=== PATIENT | female | born 1965 | race Caucasian/White ===

== ENCOUNTER → 2018-05-25 07:57 | Outpatient (CLI) | payer OTHER, SELFPAY | PROVIDERS: Visit Provider Obstetrics & Gynecology | DX: Z12.31 Encounter for screening mammogram for malignant neoplasm of breast (principal) | CPT/HCPCS: 77063; 77067 ==

== ENCOUNTER → 2018-06-15 15:47 | Outpatient (CLI) | payer OTHER, SELFPAY ==
[2018-06-15 17:02] LABS: AST(SGOT) 20 U/L (15-37); Alanine Aminotransfer ALT/SGPT 27 U/L (13-56); Albumin, Serum 3.9 g/dL (3.2-5.0); Alkaline Phosphatase 84 U/L (45-117); Amylase 89 U/L (25-115); Lipase 387 U/L (73-393); Protein, Total 6.9 g/dL (6.4-8.2)
== END ==
PROVIDERS: Visit Provider Urology
DX: R10.9 Unspecified abdominal pain (principal)
CPT/HCPCS: 36415; 80076; 82150; 83690

== ENCOUNTER 2019-02-14 21:26 | Inpatient (IN) | payer OTHER, SELFPAY ==
[2019-02-14 21:27] VITALS: BP 115/82; PULSE 80; RESP 18; TEMP 36.3; O2SAT 95; BMI 33.5
--- NOTE | 2019-02-14 22:18 | ED.DCSUM_ITS ---
- ER Visit Summary Date of Service: 02/14/19 Chief Complaint: Epigastric abdominal pain History of Present Illness: The patient is a 53 F history of prior pancreatitis after surgery. She is also had prior renal CA with a partial resection but did not need chemo or radiation. Patient states she is in epigastric abdominal pain for the last 3 days progressively getting worse today. Associated nausea and vomiting. No diarrhea. No melena. No fever. No trauma. No dysuria. States the pain is primarily epigastric and upper abdomen was scattered diffuse now. Similar to her prior pancreatitis. Physical Examination: Middle-aged female no acute distress vital signs are stable afebrile. Initial blood pressure 115/82. Patient does not look septic or toxic. No distress. HEENT exam unremarkable. Neck nontender no lymphadenopathy. Lungs clear to auscultation bilaterally. Heart regular rhythm no murmur. Abdomen soft. Nondistended. Normal bowel sounds. She is tender primarily in the epigastric region. There is no organomegaly or masses. The right lower quadrant is unremarkable. There is no Weir sign or McBurney's point tenderness. No hernias. No masses. No pulsatile masses. There is no signs of obstruction. Patient is moving all 4 extremities. Neurovascular intact. Back is nontender. Neurologically she is awake alert with no focal motor deficits. Test Results: CBC normal white count 8. Hemoglobin 12. Electrolytes normal nor mal creatinine and gap. Liver enzymes normal. Lipase elevated 21,544. Consistent with acute pancreatitis. Emergency Department Course and Treatment: Patient with primary epigastric and upper abdominal pain with a history of prior pancreatitis. Treated with IV fluids due to recent nausea and vomiting. Zofran for nausea and morphine for her pain. Repeat exam patient is doing well at 23:20 PM. She will also be given Toradol for pain. She is reluctant to be given narcotics even though should be given a low dose of morphine. Treatment Plan: I will speak to the hospitalist about admission. Disposition: Admission Impression: Acute abdominal pain secondary to acute pancreatitis History of prior pancreatitis This note was generated with [employer] dictation software. It may contain incorrect words, spelling, and punctuation that were not noted in review of the chart prior to signing ED Disposition - Plan for ED Patient: Referrals: Care Physician,No Primary [Primary Care Provider] -
[2019-02-14 22:44] LABS: Absolute Lymphocyte Count 1.14 X10^3/ul (0.83-4.51); Absolute Neutrophil Count 6.9 X10^3/uL (2.0-7.7); Basophil# 0.02 X10^3/uL; Basophil% 0.2 % (0-1); Eosinophil# 0.07 X10^3/uL; Eosinophils% 0.8 % (0-5); Hematocrit 34.6 % (37-47); Lymphocyte # 1.14 X10^3/ul (4.0); Lymphocyte % 12.8 % (19-41); Mean Corp Hgb Conc 34.7 g/gl (32-36); Mean Corpuscular Hgb 30.4 pg (27.0-32.0); Mean Corpuscular Volume 87.6 fL (81-99); Mean Platelet Vol. 9.7 fl (6.2-12.0); Monocyte# 0.75 X10^3/uL; Monocyte% 8.4 % (0-10); Neutrophil # 6.93 X10^3/uL (2.7-7.7); Neutrophil % 77.7 % (47-70); POSITIVE COUNT NO; POSITIVE DIFFERENTIAL NO; POSITIVE MORPHOLOGY NO; Platelet Count 176 K/mm3 (150-450); RBC Distribution Width CV 11.9 % (11.6-14.6); Red Blood Count 3.95 M/mm3 (4.2-5.4); White Blood Count 8.9 K/mm3 (4.4-11.0)
[2019-02-14] MEDS: Morphine 4 MG/ML Syringe IV (22:45)
[2019-02-14] MEDS: 0.9% Normal Saline 1,000 ML 1000 ML IV (22:45)
[2019-02-14] MEDS: Ondansetron 4 MG/2 ML Vial IV (22:45)
[2019-02-14 22:59] LABS: AST(SGOT) 21 U/L (15-37); Alanine Aminotransfer ALT/SGPT 24 U/L (13-56); Albumin, Serum 3.9 g/dL (3.2-5.0); Alkaline Phosphatase 79 U/L (45-117); Anion Gap 6 (5-15); BUN 15 mg/dL (7-18); BUN/Creat Ratio 15.8 RATIO (10-20); Bilirubin, Direct 0.11 mg/dL (0.00-0.30); Calcium,Total 8.8 mg/dL (8.5-10.1); Chloride 106 mmol/L (98-107); Creatinine, Serum 0.95 mg/dL (0.55-1.02); EST Glomerular Filtration Rate 65 mL/min (>60); Est Glom Filt Rate - Afr Amer 79 mL/min (>60); Estimated Creatinine Clearance 60.92 ml/min; Glucose 107 mg/dL (74-106); Lipase 21544 U/L (73-393); Potassium 3.7 mmol/L (3.5-5.1); Protein, Total 6.9 g/dL (6.4-8.2); Sodium Level 137 mmol/L (136-145)
--- NOTE | 2019-02-14 23:27 | PCM.HP.STD ---
Problem List (1) Pancreatitis Status: Acute Qualifiers: Chronicity: acute Pancreatitis type: unspecified pancreatitis type Acute pancreatitis complication: unspecified Qualified Code(s): K85.90 - Acute pancreatitis without necrosis or infection, unspecified (2) Obesity Status: Chronic Qualifiers: Obesity type: due to excess calories Obesity classification: adult class 1 (BMI 30 - 34.9) (3) Former tobacco use Status: Chronic (4) Renal cell cancer Status: Resolved Qualifiers: Laterality: right Qualified Code(s): C64.1 - Malignant neoplasm of right kidney, except renal pelvis (5) Iron deficiency anemia Status: Chronic Qualifiers: Iron deficiency anemia type: unspecified iron deficiency Qualified Code(s): D50.9 - Iron deficiency anemia, unspecified History of Present Illness Date of Admission: 02/14/19 Chief Complaint: Abdominal pain, nausea, emesis. The patient is a 53 y/o F w/ PMHx: Obesity, Former Tobacco use, Fe Deficiency Anemia, Hx of incidentally found R sided Renal Cell CA s/p partial resection following CT abd for acute pancreatitis 6 years prior following a uterine ablation who presents to the [facility] ED on 02/14/19 with history of recurrent similar onset epigastric severe, sharp, 10/10 abdominal pain, bloating sensation, nausea x 3 days, worsened on day of ED presentation with onset emesis with no fever, chills, diarrhea associated. Prior CT performed to assess pancreas 6 years prior with only noted renal CA findings, no pancreatic findings of note. She notes her cholesterol has been appropriate. She does not recall if she had a GB assessment prior. Denies heavy EtOH intake as possible etiology. Work-up in the ED included T 97.3, heart rate 80, BP 115/82, respiratory rate 18, 95% room air, CBC with WBC 8.9, hemoglobin 12, platelet 176 without market shift, CMP with glucose 107 otherwise not marked appearing, lipase [id number]. In the ED patient ministered normal saline, Zofran, morphine, Toradol. Upon evaluation patient notes she has clinically felt improved following pain regimen but still notably tender with palpation on examination. Past Medical History Past Medical History (Chronic Problems): Chronic Problems (Last Reviewed 07/11/18 @ 07:32 by Wen Kenny) Obesity (Chronic) Former tobacco use (Chronic) Iron deficiency anemia (Chronic) History of nausea and vomiting (Chronic) History of abdominal pain (Chronic) Allergies Penicillins Allergy (Verified 02/14/19 21:30) Unknown Home Medications: Ambulatory Orders Medication Instructions Recorded Iron 1 tab PO DAILY 02/14/19 Multivitamin with Minerals 1 tab PO DAILY 02/14/19 [Multiple Vitamin] Vitamin D3 1 tab PO DAILY 02/14/19 Surgical History: tonsillectomy, - - Right partial nephrectomy for renal cell cancer, uterine ablation, bilateral tubal ligation, tonsillectomy. 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 Smoking Status: Former smoker - Patient notes a cigarette tobacco use his history from teenager to age 24. Tobacco Use: Non-smoker Alcohol: Rare Drugs: None - *Family History Maternal History Items: - - Patient notes a maternal family history of heart disease, specifically valvular heart disease, COPD with tobacco use history. Paternal History Items: - - Patient notes a history of heart disease, coronary disease status post PCI x1, lung cancer with tobacco use history. Review of Systems Constitutional: Reports: Anorexia, Malaise, Weakness, Fatigue. Denies: Chills, Fever, Weight Change HEENT: Denies: Head Aches, Sinus Congestion, Sinus Drainage Cardiovascular: Denies: Chest Pain, Palpitations Respiratory: Denies: Cough, Shortness of breath at rest, Sputum production Gastrointestinal: Reports: Abdominal Pain, Nausea, Vomiting Genitourinary: Denies: Dysuria Musculoskeletal: Denies: Joint Pain, Joint Tenderness Skin: Denies: Rash, Wounds Neurological: Denies: Numbness, Tingling, Focal weakness Psychiatric: Denies: Anxiety, Depression, Homicidal Ideations, Suicidal Ideations Hematologic/ Lymphatic: Reports: Anemia. Denies: Easy Bruising, Easy Bleeding VTE Information - Inpt Only VTE Present on Admission: No VTE Mechan Device Prophylaxis: SCD's VTE Pharm Prophylaxis ordered?: Yes Patient Problems: Active and Suspected Problems (Last Reviewed 07/11/18 @ 07:32 by Wen Kenny) Pancreatitis (Acute) Subjective: Seated upright in the ED bed, fatigued appearance, notes feeling improved since ED regimen but still ongoing discomfort with palpation. Objective: Physical Examination: General: awake, alert, oriented x 3 and cooperative, seated upright in the ED bed in no apparent distress, grimace and discomfort with palpation however. Skin: normal color, turgor, no icterus, cyanosis. HEENT: AT/NC, EOMI, PERRLA, dry MM, no carotid bruits or JVD noted. Lungs: CTA bilaterally, moderate effort, mild decrease BL bases, no rales, ronchi or wheezing. Heart: Regular rate and rhythm; no gallop, rub audible. Abdomen: soft, obese, RUQ and epigastric pain to palpation, no rebound w/ RUQ, mild distention, mildly hyperactive BS, no HSM; however, difficult examination given discomfort. Extremities: no cyanosis, clubbing, or edema. Neurological: patient awake, alert, oriented x 3; cognitive function intact; pupils equally reactive to light and accomodation; cranial nerves II-XII grossly normal, moving all 4 extremities, no focal deficits, strength severely global decrease secondary to acute presentation. Psychiatric: affect appears fatigued, no acute evidence of depressive or anxiety feelings. - Physical Exam Vital Signs Temp Pulse Resp BP Pulse Ox 97.3 F L 80 18 115/82 H 95 02/14/19 21:27 02/14/19 21:27 02/14/19 21:27 02/14/19 21:27 02/14/19 21:27 Oxygen Delivery Method Room Air Weight: 201 lb 15.095 oz Body Mass Index (BMI) 33.5 Laboratory Tests Past 24 Hrs 02/14/19 02/14/19 22:05 22:05 WBC 8.9 RBC 3.95 L Hgb 12.0 Hct 34.6 L MCV 87.6 MCH 30.4 MCHC 34.7 RDW 11.9 RDW Differential 38.0 Plt Count 176 MPV 9.7 Immature Gran % (Auto) 0.100 Neut % (Auto) 77.7 H Lymph % (Auto) 12.8 L [place] % (Auto) 8.4 Eos % (Auto) 0.8 Baso % (Auto) 0.2 Absolute Neuts (auto) 6.9 Absolute Lymphs (auto) 1.14 Total Counted Not Reportable Sodium 137 Potassium 3.7 Chloride 106 Carbon Dioxide 25.0 Anion Gap 6 BUN 15 Creatinine 0.95 Estim Creat Clear Calc 60.92 Est GFR (MDRD) Af Amer 79 Est GFR (MDRD) Non-Af 65 BUN/Creatinine Ratio 15.8 Glucose 107 H Calcium 8.8 Total Bilirubin 0.40 Direct Bilirubin 0.11 AST 21 ALT 24 Alkaline Phosphatase 79 Total Protein 6.9 Albumin 3.9 Globulin 3.0 Lipase 09350 H Assessment/Plan All Active Problems (Last Reviewed 07/11/18 @ 07:32 by Wen Kenny) Pancreatitis (Acute) Renal cell cancer (Resolved) URI, acute (Acute) The patient is a 53 y/o F w/ PMHx: Obesity, Former Tobacco use, Fe Deficiency Anemia, Hx of incidentally found R sided Renal Cell CA s/p partial resection following CT abd for acute pancreatitis 6 years prior following a uterine ablation who presents to the [facility] ED on 02/14/19 with history of recurrent similar onset epigastric severe, sharp, 10/10 abdominal pain, bloating sensation, nausea x 3 days, worsened on day of ED presentation with onset emesis with no fever, chills, diarrhea associated. (1) Acute pancreatitis w/ abdominal pain, N/V: Work-up in the ED included T 97.3, heart rate 80, BP 115/82, respiratory rate 18, 95% room air, CBC with WBC 8.9, hemoglobin 12, platelet 176 without market shift, CMP with glucose 107 otherwise not marked appearing, lipase [id number]. Will admit to [facility], maintain on IVFs, NPO, PPI, IV/po pain control, trend lipase, CMP. Will obtain RUQ US, FLP, denies notable EtOH consumption risk as etiology for pancreatitis. If work-up unremarkable may need to consider outpatient endoscopy. (2) Iron deficiency anemia: Admission hemoglobin 12, stable, continue supplementation but will hold while inpatient given acute presentation. (3) History of R sided renal cell cancer: Incidentally found on CT scan 6 years prior with initial episode of pancreatitis, s/p R partial nephrectomy, no further treatment needed, remission. (4) Obesity: Weight loss and lifestyle changes encouraged. (5) Former tobacco use: Encouraged continued tobacco cessation. (6) DVT prophylaxis: SCDs, Lovenox. Code Visit Inpatient E&M: 36915 Init Hosp L3
[2019-02-14] MEDS: Ketorolac 30 MG/ML Syringe IV (23:35)
--- NOTE | 2019-02-14 23:41 | HP.PCM_ITS ---
Problem List (1) Pancreatitis Status: Acute Qualifiers: Chronicity: acute Pancreatitis type: unspecified pancreatitis type Acute pancreatitis complication: unspecified Qualified Code(s): K85.90 - Acute pancreatitis without necrosis or infection, unspecified (2) Obesity Status: Chronic Qualifiers: Obesity type: due to excess calories Obesity classification: adult class 1 (BMI 30 - 34.9) (3) Former tobacco use Status: Chronic (4) Renal cell cancer Status: Resolved Qualifiers: Laterality: right Qualified Code(s): C64.1 - Malignant neoplasm of right kidney, except renal pelvis (5) Iron deficiency anemia Status: Chronic Qualifiers: Iron deficiency anemia type: unspecified iron deficiency Qualified Code(s): D50.9 - Iron deficiency anemia, unspecified History of Present Illness Date of Admission: 02/14/19 Chief Complaint: Abdominal pain, nausea, emesis. The patient is a 53 y/o F w/ PMHx: Obesity, Former Tobacco use, Fe Deficiency Anemia, Hx of incidentally found R sided Renal Cell CA s/p partial resection following CT abd for acute pancreatitis 6 years prior following a uterine ablation who presents to the [facility] ED on 02/14/19 with history of recurrent similar onset epigastric severe, sharp, 10/10 abdominal pain, bloating sensation, nausea x 3 days, worsened on day of ED presentation with onset emesis with no fever, chills, diarrhea associated. Prior CT performed to assess pancreas 6 years prior with only noted renal CA findings, no pancreatic findings of note. She notes her cholesterol has been appropriate. She does not recall if she had a GB assessment prior. Denies heavy EtOH intake as possible etiology. Work-up in the ED included T 97.3, heart rate 80, BP 115/82, respiratory rate 18, 95% room air, CBC with WBC 8.9, hemoglobin 12, platelet 176 without market shift, CMP with glucose 107 otherwise not marked appearing, lipase [id number]. In the ED patient ministered normal saline, Zofran, morphine, Toradol. Upon evaluation patient notes she has clinically felt improved following pain regimen but still notably tender with palpation on examination. Past Medical History Past Medical History (Chronic Problems): Chronic Problems (Last Reviewed 07/11/18 @ 07:32 by Wen Kenny) Obesity (Chronic) Former tobacco use (Chronic) Iron deficiency anemia (Chronic) History of nausea and vomiting (Chronic) History of abdominal pain (Chronic) Allergies Penicillins Allergy (Verified 02/14/19 21:30) Unknown Home Medications: Ambulatory Orders Medication Instructions Recorded Iron 1 tab PO DAILY 02/14/19 Multivitamin with Minerals 1 tab PO DAILY 02/14/19 [Multiple Vitamin] Vitamin D3 1 tab PO DAILY 02/14/19 Surgical History: tonsillectomy, - - Right partial nephrectomy for renal cell cancer, uterine ablation, bilateral tubal ligation, tonsillectomy. 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 Smoking Status: Former smoker - Patient notes a cigarette tobacco use his history from teenager to age 24. Tobacco Use: Non-smoker Alcohol: Rare Drugs: None - *Family History Maternal History Items: - - Patient notes a maternal family history of heart disease, specifically valvular heart disease, COPD with tobacco use history. Paternal History Items: - - Patient notes a history of heart disease, coronary disease status post PCI x1, lung cancer with tobacco use history. Review of Systems Constitutional: Reports: Anorexia, Malaise, Weakness, Fatigue. Denies: Chills, Fever, Weight Change HEENT: Denies: Head Aches, Sinus Congestion, Sinus Drainage Cardiovascular: Denies: Chest Pain, Palpitations Respiratory: Denies: Cough, Shortness of breath at rest, Sputum production Gastrointestinal: Reports: Abdominal Pain, Nausea, Vomiting Genitourinary: Denies: Dysuria Musculoskeletal: Denies: Joint Pain, Joint Tenderness Skin: Denies: Rash, Wounds Neurological: Denies: Numbness, Tingling, Focal weakness Psychiatric: Denies: Anxiety, Depression, Homicidal Ideations, Suicidal Ideations Hematologic/ Lymphatic: Reports: Anemia. Denies: Easy Bruising, Easy Bleeding VTE Information - Inpt Only VTE Present on Admission: No VTE Mechan Device Prophylaxis: SCD's VTE Pharm Prophylaxis ordered?: Yes Patient Problems: Active and Suspected Problems (Last Reviewed 07/11/18 @ 07:32 by Wen Kenny) Pancreatitis (Acute) Subjective: Seated upright in the ED bed, fatigued appearance, notes feeling improved since ED regimen but still ongoing discomfort with palpation. Objective: Physical Examination: General: awake, alert, oriented x 3 and cooperative, seated upright in the ED bed in no apparent distress, grimace and discomfort with palpation however. Skin: normal color, turgor, no icterus, cyanosis. HEENT: AT/NC, EOMI, PERRLA, dry MM, no carotid bruits or JVD noted. Lungs: CTA bilaterally, moderate effort, mild decrease BL bases, no rales, ronchi or wheezing. Heart: Regular rate and rhythm; no gallop, rub audible. Abdomen: soft, obese, RUQ and epigastric pain to palpation, no rebound w/ RUQ, mild distention, mildly hyperactive BS, no HSM; however, difficult examination given discomfort. Extremities: no cyanosis, clubbing, or edema. Neurological: patient awake, alert, oriented x 3; cognitive function intact; pupils equally reactive to light and accomodation; cranial nerves II-XII grossly normal, moving all 4 extremities, no focal deficits, strength severely global decrease secondary to acute presentation. Psychiatric: affect appears fatigued, no acute evidence of depressive or anxiety feelings. - Physical Exam Vital Signs Temp Pulse Resp BP Pulse Ox 97.3 F L 80 18 115/82 H 95 02/14/19 21:27 02/14/19 21:27 02/14/19 21:27 02/14/19 21:27 02/14/19 21:27 Oxygen Delivery Method Room Air Weight: 201 lb 15.095 oz Body Mass Index (BMI) 33.5 Laboratory Tests Past 24 Hrs 02/14/19 02/14/19 22:05 22:05 WBC 8.9 RBC 3.95 L Hgb 12.0 Hct 34.6 L MCV 87.6 MCH 30.4 MCHC 34.7 RDW 11.9 RDW Differential 38.0 Plt Count 176 MPV 9.7 Immature Gran % (Auto) 0.100 Neut % (Auto) 77.7 H Lymph % (Auto) 12.8 L [place] % (Auto) 8.4 Eos % (Auto) 0.8 Baso % (Auto) 0.2 Absolute Neuts (auto) 6.9 Absolute Lymphs (auto) 1.14 Total Counted Not Reportable Sodium 137 Potassium 3.7 Chloride 106 Carbon Dioxide 25.0 Anion Gap 6 BUN 15 Creatinine 0.95 Estim Creat Clear Calc 60.92 Est GFR (MDRD) Af Amer 79 Est GFR (MDRD) Non-Af 65 BUN/Creatinine Ratio 15.8 Glucose 107 H Calcium 8.8 Total Bilirubin 0.40 Direct Bilirubin 0.11 AST 21 ALT 24 Alkaline Phosphatase 79 Total Protein 6.9 Albumin 3.9 Globulin 3.0 Lipase 35067 H Assessment/Plan All Active Problems (Last Reviewed 07/11/18 @ 07:32 by Wen Kenny) Pancreatitis (Acute) Renal cell cancer (Resolved) URI, acute (Acute) The patient is a 53 y/o F w/ PMHx: Obesity, Former Tobacco use, Fe Deficiency Anemia, Hx of incidentally found R sided Renal Cell CA s/p partial resection following CT abd for acute pancreatitis 6 years prior following a uterine ablation who presents to the [facility] ED on 02/14/19 with history of recurrent similar onset epigastric severe, sharp, 10/10 abdominal pain, bloating sensation, nausea x 3 days, worsened on day of ED presentation with onset emesis with no fever, chills, diarrhea associated. (1) Acute pancreatitis w/ abdominal pain, N/V: Work-up in the ED included T 97.3, heart rate 80, BP 115/82, respiratory rate 18, 95% room air, CBC with WBC 8.9, hemoglobin 12, platelet 176 without market shift, CMP with glucose 107 otherwise not marked appearing, lipase [id number]. Will admit to MS, maintain on IV Fs, NPO, PPI, IV/po pain control, trend lipase, CMP. Will obtain RUQ US, FLP, denies notable EtOH consumption risk as etiology for pancreatitis. If work-up unremarkable may need to consider outpatient endoscopy. (2) Iron deficiency anemia: Admission hemoglobin 12, stable, continue supplementation but will hold while inpatient given acute presentation. (3) History of R sided renal cell cancer: Incidentally found on CT scan 6 years prior with initial episode of pancreatitis, s/p R partial nephrectomy, no further treatment needed, remission. (4) Obesity: Weight loss and lifestyle changes encouraged. (5) Former tobacco use: Encouraged continued tobacco cessation. (6) DVT prophylaxis: SCDs, Lovenox. Code Visit Inpatient E&M: 79886 Init Hosp L3
[2019-02-14 23:59] VITALS: BP 116/65; PULSE 62; RESP 18; TEMP 36.7; O2SAT 97
[2019-02-15] VITALS (9 sets, daily range): BP systolic 83–114; BP diastolic 46–71; PULSE 61–76; RESP 16–18; TEMP 36.6–37.1; O2SAT 94–98; BMI 33.5; BMI 33.6
--- NOTE | 2019-02-15 00:32 | US_ITS ---
STUDY: ABDOMINAL ULTRASOUND - RIGHT UPPER QUADRANT REASON FOR VISIT: Female, 53 years old. History of pancreatitis. Partial right nephrectomy for renal cell carcinoma. TECHNIQUE: Ultrasound evaluation of the right upper quadrant was performed with real-time and static berry-scale imaging. TECHNICAL QUALITY: Adequate. COMPARISON: Comparison is made with prior ultrasound of the right upper quadrant dated June 22, 2012. FINDINGS: Liver: The liver measures 15.7 cm. There is normal echogenicity of the liver. The bile ducts are within normal limits. There is hepatic color flow. The direction of portal flow is hepatopetal. There is no demonstrated mass lesion. Gallbladder: Normal distended gallbladder. The gallbladder wall measures 3.0 mm. There is a negative sonographic Weir's sign. There is no pericholecystic fluid. There are no gallstones. Common Bile Duct (C.B.D.): The common bile duct measures 4.0 mm. Pancreas: Normal size of the head, body and tail of the pancreas. There is normal echogenicity of the pancreas. There is no demonstrated pancreatic mass or cyst. Right Kidney: Normal size of the right kidney. The right kidney measures 10.3 cm x 4.4 cm x 3.6 cm. Normal renal cortex. The right cortex measures 1.3 cm. There is no demonstrated renal mass or cyst. There is no right hydronephrosis. US/Gallbladder IMPRESSION: Normal right upper quadrant ultrasound examination. Electronically Signed: Grady Carcamo, at 8:38 EDT , Service support ,
--- NOTE | 2019-02-15 00:38 | NURSING ---
Radiology called wanting to know if the stat ultrasound needed to be done tonight or if it could wait until the am. I spoke with Dr. Eng and she stated it could wait until the am. Radiology notified.
[2019-02-15] MEDS: proMETHazine 25 MG/ML Syringe 6.25 MG IV (01:07)
[2019-02-15] MEDS: 0.9% Normal Saline 1,000 ML 999 ML IV (01:16)
[2019-02-15] MEDS: HYDROcodone Bitartrate/Apap 5/325 Tablet PO ×3 (01:18→07:30)
[2019-02-15] MEDS: 0.9% Normal Saline 1,000 ML 150 ML IV ×4 (02:18→23:58)
[2019-02-15 05:46] LABS: Absolute Lymphocyte Count 1.38 X10^3/ul (0.83-4.51); Absolute Neutrophil Count 3.6 X10^3/uL (2.0-7.7); Basophil# 0.01 X10^3/uL; Basophil% 0.2 % (0-1); Eosinophil# 0.08 X10^3/uL; Eosinophils% 1.4 % (0-5); Hematocrit 30.5 % (37-47); Lymphocyte # 1.38 X10^3/ul (4.0); Lymphocyte % 24.6 % (19-41); Mean Corp Hgb Conc 32.8 g/gl (32-36); Mean Corpuscular Hgb 29.6 pg (27.0-32.0); Mean Corpuscular Volume 90.2 fL (81-99); Monocyte# 0.54 X10^3/uL; Monocyte% 9.6 % (0-10); Neutrophil # 3.57 X10^3/uL (2.7-7.7); Neutrophil % 63.8 % (47-70); Platelet Count 155 K/mm3 (150-450); RBC Distribution Width CV 11.8 % (11.6-14.6); RBC Distribution Width SD 37.7 fl (35.1-43.9); Red Blood Count 3.38 M/mm3 (4.2-5.4); White Blood Count 5.6 K/mm3 (4.4-11.0)
[2019-02-15] MEDS: Ketorolac 30 MG/ML Syringe IV ×3 (05:53→22:44)
[2019-02-15] MEDS: 0.9% NaCl Peripheral Flush Adult/Peds IV ×2 (05:53→14:17)
[2019-02-15 05:58] LABS: POSITIVE COUNT NO; POSITIVE DIFFERENTIAL NO; POSITIVE MORPHOLOGY NO
[2019-02-15 06:11] LABS: ALB/GLOB Ratio 1.3 RATIO (0.9-2.4); AST(SGOT) 19 U/L (15-37); Alanine Aminotransfer ALT/SGPT 20 U/L (13-56); Alkaline Phosphatase 54 U/L (45-117); Anion Gap 5 (5-15); BUN 11 mg/dL (7-18); BUN/Creat Ratio 14.1 RATIO (10-20); Calcium,Total 7.7 mg/dL (8.5-10.1); Chloride 114 mmol/L (98-107); Cholesterol 204 mg/dL (200); Creatinine, Serum 0.78 mg/dL (0.55-1.02); EST Glomerular Filtration Rate 81 mL/min (>60); Est Glom Filt Rate - Afr Amer 98 mL/min (>60); Estimated Creatinine Clearance 74.19 ml/min; Globulin 2.3 g/dL (2.2-4.2); Glucose 99 mg/dL (74-106); High Density Lipoprotein 55 mg/dL; Lipase 6378 U/L (73-393); Potassium 3.8 mmol/L (3.5-5.1); Protein, Total 5.3 g/dL (6.4-8.2); Sodium Level 142 mmol/L (136-145); Triglycerides 94 mg/dL; Very Low Density Lipoprotein 19 mg/dL (5-40)
--- NOTE | 2019-02-15 07:52 | PN_ITS ---
Patient Problems: Active and Suspected Problems (Last Reviewed 07/11/18 @ 07:32 by Wen Kenny) Pancreatitis (Acute) Subjective: Patient is a 53-year-old lady with past medical history sent in for right-sided renal cell carcinoma status post resection who presented with abdominal discomfort with associated intractable nausea vomiting and assessment of acute pancreatitis made admitted to a regular nursing floor for management. 02/15/2019: Patient seen this a.m. complains of abdominal discomfort as well as pain radiating to the back Objective: GENERAL: cooperative HEENT: Atraumatic; moist oral mucosa EYES; Anicteric, Normal Conjunctiva NECK; supple, normal thyroid, no distended JVD. RESPIRATORY: Diminished to auscultation bilaterally, CARDIOVASCULAR: Regular S1 S2, no audible murmurs GI: soft, normoactive bowel sounds, : No Renal angle tenderness; EXTREMITIES: No edema, no clubbing, no cyanosis. MUSCULOSKELETAL: No Joint Tenderness; NEURO: Awake; no lateralizing signs. SKIN: No Rash PSYCH; Normal affect Vitals/I&O's: Vital Signs Temp Pulse Resp BP Pulse Ox 97.8 F 63 16 90/57 L 96 02/15/19 07:28 02/15/19 07:28 02/15/19 07:28 02/15/19 07:30 02/15/19 07:28 Oxygen Delivery Method Room Air Weight: 91.6 kg Body Mass Index (BMI) 33.5 Intake and Output for Last 24 Hours 02/13/19 02/14/19 02/15/19 23:59 23:59 23:59 Intake Total 1616 / 1616 Balance 1616 / 1616 Laboratory Results 02/14/19 22:05: WBC 8.9, RBC 3.95 L, Hgb 12.0, Hct 34.6 L, MCV 87.6, MCH 30.4, MCHC 34.7, RDW 11.9, RDW Differential 38.0, Plt Count 176, MPV 9.7, Immature Gran % (Auto) 0.100, Neut % (Auto) 77.7 H, Lymph % (Auto) 12.8 L, [place] % (Auto) 8.4, Eos % (Auto) 0.8, Baso % (Auto) 0.2, Absolute Neuts (auto) 6.9, Absolute Lymphs (auto) 1.14, Total Counted Not Reportable 02/14/19 22:05: Sodium 137, Potassium 3.7, Chloride 106, Carbon Dioxide 25.0, Anion Gap 6, BUN 15, Creatinine 0.95, Estim Creat Clear Calc 60.92, Est GFR (MDRD) Af Amer 79, Est GFR (MDRD) Non-Af 65, BUN/Creatinine Ratio 15.8, Glucose 107 H, Calcium 8.8, Total Bilirubin 0.40, Direct Bilirubin 0.11, AST 21, ALT 24, Alkaline Phosphatase 79, Total Protein 6.9, Albumin 3.9, Globulin 3.0, Lipase 39987 H 02/15/19 05:08: WBC 5.6, RBC 3.38 L, Hgb 10.0 L, Hct 30.5 L, MCV 90.2, MCH 29.6, MCHC 32.8, RDW 11.8, RDW Differential 37.7, Plt Count 155, MPV 10.0, Immature Gran % (Auto) 0.400, Neut % (Auto) 63.8, Lymph % (Auto) 24.6, Limestone % (Auto) 9.6, Eos % (Auto) 1.4, Baso % (Auto) 0.2, Absolute Neuts (auto) 3.6, Absolute Lymphs (auto) 1.38, Total Counted Not Reportable 02/15/19 05:08: Sodium 142, Potassium 3.8, Chloride 114 H, Carbon Dioxide 23.0, Anion Gap 5, BUN 11, Creatinine 0.78, Estim Creat Clear Calc 74.19, Est GFR (MDRD) Af Amer 98, Est GFR (MDRD) Non-Af 81, BUN/Creatinine Ratio 14.1, Glucose 99, Calcium 7.7 L, Total Bilirubin 0.30, AST 19, ALT 20, Alkaline Phosphatase 54, Total Protein 5.3 L, Albumin 3.0 L, Globulin 2.3, Albumin/Globulin Ratio 1.3, Triglycerides 94, Cholesterol 204 H, LDL Cholesterol 130, VLDL Cholesterol 19, HDL Cholesterol 55, Lipase 6378 H Current Medications Acetaminophen (Tylenol) 650 mg PO Q6H PRN PRN PRN Reason: Non-cardiac pain (mod-severe) Hydrocodone Bitart/Acetaminophen ([place] 5mg-325mg) 1 - 2 tablet PO Q4H PRN PRN PRN Reason: MOD-SEVERE PAIN (4-07/19) Last Admin: 02/15/19 07:30 Dose: 1 tablet Al Hydroxide/Mg Hydroxide (Mylanta Ii) 15 - 30 ml PO Q4H PRN PRN PRN Reason: INDIGESTION Albuterol Sulfate (Ventolin Aerosols) 2.5 mg INHALATION Q2H PRN PRN PRN Reason: dyspnea, wheezing Dextrose (D50w Syringe) 0 gm IV X1 PRN; Protocol PRN Reason: Hypoglycemia Enoxaparin Sodium (Lovenox) 40 mg SC DAILY@1000 DANELLE Glucagon () 1 mg IM .X1 PRN PRN Reason: Hypoglycemia Hydralazine HCl (Apresoline Iv) 10 mg IV Q4H PRN PRN PRN Reason: SBP > 160 Sodium Chloride () 1,000 mls @ 150 mls/hr IV .Q6H40M DANELLE Last Admin: 02/15/19 02:18 Dose: 150 mls/hr Pantoprazole Sodium 40 mg/ (Sodium Chloride) 110 mls @ 330 mls/hr IV Q12 [facility] Last Admin: 02/15/19 02:18 Dose: 330 mls/hr Ketorolac Tromethamine (Toradol) 30 mg IV Q8 [facility] Stop: 02/16/19 14:01 Last Admin: 02/15/19 05:53 Dose: 30 mg Melatonin (Melatonin) 3 mg PO QHS PRN PRN PRN Reason: INSOMNIA Morphine Sulfate () 1 - 2 mg IV Q4H PRN PRN PRN Reason: PAIN Ondansetron HCl (Zofran) 4 mg IV Q8H PRN PRN PRN Reason: NAUSEA/VOMITING Promethazine HCl (Phenergan) 6.25 mg IV Q4H PRN PRN PRN Reason: NAUSEA/VOMITING Last Admin: 02/15/19 01:07 Dose: 6.25 mg Sodium Chloride () 5 - 15 ml IV UD PRN PRN Reason: SALINE FLUSH Last Admin: 02/15/19 05:53 Dose: 10 ml Temazepam (Restoril) 15 mg PO QHS PRN PRN PRN Reason: INSOMNIA Medical Necessity - Tobacco Use Smoking Status: Former smoker - Patient notes a cigarette tobacco use his h istory from teenager to age 24. Tobacco Use: Non-smoker Assessment/Plan All Active Problems (Last Reviewed 07/11/18 @ 07:32 by Wen Kenny) Pancreatitis (Acute) Renal cell cancer (Resolved) URI, acute (Acute) Patient is a 53-year-old lady with past medical history sent in for right-sided renal cell carcinoma status post resection who presented with abdominal discomfort with associated intractable nausea vomiting and assessment of acute pancreatitis made admitted to a regular nursing floor for management. 1. Acute pancreatitis patient has been admitted to regular nursing floor. Patient currently being managed with bowel rest, IV fluids antinausea medication pain meds. As part of her management ordered ultrasound of the right upper quadrant 2. Right renal carcinoma status post resection in 2012 patient has since remained in remission 3. Iron deficiency anemia 4. Obesity with BMI of 33.6; weight loss advised 5. Previous history of tobacco use 6. DVT prophylaxis: Patient is on enoxaparin Active Medications Acetaminophen (Tylenol) 650 mg PO Q6H PRN PRN PRN Reason: Non-cardiac pain (mod-severe) Hydrocodone Bitart/Acetaminophen ([place] 5mg-325mg) 1 - 2 tablet PO Q4H PRN PRN PRN Reason: MOD-SEVERE PAIN (4-10/10) Last Admin: 02/15/19 07:30 Dose: 1 tablet Al Hydroxide/Mg Hydroxide (Mylanta Ii) 15 - 30 ml PO Q4H PRN PRN PRN Reason: INDIGESTION Albuterol Sulfate (Ventolin Aerosols) 2.5 mg INHALATION Q2H PRN PRN PRN Reason: dyspnea, wheezing Dextrose (D50w Syringe) 0 gm IV X1 PRN; Protocol PRN Reason: Hypoglycemia Enoxaparin Sodium (Lovenox) 40 mg SC DAILY@1000 DANELLE Glucagon () 1 mg IM .X1 PRN PRN Reason: Hypoglycemia Hydralazine HCl (Apresoline Iv) 10 mg IV Q4H PRN PRN PRN Reason: SBP > 160 Sodium Chloride () 1,000 mls @ 150 mls/hr IV .Q6H40M DANELLE Last Admin: 02/15/19 02:18 Dose: 150 mls/hr Pantoprazole Sodium 40 mg/ (Sodium Chloride) 110 mls @ 330 mls/hr IV Q12 DANELLE Last Admin: 02/15/19 02:18 Dose: 330 mls/hr Ketorolac Tromethamine (Toradol) 30 mg IV Q8 DANELLE Stop: 02/16/19 14:01 Last Admin: 02/15/19 05:53 Dose: 30 mg Melatonin (Melatonin) 3 mg PO QHS PRN PRN PRN Reason: INSOMNIA Morphine Sulfate () 1 - 2 mg IV Q4H PRN PRN PRN Reason: PAIN Ondansetron HCl (Zofran) 4 mg IV Q8H PRN PRN PRN Reason: NAUSEA/VOMITING Promethazine HCl (Phenergan) 6.25 mg IV Q4H PRN PRN PRN Reason: NAUSEA/VOMITING Last Admin: 02/15/19 01:07 Dose: 6.25 mg Sodium Chloride () 5 - 15 ml IV UD PRN PRN Reason: SALINE FLUSH Last Admin: 02/15/19 05:53 Dose: 10 ml Temazepam (Restoril) 15 mg PO QHS PRN PRN PRN Reason: INSOMNIA Code Visit Inpatient E&M: 14626 Subs Hosp L3
[2019-02-15] MEDS: Enoxaparin 40 MG/0.4 ML Syringe SC (09:42)
--- NOTE | 2019-02-15 12:00 | CASEMGMT ---
RN CM Assessment Presentation: Intro role of CM and purpose of RN CM assessment. Demographics, PCP and Pharmacy verified. PCP: NO PCP. List of [facility] PCP's given for [facility]. Pt states she was pt of Dr. Carmichael, [facility], however this physician changed to [facility]. RN CM discussed physicians @ [facility] not part of [facility] if pt wished to continue with this practice. Pt will review list and initiate finding new PCP. Specialists: none [facility]erred [facility] Insurance: MMO Prescription Benefit: yes LNOK: SisterNatalia Living Arrangements: Lives independently, no care needs identified. Pt works and cares for own home, cooking, cleaning. Transportation: drives DME: none HHC: none Patient DC goals: Home DC PLAN: Anticipate Home on discharge Raya ROMAN RN ACM
[2019-02-16 03:30] VITALS: BP 104/51; PULSE 65; RESP 16; TEMP 36.6; O2SAT 95
[2019-02-16 06:16] LABS: Absolute Lymphocyte Count 1.09 X10^3/ul (0.83-4.51); Absolute Neutrophil Count 3.2 X10^3/uL (2.0-7.7); Basophil# 0.02 X10^3/uL; Basophil% 0.4 % (0-1); Eosinophils% 2.1 % (0-5); Hemoglobin 9.8 g/dl (12.0-15.0); Lymphocyte # 1.09 X10^3/ul (4.0); Lymphocyte % 22.4 % (19-41); Mean Corp Hgb Conc 32.7 g/gl (32-36); Mean Corpuscular Hgb 29.7 pg (27.0-32.0); Mean Corpuscular Volume 90.9 fL (81-99); Mean Platelet Vol. 9.1 fl (6.2-12.0); Monocyte# 0.45 X10^3/uL; Monocyte% 9.2 % (0-10); Neutrophil % 65.7 % (47-70); Platelet Count 127 K/mm3 (150-450); RBC Distribution Width SD 37.9 fl (35.1-43.9); White Blood Count 4.9 K/mm3 (4.4-11.0)
[2019-02-16 06:22] LABS: POSITIVE COUNT NO; POSITIVE DIFFERENTIAL NO; POSITIVE MORPHOLOGY NO
[2019-02-16 06:36] LABS: ALB/GLOB Ratio 1.1 RATIO (0.9-2.4); AST(SGOT) 16 U/L (15-37); Alanine Aminotransfer ALT/SGPT 21 U/L (13-56); Albumin, Serum 2.8 g/dL (3.2-5.0); Alkaline Phosphatase 51 U/L (45-117); Anion Gap 6 (5-15); BUN 8 mg/dL (7-18); BUN/Creat Ratio 11.3 RATIO (10-20); Calcium,Total 7.8 mg/dL (8.5-10.1); Chloride 118 mmol/L (98-107); EST Glomerular Filtration Rate 92 mL/min (>60); Est Glom Filt Rate - Afr Amer 111 mL/min (>60); Estimated Creatinine Clearance 82.67 ml/min; Globulin 2.5 g/dL (2.2-4.2); Glucose 80 mg/dL (74-106); Lipase 1525 U/L (73-393); Potassium 3.9 mmol/L (3.5-5.1); Protein, Total 5.3 g/dL (6.4-8.2); Sodium Level 146 mmol/L (136-145)
[2019-02-16] MEDS: 0.9% Normal Saline 1,000 ML 150 ML IV (06:38)
--- NOTE | 2019-02-16 08:20 | DCINST_ITS ---
- Discharge Diagnoses Current Active Problems: Current Active and Chronic Problems (Last Reviewed 07/11/18 @ 07:32 by Wen Kenny) Pancreatitis (Acute) Obesity (Chronic) Former tobacco use (Chronic) Iron deficiency anemia (Chronic) You will use the following diet at home:: No restrictions Allergies/Adverse Reactions: Allergies Penicillins Allergy (Verified 02/14/19 21:30) Unknown Medications to take at Discharge Iron 1 tab PO DAILY 02/14/19 Multivitamin with Minerals [Multiple Vitamin] 1 tab PO DAILY 02/14/19 Vitamin D3 1 tab PO DAILY 02/14/19 Primary Care Physician: Care Physician,No Primary [Primary Care Provider] - Please follow up with your Primary Care Physician in: Primary care physician to have IgG4 check Test Results: Test results from this visit will be discussed in further detail at your follow- up appointment, if applicable. Proposed Discharge Date: 02/16/19
--- NOTE | 2019-02-16 08:22 | DS.PCM_ITS ---
Discharge Date and Diagnosis - Problem List Patient Problems: Active and Suspected Problems (Last Reviewed 07/11/18 @ 07:32 by Wen Kenny) Pancreatitis (Acute) Date of Admission: 02/14/19 Date of Discharge: 02/16/19 - Primary Discharge Diagnosis Active and Suspected Problems (Last Reviewed 07/11/18 @ 07:32 by Wen Kenny) Pancreatitis (Acute) - Secondary Discharge Diagnosis Chronic Problems (Last Reviewed 07/11/18 @ 07:32 by Wen Kenny) Obesity (Chronic) Former tobacco use (Chronic) Iron deficiency anemia (Chronic) History of nausea and vomiting (Chronic) History of abdominal pain (Chronic) Hospital Course and Treatment Imaging Results: Clinical Impression(s) from Imaging Studies Gallbladder Ultrasound 02/15/19 00:32 IMPRESSION: Normal right upper quadrant ultrasound examination. Electronically Signed: Grady Carcamo, at 8:38 EDT , Service support , Summary of Care Provided: Patient is a 53-year-old lady with past medical history sent in for right-sided renal cell carcinoma status post resection who presented with abdominal discomfort with associated intractable nausea vomiting and assessment of acute pancreatitis made admitted to a regular nursing floor for management. 1. Acute pancreatitis patient has been admitted to regular nursing floor. Patient currently being managed with bowel rest, IV fluids antinausea medication pain meds. As part of her management ordered ultrasound of the right upper quadrant patient ultrasound failed to demonstrate the presence of any stones. Patient did improve with conservative management instructed to follow-up with PCP to have IgG4 checked to rule out inflammatory cause of her pancreatitis 2. Right renal carcinoma status post resection in 2012 patient has since remained in remission 3. Iron deficiency anemia 4. Obesity with BMI of 33.6; weight loss advised 5. Previous history of tobacco use 6. DVT prophylaxis: Patient is on enoxaparin Patient Problems: Active and Suspected Problems (Last Reviewed 07/11/18 @ 07:32 by Wen Kenny) Pancreatitis (Acute) Objective: GENERAL: cooperative HEENT: Atraumatic; moist oral mucosa EYES; Anicteric, Normal Conjunctiva NECK; supple, normal thyroid, no distended JVD. RESPIRATORY: Diminished to auscultation bilaterally, CARDIOVASCULAR: Regular S1 S2, no audible murmurs GI: soft, normoactive bowel sounds, : No Renal angle tenderness; EXTREMITIES: No edema, no clubbing, no cyanosis. MUSCULOSKELETAL: No Joint Tenderness; NEURO: Awake; no lateralizing signs. SKIN: No Rash PSYCH; Normal affect - Physical Exam Vital Signs Temp Pulse Resp BP Pulse Ox 97.9 F 65 16 104/51 L 95 02/16/19 03:30 02/16/19 03:30 02/16/19 03:30 02/16/19 03:30 02/16/19 03:30 Oxygen Delivery Method Room Air Weight: 91.6 kg Body Mass Index (BMI) 33.5 Intake and Output for Last 24 Hours 02/14/19 02/15/19 02/16/19 23:59 23:59 23:59 Intake Total 4670 / 4670 1155 / 1155 Output Total 1250 / 1250 350 / 350 Balance 3420 / 3420 805 / 805 Laboratory Tests Past 24 Hrs 02/16/19 02/16/19 06:05 06:05 WBC 4.9 RBC 3.30 L Hgb 9.8 L Hct 30.0 L MCV 90.9 MCH 29.7 MCHC 32.7 RDW 12.0 RDW Differential 37.9 Plt Count 127 L MPV 9.1 Immature Gran % (Auto) 0.200 Neut % (Auto) 65.7 Lymph % (Auto) 22.4 Schleicher % (Auto) 9.2 Eos % (Auto) 2.1 Baso % (Auto) 0.4 Absolute Neuts (auto) 3.2 Absolute Lymphs (auto) 1.09 Total Counted Not Reportable Sodium 146 H Potassium 3.9 Chloride 118 H Carbon Dioxide 22.0 Anion Gap 6 BUN 8 Creatinine 0.70 Estim Creat Clear Calc 82.67 Est GFR (MDRD) Af Amer 111 Est GFR (MDRD) Non-Af 92 BUN/Creatinine Ratio 11.3 Glucose 80 Calcium 7.8 L Magnesium 2.0 Total Bilirubin 0.30 AST 16 ALT 21 Alkaline Phosphatase 51 Total Protein 5.3 L Albumin 2.8 L Globulin 2.5 Albumin/Globulin Ratio 1.1 Lipase 1525 H Discharge Diet: No Restrictions Discharge Activity: Return to Normal Activity Home Medications: Medications to take at Discharge Iron 1 tab PO DAILY 02/14/19 Multivitamin with Minerals [Multiple Vitamin] 1 tab PO DAILY 02/14/19 Vitamin D3 1 tab PO DAILY 02/14/19 Primary Care Physician: Care Physician,No Primary [Primary Care Provider] - Please follow up with your Primary Care Physician in: Primary care physician to have IgG4 check Disposition: Home Minutes spent on discharge:: 36 Patient Condition:: Stable Medical Necessity - Tobacco Use Smoking Status: Former smoker Tobacco Use: Non-smoker Meaningful Use Info Meaningful Use Diagnoses (Choose all that apply): None applicable Code Visit Inpatient E&M: 63176 Disch Hosp
[2019-02-16 09:14] VITALS: BP 119/71; PULSE 63; RESP 18; TEMP 36.9; O2SAT 98
--- NOTE | 2019-02-19 15:06 | CASEMGMT ---
STACI CM DC PHONE CALL DC DATE: 02/16/19 DC Disposition: Home LACE/STRATA: 07/12 Attempted call to pt's phone. No answer. Raya HARPERN RN ACM
== END 2019-02-16 11:34 | disposition home or self-care (01) | DRG 440 ==
LOC: ED 22:58 → MS3 23:43
PROVIDERS: Admitting Provider Family Medicine; Emergency Provider Emergency Medicine; Visit Provider Internal Medicine
DX: K85.90 Acute pancreatitis without necrosis or infection, unspecified (principal); D50.9 Iron deficiency anemia, unspecified; E66.9 Obesity, unspecified; Z68.33 Body mass index [BMI] 33.0-33.9, adult; Z87.891 Personal history of nicotine dependence; Z90.5 Acquired absence of kidney; Z85.528 Personal history of other malignant neoplasm of kidney
CPT/HCPCS: 36415; 76705; 80048; 80053; 80061; 80076; 83690; 83735; 85025; 99284; J7030; A4216; J2405

== ENCOUNTER → 2019-03-06 | Outpatient (CLI) | payer OTHER, SELFPAY ==
[2019-02-15 00:34] VITALS: BMI 33.5
--- NOTE | 2019-03-06 10:54 | NM_ITS ---
CLINICAL: 53-year-old female with reported history of right upper quadrant abdominal pain and nausea. RADIONUCLIDE HEPATOBILIARY SCINTIGRAPHY COMPARISON: Abdominal ultrasound report 02/15/2019 FINDINGS: Following the intravenous administration of 5.1 mCi of 99m Tc Mebrofenin, hepatobiliary images reveal: 1. Relatively prompt and homogeneous radiopharmaceutical concentration is noted by a normal sized liver. No parenchymal defects are identified. 2. Gallbladder activity is identified at 20 minutes post radiopharmaceutical administration. 3. Small intestinal tract is observed at 15 minutes following tracer injection. 4. Washout of the radiopharmaceutical by the hepatic parenchyma appears qualitatively normal. Cholecystokinin (0.02 ug/kg) was administered intravenously over a 30-minute period. The post CCK gallbladder ejection fraction calculated at 20 minutes following Cholecystokinin administration was noted to be 88.0 % (normal greater than 35%). During 30 minutes of post CCK imaging, there is no scintigraphic evidence of reflux of the radiotracer into the common hepatic duct or refilling of the gallbladder. MT/Hepatobilliary Img w/Pharm Int IMPRESSION: 1. NORMAL 99m Tc Mebrofenin hepatobiliary imaging examination with Cholecystokinin. A. A gallbladder ejection fraction calculated to be greater than 35% following the administration of Cholecystokinin makes the probability of functional hepatobiliary disease (gallbladder and/or sphincter of Oddi dyskinesia) and/or organic hepatobiliary disease (chronic acalculous cholecystitis and/or cystic duct syndrome) to be low. (Kathy Menon et al, Journal of Nuclear Medicine 32:1695, 1990). Electronically Signed: Juan C Langford DO at 22:08 EDT Tel , Service support ,
== END | disposition home or self-care (01) ==
LOC: NM 10:52
DX: R10.9 Unspecified abdominal pain (principal)
CPT/HCPCS: 78227; A9537; J2805

== ENCOUNTER 2019-05-04 09:41 | Day surgery (SDC) | payer OTHER, SELFPAY ==
--- NOTE | 2019-04-09 03:46 | HP_ITS ---
Intake Vital Signs 04/09/19 Body Mass Index (BMI) 33.5 04/09/19 Height 5 ft 5 in 04/09/19 Weight: 195 lb 04/09/19 Body Mass Index (BMI) 32.4 04/09/19 Blood Pressure 116/73 04/09/19 Blood Pressure Location Rt brachial 04/09/19 Blood Pressure Position Sitting 04/09/19 Respiratory Rate 18 Intake Visit Reasons: C-Scope Consult, loose bowels, hx of pancreatitis Chief Complaint: Nausea, Vomitting, Severe ABD pain Nursing Techn Required: No Is patient in pain?: No Allergies Penicillins Allergy (Verified 04/09/19 14:51) Unknown Medications Iron 1 tab PO DAILY 02/14/19 [History Confirmed 04/09/19] Multivitamin with Minerals [Multiple Vitamin] 1 tab PO DAILY 02/14/19 [History Confirmed 04/09/19] Vitamin D3 1 tab PO DAILY 02/14/19 [History Confirmed 04/09/19] PFSH Medical History Pancreatitis (Acute) Obesity (Chronic) Former tobacco use (Chronic) Renal cell cancer (Resolved) Iron deficiency anemia (Chronic) URI, acute (Acute) History of nausea and vomiting (Chronic) History of abdominal pain (Chronic) Surgical History Status post endometrial ablation (Acute) s/p kidney cancer (Acute) Family History (Updated 04/09/19 @ 14:50 by Jessica Reina) Brother Asthma Malignant hyperthermia due to anesthesia Hypertension Grandfather Colon cancer Mother Heart disease Thyroid disorder Sister Breast cancer Hypertension Thyroid disorder Father Bleeding disorder Social History (Updated 04/09/19 @ 15:46 by Anders Gabriel MD) Smoking Status: Former smoker alcohol intake: current alcohol intake frequency: holidays/special occasions only HPI HPI HPI: ALVINO ESPITIA, is a 53 F who presents to the office today for HPI HPI Surgical H&P: Yes HPI: ALVINO ESPITIA, is a 53 F who presents to the office today for ongoing feeling of nausea and need for screening colonoscopy. The patient reflects that she was hospitalized at the [facility] because of severe abdominal pain and nausea. That hospitalization was February 2019 through February 16, 2019. A diagnosis of acute pancreatitis was made based upon a elevated lipase level. No CT scan was obtained. Right upper quadrant ultrasound was normal. Hepatobiliary scan was normal. The patient states that she then went to [facility] who performed an upper endoscopy identifying by verbal report what sounds like a duodenal ulcer. Nexium therapy was recommended however the patient did not take that treatment. She sees a holistic person who recommended drops. A mucosal swab was obtained and from this was suggested be a pancreatic cyst and a common bile duct stone. The patient has a history of right renal cancer treated by with a partial right nephrectomy. By patient report she is disease-free. She does not currently have a primary care physician She still has problems with nausea that has not improved despite the holistic drops. She has a chronic iron deficiency anemia. She is on iron therapy twice daily. As of February 16, 2019 hemoglobin is 9.8 with hematocrit of 30 and a platelet count of 127,000. ROS General General: Yes fatigue; no weight change, appetite, colon cancer, breast cancer or weakness HEENT HEENT: No difficulty swallowing, eye injury, eye surgery, swollen glands or hoarseness Endo Endocrine: No thyroid disease, diabetes mellitus, thyroid cancer, Hair loss, heat intolerance or cold intolerance Skin Skin: No rash or changing moles Breast Breast: No left breast lump, right breast lump, nipple discharge, breast pain, abnormal mammogram, abnormal US or breast enlargement Musc Musculoskeletal: Yes back problems and arthritis; no rheumatoid arthritis, gout or joint pain Cardio Cardiovascular: No murmur, pacemaker, heart disease, atrial fibrillation, high blood pressure, heart attack, heart stent, palpitations, shortness of breat with exertion or chest pain Psych Psychiatric: Yes anxiety; no depression or hearing voices Resp Respiratory: No shortness of breath, No sleep apnea, No cough, No COPD, No asthma, No emphysema, No wheezing Gastro Gastrointestinal: No abdominal pain, Yes nausea or vomiting, Yes diarrhea, No constipation, No blood in stool, Yes acid reflux, Yes hemorrhoids, No ulcers, No gallbladder problem, No black,tarry stools Anuel Hematologic: No blood thinners, No blood disorders, No bleeding, Yes anemia, No blood clots Neuro Neurologic: No system reviewed and no additional complaints, except as docu, No as per HPI, No abnormal walking, No abnormal hearing, No abnormal movements, No abnormal speech, No behavioral changes, No burning sensations, No confusion, No seizure-like activity, No unsteadiness, No dizziness, No localized weakness, No frequent falls, No headache(s), No lack of coordination, No loss of vision, No memory loss, Yes numbness, No other visual disturbances, No radiating pain, No restless legs, No sensory deficit, No fainting, Yes tingling, No tremor(s), No weakness, No other Exam Const General: cooperative, healthy appearing, comfortable, no acute distress Nutritional Appearance: obese Orientation: alert, awake HENUT Head: normal to inspection Chest Chest palpation & inspection: normal inspection of the chest Breast Palpation: No nipple discharge Resp Effort & Inspection: normal respiratory effort Auscultation: clear to auscultation bilaterally Cardio Rate: regular rate Rhythm: regular rhythm Heart Sounds: no murmurs GI Palpation: soft, no hepatosplenomegaly Auscultation: normal bowel sounds Neuro Cognition: normal cognition Extrem General: no calf tenderness bilaterally Psych Affect: normal affect Assessment & Plan Problems 1. Screening for intestinal cancer Z12.10 Plan I recommended the patient a screening colonoscopy with possible biopsy or polypectomy as indicated. She is aware of the technique, benefit, risks, alternatives. She has had an opting to ask and have questions answered. We will schedule and proceed at her direction. I anticipate using monitored anesthesia care. I would like to obtain records from her previous upper endoscopy performed in [place]. The patient has not been on standard medical therapy for any upper GI findings. If she actually had findings of the duodenal ulceration then consideration for request for utilization of the Nexium as previously prescribed a repeat upper endoscopy might be pertinent. She has had an opting to ask and have questions answered. She is comfortable with proceeding as noted. Sister: Natalia Vishal Gabriel M.D., F.A.C.S. Coding Level of Care Code Off vis,new,level 4 Diagnoses Screening for intestinal cancer Z12.10 04/09/19 1546 <Electronically signed by Anders workman MD> Date _ Anders Gabriel MD I have re-examined the patient. There are no clinical changes since date of exam.
[2019-04-09 14:52] VITALS: BMI 33.5
[2019-05-04 10:45] VITALS: BP 108/73; PULSE 67; RESP 18; TEMP 36.6; O2SAT 99; BMI 32.1
--- NOTE | 2019-05-04 11:00 | EGD_PTH ---
PATIENT: ALVINO ESPITIA LOC: EN U#:[id number] AGE/SX: 53/F ROOM: RE05/04/[address]: Dr. Anders Gabriel MD : 1965 BED: DIS: 05/04/2019 SPEC #: [id number] RECD: 05/04/19 12:16 STATUS: LISA QUIANA #: [id number] CAMILO: 05/04/19 11:[address]: Anders Gabriel DEPT: SURGICAL PATHOLOGY RECD BY: Sandra Roper ENTERED: 05/04/19 13:52 SP TYPE: EGD BIOPSY OT DR: No Primary Care Phys Tissues: A - Duodenum, NOS B - Gastric mucous membrane C - Esophagus, NOS Procedures: Surgery Specimen Level IV HEADER OPERATION: Colonoscopy, EGD ([facility] [place]) PRE-OP DIAGNOSIS: Known history of duodenal ulcer, screening intestinal cancer TISSUE SUBMITTED: A. Duodenal biopsy, B. Antrum biopsy for H. pylori and path, C. Distal esophagus biopsy MICROSCOPIC DIAGNOSIS A. Duodenum, biopsy: No pathologic diagnosis. B. Gastric antrum, biopsy: Mild chronic gastritis. See comment. C. Distal esophagus, biopsy: Focal changes of reflux. Gastroesophageal junction mucosa with mild chronic inflammation. No evidence of Allen's mucosa. See comment. SJ:rg 05/07/19 COMMENT B. The results of immunohistochemistry for Helicobacter pylori will be reported separately ([id number]). C. Alcian blue/PAS stain with matched control supports the above diagnosis. MICROSCOPIC DESCRIPTION Slides are reviewed. GROSS DESCRIPTION A - Received in fixative is one container labeled with the patient's name and designated duodenal biopsy. The specimen consists of one irregular fragment of light strong soft tissue that measures 0.5 x 0.3 x 0.1 cm. The specimen is totally submitted in one cassette. B - Received in fixative is one container labeled with the patient's name and designated antrum biopsy. The specimen consists of one irregular fragment of light strong soft tissue that measures 0.4 x 0.2 x 0.1 cm. The specimen is totally submitted in one cassette. C - Received in fixative is one container labeled with the patient's name and designated distal esophagus biopsy. The specimen consists of multiple irregular fragments of light strong soft tissue that in aggregate measure 0.6 x 0.2 x 0.1 cm. The specimen is totally submitted in one cassette. / SJ:shahzad 05/04/19 TC:3 CPT: 19221 x3, 09870
--- NOTE | 2019-05-04 11:00 | IMM_PTH ---
PATIENT: ALVINO ESPITIA LOC: EN U#:[id number] AGE/SX: 53/F ROOM: RE05/04/[address]: Dr. Anders Gabriel MD : 1965 BED: DIS: 05/04/2019 SPEC #: [id number] RECD: 05/04/19 14:39 STATUS: LISA REQ #: [id number] CAMILO: 05/04/19 11:[address]: Anders Gabriel DEPT: IMMUNOHISTOCHEMISTRY RECD BY: Alanna Murguia ENTERED: 05/04/19 14:40 SP TYPE: IMMUNO OTHR DR: No Primary Care Phys Tissues: B - Stomach, NOS Procedures: H Pylori (initial) PHYSICIAN & INSTITUTION [place] [address] SPECIMEN INFORMATION: Tissue Source: B - Antrum biopsy Clinical Info: History of duodenal ulcer, screening intestinal CA Specimen Number: [id number] CPT code: 28283 METHODOLOGY: Deparaffinized sections of prefer/formalin-fixed tissue or PAP/DQ stained slides are incubated with monoclonal/polyclonal antibodies/oligonucleotide probes. Localization is made via biotin free immunoperoxidase method. Appropriate controls are performed and reacted as expected. Results on target cell population are indicated in the following table: RESULTS: ANTIBODY / CLONE RESULT Block B H Pylori (polyclonal) negative These tests were developed and their performance characteristics determined by [facility]. They may not have been cleared or approved by the U.S. Food and Drug Administration. The FDA has determined that such clearance or approval is not necessary. INTERPRETATION: B. Antrum biopsy: Negative for Helicobacter pylori organisms. AM:shahzad 05/07/19
[2019-05-04 12:06] VITALS: BP 103/70; BP 108/73; PULSE 70; RESP 14; TEMP 36.4; O2SAT 99
--- NOTE | 2019-05-04 12:07 | OP.ENDO_ITS ---
05/04/2019 No Primary Care Physician Re : Upper GI endoscopy procedure for Deepa Nina Dear Care Physician This procedure was performed on Saturday, May 04, 2019. My impressions and recommendations are as follows: Impressions : - LA Grade A reflux esophagitis. Biopsied. - 1 cm hiatal hernia. - Erythematous mucosa in the antrum. Biopsied. - Normal examined duodenum. Biopsied. No current duodenal ulcer identified but reflux esophagitis suspected Recommendations : - Discharge patient to home. - Resume previous diet. - Continue present medications. - Telephone my office for pathology results in 1 week. My findings are described in the full procedure note, which is enclosed. If I can be of further assistance, please feel free to contact me at Doctor phone number(s): Work: . Sincerely, Anders Gabriel MD 05/04/2019 12:07:33 PM This report has been signed electronically.
[2019-05-04 12:10] VITALS: BP 108/73; BP 99/64; PULSE 67; RESP 14; O2SAT 100
--- NOTE | 2019-05-04 12:10 | OP.ENDO_ITS ---
05/04/2019 No Primary Care Physician Re : Colonoscopy procedure for Deepa Nina Dear Care Physician This procedure was performed on Saturday, May 04, 2019. My impressions and recommendations are as follows: Impressions : - Hemorrhoids found on perianal exam. - Diverticulosis in the sigmoid colon and in the descending colon. - The examination was otherwise normal. - No specimens collected. Recommendations : - Discharge patient to home. - Resume previous diet. - Continue present medications. - Repeat colonoscopy in 10 years for screening purposes. My findings are described in the full procedure note, which is enclosed. If I can be of further assistance, please feel free to contact me at Doctor phone number(s): Work: . Sincerely, Anders Gabriel MD 05/04/2019 12:09:25 PM This report has been signed electronically.
[2019-05-04 12:15] VITALS: BP 103/66; BP 108/73; PULSE 62; RESP 16; O2SAT 100
[2019-05-04 12:21] VITALS: BP 108/73; BP 117/72; PULSE 62; RESP 16; TEMP 37.1; O2SAT 100
[2019-05-04 12:54] VITALS: BP 108/73
== END 2019-05-04 13:01 | disposition home or self-care (01) ==
LOC: EN 09:42 → AC 09:43
PROVIDERS: Referring Provider Surgery; Visit Provider Surgery
PROC: 0DJD8ZZ Inspection of Lower Intestinal Tract, Via Natural or Artificial Opening Endoscopic (ICD-10-PCS; CPT 45378; principal; 2019-05-04 10:55)
DX: Z12.11 Encounter for screening for malignant neoplasm of colon (principal); K64.9 Unspecified hemorrhoids; K57.30 Diverticulosis of large intestine without perforation or abscess without bleeding; K29.50 Unspecified chronic gastritis without bleeding; K44.9 Diaphragmatic hernia without obstruction or gangrene; K21.0 Gastro-esophageal reflux disease with esophagitis; E66.9 Obesity, unspecified; Z68.32 Body mass index [BMI] 32.0-32.9, adult; D50.9 Iron deficiency anemia, unspecified; M19.90 Unspecified osteoarthritis, unspecified site; Z78.0 Asymptomatic menopausal state; Z87.19 Personal history of other diseases of the digestive system; Z85.528 Personal history of other malignant neoplasm of kidney; Z90.5 Acquired absence of kidney; Z87.891 Personal history of nicotine dependence
CPT/HCPCS: 45378; 43239; 88305; 88342; J7120

== ENCOUNTER → 2019-06-07 | Outpatient (CLI) | payer OTHER, SELFPAY ==
--- NOTE | 2019-06-07 16:06 | BI_ITS ---
MAMMOGRAPHY - BILATERAL SCREENING REASON FOR EXAM: Female, 53 years old. Routine annual screening examination. PERTINENT HISTORY: Sister with breast cancer. TECHNIQUE: Digital bilateral breast jaya (3D mammographic acquisition) in the CC and MLO projections. 2-D mediolateral oblique (MLO) and craniocaudad (CC) views of both breasts were obtained. CAD: Full Field Digital Mammography with Computer Added Detection was performed. COMPARISON: Comparison is made with prior study dated May 25, 2018 and May 18, 2017. FINDINGS: Breast Composition: The breasts are heterogeneously dense, which may obscure small masses. There are no dominant masses or suspicious calcifications. Stable small bilateral benign appearing axillary lymph nodes. No other significant abnormalities are identified. There has been no significant change since the prior study. BI/SCREEN MAMM (CAD) W/JAYA BILAT IMPRESSION: Stable bilateral screening mammogram. Yearly follow-up mammogram recommended. (A) ASSESSMENT CATEGORY: BIRADS Category 2: Benign. A letter regarding these results will be sent to the patient by the facility within 30 days. Approximately 10% of breast cancers are not detected by mammography. A normal mammogram should not delay biopsy of a clinically suspicious abnormality. [id number] Electronically Signed: Grady Carcamo, at 8:24 EDT , Service support ,
== END | disposition home or self-care (01) ==
PROVIDERS: Referring Provider Obstetrics & Gynecology; Visit Provider Obstetrics & Gynecology
DX: Z12.31 Encounter for screening mammogram for malignant neoplasm of breast (principal)
CPT/HCPCS: 77063; 77067

== ENCOUNTER → 2019-10-17 16:45 | Outpatient (CLI) | payer OTHER, SELFPAY ==
[2019-08-28 17:34] VITALS: BMI 32.1
== END ==
PROVIDERS: Referring Provider Otolaryngology Otolaryngology/Facial Plastic Surgery; Visit Provider Otolaryngology Otolaryngology/Facial Plastic Surgery
DX: J02.9 Acute pharyngitis, unspecified (principal); J32.9 Chronic sinusitis, unspecified
CPT/HCPCS: 87070; 87077

== ENCOUNTER → 2019-11-21 | Outpatient (CLI) | payer OTHER, SELFPAY ==
[2019-08-28 17:34] VITALS: BMI 32.1
== END | disposition home or self-care (01) ==
LOC: LABSPEC 16:37
PROVIDERS: Referring Provider Otolaryngology; Visit Provider Otolaryngology
DX: J02.9 Acute pharyngitis, unspecified (principal)
CPT/HCPCS: 87804

== ENCOUNTER 2020-05-28 18:41 | Emergency (ER) | payer OTHER, SELFPAY ==
[2019-12-16 10:18] VITALS: BMI 32.1
[2020-05-28 18:41] VITALS: BP 122/72; PULSE 75; RESP 16
[2020-05-28 18:42] VITALS: BP 122/72; PULSE 75; RESP 16; TEMP 36.2; O2SAT 97; BMI 30.7
--- NOTE | 2020-05-28 19:21 | ED.DCSUM_ITS ---
History of Present Illness Chief Complaint: Back Informant: Patient Onset: Today Narrative: 54-year-old female presenting with back pain. She states that she has had back pain issues in the past but over the course of this last summer she has had worsening problems with her back pain. Lumbar spine area. She states initially it started on the right side of her back and migrated to the left side. She does some radiation of pain down the leg initially. Patient states that she has seen 2 chiropractors which seem to have made the problem worse. She is seeing a massage therapist who does help with the muscular pain. Today she states she was stretching and all of a sudden she went into spasm. She was unable to get off of the floor. She called EMS and was transported. She has no signs or symptoms consistent with cauda equina syndrome or infectious etiology. - Past Medical History (1) Pain of sternum Status: Chronic (2) Pancreatitis Status: Chronic (3) Iron deficiency anemia Status: Chronic Past Medical History - Allergies and Home Meds Allergies/Adverse Reactions: Allergies Penicillins Allergy (Verified 05/28/20 18:41) Unknown adhesive tape Adverse Reaction (Verified 05/28/20 18:41) Rash Primary Care Physician: [facility] [Outside] Gus Kenney MD [NON-STAFF] - Care Physician,No Primary [Primary Care Provider] - Prior records reviewed: Yes Past Medical History: - - Reviewed under problem list Surgical History: tonsillectomy, - - Right partial nephrectomy for renal cell cancer, uterine ablation, bilateral tubal ligation, tonsillectomy. Lives: With Family Smoking Status: Former smoker Alcohol: None Drugs: None - Family History Maternal Family History: Family History (Last Reviewed 12/16/19 @ 10:18 by Wen Kenny) Brother Asthma Malignant hyperthermia due to anesthesia Hypertension Grandfather Colon cancer Mother Heart disease Thyroid disorder Sister Breast cancer Hypertension Thyroid disorder Father Bleeding disorder Family History: Reports: - - Patient notes a maternal family history of heart disease, specifically valvular heart disease, COPD with tobacco use history. Paternal Family History: Family History (Last Reviewed 12/16/19 @ 10:18 by Wen Kenny) Brother Asthma Malignant hyperthermia due to anesthesia Hypertension Grandfather Colon cancer Mother Heart disease Thyroid disorder Sister Breast cancer Hypertension Thyroid disorder Father Bleeding disorder Family History: Reports: - - Patient notes a history of heart disease, coronary disease status post PCI x1, lung cancer with tobacco use history. Review of Systems General: Denies: Chills, Fever, Sweats Eyes: Denies: Visual changes - bilaterally, Diplopia ENT: Denies: Rhinorrhea, Sore throat Cardiovascular: Denies: Chest pain, Palpitations Respiratory: Denies: Dyspnea, Cough, Dyspnea on exertion Gastrointestinal: Denies: Abdominal pain, Nausea, Vomiting, Diarrhea, Melena, Hematochezia Genitourinary: Denies: Dysuria, Hematuria, Frequency Musculoskeletal: Reports: Back pain Skin: Denies: Rash, Wounds Neurological: Denies: Headache, Weakness, Numbness Physical Exam Vital Signs/Narrative: Vital Signs Temp Pulse Resp BP Pulse Ox 05/28/20 18:42 97.2 F L 75 16 122/72 H 97 05/28/20 18:41 75 16 122/72 H General: Well nourished, Acute Distress Head: Normocephalic, Atraumatic Eyes: Perrl, EOMI Cardiovascular: Regular rate, Regular rhythm Respiratory: No distress Back: - - Spinal tenderness, deformity, step-off. It does not appear to be reproducible except for with movement and especially rolling and twisting the bed. Skin: Normal color, No rash Neurological: Alert, Oriented x3 Psychological: Normal affect Diagnostic/Tx/Re-eval Clinical Impression(s) from Imaging Studies Lumbar Spine X-Ray 05/28/20 20:22 IMPRESSION: L5 compression fracture. Electronically Signed: Cooper Vega MD at 21:05 EDT , Service support , - Medical Decision Making Presents with worsening back pain when she was trying to stretch today. She states overall her back pain is been worse since he saw chiropractor. It was not this bad until today. Patient was given oxycodone, Toradol in the ED and she had some improvement of her pain. She was able to get up and use the bedside commode. Lumbar spine x-ray shows a lumbar compression fracture at L5. This is likely the source of her pain. Is unclear whether this occurred today or when she saw her chiropractor. She was given follow-up with [facility] for this. She is given Percocet for home. She is given return precautions. Patient is stable for discharge at this time. Impression: 1. Acute lumbar compression fracture L5 ED Disposition - Plan for ED Patient: Disposition: Home or Assisted Living Instructions: Back Fracture (Compression Fracture) Prescriptions: Oxycodone HCl/Acetaminophen [Percocet 5/325] 1 tab PO Q6H PRN PRN 3 Days #12 tab PRN Reason: Pain Prescription Printed Referrals: Care Physician,No Primary [Primary Care Provider] - Gus Kenney MD [NON-STAFF] - [facility] [Outside]
[2020-05-28] MEDS: predniSONE 20 MG Tablet 60 MG PO (20:00)
[2020-05-28] MEDS: oxyCODONE 5 MG Tablet PO (20:00)
[2020-05-28] MEDS: Ketorolac 15 MG/ML Vial IM (20:00)
--- NOTE | 2020-05-28 20:22 | RAD_ITS ---
STUDY: X-RAY - LUMBAR SPINE REASON FOR EXAM: Female, 54 years old. BACK PAIN THAT BECAME WORSE AFTER STRETCHING. ONGOING BACK PAIN ISSUES AND PAIN IN HIPS TECHNIQUE: 3 view(s) of the lumbar spine were obtained. COMPARISON: October 23, 2016 FINDINGS: Normal lumbar lordosis. There is no substantial scoliosis. There is a normal alignment of the vertebrae. There is generalized demineralization of the vertebral bodies. There is an L5 compression fracture with 20% loss of height of the superior endplate. The soft tissue structures are unremarkable. RAD/Lumbar Spine 2 or 3 Views IMPRESSION: L5 compression fracture. Electronically Signed: Cooper Vega MD at 21:05 EDT , Service support ,
== END 2020-05-28 22:22 | disposition home or self-care (01) ==
PROVIDERS: Emergency Provider Student in an Organized Health Care Education/Training Program
DX: S32.059A Unspecified fracture of fifth lumbar vertebra, initial encounter for closed fracture (principal); X50.1XXA Overexertion from prolonged static or awkward postures, initial encounter; Y93.9 Activity, unspecified; Y92.9 Unspecified place or not applicable; Z87.19 Personal history of other diseases of the digestive system; Z86.2 Personal history of diseases of the blood and blood-forming organs and certain disorders involving the immune mechanism; Z87.891 Personal history of nicotine dependence
CPT/HCPCS: 72100; 96372; 99285

== ENCOUNTER → 2020-06-03 16:18 | Outpatient (CLI) | payer OTHER, SELFPAY ==
[2020-05-28 18:42] VITALS: BMI 30.7
--- NOTE | 2020-06-03 18:15 | MRI_ITS ---
STUDY: MRI LUMBAR SPINE WITHOUT CONTRAST REASON FOR EXAM: Female, 54 years old. Acute fracture L5, hx kidney ca-2011 TECHNIQUE: Standardized fat and water weighted pulse sequences were obtained in the sagittal and axial planes. COMPARISON: Lumbar spine 05/28/2020 FINDINGS: T12-L1: Normal endplates. Normal disc height, hydration and morphology. Normal bilateral facet joints. Normal central canal and bilateral lateral recesses. Normal bilateral intervertebral neural foramina. Normal lumbar lordosis. There is no substantial scoliosis. Normal conus medullaris that terminates at T12-L1 L1-2: Normal endplates. Normal disc height, hydration and morphology. Normal bilateral facet joints. Normal central canal and bilateral lateral recesses. Normal bilateral intervertebral neural foramina. L2-3: Normal endplates. Normal disc height, hydration and morphology. Normal bilateral facet joints. Normal central canal and bilateral lateral recesses. Normal bilateral intervertebral neural foramina. L3-4: Normal endplates. Normal disc height, hydration and morphology. Normal bilateral facet joints. Normal central canal and bilateral lateral recesses. Normal bilateral intervertebral neural foramina. L4-5: Mild wedging of the superior endplate of L5 with approximately 10% loss of vertebral body height in association with abnormal signal intensity with linear low signal consistent with acute compression fracture.. Normal disc height, desiccation and mild annular bulge. Mild facet arthropathy and thickening of ligamenta flava.. Normal central canal and bilateral lateral recesses. Moderate bilateral neuroforaminal stenosis. L5-S1: Normal endplates. Normal disc height, hydration and morphology. Mild bilateral facet arthropathy. Normal central canal and bilateral lateral recesses. Normal bilateral intervertebral neural foramina. Heterogeneous signal intensity seen within the sacral wings bilaterally greater on the left possibly representing intramedullary bone marrow edema although neoplasm cannot be excluded. Dedicated study of the sacrum with and without contrast would be useful for further evaluation if indicated Normal visualized paraspinous soft tissue structures. MRI/Spine Lumbar (Routine) IMPRESSION: Acute mild compression fracture of superior endplate of L5. Spinal stenosis at L4-5 secondary to bulging annulus and facet arthropathy. Abnormal signal intensity within the sacral wings bilaterally greater on the left of indeterminate etiology possibly posttraumatic although cannot exclude neoplastic changes. Dedicated MRI of the sacrum with and without contrast would be useful for further assessment if indicated. Electronically Signed: Lux Jacobson MD at 17:47 EDT , Service support ,
== END ==
PROVIDERS: Visit Provider Anesthesiology Pain Medicine
DX: M51.37 Other intervertebral disc degeneration, lumbosacral region (principal)
CPT/HCPCS: 72148

== ENCOUNTER → 2020-06-05 | Outpatient (CLI) | payer OTHER, SELFPAY ==
[2020-05-28 18:42] VITALS: BMI 30.7
--- NOTE | 2020-06-05 | IMM_PTH ---
PATIENT: ALVINO ESPITIA LOC: [facility] U#:[id number] AGE/SX: 54/F ROOM: RE06/05/[address]: Dr. Lux Thapa MD : 1965 BED: DIS: 06/05/2020 SPEC #: [id number] RECD: 06/09/20 11:21 STATUS: LISA REQ #: [id number] CAMILO: 06/05/20 00:[address]: Lux Thapa DEPT: IMMUNOHISTOCHEMISTRY RECD BY: Alanna Murguia ENTERED: 06/09/20 11:23 SP TYPE: IMMUNO OTHR DR: No Primary Care Phys Tissues: Vertebra, NOS Procedures: CK8 (initial) CD138 (add) KAPPA (add) LAMBDA (add) Pankeratin (add) PHYSICIAN & INSTITUTION [place] [address] SPECIMEN INFORMATION: Tissue Source: Bone L5 Clinical Info: Compression fracture of lumbar spine Specimen Number: [id number] CPT code: 96906, 58979 x4 METHODOLOGY: Deparaffinized sections of prefer/formalin-fixed tissue or PAP/DQ stained slides are incubated with monoclonal/polyclonal antibodies/oligonucleotide probes. Localization is made via biotin free immunoperoxidase method. Appropriate controls are performed and reacted as expected. Results on target cell population are indicated in the following table: RESULTS: ANTIBODY / CLONE RESULT CK8 (20gdcyI28) negative AE1-3 (AE1/AE3/PCK26) negative CD138 (B-A38) positive [place] (polyclonal) positive Lambda (polyclonal) negative These tests were developed and their performance characteristics determined by [facility]. They may not have been cleared or approved by the U.S. Food and Drug Administration. The FDA has determined that such clearance or approval is not necessary. The above immunohistochemical/dualISH markers are ordered and reviewed by the Pathologist. INTERPRETATION: Bone L5, kyphoplasty: Increased number of plasma cells are noted with kappa monoclonality suspicious for plasma cell dyscrasia. Negative for carcinoma. AZEB:shahzad 06/09/20 Case has been reviewed in consultation with Dr. Mustafa who concurs with the above diagnosis. IDC:[email or web address]
--- NOTE | 2020-06-05 09:00 | BON_PTH ---
PATIENT: AL[facility]INO ESPITIA [facility] U[facility][id number] AGE/SX: 54/F ROOM: RE06/05/[address]: Dr. Lux Thapa MD : 1965 BED: DIS: 06/05/2020 SPEC #: [id number] RECD: 06/05/20 15:06 STATUS: LISA REVi #: [id number] CAMILO: 06/05/20 09:[address]: Lux Thapa DEPT: SURGICAL PATHOLOGY RECD BY: Dave Brock ENTERED: 06/06/20 09:01 SP TYPE: Bone OTHR DR: No Primary Care Phys [facility] Tissues: Vertebra, NOS Procedures: Decalcification bone/plaque Surgery Specimen Level IV HEADER OPERATION: Kyphoplasty of L5 PRE-OP DIAGNOSIS: Compression fracture of lumbar spine TISSUE SUBMITTED: Bone L5 MICROSCOPIC DIAGNOSIS Bone L5, kyphoplasty: A piece of bone and blood clots with increased number of plasma cells with kappa monoclonality, suspicious for plasma cell dyscrasia. Negative for carcinoma. See comment. SJ:shahzad 06/09/20 COMMENT Immunohistochemistry ([id number]) supports the above diagnosis. This case is discussed with Dr. Thapa on 06/09/20. Case has been reviewed in consultation with Dr. Wall who concurs with the above diagnosis. IDC:[email or web address] MICROSCOPIC DESCRIPTION Slides are reviewed. GROSS DESCRIPTION Received in fixative is one container labeled with the patient's name and designated bone L5. The specimen consists of an elongated, gritty bony tissue measuring 0.8 x 0.2 x 0.2 cm. Adherent to this is clotted blood measuring 1.5 x 0.5 x 0.2 cm. The specimen is submitted in one cassette after decalcification. / AM:shahzad 06/06/20 TC:5 CPT: 06148, 63789 ADDENDUM ADDENDUM ADDENDUM ADDENDUM ADDENDUM ADDENDUM ADDENDUM ADDENDUM ADDENDUM ADDENDUM ADDENDUM 12/09/2020 09:16 ADDENDUM 12/09/2020 09:16 ADDENDUM 12/09/2020 09:16 ADDENDUM 12/09/2020 09:16 ADDENDUM 12/09/2020 09:16 This addendum is added to incorporate an outside pathology consultation report. The case was examined at [facility] (#[id number]) and the following diagnosis was rendered. 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 Hypocellular bone marrow (20%) with trilineage hematopoiesis. Please see complete above mentioned consultation report in EMR
== END | disposition home or self-care (01) ==
LOC: LABSPEC 15:35
PROVIDERS: Referring Provider Anesthesiology Pain Medicine; Visit Provider Anesthesiology Pain Medicine
DX: M48.56XA Collapsed vertebra, not elsewhere classified, lumbar region, initial encounter for fracture (principal)
CPT/HCPCS: 88305; 88311; 88341; 88342

== ENCOUNTER 2020-06-09 10:06 | Emergency (ER) | payer OTHER, SELFPAY ==
[2020-06-09 10:07] VITALS: BP 130/90; PULSE 83; RESP 16; TEMP 36.1; O2SAT 98; BMI 33.3
--- NOTE | 2020-06-09 10:21 | ED.VIS.BACK ---
History of Present Illness Chief Complaint: Back Informant: Patient, Family Onset: Days Context: Sudden Onset Chronic pain exacerbated by: Movement Injury: - - Status post kyphoplasty L5 Timing: Continuous Quality: Dull, Aching Location: Thoracic, Lumbar, Buttock, Right Leg Current Severity: Mild Maximum Severity: Severe Worsened by: improves with: Movement, Ambulation, Bending, Lifting Relieved by: Nothing Associated Symptoms: - - Denies bowel bladder dysfunction. She denies saddle paresthesia or anesthesia. She reports pain anteriorly over the L3-L4 dermatome. Pain terminates above the right patella. - Past Medical History (1) Iron deficiency anemia Status: Chronic (2) Obesity Status: Chronic (3) Pancreatitis Status: Chronic (4) Renal cell cancer Status: Resolved Past Medical History - Allergies and Home Meds Allergies/Adverse Reactions: Allergies Penicillins Allergy (Verified 06/09/20 10:06) Unknown adhesive tape Adverse Reaction (Verified 06/09/20 10:06) Rash Primary Care Physician: John Quinones DO [NON-STAFF] - Keep [facility] appointment Care Physician,No Primary [Primary Care Provider] - Prior records reviewed: Yes Surgical History: tonsillectomy, - - Right partial nephrectomy for renal cell cancer, uterine ablation, bilateral tubal ligation, tonsillectomy. Lives: With Family Smoking Status: Former smoker Alcohol: None Drugs: None - Family History Maternal Family History: Family History (Last Reviewed 12/16/19 @ 10:18 by Wen Kenny) Brother Asthma Malignant hyperthermia due to anesthesia Hypertension Grandfather Colon cancer Mother Heart disease Thyroid disorder Sister Breast cancer Hypertension Thyroid disorder Father Bleeding disorder Family History: Reports: - - Patient notes a maternal family history of heart disease, specifically valvular heart disease, COPD with tobacco use history. Paternal Family History: Family History (Last Reviewed 12/16/19 @ 10:18 by Wen Kenny) Brother Asthma Malignant hyperthermia due to anesthesia Hypertension Grandfather Colon cancer Mother Heart disease Thyroid disorder Sister Breast cancer Hypertension Thyroid disorder Father Bleeding disorder Family History: Reports: - - Patient notes a history of heart disease, coronary disease status post PCI x1, lung cancer with tobacco use history. Review of Systems General: Denies: Chills, Fever, Malaise, Subjective ENT: Denies: Rhinorrhea, Sore throat Cardiovascular: Denies: Chest pain, Palpitations Respiratory: Denies: Dyspnea, Cough, Sputum, Dyspnea on exertion Gastrointestinal: Denies: Nausea, Vomiting, Diarrhea Genitourinary: Denies: Dysuria, Hematuria, Frequency Musculoskeletal: Reports: Back pain. Denies: Myalgias, Arthralgias, Neck pain, Swelling, Extremity Pain Skin: Denies: Rash, Wounds Neurological: Denies: Headache, Weakness, Parasthesia, Numbness Hematologic: Denies: Easy bruising, Easy bleeding Physical Exam Vital Signs/Narrative: Vital Signs Temp Pulse Resp BP Pulse Ox 06/09/20 10:07 97.0 F L 83 16 130/90 H 98 Inital Vital Signs reviewed: Yes General: Well nourished, Well developed, Obese Head: Normocephalic, Atraumatic Eyes: Perrl, EOMI. Negative for: Pale conjunctiva, Scleral icterus Neck: Supple, Nontender. Negative for: No lymphadenopathy, No JVD Cardiovascular: Regular rate, Regular rhythm, No murmurs, Normal S1, Normal S2 Respiratory: No distress, CTA bilaterally Abdomen: Soft, Nontender, Nondistended, Normal bowel sounds Back: Normal Inspection, Surgical Scar - Is a puncture site left lateral approach for kyphoplasty without evidence of infection i.e. erythema, warmth, induration or fluctuance., Negative SLR - Right, Negative SLR - Left. Negative for: Nontender Extremeties: Nontender, No edema, Symmetric Skin: Normal color, No rash Neuro: Alert, Oriented, Normal Strength, Normal Sensation, Normal DTR - DTR 3+ symmetric at the patella and ankle. Reflexes: - - EHL is intact bilaterally. 5/5 strength with plantar and dorsiflexion of the foot. Unable to assess gait or quadricep weakness. Normal perianal sensation.. Negative for: Right Clonus, Right Babinski, Left Clonus, Left Babinski Psychological: Depressed Diagnostic/Tx/Re-eval Impressions Lumbar Spine MRI 06/09/20 10:35 IMPRESSION: Interval vertebroplasty of the mild compression fracture of L5 but no retropulsion into the spinal canal. Otherwise no change. Electronically Signed: Juan C Mckay MD at 12:51 EDT Tel , Service support , 06/09/20 10:35 MRI Lumbar [Spine Lumbar (Routine)] [MRI] Stat Laboratory Results 06/09/20 06/09/20 10:28 10:28 WBC 6.9 RBC 3.85 L Hgb 11.7 L Hct 36.4 L MCV 94.5 MCH 30.4 MCHC 32.1 RDW Std Deviation 41.7 RDW Coeff of Marcia 12.1 Plt Count 201 MPV 9.3 Immature Gran % (Auto) 0.900 Neut % (Auto) 66.8 Lymph % (Auto) 20.0 [place] % (Auto) 8.7 Eos % (Auto) 3.0 Baso % (Auto) 0.6 Absolute Neuts (auto) 4.6 Absolute Lymphs (auto) 1.38 Nucleated RBC % 0 Sodium 141 Potassium 4.8 Chloride 107 Carbon Dioxide 30.0 Anion Gap 4 L BUN 16 Creatinine 1.00 Estim Creat Clear Calc 57.20 Est GFR (MDRD) Af Amer 74 Est GFR (MDRD) Non-Af 61 BUN/Creatinine Ratio 16.0 Glucose 90 Calcium 9.9 Patient's work-up was unremarkable. Her pain management physician Dr. Quinones was paged to inform him of results. Plan is to discharge to home - Medical Decision Making Spoke with Dr. Quinones's nurse practitioner [facility]. There is no documentation that patient was sent in. She may have spoken to Dr. Quinones who recommended sending her in and not be documented. Discussed MRI and if needed with and without contrast or just without. Without would be sufficient. Will obtain MRI to assess for cement leak, hematoma that may be causing her L4 radicular pain. Patient was medicated with IV morphine. Baseline blood work was obtained to assess white count, sed rate etc. ED Disposition - Plan for ED Patient: Disposition: Home or Assisted Living Diagnosis: Low back pain, Mid-back pain, acute Instructions: ED Back Pain Acute or Chronic Referrals: Care Physician,No Primary [Primary Care Provider] - John Quinones, [NON-STAFF] - Keep [facility] appointment
[2020-06-09] MEDS: Ondansetron 4 MG/2 ML Vial IV (10:28)
[2020-06-09] MEDS: morphine 8 MG/ML Syringe IV (10:28)
[2020-06-09 10:33] LABS: Absolute Lymphocyte Count 1.38 X10^3/uL (0.83-4.51); Absolute Neutrophil Count 4.6 X10^3/uL (2.0-7.7); Basophil# 0.04 X10^3/uL; Basophil% 0.6 % (0-1); Eosinophil# 0.21 X10^3/uL; Hematocrit 36.4 % (37-47); Hemoglobin 11.7 g/dL (12.0-15.0); Lymphocyte # 1.38 X10^3/ul (4.0); Mean Corp Hgb Conc 32.1 g/dL (32-36); Mean Corpuscular Hgb 30.4 pg (27.0-32.0); Mean Corpuscular Volume 94.5 fL (81-99); Mean Platelet Vol. 9.3 fl (6.2-12.0); Monocyte% 8.7 % (0-10); NRBC Flagged by Analyzer 0 % (0-5); Neutrophil # 4.62 X10^3/uL (2.7-7.7); Neutrophil % 66.8 % (47-70); Platelet Count 201 K/mm3 (150-450); RBC Distribution Width CV 12.1 % (11.6-14.6); RBC Distribution Width SD 41.7 fl (35.1-43.9); Red Blood Count 3.85 M/mm3 (4.2-5.4); White Blood Count 6.9 K/mm3 (4.4-11.0)
--- NOTE | 2020-06-09 10:35 | MRI_ITS ---
STUDY: MRI LUMBAR SPINE WITHOUT CONTRAST REASON FOR EXAM: Female, 54 years old. s/p kyphoplasty, increased pain, mid back pain TECHNIQUE: Standardized fat and water weighted pulse sequences were obtained in the sagittal and axial planes. COMPARISON: 06/03/2020 FINDINGS: T12-L1: Normal endplates. Normal disc height, hydration and morphology. Normal bilateral facet joints. Normal central canal and bilateral lateral recesses. Normal bilateral intervertebral neural foramina. Normal lumbar lordosis. There is no substantial scoliosis. Normal conus medullaris that terminates at the L1/L2. Interval treatment of the mild compression fracture of L5 with vertebroplasty. No retropulsion into the spinal canal. L1-2: Normal endplates. Normal disc height, hydration and morphology. Normal bilateral facet joints. Normal central canal and bilateral lateral recesses. Normal bilateral intervertebral neural foramina. L2-3: Normal endplates. Normal disc height, hydration and morphology. Normal bilateral facet joints. Normal central canal and bilateral lateral recesses. Normal bilateral intervertebral neural foramina. L3-4: Small left foraminal protrusion produces mild left neural foraminal stenosis which is unchanged. No central spinal stenosis. L4-5: Normal endplates. Normal disc height, hydration and morphology. Normal bilateral facet joints. Normal central canal and bilateral lateral recesses. Normal bilateral intervertebral neural foramina. L5-S1: Normal endplates. Normal disc height, hydration and morphology. Normal bilateral facet joints. Normal central canal and bilateral lateral recesses. Normal bilateral intervertebral neural foramina. Normal visualized sacral ala. Normal visualized paraspinous soft tissue structures. MRI/Spine Lumbar (Routine) IMPRESSION: Interval vertebroplasty of the mild compression fracture of L5 but no retropulsion into the spinal canal. Otherwise no change. Electronically Signed: Juan C Mckay MD at 12:51 EDT Tel , Service support ,
[2020-06-09 10:46] LABS: Anion Gap 4 (5-15); BUN 16 mg/dL (7-18); Calcium,Total 9.9 mg/dL (8.5-10.1); Chloride 107 mmol/L (98-107); EST Glomerular Filtration Rate 61 mL/min (>60); Est Glom Filt Rate - Afr Amer 74 mL/min (>60); Glucose 90 mg/dL (74-106); Potassium 4.8 mmol/L (3.5-5.1); Sodium Level 141 mmol/L (136-145)
--- NOTE | 2020-06-09 12:18 | NURSING ---
PT TOLD THIS RN THAT SHE WOULD LIKE TO HAVE AN MRI OF HER WHOLE BACK, RATHER THAN A LUMBAR MRI. DR RODRÍGUEZ MADE AWARE. DR DISCUSSED TO PT AND FAMILY MEMBER THAT HE HAD SPOKE WITH DR DANIELS, AND SHE JUST MEETS CRITERIA FOR LUMBAR SPINE AT THIS TIME. PT ALSO STATED THAT SHE WOULD RATHER JUST WAIT UNTIL TOMORROW AT HER POST OP APPT WITH DR DANIELS TO HAVE THE MRI TAKEN. DR RODRÍGUEZ MADE AWARE AND DISCUSSED WITH PT THAT DR DANIELS WOULD LIKE LUMBAR MRI TAKEN, AND IF SHE DOES NOT WANT IT TAKEN TODAY THAN SHE WOULD HAVE TO SIGN OUT AMA. PT AND FAMILY AGREED TO LUMBAR MRI AT THIS TIME. WILL CONTINUE TO MONITOR.
--- NOTE | 2020-06-09 12:51 | CM.ED ---
Social Work Consult: No PCP Informant: Self-Referral Met with patient in room. Introduced self and social sciences chair role. Patient agreeable to speaking with this social sciences chair. This social sciences chair broached topic of PCP. Patient confirms to not have an active PCP. Patient states that patient last PCP recently retired and I just haven't got one set up. Patient state to think that patient might have an appointment set up with someone in the [place] area. Patient states to have need supports/resources to set up PCP in the community and is declining list of PCP's. Patient declining for this social sciences chair to set patient up with an appointment. Patient states to have no concerns in the community with main concern being patient back, reason why patient came to the emergency room today. Espinoza LEY, JULIA
[2020-06-09] MEDS: morphine 8 MG/ML Syringe 6 MG IV (12:54)
[2020-06-09 13:00] VITALS: BP 107/86; PULSE 75; RESP 18; O2SAT 98
== END 2020-06-09 14:05 | disposition home or self-care (01) ==
PROVIDERS: Emergency Provider Emergency Medicine
DX: M54.5 Low back pain (principal); M54.9 Dorsalgia, unspecified; Z98.890 Other specified postprocedural states; E66.9 Obesity, unspecified; Z86.2 Personal history of diseases of the blood and blood-forming organs and certain disorders involving the immune mechanism; Z87.19 Personal history of other diseases of the digestive system; Z85.528 Personal history of other malignant neoplasm of kidney; Z87.891 Personal history of nicotine dependence
CPT/HCPCS: 72148; 80048; 85025; 96374; 96375; 96376; 99282; A4216; J2405

== ENCOUNTER → 2020-06-18 14:20 | Outpatient (CLI) | payer OTHER, SELFPAY ==
[2020-06-18 08:59] VITALS: BMI 33.0
[2020-06-18 15:54] LABS: ALB/GLOB Ratio 1.1 RATIO (0.9-2.4); AST(SGOT) 20 U/L (15-37); Alanine Aminotransfer ALT/SGPT 23 U/L (13-56); Alkaline Phosphatase 91 U/L (45-117); Anion Gap 5 (5-15); BUN 16 mg/dL (7-18); Calcium,Total 10.1 mg/dL (8.5-10.1); Chloride 104 mmol/L (98-107); EST Glomerular Filtration Rate 61 mL/min (>60); Est Glom Filt Rate - Afr Amer 74 mL/min (>60); Globulin 3.5 g/dL (2.2-4.2); Glucose 82 mg/dL (74-106); Potassium 3.9 mmol/L (3.5-5.1); Protein, Total 7.5 g/dL (6.4-8.2); Sodium Level 139 mmol/L (136-145)
== END ==
PROVIDERS: PCP Internal Medicine; Referring Provider Internal Medicine; Visit Provider Internal Medicine
DX: R60.0 Localized edema (principal)
CPT/HCPCS: 36415; 80053

== ENCOUNTER 2020-06-28 21:50 | Inpatient (IN) | payer OTHER, SELFPAY ==
[2020-06-18 14:40] VITALS: BMI 33.0
[2020-06-28 21:50] VITALS: BP 124/59; PULSE 102; PULSE 65; RESP 20; TEMP 37.2; O2SAT 91; O2SAT 96; BMI 35.8
--- NOTE | 2020-06-28 22:03 | ED.VIS.GEN ---
History of Present Illness Chief Complaint: Back Informant: Patient, Friend Narrative: Patient presents the emergency department with back pain. Patient currently undergoing evaluation for possible multiple myeloma with Dr. Nichosl. Recently diagnosed with 3 compression fractures. L5 has had vertebroplasty. She has been trying oxycodone, fentanyl, and morphine all without relief home. She presents the emergency department for pain control. Patient states that she is unable to lie down due to pain. The patient denies any loss of muscle strength or changes in sensation of the lower extremities and hips. Denies any bowel or bladder dysfunction. Friend states that the patient is unable to transfer to a bedside commode. No fevers. She is seen spine surgery and is scheduled for a thoracic MRI this Tuesday. She has had a lumbar MRI recently. Plan was not to do anymore vertebroplasty until she sees oncology. - Past Medical History (1) Iron deficiency anemia Status: Chronic (2) Pancreatitis Status: Chronic (3) Renal cell cancer Status: Resolved Past Medical History - Allergies and Home Meds Allergies/Adverse Reactions: Allergies latex Allergy (Mild, Verified 06/28/20 21:50) rash Penicillins Allergy (Verified 06/28/20 21:50) Unknown adhesive tape Adverse Reaction (Verified 06/28/20 21:50) Rash Surgical History: tonsillectomy, - Smoking Status: Former smoker - Family History Maternal Family History: Family History (Last Updated 06/18/20 @ 13:39 by Wen Kenny) Brother Asthma Malignant hyperthermia due to anesthesia Hypertension Grandfather Colon cancer Mother Heart disease Thyroid disorder COPD (chronic obstructive pulmonary disease) Arthritis Anemia Sister Breast cancer Hypertension Thyroid disorder Arthritis Father Bleeding disorder Cancer Myelodysplastic syndrome Chronic lymphocytic leukemia Alcohol abuse Aunt Myocardial infarction Family History: Reports: - - Patient notes a maternal family history of heart disease, specifically valvular heart disease, COPD with tobacco use history. Paternal Family History: Family History (Last Updated 06/18/20 @ 13:39 by Wen Kenny) Brother Asthma Malignant hyperthermia due to anesthesia Hypertension Grandfather Colon cancer Mother Heart disease Thyroid disorder COPD (chronic obstructive pulmonary disease) Arthritis Anemia Sister Breast cancer Hypertension Thyroid disorder Arthritis Father Bleeding disorder Cancer Myelodysplastic syndrome Chronic lymphocytic leukemia Alcohol abuse Aunt Myocardial infarction Family History: Reports: - - Patient notes a history of heart disease, coronary disease status post PCI x1, lung cancer with tobacco use history. Review of Systems General: Denies: Chills, Fever, Sweats Eyes: Denies: Visual changes - bilaterally, Diplopia ENT: Denies: Rhinorrhea, Sore throat Cardiovascular: Denies: Chest pain, Palpitations Respiratory: Denies: Dyspnea, Cough, Dyspnea on exertion Gastrointestinal: Denies: Abdominal pain, Nausea, Vomiting, Diarrhea, Melena, Hematochezia Genitourinary: Denies: Dysuria, Hematuria, Frequency Musculoskeletal: Reports: Back pain. Denies: Extremity Pain Skin: Denies: Rash, Wounds Neurological: Denies: Headache, Weakness, Parasthesia, Numbness Physical Exam Vital Signs/Narrative: Vital Signs Temp Pulse Resp BP Pulse Ox 06/28/20 21:50 99.0 F 65 20 H 124/59 H 96 Inital Vital Signs reviewed: Yes General: Well nourished, Well developed, No Acute Distress Head: Normocephalic, Atraumatic Eyes: Perrl, EOMI ENT: Moist mucous membranes, No rhinorrhea Neck: Supple, Nontender Cardiovascular: Regular rate, Regular rhythm, No murmurs Respiratory: No distress, CTA bilaterally, Chest nontender Abdomen: Soft, Nontender, Nondistended, Normal bowel sounds Back: - - Patient has a lumbar support brace on. Extremities: Nontender, No edema Skin: Normal color, No rash Neurological: Alert, Oriented x3, Cranial nerves II-XII grossly intact, Normal Strength, Normal Sensation Psychological: Tearful Diagnostic/Tx/Re-eval Laboratory Last Values WBC 7.2 K/mm3 (4.4-11.0) 06/28/20 22:00 RBC 3.43 M/mm3 (4.2-5.4) L 06/28/20 22:00 Hgb 10.5 g/dL (12.0-15.0) L 06/28/20 22:00 Hct 31.4 % (37-47) L 06/28/20 22:00 MCV 91.5 fL (81-99) 06/28/20 22:00 MCH 30.6 pg (27.0-32.0) 06/28/20 22:00 MCHC 33.4 g/dL (32-36) 06/28/20 22:00 RDW Std Deviation 40.6 fl (35.1-43.9) 06/28/20 22:00 RDW Coeff of Marcia 12.1 % (11.6-14.6) 06/28/20 22:00 Plt Count 245 K/mm3 (150-450) 06/28/20 22:00 MPV 10.5 fl (6.2-12.0) 06/28/20 22:00 Immature Gran % (Auto) 0.800 % (0.0-0.9) 06/28/20 22:00 Neut % (Auto) 65.4 % (47-70) 06/28/20 22:00 Lymph % (Auto) 20.5 % (19-41) 06/28/20 22:00 [place] % (Auto) 10.7 % (0-10) H 06/28/20 22:00 Eos % (Auto) 1.9 % (0-5) 06/28/20 22:00 Baso % (Auto) 0.7 % (0-1) 06/28/20 22:00 Absolute Neuts (auto) 4.7 X10^3/uL (2.0-7.7) 06/28/20 22:00 Absolute Lymphs (auto) 1.48 X10^3/uL (0.83-4.51) 06/28/20 22:00 Nucleated RBC % 0 % (0-5) 06/28/20 22:00 Sodium 137 mmol/L (136-145) 06/28/20 23:15 Potassium 5.4 mmol/L (3.5-5.1) H 06/28/20 23:15 Chloride 102 mmol/L (98-107) 06/28/20 23:15 Carbon Dioxide 28.0 mmol/L (21.0-32.0) 06/28/20 23:15 Anion Gap 7 (5-15) 06/28/20 23:15 BUN 22 mg/dL (7-18) H 06/28/20 23:15 Creatinine 1.22 mg/dL (0.55-1.02) H 06/28/20 23:15 Estim Creat Clear Calc 46.33 ml/min 06/28/20 23:15 Est GFR (MDRD) Af Amer 59 mL/min (>60) L 06/28/20 23:15 Est GFR (MDRD) Non-Af 49 mL/min (>60) L 06/28/20 23:15 BUN/Creatinine Ratio 18.0 RATIO (10-20) 06/28/20 23:15 Glucose 106 mg/dL (74-106) 06/28/20 23:15 Calcium 10.7 mg/dL (8.5-10.1) H 06/28/20 23:15 Clinical Impression(s) from Imaging Studies Thoracic Spine X-Ray 06/28/20 22:36 IMPRESSION: 1. T11 vertebra moderate compression fracture without significant change compared to recent MR exam. No bony retropulsion. 2. No additional sites of acute fracture seen. at 0036 Reported and signed by: Johan Flores MD Electronically Signed: Johan Flores at 0:34 EDT Tel , Service support , Lumbar Spine X-Ray 06/28/20 23:00 IMPRESSION: 1. Stable findings with comparison to recent MRI. Known history of multiple myeloma. 2. Recent T11 vertebral compression fracture and L4 superior endplate acute Schmorl's node. L5 kyphoplasty. 3. No bony retropulsion identified. at 2352 Reported and signed by: Johan Flores MD Electronically Signed: Johan Flores at 23:51 EDT Tel , Service support , - Medical Decision Making Basic labs were obtained. Because the patient appears to be having pathologic fractures in her significant worsening of pain I wanted to ensure there is no new fractures or change in the existing fractures.?Patient states that she cannot lay down therefore a CT is not an option. Plain films were obtained. Patient received Dilaudid and Valium. Because of how much pain medication the patient has been taking at home and continued pain plan will be for admission to develop a pain regimen that can help her. ED Disposition - Plan for ED Patient: Disposition: Acute Care Hospital [facility] Diagnosis: Acute back pain, Thoracic vertebral fracture
[2020-06-28] MEDS: HYDROmorphone 1 MG/ML Syringe IV ×2 (22:08→22:39)
[2020-06-28] MEDS: 0.9% Normal Saline 1,000 ML 150 ML IV (22:08)
[2020-06-28] MEDS: diazePAM 5 MG Tablet PO (22:08)
[2020-06-28] MEDS: Ondansetron 4 MG/2 ML Vial IV (22:08)
[2020-06-28 22:14] LABS: Absolute Lymphocyte Count 1.48 X10^3/uL (0.83-4.51); Absolute Neutrophil Count 4.7 X10^3/uL (2.0-7.7); Basophil# 0.05 X10^3/uL; Basophil% 0.7 % (0-1); Eosinophil# 0.14 X10^3/uL; Eosinophils% 1.9 % (0-5); Hematocrit 31.4 % (37-47); Hemoglobin 10.5 g/dL (12.0-15.0); Lymphocyte # 1.48 X10^3/ul (4.0); Lymphocyte % 20.5 % (19-41); Mean Corp Hgb Conc 33.4 g/dL (32-36); Mean Corpuscular Hgb 30.6 pg (27.0-32.0); Mean Corpuscular Volume 91.5 fL (81-99); Mean Platelet Vol. 10.5 fl (6.2-12.0); Monocyte# 0.77 X10^3/uL; Monocyte% 10.7 % (0-10); NRBC Flagged by Analyzer 0 % (0-5); Neutrophil # 4.73 X10^3/uL (2.7-7.7); Neutrophil % 65.4 % (47-70); Platelet Count 245 K/mm3 (150-450); RBC Distribution Width CV 12.1 % (11.6-14.6); RBC Distribution Width SD 40.6 fl (35.1-43.9); Red Blood Count 3.43 M/mm3 (4.2-5.4); White Blood Count 7.2 K/mm3 (4.4-11.0)
--- NOTE | 2020-06-28 22:36 | RAD_ITS ---
HISTORY: UNCONTROLLABLE PAIN, RECENT MULTIPLE COMPRESSION FX'S. PT HAS MULTIPLE MYELOMA RECENT DIAGNOSIS FOLLOWING KYPHOPLASTY EXAMINATION/TECHNIQUE: XR Spine Thoracic 3 Views: COMPARISON: MR lumbar spine 06/09/2020 and thoracic spine x-ray 06/18/2013 FINDINGS: Generalized bony demineralization which limits bony detail. Lower thoracic minor levoscoliosis. As correlated with recent MR exam, recent moderate anterior wedge compression fracture of the T11 vertebra. T10-11 and T11-T12 disc space narrowing. Separate from the T11 vertebra, no recent fracture seen. Stable mild anterior wedging of the T8 vertebra. No bony retropulsion. Pedicles appear intact. RAD/Thoracic Spine 3 Views IMPRESSION: 1. T11 vertebra moderate compression fracture without significant change compared to recent MR exam. No bony retropulsion. 2. No additional sites of acute fracture seen. at 0036 Reported and signed by: Johan Flores MD Electronically Signed: Johan Flores, at 0:34 EDT Tel , Service support ,
[2020-06-28 22:50] VITALS: BP 127/62; PULSE 101; RESP 18
--- NOTE | 2020-06-28 23:00 | RAD_ITS ---
UNCONTROLLABLE PAIN, RECENT MULTIPLE COMPRESSION FX'S. PT HAS MULTIPLE MYELOMA RECENT DIAGNOSIS FOLLOWING KYPHOPLASTY EXAMINATION/TECHNIQUE: XR Spine Lumbar 3 Views: COMPARISON: MR lumbar spine exams 2019 and 06/03/2020 and lumbar spine x-ray 05/28/2020 FINDINGS: Generalized bony demineralization which limits bony detail. With comparison to recent MRI exam, no definite change. Minimal lumbar levoscoliosis. Prior L5 kyphoplasty. As correlated with recent MR exams, recent anterior wedge compression deformity of the T11 vertebra and recent Schmorl's node of the L4 superior endplate. No bony retropulsion identified. No spondylolisthesis. Poor visualization of the SI joints. RAD/Lumbar Spine 2 or 3 Views IMPRESSION: 1. Stable findings with comparison to recent MRI. Known history of multiple myeloma. 2. Recent T11 vertebral compression fracture and L4 superior endplate acute Schmorl's node. L5 kyphoplasty. 3. No bony retropulsion identified. at 2352 Reported and signed by: Johan Flores MD Electronically Signed: Johan Flores, at 23:51 EDT Tel , Service support ,
--- NOTE | 2020-06-28 23:39 | PCM.HP.STD ---
Problem List (1) Acute back pain Status: Acute (2) Thoracic vertebral fracture Status: Acute (3) Hemorrhoids Status: Chronic (4) Pain of sternum Status: Chronic (5) Pancreatitis Status: Chronic Qualifiers: Chronicity: acute Pancreatitis type: unspecified pancreatitis type Acute pancreatitis complication: unspecified Qualified Code(s): K85.90 - Acute pancreatitis without necrosis or infection, unspecified (6) Obesity Status: Chronic Qualifiers: Obesity type: due to excess calories Obesity classification: adult class 1 (BMI 30 - 34.9) (7) Former tobacco use Status: Chronic (8) Iron deficiency anemia Status: Chronic Qualifiers: Iron deficiency anemia type: unspecified iron deficiency Qualified Code(s): D50.9 - Iron deficiency anemia, unspecified (9) History of nausea and vomiting Status: Chronic (10) History of abdominal pain Status: Chronic History of Present Illness Date of Admission: 06/28/20 Chief Complaint: Back pain The patient is a 55 year old F who presents to the emergency department with excruciating lower back pain that goes to her bilateral hip bone. She describes her pain as sharp and achy. Her pain worsens with movement and improve somewhat with staying still. Because of her pain she is unable to do any activity. Her family brought a lift chair for her. However because of the pain she was unable to use the lift chair. Patient is being worked up outpatient for malignancy because of back pain. She sees pain management and spine surgery. A day before presentation her fentanyl patch was increased; and extra strength Tylenol was added to her regimen.. Further, she is on home fentanyl patch; sublingual morphine and muscle relaxant. Despite this regimen she continued to have excruciating pain. She had L5 compression fracture for which she had a kyphoplasty. She now has T11 compression fracture. Past Medical History Past Medical History (Chronic Problems): Chronic Problems (Last Reviewed 06/29/20 @ 03:[address] Allan Yost MD) Hemorrhoids (Chronic) Pain of sternum (Chronic) Pancreatitis (Chronic) Obesity (Chronic) Former tobacco use (Chronic) Iron deficiency anemia (Chronic) History of nausea and vomiting (Chronic) History of abdominal pain (Chronic) Medical History: Medical History (Last Reviewed 06/29/20 @ 03:[address] Allan Yost MD) Screening for intestinal cancer (Inactive) Z12.10 Pancreatitis (Chronic) K85.90 Obesity (Chronic) E66.9 Former tobacco use (Chronic) Z87.891 Renal cell cancer (Inactive) C64.9 Iron deficiency anemia (Chronic) D50.9 URI, acute (Inactive) J06.9 History of nausea and vomiting (Chronic) Z87.898 History of abdominal pain (Chronic) Z87.898 Arthritis M19.90 Back problem M53.9 Carpal tunnel syndrome G56.00 Endometriosis N80.9 Headache, migraine G43.909 History of pneumococcal infection Z86.19 Seasonal allergies J30.2 history of bone fracture Allergies latex Allergy (Mild, Verified 06/28/20 21:50) rash Penicillins Allergy (Verified 06/28/20 21:50) Unknown adhesive tape Adverse Reaction (Verified 06/28/20 21:50) Rash Home Medications: Ambulatory Orders Medication Instructions Recorded cycloBENZAPRine HCl [Flexeril] 10 mg PO TID PRN PRN 06/09/20 compress.stocking,knee,reg,lrg See Rx Instructions .ROUTE 06/18/20 .MEDSUPPLY #2 ea docusate sodium 50 mg capsule 50 mg PO DAILY 06/18/20 hydrocortisone 2.5 % topical cream 1 applic RC BID-QID PRN #28.35 g 06/18/20 with perineal applicator polyethylene glycol 3350 17 17 g PO DAILY 06/18/20 gram/dose oral powder [Hydrocortisone 2.5%/lidocaine 5% See Rx Instructions .ROUTE 06/28/20 ointment (compound)] .MEDSUPPLY Acetaminophen [Tylenol Extra 500 mg PO TID 06/28/20 Strength] Fentanyl 12 mcg TD Q72H 06/28/20 Fentanyl 12 mcg TD Q72H 06/28/20 Haloperidol 0.5 mg PO TID 06/28/20 Pregabalin 75 mg PO TID 06/28/20 morphine solution (IR) [Roxanol 6 mg SL Q4H PRN PRN 06/28/20 (IR oral solution)] Surgical History: Surgical History (Last Reviewed 06/29/20 @ 01:[address] 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 Allan Yost MD) Brother Asthma Malignant hyperthermia due to anesthesia Hypertension Grandfather Colon cancer Mother Heart disease Thyroid disorder COPD (chronic obstructive pulmonary disease) Arthritis Anemia Sister Breast cancer Hypertension Thyroid disorder Arthritis Father Bleeding disorder Cancer Myelodysplastic syndrome Chronic lymphocytic leukemia Alcohol abuse Aunt Myocardial infarction History Items: - - Patient notes a maternal family history of heart disease, specifically valvular heart disease, COPD with tobacco use history. Paternal Family History: Family History (Last Reviewed 06/29/20 @ 03:[address] Allan Yost MD) Brother Asthma Malignant hyperthermia due to anesthesia Hypertension Grandfather Colon cancer Mother Heart disease Thyroid disorder COPD (chronic obstructive pulmonary disease) Arthritis Anemia Sister Breast cancer Hypertension Thyroid disorder Arthritis Father Bleeding disorder Cancer Myelodysplastic syndrome Chronic lymphocytic leukemia Alcohol abuse Aunt Myocardial infarction History Items: - - Patient notes a history of heart disease, coronary disease status post PCI x1, lung cancer with tobacco use history. Review of Systems Constitutional: Denies: Chills, Fever, Weight Change HEENT: Denies: Head Aches, Sinus Congestion, Sinus Drainage Cardiovascular: Denies: Chest Pain, Palpitations Respiratory: Denies: Cough, Shortness of breath at rest, Sputum production Gastrointestinal: Denies: Abdominal Pain, Constipation, Vomiting Genitourinary: Denies: Dysuria Musculoskeletal: Reports: Back Pain. Denies: Joint Pain, Joint Tenderness Skin: Denies: Rash, Wounds Neurological: Denies: Numbness, Tingling, Focal weakness Psychiatric: Denies: Anxiety, Depression, Homicidal Ideations, Suicidal Ideations Hematologic/ Lymphatic: Denies: Easy Bruising, Easy Bleeding VTE Information - Inpt Only VTE Present on Admission: No VTE Mechan Device Prophylaxis: None VTE Pharm Prophylaxis ordered?: Yes Patient Problems: Active and Suspected Problems (Last Reviewed 06/29/20 @ 03:[address] Allan Yost MD) Acute back pain (Acute) Thoracic vertebral fracture (Acute) - Physical Exam Vitals/I&O's: Vital Signs Temp Pulse Resp BP Pulse Ox 99.0 F 65 20 H 124/59 H 96 06/28/20 21:50 06/28/20 21:50 06/28/20 21:50 06/28/20 21:50 06/28/20 21:50 Oxygen Delivery Method Room Air Weight: 97.7 kg Body Mass Index (BMI) 35.8 General: Alert, Oriented x3, Cooperative, - - In acute distress secondary to pain HEENT: Atraumatic, PERRLA, EOMI, Normocephalic Neck: Supple, No JVD, Negative Carotid Bruits Lungs: Clear to auscultation, Normal air movement, No rhonchi, No wheeze, No rales Cardiovascular: Regular rate, Regular Rhythm, Normal S1, Normal S2, No murmurs Abdomen: Bowel Sounds Present, Soft, Non Tender Extremities: No edema, Capillary Refill Less than 3 Seconds Skin: No rashes, No breakdown Musculoskeletal: No Tenderness to Palpation of Joints or Extremities Neurological: Cranial nerves II-XII grossly intact Psych/Mental Status: Normal Affect, Appropriate Laboratory Results 06/28/20 22:00: WBC 7.2, RBC 3.43 L, Hgb 10.5 L, Hct 31.4 L, MCV 91.5, MCH 30.6, MCHC 33.4, RDW Std Deviation 40.6, RDW Coeff of Marcia 12.1, Plt Count 245, MPV 10.5, Immature Gran % (Auto) 0.800, Neut % (Auto) 65.4, Lymph % (Auto) 20.5, [place] % (Auto) 10.7 H, Eos % (Auto) 1.9, Baso % (Auto) 0.7, Absolute Neuts (auto) 4.7, Absolute Lymphs (auto) 1.48, Nucleated RBC % 0 06/28/20 22:00: Sodium Cancelled, Potassium Cancelled, Chloride Cancelled, Carbon Dioxide Cancelled, Anion Gap Cancelled, BUN Cancelled, Creatinine Cancelled, Estim Creat Clear Calc Cancelled, Est GFR (MDRD) Af Amer Cancelled, Est GFR (MDRD) Non-Af Cancelled, BUN/Creatinine Ratio Cancelled, Glucose Cancelled, Calcium Cancelled 06/28/20 23:15: Sodium Pending, Potassium Pending, Chloride Pending, Carbon Dioxide Pending, Anion Gap Pending, BUN Pending, Creatinine Pending, Est GFR (MDRD) Af Amer Pending, Est GFR (MDRD) Non-Af Pending, BUN/Creatinine Ratio Pending, Glucose Pending, Calcium Pending Current Medications Hydromorphone HCl (Dilaudid Inj) 1 mg IV X1 PRN PRN Reason: Pain Last Admin: 06/28/20 22:39 Dose: 1 mg Documented by: Sodium Chloride () 1,000 mls @ 150 mls/hr IV .[id number] DANELLE Last Admin: 06/28/20 22:08 Dose: 150 mls/hr Documented by: Assessment/Plan All Active Problems (Last Reviewed 06/29/20 @ 03:[address] Allan Yost MD) Acute back pain (Acute) Thoracic vertebral fracture (Acute) The patient is a 55 year old F who presents to the emergency department with excruciating intractable back pain that goes into her bilateral hips. Intractable back pain secondary to likely malignancy; T1 compression fractures/acute Schmorl's node Lumbar x-rays showed recent T1 vertebral compression fracture; L4 superior endplate acute Schmorl's nodes and L5 kyphoplasty. CT scan of the back was recommended at the emergency department. However patient stated that she could not lay flat for the CT to be done. Received Dilaudid at the emergency department. Continue home fentanyl patch. 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 Dilaudid HATCHERY MANAGER basal and demand ordered. Bowel protocol and antiemetics IV ordered. Tylenol continued. Haldol continued. Flexeril PRN continued. Pregabalin continued Oncology consulted. DVT prophylaxis Subcutaneous Lovenox. Inpatient E&M: 59089 Init Hosp L3
[2020-06-28 23:44] LABS: Anion Gap 7 (5-15); BUN 22 mg/dL (7-18); Calcium,Total 10.7 mg/dL (8.5-10.1); Chloride 102 mmol/L (98-107); Creatinine, Serum 1.22 mg/dL (0.55-1.02); EST Glomerular Filtration Rate 49 mL/min (>60); Est Glom Filt Rate - Afr Amer 59 mL/min (>60); Estimated Creatinine Clearance 46.33 ml/min; Glucose 106 mg/dL (74-106); Potassium 5.4 mmol/L (3.5-5.1); Sodium Level 137 mmol/L (136-145)
[2020-06-28 23:50] VITALS: BP 111/60; PULSE 97
[2020-06-29] VITALS (11 sets, daily range): BP systolic 98–133; BP diastolic 53–76; PULSE 78–105; RESP 14–18; TEMP 36.3–37.2; O2SAT 92–100; BMI 35.6; BMI 35.7
[2020-06-29] MEDS: HYDROmorphone 0.5 MG/0.5 ML SYRINGE IV ×5 (01:05→20:51)
[2020-06-29] MEDS: cycloBENZAPRine HCl 10 MG Tablet PO ×3 (02:16→22:08)
[2020-06-29] MEDS: Acetaminophen 325 MG Tablet 650 MG PO ×2 (02:24→11:44)
[2020-06-29] MEDS: 0.9% Saline Lock 10 ML Syringe IV ×2 (02:35→06:49)
[2020-06-29] MEDS: HYDROmorphone PCA 0.2 MG/ML 100 ML BAG 20 MG IV (03:33)
--- NOTE | 2020-06-29 03:43 | NURSING ---
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
[2020-06-29] MEDS: Acetaminophen 500 MG Tablet PO (06:47)
[2020-06-29] MEDS: Pregabalin 75 MG Capsule PO ×3 (06:47→22:10)
--- NOTE | 2020-06-29 08:25 | MRI_ITS ---
STUDY: MRI THORACIC SPINE WITHOUT CONTRAST REASON FOR EXAM: Female, 55 years old. back pain -- severe mid back pain, hx renal ca 2013, more recent multiple myeloma dx, TECHNIQUE: Standardized fat and water weighted pulse sequences were obtained in the sagittal and axial planes. COMPARISON: 06/09/2020 FINDINGS: Normal kyphosis of the thoracic spine. There is no substantial scoliosis. There is no change in the moderate loss of height of the T11 vertebral body with decrease in marrow edema consistent with a resolving subacute compression fracture. There is no retropulsion into the spinal canal. There is a mild bilobed disc protrusion at T10/T11 which is unchanged. No cord compression. There are multiple small marrow replacing lesions throughout the thoracic spine particularly of T5 worrisome for metastatic disease or multiple myeloma. T1-2, T2-3, T3-4, T4-5, T5-6, T6-7, T7-8, T8-9, T9-10, T10-11, T11-12: Normal endplates. Normal disc hydration, heights and morphology of the corresponding intervertebral discs. Normal central canal and intervertebral neural foramina at the corresponding levels. Normal visualized thoracic cord. Normal conus medullaris that terminates at the L1.. The soft tissue structures are unremarkable. MRI/Spine Thoracic (Routine) IMPRESSION: Suspect metastatic disease or multiple myeloma but no new compression fracture. No change in the T11 compression fracture. Electronically Signed: Juan C Mckay MD at 12:31 EDT Tel , Service support ,
--- NOTE | 2020-06-29 08:42 | NURSING ---
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
--- NOTE | 2020-06-29 09:34 | PCM.CONS.B ---
Problem List (1) Thoracic vertebral fracture Status: Chronic Qualifiers: Thoracic vertebra fracture level: T11 Fracture morphology: wedge compression Fracture healing: with delayed healing (2) Acute back pain Status: Acute Qualifiers: Back pain location: thoracic back pain Back pain laterality: midline Qualified Code(s): M54.6 - Pain in thoracic spine (3) Acute renal injury Status: Acute (4) Multiple myeloma without remission Status: Suspected - Consult Date of Consult: 06/29/20 Consult patient requested by Dr. Yost for patient for myeloma present with acute severe back pain. My recommendation will be communicated to Dr. Barrera and also on electronic medical record. - Reason for Consult History of Present Illness Date of Admission: 06/28/20 Chief Complaint: Back pain The patient is a 55 year old F who presents to the emergency department with excruciating back pain that goes to her bilateral hip bone. She describes her pain as sharp and achy. Her pain worsens with movement and improve somewhat with keeping still. Because of her pain she is unable to do any activity months. Patient has been seeing Dr. Miles palliative care for pain management. She saw Dr. Quinones for pain management and spine surgery last month. A day before presentation her fentanyl patch was increased; and extra strength Tylenol was added to her regimen.. Further, she is on home fentanyl patch; sublingual morphine and muscle relaxant. Despite this regimen she continued to have excruciating pain. She had L5 compression fracture for which she had a kyphoplasty last month. She is being worked up for multiple myeloma. 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 Skeletal survey also confirmed multiple lytic lesions consistent with multiple myeloma Past Medical History Past Medical History (Chronic Problems): Chronic Problems (Last Reviewed 06/29/20 @ 03:[address] Allan Yost MD) Hemorrhoids (Chronic) Pain of sternum (Chronic) Pancreatitis (Chronic) Obesity (Chronic) Former tobacco use (Chronic) Iron deficiency anemia (Chronic) History of nausea and vomiting (Chronic) History of abdominal pain (Chronic) Medical History: Medical History (Last Reviewed 06/29/20 @ 03:[address] Allan Yost MD) Screening for intestinal cancer (Inactive) Z12.10 Pancreatitis (Chronic) K85.90 Obesity (Chronic) E66.9 Former tobacco use (Chronic) Z87.891 Renal cell cancer (Inactive) C64.9 Iron deficiency anemia (Chronic) D50.9 URI, acute (Inactive) J06.9 History of nausea and vomiting (Chronic) Z87.898 History of abdominal pain (Chronic) Z87.898 Arthritis M19.90 Back problem M53.9 Carpal tunnel syndrome G56.00 Endometriosis N80.9 Headache, migraine G43.909 History of pneumococcal infection Z86.19 Seasonal allergies J30.2 history of bone fracture Allergies latex Allergy (Mild, Verified 06/28/20 21:50) rash Penicillins Allergy (Verified 06/28/20 21:50) Unknown adhesive tape Adverse Reaction (Verified 06/28/20 21:50) Rash Home Medications: Ambulatory Orders Medication Instructions Recorded cycloBENZAPRine HCl [Flexeril] 10 mg PO TID PRN PRN 06/09/20 compress.stocking,knee,reg,lrg See Rx Instructions .ROUTE 06/18/20 .MEDSUPPLY #2 ea docusate sodium 50 mg capsule 50 mg PO DAILY 06/18/20 hydrocortisone 2.5 % topical cream 1 applic RC BID-QID PRN #28.35 g 06/18/20 with perineal applicator polyethylene glycol 3350 17 17 g PO DAILY 06/18/20 gram/dose oral powder [Hydrocortisone 2.5%/lidocaine 5% See Rx Instructions .ROUTE 06/28/20 ointment (compound)] .MEDSUPPLY Acetaminophen [Tylenol Extra 500 mg PO TID 06/28/20 Strength] Fentanyl 12 mcg TD Q72H 06/28/20 Fentanyl 12 mcg TD Q72H 06/28/20 Haloperidol 0.5 mg PO TID 06/28/20 Pregabalin 75 mg PO TID 06/28/20 morphine solution (IR) [Roxanol 6 mg SL Q4H PRN PRN 06/28/20 (IR oral solution)] Surgical History: Surgical History (Last Reviewed 06/29/20 @ 01:[address] 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 Allan Yost MD) Brother Asthma Malignant hyperthermia due to anesthesia Hypertension Grandfather Colon cancer Mother Heart disease Thyroid disorder COPD (chronic obstructive pulmonary disease) Arthritis Anemia Sister Breast cancer Hypertension Thyroid disorder Arthritis Father Bleeding disorder Cancer Myelodysplastic syndrome Chronic lymphocytic leukemia Alcohol abuse Aunt Myocardial infarction History Items: - - Patient notes a maternal family history of heart disease, specifically valvular heart disease, COPD with tobacco use history. Paternal Family History: Family History (Last Reviewed 06/29/20 @ 03:[address] Allan Yost MD) Brother Asthma Malignant hyperthermia due to anesthesia Hypertension Grandfather Colon cancer Mother Heart disease Thyroid disorder COPD (chronic obstructive pulmonary disease) Arthritis Anemia Sister Breast cancer Hypertension Thyroid disorder Arthritis Father Bleeding disorder Cancer Myelodysplastic syndrome Chronic lymphocytic leukemia Alcohol abuse Aunt Myocardial infarction History Items: - - Patient notes a history of heart disease, coronary disease status post PCI x1, lung cancer with tobacco use history. Review of Systems Constitutional: Denies: Chills, Fever, Weight Change HEENT: Denies: Head Aches, Sinus Congestion, Sinus Drainage Cardiovascular: Denies: Chest Pain, Palpitations Respiratory: Denies: Cough, Shortness of breath at rest, Sputum production Gastrointestinal: Denies: Abdominal Pain, Constipation, Vomiting Genitourinary: Denies: Dysuria Musculoskeletal: Reports: Back Pain. Denies: Joint Pain, Joint Tenderness Skin: Denies: Rash, Wounds Neurological: Denies: Numbness, Tingling, Focal weakness Psychiatric: Denies: Anxiety, Depression, Homicidal Ideations, Suicidal Ideations Hematologic/ Lymphatic: Denies: Easy Bruising, Easy Bleeding Acute back pain (Acute) Thoracic vertebral fracture (Acute) - Physical Exam Vitals/I&O's: Vital Signs Temp Pulse Resp BP Pulse Ox 99.0 F 65 20 H 124/59 H 96 06/28/20 21:50 06/28/20 21:50 06/28/20 21:50 06/28/20 21:50 06/28/20 21:50 Oxygen Delivery Method Room Air Weight: 97.7 kg Body Mass Index (BMI) 35.8 General: Alert, Oriented x3, Cooperative, - - In acute distress secondary to pain HEENT: Atraumatic, PERRLA, EOMI, Normocephalic Neck: Supple, No JVD, Negative Carotid Bruits Lungs: Clear to auscultation, Normal air movement, No rhonchi, No wheeze, No rales Cardiovascular: Regular rate, Regular Rhythm, Normal S1, Normal S2, No murmurs Abdomen: Bowel Sounds Present, Soft, Non Tender Extremities: No edema, Capillary Refill Less than 3 Seconds Skin: No rashes, No breakdown Musculoskeletal: No Tenderness to Palpation of Joints or Extremities Neurological: Cranial nerves II-XII grossly intact Psych/Mental Status: Normal Affect, Appropriate Laboratory Results 06/28/20 22:00: WBC 7.2, RBC 3.43 L, Hgb 10.5 L, Hct 31.4 L, MCV 91.5, MCH 30.6, MCHC 33.4, RDW Std Deviation 40.6, RDW Coeff of Marcia 12.1, Plt Count 245, MPV 10.5, Immature Gran % (Auto) 0.800, Neut % (Auto) 65.4, Lymph % (Auto) 20.5, [place] % (Auto) 10.7 H, Eos % (Auto) 1.9, Baso % (Auto) 0.7, Absolute Neuts (auto) 4.7, Absolute Lymphs (auto) 1.48, Nucleated RBC % 0 06/28/20 22:00: Sodium Cancelled, Potassium Cancelled, Chloride Cancelled, Carbon Dioxide Cancelled, Anion Gap Cancelled, BUN Cancelled, Creatinine Cancelled, Estim Creat Clear Calc Cancelled, Est GFR (MDRD) Af Amer Cancelled, Est GFR (MDRD) Non-Af Cancelled, BUN/Creatinine Ratio Cancelled, Glucose Cancelled, Calcium Cancelled 06/28/20 23:15: Sodium Pending, Potassium Pending, Chloride Pending, Carbon Dioxide Pending, Anion Gap Pending, BUN Pending, Creatinine Pending, Est GFR (MDRD) Af Amer Pending, Est GFR (MDRD) Non-Af Pending, BUN/Creatinine Ratio Pending, Glucose Pending, Calcium Pending Current Medications Hydromorphone HCl (Dilaudid Inj) 1 mg IV X1 PRN PRN Reason: Pain Last Admin: 06/28/20 22:39 Dose: 1 mg Documented by: Sodium Chloride () 1,000 mls @ 150 mls/hr IV .[id number] DANELLE Last Admin: 06/28/20 22:08 Dose: 150 mls/hr Documented by: XRay: Thoracic and Lumbar Spine IMPRESSION: 1. Stable findings with comparison to recent MRI. Known history of multiple myeloma. 2. Recent T11 vertebral compression fracture and L4 superior endplate acute Schmorl's node. L5 kyphoplasty. 3. No bony retropulsion identified. Assessment/Plan All Active Problems (Last Reviewed 06/29/20 @ 03:[address] Allan Yost MD) Acute back pain (Acute) Thoracic vertebral fracture (Acute) In summary, this is a 55-year-old lady with severe back pain for couple months and multiple compression fractures secondary to multiple myeloma ( [place] [employer] ). Outpatient management of pain was inadequate and subsequently she was admitted this weekend for pain and symptoms management. -Intractable pain secondary to multiple myeloma -Acute renal injury -Anemia -Hypercalcemia Recommendations: - MRI thoracic spine without contrast today - Continue IV fluid and monitor renal functions & calcium level - Start Decadron 20 mg BID x 4 days - Pepcid 20 mg BID - Follow up with Dr. Duyen Miles for pain and symptoms as outpatient - Stool softeners and laxative as needed - Check COVID test if she is still here tomorrow for procedure. - She is scheduled for Bone marrow biopsy next Weds in my office. cc: Dr. Suman Barrera, Dr. Duyen Miles, Dr. Petey Nichols, Dr. Pia Gambino
[2020-06-29] MEDS: Polyethylene Glycol 3350 17 GM PACKET PO (09:42)
[2020-06-29] MEDS: Famotidine 20 MG Tablet PO ×2 (10:04→22:10)
[2020-06-29] MEDS: dexAMETHasone 4 MG Tablet 20 MG PO ×2 (10:04→16:29)
--- NOTE | 2020-06-29 11:02 | PN_ITS ---
Patient Problems: Active and Suspected Problems (Last Reviewed 06/29/20 @ 03:[address] Allan Yost MD) Acute back pain (Acute) Acute renal injury (Acute) Multiple myeloma without remission (Suspected) Reason for Visit: back pain Subjective: For about 1 month, has had back pain. Back pain is at the bra line and radiates through her lower back. No radicular symptoms. No bowel or bladder incontinence. Vitals/I&O's: Vital Signs Temp Pulse Resp BP Pulse Ox 36.6 C 88 16 110/67 98 06/29/20 08:30 06/29/20 08:30 06/29/20 08:30 06/29/20 08:30 06/29/20 08:30 Oxygen Flow Rate (L/min) 2 Oxygen Delivery Method Nasal Cannula Weight: 91.3 kg Body Mass Index (BMI) 35.6 Intake and Output for Last 24 Hours 06/27/20 06/28/20 06/29/20 23:59 23:59 23:59 Intake Total 1180 / 1180 Balance 1180 / 1180 General: Alert, No apparent distress HEENT: Atraumatic, Normocephalic Oral: Moist Mucosa, No Gingival or Mucosal Lesions/ Ulcerations Neck: No Nodes, Thyroid Normal Size and Texture Lungs: Clear to auscultation, Normal air movement, No rhonchi, No wheeze Cardiovascular: Regular rate, Regular Rhythm, Normal S1, Normal S2, No murmurs Abdomen: Bowel Sounds Present, Soft, Non Tender, Non-Distended, No Hepato- splenomegaly Extremities: No edema, No Calf Tenderness Skin: No rashes, No breakdown Laboratory Results 06/28/20 22:00: WBC 7.2, RBC 3.43 L, Hgb 10.5 L, Hct 31.4 L, MCV 91.5, MCH 30.6, MCHC 33.4, RDW Std Deviation 40.6, RDW Coeff of Marcia 12.1, Plt Count 245, MPV 10.5, Immature Gran % (Auto) 0.800, Neut % (Auto) 65.4, Lymph % (Auto) 20.5, [place] % (Auto) 10.7 H, Eos % (Auto) 1.9, Baso % (Auto) 0.7, Absolute Neuts (auto) 4.7, Absolute Lymphs (auto) 1.48, Nucleated RBC % 0 06/28/20 22:00: Sodium Cancelled, Potassium Cancelled, Chloride Cancelled, Carbon Dioxide Cancelled, Anion Gap Cancelled, BUN Cancelled, Creatinine Cancelled, Estim Creat Clear Calc Cancelled, Est GFR (MDRD) Af Amer Cancelled, Est GFR (MDRD) Non-Af Cancelled, BUN/Creatinine Ratio Cancelled, Glucose Cancelled, Calcium Cancelled 06/28/20 23:15: Sodium 137, Potassium 5.4 H, Chloride 102, Carbon Dioxide 28.0, Anion Gap 7, BUN 22 H, Creatinine 1.22 H, Estim Creat Clear Calc 46.33, Est GFR (MDRD) Af Amer 59 L, Est GFR (MDRD) Non-Af 49 L, BUN/Creatinine Ratio 18.0, Glucose 106, Calcium 10.7 H Current Medications Acetaminophen (Tylenol) 650 mg PO Q6H PRN PRN PRN Reason: Pain Score 1-10/Temp > 100.7 F Last Admin: 06/29/20 02:24 Dose: 650 mg Documented by: Acetaminophen (Tylenol) 500 mg PO TID [facility] Last Admin: 06/29/20 06:47 Dose: 500 mg Documented by: Bisacodyl (Dulcolax) 10 mg RECTAL .X1 PRN PRN PRN Reason: See label comments Bisacodyl (Dulcolax) 10 mg PO .X1 PRN PRN PRN Reason: See label comments Cyclobenzaprine HCl (Flexeril) 10 mg PO TID PRN PRN PRN Reason: muscle spasm Last Admin: 06/29/20 02:16 Dose: 10 mg Documented by: [facility] Stop: 07/03/20 17:01 Last Admin: 06/29/20 10:04 Dose: 20 mg Documented by: Diphenhydramine HCl (Benadryl) 12.5 - 25 mg IV Q6H PRN PRN PRN Reason: ITCHING Diphenhydramine HCl (Benadryl) 12.5 - 25 mg PO Q6H PRN PRN PRN Reason: Pruritis Famotidine (Pepcid) 20 mg PO BID [facility] Last Admin: 06/29/20 10:04 Dose: 20 mg Documented by: Fentanyl (Duragesic Patch) 24 mcg TRANSDERM. Q72H [facility] Last Admin: 06/29/20 04:16 Dose: 24 mcg Documented by: Haloperidol (Haldol) 0.5 mg PO TID PRN PRN PRN Reason: NAUSEA Hydrocortisone (Hytone) 1 applic TOPICAL Q6H PRN PRN PRN Reason: hemorrhoids Hydromorphone HCl (Dilaudid Inj) 0.5 mg IV Q3H PRN PRN PRN Reason: breakthrough pain Last Admin: 06/29/20 09:39 Dose: 0.5 mg Documented by: Sodium Chloride () 250 mls @ 15 mls/hr IV .[id number] PRN PRN Reason: Saline Flush Naloxone HCl 4 mg/ Dextrose 504 mls @ 0 mls/hr IV .Q0M PRN; Protocol PRN Reason: To maintain Resp. rate >10 Naloxone HCl (Narcan) 0.02 mg IV Q1M PRN PRN Reason: RR <10 and pt unresponsive Ondansetron HCl (Zofran) 4 mg IV Q8H PRN PRN PRN Reason: NAUSEA/VOMITING Oxycodone HCl (Oxyir) 5 mg PO Q4H PRN PRN PRN Reason: Pain Score 4-5/10 Oxycodone HCl (Oxyir) 10 mg PO Q4H PRN PRN PRN Reason: Pain Score 6-10/10 Polyethylene Glycol (Miralax) 17 gm PO DAILY [facility] Last Admin: 06/29/20 09:42 Dose: 17 gm Documented by: Pregabalin (Lyrica) 75 mg PO TID [facility] Last Admin: 06/29/20 06:47 Dose: 75 mg Documented by: Senna/Docusate Sodium (Senokot-S, Veronique-Colace) 2 tablet PO QHS [facility] Sodium Chloride () 10 - 40 ml IV UD PRN PRN Reason: SALINE FLUSH Last Admin: 06/29/20 06:49 Dose: 10 ml Documented by: Sodium Chloride () 10 - 40 ml IV UD PRN PRN Reason: SALINE FLUSH STROKE Vital Signs/Narrative: Vital Signs Temp Pulse Resp BP Pulse Ox 06/29/20 08:30 36.6 C 88 16 110/67 98 06/29/20 07:33 36.6 C 78 16 109/66 99 Medical Necessity - Tobacco Use Smoking Status: Former smoker Tobacco Use: Cigarettes Assessment/Plan All Active Problems (Last Reviewed 06/29/20 @ 03:[address] Allan Yost MD) Acute back pain (Acute) Acute renal injury (Acute) 1. acute back pain * acute worsening, but began 1 month ago * put on dilaudid cable splicer assistant pump. DW patient that she is at risk for overdose particularly with fentanyl patch. * DC dilaudid cable splicer assistant, start PRN oxycodone and breakthrough dilaudid in addition to continuing fentanyl patch * check MRI T spine * DW Dr. Nichols. He is concerned about this being MM. * he has started dexamethasone. 2. multiple myeloma * pt to have BMBx on 07/[address] Nichols. If still hospitalized on 07/01, he requests a COVID-19 test 3. Elevated creatinine * IVF * monitor 4. VTE prophylaxis: SCDs Inpatient E&M: 47231 Subs Hosp L2
[2020-06-29] MEDS: oxyCODONE 5 MG Tablet 10 MG PO ×3 (11:43→22:19)
[2020-06-29] MEDS: Haloperidol 1 MG Tablet 0.5 MG PO (11:43)
[2020-06-29] MEDS: Ondansetron 4 MG/2 ML Vial IV (11:47)
[2020-06-29] MEDS: 0.9% Normal Saline 1,000 ML 125 ML IV (11:50)
[2020-06-29] MEDS: Lidocaine 5% Patch 1 PATCH TOPICAL (15:15)
[2020-06-29] MEDS: Senna/Docusate Sodium 1 Tablet 2 TABLET PO (22:09)
[2020-06-29] MEDS: Acetaminophen 500 MG Tablet 1000 MG PO (22:19)
[2020-06-30 02:32] VITALS: BP 109/54; PULSE 78; RESP 18; TEMP 36.4; O2SAT 94
[2020-06-30] MEDS: HYDROmorphone 0.5 MG/0.5 ML SYRINGE IV ×5 (02:42→18:17)
[2020-06-30] MEDS: 0.9% Saline Lock 10 ML Syringe IV ×2 (02:43→14:25)
[2020-06-30] MEDS: Pregabalin 75 MG Capsule PO ×3 (05:46→22:20)
[2020-06-30] MEDS: Acetaminophen 500 MG Tablet 1000 MG PO ×3 (05:46→22:21)
[2020-06-30] MEDS: oxyCODONE 5 MG Tablet 10 MG PO ×2 (05:46→20:04)
[2020-06-30 05:50] LABS: Absolute Lymphocyte Count 0.42 X10^3/uL (0.83-4.51); Absolute Neutrophil Count 6.7 X10^3/uL (2.0-7.7); Basophil# 0.01 X10^3/uL; Basophil% 0.1 % (0-1); Hematocrit 27.5 % (37-47); Hemoglobin 9.3 g/dL (12.0-15.0); Lymphocyte # 0.42 X10^3/ul (4.0); Lymphocyte % 5.7 % (19-41); Mean Corp Hgb Conc 33.8 g/dL (32-36); Mean Corpuscular Hgb 30.8 pg (27.0-32.0); Mean Corpuscular Volume 91.1 fL (81-99); Mean Platelet Vol. 9.6 fl (6.2-12.0); Monocyte# 0.21 X10^3/uL; Monocyte% 2.9 % (0-10); NRBC Flagged by Analyzer 0 % (0-5); Neutrophil # 6.69 X10^3/uL (2.7-7.7); Neutrophil % 90.9 % (47-70); POSITIVE DIFFERENTIAL YES; Platelet Count 206 K/mm3 (150-450); RBC Distribution Width CV 11.6 % (11.6-14.6); RBC Distribution Width SD 38.8 fl (35.1-43.9); Red Blood Count 3.02 M/mm3 (4.2-5.4); White Blood Count 7.4 K/mm3 (4.4-11.0)
[2020-06-30 06:05] LABS: Anion Gap 4 (5-15); BUN 18 mg/dL (7-18); BUN/Creat Ratio 23.6 RATIO (10-20); Calcium,Total 9.9 mg/dL (8.5-10.1); Chloride 104 mmol/L (98-107); Creatinine, Serum 0.76 mg/dL (0.55-1.02); EST Glomerular Filtration Rate 83 mL/min (>60); Est Glom Filt Rate - Afr Amer 101 mL/min (>60); Estimated Creatinine Clearance 68.37 ml/min; Glucose 136 mg/dL (74-106); Potassium 4.6 mmol/L (3.5-5.1); Sodium Level 138 mmol/L (136-145)
[2020-06-30 06:09] LABS: Differential Indicated SCAN CRITERIA MET
[2020-06-30 06:44] LABS: Differential Comment SCANNED
[2020-06-30] MEDS: cycloBENZAPRine HCl 10 MG Tablet PO ×2 (07:04→14:24)
[2020-06-30 07:20] VITALS: O2SAT 93
--- NOTE | 2020-06-30 08:24 | PN_ITS ---
Progress Note Oncology progress note: Patient still has significant pain in her hip and lower back. Stable compression fracture at T11. Calcium and renal function improved with hydration. Unable to walk without pain or perform ADLs at this time because of severe pain. Decreased functional capacity. She denied nausea vomiting. No bowel movement since yesterday. Laboratory Results - last 24 hr 06/30/20 06/30/20 05:44 05:44 WBC 7.4 RBC 3.02 L Hgb 9.3 L Hct 27.5 L MCV 91.1 MCH 30.8 MCHC 33.8 RDW Std Deviation 38.8 RDW Coeff of Marcia 11.6 Plt Count 206 MPV 9.6 Immature Gran % (Auto) 0.400 Neut % (Auto) 90.9 H Lymph % (Auto) 5.7 L [place] % (Auto) 2.9 Eos % (Auto) 0.0 Baso % (Auto) 0.1 Absolute Neuts (auto) 6.7 Absolute Lymphs (auto) 0.42 L Nucleated RBC % 0 Differential Comment SCANNED Sodium 138 Potassium 4.6 Chloride 104 Carbon Dioxide 30.0 Anion Gap 4 L BUN 18 Creatinine 0.76 Estim Creat Clear Calc 68.37 Est GFR (MDRD) Af Amer 101 Est GFR (MDRD) Non-Af 83 BUN/Creatinine Ratio 23.6 H Glucose 136 H Calcium 9.9 MRI thoracic spine: COMPARISON: 06/09/2020 FINDINGS: Normal kyphosis of the thoracic spine. There is no substantial scoliosis. There is no change in the moderate loss of height of the T11 vertebral body with decrease in marrow edema consistent with a resolving subacute compression fracture. There is no retropulsion into the spinal canal. There is a mild bilobed disc protrusion at T10/T11 which is unchanged. No cord compression. There are multiple small marrow replacing lesions throughout the thoracic spine particularly of T5 worrisome for metastatic disease or multiple myeloma. T1-2, T2-3, T3-4, T4-5, T5-6, T6-7, T7-8, T8-9, T9-10, T10-11, T11-12: Normal endplates. Normal disc hydration, heights and morphology of the corresponding intervertebral discs. Normal central canal and intervertebral neural foramina at the corresponding levels. Normal visualized thoracic cord. Normal conus medullaris that terminates at the L1.. The soft tissue structures are unremarkable. IMPRESSION: Suspect metastatic disease or multiple myeloma but no new compression fracture. No change in the T11 compression fracture. Assessment/Plan: 1)Intractable pain secondary to multiple myeloma 2)Acute renal injury 3)Anemia 4)Hypercalcemia Recommendations: -Continue with pain management and physical therapy evaluation -Image guided bone marrow biopsy today. Check flow cytometry for myeloma and FISH myeloma panel on bone marrow aspirate -Will update Dr. Quinones and Dr. Miles of her progress. -Continue Decadron 40mg/day cc: Dr. Suman Barrera, Dr. Antoine Nichols, Dr. Duyen Miles STROKE Vital Signs/Narrative: Vital Signs Pulse Ox 06/30/20 07:20 93
[2020-06-30 09:00] VITALS: BP 110/65; PULSE 90; RESP 18; TEMP 36.6; O2SAT 94
--- NOTE | 2020-06-30 09:29 | PCM.PN.HOSP ---
Patient Problems: Active and Suspected Problems (Last Reviewed 06/29/20 @ 03:[address] Allan Yost MD) Acute back pain (Acute) Acute renal injury (Acute) Multiple myeloma without remission (Suspected) Reason for Visit: back pain Subjective: back pain better overall, currently at 5/10. Vitals/I&O's: Vital Signs Temp Pulse Resp BP Pulse Ox 36.4 C L 78 18 109/54 L 93 06/30/20 02:32 06/30/20 02:32 06/30/20 02:32 06/30/20 02:32 06/30/20 07:20 Oxygen Flow Rate (L/min) 2 Oxygen Delivery Method Room Air Weight: 91.3 kg Body Mass Index (BMI) 35.6 Intake and Output for Last 24 Hours 06/28/20 06/29/20 06/30/20 23:59 23:59 23:59 Intake Total 3680 / 4180 700 / 700 Output Total 1000 / 1500 900 / 900 Balance 2680 / 2680 -200 / -200 General: Alert, No apparent distress HEENT: Atraumatic, Normocephalic Oral: Moist Mucosa, No Gingival or Mucosal Lesions/ Ulcerations Neck: No Nodes, Thyroid Normal Size and Texture Lungs: Clear to auscultation, Normal air movement, No rhonchi, No wheeze, No rales Cardiovascular: Regular rate, Regular Rhythm, Normal S1, Normal S2, No murmurs Abdomen: Bowel Sounds Present, Soft, Non Tender, Non-Distended, No Hepato-splenomegaly Extremities: No edema, No Calf Tenderness Psych/Mental Status: Normal Affect, Appropriate Laboratory Results 06/30/20 05:44: WBC 7.4, RBC 3.02 L, Hgb 9.3 L, Hct 27.5 L, MCV 91.1, MCH 30.8, MCHC 33.8, RDW Std Deviation 38.8, RDW Coeff of Marcia 11.6, Plt Count 206, MPV 9.6, Immature Gran % (Auto) 0.400, Neut % (Auto) 90.9 H, Lymph % (Auto) 5.7 L, [place] % (Auto) 2.9, Eos % (Auto) 0.0, Baso % (Auto) 0.1, Absolute Neuts (auto) 6.7, Absolute Lymphs (auto) 0.42 L, Nucleated RBC % 0, Differential Comment SCANNED 06/30/20 05:44: Sodium 138, Potassium 4.6, Chloride 104, Carbon Dioxide 30.0, Anion Gap 4 L, BUN 18, Creatinine 0.76, Estim Creat Clear Calc 68.37, Est GFR (MDRD) Af Amer 101, Est GFR (MDRD) Non-Af 83, BUN/Creatinine Ratio 23.6 H, Glucose 136 H, Calcium 9.9 Current Medications Acetaminophen (Tylenol) 650 mg PO Q6H PRN PRN PRN Reason: Pain Score 1-10/Temp > 100.7 F Last Admin: 06/29/20 11:44 Dose: 650 mg Documented by: Acetaminophen (Tylenol) 1,000 mg PO TID [facility] Last Admin: 06/30/20 05:46 Dose: 1,000 mg Documented by: Bisacodyl (Dulcolax) 10 mg RECTAL .X1 PRN PRN PRN Reason: See label comments Bisacodyl (Dulcolax) 10 mg PO .X1 PRN PRN PRN Reason: See label comments Cyclobenzaprine HCl (Flexeril) 10 mg PO TID PRN PRN PRN Reason: muscle spasm Last Admin: 06/30/20 07:04 Dose: 10 mg Documented by: [facility]) [facility] Stop: 07/03/20 17:01 Last Admin: 06/29/20 16:29 Dose: 20 mg Documented by: Diphenhydramine HCl (Benadryl) 12.5 - 25 mg IV Q6H PRN PRN PRN Reason: ITCHING Diphenhydramine HCl (Benadryl) 12.5 - 25 mg PO Q6H PRN PRN PRN Reason: Pruritis Famotidine (Pepcid) 20 mg PO BID [facility] Last Admin: 06/29/20 22:10 Dose: 20 mg Documented by: Fentanyl (Duragesic Patch) 24 mcg TRANSDERM. Q72H [facility] Last Admin: 06/29/20 04:16 Dose: 24 mcg Documented by: Haloperidol (Haldol) 0.5 mg PO TID PRN PRN PRN Reason: NAUSEA Last Admin: 06/29/20 11:43 Dose: 0.5 mg Documented by: Hydrocortisone (Hytone) 1 applic TOPICAL Q6H PRN PRN PRN Reason: hemorrhoids Hydromorphone HCl (Dilaudid Inj) 0.5 mg IV Q3H PRN PRN PRN Reason: breakthrough pain Last Admin: 06/30/20 07:04 Dose: 0.5 mg Documented by: Sodium Chloride () 250 mls @ 15 mls/hr IV .[id number] PRN PRN Reason: Saline Flush Last Admin: 06/30/20 02:53 Dose: 15 mls/hr Documented by: Naloxone HCl 4 mg/ Dextrose 504 mls @ 0 mls/hr IV .Q0M PRN; Protocol PRN Reason: To maintain Resp. rate >10 Lidocaine (Lidoderm Patch) 1 patch TOPICAL DAILY [facility]; Protocol Last Admin: 06/29/20 15:15 Dose: 1 patch Documented by: Naloxone HCl (Narcan) 0.02 mg IV Q1M PRN PRN Reason: RR <10 and pt unresponsive Ondansetron HCl (Zofran) 4 mg IV Q8H PRN PRN PRN Reason: NAUSEA/VOMITING Last Admin: 06/29/20 11:47 Dose: 4 mg Documented by: Oxycodone HCl (Oxyir) 5 mg PO Q4H PRN PRN PRN Reason: Pain Score 4-5/10 Oxycodone HCl (Oxyir) 10 mg PO Q4H PRN PRN PRN Reason: Pain Score 6-10/10 Last Admin: 06/30/20 05:46 Dose: 10 mg Documented by: Polyethylene Glycol (Miralax) 17 gm PO DAILY [facility] Last Admin: 06/29/20 09:42 Dose: 17 gm Documented by: Pregabalin (Lyrica) 75 mg PO TID [facility] Last Admin: 06/30/20 05:46 Dose: 75 mg Documented by: Senna/Docusate Sodium (Senokot-S, Veronique-Colace) 2 tablet PO QHS [facility] Last Admin: 06/29/20 22:09 Dose: 2 tablet Documented by: Sodium Chloride () 10 - 40 ml IV UD PRN PRN Reason: SALINE FLUSH Last Admin: 06/30/20 02:43 Dose: 10 ml Documented by: Sodium Chloride () 10 - 40 ml IV UD PRN PRN Reason: SALINE FLUSH STROKE Vital Signs/Narrative: Vital Signs Pulse Ox 06/30/20 07:20 93 Medical Necessity - Tobacco Use Smoking Status: Former smoker Tobacco Use: Cigarettes Assessment/Plan All Active Problems (Last Reviewed 06/29/20 @ 03:[address] Allan Yost MD) Acute back pain (Acute) Acute renal injury (Acute) 1. acute back pain 2/2 MM and pathologic fractures acute worsening, but began 1 month ago Currently improved. 06/29: DC'd dilaudid moth proofer (high-risk for intentional OD) and started PRN oxycodone and breakthrough dilaudid in addition to continuing fentanyl patch MRI T spine showed pathologic fracture at T11, which had been seen on prior imaging at [facility] (not in our system) and also lesion in T5. No evidence of cord compression Did offer pain mgmt to see for evaluation of possible kyphoplasty of T11 lesion, however, Dr. Quinones (her regular pain mgmt physician is out of town). She would prefer to hold off for now. 2. multiple myeloma noted in axial spine and also in femurs Started on dexamethasone 20 BID on 06/[address] Magdalena Nichols recommneding BMBx be performed while in hospital rather than outpt as pt may not make that appointment on 07/02 given the current hospitalization Order placed. He requested flow cytometry and FISH myeloma panel (I had to put these under miscellaneous labs) 3. Elevated creatinine resolved with IVF 4. Debility profound debility due to pain she is open to going to a SNF upon discharge 5. VTE prophylaxis: SCDs DW patient's sister at bedside Greater than 35 minutes of which greater than 50% time was discussing with the patient and her sister about the back pain, work-up, kyphoplasty, multiple myeloma, bone marrow biopsy. Additionally discussing long-term facility and other rehab options. Also discussed with Dr. Nichols today. Inpatient E&M: 16819 Subs Hosp L3
[2020-06-30] MEDS: Lidocaine 5% Patch 1 PATCH TOPICAL (10:05)
[2020-06-30] MEDS: Famotidine 20 MG Tablet PO ×2 (10:06→22:21)
[2020-06-30] MEDS: dexAMETHasone 4 MG Tablet 20 MG PO ×2 (10:06→18:05)
[2020-06-30] MEDS: Polyethylene Glycol 3350 17 GM PACKET PO (10:06)
--- NOTE | 2020-06-30 10:18 | CASEMGMT ---
Social Work Note Per qa reviewer questions, pt has completed HCPOA and LW but haven't provided copy to [facility] and pt is able to bring in copies. Kerry Jason MARKETING EXECUTIVE, AUTOMATIC CHIEF
--- NOTE | 2020-06-30 11:15 | CASEMGMT ---
STACI BLANCA Face to Face with patient for initial transition planning/care coordination assessment. RN EVANGELIST introduced self and role at [facility]. Patient lying in bed, alert and oriented, sister at bedside. Patient willing to participate in assessment and is able to answer all questions appropriately. Care providers, pharmacy, and demographics verified. Patient not sure of disposition at discharge. STACI BLANCA reviewed outpatient therapy, HHC, and SNF options with patient and sister. Patient states she has no further needs or concerns at this time. CM to follow for discharge planning needs that may arise. PCP: [facility] Specialists: Jose Eduardo, workgroup leader; Elier, pain; Magdalena, oncologist Preferred Pharmacy: [facility] Insurance: MMO Prescription Benefit: yes Living Will/HPOA: yes, sister Natalia Rodgers LNOK: sisters Living Arrangements: Patient lives with 9yo son in a 2 story home. Patient has not been able to ambulate the stairs and has been utilizing BSC. Patient is requiring assist of 1 for ADLs. Transportation: sisters DME/HHC: Patient has tub bench, BSC, raised toilet, cane, hospital bed, and lift chair at home. Family has been helping 24 hrs daily. Patient denies previous HHC or SNF. Patient is active with Palliative Care Disposition Plan: TBD by course of treatment. Kerry ROMAN, RN, CM
--- NOTE | 2020-06-30 13:21 | CASEMGMT ---
Social Work Note SW updated that pt is active with Palliative Care. DUKE placed a call to [facility] and spoke with Ngozi. Ngozi confirms pt is active with Palliative Care. Kerry Jason EMISSIONS INSPECTOR, CHECK OUT CASHIER
[2020-06-30 14:08] LABS: Mucous, Urine 0 SEEN /hpf (<or=2+)
[2020-06-30 14:20] LABS: Color, Urine Yellow (Yellow); Glucose, Dipstick Normal (Normal); Ketone-Dipstick Negative (Negative); Leukocyte Esterase-Dipstick 100 /ul (Negative); Nitrite-Dipstick Negative (Negative); Occult Blood-Urine 10 /ul (Negative); Protein-Dipstick 15 mg/dl (Negative); Specific Gravity, Urine 1.015 (1.002-1.030); Urine Bilirubin Dipstick Negative (Negative); Urine Clarity Sl. Cloudy (Clear); Urine Urobilinogen Normal (Normal)
[2020-06-30 14:28] LABS: Bacteria 1+ /hpf (None Seen); Red Blood Cells-Urine 0-5 SEEN /hpf (0-5); Squamous Epithelial Cells - UA 0-5 SEEN /hpf (5-10); White Blood Cells 10-25 SEEN /hpf (0-5)
[2020-06-30 15:00] VITALS: BP 108/65; PULSE 88; RESP 18; TEMP 36.7; O2SAT 94
[2020-06-30] MEDS: Ondansetron 4 MG/2 ML Vial IV (20:04)
[2020-06-30 20:07] VITALS: BP 104/61; PULSE 80; RESP 18; TEMP 36.8; O2SAT 92
[2020-06-30] MEDS: Senna/Docusate Sodium 1 Tablet 2 TABLET PO (22:20)
[2020-07-01] VITALS (15 sets, daily range): BP systolic 112–152; BP diastolic 49–113; PULSE 62–127; RESP 13–21; TEMP 36.4–36.7; O2SAT 93–100; BMI 33.3
--- NOTE | 2020-07-01 | IMM_PTH ---
PATIENT: ALVINO ESPITIA LOC: MS3 U#:[id number] AGE/SX: 55/F ROOM: MS313 RE06/28/[address]: Dr. Nate Bocanegra DO : 1965 BED: 1 DIS: 07/03/2020 SPEC #: [id number] RECD: 07/03/20 11:33 STATUS: SOUT REQ #: [id number] CAMILO: 07/01/20 00:[address]: Antoine Nichols DEPT: IMMUNOHISTOCHEMISTRY RECD BY: Alanna Murguia ENTERED: 07/03/20 11:34 SP TYPE: IMMUNO OTHR DR: MD Dr. Allan Frye MD Dr. Mark Tereletsky, DO Dr. Steve Walston, DO Tissues: B - Bone marrow of iliac crest Procedures: CD138 (initial) KAPPA (add) LAMBDA (add) PHYSICIAN & INSTITUTION [place] [id number] SPECIMEN INFORMATION: Tissue Source: B - Bone marrow clot Clinical Info: Intractable back pain Specimen Number: [id number] CPT code: 78582, 23012 x2 METHODOLOGY: Deparaffinized sections of prefer/formalin-fixed tissue or PAP/DQ stained slides are incubated with monoclonal/polyclonal antibodies/oligonucleotide probes. Localization is made via biotin free immunoperoxidase method. Appropriate controls are performed and reacted as expected. Results on target cell population are indicated in the following table: RESULTS: ANTIBODY / CLONE RESULT Block B CD138 (B-A38) positive [place] (polyclonal) positive Lambda (polyclonal) negative These tests were developed and their performance characteristics determined by [facility]. They may not have been cleared or approved by the U.S. Food and Drug Administration. The FDA has determined that such clearance or approval is not necessary. The above immunohistochemical/dualISH markers are ordered and reviewed by the pathologist. INTERPRETATION: B. Bone marrow clot: Mild increase of plasma cell noted with kappa monoclonality, consistent with plasma cell dyscrasia. SJ:shahzad 07/04/20 Case has been reviewed in consultation with Dr. Wall who concurs with the above diagnosis. IDC:[email or web address]
--- NOTE | 2020-07-01 | BMB_PTH ---
PATIENT: ALVINO ESPITIA LOC: MS3 U#:[id number] AGE/SX: 55/F ROOM: DC313 RE06/28/[address]: Dr. Ntae Bocanegra, : 1965 BED: 1 DIS: 07/03/2020 SPEC #: [id number] RECD: 07/01/20 13:00 STATUS: LISA REQ #: [id number] CAMILO: 07/01/20 00:[address]: Antoine Nichols DEPT: BONE MARROW RECD BY: Jonathan Dias ENTERED: 07/02/20 08:44 SP TYPE: BMB OTHR DR: MD Dr. Allan Frye MD Dr. Lapman Lun, MD Dr. Mark Tereletsky, Tissues: A - Bone marrow, NOS B - Bone marrow, NOS C - Bone marrow, NOS Procedures: Bone Marrow Aspiration Special Stain Group II Amyloid Stain (control) Bone Marrow Core Biopsy Iron Stain Bone Marrow Comments: @ Ordering doctor for DEC edited from to @ by GUDELIA at 07/02/2040 @ Ordering doctor for BMA edited from to DR.LLUN Cordon by GUDELIA at 07/02/2040 @ Ordering doctor for BMCB edited from to DR.LLUN Cordon by GUDELIA at 07/02/2040 @ Ordering doctor for FEBM edited from to DR.LLUN Cordon by GUDELIA at 07/02/20 0940 @ Submitting doctor edited from to DR.LLUN Bravo GALEAS at 07/02/20 0940 HEADER OPERATION: Bone marrow biopsy and aspiration PRE-OP DIAGNOSIS: Intractable back pain TISSUE SUBMITTED: A - Core, B - Clot, C - Smears, and send outs (flow, MM FISH) BONE MARROW DIAGNOSIS Right hip bone marrow core, clot and aspirate smears: 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 Iron - 3-4+, atypical or ring sideroblasts are not seen. Flow cytometry study from [facility] does not show acute leukemia or increased blasts. There is no evidence of an abnormal myeloid population. Abnormalities associated with myelodysplasia and myeloproliferative neoplasms are absent. No evidence of B-cell lymphoma or atypical T-cell population. No evidence of plasma cell neoplasm. No evidence of monocytosis. The complete flow cytometry study is viewable in the patient's EMR. FISH studies are pending at this time. See comment. AZEB:shahzad 07/04/20 COMMENT The bone marrow core specimen consists of only blood clots. No bone marrow core or hematopoietic elements are noted. Please make reference to previous specimen ([id number]) bone L5, kyphoplasty with diagnosis of a piece of bone and blood clots with increased number of plasma cells with kappa monoclonality suspicious for Plasma cell dyscrasia. Correlation with clinical, laboratory, radiologic findings and appropriate follow up are necessary. Case has been reviewed in consultation with Dr. Wall who concurs with the above diagnosis. IDC:AM BONE MARROW STUDY Slides are reviewed. CBC DATE: 07/01/20 WBC 13.6; RBC 3.09; HGB 9.5; HCT 28.8; MCV 93.2; RDW 11.8; PLTS 242,000 SEGS 92.6%; LYMPHS 3.2%; MONOS 3.5%; EOS 0.0%; BASOS 0.1% PERIPHERAL SMEAR: Submitted. RBC: Normocytic anemia. WBC: Neutrophilic leukocytosis. The WBC count is compatible to as reported above. PLTS: Adequate. BONE MARROW ASPIRATE DIFFERENTIAL: 200 cell count. Blasts % (normal 0-2): 1 Promyelocytes % (normal 1-5): 2 Myelocytes and metamyelocytes % (normal 17-41): 17 Bands and Segs % (normal 15-32): 32 Eos % (normal 1-6): 2 Basos % (normal 0-1): 0 Monocytes % (normal 0-4): 0 Erythroid Precursors % (normal 17-35): 23 Lymphocytes % (normal 7-13): 8 Plasma Cells % (normal 0-2): 15 ASPIRATE FINDINGS: Site: Right hip Spicular, Cellular M/E ratio: 2.3 (Normal 1.5-4.0) Megakaryocytes: Present and normal morphology. Erythropoiesis: Normoblastic. Granulopoiesis: Progressive and unremarkable. Comment: Increased number of plasma cells are noted. A few immature plasma cells are also noted. They comprise about 5% of total plasma cell population. CORE BIOPSY FINDINGS: Site: Right hip Comment: The specimen only shows blood clot. Bone marrow core or hematopoietic elements are not seen. ASPIRATE CLOT FINDINGS: Site: Right hip Marrow particles: Numerous Cellularity: 50-80% M/E ratio: Within normal limits. Megakaryocytes: Present and adequate in number. Granulomas: Absent. Lymphoid aggregates: Absent. Atypical infiltrates: Present. Comment: Increased number of plasma cells are noted. Immunohistochemistry ([id number]) is consistent with involvement by plasma cell dyscrasia with kappa monoclonality. SPECIAL STAINS WITH MATCHED CONTROLS: Iron: 3-4+, atypical or ring sideroblasts are not seen. Reticulin: No significant increase of reticulin fibers is noted. PAS: Highlights myeloid cells and megakaryocytes. BONE MARROW GROSS A - Received is a container labeled with the patient's name and designated right iliac bone marrow. The specimen consists of multiple fragments of blood cells measuring in aggregate 1 x 1 x 0.1 cm. No obvious bone is identified. The specimen is totally submitted in one cassette after decalcification. B - Received labeled with the patient's name and designated bone marrow is a specimen that consists of approximately 10 cc of bloody fluid that on filtration yields multiple minute fragments of blood clots measuring in aggregate 3 x 2.5 x 0.3 cm. The specimen is totally submitted in one cassette. C - Also received are 14 unstained and 1 peripheral stained slides. The unstained slides are submitted for appropriate staining. Also received are two green top tubes which are sent to our reference lab for flow and MM FISH. / SJ:shahzad 07/02/20 TC:0 CPT: 20388, 17614, 03449 x2, 11648 x3 ADDENDUM ADDENDUM ADDENDUM ADDENDUM ADDENDUM ADDENDUM ADDENDUM ADDENDUM ADDENDUM ADDENDUM ADDENDUM ADDENDUM ADDENDUM 07/09/2020 09:32 ADDENDUM 12/02/2020 11:58 ADDENDUM 12/09/2020 09:20 ADDENDUM 07/09/2020 09:32 ADDENDUM 07/09/2020 09:32 ADDENDUM 07/09/2020 09:32 ADDENDUM 07/09/2020 09:32 FISH MYELOMA PROGNOSIS REPORT FROM [facility] INTERPRETATION: 1. No evidence of IGH-MAF [translocation t(14;16)] gene rearrangement 2. No evidence of RB1 monosomy (13q14 deletion). 3. No evidence of CCND1-IGH [translocation t(11;14)] gene rearrangement, and no evidence for trisomy 11 or gain of 11q. 4. No evidence of p53 (17p13) deletion or amplification. 5. No evidence of FGFR3-IGH [translocation t(4;14)] gene rearrangement. 6. Negative for 1q21/CKS1B gain Please see complete report in e-chart or EMR for further details B. Bone marrow clot, biopsy: [place] red stain for amyloid is negative, matched control is appropriate. SJ:shahzad 12/02/2020 Case has been reviewed in consultation with Dr. Wall who concurs with the above diagnosis. IDC:AM This addendum is added to incorporate an outside pathology consultation report. The case was examined at [facility] (#[id number]) and the following diagnosis was rendered. Bone marrow, biopsy core, aspirate clot, aspirate and peripheral blood smears: Plasma cell neoplasm (kappa) representing at least 30% of bone marrow cellularity. Cellular (50%) bone marrow with trilineage hematopoiesis. Please see complete above mentioned consultation report in EMR
[2020-07-01] MEDS: oxyCODONE 5 MG Tablet 10 MG PO ×5 (01:23→18:45)
[2020-07-01] MEDS: Acetaminophen 500 MG Tablet 1000 MG PO ×3 (05:37→21:13)
[2020-07-01] MEDS: Pregabalin 75 MG Capsule PO ×3 (05:38→21:15)
--- NOTE | 2020-07-01 06:39 | NURSING ---
At this time patient refused to get up to the BSC to void. When asked patient stated she did have to urge to void yet she wanted to wait. Will inform next shift.
[2020-07-01] MEDS: dexAMETHasone 4 MG Tablet 20 MG PO ×2 (09:13→17:10)
[2020-07-01] MEDS: Lidocaine 5% Patch 1 PATCH TOPICAL (09:13)
[2020-07-01] MEDS: Famotidine 20 MG Tablet PO ×2 (09:14→21:13)
[2020-07-01] MEDS: Polyethylene Glycol 3350 17 GM PACKET PO (09:14)
[2020-07-01] MEDS: Ceftriaxone 1 GM/50 ML BAG IV (09:14)
[2020-07-01] MEDS: cycloBENZAPRine HCl 10 MG Tablet PO ×2 (09:32→17:08)
--- NOTE | 2020-07-01 09:34 | CT_ITS ---
PROCEDURE: Bone marrow biopsy. DATE OF EXAMINATION: 07/01/2020. INDICATION: Female, 55 years old. Multiple myeloma. PHYSICIAN: Dr. ROOSEVELT Aguila RADIATION DOSAGE (If Supplied By Facility): CTDIvol = ( 15.2 ) mGy, DLP = ( 365.31 ) mGycm. Individualized dose optimization techniques were utilized. CONSENT: The risks, benefits and alternatives to the procedure were explained to the patient, and the patient agreed to the procedure and signed the consent. SEDATION: Conscious sedation was performed. The patient received 2 mg of VERSED and 50 mcg of FENTANYL intravenously. Conscious sedation was started at 1:12 PM and terminated at 1:22 PM. The patient was monitored independently by the department STERILE BARRIER TECHNIQUE: The following sterile barrier precautions were used during the procedure: hand hygiene; use of 2% chlorhexidine aseptic; use of a cap, mask, sterile gown, sterile gloves, sterile full body drape, and a large sterile sheet. PROCEDURE/TECHNIQUE: (All elements of maximal sterile barrier technique followed, including US elements as applicable) The risks, benefits, and alternatives to the procedure were explained to patient, and the patient agreed to the procedure and signed a consent form for the procedure. A timeout was performed to confirm the patient''s identity, the type of procedure, to be performed and the site of entry. The patient in the prone position. The overlying skin was prepped and draped in the usual sterile fashion. Following local anesthetic application, an 11-gauge bone marrow biopsy needle was placed into the posterior aspect of the right iliac bone. Bone marrow aspiration and bone marrow core were obtained. The patient tolerated the procedure well. CT/Biopsy/Inj or Needle Placement IMPRESSION: Successful bone marrow biopsy and aspiration. The patient tolerated the procedure well. Electronically Signed: Grady Carcamo, at 14:04 EDT , Service support ,
[2020-07-01] MEDS: 0.9% Saline Lock 10 ML Syringe IV ×3 (09:42→21:14)
[2020-07-01 09:59] LABS: Absolute Lymphocyte Count 0.44 X10^3/uL (0.83-4.51); Absolute Neutrophil Count 12.6 X10^3/uL (2.0-7.7); Basophil# 0.01 X10^3/uL; Basophil% 0.1 % (0-1); Hematocrit 28.8 % (37-47); Hemoglobin 9.5 g/dL (12.0-15.0); Lymphocyte # 0.44 X10^3/ul (4.0); Lymphocyte % 3.2 % (19-41); Mean Corpuscular Hgb 30.7 pg (27.0-32.0); Mean Corpuscular Volume 93.2 fL (81-99); Monocyte# 0.47 X10^3/uL; Monocyte% 3.5 % (0-10); NRBC Flagged by Analyzer 0 % (0-5); Neutrophil # 12.59 X10^3/uL (2.7-7.7); Neutrophil % 92.6 % (47-70); POSITIVE DIFFERENTIAL YES; Platelet Count 242 K/mm3 (150-450); RBC Distribution Width CV 11.8 % (11.6-14.6); RBC Distribution Width SD 39.8 fl (35.1-43.9); Red Blood Count 3.09 M/mm3 (4.2-5.4); White Blood Count 13.6 K/mm3 (4.4-11.0)
[2020-07-01 10:08] LABS: Differential Indicated SCAN CRITERIA MET
[2020-07-01 10:25] LABS: Differential Comment SCANNED
--- NOTE | 2020-07-01 10:51 | PN_ITS ---
Patient Problems: Active and Suspected Problems (Last Reviewed 06/29/20 @ 03:[address] Allan Yost MD) Acute back pain (Acute) Acute renal injury (Acute) Multiple myeloma without remission (Suspected) Reason for Visit: Acute low back pain Subjective: Patient is a 55-year-old lady with history of multiple myeloma admitted with back pain imaging studies obtained demonstrated Recent T11 vertebral compression fracture and L4 superior endplate acute Schmorl's node but admitted to regular nursing floor for symptom management with plans for patient to undergo bone biopsy Objective: GENERAL: cooperative HEENT: Atraumatic; EYES; Anicteric, Normal Conjunctiva NECK; supple, normal thyroid, RESPIRATORY: Diminished to auscultation CARDIOVASCULAR: Regular S1 S2, GI: soft, normoactive bowel sounds, : No Renal angle tenderness; EXTREMITIES: No edema, no clubbing, MUSCULOSKELETAL: no muscle waisting NEURO: Awake; no lateralizing signs. SKIN: No Rash PSYCH; Flat affect Vitals/I&O's: Vital Signs Temp Pulse Resp BP Pulse Ox 97.7 F L 84 18 124/65 H 96 07/01/20 09:00 07/01/20 09:00 07/01/20 09:00 07/01/20 09:00 07/01/20 09:00 Oxygen Flow Rate (L/min) 2 Oxygen Delivery Method Room Air Weight: 91.3 kg Body Mass Index (BMI) 35.6 Intake and Output for Last 24 Hours 06/29/20 06/30/20 07/01/20 23:59 23:59 23:59 Intake Total 3680 / 4180 929.75 / 929.75 534.5 / 534.5 Output Total 1000 / 1500 2200 / 2200 Balance 2680 / 2680 -1270.25 / -1270.25 534.5 / 534.5 Laboratory Results 06/30/20 14:00: Urine Color Yellow, Urine Clarity Sl. Cloudy, Urine pH 6.0, Ur Specific [place]ven[place] 1.015, Urine Protein 15 H, Urine Glucose (UA) Normal, Urine Ketones Negative, Urine Occult Blood 10 H, Urine Nitrite Negative, Urine Bilirubin Negative, Urine Urobilinogen Normal, Ur Leukocyte Esterase 100 H, Urine RBC 0-5 SEEN, Urine WBC 10-25 SEEN, Ur Squamous Epith Cells 0-5 SEEN, Urine Bacteria 1+, Urine Mucus 0 SEEN 07/01/20 09:40: WBC 13.6 H, RBC 3.09 L, Hgb 9.5 L, Hct 28.8 L, MCV 93.2, MCH 30.7, MCHC 33.0, RDW Std Deviation 39.8, RDW Coeff of Marcia 11.8, Plt Count 242, MPV 10.0, Immature Gran % (Auto) 0.600, Neut % (Auto) 92.6 H, Lymph % (Auto) 3.2 L, [place] % (Auto) 3.5, Eos % (Auto) 0.0, Baso % (Auto) 0.1, Absolute Neuts (auto) 12.6 H, Absolute Lymphs (auto) 0.44 L, Nucleated RBC % 0, Differential Comment SCANNED Current Medications Acetaminophen (Tylenol) 650 mg PO Q6H PRN PRN PRN Reason: Pain Score 1-10/Temp > 100.7 F Last Admin: 06/29/20 11:44 Dose: 650 mg Documented by: Acetaminophen (Tylenol) 1,000 mg PO TID [facility] Last Admin: 07/01/20 05:37 Dose: 1,000 mg Documented by: Bisacodyl (Dulcolax) 10 mg RECTAL .X1 PRN PRN PRN Reason: See label comments Bisacodyl (Dulcolax) 10 mg PO .X1 PRN PRN PRN Reason: See label comments Cyclobenzaprine HCl (Flexeril) 10 mg PO TID PRN PRN PRN Reason: muscle spasm Last Admin: 07/01/20 09:32 Dose: 10 mg Documented by: [facility] Stop: 07/03/20 17:01 Last Admin: 07/01/20 09:13 Dose: 20 mg Documented by: Diphenhydramine HCl (Benadryl) 12.5 - 25 mg IV Q6H PRN PRN PRN Reason: ITCHING Diphenhydramine HCl (Benadryl) 12.5 - 25 mg PO Q6H PRN PRN PRN Reason: Pruritis Famotidine (Pepcid) 20 mg PO BID [facility] Last Admin: 07/01/20 09:14 Dose: 20 mg Documented by: Fentanyl (Duragesic Patch) 24 mcg TRANSDERM. Q72H [facility] Last Admin: 06/29/20 04:16 Dose: 24 mcg Documented by: Haloperidol (Haldol) 0.5 mg PO TID PRN PRN PRN Reason: NAUSEA Last Admin: 06/29/20 11:43 Dose: 0.5 mg Documented by: Hydrocortisone (Hytone) 1 applic TOPICAL Q6H PRN PRN PRN Reason: hemorrhoids Hydromorphone HCl (Dilaudid Inj) 0.5 mg IV Q3H PRN PRN PRN Reason: breakthrough pain Last Admin: 06/30/20 18:17 Dose: 0.5 mg Documented by: Sodium Chloride () 250 mls @ 15 mls/hr IV .[id number] PRN PRN Reason: Saline Flush Last Admin: 07/01/20 09:41 Dose: 15 mls/hr Documented by: Naloxone HCl 4 mg/ Dextrose 504 mls @ 0 mls/hr IV .Q0M PRN; Protocol PRN Reason: To maintain Resp. rate >10 Ceftriaxone Sodium (Rocephin) 1 gm in 50 mls @ 100 mls/hr IV Q24 [facility] Last Admin: 07/01/20 09:14 Dose: 100 mls/hr Documented by: Lidocaine (Lidoderm Patch) 1 patch TOPICAL DAILY [facility]; Protocol Last Admin: 07/01/20 09:13 Dose: 1 patch Documented by: Naloxone HCl (Narcan) 0.02 mg IV Q1M PRN PRN Reason: RR <10 and pt unresponsive Ondansetron HCl (Zofran) 4 mg IV Q8H PRN PRN PRN Reason: NAUSEA/VOMITING Last Admin: 06/30/20 20:04 Dose: 4 mg Documented by: Oxycodone HCl (Oxyir) 5 mg PO Q4H PRN PRN PRN Reason: Pain Score 4-5/10 Oxycodone HCl (Oxyir) 10 mg PO Q4H PRN PRN PRN Reason: Pain Score 6-10/10 Last Admin: 07/01/20 09:42 Dose: 10 mg Documented by: Polyethylene Glycol (Miralax) 17 gm PO DAILY [facility] Last Admin: 07/01/20 09:14 Dose: 17 gm Documented by: Pregabalin (Lyrica) 75 mg PO TID [facility] Last Admin: 07/01/20 05:38 Dose: 75 mg Documented by: Senna/Docusate Sodium (Senokot-S, Veronique-Colace) 2 tablet PO QHS DANELLE Last Admin: 06/30/20 22:20 Dose: 2 tablet Documented by: Sodium Chloride () 10 - 40 ml IV UD PRN PRN Reason: SALINE FLUSH Last Admin: 07/01/20 09:42 Dose: 10 ml Documented by: Sodium Chloride () 10 - 40 ml IV UD PRN PRN Reason: SALINE FLUSH STROKE Vital Signs/Narrative: Vital Signs Temp Pulse Resp BP Pulse Ox 07/01/20 09:00 97.7 F L 84 18 124/65 H 96 07/01/20 07:04 94 Medical Necessity - Tobacco Use Smoking Status: Former smoker Tobacco Use: Cigarettes Assessment/Plan All Active Problems (Last Reviewed 06/29/20 @ 03:[address] Allan Yost MD) Acute back pain (Acute) Acute renal injury (Acute) Patient is a 55-year-old lady with history of multiple myeloma admitted with back pain imaging studies obtained demonstrated Recent T11 vertebral compression fracture and L4 superior endplate acute Schmorl's node but admitted to regular nursing floor for symptom management with plans for patient to undergo bone bi opsy 1. Acute back pain -imaging studies obtained demonstrated Recent T11 vertebral compression fracture and L4 superior endplate acute Schmorl's node admitted to regular nursing floor for symptom management with plans for patient to undergo bone biopsy 2. Multiple myeloma ?Patient is followed by Dr. Adame plan is for patient to undergo bone biopsy 3. Acute renal insufficiency ?Kidney function improved with rehydration 4. DVT prophylaxis ?Lovenox Clinical Impression(s) from Imaging Studies Thoracic Spine X-Ray 06/28/20 22:36 IMPRESSION: 1. T11 vertebra moderate compression fracture without significant change compared to recent MR exam. No bony retropulsion. 2. No additional sites of acute fracture seen. at 0036 Reported and signed by: Johan Flores MD Electronically Signed: Johan Flores, at 0:34 EDT Tel , Service support , Lumbar Spine X-Ray 06/28/20 23:00 IMPRESSION: 1. Stable findings with comparison to recent MRI. Known history of multiple myeloma. 2. Recent T11 vertebral compression fracture and L4 superior endplate acute Schmorl's node. L5 kyphoplasty. 3. No bony retropulsion identified. at 2352 Reported and signed by: Johan Flores MD Electronically Signed: Johan Flores, at 23:51 EDT Tel , Service support , Thoracic Spine MRI 06/29/20 08:25 IMPRESSION: Suspect metastatic disease or multiple myeloma but no new compression fracture. No change in the T11 compression fracture. Electronically Signed: Juan C Mckay MD at 12:31 EDT Tel , Service support , Active Medications Acetaminophen (Tylenol) 650 mg PO Q6H PRN PRN PRN Reason: Pain Score 1-10/Temp > 100.7 F Last Admin: 06/29/20 11:44 Dose: 650 mg Documented by: Acetaminophen (Tylenol) 1,000 mg PO TID [facility] Last Admin: 07/01/20 05:37 Dose: 1,000 mg Documented by: Bisacodyl (Dulcolax) 10 mg RECTAL .X1 PRN PRN PRN Reason: See label comments Bisacodyl (Dulcolax) 10 mg PO .X1 PRN PRN PRN Reason: See label comments Cyclobenzaprine HCl (Flexeril) 10 mg PO TID PRN PRN PRN Reason: muscle spasm Last Admin: 07/01/20 09:32 Dose: 10 mg Documented by: Dexamethasone (Decadron) 20 mg PO BIDCM [facility] Stop: 07/03/20 17:01 Last Admin: 07/01/20 09:13 Dose: 20 mg Documented by: Diphenhydramine HCl (Benadryl) 12.5 - 25 mg IV Q6H PRN PRN PRN Reason: ITCHING Diphenhydramine HCl (Benadryl) 12.5 - 25 mg PO Q6H PRN PRN PRN Reason: Pruritis Famotidine (Pepcid) 20 mg PO BID [facility] Last Admin: 07/01/20 09:14 Dose: 20 mg Documented by: Fentanyl (Duragesic Patch) 24 mcg TRANSDERM. Q72H [facility] Last Admin: 06/29/20 04:16 Dose: 24 mcg Documented by: Haloperidol (Haldol) 0.5 mg PO TID PRN PRN PRN Reason: NAUSEA Last Admin: 06/29/20 11:43 Dose: 0.5 mg Documented by: Hydrocortisone (Hytone) 1 applic TOPICAL Q6H PRN PRN PRN Reason: hemorrhoids Hydromorphone HCl (Dilaudid Inj) 0.5 mg IV Q3H PRN PRN PRN Reason: breakthrough pain Last Admin: 06/30/20 18:17 Dose: 0.5 mg Documented by: Sodium Chloride () 250 mls @ 15 mls/hr IV .[id number] PRN PRN Reason: Saline Flush Last Admin: 07/01/20 09:41 Dose: 15 mls/hr Documented by: Naloxone HCl 4 mg/ Dextrose 504 mls @ 0 mls/hr IV .Q0M PRN; Protocol PRN Reason: To maintain Resp. rate >10 Ceftriaxone Sodium (Rocephin) 1 gm in 50 mls @ 100 mls/hr IV Q24 [facility] Last Admin: 07/01/20 09:14 Dose: 100 mls/hr Documented by: Lidocaine (Lidoderm Patch) 1 patch TOPICAL DAILY [facility]; Protocol Last Admin: 07/01/20 09:13 Dose: 1 patch Documented by: Naloxone HCl (Narcan) 0.02 mg IV Q1M PRN PRN Reason: RR <10 and pt unresponsive Ondansetron HCl (Zofran) 4 mg IV Q8H PRN PRN PRN Reason: NAUSEA/VOMITING Last Admin: 06/30/20 20:04 Dose: 4 mg Documented by: Oxycodone HCl (Oxyir) 5 mg PO Q4H PRN PRN PRN Reason: Pain Score 4-5/10 Oxycodone HCl (Oxyir) 10 mg PO Q4H PRN PRN PRN Reason: Pain Score 6-10/10 Last Admin: 09/22/20 09:42 Dose: 10 mg Documented by: Polyethylene Glycol (Miralax) 17 gm PO DAILY [facility] Last Admin: 07/01/20 09:14 Dose: 17 gm Documented by: Pregabalin (Lyrica) 75 mg PO TID [facility] Last Admin: 07/01/20 05:38 Dose: 75 mg Documented by: Senna/Docusate Sodium (Senokot-S, Veronique-Colace) 2 tablet PO QHS [facility] Last Admin: 06/30/20 22:20 Dose: 2 tablet Documented by: Sodium Chloride () 10 - 40 ml IV UD PRN PRN Reason: SALINE FLUSH Last Admin: 07/01/20 09:42 Dose: 10 ml Documented by: Sodium Chloride () 10 - 40 ml IV UD PRN PRN Reason: SALINE FLUSH Inpatient E&M: 96665 Subs Hosp L2
[2020-07-01] MEDS: HYDROmorphone 0.5 MG/0.5 ML SYRINGE IV (11:58)
[2020-07-01] MEDS: Midazolam 2 MG/2 ML Syringe IV ×2 (13:12→13:19)
[2020-07-01] MEDS: fentaNYL 100 MCG/2 ML Ampul IV ×2 (13:14→13:20)
--- NOTE | 2020-07-01 15:00 | CASEMGMT ---
Addendum entered by Kerry Jason 07/01/20 15:13: [facility] received call from Britney in TCU stating TCU is able to accept pt, will submit for pre-cert. SW updated pt and Natalia. Plan: TCU pending pre-cert. Original Note: Social Work Note RN updated this worker that pt and pt's sister Natalia is requesting to speak to SW to discuss discharge plans. SW in to speak with pt and Natalia. Pt and Natalia state first choice for SNF is [facility] and second choice is [facility]. SW explained referral process and that pt will need pre-cert. Pt and Natalia state understanding. SW placed a call to Britney in TCU and left message regrading referral. Plan: SNF pending acceptance and pre-cert Kerry Jason PIE CUTTER, CERTIFIED TRAVEL COUNSELOR
[2020-07-01] MEDS: Senna/Docusate Sodium 1 Tablet 2 TABLET PO (17:10)
[2020-07-02 02:59] VITALS: BP 110/69; PULSE 68; RESP 16; TEMP 36.4; O2SAT 95
[2020-07-02] MEDS: Acetaminophen 500 MG Tablet 1000 MG PO ×3 (06:09→21:51)
[2020-07-02] MEDS: Pregabalin 75 MG Capsule PO ×3 (06:09→21:51)
[2020-07-02 06:17] LABS: Hematocrit 28.4 % (37-47); Hemoglobin 9.3 g/dL (12.0-15.0); Mean Corp Hgb Conc 32.7 g/dL (32-36); Mean Corpuscular Volume 91.6 fL (81-99); Platelet Count 224 K/mm3 (150-450); RBC Distribution Width SD 40.1 fl (35.1-43.9); White Blood Count 11.6 K/mm3 (4.4-11.0)
[2020-07-02 06:35] LABS: Anion Gap 5 (5-15); BUN 25 mg/dL (7-18); BUN/Creat Ratio 30.9 RATIO (10-20); Calcium,Total 9.5 mg/dL (8.5-10.1); Chloride 106 mmol/L (98-107); Creatinine, Serum 0.81 mg/dL (0.55-1.02); EST Glomerular Filtration Rate 78 mL/min (>60); Est Glom Filt Rate - Afr Amer 94 mL/min (>60); Estimated Creatinine Clearance 69.78 ml/min; Glucose 128 mg/dL (74-106); Magnesium 2.5 mg/dL (1.6-2.6); Potassium 4.2 mmol/L (3.5-5.1); Sodium Level 139 mmol/L (136-145)
--- NOTE | 2020-07-02 08:00 | PN_ITS ---
Progress Note Oncology progress note: Patient had a bone marrow biopsy yesterday. She still has significant pain despite increasing her Duragesic. She has no nausea or vomiting. She still has problem with constipation on stool softener and MiraLAX. Patient denies shortness of breath or increased lethargy. Vital Signs Temp 97.6 F L 07/02/20 02:59 Pulse 68 07/02/20 02:59 Resp 16 07/02/20 02:59 BP 110/69 07/02/20 02:59 Pulse Ox 95 07/02/20 02:59 Intake & Output 06/30/20 07/01/20 07/02/20 23:59 23:59 23:59 Intake Total 929.75 / 929.75 676.75 / 926.75 500 / 500 Output Total 2200 / 2200 600 / 600 Balance -1270.25 / -1270.25 76.75 / 326.75 500 / 500 Weight: 200 lb Intake: Oral 700 / 700 360 / 610 500 / 500 Intake, IV Amount 229.75 / 229.75 316.75 / 316.75 0.9% Normal Saline 250 ML @ 15 229.75 / 229.75 238.75 / 238.75 mls/hr IV .[id number] PRN Rx#: [id number] 0.9% Normal Saline 500 ML @ KVO 28 / 28 IV .Q0M DANELLE Rx#:[id number] Rocephin 1 gm In 50 ml @ 100 50 / 50 mls/hr IV Q24 DANELLE Rx#:[id number] Output: Urine 2200 / 2200 600 / 600 Other: Number of Voids 1 Laboratory Results 07/01/20 09:40: WBC 13.6 H, RBC 3.09 L, Hgb 9.5 L, Hct 28.8 L, MCV 93.2, MCH 30.7, MCHC 33.0, RDW Std Deviation 39.8, RDW Coeff of Marcia 11.8, Plt Count 242, MPV 10.0, Immature Gran % (Auto) 0.600, Neut % (Auto) 92.6 H, Lymph % (Auto) 3.2 L, [place] % (Auto) 3.5, Eos % (Auto) 0.0, Baso % (Auto) 0.1, Absolute Neuts (auto) 12.6 H, Absolute Lymphs (auto) 0.44 L, Nucleated RBC % 0, Differential Comment SCANNED 07/01/20 17:20: COVID-19 (FRANKIE) Not Detected 07/02/20 05:40: WBC 11.6 H, RBC 3.10 L, Hgb 9.3 L, Hct 28.4 L, MCV 91.6, MCH 30.0, MCHC 32.7, RDW Std Deviation 40.1, RDW Coeff of Marcia 12.0, Plt Count 224, MPV 10.0 07/02/20 05:40: Sodium 139, Potassium 4.2, Chloride 106, Carbon Dioxide 28.0, Anion Gap 5, BUN 25 H, Creatinine 0.81, Estim Creat Clear Calc 69.78, Est GFR (MDRD) Af Amer 94, Est GFR (MDRD) Non-Af 78, BUN/Creatinine Ratio 30.9 H, Glucose 128 H, Calcium 9.5, Magnesium 2.5 Assessment/Plan: 1)Intractable pain (lower lumbar spine with radiculopathy) secondary to multiple myeloma & compression fracture at T11 2)Acute renal injury-resolved 3)Anemia 4)Hypercalcemia -resolved 5)possible UTI Recommendations: -Continue with pain management and physical therapy evaluation; she is moving TCU today. -Regimen: Tylenol 3 times daily, fentanyl patch, Dilaudid as needed, Lyrica, stool softener and laxative for constipation. (Titration discussed with Dr. Bocanegra) -Bone marrow biopsy result pending -Continue Decadron 40mg/day, finished after today -Lovenox for DVT prophylaxis -She will need radiation therapy to the lower lumbar spine as an outpatient -She will follow with Dr. Quinones for possible kyphoplasty of T11 next week. -Follow-up with me on Tuesday to discuss treatment options for multiple myeloma. -Continue Rocephin pending urine culture. cc: Dr. Nate Bocanegra, Dr. Antoine Nichols, Dr. Duyen Miles
[2020-07-02 08:20] VITALS: BP 124/83; PULSE 80; RESP 16; TEMP 36.8; O2SAT 93
[2020-07-02 08:24] VITALS: O2SAT 93
[2020-07-02] MEDS: dexAMETHasone 4 MG Tablet 20 MG PO ×2 (08:25→17:33)
[2020-07-02] MEDS: Lidocaine 5% Patch 1 PATCH TOPICAL (10:17)
[2020-07-02] MEDS: Polyethylene Glycol 3350 17 GM PACKET PO (10:18)
[2020-07-02] MEDS: Famotidine 20 MG Tablet PO ×2 (10:18→21:52)
[2020-07-02] MEDS: Enoxaparin 40 MG/0.4 ML Syringe SC (10:18)
[2020-07-02] MEDS: Ceftriaxone 1 GM/50 ML BAG IV (10:27)
[2020-07-02] MEDS: 0.9% Saline Lock 10 ML Syringe IV ×3 (12:10→22:14)
[2020-07-02] MEDS: HYDROmorphone 0.5 MG/0.5 ML SYRINGE IV ×3 (12:12→22:13)
[2020-07-02 13:18] VITALS: BP 119/78; PULSE 97; RESP 16; TEMP 36.7; O2SAT 96
[2020-07-02] MEDS: cycloBENZAPRine HCl 10 MG Tablet PO ×2 (13:28→19:49)
[2020-07-02] MEDS: oxyCODONE 5 MG Tablet 10 MG PO ×2 (14:54→19:50)
--- NOTE | 2020-07-02 14:56 | CASEMGMT ---
Social Work Note [facility] received call from Britney in TCU stating pre-cert has been obtained and pt can discharge today. Physician updated. SW in to speak with pt. [facility] updated pt that pre-cert has been obtained and pt can discharge to TCU today. Pt states understanding. [facility] placed a call to [facility] and left message that pt will be discharged to TCU today. Plan: TCU today Kerry Jason SOW FARM BARN TECHNICIAN, PRIMARY SPECIAL EDUCATOR
--- NOTE | 2020-07-02 16:14 | PCM.TXEXTCAR ---
- Diet 07/01/20 14:55 Diet: Regular - General Is pt able to select menu?: Yes Diet Comments: Advance as tolerated - Wound(s) right iliac crest Wound Type: Puncture - Therapies Weight Bearing: Weight bearing as tolerated Physical Therapy: Eval and Treat Occupational Therapy: Eval and Treat - Problem/Diagnosis (1) Lumbar compression fracture Status: Chronic Comment: recent history of kyphoplasty, due to multiple myeloma Current Visit: Yes (2) Thoracic vertebral fracture Status: Acute Comment: secondary to multiple myeloma Current Visit: Yes (3) Multiple myeloma without remission Status: Suspected Current Visit: Yes (4) Uncontrolled pain Status: Acute Comment: seconday to thoracic compression fracture Current Visit: Yes - Allergies/Procedures Done in Hospital Allergies/Adverse Reactions: Allergies latex Allergy (Mild, Verified 06/28/20 21:50) rash Penicillins Allergy (Verified 06/28/20 21:50) Unknown adhesive tape Adverse Reaction (Verified 06/28/20 21:50) Rash Procedures: - - CT guided bone biopsy - Type of Care/Length of Stay Estimated LOS: Convalescent Care Less Than 30 days Type of Care Needed: Skilled Rehab Potential: Good Prognosis: Good - Additional Orders/Day of Discharge Additional Orders: Obtain pallative care consult re uncontrolled pain from multiple myeloma H&P will serve as current which was dated: 06/28/20 Day of Discharge: 07/03/20 - Follow Up Care Primary Care Physician: Pia Gambino MD [Primary Care Provider] - Please Follow Up With: Antoine Nichols MD When: as directed Please Follow Up With: Rolando Larson DO When: as directed Please Follow Up With: Pallative care
[2020-07-02] MEDS: fentaNYL 25 MCG Patch TRANSDERM. (17:30)
[2020-07-02 17:42] VITALS: BP 133/76; PULSE 87; RESP 18; TEMP 36.6; O2SAT 95
--- NOTE | 2020-07-02 17:57 | PCM.PROGNOTE ---
Patient Problems: Active and Suspected Problems (Last Reviewed 06/29/20 @ 03:[address] Allan Yost MD) Acute back pain (Acute) Thoracic vertebral fracture (Acute) secondary to multiple myeloma Acute renal injury (Acute) Multiple myeloma without remission (Suspected) Uncontrolled pain (Acute) seconday to thoracic compression fracture Subjective: Patient was seen and examined today, she continues to have lower back pain radiating into her hip areas. Patient states she also has pain in her mid back area but it is not as severe as her lower back. I talked extensively with oncology today and radiation oncology concerning the patient's care, radiation oncology would like additional MRI performed of her sacrum, I feel that it is best to do it before she is transferred to TCU for rehab services. The plan is to get the patient into radiation therapy for her multiple myeloma lesions. I have increased the patient's Duragesic patch today, she states she feels that the Flexeril is helping her back and I have left this on her regimen. I do not believe the lidocaine patch is benefiting the patient I have stopped this. - Physical Exam Vitals/I&O's: Vital Signs Temp Pulse Resp BP Pulse Ox 97.9 F 87 18 133/76 H 95 07/02/20 17:42 07/02/20 17:42 07/02/20 17:42 07/02/20 17:42 07/02/20 17:42 Oxygen Flow Rate (L/min) [4] 2 Oxygen Flow Rate (L/min) [2] 2 Oxygen Flow Rate (L/min) 2 Oxygen Delivery Method [4] Nasal Cannula Oxygen Delivery Method [3] Room Air Oxygen Delivery Method [2] Nasal Cannula Oxygen Delivery Method [1 ( Room Air Initial Baseline)] Oxygen Delivery Method Room Air Weight: 90.718 kg Body Mass Index (BMI) 33.3 Intake and Output for Last 24 Hours 06/30/20 07/01/20 07/02/20 23:59 23:59 23:59 Intake Total 929.75 / 929.75 676.75 / 926.75 900 / 900 Output Total 2200 / 2200 600 / 600 200 / 200 Balance -1270.25 / -1270.25 76.75 / 326.75 700 / 700 General: Alert, Oriented x3, Cooperative, Well developed, - - Tearful at times HEENT: Atraumatic, PERRLA, EOMI, Normocephalic Oral: Moist Mucosa Neck: Supple, No JVD, Trachea Midline, Thyroid Normal Size and Texture Lungs: Clear to auscultation, Normal air movement, No rhonchi, No wheeze, No rales Cardiovascular: Regular rate, Regular Rhythm, Normal S1, Normal S2, No murmurs, PMI Normal, No rub noted, No Gallop Abdomen: Bowel Sounds Present, Soft, Non Tender, Non-Distended Extremities: No clubbing, No cyanosis, No edema, Capillary Refill Less than 3 Seconds Skin: No rashes, No breakdown Neurological: Cranial nerves II-XII grossly intact, Neuro grossly intact, Sensory exam intact to light touch and pain, Coordination normal Psych/Mental Status: Normal Affect, Appropriate, Alert and oriented to time, place, person, mood and affect Microbiology Past 72 Hours 06/30/20 14:00 Urine, Clean Catch Urine Culture - Preliminary Gram negative ezra Laboratory Results 07/01/20 17:20: COVID-19 ([facility]) Not Detected 07/02/20 05:40: WBC 11.6 H, RBC 3.10 L, Hgb 9.3 L, Hct 28.4 L, MCV 91.6, MCH 30.0, MCHC 32.7, RDW Std Deviation 40.1, RDW Coeff of Marcia 12.0, Plt Count 224, MPV 10.0 07/02/20 05:40: Sodium 139, Potassium 4.2, Chloride 106, Carbon Dioxide 28.0, Anion Gap 5, BUN 25 H, Creatinine 0.81, Estim Creat Clear Calc 69.78, Est GFR (MDRD) Af Amer 94, Est GFR (MDRD) Non-Af 78, BUN/Creatinine Ratio 30.9 H, Glucose 128 H, Calcium 9.5, Magnesium 2.5 07/02/20 11:47: Miscellaneous Test Pending Current Medications Acetaminophen (Tylenol) 650 mg PO Q6H PRN PRN PRN Reason: Pain Score 1-10/Temp > 100.7 F Last Admin: 06/29/20 11:44 Dose: 650 mg Documented by: Acetaminophen (Tylenol) 1,000 mg PO TID [facility] Last Admin: 07/02/20 13:28 Dose: 1,000 mg Documented by: Bisacodyl (Dulcolax) 10 mg RECTAL .X1 PRN PRN PRN Reason: See label comments Bisacodyl (Dulcolax) 10 mg PO .X1 PRN PRN PRN Reason: See label comments Cyclobenzaprine HCl (Flexeril) 10 mg PO TID PRN PRN PRN Reason: muscle spasm Last Admin: 07/02/20 13:28 Dose: 10 mg Documented by: Diphenhydramine HCl (Benadryl) 12.5 - 25 mg IV Q6H PRN PRN PRN Reason: ITCHING Diphenhydramine HCl (Benadryl) 12.5 - 25 mg PO Q6H PRN PRN PRN Reason: Pruritis Enoxaparin Sodium (Lovenox) 40 mg SC DAILY [facility] Last Admin: 07/02/20 10:18 Dose: 40 mg Documented by: Famotidine (Pepcid) 20 mg PO BID [facility] Last Admin: 07/02/20 10:18 Dose: 20 mg Documented by: Fentanyl (Duragesic Patch) 24 mcg TRANSDERM. Q72H [facility] Last Admin: 07/02/20 11:10 Dose: 12 mcg Documented by: Fentanyl (Duragesic Patch) 25 mcg TRANSDERM. Q3D [facility] Last Admin: 07/02/20 17:30 Dose: 25 mcg Documented by: Hydrocortisone (Hytone) 1 applic TOPICAL Q6H PRN PRN PRN Reason: hemorrhoids Hydromorphone HCl (Dilaudid Inj) 0.5 mg IV Q3H PRN PRN PRN Reason: breakthrough pain Last Admin: 07/02/20 12:12 Dose: 0.5 mg Documented by: Sodium Chloride () 250 mls @ 15 mls/hr IV .[id number] PRN PRN Reason: Saline Flush Last Infusion: 07/01/20 13:58 Dose: 0 mls/hr Documented by: Naloxone HCl 4 mg/ Dextrose 504 mls @ 0 mls/hr IV .Q0M PRN; Protocol PRN Reason: To maintain Resp. rate >10 Lidocaine (Lidoderm Patch) 1 patch TOPICAL DAILY [facility]; Protocol Last Admin: 07/02/20 10:17 Dose: 1 patch Documented by: Naloxone HCl (Narcan) 0.02 mg IV Q1M PRN PRN Reason: RR <10 and pt unresponsive Ondansetron HCl (Zofran) 4 mg IV Q8H PRN PRN PRN Reason: NAUSEA/VOMITING Last Admin: 06/30/20 20:04 Dose: 4 mg Documented by: Oxycodone HCl (Oxyir) 5 mg PO Q4H PRN PRN PRN Reason: Pain Score 4-5/10 Oxycodone HCl (Oxyir) 10 mg PO Q4H PRN PRN PRN Reason: Pain Score 6-10/10 Last Admin: 07/02/20 14:54 Dose: 10 mg Documented by: Polyethylene Glycol (Miralax) 17 gm PO DAILY [facility] Last Admin: 07/02/20 10:18 Dose: 17 gm Documented by: Pregabalin (Lyrica) 75 mg PO TID [facility] Last Admin: 07/02/20 13:32 Dose: 75 mg Documented by: Senna/Docusate Sodium (Senokot-S, Veronique-Colace) 2 tablet PO QHS [facility] Last Admin: 07/01/20 21:19 Dose: Not Given Documented by: Sodium Chloride () 10 - 40 ml IV UD PRN PRN Reason: SALINE FLUSH Last Admin: 07/02/20 12:10 Dose: 10 ml Documented by: Sodium Chloride () 10 - 40 ml IV UD PRN PRN Reason: SALINE FLUSH Medical Necessity - Tobacco Use Smoking Status: Former smoker Tobacco Use: Cigarettes Assessment/Plan All Active Problems (Last Reviewed 06/29/20 @ 03:[address] Allan Yost MD) Acute back pain (Acute) Thoracic vertebral fracture (Acute) Acute renal injury (Acute) Uncontrolled pain (Acute) #1 acute compression fracture of T11 secondary to multiple myeloma-again oncology is following her care, she will need to be set up for radiation treatment for these vertebral lesions. #2 L5 compression fracture secondary to multiple myeloma-treated with kyphoplasty recently, pain meds will continue to be adjusted, patient is on Lyrica for any radicular pain. #3 multiple myeloma-patient will have an MRI of the sacrum with and without contrast to further delineate her disease spread, radiation oncology requested this test, I explained this to the patient. Patient will see radiation oncology tomorrow morning #4 generalized debility secondary to multiple myeloma and compression fractures of the back #5 uncontrolled pain secondary to compression fractures and multiple myeloma Inpatient E&M: 80295 Subs Hosp L2
[2020-07-02 21:38] VITALS: BP 147/78; PULSE 77; RESP 18; TEMP 36.7; O2SAT 96
[2020-07-02] MEDS: Senna/Docusate Sodium 1 Tablet 2 TABLET PO (21:52)
[2020-07-03] VITALS (7 sets, daily range): BP systolic 110–134; BP diastolic 66–87; PULSE 59–97; RESP 12–18; TEMP 36.4–36.8; O2SAT 94–98
[2020-07-03] MEDS: oxyCODONE 5 MG Tablet 10 MG PO ×3 (00:17→09:01)
[2020-07-03] MEDS: HYDROmorphone 0.5 MG/0.5 ML SYRINGE IV ×2 (01:44→07:29)
[2020-07-03] MEDS: 0.9% Saline Lock 10 ML Syringe IV ×3 (01:45→11:45)
[2020-07-03] MEDS: Pregabalin 75 MG Capsule PO (05:08)
[2020-07-03] MEDS: Acetaminophen 500 MG Tablet 1000 MG PO (05:10)
--- NOTE | 2020-07-03 05:33 | NURSING ---
Tried to get pt to the bathroom to urinate because she has not urinated after midnight and pt stated she did not have to go yet.
[2020-07-03 05:50] LABS: Hematocrit 30.9 % (37-47); Hemoglobin 10.1 g/dL (12.0-15.0); Mean Corp Hgb Conc 32.7 g/dL (32-36); Mean Corpuscular Hgb 30.5 pg (27.0-32.0); Mean Corpuscular Volume 93.4 fL (81-99); Mean Platelet Vol. 9.3 fl (6.2-12.0); Platelet Count 232 K/mm3 (150-450); RBC Distribution Width SD 40.6 fl (35.1-43.9); Red Blood Count 3.31 M/mm3 (4.2-5.4); White Blood Count 13.1 K/mm3 (4.4-11.0)
[2020-07-03 06:33] LABS: Anion Gap 4 (5-15); BUN 25 mg/dL (7-18); BUN/Creat Ratio 27.7 RATIO (10-20); Calcium,Total 9.6 mg/dL (8.5-10.1); Chloride 103 mmol/L (98-107); EST Glomerular Filtration Rate 69 mL/min (>60); Est Glom Filt Rate - Afr Amer 83 mL/min (>60); Estimated Creatinine Clearance 62.81 ml/min; Glucose 141 mg/dL (74-106); Potassium 4.4 mmol/L (3.5-5.1); Sodium Level 138 mmol/L (136-145)
--- NOTE | 2020-07-03 08:27 | CON.PCM_ITS ---
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 History of Present Illness: 06/03/2020: MRI of the lumbar spine was completed this demonstrated an acute mild compression fracture of the superior endplate of L5 with spinal stenosis at L4/5 secondary to bulging annulus and facet arthropathy. There is mild wedging of the superior endplate of L5 with approximately 10% loss of vertebral body height associated with abnormal signal intensity with linear low signal consistent with acute compression fracture. There is bilateral moderate neuroforaminal stenosis but central canal is unremarkable there is abnormal signal intensity within the sacral wings bilaterally greater on the left of in determinate etiology which could include neoplastic changes. 06/09/2020: Patient completed kyphoplasty to L5. On pathology a piece of bone and blood clots with increased number of plasma cells with kappa monoclonality is suspicious for plasma cell dyscrasia, negative for carcinoma. 06/09/2020: MRI of the lumbar spine was completed demonstrating interval vertebroplasty of the mild compression fracture of L5 and no retropulsion into the spinal canal. There is noted to be an acute moderate wedge compression fracture of T11 without obvious retropulsion into the spinal canal. 06/13/2020: Patient was evaluated by orthopedic/spine surgery 06/23/2020: Patient was evaluated by [facility] medical oncology (Dr. Nichols) and plan for labs and skeletal survey work-up for multiple myeloma. 06/23/2020: Serum kappa 1190.7, serum IgG 521 (L), serum IgA 147 (N), serum IgM 13 (L), serum lambda low at 3.7, UPEP demonstrated M protein with increased protein concentration in the urine. CBC and CMP unremarkable 06/25/2020: Skeletal survey was performed. Lytic bony lesion versus arachnoid regulation in the frontal calvarium is identified. No lytic bony lesion seen in the cervical spine. T11 and L1 vertebral body compression deformities as well as L5 vertebral body vertebroplasty. No clear lytic lesions are noted in the lumbar or thoracic spine. Lytic bony lesions are visualized in the bilateral humeri. No definite lytic bony lesions are seen in the ribs. Lytic bony lesions are seen in the bilateral femurs and possibly left tibial plateau. 06/28/2020 patient was seen in the emergency room for increasing uncontrollable back pain. She had been trying oxycodone, fentanyl, morphine at home without relief and was unable to lie down due to the pain. She had no neurologic complaints at this time. 06/29/2020: MRI thoracic spine was completed due to having severe back pain. This demonstrated no change in the moderate loss of height at T11 vertebral body with decrease in marrow signal consistent with resolving subacute compression fracture. There is no retropulsion into the spinal canal. There is bilobed disc protrusion at the T10/T11 which is unchanged. No evidence of cord compression. There are multiple small marrow replacing lesions throughout the thoracic spine particularly at T5 which is worrisome for metastatic disease or multiple myeloma. 07/01/2020: Bone marrow biopsy was completed. Pathology is pending Radiation Treatment History: No history of radiation therapy. No pacemaker. No diagnosis of collagen vascular disease. Interval History: Patient was seen in the hospital for inpatient consult. She notes having pain initially noted in the mid/low back dating back to just after 2018. At this time pain was relatively mild but progressed over many months to be much more severe. She notes in the spring 2019 that she had increasing right hip pain with some radiculopathy down her right leg and that this pain was roughly 10 out of 10 at times and she had some difficulty with lifting or bending. This then progressed to involve the left hip making it more difficult for her to walk. She notes the pain in the left hip also being roughly 10/10. She also notes during the summer that this pain existed in her low back and was also very severe. Just in the last few days she noted some tingling/numbness in the bilateral toes but otherwise denies ever having tingling/numbness. She has not had any focal weakness or incontinence of bowel/bladder. Of note she does have tingling and numbness from carpal tunnel in the bilateral hands. She reports that her current pain level is at times 10/10 and primarily involves the very low back and includes the right greater than left hip/pelvic area. Denies having groin radiculopathy. She presented to the emergency room about 5 days ag o due to having uncontrolled pain at home with outpatient pain medications. While in the hospital her pain has fluctuated and yesterday was a very bad day but this morning she feels like her pain control is much better. For approximately the last month she has had difficulty walking due to pain and has used a cane or a times a wheelchair. She had kyphoplasty of L5 completed 3-4 weeks ago and reports actual pain increase since then rather than improvement. She does note more mild to moderate discomfort involving the mid back which is currently 5/10 and has not been nearly as severe as her very low back/pelvic pain. She denies having headache, vision changes, other sites of bone pain, cough, shortness of breath, hemoptysis, nausea/vomiting. She is now taking high-dose Decadron per medical oncology and they are waiting official diagnosis of multiple myeloma after having bone marrow biopsy 2 days ago, all imaging studies and laboratory studies are very suggestive of multiple myeloma. She denies having other problems or concerns at this time. Family History (Last Reviewed 06/29/20 @ 03:[address] Allan Yost MD) Brother Asthma Malignant hyperthermia due to anesthesia Hypertension Grandfather Colon cancer Mother Heart disease Thyroid disorder COPD (chronic obstructive pulmonary disease) Arthritis Anemia Sister Breast cancer Hypertension Thyroid disorder Hypothyroid Arthritis Father Bleeding disorder Cancer Lung Myelodysplastic syndrome Chronic lymphocytic leukemia Alcohol abuse Aunt Myocardial infarction Medical History (Last Reviewed 06/29/20 @ 03:[address] Allan Yost MD) Screening for intestinal cancer (Inactive) Pancreatitis (Chronic) Obesity (Chronic) Former tobacco use (Chronic) Renal cell cancer (Inactive) Iron deficiency anemia (Chronic) URI, acute (Inactive) History of nausea and vomiting (Chronic) History of abdominal pain (Chronic) Arthritis (Acute) Back problem (Acute) Carpal tunnel syndrome (Acute) Endometriosis (Acute) Headache, migraine (Acute) History of pneumococcal infection (Acute) Seasonal allergies (Acute) history of bone fracture (Acute) Surgical History (Last Reviewed 06/29/20 @ 01:[address] Allan Yost MD) History of back surgery (Acute) cement a vertabrae L4 Status post endometrial ablation (Acute) 2011 s/p kidney cancer (Acute) mass removed from kidney 2012 Social History - Tobacco Smoking Status Former smoker Social History - Living Arrangements Patients Living Arrangements 9 year old son Home Medications Medication Instructions Recorded cycloBENZAPRine HCl [Flexeril] 10 mg PO TID PRN PRN 06/09/20 hydrocortisone 2.5 % topical cream 1 applic RC BID-QID PRN #28.35 g 06/18/20 with perineal applicator [Hydrocortisone 2.5%/lidocaine 5% See Rx Instructions .ROUTE 06/28/20 ointment (compound)] .MEDSUPPLY Acetaminophen [Tylenol] 500 mg PO TID 06/28/20 Enoxaparin [Lovenox] 40 mg SUBCUT DAILY #14 syringe 07/02/20 Ondansetron [Zofran] 8 mg PO Q6H PRN PRN #1 tab 07/02/20 Oxycodone [Oxyir] 10 - 15 mg PO Q4H PRN PRN 7 Days 07/02/20 #36 tab Polyethylene Glycol 3350 [Miralax] 17 gm PO BID #1 packet 07/02/20 Pregabalin 75 mg PO TID #20 cap 07/02/20 Senna/Docusate Sodium [Senokot-S] 2 tab PO QHS tab 07/02/20 fentaNYL patch [Duragesic patch] 50 mcg TRANSDERM. Q72H 7 Days #1 07/02/20 patch Allergy/AdvReac Type Severity Reaction Status Date / Time latex Allergy Mild rash Verified 06/28/20 21:50 Penicillins Allergy Unknown Verified 06/28/20 21:50 adhesive tape AdvReac Rash Verified 06/28/20 21:50 Review of Systems: A 12-point review of systems was completed and was negative except for what is noted in the HPI/Interval History and by the nurse. Height/Weight/BMI: Height: 5 ft 5 in Weight: 200 lbs Vital Signs Temperature 97.5 F L 07/03/20 03:34 Temperature Source Oral 07/03/20 03:34 Pulse Rate 59 L 07/03/20 03:34 Pulse Strength Normal (2+) 07/02/20 22:00 Respiratory Rate 18 07/03/20 03:34 Respiratory Effort Non-Labored 07/03/20 03:39 Respiratory Depth Normal 07/03/20 03:39 Respiratory Pattern Normal 07/03/20 03:39 Blood Pressure 125/73 H 07/03/20 03:34 Blood Pressure Mean 90 07/03/20 03:34 Blood Pressure Source Monitor 07/03/20 03:34 Blood Pressure Position Semi-Fowlers 07/03/20 03:34 Blood Pressure Location Right Arm 07/03/20 03:34 Baseline BP 127/65 07/01/20 13:58 Pulse Ox 98 07/03/20 07:14 Oxygen Delivery Method Room Air 07/03/20 07:14 Oxygen Flow Rate (L/min) 2 07/01/20 13:28 Physical Exam: ECO-2 KARNOFSKY SCORE: 60-70% CONSTITUTIONAL: Well-developed, well-nourished, and in no apparent distress. Examined in the hospital bed. NECK: Supple,with no thyromegaly, and non-tender. Trachea midline. No cervical or supraclavicular adenopathy noted. CARDIAC: Regular rate and rhythm. Normal S1, S2. No murmurs, rubs, or gallops. PULMONARY/CHEST: Lungs are clear to auscultation and percussion bilaterally. No wheezes, rhonchi, or crackles noted. No increased work of breathing. ABDOMINAL: Abdomen soft, non-tender, non-distended. No hepatomegaly. Normoactive bowel sounds in all four quadrants. No guarding, rebound. BACK: Straight and aligned. No CVA tenderness. There is very mild tenderness to palpitation involving the mid back and more severe discomfort noted with palpation of the very low lumbar spine/sacrum, no apparent discomfort with palpation noted in the groin or hip. The remaining axial skeleton was non- tender to percussion. EXTREMITIES: Full range of motion in all four extremities, with normal strength equally and symmetrically. No evidence of edema. Some increased discomfort in the back was noted with leg raising but no weakness SKIN: Skin is warm and dry. No rashes or lesions evident. NEUROLOGICAL EXAM: Alert and oriented x 3. Cranial nerves II through XII are grossly intact. No focal neurological deficit. Speech is fluent. There is no upper or lower extremity sensory deficit or motor deficit. Muscle strength is 5/5 in all muscle groups. PSYCHIATRIC: Appropriate mood and affect for the clinical situation. Imaging: As per HPI Laboratory Data: 06/23/2020: Serum kappa 1190.7, serum IgG 521 (L), serum IgA 147 (N), serum IgM 13 (L), serum lambda low at 3.7, UPEP demonstrated M protein with increased protein concentration in the urine. 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 Patient was seen for inpatient consultation. Her performance status is reduced but this is related specifically to disease and pain as her pre-disease KPS was very high. She has very few comorbidities. Clinically she has severe pain and the only neurologic complaint is occasional numbness/tingling in her bilateral toes. I reviewed the MRI thoracic spine completed 06/29/2020 and the MRI lumbar spine completed 06/03/2020 and reviewed these results with the patient. This demonstrated compression fracture at T11 as well as L5 (which has subsequently been repaired via kyphoplasty), probable disease involvement involving the sacral wings, and multifocal disease involvement throughout the thoracic spine. She is also had a skeletal survey demonstrating multiple diffuse lytic abnormalities. Upon my review of the imaging at T11 it appears that the compression fracture is mostly anteriorly and approximately 20% height loss, she has a kyphoplasty tentatively planned for this vertebral level next week. Given the imaging findings as well as the biopsy it is very likely she has a diagnosis of multiple myeloma in the bone marrow biopsy results should be back within a few days to confirm this. I reviewed this with the patient and also reviewed that systemic therapy is generally the mainstay for treatment for multiple myeloma. I did review reasons to consider use of focal radiation for multiple myeloma. I explained that typically radiation therapy is employed for palliative measures generally for improvement of bone pain but also could be used for prevention of fracture or neurologic compromise. After thorough review of the imaging and discussion with the patient I believe it is very likely the bulk of her current severe discomfort is emanating from the L5 location as well as potential disease within the sacrum and pelvis. MRI of the pelvis is going to be completed this morning to further evaluate this. I reviewed my recommendation to pursue palliative radiation therapy to these areas as the most expedient way to provide pain control. I explained that with the current fracture of T11 and upcoming kyphoplasty I would avoid radiation to this area given the pain level is moderate and that radiation likely would not relieve her pain given the presence of a mechanical fracture. I reviewed the logistics of radiation therapy including CT simulation, treatment planning, and daily fractionated treatment delivery likely for 5 fractions. The goals of therapy were reviewed in detail and include palliation of pain and prevention of worsening pain/fracture or neurologic compromise. The risks, benefits, and alternatives to palliative radiation therapy were reviewed in detail and all questions were addressed. I reviewed the potential acute and chronic toxicities from radiation therapy to the lumbar spine and pelvis and this would include but is not limited to fatigue, pain flare, skin erythema, reduced blood count, diarrhea/loose stool, bladder irritation, rectal irritation, chronic bone weakening and fracture risk, and secondary carcinoma. The relative likelihood of the side effects as well as management was reviewed. Following our discussion the patient desired to pursue palliative radiation therapy and we will plan to have CT simulation completed either later today or tomorrow morning to expedite treatment planning and to start treatment by early next week. Informed consent will be completed prior to CT simulation. Thank you for allowing me to participate in the management and care of your patient. If I may answer any questions in the interim, please do not hesitate to contact me at any time. Rolando Larson DO, MS Skin Therapist, Department of Radiation Oncology [facility] Inpatient E&M: [id number] Init Hosp L3
[2020-07-03] MEDS: Acetaminophen 325 MG Tablet 650 MG PO (09:01)
[2020-07-03] MEDS: cycloBENZAPRine HCl 10 MG Tablet PO (09:01)
[2020-07-03] MEDS: Enoxaparin 40 MG/0.4 ML Syringe SC (09:38)
[2020-07-03] MEDS: Famotidine 20 MG Tablet PO (09:38)
[2020-07-03] MEDS: Polyethylene Glycol 3350 17 GM PACKET PO (09:38)
--- NOTE | 2020-07-03 09:53 | NURSING ---
3 total duragesic patches removed (09/20/25mcg removed) and witnessed waste by Kathy SMALLextension service specialist in charge nurse.
[2020-07-03] MEDS: HYDROmorphone 1 MG/ML Syringe IV ×3 (09:56→14:11)
--- NOTE | 2020-07-03 12:00 | MRI_ITS ---
STUDY: MRI SACRUM / COCCYX WITH AND WITHOUT CONTRAST REASON FOR EXAM: Renal cell carcinoma, new diagnosis of multiple myeloma, severe back pain. TECHNIQUE: Standardized fat and water weighted pulse sequences were obtained in all 3 orthogonal planes before and after intravenous administration of 18 mL of Dotarem. COMPARISON: None. FINDINGS: There are multiple foci of increased signal in the sacral ala bilaterally and bilateral iliac wings (inversion recovery coronal series 3 images 9-22) with contrast enhancement (postcontrast T1 coronal series 13 images 10-21) consistent with foci multiple myeloma or metastatic disease. There is an insufficiency fracture of the left sacral ala (inversion recovery coronal series 3 images 7-10; T1 coronal series 10 images 7-10). Normal bilateral sacroiliac joints. There is no demonstrated fracture of the S1, S2, S3, S4, and S5 vertebra. Normal sacrococcygeal junction and sacrococcygeal angulation. Normal coccygeal segments, without a fracture, cancellous marrow edema, osseous destructive process, or anterior angulation. Normal presacral space. Normal visualized bilateral greater sciatic notches and bilateral sciatic nerves. There is a lesion in the right parasymphyseal bone (T1 coronal series 9 image 23) with contrast enhancement (postcontrast T1 axial series 14 images 28, 29) measuring 1.7 cm in transverse dimension. There are small lesions in the left femoral head, neck and subtrochanteric femur (T1 coronal series 18 image 18) and right subtrochanteric femur (T1 coronal series 9 images 18, 19). MRI/Pelvis W/WO Contrast IMPRESSION: Left sacral ala insufficiency fracture. Multiple foci of abnormal bone marrow signal of the sacrum, bilateral iliac wings, right parasymphyseal bone and proximal femurs, either secondary to multiple myeloma or metastatic disease. Electronically Signed: Babak Salcedo MD at 14:40 EDT Tel , Service support ,
--- NOTE | 2020-07-03 12:18 | NURSING ---
while at bedside, pt states that when she closes her eyes, she sees colored carpet, that has cob webbs on on it. pt states she aware it is not real and it doesn't scare her or make her afraid. States she will inform nursing if this becomes difficult to destinguish from reality and /or if it becomes scary or she feels afraid. pt states i halluciated with vicodin, i saw a man standing at the foot of my bed at home, holding my favorite blanket and it terrified me, so i will let you know if it changes. i am okay right now. Dr. Lynn aware. Nurse to nurse report called to Shyla SMALL in TCU.
--- NOTE | 2020-07-03 12:44 | PHA.DC.MR ---
Pharmacy Service has performed discharge medication reconciliation for this patient. The patient's discharge medication list was reviewed for discrepancies and discrepancies were resolved. Home Medications cycloBENZAPRine HCl [Flexeril] 10 mg PO TID PRN PRN 06/09/20 hydrocortisone 2.5 % topical cream with perineal applicator 1 applic RC BID-QID PRN #28.35 g 06/18/20 [Hydrocortisone 2.5%/lidocaine 5% ointment (compound)] See Rx Instructions .ROUTE .MEDSUPPLY 06/28/20 Acetaminophen [Tylenol] 500 mg PO TID 06/28/20 Enoxaparin [Lovenox] 40 mg SUBCUT DAILY #14 syringe 07/02/20 Ondansetron [Zofran] 8 mg PO Q6H PRN PRN #1 tab 07/02/20 Polyethylene Glycol 3350 [Miralax] 17 gm PO BID #1 packet 07/02/20 Pregabalin 75 mg PO TID #20 cap 07/02/20 Senna/Docusate Sodium [Senokot-S] 2 tab PO QHS tab 07/02/20 Oxycodone [Oxyir] 15 - 20 mg PO Q4H PRN PRN 7 Days #30 tab 07/03/20 fentaNYL patch [Duragesic patch] 75 mcg TRANSDERM. Q3D #1 patch 07/03/20
--- NOTE | 2020-07-03 13:33 | CASEMGMT ---
Social Work Note Pt is discharging to TCU today. SW placed a call to Britney in TCU and updated her. Plan: TCU today Kerry Jason DATA INTEGRITY ANALYST, REO ASSET MANAGER
[2020-07-03] MEDS: HYDROmorphone 1 MG/ML Syringe 1.5 MG IV (14:53)
[2020-07-04 07:00] LABS: Bone Marrow Aspiraton SEE PATHOLOGY REPORT
--- NOTE | 2020-07-05 08:16 | PCM.DC.SUM ---
Discharge Date and Diagnosis - Problem List Patient Problems: Active and Suspected Problems (Last Reviewed 06/29/20 @ 03:[address] Allan Yost MD) Debility (Acute) Intractable back pain (Acute) Date of Admission: 06/28/20 Date of Discharge: 07/03/20 - Primary Discharge Diagnosis Acute Problems: Active Problems (Last Reviewed 06/29/20 @ 03:[address] Allan Yost MD) #1 Sub-acute compression fracture of T11 secondary to multiple myeloma #2 L5 compression [id number] to multiple myeloma-treated with kyphoplasty recently #3 multiple myeloma #4 generalized debility secondary to multiple myeloma and compression fractures of the back #5 uncontrolled pain secondary to compression fractures and multiple myeloma #6 iron deficiency anemia #7 sacral insufficiency fracture secondary to multiple myeloma - Secondary Discharge Diagnosis Chronic Problems: Chronic Problems (Last Reviewed 06/29/20 @ 03:[address] Allan Yost MD) Lumbar compression fracture (Chronic) recent history of kyphoplasty, due to multiple myeloma Compression fracture of T11 vertebra (Chronic) Multiple myeloma (Chronic) Muscle spasm (Chronic) Hemorrhoids (Chronic) Pain of sternum (Chronic) Pancreatitis (Chronic) Obesity (Chronic) Former tobacco use (Chronic) Renal cell cancer (Chronic) Iron deficiency anemia (Chronic) History of nausea and vomiting (Chronic) History of abdominal pain (Chronic) Hospital Course and Treatment Operations: None Procedures: - - Bone marrow biopsy Summary of Care Provided: The patient is a 55 year old F was seen in the emergency room at [facility] with chief complaint of severe back pain, she had been undergoing evaluation for multiple myeloma with a local oncologist, she had recently undergone an L5 kyphoplasty secondary to compression fracture several weeks prior to being seen in the ER. Work-up in the emergency room included basic labs which showed a slightly elevated white blood cell count and slightly low hemoglobin, imaging studies were obtained, x-ray of the thoracic spine showed a T11 vertebral fracture-this had been present on a recent MRI dated 06/12/2020., no acute fractures were noted. Lumbar spine x-rays showed an L5 kyphoplasty and a T11 vertebral compression fracture. Patient's chemistry profile was unremarkable except for a slightly elevated potassium and elevated creatinine. Patient was given IV pain medication and admitted to [place] [id number], she was seen in consultation by oncology who recommended a bone marrow biopsy for further delineation of her multiple myeloma. Patient continued to have poorly controlled pain on the floor, multiple adjustments of her pain medications were carried out. Patient was also on Decadron. Patient was seen in consultation by radiation oncology, MRI of the sacrum was performed which showed a sacral insufficiency fracture. On 07/03/2020, patient was seen and examined: On examination she appeared moderate distress due to low back pain, she appeared her stated age. Vital signs as documented. Skin warm and dry and without overt rashes. Neck without JVD, thyroid appears normal, trachea is midline, neck is supple. Lungs clear, normal air movement was noted. Heart exam notable for regular rhythm, normal sounds and absence of murmurs, rubs or gallops. Abdomen unremarkable and without evidence of organomegaly, masses, or abdominal aortic enlargement, bowel sounds are present in all 4 quadrants, no abdominal tenderness was noted. Extremities nonedematous, no cyanosis was noted, no clubbing was noted. Neuro: Cranial nerves II through XII are grossly intact, no focal motor deficits were noted, sensation to light touch and pinprick is intact, motor exam 5/5 throughout. Psych: Patient is alert and oriented x3, she does not appear anxious or depressed, she does not appear agitated. On 07/03/2020, patient was transferred to TCU in stable condition for inpatient rehab services. Patient Problems: Active and Suspected Problems (Last Reviewed 06/29/20 @ 03:[address] Allan Yost MD) Debility (Acute) Intractable back pain (Acute) - Physical Exam Vitals/I&O's: Vital Signs Temp Pulse Resp BP Pulse Ox 98.3 F 79 12 110/66 94 07/03/20 08:55 07/03/20 13:29 07/03/20 13:29 07/03/20 13:29 07/03/20 13:29 Oxygen Flow Rate (L/min) [4] 2 Oxygen Flow Rate (L/min) [2] 2 Oxygen Flow Rate (L/min) 2 Oxygen Delivery Method [4] Nasal Cannula Oxygen Delivery Method [3] Room Air Oxygen Delivery Method [2] Nasal Cannula Oxygen Delivery Method [1 ( Room Air Initial Baseline)] Oxygen Delivery Method Room Air Weight: 90.718 kg Body Mass Index (BMI) 33.3 Intake and Output for Last 24 Hours 07/03/20 07/04/20 07/05/20 23:59 23:59 23:59 Intake Total 740 / 740 Output Total 0 / 0 Balance 740 / 740 Microbiology Past 72 Hours 06/30/20 14:00 Urine, Clean Catch Urine Culture - Final Proteus mirabilis Home Medications: Medications to take at Discharge cycloBENZAPRine HCl [Flexeril] 10 mg PO TID PRN PRN 06/09/20 hydrocortisone 2.5 % topical cream with perineal applicator 1 applic RC BID-QID PRN #28.35 g 06/18/20 [Hydrocortisone 2.5%/lidocaine 5% ointment (compound)] See Rx Instructions .ROUTE .MEDSUPPLY 06/28/20 Acetaminophen [Tylenol] 500 mg PO TID 06/28/20 Ondansetron [Zofran] 8 mg PO Q6H PRN PRN #1 tab 07/02/20 Pregabalin 75 mg PO TID #20 cap 07/02/20 Enoxaparin [Lovenox] 40 mg SUBCUT DAILY 07/03/20 Oxycodone [Oxyir] 15 - 20 mg PO Q4H PRN PRN 7 Days #30 tab 07/03/20 Polyethylene Glycol 3350 [Miralax] 17 gm PO BID 07/03/20 Senna/Docusate Sodium [Senokot-S] 2 tab PO QHS 07/03/20 fentaNYL patch [Duragesic patch] 75 mcg TRANSDERM. Q3D 07/03/20 Following Prescriptions Were Given to Patient: Oxycodone [Oxyir] 15 - 20 mg PO Q4H PRN PRN 7 Days #30 tab PRN Reason: Pain Score 4-10/10 Prescription Printed Pregabalin 75 mg PO TID #20 cap Prescription Printed Ondansetron [Zofran] 8 mg PO Q6H PRN PRN #1 tab PRN Reason: Nausea Other Amb Orders: RAD ONC: [facility] [RAD.ONC[facility]] Facility: [facility], Location: [facility] Primary Care Physician: Pia Gambino MD [Primary Care Provider] - Please Follow Up With: Antoine Nichols MD When: as directed Please Follow Up With: Rolando Larson DO When: as directed Please Follow Up With: Pallative care Patient Instructions: Bone Marrow Aspiration and Biopsy, Bone Marrow Aspiration and Biopsy, Bone Marrow Biopsy Disposition: Retirement facility Minutes spent on discharge:: 34 Patient Condition:: Stable Medical Necessity - Tobacco Use Smoking Status: Former smoker Tobacco Use: Cigarettes Meaningful Use Info Meaningful Use Diagnoses (Choose all that apply): None applicable Inpatient E&M: 69739 Disch Hosp
[2020-07-16 13:49] VITALS: BP 141/81; PULSE 101; RESP 18; TEMP 37.1; O2SAT 94; BMI 33.3
== END 2020-07-03 14:54 | disposition skilled nursing facility (03) | DRG 841 ==
LOC: ED 22:22 → MS3 06-29 00:30
PROVIDERS: Internal Medicine; Admitting Provider Hospitalist; Emergency Provider Emergency Medicine; PCP Internal Medicine; Referring Provider Hospitalist; Visit Provider Internal Medicine
DX: C90.00 Multiple myeloma not having achieved remission (principal); M84.58XA Pathological fracture in neoplastic disease, other specified site, initial encounter for fracture; N17.9 Acute kidney failure, unspecified; M51.44 Schmorl's nodes, thoracic region; M54.16 Radiculopathy, lumbar region; D75.89 Other specified diseases of blood and blood-forming organs; D50.9 Iron deficiency anemia, unspecified; G89.3 Neoplasm related pain (acute) (chronic); E66.09 Other obesity due to excess calories; M19.90 Unspecified osteoarthritis, unspecified site; N80.9 Endometriosis, unspecified; E83.52 Hypercalcemia; G43.909 Migraine, unspecified, not intractable, without status migrainosus; Z98.890 Other specified postprocedural states; Z87.19 Personal history of other diseases of the digestive system; Z87.891 Personal history of nicotine dependence; Z85.528 Personal history of other malignant neoplasm of kidney; Z68.35 Body mass index [BMI] 35.0-35.9, adult; Z86.19 Personal history of other infectious and parasitic diseases; Z79.899 Other long term (current) drug therapy; Z90.5 Acquired absence of kidney
CPT/HCPCS: 36415; 72072; 72100; 72146; 72197; 77012; 77014; 80048; 81001; 83735; 85025; 85027; 87077; 87086; 87088; 87186; 87635; 88305; 88311; 88313; 88341; 88342; 97162; 97166; 97530; 97535; 99251; 99285; 99406; A9575; J7030; J7040; J7050; A4216; G0463; J1170; J2405; U0003

== ENCOUNTER 2020-07-03 16:12 | Inpatient (IN) | payer OTHER, SELFPAY ==
[2020-07-01 12:30] VITALS: BMI 33.3
[2020-07-03 16:25] VITALS: BP 129/78; PULSE 69; RESP 17; TEMP 36.7; O2SAT 93; BMI 33.2; BMI 332779.2
[2020-07-03] MEDS: HYDROmorphone 1 MG/ML Syringe IV (17:54)
[2020-07-03] MEDS: Ondansetron 8 MG Tablet PO (20:20)
[2020-07-03 20:22] VITALS: BP 134/80; PULSE 70; RESP 20; O2SAT 98
--- NOTE | 2020-07-03 20:41 | PCA ---
patient refused to get washed up for bed tonight.
[2020-07-03] MEDS: Acetaminophen 500 MG Tablet 1000 MG PO (21:33)
[2020-07-03] MEDS: Pregabalin 75 MG Capsule PO (21:33)
--- NOTE | 2020-07-03 21:36 | HP.PCM_ITS ---
Problem List (1) Debility Status: Acute (2) Intractable back pain Status: Acute (3) Compression fracture of T11 vertebra Status: Chronic (4) Multiple myeloma Status: Chronic (5) Muscle spasm Status: Chronic (6) Pancreatitis Status: Chronic Qualifiers: (7) Renal cell cancer Status: Chronic Qualifiers: (8) Iron deficiency anemia Status: Chronic Qualifiers: History of Present Illness Date of Admission: 07/03/20 Chief Complaint: Here for rehabilitation, strengthening, prior to discharge home alone. 06/28/20 The patient is a 55 year old Female with below past medical history presented to [facility] Emergency Department with back pain. 06/28/20 X-ray Thoracic spine showed T11 compression fracture. 06/28/20 X-ray Lumbar spine showed L5 kyphoplasty. Dr. Nichols evaluating patient for multiple myeloma, recent 3 compression fractures. Pain not relieved by oxycodone, fentanyl, morphine. Unable to lie down due to pain. Unable to transfer off of commode. Dilaudid, Valium given. 06/28/20 Admit to Hospital. Pain control with multiple modalities. 06/29/20 MRI Thoracic spine suspect metastatic disease or multiple myeloma. 07/01/20 CT guided bone marrow biopsy, aspiration successfully performed. 07/03/20 Radiation Oncology recommended starting radiation treatment 07/07/20. 07/03/20 MRI pelvis showed left sacral ala fracture, multiple myeloma. 07/03/20 Admit to TCU with debility, here for rehabilitation, strengthening, prior to discharge home alone. Past Medical History Past Medical History (Chronic Problems): Chronic Problems (Last Reviewed 06/29/20 @ 03:[address] Allan Yost MD) Lumbar compression fracture (Chronic) recent history of kyphoplasty, due to multiple myeloma Compression fracture of T11 vertebra (Chronic) Multiple myeloma (Chronic) Muscle spasm (Chronic) Hemorrhoids (Chronic) Pain of sternum (Chronic) Pancreatitis (Chronic) Obesity (Chronic) Former tobacco use (Chronic) Renal cell cancer (Chronic) Iron deficiency anemia (Chronic) History of nausea and vomiting (Chronic) History of abdominal pain (Chronic) Medical History: Medical History (Last Reviewed 06/29/20 @ 03:[address] Allan Yost MD) Screening for intestinal cancer (Inactive) Z12.10 Pancreatitis (Chronic) K85.90 Obesity (Chronic) E66.9 Former tobacco use (Chronic) Z87.891 Renal cell cancer (Chronic) C64.9 Iron deficiency anemia (Chronic) D50.9 URI, acute (Inactive) J06.9 History of nausea and vomiting (Chronic) Z87.898 History of abdominal pain (Chronic) Z87.898 Arthritis M19.90 Back problem M53.9 Carpal tunnel syndrome G56.00 Endometriosis N80.9 Headache, migraine G43.909 History of pneumococcal infection Z86.19 Seasonal allergies J30.2 history of bone fracture Allergies latex Allergy (Mild, Verified 06/28/20 21:50) rash Penicillins Allergy (Verified 06/28/20 21:50) Unknown adhesive tape Adverse Reaction (Verified 06/28/20 21:50) Rash Home Medications: Ambulatory Orders Medication Instructions Recorded cycloBENZAPRine HCl [Flexeril] 10 mg PO TID PRN PRN 06/09/20 hydrocortisone 2.5 % topical cream 1 applic RC BID-QID PRN #28.35 g 06/18/20 with perineal applicator [Hydrocortisone 2.5%/lidocaine 5% See Rx Instructions .ROUTE 06/28/20 ointment (compound)] .MEDSUPPLY Acetaminophen [Tylenol] 500 mg PO TID 06/28/20 Ondansetron [Zofran] 8 mg PO Q6H PRN PRN #1 tab 07/02/20 Pregabalin 75 mg PO TID #20 cap 07/02/20 Enoxaparin [Lovenox] 40 mg SUBCUT DAILY 07/03/20 Oxycodone [Oxyir] 15 - 20 mg PO Q4H PRN PRN 7 Days 07/03/20 #30 tab Polyethylene Glycol 3350 [Miralax] 17 gm PO BID 07/03/20 Senna/Docusate Sodium [Senokot-S] 2 tab PO QHS 07/03/20 fentaNYL patch [Duragesic patch] 75 mcg TRANSDERM. Q3D 07/03/20 Surgical History: Surgical History (Last Reviewed 06/29/20 @ 01:[address] Allan Yost MD) History of back surgery Z98.890 cement a vertabrae L4 Status post endometrial ablation Z98.892011 s/p kidney cancer mass removed from kidney 2011 Surgical History: tonsillectomy, - - L4 kyphoplasty, endometrial ablation, partial nephrectomy. 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 Allan Yost MD) Brother Asthma Malignant hyperthermia due to anesthesia Hypertension Grandfather Colon cancer Mother Heart disease Thyroid disorder COPD (chronic obstructive pulmonary disease) Arthritis Anemia Sister Breast cancer Hypertension Thyroid disorder Arthritis Father Bleeding disorder Cancer Myelodysplastic syndrome Chronic lymphocytic leukemia Alcohol abuse Aunt Myocardial infarction History Items: - - Patient notes a maternal family history of heart disease, specifically valvular heart disease, COPD with tobacco use history. Paternal Family History: Family History (Last Reviewed 06/29/20 @ 03:[address] Allan Yost MD) Brother Asthma Malignant hyperthermia due to anesthesia Hypertension Grandfather Colon cancer Mother Heart disease Thyroid disorder COPD (chronic obstructive pulmonary disease) Arthritis Anemia Sister Breast cancer Hypertension Thyroid disorder Arthritis Father Bleeding disorder Cancer Myelodysplastic syndrome Chronic lymphocytic leukemia Alcohol abuse Aunt Myocardial infarction History Items: - - Patient notes a history of heart disease, coronary disease status post PCI x1, lung cancer with tobacco use history. Review of Systems Constitutional: Denies: Chills, Fever, Weight Change HEENT: Denies: Head Aches, Sinus Congestion, Sinus Drainage Cardiovascular: Denies: Chest Pain, Palpitations Respiratory: Denies: Cough, Shortness of breath at rest, Sputum production Gastrointestinal: Denies: Abdominal Pain, Nausea, Vomiting Genitourinary: Denies: Dysuria Musculoskeletal: Reports: Back Pain, Muscle pain. Denies: Joint Pain, Joint Tenderness Skin: Denies: Rash, Wounds Neurological: Denies: Numbness, Tingling, Focal weakness Psychiatric: Denies: Anxiety, Depression, Homicidal Ideations, Suicidal Ideations Hematologic/ Lymphatic: Denies: Easy Bruising, Easy Bleeding VTE Information - Inpt Only VTE Present on Admission: No VTE Mechan Device Prophylaxis: Knee High MANNY Hose VTE Pharm Prophylaxis ordered?: Yes Patient Problems: Active and Suspected Problems (Last Reviewed 06/29/20 @ 03:[address] Allan Yost MD) Debility (Acute) Intractable back pain (Acute) - Physical Exam Vitals/I&O's: Vital Signs Temp Pulse Resp BP Pulse Ox 98.1 F 70 20 H 134/80 H 98 07/03/20 16:25 07/03/20 20:22 07/03/20 20:22 07/03/20 20:22 07/03/20 20:22 Oxygen Delivery Method Room Air Weight: 90.718 kg Body Mass Index (BMI) 022449.2 General: Alert, Oriented x3, Cooperative HEENT: Atraumatic, PERRLA, EOMI, Normocephalic Neck: Supple, No JVD, Negative Carotid Bruits Lungs: Clear to auscultation, Normal air movement Cardiovascular: Regular rate, No murmurs Abdomen: Bowel Sounds Present, Soft, Non Tender Extremities: No edema, Capillary Refill Less than 3 Seconds Skin: No rashes, No breakdown Musculoskeletal: No Tenderness to Palpation of Joints or Extremities Neurological: Cranial nerves II-XII grossly intact Psych/Mental Status: Normal Affect, Appropriate Laboratory Results 07/03/20 18:41: COVID-19 (FRANKIE) Pending Current Medications Acetaminophen (Tylenol) 1,000 mg PO TID [facility] Last Admin: 07/03/20 21:33 Dose: 1,000 mg Documented by: Cyclobenzaprine HCl (Flexeril) 10 mg PO TID PRN PRN PRN Reason: Pain Score 1-10/10 Enoxaparin Sodium (Lovenox) 40 mg SC DAILY [facility] Fentanyl (Duragesic Patch) 75 mcg TRANSDERM. Q3D [facility] Stop: 07/06/20 10:01 Hydrocortisone (Hytone) 1 applic TOPICAL 4X/DAY PRN PRN Reason: hemorrhoids Hydromorphone HCl (Dilaudid Inj) 1 mg IV Q3H PRN PRN PRN Reason: Pain Score 6-10/10 Last Admin: 07/03/20 17:54 Dose: 1 mg Documented by: Nutritional Formula (Lactose Free) (Ensure Enlive) 120 ml PO 4X/DAY [facility] Last Admin: 07/03/20 21:34 Dose: Not Given Documented by: Ondansetron HCl (Zofran) 8 mg PO Q6H PRN PRN PRN Reason: NAUSEA Last Admin: 07/03/20 20:20 Dose: 8 mg Documented by: Oxycodone HCl (Oxyir) 20 mg PO Q4H PRN PRN PRN Reason: Pain Score 1-5/10 Stop: 07/10/20 16:57 Polyethylene Glycol (Miralax) 17 gm PO BID [facility] Last Admin: 07/03/20 18:07 Dose: Not Given Documented by: Pregabalin (Lyrica) 75 mg PO TID [facility] Stop: 07/10/20 06:01 Last Admin: 07/03/20 21:33 Dose: 75 mg Documented by: Senna/Docusate Sodium (Senokot-S, Veronique-Colace) 2 tablet PO QHS [facility] Last Admin: 07/03/20 21:34 Dose: Not Given Documented by: Tuberculin PPD (Tubersol, Aplisol, Ppd) 5 tu ID X1 ONE Stop: 07/04/20 10:01 Tuberculin PPD (Tubersol, Aplisol, Ppd) 5 tu ID X1 ONE Stop: 07/11/20 10:01 Assessment/Plan All Active Problems (Last Reviewed 06/29/20 @ 03:[address] Allan Yost MD) Acute back pain (Acute) Thoracic vertebral fracture (Acute) Acute renal injury (Acute) Uncontrolled pain (Acute) Debility (Acute) Intractable back pain (Acute) 55 year old female with below past medical history hospitalized for intractable pain secondary to pathologic compression fractures from multiple myeloma, admitted to TCU with debility, here for rehabilitation, strengthening, prior to discharge home alone. Resident starting radiation therapy 07/07/20. * Debility - PT/OT. * Pain - Tylenol 1000MG TID, Fentanyl patch 100MCG 1 patch Q3D, Dilaudid 1MG IV Q3H PRN pain (6-10), Oxycodone 20MG Q4H PRN pain (1-5). * Bowel - Miralax 17GM BID, Senna/colace 2 tablets BID, Dulcolax 10MG OH daily PRN. * Adult immunization - Administer Prevnar 13, Pneumovax 23, Fluzone as appropriate. * DVT prophylaxis - Lovenox 40MG SC daily. * Muscle spasm - Baclofen 10MG TID. * Nutrition - Ensure 120ML 4x/day. * Rash - Hytone topical 4x/day PRN. * Nausea - Zofran 8MG Q6H PRN. * Neuropathic pain - Lyrica 75MG TID. * Multiple myeloma - Medrol dose pack, Radiation starting 07/07/20.
[2020-07-04] MEDS: Acetaminophen 500 MG Tablet 1000 MG PO ×3 (05:32→21:49)
[2020-07-04] MEDS: oxyCODONE 5 MG Tablet 20 MG PO ×4 (05:32→21:50)
[2020-07-04] MEDS: Ondansetron 8 MG Tablet PO ×2 (05:32→15:01)
[2020-07-04] MEDS: Pregabalin 75 MG Capsule PO ×3 (05:32→21:49)
[2020-07-04] MEDS: Baclofen 10 MG Tablet PO ×3 (05:34→21:49)
[2020-07-04] MEDS: Enoxaparin 40 MG/0.4 ML Syringe SC (05:35)
[2020-07-04 05:39] VITALS: BP 124/76; PULSE 79; RESP 19; TEMP 36.9; O2SAT 98
[2020-07-04 05:46] LABS: Absolute Lymphocyte Count 1.93 X10^3/uL (0.83-4.51); Absolute Neutrophil Count 5.3 X10^3/uL (2.0-7.7); Basophil# 0.01 X10^3/uL; Basophil% 0.1 % (0-1); Eosinophil# 0.06 X10^3/uL; Eosinophils% 0.7 % (0-5); Hematocrit 29.7 % (37-47); Hemoglobin 9.6 g/dL (12.0-15.0); Lymphocyte # 1.93 X10^3/ul (4.0); Lymphocyte % 22.5 % (19-41); Mean Corp Hgb Conc 32.3 g/dL (32-36); Mean Corpuscular Volume 92.8 fL (81-99); Mean Platelet Vol. 9.2 fl (6.2-12.0); Monocyte% 11.7 % (0-10); NRBC Flagged by Analyzer 0.4 % (0-5); Platelet Count 209 K/mm3 (150-450); RBC Distribution Width CV 12.2 % (11.6-14.6); RBC Distribution Width SD 40.9 fl (35.1-43.9); White Blood Count 8.6 K/mm3 (4.4-11.0)
--- NOTE | 2020-07-04 05:58 | NURSING ---
Duragesic patch intact to Rt chest.
[2020-07-04 06:07] LABS: Anion Gap 3 (5-15); BUN 27 mg/dL (7-18); BUN/Creat Ratio 29.4 RATIO (10-20); Calcium,Total 8.9 mg/dL (8.5-10.1); Chloride 103 mmol/L (98-107); Creatinine, Serum 0.92 mg/dL (0.55-1.02); EST Glomerular Filtration Rate 67 mL/min (>60); Est Glom Filt Rate - Afr Amer 82 mL/min (>60); Estimated Creatinine Clearance 97.78 ml/min; Glucose 75 mg/dL (74-106); Potassium 4.1 mmol/L (3.5-5.1); Sodium Level 138 mmol/L (136-145)
[2020-07-04] MEDS: MethylPREDNISolone DosePak 4 MG BOX PO ×4 (07:47→21:48)
[2020-07-04] MEDS: 0.9% Saline Lock 10 ML Syringe IV ×2 (07:52→10:18)
[2020-07-04] MEDS: HYDROmorphone 1 MG/ML Syringe IV (07:52)
[2020-07-04] MEDS: Polyethylene Glycol 3350 17 GM PACKET PO ×2 (07:56→18:09)
[2020-07-04] MEDS: Ondansetron 4 MG/2 ML Vial 8 MG IV (10:16)
--- NOTE | 2020-07-04 12:06 | PHA.CONS_ITS ---
<GarciaZeina - Last Filed: 07/04/20 12:06> Progress Note - Pharmacy Subjective: TCU Admission Objective: Allergies latex Allergy (Mild, Verified 06/28/20 21:50) rash Penicillins Allergy (Verified 06/28/20 21:50) Unknown adhesive tape Adverse Reaction (Verified 06/28/20 21:50) Rash Current Medications Generic Name Dose Route Start Last Admin Trade Name Freq PRN Reason Stop Dose Admin Acetaminophen 1,000 mg 07/03/20 22:00 07/04/20 05:32 Tylenol PO 1,000 mg TID DANELLE Administration Baclofen 10 mg 07/03/20 22:00 07/04/20 05:34 Lioresal PO 10 mg TID [facility] Administration Bisacodyl 10 mg 07/03/20 21:53 Dulcolax RECTAL DAILY PRN PRN Constipation Enoxaparin Sodium 40 mg 07/04/20 06:00 07/04/20 05:35 Lovenox SC 40 mg DAILY [facility] Administration Fentanyl 100 mcg 07/06/20 10:00 Duragesic Patch TRANSDERM. Q3D [facility] Hydrocortisone 1 applic 07/03/20 16:56 Hytone TOPICAL 4X/DAY PRN hemorrhoids Hydromorphone HCl 1 mg 07/03/20 17:31 07/04/20 07:52 Dilaudid Inj IV 1 mg Q3H PRN PRN Administration Pain Score 6-10/10 Methylprednisolone 4 mg 07/03/20 22:00 07/04/20 07:47 Medrol Dosepak PO 07/08/20 08:59 4 mg 0800,1200,1700 [facility] Administration Taper Nutritional Formula (Lactose Free) 120 ml 07/03/20 22:00 07/04/20 11:44 Ensure Enlive PO Not Given 4X/DAY [facility] Ondansetron HCl 8 mg 07/03/20 16:56 07/04/20 05:32 Zofran PO 8 mg Q6H PRN PRN Administration NAUSEA Oxycodone HCl 20 mg 07/03/20 17:32 07/04/20 11:37 Oxyir PO 20 mg Q4H PRN PRN Administration Pain Score 1-5/10 Polyethylene Glycol 17 gm 07/04/20 08:00 07/04/20 07:56 Miralax PO 17 gm 0800,2000 [facility] Administration Pregabalin 75 mg 07/03/20 22:00 07/04/20 05:32 Lyrica PO 75 mg TID DANELLE Administration Senna/Docusate Sodium 2 tablet 07/04/20 08:00 07/04/20 11:40 Senokot-S, Veronique-Colace PO Not Given DANELLE Sodium Chloride 10 - 40 ml 07/03/20 21:50 07/04/20 10:18 IV 10 ml UD PRN Administration SALINE FLUSH Tuberculin PPD 5 tu 07/11/20 10:00 Tubersol, Aplisol, Ppd ID 07/11/20 10:01 X1 ONE Problem List (Last Reviewed 06/29/20 @ 03:[address] Allan Yost MD) Debility (Acute) Intractable back pain (Acute) Compression fracture of T11 vertebra (Chronic) Multiple myeloma (Chronic) Muscle spasm (Chronic) Vital Signs Temp Pulse Resp BP Pulse Ox 98.4 F 79 19 H 124/76 H 98 07/04/20 05:39 07/04/20 05:39 07/04/20 05:39 07/04/20 05:39 07/04/20 05:39 Oxygen Delivery Method Room Air Weight: 90.718 kg Body Mass Index (BMI) 810400.2 Sodium 138 mmol/L (136-145) 07/04/20 05:25 Potassium 4.1 mmol/L (3.5-5.1) 07/04/20 05:25 Chloride 103 mmol/L (98-107) 07/04/20 05:25 Carbon Dioxide 32.0 mmol/L (21.0-32.0) 07/04/20 05:25 Anion Gap 3 (5-15) L 07/04/20 05:25 BUN 27 mg/dL (7-18) H 07/04/20 05:25 Creatinine 0.92 mg/dL (0.55-1.02) 07/04/20 05:25 Est GFR (MDRD) Af Amer 82 mL/min (>60) 07/04/20 05:25 Est GFR (MDRD) Non-Af 67 mL/min (>60) 07/04/20 05:25 BUN/Creatinine Ratio 29.4 RATIO (10-20) H 07/04/20 05:25 Glucose 75 mg/dL (74-106) 07/04/20 05:25 Assessment/Plan: 1. Pain: acetaminophen 1000mg PO TID, fentanyl patch 100mcg TD Q3D, oxycodone 20mg PO Q4H PRN pain 1-510, and hydromorphone 1mg Q3H PRN pain 6-1010. Please continue to monitor for increased pain, constipation, respiratory depression, and PRN usage. 2. Multiple myeloma: methylprednisolone dose pack thru 07/08. Please continue to monitor for increased blood sugars, upset stomach, and insomnia. 3. DVT prophylaxis: enoxaparin 40mg SC daily. Please continue to monitor for S/S of bleeding/DVT, renal function, hemoglobin (last 9.6 g/dL), and platelets (last 209). 4. Muscle spasm: baclofen 10mg PO TID. Please continue to monitor for muscle spasms. 5. Nausea: ondansetron 8mg PO Q6H PRN nausea. Please continue to monitor for nausea and PRN usage. 6. Neuropathic pain: pregabalin 75mg PO BID. Please continue to monitor renal function, relief of nerve pain, and confusion. Psychotropic Medications: None Unnecessary Medications: None Bowel Regimen: Miralax 17gm PO BID, senna/docusate 2T PO BID, and bisacodyl 10mg MT daily PRN constipation. Please continue to monitor for S/S of constipation and PRN usage. Date of Note:: 07/04/20 - Provider Comments Provider responsibility: Provider responsible to enter orders to implement recommendations <Aguila Cardona Chi - Last Filed: 07/04/20 13:56> Progress Note - Pharmacy Subjective: [] Objective: Allergies latex Allergy (Mild, Verified 06/28/20 21:50) rash Penicillins Allergy (Verified 06/28/20 21:50) Unknown adhesive tape Adverse Reaction (Verified 06/28/20 21:50) Rash Current Medications Generic Name Dose Route Start Last Admin Trade Name Freq PRN Reason Stop Dose Admin Acetaminophen 1,000 mg 07/03/20 22:00 07/04/20 13:47 Tylenol PO 1,000 mg TID DANELLE Administration Baclofen 10 mg 07/03/20 22:00 07/04/20 13:48 Lioresal PO 10 mg TID DANELLE Administration Bisacodyl 10 mg 07/03/20 21:53 Dulcolax RECTAL DAILY PRN PRN Constipation Enoxaparin Sodium 40 mg 07/04/20 06:00 07/04/20 05:35 Lovenox SC 40 mg DAILY DANELLE Administration Fentanyl 100 mcg 07/06/20 10:00 Duragesic Patch TRANSDERM. Q3D [facility]ANELLE Hydrocortisone 1 applic 07/03/20 16:56 Hytone TOPICAL 4X/DAY PRN hemorrhoids Hydromorphone HCl 1 mg 07/03/20 17:31 07/04/20 07:52 Dilaudid Inj IV 1 mg Q3H PRN PRN Administration Pain Score 6-10/10 Methylprednisolone 4 mg 07/03/20 22:00 07/04/20 13:46 Medrol Dosepak PO 07/08/20 08:59 4 mg 0800,1200,1700 DANELLE Administration Taper Ondansetron HCl 8 mg 07/03/20 16:56 07/04/20 05:32 Zofran PO 8 mg Q6H PRN PRN Administration NAUSEA Oxycodone HCl 20 mg 07/03/20 17:32 07/04/20 11:37 Oxyir PO 20 mg Q4H PRN PRN Administration Pain Score 1-5/10 Polyethylene Glycol 17 gm 07/04/20 08:00 07/04/20 07:56 Miralax PO 17 gm [facility] Administration Pregabalin 75 mg 07/03/20 22:00 07/04/20 13:48 Lyrica PO 75 mg TID [facility] Administration Senna/Docusate Sodium 2 tablet 07/04/20 08:00 07/04/20 11:40 Senokot-S, Veronique-Colace PO Not Given [facility] Sodium Chloride 10 - 40 ml 07/03/20 21:50 07/04/20 10:18 IV 10 ml UD PRN Administration SALINE FLUSH Tuberculin PPD 5 tu 07/11/20 10:00 Tubersol, Aplisol, Ppd ID 07/11/20 10:01 X1 ONE Problem List (Last Reviewed 06/29/20 @ 03:[address] Allan Yost MD) Debility (Acute) Intractable back pain (Acute) Compression fracture of T11 vertebra (Chronic) Multiple myeloma (Chronic) Muscle spasm (Chronic) Vital Signs Temp Pulse Resp BP Pulse Ox 98.4 F 79 19 H 124/76 H 98 09/25/20 05:39 07/04/20 05:39 07/04/20 05:39 07/04/20 05:39 07/04/20 05:39 Oxygen Delivery Method Room Air Weight: 90.718 kg Body Mass Index (BMI) 142550.2 Sodium 138 mmol/L (136-145) 07/04/20 05:25 Potassium 4.1 mmol/L (3.5-5.1) 07/04/20 05:25 Chloride 103 mmol/L (98-107) 07/04/20 05:25 Carbon Dioxide 32.0 mmol/L (21.0-32.0) 07/04/20 05:25 Anion Gap 3 (5-15) L 07/04/20 05:25 BUN 27 mg/dL (7-18) H 07/04/20 05:25 Creatinine 0.92 mg/dL (0.55-1.02) 07/04/20 05:25 Est GFR (MDRD) Af Amer 82 mL/min (>60) 07/04/20 05:25 Est GFR (MDRD) Non-Af 67 mL/min (>60) 07/04/20 05:25 BUN/Creatinine Ratio 29.4 RATIO (10-20) H 07/04/20 05:25 Glucose 75 mg/dL (74-106) 07/04/20 05:25 Assessment/Plan: Psychotropic Medications: Unnecessary Medications: Bowel Regimen: - Provider Comments Provider responsibility: Provider responsible to enter orders to implement recommendations Provider Comments to Recommendations by Pharmacy: Agree
--- NOTE | 2020-07-04 14:36 | CASEMGMT ---
Social Work Discussed patient's code status. Pt confirmed full code. MOLST form completed in chart. Sarah Lynn, RECRUITMENT MANAGER BUILDING SPECIALIST
--- NOTE | 2020-07-04 14:58 | NURSING ---
John RN from hospice here and updated on new orders from Dr Cardona of oxycontin 20mg BID & Reglan ACHS for nausea. pt resting in bed w/eyes closed.
[2020-07-04] MEDS: Tuberculin,Purif.prot.deriv. 50 TU/ML Vial 5 ML ID (15:05)
--- NOTE | 2020-07-04 15:59 | NURSING ---
Carri from palliative called and would pt placed back on lidoderm patch to lower back on during day & off at HS. Dr Cardona updated, order entered. pt assisted to BSC x2 SB assist, voided and then back to bed. pt very painful. oxyir given as ordered 10/10 pain. polar care placed to lumbar area for comfort. grain mixer in to speak with pt. Pt requesting purewick d/t severe pain with movement, pt to call when feels she is ready to use it. pt resting in bed on back, call light in reach.
--- NOTE | 2020-07-04 16:04 | CHAPLAIN ---
Type of Pastoral Visit _x__ Initial Visit ___ Follow-up Visit ___ On-call Visit ___ General Patient Visit ___ Spiritual Assessment ___ Family Conference ___ Bereavement ___ Rapid Response ___ Code Blue ___ Other (describe below) Pastoral Care Referral From _x__ Patient ___ Family ___ Nurse ___ Physician _x__ Infection Control Nurse ___ Building Dismantler ___ Other (describe below) Sacrament/Intervention _x__ Active listening ___ Anointing ___ Synagogue ___ Bereavement ___ Communion _x__ Sweta exploration ___ ___ Life review _x__ Prayer ___ Reconciliation ___ Sacrament of Sick _x__ Supportive presence ___ Wedding ___ Other (describe below) Pastoral Comments patient with new diagnosis of cancer; pt has had great pain, is tired, missing family, and states this is feeling overwhelming; pt however also speaks of great support from family, friends, co-workers, jew, and has evidence of such by many chavarria in room; pt welcomes spiritual care support; pt is tearful at times; pt given time to express herself; pt offered support and ongoing visits as she desires; prayer welcomed;
[2020-07-04 16:12] VITALS: PULSE 99; RESP 18; O2SAT 96
--- NOTE | 2020-07-04 16:56 | PCM.CONS.P ---
Problem List (1) Intractable back pain Status: Acute History of Present Illness Date of Consult: 07/04/20 Reason for Consult: intractable pain and nausea Requesting physician: [Dr. Cardona] Primary care physician: Dr. Pia Gambino MD - History of Present Illness Deepa is a 55-year-old female who is seen today while in the transitional care unit of [facility] for intractable pain and nausea. She was seen by Dr. Miles on 06/27/2020 for an initial consultation and evaluation during which multiple new medications were started. She was transported to [facility]'s emergency department on 06/28/2020 for severe intractable pain and inability to transfer, ambulate, or lie down. She was admitted to the hospital on the same date and on 06/29 should an MRI of the thoracic spine with suspected metastatic disease/multiple myeloma, a CT-guided bone marrow biopsy was completed on 07/01 (results are pending), and MRI of the pelvis done on 07/03 showed a left sacral all of fracture consistent again with multiple myeloma. She was discharged from the MedSurg unit and admitted to transitional care for rehabilitation, strengthening, and beginning radiation treatment starting 07/07. However, at the time of her discharge and transfer, there was a significant amount of medication changes made which has resulted in a severe pain crisis for Deepa. Additionally, Deepa has a past medical history that includes a right kidney cancer, endometriosis, environmental allergies, but has otherwise been quite healthy. It has been requested that [facility] consult for pain management and nausea recommendations. Deepa is seen today in her TCU room. She appears very fatigued in tired, however she is conversive and awake. She appears moderately uncomfortable at rest, quite uncomfortable with grimacing noted when she tries to move. Deepa describes her current pain level as 10/10 and like a crushing feeling in my spine Pain in constant and in her low back and pelvic area. Additionally, she describes her pain as both dull, sharp, stabbing, and throbbing; basically every kind of pain, all at once She is able to tell me that while she was on MedSurg, her pain was very well controlled, 4-5/10, and she was able to ambulate and bathe with minimal assistance. Unfortunately, on the day of discharge many of her medications were discontinued or changed, and she had multiple imaging procedures before being transferred to TCU, where her medications were changed again, causing her to go a significant period of time without many of these medications. Her current pain regimen includes Dilaudid 1 mg IV every 3 hours PRN, fentanyl patch 100 mcg, Lyrica 75 mg by mouth 3 times a day, oxycodone 20 mg 3 times a day scheduled and 20 mg by mouth every 4 PRN. Her current medications to help with nausea include Reglan 10 mg by mouth before meals at bedtime PRN, and Zofran 8 mg by mouth every 6 hours PRN. Deepa is quite tearful throughout today's visit, noting extreme frustration and that her medications were changed so drastically after she was doing so well just two days prior. She is also anxious and fearful of beginning radiation on Tuesday, especially if her pain is still out of control, because laying in that machine is like torture Deepa does remain quite future-oriented and positive regarding the outlook of her prognosis and upcoming treatment, and she notes that she this will just be one of many setbacks throughout her life. Emotional support and validation of feelings was provided. Patient Problems: Chronic Problems (Last Reviewed 06/29/20 @ 03:[address] Allan Yost MD) Lumbar compression fracture (Chronic) recent history of kyphoplasty, due to multiple myeloma Compression fracture of T11 vertebra (Chronic) Multiple myeloma (Chronic) Muscle spasm (Chronic) Hemorrhoids (Chronic) Pain of sternum (Chronic) Pancreatitis (Chronic) Obesity (Chronic) Former tobacco use (Chronic) Renal cell cancer (Chronic) Iron deficiency anemia (Chronic) History of nausea and vomiting (Chronic) History of abdominal pain (Chronic) Surgical History: tonsillectomy, - - L4 kyphoplasty, endometrial ablation, partial nephrectomy. Psychiatric History: No pertinent psych hx Home Medications: Ambulatory Orders Medication Instructions Recorded cycloBENZAPRine HCl [Flexeril] 10 mg PO TID PRN PRN 06/09/20 hydrocortisone 2.5 % topical cream 1 applic RC BID-QID PRN #28.35 g 06/18/20 with perineal applicator [Hydrocortisone 2.5%/lidocaine 5% See Rx Instructions .ROUTE 06/28/20 ointment (compound)] .MEDSUPPLY Acetaminophen [Tylenol] 500 mg PO TID 06/28/20 Ondansetron [Zofran] 8 mg PO Q6H PRN PRN #1 tab 07/02/20 Pregabalin 75 mg PO TID #20 cap 07/02/20 Enoxaparin [Lovenox] 40 mg SUBCUT DAILY 07/03/20 Oxycodone [Oxyir] 15 - 20 mg PO Q4H PRN PRN 7 Days 07/03/20 #30 tab Polyethylene Glycol 3350 [Miralax] 17 gm PO BID 07/03/20 Senna/Docusate Sodium [Senokot-S] 2 tab PO QHS 07/03/20 fentaNYL patch [Duragesic patch] 75 mcg TRANSDERM. Q3D 07/03/20 Allergies latex Allergy (Mild, Verified 06/28/20 21:50) rash Penicillins Allergy (Verified 06/28/20 21:50) Unknown adhesive tape Adverse Reaction (Verified 06/28/20 21:50) Rash Maternal Family History: Family History (Last Reviewed 06/29/20 @ 03:[address] Allan Yost MD) Brother Asthma Malignant hyperthermia due to anesthesia Hypertension Grandfather Colon cancer Mother Heart disease Thyroid disorder COPD (chronic obstructive pulmonary disease) Arthritis Anemia Sister Breast cancer Hypertension Thyroid disorder Arthritis Father Bleeding disorder Cancer Myelodysplastic syndrome Chronic lymphocytic leukemia Alcohol abuse Aunt Myocardial infarction History Items: - - Patient notes a maternal family history of heart disease, specifically valvular heart disease, COPD with tobacco use history. Paternal Family History: Family History (Last Reviewed 06/29/20 @ 03:[address] Allan Yost MD) Brother Asthma Malignant hyperthermia due to anesthesia Hypertension Grandfather Colon cancer Mother Heart disease Thyroid disorder COPD (chronic obstructive pulmonary disease) Arthritis Anemia Sister Breast cancer Hypertension Thyroid disorder Arthritis Father Bleeding disorder Cancer Myelodysplastic syndrome Chronic lymphocytic leukemia Alcohol abuse Aunt Myocardial infarction History Items: - - Patient notes a history of heart disease, coronary disease status post PCI x1, lung cancer with tobacco use history. - Social History Lives: Alone Smoking Status: Former smoker Tobacco Use: Non-smoker Alcohol: None Drugs: None Review of Systems Constitutional: Reports: Anorexia, Malaise, Weakness, Fatigue. Denies: Chills Cardiovascular: Denies: Chest Pain, Orthopnea, Palpitations Respiratory: Reports: Cough. Denies: Pleuritic Pain, Shortness of Breath, Wheezing Gastrointestinal: Reports: Nausea. Denies: Abdominal Pain, Constipation, Diarrhea, Vomiting Genitourinary: Denies: Dysuria, Incontinence Musculoskeletal: Reports: Back Pain, Leg Pain Neurological: Reports: Balance problems, Difficulty swallowing. Denies: Change in Speech, Focal weakness, Headaches, Tremor Psychiatric: Reports: Anxiety, Depression. Denies: Homicidal Ideations, Suicidal Ideations Physical Exam General: Alert, Oriented x3, Cooperative, Well developed, Well nourished, Lethargic - due to medications, but able to appropriate participate in conversation. HEENT: Atraumatic, PERRLA, EOMI, Normocephalic, EAC Clear Oral: Moist Mucosa Lungs: Normal air movement, Wheezes - expiratory LLL wheeze Cardiovascular: Regular rate, Regular Rhythm, Normal S1, Normal S2, No murmurs Abdomen: Bowel Sounds Present, Soft, Non Tender, Non-Distended, Passing Flatus Extremities: No edema, Capillary Refill Less than 3 Seconds Skin: No rashes, No breakdown Musculoskeletal: No Muscle Wasting, Tenderness, - - extensive pain from mid-back down to sacral area and pelvis. Neurological: Cranial nerves II-XII grossly intact Psych/Mental Status: Anxious, Depressed, Alert and oriented to time, place, person, mood and affect Objective: Vital Signs Temp Pulse Resp BP Pulse Ox 98.4 F 99 18 124/76 H 96 07/04/20 05:39 07/04/20 16:12 07/04/20 16:12 07/04/20 05:39 07/04/20 16:12 Oxygen Delivery Method Room Air Weight: 199 lb 15.983 oz Body Mass Index (BMI) 063285.2 Intake and Output for Last 24 Hours 07/02/20 07/03/20 07/04/20 23:59 23:59 23:59 Intake Total 120 / 120 860 / 860 Balance 120 / 120 860 / 860 Laboratory Tests Past 24 Hrs 07/03/20 07/04/20 07/04/20 18:41 05:25 05:25 WBC 8.6 RBC 3.20 L Hgb 9.6 L Hct 29.7 L MCV 92.8 MCH 30.0 MCHC 32.3 RDW Std Deviation 40.9 RDW Coeff of Marcia 12.2 Plt Count 209 MPV 9.2 Immature Gran % (Auto) 3.000 H Neut % (Auto) 62.0 Lymph % (Auto) 22.5 Starke % (Auto) 11.7 H Eos % (Auto) 0.7 Baso % (Auto) 0.1 Absolute Neuts (auto) 5.3 Absolute Lymphs (auto) 1.93 Nucleated RBC % 0.4 Sodium 138 Potassium 4.1 Chloride 103 Carbon Dioxide 32.0 Anion Gap 3 L BUN 27 H Creatinine 0.92 Estim Creat Clear Calc 97.78 Est GFR (MDRD) Af Amer 82 Est GFR (MDRD) Non-Af 67 BUN/Creatinine Ratio 29.4 H Glucose 75 Calcium 8.9 COVID-19 (FRANKIE) Pending Assessment/Plan All Active Problems (Last Reviewed 06/29/20 @ 03:[address] Allan Yost MD) Acute back pain (Acute) Thoracic vertebral fracture (Acute) Acute renal injury (Acute) Uncontrolled pain (Acute) Debility (Acute) Intractable back pain (Acute) ASSESSMENT/PLAN: Given the patient's level of ongoing severe pain, I would continue current interventions as noted in HPI with the following changes. 1. I would recommend starting the patient on Haldol 0.5 mg 3 times a day around the clock for her nausea. I was told by Dr. Cardona that this will not be started, as skilled units are unable to give antipsychotics. 2. I would recommend in additional antiemetic, possibly Reglan to be alternated with Zofran, to help control patient's nausea. 3. I would recommend discontinuing the baclofen and switching back to cyclobenzaprine 10 mg by mouth 3 times a day. 4. I would also recommend the addition of a Lidoderm patch to go on in the morning and off at bedtime, as this was part of the regimen that was working well for her just a couple days ago. 5. I did have some discussion with Mariel the nurse on TCU and also recommend minimizing the amount of IV pain medications that Sofiya is using, but to give liberally especially since her her nausea is not under control at this time. 6. Continue MiraLAX 1 capful scheduled daily and 1 capful daily when necessary. Also continue Colace 1-2 daily for constipation. [facility] will not be available over the weekend, but Palliative Medicine nurse will call Tuesday to assess Sofiya's condition prior to her first radiation treatment at 1320 on 07/07/2020; WELD INSPECTOR will be available to consult by phone or telehealth, and Dr. Duyen Miles will be updated on patient's recent medication and condition changes on 07/09/2020, and will follow-up as deemed appropriate. At the patient's request, I have updated her sister Natalia, who is in understanding and agreement with this plan. Thank you for the opportunity to participate in the care of your patient. Disclaimer: This note was dictated using [employer] software and may contain spelling, grammar, or other motor vehicle emissions inspector errors.
[2020-07-04 17:06] VITALS: BP 123/64; PULSE 81; RESP 16; TEMP 36.8; O2SAT 97
[2020-07-04] MEDS: Senna/Docusate Sodium 1 Tablet 2 TABLET PO (18:08)
[2020-07-04] MEDS: Metoclopramide 10 MG/10 ML UDC PO (18:13)
--- NOTE | 2020-07-04 18:34 | NURSING ---
pt assisted to BSC x2 Standby assist, voided then back to bed. pt unable to use purewick d/t modesty. medicated with scheduled oxycontin, PRN reglan for nausea. pt c/o bloating, LBM x2 days ago. passing gas. sched senokot and miralax given. pt resting in bed, HOB 75 degrees, polar care to lumbar area, pt states helpful. call light in reach.
--- NOTE | 2020-07-04 18:50 | NURSING ---
Duragesic patch intact to right anterior chest.
[2020-07-05] MEDS: Ondansetron 8 MG Tablet PO (02:10)
[2020-07-05] MEDS: oxyCODONE 5 MG Tablet 20 MG PO ×3 (02:10→21:18)
[2020-07-05 06:30] VITALS: BP 130/74; PULSE 98; RESP 18; TEMP 36.4; O2SAT 97
[2020-07-05] MEDS: Lidocaine 5% Patch 1 PATCH TOPICAL (06:35)
[2020-07-05] MEDS: Metoclopramide 10 MG/10 ML UDC PO (06:37)
[2020-07-05] MEDS: Baclofen 10 MG Tablet PO ×3 (06:43→21:21)
[2020-07-05] MEDS: Enoxaparin 40 MG/0.4 ML Syringe SC (06:43)
[2020-07-05] MEDS: Pregabalin 75 MG Capsule PO ×3 (06:43→21:16)
[2020-07-05] MEDS: Acetaminophen 500 MG Tablet 1000 MG PO ×3 (06:44→21:21)
[2020-07-05] MEDS: MethylPREDNISolone DosePak 4 MG BOX PO ×4 (07:53→21:25)
--- NOTE | 2020-07-05 08:59 | EKG12_ITS ---
Test Reason : SOB Blood Pressure : / mmHG Vent. Rate : 083 BPM Atrial Rate : 083 BPM P-R Int : 156 ms QRS Dur : 092 ms QT Int : 376 ms P-R-T Axes : 062 020 023 degrees QTc Int : 441 ms Normal sinus rhythm Normal ECG No previous ECGs available Confirmed by SANJU WALTER, HONEY ([id number]), makeup editor ANTONIETA HOYT ([id number]) on 07/08/2020 12:39:31 PM Referred By: Antoine Nichols Confirmed By:HONEY BILLS MD
[2020-07-05] MEDS: Ondansetron 4 MG/2 ML Vial 8 MG IV ×2 (09:39→18:00)
[2020-07-05] MEDS: Dext 5%-0.45% NS 1,000 ML 75 ML IV ×2 (09:40→21:32)
[2020-07-05] MEDS: Haloperidol 1 MG Tablet PO ×3 (11:07→21:19)
[2020-07-05] MEDS: LORazepam 2 MG/ML Syringe 1 MG IV (11:41)
[2020-07-05 14:03] VITALS: BP 127/75; PULSE 83; RESP 16; TEMP 36.1; O2SAT 94
[2020-07-05] MEDS: Polyethylene Glycol 3350 17 GM PACKET PO (21:21)
--- NOTE | 2020-07-05 22:00 | NURSING ---
Patient Duragesic Patch is Intact on Right chest.
[2020-07-06 06:32] VITALS: BP 154/64; PULSE 85; RESP 16; TEMP 36.7; O2SAT 95
[2020-07-06] MEDS: Enoxaparin 40 MG/0.4 ML Syringe SC (06:34)
[2020-07-06] MEDS: Pregabalin 75 MG Capsule PO ×3 (06:34→21:49)
[2020-07-06] MEDS: Haloperidol 1 MG Tablet PO ×2 (06:35→21:43)
[2020-07-06] MEDS: Acetaminophen 500 MG Tablet 1000 MG PO ×3 (06:35→21:46)
[2020-07-06] MEDS: Baclofen 10 MG Tablet PO ×3 (06:35→21:43)
[2020-07-06] MEDS: Lidocaine 5% Patch 1 PATCH TOPICAL (06:40)
[2020-07-06] MEDS: MethylPREDNISolone DosePak 4 MG BOX PO ×3 (07:47→21:42)
[2020-07-06] MEDS: LORazepam 2 MG/ML Syringe 1 MG IV (08:05)
--- NOTE | 2020-07-06 10:42 | NURSING ---
Pt's Duragesic patch changed today and old patch was wasted with Alba SMALL.
[2020-07-06] MEDS: Dext 5%-0.45% NS 1,000 ML 75 ML IV (10:55)
[2020-07-06 14:54] VITALS: BP 123/66; PULSE 86; RESP 18; TEMP 36.3; O2SAT 95
--- NOTE | 2020-07-06 16:00 | CPS ---
Michael. reviewed H&P, Imaging and labs after RN called saying pt c/o 'feeling like there is tissues in her lungs. RCatherineT. auscultated all lung mccord and did not hear any adventitious sounds, all mccord were clear. SpO2=96% on room air. Joanna talked with RN and suggested a chest x-ray to help assure the patient that nothing is wrong in her lungs, it is possibility that what she is describing could be anxiety.
--- NOTE | 2020-07-06 16:54 | RAD_ITS ---
STUDY: X-RAY CHEST REASON FOR EXAM: Female, 55 years old. Chest discomfort. TECHNIQUE: AP and lateral views of the chest. COMPARISON: 05/09/2017 FINDINGS: Minimal atelectasis in the right lung base. Trace blunting of the bilateral costophrenic angles best seen on lateral view. Normal size heart. Normal mediastinum and new. Normal visualized pulmonary arteries. Normal visualized aortic arch and descending thoracic aorta. There is demineralization of the osseous structures. Normal visualized ribs, clavicles, and shoulders. There is no demonstrated abnormality of the visualized soft tissue structures of the upper abdomen. RAD/Chest PA and Lateral IMPRESSION: 1. No airspace consolidation. Trace pleural effusions. Electronically Signed: Anthony Salguero MD (Brooks) at 17:31 EDT , Service support ,
--- NOTE | 2020-07-06 17:06 | NURSING ---
pt continues to c/o of tissues in her chest , bed side assessment by nurse and respiratory therapist was negative, N.O. Maalox 30 ml Q6 PRN for possible reflux from the pain medications, 2 View CXRAY and cardiac enzymes with Trops. Will update pt and sister, Natalia.
[2020-07-06 18:19] LABS: CPK Total, Creatine Kinase 25 U/L (26-192)
[2020-07-06] MEDS: Mag Hydrox/Al Hydrox/Simeth 30 ML UDC PO (18:35)
[2020-07-06] MEDS: Ondansetron 4 MG/2 ML Vial 8 MG IV (20:05)
--- NOTE | 2020-07-06 21:00 | NURSING ---
Duragesic patch intact to left anterior Chest.
[2020-07-07] MEDS: Dext 5%-0.45% NS 1,000 ML 75 ML IV ×2 (00:27→20:20)
[2020-07-07] MEDS: oxyCODONE 5 MG Tablet 20 MG PO ×3 (00:30→22:42)
[2020-07-07 05:00] VITALS: BP 127/81; PULSE 82; RESP 16; TEMP 36.8; O2SAT 98
[2020-07-07] MEDS: Acetaminophen 500 MG Tablet 1000 MG PO ×3 (06:34→22:42)
[2020-07-07] MEDS: Baclofen 10 MG Tablet PO ×3 (06:34→22:42)
[2020-07-07] MEDS: Pregabalin 75 MG Capsule PO ×3 (06:34→22:42)
[2020-07-07] MEDS: Haloperidol 1 MG Tablet PO ×3 (06:35→22:42)
[2020-07-07] MEDS: Lidocaine 5% Patch 1 PATCH TOPICAL (06:36)
[2020-07-07] MEDS: Enoxaparin 40 MG/0.4 ML Syringe SC (06:37)
--- NOTE | 2020-07-07 07:43 | PCA ---
pt refused offer of a basin with warm water and soap to wash up with, pt said that she would just like to have a facial mirror and a pk of wipes, i looked for the mirror and was unable to locate it brought pt a pk of wipes into her room asked again if she would like to have a basin to thoroughly wash with she stated that she would like to have OT/PT assist her with washing up.
[2020-07-07] MEDS: Ondansetron 4 MG/2 ML Vial 8 MG IV ×2 (09:07→20:01)
[2020-07-07] MEDS: 0.9% Saline Lock 10 ML Syringe IV ×3 (09:07→20:11)
[2020-07-07] MEDS: MethylPREDNISolone DosePak 4 MG BOX PO ×2 (09:35→22:41)
[2020-07-07] MEDS: Senna/Docusate Sodium 1 Tablet 2 TABLET PO ×2 (09:35→22:42)
--- NOTE | 2020-07-07 10:46 | NURSING ---
per therapy pt threw up breakfast. RN aware
--- NOTE | 2020-07-07 12:23 | PCM.PN.PAL ---
Progress Note- Hospice Date: 07/07/20 Subjective: 1055: This BIOMEDICAL ENGINEER place telephone call to Deepa's cell phone to assess her overall condition today and response to medications over the weekend. Her voice sounds very weak and she notes that she is quite fatigued. She tells me that she has just had an emesis after being up to the bathroom. When evaluating her nausea, she does endorse that it may be more related to movement than to PO intake. She has been continuing to require when necessary Zofran, despite scheduled Haldol, which was initiated on July 05. With regard to her pain, Deepa tells me that it is really hard for her to tell if she has had any improvement over the weekend because she just feels so drugged up. She describes her overall pain an 8/10, which is a very slight improvement from when I saw her in consult on July 04. She remains optimistic that starting radiation today will help to alleviate some of her pain, and that she will be able to get off some of these medications. In review of the MR from the weekend, it appears as though she has not had any IV Dilaudid over the weekend, and has only had 5 total oxycodone 20 mg doses administered in the past 48 hours. Deepa continues to note ongoing feelings of frustration, depression, anxiousness, and fear, all of which were validated in emotional support was provided. She does describe a shaky and antsy feeling, that sometimes even wakes her from sleep; I have informed her that this could be related to multiple factors, including medications (methylprednisolone), hypoglycemia from minimal oral intake, and/or anxiety. Palliative Medicine nurse spoke with TCU nurse, who reports that Deepa must not have been asking for her PRN medications much over the weekend, and that is why they have not been administered despite her continuing to have severe pain. Thus, I have encouraged Deepa to request pain medication if she needs it, which is how we will continue to make adjustments and changes to her medication regimen. Deepa does verbalize understanding that she will not be awoken from sleep to be given pain medication, as it is perceived that she is comfortable, or her pain is tolerable, if she is able to sleep. Objective: Vital Signs Temp 98.3 F 07/07/20 05:00 Pulse 82 07/07/20 05:00 Resp 16 07/07/20 05:00 BP 127/81 H 07/07/20 05:00 Pulse Ox 98 07/07/20 05:00 Intake & Output 07/05/20 07/06/20 07/07/20 23:59 23:59 23:59 Intake Total 1130 / 1130 395 / 395 Balance 1130 / 1130 395 / 395 Intake: Oral 240 / 240 460 / 460 Intake, IV Amount 890 / 890 1526.25 / 1526.25 395 / 395 Dext 5%-0.45% NS 1,000 ML @ 75 890 / 890 1526.25 / 1526.25 395 / 395 mls/hr IV .[id number] [facility] Rx#: [id number] Other: Incontinent Amount Moderate Large 07/06/20 17:50 Total Creatine Kinase 25 L Current Medications Acetaminophen (Tylenol) 1,000 mg PO TID [facility] Last Admin: 07/07/20 06:34 Dose: 1,000 mg Documented by: Al Hydroxide/Mg Hydroxide (Mylanta Ii) 30 ml PO Q6H PRN PRN PRN Reason: INDIGESTION Last Admin: 07/06/20 18:35 Dose: 30 ml Documented by: Baclofen (Lioresal) 10 mg PO TID [facility] Last Admin: 07/07/20 06:34 Dose: 10 mg Documented by: Bisacodyl (Dulcolax) 10 mg RECTAL DAILY PRN PRN PRN Reason: Constipation Enoxaparin Sodium (Lovenox) 40 mg SC DAILY [facility] Last Admin: 07/07/20 06:37 Dose: 40 mg Documented by: Fentanyl (Duragesic Patch) 100 mcg TRANSDERM. Q3D [facility] Last Admin: 07/06/20 10:32 Dose: 100 mcg Documented by: Haloperidol (Haldol) 1 mg PO TID [facility] Last Admin: 07/07/20 06:35 Dose: 1 mg Documented by: Hydrocortisone (Hytone) 1 applic TOPICAL 4X/DAY PRN PRN Reason: hemorrhoids Hydromorphone HCl (Dilaudid Inj) 1 mg IV Q3H PRN PRN PRN Reason: Pain Score 6-10/10 Last Admin: 07/04/20 07:52 Dose: 1 mg Documented by: Dextrose/Sodium Chloride () 1,000 mls @ 75 mls/hr IV .[id number] [facility] Last Admin: 07/07/20 00:27 Dose: 75 mls/hr Documented by: Lidocaine (Lidoderm Patch) 1 patch TOPICAL DAILY [facility]; Protocol Last Admin: 07/07/20 06:36 Dose: 1 patch Documented by: Lorazepam (Ativan) 1 mg IV Q6H PRN PRN PRN Reason: ANXIETY Last Admin: 07/06/20 08:05 Dose: 1 mg Documented by: Methylprednisolone (Medrol Dosepak) 4 mg PO 08,2199 [facility]; Taper Stop: 07/08/20 08:59 Last Admin: 07/07/20 09:35 Dose: 4 mg Documented by: Ondansetron HCl (Zofran) 8 mg IV Q6H PRN PRN PRN Reason: NAUSEA Last Admin: 07/07/20 09:07 Dose: 8 mg Documented by: Oxycodone HCl (Oxyir) 20 mg PO Q4H PRN PRN PRN Reason: Pain Score 1-5/10 Last Admin: 07/07/20 00:30 Dose: 20 mg Documented by: Oxycodone HCl (Oxycontin) 20 mg PO BID [facility] Last Admin: 07/07/20 06:34 Dose: 20 mg Documented by: Polyethylene Glycol (Miralax) 17 gm PO [facility] Last Admin: 07/07/20 08:49 Dose: Not Given Documented by: Pregabalin (Lyrica) 75 mg PO TID [facility] Last Admin: 07/07/20 06:34 Dose: 75 mg Documented by: Senna/Docusate Sodium (Senokot-S, Veronique-Colace) 2 tablet PO 799,1999 [facility] Last Admin: 07/07/20 09:35 Dose: 1 tablet Documented by: Sodium Chloride () 10 - 40 ml IV UD PRN PRN Reason: SALINE FLUSH Last Admin: 07/07/20 09:07 Dose: 20 ml Documented by: Tuberculin PPD (Tubersol, Aplisol, Ppd) 5 tu ID [id number] ONE Stop: 07/11/20 10:01 Assessment/Plan All Active Problems (Last Reviewed 06/29/20 @ 03:[address] Allan Yost MD) Acute back pain (Acute) Thoracic vertebral fracture (Acute) Acute renal injury (Acute) Uncontrolled pain (Acute) Debility (Acute) Intractable back pain (Acute) ASSESSMENT AND PLAN: Given the patient's ongoing complaints of nausea and severe pain I would recommend the following changes be made to her medications and treatment plan. 1. Intractable nausea - I would recommend adding meclizine 12.5 mg by mouth every 6 hours PRN for nausea and vomiting, to be used as the first PRN medication and alternated with Zofran to help manage her nausea. Additionally, I would continue Haldol 1 mg by mouth TID routinely. She does have Ativan 1 mg IV every 6 hours PRN ordered for anxiety, which could be given for nausea if needed as well. 2. Intractable pain - I do continue to recommend discontinuing the baclofen and changing to cyclobenzaprine 10 mg by mouth 3 times a day, as this was part of an effective regimen for her prior to TCU admission. I recommend increasing the OxyContin (oxycodone ER) to 30 mg twice a day, continue with oxycodone IR 20 mg by mouth every 4 PRN breakthrough pain, continue Lyrica 75 mg 3 times a day, and continue fentanyl patch 100 mcg transdermal every 72 hours. With the increase of the OxyContin, I would evaluate to decrease the amount of fentanyl she is on in the next 1-2 days. I recommend discontinuing the Lidoderm patch, as it does not seem to be having any positive effect on her pain. I recommend continuing the Dilaudid 1 mg IV every 3 hours PRN for breakthrough pain and as premedication for prior to radiation. 3. Constipation, opioid-induced - continue scheduled Colace, MiraLAX when necessary, and Dulcolax when necessary. [facility] will continue to make daily telephone calls to patient and TCU staff to assist in pain and nausea management. At the patient's request, I will update her sister Natalia. Thank you for the ongoing opportunity to participate in the care of our shared patient. Disclaimer: This note was dictated using [employer] software and may contain spelling, grammar, or other mold cleaner errors.
[2020-07-07] MEDS: HYDROmorphone 1 MG/ML Syringe IV ×2 (12:29→20:08)
--- NOTE | 2020-07-07 12:40 | PCA ---
Nurses fast food assistant restaurant manager Kaylee Ovalles and I were toileting pt, getting ready for radiation treatment. We offered to take her down in the wheelchair, as we thought it would be less painful of a transfer. Pt. was not sure about this request and told us to ask the nurse if we should transport in bed or wheelchair. Nurse Shyla Matias informed the pt. and nurses assistants the wheelchair would be acceptable. Pt declined stating she was in pain, did not want to transfer down at radiology. Kaylee Ovalles and Gail transferred the pt in bed per pts request. Pts sister met us down at radiology and seen the pt being transported by bed.
--- NOTE | 2020-07-07 13:26 | NURSING ---
pt left floor for appointment at 12:40 by bed.
--- NOTE | 2020-07-07 14:29 | NURSING ---
pt returned from appointment at 1420.
[2020-07-07 15:14] VITALS: BP 149/92; PULSE 93; RESP 16; TEMP 36.8; O2SAT 96
--- NOTE | 2020-07-07 19:28 | NURSING ---
TALKED TO PT SISTER WALLACE. WALLACE WANTS TO CALL HER FIRST BEFORE HE TALKS TO THE PT. SISTER FEELS PT MIGHT NOT UNDER STAND WHAT HE IS SAYING OR WILL BE TO UPSET AND WANTS TO SOME HOW BE THERE OR BY PHONE WHEN HE TALKS TO PT. REPORTED TO RN.
[2020-07-07 19:36] VITALS: PULSE 88; RESP 14; O2SAT 98
--- NOTE | 2020-07-07 20:01 | NURSING ---
Patient had large emesis at this time. RN aware and gave IV Zofran.
[2020-07-07] MEDS: Bisacodyl 10 MG Suppository RECTAL (20:19)
--- NOTE | 2020-07-07 20:49 | NURSING ---
Addendum entered by Lawanda Martinez 07/08/20 07:25: Dr. Nichols in to see patient. Doctor advised that patients sister would like him to call prior to going into room. Doctor went into room, Deepa called sister, Natalia. Dr. Nichols gave an update to both. He will be leaving new orders for patient to try to control patients pain. Addendum entered by Lawanda Martinez 07/08/20 06:41: Patient continues to refuse enema. RN Aware. Note left for Dr. Cardona. Addendum entered by Lawanda Martinez 07/08/20 03:49: Duragesic patch intact to left anterior Chest. Addendum entered by Lawandamegan Martinez 07/07/20 22:50: Patient took HS medications at time with milk. Patient refused Miralax d/t still feeling nauseated. Continues to refuse Enema. Polar care placed on lower back area. Patient in position of comfort. Addendum entered by Lawanda Martinez 07/07/20 22:09: Patient refusing PM care at this time. Patient refusing to complete enema. Patient did have large BM after suppository. Abdomen still distended and firm. Will continue to try to administer Enema per order. Original Note: Patient pain is increasing at this time. Patient crying out. 1:1 care given to get patient comfortable. Brooke SMALL aware and updating Dr. Cardona.
--- NOTE | 2020-07-07 20:50 | NURSING ---
Patient c/o pain in back rating it 10/10. Patient given 1mg Dilaudid IV at 2007. Patient states that it had helped for a short time and that her pain is right back up there at 10/10. Patient also c/o of feeling full and bloated. Patient's last BM 07/03. Patient has been refusing her stool softeners. Patient had emesis this evening. States that she cannot keep anything down. Bowel sounds present, abdomen distended. Dr. Cardona notified of this orders given for 200g Lactulose enema x 1 for constipation and 2mg Dilaudid IV x 1 for patient's increased pain.
[2020-07-07] MEDS: HYDROmorphone 1 MG/ML Syringe 2 MG IV (21:23)
--- NOTE | 2020-07-07 21:23 | NURSING ---
In to give patient ordered 2mg IV Dilaudid. Patient continues to rate her pain a 10/10. First 1 mg of Dilaudid given. Patient states that she does not want 2 mg of Dilaudid, she only wants 1 mg of Dilaudid because it is a lot. 1 mg of Dilaudid given at this time instead of 2 mg ordered Dilaudid per patient request.
[2020-07-08 05:04] VITALS: BP 142/70; PULSE 105; RESP 16; TEMP 36.6; O2SAT 98
[2020-07-08] MEDS: Lidocaine 5% Patch 1 PATCH TOPICAL (05:11)
[2020-07-08] MEDS: Acetaminophen 500 MG Tablet 1000 MG PO ×2 (05:11→21:17)
[2020-07-08] MEDS: Haloperidol 1 MG Tablet PO ×2 (05:12→21:09)
[2020-07-08] MEDS: Pregabalin 75 MG Capsule PO ×2 (05:12→21:21)
[2020-07-08] MEDS: Baclofen 10 MG Tablet PO ×2 (05:12→21:15)
[2020-07-08] MEDS: Enoxaparin 40 MG/0.4 ML Syringe SC (05:14)
--- NOTE | 2020-07-08 07:25 | PCM.PN.BLA ---
Progress Note Oncology consultation note: 55-year-old lady with delusionally diagnosed multiple myeloma, IgA kappa light chain, resenting with multiple compression fracture at T11, L5 and sacral insufficiency fractures. She was admitted last week for evaluation and pain management. Her symptom was somewhat controlled with high-dose dexamethasone, IV Dilaudid and fentanyl along with Lyrica and Tylenol. She started radiation therapy yesterday. Still has severe lower back and pelvic pain, with radicular component. Since she started oxycodone this weekend, she has increased nausea as well as constipation. Zofran could be contributing to constipation and Haldol was added for nausea. Had a bowel movement yesterday and this morning. Pain is currently 8/10. She started Dilaudid IV yesterday for pain. Assessment/Plan: 1) Intractable pain secondary to multiple myeloma and multiple compression fractures on palliative radiation therapy -Start dexamethasone 20mg twice daily x 4 days -Pepcid 20mg twice daily -Stop oxycodone; use Dilaudid IV 1 -2 mg every 3 hours as needed -Acetaminophen 1000mg every 8 hours -Continue Lyrica 75mg 3 times daily -Continue fentanyl 100mcg/hr -Add Cymbalta 60mg once daily 2) nausea and constipation secondary to oxycodone & morphine? -Stop oxycodone & substitute with Dilaudid -Continue Haldol 3 times daily -Consider stopping Zofran as of constipation and Phenergan as needed -Continue stool softener and laxative as needed for constipation. I will discussed with patient and her family regarding management of multiple myeloma after she is discharged home. STROKE Vital Signs/Narrative: Vital Signs Temp Pulse Resp BP Pulse Ox 07/08/20 05:04 97.9 F 105 H 16 142/70 H 98
--- NOTE | 2020-07-08 07:40 | PCA ---
I went in this morning when she had to go to the bathroom. I asked her if she wanted to get washed up while she was on the bedside & she said she was not getting washed up.
[2020-07-08] MEDS: Senna/Docusate Sodium 1 Tablet 2 TABLET PO ×2 (09:14→21:06)
[2020-07-08 09:30] VITALS: PULSE 82; RESP 18; O2SAT 96
--- NOTE | 2020-07-08 09:35 | NURSING ---
pt refused mirlax. pt did wash face and brushed teeth.
[2020-07-08] MEDS: Meclizine 12.5 MG Tablet PO ×2 (09:50→21:13)
[2020-07-08] MEDS: dexAMETHasone 4 MG Tablet 20 MG PO ×2 (10:02→18:26)
[2020-07-08] MEDS: HYDROmorphone 1 MG/ML Syringe 2 MG IV ×3 (10:45→22:21)
--- NOTE | 2020-07-08 11:04 | NURSING ---
pt refused KUB due to pain. pain medicine was given before taking pt down by bed. reported to rn.
--- NOTE | 2020-07-08 11:12 | NURSING ---
DR. MCGILL WAS IN TO SEE PT THIS MORNING AND ALSO TALKED TO SISTER ON PHONE WHILE IN PT ROOM. NEW ORDERS WAS PUT IN. RN AWARE.
--- NOTE | 2020-07-08 11:45 | RAD_ITS ---
STUDY: X-RAY - ABDOMEN/PELVIS REASON FOR EXAM: Female, 55 years old. Nausea, constipation, patient has multiple myeloma, Hx kyphoplasty TECHNIQUE: Single AP view of the abdomen / pelvis. COMPARISON: None. FINDINGS: There is an abundance of fecal material throughout the colon. The visualized liver, spleen and kidneys are grossly normal in size and morphology. Normal soft tissue structures. Osteopenia. Prior vertebroplasty of the L5 vertebrae. RAD/Abdomen Single View IMPRESSION: Large amount of fecal material seen in the colon. Electronically Signed: Grady Carcamo, at 12:31 EDT , Service support ,
--- NOTE | 2020-07-08 13:21 | NURSING ---
PT BACK TO FLOOR AFTER RADIATION TREATMENT AND KUB AT 12:15.
--- NOTE | 2020-07-08 13:24 | NURSING ---
PT ASKED FOR THIS NURSE TO ROOM. PT STATED SHE WAS FEELING REALLY TIRED AND MIND FOGGY. PT FACE FLUSHED. VITALS DONE. RN AWARE.
[2020-07-08 13:32] VITALS: BP 159/79; PULSE 73; RESP 16; TEMP 36.3; O2SAT 93
[2020-07-08] MEDS: Lactulose 20 GM/30 ML UDC PO (14:26)
[2020-07-08] MEDS: Dext 5%-0.45% NS 1,000 ML 75 ML IV (14:26)
--- NOTE | 2020-07-08 15:03 | NURSING ---
PT THROWING UP YELLOWISH LIQUID. RN AWARE.
[2020-07-08] MEDS: proMETHazine 25 MG/ML Syringe IV ×2 (15:47→22:21)
[2020-07-08] MEDS: Famotidine 20 MG Tablet PO (18:25)
--- NOTE | 2020-07-08 18:28 | NURSING ---
helped pt to bed side commode and back to bed. pt tolerated fairly.
[2020-07-08] MEDS: Polyethylene Glycol 3350 17 GM PACKET PO (21:07)
[2020-07-08] MEDS: 0.9% Saline Lock 10 ML Syringe IV (22:29)
[2020-07-09] MEDS: fentaNYL 25 MCG Patch TRANSDERM. (00:43)
--- NOTE | 2020-07-09 00:48 | NURSING ---
REMOVED DURAGESIC FROM LT CHEST AND WASTED WITH RN. APPLIED 100 MCG AND 25 MCG DURAGESICS TO RT CHEST. PT RESTING IN BED WITH CALL LIGHT IN REACH, NO C/O OF PAIN AT THIS TIME.
[2020-07-09] MEDS: Dext 5%-0.45% NS 1,000 ML 75 ML IV (03:35)
[2020-07-09 05:00] VITALS: BP 120/70; PULSE 74; RESP 18; TEMP 36.6; O2SAT 96
[2020-07-09] MEDS: DULoxetine Hcl 60 MG Capsule PO (06:23)
[2020-07-09] MEDS: Enoxaparin 40 MG/0.4 ML Syringe SC (06:23)
[2020-07-09] MEDS: Baclofen 10 MG Tablet PO ×3 (06:23→21:48)
[2020-07-09] MEDS: Famotidine 20 MG Tablet PO ×2 (06:23→16:42)
[2020-07-09] MEDS: Lactulose 20 GM/30 ML UDC PO ×3 (06:23→21:44)
[2020-07-09] MEDS: Lidocaine 5% Patch 1 PATCH TOPICAL (06:24)
[2020-07-09] MEDS: Haloperidol 1 MG Tablet PO ×3 (06:24→21:45)
[2020-07-09] MEDS: 0.9% Saline Lock 10 ML Syringe IV ×5 (06:25→22:05)
[2020-07-09] MEDS: HYDROmorphone 1 MG/ML Syringe 2 MG IV (06:25)
[2020-07-09] MEDS: Acetaminophen 500 MG Tablet 1000 MG PO ×3 (06:25→21:46)
[2020-07-09] MEDS: proMETHazine 25 MG/ML Syringe IV (06:25)
[2020-07-09] MEDS: Pregabalin 75 MG Capsule PO ×3 (06:28→22:01)
--- NOTE | 2020-07-09 06:55 | NURSING ---
lidocane patch applied to low back.
[2020-07-09] MEDS: dexAMETHasone 4 MG Tablet 20 MG PO ×2 (07:37→16:42)
[2020-07-09] MEDS: Senna/Docusate Sodium 1 Tablet 2 TABLET PO ×2 (07:38→21:44)
[2020-07-09] MEDS: Polyethylene Glycol 3350 17 GM PACKET PO ×2 (07:42→21:44)
--- NOTE | 2020-07-09 08:00 | NURSING ---
security shift manager reported that pt requesting dilaudid be decreased to 1 mg, pt feels too drugged. Dr leslie changed order per pt request.
--- NOTE | 2020-07-09 09:01 | NURSING ---
Pt requested her D5W 1/2NS was stopped at this time d/t having radiation at 1pm stating it makes her have to void during radiation and can not tolerate it. D5W 1/2 NS stopped per request and reported to Charge Nurse
--- NOTE | 2020-07-09 09:21 | CASEMGMT ---
BIMS and PHQ9 interviews completed on this date for MDS assessment. RYAN Elliott
[2020-07-09] MEDS: HYDROmorphone 1 MG/ML Syringe IV ×4 (09:26→22:03)
--- NOTE | 2020-07-09 09:54 | PCA ---
i went into patients room around 9am to see if she wanted to get washed up before her radiation treatment today, pt refused to have a basin with water and wash up but washed her face with a warm wet washcloth, i offered pt her toothbrush an toothpaste which she did preform oral care on self.
--- NOTE | 2020-07-09 10:52 | CASEMGMT ---
Social Work IDT met with patient and sister via conference call for care plan meeting. Discussed patient's progress in therapy. Pt's levels varies due to pain and nausea. Pt's bed mobility is between SBA and modA, once out of bed pt is CGA for tx and ambulating with FWW limited distances. Pt is sup/set up for UE bathing, Mary for UE dressing, CGA for tx, maxA for clothing and pericare. Pt's pain is 10/10 which limits pt's mobility and unable to participate. Therapy is not currently benefiting pt and is putting services on hold until radiation treatments are completed. Pt appreciative. Explained SW to request insurance skill pt for nursing needs due to IVs, pain and radiation treatments. Discussed alternative options if insurance does approve at NRD 07/09. Sister concerned about pt transferring to another SNF because she will need to be transported daily to [facility] for radiation treatments. That is a major barrier for placement and SNFs typically are not able to accommodate daily transportation. Pt is unable to return home due to steps to enter home and being alone. Pt requires continuous nursing care due to medical needs currently. Palliative and Dr. Cardona continue to collaborate for pt's care and pain needs. SW to continue to follow. Sarah Lynn, JIL BARBERW
[2020-07-09 15:14] VITALS: BP 130/82; PULSE 104; RESP 16; TEMP 36.8; O2SAT 94
[2020-07-09 22:05] VITALS: PULSE 86; RESP 16; O2SAT 97
--- NOTE | 2020-07-10 00:13 | NURSING ---
Duragesic patches on right chest
[2020-07-10] MEDS: HYDROmorphone 1 MG/ML Syringe IV ×2 (01:17→04:54)
[2020-07-10] MEDS: 0.9% Saline Lock 10 ML Syringe IV ×5 (01:18→20:29)
[2020-07-10] MEDS: Famotidine 20 MG Tablet PO ×2 (04:55→17:11)
[2020-07-10] MEDS: DULoxetine Hcl 60 MG Capsule PO (04:55)
[2020-07-10] MEDS: Baclofen 10 MG Tablet PO ×3 (04:55→20:29)
[2020-07-10] MEDS: Acetaminophen 500 MG Tablet 1000 MG PO ×3 (04:55→20:29)
[2020-07-10] MEDS: Haloperidol 1 MG Tablet PO ×2 (04:56→17:12)
[2020-07-10] MEDS: Lactulose 20 GM/30 ML UDC PO ×2 (04:58→20:29)
[2020-07-10 05:00] VITALS: BP 136/71; PULSE 97; RESP 16; TEMP 36.7; O2SAT 96
[2020-07-10] MEDS: Pregabalin 75 MG Capsule PO ×2 (05:01→17:13)
[2020-07-10] MEDS: Enoxaparin 40 MG/0.4 ML Syringe SC (05:02)
[2020-07-10] MEDS: Lidocaine 5% Patch 1 PATCH TOPICAL (05:04)
[2020-07-10] MEDS: dexAMETHasone 4 MG Tablet 20 MG PO ×2 (09:04→17:12)
[2020-07-10] MEDS: Senna/Docusate Sodium 1 Tablet 2 TABLET PO ×2 (09:04→20:30)
[2020-07-10 09:20] VITALS: PULSE 105; RESP 18; O2SAT 97
[2020-07-10] MEDS: HYDROmorphone 2 MG TABLET PO ×3 (11:14→20:41)
--- NOTE | 2020-07-10 11:47 | CHAPLAIN ---
Type of Pastoral Visit ___ Initial Visit _x__ Follow-up Visit ___ On-call Visit ___ General Patient Visit ___ Spiritual Assessment ___ Family Conference ___ Bereavement ___ Rapid Response ___ Code Blue ___ Other (describe below) Pastoral Care Referral From _x__ Patient ___ Family ___ Nurse ___ Physician ___ Chartered Financial Analyst ___ Bods Developer ___ Other (describe below) Sacrament/Intervention _x__ Active listening ___ Anointing ___ Alevism ___ Bereavement ___ Communion _x__ Sweta exploration ___ ___ Life review _x__ Prayer ___ Reconciliation ___ Sacrament of Sick _x__ Supportive presence ___ Wedding ___ Other (describe below) Pastoral Comments this visit conducted late afternoon of 07/09/2020 and charted on this day 07/10/2020; pt requested spiritual care support; pt is alert and smiles much during visit which is different from the first visit; pt can move around in bed which is different from first visit; pt states this is a good day; pt admits her concern is that I'll have a bad day tomorrow since that has been the routine over last weeks; pt has many chavarria and gifts and continues to receive items showing support; pt has strong congregation and friend connection with many expressions of prayer support; this knifer up gave pt a couple of written scriptures for her to read for ongoing encouragement; prayer requested and given; future visits welcomed
[2020-07-10] MEDS: LORazepam 2 MG/ML Syringe 1 MG IV (12:29)
[2020-07-10] MEDS: Meclizine 12.5 MG Tablet PO (12:29)
[2020-07-10 14:28] VITALS: BP 128/74; PULSE 95; RESP 14; TEMP 36.1; O2SAT 97
--- NOTE | 2020-07-10 14:31 | PCM.PN.PAL ---
Progress Note- Hospice Date: 07/09/20 Subjective: Deepa is a 55-year-old female who was admitted to [facility] on June 27, 2020, and has subsequently been diagnosed with multiple myeloma. She is seen in [facility]'s transitional care unit today, where her pain is much improved for the first time since being discharged from medical surgical unit; her nausea is also much better today and she is been able to eat 2 small meals. Deepa's attitude is much more positive today and she is noted to be smiling and future oriented and conversation. She has been able to tolerate radiation yesterday and today, but with significant discomfort. She notes her pain to be a 7/10, has significant lumbar tenderness on exam, but is able to help in repositioning herself in the bed for comfort. Her scheduled OxyContin and oxycodone have been discontinued, as they were the suspected cause of her ongoing nausea and vomiting, which has also improved today. Current medications: Baclofen 10 mg by mouth 3 times a day Lidocaine 1 patch topical daily, on in the a.m., off in the p.m. Fentanyl patch 25 mcg +100 mcg transdermal every 3 days Duloxetine 60 mg by mouth daily Hydromorphone 1 mg IV every 3 hours when necessary Lyrica 75 mg by mouth 3 times a day Dexamethasone 20 mg by mouth twice a day Lorazepam 1 mg IV every 6 hours when necessary Haloperidol 1 mg by mouth 3 times a day Famotidine 20 mg by mouth twice a day Meclizine 12.5 mg by mouth 4 times a day when necessary Promethazine 25 mg IV every 6 hours when necessary Objective: Vital Signs Temp 96.9 F L 07/10/20 14:28 Pulse 95 07/10/20 14:28 Resp 14 07/10/20 14:28 BP 128/74 H 07/10/20 14:28 Pulse Ox 97 07/10/20 14:28 Intake & Output 07/08/20 07/09/20 07/10/20 23:59 23:59 23:59 Intake Total 1467.5 / 1467.5 1751.25 / 1751.25 420 / 420 Output Total 500 / 500 Balance 967.5 / 967.5 1751.25 / 1751.25 420 / 420 Weight: 198 lb 1 oz 198 lb 1 oz Intake: Oral 480 / 480 360 / 360 420 / 420 Intake, IV Amount 987.5 / 987.5 1391.25 / 1391.25 Dext 5%-0.45% NS 1,000 ML @ 75 987.5 / 987.5 1391.25 / 1391.25 mls/hr IV .[id number] [facility] Rx#: [id number] Output: Urine 500 / 500 Other: Number of Bowel Movements 1 1 Current Medications Acetaminophen (Tylenol) 1,000 mg PO TID [facility] Last Admin: 07/10/20 14:23 Dose: 1,000 mg Documented by: Al Hydroxide/Mg Hydroxide (Mylanta Ii) 30 ml PO Q6H PRN PRN PRN Reason: INDIGESTION Last Admin: 07/06/20 18:35 Dose: 30 ml Documented by: Baclofen (Lioresal) 10 mg PO TID [facility] Last Admin: 07/10/20 14:22 Dose: 10 mg Documented by: Bisacodyl (Dulcolax) 10 mg RECTAL DAILY PRN PRN PRN Reason: Constipation Last Admin: 07/07/20 20:19 Dose: 10 mg Documented by: [facility]: 07/12/20 08:01 Last Admin: 07/10/20 09:04 Dose: 20 mg Documented by: Duloxetine HCl (Cymbalta) 60 mg PO DAILY [facility] Last Admin: 07/10/20 04:55 Dose: 60 mg Documented by: Enoxaparin Sodium (Lovenox) 40 mg SC DAILY [facility] Last Admin: 07/10/20 05:02 Dose: 40 mg Documented by: Famotidine (Pepcid) 20 mg PO BID [facility] Last Admin: 07/10/20 04:55 Dose: 20 mg Documented by: Fentanyl (Duragesic Patch) 25 mcg TRANSDERM. Q3D [facility] Last Admin: 07/09/20 00:43 Dose: 25 mcg Documented by: Fentanyl (Duragesic Patch) 100 mcg TRANSDERM. Q3D [facility] Last Admin: 07/09/20 00:44 Dose: 100 mcg Documented by: Haloperidol (Haldol) 1 mg PO BID [facility] Hydrocortisone (Hytone) 1 applic TOPICAL 4X/DAY PRN PRN Reason: hemorrhoids Hydromorphone HCl (Dilaudid Tablet) 2 mg PO Q3H PRN PRN PRN Reason: Pain Score 6-10/10 Last Admin: 07/10/20 14:26 Dose: 2 mg Documented by: Lactulose (Chronulac, Cephulac) 20 gm PO TID [facility] Last Admin: 07/10/20 04:58 Dose: 20 gm Documented by: Lidocaine (Lidoderm Patch) 1 patch TOPICAL DAILY [facility]; Protocol Last Admin: 07/10/20 05:04 Dose: 1 patch Documented by: Lorazepam (Ativan) 1 mg IV Q6H PRN PRN PRN Reason: ANXIETY Last Admin: 07/10/20 12:29 Dose: 1 mg Documented by: Meclizine HCl (Antivert) 12.5 mg PO 4X/DAY PRN PRN PRN Reason: nausea Last Admin: 07/10/20 12:29 Dose: 12.5 mg Documented by: Polyethylene Glycol (Miralax) 17 gm PO 799,1999 [facility] Last Admin: 07/10/20 09:03 Dose: Not Given Documented by: Pregabalin (Lyrica) 75 mg PO BID [facility] Promethazine HCl (Phenergan) 25 mg IV Q6H PRN PRN PRN Reason: NAUSEA/VOMITING Last Admin: 07/09/20 06:25 Dose: 25 mg Documented by: Senna/Docusate Sodium (Senokot-S, Veronique-Colace) 2 tablet PO 799,1999 [facility] Last Admin: 07/10/20 09:04 Dose: 2 tablet Documented by: Sodium Chloride () 10 - 40 ml IV UD PRN PRN Reason: SALINE FLUSH Last Admin: 07/10/20 12:29 Dose: 10 ml Documented by: Tuberculin PPD (Tubersol, Aplisol, Ppd) 5 tu ID [id number] Stop: 07/11/20 10:01 - Physical Exam General: Alert, Oriented x3, Cooperative, Well developed, Well nourished, - - moderate acute distress - pain HEENT: Atraumatic, PERRLA, EOMI, Normocephalic Oral: Moist Mucosa, No Gingival or Mucosal Lesions/ Ulcerations Lungs: Clear to auscultation, Normal air movement Cardiovascular: Regular rate, Regular Rhythm, Normal S1, Normal S2 Abdomen: Bowel Sounds Present, Soft, Non Tender, Non-Distended Extremities: No edema Skin: No rashes, No breakdown Musculoskeletal: Tenderness - lumbar tenderness Psych/Mental Status: Normal Affect, Appropriate, Alert and oriented to time, place, person, mood and affect Assessment/Plan All Active Problems (Last Reviewed 06/29/20 @ 03:[address] Allan Yost MD) Acute back pain (Acute) Thoracic vertebral fracture (Acute) Acute renal injury (Acute) Uncontrolled pain (Acute) Debility (Acute) Intractable back pain (Acute)
--- NOTE | 2020-07-10 19:28 | NURSING ---
Duragesic patch verified to pt right chest.
[2020-07-10] MEDS: Polyethylene Glycol 3350 17 GM PACKET PO (20:29)
[2020-07-11 05:00] VITALS: BP 133/80; PULSE 70; RESP 16; TEMP 36.9; O2SAT 95
[2020-07-11 05:44] LABS: Absolute Lymphocyte Count 0.24 X10^3/uL (0.83-4.51); Absolute Neutrophil Count 7.9 X10^3/uL (2.0-7.7); Basophil# 0.01 X10^3/uL; Basophil% 0.1 % (0-1); Hematocrit 30.8 % (37-47); Hemoglobin 9.8 g/dL (12.0-15.0); Lymphocyte # 0.24 X10^3/ul (4.0); Lymphocyte % 2.8 % (19-41); Mean Corp Hgb Conc 31.8 g/dL (32-36); Mean Corpuscular Hgb 30.4 pg (27.0-32.0); Mean Corpuscular Volume 95.7 fL (81-99); Mean Platelet Vol. 9.6 fl (6.2-12.0); Monocyte# 0.46 X10^3/uL; Monocyte% 5.3 % (0-10); NRBC Flagged by Analyzer 0 % (0-5); Neutrophil % 90.9 % (47-70); POSITIVE DIFFERENTIAL YES; Platelet Count 219 K/mm3 (150-450); RBC Distribution Width CV 12.5 % (11.6-14.6); RBC Distribution Width SD 42.8 fl (35.1-43.9); Red Blood Count 3.22 M/mm3 (4.2-5.4); White Blood Count 8.7 K/mm3 (4.4-11.0)
[2020-07-11] MEDS: Meclizine 12.5 MG Tablet PO ×2 (05:48→12:14)
[2020-07-11] MEDS: Pregabalin 75 MG Capsule PO ×2 (05:48→17:04)
[2020-07-11 05:49] LABS: Differential Indicated SCAN CRITERIA MET
[2020-07-11] MEDS: Lidocaine 5% Patch 1 PATCH TOPICAL (05:49)
[2020-07-11] MEDS: Enoxaparin 40 MG/0.4 ML Syringe SC (05:49)
[2020-07-11] MEDS: Baclofen 10 MG Tablet PO ×3 (05:50→21:03)
[2020-07-11] MEDS: Acetaminophen 500 MG Tablet 1000 MG PO ×3 (05:50→21:03)
[2020-07-11] MEDS: Famotidine 20 MG Tablet PO ×2 (05:50→17:09)
[2020-07-11] MEDS: DULoxetine Hcl 60 MG Capsule PO (05:50)
[2020-07-11] MEDS: Haloperidol 1 MG Tablet PO ×3 (05:51→21:01)
[2020-07-11] MEDS: Lactulose 20 GM/30 ML UDC PO (05:51)
[2020-07-11 06:02] LABS: Anion Gap 4 (5-15); BUN 23 mg/dL (7-18); BUN/Creat Ratio 31.1 RATIO (10-20); Chloride 106 mmol/L (98-107); Creatinine, Serum 0.74 mg/dL (0.55-1.02); EST Glomerular Filtration Rate 86 mL/min (>60); Est Glom Filt Rate - Afr Amer 105 mL/min (>60); Estimated Creatinine Clearance 76.39 ml/min; Glucose 107 mg/dL (74-106); Potassium 4.5 mmol/L (3.5-5.1); Sodium Level 140 mmol/L (136-145)
--- NOTE | 2020-07-11 06:07 | NURSING ---
Duragesic patches verified on right chest
[2020-07-11 06:28] LABS: Differential Comment SCANNED
[2020-07-11] MEDS: dexAMETHasone 4 MG Tablet 20 MG PO ×2 (07:54→17:09)
[2020-07-11] MEDS: Senna/Docusate Sodium 1 Tablet 2 TABLET PO ×2 (07:55→21:00)
[2020-07-11] MEDS: Polyethylene Glycol 3350 17 GM PACKET PO (07:55)
[2020-07-11] MEDS: HYDROmorphone 2 MG TABLET PO ×3 (08:57→21:12)
[2020-07-11] MEDS: Tuberculin,Purif.prot.deriv. 50 TU/ML Vial 5 ML ID (10:36)
--- NOTE | 2020-07-11 11:11 | PN.PALL_ITS ---
Progress Note- Hospice Date: 07/11/20 Subjective: Deepa is seen today in her bed in [facility]'s TCU, where she continues to have intractable pain related to her new multiple myeloma diagnosis. She notes that her pain this morning upon waking was 10/10, but is now 2/10 while lying in bed. She describes her pain as crushing in her low back, hips, and pelvis. The pain in much worse with movement. Polar Care does help overnight. The Dilaudid is moderately effective when given. She notes that she had a single episode of bowel incontinence due to lack of sensation 2 days ago, but does notes that her stools are quite loose. She maintains bladder continence. Her nausea seems dependent upon her pain levels, but has generally been well-controlled over the past 2 days. Objective: Vital Signs Temp 98.4 F 07/11/20 05:00 Pulse 70 07/11/20 05:00 Resp 16 07/11/20 05:00 BP 133/80 H 07/11/20 05:00 Pulse Ox 95 07/11/20 05:00 Intake & Output 07/09/20 07/10/20 07/11/20 23:59 23:59 23:59 Intake Total 1751.25 / 1751.25 420 / 420 120 / 120 Balance 1751.25 / 1751.25 420 / 420 120 / 120 Weight: 198 lb 1 oz Intake: Oral 360 / 360 420 / 420 120 / 120 Intake, IV Amount 1391.25 / 1391.25 0 / 0 Dext 5%-0.45% NS 1,000 ML @ 75 1391.25 / 1391.25 0 / 0 mls/hr IV .[id number] [facility] Rx#: [id number] Other: Number of Bowel Movements 1 07/11/20 07/11/20 05:10 05:10 RBC 3.22 L Hgb 9.8 L Hct 30.8 L MCHC 31.8 L Neut % (Auto) 90.9 H Lymph % (Auto) 2.8 L Absolute Neuts (auto) 7.9 H Absolute Lymphs (auto) 0.24 L Anion Gap 4 L BUN 23 H BUN/Creatinine Ratio 31.1 H Glucose 107 H Current Medications Acetaminophen (Tylenol) 1,000 mg PO TID [facility] Last Admin: 07/11/20 05:50 Dose: 1,000 mg Documented by: Al Hydroxide/Mg Hydroxide (Mylanta Ii) 30 ml PO Q6H PRN PRN PRN Reason: INDIGESTION Last Admin: 07/06/20 18:35 Dose: 30 ml Documented by: Baclofen (Lioresal) 10 mg PO TID [facility] Last Admin: 07/11/20 05:50 Dose: 10 mg Documented by: Bisacodyl (Dulcolax) 10 mg RECTAL DAILY PRN PRN PRN Reason: Constipation Last Admin: 07/07/20 20:19 Dose: 10 mg Documented by: [facility] Stop: 07/12/20 08:01 Last Admin: 07/11/20 07:54 Dose: 20 mg Documented by: Duloxetine HCl (Cymbalta) 60 mg PO DAILY [facility] Last Admin: 07/11/20 05:50 Dose: 60 mg Documented by: Enoxaparin Sodium (Lovenox) 40 mg SC DAILY [facility] Last Admin: 07/11/20 05:49 Dose: 40 mg Documented by: Famotidine (Pepcid) 20 mg PO BID [facility] Last Admin: 07/11/20 05:50 Dose: 20 mg Documented by: Fentanyl (Duragesic Patch) 25 mcg TRANSDERM. Q3D [facility] Last Admin: 07/09/20 00:43 Dose: 25 mcg Documented by: Fentanyl (Duragesic Patch) 100 mcg TRANSDERM. Q3D [facility] Last Admin: 07/09/20 00:44 Dose: 100 mcg Documented by: Haloperidol (Haldol) 1 mg PO BID [facility] Last Admin: 07/11/20 05:51 Dose: 1 mg Documented by: Hydrocortisone (Hytone) 1 applic TOPICAL 4X/DAY PRN PRN Reason: hemorrhoids Hydromorphone HCl (Dilaudid Tablet) 2 mg PO Q3H PRN PRN PRN Reason: Pain Score 6-10/10 Last Admin: 07/11/20 08:57 Dose: 2 mg Documented by: Lorazepam (Ativan) 1 mg IV Q6H PRN PRN PRN Reason: ANXIETY Last Admin: 07/10/20 12:29 Dose: 1 mg Documented by: Meclizine HCl (Antivert) 12.5 mg PO 4X/DAY PRN PRN PRN Reason: nausea Last Admin: 07/11/20 05:48 Dose: 12.5 mg Documented by: Polyethylene Glycol (Miralax) 17 gm PO [facility] Last Admin: 07/11/20 07:55 Dose: 17 gm Documented by: Pregabalin (Lyrica) 75 mg PO BID [facility] Last Admin: 07/11/20 05:48 Dose: 75 mg Documented by: Promethazine HCl (Phenergan) 25 mg IV Q6H PRN PRN PRN Reason: NAUSEA/VOMITING Last Admin: 07/09/20 06:25 Dose: 25 mg Documented by: Senna/Docusate Sodium (Senokot-S, Veronique-Colace) 2 tablet PO [facility] Last Admin: 07/11/20 07:55 Dose: 2 tablet Documented by: Sodium Chloride () 10 - 40 ml IV UD PRN PRN Reason: SALINE FLUSH Last Admin: 07/10/20 20:29 Dose: 10 ml Documented by: - Physical Exam General: Alert, Oriented x3, Cooperative, Well developed, Well nourished Lungs: Clear to auscultation, Normal air movement Cardiovascular: Regular rate, Regular Rhythm, Normal S1, Normal S2 Abdomen: Bowel Sounds Present, Soft, Non Tender Extremities: No edema Skin: No rashes, No breakdown Musculoskeletal: Tenderness - low back Neurological: Cranial nerves II-XII grossly intact Psych/Mental Status: Normal Affect, Appropriate - she maintains a positive attitude despite a very painful day yesterday Assessment/Plan All Active Problems (Last Reviewed 06/29/20 @ 03:[address] Allan Yost MD) Acute back pain (Acute) Thoracic vertebral fracture (Acute) Acute renal injury (Acute) Uncontrolled pain (Acute) Debility (Acute) Intractable back pain (Acute) ASSESSMENT AND PLAN: Given the patient's ongoing complaints of pain, nausea, and diarrhea, I will make the following changes in conjunction with Dr. Duyen Miles. 1. Opioid-induced nausea - I will increase the scheduled Haldol to 1mg TID again, as we are increasing her PO dose of Dilaudid. Continue meclizine and promethazine PRN. Continue IV Ativan to help with nausea and anxiety. 2. Intractable pain related to multiple myeloma - discontinue the Lidoderm patch, as it seems ineffective and cumbersome. We will add a scheduled dose of Dilaudid (4mg Q6H) and continue the 2mg Q3H PRN dose. DC and remove the fentanyl 25mcg patch, so she will be on 100mcg now to compensate for the additional daily Dilaudid. Continue to monitor for somnolence. The plan will be to decrease the fentanyl again next week as radiation and steriods have an impact on her pain. Continue the Lyrica 75mg BID, baclofen 10mg TID dexamethasone 20mg BID, duloxetine 60mg QD; we will continue to titrate as appropriate for optimal pain relief without excess sedation. 3. Constipation, opioid-induced - discontinue Lactulose. Continue scheduled Senna S 2 tabs BID and Miralax 17gm BID, continue bisacodyl 10mg suppository PRN. Dr. Duyen Miles will plan to see patient in TCU on Tuesday, July 14, 2020. [facility] will continue to make daily telephone calls to loreto matthew and/or TCU staff to assist in pain and nausea management. At the patient's request, I will update her sister Natalia. Thank you for the ongoing opportunity to participate in the care of our shared patient. Disclaimer: This note was dictated using [employer] software and may contain spelling, grammar, or other health manager errors.
[2020-07-11] MEDS: HYDROmorphone 2 MG TABLET 4 MG PO ×2 (11:50→17:04)
[2020-07-11] MEDS: LORazepam 2 MG/ML Syringe 1 MG IV (12:15)
[2020-07-11] MEDS: 0.9% Saline Lock 10 ML Syringe IV (12:16)
--- NOTE | 2020-07-11 12:39 | NURSING ---
PT OFF UNIT TO RADIATION VIA BED AT THIS TIME. MEDICATED WITH IV ATIVAN & MECLIZINE.
[2020-07-11 15:28] VITALS: BP 123/75; PULSE 76; RESP 16; TEMP 36.6; O2SAT 95
--- NOTE | 2020-07-11 16:35 | NURSING ---
Patient is cleared to shower. Please assist when showering. Haugan pen simon with clear stickers around pelvis are needed for treatment. Do not scrub the stickers. Feel free to call RT for any questions or concerns at #[phone].
--- NOTE | 2020-07-11 22:07 | PCA ---
patient refused pm care.patient did brush teeth
[2020-07-12] MEDS: HYDROmorphone 2 MG TABLET 4 MG PO ×5 (00:16→23:05)
--- NOTE | 2020-07-12 00:45 | NURSING ---
Removed old Duragesic on rt chest, wasted and applied new patch to lt chest.
[2020-07-12] MEDS: HYDROmorphone 2 MG TABLET PO ×2 (03:31→11:01)
[2020-07-12 05:00] VITALS: BP 135/79; PULSE 66; RESP 18; TEMP 36.6; O2SAT 96
[2020-07-12] MEDS: Famotidine 20 MG Tablet PO ×2 (06:31→18:01)
[2020-07-12] MEDS: Pregabalin 75 MG Capsule PO ×2 (06:31→18:00)
[2020-07-12] MEDS: Baclofen 10 MG Tablet PO ×3 (06:31→20:57)
[2020-07-12] MEDS: Haloperidol 1 MG Tablet PO ×3 (06:31→20:59)
[2020-07-12] MEDS: Enoxaparin 40 MG/0.4 ML Syringe SC (06:32)
[2020-07-12] MEDS: DULoxetine Hcl 60 MG Capsule PO (06:32)
[2020-07-12] MEDS: Acetaminophen 500 MG Tablet 1000 MG PO ×3 (06:32→20:57)
[2020-07-12] MEDS: Meclizine 12.5 MG Tablet PO (08:45)
[2020-07-12] MEDS: 0.9% Saline Lock 10 ML Syringe IV (08:48)
[2020-07-12] MEDS: dexAMETHasone 4 MG Tablet 20 MG PO (09:13)
[2020-07-12 10:00] VITALS: RESP 16
[2020-07-12 14:00] VITALS: BP 150/83; PULSE 80; RESP 14; TEMP 36.1; O2SAT 97
[2020-07-12] MEDS: Senna/Docusate Sodium 1 Tablet 2 TABLET PO (18:08)
[2020-07-13] MEDS: HYDROmorphone 2 MG TABLET PO (02:50)
[2020-07-13 02:56] VITALS: BP 141/82; PULSE 73; RESP 18; TEMP 36.2; O2SAT 96
[2020-07-13] MEDS: proMETHazine 25 MG/ML Syringe IV (03:09)
[2020-07-13] MEDS: HYDROmorphone 2 MG TABLET 4 MG PO ×3 (06:02→17:58)
[2020-07-13] MEDS: Baclofen 10 MG Tablet PO ×3 (06:03→21:09)
[2020-07-13] MEDS: Haloperidol 1 MG Tablet PO ×3 (06:03→21:07)
[2020-07-13] MEDS: Acetaminophen 500 MG Tablet 1000 MG PO ×3 (06:03→21:08)
[2020-07-13] MEDS: Pregabalin 75 MG Capsule PO ×2 (06:03→17:58)
[2020-07-13] MEDS: DULoxetine Hcl 60 MG Capsule PO (06:03)
[2020-07-13] MEDS: Famotidine 20 MG Tablet PO ×2 (06:03→18:00)
[2020-07-13] MEDS: Enoxaparin 40 MG/0.4 ML Syringe SC (06:03)
[2020-07-13] MEDS: Polyethylene Glycol 3350 17 GM PACKET PO (07:59)
[2020-07-13] MEDS: Senna/Docusate Sodium 1 Tablet 2 TABLET PO (07:59)
[2020-07-13] MEDS: Meclizine 12.5 MG Tablet PO (09:59)
[2020-07-13] MEDS: 0.9% Saline Lock 10 ML Syringe IV ×2 (09:59→18:06)
[2020-07-13 13:49] VITALS: BP 135/82; PULSE 98; RESP 14; TEMP 36.1; O2SAT 95
[2020-07-14] MEDS: HYDROmorphone 2 MG TABLET 4 MG PO ×5 (00:07→23:16)
[2020-07-14] MEDS: HYDROmorphone 2 MG TABLET PO (02:44)
[2020-07-14 04:12] VITALS: BP 138/69; PULSE 72; RESP 18; TEMP 36.8; O2SAT 97
[2020-07-14] MEDS: Meclizine 12.5 MG Tablet PO (04:13)
[2020-07-14] MEDS: Enoxaparin 40 MG/0.4 ML Syringe SC (05:58)
[2020-07-14] MEDS: Haloperidol 1 MG Tablet PO ×4 (05:58→21:50)
[2020-07-14] MEDS: Pregabalin 75 MG Capsule PO (05:58)
[2020-07-14] MEDS: DULoxetine Hcl 60 MG Capsule PO (05:59)
[2020-07-14] MEDS: Baclofen 10 MG Tablet PO ×3 (05:59→21:50)
[2020-07-14] MEDS: Famotidine 20 MG Tablet PO ×2 (05:59→17:47)
[2020-07-14] MEDS: Acetaminophen 500 MG Tablet 1000 MG PO ×3 (05:59→21:49)
--- NOTE | 2020-07-14 06:53 | NURSING ---
duragesic noted to the rt upper chest
[2020-07-14] MEDS: Senna/Docusate Sodium 1 Tablet PO (08:46)
--- NOTE | 2020-07-14 09:21 | NURSING ---
pt sister wanted this nurse to call and explain why her sister was getting another kub done. this nurse explained it to sister kristyn and sister stated she under stood. rn aware.
--- NOTE | 2020-07-14 09:46 | PN.PALL_ITS ---
Progress Note- Hospice Date: 07/14/20 Subjective: 55 yr old female with newly diagnosed multiple myeloma and significant back pain from bony involvement, compression fracture, and muscle spasms. Pain had improved at the end of last week but increased again yesterday. Pain is across back and wraps around to lateral abdomen bilaterally. Increased pain has made it difficult to transfer in and out of bed and she is needing help with transfers again. Pain 5-7/10 lately and constant. Has not taken much PRN Dilaudid (generally just one a day the past few days), she states in part due to nausea but mostly due to fear of addiction. Currently on fentanyl 100mcg patch q3days, Dilaudid 4mg q6h scheduled, Tylenol 1000mg TID, Baclofen 10mg TID, Cymbalta & Lyrica. Nausea better but still present. It does increase with motion, she has been taking PRN meclizine prior to transfer off floor for XRT and this helps. On scheduled haloperidol for nausea. Last BM 07/13 was very large. Prior to that she had been having diarrhea. She was on lactulose TID but it was stopped. Now on Senna 1 tab BID but it is on hold due to the recent diarrhea. Feels foggy. She isn't sleeping well, in part due to pain, and in part due to anxiety. Starts to get anxious several hours before XRT, as she knows the movement will be painful. Objective: Vital Signs Temp 98.2 F 07/14/20 04:12 Pulse 72 07/14/20 04:12 Resp 18 07/14/20 04:12 BP 138/69 H 07/14/20 04:12 Pulse Ox 97 07/14/20 04:12 Intake & Output 07/12/20 07/13/20 07/14/20 23:59 23:59 23:59 Intake Total 460 / 460 600 / 600 90 / 90 Balance 460 / 460 600 / 600 90 / 90 Intake: Oral 460 / 460 600 / 600 90 / 90 Other: Incontinent Amount Moderate Current Medications Acetaminophen (Tylenol) 1,000 mg PO TID [facility] Last Admin: 07/14/20 05:59 Dose: 1,000 mg Documented by: Al Hydroxide/Mg Hydroxide (Mylanta Ii) 30 ml PO Q6H PRN PRN PRN Reason: INDIGESTION Last Admin: 07/06/20 18:35 Dose: 30 ml Documented by: Baclofen (Lioresal) 10 mg PO TID [facility] Last Admin: 07/14/20 05:59 Dose: 10 mg Documented by: Bisacodyl (Dulcolax) 10 mg RECTAL DAILY PRN PRN PRN Reason: Constipation Last Admin: 07/07/20 20:19 Dose: 10 mg Documented by: Dexamethasone (Decadron) 20 mg PO DAILY@0800 [facility] Dexamethasone (Decadron) 20 mg PO X1 ONE Stop: 07/14/20 09:37 Duloxetine HCl (Cymbalta) 60 mg PO DAILY [facility] Last Admin: 07/14/20 05:59 Dose: 60 mg Documented by: Enoxaparin Sodium (Lovenox) 40 mg SC DAILY [facility] Last Admin: 07/14/20 05:58 Dose: 40 mg Documented by: Famotidine (Pepcid) 20 mg PO BID [facility] Last Admin: 07/14/20 05:59 Dose: 20 mg Documented by: Fentanyl (Duragesic Patch) 100 mcg TRANSDERM. Q3D [facility] Last Admin: 07/12/20 00:40 Dose: 100 mcg Documented by: Haloperidol (Haldol) 1 mg PO Q6H [facility] Hydrocortisone (Hytone) 1 applic TOPICAL 4X/DAY PRN PRN Reason: hemorrhoids Hydromorphone HCl (Dilaudid Tablet) 2 mg PO Q3H PRN PRN PRN Reason: Pain Score 6-10/10 Last Admin: 07/14/20 02:44 Dose: 2 mg Documented by: Hydromorphone HCl (Dilaudid Tablet) 4 mg PO Q6 [facility] Last Admin: 07/14/20 05:59 Dose: 4 mg Documented by: Lorazepam (Ativan) 0.5 mg PO Q8H PRN PRN PRN Reason: ANXIETY Lorazepam (Ativan) 0.5 mg PO DAILY [facility] Meclizine HCl (Antivert) 12.5 mg PO 4X/DAY PRN PRN PRN Reason: nausea Last Admin: 07/14/20 04:13 Dose: 12.5 mg Documented by: Polyethylene Glycol (Miralax) 17 gm PO DAILY [facility] Pregabalin (Lyrica) 75 mg PO BID [facility] Last Admin: 07/14/20 05:58 Dose: 75 mg Documented by: Promethazine HCl (Phenergan) 25 mg IV Q6H PRN PRN PRN Reason: NAUSEA/VOMITING Last Admin: 07/13/20 03:09 Dose: 25 mg Documented by: Senna/Docusate Sodium (Senokot-S, Veronique-Colace) 1 tablet PO 799,1999 [facility] Last Admin: 07/14/20 08:46 Dose: 1 tablet Documented by: Sodium Chloride () 10 - 40 ml IV UD PRN PRN Reason: SALINE FLUSH Last Admin: 07/13/20 18:06 Dose: 10 ml Documented by: - Physical Exam General: Alert, Oriented x3, Well developed HEENT: - - pupils 3mm Neck: Supple Lungs: - - Respirations easy and nonlabored, no tachypnea Extremities: No clubbing, No cyanosis Assessment/Plan All Active Problems (Last Reviewed 06/29/20 @ 03:[address] Allan Yost MD) Acute back pain (Acute) Thoracic vertebral fracture (Acute) Acute renal injury (Acute) Uncontrolled pain (Acute) Debility (Acute) Intractable back pain (Acute) 55 year old with newly diagnosed MM and significant back pain from compression fracture, bony involvement by myeloma, and resultant muscle spasms 1. BACK PAIN - She benefited from the steroid and I think will need to be on it for longer, probably at least until the benefits from the XRT kick in. Restart dexamethasone at 20mg daily. Continue fentanyl 100mcg patch q3days and Dilaudid 4mg q6h. Would not increase the fentanyl but rather adjust the short acting pain med if need increased dosing, as when the XRT effects kick in, she could need an opioid dose reduction and this will be easier to monitor and accomplish with short acting meds than with fentanyl. Continue Tylenol. Taper off Lyrica (patient reported at my initial visit with her prior to admit that she hadn't seen any benefit from it. Continue Baclofen for muscle spasms. Educated re: low risk of addiction when in severe pain. 2. CONSTIPATION DUE TO OPIOIDS - had diarrhea due to lactulose. Restart Senna when no BM for > 1 day. 3. NAUSEA - multifactorial, but partly due to opioid-induced nausea, seems to have a vestibular component as well. Increase scheduled haloperidol to 1mg q6h. Continue PRN meclizine and Phenergan. Has been on scheduled Dilaudid since late last week, hopefully with have improvement in the next few days. 4. ANXIETY - only has lorazepam PRN ordered IV. Discussed options with patient. Schedule lorazepam 0.5mg daily at 10AM to help with anxiety prior to XRT. Also added lorazepam 0.5mg q8h PRN 5. MENTAL FOGGINESS - may be drug related, on a lot of meds that could contribute. Adding dexamethasone may help. Will taper off of Lyrica. Consider rotation of Baclofen to methocarbamol which may be less sedating, but will hold off on that for now due to already making multiple med adjustments. Could trial Ritalin if needed. Will call and update sister Natalia at patient's request.
[2020-07-14] MEDS: 0.9% Saline Lock 10 ML Syringe IV ×3 (09:47→21:54)
[2020-07-14 10:00] VITALS: PULSE 96; RESP 18; O2SAT 95
[2020-07-14] MEDS: LORazepam 0.5 MG Tablet PO (10:35)
[2020-07-14] MEDS: dexAMETHasone 4 MG Tablet 20 MG PO (10:36)
[2020-07-14] MEDS: proMETHazine 25 MG/ML Syringe IV (11:08)
--- NOTE | 2020-07-14 14:10 | RAD_ITS ---
HISTORY: DIARRHEA EXAMINATION/TECHNIQUE: XR Abdomen 1 View: COMPARISON: July 08, 2020 FINDINGS: LINES AND TUBES: None. BOWEL GAS PATTERN: Non-obstructive. No bowel or stomach distention. Retained fecal material is seen predominantly in the descending colon FREE AIR: Not assessed on a single supine view. ORGANOMEGALY: Not seen. CALCIFICATIONS: Vascular calcifications in the pelvis LOWER CHEST: No acute pathology. BONES AND SOFT TISSUES: Vertebroplasty at L5 similar to prior study RAD/Abdomen Single View IMPRESSION: Non-obstructive bowel gas pattern. at 0022 Reported and signed by: Rose Hilario DO Electronically Signed: Rose Hilario DO at 0:20 EDT Tel , Service support ,
--- NOTE | 2020-07-14 14:40 | CASEMGMT ---
Addendum entered by Sarah Lynn 07/14/20 15:17: Spoke with sister to discuss alternative options. sister explained pt cannot return home at this time as she is still a x2 assist. SW agreed. Explained the other options are to remain in TCU private pay or to DC to SNF private pay - insurance will no longer cover SNF stay. Provided rates and most request 30 days up front. Sister inquired about Medicaid. Explained Medicaid - pt must be eligible, it takes time to receive approval, and that not all SNFs accept Medicaid pending numbers. Sister does not know pt's finances but will ask pt. Emailed sister list of SNFs and SAROJ boris, with detailed explanation again on Medicaid eligibility, in network with MMO pt could receive therapy vs no MMO not receive therapy, and private pay vs MCDP#. Sister to contact SW with pt's finances to determine if pt is eligible. Will continue to follow. Original Note: Social Work Insurance reviewer contacted SW to inquire about DC plans and pt's progress. Explained barriers to DC would be transportation to radiation treatments from home or from another SNF. Explained therapy is going to reeval once treatments are completed in hopes to build pt strength and stamina. Reviewer still concerned about pt DC home with steps to enter and needing 24/7 supervision. Left message with sister to discuss about information and alternative DC plan. Will continue to follow. Sarah Lynn, JIL BARBERW
[2020-07-14 16:00] VITALS: BP 129/72; PULSE 99; RESP 14; TEMP 36; O2SAT 98
--- NOTE | 2020-07-14 19:10 | NURSING ---
Duragesic patch verified to left chest.
[2020-07-14 21:51] LABS: Bedside Glucose 135 mg/dL (70-110)
--- NOTE | 2020-07-15 00:09 | NURSING ---
Removed Duragesic patch from Left chest. Wasted with Shannon SMALL. New Duragesic patch placed on right upper back.
[2020-07-15] MEDS: HYDROmorphone 2 MG TABLET PO (04:22)
[2020-07-15] MEDS: Haloperidol 1 MG Tablet PO ×4 (04:22→21:18)
[2020-07-15 04:39] VITALS: BP 134/80; PULSE 16; RESP 16; TEMP 37.1; O2SAT 96
[2020-07-15] MEDS: Acetaminophen 500 MG Tablet 1000 MG PO ×3 (06:27→21:18)
[2020-07-15] MEDS: Famotidine 20 MG Tablet PO ×2 (06:27→18:14)
[2020-07-15] MEDS: HYDROmorphone 2 MG TABLET 4 MG PO ×4 (06:27→23:48)
[2020-07-15] MEDS: Baclofen 10 MG Tablet PO ×3 (06:27→21:18)
[2020-07-15] MEDS: Enoxaparin 40 MG/0.4 ML Syringe SC (06:28)
[2020-07-15] MEDS: Pregabalin 75 MG Capsule PO (06:28)
[2020-07-15] MEDS: DULoxetine Hcl 60 MG Capsule PO (06:28)
[2020-07-15] MEDS: dexAMETHasone 4 MG Tablet 20 MG PO (08:42)
[2020-07-15] MEDS: LORazepam 0.5 MG Tablet PO (10:24)
[2020-07-15] MEDS: Ondansetron 4 MG/2 ML Vial IV (12:25)
[2020-07-15] MEDS: 0.9% Saline Lock 10 ML Syringe IV (12:25)
[2020-07-15 15:03] VITALS: BP 127/76; PULSE 102; RESP 16; TEMP 36.1; O2SAT 94
--- NOTE | 2020-07-15 15:05 | NURSING ---
Duragesic patch verified to right upper back.
--- NOTE | 2020-07-15 15:06 | NURSING ---
per pt ,pt sister was updated by tjsocial group worker.
[2020-07-15] MEDS: Senna/Docusate Sodium 1 Tablet PO (18:14)
[2020-07-15 23:00] VITALS: PULSE 92; RESP 16; O2SAT 96
[2020-07-16] MEDS: HYDROmorphone 2 MG TABLET PO ×2 (00:58→22:46)
[2020-07-16] MEDS: Haloperidol 1 MG Tablet PO ×4 (04:16→20:45)
[2020-07-16 05:18] VITALS: BP 125/72; PULSE 78; RESP 16; TEMP 36.8; O2SAT 97
[2020-07-16] MEDS: DULoxetine Hcl 60 MG Capsule PO (05:23)
[2020-07-16] MEDS: Acetaminophen 500 MG Tablet 1000 MG PO ×3 (05:23→20:44)
[2020-07-16] MEDS: HYDROmorphone 2 MG TABLET 4 MG PO ×4 (05:23→23:58)
[2020-07-16] MEDS: Baclofen 10 MG Tablet PO (05:23)
[2020-07-16] MEDS: Famotidine 20 MG Tablet PO ×2 (05:23→16:59)
[2020-07-16] MEDS: Pregabalin 75 MG Capsule PO (05:24)
[2020-07-16] MEDS: Enoxaparin 40 MG/0.4 ML Syringe SC (05:29)
--- NOTE | 2020-07-16 07:35 | NURSING ---
Duragesic patch noted to right upper back.
--- NOTE | 2020-07-16 07:51 | MDS.RN ---
Information for the mds was obtained from review of the clinical record, interview of resident, staff, and direct observation of resident's care.
--- NOTE | 2020-07-16 08:11 | PN.PALL_ITS ---
Progress Note- Hospice Date: 07/16/20 Subjective: 55 yr old female with multiple myeloma and back pain from compression fracture, bony involvement of MM, and muscle spasms. Pain better since restarting steroid but still significant. Pain 2-3/10 at baseline, increases to 4/10 with movement, but has frequent spasms of pain that are at least 8/10. The spasms are happening more often. She's on Baclofen here, had been on Flexeril at home when they happened much less frequently. Potassium and Magnesium are normal. Feels foggy. Nausea is better and happens just sporadically and is milder since the increase in haloperidol and addition of dexamethasone on Tuesday. Last BM 07/13, had been having diarrhea but that has resolved after lactulose was stopped. This AM she is up in chair eating breakfast. She got up with assist to bedside commode and walked a little in room with walker. This is the most activity she has been able to tolerate this past week. Objective: Vital Signs Temp 98.2 F 07/16/20 05:18 Pulse 78 07/16/20 05:18 Resp 16 07/16/20 05:18 BP 125/72 H 07/16/20 05:18 Pulse Ox 97 07/16/20 05:18 Intake & Output 07/14/20 07/15/20 07/16/20 23:59 23:59 23:59 Intake Total 510 / 510 480 / 480 Balance 510 / 510 480 / 480 Intake: Oral 510 / 510 480 / 480 Other: Incontinent Amount Moderate Number of Bowel Movements 1 Current Medications Acetaminophen (Tylenol) 1,000 mg PO TID [facility] Last Admin: 07/16/20 05:23 Dose: 1,000 mg Documented by: Al Hydroxide/Mg Hydroxide (Mylanta Ii) 30 ml PO Q6H PRN PRN PRN Reason: INDIGESTION Last Admin: 07/06/20 18:35 Dose: 30 ml Documented by: Baclofen (Lioresal) 10 mg PO TID [facility] Last Admin: 07/16/20 05:23 Dose: 10 mg Documented by: Bisacodyl (Dulcolax) 10 mg RECTAL DAILY PRN PRN PRN Reason: Constipation Last Admin: 07/07/20 20:19 Dose: 10 mg Documented by: Dexamethasone (Decadron) 20 mg PO DAILY@0800 [facility] Last Admin: 07/15/20 08:42 Dose: 20 mg Documented by: Duloxetine HCl (Cymbalta) 60 mg PO DAILY [facility] Last Admin: 07/16/20 05:23 Dose: 60 mg Documented by: Enoxaparin Sodium (Lovenox) 40 mg SC DAILY [facility] Last Admin: 07/16/20 05:29 Dose: 40 mg Documented by: Famotidine (Pepcid) 20 mg PO BID [facility] Last Admin: 07/16/20 05:23 Dose: 20 mg Documented by: Fentanyl (Duragesic Patch) 100 mcg TRANSDERM. Q3D [facility] Last Admin: 07/14/20 23:27 Dose: 100 mcg Documented by: Haloperidol (Haldol) 1 mg PO Q6H [facility] Last Admin: 07/16/20 04:16 Dose: 1 mg Documented by: Hydrocortisone (Hytone) 1 applic TOPICAL 4X/DAY PRN PRN Reason: hemorrhoids Hydromorphone HCl (Dilaudid Tablet) 2 mg PO Q3H PRN PRN PRN Reason: Pain Score 6-10/10 Last Admin: 07/16/20 00:58 Dose: 2 mg Documented by: Hydromorphone HCl (Dilaudid Tablet) 4 mg PO Q6 [facility] Last Admin: 07/16/20 05:23 Dose: 4 mg Documented by: Lorazepam (Ativan) 0.5 mg PO Q8H PRN PRN PRN Reason: ANXIETY Last Admin: 07/14/20 10:35 Dose: 0.5 mg Documented by: Lorazepam (Ativan) 0.5 mg PO DAILY@1000 [facility] Meclizine HCl (Antivert) 12.5 mg PO 4X/DAY PRN PRN PRN Reason: nausea Last Admin: 07/14/20 04:13 Dose: 12.5 mg Documented by: Ondansetron HCl (Zofran) 4 mg IV Q6H PRN PRN PRN Reason: NAUSEA/VOMITING Last Admin: 07/15/20 12:25 Dose: 4 mg Documented by: Polyethylene Glycol (Miralax) 17 gm PO DAILY [facility] Last Admin: 07/16/20 05:21 Dose: Not Given Documented by: Pregabalin (Lyrica) 75 mg PO DAILY [facility] Stop: 07/18/20 07:00 Last Admin: 07/16/20 05:24 Dose: 75 mg Documented by: Senna/Docusate Sodium (Senokot-S, Veronique-Colace) 1 tablet PO BID PRN PRN PRN Reason: Constipation Last Admin: 07/15/20 18:14 Dose: 1 tablet Documented by: Senna/Docusate Sodium (Senokot-S, Veronique-Colace) 1 tablet PO BID [facility] Sodium Chloride () 10 - 40 ml IV UD PRN PRN Reason: SALINE FLUSH Last Admin: 07/15/20 12:25 Dose: 10 ml Documented by: - Physical Exam General: Alert, Cooperative, Well developed, Well nourished HEENT: - - Pupils 3-4mm Oral: Moist Mucosa Lungs: - - Respirations regular and nonlabored Assessment/Plan All Active Problems (Last Reviewed 06/29/20 @ 03:[address] Allan Yost MD) Acute back pain (Acute) Thoracic vertebral fracture (Acute) Acute renal injury (Acute) Uncontrolled pain (Acute) Debility (Acute) Intractable back pain (Acute) 55 year old with newly diagnosed MM and significant back pain from compression fracture, bony involvement by myeloma, and resultant muscle spasms 1. BACK PAIN - Improved since restarting the dexamethasone 20mg. Would continue that dose for now, with plans to taper down once pain relief from XRT occurs - would anticipate that in the next two weeks. Still having significant pain, much of it seems muscular - possibly spasms. Potassium and magnesium are normal. Switch Baclofen to Flexeril, as she had tolerated that at home without significant sedation and with much better relief of pain. Offered increase in Dilaudid, but that might increase the fogginess - plan to keep dose the same for now. Continue fentanyl patch but may need to taper it and/or decrease the scheduled Dilaudid when pain improves from the XRT. Continue Tylenol. Continue to taper off Lyrica (patient reported at my initial visit with her prior to admit that she hadn't seen any benefit from it). 2. CONSTIPATION DUE TO OPIOIDS - had diarrhea due to lactulose. No BM since 07/13. Restart Senna-S BID 3. NAUSEA - multifactorial, but partly due to opioid-induced nausea, seems to have a vestibular component as well. Improved significantly with change of haloperidol from q8h to q6h. Continue haloperidol 1mg q6 for now, may be able to taper in a few weeks once fluxes in opioid doses are complete. 4. ANXIETY - continue lorazepam prior to XRT and as needed 5. MENTAL FOGGINESS - may be drug related, on a lot of meds that could contribute. Adding dexamethasone may help. Tapering off of Lyrica. Could trial Ritalin if needed. Will call and update sister Natalia at patient's request.
[2020-07-16] MEDS: dexAMETHasone 4 MG Tablet 20 MG PO (08:14)
--- NOTE | 2020-07-16 09:44 | PCA ---
Pt used the bedside commode with assistance from nurse jeremy velásquez and i, than she walked forward in room about 10 steps, we encouraged pt to try and sit up in the wheelchair til breakfast time which was about 30 mins patient agreed to give it a try and stayed in wheelchair for 1.5 hours. pt rang after breakfast to get back into bed nurse jeremy velásquez and i assisted pt to a standing postion from wheelchair. pt asked if she could walk around her room a little bit we walked pt about 12 feet total and adjusted pt back in bed
[2020-07-16 10:00] VITALS: PULSE 87; RESP 16; O2SAT 97
[2020-07-16] MEDS: LORazepam 0.5 MG Tablet PO (10:14)
--- NOTE | 2020-07-16 12:08 | CASEMGMT ---
Social Work Spoke with pt's sister about insurance approving with NRD 07/25 and continued stay is not guaranteed. Sister did complete SAROJ application - SW submitted to [employer] the previous day. Sister expressed hope that pt is improving and she could return home. She stated the pt wanted to complete therapy the previous day and has been given a steroid so her pain is more controlled, she is more mobile and having more energy. SW hopeful for the change in progress but also explained to sister that discharge planning for a SNF still needs to continue just as an alternative plan. Since insurance provided her with such an extended period of approval, if pt does not continue to progress and cannot go home, insurance will most likely issue DC date and will not allow continued time to restart DC plans. Sister expressed understanding. Sister provided SW with Lisette and Sravani Matthews to refer to as options. Referrals made. Will continue to follow. Sarah Lynn, JIL BARBERW
[2020-07-16] MEDS: Ondansetron 4 MG/2 ML Vial IV (12:35)
[2020-07-16] MEDS: 0.9% Saline Lock 10 ML Syringe IV ×2 (12:36→20:55)
--- NOTE | 2020-07-16 12:58 | NURSING ---
Off unit for radiation therapy.
[2020-07-16 14:47] VITALS: BP 125/75; PULSE 81; RESP 14; TEMP 35.9; O2SAT 97
[2020-07-16] MEDS: cycloBENZAPRine HCl 10 MG Tablet PO ×2 (15:06→20:44)
[2020-07-16] MEDS: Senna/Docusate Sodium 1 Tablet PO (16:59)
--- NOTE | 2020-07-17 00:49 | NURSING ---
Duragesic patch verified on right upper back
[2020-07-17] MEDS: Haloperidol 1 MG Tablet PO ×4 (03:49→22:04)
[2020-07-17 03:52] VITALS: BP 129/77; PULSE 70; RESP 16; TEMP 36.8; O2SAT 97
[2020-07-17] MEDS: Acetaminophen 500 MG Tablet 1000 MG PO ×3 (06:31→22:03)
[2020-07-17] MEDS: HYDROmorphone 2 MG TABLET 4 MG PO ×4 (06:31→23:07)
[2020-07-17] MEDS: Pregabalin 75 MG Capsule PO (06:31)
[2020-07-17] MEDS: Enoxaparin 40 MG/0.4 ML Syringe SC (06:32)
[2020-07-17] MEDS: Senna/Docusate Sodium 1 Tablet PO ×2 (06:32→18:35)
[2020-07-17] MEDS: Famotidine 20 MG Tablet PO ×2 (06:32→18:36)
[2020-07-17] MEDS: DULoxetine Hcl 60 MG Capsule PO (06:32)
[2020-07-17] MEDS: cycloBENZAPRine HCl 10 MG Tablet PO ×3 (06:32→22:05)
[2020-07-17] MEDS: Polyethylene Glycol 3350 17 GM PACKET PO (06:35)
[2020-07-17] MEDS: dexAMETHasone 4 MG Tablet 20 MG PO (07:46)
[2020-07-17] MEDS: LORazepam 0.5 MG Tablet PO ×2 (10:53→12:27)
--- NOTE | 2020-07-17 12:01 | NURSING ---
pt had shower today, tolerated well
[2020-07-17] MEDS: HYDROmorphone 2 MG TABLET PO ×2 (12:23→16:47)
[2020-07-17] MEDS: Ondansetron 4 MG/2 ML Vial IV (12:28)
[2020-07-17] MEDS: 0.9% Saline Lock 10 ML Syringe IV ×2 (12:31→22:02)
[2020-07-17 14:31] VITALS: BP 156/90; PULSE 100; RESP 14; TEMP 36.6; O2SAT 97
[2020-07-17 22:10] VITALS: PULSE 80; RESP 16; O2SAT 95
--- NOTE | 2020-07-17 23:30 | NURSING ---
This nurse removed duragesic patch 100 mcg from right upper back and wasted with STACI Chavez. New patch applied to left upper chest.
[2020-07-18] MEDS: HYDROmorphone 2 MG TABLET PO ×2 (01:39→21:34)
[2020-07-18] MEDS: Haloperidol 1 MG Tablet PO ×4 (03:50→21:37)
[2020-07-18 03:57] VITALS: BP 130/77; PULSE 81; RESP 16; TEMP 36.6; O2SAT 96
[2020-07-18 05:35] LABS: Absolute Lymphocyte Count 0.24 X10^3/uL (0.83-4.51); Absolute Neutrophil Count 4.2 X10^3/uL (2.0-7.7); Basophil# 0.01 X10^3/uL; Basophil% 0.2 % (0-1); Eosinophil# 0.23 X10^3/uL; Eosinophils% 4.2 % (0-5); Hematocrit 31.8 % (37-47); Hemoglobin 10.1 g/dL (12.0-15.0); Lymphocyte # 0.24 X10^3/ul (4.0); Lymphocyte % 4.4 % (19-41); Mean Corp Hgb Conc 31.8 g/dL (32-36); Mean Corpuscular Hgb 30.5 pg (27.0-32.0); Mean Corpuscular Volume 96.1 fL (81-99); Mean Platelet Vol. 9.1 fl (6.2-12.0); Monocyte# 0.65 X10^3/uL; Monocyte% 11.9 % (0-10); NRBC Flagged by Analyzer 0 % (0-5); Neutrophil # 4.19 X10^3/uL (2.7-7.7); Neutrophil % 76.4 % (47-70); POSITIVE DIFFERENTIAL YES; Platelet Count 136 K/mm3 (150-450); RBC Distribution Width CV 13.2 % (11.6-14.6); RBC Distribution Width SD 44.7 fl (35.1-43.9); Red Blood Count 3.31 M/mm3 (4.2-5.4); White Blood Count 5.5 K/mm3 (4.4-11.0)
[2020-07-18 05:53] LABS: Anion Gap 5 (5-15); BUN 25 mg/dL (7-18); BUN/Creat Ratio 36.2 RATIO (10-20); Calcium,Total 8.9 mg/dL (8.5-10.1); Chloride 105 mmol/L (98-107); Creatinine, Serum 0.69 mg/dL (0.55-1.02); EST Glomerular Filtration Rate 93 mL/min (>60); Est Glom Filt Rate - Afr Amer 113 mL/min (>60); Estimated Creatinine Clearance 81.92 ml/min; Glucose 82 mg/dL (74-106); Potassium 4.1 mmol/L (3.5-5.1); Sodium Level 138 mmol/L (136-145)
[2020-07-18 06:12] LABS: Differential Indicated SCAN CRITERIA MET
[2020-07-18] MEDS: HYDROmorphone 2 MG TABLET 4 MG PO ×3 (06:37→17:02)
[2020-07-18] MEDS: Acetaminophen 500 MG Tablet 1000 MG PO ×3 (06:37→21:34)
[2020-07-18] MEDS: DULoxetine Hcl 60 MG Capsule PO (06:37)
[2020-07-18] MEDS: Pregabalin 75 MG Capsule PO (06:37)
[2020-07-18] MEDS: Polyethylene Glycol 3350 17 GM PACKET PO (06:37)
[2020-07-18] MEDS: Senna/Docusate Sodium 1 Tablet PO ×2 (06:38→17:06)
[2020-07-18] MEDS: cycloBENZAPRine HCl 10 MG Tablet PO ×3 (06:38→21:39)
[2020-07-18] MEDS: Famotidine 20 MG Tablet PO ×2 (06:38→17:05)
[2020-07-18 06:39] LABS: Differential Comment SCANNED
[2020-07-18] MEDS: dexAMETHasone 4 MG Tablet 20 MG PO (08:02)
[2020-07-18 10:00] VITALS: PULSE 94; RESP 16; O2SAT 97
[2020-07-18] MEDS: LORazepam 0.5 MG Tablet PO (10:59)
[2020-07-18] MEDS: Ondansetron 4 MG/2 ML Vial IV (11:09)
[2020-07-18 13:48] VITALS: BP 145/89; PULSE 100; RESP 17; TEMP 36.7; O2SAT 95
--- NOTE | 2020-07-18 16:29 | CASEMGMT ---
Social Work [facility] accepted pt. Sravani Matthews will review notes closer to DC and determine availability. NRD 07/25. Will continue to follow. JIL CarlinW
[2020-07-18] MEDS: 0.9% Saline Lock 10 ML Syringe IV (21:43)
[2020-07-19] MEDS: HYDROmorphone 2 MG TABLET 4 MG PO ×4 (00:04→18:15)
[2020-07-19] MEDS: Haloperidol 1 MG Tablet PO ×4 (03:59→21:46)
[2020-07-19 04:04] VITALS: BP 149/82; PULSE 82; RESP 16; TEMP 36.8; O2SAT 96
[2020-07-19] MEDS: Polyethylene Glycol 3350 17 GM PACKET PO (06:24)
[2020-07-19] MEDS: Senna/Docusate Sodium 1 Tablet PO ×2 (06:24→18:13)
[2020-07-19] MEDS: Famotidine 20 MG Tablet PO ×2 (06:24→18:11)
[2020-07-19] MEDS: cycloBENZAPRine HCl 10 MG Tablet PO ×3 (06:24→22:06)
[2020-07-19] MEDS: DULoxetine Hcl 60 MG Capsule PO (06:24)
[2020-07-19] MEDS: Acetaminophen 500 MG Tablet 1000 MG PO ×3 (06:24→22:06)
[2020-07-19] MEDS: dexAMETHasone 4 MG Tablet 20 MG PO (08:56)
[2020-07-19] MEDS: LORazepam 0.5 MG Tablet PO (09:00)
[2020-07-19] MEDS: 0.9% Saline Lock 10 ML Syringe IV (13:05)
[2020-07-19] MEDS: HYDROmorphone 2 MG TABLET PO (13:22)
[2020-07-19 14:23] VITALS: BP 127/67; PULSE 89; RESP 16; TEMP 36.6; O2SAT 94
[2020-07-19] MEDS: Menthol/Lanolin/Calamine/Znox 113 GM Tube 1 APPLIC TOPICAL (16:33)
[2020-07-20] MEDS: HYDROmorphone 2 MG TABLET 4 MG PO ×6 (00:11→22:41)
[2020-07-20] MEDS: HYDROmorphone 2 MG TABLET PO ×2 (01:53→13:07)
[2020-07-20] MEDS: Haloperidol 1 MG Tablet PO ×4 (04:00→19:41)
[2020-07-20 05:00] VITALS: BP 124/76; PULSE 82; RESP 18; TEMP 36.6; O2SAT 95
[2020-07-20] MEDS: cycloBENZAPRine HCl 10 MG Tablet PO ×3 (05:12→21:54)
[2020-07-20] MEDS: Famotidine 20 MG Tablet PO ×2 (05:12→17:33)
[2020-07-20] MEDS: Acetaminophen 500 MG Tablet 1000 MG PO ×3 (05:12→21:54)
[2020-07-20] MEDS: DULoxetine Hcl 60 MG Capsule PO (05:12)
[2020-07-20] MEDS: Senna/Docusate Sodium 1 Tablet PO (05:16)
[2020-07-20] MEDS: Menthol/Lanolin/Calamine/Znox 113 GM Tube 1 APPLIC TOPICAL ×2 (05:17→17:32)
--- NOTE | 2020-07-20 06:44 | NURSING ---
duragesic noted to lt chest
[2020-07-20 06:54] LABS: Absolute Lymphocyte Count 0.18 X10^3/uL (0.83-4.51); Absolute Neutrophil Count 5.8 X10^3/uL (2.0-7.7); Basophil# 0.01 X10^3/uL; Basophil% 0.1 % (0-1); Eosinophil# 0.22 X10^3/uL; Eosinophils% 3.1 % (0-5); Hematocrit 30.7 % (37-47); Hemoglobin 9.7 g/dL (12.0-15.0); Lymphocyte # 0.18 X10^3/ul (4.0); Lymphocyte % 2.6 % (19-41); Mean Corp Hgb Conc 31.6 g/dL (32-36); Mean Corpuscular Hgb 30.8 pg (27.0-32.0); Mean Corpuscular Volume 97.5 fL (81-99); Mean Platelet Vol. 8.7 fl (6.2-12.0); Monocyte# 0.63 X10^3/uL; NRBC Flagged by Analyzer 0.3 % (0-5); Neutrophil % 82.9 % (47-70); POSITIVE DIFFERENTIAL YES; Platelet Count 114 K/mm3 (150-450); RBC Distribution Width CV 13.5 % (11.6-14.6); RBC Distribution Width SD 47.1 fl (35.1-43.9); Red Blood Count 3.15 M/mm3 (4.2-5.4)
[2020-07-20 06:55] LABS: Differential Indicated SCAN CRITERIA MET
[2020-07-20] MEDS: dexAMETHasone 4 MG Tablet 20 MG PO (07:41)
[2020-07-20] MEDS: LORazepam 0.5 MG Tablet PO (10:04)
[2020-07-20 10:10] VITALS: PULSE 101; RESP 18; O2SAT 97
[2020-07-20] MEDS: 0.9% Saline Lock 10 ML Syringe IV (10:32)
--- NOTE | 2020-07-20 12:00 | PCA ---
patient rang out stating that she need to use the BR and states that she may need to have 2 assembler utility buildings to assist because she feels weak this marketing program coordinator and another entered patient room patient was able to transfer from the bed ad walk to BR with walker with min contact assist. Patient was able to stand from the toilet using bar and walked back to bed using walker and able to put self back to bed independently. patient was asked if she would like to wash patient states no then asked for a shower at 7;45 a.m. during breakfast tray pass . Kaylee assisted with shower .
--- NOTE | 2020-07-20 12:01 | NURSING ---
VERIFIED DURAGESIC TO LEFT CHEST.
--- NOTE | 2020-07-20 13:18 | NURSING ---
PT VERY PAINFUL AFTER TAKING SHOWER THIS MORNING. SCHEDULED MEDS AND PRNS GIVEN. ICE APPLIED. PT STATED SHE WANTED DR. STEWART NOTIFIED OF HER BLOOD WORK AND REFUSED HER LOVENOX STATED SHE DID NOT FEEL COMFORTABLE TAKING IT. PT ALSO STATED HER SISTER WANTED HIM CALLED. PT ALSO STATED JUST GOT OFF THE PHONE WITH AND SHE MAY BE CALLING WITH NEW ORDERS FOR MEDS. RN AWARE.
[2020-07-20 14:16] VITALS: BP 134/79; PULSE 91; RESP 16; TEMP 36.3; O2SAT 93
[2020-07-21] MEDS: HYDROmorphone 2 MG TABLET 4 MG PO ×6 (00:22→20:32)
--- NOTE | 2020-07-21 00:57 | NURSING ---
wasted 100mcg Duragesic patch from lt chest, STACI wu. Applied new Duragesic to rt chest.
[2020-07-21] MEDS: Haloperidol 1 MG Tablet PO ×3 (03:36→20:31)
[2020-07-21 05:00] VITALS: BP 142/79; PULSE 96; RESP 18; TEMP 36.4; O2SAT 96
[2020-07-21] MEDS: cycloBENZAPRine HCl 10 MG Tablet PO (06:38)
[2020-07-21] MEDS: Acetaminophen 500 MG Tablet 1000 MG PO ×3 (06:38→20:31)
[2020-07-21] MEDS: Famotidine 20 MG Tablet PO ×2 (06:38→17:49)
[2020-07-21] MEDS: DULoxetine Hcl 60 MG Capsule PO (06:38)
[2020-07-21] MEDS: Menthol/Lanolin/Calamine/Znox 113 GM Tube 1 APPLIC TOPICAL ×2 (06:40→17:50)
--- NOTE | 2020-07-21 06:46 | NURSING ---
Pt called Dr. Rankin this morning d/t pain at 8, and 9-10 if moving, stating Dilaudid is not relieving it. N.O given for 15 mg Toradol X1 IM and 5mg Baclofen X1 PO. RN aware.
[2020-07-21] MEDS: Ketorolac 15 MG/ML Vial IM (06:54)
[2020-07-21] MEDS: 0.9% Saline Lock 10 ML Syringe IV ×2 (06:54→22:36)
[2020-07-21] MEDS: Baclofen 10 MG Tablet 5 MG PO (06:59)
[2020-07-21] MEDS: dexAMETHasone 4 MG Tablet 20 MG PO (08:30)
[2020-07-21 10:00] VITALS: PULSE 112; RESP 18; O2SAT 98
--- NOTE | 2020-07-21 10:22 | PN.PALL_ITS ---
Progress Note- Hospice Date: 07/21/20 Subjective: Overall pain is better and patient has been able to do more therapy. She is still getting the muscle spasms in her back though, and last night's was severe. Given a dose of Toradol and a dose of Baclofen and did have improvement in symptoms. We also had to increase her PRN Dilaudid dose from 2mg to 4mg earlier this weekend. Cold helps sometimes and sometimes makes it worse. Hasn't tried heat. A magnesium level was normal. Pain is 10/10 during the spasms. Last BM 07/20 and was a bit watery. On scheduled Senna and Miralax. This AM's doses were held. Radiation therapy is complete. Dr. Nichols had told her chemo could probably start when she returns home. She feels therapy is going well and hopes to return home soon. Her sister can more in with her for awhile to help. At this point, Deepa feels she would be ok to transfer herself some of the time, but at other times she is weaker and would need help. No nausea the past several days. Objective: Vital Signs Temp 97.5 F L 07/21/20 05:00 Pulse 96 07/21/20 05:00 Resp 18 07/21/20 05:00 BP 142/79 H 07/21/20 05:00 Pulse Ox 96 07/21/20 05:00 Intake & Output 07/19/20 07/20/20 07/21/20 23:59 23:59 23:59 Intake Total 840 / 840 480 / 480 240 / 240 Output Total 4 / 4 Balance 840 / 840 476 / 476 240 / 240 Intake: Oral 840 / 840 480 / 480 240 / 240 Output: Urine 4 / 4 Other: Incontinent Amount Moderate Moderate Number of Bowel Movements 1 Current Medications Acetaminophen (Tylenol) 1,000 mg PO TID [facility] Last Admin: 07/21/20 06:38 Dose: 1,000 mg Documented by: Al Hydroxide/Mg Hydroxide (Mylanta Ii) 30 ml PO Q6H PRN PRN PRN Reason: INDIGESTION Last Admin: 07/06/20 18:35 Dose: 30 ml Documented by: Bisacodyl (Dulcolax) 10 mg RECTAL DAILY PRN PRN PRN Reason: Constipation Last Admin: 07/07/20 20:19 Dose: 10 mg Documented by: Calamine/Phenol (Calmoseptine Ointment) 1 applic TOPICAL 0600,1800 [facility]; Protocol Last Admin: 07/21/20 06:40 Dose: 1 applicatio Documented by: Dexamethasone (Decadron) 20 mg PO DAILY@0800 [facility] Last Admin: 07/21/20 08:30 Dose: 20 mg Documented by: Diazepam (Valium) 2 mg PO TID PRN PRN PRN Reason: SPASMS Duloxetine HCl (Cymbalta) 60 mg PO DAILY [facility] Last Admin: 07/21/20 06:38 Dose: 60 mg Documented by: Enoxaparin Sodium (Lovenox) 40 mg SC DAILY [facility] Last Admin: 07/21/20 08:28 Dose: Not Given Documented by: Famotidine (Pepcid) 20 mg PO BID [facility] Last Admin: 07/21/20 06:38 Dose: 20 mg Documented by: Fentanyl (Duragesic Patch) 100 mcg TRANSDERM. Q3D [facility] Last Admin: 07/21/20 00:55 Dose: 100 mcg Documented by: Haloperidol (Haldol) 1 mg PO Q8H [facility] Hydrocortisone (Hytone) 1 applic TOPICAL 4X/DAY PRN PRN Reason: hemorrhoids Hydromorphone HCl (Dilaudid Tablet) 4 mg PO Q3H PRN PRN PRN Reason: Pain Score 6-10 Last Admin: 07/21/20 03:37 Dose: 4 mg Documented by: Hydromorphone HCl (Dilaudid Tablet) 4 mg PO Q6H [facility] Last Admin: 07/21/20 06:37 Dose: 4 mg Documented by: Ketorolac Tromethamine (Toradol (Bkc)) 15 mg IV Q8H PRN PRN PRN Reason: Pain Score 6-10 Stop: 07/26/20 10:18 Meclizine HCl (Antivert) 12.5 mg PO 4X/DAY PRN PRN PRN Reason: nausea Last Admin: 07/14/20 04:13 Dose: 12.5 mg Documented by: Methocarbamol (Robaxin) 500 mg PO TID [facility] Ondansetron HCl (Zofran) 4 mg IV Q6H PRN PRN PRN Reason: NAUSEA/VOMITING Last Admin: 07/18/20 11:09 Dose: 4 mg Documented by: Polyethylene Glycol (Miralax) 17 gm PO DAILY PRN PRN Reason: Constipation Senna/Docusate Sodium (Senokot-S, Veronique-Colace) 1 tablet PO DAILY [facility] Senna/Docusate Sodium (Senokot-S, Veronique-Colace) 1 tablet PO DAILY PRN PRN PRN Reason: CONSTIPATION Sodium Chloride () 10 - 40 ml IV UD PRN PRN Reason: SALINE FLUSH Last Admin: 07/21/20 06:54 Dose: 20 ml Documented by: - Physical Exam General: Alert, Well developed, Well nourished HEENT: - - pupils 3-4mm bilaterally Psych/Mental Status: Normal Affect, Appropriate Assessment/Plan All Active Problems (Last Reviewed 06/29/20 @ 03:[address] Allan Yost MD) Acute back pain (Acute) Thoracic vertebral fracture (Acute) Acute renal injury (Acute) Uncontrolled pain (Acute) Debility (Acute) Intractable back pain (Acute) 55 year old with newly diagnosed MM and significant back pain from compression fracture, bony involvement by myeloma, and resultant muscle spasms 1. BACK PAIN - Improved since restarting the dexamethasone 20mg. Would continue that dose for now, with plans to taper down once pain relief from XRT occurs - would anticipate that in the next two weeks. Continue fentanyl 100mcg/hr patches q72hrs and Dilaudid 4mg q6h scheduled, will need close observation and will back down as she starts to get some pain relief from the XRT. Still having significant pain, much of it seems muscular - possibly spasms. Potassium and magnesium are normal. Baclofen and Flexeril have not been excessively helpful, will switch to methocarbamol 500mg TID to start but can increase if tolerated and if needed. PRN Dilaudid increased over the weekend. It's possible that some of the increase is from tapering off Lyrica, but plan to make these changes first and will consider restarting Lyrica later this week if not improving. Kpad (heat) PRN. Add PRN Valium for muscle spasms (and anxiety - see #4 below) 2. CONSTIPATION DUE TO OPIOIDS - stools too loose with Senna-S 1 tab BID and Miralax. Switched Miralax to PRN and decrease Senna-S to 1 tab daily and 1 tab daily PRN if no BM in 2 days 3. NAUSEA - multifactorial, but partly due to opioid-induced nausea, seems to have a vestibular component as well. Improved significantly with change of haloperidol from q8h to q6h earlier this stay, but has been on opioids long enough that the nausea is likely to have resolved from that. Taper haloperidol from 1g q6h to 1mg q8h, will continue that dose for 1-2 weeks and then taper further if tolerating 4. ANXIETY - XRT is finished, D/C lorazepam. Start Valium PRN which could help both the anxiety and the muscle spasms. 5. MENTAL FOGGINESS - may be drug related, on a lot of meds that could contribute. Adding dexamethasone may help. Tapered off of Lyrica. Could trial Ritalin if needed. Will call and update sister Natalia again at patient's request.
[2020-07-21] MEDS: diazePAM 2 MG Tablet PO (12:18)
[2020-07-21 13:38] VITALS: BP 134/82; PULSE 94; RESP 16; TEMP 36.1; O2SAT 98
[2020-07-21] MEDS: Methocarbamol 500 MG Tablet PO ×2 (14:05→20:31)
--- NOTE | 2020-07-21 16:11 | NURSING ---
Pt walked around unit without complication.
--- NOTE | 2020-07-21 16:14 | CHAPLAIN ---
Type of Pastoral Visit ___ Initial Visit _x__ Follow-up Visit ___ On-call Visit ___ General Patient Visit ___ Spiritual Assessment ___ Family Conference ___ Bereavement ___ Rapid Response ___ Code Blue ___ Other (describe below) Pastoral Care Referral From _x__ Patient ___ Family ___ Nurse ___ Physician ___ Business Control Specialist ___ Radio Communication Coordinator ___ Other (describe below) Sacrament/Intervention _x__ Active listening ___ Anointing ___ Mosque ___ Bereavement ___ Communion ___ Sweta exploration ___ ___ Life review _x__ Prayer ___ Reconciliation ___ Sacrament of Sick _x__ Supportive presence ___ Wedding ___ Other (describe below) Pastoral Comments
[2020-07-21] MEDS: Ketorolac 15 MG/ML Vial IV (22:36)
[2020-07-22] MEDS: HYDROmorphone 2 MG TABLET 4 MG PO ×4 (00:06→18:08)
--- NOTE | 2020-07-22 04:45 | NURSING ---
Duragesic patch noted to right upper chest.
[2020-07-22] MEDS: Acetaminophen 500 MG Tablet 1000 MG PO ×3 (04:54→20:38)
[2020-07-22] MEDS: Famotidine 20 MG Tablet PO ×2 (04:54→18:05)
[2020-07-22] MEDS: Haloperidol 1 MG Tablet PO ×3 (04:54→20:38)
[2020-07-22] MEDS: Methocarbamol 500 MG Tablet PO ×3 (04:54→20:38)
[2020-07-22] MEDS: DULoxetine Hcl 60 MG Capsule PO (04:55)
[2020-07-22] MEDS: Menthol/Lanolin/Calamine/Znox 113 GM Tube 1 APPLIC TOPICAL ×2 (04:57→18:06)
[2020-07-22 05:00] VITALS: BP 134/81; PULSE 98; RESP 16; TEMP 36.2; O2SAT 98
[2020-07-22] MEDS: dexAMETHasone 4 MG Tablet 20 MG PO (08:26)
[2020-07-22] MEDS: 0.9% Saline Lock 10 ML Syringe IV ×2 (11:54→20:42)
--- NOTE | 2020-07-22 11:56 | NURSING ---
PT REFUSED NOON DILAUDID DO TO DIZZINESS. RD PAIN AT A [facility]. OFFERED OTHER PAIN MED PT REFUSED AT THIS TIME.
[2020-07-22 13:57] VITALS: BP 144/94; PULSE 105; RESP 16; TEMP 36.1; O2SAT 93
--- NOTE | 2020-07-22 15:44 | NURSING ---
NOTHING TO UPDATE AT THIS TIME.
--- NOTE | 2020-07-22 16:09 | NURSING ---
VERIFIED DURAGESIC PATCH TO RIGHT CHEST.
--- NOTE | 2020-07-22 17:32 | CASEMGMT ---
Social Work Met with patient about DC plans. Pt requesting to DC home 07/25. IDT agreeable. Pt would like [facility]. Referral made to [facility] PT/OT/SN/SW. pt requesting w/c. Referral made to [facility]. Left message with [facility] of DC date. Sister to transport home. Plan: DC home with support 07/25 with [facility] PT/OT/SN/SW, [facility] - w/c Sarah Lynn MSW VOLCANOLOGY PROFESSOR
--- NOTE | 2020-07-22 19:34 | PCM.DC ---
- Discharge Diagnoses Current Active Problems: Current Active and Chronic Problems (Last Reviewed 06/29/20 @ 03:[address] Allan Yost MD) Debility (Acute) Intractable back pain (Acute) Compression fracture of T11 vertebra (Chronic) Multiple myeloma (Chronic) Muscle spasm (Chronic) You will use the following diet at home:: No restrictions, Regular Your food should be the consistency of: Regular Your liquids should be the consistency of: Regular/Thin Discharge Activity: Return to Normal Activity, May Shower, Use Walker Weight Bearing Status: Weight bearing as tolerated Call your doctor if you observe: Fever of 101 or Higher, Inability to urinate, Inability to have a bowel movement, Shortness of breath, Chest pain, Uncontrolled pain Allergies/Adverse Reactions: Allergies latex Allergy (Mild, Verified 06/28/20 21:50) rash Penicillins Allergy (Verified 06/28/20 21:50) Unknown adhesive tape Adverse Reaction (Verified 06/28/20 21:50) Rash Medications to take at Discharge [Hydrocortisone 2.5%/lidocaine 5% ointment (compound)] See Rx Instructions .ROUTE .MEDSUPPLY 06/28/20 Acetaminophen [Tylenol] 1,000 mg PO TID tab 07/22/20 Bisacodyl [Dulcolax] 10 mg RECTAL DAILY PRN PRN #30 suppos. 07/22/20 Dexamethasone [Decadron] 20 mg PO DAILY@0800 #150 tab 07/22/20 Diazepam [Valium] 2 mg PO TID PRN PRN #90 tablet 07/22/20 Duloxetine Hcl [Cymbalta] 60 mg PO DAILY #30 cap 07/22/20 Famotidine [Pepcid] 20 mg PO BID #60 tab 07/22/20 HYDROmorphone tablet [Dilaudid] 4 mg PO Q3H PRN PRN 7 Days #112 tablet 07/22/20 HYDROmorphone tablet [Dilaudid] 4 mg PO Q6H 7 Days #56 tablet 07/22/20 Haloperidol [Haldol] 1 mg PO Q8H #90 tab 07/22/20 Mag Hydrox/Al Hydrox/Simeth [Mylanta II] 30 ml PO Q6H PRN PRN udc 07/22/20 Menthol/Lanolin/Calamine/Znox [Calmoseptine Ointment] 1 applic TOPICAL 0600,1800 tube 07/22/20 Methocarbamol [Robaxin] 500 mg PO TID #90 tab 07/22/20 Polyethylene Glycol 3350 [Miralax] 17 gm PO BID #30 packet 07/22/20 Senna/Docusate Sodium [Senokot-S] 1 tab PO DAILY #30 tab 07/22/20 fentaNYL patch [Duragesic Patch] 100 mcg TRANSDERM. Q3D 7 Days #2 patch 07/22/20 The following prescriptions were given: Duloxetine Hcl [Cymbalta] 60 mg PO DAILY #30 cap Transmission Status: Pending to [facility]/pharmacy #[id number] Dexamethasone [Decadron] 20 mg PO DAILY@0800 #150 tab Transmission Status: Pending to [facility]/pharmacy #[id number] HYDROmorphone tablet [Dilaudid] 4 mg PO Q3H PRN PRN 7 Days #112 tablet PRN Reason: Pain Score 6-10 Transmission Status: Received by [facility]/pharmacy #[id number] HYDROmorphone tablet [Dilaudid] 4 mg PO Q6H 7 Days #56 tablet Transmission Status: Received by [facility]/pharmacy #[id number] Bisacodyl [Dulcolax] 10 mg RECTAL DAILY PRN PRN #30 suppos. PRN Reason: Constipation Transmission Status: Pending to [facility]/pharmacy #[id number] fentaNYL patch [Duragesic Patch] 100 mcg TRANSDERM. Q3D 7 Days #2 patch Transmission Status: Received by [facility]/pharmacy #[id number] Haloperidol [Haldol] 1 mg PO Q8H #90 tab Transmission Status: Pending to [facility]/pharmacy #[id number] Polyethylene Glycol 3350 [Miralax] 17 gm PO BID #30 packet Transmission Status: Pending to [facility]/pharmacy #[id number] Famotidine [Pepcid] 20 mg PO BID #60 tab Transmission Status: Pending to [facility]/pharmacy #[id number] Methocarbamol [Robaxin] 500 mg PO TID #90 tab Transmission Status: Pending to [facility]/pharmacy #[id number] Senna/Docusate Sodium [Senokot-S] 1 tab PO DAILY #30 tab Transmission Status: Pending to [facility]/pharmacy #[id number] Diazepam [Valium] 2 mg PO TID PRN PRN #90 tablet PRN Reason: Spasms Transmission Status: Received by [facility]/pharmacy #[id number] Primary Care Physician: Pia Gambino MD [Primary Care Provider] - Please follow up with your Primary Care Physician in: 1 week. Test Results: Test results from this visit will be discussed in further detail at your follow-up appointment, if applicable. Please Follow Up With: Antoine Nichols MD When: 3 days. Please Follow Up With: Rolando Larson DO When: As scheduled. [facility] When: 3 days. Proposed Discharge Date: 07/25/20
--- NOTE | 2020-07-22 19:36 | DS.PCM_ITS ---
Discharge Date and Diagnosis - Problem List Patient Problems: Active and Suspected Problems (Last Reviewed 06/29/20 @ 03:[address] Allan Yost MD) Debility (Acute) Intractable back pain (Acute) Date of Admission: 06/28/20 Date of Discharge: 07/25/20 - Primary Discharge Diagnosis Acute Problems: Active Problems (Last Reviewed 06/29/20 @ 03:[address] Allan Yost MD) Debility (Acute) Intractable back pain (Acute) - Secondary Discharge Diagnosis Chronic Problems: Chronic Problems (Last Reviewed 06/29/20 @ 03:[address] Allan Yost MD) Lumbar compression fracture (Chronic) recent history of kyphoplasty, due to multiple myeloma Compression fracture of T11 vertebra (Chronic) Multiple myeloma (Chronic) Muscle spasm (Chronic) Hemorrhoids (Chronic) Pain of sternum (Chronic) Pancreatitis (Chronic) Obesity (Chronic) Former tobacco use (Chronic) Renal cell cancer (Chronic) Iron deficiency anemia (Chronic) History of nausea and vomiting (Chronic) History of abdominal pain (Chronic) Hospital Course and Treatment Imaging Results: 07/03/20 16:56 Diet: Regular - General Food consistency:: Regular Liquid Consistency:: Regular/Thin Clinical Impression(s) from Imaging Studies Chest X-Ray 07/06/20 16:54 IMPRESSION: 1. No airspace consolidation. Trace pleural effusions. Electronically Signed: Anthony Salguero MD ([place]) at 17:31 EDT , Service support , KUB X-Ray 07/14/20 14:10 IMPRESSION: Non-obstructive bowel gas pattern. at 0022 Reported and signed by: Rose Hilario DO Electronically Signed: Rose Hilario DO at 0:20 EDT Tel , Service support , Operations: None Procedures: None Summary of Care Provided: The patient is a 55 year old Female with below past medical history hospitalized for intractable pain secondary to pathologic compression fractures from multiple myeloma, admitted to [facility] with debility, here for rehabilitation, strengthening, prior to discharge home alone. Resident starting radiation therapy 07/07/20. Palliative care following. Dr. Nichols to start chemotherapy as outpatient, then stem cell transplant. Discharge home with support (sister), [facility] PT/OT/SN/SW, [employer] wheelchair. Patient Problems: Active and Suspected Problems (Last Reviewed 06/29/20 @ 03:[address] Allan Yost MD) Debility (Acute) Intractable back pain (Acute) - Physical Exam Vitals/I&O's: Vital Signs Temp Pulse Resp BP Pulse Ox 97.0 F L 105 H 16 144/94 H 93 07/22/20 13:57 07/22/20 13:57 07/22/20 13:57 07/22/20 13:57 07/22/20 13:57 Oxygen Delivery Method Room Air Weight: 87.317 kg Body Mass Index (BMI) 591286.2 Intake and Output for Last 24 Hours 07/20/20 07/21/20 07/22/20 23:59 23:59 23:59 Intake Total 480 / 480 600 / 600 720 / 720 Output Total 4 / 4 Balance 476 / 476 600 / 600 720 / 720 Current Medications Acetaminophen (Tylenol) 1,000 mg PO TID DANELLE Last Admin: 07/22/20 14:23 Dose: 1,000 mg Documented by: Al Hydroxide/Mg Hydroxide (Mylanta Ii) 30 ml PO Q6H PRN PRN PRN Reason: INDIGESTION Last Admin: 07/06/20 18:35 Dose: 30 ml Documented by: Bisacodyl (Dulcolax) 10 mg RECTAL DAILY PRN PRN PRN Reason: Constipation Last Admin: 07/07/20 20:19 Dose: 10 mg Documented by: Calamine/Phenol (Calmoseptine Ointment) 1 applic TOPICAL 0600,1800 DANELLE; Protocol Last Admin: 07/22/20 18:06 Dose: 1 applicatio Documented by: Dexamethasone (Decadron) 20 mg PO DAILY@0800 [facility]AN[facility]LE Last Admin: 07/22/20 08:26 Dose: 20 mg Documented by: Diazepam (Valium) 2 mg PO TID PRN PRN PRN Reason: SPASMS Last Admin: 07/21/20 12:18 Dose: 2 mg Documented by: Duloxetine HCl (Cymbalta) 60 mg PO DAILY [facility] Last Admin: 07/22/20 04:55 Dose: 60 mg Documented by: Enoxaparin Sodium (Lovenox) 40 mg SC DAILY [facility] Last Admin: 07/22/20 04:56 Dose: Not Given Documented by: Famotidine (Pepcid) 20 mg PO BID [facility] Last Admin: 07/22/20 18:05 Dose: 20 mg Documented by: Fentanyl (Duragesic Patch) 100 mcg TRANSDERM. Q3D [facility] Last Admin: 07/21/20 00:55 Dose: 100 mcg Documented by: Haloperidol (Haldol) 1 mg PO Q8H [facility] Last Admin: 07/22/20 11:48 Dose: 1 mg Documented by: Hydrocortisone (Hytone) 1 applic TOPICAL 4X/DAY PRN PRN Reason: hemorrhoids Hydromorphone HCl (Dilaudid Tablet) 4 mg PO Q3H PRN PRN PRN Reason: Pain Score 6-10 Last Admin: 07/22/20 08:25 Dose: 4 mg Documented by: Hydromorphone HCl (Dilaudid Tablet) 4 mg PO Q6H [facility] Last Admin: 07/22/20 18:08 Dose: 4 mg Documented by: Ketorolac Tromethamine (Toradol (Bkc)) 15 mg IV Q8H PRN PRN PRN Reason: Pain Score 6-10 Stop: 07/26/20 10:19 Last Admin: 07/21/20 22:36 Dose: 15 mg Documented by: Meclizine HCl (Antivert) 12.5 mg PO 4X/DAY PRN PRN PRN Reason: nausea Last Admin: 07/14/20 04:13 Dose: 12.5 mg Documented by: Methocarbamol (Robaxin) 500 mg PO TID [facility] Last Admin: 07/22/20 14:22 Dose: 500 mg Documented by: Ondansetron HCl (Zofran) 4 mg IV Q6H PRN PRN PRN Reason: NAUSEA/VOMITING Last Admin: 07/18/20 11:09 Dose: 4 mg Documented by: Polyethylene Glycol (Miralax) 17 gm PO DAILY PRN PRN PRN Reason: Constipation Senna/Docusate Sodium (Senokot-S, Veronique-Colace) 1 tablet PO DAILY [facility] Last Admin: 07/22/20 04:56 Dose: Not Given Documented by: Senna/Docusate Sodium (Senokot-S, Veronique-Colace) 1 tablet PO DAILY PRN PRN PRN Reason: CONSTIPATION Sodium Chloride () 10 - 40 ml IV UD PRN PRN Reason: SALINE FLUSH Last Admin: 07/22/20 11:54 Dose: 10 ml Documented by: Discharge Diet: No Restrictions Discharge Activity: Return to Normal Activity, May Shower, Use Walker Weight Bearing Status: Weight bearing as tolerated Call your doctor if you observe: Fever of 101 or Higher, Inability to urinate, Inability to have a bowel movement, Shortness of breath, Chest pain, Uncontrolled pain Home Medications: Medications to take at Discharge [Hydrocortisone 2.5%/lidocaine 5% ointment (compound)] See Rx Instructions .ROUTE .MEDSUPPLY 06/28/20 Acetaminophen [Tylenol] 1,000 mg PO TID tab 07/22/20 Bisacodyl [Dulcolax] 10 mg RECTAL DAILY PRN PRN #30 suppos. 07/22/20 Dexamethasone [Decadron] 20 mg PO DAILY@0800 #150 tab 07/22/20 Diazepam [Valium] 2 mg PO TID PRN PRN #90 tablet 07/22/20 Duloxetine Hcl [Cymbalta] 60 mg PO DAILY #30 cap 07/22/20 Famotidine [Pepcid] 20 mg PO BID #60 tab 07/22/20 HYDROmorphone tablet [Dilaudid] 4 mg PO Q3H PRN PRN 7 Days #112 tablet 07/22/20 HYDROmorphone tablet [Dilaudid] 4 mg PO Q6H 7 Days #56 tablet 07/22/20 Haloperidol [Haldol] 1 mg PO Q8H #90 tab 07/22/20 Mag Hydrox/Al Hydrox/Simeth [Mylanta II] 30 ml PO Q6H PRN PRN udc 07/22/20 Menthol/Lanolin/Calamine/Znox [Calmoseptine Ointment] 1 applic TOPICAL 0600,1800 tube 07/22/20 Methocarbamol [Robaxin] 500 mg PO TID #90 tab 07/22/20 Polyethylene Glycol 3350 [Miralax] 17 gm PO BID #30 packet 07/22/20 Senna/Docusate Sodium [Senokot-S] 1 tab PO DAILY #30 tab 07/22/20 fentaNYL patch [Duragesic Patch] 100 mcg TRANSDERM. Q3D 7 Days #2 patch 07/22/20 Following Prescriptions Were Given to Patient: Duloxetine Hcl [Cymbalta] 60 mg PO DAILY #30 cap Transmission Status: Pending to [facility]/pharmacy #[id number] Dexamethasone [Decadron] 20 mg PO DAILY@0800 #150 tab Transmission Status: Pending to [facility]/pharmacy #[id number] HYDROmorphone tablet [Dilaudid] 4 mg PO Q3H PRN PRN 7 Days #112 tablet PRN Reason: Pain Score 6-10 Transmission Status: Received by [facility]acy #[id number] HYDROmorphone tablet [Dilaudid] 4 mg PO Q6H 7 Days #56 tablet Transmission Status: Received by [facility]pharmacy #[id number] Bisacodyl [Dulcolax] 10 mg RECTAL DAILY PRN PRN #30 suppos. PRN Reason: Constipation Transmission Status: Pending to [facility]acy #[id number] fentaNYL patch [Duragesic Patch] 100 mcg TRANSDERM. Q3D 7 Days #2 patch Transmission Status: Received by [facility]acy #[id number] Haloperidol [Haldol] 1 mg PO Q8H #90 tab Transmission Status: Pending to [facility]acy #[id number] Polyethylene Glycol 3350 [Miralax] 17 gm PO BID #30 packet Transmission Status: Pending to [facility]acy #[id number] Famotidine [Pepcid] 20 mg PO BID #60 tab Transmission Status: Pending to [facility]acy #[id number] Methocarbamol [Robaxin] 500 mg PO TID #90 tab Transmission Status: Pending to [facility]acy #[id number] Senna/Docusate Sodium [Senokot-S] 1 tab PO DAILY #30 tab Transmission Status: Pending to [facility]acy #[id number] Diazepam [Valium] 2 mg PO TID PRN PRN #90 tablet PRN Reason: Spasms Transmission Status: Received by [facility]/pharmacy #[id number] Primary Care Physician: Pia Gambino MD [Primary Care Provider] - Please follow up with your Primary Care Physician in: 1 week. Please Follow Up With: Antoine Nichols MD When: 3 days. Please Follow Up With: Marsha,Rolando, DO When: As scheduled. Please Follow Up With: Pallative Care When: 3 days. Disposition: Home with Home Health Minutes spent on discharge:: 35 Patient Condition:: Stable Medical Necessity - Tobacco Use Smoking Status: Former smoker Tobacco Use: Non-smoker Meaningful Use Info Meaningful Use Diagnoses (Choose all that apply): None applicable
[2020-07-22 20:40] VITALS: PULSE 89; RESP 16; O2SAT 95
[2020-07-23] MEDS: HYDROmorphone 2 MG TABLET 4 MG PO ×5 (00:36→17:25)
--- NOTE | 2020-07-23 03:00 | NURSING ---
Duragesic patch noted to right upper chest.
[2020-07-23 05:00] VITALS: BP 165/92; PULSE 91; RESP 16; TEMP 36.7; O2SAT 96
[2020-07-23] MEDS: Acetaminophen 500 MG Tablet 1000 MG PO ×3 (05:12→20:13)
[2020-07-23] MEDS: Haloperidol 1 MG Tablet PO ×3 (05:13→20:13)
[2020-07-23] MEDS: DULoxetine Hcl 60 MG Capsule PO (05:13)
[2020-07-23] MEDS: Famotidine 20 MG Tablet PO ×2 (05:13→17:26)
[2020-07-23] MEDS: diazePAM 2 MG Tablet PO ×2 (05:13→22:24)
[2020-07-23] MEDS: Methocarbamol 500 MG Tablet PO ×3 (05:13→20:13)
[2020-07-23] MEDS: Senna/Docusate Sodium 1 Tablet PO (05:13)
[2020-07-23] MEDS: 0.9% Saline Lock 10 ML Syringe IV ×2 (05:17→20:15)
[2020-07-23] MEDS: Menthol/Lanolin/Calamine/Znox 113 GM Tube 1 APPLIC TOPICAL ×2 (05:17→17:28)
[2020-07-23] MEDS: dexAMETHasone 4 MG Tablet 20 MG PO (07:46)
--- NOTE | 2020-07-23 09:56 | NURSING ---
PT STATING PAIN 03/19. NOTHING DUE AT THIS TIME. OFFERED PRN PAIN MED AND GAVE DRUG OPTIONS. PT DECLINED TORADOL BUT DID WANT DILAUDID BUT ONLY 2MG. DILAUDID 2MG GIVEN. RN AWARE.
--- NOTE | 2020-07-23 12:22 | CASEMGMT ---
Addendum entered by Sarah Lynn 07/23/20 13:13: Spoke with pt whom stated family is not ready for pt to DC home until 07/25. Original Note: Social Work Pt requesting to DC home 07/24. IDT agreeable. Contacted [facility] - SOC 07/26. Contacted [employer] - can deliver to room prior to DC. Sarah Lynn, JIL BARBERW
[2020-07-23 13:50] VITALS: BP 159/93; PULSE 102; RESP 18; TEMP 36.2; O2SAT 93
[2020-07-24] MEDS: HYDROmorphone 2 MG TABLET 4 MG PO ×6 (00:07→17:49)
--- NOTE | 2020-07-24 00:12 | NURSING ---
Duragesic patch removed from right chest and new patch to right shoulder. Old patch wasted with Dio Cox.
[2020-07-24] MEDS: Haloperidol 1 MG Tablet PO ×3 (02:26→22:08)
[2020-07-24 06:54] VITALS: BP 153/96; PULSE 100; RESP 17; TEMP 37; O2SAT 95
[2020-07-24] MEDS: Acetaminophen 500 MG Tablet 1000 MG PO ×3 (06:59→22:09)
[2020-07-24] MEDS: Famotidine 20 MG Tablet PO ×2 (07:00→17:51)
[2020-07-24] MEDS: DULoxetine Hcl 60 MG Capsule PO (07:00)
[2020-07-24] MEDS: Methocarbamol 500 MG Tablet PO ×3 (07:00→22:10)
[2020-07-24] MEDS: Menthol/Lanolin/Calamine/Znox 113 GM Tube 1 APPLIC TOPICAL (07:02)
[2020-07-24] MEDS: dexAMETHasone 4 MG Tablet 20 MG PO (07:58)
--- NOTE | 2020-07-24 10:33 | PCM.PN.PAL ---
Progress Note- Hospice Date: 07/24/20 Subjective: Pain better overall but still significant. Taking the 2mg PRN dose of hydromorphone because the 4mg dose makes her feel a little disconnected. Still having muscle spasms, often a movement sets them off. The Valium helps but makes her tired. These are happening more often since we discontinued the Lyrica because we didn't think it was helping anything and we were worried that it was contributing to her sleepiness. Heat does help the muscle spasms as well. Going home tomorrow, her sister will be staying with her for a while to help. Hoping to start chemo soon for the myeloma. Had a BM yesterday and today, taking Senna daily, although skips doses here and there if it seems too much. Objective: Vital Signs Temp 98.6 F 07/24/20 06:54 Pulse 100 07/24/20 06:54 Resp 17 07/24/20 06:54 BP 153/96 H 07/24/20 06:54 Pulse Ox 95 07/24/20 06:54 Intake & Output 07/22/20 07/23/20 07/24/20 23:59 23:59 23:59 Intake Total 840 / 840 780 / 780 240 / 240 Balance 840 / 840 780 / 780 240 / 240 Weight: 86.183 kg Intake: Oral 840 / 840 780 / 780 240 / 240 Current Medications Acetaminophen (Tylenol) 1,000 mg PO TID [facility] Last Admin: 07/24/20 06:59 Dose: 1,000 mg Documented by: Al Hydroxide/Mg Hydroxide (Mylanta Ii) 30 ml PO Q6H PRN PRN PRN Reason: INDIGESTION Last Admin: 07/06/20 18:35 Dose: 30 ml Documented by: Bisacodyl (Dulcolax) 10 mg RECTAL DAILY PRN PRN PRN Reason: Constipation Last Admin: 07/07/20 20:19 Dose: 10 mg Documented by: Calamine/Phenol (Calmoseptine Ointment) 1 applic TOPICAL 0600,1800 [facility]; Protocol Last Admin: 07/24/20 07:02 Dose: 1 applicatio Documented by: Dexamethasone (Decadron) 20 mg PO DAILY@0800 [facility] Last Admin: 07/24/20 07:58 Dose: 20 mg Documented by: Diazepam (Diazepam 2 Mg Tablet) 1 - 2 mg PO TID PRN PRN PRN Reason: SPASMS Duloxetine HCl (Cymbalta) 60 mg PO DAILY [facility] Last Admin: 07/24/20 07:00 Dose: 60 mg Documented by: Enoxaparin Sodium (Lovenox) 40 mg SC DAILY [facility] Last Admin: 07/24/20 07:01 Dose: Not Given Documented by: Famotidine (Pepcid) 20 mg PO BID [facility] Last Admin: 07/24/20 07:00 Dose: 20 mg Documented by: Fentanyl (Duragesic Patch) 100 mcg TRANSDERM. Q3D [facility] Last Admin: 07/24/20 00:07 Dose: 100 mcg Documented by: Haloperidol (Haldol) 1 mg PO Q8H [facility] Last Admin: 07/24/20 02:26 Dose: 1 mg Documented by: Hydrocortisone (Hytone) 1 applic TOPICAL 4X/DAY PRN PRN Reason: hemorrhoids Hydromorphone HCl (Dilaudid Tablet) 4 mg PO Q6H [facility] Last Admin: 07/24/20 06:58 Dose: 4 mg Documented by: Hydromorphone HCl (Hydromorphone 2 Mg Tablet) 2 - 4 mg PO Q3H PRN PRN PRN Reason: Pain Score 1-10 Ketorolac Tromethamine (Toradol (Bkc)) 15 mg IV Q8H PRN PRN PRN Reason: Pain Score 6-10 Stop: 07/26/20 10:19 Last Admin: 07/21/20 22:36 Dose: 15 mg Documented by: Methocarbamol (Robaxin) 500 mg PO TID [facility] Last Admin: 07/24/20 07:00 Dose: 500 mg Documented by: Polyethylene Glycol (Miralax) 17 gm PO DAILY PRN PRN PRN Reason: Constipation Pregabalin (Pregabalin 75 Mg Capsule) 75 mg PO BID [facility] Senna/Docusate Sodium (Senokot-S, Veronique-Colace) 1 tablet PO DAILY [facility] Last Admin: 07/24/20 07:01 Dose: Not Given Documented by: Senna/Docusate Sodium (Senokot-S, Veronique-Colace) 1 tablet PO DAILY PRN PRN PRN Reason: CONSTIPATION Sodium Chloride () 10 - 40 ml IV UD PRN PRN Reason: SALINE FLUSH Last Admin: 07/23/20 20:15 Dose: 10 ml Documented by: - Physical Exam General: Alert, Oriented x3, Cooperative HEENT: - - Pupils 3-4mm bilaterally Oral: Moist Mucosa Extremities: No edema Assessment/Plan All Active Problems (Last Reviewed 06/29/20 @ 03:[address] Allan Yost MD) Acute back pain (Acute) Thoracic vertebral fracture (Acute) Acute renal injury (Acute) Uncontrolled pain (Acute) Debility (Acute) Intractable back pain (Acute) 55 year old with newly diagnosed MM and significant back pain from compression fracture, bony involvement by myeloma, and resultant muscle spasms 1. BACK PAIN - frequency of spasms has increased since we stopped the Lyrica - will restart it. Continue other measures. Plan to taper down on opioids and dexamethasone as an outpatient 2. CONSTIPATION DUE TO OPIOIDS - continue Miralax to PRN and decrease Senna-S to 1 tab daily and 1 tab daily PRN if no BM in 2 days 3. NAUSEA - multifactorial, but partly due to opioid-induced nausea, seems to have a vestibular component as well. Continue haloperidol from 1mg q8h, will continue that dose for 1-2 weeks and then taper further if tolerating. Hasn't used the meclizine so I discontinued it. D/C IV Zofran, hasn't needed 4. ANXIETY - Valium PRN anxiety and the muscle spasms. 5. MENTAL FOGGINESS - improving, may be drug related, on a lot of meds that could contribute. Could trial Ritalin if needed. Recommendations for palliative meds for discharge: dexamethasone 20mg (=five 4mg tablets) once a day SCHEDULED - take in the morning with breakfast (will taper as outpatient) - steroid (strong anti-inflammatory) Tylenol 1000mg three times a day SCHEDULED Lyrica (pregabalin) 75mg twice a day SCHEDULED - adjuvant pain medicine, seemed to help with the muscle spasms methocarbamol (Robaxin) 500mg three times a day SCHEDULED - muscle relaxer diazepam (Valium) 1-2mg three times a day NEEDED for muscle spasms or anxiety haloperidol 1mg three times a day SCHEDULED (will taper as outpatient) - anti-nausea medication fentanyl patches 100mcg/hr one patch every three days SCHEDULED - opioid pain medication hydromorphone (Dilaudid) 4mg (two 2mg tablets) every 6 hours SCHEDULED and 2-4mg (1-2 tablets) every three hours NEEDED - opioid pain medication duloxetine (Cymbalta) 60mg daily SCHEDULED - antidepressant and adjuvant pain medication, continuing for now senna 1 tablet daily SCHEDULED and 1 tablet daily NEEDED for constipation polyethylene glycol (Miralax) 1 capful daily NEEDED for constipation Palliative Follow Up Visit with Dr. Miles (home visit) - Jul 31 at 10AM (we can reschedule this for a different time that day if needed to accommodate physical therapy or other appointments. I will send prescriptions for the above medications when I get back to the office. If patient does not have naloxone at home, will send Rx for that as well. Will discuss above with patient's sister Natalia who has been helping her coordinate plans.
[2020-07-24] MEDS: 0.9% Saline Lock 10 ML Syringe IV (12:56)
[2020-07-24 13:24] VITALS: BP 140/86; PULSE 113; RESP 17; TEMP 36.2; O2SAT 96
--- NOTE | 2020-07-24 14:24 | PHA.DC.MR ---
Pharmacy Service has performed discharge medication reconciliation for this patient. The patient's discharge medication list was reviewed for discrepancies and discrepancies were resolved. Home Medications [Hydrocortisone 2.5%/lidocaine 5% ointment (compound)] See Rx Instructions .ROUTE .MEDSUPPLY 06/28/20 Acetaminophen [Tylenol] 1,000 mg PO TID tab 07/22/20 Bisacodyl [Dulcolax] 10 mg RECTAL DAILY PRN PRN #30 suppos. 07/22/20 Dexamethasone [Decadron] 20 mg PO DAILY@0800 #150 tab 07/22/20 Diazepam [Valium] 2 mg PO TID PRN PRN #90 tab 07/22/20 Duloxetine Hcl [Cymbalta] 60 mg PO DAILY #30 cap 07/22/20 Famotidine [Pepcid] 20 mg PO BID #60 tab 07/22/20 HYDROmorphone tablet [Dilaudid] 4 mg PO Q3H PRN PRN 7 Days #112 tab 07/22/20 HYDROmorphone tablet [Dilaudid] 4 mg PO Q6H 7 Days #56 tab 07/22/20 Haloperidol [Haldol] 1 mg PO Q8H #90 tab 07/22/20 Mag Hydrox/Al Hydrox/Simeth [Mylanta II] 30 ml PO Q6H PRN PRN udc 07/22/20 Menthol/Lanolin/Calamine/Znox [Calmoseptine Ointment] 1 applic TOPICAL 0600,1800 tube 07/22/20 Methocarbamol [Robaxin] 500 mg PO TID #90 tab 07/22/20 Polyethylene Glycol 3350 [Miralax] 17 gm PO BID #30 packet 07/22/20 Senna/Docusate Sodium [Senokot-S] 1 tab PO DAILY #30 tab 07/22/20 fentaNYL patch [Duragesic Patch] 100 mcg TRANSDERM. Q3D 7 Days #2 patch 07/22/20
[2020-07-24] MEDS: Pregabalin 75 MG Capsule PO (17:50)
[2020-07-24 22:10] VITALS: PULSE 96; RESP 18; O2SAT 96
--- NOTE | 2020-07-24 23:48 | NURSING ---
Saline lock discontinue per patient request being discharge tomorrow. Catheter intact no concerns voiced during this time.
[2020-07-25] MEDS: HYDROmorphone 2 MG TABLET 4 MG PO ×2 (00:18→06:52)
[2020-07-25] MEDS: Haloperidol 1 MG Tablet PO (03:37)
[2020-07-25 05:00] VITALS: BP 125/81; PULSE 86; RESP 16; TEMP 36.6; O2SAT 97
[2020-07-25 05:50] LABS: Absolute Lymphocyte Count 0.29 X10^3/uL (0.83-4.51); Absolute Neutrophil Count 4.1 X10^3/uL (2.0-7.7); Basophil# 0.01 X10^3/uL; Basophil% 0.2 % (0-1); Eosinophil# 0.02 X10^3/uL; Eosinophils% 0.4 % (0-5); Hemoglobin 10.7 g/dL (12.0-15.0); Lymphocyte # 0.29 X10^3/ul (4.0); Lymphocyte % 5.6 % (19-41); Mean Corp Hgb Conc 32.4 g/dL (32-36); Mean Corpuscular Hgb 30.9 pg (27.0-32.0); Mean Corpuscular Volume 95.4 fL (81-99); Mean Platelet Vol. 8.6 fl (6.2-12.0); Monocyte# 0.55 X10^3/uL; Monocyte% 10.6 % (0-10); NRBC Flagged by Analyzer 0 % (0-5); Neutrophil # 4.11 X10^3/uL (2.7-7.7); Neutrophil % 79.3 % (47-70); POSITIVE DIFFERENTIAL YES; Platelet Count 142 K/mm3 (150-450); RBC Distribution Width CV 14.2 % (11.6-14.6); RBC Distribution Width SD 48.4 fl (35.1-43.9); Red Blood Count 3.46 M/mm3 (4.2-5.4); White Blood Count 5.2 K/mm3 (4.4-11.0)
[2020-07-25 05:55] LABS: Differential Indicated SCAN CRITERIA MET
[2020-07-25 06:06] LABS: Anion Gap 5 (5-15); BUN 23 mg/dL (7-18); BUN/Creat Ratio 33.4 RATIO (10-20); Chloride 101 mmol/L (98-107); Creatinine, Serum 0.69 mg/dL (0.55-1.02); EST Glomerular Filtration Rate 94 mL/min (>60); Est Glom Filt Rate - Afr Amer 114 mL/min (>60); Estimated Creatinine Clearance 81.92 ml/min; Glucose 81 mg/dL (74-106); Potassium 3.9 mmol/L (3.5-5.1); Sodium Level 136 mmol/L (136-145)
[2020-07-25 06:39] LABS: Differential Comment SCANNED; Polychromasia RARE
[2020-07-25] MEDS: Pregabalin 75 MG Capsule PO (06:52)
[2020-07-25] MEDS: Senna/Docusate Sodium 1 Tablet PO (06:52)
[2020-07-25] MEDS: Acetaminophen 500 MG Tablet 1000 MG PO (06:52)
[2020-07-25] MEDS: Famotidine 20 MG Tablet PO (06:52)
[2020-07-25] MEDS: DULoxetine Hcl 60 MG Capsule PO (06:52)
[2020-07-25] MEDS: Methocarbamol 500 MG Tablet PO (06:52)
[2020-07-25] MEDS: dexAMETHasone 4 MG Tablet 20 MG PO (08:06)
[2020-07-25 08:48] VITALS: PULSE 113; RESP 16; O2SAT 98
--- NOTE | 2020-07-25 09:07 | NURSING ---
duragesic intact to RT upper posterior shoulder
== END 2020-07-25 09:30 | disposition home health service (06) | DRG 841 ==
PROVIDERS: Admitting Provider Family Medicine Geriatric Medicine; PCP Internal Medicine; Visit Provider Family Medicine Geriatric Medicine
DX: C90.00 Multiple myeloma not having achieved remission (principal); K86.1 Other chronic pancreatitis; M84.58XD Pathological fracture in neoplastic disease, other specified site, subsequent encounter for fracture with routine healing; E66.9 Obesity, unspecified; M19.90 Unspecified osteoarthritis, unspecified site; Z23 Encounter for immunization; D50.9 Iron deficiency anemia, unspecified; T40.2X5A Adverse effect of other opioids, initial encounter; F41.9 Anxiety disorder, unspecified; F32.9 Major depressive disorder, single episode, unspecified; G89.3 Neoplasm related pain (acute) (chronic); K59.03 Drug induced constipation; Z85.528 Personal history of other malignant neoplasm of kidney; Z87.891 Personal history of nicotine dependence; Z68.33 Body mass index [BMI] 33.0-33.9, adult
CPT/HCPCS: 36415; 71046; 74018; 80048; 82550; 82962; 84484; 85025; 87635; 90732; 93005; 97110; 97116; 97162; 97166; 97530; 97535; 97802; 99406; A4216; J2405; J7799; U0003

== ENCOUNTER 2020-08-08 21:56 | Inpatient (IN) | payer OTHER, SELFPAY ==
[2020-07-03 16:25] VITALS: BMI 332779.2
[2020-08-08 21:59] VITALS: BP 158/79; PULSE 99; RESP 20; TEMP 36.4; O2SAT 100; BMI 32.1
--- NOTE | 2020-08-08 22:24 | ED.DCSUM_ITS ---
History of Present Illness Chief Complaint: Abd Pain Informant: Patient Narrative: 55-year-old female with past medical history of recently diagnosed multiple myeloma presents with concern for abdominal pain and distention. States it began today. Describes the pain is diffuse and aching. Denies any vomiting or nausea. Denies any urinary symptoms. Denies any vaginal bleeding or discharge. States that the pain does radiate through to her back. States that she has had pancreatitis twice before in the past which was of an unknown etiology. Patient is currently receiving chemotherapy for multiple myeloma. Most recent treatment was 5 days ago. Denies any fever, chills, cough, chest pain, shortness of breath. Past Medical History - Allergies and Home Meds Allergies/Adverse Reactions: Allergies latex Allergy (Mild, Verified 08/08/20 21:57) rash Penicillins Allergy (Verified 08/08/20 21:57) Unknown adhesive tape Adverse Reaction (Verified 08/08/20 21:57) Rash Prior records reviewed: Yes Past Medical History: - - MM, endometriosis Surgical History: tonsillectomy, - - L4 kyphoplasty, endometrial ablation, partial nephrectomy. Lives: Spouse/ Significant Other Smoking Status: Former smoker Alcohol: None Drugs: None - Family History Maternal Family History: Family History (Last Reviewed 06/29/20 @ 03:[address] Allan Yost MD) Brother Asthma Malignant hyperthermia due to anesthesia Hypertension Grandfather Colon cancer Mother Heart disease Thyroid disorder COPD (chronic obstructive pulmonary disease) Arthritis Anemia Sister Breast cancer Hypertension Thyroid disorder Arthritis Father Bleeding disorder Cancer Myelodysplastic syndrome Chronic lymphocytic leukemia Alcohol abuse Aunt Myocardial infarction Family History: Reports: - - Patient notes a maternal family history of heart disease, specifically valvular heart disease, COPD with tobacco use history. Paternal Family History: Family History (Last Reviewed 06/29/20 @ 03:[address] Allan Yost MD) Brother Asthma Malignant hyperthermia due to anesthesia Hypertension Grandfather Colon cancer Mother Heart disease Thyroid disorder COPD (chronic obstructive pulmonary disease) Arthritis Anemia Sister Breast cancer Hypertension Thyroid disorder Arthritis Father Bleeding disorder Cancer Myelodysplastic syndrome Chronic lymphocytic leukemia Alcohol abuse Aunt Myocardial infarction Family History: Reports: - - Patient notes a history of heart disease, coronary disease status post PCI x1, lung cancer with tobacco use history. Review of Systems General: Denies: Chills, Fever, Sweats Eyes: Denies: Visual changes - bilaterally, Diplopia ENT: Denies: Rhinorrhea, Sore throat Cardiovascular: Denies: Chest pain, Palpitations Respiratory: Denies: Dyspnea, Cough, Dyspnea on exertion Gastrointestinal: Reports: Abdominal pain. Denies: Nausea, Vomiting, Diarrhea, Melena, Hematochezia Genitourinary: Denies: Dysuria, Hematuria, Frequency Musculoskeletal: Denies: Back pain, Extremity Pain Skin: Denies: Rash, Wounds Neurological: Denies: Headache, Weakness, Numbness Physical Exam Vital Signs/Narrative: Vital Signs Temp Pulse Resp BP Pulse Ox 08/08/20 21:59 97.5 F L 99 20 H 158/79 H 100 Inital Vital Signs reviewed: Yes General: Well nourished, Well developed, No Acute Distress Head: Normocephalic, Atraumatic Eyes: Perrl, EOMI ENT: Moist mucous membranes, No rhinorrhea Neck: Supple, Nontender Cardiovascular: Regular rate, Regular rhythm, No murmurs Respiratory: No distress, CTA bilaterally, Chest nontender Abdomen: Soft, Normal bowel sounds, - - Mild TTP diffusely without rebound or r igidity. Distended but not firm. Back: Nontender, Normal Inspection Extremities: Nontender, No edema Skin: Normal color, No rash Neurological: Alert, Oriented x3, Cranial nerves II-XII grossly intact, Normal Strength, Normal Sensation Psychological: Normal affect, Normal Mood Diagnostic/Tx/Re-eval Clinical Impression(s) from Imaging Studies Abdomen/Pelvis CT 08/08/20 23:32 IMPRESSION: 1. Nonspecific fluid-filled small bowel loops and colon which could be due to ileus. Enterocolitis is possible. 2. Diffuse demineralization of the osseous structures in keeping with a history of multiple myeloma new since previous exam. Electronically Signed: Ruben Castillo MD at 0:27 EDT Tel , Service support , Laboratory Data 08/08/20 08/08/20 08/09/20 22:46 22:46 00:21 WBC 9.0 RBC 3.14 L Hgb 10.1 L Hct 30.4 L MCV 96.8 MCH 32.2 H MCHC 33.2 RDW Std Deviation 55.8 H RDW Coeff of Marcia 16.4 H Plt Count 139 L MPV 9.1 Immature Gran % (Auto) 3.300 H Neut % (Auto) 89.6 H Lymph % (Auto) 1.6 L [place] % (Auto) 5.3 Eos % (Auto) 0.0 Baso % (Auto) 0.2 Absolute Neuts (auto) 8.1 H Absolute Lymphs (auto) 0.14 L Nucleated RBC % 0 Differential Comment Sodium 135 L Potassium 3.4 L Chloride 98 Carbon Dioxide 33.0 H Anion Gap 4 L BUN 11 Creatinine 0.61 Estim Creat Clear Calc 92.66 Est GFR (MDRD) Af Amer 131 Est GFR (MDRD) Non-Af 108 BUN/Creatinine Ratio 18.1 Glucose 95 Calcium 7.7 L Total Bilirubin 0.90 AST 15 ALT 39 Alkaline Phosphatase 92 Total Protein 6.2 L Albumin 3.4 Globulin 2.8 Albumin/Globulin Ratio 1.2 Lipase 4980 H Urine Color Yellow Urine Clarity Clear Urine pH 7.0 Ur Specific [place] 1.010 Urine Protein 15 H Urine Glucose (UA) Normal Urine Ketones Negative Urine Occult Blood Negative Urine Nitrite Negative Urine Bilirubin Negative Urine Urobilinogen Normal Ur Leukocyte Esterase 100 H Urine RBC 0 SEEN Urine WBC 0-5 SEEN Ur Squamous Epith Cells 0-5 SEEN Urine Bacteria 0 SEEN Urine Mucus 0 SEEN - Medical Decision Making Appears well nontoxic. Tachycardic upon arrival but normotensive. Lab work shows chronic anemia as well as a chronic thrombocytopenia. CT of the abdomen pelvis shows some fluid-filled loops of bowel without obstruction. Possible ileus. Patient also has a lipase of approximately 5000. 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 Patient was given morphine and then 1 mg of Dilaudid. Patient be started at 200 mL/h of normal saline. Patient juan m l have her fentanyl patch replaced which she has had for palliative reasons secondary to her multiple myeloma. Given her acute pancreatitis and continued abdominal pain she will be admitted for further treatment and evaluation. Patient stable at time of admission. Impression: 1. Acute pancreatitis 2. Ileus 3. History of multiple myeloma ED Disposition - Plan for ED Patient: Disposition: Acute Care Hospital [facility]
[2020-08-08 22:30] VITALS: BP 148/80; PULSE 95; RESP 17; TEMP 36.4; O2SAT 99
[2020-08-08] MEDS: Ondansetron 4 MG/2 ML Vial IV (22:54)
[2020-08-08 23:01] VITALS: BP 124/73; PULSE 91; RESP 14; TEMP 36.8; O2SAT 99
[2020-08-08 23:01] LABS: Absolute Lymphocyte Count 0.14 X10^3/uL (0.83-4.51); Absolute Neutrophil Count 8.1 X10^3/uL (2.0-7.7); Basophil# 0.02 X10^3/uL; Basophil% 0.2 % (0-1); Hematocrit 30.4 % (37-47); Hemoglobin 10.1 g/dL (12.0-15.0); Lymphocyte # 0.14 X10^3/ul (4.0); Lymphocyte % 1.6 % (19-41); Mean Corp Hgb Conc 33.2 g/dL (32-36); Mean Corpuscular Hgb 32.2 pg (27.0-32.0); Mean Corpuscular Volume 96.8 fL (81-99); Mean Platelet Vol. 9.1 fl (6.2-12.0); Monocyte# 0.48 X10^3/uL; Monocyte% 5.3 % (0-10); NRBC Flagged by Analyzer 0 % (0-5); Neutrophil # 8.05 X10^3/uL (2.7-7.7); Neutrophil % 89.6 % (47-70); POSITIVE DIFFERENTIAL YES; Platelet Count 139 K/mm3 (150-450); RBC Distribution Width CV 16.4 % (11.6-14.6); RBC Distribution Width SD 55.8 fl (35.1-43.9); Red Blood Count 3.14 M/mm3 (4.2-5.4)
[2020-08-08] MEDS: HYDROmorphone 1 MG/ML Syringe IV (23:02)
[2020-08-08 23:03] LABS: Differential Indicated SCAN CRITERIA MET
[2020-08-08 23:18] LABS: ALB/GLOB Ratio 1.2 RATIO (0.9-2.4); AST(SGOT) 15 U/L (15-37); Alanine Aminotransfer ALT/SGPT 39 U/L (13-56); Albumin, Serum 3.4 g/dL (3.2-5.0); Alkaline Phosphatase 92 U/L (45-117); Anion Gap 4 (5-15); BUN 11 mg/dL (7-18); BUN/Creat Ratio 18.1 RATIO (10-20); Calcium,Total 7.7 mg/dL (8.5-10.1); Chloride 98 mmol/L (98-107); Creatinine, Serum 0.61 mg/dL (0.55-1.02); EST Glomerular Filtration Rate 108 mL/min (>60); Est Glom Filt Rate - Afr Amer 131 mL/min (>60); Estimated Creatinine Clearance 92.66 ml/min; Globulin 2.8 g/dL (2.2-4.2); Glucose 95 mg/dL (74-106); Lipase 4980 U/L (73-393); Potassium 3.4 mmol/L (3.5-5.1); Protein, Total 6.2 g/dL (6.4-8.2); Sodium Level 135 mmol/L (136-145)
--- NOTE | 2020-08-08 23:32 | CT_ITS ---
STUDY: CT ABDOMEN AND PELVIS WITH CONTRAST REASON FOR EXAM: Female, 55 years old. ABDOMINAL PAIN WITH DISTENTION AND LEG SWELLING. HX OF RENAL CELL CA. BEING TREATED FOR MULTIPLE MYELOMA RADIATION DOSAGE (If Supplied By Facility): CTDIvol = ( 24.66 ) mGy, DLP = ( 1133.35 ) mGycm TECHNIQUE: Transaxial images were obtained from the dome of the diaphragm to the symphysis pubis without oral contrast. IV 75mL Isovue-300 was administered. Sagittal and coronal images were reconstructed. Individualized dose optimization techniques were used for this CT. COMPARISON: 06/08/2013 FINDINGS: The visualized lung bases are unremarkable. The visualized portions of the heart are within normal limits. Few small low-density lesions in the liver unchanged since prior examination consistent with cysts. Probable small hemangioma in the left lobe. Normal gallbladder and extrahepatic biliary system. Normal spleen. Normal pancreas. Normal bilateral adrenal glands. Small low-density lesion/cyst in the right kidney. No evidence of hydronephrosis. Normal left kidney. Normal visualized stomach. Nonspecific fluid-filled small bowel loops and colon. No evidence of small bowel obstruction. No evidence for acute diverticulitis. The appendix is visualized and appears normal. Normal abdominal aorta. Normal inferior vena cava. Normal retroperitoneum. Normal urinary bladder. Metallic densities in the region of the adnexa consistent with tubal ligation. Very small umbilical hernia containing fat. Diffuse mineralization of the osseous structures in keeping with the history of multiple myeloma. Moderate compression fractures of lower thoracic vertebrae and L1. Vertebroplasty at L5. CT/Abdomen/Pelvis W IV Cont ONLY IMPRESSION: 1. Nonspecific fluid-filled small bowel loops and colon which could be due to ileus. Enterocolitis is possible. 2. Diffuse demineralization of the osseous structures in keeping with a history of multiple myeloma new since previous exam. Electronically Signed: Ruben Castillo MD at 0:27 EDT Tel , Service support ,
[2020-08-09] VITALS (8 sets, daily range): BP systolic 113–151; BP diastolic 66–92; PULSE 86–109; RESP 15–18; TEMP 36.4–36.9; O2SAT 96–100; BMI 31.8; BMI 31.9
[2020-08-09 00:27] LABS: Bacteria 0 SEEN /hpf (None Seen); Mucous, Urine 0 SEEN /hpf (<or=2+); Red Blood Cells-Urine 0 SEEN /hpf (0-5)
[2020-08-09 00:31] LABS: Color, Urine Yellow (Yellow); Glucose, Dipstick Normal (Normal); Ketone-Dipstick Negative (Negative); Leukocyte Esterase-Dipstick 100 /ul (Negative); Nitrite-Dipstick Negative (Negative); Occult Blood-Urine Negative /ul (Negative); Protein-Dipstick 15 mg/dl (Negative); Urine Bilirubin Dipstick Negative (Negative); Urine Clarity Clear (Clear); Urine Urobilinogen Normal (Normal)
[2020-08-09 00:37] LABS: Squamous Epithelial Cells - UA 0-5 SEEN /hpf (5-10); White Blood Cells 0-5 SEEN /hpf (0-5)
--- NOTE | 2020-08-09 01:48 | HP.PCM_ITS ---
Problem List (1) Acute pancreatitis Status: Acute (2) Acute back pain Status: Chronic Qualifiers: Back pain location: thoracic back pain Back pain laterality: midline Qualified Code(s): M54.6 - Pain in thoracic spine (3) Thoracic vertebral fracture Status: Chronic Qualifiers: Thoracic vertebra fracture level: T11 Fracture morphology: wedge compression Fracture healing: with delayed healing Comment: secondary to multiple myeloma (4) Multiple myeloma without remission Status: Chronic (5) Lumbar compression fracture Status: Chronic Comment: recent history of kyphoplasty, due to multiple myeloma (6) Uncontrolled pain Status: Acute Comment: seconday to thoracic compression fracture (7) Debility Status: Chronic (8) Intractable back pain Status: Chronic (9) Compression fracture of T11 vertebra Status: Chronic (10) Multiple myeloma Status: Chronic (11) Muscle spasm Status: Chronic (12) Hemorrhoids Status: Chronic (13) Pain of sternum Status: Chronic (14) Pancreatitis Status: Acute Qualifiers: (15) Obesity Status: Chronic Qualifiers: Obesity type: due to excess calories Obesity classification: adult class 1 (BMI 30 - 34.9) (16) Former tobacco use Status: Chronic (17) Renal cell cancer Status: Chronic Qualifiers: (18) Iron deficiency anemia Status: Chronic Qualifiers: (19) History of nausea and vomiting Status: Chronic (20) History of abdominal pain Status: Chronic History of Present Illness Date of Admission: 08/09/20 Chief Complaint: Abdominal pain The patient is a 55 year old F with a significant history of renal cell carcinoma status post surgery; multiple myeloma; thoracic and lumbar vertebral fracture who presents to the emergency department with progressively excruciating abdominal pain. Her pain is present diffusely in her entire abdomen but it is more prominent in her upper abdomen. Her pain radiates to her back. Her pain became excruciating on the same day of presentation but her pain started about 3 weeks ago. Food aggravates the pain. She denies any ameliorating factors to the pain. She denies any nausea or vomiting. Her bowels moved on the same day of presentation At the emergency department her lipase was elevated. She reports history of pancreatitis x2 times. Past Medical History Past Medical History (Chronic Problems): Chronic Problems (Last Reviewed 08/09/20 @ 02:[address] Allan Yost MD) Acute back pain (Chronic) Thoracic vertebral fracture (Chronic) secondary to multiple myeloma Multiple myeloma without remission (Chronic) Lumbar compression fracture (Chronic) recent history of kyphoplasty, due to multiple myeloma Debility (Chronic) Intractable back pain (Chronic) Compression fracture of T11 vertebra (Chronic) Multiple myeloma (Chronic) Muscle spasm (Chronic) Hemorrhoids (Chronic) Pain of sternum (Chronic) Obesity (Chronic) Former tobacco use (Chronic) Renal cell cancer (Chronic) Iron deficiency anemia (Chronic) History of nausea and vomiting (Chronic) History of abdominal pain (Chronic) Medical History: Medical History (Last Reviewed 08/09/20 @ 02:[address] Allan Yost MD) Screening for intestinal cancer (Inactive) Z12.10 Pancreatitis (Acute) K85.90 Obesity (Chronic) E66.9 Former tobacco use (Chronic) Z87.891 Renal cell cancer (Chronic) C64.9 Iron deficiency anemia (Chronic) D50.9 URI, acute (Inactive) J06.9 History of nausea and vomiting (Chronic) Z87.898 History of abdominal pain (Chronic) Z87.898 Arthritis M19.90 Back problem M53.9 Carpal tunnel syndrome G56.00 Endometriosis N80.9 Headache, migraine G43.909 History of pneumococcal infection Z86.19 Seasonal allergies J30.2 history of bone fracture Allergies latex Allergy (Mild, Verified 08/08/20 21:57) rash Penicillins Allergy (Verified 08/08/20 21:57) Unknown adhesive tape Adverse Reaction (Verified 08/08/20 21:57) Rash Home Medications: Ambulatory Orders Medication Instructions Recorded Acetaminophen [Tylenol] 1,000 mg PO TID tab 07/22/20 Diazepam [Valium] 2 mg PO TID PRN PRN #90 tab 07/22/20 Duloxetine Hcl [Cymbalta] 60 mg PO DAILY #30 cap 07/22/20 Famotidine [Pepcid] 20 mg PO BID #60 tab 07/22/20 Haloperidol [Haldol] 1 mg PO Q8H #90 tab 07/22/20 Mag Hydrox/Al Hydrox/Simeth 30 ml PO Q6H PRN PRN udc 07/22/20 [Mylanta II] Menthol/Lanolin/Calamine/Znox 1 applic TOPICAL 0600,1800 tube 07/22/20 [Calmoseptine Ointment] Methocarbamol [Robaxin] 500 mg PO TID #90 tab 07/22/20 Senna/Docusate Sodium [Senokot-S] 1 tab PO DAILY #30 tab 07/22/20 Acyclovir [Zovirax] 400 mg PO BID 08/08/20 Bortezomib SC [Velcade SC] 3.5 mg SQ 08/08/20 Dexamethasone [Decadron] 12 mg PO DAILY 08/08/20 Enoxaparin [Lovenox] 40 mg SC DAILY@0600 08/08/20 Fentanyl 1 ea TD 08/08/20 HYDROmorphone tablet [Dilaudid] 2 mg PO Q4H PRN PRN 08/08/20 HYDROmorphone tablet [Dilaudid] 2 mg PO Q6H 08/08/20 Lenalidomide [Revlimid] 25 mg PO DAILY 08/08/20 Loratadine [Claritin] 10 mg PO DAILY 08/08/20 Polyethylene Glycol 3350 [Miralax] 17 gm PO DAILY PRN PRN 08/08/20 Pregabalin [Lyrica] 75 mg PO BID 08/08/20 Zoledronic Acid 4 mg IV QMONTH 08/08/20 Surgical History: Surgical History (Last Reviewed 08/09/20 @ 02:[address] Allan Yost MD) History of back surgery Z98.89 cement a vertabrae L4 Status post endometrial ablation Z98.890 2011 s/p kidney cancer mass removed from kidney 2012 Surgical History: tonsillectomy, - - L4 kyphoplasty, endometrial ablation, partial nephrectomy. Psychiatric History: No pertinent psych hx [employer] TECH[employer]ICIAN History: No pertinent [employer] TECH[employer]ICIAN history Lives: Spouse/ Significant Other Smoking Status: Former smoker Alcohol: None Drugs: None - *Family History Maternal Family History: Family History (Last Reviewed 08/09/20 @ 02:[address] Allan Yost MD) Brother Asthma Malignant hyperthermia due to anesthesia Hypertension Grandfather Colon cancer Mother Heart disease Thyroid disorder COPD (chronic obstructive pulmonary disease) Arthritis Anemia Sister Breast cancer Hypertension Thyroid disorder Arthritis Father Bleeding disorder Cancer Myelodysplastic syndrome Chronic lymphocytic leukemia Alcohol abuse Aunt Myocardial infarction History Items: - - Patient notes a maternal family history of heart disease, specifically valvular heart disease, COPD with tobacco use history. Paternal Family History: Family History (Last Reviewed 08/09/20 @ 02:[address] Allan Yost MD) Brother Asthma Malignant hyperthermia due to anesthesia Hypertension Grandfather Colon cancer Mother Heart disease Thyroid disorder COPD (chronic obstructive pulmonary disease) Arthritis Anemia Sister Breast cancer Hypertension Thyroid disorder Arthritis Father Bleeding disorder Cancer Myelodysplastic syndrome Chronic lymphocytic leukemia Alcohol abuse Aunt Myocardial infarction History Items: - - Patient notes a history of heart disease, coronary disease status post PCI x1, lung cancer with tobacco use history. Review of Systems Constitutional: Denies: Chills, Fever, Weight Change HEENT: Denies: Head Aches, Sinus Congestion, Sinus Drainage Cardiovascular: Denies: Chest Pain, Palpitations Respiratory: Denies: Cough, Shortness of breath at rest, Sputum production Gastrointestinal: Reports: Abdominal Pain. Denies: Nausea, Vomiting Genitourinary: Denies: Dysuria Musculoskeletal: Reports: Back Pain. Denies: Joint Pain, Joint Tenderness Skin: Denies: Rash, Wounds Neurological: Denies: Numbness, Tingling, Focal weakness Psychiatric: Denies: Anxiety, Depression, Homicidal Ideations, Suicidal Ideations Hematologic/ Lymphatic: Denies: Easy Bruising, Easy Bleeding VTE Information - Inpt Only VTE Present on Admission: No VTE Mechan Device Prophylaxis: None VTE Pharm Prophylaxis ordered?: Yes Patient Problems: Active and Suspected Problems (Last Reviewed 08/09/20 @ 02:[address] Allan Yost MD) Uncontrolled pain (Acute) seconday to thoracic compression fracture Acute pancreatitis (Acute) Pancreatitis (Acute) - Physical Exam Vitals/I&O's: Vital Signs Temp Pulse Resp BP Pulse Ox 98.3 F 96 15 129/83 H 98 08/09/20 01:39 08/09/20 01:39 08/09/20 01:39 08/09/20 01:39 08/09/20 01:39 Oxygen Delivery Method Room Air Weight: 87.543 kg Body Mass Index (BMI) 32.1 General: Alert, Oriented x3, Cooperative HEENT: Atraumatic, PERRLA, EOMI, Normocephalic Neck: Supple, No JVD, Negative Carotid Bruits Lungs: Clear to auscultation, Normal air movement, No rhonchi, No wheeze, No rales Cardiovascular: Normal S1, Normal S2, No murmurs, Tachycardic Abdomen: Bowel Sounds Present, Soft, Tender Extremities: Capillary Refill Less than 3 Seconds, Edema - bilateral legs Skin: No rashes, No breakdown Musculoskeletal: No Tenderness to Palpation of Joints or Extremities Neurological: Cranial nerves II-XII grossly intact Psych/Mental Status: Normal Affect, Appropriate Laboratory Results 08/08/20 22:46: WBC 9.0, RBC 3.14 L, Hgb 10.1 L, Hct 30.4 L, MCV 96.8, MCH 32.2 H, MCHC 33.2, RDW Std Deviation 55.8 H, RDW Coeff of Marcia 16.4 H, Plt Count 139 L , MPV 9.1, Immature Gran % (Auto) 3.300 H, Neut % (Auto) 89.6 H, Lymph % (Auto) 1.6 L, [place] % (Auto) 5.3, Eos % (Auto) 0.0, Baso % (Auto) 0.2, Absolute Neuts (auto) 8.1 H, Absolute Lymphs (auto) 0.14 L, Nucleated RBC % 0, Differential Comment 08/08/20 22:46: Sodium 135 L, Potassium 3.4 L, Chloride 98, Carbon Dioxide 33.0 H, Anion Gap 4 L, BUN 11, Creatinine 0.61, Estim Creat Clear Calc 92.66, Est GFR (MDRD) Af Amer 131, Est GFR (MDRD) Non-Af 108, BUN/Creatinine Ratio 18.1, Glucose 95, Calcium 7.7 L, Total Bilirubin 0.90, AST 15, ALT 39, Alkaline Phosphatase 92, Total Protein 6.2 L, Albumin 3.4, Globulin 2.8, Albumin/Globulin Ratio 1.2, Lipase 4980 H 08/09/20 00:21: Urine Color Yellow, Urine Clarity Clear, Urine pH 7.0, Ur Specific [place] 1.010, Urine Protein 15 H, Urine Glucose (UA) Normal, Urine Ketones Negative, Urine Occult Blood Negative, Urine Nitrite Negative, Urine Bilirubin Negative, Urine Urobilinogen Normal, Ur Leukocyte Esterase 100 H, Urine RBC 0 SEEN, Urine WBC 0-5 SEEN, Ur Squamous Epith Cells 0-5 SEEN, Urine Bacteria 0 SEEN, Urine Mucus 0 SEEN Current Medications Fentanyl (Fentanyl 50 Mcg Patch) 50 mcg TRANSDERM. Q3D DANELLE Last Admin: 08/09/20 00:38 Dose: 50 mcg Documented by: Sodium Chloride () 1,000 mls @ 200 mls/hr IV .Q5H [facility] Assessment/Plan All Active Problems (Last Reviewed 08/09/20 @ 02:[address] Allan Yost MD) Uncontrolled pain (Acute) Acute pancreatitis (Acute) Pancreatitis (Acute) Acute pancreatitis Characteristic of pain: Epigastric pain radiated to back. Lipase level: 4,980 Hematocrit: 10.1 BUN: 11 Normal saline at 200 mL/h started at the emergency department. Change IV fluids to lactated Ringer's. Because patient also have bilateral leg swelling will change if she read to 150 mL's per hour. Pain regimen: Patient is on multiple pain regiment at home. She sees palliative and oncology for her multiple myeloma. Had fentanyl patch 50 mcg/h was changed at emergency department. Fentanyl patch continued. On Dilaudid 2 mg p.o. every 6 hours scheduled; continued. Also on Dilaudid 1 to 2 mg every 3 hours as needed for pain. Stating to Dilaudid 1 mg IV every 3 hours for pain. Scheduled Tylenol continued. Antiemetics: Haldol continued. As needed Zofran ordered. Since food exacerbates her pain; and since there is plan for ultrasound we will keep patient n.p.o. except meds. Triglyceride ordered. BMP read as shows hypocalcemia. Ultrasound gallbladder ordered. Patient is not an alcoholic. On multiple medications however no culprit medication for pancreatitis found yet. If an etiology not found could consider autoimmune hepatitis which presents with elevated IgG4 levels. Ileus CT scan of nonspecific fluid-filled small bowel loops and colon likely secondary to pain meds and pancreatitis. Enterocolitis less likely as patient has no leukocytosis or fever. Npo except meds. Of note she had a bowel movement on same day of presentation Chronic pain/ multiple myeloma/vertebral compression fracture Status post cement kyphoplasty Fentanyl and Dilaudid as above Robaxin and Lyrica continued Cymbalta continued. On Zometa. On Decadron taper; continued. Valium continued Acyclovir continued. Revlimid continued On Velcade subcutaneous injections. Depression Cymbalta continued. GERD Pepcid continued Chronic constipation Senna continued MiraLAX as needed continued Allergies Claritin continued. Hypocalcemia Likely secondary to Zometa use Asymptomatic Tachycardia Sister who was at the bedside was concerned that patient's heart rate was going into the 130s. Will put on MedSurg telemetry. DVT Subcutaneous lovenox continued Inpatient E&M: [id number] Init Hosp L3
--- NOTE | 2020-08-09 02:59 | EKG12_ITS ---
Test Reason : DYSRHYTHMIA Blood Pressure : / mmHG Vent. Rate : 109 BPM Atrial Rate : 109 BPM P-R Int : 142 ms QRS Dur : 088 ms QT Int : 346 ms P-R-T Axes : 057 006 -09 degrees QTc Int : 465 ms Sinus tachycardia Otherwise normal ECG Confirmed by JOHNATHAN WALTER, JADON ([id number]), editorial clerk ANTONIETA HOYT ([id number]) on 08/13/2020 10:50:28 AM Referred By: NELLI Confirmed By:JADON MANN MD
[2020-08-09] MEDS: Lactated Ringers 1,000 ML 150 ML IV ×3 (03:04→18:17)
[2020-08-09] MEDS: HYDROmorphone 1 MG/ML Syringe 2 MG IV (03:05)
[2020-08-09] MEDS: Famotidine 200 MG/20 ML MDV 20 MG in 0.9% Normal Saline (Pres. free 8 ML 300 MG IV ×3 (03:05→22:16)
[2020-08-09 03:19] LABS: Triglycerides 129 mg/dL
--- NOTE | 2020-08-09 05:55 | US_ITS ---
STUDY: ABDOMINAL ULTRASOUND - RIGHT UPPER QUADRANT REASON FOR VISIT: Female, 55 years old PANCREATITIS R/O GALLSTONES TECHNIQUE: Ultrasound evaluation of the right upper quadrant was performed with real-time and static berry-scale imaging. TECHNICAL QUALITY: Adequate. COMPARISON: CT 08/08/2020 FINDINGS: Liver: The liver measures 15.3 cm. There is normal echogenicity of the liver. The bile ducts are within normal limits. There is hepatic color flow. The direction of portal flow is hepatopetal. 1.4 cm hyperechoic mass within the left lobe of liver corresponding to the hemangioma seen on recent CT. Gallbladder: Normal distended gallbladder. The gallbladder wall measures 2 mm. There is a negative sonographic Weir''s sign. There is no pericholecystic fluid. There are no gallstones. Common Bile Duct (C.B.D.): The common bile duct measures 4 mm. Pancreas: Normal size of the head, body and tail of the pancreas. There is normal echogenicity of the pancreas. There is no demonstrated pancreatic mass or cyst. Right Kidney: Normal size of the right kidney. The right kidney measures 10.3 cm. Normal renal cortex. The right cortex measures 1.2 cm. 1 cm cyst lower pole the right kidney. There is no right hydronephrosis. US/Abdomen Limited IMPRESSION: 1. Normal right upper quadrant ultrasound examination. 2. 1.4 cm hemangioma in the left lobe of the liver as seen on CT. 3. 1 cm cyst lower pole the right kidney. Electronically Signed: Juan C Mckay MD at 8:22 EDT Tel , Service support ,
[2020-08-09] MEDS: Acetaminophen 500 MG Tablet 1000 MG PO ×3 (06:03→22:17)
[2020-08-09] MEDS: HYDROmorphone 2 MG TABLET PO ×3 (06:03→18:18)
[2020-08-09] MEDS: Haloperidol 1 MG Tablet PO ×3 (06:03→22:17)
[2020-08-09] MEDS: Methocarbamol 500 MG Tablet PO ×3 (06:03→22:17)
[2020-08-09] MEDS: Acyclovir 200 MG Capsule 400 MG PO ×2 (06:13→18:18)
[2020-08-09] MEDS: Pregabalin 75 MG Capsule PO ×2 (06:13→18:18)
[2020-08-09] MEDS: dexAMETHasone 4 MG Tablet 12 MG PO (08:21)
[2020-08-09] MEDS: DULoxetine Hcl 60 MG Capsule PO (08:21)
[2020-08-09 08:31] LABS: Absolute Lymphocyte Count 0.19 X10^3/uL (0.83-4.51); Basophil# 0.01 X10^3/uL; Basophil% 0.1 % (0-1); Eosinophil# 0.08 X10^3/uL; Eosinophils% 1.1 % (0-5); Hematocrit 26.9 % (37-47); Hemoglobin 8.8 g/dL (12.0-15.0); Lymphocyte # 0.19 X10^3/ul (4.0); Lymphocyte % 2.7 % (19-41); Mean Corp Hgb Conc 32.7 g/dL (32-36); Mean Corpuscular Hgb 31.9 pg (27.0-32.0); Mean Corpuscular Volume 97.5 fL (81-99); Mean Platelet Vol. 9.6 fl (6.2-12.0); Monocyte% 8.4 % (0-10); NRBC Flagged by Analyzer 0 % (0-5); Neutrophil # 6.03 X10^3/uL (2.7-7.7); Neutrophil % 84.9 % (47-70); POSITIVE DIFFERENTIAL YES; Platelet Count 132 K/mm3 (150-450); RBC Distribution Width CV 16.8 % (11.6-14.6); RBC Distribution Width SD 56.9 fl (35.1-43.9); Red Blood Count 2.76 M/mm3 (4.2-5.4); White Blood Count 7.1 K/mm3 (4.4-11.0)
[2020-08-09 08:42] LABS: Differential Indicated SCAN CRITERIA MET
[2020-08-09 09:04] LABS: Anion Gap 5 (5-15); BUN 10 mg/dL (7-18); BUN/Creat Ratio 20.2 RATIO (10-20); Calcium,Total 7.1 mg/dL (8.5-10.1); Chloride 103 mmol/L (98-107); Creatinine, Serum 0.49 mg/dL (0.55-1.02); EST Glomerular Filtration Rate 138 mL/min (>60); Est Glom Filt Rate - Afr Amer 166 mL/min (>60); Estimated Creatinine Clearance 115.36 ml/min; Glucose 63 mg/dL (74-106); Potassium 4.4 mmol/L (3.5-5.1); Sodium Level 136 mmol/L (136-145)
[2020-08-09 09:33] LABS: Differential Comment SCANNED
--- NOTE | 2020-08-09 12:40 | CASEMGMT ---
STACI BLANCA Face to Face with patient for initial transition planning/care coordination assessment. RN CM introduced self and role at [facility]. Patient lying in bed, alert and oriented. Patient willing to participate in assessment and is able to answer all questions appropriately. Care providers, pharmacy, and demographics verified. Patient wishes to discharge home with resumption of HHC through [facility]. Patient states she has no further needs or concerns at this time. CM to follow for discharge planning needs that may arise. PCP: Maki Specialists: Magdalena, oncologist, Massiel, palliative Preferred Pharmacy: [facility] Sherrie Insurance: MMO Prescription Benefit: yes Living Will/HPOA: yes, sister Natalia Rodgers LNOK: sisters Living Arrangements: Patient lives with 9yo son and sister in a 2 story home with bed and bath on first floor. Patient states she is independent for self care. Transportation: sister DME/HHC: Patient states she has shower chair, BSC, raised toilet, cane, rollator, wheelchair, hospital bed, and grab bars at home. Patient states she currently has HHC with [facility] for nursing and PT. Disposition Plan: Patient to discharge home with resumption of HHC, family support, and follow-up plans in place. Kerry ROMAN, RN, CM
--- NOTE | 2020-08-09 14:43 | CASEMGMT ---
Pt is current w/palliative care, as per CM. SW faxed H&P to [facility] for palliative care. REUBEN Ko
--- NOTE | 2020-08-09 14:45 | PCM.PN.BLA ---
Progress Note 55-year-old female past medical history of renal cell carcinoma status post surgery, multiple myeloma complicated by thoracic and lumbar vertebral fracture who comes in with excruciating abdominal pain and is being managed as acute pancreatitis/ileus. Patient was seen and examined. Vitals are stable. Admitting blood work reviewed, hypokalemia resolved, drop in hemoglobin from 10.1-8.8 likely secondary to hemodilution Continue with n.p.o., IV fluids, repeat blood work in a.m.
[2020-08-09 15:18] LABS: AST(SGOT) 31 U/L (15-37); Alanine Aminotransfer ALT/SGPT 31 U/L (13-56); Albumin, Serum 2.9 g/dL (3.2-5.0); Alkaline Phosphatase 77 U/L (45-117); Bilirubin, Direct 0.09 mg/dL (0.00-0.30); Globulin 2.4 g/dL (2.2-4.2); Protein, Total 5.3 g/dL (6.4-8.2)
[2020-08-09] MEDS: Aspirin E.C. 81 MG Tablet PO (15:33)
[2020-08-10] MEDS: Loratadine 10 MG Tablet PO (00:11)
[2020-08-10] MEDS: HYDROmorphone 2 MG TABLET PO ×3 (00:11→12:04)
[2020-08-10] MEDS: Lactated Ringers 1,000 ML 150 ML IV ×2 (00:11→05:54)
[2020-08-10 02:45] VITALS: BP 134/78; PULSE 97; RESP 16; TEMP 37; O2SAT 97
[2020-08-10 05:43] VITALS: BP 136/73; PULSE 95; RESP 16; TEMP 37; O2SAT 100
[2020-08-10] MEDS: Haloperidol 1 MG Tablet PO ×2 (05:55→13:27)
[2020-08-10] MEDS: Pregabalin 75 MG Capsule PO (05:55)
[2020-08-10] MEDS: Senna/Docusate Sodium 1 Tablet PO (05:56)
[2020-08-10] MEDS: Methocarbamol 500 MG Tablet PO ×2 (05:56→13:27)
[2020-08-10] MEDS: Acyclovir 200 MG Capsule 400 MG PO (05:56)
[2020-08-10] MEDS: Acetaminophen 500 MG Tablet 1000 MG PO ×2 (05:56→13:27)
[2020-08-10 06:08] LABS: Absolute Lymphocyte Count 0.16 X10^3/uL (0.83-4.51); Absolute Neutrophil Count 5.4 X10^3/uL (2.0-7.7); Basophil# 0.01 X10^3/uL; Basophil% 0.2 % (0-1); Eosinophil# 0.04 X10^3/uL; Eosinophils% 0.6 % (0-5); Hematocrit 27.9 % (37-47); Hemoglobin 8.8 g/dL (12.0-15.0); Lymphocyte # 0.16 X10^3/ul (4.0); Lymphocyte % 2.5 % (19-41); Mean Corp Hgb Conc 31.5 g/dL (32-36); Mean Corpuscular Hgb 31.2 pg (27.0-32.0); Mean Corpuscular Volume 98.9 fL (81-99); Mean Platelet Vol. 9.8 fl (6.2-12.0); Monocyte# 0.64 X10^3/uL; NRBC Flagged by Analyzer 0.3 % (0-5); Neutrophil % 84.2 % (47-70); POSITIVE DIFFERENTIAL YES; Platelet Count 115 K/mm3 (150-450); RBC Distribution Width CV 17.3 % (11.6-14.6); RBC Distribution Width SD 60.2 fl (35.1-43.9); Red Blood Count 2.82 M/mm3 (4.2-5.4); White Blood Count 6.4 K/mm3 (4.4-11.0)
[2020-08-10 06:14] LABS: Differential Indicated SCAN CRITERIA MET
[2020-08-10 06:42] LABS: ALB/GLOB Ratio 1.2 RATIO (0.9-2.4); AST(SGOT) 22 U/L (15-37); Alanine Aminotransfer ALT/SGPT 31 U/L (13-56); Alkaline Phosphatase 80 U/L (45-117); Anion Gap 7 (5-15); BUN 6 mg/dL (7-18); BUN/Creat Ratio 12.3 RATIO (10-20); Calcium,Total 7.8 mg/dL (8.5-10.1); Chloride 109 mmol/L (98-107); Cholesterol 189 mg/dL (200); Creatinine, Serum 0.49 mg/dL (0.55-1.02); EST Glomerular Filtration Rate 140 mL/min (>60); Est Glom Filt Rate - Afr Amer 170 mL/min (>60); Estimated Creatinine Clearance 115.36 ml/min; Globulin 2.4 g/dL (2.2-4.2); Glucose 60 mg/dL (74-106); High Density Lipoprotein 79 mg/dL; Lipase 230 U/L (73-393); Potassium 3.9 mmol/L (3.5-5.1); Protein, Total 5.4 g/dL (6.4-8.2); Sodium Level 139 mmol/L (136-145); Triglycerides 144 mg/dL; Very Low Density Lipoprotein 29 mg/dL (5-40)
[2020-08-10 06:51] VITALS: O2SAT 95
[2020-08-10 08:33] VITALS: BP 132/80; PULSE 91; RESP 18; TEMP 37; O2SAT 100
[2020-08-10] MEDS: dexAMETHasone 4 MG Tablet 12 MG PO (08:36)
[2020-08-10] MEDS: DULoxetine Hcl 60 MG Capsule PO (08:36)
--- NOTE | 2020-08-10 09:40 | DCINST_ITS ---
- Discharge Diagnoses Current Active Problems: Current Active and Chronic Problems (Last Reviewed 08/09/20 @ 02:[address] Allan Yost MD) Acute back pain (Chronic) Thoracic vertebral fracture (Chronic) secondary to multiple myeloma Multiple myeloma without remission (Chronic) Lumbar compression fracture (Chronic) recent history of kyphoplasty, due to multiple myeloma Uncontrolled pain (Acute) seconday to thoracic compression fracture Debility (Chronic) Intractable back pain (Chronic) Compression fracture of T11 vertebra (Chronic) Multiple myeloma (Chronic) Muscle spasm (Chronic) Acute pancreatitis (Acute) Hemorrhoids (Chronic) Pain of sternum (Chronic) Pancreatitis (Acute) Obesity (Chronic) Former tobacco use (Chronic) Renal cell cancer (Chronic) Iron deficiency anemia (Chronic) History of nausea and vomiting (Chronic) History of abdominal pain (Chronic) Reason(s) for Visit for Discharge Instructions: Abdominal pain You will use the following diet at home:: Regular Your food should be the consistency of: Regular Your liquids should be the consistency of: Regular/Thin Discharge Activity: Return to Normal Activity Additional Instructions: Continue to keep yourself hydrated. Continue to remain active. Follow-up with your primary care doctor within 2 weeks. Allergies/Adverse Reactions: Allergies latex Allergy (Mild, Verified 08/08/20 21:57) rash Penicillins Allergy (Verified 08/08/20 21:57) Unknown adhesive tape Adverse Reaction (Verified 08/08/20 21:57) Rash Medications to take at Discharge Acetaminophen [Tylenol] 1,000 mg PO TID tab 07/22/20 Diazepam [Valium] 2 mg PO TID PRN PRN #90 tab 07/22/20 Duloxetine Hcl [Cymbalta] 60 mg PO DAILY #30 cap 07/22/20 Famotidine [Pepcid] 20 mg PO BID #60 tab 07/22/20 Haloperidol [Haldol] 1 mg PO Q8H #90 tab 07/22/20 Mag Hydrox/Al Hydrox/Simeth [Mylanta II] 30 ml PO Q6H PRN PRN udc 07/22/20 Menthol/Lanolin/Calamine/Znox [Calmoseptine Ointment] 1 applic TOPICAL 0600,1800 tube 07/22/20 Methocarbamol [Robaxin] 500 mg PO TID #90 tab 07/22/20 Senna/Docusate Sodium [Senokot-S] 1 tab PO DAILY #30 tab 07/22/20 Acyclovir [Zovirax] 400 mg PO BID 08/08/20 Bortezomib SC [Velcade SC] 3.5 mg SQ 08/08/20 Dexamethasone [Decadron] 12 mg PO DAILY 08/08/20 Enoxaparin [Lovenox] 40 mg SC DAILY@0600 08/08/20 Fentanyl 1 ea TD 08/08/20 HYDROmorphone tablet [Dilaudid] 2 mg PO Q4H PRN PRN 08/08/20 HYDROmorphone tablet [Dilaudid] 2 mg PO Q6H 08/08/20 Lenalidomide [Revlimid] 25 mg PO DAILY 08/08/20 Loratadine [Claritin] 10 mg PO DAILY 08/08/20 Polyethylene Glycol 3350 [Miralax] 17 gm PO DAILY PRN PRN 08/08/20 Pregabalin [Lyrica] 75 mg PO BID 08/08/20 Zoledronic Acid 4 mg IV QMONTH 08/08/20 Aspirin [Aspirin, Baby] 81 mg PO 1500 08/09/20 Primary Care Physician: Pia Gambino MD [Primary Care Provider] - Please follow up with your Primary Care Physician in: within 1-2 weeks Test Results: Test results from this visit will be discussed in further detail at your follow- up appointment, if applicable. Proposed Discharge Date: 08/10/20
[2020-08-10] MEDS: Famotidine 200 MG/20 ML MDV 20 MG in 0.9% Normal Saline (Pres. free 8 ML 300 MG IV (09:58)
[2020-08-10] MEDS: 0.9% Saline Lock 10 ML Syringe IV (10:01)
--- NOTE | 2020-08-10 16:31 | PCM.DC.SUM ---
Discharge Date and Diagnosis - Problem List Patient Problems: Active and Suspected Problems (Last Reviewed 08/09/20 @ 02:[address] Allan Yost MD) Uncontrolled pain (Acute) seconday to thoracic compression fracture Acute pancreatitis (Acute) Pancreatitis (Acute) Date of Admission: 08/09/20 Date of Discharge: 08/10/20 - Primary Discharge Diagnosis Acute Problems: Active Problems (Last Reviewed 08/09/20 @ 02:[address] Allan Yost MD) Intractable abdominal pain Elevated lipase Ileus, resolved Acute pancreatitis ruled out Acute microcytic microchromic anemia due to anemia of chronic disease/hemodilution Hypokalemia - Secondary Discharge Diagnosis Chronic Problems: Chronic Problems (Last Reviewed 08/09/20 @ 02:[address] Allan Yost MD) Acute back pain (Chronic) Thoracic vertebral fracture (Chronic) secondary to multiple myeloma Multiple myeloma without remission (Chronic) Lumbar compression fracture (Chronic) recent history of kyphoplasty, due to multiple myeloma Debility (Chronic) Intractable back pain (Chronic) Compression fracture of T11 vertebra (Chronic) Multiple myeloma (Chronic) Muscle spasm (Chronic) Hemorrhoids (Chronic) Pain of sternum (Chronic) Obesity (Chronic) Former tobacco use (Chronic) Renal cell cancer (Chronic) Iron deficiency anemia (Chronic) History of nausea and vomiting (Chronic) History of abdominal pain (Chronic) Hospital Course and Treatment Imaging Results: Clinical Impression(s) from Imaging Studies Abdomen/Pelvis CT 08/08/20 23:32 IMPRESSION: 1. Nonspecific fluid-filled small bowel loops and colon which could be due to ileus. Enterocolitis is possible. 2. Diffuse demineralization of the osseous structures in keeping with a history of multiple myeloma new since previous exam. Electronically Signed: Ruben Castillo MD at 0:27 EDT Tel , Service support , Abdomen Ultrasound 08/09/20 05:55 IMPRESSION: 1. Normal right upper quadrant ultrasound examination. 2. 1.4 cm hemangioma in the left lobe of the liver as seen on CT. 3. 1 cm cyst lower pole the right kidney. Electronically Signed: Juan C Mckay MD at 8:22 EDT Tel , Service support , Operations: None Procedures: None Summary of Care Provided: The patient is a 55 year old F with past medical history of multiple myeloma who comes in with complaints of abdominal discomfort, started 3 weeks prior to presentation but was worse on the day of presentation. She denied any nausea and vomiting. Work-up in the emergency department showed lipase more than 4000. She has a history of pancreatitis x2. CT scan of the abdomen and pelvis showed normal pancreas, nonspecific fluid-filled small bowel loops. Renal ultrasound was unremarkable. She was kept n.p.o., managed on IV fluids and pain control. Her lipase on the day of discharge was 230. She had good bowel movement. She was able to tolerate advancement in her diet. Acute pancreatitis was ruled out with normal pancreas on CT. Her potassium was replaced. Patient will follow-up with her primary care doctor within 2 weeks. Patient Problems: Active and Suspected Problems (Last Reviewed 08/09/20 @ 02:[address] Allan Yost MD) Uncontrolled pain (Acute) seconday to thoracic compression fracture Acute pancreatitis (Acute) Pancreatitis (Acute) Subjective: On the day of discharge, patient was seen and examined. Able to tolerate an advancement in her diet. Denies any nausea or vomiting or diarrhea or fever or chills. Objective: Physical exam: - Physical Exam Vitals/I&O's: Vital Signs Temp Pulse Resp BP Pulse Ox 98.6 F 91 18 132/80 H 100 08/10/20 08:33 08/10/20 08:33 08/10/20 08:33 08/10/20 08:33 08/10/20 08:33 Oxygen Delivery Method Room Air Weight: 87 kg Body Mass Index (BMI) 31.8 Intake and Output for Last 24 Hours 08/08/20 08/09/20 08/10/20 23:59 23:59 22:59 Intake Total 2810 / 2810 2435 / 2435 Output Total 600 / 600 1100 / 1100 Balance 2210 / 2210 1335 / 1335 General: Alert, Oriented x3, Cooperative, No apparent distress HEENT: Atraumatic, PERRLA, EOMI, Normocephalic Oral: Moist Mucosa Neck: Supple Lungs: Clear to auscultation, Normal air movement Cardiovascular: Regular rate, Regular Rhythm, Normal S1, Normal S2, No murmurs Abdomen: Bowel Sounds Present, Soft, Non Tender, Non-Distended, No Hepato-splenomegaly Extremities: No edema Skin: No rashes, No breakdown Musculoskeletal: No Tenderness to Palpation of Joints or Extremities Lymphatic: No Cervical, Supraclavicular, or Inguinal Adenopathy Neurological: Cranial nerves II-XII grossly intact, Neuro grossly intact Psych/Mental Status: Normal Affect, Appropriate Laboratory Results 08/10/20 05:25: WBC 6.4, RBC 2.82 L, Hgb 8.8 L, Hct 27.9 L, MCV 98.9, MCH 31.2, MCHC 31.5 L, RDW Std Deviation 60.2 H, RDW Coeff of Marcia 17.3 H, Plt Count 115 L, MPV 9.8, Immature Gran % (Auto) 2.500 H, Neut % (Auto) 84.2 H, Lymph % (Auto) 2.5 L, [place] % (Auto) 10.0, Eos % (Auto) 0.6, Baso % (Auto) 0.2, Absolute Neuts (auto) 5.4, Absolute Lymphs (auto) 0.16 L, Nucleated RBC % 0.3, Differential Comment COMMENT 08/10/20 05:25: Sodium 139, Potassium 3.9, Chloride 109 H, Carbon Dioxide 23.0, Anion Gap 7, BUN 6 L, Creatinine 0.49 L, Estim Creat Clear Calc 115.36, Est GFR (MDRD) Af Amer 170, Est GFR (MDRD) Non-Af 140, BUN/Creatinine Ratio 12.3, Glucose 60 L, Calcium 7.8 L, Total Bilirubin 0.60, AST 22, ALT 31, Alkaline Phosphatase 80, Total Protein 5.4 L, Albumin 3.0 L, Globulin 2.4, Albumin/Globulin Ratio 1.2, Triglycerides 144, Cholesterol 189, LDL Cholesterol 81, VLDL Cholesterol 29, HDL Cholesterol 79, Lipase 230 Discharge Diet: No Restrictions Discharge Activity: Return to Normal Activity Home Medications: Medications to take at Discharge Acetaminophen [Tylenol] 1,000 mg PO TID tab 07/22/20 Diazepam [Valium] 2 mg PO TID PRN PRN #90 tab 07/22/20 Duloxetine Hcl [Cymbalta] 60 mg PO DAILY #30 cap 07/22/20 Famotidine [Pepcid] 20 mg PO BID #60 tab 07/22/20 Haloperidol [Haldol] 1 mg PO Q8H #90 tab 07/22/20 Mag Hydrox/Al Hydrox/Simeth [Mylanta II] 30 ml PO Q6H PRN PRN udc 07/22/20 Menthol/Lanolin/Calamine/Znox [Calmoseptine Ointment] 1 applic TOPICAL 0600,1800 tube 07/22/20 Methocarbamol [Robaxin] 500 mg PO TID #90 tab 07/22/20 Senna/Docusate Sodium [Senokot-S] 1 tab PO DAILY #30 tab 07/22/20 Acyclovir [Zovirax] 400 mg PO BID 08/08/20 Bortezomib SC [Velcade SC] 3.5 mg SQ 08/08/20 Dexamethasone [Decadron] 12 mg PO DAILY 08/08/20 Enoxaparin [Lovenox] 40 mg SC DAILY@0600 08/08/20 Fentanyl 1 ea TD 08/08/20 HYDROmorphone tablet [Dilaudid] 2 mg PO Q4H PRN PRN 08/08/20 HYDROmorphone tablet [Dilaudid] 2 mg PO Q6H 08/08/20 Lenalidomide [Revlimid] 25 mg PO DAILY 08/08/20 Loratadine [Claritin] 10 mg PO DAILY 08/08/20 Polyethylene Glycol 3350 [Miralax] 17 gm PO DAILY PRN PRN 08/08/20 Pregabalin [Lyrica] 75 mg PO BID 08/08/20 Zoledronic Acid 4 mg IV QMONTH 08/08/20 Aspirin [Aspirin, Baby] 81 mg PO 1500 08/09/20 Primary Care Physician: Pia Gambino MD [Primary Care Provider] - Please follow up with your Primary Care Physician in: within 1-2 weeks Disposition: Home Minutes spent on discharge:: 40 Patient Condition:: Stable Medical Necessity - Tobacco Use Smoking Status: Former smoker Tobacco Use: Non-smoker Meaningful Use Info Meaningful Use Diagnoses (Choose all that apply): None applicable Inpatient E&M: 92177 [facility]
--- NOTE | 2020-08-11 09:07 | CASEMGMT ---
Social Work Note Pt discharged home. SW placed a call to [facility] and left message that pt was discharged home. SW faxed discharge paperwork to [facility]. Kerry Jason CUSTOMER FIELD REPRESENTATIVE, MANAGER OUTREACH
--- NOTE | 2020-08-11 16:05 | CASEMGMT ---
STACI BLANCA Discharge Follow-up Phone Call: MELVIN: Linus Strata: 3 Call Date: 08/11/2020 Discharge Date: 08/10/20 Time of Call: 1605 Duration: 2 min Admitting Diagnosis: Acute Pancreatitis STACI BLANCA completed follow-up phone call after recent hospitalization. Patient states she is doing ok. Had no questions or concerns regarding discharge instructions. Patient is aware to schedule follow-up with PCP. Patient is active with [facility] and they have been in contact with her. Patient had no further questions of concerns.
== END 2020-08-10 13:29 | disposition home or self-care (01) | DRG 92 ==
LOC: ED 08-09 00:49 → MS3 08-09 07:33
PROVIDERS: Admitting Provider Hospitalist; Emergency Provider Emergency Medicine; PCP Internal Medicine; Visit Provider Internal Medicine
DX: G89.29 Other chronic pain (principal); M84.58XA Pathological fracture in neoplastic disease, other specified site, initial encounter for fracture; C90.00 Multiple myeloma not having achieved remission; K56.7 Ileus, unspecified; E66.09 Other obesity due to excess calories; Z68.32 Body mass index [BMI] 32.0-32.9, adult; E87.6 Hypokalemia; F32.9 Major depressive disorder, single episode, unspecified; E83.51 Hypocalcemia; D69.6 Thrombocytopenia, unspecified; D50.9 Iron deficiency anemia, unspecified; D63.8 Anemia in other chronic diseases classified elsewhere; Z85.528 Personal history of other malignant neoplasm of kidney; Z87.891 Personal history of nicotine dependence; Z90.5 Acquired absence of kidney; Z87.19 Personal history of other diseases of the digestive system; Z98.890 Other specified postprocedural states; N80.9 Endometriosis, unspecified; G43.909 Migraine, unspecified, not intractable, without status migrainosus; Z86.19 Personal history of other infectious and parasitic diseases; M19.90 Unspecified osteoarthritis, unspecified site; K21.9 Gastro-esophageal reflux disease without esophagitis; K59.09 Other constipation; Z79.82 Long term (current) use of aspirin; Z79.899 Other long term (current) drug therapy
CPT/HCPCS: 36415; 74177; 76705; 80048; 80053; 80061; 80076; 81001; 83690; 84478; 85025; 93005; 99285; J7030; J7120; Q9967; A4216; J2405; J3490

== ENCOUNTER → 2020-11-11 13:37 | Outpatient (CLI) | payer OTHER, SELFPAY ==
[2020-08-09 02:01] VITALS: BMI 31.8
--- NOTE | 2020-11-11 14:00 | PET_ITS ---
EXAMINATION: FDG PET/CT ? Head to Feet INDICATIONS: A 55-year-old female with history of multiple myeloma presenting for restaging examination. COMPARISON EXAMINATION: MRI of the thoracic spine report dated 10/24/20 TECHNIQUE: Following the intravenous administration of 14.1 mCi of F-18 deoxyglucose via the left hand, multiplanar image acquisitions of the head, neck, chest, abdomen and pelvis, lower extremities to the level of the bilateral mid foot, obtained at one hour post radiopharmaceutical administration contemporaneously interpreted with the current CT of the head, neck, chest, abdomen and pelvis, lower extremities to the level of the bilateral mid foot, dated 11/11/20 via coregistration and MRI of the thoracic spine report dated 10/24/20 reveal: SERUM GLUCOSE LEVEL: 80 mg/dl. HEIGHT: 65 inches. WEIGHT: 197 lbs. FINDINGS: 1. There is no quantitative scintigraphic evidence of abnormal increased glucose metabolism on meticulous inspection of whole body acquisitions to include all three axis reconstructions. 2. Normal physiologic distribution of the radiopharmaceutical is apparent in the hepatic and splenic parenchyma, both renal units, bladder and visualized intestinal tract. The visualized portion of the cerebral cortex demonstrate symmetric and preserved glucose metabolism. Prominent skeletal muscle and left ventricular myocardial distribution of radiopharmaceutical is noted commensurate with the [place]. (Mloina and Lowharjinder, Journal of Nuclear Medicine Technology 31:3, 2003). Pertinent CT findings are as follows: CHEST: There is atherosclerotic calcification defined in the thoracic aorta without evidence of dilatation-aneurysm formation. Bilateral axillary and scattered mediastinal soft tissue densities are non-glucose avid. There are no parenchymal densities-nodules defined in the right and left hemithorax with discernible increased FDG uptake. ABDOMEN AND PELVIS: Pelvic arterial calcification is observed. Bilateral inguinal soft tissue densities with fatty hilus are ametabolic. Postsurgical changes are defined in the right-left adnexal regions. There is questionable evidence of gallbladder sludge. A soft tissue nodule defined in the left upper abdomen appears to represent a splenule and is ametabolic. SKELETAL: Degenerative changes are noted in the cervical, thoracic and lumbar spine without evidence of increased radiopharmaceutical concentration. Kyphoplasty is demonstrated at the level of the fourth lumbar vertebra. Several compression deformities are visualized without evidence of facilitated FDG uptake. PET/PET/CT Tumor Base -Thigh Subs IMPRESSION: 1. NEGATIVE EXAMINATION. There is no definitive quantitative scintigraphic evidence of viable neoplasm. Electronic Signature Juan C Langford D.O. Accurate Quantification of SUVs for this report are calculated using the exclusive [employer]? Technology.??Exclusive [place].S. Patent [employer]? Technology (U.S. Patent No. [id number] [id number]). Electronically Signed: Juan C Langford DO at 22:56 EST Tel , Service support ,
== END ==
PROVIDERS: PCP Internal Medicine; Referring Provider Internal Medicine Hematology & Oncology; Visit Provider Internal Medicine Hematology & Oncology
DX: C90.00 Multiple myeloma not having achieved remission (principal)
CPT/HCPCS: 78815; A9552

== ENCOUNTER → 2020-11-19 15:28 | Outpatient (CLI) | payer OTHER, SELFPAY ==
[2020-08-09 02:01] VITALS: BMI 31.8
--- NOTE | 2020-11-19 15:31 | VDLE_ITS ---
Reason For Study: EDEMA RIGHT LEFT GSV is normal. GSV is normal. CFV is compressible, spontaneous, phasic, CFV is compressible, spontaneous, phasic, competent and demonstrates normal competent, and demonstrates normal augmentation. augmentation. FV is compressible, spontaneous, phasic, FV is compressible, spontaneous, phasic, competent and demonstrates normal competent and demonstrates normal augmentation. augmentation. POP V is compressible, spontaneous, phasic, POP V is compressible, spontaneous, phasic, competent and demonstrates normal competent and demonstrates normal augmentation. augmentation. T/P Trunk is compressible. T/P Trunk is compressible. PTV is compressible. PTV is compressible. RT PerV is compressible. LT PerV is compressible. Procedure This is a venous duplex using B-mode, color flow and spectral Doppler. Exam performed in department. The exam was diagnostic. A preliminary report was called and/or faxed to Dr. Nichols @ [phone] @ 3:50 pm. Image #4 is RT FV MID, image #5 is RT FV DISTAL, image #6 is POP V, image #7 is T/P TRUNK. Interpretation Summary Deep veins of the lower extremities are bilaterally patent and compressible segmentally. There is no evidence of deep vein thrombosis on either side. Valvular competence appears intact within the proximal deep venous systems bilaterally. The great saphenous veins appear bilaterally patent and compressible segmentally. Ordering Physician: Antoine Nichols Referring Physician: Pia Gambino Performed By: Corazon Dao, RODRIGUEZ, RVT
== END ==
PROVIDERS: PCP Internal Medicine; Referring Provider Internal Medicine Hematology & Oncology; Visit Provider Internal Medicine Hematology & Oncology
DX: R60.0 Localized edema (principal); C90.00 Multiple myeloma not having achieved remission
CPT/HCPCS: 93970

== ENCOUNTER 2021-02-02 12:13 | Outpatient (RCR) | payer OTHER, SELFPAY ==
[2020-08-09 02:01] VITALS: BMI 31.8
[2021-02-02 12:35] LABS: Absolute Lymphocyte Count 0.22 X10^3/uL (0.83-4.51); Absolute Neutrophil Count 1.8 X10^3/uL (2.0-7.7); Basophil# 0.03 X10^3/uL; Hemoglobin 9.5 g/dL (12.0-15.0); Lymphocyte # 0.22 X10^3/ul (0.83-4.51); Lymphocyte % 7.6 % (19-41); Mean Corp Hgb Conc 30.6 g/dL (32-36); Mean Corpuscular Hgb 29.2 pg (27.0-32.0); Mean Corpuscular Volume 95.4 fL (81-99); Mean Platelet Vol. 9.6 fl (6.2-12.0); Monocyte# 0.74 X10^3/uL; Monocyte% 25.6 % (0-10); NRBC Flagged by Analyzer 0 % (0-5); Neutrophil # 1.79 X10^3/uL (2.7-7.7); POSITIVE DIFFERENTIAL YES; Platelet Count 138 K/mm3 (150-450); RBC Distribution Width CV 15.1 % (11.6-14.6); RBC Distribution Width SD 51.8 fl (35.1-43.9); Red Blood Count 3.25 M/mm3 (4.2-5.4); White Blood Count 2.9 K/mm3 (4.4-11.0)
[2021-02-02 12:45] LABS: Differential Indicated SCAN CRITERIA MET
[2021-02-02 13:27] LABS: Creatinine, Serum 0.56 mg/dL (0.55-1.02); EST Glomerular Filtration Rate 118 mL/min (>60); Est Glom Filt Rate - Afr Amer 143 mL/min (>60)
[2021-02-03 13:19] LABS: Pathologist Review Reviewed
== END 2021-02-06 23:59 ==
LOC: HHLAB 12:13
PROVIDERS: PCP Internal Medicine
DX: K85.00 Idiopathic acute pancreatitis without necrosis or infection (principal); M84.58XD Pathological fracture in neoplastic disease, other specified site, subsequent encounter for fracture with routine healing; C90.00 Multiple myeloma not having achieved remission
CPT/HCPCS: 82565; 85025

== ENCOUNTER 2021-02-09 11:08 | Outpatient (RCR) | payer OTHER, SELFPAY ==
[2020-08-09 02:01] VITALS: BMI 31.8
[2021-02-09 11:19] LABS: Absolute Lymphocyte Count 0.43 X10^3/uL (0.83-4.51); Absolute Neutrophil Count 2.3 X10^3/uL (2.0-7.7); Basophil# 0.05 X10^3/uL; Basophil% 1.5 % (0-1); Eosinophil# 0.01 X10^3/uL; Eosinophils% 0.3 % (0-5); Hematocrit 29.3 % (37-47); Hemoglobin 9.2 g/dL (12.0-15.0); Lymphocyte # 0.43 X10^3/ul (0.83-4.51); Lymphocyte % 12.7 % (19-41); Mean Corp Hgb Conc 31.4 g/dL (32-36); Mean Corpuscular Hgb 29.1 pg (27.0-32.0); Mean Corpuscular Volume 92.7 fL (81-99); Mean Platelet Vol. 10.1 fl (6.2-12.0); Monocyte# 0.54 X10^3/uL; NRBC Flagged by Analyzer 0 % (0-5); Neutrophil # 2.34 X10^3/uL (2.7-7.7); Neutrophil % 69.2 % (47-70); POSITIVE DIFFERENTIAL YES; Platelet Count 122 K/mm3 (150-450); RBC Distribution Width CV 15.8 % (11.6-14.6); RBC Distribution Width SD 52.4 fl (35.1-43.9); Red Blood Count 3.16 M/mm3 (4.2-5.4); White Blood Count 3.4 K/mm3 (4.4-11.0)
[2021-02-09 11:21] LABS: Differential Indicated SCAN CRITERIA MET
[2021-02-09 11:36] LABS: Creatinine, Serum 0.52 mg/dL (0.55-1.02); EST Glomerular Filtration Rate 130 mL/min (>60); Est Glom Filt Rate - Afr Amer 158 mL/min (>60)
[2021-02-10 13:00] LABS: Pathologist Review Reviewed
== END 2021-02-09 18:00 | disposition home or self-care (01) ==
LOC: HHLAB 11:08
PROVIDERS: PCP Internal Medicine
DX: K85.00 Idiopathic acute pancreatitis without necrosis or infection (principal); M84.58XD Pathological fracture in neoplastic disease, other specified site, subsequent encounter for fracture with routine healing; C90.00 Multiple myeloma not having achieved remission
CPT/HCPCS: 82565; 85025

== ENCOUNTER → 2022-07-26 | Outpatient (CLI) | payer MEDICAID, SELFPAY ==
[2022-07-26 12:48] LABS: Cholesterol 224 mg/dL (200); High Density Lipoprotein 61 mg/dL; Triglycerides 131 mg/dL; Very Low Density Lipoprotein 26 mg/dL (5-40)
== END | disposition home or self-care (01) ==
LOC: BIMLAB 09:38
PROVIDERS: PCP Internal Medicine; Visit Provider Internal Medicine
DX: Z00.00 Encounter for general adult medical examination without abnormal findings (principal)
CPT/HCPCS: 36415; 80061

== ENCOUNTER → 2022-08-16 | Outpatient (CLI) | payer MEDICAID, SELFPAY ==
--- NOTE | 2022-08-16 11:04 | BI_ITS ---
MAMMOGRAPHY - BILATERAL SCREENING REASON FOR EXAM: Female, 57 years old. Routine annual screening examination. PERTINENT HISTORY: Sister with breast cancer. History of multiple myeloma. TECHNIQUE: Digital bilateral breast jaya (3D mammographic acquisition) in the CC and MLO projections. 2-D mediolateral oblique (MLO) and craniocaudad (CC) views of both breasts were obtained. CAD: Full Field Digital Mammography with Computer Added Detection was performed. COMPARISON: Comparison is made with prior study 06/07/2019 and 05/25/2018. FINDINGS: Breast Composition: The breasts are heterogeneously dense, which may obscure small masses. There are no dominant masses or suspicious calcifications. Stable small benign-appearing bilateral axillary No other significant abnormalities are identified. There has been no significant change since the prior study. BI/SCRN MAMM (CAD)W/JAYA BILAT IMPRESSION: Stable bilateral screening mammogram. Yearly follow-up mammogram recommended. (A) ASSESSMENT CATEGORY: BIRADS Category 2: Benign. A letter regarding these results will be sent to the patient by the facility within 30 days. Approximately 10% of breast cancers are not detected by mammography. A normal mammogram should not delay biopsy of a clinically suspicious abnormality. [id number] Electronically Signed: Grady Carcamo MD at 12:20 EST ,
== END | disposition home or self-care (01) ==
PROVIDERS: PCP Internal Medicine; Referring Provider Internal Medicine; Visit Provider Internal Medicine
DX: Z12.31 Encounter for screening mammogram for malignant neoplasm of breast (principal); Z80.3 Family history of malignant neoplasm of breast
CPT/HCPCS: 77063; 77067

== ENCOUNTER → 2024-05-21 | Outpatient (CLI) | payer MEDICARE, MEDICAID, SELFPAY ==
--- NOTE | 2024-05-21 16:18 | US_ITS ---
PROCEDURE: RENAL ULTRASOUND - COMPLETE REASON FOR EXAM: Female, 58 years old. Follow-up renal cyst TECHNIQUE: Ultrasound evaluation of the bilateral kidneys was performed with real-time ultrasonography and static grayscale imaging. COMPARISON: 08/09/2020 FINDINGS: RIGHT KIDNEY: Normal location of the right kidney which is normal in size. The right kidney measures 10.4 x 5.5 x 4.5 cm. There is a normal cortex of the right kidney. The renal cortex measures 1.3 cm. There is no right renal mass or cyst. The previously noted left renal cyst is not seen on this exam. There is no right hydronephrosis. DISTAL RIGHT URETER: There is non-visualization of the distal right ureter. There is no demonstrated right ureterovesical junction calculus. There is a visualized right ureteral jet. LEFT KIDNEY: Normal location of the left kidney which is normal in size. The left kidney measures 10.8 x 5.6 x 5.5 cm. There is a normal cortex of the left kidney. The renal cortex measures 1.3 cm. There is no left renal mass or cyst. There are no left renal calculi. There is no left hydronephrosis. DISTAL LEFT URETER: There is non-visualization of the distal left ureter. There is no demonstrated left ureterovesical junction calculus. There is a visualized left ureteral jet. BLADDER: The distended urinary bladder has a volume of 176 ml. Mild diffuse thickening of the bladder wall measuring about 4 mm could be due to underdistention. US/Kidney and Bladder IMPRESSION: 1. No evidence of hydronephrosis. 2. Previously noted right renal cyst is not visualized on this exam. Electronically Signed: Ruben Castillo MD at 12:34 EDT ,
== END | disposition home or self-care (01) ==
PROVIDERS: PCP Nurse Practitioner Family; Referring Provider Urology; Visit Provider Urology
DX: N28.1 Cyst of kidney, acquired (principal)
CPT/HCPCS: 76770

== ENCOUNTER 2024-10-15 14:51 | Outpatient (RCR) | payer MEDICARE, MEDICAID, SELFPAY ==
--- NOTE | 2024-10-15 15:36 | HP.PTEVAL_ITS ---
Patient's Visit Information Visit Information Visit Information: ALVINO ESPITIA is a 59 year old F referred to Physical Therapy by Dr. Duyen Miles MD with a diagnosis of Vestibular Therapy. Date of Evaluation: 10/15/24 Physical Therapist: IDANIA Becker Visit Plan Frequency: 1x/Week Duration: 3 Weeks Plan: Pt will try sitting smooth pursuit vertical and horizontal head turns and then sitting vor Cx and see if her time and head pressure improve. She will call in in 2 weeks to let me know progress as her major dizziness has resolved Subjective Subjective: Pt was very dizzy but now has not been that dizzy. They are adjusting her meds and she has noticed a big difference since then. She was dizzy approx. 3 weeks ago. Sometimes her dizziness would just come on or if things would move too much or if turn her head too fast. But that has no happened in 3 weeks. Since 2019 she has been using a rollator. No falls. Sometimes she does get car sick and can not read in the car. Pain Back pain: Pain Intensity (Out of 10): 5 Objective Objective: Gait: Walks with rollator with good pace and stride length Pt was able to walk with horizontal and vertical head turns without dizziness Sitting smooth pursuit horizontal X 30 seconds with increase head pressure but no dizziness Sitting vertical smooth pursuit X 30 seconds with no dizziness Sitting VOR CX vertical and horizontal with no dizziness Neck AROM: WFL all planes (neck ext 50%) Balance/Special Test Scores Dizziness Score: 26 Goals Goal 1:: I HEP Goal Time Frame: 2-4 Weeks Rehabilitation Potential Rehabilitation Potential: Good Anticipated Interventions Patient/Client Instruction: Educate patient on: Condition and Plan of Care For the Purpose of:: To improve muscle performance and motor function, To i mprove ability of physical actions for home/community/work/leisure, To improve balance and To improve safety with gait Therapeutic Exercise to Include: Strength training, Balance training and Gait and locomotor training For the Purpose of:: To improve ability to perform ADL's, To improve performance and independence with ADL's and To improve gait and locomotor functions Text: Thank you for the opportunity to evaluate your patient. For Medicare and Medicare HMO plans, please review the plan of care and approve it. It will need to be FAXED BACK to us at [phone] for Medicare purposes. For Medicare only, by signing this I certify the plan of care. Please let me know if there are questions or concerns regarding this plan of care. Physician Signature: Date:
== END 2024-10-15 19:00 | disposition home or self-care (01) ==
LOC: PT 14:51
PROVIDERS: PCP Nurse Practitioner Family; Referring Provider Family Medicine; Visit Provider Family Medicine
DX: H81.4 Vertigo of central origin (principal); M62.81 Muscle weakness (generalized); C90.01 Multiple myeloma in remission
CPT/HCPCS: 97161

== ENCOUNTER 2024-12-18 16:53 | Observation (INO) | payer MEDICARE, MEDICAID, SELFPAY ==
[2024-12-18 16:54] VITALS: BP 173/95; PULSE 85; RESP 22; TEMP 36.5; O2SAT 100
[2024-12-18 16:58] VITALS: BMI 33.5
--- NOTE | 2024-12-18 17:34 | ED.VIS.GI ---
HPI HPI - GI History of Present Illness Chief Complaint: Nausea/Vomiting Informant: patient and family Nausea/Vomiting/Emesis GI Symptom: Positive for Nausea and Vomiting Onset: Days Severity: Moderate Diarrhea/Melena/Hematochezia GI Symptom: Negative for Diarrhea, Melena or Hematochezia Associated Symptoms Associated Symptoms: Negative for Dysuria, Frequency, Hematuria or Urgency Narrative Narrative: 59-year-old female history of multi myeloma currently getting chemotherapy she goes 3 weeks on 1 week off. Also history of endometriosis. She had nausea vomiting since Tuesday. She was seen in the [facility] on Tuesday stay in the emergency department overnight had labs and CAT scan which he stated was negative. She was sent home and started having nausea and vomiting again today. No diarrhea. No fever. No dysuria. No significant abdominal pain. Prior similar symptoms: Yes Recent Illness/Hospitalization: Yes [facility] Medical History 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 health care History of pneumococcal infection Headache, migraine Carpal tunnel syndrome history of bone fracture Back problem Arthritis Seasonal allergies Endometriosis Screening for intestinal cancer Iron deficiency anemia Renal cell cancer Former tobacco use Obesity Pancreatitis URI, acute History of nausea and vomiting History of abdominal pain Home Medications ?Medication ?Instructions ?Recorded ?Last Taken ?Type menthol 0.44 %-zinc oxide 20.6 % 1 applic topical 0600,1800 07/22/20 Unknown Rx topical ointment lorazepam 0.5 mg tablet 0.5 mg PO TID PRN 04/23/21 Unknown History escitalopram oxalate 10 mg tablet 20 mg PO DAILY 07/26/22 Unknown History furosemide 40 mg tablet 40 mg PO .prn 07/26/22 Unknown History glucosamine sulf dipot 1 cap PO 07/26/22 Unknown History chlr,msm,chond 550 mg-C 30 mg-rika 1 mg capsule (Glucosamine Chondroitin) olanzapine 5 mg tablet 5 mg PO DAILY 07/26/22 Unknown History Lactobacillus acidophilus 1 1,000 mmu cells PO DAILY #30 caps 08/19/23 Unknown Rx billion cell capsule (Probiotic Gold Acidophilus) benzonatate 200 mg capsule 200 mg PO TID PRN cough #14 caps 11/14/23 Unknown Rx levofloxacin 500 mg tablet 500 mg PO DAILY #10 tabs 11/14/23 Unknown Rx buspirone 7.5 mg tablet 7.5 mg PO 3XD 12/18/24 Unknown History fentanyl 25 mcg/hr transdermal 1 patch transdermal Q3D 12/18/24 Unknown History patch meclizine 25 mg tablet 25 mg PO TID 12/18/24 Unknown History omeprazole 40 mg capsule,delayed 40 mg PO DAILY 12/18/24 Unknown History release ondansetron HCl 8 mg tablet 4 mg PO 4X/DAY PRN PRN nausea 12/18/24 Unknown History scopolamine base 1 mg over 3 days topical 12/18/24 Unknown History transdermal patch Allergy/AdvReac Type Severity Reaction Status Date / Time latex Allergy Mild rash Verified 12/18/24 16:54 Penicillins Allergy Unknown Verified 12/18/24 16:54 adhesive tape AdvReac Rash Verified 12/18/24 16:54 Family History Brother Asthma Malignant hyperthermia due to anesthesia Hypertension Grandfather Colon cancer Mother Heart disease Thyroid disorder COPD (chronic obstructive pulmonary disease) Arthritis Anemia Sister Breast cancer Hypertension Thyroid disorder Hypothyroid Arthritis Father Bleeding disorder Cancer Lung Myelodysplastic syndrome Chronic lymphocytic leukemia Alcohol abuse Aunt Myocardial infarction Surgical History History of back surgery s/p kidney cancer Status post endometrial ablation Social History household members: children Smoking Status: Former smoker alcohol intake: current alcohol intake frequency: holidays/special occasions only what type of physical activity do you participate in: walking, bicycling, aerobics and weight training do you feel safe at home: Yes ROS ROS ED ROS Narrative Nausea and vomiting. No diarrhea. No fever. No significant abdominal pain. Constitutional Constitutional ED: Denies chills or fever(s) ENT ENT ED: Denies ear pain Cardiovascular Cardiovascular: Denies chest pain Respiratory/Chest Respiratory/Chest: Denies cough or dyspnea Gastrointestinal Gastrointestinal: Reports nausea and vomiting; Denies abdominal pain, constipation, diarrhea or melena Genitourinary Genitourinary ED: Denies dysuria or hematuria Musculoskeletal Musculoskeletal: Denies arthralgias or back pain Integumentary Denies abscess or Abrasions Neurologic Neurologic: Denies headache(s) Psychiatric Psychiatric: Denies anxiety or depression Endocrine Endocrinology: Denies polydipsia Hematologic/Lymphatic Hematologic/Lymphatic: Denies easy bleeding Allergic/Immunologic Allergic/Immunologic ED: Denies mouth swelling, tongue swelling or urticaria EXAM Physical Exam Narrative Exam Narrative: 59-year-old female sitting upright in bed. Vital signs are stable afebrile. She does not look septic or toxic. H EENT exam pupils round react light. Extra motions intact. No facial droop. Dry mucous membranes. Tongue midline. Neck nontender no lymphadenopathy. Lungs clear to auscultation bilaterally. Heart regular rhythm rate about 85 no murmur. Chest wall ribs nontender. Abdomen soft, nondistended normal bowel sounds without peritoneal signs. No significant tenderness. Right upper and lower quadrant unremarkable. No hernia or mass. Moving all 4 extremities. Nontender no edema. Normal strength. Neurologically she is awake alert no focal motor deficits. Back nontender. Benign exam open clinically she does look dehydrated. Const Vital Signs: 12/18/24 16:54 12/18/24 18:53 12/18/24 20:00 Temperature 97.7 F L Temperature Source Oral Pulse Rate 85 72 75 Respiratory Rate 22 H 18 18 Blood Pressure 173/95 H 143/114 H Blood Pressure Mean 121 123 Pulse Ox 100 98 100 Oxygen Delivery Method Room Air Room Air Room Air Positive well nourished and well developed; Negative for cachectic, contractures or unkempt General Appearance ED: well developed; Negative for unkempt, cachectic, contractures or pallor Nutritional Appearance: Negative for cachectic HEENT Reports dry mucous membranes; Denies moist mucous membranes normocephalic and atraumatic Mouth ED: Yes dry mucous membranes Mouth: dry mucous membranes Eyes PERRL and EOMs intact bilaterally General Eye ED: Negative for pale conjunctiva or scleral icterus Neck no lymphadenopathy, supple and no JVD General: Negative for tenderness Carotids: Negative for other Resp normal respiratory effort and clear to auscultation bilaterally Effort and Inspection: Negative for respiratory distress Auscultation: Negative for rales, rhonchi or wheezes Cardio regular rate, regular rhythm, S1 normal heart sound, S2 normal heart sound and no murmurs Rate: Negative for bradycardia or tachycardic Rhythm: Negative for abnormal rhythm GI non-tender, non-distended and no masses Inspection: Negative for abdominal distention Auscultation: normoactive bowel sounds Palpation: soft; Negative for tender or guarding Back/Spine no CVA tenderness General Back: Negative for CVA tenderness Cervical Spine: Negative for cervical spine tenderness Thoracic Spine / Upper Back: Negative for thoracic spinal tenderness Lumbar Spine / Lower Back: Negative for lumbar spinal tenderness Coccyx: Negative for other Extremity full ROM General Extremety ED: Negative for edema or tenderness General Extremity: Negative for edema Neuro CN's II-XII intact bilaterally, moves all extremities and no sensory deficits noted Sensorium / Orientation: alert, oriented to person, oriented to place and oriented to time; Negative for orientation impaired, confused, lethargic or stuporous Motor Exam: Negative for strength 5/5 throughout, general weakness or strength abnormal Psych mental status grossly normal and thought process normal Appearance: Negative for unkempt Attitude: No agitated Mood & Affect: Negative for depressed, anxious or tearful Skin no wounds General Skin Exam: Negative for jaundice or pallor Lesions: no lesions Rashes: no rashes Trauma: Negative for abrasion Nails: Negative for discolored MDM MDM MDM Narrative Medical decision making narrative: 59-year-old female with nausea and vomiting currently on chemotherapy for multiple myeloma. Clinically she looks dehydrated. She received Zofran for nausea and liter normal saline. P.o. fluid challenge. Screening labs. She really just had a CAT scan within the last 48 hours. Her abdomen is benign I do not think she needs additional imaging. Repeat exam at 7:56 PM unchanged. Patient is very emotionally upset and tearful. She is requesting admission. I told her lets try another dose of Zofran. If we cannot get her nausea better we may have to admit her for intractable vomiting. She understands that her labs are completely normal at this time. Repeat exam patient was given a second dose of Zofran and on repeat exam around 9:25 PM she still states she is nauseated. She will be admitted for intractable nausea and vomiting. I have also ordered Reglan. History & Record Review Discussion w/independent historian: Patient and Family Additional record(s) reviewed:: Prior inpatient record Lab Data Attestation: I reviewed the patient's lab results. Lab results narrative: CBC shows a white count of 4.7. H&H 12.8 and 37. Platelets 190. Electrolytes show a gap of 13. Normal BUN and creatinine of 14 and 0.8. Glucose 114. Liver enzymes normal. Lipase normal at 27. Labs: Laboratory Results - last 24 hr 12/18/24 17:43 WBC 4.7 RBC 4.23 Hgb 12.8 Hct 37.8 MCV 89.4 MCH 30.3 MCHC 33.9 RDW Std Deviation 38.3 RDW Coeff of Marcia 11.8 Plt Count 190 MPV 9.6 Immature Gran % (Auto) 0.400 Neut % (Auto) 69.8 Lymph % (Auto) 12.7 L [place] % (Auto) 14.4 H Eos % (Auto) 0.6 Baso % (Auto) 2.1 H Absolute Neuts (auto) 3.3 Absolute Lymphs (auto) 0.60 L Nucleated RBC % 0 Sodium 142 Potassium 3.9 Chloride 105 Carbon Dioxide 23.7 Anion Gap 13 BUN 14 Creatinine 0.86 Estim Creat Clear Calc 77.75 Est GFR (MDRD) Non-Af 78 BUN/Creatinine Ratio 16.0 Glucose 114 H Calcium 9.6 Total Bilirubin 0.52 AST 28 ALT 17 Alkaline Phosphatase 60 Total Protein 6.7 Albumin 4.2 Globulin 2.6 Albumin/Globulin Ratio 1.6 Lipase 27 Discharge Plan Triage Chief Complaint: Nausea/Vomiting ED Provider: Surjit Santizo Dx/Rx/DC Orders Clinical Impression: Vomiting, History of multiple myeloma, History of cancer chemotherapy Prescriptions: No Action lorazepam 0.5 mg tablet 0.5 mg PO TID PRN furosemide 40 mg tablet 40 mg PO .prn olanzapine 5 mg tablet 5 mg PO DAILY Glucosamine Chondroitin 550-30-1 mg capsule 1 cap PO escitalopram oxalate 10 mg tablet 20 mg PO DAILY Probiotic Gold Acidophilus 1 billion cell capsule 1,000 mmu cells PO DAILY Qty: 30 0RF levofloxacin 500 mg tablet 500 mg PO DAILY Qty: 10 0RF benzonatate 200 mg capsule 200 mg PO TID PRN (Reason: cough) Qty: 14 0RF menthol-zinc oxide 1 APPLIC ointment 1 applic TOPICAL 0600,1800 0RF Protocol: *Topical Application Instructions APPLICATION INSTRUCTIONS: bilat buttocks omeprazole 40 mg capsule,delayed release(DR/EC) 40 mg PO DAILY meclizine 25 mg tablet 25 mg PO TID buspirone 7.5 mg tablet 7.5 mg PO 3XD fentanyl 25 mcg/hr patch 72 hour 1 patch transdermal Q3D scopolamine base 1 mg over 3 days patch 3 day topical ondansetron HCl 8 mg tablet 4 mg PO 4X/DAY PRN PRN (Reason: nausea) Primary Care Provider: Care Physician,No Primary Referrals: Ysabel Monsalve, [employer]FITTER APPRENTICE-C [Non-Staff] - Print Language: Croatian
[2024-12-18] MEDS: Ondansetron 4 MG/2 ML Vial IV ×2 (17:43→20:07)
[2024-12-18] MEDS: 0.9% Normal Saline (1000mL) 1,000 ML 999 ML IV (17:43)
[2024-12-18 17:58] LABS: Absolute Neutrophil Count 3.3 X10^3/uL (2.0-7.7); Basophil% 2.1 % (0-1); Eosinophil# 0.03 X10^3/uL; Eosinophils% 0.6 % (0-5); Hematocrit 37.8 % (37-47); Hemoglobin 12.8 g/dL (12.0-15.0); Lymphocyte % 12.7 % (19-41); Mean Corp Hgb Conc 33.9 g/dL (32-36); Mean Corpuscular Hgb 30.3 pg (27.0-32.0); Mean Corpuscular Volume 89.4 fL (81-99); Mean Platelet Vol. 9.6 fl (6.2-12.0); Monocyte# 0.68 X10^3/uL; Monocyte% 14.4 % (0-10); NRBC Flagged by Analyzer 0 % (0-5); Neutrophil # 3.29 X10^3/uL (2.7-7.7); Neutrophil % 69.8 % (47-70); POSITIVE DIFFERENTIAL YES; Platelet Count 190 K/mm3 (150-450); RBC Distribution Width CV 11.8 % (11.6-14.6); RBC Distribution Width SD 38.3 fl (35.1-43.9); Red Blood Count 4.23 M/mm3 (4.2-5.4); White Blood Count 4.7 K/mm3 (4.4-11.0)
[2024-12-18 18:17] LABS: Lipase 27 U/L (13-75)
[2024-12-18 18:19] LABS: ALB/GLOB Ratio 1.6 RATIO (0.9-2.4); AST(SGOT) 28 U/L (<=31); Alanine Aminotransfer ALT/SGPT 17 U/L (<=34); Albumin, Serum 4.2 g/dL (3.4-4.8); Alkaline Phosphatase 60 U/L (35-104); Anion Gap 13 (5-15); BUN 14 mg/dL (4-19); Calcium,Total 9.6 mg/dL (7.6-11.0); Carbon Dioxide 23.7 mmol/L (21.0-32.0); Chloride 105 mmol/L (98-108); Creatinine, Serum 0.86 mg/dL (0.70-1.20); EST Glomerular Filtration Rate 78 (>60); Estimated Creatinine Clearance 77.75 ml/min (50-250); Globulin 2.6 g/dL (2.2-4.2); Glucose 114 mg/dL (70-99); Potassium 3.9 mmol/L (3.3-5.1); Protein, Total 6.7 g/dL (5.9-8.4); Sodium Level 142 mmol/L (133-145); Total Bilirubin 0.52 mg/dL (0.00-1.30)
[2024-12-18 18:53] VITALS: PULSE 72; RESP 18; O2SAT 98
[2024-12-18 20:00] VITALS: BP 143/114; PULSE 75; RESP 18; O2SAT 100
[2024-12-18 21:35] VITALS: BP 159/84; PULSE 72; RESP 16; TEMP 36.6; O2SAT 100
[2024-12-18] MEDS: Metoclopramide 10 MG/2 ML Vial 5 MG IV (21:51)
--- NOTE | 2024-12-18 21:59 | PCM.HP.STD ---
HPI - General General Date of Admission: 12/18/24 Date of Service: 12/18/24 Chief Complaint: nausea and vomiting HPI Narrative ALVINO ESPITIA, is a 59 F with pmhx of multiple myeloma pt of [facility] oncology, undergoing chemo therapy, also with hx of renal cell cancer s/p resection, anxiety and depression, chronic back pain due to multiple vertebral fractures, who presents to [place] ER from home for intractable nausea and vomiting. Patient has chronic nausea and vomiting associated with her chemo which progressively worsened around tuesday. She presented to [facility] ER for the same on tuesday night and was kept in the ER overnight. She was treated with a zofran with some improvement in symptoms, had a CT abdomen which according to her was negative, and was sent home. She continues to have nausea and vomiting with some midepigastric discomfort. Last vomiting was frothy, no blood or coffee grounds noted. Pt is not having diarrhea, last BM was today. Pt is taking zofran at home with little to no improvement and has also been using medical marijuana that she was prescribed for nausea but that did not help at all today. In the ER her labs and vitals area normal but her symptoms were unable to be controlled with zofran. She will be placed in observation overnight for symptom control. COUNTS INCLUDE 234 BEDS AT THE [facility] Medical History 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 health care History of pneumococcal infection Headache, migraine Carpal tunnel syndrome history of bone fracture Back problem Arthritis Seasonal allergies Endometriosis Screening for intestinal cancer Iron deficiency anemia Renal cell cancer Former tobacco use Obesity Pancreatitis URI, acute History of nausea and vomiting History of abdominal pain Home Medications ?Medication ?Instructions ?Recorded ?Last Taken ?Type menthol 0.44 %-zinc oxide 20.6 % 1 applic topical 0600,1800 07/22/20 Unknown Rx topical ointment lorazepam 0.5 mg tablet 0.5 mg PO TID PRN 04/23/21 Unknown History escitalopram oxalate 10 mg tablet 20 mg PO DAILY 07/26/22 Unknown History furosemide 40 mg tablet 40 mg PO .prn 07/26/22 Unknown History glucosamine sulf dipot 1 cap PO 07/26/22 Unknown History chlr,msm,chond 550 mg-C 30 mg-rika 1 mg capsule (Glucosamine Chondroitin) olanzapine 5 mg tablet 5 mg PO DAILY 07/26/22 Unknown History Lactobacillus acidophilus 1 1,000 mmu cells PO DAILY #30 caps 08/19/23 Unknown Rx billion cell capsule (Probiotic Gold Acidophilus) benzonatate 200 mg capsule 200 mg PO TID PRN cough #14 caps 11/14/23 Unknown Rx levofloxacin 500 mg tablet 500 mg PO DAILY #10 tabs 11/14/23 Unknown Rx buspirone 7.5 mg tablet 7.5 mg PO 3XD 12/18/24 Unknown History fentanyl 25 mcg/hr transdermal 1 patch transdermal Q3D 12/18/24 Unknown History patch meclizine 25 mg tablet 25 mg PO TID 12/18/24 Unknown History omeprazole 40 mg capsule,delayed 40 mg PO DAILY 12/18/24 Unknown History release ondansetron HCl 8 mg tablet 4 mg PO 4X/DAY PRN PRN nausea 12/18/24 Unknown History scopolamine base 1 mg over 3 days topical 12/18/24 Unknown History transdermal patch Allergy/AdvReac Type Severity Reaction Status Date / Time latex Allergy Mild rash Verified 12/18/24 16:54 Penicillins Allergy Unknown Verified 12/18/24 16:54 adhesive tape AdvReac Rash Verified 12/18/24 16:54 Family History Brother Asthma Malignant hyperthermia due to anesthesia Hypertension Grandfather Colon cancer Mother Heart disease Thyroid disorder COPD (chronic obstructive pulmonary disease) Arthritis Anemia Sister Breast cancer Hypertension Thyroid disorder Hypothyroid Arthritis Father Bleeding disorder Cancer Lung Myelodysplastic syndrome Chronic lymphocytic leukemia Alcohol abuse Aunt Myocardial infarction Surgical History History of back surgery s/p kidney cancer Status post endometrial ablation Social History household members: children Smoking Status: Former smoker alcohol intake: current alcohol intake frequency: holidays/special occasions only what type of physical activity do you participate in: walking, bicycling, aerobics and weight training do you feel safe at home: Yes ROS Constitutional Constitutional: Reports anorexia; Denies chills, fatigue or fever(s) ENT HEENT: Denies abnormal hearing, ear pain or epistaxis Cardiovascular Cardiovascular: Denies chest pain, dyspnea on exertion or edema Respiratory/Chest Respiratory/Chest: Denies cough, dyspnea or hemoptysis Gastrointestinal Gastrointestinal: Reports abdominal pain, nausea and vomiting; Denies diarrhea, hematemesis or hematochezia Genitourinary Genitourinary: Denies burning urination, difficulty urinating or dysuria Musculoskeletal Musculoskeletal: Reports back pain Neurologic Neurologic: Denies abnormal gait Psychiatric Psychiatric: Denies anxiety or depression Endocrine Endocrinology: Denies change in body appearance Hematologic/Lymphatic Hematologic/Lymphatic: Denies anemia Allergic/Immunologic Allergic/Immunologic: Denies rhinitis Vital Signs Vital Signs Vital Signs: 12/18/24 16:54 12/18/24 18:53 12/18/24 20:00 Temperature 97.7 F L Temperature Source Oral Pulse Rate 85 72 75 Respiratory Rate 22 H 18 18 Blood Pressure 173/95 H 143/114 H Blood Pressure Mean 121 123 Pulse Ox 100 98 100 Oxygen Delivery Method Room Air Room Air Room Air 12/18/24 21:35 Temperature 98 F Temperature Source Pulse Rate 72 Respiratory Rate 16 Blood Pressure 159/84 H Blood Pressure Mean 109 Pulse Ox 100 Oxygen Delivery Method Weight Weight: 91.5 kg Body Mass Index (BMI) 33.5 Physical Exam Const alert and oriented x3 Constitutional Narrative: frankly nauseous General Appearance: cooperative HEENT normocephalic and head/scalp atraumatic Eyes PERRL Neck no lymphadenopathy Resp normal respiratory effort Cardio regular rate and regular rhythm GI normal to inspection, nondistended, normoactive bowel sounds, soft to palpation, non-tender and non-distended Extremity normal to inspection, full ROM and no clubbing, cyanosis or edema Neuro oriented x3 Psych affect normal Results Lab / Micro Data 12/18/24 17:43 12/18/24 17:43 Labs: Laboratory Results - last 24 hr 12/18/24 17:43: WBC 4.7, RBC 4.23, Hgb 12.8, Hct 37.8, MCV 89.4, MCH 30.3, MCHC 33.9, RDW Std Deviation 38.3, RDW Coeff of Marcia 11.8, Plt Count 190, MPV 9.6, Immature Gran % (Auto) 0.400, Neut % (Auto) 69.8, Lymph % (Auto) 12.7 L, [place] % (Auto) 14.4 H, Eos % (Auto) 0.6, Baso % (Auto) 2.1 H, Absolute Neuts (auto) 3.3, Absolute Lymphs (auto) 0.60 L, Nucleated RBC % 0, Sodium 142, Potassium 3.9, Chloride 105, Carbon Dioxide 23.7, Anion Gap 13, BUN 14, Creatinine 0.86, Estim Creat Clear Calc 77.75, Est GFR (MDRD) Non-Af 78, BUN/Creatinine Ratio 16.0, Glucose 114 H, Calcium 9.6, Total Bilirubin 0.52, AST 28, ALT 17, Alkaline Phosphatase 60, Total Protein 6.7, Albumin 4.2, Globulin 2.6, Albumin/Globulin Ratio 1.6, Lipase 27 Assessment & Plan Assessment/Plan (1) Intractable nausea: PLAN: 1. Intractable nausea and vomiting 2/2 chemotherapy for multiple myeloma - chrnoic but worsening since around tuesday with presentation to [facility] ER Tuesday night and subsequent discharge home with failure of outpatient therapy with zofran and medical marijuana. In the ER today she continues to not have improvement with zofran. Also administered reglan x 1. Labs are unremarkable. Had CT abdomen at [facility] ER which was reportedly normal on tuesday so will defer further imaging at this time. She has developed some upper abdominal discomfort since vomiting today, no blood in vomit or coffee ground emesis. Pt will be placed on IV fluids, with zofran, reglan, and scopolamine. Pt NPO at this time if symptoms improved may attempt to advance in the AM. Continue home PPI. 2. Chronic severe back pain 2/2 approx 10-12x vertebral fractures 2/2 multiple myeloma - continue duragesic patch 3. anx/dep/mood disorder - resume home meds when appropriate (buspirone, lexapro, olanzapine) 4. Hx renal cell cancer s/p resection DVT ppx: lovenox This patient was seen by Irineo Perez PA-C under the supervision of Doctor Watkins.
[2024-12-18 22:00] VITALS: BP 150/79; PULSE 96; RESP 18; O2SAT 99
[2024-12-18 22:54] VITALS: BP 155/97; PULSE 88; RESP 18; TEMP 37.3; O2SAT 97
[2024-12-18 22:58] VITALS: BMI 37.7
[2024-12-18] MEDS: 0.9% Normal Saline (1000mL) 1,000 ML 100 ML IV (23:45)
[2024-12-19 04:28] VITALS: BP 147/87; PULSE 68; RESP 18; TEMP 37.2; O2SAT 99
[2024-12-19] MEDS: Ondansetron 4 MG/2 ML Vial IV ×2 (04:29→16:07)
[2024-12-19 07:19] LABS: Absolute Lymphocyte Count 1.29 X10^3/uL (0.83-4.51); Absolute Neutrophil Count 2.2 X10^3/uL (2.0-7.7); Basophil% 2.3 % (0-1); Eosinophil# 0.08 X10^3/uL; Eosinophils% 1.8 % (0-5); Hematocrit 33.4 % (37-47); Hemoglobin 11.1 g/dL (12.0-15.0); Lymphocyte # 1.29 X10^3/ul (0.83-4.51); Lymphocyte % 29.5 % (19-41); Mean Corp Hgb Conc 33.2 g/dL (32-36); Mean Corpuscular Hgb 29.8 pg (27.0-32.0); Mean Corpuscular Volume 89.8 fL (81-99); Mean Platelet Vol. 10.1 fl (6.2-12.0); NRBC Flagged by Analyzer 0 % (0-5); Neutrophil % 50.2 % (47-70); Platelet Count 172 K/mm3 (150-450); RBC Distribution Width CV 11.9 % (11.6-14.6); RBC Distribution Width SD 38.5 fl (35.1-43.9); Red Blood Count 3.72 M/mm3 (4.2-5.4); White Blood Count 4.4 K/mm3 (4.4-11.0)
[2024-12-19 08:12] LABS: Anion Gap 10 (5-15); BUN 11 mg/dL (4-19); BUN/Creat Ratio 12.7 RATIO (10-20); Calcium,Total 8.6 mg/dL (7.6-11.0); Carbon Dioxide 23.4 mmol/L (21.0-32.0); Chloride 111 mmol/L (98-108); Creatinine, Serum 0.87 mg/dL (0.70-1.20); EST Glomerular Filtration Rate 76 (>60); Estimated Creatinine Clearance 70.43 ml/min (50-250); Glucose 88 mg/dL (70-99); Potassium 3.5 mmol/L (3.3-5.1); Sodium Level 144 mmol/L (133-145)
[2024-12-19 08:23] VITALS: BP 141/70; PULSE 64; RESP 14; TEMP 35.8; O2SAT 96
[2024-12-19] MEDS: Metoclopramide 10 MG/2 ML Vial 2.5 MG IV ×3 (09:01→21:10)
[2024-12-19 10:00] VITALS: PULSE 64; RESP 14; O2SAT 96
[2024-12-19 14:33] VITALS: BP 155/89; PULSE 72; RESP 14; TEMP 37; O2SAT 99
[2024-12-19 14:34] VITALS: RESP 14; O2SAT 99
--- NOTE | 2024-12-19 15:00 | CASEMGMT ---
Met with patient to complete YOST form. YOST form explained to patient who voiced understanding and signed form. Original form placed in pt?s chart and copy provided to patient. Dona Pineda, Discharge Planning Asst
[2024-12-19] MEDS: 0.9% Saline Lock 10 ML Syringe IV ×3 (15:03→21:10)
--- NOTE | 2024-12-19 15:21 | PN.HOSP_ITS ---
Reason for Visit Reason for Visit: Diagnoses Nausea (12/18/24) Subjective Subjective Patient reports her nausea is significantly improved with the IV medication but returns as it wears off, does not necessarily find the scopolamine patch helpful, does report intermittent chronic diarrhea but said that today she had a stool that was abnormal for her. Also reports that her nausea does not seem to have a specific temporal pattern with her chemotherapy and happens almost at random but is chronic in nature, she is concerned that there is something additional wrong Objective Data Objective Data Vital Signs: Vital Signs Temp Pulse Resp BP Pulse Ox O2 Del Method 98.6 F 72 14 155/89 H 99 Room Air 12/19/24 14:33 12/19/24 14:33 12/19/24 14:34 12/19/24 14:33 12/19/24 14:34 12/19/24 14:34 Oxygen Delivery Method Room Air Weight: 90.492 kg Body Mass Index (BMI) 37.7 Intake & Output: Intake and Output for Last 24 Hours 12/17/24 12/18/24 12/19/24 23:59 23:59 23:59 Intake Total 1000 / 1000 1000 / 1000 Balance 1000 / 1000 1000 / 1000 Lab / Micro Data 12/19/24 06:46 12/19/24 06:46 Labs: Laboratory Results - last 24 hr 12/18/24 17:43: WBC 4.7, RBC 4.23, Hgb 12.8, Hct 37.8, MCV 89.4, MCH 30.3, MCHC 33.9, RDW Std Deviation 38.3, RDW Coeff of Marcia 11.8, Plt Count 190, MPV 9.6, Immature Gran % (Auto) 0.400, Neut % (Auto) 69.8, Lymph % (Auto) 12.7 L, [place] % (Auto) 14.4 H, Eos % (Auto) 0.6, Baso % (Auto) 2.1 H, Absolute Neuts (auto) 3.3, Absolute Lymphs (auto) 0.60 L, Nucleated RBC % 0, Sodium 142, Potassium 3.9, Chloride 105, Carbon Dioxide 23.7, Anion Gap 13, BUN 14, Creatinine 0.86, Estim Creat Clear Calc 77.75, Est GFR (MDRD) Non-Af 78, BUN/Creatinine Ratio 16.0, G lucose 114 H, Calcium 9.6, Total Bilirubin 0.52, AST 28, ALT 17, Alkaline Phosphatase 60, Total Protein 6.7, Albumin 4.2, Globulin 2.6, Albumin/Globulin Ratio 1.6, Lipase 27 12/19/24 06:46: WBC 4.4, RBC 3.72 L, Hgb 11.1 L, Hct 33.4 L, MCV 89.8, MCH 29.8, MCHC 33.2, RDW Std Deviation 38.5, RDW Coeff of Marcia 11.9, Plt Count 172, MPV 10.1, Immature Gran % (Auto) 0.200, Neut % (Auto) 50.2, Lymph % (Auto) 29.5, M [place] % (Auto) 16.0 H, Eos % (Auto) 1.8, Baso % (Auto) 2.3 H, Absolute Neuts (auto) 2.2, Absolute Lymphs (auto) 1.29, Nucleated RBC % 0, Sodium 144, Potassium 3.5, Chloride 111 H, Carbon Dioxide 23.4, Anion Gap 10, BUN 11, Creatinine 0.87, Estim Creat Clear Calc 70.43, Est GFR (MDRD) Non-Af 76, BUN/Creatinine Ratio 12.7, Glucose 88, Calcium 8.6 Physical Exam Narrative General: Alert, oriented, no apparent distress HEENT: Atraumatic, normocephalic Eyes: extraocular movements grossly intact Neck: Supple Respiratory: normal respiratory effort Cardiovascular: no edema appreciated GI: nondistended Extremities: Moving all extremities Neuro: No overt focal neurological deficits Psych: Cooperative Assessment & Plan Assessment/Plan (1) Intractable nausea: PLAN: Plan # Intractable nausea -Patient has chronic intermittent nausea but reports it has been worse since Tuesday, does find the IV antiemetics helpful but since symptoms return when it starts to wear off -Does not necessarily find the scopolamine patch helpful -Patient tolerating diet so diet has been advanced to transitional -Does also report that, while she has chronic diarrhea, her stool today was different for her so stool studies have been ordered -Of note patient does use medical marijuana, unclear if this could be contributing -GI consult pending # Multiple myeloma -Patient of [facility] oncology undergoing chemotherapy -Patient initially went to [facility] ER for the same complaints on Tuesday night and was kept in ER overnight and discharged home after negative CAT scan and with some improvement with Zofran -Given continued symptoms she presented to [facility] -Supportive care as above # History of renal cell carcinoma -Status post resection #Depression/anxiety -Continue home medications # Chronic back pain -Due to multiple vertebral fractures -Supportive care #DVT ppx: Lovenox subcu Corin Flores MD Time spent in the patient's overall evaluation, decision-making process, review of diagnostic data, adjustment of management, discussion with other providers, nursing and ancillary staff involved in patient's care documentation, 35 Minutes Charges/Coding Visit Charges Inpatient E&M: 97200 Subs Hosp L2
--- NOTE | 2024-12-19 16:34 | NURSING ---
All documentation by nursing consultant Ashley Danielle reviewed by chief nursing executive Lawanda HARPERN, RN.
[2024-12-19 20:43] VITALS: BP 151/82; PULSE 79; RESP 18; TEMP 36.9; O2SAT 99
[2024-12-20 03:36] VITALS: BP 139/70; PULSE 65; RESP 16; TEMP 36.6; O2SAT 99
[2024-12-20] MEDS: Ondansetron 4 MG/2 ML Vial IV ×3 (03:45→22:03)
[2024-12-20] MEDS: 0.9% Saline Lock 10 ML Syringe IV ×5 (03:45→22:03)
[2024-12-20 06:50] LABS: Hematocrit 34.8 % (37-47); Hemoglobin 11.7 g/dL (12.0-15.0); Mean Corp Hgb Conc 33.6 g/dL (32-36); Mean Corpuscular Hgb 30.2 pg (27.0-32.0); Mean Corpuscular Volume 89.7 fL (81-99); Mean Platelet Vol. 9.4 fl (6.2-12.0); Platelet Count 166 K/mm3 (150-450); RBC Distribution Width CV 11.8 % (11.6-14.6); RBC Distribution Width SD 38.5 fl (35.1-43.9); Red Blood Count 3.88 M/mm3 (4.2-5.4); White Blood Count 4.3 K/mm3 (4.4-11.0)
[2024-12-20] MEDS: Metoclopramide 10 MG/2 ML Vial 2.5 MG IV ×2 (08:37→15:48)
[2024-12-20 08:55] VITALS: BP 129/78; PULSE 75; RESP 14; TEMP 36.6; O2SAT 98
[2024-12-20 09:14] LABS: Magnesium 2.3 mg/dL (1.5-2.2)
[2024-12-20 09:43] LABS: ALB/GLOB Ratio 1.8 RATIO (0.9-2.4); AST(SGOT) 20 U/L (<=31); Alanine Aminotransfer ALT/SGPT 15 U/L (<=34); Albumin, Serum 3.8 g/dL (3.4-4.8); Alkaline Phosphatase 51 U/L (35-104); Anion Gap 10 (5-15); BUN 13 mg/dL (4-19); BUN/Creat Ratio 15.2 RATIO (10-20); Calcium,Total 8.6 mg/dL (7.6-11.0); Carbon Dioxide 23.5 mmol/L (21.0-32.0); Chloride 110 mmol/L (98-108); Creatinine, Serum 0.86 mg/dL (0.70-1.20); EST Glomerular Filtration Rate 77 (>60); Estimated Creatinine Clearance 71.25 ml/min (50-250); Globulin 2.1 g/dL (2.2-4.2); Glucose 90 mg/dL (70-99); Potassium 3.5 mmol/L (3.3-5.1); Protein, Total 5.9 g/dL (5.9-8.4); Sodium Level 143 mmol/L (133-145); Total Bilirubin 0.47 mg/dL (0.00-1.30)
--- NOTE | 2024-12-20 15:12 | NM_ITS ---
PROCEDURE: GASTRIC EMPTYING STUDY REASON FOR EXAM: INTRACTABLE NAUSEA Chemotherapy for multiple myeloma. TECHNIQUE: The patient ingested a mixture of 1.2 mCi of sulfur colloid and oatmeal. The gastric emptying scan was obtained. RADIOPHARMACEUTICAL: 1.2 mCi of technetium labeled sulfur colloid. COMPARISON: None. FINDINGS: At 60 minutes, 49% of the radiopharmaceutical exited the stomach. This is a normal study. NM/Gastric Emptying Study IMPRESSION: NO SCINTIGRAPHIC EVIDENCE OF delayed gastric emptying.. Reading Location: [place] [id number]
[2024-12-20 17:00] VITALS: BP 149/97; PULSE 78; RESP 14; TEMP 36.6; O2SAT 99
--- NOTE | 2024-12-20 17:28 | PN.HOSP_ITS ---
Reason for Visit Reason for Visit: Diagnoses Nausea (12/18/24) Subjective Subjective Patient reports she does well as long she takes the IV nausea medicine, is helping her tolerate food, she is concerned as soon as it starts to wear off she has resumption of her nausea Objective Data Objective Data Vital Signs: Vital Signs Temp Pulse Resp BP Pulse Ox O2 Del Method 97.8 F 78 14 149/97 H 99 Room Air 12/20/24 17:00 12/20/24 17:00 12/20/24 17:00 12/20/24 17:00 12/20/24 17:00 12/20/24 17:00 Oxygen Delivery Method Room Air Weight: 90.492 kg Body Mass Index (BMI) 37.7 Intake & Output: Intake and Output for Last 24 Hours 12/18/24 12/19/24 12/20/24 23:59 23:59 23:59 Intake Total 1000 / 1000 1000 / 1000 300 / 300 Balance 1000 / 1000 1000 / 1000 300 / 300 Medical Nutrition Assessment Dietitian: Malnutrition Criteria Met Start: 12/19/24 11:40 Freq: Status: Active Protocol: Document 12/19/24 15:47 SB (Rec: 12/19/24 15:47 SB [id number]) Nutrition Malnutrition Evidence of Yes Malnutrition Exists Malnutrition (severe Chronic ): Evidenced By Suboptimal Energy Intake (Severe),Weight Loss (Severe) Clinical Problem Chronic Disease or Condition Related Malnutrition Etiology severe related to inadequate oral intake and increased energy expenditure d/t renal cell cancer Signs/Symptoms as evidenced by PO meeting <75% of estimated nutrition needs x >3 months and 8% unintentional weight loss x 1 month. Status Active Problem Recommendation Dietitian Recommend advanced diet as tolerated to regular diet. Recommendations/ As diet is advanced order 240ml chocolate carnation Changes instant breakfast TID with meals. Will monitor weight trends. Lab / Micro Data 12/20/24 06:28 12/20/24 06:28 Labs: Laboratory Results - last 24 hr 12/20/24 06:28: WBC 4.3 L, RBC 3.88 L, Hgb 11.7 L, Hct 34.8 L, MCV 89.7, MCH 30.2, MCHC 33.6, RDW Std Deviation 38.5, RDW Coeff of Marcia 11.8, Plt Count 166, MPV 9.4, Sodium 143, Potassium 3.5, Chloride 110 H, Carbon Dioxide 23.5, Anion Gap 10, BUN 13, Creatinine 0.86, Estim Creat Clear Calc 71.25, Est GFR (MDRD) Non-Af 77, BUN/Creatinine Ratio 15.2, Glucose 90, Calcium 8.6, Magnesium 2.3 H, Total Bilirubin 0.47, AST 20, ALT 15, Alkaline Phosphatase 51, Total Protein 5.9, Albumin 3.8, Globulin 2.1 L, Albumin/Globulin Ratio 1.8 Micro: Microbiology 12/19/24 20:40 Stool Enteric Bacteriology - Final 12/19/24 20:40 Stool C. difficile GDH Antigen & Toxins - Final 12/19/24 20:40 Stool Clostridioides difficile (PCR) - Final Physical Exam Narrative General: Alert, oriented, no apparent distress HEENT: Atraumatic, normocephalic Eyes: extraocular movements grossly intact Neck: Supple Respiratory: normal respiratory effort Cardiovascular: no edema appreciated GI: nondistended Extremities: Moving all extremities Neuro: No overt focal neurological deficits Psych: Cooperative Assessment & Plan Assessment/Plan (1) Intractable nausea: PLAN: Plan # Intractable nausea -Patient has chronic intermittent nausea but reports it has been worse since Tuesday, does find the IV antiemetics helpful but since symptoms return when it starts to wear off -Does not necessarily find the scopolamine patch helpful -Patient tolerating diet so diet has been advanced to transitional -Does also report that, while she has chronic diarrhea, her stool today was different for her so stool studies have been ordered -Of note patient does use medical marijuana, unclear if this could be contributing -GI consult pending -12/20: GI evaluated, CT abdomen pelvis ordered as well as a gastric emptying study, doing well with IV nausea medication so this has been continued, tolerating transitional diet, will continue. Of note patient has chronic pain due to her multiple myeloma and vertebral fractures and was on a fentanyl patch, she had been on this for months consistently but took it off the day prior to coming in that she was worried maybe it was making her worse, do suspect that some of the additional diarrhea and maybe some of the additional nausea on top of what she was already experiencing may be due to opiate withdrawal, patient verbalizes understanding, does not want to put her fentanyl patch back on at this time #Depression/anxiety -Continue home medications -12/20: Due to patient's nausea she had not been taking her BuSpar or her Lexapro and thus was also refusing them here, discussed with patient, these have been discontinued and she does not wish to be taking them at this time # Chronic back pain -Due to multiple vertebral fractures -Supportive care -12/20: Patient 100 mL fentanyl patch as above, while it is likely not the cause of all of her symptoms and likely is exacerbating them on top of her already worsened symptoms, supportive care provided # Multiple myeloma -Patient of [facility] oncology undergoing chemotherapy -Patient initially went to [facility] ER for the same complaints on Tuesday night and was kept in ER overnight and discharged home after negative CAT scan and with some improvement with Zofran -Given continued symptoms she presented to [place] ER -Supportive care as above -12/20: Will need to continue to follow on outpatient basis Chronic medical problems: # History of renal cell carcinoma -Status post resection #DVT ppx: Lovenox subcu Corin Flores MD Charges/Coding Visit Charges Inpatient E&M: 71777 Subs Hosp L2
--- NOTE | 2024-12-20 18:18 | CT_ITS ---
PROCEDURE: ABDOMEN/PELVIS WITH CONTRAST REASON FOR EXAM: ABDOMINAL AND INTRACTABLE NAUSEA TECHNIQUE: Abdomen and pelvis CT with intravenous contrast. IV CONTRAST: COMPARISON: None. FINDINGS: Lung bases: Clear Liver: Homogeneous attenuation. 10 mm left hepatic lobe low-attenuation lesion (series 2, image 53), with suggestion of peripheral nodular enhancement, likely represents a hemangioma. Other scattered bilobar low-attenuation lesions, likely represent simple cysts. . Gallbladder: No ductal dilation. Gallbladder is unremarkable Spleen: Unremarkable. Pancreas: Unremarkable. Adrenals: Unremarkable. Kidneys: Unremarkable. Bladder: Unremarkable. Reproductive Organs: Unremarkable. Bowel: Stomach is unremarkable. No bowel dilation or significant wall thickening. Enteric contrast is noted throughout the small bowel and colon. Appendix is normal. Appendix: Appendix is normal. Lymph nodes: No suspicious lymph node enlargement. Vasculature: Mild diffuse atherosclerotic calcifications are noted. Peritoneum / Retroperitoneum: No ascites. No free air. Bones: Diffuse osteopenia. [id number] multilevel compression deformities throughout the imaged thoracolumbar spine. Postoperative changes L5 kyphoplasty. [id number] multilevel degenerative changes. CT/Abdomen/Pelvis WITH Contrast IMPRESSION: 1. No acute findings in the abdomen and pelvis. 2. 10 mm left hepatic lobe lesion, suggestive of a hemangioma. This may be fur ther evaluated with MRI of the liver with and without contrast. 3. Diffuse osteopenia and multilevel compression deformities thoracolumbar spin e as described above. One or more dose reduction techniques were used (e.g., Automated exposure contr ol, adjustment of the mA and/or kV according to patient size, use of iterative reconstruction technique). Reading Location: [place]
[2024-12-20 18:46] VITALS: BP 144/106; PULSE 85; RESP 16; TEMP 36.6; O2SAT 97
[2024-12-20] MEDS: Scopolamine 1mg/72hr Patch 1 PATCH TD (18:57)
[2024-12-20 22:06] VITALS: BP 139/87; PULSE 74; RESP 16; TEMP 36.8; O2SAT 99
[2024-12-21 03:49] VITALS: BP 149/90; PULSE 68; RESP 16; TEMP 36.6; O2SAT 98
[2024-12-21] MEDS: 0.9% Saline Lock 10 ML Syringe IV ×4 (03:53→21:22)
[2024-12-21] MEDS: Metoclopramide 10 MG/2 ML Vial 2.5 MG IV ×2 (03:53→12:20)
[2024-12-21 06:35] LABS: Hemoglobin 11.3 g/dL (12.0-15.0); Mean Corp Hgb Conc 34.2 g/dL (32-36); Mean Corpuscular Hgb 30.7 pg (27.0-32.0); Mean Corpuscular Volume 89.7 fL (81-99); Platelet Count 177 K/mm3 (150-450); RBC Distribution Width CV 11.8 % (11.6-14.6); RBC Distribution Width SD 38.4 fl (35.1-43.9); Red Blood Count 3.68 M/mm3 (4.2-5.4); White Blood Count 4.4 K/mm3 (4.4-11.0)
[2024-12-21 07:30] VITALS: BP 147/94; PULSE 74; RESP 14; TEMP 36.6; O2SAT 98
--- NOTE | 2024-12-21 07:39 | PCM.PN.HOSP ---
Reason for Visit Reason for Visit: Diagnoses Nausea (12/18/24) Subjective Subjective Patient sitting up with friend in room, received the Haldol and seem to work initially the patient is nauseous again, discussed negative test results and patient little bit tearful because she was hoping there would be something that we would find that we could treat. Does report over the past couple of days she intermittently will be a little lightheaded or dizzy Objective Data Objective Data Vital Signs: Vital Signs Temp Pulse Resp BP Pulse Ox O2 Del Method 97.9 F 68 16 149/90 H 98 Room Air 12/21/24 03:49 12/21/24 03:49 12/21/24 03:49 12/21/24 03:49 12/21/24 03:49 12/21/24 03:49 Oxygen Delivery Method Room Air Weight: 90.492 kg Body Mass Index (BMI) 37.7 Intake & Output: Intake and Output for Last 24 Hours 12/19/24 12/20/24 12/21/24 23:59 23:59 23:59 Intake Total 1000 / 1000 300 / 500 200 / 200 Balance 1000 / 1000 300 / 500 200 / 200 Medical Nutrition Assessment Dietitian: Malnutrition Criteria Met Start: 12/19/24 11:40 Freq: Status: Active Protocol: Document 12/19/24 15:47 SB (Rec: 12/19/24 15:47 SB [id number]) Nutrition Malnutrition Evidence of Yes Malnutrition Exists Malnutrition (severe Chronic ): Evidenced By Suboptimal Energy Intake (Severe),Weight Loss (Severe) Clinical Problem Chronic Disease or Condition Related Malnutrition Etiology severe related to inadequate oral intake and increased energy expenditure d/t renal cell cancer Signs/Symptoms as evidenced by PO meeting <75% of estimated nutrition needs x >3 months and 8% unintentional weight loss x 1 month. Status Active Problem Recommendation Dietitian Recommend advanced diet as tolerated to regular diet. Recommendations/ As diet is advanced order 240ml chocolate carnation Changes instant breakfast TID with meals. Will monitor weight trends. Lab / Micro Data 12/21/24 06:10 12/21/24 06:10 Labs: Laboratory Results - last 24 hr 12/20/24 06:28: Sodium 143, Potassium 3.5, Chloride 110 H, Carbon Dioxide 23.5, Anion Gap 10, BUN 13, Creatinine 0.86, Estim Creat Clear Calc 71.25, Est GFR (MDRD) Non-Af 77, BUN/Creatinine Ratio 15.2, Glucose 90, Calcium 8.6, Magnesium 2.3 H, Total Bilirubin 0.47, AST 20, ALT 15, Alkaline Phosphatase 51, Total Protein 5.9, Albumin 3.8, Globulin 2.1 L, Albumin/Globulin Ratio 1.8 12/21/24 06:10: WBC 4.4, RBC 3.68 L, Hgb 11.3 L, Hct 33.0 L, MCV 89.7, MCH 30.7, MCHC 34.2, RDW Std Deviation 38.4, RDW Coeff of Marcia 11.8, Plt Count 177, MPV 10.0 Micro: Microbiology 12/19/24 20:40 Stool Enteric Bacteriology - Final 12/19/24 20:40 Stool C. difficile GDH Antigen & Toxins - Final 12/19/24 20:40 Stool Clostridioides difficile (PCR) - Final Radiography Diagnostic Testing: Radiology Impression Abdomen/Pelvis CT 12/20/24 18:18 IMPRESSION: 1. No acute findings in the abdomen and pelvis. 2. 10 mm left hepatic lobe lesion, suggestive of a hemangioma. This may be further evaluated with MRI of the liver with and without contrast. 3. Diffuse osteopenia and multilevel compression deformities thoracolumbar spine as described above. One or more dose reduction techniques were used (e.g., Automated exposure control, adjustment of the mA and/or kV according to patient size, use of iterative reconstruction technique). Reading Location: [facility] Physical Exam Narrative General: Alert, oriented, no apparent distress HEENT: Atraumatic, normocephalic Eyes: Anicteric, normal conjunctiva, extraocular movements grossly intact Neck: Supple Respiratory: Clear to auscultation bilaterally, normal respiratory effort Cardiovascular: Regular rate and rhythm GI: Soft, nontender, nondistended Extremities: No edema Musculoskeletal: Moving all extremities Neuro: No overt focal neurological deficits Skin: No rashes appreciated Psych: Tearful at times Assessment & Plan Assessment/Plan (1) Intractable nausea: PLAN: Plan # Intractable nausea -Patient has chronic intermittent nausea but reports it has been worse since Tuesday, does find the IV antiemetics helpful but since symptoms return when it starts to wear off -Does not necessarily find the scopolamine patch helpful -Patient tolerating diet so diet has been advanced to transitional -Does also report that, while she has chronic diarrhea, her stool today was different for her so stool studies have been ordered -Of note patient does use medical marijuana, unclear if this could be contributing -GI consult pending -12/20: GI evaluated, CT abdomen pelvis ordered as well as a gastric emptying study, doing well with IV nausea medication so this has been continued, tolerating transitional diet, will continue. Of note patient has chronic pain due to her multiple myeloma and vertebral fractures and was on a fentanyl patch, she had been on this for months consistently but took it off the day prior to coming in that she was worried maybe it was making her worse, do suspect that some of the additional diarrhea and maybe some of the additional nausea on top of what she was already experiencing may be due to opiate withdrawal, patient verbalizes understanding, does not want to put her fentanyl patch back on at this time -12/21: CT of the abdomen and pelvis with no acute process, gastric emptying study within normal limits, patient back on diet, GI following and patient given a dose of IV steroids and started on scheduled Haldol, seem to help initially but patient becoming nauseous again, appreciate further GI recommendations, supportive care provided Chronic medical problems: #Depression/anxiety -Continue home medications -12/20: Due to patient's nausea she had not been taking her BuSpar or her Lexapro and thus was also refusing them here, discussed with patient, these have been discontinued and she does not wish to be taking them at this time # Chronic back pain -Due to multiple vertebral fractures -Supportive care -12/20: Patient 100 mL fentanyl patch as above, while it is likely not the cause of all of her symptoms and likely is exacerbating them on top of her already worsened symptoms, supportive care provided # Multiple myeloma -Patient of [facility] oncology undergoing chemotherapy -Patient initially went to [facility] ER for the same complaints on Tuesday night and was kept in ER overnight and discharged home after negative CAT scan and with some improvement with Zofran -Given continued symptoms she presented to [place] ER -Supportive care as above -12/20: Will need to continue to follow on outpatient basis # History of renal cell carcinoma -Status post resection #DVT ppx: Lovenox subcu Corin Flores, MD Time spent in the patient's overall evaluation,decision-making process, review of diagnostic data, adjustment of management, discussion with other providers, nursing nursing and ancillary staff involved in patient's care documentation, 40 Minutes Charges/Coding Visit Charges Inpatient E&M: 84892 Subs Hosp L2
[2024-12-21] MEDS: Ondansetron 4 MG/2 ML Vial IV ×2 (07:47→16:03)
[2024-12-21 08:33] LABS: ALB/GLOB Ratio 1.8 RATIO (0.9-2.4); AST(SGOT) 18 U/L (<=31); Alanine Aminotransfer ALT/SGPT 14 U/L (<=34); Albumin, Serum 3.7 g/dL (3.4-4.8); Alkaline Phosphatase 50 U/L (35-104); Anion Gap 10 (5-15); BUN 13 mg/dL (4-19); BUN/Creat Ratio 17.2 RATIO (10-20); Calcium,Total 8.6 mg/dL (7.6-11.0); Carbon Dioxide 22.4 mmol/L (21.0-32.0); Chloride 110 mmol/L (98-108); Creatinine, Serum 0.75 mg/dL (0.70-1.20); EST Glomerular Filtration Rate 91 (>60); Glucose 91 mg/dL (70-99); Potassium 3.2 mmol/L (3.3-5.1); Protein, Total 5.7 g/dL (5.9-8.4); Sodium Level 143 mmol/L (133-145); Total Bilirubin 0.35 mg/dL (0.00-1.30)
[2024-12-21] MEDS: Potassium Chloride Oral Tablet 20 MEQ 40 MEQ PO (11:00)
--- NOTE | 2024-12-21 11:07 | EX.PCM.CON.G ---
HPI Consult Data Date of Consult: 12/21/24 HPI Narrative Reason for Consultation: nausea and vomiting HPI Narrative: ALVINO ESPITIA, is a 59 F with pmhx of multiple myeloma s/p Autologous Stem Cell transplant pt of [facility] oncology. She is undergoing chemo therapy, also with hx of renal cell cancer s/p resection, anxiety and depression, chronic back pain due to multiple vertebral fractures, who presents to [place] ER from home for intractable nausea and vomiting. Patient has chronic nausea and vomiting associated with her chemo which progressively worsened around tuesday. She presented to [facility] ER for the same on tuesday night and was kept in the ER overnight. She was treated with a zofran with some improvement in symptoms, had a CT abdomen which according to her was negative, and was sent home. She continues to have nausea and vomiting with some midepigastric discomfort. Last vomiting was frothy, no blood or coffee grounds noted. Pt is not having diarrhea, last BM was today. Pt is taking zofran at home with little to no improvement and has also been using medical marijuana that she was prescribed for nausea but that did not help at all today. In the ER her labs and vitals area normal but her symptoms were unable to be controlled with zofran. She will be placed in observation overnight for symptom control. I was asked to see her due to refractory nausea. She currently has a 1.5 mg scopolamine patch that she has been wearing. She also had been receiving Compazine and Zofran. She says that she is able to keep fluids down as long as she takes something for nausea prior to her eating. After talking to her we decided to get a gastric emptying study as it sounds like she had chemotherapy induced gastroparesis or medication induced gastroparesis from narcotics plus or minus THC. The gastric emptying study was normal. He also wanting a CT scan of the abdomen pelvis with oral and IV contrast and was no sign of obstruction, stricture or any acute intra-abdominal pathology [facility] Medical History 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 health care History of pneumococcal infection Headache, migraine Carpal tunnel syndrome history of bone fracture Back problem Arthritis Seasonal allergies Endometriosis Screening for intestinal cancer Iron deficiency anemia Renal cell cancer Former tobacco use Obesity Pancreatitis URI, acute History of nausea and vomiting History of abdominal pain Home Medications ?Medication ?Instructions ?Recorded ?Last Taken ?Type lorazepam 0.5 mg tablet 0.5 mg PO TID PRN anxiety 04/23/21 Unknown History escitalopram oxalate 10 mg tablet 20 mg PO DAILY 07/26/22 Unknown History furosemide 40 mg tablet 40 mg PO DAILY PRN SWELLING 07/26/22 Unknown History olanzapine 5 mg tablet 5 mg PO DAILY 07/26/22 Unknown History buspirone 7.5 mg tablet 7.5 mg PO 3XD 12/18/24 Unknown History fentanyl 25 mcg/hr transdermal 1 patch transdermal Q3D 12/18/24 Unknown History patch meclizine 25 mg tablet 25 mg PO TID 12/18/24 Unknown History omeprazole 40 mg capsule,delayed 40 mg PO DAILY 12/18/24 Unknown History release ondansetron HCl 8 mg tablet 4 mg PO 4X/DAY PRN PRN nausea 12/18/24 Unknown History scopolamine base 1 mg over 3 days 1 patch topical Q72H 12/18/24 Unknown History transdermal patch Allergy/AdvReac Type Severity Reaction Status Date / Time latex Allergy Mild rash Verified 12/18/24 16:54 Penicillins Allergy Unknown Verified 12/18/24 16:54 adhesive tape AdvReac Rash Verified 12/18/24 16:54 Family History Brother Asthma Malignant hyperthermia due to anesthesia Hypertension Grandfather Colon cancer Mother Heart disease Thyroid disorder COPD (chronic obstructive pulmonary disease) Arthritis Anemia Sister Breast cancer Hypertension Thyroid disorder Hypothyroid Arthritis Father Bleeding disorder Cancer Lung Myelodysplastic syndrome Chronic lymphocytic leukemia Alcohol abuse Aunt Myocardial infarction Surgical History History of back surgery s/p kidney cancer Status post endometrial ablation Social History household members: children Smoking Status: Former smoker alcohol intake: current alcohol intake frequency: holidays/special occasions only what type of physical activity do you participate in: walking, bicycling, aerobics and weight training do you feel safe at home: Yes ROS Constitutional Constitutional: Denies fatigue, fever(s), poor appetite, weight gain or weight loss Gastrointestinal Gastrointestinal: Denies belching, bloating, change in bowel habits, change in stool character, chewing difficulty, coffee ground emesis, constipation, cramping, diarrhea, dyspepsia, dysphagia, early satiety, excessive flatus, fecal incontinence, heartburn, hematemesis, hematochezia, hemorrhoids, loose stools, melena, nausea, odynophagia, rectal bleeding, tenesmus, vomiting or weight changes Medical Records Data Medical Nutrition Assessment Dietitian: Malnutrition Criteria Met Start: 12/19/24 11:40 Freq: Status: Active Protocol: Document 12/19/24 15:47 SB (Rec: 12/19/24 15:47 SB [id number]) Nutrition Malnutrition Evidence of Yes Malnutrition Exists Malnutrition (severe Chronic ): Evidenced By Suboptimal Energy Intake (Severe),Weight Loss (Severe) Clinical Problem Chronic Disease or Condition Related Malnutrition Etiology severe related to inadequate oral intake and increased energy expenditure d/t renal cell cancer Signs/Symptoms as evidenced by PO meeting <75% of estimated nutrition needs x >3 months and 8% unintentional weight loss x 1 month. Status Active Problem Recommendation Dietitian Recommend advanced diet as tolerated to regular diet. Recommendations/ As diet is advanced order 240ml chocolate carnation Changes instant breakfast TID with meals. Will monitor weight trends. Lab / Micro Data 12/21/24 06:10 12/21/24 06:10 Labs: Laboratory Results - last 24 hr 12/21/24 06:10: WBC 4.4, RBC 3.68 L, Hgb 11.3 L, Hct 33.0 L, MCV 89.7, MCH 30.7, MCHC 34.2, RDW Std Deviation 38.4, RDW Coeff of Marcia 11.8, Plt Count 177, MPV 10.0, Sodium 143, Potassium 3.2 L, Chloride 110 H, Carbon Dioxide 22.4, Anion Gap 10, BUN 13, Creatinine 0.75, Estim Creat Clear Calc 81.70, Est GFR (MDRD) Non-Af 91, BUN/Creatinine Ratio 17.2, Glucose 91, Calcium 8.6, Total Bilirubin 0.35, AST 18, ALT 14, Alkaline Phosphatase 50, Total Protein 5.7 L, Albumin 3.7, Globulin 2.0 L, Albumin/Globulin Ratio 1.8 Imaging Radiology Impression Gastric Emptying Nuclear Medicine 12/20/24 15:12 IMPRESSION: NO SCINTIGRAPHIC EVIDENCE OF delayed gastric emptying.. Reading Location: [facility]-IR-1 Abdomen/Pelvis CT 12/20/24 18:18 IMPRESSION: 1. No acute findings in the abdomen and pelvis. 2. 10 mm left hepatic lobe lesion, suggestive of a hemangioma. This may be further evaluated with MRI of the liver with and without contrast. 3. Diffuse osteopenia and multilevel compression deformities thoracolumbar spine as described above. One or more dose reduction techniques were used (e.g., Automated exposure control, adjustment of the mA and/or kV according to patient size, use of iterative reconstruction technique). Reading Location: [facility] Assessment & Plan Assessment/Plan (1) Intractable nausea: PLAN: 59-year-old with multiple myeloma involving the spine and extremities status post autologous stem cell transplant chemotherapy with evaluation PLAN: Plan # Intractable nausea -Patient has chronic intermittent nausea but reports it has been worse since Tuesday, does find the IV antiemetics helpful but since symptoms return when it starts to wear off -Does not necessarily find the scopolamine patch helpful -Patient tolerating diet so diet has been advanced to transitional -Does also report that, while she has chronic diarrhea, her stool today was different for her so stool studies have been ordered -Of note patient does use medical marijuana, unclear if this could be contributing -GI consult pending -12/20: GI evaluated, CT abdomen pelvis ordered as well as a gastric emptying study, doing well with IV nausea medication so this has been continued, tolerating transitional diet, will continue. Of note patient has chronic pain due to her multiple myeloma and vertebral fractures and was on a fentanyl patch, she had been on this for months consistently but took it off the day prior to coming in that she was worried maybe it was making her worse, do suspect that some of the additional diarrhea and maybe some of the additional nausea on top of what she was already experiencing may be due to opiate withdrawal, patient verbalizes understanding, does not want to put her fentanyl patch back on at this time -12/21: CT of the abdomen and pelvis with no acute process, patient to have gastric emptying study, suspect today. GI following, patient on transitional diet when receiving IV antiemetics Chronic medical problems: #Depression/anxiety -Continue home medications -12/20: Due to patient's nausea she had not been taking her BuSpar or her Lexapro and thus was also refusing them here, discussed with patient, these have been discontinued and she does not wish to be taking them at this time # Chronic back pain -Due to multiple vertebral fractures -Supportive care -12/20: Patient 100 mL fentanyl patch as above, while it is likely not the cause of all of her symptoms and likely is exacerbating them on top of her already worsened symptoms, supportive care provided # Multiple myeloma -Patient of [facility] oncology undergoing chemotherapy -Patient initially went to [facility] ER for the same complaints on Tuesday night and was kept in ER overnight and discharged home after negative CAT scan and with some improvement with Zofran -Given continued symptoms she presented to [place] ER -Supportive care as above -12/20: Will need to continue to follow on outpatient basis # History of renal cell carcinoma -Status post resection #DVT ppx: Lovenox subcu Corin Flores MD
[2024-12-21] MEDS: dexAMETHasone 10 MG/ML Vial IV (12:13)
[2024-12-21] MEDS: Haloperidol 1 MG Tablet 0.5 MG PO ×2 (14:19→21:21)
[2024-12-21 16:00] VITALS: BP 152/98; PULSE 78; RESP 16; TEMP 36.6; O2SAT 96
[2024-12-21 20:52] VITALS: BP 155/92; PULSE 93; RESP 16; TEMP 36.6; O2SAT 98
[2024-12-22 02:50] VITALS: BP 137/76; PULSE 73; RESP 16; TEMP 36.6; O2SAT 98
[2024-12-22] MEDS: 0.9% Saline Lock 10 ML Syringe IV ×2 (05:01→09:59)
[2024-12-22] MEDS: Ondansetron 4 MG/2 ML Vial IV (05:01)
[2024-12-22 07:19] LABS: Hematocrit 33.1 % (37-47); Hemoglobin 11.2 g/dL (12.0-15.0); Mean Corp Hgb Conc 33.8 g/dL (32-36); Mean Corpuscular Hgb 30.2 pg (27.0-32.0); Mean Corpuscular Volume 89.2 fL (81-99); Platelet Count 196 K/mm3 (150-450); RBC Distribution Width CV 11.9 % (11.6-14.6); RBC Distribution Width SD 38.2 fl (35.1-43.9); Red Blood Count 3.71 M/mm3 (4.2-5.4); White Blood Count 6.2 K/mm3 (4.4-11.0)
[2024-12-22 08:05] VITALS: BP 133/82; PULSE 75; RESP 18; TEMP 36.6; O2SAT 97
[2024-12-22 08:45] LABS: ALB/GLOB Ratio 1.8 RATIO (0.9-2.4); AST(SGOT) 17 U/L (<=31); Alanine Aminotransfer ALT/SGPT 14 U/L (<=34); Albumin, Serum 3.9 g/dL (3.4-4.8); Alkaline Phosphatase 52 U/L (35-104); Anion Gap 11 (5-15); BUN 11 mg/dL (4-19); BUN/Creat Ratio 15.4 RATIO (10-20); Carbon Dioxide 21.4 mmol/L (21.0-32.0); Chloride 109 mmol/L (98-108); Creatinine, Serum 0.72 mg/dL (0.70-1.20); EST Glomerular Filtration Rate 96 (>60); Globulin 2.1 g/dL (2.2-4.2); Glucose 121 mg/dL (70-99); Potassium 3.8 mmol/L (3.3-5.1); Sodium Level 141 mmol/L (133-145); Total Bilirubin 0.27 mg/dL (0.00-1.30)
[2024-12-22] MEDS: Haloperidol 1 MG Tablet 0.5 MG PO ×3 (08:55→21:34)
[2024-12-22] MEDS: Metoclopramide 10 MG/2 ML Vial 2.5 MG IV (09:58)
--- NOTE | 2024-12-22 11:18 | EKG12_ITS ---
Test Reason : QTC EVAL Blood Pressure : */* mmHG Vent. Rate : 76 BPM Atrial Rate : 76 BPM P-R Int : 164 ms QRS Dur : 88 ms QT Int : 376 ms P-R-T Axes : 51 22 33 degrees QTcB Int : 423 ms Normal sinus rhythm Normal ECG When compared with ECG of 09-Aug-2020 03:29, Nonspecific T wave abnormality has replaced inverted T waves in Inferior leads Confirmed by SANJU WALTER, HONEY ([id number]), supervising editor trailer ANTONIETA HOYT ([id number]) on 12/24/2024 9:55:11 AM Referred By: CAREY Confirmed By: HONEY BILLS MD
--- NOTE | 2024-12-22 13:46 | PCM.PN.HOSP ---
Reason for Visit Reason for Visit: Diagnoses Nausea (12/18/24) Subjective Subjective Patient continues to have bouts of nausea that are improved with IV medications, tolerates diet when she gets medications but nausea resumes as they start to wear off Objective Data Objective Data Vital Signs: Vital Signs Temp Pulse Resp BP Pulse Ox O2 Del Method 97.8 F 75 18 133/82 H 97 Room Air 12/22/24 08:05 12/22/24 08:05 12/22/24 08:05 12/22/24 08:05 12/22/24 08:05 12/22/24 08:05 Oxygen Delivery Method Room Air Weight: 90.492 kg Body Mass Index (BMI) 37.7 Intake & Output: Intake and Output for Last 24 Hours 12/20/24 12/21/24 12/22/24 23:59 23:59 23:59 Intake Total 300 / 500 200 / 200 Balance 300 / 500 200 / 200 Medical Nutrition Assessment Dietitian: Malnutrition Criteria Met Start: 12/19/24 11:40 Freq: Status: Active Protocol: Document 12/19/24 15:47 SB (Rec: 12/19/24 15:47 SB [id number]) Nutrition Malnutrition Evidence of Yes Malnutrition Exists Malnutrition (severe Chronic ): Evidenced By Suboptimal Energy Intake (Severe),Weight Loss (Severe) Clinical Problem Chronic Disease or Condition Related Malnutrition Etiology severe related to inadequate oral intake and increased energy expenditure d/t renal cell cancer Signs/Symptoms as evidenced by PO meeting <75% of estimated nutrition needs x >3 months and 8% unintentional weight loss x 1 month. Status Active Problem Recommendation Dietitian Recommend advanced diet as tolerated to regular diet. Recommendations/ As diet is advanced order 240ml chocolate carnation Changes instant breakfast TID with meals. Will monitor weight trends. Lab / Micro Data 12/22/24 06:51 12/22/24 06:51 Labs: Laboratory Results - last 24 hr 12/22/24 06:51: WBC 6.2, RBC 3.71 L, Hgb 11.2 L, Hct 33.1 L, MCV 89.2, MCH 30.2, MCHC 33.8, RDW Std Deviation 38.2, RDW Coeff of Marcia 11.9, Plt Count 196, MPV 10.0, Sodium 141, Potassium 3.8, Chloride 109 H, Carbon Dioxide 21.4, Anion Gap 11, BUN 11, Creatinine 0.72, Estim Creat Clear Calc 85.10, Est GFR (MDRD) Non-Af 96, BUN/Creatinine Ratio 15.4, Glucose 121 H, Calcium 9.0, Total Bilirubin 0.27, AST 17, ALT 14, Alkaline Phosphatase 52, Total Protein 6.0, Albumin 3.9, Globulin 2.1 L, Albumin/Globulin Ratio 1.8 Micro: Microbiology 12/19/24 20:40 Stool Enteric Bacteriology - Final 12/19/24 20:40 Stool C. difficile GDH Antigen & Toxins - Final 12/19/24 20:40 Stool Clostridioides difficile (PCR) - Final Physical Exam Narrative General: Alert, oriented, no apparent distress HEENT: Atraumatic, normocephalic Eyes: extraocular movements grossly intact Neck: Supple Respiratory: normal respiratory effort Cardiovascular: no edema appreciated GI: nondistended Extremities: Moving all extremities Neuro: No overt focal neurological deficits Psych: Cooperative Assessment & Plan Assessment/Plan (1) Intractable nausea: PLAN: Plan # Intractable nausea -Patient has chronic intermittent nausea but reports it has been worse since Tuesday, does find the IV antiemetics helpful but since symptoms return when it starts to wear off -Does not necessarily find the scopolamine patch helpful -Patient tolerating diet so diet has been advanced to transitional -Does also report that, while she has chronic diarrhea, her stool today was different for her so stool studies have been ordered -Of note patient does use medical marijuana, unclear if this could be contributing -GI consult pending -12/20: GI evaluated, CT abdomen pelvis ordered as well as a gastric emptying study, doing well with IV nausea medication so this has been continued, tolerating transitional diet, will continue. Of note patient has chronic pain due to her multiple myeloma and vertebral fractures and was on a fentanyl patch, she had been on this for months consistently but took it off the day prior to coming in that she was worried maybe it was making her worse, do suspect that some of the additional diarrhea and maybe some of the additional nausea on top of what she was already experiencing may be due to opiate withdrawal, patient verbalizes understanding, does not want to put her fentanyl patch back on at this time -12/21: CT of the abdomen and pelvis with no acute process, gastric emptying study within normal limits, patient back on diet, GI following and patient given a dose of IV steroids and started on scheduled Haldol, seem to help initially but patient becoming nauseous again, appreciate further GI recommendations, supportive care provided -12/22: Discussed extensively with patient, will try to schedule Reglan with as needed Zofran, when discussing switching everything oral patient agreeable but became very anxious that IV medications may be discontinued, Reglan IV discontinued, Zofran IV continued but only as a backup as we are trying to transition to orals, discussed that nausea would not be resolved on discharge but the goal was to have patient be able to tolerate p.o. well and off that she can be discharged and follow-up outpatient for further workup and management. Patient agreeable. Also will obtain EKG to evaluate QTc. Chronic medical problems: #Depression/anxiety -Continue home medications -12/20: Due to patient's nausea she had not been taking her BuSpar or her Lexapro and thus was also refusing them here, discussed with patient, these have been discontinued and she does not wish to be taking them at this time # Chronic back pain -Due to multiple vertebral fractures -Supportive care -12/20: Patient 100 mL fentanyl patch as above, while it is likely not the cause of all of her symptoms and likely is exacerbating them on top of her already worsened symptoms, supportive care provided # Multiple myeloma -Patient of [facility] oncology undergoing chemotherapy -Patient initially went to [facility] ER for the same complaints on Tuesday night and was kept in ER overnight and discharged home after negative CAT scan and with some improvement with Zofran -Given continued symptoms she presented to [place] ER -Supportive care as above -12/20: Will need to continue to follow on outpatient basis # History of renal cell carcinoma -Status post resection #DVT ppx: Lovenox subcu Corin Flores MD Time spent in the patient's overall evaluation,decision-making process, review of diagnostic data, adjustment of management, discussion with other providers, nursing nursing and ancillary staff involved in patient's care documentation, 39 Minutes Charges/Coding Visit Charges Inpatient E&M: 53380 Subs Hosp L2
[2024-12-22 14:00] VITALS: BP 132/86; PULSE 72; RESP 18; TEMP 36.4; O2SAT 100
[2024-12-22] MEDS: Metoclopramide 5 MG TABLET PO ×2 (15:08→21:34)
[2024-12-22] MEDS: Calcium Carbonate 500 MG Tablet 1000 MG PO ×2 (16:45→22:52)
[2024-12-22 21:36] VITALS: BP 142/80; PULSE 77; RESP 18; TEMP 36.2; O2SAT 98
[2024-12-23 03:00] VITALS: BP 151/85; PULSE 75; RESP 18; TEMP 36.1; O2SAT 98
[2024-12-23] MEDS: Metoclopramide 5 MG TABLET PO ×2 (06:18→10:13)
[2024-12-23] MEDS: Haloperidol 1 MG Tablet 0.5 MG PO ×2 (06:18→13:46)
[2024-12-23 06:42] LABS: Hematocrit 35.6 % (37-47); Hemoglobin 12.3 g/dL (12.0-15.0); Mean Corp Hgb Conc 34.6 g/dL (32-36); Mean Corpuscular Hgb 30.6 pg (27.0-32.0); Mean Corpuscular Volume 88.6 fL (81-99); Mean Platelet Vol. 10.2 fl (6.2-12.0); Platelet Count 220 K/mm3 (150-450); RBC Distribution Width CV 11.9 % (11.6-14.6); RBC Distribution Width SD 38.6 fl (35.1-43.9); Red Blood Count 4.02 M/mm3 (4.2-5.4); White Blood Count 6.6 K/mm3 (4.4-11.0)
[2024-12-23 07:06] LABS: ALB/GLOB Ratio 1.8 RATIO (0.9-2.4); AST(SGOT) 19 U/L (<=31); Alanine Aminotransfer ALT/SGPT 15 U/L (<=34); Alkaline Phosphatase 56 U/L (35-104); Anion Gap 10 (5-15); BUN 14 mg/dL (4-19); BUN/Creat Ratio 16.3 RATIO (10-20); Calcium,Total 9.3 mg/dL (7.6-11.0); Carbon Dioxide 23.5 mmol/L (21.0-32.0); Chloride 108 mmol/L (98-108); Creatinine, Serum 0.88 mg/dL (0.70-1.20); EST Glomerular Filtration Rate 76 (>60); Estimated Creatinine Clearance 69.63 ml/min (50-250); Globulin 2.3 g/dL (2.2-4.2); Glucose 84 mg/dL (70-99); Potassium 3.9 mmol/L (3.3-5.1); Protein, Total 6.3 g/dL (5.9-8.4); Sodium Level 142 mmol/L (133-145); Total Bilirubin 0.33 mg/dL (0.00-1.30)
[2024-12-23 09:00] VITALS: BP 140/89; PULSE 77; RESP 16; TEMP 36.7; O2SAT 99
[2024-12-23] MEDS: Calcium Carbonate 500 MG Tablet 1000 MG PO (10:13)
--- NOTE | 2024-12-23 11:36 | DCINST_ITS ---
Discharge Instructions Diet Discharge Diet: Light diet - advance as tolerated DC O2, CPAP, BIPAP needs Home O2 Discharge instructions: No Dressing / Incision Discharge Activity: Return to Normal Activity Follow Up Care Test Results: Test results from this visit will be discussed in further detail at your follow- up appointment, if applicable. Discharge Plan Admission Admit Date/Time: 12/18/24 21:47 Primary Reason for Your Visit: Intractable nausea Attending Provider: Corin Flores Primary Care Provider: Care Physician,No Primary Consulting Providers: Gurmeet Mckeon Instructions Patient Instructions: Reglan Oral Tablet 5 mg, ED Vomiting (Adult) Additional Instructions / Restrictions: DISCHARGE INSTRUCTIONS PLEASE READ *Please take this with you to your next doctors appointment* -You will be discharged on Reglan which you will take 3 times daily before meals and at bedtime as well as haloperidol 0.5 mg 3 times daily. This regimen may need adjusted moving forward but will defer this to your outpatient physicians -You also will be discharged with Zofran as needed -You will be sent in a 2-week supply, will be important to follow-up with your outpatient providers within this time. For further regimen continuation or adjustment so that you can be assessed for efficacy and any side effects that would necessitate adjusting these medications further -You can continue to use your scopolamine patch -Please continue do not take your other previous home medications as per our discussion -You will need to follow-up with Dr. Hernández with GI in his office upon discharge. Please call his office to schedule an appointment (ph. [phone]) -Please follow-up with your oncologist on discharge -Please call your primary care provider's office upon discharge to schedule a hospital follow up within 1 week. -For any concerning signs or symptoms please call 911 or proceed to the nearest emergency department Discharge Orders/Prescriptions Prescriptions: New haloperidol 1 mg Tablet 0.5 mg PO TID 14 Days Qty: 21 0RF metoclopramide HCl 5 mg Tablet 5 mg PO Q6H 14 Days Qty: 56 0RF ondansetron 4 mg tablet,disintegrating 4 mg PO Q8H PRN (Reason: nausea and vomiting) Qty: 30 0RF Continued scopolamine base 1 mg over 3 days patch 3 day 1 patch topical Q72H Rx Instructions: LAST PLACED 12/18/24 Discontinued lorazepam 0.5 mg tablet 0.5 mg PO TID PRN (Reason: anxiety) furosemide 40 mg tablet 40 mg PO DAILY PRN olanzapine 5 mg tablet 5 mg PO DAILY escitalopram oxalate 10 mg tablet 20 mg PO DAILY omeprazole 40 mg capsule,delayed release(DR/EC) 40 mg PO DAILY meclizine 25 mg tablet 25 mg PO TID buspirone 7.5 mg tablet 7.5 mg PO 3XD fentanyl 25 mcg/hr patch 72 hour 1 patch transdermal Q3D Rx Instructions: TOOK PATCH OFF AT HOME 12/18/24 DOES NOT WANT REAPPLIED AT THIS TIME ondansetron HCl 8 mg tablet 4 mg PO 4X/DAY PRN PRN (Reason: nausea) Referrals / Follow Up: Care Physician,No Primary [Primary Care Provider] - Ysabel Monsalve 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
--- NOTE | 2024-12-23 11:45 | PCM.DC.SUM ---
Providers Date of Admission: 12/18/24 Date of Discharge: 12/23/24 Primary Care Physician: Tricia Primary Care Phys Consultations 12/19/24 03:54 Consult: Gastroenterology Routine Consulting Provider: [facility] Reason for Consult: Nausea and vomiting due to chemo toxicity EMERGENT Consult: No Notified: No Date Notified: 12/19/24 Time Notified: 03:54 12/19/24 07:54 Consult: Gastroenterology Routine Consulting Provider: [facility] Reason for Consult: Nausea and vomiting due to chemo toxicity EMERGENT Consult: No Notified: Yes Date Notified: 12/19/24 Time Notified: 07:54 Method of Notification: Text Reason For Visit: INTRACTABLE NAUSEA Diagnosis Discharge Diagnosis (1) Intractable nausea: Status: Acute Code(s): R11.0 - Nausea Plan # Intractable nausea #Depression/anxiety # Chronic back pain -Due to multiple vertebral fractures # Multiple myeloma # History of renal cell carcinoma Medications at Discharge Home Medications scopolamine base 1 mg over 3 days transdermal patch 1 patch topical Q72H 12/18/24 haloperidol 1 mg tablet 0.5 mg (1/2 x 1 mg) PO TID 14 days #21 tabs 12/23/24 metoclopramide HCl 5 mg tablet 5 mg PO Q6H 14 days #56 tabs 12/23/24 ondansetron 4 mg disintegrating tablet 4 mg PO Q8H PRN nausea and vomiting #30 tabs 12/23/24 Hospital Course Summary of Care Provided Minutes Spent on Discharge: 35 Hospital Course: # Intractable nausea #Depression/anxiety # Chronic back pain -Due to multiple vertebral fractures # Multiple myeloma # History of renal cell carcinoma 59-year-old female with history as above presented to [facility] ED 12/18/2024 due to intractable nausea and vomiting. Patient has intermittent chronic nausea and vomiting that she notes is usually worsened by her chemo that progressively worsened until the Tuesday prior to admission when it was so severe she had a hard time tolerating p.o. or functioning. She went to [facility] ER on Tuesday night and was kept in the ER overnight and given some Zofran and discharged home after a negative CT abdomen. She continued have nausea and vomiting and inability to tolerate p.o. so she presented [facility] ED and was admitted. Patient did find IV medications helpful, throughout hospitalization supportive care provided, patient did not want to take any of her home medications and also took off her fentanyl patch the day prior to arrival and did not want this replaced she was worried that some of these medications could be worsening her symptoms, patient washed out from her Lexapro, BuSpar, fentanyl and slowly did improve with the IV medications the nausea would return in between. GI evaluated and ordered CT scan of the abdomen and gastric emptying study, neither showed acute process and patient given a dose of steroids and Haldol added to her regimen. Patient continued to have symptoms but ultimately was willing to try to transition to oral medications to see if she be able to tolerate p.o. well enough to discharge and follow-up outpatient given there was no acute process able to be reversed during her hospitalization that would necessitate continued hospital admission. Patient did very well with scheduled Reglan, the Haldol was continued, and patient was better able to tolerate p.o. She was comfortable with discharge home given that, while she had continued problems with nausea, she was controlled and off for safe discharge. Also of note QTc check 12/22/2024 due to patient receiving Haldol and Reglan, QTc not prolonged. On day of discharge no new or acute complaints. Discharge instructions as followed: -You will be discharged on Reglan which you will take 3 times daily before meals and at bedtime as well as haloperidol 0.5 mg 3 times daily. This regimen may need adjusted moving forward but will defer this to your outpatient physicians -You also will be discharged with Zofran as needed -You will be sent in a 2-week supply, will be important to follow-up with your outpatient providers within this time. For further regimen continuation or adjustment so that you can be assessed for efficacy and any side effects that would necessitate adjusting these medications further -You can continue to use your scopolamine patch -Please continue do not take your other previous home medications as per our discussion -You will need to follow-up with Dr. Hernández with GI in his office upon discharge. Please call his office to schedule an appointment (ph. [phone]) -Please follow-up with your oncologist on discharge -Please call your primary care provider's office upon discharge to schedule a hospital follow up within 1 week. -For any concerning signs or symptoms please call 911 or proceed to the nearest emergency department Physical Exam Narrative General: Alert, oriented, no apparent distress HEENT: Atraumatic, normocephalic Eyes: extraocular movements grossly intact Neck: Supple Respiratory: normal respiratory effort Cardiovascular: no edema appreciated GI: nondistended Extremities: Moving all extremities Neuro: No overt focal neurological deficits Psych: Cooperative Medical Records Data Medical Nutrition Assessment Dietitian: Malnutrition Criteria Met Start: 12/19/24 11:40 Freq: Status: Active Protocol: Document 12/19/24 15:47 SB (Rec: 12/19/24 15:47 SB [id number]) Nutrition Malnutrition Evidence of Yes Malnutrition Exists Malnutrition (severe Chronic ): Evidenced By Suboptimal Energy Intake (Severe),Weight Loss (Severe) Clinical Problem Chronic Disease or Condition Related Malnutrition Etiology severe related to inadequate oral intake and increased energy expenditure d/t renal cell cancer Signs/Symptoms as evidenced by PO meeting <75% of estimated nutrition needs x >3 months and 8% unintentional weight loss x 1 month. Status Active Problem Recommendation Dietitian Recommend advanced diet as tolerated to regular diet. Recommendations/ As diet is advanced order 240ml chocolate carnation Changes instant breakfast TID with meals. Will monitor weight trends. Weight / BMI Weight Weight: 90.492 kg Body Mass Index (BMI) 37.7 ABG / Lab / Microbiology Data 12/23/24 06:15 12/23/24 06:15 Laboratory: Laboratory Results - last 24 hr 12/23/24 06:15: WBC 6.6, RBC 4.02 L, Hgb 12.3, Hct 35.6 L, MCV 88.6, MCH 30.6, MCHC 34.6, RDW Std Deviation 38.6, RDW Coeff of Marcia 11.9, Plt Count 220, MPV 10.2, Sodium 142, Potassium 3.9, Chloride 108, Carbon Dioxide 23.5, Anion Gap 10, BUN 14, Creatinine 0.88, Estim Creat Clear Calc 69.63, Est GFR (MDRD) Non-Af 76, BUN/Creatinine Ratio 16.3, Glucose 84, Calcium 9.3, Total Bilirubin 0.33, AST 19, ALT 15, Alkaline Phosphatase 56, Total Protein 6.3, Albumin 4.0, Globulin 2.3, Albumin/Globulin Ratio 1.8 Microbiology: Microbiology 12/19/24 20:40 Stool Enteric Bacteriology - Final 12/19/24 20:40 Stool C. difficile GDH Antigen & Toxins - Final 12/19/24 20:40 Stool Clostridioides difficile (PCR) - Final D/C Instructions Discharge Diet: Light diet - advance as tolerated DC O2, CPAP, BIPAP Needs Home O2 Discharge instructions: No Meaningful Use Info Meaningful Use Meaningful Use Diagnoses (Choose all that apply): None applicable Ischemic Stroke Statin Dosing Therapy Reference: STATIN DOSE THERAPY REFERENCE: * Patients > 75 years receive moderate or high dose statin therapy. * Patients 75 years or YOUNGER should receive HIGH intensity statin dose unless contraindicated. You will be required to document reason for non-treatment if statin daily dose does not meet guidelines. HIGH DOSE STATIN THERAPY DAILY Atorvastatin > than or = to 40 mg Rosuvastatin > than or = to 20 mg Amlodipine + Atorvastatin > than or = to 2.5/40 mg Ezetimibe + Simvastatin 10/80 mg Simvastatin 80mg Discharge Plan Admission Admit Date/Time: 12/18/24 21:47 Primary Reason for Your Visit: Intractable nausea Attending Provider: Corin Flores Primary Care Provider: Care Physician,No Primary Consulting Providers: Gurmeet Mckeon Instructions Patient Instructions: Reglan Oral Tablet 5 mg, ED Vomiting (Adult) Additional Instructions / Restrictions: DISCHARGE INSTRUCTIONS PLEASE READ *Please take this with you to your next doctors appointment* -You will be discharged on Reglan which you will take 3 times daily before meals and at bedtime as well as haloperidol 0.5 mg 3 times daily. This regimen may need adjusted moving forward but will defer this to your outpatient physicians -You also will be discharged with Zofran as needed -You will be sent in a 2-week supply, will be important to follow-up with your outpatient providers within this time. For further regimen continuation or adjustment so that you can be assessed for efficacy and any side effects that would necessitate adjusting these medications further -You can continue to use your scopolamine patch -Please continue do not take your other previous home medications as per our discussion -You will need to follow-up with Dr. Hernández with GI in his office upon discharge. Please call his office to schedule an appointment (ph. [phone]) -Please follow-up with your oncologist on discharge -Please call your primary care provider's office upon discharge to schedule a hospital follow up within 1 week. -For any concerning signs or symptoms please call 911 or proceed to the nearest emergency department Discharge Orders/Prescriptions Prescriptions: New haloperidol 1 mg Tablet 0.5 mg PO TID 14 Days Qty: 21 0RF metoclopramide HCl 5 mg Tablet 5 mg PO Q6H 14 Days Qty: 56 0RF ondansetron 4 mg tablet,disintegrating 4 mg PO Q8H PRN (Reason: nausea and vomiting) Qty: 30 0RF Continued scopolamine base 1 mg over 3 days patch 3 day 1 patch topical Q72H Rx Instructions: LAST PLACED 12/18/24 Discontinued lorazepam 0.5 mg tablet 0.5 mg PO TID PRN (Reason: anxiety) furosemide 40 mg tablet 40 mg PO DAILY PRN olanzapine 5 mg tablet 5 mg PO DAILY escitalopram oxalate 10 mg tablet 20 mg PO DAILY omeprazole 40 mg capsule,delayed release(DR/EC) 40 mg PO DAILY meclizine 25 mg tablet 25 mg PO TID buspirone 7.5 mg tablet 7.5 mg PO 3XD fentanyl 25 mcg/hr patch 72 hour 1 patch transdermal Q3D Rx Instructions: TOOK PATCH OFF AT HOME 12/18/24 DOES NOT WANT REAPPLIED AT THIS TIME ondansetron HCl 8 mg tablet 4 mg PO 4X/DAY PRN PRN (Reason: nausea) Referrals / Follow Up: Care Physician,No Primary [Primary Care Provider] - Ysabel Monsalve SPEEDOMETER INSPECTOR-C [Non-Staff] - In 1 Week Disposition Disposition (needs filled in before D/C Order can be placed): Home, Self Care Charges/Coding Visit Charges Inpatient E&M: 22499 Disch Hosp >30min
== END 2024-12-23 13:53 | disposition home or self-care (01) ==
LOC: ED 17:55 → MS3 21:59
PROVIDERS: Physician Assistant; Admitting Provider Internal Medicine; Emergency Provider Emergency Medicine; Visit Provider Internal Medicine
DX: R11.2 Nausea with vomiting, unspecified (principal); C90.00 Multiple myeloma not having achieved remission; Z94.84 Stem cells transplant status; Z85.528 Personal history of other malignant neoplasm of kidney; Z87.891 Personal history of nicotine dependence; G89.29 Other chronic pain; F41.9 Anxiety disorder, unspecified; E43 Unspecified severe protein-calorie malnutrition; Z79.899 Other long term (current) drug therapy; F32.A Depression, unspecified; T45.1X5A Adverse effect of antineoplastic and immunosuppressive drugs, initial encounter; Z68.37 Body mass index [BMI] 37.0-37.9, adult
CPT/HCPCS: 36415; 74177; 78264; 80048; 80053; 83690; 83735; 85025; 85027; 87493; 87506; 93005; 96361; 96374; 96375; 96376; 97802; 99221; 99284; A9541; Q9967; A4216; G0378; J2405

== ENCOUNTER → 2024-12-28 | Outpatient (CLI) | payer MEDICARE, SELFPAY ==
--- NOTE | 2024-12-28 08:04 | US_ITS ---
EXAM: US Abdomen Limited, Gallbladder CLINICAL INDICATION: NAUSEA AND VOMITING TECHNIQUE: Real-time ultrasound of the right upper quadrant with image documentation. COMPARISON: No relevant prior studies available. FINDINGS: LIVER: Hepatopetal blood flow in main portal vein. Probable hemangioma of the left lobe measuring up to 1.5 cm. If indicated, this could be further evaluated with CT or MRI of the abdomen using liver mass protocol. Liver measures up to 13.8 cm. Fatty infiltration of the liver. GALLBLADDER: Negative Weir's sign was reported by the health promotion specialist. No gallstones. COMMON BILE DUCT: Unremarkable as visualized. No stones. No dilation. Common bile duct measures 0.46 cm in diameter. PANCREAS: Unremarkable as visualized. RIGHT KIDNEY: Unremarkable. No stones. No hydronephrosis. The right kidney measures 10.0 x 4.3 x 4.4 cm. US/Gallbladder IMPRESSION: Fatty infiltration of the liver. [facility]
== END | disposition home or self-care (01) ==
LOC: OPUS 08:02
PROVIDERS: Referring Provider Student in an Organized Health Care Education/Training Program; Visit Provider Student in an Organized Health Care Education/Training Program
DX: R11.2 Nausea with vomiting, unspecified (principal)
CPT/HCPCS: 76705

== ENCOUNTER → 2024-12-28 | Outpatient (CLI) | payer MEDICARE, SELFPAY ==
[2025-01-02 15:08] LABS: Pancreatic Elastase, Fecal > 800 (>200)
== END | disposition home or self-care (01) ==
LOC: LABSPEC 11:20
PROVIDERS: Referring Provider Family Medicine; Visit Provider Family Medicine
DX: R10.13 Epigastric pain (principal); R19.7 Diarrhea, unspecified; Z87.19 Personal history of other diseases of the digestive system
CPT/HCPCS: 82653

== ENCOUNTER 2024-12-31 10:49 | Outpatient (CLI) | payer MEDICARE, MEDICAID, SELFPAY ==
[2024-12-31] MEDS: 0.9% Normal Saline (1000mL) 1,000 ML 999 ML IV (11:06)
[2024-12-31 11:07] VITALS: BP 127/73; PULSE 83; RESP 14; O2SAT 96; BMI 37.2
[2024-12-31 12:12] VITALS: BP 151/76; PULSE 68; RESP 16; TEMP 35.6; O2SAT 98
== END 2024-12-31 23:59 | disposition home or self-care (01) ==
LOC: MEDOUTP 10:50
PROVIDERS: Referring Provider Family Medicine; Visit Provider Family Medicine
DX: E86.0 Dehydration (principal); C90.00 Multiple myeloma not having achieved remission; R11.2 Nausea with vomiting, unspecified
CPT/HCPCS: 96360; A4216

== ENCOUNTER 2025-01-02 11:31 | Outpatient (CLI) | payer MEDICARE, MEDICAID, SELFPAY ==
[2025-01-02 12:06] VITALS: BP 135/85; PULSE 60; RESP 16; TEMP 36.1; O2SAT 99; BMI 37.2
[2025-01-02] MEDS: 0.9% Normal Saline (1000mL) 1,000 ML 999 ML IV (12:26)
[2025-01-02 13:35] VITALS: BP 138/78; PULSE 71; RESP 16; TEMP 36.5; O2SAT 99
== END 2025-01-02 23:59 | disposition home or self-care (01) ==
LOC: MEDOUTP 11:31
PROVIDERS: Referring Provider Family Medicine; Visit Provider Family Medicine
DX: E86.0 Dehydration (principal); C90.00 Multiple myeloma not having achieved remission; R11.2 Nausea with vomiting, unspecified
CPT/HCPCS: 96360; A4216

== ENCOUNTER 2025-01-07 10:36 | Outpatient (CLI) | payer MEDICARE, MEDICAID, SELFPAY ==
[2025-01-07] MEDS: 0.9% Normal Saline (1000mL) 1,000 ML 999 ML IV (10:48)
[2025-01-07 10:50] VITALS: BP 150/95; PULSE 72; RESP 16; TEMP 35.5; O2SAT 98; BMI 37.5
[2025-01-07 11:55] VITALS: BP 144/87; PULSE 73; RESP 16
== END 2025-01-07 23:59 | disposition home or self-care (01) ==
LOC: MEDOUTP 10:36
PROVIDERS: Referring Provider Family Medicine; Visit Provider Family Medicine
DX: R11.2 Nausea with vomiting, unspecified (principal); E86.0 Dehydration
CPT/HCPCS: 96360; A4216

== ENCOUNTER 2025-01-09 11:18 | Outpatient (CLI) | payer MEDICARE, MEDICAID, SELFPAY ==
[2025-01-09 11:26] VITALS: BP 145/80; PULSE 73; RESP 16; TEMP 35.6; O2SAT 99; BMI 37.5
[2025-01-09] MEDS: 0.9% Normal Saline (1000mL) 1,000 ML 999 ML IV (11:51)
[2025-01-09] MEDS: 0.9% NaCl Peripheral Flush Adult IV ×2 (11:51→13:08)
[2025-01-09 13:10] VITALS: BP 140/76; PULSE 73; RESP 16; TEMP 36.2; O2SAT 98
== END 2025-01-09 23:59 | disposition home or self-care (01) ==
LOC: MEDOUTP 11:18
PROVIDERS: Referring Provider Family Medicine; Visit Provider Family Medicine
DX: E86.0 Dehydration (principal); C90.00 Multiple myeloma not having achieved remission; R11.2 Nausea with vomiting, unspecified
CPT/HCPCS: 96360; A4216

== ENCOUNTER 2025-01-11 12:55 | Outpatient (CLI) | payer MEDICARE, MEDICAID, SELFPAY ==
[2025-01-11 13:17] VITALS: BP 157/82; PULSE 68; RESP 16; O2SAT 96
[2025-01-11] MEDS: 0.9% Normal Saline (1000mL) 1,000 ML 1000 ML IV (13:31)
[2025-01-11 14:43] VITALS: BP 146/78; PULSE 77; RESP 16
== END 2025-01-11 23:59 | disposition home or self-care (01) ==
LOC: MEDOUTP 12:55
PROVIDERS: Referring Provider Family Medicine; Visit Provider Family Medicine
DX: E86.0 Dehydration (principal); C90.00 Multiple myeloma not having achieved remission; R11.2 Nausea with vomiting, unspecified
CPT/HCPCS: 96360; A4216

== ENCOUNTER 2025-01-14 12:41 | Outpatient (CLI) | payer MEDICARE, MEDICAID, SELFPAY ==
[2025-01-14] MEDS: 0.9% Normal Saline (1000mL) 1,000 ML 999 ML IV (13:11)
[2025-01-14 13:12] VITALS: BP 135/94; PULSE 71; RESP 16; O2SAT 97; BMI 37.5
[2025-01-14 14:17] VITALS: BP 146/78; PULSE 69; RESP 16
== END 2025-01-14 23:59 | disposition home or self-care (01) ==
LOC: MEDOUTP 12:41
PROVIDERS: Referring Provider Family Medicine; Visit Provider Family Medicine
DX: E86.0 Dehydration (principal); C90.00 Multiple myeloma not having achieved remission; R11.2 Nausea with vomiting, unspecified
CPT/HCPCS: 96360; A4216

== ENCOUNTER 2025-01-16 12:23 | Outpatient (CLI) | payer MEDICARE, MEDICAID, SELFPAY ==
[2025-01-16] MEDS: 0.9% Normal Saline (1000mL) 1,000 ML 1000 ML IV (12:35)
[2025-01-16 12:37] VITALS: BP 144/82; PULSE 76; RESP 16; TEMP 36.4; O2SAT 98
[2025-01-16 13:44] VITALS: BP 142/77; PULSE 76; RESP 16; TEMP 36.4; O2SAT 98
== END 2025-01-16 23:59 | disposition home or self-care (01) ==
LOC: MEDOUTP 12:23
PROVIDERS: Referring Provider Family Medicine; Visit Provider Family Medicine
DX: E86.0 Dehydration (principal); C90.00 Multiple myeloma not having achieved remission; R11.2 Nausea with vomiting, unspecified
CPT/HCPCS: 96360; A4216

== ENCOUNTER 2025-01-18 11:49 | Outpatient (CLI) | payer MEDICARE, MEDICAID, SELFPAY ==
[2025-01-18] MEDS: 0.9% Normal Saline (1000mL) 1,000 ML 999 ML IV (12:01)
[2025-01-18 12:02] VITALS: BP 151/79; PULSE 69; RESP 16; TEMP 36.3; O2SAT 97
[2025-01-18 13:16] VITALS: BP 142/82; PULSE 74; RESP 14; O2SAT 97
== END 2025-01-18 23:59 | disposition home or self-care (01) ==
LOC: MEDOUTP 11:49
PROVIDERS: PCP Family Medicine; Referring Provider Family Medicine; Visit Provider Family Medicine
DX: E86.0 Dehydration (principal); C90.00 Multiple myeloma not having achieved remission; R11.2 Nausea with vomiting, unspecified
CPT/HCPCS: 96360

== ENCOUNTER 2025-01-18 13:21 | Day surgery (SDC) | payer MEDICARE, MEDICAID, SELFPAY ==
--- NOTE | 2025-01-14 10:35 | PAT.ANE_ITS ---
Pre-Assessment Diagnosis/Proposed Procedure Planned Operative Procedure(s): EGD Anesthesia History Anesthesia History - certified neurodiagnostic technologist: Anesthesia History - certified neurodiagnostic technologist Hx Hospitalization Yes 01/14/25 10:12 Any Problems With Anesthesia No 01/14/25 10:12 Cholinesterase deficiency No 01/14/25 10:12 You/Your Family Experience No 01/14/25 10:12 fever (hyperthermia) with Relationship Recent Exposure to Contagious No 06/08/22 08:12 Disease Does patient have nerve No 01/14/25 10:12 stimulator Patient instructed to have device shut off --Does patient have Pacemaker or ICD? When Was Last Pacemaker Check QUESTION #4 FULL TEXT: You/Your Family Experience fever (hyperthermia) with Anesthesia Last Oral Intake Last Oral intake: Last Oral Intake NPO since Meds taken in AM with sips of water? Meds patient instructed to take am of surgery PONV PONV - certified neurodiagnostic technologist: PONV - certified neurodiagnostic technologist Female Yes 01/14/25 10:12 HX of Motion Sickness No 01/14/25 10:12 HX of N/V After Surgery No 01/14/25 10:12 Non-Smoker Yes 01/14/25 10:12 Duration of Surgery greater No 01/14/25 10:12 than 60 minutes Number of Risk Factors 2 01/14/25 10:12 PONV Score Moderate Risk 01/14/25 10:12 Height & Weight Height & Weight: Anesthesia: Height & Weight Height 5 ft 1 in 12/31/24 11:07 Respiratory Assessment Respiratory Assessment - certified neurodiagnostic technologist: Respiratory Tract Infection Hx - certified neurodiagnostic technologist Hx Respiratory Tract Infection No 01/14/25 10:12 STOP Sleep Apnea STOP Sleep Apnea - certified neurodiagnostic technologist: STOP Sleep Apnea - certified neurodiagnostic technologist Hx Hypertension No 01/14/25 10:12 Hx Sleep Apnea No 01/14/25 10:12 CPAP BIPAP Do you snore loudly (louder No 01/14/25 10:12 than talking or can be heard Do you often feel tired/ No 01/14/25 10:12 fatigued/ sleepy during daytime? Has anyone observed you stop No 01/14/25 10:12 breathing during sleep? STOP Results Negative 01/14/25 10:12 QUESTION #5 FULL TEXT : Do you snore loudly (louder than talking or can be heard through closed doors)? 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 Specify any problems Hx of Preganancy in last 3 No 01/14/25 10:12 Months Nurse Filling Out Transfusion VCHRISTIN 01/14/25 10:12 & Questions: Date: 01/14/25 01/14/25 10:12 Time: 10:14 01/14/25 10:12 Patient unable to answer at this time (ie. confused, unrespo /Reproduction History /Reproductive History - certified neurodiagnostic technologist: /Reproductive Hx- certified neurodiagnostic technologist Hx Now Gestational Age (in weeks): EDC: Hx Hx Para Hx Section SAB PFSH Medical History (Updated 01/14/25 @ 10:12 by Laura Peres) Post-menopausal Cancer Depression Anxiety Walker as ambulation aid Anemia Back pain Injury of head and neck Gastric reflux Leg cramps 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 health care History of pneumococcal infection Headache, migraine Carpal tunnel syndrome history of bone fracture Back problem Arthritis Seasonal allergies Endometriosis Screening for intestinal cancer Iron deficiency anemia Renal cell cancer Former tobacco use Obesity Pancreatitis URI, acute History of nausea and vomiting History of abdominal pain Home Medications ?Medication ?Instructions ?Recorded ?Last Taken ?Type scopolamine base 1 mg over 3 days 1 patch topical Q72H 12/18/24 Unknown History transdermal patch escitalopram oxalate 10 mg tablet 10 mg PO DAILY 01/14 Unknown History omeprazole 40 mg capsule,delayed 40 mg PO DAILY Unknown History release ondansetron HCl 8 mg tablet 4 mg PO 4X/DAY PRN PRN rachel sea 01/14/25 Unknown History Allergy/AdvReac Type Severity Reaction Status Date / Time latex Allergy Mild rash Verified 01/14/25 10:03 Penicillins Allergy Unknown Verified 01/14/25 10:03 adhesive tape AdvReac Rash Verified 01/14/25 10:03 Family History Brother Asthma Malignant hyperthermia due to anesthesia Hypertension Grandfather Colon cancer Mother Heart disease Thyroid disorder COPD (chronic obstructive pulmonary disease) Arthritis Anemia Sister Breast cancer Hypertension Thyroid disorder Hypothyroid Arthritis Father Bleeding disorder Cancer Lung Myelodysplastic syndrome Chronic lymphocytic leukemia Alcohol abuse Aunt Myocardial infarction Surgical History (Updated 01/14/25 @ 10:12 by Laura Peres) History of esophagogastroduodenoscopy (EGD) History of back surgery s/p kidney cancer Status post endometrial ablation Social History household members: children Smoking Status: Former smoker alcohol intake: current alcohol intake frequency: holidays/special occasions o nly what type of physical activity do you participate in: walking, bicycling, aerobics and weight training do you feel safe at home: Yes Audit: Pertinent Findings Pertinent Findings EKG Perinent findings: 12/22/2024. Normal EKG. Recommendation Anesthesia Recommendation Anesthesia recommendation: OPTIMIZED for anesthesia
[2025-01-18] VITALS (9 sets, daily range): BP systolic 113–165; BP diastolic 81–97; PULSE 66–84; RESP 16–18; TEMP 36.3–37.2; O2SAT 94–100; BMI 37.8
--- NOTE | 2025-01-18 13:54 | PCM.PRE.AN2 ---
ASA Classification* ASA Classification ASA Classification: 2 Assessment & Plan Anesthesia* Anesthesia Assessment Anesthesia Assessment: Discussed sedation and/or anesthesia options, risks, benefits, and alternatives with patient/parents/legal guardian/POA. Questions invited. The patient/parents/legal guardian/POA seems to understand and agrees to proceed with anesthesia plan. Reviewed the physical assessment, medical history, allergy history and patient home medications list prior to surgery/procedure/anesthetic and documented any changes. Performed airway and anesthesia risk assessments. Anesthesia Type Anesthesia Type: MAC Anesthesia Focused Assessment* Airway Assessment Mouth opens: >3 cm Mallampati Score: II Focused Labs Anesthesia Preop lab: CBC WBC 6.6 K/mm3 (4.4-11.0) 12/23/24 06:15 12/23/24 RBC 4.02 M/mm3 (4.2-5.4) L 12/23/24 06:15 12/23/24 Hgb 12.3 g/dL (12.0-15.0) 12/23/24 06:15 12/23/24 Hct 35.6 % (37-47) L 12/23/24 06:15 12/23/24 Plt Count 220 K/mm3 (150-450) 12/23/24 06:15 12/23/24 CHEMISTRY Potassium 3.9 mmol/L (3.3-5.1) 12/23/24 06:15 12/23/24 Sodium 142 mmol/L (133-145) 12/23/24 06:15 12/23/24 Magnesium 2.3 mg/dL (1.5-2.2) H 12/20/24 06:28 12/20/24 BUN 14 mg/dL (4-19) 12/23/24 06:15 12/23/24 Creatinine 0.88 mg/dL (0.70-1.20) 12/23/24 06:15 12/23/24 Glucose 84 mg/dL (70-99) 12/23/24 06:15 12/23/24 POC Glucose 135 mg/dL (70-110) H 07/14/20 21:43 07/14/20 TSH 1.30 uIU/mL (0.358-3.74) 04/27/17 09:46 04/27/17 COAG Pre-Assessment Diagnosis/Proposed Procedure Planned Operative Procedure(s): EGD Anesthesia History Anesthesia History - claims adjuster crop: Anesthesia History - claims adjuster crop Hx Hospitalization Yes 01/14/25 10:12 Any Problems With Anesthesia No 01/14/25 10:12 Cholinesterase deficiency No 01/14/25 10:12 You/Your Family Experience No 01/14/25 10:12 fever (hyperthermia) with Relationship Recent Exposure to Contagious No 06/08/22 08:12 Disease Does patient have nerve No 01/14/25 10:12 stimulator Patient instructed to have device shut off --Does patient have Pacemaker or ICD? When Was Last Pacemaker Check QUESTION #4 FULL TEXT: You/Your Family Experience fever (hyperthermia) with Anesthesia Last Oral Intake Last Oral intake: Last Oral Intake NPO since Meds taken in AM with sips of water? Meds patient instructed to take am of surgery PONV PONV - claims adjuster crop: PONV - claims adjuster crop Female Yes 01/14/25 10:12 HX of Motion Sickness No 01/14/25 10:12 HX of N/V After Surgery No 01/14/25 10:12 Non-Smoker Yes 01/14/25 10:12 Duration of Surgery greater No 01/14/25 10:12 than 60 minutes Number of Risk Factors 2 01/14/25 10:12 PONV Score Moderate Risk 01/14/25 10:12 Height & Weight Height & Weight: Anesthesia: Height & Weight Height 5 ft 1 in 01/18/25 12:02 Respiratory Assessment Respiratory Assessment - claims adjuster crop: Respiratory Tract Infection Hx - claims adjuster crop Hx Respiratory Tract Infection No 01/14/25 10:12 STOP Sleep Apnea STOP Sleep Apnea - claims adjuster crop: STOP Sleep Apnea - claims adjuster crop Hx Hypertension No 01/18/25 12:02 Hx Sleep Apnea No 01/14/25 10:12 CPAP BIPAP Do you snore loudly (louder No 01/14/25 10:12 than talking or can be heard Do you often feel tired/ No 01/14/25 10:12 fatigued/ sleepy during daytime? Has anyone observed you stop No 01/14/25 10:12 breathing during sleep? STOP Results Negative 01/14/25 10:12 QUESTION #5 FULL TEXT : Do you snore loudly (louder than talking or can be heard through closed doors)? Tobacco Use History Tobacco Use History - claims adjuster crop: Tobacco Use History - claims adjuster crop Tobacco Use Non-smoker 06/08/22 08:12 Smoking Status Former smoker 01/14/25 10:12 Hx Tobacco Use No 01/14/25 10:12 Years Smoking Packs Smoked per Day Smoking Cessation Date was No - quit smoking greater 01/14/25 10:12 within the last 15 years than 15 years ago Hx Smoking Cessation Date 06/27/85 01/14/25 10:12 Hx Smoking Cessation Counseling Hematologic Medial History Hematologic Hx - claims adjuster crop: Hematologic Medical Hx - photo mask cleaner Hx of Blood Transfusion No 01/14/25 10:12 Hx of Transfusion in last 3 No 01/14/25 10:12 Months Date of Last Transfusion (if within last 3 months) Ever experience any problems No 01/14/25 10:12 with transfusion(s)? Specify any problems Hx of Preganancy in last 3 No 01/14/25 10:12 Months Nurse Filling Out Transfusion VCHRISTIN 01/14/25 10:12 & Questions: Date: 01/14/25 01/14/25 10:12 Time: 10:14 01/14/25 10:12 Patient unable to answer at this time (ie. confused, unrespo /Reproduction History /Reproductive History - claims adjuster crop: /Reproductive Hx- claims adjuster crop Hx Now Gestational Age (in weeks): EDC: Hx Hx Para Hx Section SAB PFSH Medical History Post-menopausal Cancer Depression Anxiety Walker as ambulation aid Anemia Back pain Injury of head and neck Gastric reflux Leg cramps 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 health care History of pneumococcal infection Headache, migraine Carpal tunnel syndrome history of bone fracture Back problem Arthritis Seasonal allergies Endometriosis Screening for intestinal cancer Iron deficiency anemia Renal cell cancer Former tobacco use Obesity Pancreatitis URI, acute History of nausea and vomiting History of abdominal pain Home Medications ?Medication ?Instructions ?Recorded ?Last Taken ?Type scopolamine base 1 mg over 3 days 1 patch topical Q72H 12/18/24 Unknown History transdermal patch escitalopram oxalate 10 mg tablet 10 mg PO DAILY 01/14/25 Unknown History omeprazole 40 mg capsule,delayed 40 mg PO DAILY 01/14/25 Unknown History release ondansetron HCl 8 mg tablet 4 mg PO 4X/DAY PRN PRN nausea 01/14/25 Unknown History Allergy/AdvReac Type Severity Reaction Status Date / Time latex Allergy Mild rash Verified 01/14/25 13:11 Penicillins Allergy Unknown Verified 01/14/25 13:11 adhesive tape AdvReac Rash Verified 01/14/25 13:11 Family History Brother Asthma Malignant hyperthermia due to anesthesia Hypertension Grandfather Colon cancer Mother Heart disease Thyroid disorder COPD (chronic obstructive pulmonary disease) Arthritis Anemia Sister Breast cancer Hypertension Thyroid disorder Hypothyroid Arthritis Father Bleeding disorder Cancer Lung Myelodysplastic syndrome Chronic lymphocytic leukemia Alcohol abuse Aunt Myocardial infarction Surgical History History of esophagogastroduodenoscopy (EGD) History of back surgery s/p kidney cancer Status post endometrial ablation Social History household members: children Smoking Status: Former smoker alcohol intake: current alcohol intake frequency: holidays/special occasions only what type of physical activity do you participate in: walking, bicycling, aerobics and weight training do you feel safe at home: Yes Review of Systems (Anesthesia) ROS Narrative System reviewed and no additional complaints, except as documented.
--- NOTE | 2025-01-18 14:54 | PCM.HP.STD ---
HPI - General General Date of Admission: 01/18/25 Date of Service: 01/18/25 Chief Complaint: Intractable nausea vomiting HPI Narrative ALVINO ESPITIA, is a 59 F who presentsAURA ESPITIA, is a 59 F who presents to the office today for f/u. [facility] admission12.18.24-12.23.24 with intractable n/v. Hx of multiple myeloma currently getting chemotherapy for 3 weeks and then one week off. Pt using medical marijuana for n/v. One day prior to symptoms onset she took off her fentanyl patch. GES and Abd/pelvis CT were normal. Ultimately discharged OV 12.26.24 Pt continues to have nausea. Her vomiting has subsided while being on zofran, haldol and reglan. She does not feel like this is related to her chemotherapy. She feels awful during her off weeks as well. She does use medical marijuana on occasion for nausea but it does not always help. She endorses a family hx of gallbladder issues. She did have a gallbladder US done at [facility] about a month ago but it was not a good study due to bowel gas. SHe has had a recent HIDA scan with a 45% EF. Last EGD was about 5 years ago. She has not been able to eat much for the past couple of weeks. She is able to keep cottage cheese, yogurt and grilled chicken done. Pt also has complaints of worsening diarrhea over the past few weeks. Stool testing in the hospital was positive PCR for c.dif and antigen positive. [facility] Medical History Post-menopausal Cancer Depression Anxiety Walker as ambulation aid Anemia Back pain Injury of head and neck Gastric reflux Leg cramps 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 health care History of pneumococcal infection Headache, migraine Carpal tunnel syndrome history of bone fracture Back problem Arthritis Seasonal allergies Endometriosis Screening for intestinal cancer Iron deficiency anemia Renal cell cancer Former tobacco use Obesity Pancreatitis URI, acute History of nausea and vomiting History of abdominal pain Home Medications ?Medication ?Instructions ?Recorded ?Last Taken ?Type scopolamine base 1 mg over 3 days 1 patch topical Q72H 12/18/24 Unknown History transdermal patch escitalopram oxalate 10 mg tablet 10 mg PO DAILY 01/14/25 Unknown History omeprazole 40 mg capsule,delayed 40 mg PO DAILY 01/14/25 Unknown History release ondansetron HCl 8 mg tablet 4 mg PO 4X/DAY PRN PRN nausea 01/14/25 Unknown History Allergy/AdvReac Type Severity Reaction Status Date / Time latex Allergy Mild rash Verified 01/14/25 13:11 Penicillins Allergy Unknown Verified 01/14/25 13:11 adhesive tape AdvReac Rash Verified 01/14/25 13:11 Family History Brother Asthma Malignant hyperthermia due to anesthesia Hypertension Grandfather Colon cancer Mother Heart disease Thyroid disorder COPD (chronic obstructive pulmonary disease) Arthritis Anemia Sister Breast cancer Hypertension Thyroid disorder Hypothyroid Arthritis Father Bleeding disorder Cancer Lung Myelodysplastic syndrome Chronic lymphocytic leukemia Alcohol abuse Aunt Myocardial infarction Surgical History History of esophagogastroduodenoscopy (EGD) History of back surgery s/p kidney cancer Status post endometrial ablation Social History household members: children Smoking Status: Former smoker alcohol intake: current alcohol intake frequency: holidays/special occasions only what type of physical activity do you participate in: walking, bicycling, aerobics and weight training do you feel safe at home: Yes ROS Constitutional Constitutional: Denies fatigue, fever(s), poor appetite, weight gain or weight loss Gastrointestinal Gastrointestinal: Denies belching, bloating, change in bowel habits, change in stool character, chewing difficulty, coffee ground emesis, constipation, cramping, diarrhea, dyspepsia, dysphagia, early satiety, excessive flatus, fecal incontinence, heartburn, hematemesis, hematochezia, hemorrhoids, loose stools, melena, nausea, odynophagia, rectal bleeding, tenesmus, vomiting or weight changes Vital Signs Vital Signs Vital Signs: 01/18/25 13:51 01/18/25 13:51 Temperature 98.9 F Temperature Source Temporal Pulse Rate 70 Respiratory Rate 16 Respiratory Pattern Normal Blood Pressure 165/97 H Blood Pressure Mean 119 Blood Pressure Source Monitor Blood Pressure Position Sitting Blood Pressure Location Right Arm Pulse Ox 100 Oxygen Delivery Method Room Air Weight Weight: 199 lb 15.348 oz Body Mass Index (BMI) 37.8 Physical Exam Const alert, oriented x3, no apparent distress and healthy appearing General Appearance: cooperative GI normal to inspection, nondistended, normoactive bowel sounds, soft to palpation, non-tender and non-distended Percussion: normal to percussion Rectal Exam: deferred Assessment & Plan Assessment/Plan (1) Intractable nausea: (2) Vomiting: PLAN: Assessment and Plan Assessment and Plan (1) Nausea and vomiting: Plan: This is a 59 yo female pt here today for hospital f/u for n/v. Pt has a PMHx of multiple myeloma on oral chemotherapy for weeks and off for one. Pt has been dealing with nausea since starting chemo but it has become worse. She feels worse on her weeks off and does not believe its related to chemo. She has concern for her gallbladder and did have an US done at [facility] about one month ago that was normal but a poor study due to bowel gas. She will have a repeat to further rule gallbladder etiology out. Pt will also undergo EGD to assess her upper GI tract for inflammation. She will continue reglan and zofran. Pt had a positive c.dif PCR and positive antigen. However since she is immunocompromised and has diarrhea will treat with vancomycin 125 mg every 6 hours for 10 days. -EGD -Continue reglan and zofran -Gallbladder US -Vancomycin 125 mg every 6 hours for 10 days (2) Intractable nausea: Status: Acute Orders: Orders Gallbladder Today R11.0 - Nausea Medications: New vancomycin 125 mg PO Q6H 40 caps 1RF 10 days Changed From metoclopramide HCl 5 mg PO Q6H 14 days 56 tabs 0RF To metoclopramide HCl 5 mg PO Q6H 224 tabs 0RF 8 weeks Refilled haloperidol 0.5 mg (1/2 x 1 mg) PO TID 21 tabs 0RF 14 days
--- NOTE | 2025-01-18 15:00 | EGD_PTH ---
PATIENT: ALVINO ESPITIA LOC: EN U#:[id number] AGE/SX: 59/F ROOM: RE01/18/[address]: Dr. Celso Hernández DO : 1965 BED: DIS: 01/18/2025 SPEC #: [id number] RECD: 01/21/25 08:42 STATUS: LISA REVi #: [id number] CAMILO: 01/18/25 15:[address]: Cleso Hernández DEPT: SURGICAL PATHOLOGY RECD BY: Mikael Acosta ENTERED: 01/21/25 08:42 SP TYPE: EGD BIOPSY OT DR: Shira Llanes PA-C Tissues: A - Duodenum, NOS B - Gastric mucous membrane C - Esophagus, NOS Procedures: Immunohistochemical Stains Surgery Specimen Level IV HEADER OPERATION: EGD with biopsy PRE-OP DIAGNOSIS: Intractable nausea, vomiting TISSUE SUBMITTED: A- Duodenum biopsy, B- Gastric body biopsy, C- Distal esophagus biopsy MICROSCOPIC DIAGNOSIS A. Small bowel, duodenum, biopsy: * Steven gland hyperplasia with gastric mucin cell metaplasia, suggestive of peptic injury. * Negative for increased intraepithelial lymphocytes. B. Stomach, body, biopsy: * Oxyntic mucosa with features of reactive gastropathy. * Pancreatic acinar metaplasia. * IHC negative for H pylori organisms. C. Distal esophagus, biopsy: * Squamous mucosa with mild reactive change and rare eosinophil. * Columnar mucosa negative for goblet cell metaplasia MICROSCOPIC DESCRIPTION Slides are reviewed. These tests were developed and their performance characteristics determined by [facility]. They may not have been cleared or approved by the U.S. Food and Drug Administration. The FDA has determined that such clearance or approval is not necessary. The above immunohistochemical/dualISH markers are ordered and reviewed by the Pathologist. GROSS DESCRIPTION A. Received in formalin in a container labeled with the patient's name, date of , and duodenum biopsy are 2 strong-pink fragments of mucosal tissue, each measuring 0.3 x 0.3 x 0.3 cm. Submitted in toto in A1. B. Received in formalin in a container labeled with the patient's name, date of , and gastric body biopsy for H. pylori and path are multiple strong-pink fragments of mucosal tissue measuring 1.0 x 0.9 x 0.3 cm in aggregate. Submitted in toto in B1. C. Received in formalin in a container labeled with the patient's name, date of , and distal esophagus biopsy are 2 strong-pink fragments of mucosal tissue, each measuring 0.3 x 0.3 x 0.3 cm. Submitted in toto in C1. SMB 01/28/2025 CPT:83458l3,47342
--- NOTE | 2025-01-18 15:26 | OP.CCLET_ITS ---
01/18/2025 No Primary Care Physician Re : Upper GI endoscopy procedure for Deepa Nina Dear Care Physician This procedure was performed on Saturday, January 18, 2025. My impressions and recommendations are as follows: Impressions : - LA Grade A reflux esophagitis with no bleeding. Biopsied. - Bile gastritis. Biopsied. - Chronic duodenitis. Biopsied. Recommendations : - Discharge patient to home. - Resume previous diet. - Continue present medications. - Await pathology results. My findings are described in the full procedure note, which is enclosed. If I can be of further assistance, please feel free to contact me at . Sincerely, Celso Hernández DO 01/18/2025 3:25:54 PM This report has been signed electronically.
--- NOTE | 2025-01-18 15:26 | OP.EGD_ITS ---
Patient Name: Deepa Nina Procedure Date: 01/18/2025 2:58 PM Date of : 1965 Age: 59 Procedure: Upper GI endoscopy Indications: Epigastric abdominal pain, Heartburn Providers: Celso Hernández DO Medicines: Monitored Anesthesia Care Patient Profile: This is a 59 year old female. Refer to note in patient chart for documentation of history and physical. Patient has symptoms of chronic epigastric abdominal pain, chronic dyspepsia, chronic heartburn and chronic nausea. Complications: No immediate complications. Procedure: Pre-Anesthesia Assessment: - Prior to the procedure, a History and Physical was performed, and patient medications and allergies were reviewed. The patient is competent. The risks and benefits of the procedure and the sedation options and risks were discussed with the patient. All questions were answered and informed consent was obtained. Patient identification and proposed procedure were verified by the physician in the pre-procedure area. Mental Status Examination: alert and oriented. Airway Examination: normal oropharyngeal airway and neck mobility. Respiratory Examination: clear to auscultation. CV Examination: normal. Prophylactic Antibiotics: The patient does not require prophylactic antibiotics. Prior Anticoagulants: The patient has taken no anticoagulant or antiplatelet agents except for NSAID medication. ASA Grade Assessment: II - A patient with mild systemic disease. After reviewing the risks and benefits, the patient was deemed in satisfactory condition to undergo the procedure. The anesthesia plan was to use monitored anesthesia care (MAC). Immediately prior to administration of medications, the patient was re-assessed for adequacy to receive sedatives. The heart rate, respiratory rate, oxygen saturations, blood pressure, adequacy of pulmonary ventilation, and response to care were monitored throughout the procedure. The physical status of the patient was re-assessed after the procedure. After obtaining informed consent, the endoscope was passed under direct vision. Throughout the procedure, the patient's blood pressure, pulse, and oxygen saturations were monitored continuously. The Endoscope was introduced through the mouth, and advanced to the second part of duodenum. The upper GI endoscopy was accomplished without difficulty. The patient tolerated the procedure well. Scope In: 3:14:00 PM Scope Out: 3:19:50 PM Total Procedure Duration Time 0 hours 5 minutes 50 seconds Findings: LA Grade A (one or more mucosal breaks less than 5 mm, not extending between tops of 2 mucosal folds) esophagitis with no bleeding was found 39 to 40 cm from the incisors. Biopsies were taken with a cold forceps for histology. Verification of patient identification for the specimen was done. Estimated blood loss was minimal. Segmental mild inflammation characterized by erythema was found in the gastric body. Biopsies were taken with a cold forceps for histology. Verification of patient identification for the specimen was done. Biopsies were taken with a cold forceps for Helicobacter pylori testing. Verification of patient identification for the specimen was done. Estimated blood loss was minimal. Patchy mild inflammation characterized by erythema and granularity was found in the entire duodenum. Biopsies for histology were taken with a cold forceps for evaluation of celiac disease. Biopsies were taken with a cold forceps for histology. Verification of patient identification for the specimen was done. Estimated blood loss was minimal. Impression: - LA Grade A reflux esophagitis with no bleeding. Biopsied. - Bile gastritis. Biopsied. - Chronic duodenitis. Biopsied. Recommendation: - Discharge patient to home. - Resume previous diet. - Continue present medications. - Await pathology results. Procedure Code(s): --- Professional --- 89031, Esophagogastroduodenoscopy, flexible, transoral; with biopsy, single or multiple CPT copyright 2021 [employer]. All rights reserved. The codes documented in this report are preliminary and upon hospice art therapist review may be revised to meet current compliance requirements. Celso Hernández DO 01/18/2025 3:25:54 PM This report has been signed electronically. Number of Addenda: 0 Note Initiated On: 01/18/2025 2:58 PM
--- NOTE | 2025-01-18 15:33 | PCM.POST.ANE ---
Anesthesia: Postop Eval I Current Vital Signs Temperature: 97.7 F Pulse Rate: 84 Blood Pressure: 122/81 Respiratory Rate: 16 Pulse Ox: 95 Oxygen Delivery Method: Room Air Assessment Airway patent: Yes Spontaneous unlabored respirations: Yes Mental status: Awake and Calm nausea: No Vomiting: No Anesthesia Complication: No Fluid Hydration Crystalloid volume administer (ml): 30 Total IV fluid infused: 30 Progress Note Anesthesia document: Postop Eval 1 completed: Yes
--- NOTE | 2025-01-18 15:34 | PCM.POSTANE2 ---
Anesthesia Postop Eval I Sum Postop Eval Completion status Anesthesia document: Postop Eval 1 completed: Yes Anesthesia Postop Eval I Summary Anesthesia Postop Eval I Summary: Anesthesia Postop Eval I: Assessment Summary Airway patent Yes 01/18/25 15:34 [email or web address] Spontaneous unlabored Yes 01/18/25 15:34 [email or web address] respirations Mental status Awake,Calm 01/18/25 15:34 [email or web address] nausea No 01/18/25 15:34 [email or web address] Vomiting No 01/18/25 15:34 [email or web address] Anesthesia Postop Eval I: Fluid Summary Crystalloid volume administer 30 01/18/25 15:34 [email or web address] (ml) Colloids volume administered ( ml) Blood Product volume administered (ml) Total IV fluid infused 30 01/18/25 15:34 [email or web address] Anesthesia Postop Eval I: Summary Notes Anesthesia Complication No 01/18/25 15:34 [email or web address] Anesthesia Complication Comment: Post-operative progress note Anesthesia: Postop Eval II Evaluation Mental status: Awake Pain Level: 0 nausea: No Vomiting: No
== END 2025-01-18 16:23 | disposition home or self-care (01) ==
LOC: EN 13:22 → AC 13:23
PROVIDERS: PCP Family Medicine; Referring Provider Family Medicine; Visit Provider Internal Medicine Gastroenterology
PROC: 0DJ08ZZ Inspection of Upper Intestinal Tract, Via Natural or Artificial Opening Endoscopic (ICD-10-PCS; CPT 43235; principal; 2025-01-18 14:55)
DX: K21.00 Gastro-esophageal reflux disease with esophagitis, without bleeding (principal); C90.00 Multiple myeloma not having achieved remission; K29.80 Duodenitis without bleeding; R19.7 Diarrhea, unspecified; K29.70 Gastritis, unspecified, without bleeding; E86.0 Dehydration; R11.2 Nausea with vomiting, unspecified; Z87.891 Personal history of nicotine dependence
CPT/HCPCS: 43239; 96360; 88305; 88342; A4216; J2405

== ENCOUNTER 2025-01-21 11:16 | Outpatient (CLI) | payer MEDICARE, MEDICAID, SELFPAY ==
[2025-01-21 11:28] VITALS: BP 153/79; PULSE 80; RESP 16; TEMP 35.8; O2SAT 97
[2025-01-21] MEDS: 0.9% Normal Saline (1000mL) 1,000 ML 999 ML IV (11:37)
[2025-01-21 12:47] VITALS: BP 137/82; PULSE 78; RESP 16; TEMP 35.5; O2SAT 98
== END 2025-01-21 23:59 | disposition home or self-care (01) ==
LOC: MEDOUTP 11:16
PROVIDERS: PCP Family Medicine; Referring Provider Family Medicine; Visit Provider Family Medicine
DX: R11.2 Nausea with vomiting, unspecified (principal); C90.00 Multiple myeloma not having achieved remission; E86.0 Dehydration
CPT/HCPCS: 96360; A4216

== ENCOUNTER 2025-01-23 11:27 | Outpatient (CLI) | payer MEDICARE, MEDICAID, SELFPAY ==
[2025-01-23 11:33] VITALS: BP 146/83; PULSE 71; RESP 16; TEMP 35.6; O2SAT 97
[2025-01-23] MEDS: 0.9% Normal Saline (1000mL) 1,000 ML 999 ML IV (11:43)
[2025-01-23 12:51] VITALS: BP 144/83; PULSE 76; RESP 16
== END 2025-01-23 23:59 | disposition home or self-care (01) ==
LOC: MEDOUTP 11:27
PROVIDERS: PCP Family Medicine; Referring Provider Family Medicine; Visit Provider Family Medicine
DX: E86.0 Dehydration (principal); C90.00 Multiple myeloma not having achieved remission; R11.2 Nausea with vomiting, unspecified
CPT/HCPCS: 96360; A4216

== ENCOUNTER 2025-01-25 16:06 | Emergency (ER) | payer MEDICARE, MEDICAID, SELFPAY ==
[2025-01-25 16:07] VITALS: BP 163/104; PULSE 126; RESP 19; TEMP 36.7; O2SAT 94; BMI 37.6
--- NOTE | 2025-01-25 16:19 | EKG12_ITS ---
Test Reason : SOB Blood Pressure : */* mmHG Vent. Rate : 123 BPM Atrial Rate : 123 BPM P-R Int : 150 ms QRS Dur : 74 ms QT Int : 282 ms P-R-T Axes : * 164 144 degrees QTcB Int : 403 ms Sinus tachycardia Right axis deviation Nonspecific ST and T wave abnormality Abnormal ECG Confirmed by SANJU WALTER, HONEY ([id number]), magazine editor LLUVIA GUERRERO ([id number]) on 01/28/2025 8:42:53 AM Referred By: JOSE LUIS/KETAN Confirmed By: HONEY BILLS MD
--- NOTE | 2025-01-25 16:53 | EX.ED.DYSGE1 ---
HPI History of Present Illness Chief Complaint: Shortness of Breath Informant: patient and family Narrative Narrative: 59-year-old female presenting to the emergency room with possible medication reaction. Patient states that today she went to [facility] oncology and had her first infusion of Darzalex. She states that she has been for multiple myeloma. She states that around 1020 she was given Benadryl Pepcid and some dexamethasone. She states that shortly after she was given the infusion of the Darzalex she became tachycardic. We observed her and on her way home from the facility she states that her throat became tight she developed a slight cough and some hoarseness to her voice in addition to some wheezing. Patient denies any itching. She denies any rash. No vomiting diarrhea. PFSH FORMERLY [facility], 1928–1983 Medical History Post-menopausal Cancer Depression Anxiety Walker as ambulation aid Anemia Back pain Injury of head and neck Gastric reflux Leg cramps 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 health care History of pneumococcal infection Headache, migraine Carpal tunnel syndrome history of bone fracture Back problem Arthritis Seasonal allergies Endometriosis Screening for intestinal cancer Iron deficiency anemia Renal cell cancer Former tobacco use Obesity Pancreatitis URI, acute History of nausea and vomiting History of abdominal pain Home Medications ?Medication ?Instructions ?Recorded ?Last Taken ?Type scopolamine base 1 mg over 3 days 1 patch topical Q72H 12/18/24 Unknown History transdermal patch escitalopram oxalate 10 mg tablet 10 mg PO DAILY 01/14/25 Unknown History omeprazole 40 mg capsule,delayed 40 mg PO DAILY 01/14/25 Unknown History release ondansetron HCl 8 mg tablet 4 mg PO 4X/DAY PRN PRN nausea 01/14/25 Unknown History Allergy/AdvReac Type Severity Reaction Status Date / Time latex Allergy Mild rash Verified 01/25/25 16:07 Penicillins Allergy Unknown Verified 01/25/25 16:07 adhesive tape AdvReac Rash Verified 01/25/25 16:07 Family History Brother Asthma Malignant hyperthermia due to anesthesia Hypertension Grandfather Colon cancer Mother Heart disease Thyroid disorder COPD (chronic obstructive pulmonary disease) Arthritis Anemia Sister Breast cancer Hypertension Thyroid disorder Hypothyroid Arthritis Father Bleeding disorder Cancer Lung Myelodysplastic syndrome Chronic lymphocytic leukemia Alcohol abuse Aunt Myocardial infarction Surgical History History of esophagogastroduodenoscopy (EGD) History of back surgery s/p kidney cancer Status post endometrial ablation Social History household members: children Smoking Status: Former smoker alcohol intake: current alcohol intake frequency: holidays/special occasions only what type of physical activity do you participate in: walking, bicycling, aerobics and weight training do you feel safe at home: Yes ROS ROS ED Constitutional Constitutional ED: Denies chills or weight loss Eyes Eyes: Denies change in vision or diplopia ENT ENT ED: Reports other Details: See history of present illness ; Denies ear pain, rhinorrhea or sore throat Cardiovascular Cardiovascular: Reports racing heartbeat; Denies chest pain, orthopnea or palpitations Respiratory/Chest Respiratory/Chest: Reports other Details: Reported wheeze ; Denies cough, dyspnea or orthopnea Gastrointestinal Gastrointestinal: Denies abdominal pain, diarrhea, nausea or vomiting Genitourinary Genitourinary ED: Denies dysuria, hematuria or urinary frequency Musculoskeletal Musculoskeletal: Denies arthralgias or myalgias Integumentary Denies abscess or rash Neurologic Neurologic: Denies headache(s) or weakness Psychiatric Psychiatric: Denies anxiety, depression, suicidal ideation or suicidal thoughts Endocrine Endocrinology: Denies polydipsia, polyphagia or polyuria Allergic/Immunologic Allergic/Immunologic ED: Denies mouth swelling, tongue swelling or urticaria EXAM Physical Exam Const Vital Signs: 01/25/25 16:07 01/25/25 17:10 01/25/25 17:17 Temperature 98.1 F Temperature Source Temporal Pulse Rate 126 H 117 H Respiratory Rate 19 H 16 Respiratory Effort Short of Breath Respiratory Depth Normal Respiratory Pattern Normal Blood Pressure 163/104 H 157/87 H Blood Pressure Mean 123 110 Pulse Ox 94 94 Oxygen Delivery Method Room Air Room Air Room Air 01/25/25 18:12 01/25/25 18:35 Temperature 98.0 F Temperature Source Pulse Rate 107 H 105 H Respiratory Rate 16 18 Respiratory Effort Respiratory Depth Respiratory Pattern Blood Pressure 125/75 H 139/89 H Blood Pressure Mean 91 105 Pulse Ox 94 96 Oxygen Delivery Method Room Air Positive well nourished and well developed General Appearance ED: well developed HEENT Reports normocephalic, head/scalp atraumatic and moist mucous membranes HEENT Narrative: Intermittent hoarse voice. I do not appreciate any stridor. No uvula swelling. Handling secretions normally. Able to drink water appropriately. Eyes PERRL and EOMs intact bilaterally Neck no lymphadenopathy, supple and no JVD Resp normal respiratory effort and clear to auscultation bilaterally Cardio regular rate, regular rhythm and no murmurs Rate: tachycardic GI normal to inspection, nondistended, normoactive bowel sounds and non-tender Palpation: soft Back/Spine no CVA tenderness and normal ROM Extremity normal to inspection General Extremety ED: Negative for edema General Extremity: Negative for edema Neuro oriented x3 and CN's II-XII intact bilaterally Sensorium / Orientation: alert Motor Exam: strength 5/5 throughout Psych mental status grossly normal Mood & Affect: Negative for depressed or tearful Skin no rashes or lesions noted and no wounds Skin Narrative: I do not appreciate any hives. No petechiae. Patient does not observed itching. MDM MDM MDM Narrative Medical decision making narrative: Differential diagnosis includes but not limited to anaphylaxis upper airway swelling bronchospasm allergic reaction medication reaction cardiac dysrhythmia EKG shows sinus tachycardia. Patient received a dose of Solu-Medrol IV Benadryl and p.o. Pepcid. She was observed. She has been taking p.o. without difficulty. She states she feels significantly better at least 90%. She does not wish to stay for further observation. She feels comfortable going home and monitoring herself. She will follow-up with oncology. History & Record Review Discussion w/independent historian: Patient and Family EKG Initial EKG: Attestation: I personally reviewed and interpreted this EKG as follows: Comments: Sinus tachycardia ventricular rate of 123 bpm. Discharge Plan Triage Chief Complaint: Shortness of Breath ED Provider: Jerad Silvestre Dx/Rx/DC Orders Clinical Impression: Medication reaction, Sinus tachycardia Prescriptions: No Action scopolamine base 1 mg over 3 days patch 3 day 1 patch topical Q72H Rx Instructions: LAST PLACED 12/18/24 ondansetron HCl 8 mg tablet 4 mg PO 4X/DAY PRN PRN (Reason: nausea) omeprazole 40 mg capsule,delayed release(DR/EC) 40 mg PO DAILY escitalopram oxalate 10 mg tablet 10 mg PO DAILY Primary Care Provider: Shira Llanes Referrals: Curtis Styles DO [Med Staff - Active Staff] - Keep Fili appointment Shira Llanes, PA-C [Primary Care Provider] - Print Language: Greek Disposition Disposition: Home, Self Care Discharge Date/Time: 01/25/25 18:42
[2025-01-25] MEDS: Famotidine 20 MG Tablet 40 MG PO (16:58)
[2025-01-25] MEDS: MethylPREDNISolone 125 MG/2 ML Vial 60 MG IV (16:58)
[2025-01-25] MEDS: DiphenhydrAMINE 50 MG/ML Syringe 25 MG IV (16:58)
[2025-01-25 17:10] VITALS: BP 157/87; PULSE 117; RESP 16; O2SAT 94
[2025-01-25 17:17] VITALS: O2SAT 94
--- NOTE | 2025-01-25 17:19 | ED.RN ---
PT WAS AT [facility] RECEIVING HER FIRST DOSE OF CHEMO, DARZALEX SQ, STARTING HAVING SUDDEN ONSET OF SOB; SINCE RELIEVED
[2025-01-25 18:12] VITALS: BP 125/75; PULSE 107; RESP 16; O2SAT 94
[2025-01-25 18:35] VITALS: BP 139/89; PULSE 105; RESP 18; TEMP 36.7; O2SAT 96
== END 2025-01-25 18:42 | disposition home or self-care (01) ==
PROVIDERS: Emergency Provider Emergency Medicine; PCP Family Medicine; Visit Provider Emergency Medicine
DX: R00.0 Tachycardia, unspecified (principal); C90.00 Multiple myeloma not having achieved remission; T45.1X5A Adverse effect of antineoplastic and immunosuppressive drugs, initial encounter; R06.02 Shortness of breath; F32.A Depression, unspecified; F41.9 Anxiety disorder, unspecified; Z87.891 Personal history of nicotine dependence
CPT/HCPCS: 93005; 96374; 96375; 99283

== ENCOUNTER 2025-01-28 12:11 | Outpatient (CLI) | payer MEDICARE, MEDICAID, SELFPAY ==
[2025-01-28] MEDS: 0.9% Normal Saline (1000mL) 1,000 ML 999 ML IV (12:34)
[2025-01-28 12:36] VITALS: BP 133/86; PULSE 92; RESP 16; TEMP 35.8; O2SAT 97; BMI 37.5
== END 2025-01-28 23:59 | disposition home or self-care (01) ==
LOC: MEDOUTP 12:11
PROVIDERS: PCP Family Medicine; Referring Provider Family Medicine; Visit Provider Family Medicine
DX: C90.00 Multiple myeloma not having achieved remission (principal); E86.0 Dehydration; R11.2 Nausea with vomiting, unspecified
CPT/HCPCS: 96360; A4216

== ENCOUNTER 2025-01-30 12:46 | Outpatient (CLI) | payer MEDICARE, MEDICAID, SELFPAY ==
[2025-01-30] MEDS: 0.9% Normal Saline (1000mL) 1,000 ML 999 ML IV (13:24)
[2025-01-30 13:25] VITALS: BP 136/81; PULSE 99; RESP 16; TEMP 36; O2SAT 96; BMI 37.5
[2025-01-30 14:31] VITALS: BP 130/81; PULSE 89; RESP 16; TEMP 36.1; O2SAT 99
== END 2025-01-30 23:59 | disposition home or self-care (01) ==
LOC: MEDOUTP 12:47
PROVIDERS: PCP Family Medicine; Referring Provider Family Medicine; Visit Provider Family Medicine
DX: E86.0 Dehydration (principal); C90.00 Multiple myeloma not having achieved remission; R11.2 Nausea with vomiting, unspecified
CPT/HCPCS: 96360; A4216

== ENCOUNTER 2025-02-18 13:12 | Emergency (ER) | payer MEDICARE, MEDICAID, SELFPAY ==
[2025-02-18] VITALS (9 sets, daily range): BP systolic 130–136; BP diastolic 57–95; PULSE 93–110; RESP 15–18; TEMP 36.8–36.9; O2SAT 97–99; BMI 38.4
--- NOTE | 2025-02-18 17:01 | EX.ED.DYSGE1 ---
HPI History of Present Illness Chief Complaint: Cough PFSH PFSH Medical History Post-menopausal Cancer Depression Anxiety Walker as ambulation aid Anemia Back pain Injury of head and neck Gastric reflux Leg cramps 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 health care History of pneumococcal infection Headache, migraine Carpal tunnel syndrome history of bone fracture Back problem Arthritis Seasonal allergies Endometriosis Screening for intestinal cancer Iron deficiency anemia Renal cell cancer Former tobacco use Obesity Pancreatitis URI, acute History of nausea and vomiting History of abdominal pain Home Medications ?Medication ?Instructions ?Recorded ?Last Taken ?Type scopolamine base 1 mg over 3 days 1 patch topical Q72H 12/18/24 Unknown History transdermal patch escitalopram oxalate 10 mg tablet 10 mg PO DAILY 01/14/25 Unknown History omeprazole 40 mg capsule,delayed 40 mg PO DAILY 01/14/25 Unknown History release ondansetron HCl 8 mg tablet 4 mg PO 4X/DAY PRN PRN nausea 01/14/25 Unknown History benzonatate 100 mg capsule 100 mg PO TID PRN cough #20 caps 02/18/25 Unknown Rx Allergy/AdvReac Type Severity Reaction Status Date / Time latex Allergy Mild rash Verified 02/18/25 13:13 Penicillins Allergy Unknown Verified 02/18/25 13:13 adhesive tape AdvReac Rash Verified 02/18/25 13:13 Family History Brother Asthma Malignant hyperthermia due to anesthesia Hypertension Grandfather Colon cancer Mother Heart disease Thyroid disorder COPD (chronic obstructive pulmonary disease) Arthritis Anemia Sister Breast cancer Hypertension Thyroid disorder Hypothyroid Arthritis Father Bleeding disorder Cancer Lung Myelodysplastic syndrome Chronic lymphocytic leukemia Alcohol abuse Aunt Myocardial infarction Surgical History History of esophagogastroduodenoscopy (EGD) History of back surgery s/p kidney cancer Status post endometrial ablation Social History household members: children Smoking Status: Former smoker alcohol intake: current alcohol intake frequency: holidays/special occasions only what type of physical activity do you participate in: walking, bicycling, aerobics and weight training do you feel safe at home: Yes EXAM Physical Exam Const Vital Signs: 02/18/25 13:13 02/18/25 13:16 02/18/25 15:13 Temperature 98.3 F 98.3 F Temperature Source Oral Oral Pulse Rate 110 H 110 H 93 Respiratory Rate 18 18 Respiratory Effort Respiratory Depth Respiratory Pattern Blood Pressure 136/95 H 136/95 H 135/57 H Blood Pressure Mean 108 108 83 Pulse Ox 97 97 Oxygen Delivery Method Room Air Room Air 02/18/25 17:00 02/18/25 17:00 02/18/25 18:00 Temperature 98.3 F 98.3 F Temperature Source Oral Oral Pulse Rate 93 93 101 H Respiratory Rate 16 16 Respiratory Effort Respiratory Depth Respiratory Pattern Blood Pressure 135/57 H 135/57 H 136/78 H Blood Pressure Mean 83 83 97 Pulse Ox 97 98 98 Oxygen Delivery Method Room Air Room Air Room Air 02/18/25 18:49 02/18/25 18:59 02/18/25 18:59 Temperature 98.3 F Temperature Source Oral Pulse Rate 95 Respiratory Rate 15 Respiratory Effort Normal Non-Labored Respiratory Depth Normal Respiratory Pattern Normal Blood Pressure 135/82 H 135/82 H Blood Pressure Mean 99 99 Pulse Ox 99 Oxygen Delivery Method Room Air Room Air 02/18/25 20:00 02/18/25 20:57 02/18/25 21:00 Temperature 98.5 F 98.5 F Temperature Source Oral Pulse Rate 94 95 95 Respiratory Rate 17 18 18 Respiratory Effort Respiratory Depth Respiratory Pattern Blood Pressure 135/82 H 130/78 H 130/78 H Blood Pressure Mean 99 95 95 Pulse Ox 97 98 98 Oxygen Delivery Method Room Air Room Air MDM MDM MDM Narrative Medical decision making narrative: HISTORY OF PRESENT ILLNESS: Chief complaint: Cough 59-year-old female history of multiple myeloma, renal cell cancer, currently on chemo states she is on oral antibiotics for cough but things are getting worse. Notes she is on doxycycline day 3 of 7. She was coughing diffuse weakness. Denies fever. Denies abdominal pain. Denies urinary frequency, urgency, dysuria denies fever no she just does not feel well. Notes a hoarse voice REVIEW OF SYSTEMS: Pertinent positives: Cough, diffuse weakness Pertinent negatives: Focal weakness, urinary complaints, abdominal pain, vomiting PHYSICAL EXAM: Nursing triage notes reviewed, Vital signs reviewed Constitutional: please see mdm HENT: MMM, no posterior pharyngeal exudates or swelling, uvula midline, no pooling secretions, Eyes: Pupils equal round and reactive to light, Extraocular muscles intact Neck: No stridor, no JVD, full neck ROM Lungs: Clear to auscultation, No wheezing or rales. No increased work of breathing, no conversational dyspnea, no accessory muscle use, no nasal flaring. No respiratory distress noted Heart: Regular rate and rhythm, No murmurs, No rubs and No gallops, 2+ distal pulses (radial, femoral, posterior tibial) in all extremities Abdomen: Soft, there is no tenderness, rigidity, rebound or guarding, no obvious peritoneal signs, no palpable pulsatile abdominal masses, no auscultated abdominal bruit : No CVAT Extremities: No edema Neuro: No new focal neurological deficits, cranial nerves II through XII intact, 5/5 strength in all present extremities. Intact sensation to light touch in all present extremities, 2+ reflexes bilateral patella tendons. No focal neurologic deficits Skin: No rash or lesions noted MEDICAL DECISION MAKING: Chief Complaint: please see HPI External records reviewed: Reviewed prior hospitalizations, Factors affecting care: As per [facility] Social determinants of health: Medical marijuana use History obtained from others: none Consults: none [facility] Narrative: The patient was initially tachycardic otherwise afebrile and nontoxic-appearing. Exam without focal weakness. I considered the following differential diagnosis: Pneumonia, viral illness I obtained a broad lab and imaging workup to further elucidate etiology of the patient's complaint ALL IMAGES (IF OBTAINED) HAVE BEEN PERSONALLY REVIEWED AND INTERPRETED BY MYSELF. EKG with normal sinus rhythm rate of 100, normal axis, normal intervals, no STEMI Chest x-ray was read and reviewed personally myself showed chest port, lungs otherwise appear clear with no obvious focal consolidation, there is some peribronchial thickening noted, no cardiomegaly. CBC without leukocytosis, severe anemia, no thrombocytopenia. CMP without evidence of acute kidney injury, significant electrolyte abnormality, anion gap to suggest end organ hypo-perfusion, no evidence of metabolic acidosis with a normal bicarbonate, no evidence of hepatobiliary obstructive pathology. COVID/flu/RSV negative Urinalysis shows no evidence of urinary inflammation suggestive of UTI Lactate is wnl indicating no end-organ hypoperfusion and/or hypoxia. On re-evaluation patient clara medically stable or improved with normal saline from 110 to 94. The patient ambulated here without significant hypoxia. She is appropriate for discharge home to continue doxycycline. She was prescribed Tessalon Perles to suppress cough. Strict return precautions were discussed. The patient and/or family, caregivers express understanding. The patient and/or family, caregivers agrees with the plan. Shared decision making: I will have a discussion with the patient and or visitors regarding risk/benefits of further testing or admission. They will be made aware of of the risk/benefits inherent in this decision they will be given the opportunity to voice understanding. Total critical care time today provided was at least 0 minutes. This excludes separately billable procedures. Critical care time (if documented) is secondary to the patient having high probability of clinically significant/life threatening deterioration in the patient's condition which required my urgent intervention. Impression: 1. Cough 2. History of cancer 3. Currently on chemotherapy Dispo: Discharge This note was generated with [employer] dictation software. It may contain incorrect words, spelling, and punctuation that were not noted in review of the chart prior to signing. Lab Data Labs: Laboratory Results - last 24 hr 02/18/25 02/18/25 02/18/25 17:56 18:47 19:30 WBC 6.2 RBC 4.04 L Hgb 12.6 Hct 37.3 MCV 92.3 MCH 31.2 MCHC 33.8 RDW Std Deviation 44.6 H RDW Coeff of Marcia 13.1 Plt Count 158 MPV 9.4 Immature Gran % (Auto) 0.300 Neut % (Auto) 77.4 H Lymph % (Auto) 10.1 L [place] % (Auto) 10.6 H Eos % (Auto) 1.1 Baso % (Auto) 0.5 Absolute Neuts (auto) 4.8 Absolute Lymphs (auto) 0.62 L Nucleated RBC % 0 Sodium 138 Potassium 3.8 Chloride 101 Carbon Dioxide 26.4 Anion Gap 11 BUN 12 Creatinine 0.93 Est GFR (MDRD) Non-Af 70 BUN/Creatinine Ratio 12.5 Glucose 99 Lactic Acid < 1.0 Calcium 9.5 Total Bilirubin 0.37 AST 16 ALT 13 Alkaline Phosphatase 76 Total Protein 6.7 Albumin 4.1 Globulin 2.6 Albumin/Globulin Ratio 1.6 Urine Color Cancelled Yellow Urine Clarity Cancelled Clear Urine pH Cancelled 5.0 Ur Specific [place] Cancelled 1.025 U Specif Grav (Refrac) Cancelled Urine Protein Cancelled 15 H Urine Glucose (UA) Cancelled Normal Urine Ketones Cancelled Negative Urine Occult Blood Cancelled Negative Urine Nitrite Cancelled Negative Urine Bilirubin Cancelled Negative Urine Urobilinogen Cancelled Normal Ur Leukocyte Esterase Cancelled Negative Urine RBC Cancelled 0-5 SEEN Urine WBC Cancelled 0-5 SEEN Ur Squamous Epith Cells Cancelled 0-5 SEEN Ur Transition Epith Cell Cancelled Ur Renal Epithelial Cell Cancelled Calcium Oxalate Crystal Cancelled Uric Acid Crystals Cancelled Triple Phos Crystals Cancelled Other Crystals Cancelled Amorphous Sediment Cancelled Urine Bacteria Cancelled 0 SEEN Hyaline Casts Cancelled Fine Granular Casts Cancelled Coarse Granular Casts Cancelled Waxy Casts Cancelled RBC Casts Cancelled WBC Casts Cancelled Urine Mucus Cancelled 0 SEEN Urine Trichomonas Cancelled Urine Yeast Cancelled Radiography Diagnostic Testing: Clinical Impression(s) from Imaging Studies Chest X-Ray 02/18/25 18:00 IMPRESSION: A right subclavian central venous catheter with port is seen, with tip projecting near the expected junction of the SVC and right atrium. Lungs are hypoinflated, but appear clear of acute disease. No pleural effusion or pneumothorax is noted. The cardiomediastinal silhouette is stable, with a tortuous aorta noted. No evidence of cardiomegaly. Generalized osteopenia and multiple vertebral body compression fractures appear similar to the prior study. No interval osseous change is seen. Reading Location: [place] [address] Discharge Plan Triage Chief Complaint: Cough ED Provider: Kingsley Kunz Dx/Rx/DC Orders Clinical Impression: Cough Instructions: ED Symptoms Uncertain Cause Prescriptions: New benzonatate 100 mg capsule 100 mg PO TID PRN (Reason: cough) Qty: 20 0RF No Action scopolamine base 1 mg over 3 days patch 3 day 1 patch topical Q72H Rx Instructions: LAST PLACED 12/18/24 ondansetron HCl 8 mg tablet 4 mg PO 4X/DAY PRN PRN (Reason: nausea) omeprazole 40 mg capsule,delayed release(DR/EC) 40 mg PO DAILY escitalopram oxalate 10 mg tablet 10 mg PO DAILY Primary Care Provider: Shira Llanes Referrals: Shira Llanes PA-C [Primary Care Provider] - Activity Restrictions/Additional Instructions: Thank you for trusting us with your care today! Please continue taking antibiotic until course is complete. please take Tylenol (2 pills, 650 mg), ibuprofen (2 pills, 400 mg) every 6 hours as needed for pain and fever control. Please return to the emergency department if your symptoms change or worsen. Please follow with your primary care physician for further outpatient evaluation and management. Print Language: [place] Disposition Disposition: Home, Self Care Discharge Date/Time: 02/18/25 21:05
--- NOTE | 2025-02-18 17:09 | EKG12_ITS ---
Test Reason : GENERAL Blood Pressure : */* mmHG Vent. Rate : 100 BPM Atrial Rate : 100 BPM P-R Int : 154 ms QRS Dur : 78 ms QT Int : 328 ms P-R-T Axes : 44 18 26 degrees QTcB Int : 423 ms Normal sinus rhythm Normal ECG Confirmed by Mahesh Corona ([id number]), development editor ANTONIETA HOYT ([id number]) on 02/19/2025 9:18:45 AM Referred By: Confirmed By: Mahesh Corona
[2025-02-18] MEDS: 0.9% Normal Saline (1000mL) 1,000 ML 1000 ML IV (17:56)
--- NOTE | 2025-02-18 18:00 | RAD_ITS ---
PROCEDURE: CHEST PA AND LATERAL 02/18/2025 REASON FOR EXAM: COUGH TECHNIQUE: Frontal and lateral views of the chest. COMPARISON: Chest x-ray of 11/14/2023. RAD/Chest PA and Lateral IMPRESSION: A right subclavian central venous catheter with port is seen, with tip projecti ng near the expected junction of the SVC and right atrium. Lungs are hypoinflated, but appear clear of acute disease. No pleural effusion or pneumothorax is noted. The cardiomediastinal silhouette is stable, with a tortuous aorta noted. No ev idence of cardiomegaly. Generalized osteopenia and multiple vertebral body compression fractures appear similar to the prior study. No interval osseous change is seen. Reading Location: [place] [address]
[2025-02-18 18:38] LABS: ALB/GLOB Ratio 1.6 RATIO (0.9-2.4); AST(SGOT) 16 U/L (<=31); Alanine Aminotransfer ALT/SGPT 13 U/L (<=34); Albumin, Serum 4.1 g/dL (3.4-4.8); Alkaline Phosphatase 76 U/L (35-104); Anion Gap 11 (5-15); BUN 12 mg/dL (4-19); BUN/Creat Ratio 12.5 RATIO (10-20); Calcium,Total 9.5 mg/dL (7.6-11.0); Carbon Dioxide 26.4 mmol/L (21.0-32.0); Chloride 101 mmol/L (98-108); Creatinine, Serum 0.93 mg/dL (0.70-1.20); EST Glomerular Filtration Rate 70 (>60); Globulin 2.6 g/dL (2.2-4.2); Glucose 99 mg/dL (70-99); Potassium 3.8 mmol/L (3.3-5.1); Protein, Total 6.7 g/dL (5.9-8.4); Sodium Level 138 mmol/L (133-145); Total Bilirubin 0.37 mg/dL (0.00-1.30)
[2025-02-18 18:39] LABS: Lactic Acid < 1.0 mmol/L (0.0-2.0)
[2025-02-18 18:43] LABS: Absolute Lymphocyte Count 0.62 X10^3/uL (0.83-4.51); Absolute Neutrophil Count 4.8 X10^3/uL (2.0-7.7); Basophil# 0.03 X10^3/uL; Basophil% 0.5 % (0-1); Eosinophil# 0.07 X10^3/uL; Eosinophils% 1.1 % (0-5); Hematocrit 37.3 % (37-47); Hemoglobin 12.6 g/dL (12.0-15.0); Lymphocyte # 0.62 X10^3/ul (0.83-4.51); Lymphocyte % 10.1 % (19-41); Mean Corp Hgb Conc 33.8 g/dL (32-36); Mean Corpuscular Hgb 31.2 pg (27.0-32.0); Mean Corpuscular Volume 92.3 fL (81-99); Mean Platelet Vol. 9.4 fl (6.2-12.0); Monocyte# 0.65 X10^3/uL; Monocyte% 10.6 % (0-10); NRBC Flagged by Analyzer 0 % (0-5); Neutrophil # 4.76 X10^3/uL (2.7-7.7); Neutrophil % 77.4 % (47-70); Platelet Count 158 K/mm3 (150-450); RBC Distribution Width CV 13.1 % (11.6-14.6); RBC Distribution Width SD 44.6 fl (35.1-43.9); Red Blood Count 4.04 M/mm3 (4.2-5.4); White Blood Count 6.2 K/mm3 (4.4-11.0)
[2025-02-18 19:59] LABS: Bacteria 0 SEEN /hpf (None Seen); Mucous, Urine 0 SEEN /hpf (<or=2+)
[2025-02-18 20:05] LABS: Color, Urine Yellow (Yellow); Glucose, Dipstick Normal (Normal); Ketone-Dipstick Negative (Negative); Leukocyte Esterase-Dipstick Negative /ul (Negative); Nitrite-Dipstick Negative (Negative); Occult Blood-Urine Negative /ul (Negative); Protein-Dipstick 15 mg/dl (Negative); Specific Gravity, Urine 1.025 (1.002-1.030); Urine Bilirubin Dipstick Negative (Negative); Urine Clarity Clear (Clear); Urine Urobilinogen Normal (Normal)
[2025-02-18 21:10] LABS: White Blood Cells 0-5 SEEN /hpf (0-5)
[2025-02-18 21:11] LABS: Red Blood Cells-Urine 0-5 SEEN /hpf (0-5); Squamous Epithelial Cells - UA 0-5 SEEN /hpf (5-10)
== END 2025-02-18 21:05 | disposition home or self-care (01) ==
PROVIDERS: Emergency Provider Emergency Medicine; PCP Family Medicine; Visit Provider Emergency Medicine
DX: R05.9 Cough, unspecified (principal); Z92.21 Personal history of antineoplastic chemotherapy; Z87.891 Personal history of nicotine dependence; Z85.3 Personal history of malignant neoplasm of breast; Z85.53 Personal history of malignant neoplasm of renal pelvis; F41.9 Anxiety disorder, unspecified; Z79.899 Other long term (current) drug therapy; K21.9 Gastro-esophageal reflux disease without esophagitis
CPT/HCPCS: 71046; 80048; 80053; 81001; 83605; 85025; 87631; 93005; 99284; A4216

== ENCOUNTER 2025-07-13 09:50 | Emergency (ER) | payer MEDICARE, MEDICAID, SELFPAY ==
[2025-07-13 09:51] VITALS: BP 160/81; PULSE 74; RESP 16; TEMP 36.8; O2SAT 98; BMI 37.2
--- NOTE | 2025-07-13 10:11 | EKG12_ITS ---
Test Reason : Blood Pressure : */* mmHG Vent. Rate : 66 BPM Atrial Rate : 66 BPM P-R Int : 164 ms QRS Dur : 82 ms QT Int : 394 ms P-R-T Axes : 37 5 19 degrees QTcB Int : 413 ms Normal sinus rhythm Normal ECG Confirmed by SANJU WALTER, HONEY ([id number]), makeup editor LLUVIA GUERRERO ([id number]) on 07/15/2025 8:28:03 AM Referred By: Confirmed By: HONEY BILLS MD
--- NOTE | 2025-07-13 10:12 | EX.ED.DYSGE1 ---
HPI History of Present Illness Chief Complaint: Weakness Informant: patient Onset/Context/Timing Onset: Days Context: Gradual Onset Timing: Continuous Current Severity: Mild Maximum Severity: Mild Narrative Narrative: 60-year-old female with history of recurrent multiple myeloma currently undergoing chemotherapy which she gets monthly shots and then is on chemotherapy for 3 weeks on and off for a week. Prior history of pancreatitis and prior renal cell cancer. Says she just feels overall weak. Recently had a cough was on the antibiotic Zithromax recently. Denies vomiting or diarrhea. Denies melena. Denies any dysuria. No fever or chills the last several days. No abdominal or chest pain. Just she says she feels very weak and at times like she could pass out. She had recent labs that I reviewed from the [facility] earlier this week that actually looked very good. She had a very mild anemia just below normal levels. Chemistries look good. Prior similar symptoms: Yes Recent Illness/Hospitalization: No PFSH PFSH Medical History History of cancer Post-menopausal Cancer Depression Anxiety Walker as ambulation aid Anemia Back pain Injury of head and neck Gastric reflux Leg cramps 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 health care History of pneumococcal infection Headache, migraine Carpal tunnel syndrome history of bone fracture Back problem Arthritis Seasonal allergies Endometriosis Screening for intestinal cancer Iron deficiency anemia Renal cell cancer Former tobacco use Obesity Pancreatitis URI, acute History of nausea and vomiting History of abdominal pain Home Medications ?Medication ?Instructions ?Recorded ?Last Taken ?Type omeprazole 40 mg capsule,delayed 40 mg PO DAILY 01/14/25 Unknown History release benzonatate 200 mg capsule 200 mg PO TID PRN cough #20 caps 07/02/25 Unknown Rx fentanyl 50 mcg/hr transdermal 1 patch transdermal Q3D 07/02/25 Unknown History patch acyclovir 400 mg tablet 400 mg PO BID 07/05/25 Unknown History azithromycin 250 mg tablet See Rx Instructions PO QDAY 9 days 07/05/25 Unknown Rx (Zithromax) #10 tabs buspirone 7.5 mg tablet 7.5 mg PO BID 07/05/25 Unknown History escitalopram oxalate 10 mg tablet 20 mg PO DAILY 07/05/25 Unknown History fentanyl 50 mcg/hr transdermal 1 patch transdermal Q72H 07/05/25 Unknown History patch ipratropium bromide 42 mcg (0.06 2 spray intranasal TID-QID PRN 07/05/25 Unknown Rx %) nasal spray allergy symptoms #15 mL lorazepam 0.5 mg tablet 0.25 mg PO BID 07/05/25 Unknown History lorazepam 0.5 mg tablet 0.5 mg PO QDAY 07/05/25 Unknown History ondansetron HCl 8 mg tablet 4 mg PO 4X/DAY PRN nausea 07/05/25 Unknown History pomalidomide 1 mg capsule 1 mg PO QAM 07/05/25 Unknown History rizatriptan 10 mg tablet See Rx Instructions PO .COMPLEX 07/05/25 Unknown History Allergy/AdvReac Type Severity Reaction Status Date / Time latex Allergy Mild rash Verified 07/13/25 09:51 Penicillins Allergy Unknown Verified 07/13/25 09:51 adhesive tape AdvReac Rash Verified 07/13/25 09:51 Family History Brother Asthma Malignant hyperthermia due to anesthesia Hypertension Grandfather Colon cancer Mother Heart disease Thyroid disorder COPD (chronic obstructive pulmonary disease) Arthritis Anemia Sister Breast cancer Hypertension Thyroid disorder Hypothyroid Arthritis Father Bleeding disorder Cancer Lung Myelodysplastic syndrome Chronic lymphocytic leukemia Alcohol abuse Aunt Myocardial infarction Surgical History History of esophagogastroduodenoscopy (EGD) History of back surgery s/p kidney cancer Status post endometrial ablation Social History household members: children Smoking Status: Former smoker alcohol intake: current alcohol intake frequency: holidays/special occasions only what type of physical activity do you participate in: walking, bicycling, aerobics and weight training do you feel safe at home: Yes ROS ROS ED ROS Narrative Generalized weakness. Near syncope. Constitutional Constitutional ED: Denies chills or fever(s) Eyes Eyes: Denies blurry vision ENT ENT ED: Denies ear pain Cardiovascular Cardiovascular: Denies chest pain or palpitations Respiratory/Chest Respiratory/Chest: Denies cough or dyspnea Gastrointestinal Gastrointestinal: Denies abdominal pain, constipation, diarrhea, melena, nausea or vomiting Genitourinary Genitourinary ED: Denies dysuria or hematuria Musculoskeletal Musculoskeletal: Denies arthralgias Integumentary Denies abscess Neurologic Neurologic: Denies headache(s) Psychiatric Psychiatric: Denies anxiety Endocrine Endocrinology: Denies cold intolerance Hematologic/Lymphatic Hematologic/Lymphatic: Reports none Allergic/Immunologic Allergic/Immunologic ED: Denies mouth swelling, tongue swelling or urticaria EXAM Physical Exam Narrative Exam Narrative: Well-appearing 60-year-old female. Vital signs stable afebrile. Pulse ox 98% on room air. No signs of hypoxia. She does not look septic or toxic. She does not look significantly dehydrated. HEENT exam moist weeks membranes posterior pharynx unremarkable TMs normal. Normal speech. Neck nontender no lymphadenopathy. Lungs clear to auscultation bilaterally. Heart regular rhythm no murmur rate about 75. Chest wall and ribs nontender. Abdomen soft nontender. Back nontender. Moving all 4 extremities. Normal strength. Normal range of motion. Nontender no edema. Neurologically she is awake alert. Answering questions following commands. No focal motor deficits. Very benign exam. Const Vital Signs: 07/13/25 09:51 Temperature 98.3 F Temperature Source Oral Pulse Rate 74 Respiratory Rate 16 Blood Pressure 160/81 H Blood Pressure Mean 107 Pulse Ox 98 Oxygen Delivery Method Room Air Positive well nourished and well developed; Negative for cachectic, contractures or unkempt General Appearance ED: well developed and NAD; Negative for unkempt, cachectic, contractures, cyanotic, diaphoretic or pallor Nutritional Appearance: Negative for cachectic HEENT Reports moist mucous membranes Eyes PERRL and EOMs intact bilaterally Neck no lymphadenopathy, supple and no JVD Chest Wall inspection of chest normal and palpation of chest normal Resp clear to auscultation bilaterally Cardio regular rate, regular rhythm, S1 normal heart sound, S2 normal heart sound and no murmurs GI normal to inspection, nondistended, normoactive bowel sounds, non-tender, non-distended and no masses Auscultation: normoactive bowel sounds Palpation: soft and tender Back/Spine no CVA tenderness General Back: Negative for CVA tenderness Cervical Spine: Negative for cervical spine tenderness Thoracic Spine / Upper Back: Negative for thoracic spinal tenderness or paraspinal muscle tenderness Lumbar Spine / Lower Back: Negative for lumbar spinal tenderness Extremity normal to inspection General Extremety ED: Negative for edema or tenderness General Extremity: Negative for edema Neuro oriented x3 and CN's II-XII intact bilaterally Sensorium / Orientation: alert; Negative for orientation impaired, lethargic or stuporous Motor Exam: strength 5/5 throughout Psych mental status grossly normal Appearance: Negative for unkempt Skin no rashes or lesions noted, no wounds and skin turgor normal General Skin Exam: elasticity normal; Negative for jaundice or pallor Lesions: No lesion noted Rashes: No rashes noted Trauma: Negative for abrasion Wounds: Negative for wounds noted MDM MDM MDM Narrative Medical decision making narrative: 60-year-old female undergoing chemotherapy for multiple myeloma. Plan generalized weakness and near syncope. Exam is benign and unremarkable. Screening labs will be obtained with an EKG and chest x-ray. She is having no urinary symptoms I do not think she needs a UA. I do not think she needs any advanced imaging besides a chest x-ray. Patient did request will be given a liter of normal saline. Repeat exam patient doing well at 11:24 AM. We discussed her test results are basic unremarkable she is a chronic anemia. She is comfortable being discharged home with outpatient follow-up with either her primary care provider or her oncologist. Patient is comfortable to plan. History & Record Review Discussion w/independent historian: Patient and Friend Additional record(s) reviewed:: Prior inpatient record, Prior outpatient record, Prior ED visit and Prior labs Lab Data Attestation: I reviewed the patient's lab results. Lab results narrative: CBC shows a white count of 5 H&H 11.1 and 33.8 which is her baseline mild anemia. Platelet count 119. BMP unremarkable. Gap 9. Normal BUN and creatinine. Glucose 83. Labs: Laboratory Results - last 24 hr 07/13/25 10:40 WBC 5.9 RBC 3.61 L Hgb 11.1 L Hct 33.8 L MCV 93.6 MCH 30.7 MCHC 32.8 RDW Std Deviation 41.7 RDW Coeff of Marcia 12.1 Plt Count 119 L MPV 9.1 Immature Gran % (Auto) 0.300 Neut % (Auto) 56.0 Lymph % (Auto) 18.8 L [place] % (Auto) 20.0 H Eos % (Auto) 4.1 Baso % (Auto) 0.8 Absolute Neuts (auto) 3.3 Absolute Lymphs (auto) 1.11 Nucleated RBC % 0 Sodium 138 Potassium 4.1 Chloride 104 Carbon Dioxide 25.8 Anion Gap 9 BUN 18 Creatinine 0.83 Estim Creat Clear Calc 72.39 Est GFR (MDRD) Non-Af 81 BUN/Creatinine Ratio 21.5 H Glucose 83 Calcium 8.8 Radiography Chest X-Ray - ED: 2 View, Read by ED Physician, Read by Radiologist, Heart, Lungs, Mediastinum, Bony Structures, No Acute Disease and Chronic Changes Diagnostic Testing: Clinical Impression(s) from Imaging Studies Chest X-Ray 07/13/25 10:55 IMPRESSION: No acute cardiopulmonary process. No significant interval change. Stable cardiomegaly. Reading Location: [facility] Chest x-ray, 2 views, AP and lateral, interpreted by myself and the radiologist. She has normal cardiac silhouette. Normal lung mccord. Chronic changes. No pneumonia. No effusions. Rhythm Strip Rhythm Strip: Sinus Rhythm Rate: 66 Ectopy: None EKG Initial EKG: Attestation: I personally reviewed and interpreted this EKG as follows: Interpretation: Sinus Rhythm and No Acute Injury Pattern Comments: Normal sinus rhythm rate of 66 no acute signs of MT nor ischemia nor dysrhythmia. Discharge Plan Triage Chief Complaint: Weakness ED Provider: Surjit Santizo Dx/Rx/DC Orders Clinical Impression: Generalized weakness, History of multiple myeloma, Personal history of chemotherapy Instructions: ED Weakness Uncertain Cause Prescriptions: No Action fentanyl 50 mcg/hr patch 72 hour 1 patch transdermal Q3D benzonatate 200 mg capsule 200 mg PO TID PRN (Reason: cough) Qty: 20 0RF fentanyl 50 mcg/hr patch 72 hour 1 patch transdermal Q72H rizatriptan 10 mg tablet See Rx Instructions PO .COMPLEX Rx Instructions: take 1 tab at onset of headache; if no relief may repeat 1 tab after at least 2 hrs; max = 3 tabs/24 hr PO acyclovir 400 mg tablet 400 mg PO BID lorazepam 0.5 mg tablet 0.5 mg PO QDAY lorazepam 0.5 mg tablet 0.25 mg PO BID buspirone 7.5 mg tablet 7.5 mg PO BID pomalidomide 1 mg capsule 1 mg PO QAM Patient Comments: 21 days with 7 day break azithromycin [Zithromax] 250 mg tablet See Rx Instructions PO QDAY 9 Days Qty: 10 0RF Rx Instructions: On day 1 take 2 tablets, then 1 tablet daily afterward ipratropium bromide 42 mcg (0.06 %) spray,non-aerosol 2 spray intranasal TID-QID PRN (Reason: allergy symptoms) Qty: 15 0RF Rx Instructions: administer into each nostril omeprazole 40 mg capsule,delayed release(DR/EC) 40 mg PO DAILY escitalopram oxalate 10 mg tablet 20 mg PO DAILY ondansetron HCl 8 mg tablet 4 mg PO 4X/DAY PRN Primary Care Provider: Ysabel Monsalve Referrals: Curtis Styles DO [Med Staff - Active Staff, Oncology] - Keep Fili appointment Shira Llanes PA-C [Non-Staff, Medical] Activity Restrictions/Additional Instructions: Follow-up with your doctors. Your labs, EKG and chest x-ray all look good today. Print Language: Vietnamese Disposition Disposition: Home, Self Care
--- OUTSIDE RECORDS SUMMARY | 2025-07-13 10:42 | XMS RPT_ITS | CCD ---
Author Organization [facility] Care Team Providers Care Glue Drier Operator Name Role Phone Cj HARTLEY, Nate Jacobson Unavailable TIERA MILES Referring Unavailable SANDRA ARCE Primary Care Unavailable JOSE TREVIÑO Attending Unavailable Pia Gambino MD Primary Care Provider Zakiya Han RN Unavailable Zakiya Han RN Unavailable Pia Gambino MD Primary Care Provider [phone] Zakiya Han RN Unavailable Dr. Pia Gambino Primary Care Provider [phone] Dr. Pia Gambino Referring Provider [phone] MARION Manley Attending Provider Dr. Erickson Campos Attending Provider MARION Almonte Attending Provider Unavailab Dr. Pia Alvarado Attending Provider [phone] Dr. Pia Gambino Primary Care Provider Dr. Pia Gambino Referring Provider [phone] MARION Almonte Attending Provider Unavailab Dr. Pia Alvarado Attending Provider [phone] Pia Gambino MD Primary Care Provider Zakiya Han RN Unavailable Dayana Stewart MD Unavailable Ungerer Ysabel MOJICA Primary Care Provider Ungerer DEVELOPMENT COACH, Ysabel D Primary Care Provider Maki WALTER, Pia Porras Primary Care Provider Piedad WALTER, Ajit Metzger Unavailable [facility] Unavailable Piedad WALTER, Ajit Metzger Unavailable Guille SMALL, Zakiya Unavailable Ivana WALTER, Bairon Unavailable Ungerer DEVELOPMENT COACH, Ysabel D Primary Care Provider Maki WALTER, Pia Porras Primary Care Provider Dayana Stewart MD Unavailable Ungerer DEVELOPMENT COACH, Ysabel D Primary Care Provider Jadon Styles DO Unavailable Tiera Miles) Unavailable Tiera Miles Unavailable UNGERER, YSABEL QUALITY ASSURANCE COACH Attending Unavailable UNGERER, YSABEL QUALITY ASSURANCE COACH Primary Care Unavailable UNGERER, YSABEL QUALITY ASSURANCE COACH Admitting Unavailable Tiera Miles MD Unavailable ALLYSONSLIM GARDNER CNP Consulting Unavailable ALLYSONSLIM GARDNER CNP Attending Unavailable SLIM VALADEZ CNP Admitting Unavailable ALLYSONSLIM GARDNER CNP Primary Care Unavailable PROVIDER, UNKNOWN Consulting Unavailable PROVIDER, UNKNOWN Consulting Unavailable ALLYSONSLIM GARDNER CNP Consulting Unavailable ALLYSONSLIM GARDNER CNP Attending Unavailable ALLYSONSLIM GARDNER DEVELOPMENT COACH Admitting Unavailable ALLYSONSLIM CNP Primary Care Unavailable PROVIDER, UNKNOWN Consulting Unavailable PROVIDER, UNKNOWN Consulting Unavailable UNGERER, YSABEL QUALITY ASSURANCE COACH Admitting Unavailable UNGERER, YSABEL QUALITY ASSURANCE COACH Primary Care Unavailable UNGERER, YSABEL QUALITY ASSURANCE COACH Consulting Unavailable UNGERER, YSABEL QUALITY ASSURANCE COACH Attending Unavailable PROVIDER, UNKNOWN Consulting Unavailable ALLYSONSLIM GARDNER CNP Consulting Unavailable ALLYSONSLIM GARDNER CNP Attending Unavailable ALLYSONSLIM GARDNER CNP Admitting Unavailable ALLYSONSLIM GARDNER CNP Primary Care Unavailable PROVIDER, UNKNOWN Consulting Unavailable PROVIDER, UNKNOWN Consulting Unavailable Heather Cuevas RN Unavailable Unavailable Allyson HUMANITIES DEPARTMENT CHAIR.DEVELOPMENT COACH, Slim D Unavailable Ungerer QUALITY ASSURANCE COACH-C, QUALITY ASSURANCE COACHCatherine Grady Primary Care Provider Ginger WALTER, Dr. Geller Attending Provider Ginger WALTER, Dr. Geller Referring Provider Sukhdev WALTER, Dr. Eddy Emergency Provider Care Physician, No Primary Primary Care Provider Unavailable de Juliocesar MAYORGA, Dr. Levi Admit Provider Unavail able Watkins DO, Dr. Levi Attending Provider Unav ailable Watkins DO, Dr. Levi Other Provider Unavail able Irineo Washington Attending Provider de Juliocesar MAYORGA, Dr. Levi Other Provider Unavail able Mark WALTER, Dr. Coombs Attending Provider Mark WALTER, Dr. Coombs Other Provider de Juliocesar MAYORGA, Dr. Levi Attending Provider Unav ailable Mark WALTER, Dr. Coombs Referring Provider Edgar MAYORGA, Dr. Houston Attending Provider Dr. Erickson Campos MD Attending Provider de Juliocesar MAYORGA, Dr. Levi Referring Provider Unav ailable Care Physician, No Primary Referring Provider Un available Cyndi Davalos Attending Provider Cyndi Davalos Referring Provider Mario Alberto SCHULTZ-CElvi Primary Care Provider Mraio Alberto NURCElvi Referring Provider Edgar MAYORGA, Dr. Houston Other Provider Mario Alberto SCHULTZ-C, Elvi Hanson Primary Care Provider Dr. Melissa Silvestre DO Emergency Provider Dr. Tiera Miles MD Attending Provider Dr. Tiera Miles MD Referring Provider Dr. Melissa Silvestre DO Attending Provider Dr. Kingsley Kunz DO Emergency Provider Shade Huber Attending Provider MASCGail, JADON A Referring Unavailable UNGERER, YSABEL D Primary Care Unavailable MASCI, JADON A Referring Unavailable UNGERER, YSABEL D Primary Care Unavailable MASCI, JADON A Referring Unavailable LAFITTE, ELVI D Primary Care Unavailable MASCI, JADON A Referring Unavailable LAFITTE, ELVI D Primary Care Unavailable SANDRA BRADLEY B Admitting Unavailable ADELOF SANDRA B Attending Unavailable UNGERER, YSABEL D Primary Care Unavailable Care Physician, No Primary Primary Care Provider Unavailable Ginger WALTER, Dr. Geller Attending Provider [phone] Ginger WALTER, Dr. Geller Referring Provider Dr. Celso Hernández DO Attending Provider Dr. Kingsley Kunz DO Attending Provider [place] NAEEM, Elvi D Primary Care Provider [phone] LAFITTE, ELVI D Primary Care Unavailable MASCI, JADON A Referring Unavailable LAFITTE, ELVI D Primary Care Unavailable LAFITTE, ELVI D Primary Care Unavailable LAFITTE, ELVI D Primary Care Unavailable LAFITTE, ELVI D Primary Care Unavailable LAFITTE, ELVI D Primary Care [facility] Primary Care Unavailable MASCI, JADON A Referring Unavailable LAFITTE, ELVI D Primary Care Unavailable LAFITTE, ELVI D Primary Care Unavailable LAFITTE, ELVI D Primary Care Unavailable LAFITTE, ELVI D Primary Care Unavailable MASCI, JADON A Referring Unavailable LAFITTE, ELVI D Primary Care Unavailable MASCI, JADON A Referring Unavailable LAFITTE, ELVI D Primary Care Unavailable LAFITTE, ELVI D Primary Care Unavailable LAFITTE, ELVI D Primary Care Unavailable LAFITTE, ELVI D Primary Care Unavailable MASCI, JADON A Referring Unavailable LAFITTE, ELVI D Primary Care Unavailable MASCI, JADON A Attending Unavailable MASCI, JADON A Referring Unavailable MASCI, JADON A Referring Unavailable LAFITTE, ELVI D Primary Care Unavailable LAFITTE, ELVI D Primary Care Unavailable MASCI, JADON A Referring Unavailable UNGERER, YSABEL D Primary Care Unavailable UNGERER, YSABEL D Primary Care Unavailable MASCI, JADON A Referring Unavailable LAFITTE, ELVI D Primary Care Unavailable UNGERER, YSABEL D Primary Care Unavailable MASCI, JADON Jacobson Referring Unavailable UNGERER, YSABEL D Primary Care Unavailable PELLE, ANITA Referring Unavailable UNGERER, YSABEL D Primary Care Unavailable PELLE, ANITA Referring Unavailable UNGERER, YSABEL D Primary Care Unavailable PELLE, ANITA Referring Unavailable PELLE, ANITA Attending Unavailable UNGERER, YSABEL D Primary Care Unavailable MASCI, JADON Jacobson Referring Unavailable UNGERER, YSABEL D Primary Care Unavailable MASCI, JADON Jacobson Referring Unavailable UNGERER, YSABEL D Primary Care Unavailable MASCI, JADON Jacobson Referring Unavailable UNGERER, YSABEL Valentin Primary Care Unavailable MELISSA CUNNINGHAM Attending Unavailable UNGERER, YSABEL Hanson Primary Care Unavailable MELISSA [place] Attending Unavailable UNGERER, YSABEL Valentin Primary Care Unavailable [facility] YS[facility]EL D Primary Care Unavailable [facility] Primary Care Unavailable MASCI, JADON Jacobson Referring Unavailable [facility] Primary Care Unavailable [facility] Primary Care Unavailable MASCI, JADON Jacobson Referring Unavailable [facility] Primary Care Unavailable MASCI, JADON Jacobson Referring Unavailable SABA ROA Attending Unavailable [facility] Primary Care Unavailable MASCI, JADON Jacobson Referring Unavailable [facility] Primary Care Unavailable MASCI, JADON A Referring Unavailable EZRA, SABA Attending Unavailable [facility] Primary Care Unavailable MASCI, JADON Jacobson Referring Unavailable MASCI, JADON Jacobson Attending Unavailable [facility] MooreYSABEL Valentin Primary Care Unavailable MASCI, JADON Jacobson Referring Unavailable UNGERER, YSABEL D Primary Care Unavailable MASCI, JADON Jacobson Referring Unavailable UNGERER, YSABEL D Primary Care Unavailable MASCI, JADON Jacobson Referring Unavailable UNGERER, YSABEL D Primary Care Unavailable MASCI, JADON Jacobson Referring Unavailable UNGERER, YSABEL D Primary Care Unavailable MASCI, JADON Jacobson Referring Unavailable UNGERER, YSAEBL D Primary Care Unavailable MASCI, JADON Jacobson Referring Unavailable UNGERER, YSABEL D Primary Care Unavailable MASCI, JADON Jacobson Referring Unavailable UNGERER, YSABEL D Primary Care Unavailable MASCI, JADON Jacobson Referring Unavailable UNGERER, YSABEL D Primary Care Unavailable MASCI, JADON Jacobson Referring Unavailable UNGERER, YSABEL D Primary Care Unavailable [facility] D Primary Care Unavailable SMILEY, SHAY Attending Unavailable YSABEL ESTEBAN Primary Care Unavailable MASCGail, JADON Jacobson Referring Unavailable [facility] Valentin Primary Care Unavailable LAFITTE, ELVI D Primary Care Unavailable LAFITTE, ELVI D Primary Care Unavailable LAFITTE, ELVI D Primary Care Unavailable LAFITTE, ELVI D Primary Care Unavailable L[facility]ITTE, ELVI D Primary Care Unavailable [facility] Primary Care Unavailable MASCI, JADON Jacobson Referring Unavailable LAFITTE, ELVI D Primary Care Unavailable MASCI, JADON Jacobson Attending Unavailable LAFITTE, ELVI D Primary Care Unavailable MASCI, JADON Jacobson Referring Unavailable LAFITTE, ELVI D Primary Care Unavailable [facility] Primary Care Unavailable MASCI, JADON Jacobson Referring Unavailable LAFITTE, ELVI D Primary Care Unavailable LAFITTE, ELVI D Primary Care Unavailable MASCI, JADON Jacobson Referring Unavailable LAFITTE, ELVI D Primary Care Unavailable MASCI, JADON Jacobson Referring Unavailable LAFITTE, ELVI D Primary Care Unavailable MASCI, JADON Jacobson Referring Unavailable [place], [place] D Primary Care Unavailable [facility] Primary Care Unavailable MASCI, JADON Jacobson Referring Unavailable LAFITTE, ELVI D Primary Care Unavailable LAFITTE, ELVI D Primary Care Unavailable MASCI, JADON Jacobson Attending Unavailable MASCI, JADON Jacobson Referring Unavailable [facility] Primary Care Unavailable MASCI, JADON Jacobson Referring Unavailable SHAY SMILEY Referring Unavailable [facility] YSABEL Valentin Primary Care Unavailable LAFITTE, ELVI D Primary Care Unavailable LAFITTE, ELVI D Primary Care Unavailable LAFITTE, ELVI D Primary Care Unavailable LAFITTE, ELVI D Primary Care Unavailable MASCI, JADON Jacobson Referring Unavailable LAFITTE, ELVI D Primary Care Unavailable MASCI, JADON Jacobson Referring Unavailable LAFITTE, ELVI D Primary Care Unavailable SABA ROA Attending Unavailable LAFITTE, ELVI D Primary Care Unavailable MASCI, JADON Jacobson Referring Unavailable LAFITTE, ELVI D Primary Care Unavailable LAFITTE, ELVI D Primary Care Unavailable LAFITTE, ELVI D Primary Care Unavailable MASCI, JADON Jacobson Referring Unavailable LAFITTE, ELVI D Primary Care Unavailable MASCI, JADON Jacobson Referring Unavailable LAFITTE, ELVI D Primary Care Unavailable LAFITTE, ELVI D Primary Care Unavailable LAFITTE, ELVI D Primary Care Unavailable MASCI, JADON Jacobson Referring Unavailable [facility] D Primary Care Unavailable MASCI, JADON Jacobson Attending Unavailable MASCI, JADON Jacobson Referring Unavailable [facility] Primary Care Unavailable MASCI, JADON Jacobson Referring Unavailable UNGERER, YSABEL D Primary Care Unavailable MASCI, JADON Jacobson Referring Unavailable UNGERER, YSABEL D Primary Care Unavailable UNGERER, YSABEL D Primary Care Unavailable MASCI, JADON Jacobson Referring Unavailable UNGERER, YSABEL D Primary Care Unavailable MASCI, JADON Jacobson Referring Unavailable MASCI, JADON Jacobson Referring Unavailable UNGERER, YSABEL D Primary Care Unavailable [facility] Primary Care Unavailable [facility] Primary Care Unavailable [facility] Primary Care Unavailable [facility] Primary Care Unavailable MASCI, JADON Jacobson Referring Unavailable [facility] Primary Care Unavailable MASCI, JADON Jacobson Referring Unavailable [facility] Primary Care Unavailable MASCI, JADON Jacobson Referring Unavailable [facility] Primary Care Unavailable [facility] Primary Care Unavailable SABA ROA Attending Unavailable MASCI, JADON Jacobson Referring Unavailable [facility] Primary Care Unavailable [facility] Primary Care Unavailable GAEL PRIEST Attending Unavailable UNGERER, YSABEL Valentin Primary Care Unavailable [facility], JADON Jacobson Attending Unavailable UNGERETeresa, YSABEL Valentin Primary Care Unavailable [facility] Primary Care Unavailable [place] Elvi HARTLEY Primary Care Physician [place] Elvi HARTLEY Referring Provider [phone] Shade Huber Attending Physician Ysabel Matthews Attending Physician Gurmeet Watkins Consulting Unavailable Gurmeet Watkins Admitting Unavailable Corin Flores Attending Unavailable Care Physician, No Primary Primary Care Unava ilable Corin Flores Consulting Unavailable Ysabel Esteban Attending Unavailable [place] Elvi SCHULTZ Primary Care Unavailable [place] Elvi SCHULTZ Referring Unavailable [place] MARION Elvi Primary Care Unavailable [place] Elvi SCHULTZ Referring Unavailable Shade uHber Attending Unavailable Gurmeet Watkins Referring Unavailable Care Physician, No Primary Primary Care Unava ilable Erickson Campos Attending Unavailable Gurmeet Watkins Attending Unavailable Tiera Miles Referring Unavailable Tiera Miles Attending Unavailable Care Physician, No Primary Primary Care Unava ilable Ginger, Tiera Attending Unavailable [facility], Elvi Primary Care Unavailable Ginger, Tiera Referring Unavailable Ginger, Tiera Referring Unavailable [facility], Elvi Primary Care Unavailable Ginger, Tiera Attending Unavailable Friend, Celso Consulting Unavailable Friend, Celso Attending Unavailable [facility], Elvi Primary Care Unavailable [facility], Elvi Referring Unavailable Friend, Celso Attending Unavailable Corin Flores Referring Unavailable [facility], Elvi Referring Unavailable Shade Huber Attending Unavailable [facility], Elvi Primary Care Unavailable Ysabel Esteban Attending Unavailable [facility], Elvi Primary Care Unavailable [facility], Elvi Referring Unavailable Cyndi Mason Attending Unavailable Care Physician, No Primary Primary Care Unava ilable Care Physician, No Primary Referring Unava ilable Melissa Silvestre Attending Unavailable [facility], Elvi Primary Care Unavailable Kingsley Kunz Attending Unavailable [facility], Elvi Primary Care Unavailable Ginger, Tiera Referring Unavailable Ginger, Tiera Attending Unavailable Care Physician, No Primary Primary Care Unava ilable Ginger, Tiera Referring Unavailable Ginger, Tiera Attending Unavailable Care Physician, No Primary Primary Care Unava ilable Ginger, Tiera Referring Unavailable [facility], Elvi Primary Care Unavailable Ginger, Tiera Attending Unavailable Ysabel Esteban Primary Care Unavailable Ginger, Tiera Referring Unavailable Ginger, Tiera Attending Unavailable [facility], Elvi Primary Care Unavailable Ginger, Tiera Referring Unavailable Ginger, Tiera Attending Unavailable [facility], Elvi Primary Care Unavailable Ginger, Tiera Referring Unavailable Ginger, Tiera Attending Unavailable Care Physician, No Primary Primary Care Unava ilable Ginger, Tiera Referring Unavailable Ginger, Tiera Attending Unavailable Cyndi Mason Attending Unavailable Cyndi Mason Referring Unavailable Care Physician, No Primary Primary Care Unava ilable Care Physician, No Primary Primary Care Unava ilable Ginger, Tiera Referring Unavailable Ginger, Tiera Attending Unavailable Care Physician, No Primary Primary Care Unava ilable Gurmeet Watkins Admitting Unavailable Gurmeet Watkins Consulting Unavailable Corin Flores Attending Unavailable Ginger, Tiera Referring Unavailable Ginger, Tiera Attending Unavailable Care Physician, No Primary Primary Care Unava ilable Ginger, Tiera Referring Unavailable [facility], Elvi Primary Care Unavailable Tiera Miles Attending Unavailable Tiera Miles Referring Unavailable [facility], Elvi Primary Care Unavailable Tiera Miles Attending Unavailable [facility], Elvi Primary Care Unavailable Tiera Miles Referring Unavailable Tiera Miles Attending Unavailable Celso Hernández Attending Unavailable [facility], Elvi Primary Care Unavailable [facility], Elvi Referring Unavailable Care Physician, No Primary Primary Care Unava ilable Tiera Miles Referring Unavailable Tiera Miles Attending Unavailable Care Physician, No Primary Primary Care Unava ilable Tiera Miles Referring Unavailable Tiera Miles Attending Unavailable Allergies Allergy Classification Reported Allergen(s) Allergy Type Date of Onset Reaction(s) Facility Acetaminophen / HYDROcodone (1 source) Acetaminophen / HYDROcodone Drug Allergy 2 [facility] Adhesive Tape (1 source) Adhesive Tape Substance Allergy 9 [facility] Latex (1 source) Latex Substance Allergy 0 [facility] Penicillins (antibiotic) (1 source) Penicillins Drug Allergy 2 [facility] (20 sources) Acetaminophen / HYDROcodone; Translations: [HYDROCODONE-ACET AMINOPHEN] Drug Allergy 2 [facility] Work Phone: (20 sources) Adhesive Tape; Translations: [ADHESIVE TAPE (ROSINS)] Allergy to substance 9 [facility] (20 sources) Latex; Translations: [LATEX] Drug Allergy 0 [facility] (19 sources) Penicillins; Translations: [PENICILLINS] Drug Allergy 2 [facility] (20 sources) Penicillins Drug Allergy 2 [facility] (20 sources) Adhesive Tape; Translations: [adhesive tape] Propensity to adverse reactions 2 [facility] (20 sources) Penicillins Allergy to substance 2 Unknown [facility] (20 sources) Penicillins Drug Allergy 2 [facility] (1 source) Latex Drug allergy (disorder) 5 [facility] Repository (1 source) Penicillins Drug allergy (disorder) 5 [facility] Repository Medications Current Medications Medication Drug Class(es) Dates Sig (Normalized) Sig (Original) acyclovir 400 mg oral tablet (20 sources) Herpesvirus Nucleoside Analog DNA Polymerase Inhibitor, Herpes Simplex Virus Nucleoside Analog DNA Polymerase Inhibitor, Herpes Zoster Virus Nucleoside Analog DNA Polymerase Inhibitor Start: 07-05-2025 take 1 tablet by mouth twice daily Acyclovir 400 mg tablet Active 400 mg PO TWICE A DAY July 05, 2025 12:00am Complies with drug therapy Start: 07-05-2025 take 1 tablet by mikki th twice daily Acyclovir 400 mg tablet Active 400 mg PO TWICE A DAY July 05, 2025 12:00am Complies with drug therapy Start: 01-11-2025 take 1 tablet by mikki th twice daily acyclovir (ZOVIRAX) 400 mg tablet Take 1 tablet by mouth two times a day. 180 tablet 3 01/11/2025 Active Start: 08-22-2023 End: 03-22-2024 acyclovir (ZOVIRAX) 5 % crea Apply to affected area five times a day. 15 g 2 08/22/2023 03/22/2024 Discontinued (Duplicate Entry) Start: 08-22-2023 End: 03-22-2024 acyclovir (ZOVIRAX) 5 % oint ment Apply to affected area five times a day. 15 g 2 08/22/2023 03/22/2024 Discontinued Start: 07-26-2022 End: 12-18-2024 Acyclovir 400 mg tablet Disc ontinued 400 mg PO July 26, 2022 12:00am December 18, 2024 8:49pm Start: 12-23-2021 End: 06-22-2024 take 1 tablet by mouth every other day acyclovir (ZOVIRAX) 400 mg tablet Take 1 tablet by mouth every other day. 12/23/2021 06/22/2024 Discontinued Start: 12-23-2021 take 1 tablet by mikki th once daily acyclovir (ZOVIRAX) 400 mg tablet Take 1 tablet by mouth once daily. 0 12/23/2021 Active Start: 12-23-2021 acyclovir (ZOV IRAX) 400 mg tablet 1 tablet twice daily. 0 12/23/2021 Active Start: 08-08-2020 End: 12-14-2021 take 1 tablet by mouth twice daily Acyclovir 400 MG tablet Discontinued 400 mg PO TWICE A DAY August 08, 2020 12:00am December 14, 2021 2:41pm Comment on above: 1 tablet twice daily . 1 tablet once daily. Take 1 tablet by mikki th once daily. Take 1 tablet by mikki th every other day. Apply to affected ar ea five times a day. [id number] 200 actuat albuterol 0.09 mg/actuat metered dose inhaler (20 sources) beta2-Adrenergic Agonist Start: 01-28-2025 take 2 puff(s) by inhalation every four hours as needed for wheezing albuterol HFA (PROVENTIL HFA, VENTOLIN HFA) 90 mcg/actuation inhaler Inhale 2 puffs as instructed every 4 hours as needed for wheezing/shortness of breath. 1 each 2 01/28/2025 Active Start: 04-28-2023 End: 12-18-2024 Albuterol Sulfate 90 mcg/act uation HFA aerosol inhaler Discontinued 2 NMA INHALATION EVERY 6 HOURS as needed for shortness of breath or wheezing 6.7 0 April 28, 2023 12:00am December 18, 2024 8:49pm azithromycin 250 mg oral tablet (20 sources) Macrolide Antimicrobial Start: 07-05-2025 Azithromycin (Zithromax) 250 mg tablet Active 0 PO daily 10 9 July 05, 2025 12:00am July 13, 2025 12:00am On day 1 take 2 tablets, then 1 tablet daily afterward Complies with drug therapy Start: 07-05-2025 Azithromycin ( Zithromax) 250 mg tablet Active 0 PO daily 10 9 July 05, 2025 12:00am July 13, 2025 12:00am On day 1 take 2 tablets, then 1 tablet daily afterward Complies with drug therapy Start: 05-31-2023 End: 08-19-2023 Azithromycin 250 mg tablet Discontinued 250 mg PO daily 12 May 31, 2023 12:00am August 19, 2023 12:30pm 2 tablets today, then 1 tablet daily on days 2 through 11 Start: 04-28-2023 End: 08-19-2023 take 2-5 tablets by mouth once daily Azithromycin 250 mg tablet Discontinued 0 PO .COMPLEX 6 0 April 28, 2023 12:00am August 19, 2023 12:30pm take 500 mg today (day 1), then 250 mg for 4 days (days 2-5) PO benzonatate 200 mg oral capsule (20 sources) Non-narcotic Antitussive Start: 07-02-2025 take 1 capsule by mouth three times daily as needed for cough Benzonatate 200 mg capsule Active 200 mg PO THREE TIMES A DAY as needed for cough 20 0 July 02, 2025 12:00am Complies with drug therapy Start: 02-18-2025 End: 07-05-2025 take 1 capsule by mouth three times daily as needed for cough Benzonatate 100 mg capsule Discontinued 100 mg PO THREE TIMES A DAY as needed for cough 20 0 February 18, 2025 12:00am July 05, 2025 3:07pm Start: 11-14-2023 End: 12-18-2024 take 1 capsule by mouth three times daily as needed for cough Benzonatate 200 mg capsule Discontinued 200 mg PO THREE TIMES A DAY as needed for cough 14 0 November 14, 2023 1:00am December 18, 2024 11:07pm Start: 05-31-2023 End: 08-19-2023 take 1 capsule by mouth three times daily as needed for cough Benzonatate 200 mg capsule Discontinued 200 mg PO THREE TIMES A DAY as needed for cough 30 0 May 31, 2023 12:00am August 19, 2023 12:30pm Start: 04-28-2023 End: 08-19-2023 take 2 capsules by mouth three times daily as needed for cough Benzonatate 100 mg capsule Discontinued 200 mg PO THREE TIMES A DAY as needed for cough 30 0 April 28, 2023 12:00am August 19, 2023 12:30pm busPIRone hydrochloride 7.5 mg oral tablet (20 sources) Start: 07-05-2025 take 1 tablet by mouth twice daily Buspirone 7.5 mg tablet Active 7.5 mg PO TWICE A DAY July 05, 2025 12:00am Complies with drug therapy Start: 07-05-2025 take 1 tablet by mikki th twice daily Buspirone 7.5 mg tablet Active 7.5 mg PO TWICE A DAY July 05, 2025 12:00am Complies with drug therapy Start: 12-18-2024 End: 12-23-2024 take 1 tablet by mouth three times daily Buspirone 7.5 mg tablet Discontinued 7.5 mg PO 3 times daily December 18, 2024 12:00am December 23, 2024 11:41am End: 01-11-2025 take 1 tablet by mouth twice daily busPIRone (BUSPAR) 7.5 mg tablet Take 7.5 mg by mouth two times a day. Active cholecalciferol, vitamin D3, (VITAMIN D3 PO) (1 source) take 1 tablet by mouth once daily cholecalciferol, vitamin D3, (VITAMIN D3 PO) Take 1 tablet by mouth once daily. Active escitalopram 10 mg oral tablet (20 sources) Serotonin Reuptake Inhibitor Start: take 2 tablets by mouth once daily Escitalopram Oxalate 10 mg tablet Active 20 mg PO DAILY July 05, 2025 3:05pm Complies with drug therapy Start: 07-05-2025 take 2 tablets by mo uth once daily Escitalopram Oxalate 10 mg tablet Active 20 mg PO DAILY July 05, 2025 3:05pm Complies with drug therapy Start: 12-26-2024 End: 07-05-2025 take 1 tablet by mouth once daily Escitalopram Oxalate 10 mg tablet Discontinued 10 mg PO DAILY January 14, 2025 12:00am July 05, 2025 3:14pm Start: 12-26-2024 take 2 tablets by mo uth once daily at bedtime escitalopram oxalate (LEXAPRO) 10 mg tablet Take 20 mg by mouth daily at bedtime. 12/26/2024 Active Start: 07-26-2022 End: 12-23-2024 take 2 tablets by mouth once daily Escitalopram Oxalate 10 mg tablet Discontinued 20 mg PO DAILY July 26, 2022 9:13am December 23, 2024 11:41am Start: 07-26-2022 take 20 mg by mouth once daily Escitalopram Oxalate Active 20 MG PO DAILY July 26, 2022 8:13am Start: 01-01-2022 End: 07-26-2022 take 1 tablet by mouth once daily Escitalopram Oxalate 10 mg tablet Discontinued 10 mg PO DAILY January 01, 2022 12:00am July 26, 2022 9:14am End: 03-22-2024 take 10 mg by mouth once daily escitalopram oxalate (L EXAPRO) 20 mg tablet Take 10 mg by mouth once daily. 0 03/22/2024 Discontinued (Other) take 1 tablet by mikki th once daily escitalopram oxalate (LEXAPRO) 20 mg tablet Take 20 mg by mouth once daily. 0 Active Comment on above: Take 20 mg by mouth once daily. Take 10 mg by mouth once daily. 72 hr fentaNYL 0.05 mg/hr transdermal system (20 sources) Opioid Agonist Start: 07-05-2025 Fentanyl 50 mcg/hr patch 72 hour Active 1 NMA TD Q72H 0 July 05, 2025 12:00am Complies with drug therapy Start: 07-05-2025 Fentanyl 50 mc g/hr patch 72 hour Active 1 NMA TD Q72H 0 July 05, 2025 12:00am Complies with drug therapy Start: 07-02-2025 Fentanyl 50 mc g/hr patch 72 hour Active 1 NMA TD Every 3 Days 0 July 02, 2025 12:00am Complies with drug therapy Start: 06-11-2025 apply 1 dose transde rmal route every hour fentaNYL (DURAGESIC) 25 mcg/hr Apply 1 patch as directed every 72 hours. 25 mg 06/11/2025 Active Start: 12-18-2024 End: 12-23-2024 Fentanyl 25 mcg/hr patch 72 hour Discontinued 1 NMA TD Every 3 Days December 18, 2024 12:00am December 23, 2024 11:41am TOOK PATCH OFF AT HOME 12/18/24 DOES NOT WANT REAPPLIED AT THIS TIME Start: 08-08-2020 End: 12-14-2021 Fentanyl 1 EACH patch 72 ricki r Discontinued 1 NMA TD August 08, 2020 12:00am December 14, 2021 2:41pm Start: 08-08-2020 End: 12-14-2021 Fentanyl Discontinued 1 EACH TD August 07, 2020 11:00pm December 14, 2021 1:41pm Start: 07-22-2020 End: 07-29-2020 Fentanyl 100 MCG patch Discontinued 100 ug TRANSDERM. Every 3 Days 2 7 0 July 22, 2020 July 28, 2020 12:00am July 29, 2020 12:03am Multiple myeloma without remission Multiple myeloma not having achieved remission Start: 07-03-2020 End: 07-22-2020 Fentanyl 75 MCG patch Discon tinued 75 ug TRANSDERM. Every 3 Days July 03, 2020 4:55pm July 22, 2020 7:32pm pain Start: 06-28-2020 End: 07-02-2020 Fentanyl 1 EACH patch 72 ricki r Discontinued 12 ug TD Q72H June 28, 2020 12:00am July 02, 2020 3:52pm pain apply to back fentaNYL (DURAGE SIC) 50 mcg/hr Apply 1 patch as directed every 72 hours. Do not cut patch. 0 Active ferrous sulfate (1 source) take 2 tablets by mouth once daily ferrous sulfate (IRON PO) Take 2 tablets by mouth once daily. Active HYDROmorphone hydrochloride 2 mg oral tablet (20 sources) Opioid Agonist Start: take 1 tablet by mouth once daily as needed HYDROmorphone (DILAUDID) 2 mg tablet Take 2 mg by mouth as needed for pain (1 tab up to 4x day as needed). 03/07/2025 Active Start: 12-17-2021 HYDROmorphone (DILAUDID) 2 mg tablet 1 mg every 4 hours. 0 12/17/2021 Active Start: 08-08-2020 End: 04-23-2021 take 1-10 tablets by mouth every four hours as needed for pain Hydromorphone 2 MG tablet Discontinued 2 mg PO EVERY 4 HOURS NEEDED as needed for Pain 1-10 Or Fever August 08, 2020 12:00am April 23, 2021 3:24pm Start: 08-08-2020 End: 04-23-2021 take 1 tablet by mouth every six hours Hydromorphone 2 MG tablet Discontinued 2 mg PO EVERY 6 HOURS August 08, 2020 12:00am April 23, 2021 3:24pm pain Start: 07-22-2020 End: 07-29-2020 take 2 tablets by mouth every six hours Hydromorphone 2 MG tablet Discontinued 4 mg PO EVERY 6 HOURS 56 7 0 July 22, 2020 July 28, 2020 12:00am July 29, 2020 12:03am Multiple myeloma without remission Multiple myeloma not having achieved remission Start: 07-22-2020 End: 07-29-2020 take 2 tablets by mouth every three hours as needed for pain Hydromorphone 2 MG tablet Discontinued 4 mg PO EVERY 3 HOURS NEEDED as needed for Pain Score 6-10 112 7 0 July 22, 2020 July 28, 2020 12:00July 29, 2020 12:03am Multiple myeloma without remission Multiple myeloma not having achieved remission Start: 07-22-2020 End: 07-29-2020 take 4 mg by mouth every six hours Hydromorphone Discontinued 4 MG PO EVERY 6 HOURS 56 July 22, 2020 July 28, 2020 11:03pm Start: 07-22-2020 End: 07-29-2020 take 4 mg by mouth every three hours as needed Hydromorphone Discontinued 4 MG PO EVERY 3 HOURS NEEDED 112 July 22, 2020 July 28, 2020 11:03pm Comment on above: 1 mg every 4 hours. ipratropium bromide 0.042 mg/actuat metered dose nasal spray (3 sources) Anticholinergic Start: 07-05-2025 Ipratropium [place] 42 mcg (0.06 %) spray,non-aerosol Active 2 NMA INTRANASAL 3 to 4 times per day as needed for allergy symptoms 15 July 05, 2025 12:00am administer into each nostril Complies with drug therapy Start: 07-05-2025 Ipratropium Br omide 42 mcg (0.06 %) spray,non-aerosol Active 2 NMA INTRANASAL 3 to 4 times per day as needed for allergy symptoms 15 July 05, 2025 12:00am administer into each nostril Complies with drug therapy iv contrast (will be provide d with radiology test) (10 sources) Start: 04-29-2025 End: 04-30-2025 iv contrast (will be provide d with radiology test) Indications: Multiple myeloma not having achieved remission (HCC) , Acute midline low back pain without sciatica MRI LSP Inject, intravenously, once for 1 dose. No IV access, insert saline lock prior to the beginning of sedation, infusion, injection of imaging exam. Discontinue saline lock post exam. If Pt. has a central line or IVAD, may access for administration according to line specific nursing protocol. Once exam is complete flush line and de-access according to line specific nursing protocol in the MR contrast administration guidelines link. 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 If Pt. 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 No IV access, insert saline lock prior to the beginning of sedation, infusion, injection of imaging exam. Discontinue saline lock post exam. If Pt. has a central line or IVAD, may access for administration according to line specific nursing protocol. Once exam is complete flush line and de-access according to line specific nursing protocol in the MR contrast administration guidelines link. 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 No IV access, insert saline lock prior to the beginning of sedation, infusion, injection of imaging exam. Discontinue saline lock post exam. If Pt. has a central line or IVAD, may access for administration according to line specific nursing protocol. Once exam is complete flush line and de-access according to line specific nursing protocol in the MR contrast administration guidelines link. 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 No IV access, insert saline lock prior to the beginning of sedation, infusion, injection of imaging exam. Discontinue saline lock post exam. If Pt. has a central line or IVAD, may access for administration according to line specific nursing protocol. Once exam is complete flush line and de-access according to line specific nursing protocol in the MR contrast administration guidelines link. 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 No IV access, insert saline lock prior to the beginning of sedation, infusion, injection of imaging exam. Discontinue saline lock post exam. If Pt. has a central line or IVAD, may access for administration according to line specific nursing protocol. Once exam is complete flush line and de-access according to line specific nursing protocol in the MR contrast administration guidelines link 1 Each 08/13/2024 08/14/2024 Active Start: 12-07-2023 End: 12-08-2023 iv contrast (will be provide d with radiology test) Indications: Pancreatic cyst MRI PANC/VENANCIO Inject, intravenously, once for 1 dose. No IV access, insert saline lock prior to the beginning of sedation, infusion, injection of imaging exam. Discontinue saline lock post exam. If Pt. has a central line or IVAD, may access for administration according to line specific nursing protocol. Once exam is complete flush line and de-access according to line specific nursing protocol in the MR contrast administration guidelines link. 1 Each 0 12/07/2023 12/08/2023 Active Start: 06-30-2023 End: 07-01-2023 inject 1 dose intravenously once iv contrast (will be provided with radiology test) MRI Brain Inject, intravenously, once for 1 dose.No IV access, insert saline lock prior to beginning of sedation, infusion, injection of imaging exam.Discontinue saline lock post exam. If Pt. has a central line or IVAD, may access for administration according to line specific nursing protocol.Once exam is complete flush line and de-access according to line specific nursing protocol in the MR contrast administration guidelines link 1 Each 0 06/30/2023 07/01/2023 Start: 06-30-2023 End: 07-01-2023 inject 1 dose intravenously once iv contrast (will be provided with radiology test) MRI Brain Inject, intravenously, once for 1 dose.No IV access, insert saline lock prior to beginning of sedation, infusion, injection of imaging exam.Discontinue saline lock post exam. If Pt. has a central line or IVAD, may access for administration according to line specific nursing protocol.Once exam is complete flush line and de-access according to line specific nursing protocol in the MR contrast administration guidelines link 1 Each 0 06/30/2023 07/01/2023 Active Comment on above: MRI Brain Inject, in travenously, once for 1 dose.No IV access, insert saline lock prior to beginning of sedation, infusion, injection of imaging exam.Discontinue saline lock post exam. If Pt. has a central line or IVAD, may access for administration according to line specific nursing protocol.Once exam is complete flush line and de-access according to line specific nursing protocol in the MR contrast administration guidelines link MRI PANC/VENANCIO Inject, intravenously, once for 1 dose. No IV access, insert saline lock prior to the beginning of sedation, infusion, injection of imaging exam. Discontinue saline lock post exam. If Pt. has a central line or IVAD, may access for administration according to line specific nursing protocol. Once exam is complete flush line and de-access according to line specific nursing protocol in the MR contrast administration guidelines link. lidocaine 25 mg/ml / prilocaine 25 mg/ml topical cream (20 sources) Antiarrhythmic, Amide Local Anesthetic Start: 5 End: 7 lidocaine-priloca ine (EMLA) 2.5-2.5 % cream Indications: Multiple myeloma not having achieved remission (HCC) Apply 60 minutes before accessing port. 15 g 3 01/25/2025 02/06/2027 Active LORazepam 0.5 mg oral tablet (20 sources) Benzodiazepine Start: take 1 tablet by mouth once daily Lorazepam 0.5 mg tablet Active 0.5 mg PO daily July 05, 2025 12:00am Complies with drug therapy Start: 07-05-2025 take 0.25 mg by mout h twice daily Lorazepam 0.5 mg tablet Active 0.25 mg PO TWICE A DAY July 05, 2025 12:00am Complies with drug therapy Start: 07-05-2025 take 1 tablet by mikki th once daily Lorazepam 0.5 mg tablet Active 0.5 mg PO daily July 05, 2025 12:00am Complies with drug therapy Start: 07-05-2025 take 0.25 mg by mout h twice daily Lorazepam 0.5 mg tablet Active 0.25 mg PO TWICE A DAY July 05, 2025 12:00am Complies with drug therapy Start: 04-23-2021 End: 12-23-2024 take 1 tablet by mouth three times daily as needed for anxiety Lorazepam 0.5 mg tablet Discontinued 0.5 mg PO THREE TIMES A DAY as needed for anxiety April 23, 2021 12:00am December 23, 2024 11:41am take 0.25 mg by mout h every twelve hours as needed LORazepam (ATIVAN) 0.5 mg Take 0.25 mg by mouth two times a day as needed. Active End: 06-21-2024 take 0.25 mg by mouth every eight hours as needed LORazepam (ATIVAN) 0.5 mg Take 0.25 mg by mouth three times daily as needed. 06/21/2024 Discontinued take 0.25 mg by mout h every six hours as needed LORazepam (ATIVAN) 0.5 mg Take 0.25 mg by mouth four times daily as needed. 0 Active Comment on above: Take 0.25 mg by mout h four times daily as needed. Take 0.25 mg by mout h three times daily as needed. Magnesium (20 sources) take 1 tablet by mouth once daily at bedtime MAGNESIUM PO Take 1 tablet by mouth daily at bedtime. Active End: 06-21-2024 take 1 tablet by mouth once daily Magnesium 200 mg tab Take 200 mg by mouth once daily. 06/21/2024 Discontinued take 1 tablet by mikki th once daily Magnesium 200 mg tab Take 200 mg by mouth once daily. Active take 1 tablet by mikki th once daily Magnesium 200 mg tab Take 200 mg by mouth once daily. 0 Active Comment on above: Take 200 mg by mouth once daily. multivitamin tablet (1 source) take 1 tablet by mouth once daily multivitamin tablet Take 1 tablet by mouth once daily. Active ondansetron 8 mg oral tablet (20 sources) Serotonin-3 Receptor Antagonist Start: take 4 mg by mouth four times daily as needed Ondansetron Hcl 8 mg tablet Active 4 mg PO 4 TIMES DAILY NEEDED July 05, 2025 3:14pm nausea Complies with drug therapy Start: 07-05-2025 take 4 mg by mouth f our times daily as needed Ondansetron Hcl 8 mg tablet Active 4 mg PO 4 TIMES DAILY NEEDED July 05, 2025 3:14pm nausea Complies with drug therapy Start: 06-14-2025 End: 06-14-2025 8 mg, INTRAVENOUS, ONCE, 1 d ose, On Tue06/14/25 at 1330, Administer 30 minutes prior to infusion. Start: 06-12-2025 End: 06-12-2025 8 mg, INTRAVENOUS, ONCE, 1 d ose, On Tue06/12/25 at 1400, Administer 30 minutes prior to infusion. Start: 06-07-2025 End: 06-07-2025 8 mg, INTRAVENOUS, ONCE, 1 d ose, On Tue06/07/25 at 1430, Administer 30 minutes prior to infusion. Start: 06-03-2025 End: 06-03-2025 8 mg, INTRAVENOUS, ONCE, 1 d ose, On Tue06/03/25 at 1430, Administer 30 minutes prior to infusion. Start: 05-31-2025 End: 05-31-2025 8 mg, INTRAVENOUS, ONCE, 1 d ose, On Tue05/31/25 at 1330, Administer 30 minutes prior to infusion. Start: 05-27-2025 End: 05-27-2025 8 mg, INTRAVENOUS, ONCE, 1 d ose, On Tue05/27/25 at 1400, Administer 30 minutes prior to infusion. Start: 05-24-2025 End: 05-24-2025 8 mg, INTRAVENOUS, ONCE, 1 d ose, On Tue05/24/25 at 1130, Administer 30 minutes prior to infusion. Start: 05-22-2025 End: 05-22-2025 8 mg, INTRAVENOUS, ONCE, 1 d ose, On Tue05/22/25 at 1400, Administer 30 minutes prior to infusion. Start: 05-20-2025 End: 05-20-2025 8 mg, INTRAVENOUS, ONCE, 1 d ose, On Tue05/20/25 at 0930, Administer 30 minutes prior to infusion. Start: 05-10-2025 End: 05-10-2025 8 mg, INTRAVENOUS, ONCE, 1 d ose, On Tue05/10/25 at 1000, Administer 30 minutes prior to infusion. Start: 05-08-2025 End: 05-08-2025 8 mg, INTRAVENOUS, ONCE, 1 d ose, On Tue05/08/25 at 0900, Administer 30 minutes prior to infusion. Start: 05-06-2025 End: 05-06-2025 8 mg, INTRAVENOUS, ONCE, 1 d ose, On Tue05/06/25 at 1000, Administer 30 minutes prior to infusion. Start: 05-02-2025 End: 05-02-2025 8 mg, INTRAVENOUS, ONCE, 1 d ose, On Tue05/02/25 at 1130, Administer 30 minutes prior to infusion. Start: 04-25-2025 End: 04-25-2025 8 mg, INTRAVENOUS, ONCE, 1 d ose, On Tue04/25/25 at 1330, Administer 30 minutes prior to infusion. Start: 04-15-2025 End: 04-15-2025 8 mg, INTRAVENOUS, ONCE, 1 d ose, On Tue04/15/25 at 0930, Administer 30 minutes prior to infusion. Start: 04-11-2025 End: 04-11-2025 8 mg, INTRAVENOUS, ONCE, 1 d ose, On Tue04/11/25 at 1330, Administer 30 minutes prior to infusion. Start: 04-10-2025 End: 04-10-2025 8 mg, INTRAVENOUS, ONCE, 1 d ose, On Tue04/10/25 at 0930, Administer 30 minutes prior to infusion. Start: 04-05-2025 End: 04-05-2025 8 mg, INTRAVENOUS, ONCE, 1 d ose, On Tue04/05/25 at 1330 Start: 01-14-2025 take 2 mg by mouth e very eight hours as needed ondansetron (ZOFRAN) 8 mg tablet Take 2 mg by mouth every 8 hours as needed. 01/14/2025 Active Start: 01-14-2025 End: 07-05-2025 take 4 mg by mouth four times daily as needed for nausea Ondansetron Hcl 8 mg tablet Discontinued 4 mg PO 4 TIMES DAILY NEEDED as needed for nausea January 14, 2025 12:00am July 05, 2025 3:14pm Start: 01-02-2025 End: 01-14-2025 take 1 tablet by mouth every six hours as needed for nausea and vomiting Ondansetron 4 mg tablet,disintegrating Discontinued 4 mg PO EVERY 6 HOURS as needed for nausea and vomiting January 02, 2025 12:00am January 14, 2025 10:05am Start: 12-18-2024 End: 12-23-2024 take 4 mg by mouth four times daily as needed for nausea Ondansetron Hcl 8 mg tablet Discontinued 4 mg PO 4 TIMES DAILY NEEDED as needed for nausea December 18, 2024 12:00am December 23, 2024 11:43am Start: 07-19-2024 End: 01-11-2025 take 1 tablet by mouth every eight hours as needed for nausea and vomiting Ondansetron 4 mg tablet,disintegrating Discontinued 4 mg PO Q8H as needed for nausea and vomiting 30 0 December 23, 2024 12:00am January 02, 2025 12:06pm Start: 03-22-2024 End: 08-13-2024 take 1 tablet by mouth every eight hours as needed ondansetron (ZOFRAN) 8 mg tablet Take 1 tablet by mouth every 8 hours as needed for nausea/vomiting. 20 tablet 2 03/22/2024 08/13/2024 Discontinued Start: 07-02-2020 End: 07-22-2020 take 1 tablet by mouth every six hours as needed for nausea Ondansetron Hcl 8 MG tablet Discontinued 8 mg PO EVERY 6 HOURS NEEDED as needed for Nausea 1 0 July 02, 2020 3:58pm July 22, 2020 7:32pm Comment on above: Take 8 mg by mouth every 8 hours as need ed for nausea/vomiting. OTC PRODUCT (20 sources) End: take 2 tablets by mouth twice daily OTC PRODUCT Take 2 tablets by mouth two times a day. Adrenal LF 06/26/2025 Discontinued End: 05-29-2025 take 10 drop(s) by mouth three times daily OTC PRODUCT Take 10 drops by mouth three times a day. Drainer 05/29/2025 Discontinued End: 05-29-2025 take 10 drop(s) by mouth three times daily OTC PRODUCT Take 10 drops by mouth three times a day. Overall wellness 05/29/2025 Discontinued take 10 drop(s) by m outh three times daily OTC PRODUCT Take 10 drops by mouth three times a day. Drainer Active take 10 drop(s) by m outh three times daily OTC PRODUCT Take 10 drops by mouth three times a day. Overall wellness Active take 2 tablets by mo uth twice daily OTC PRODUCT Take 2 tablets by mouth two times a day. Adrenal LF Active take 2 tablets by mo uth twice daily OTC PRODUCT Take 2 tablets by mouth two times a day. Green Tea Catechins Active pomalidomide 1 mg oral capsule (15 sources) Thalidomide Analog Start: 07-05-2025 take 1 capsule by mouth once daily in the morning Pomalidomide 1 mg capsule Active 1 mg PO EVERY MORNING July 05, 2025 12:00am Complies with drug therapy Start: 07-05-2025 take 1 capsule by mo uth once daily in the morning Pomalidomide 1 mg capsule Active 1 mg PO EVERY MORNING July 05, 2025 12:00am Complies with drug therapy Start: 06-11-2025 pomalidomide ( POMALYST) 1 mg capsule Take 1 capsule (1 mg) by mouth once daily. Take 1 capsule by mouth once daily for 21 days and then off for 7 days. 21 capsule 06/11/2025 Active predniSONE 20 mg oral tablet (6 sources) Start: 05-03-2025 End: 05-19-2025 take 2 tablets by mouth once daily, then take 1.5 tablets by mouth once daily, then take 1 tablet by mouth once daily, then take 0.5 tablet by mouth once daily predniSONE (DELTASONE) 20 mg tablet Take 2 tablets by mouth once daily for 4 days, THEN 1.5 tablets once daily for 4 days, THEN 1 tablet once daily for 4 days, THEN 0.5 tablets once daily for 4 days. 20 tablet 05/03/2025 05/19/2025 Active Start: 02-22-2025 End: 03-03-2025 take 2 tablets by mouth once daily, then take 1 tablet by mouth once daily, then take 0.5 tablet by mouth once daily predniSONE (DELTASONE) 20 mg tablet Take 2 tablets by mouth once daily for 3 days, THEN 1 tablet once daily for 3 days, THEN 0.5 tablets once daily for 3 days. 11 tablet 02/22/2025 03/03/2025 Active rizatriptan 10 mg oral tablet (11 sources) Serotonin-1b and Serotonin-1d Receptor Agonist Start: 07-05-2025 take 1 tablet by mouth every two hours Rizatriptan 10 mg tablet Active 0 PO .COMPLEX July 05, 2025 12:00am take 1 tab at onset of headache; if no relief may repeat 1 tab after at least 2 hrs; max = 3 tabs/24 hr PO Complies with drug therapy Start: 07-05-2025 take 1 tablet by mikki th every two hours Rizatriptan 10 mg tablet Active 0 PO .COMPLEX July 05, 2025 12:00am take 1 tab at onset of headache; if no relief may repeat 1 tab after at least 2 hrs; max = 3 tabs/24 hr PO Complies with drug therapy Start: 06-13-2025 take 1 tablet by mikki th every two hours as needed rizatriptan (MAXALT) 10 mg tablet Take 1 tablet by mouth as needed. May repeat dose after 2 hours if needed. Maximum daily dose is 30 mg per day. 12 tablet 2 06/13/2025 Active sennosides (SENOKOT PO) (1 source) take 1 tablet by mikki th once daily as needed sennosides (SENOKOT PO) Take 1 tablet by mouth once daily as needed. Active Completed/Discontinued Medications Medication Drug Class(es) Dates Sig (Normalized) Sig (Original) acetaminophen 500 mg oral tablet (20 sources) Start: 06-26-2025 End: 06-26-2025 take 1 dose by mouth once, then take 4000 mg by mouth once daily 1,000 mg, ORAL, ONCE, 1 dose, On Tue06/26/25 at 1230, No more than 4000 mg of acetaminophen should be given per day (FROM ALL SOURCES) Start: 06-12-2025 End: 06-12-2025 take 1 dose by mouth once, then take 4000 mg by mouth once daily 1,000 mg, ORAL, ONCE, 1 dose, On Tue06/12/25 at 1400, No more than 4000 mg of acetaminophen should be given per day (FROM ALL SOURCES) Start: 05-29-2025 End: 05-29-2025 take 1 dose by mouth once, then take 4000 mg by mouth once daily 1,000 mg, ORAL, ONCE, 1 dose, On Tue05/29/25 at 1430, No more than 4000 mg of acetaminophen should be given per day (FROM ALL SOURCES) Start: 05-02-2025 End: 05-02-2025 take 1 dose by mouth once, then take 4000 mg by mouth once daily 1,000 mg, ORAL, ONCE, 1 dose, On Rosi 05/02/25 at 1030, No more than 4000 mg of acetaminophen should be given per day (FROM ALL SOURCES) Start: 04-17-2025 End: 04-17-2025 take 1 dose by mouth once, then take 4000 mg by mouth once daily 1,000 mg, ORAL, ONCE, 1 dose, On Tue04/17/25 at 1600, No more than 4000 mg of acetaminophen should be given per day (FROM ALL SOURCES) Start: 04-03-2025 End: 04-03-2025 take 1 dose by mouth once, then take 4000 mg by mouth once daily 1,000 mg, ORAL, ONCE, 1 dose, On Tue04/03/25 at 1430, No more than 4000 mg of acetaminophen should be given per day (FROM ALL SOURCES) Start: 03-21-2025 End: 03-21-2025 take 1 dose by mouth once, then take 4000 mg by mouth once daily 1,000 mg, ORAL, ONCE, 1 dose, On Rosi 03/21/25 at 1400, No more than 4000 mg of acetaminophen should be given per day (FROM ALL SOURCES) Start: 03-15-2025 End: 03-15-2025 take 1 dose by mouth once, then take 4000 mg by mouth once daily 1,000 mg, ORAL, ONCE, 1 dose, On Tue03/15/25 at 1500, No more than 4000 mg of acetaminophen should be given per day (FROM ALL SOURCES) Start: 03-08-2025 End: 03-08-2025 take 1 dose by mouth once, then take 4000 mg by mouth once daily 1,000 mg, ORAL, ONCE, 1 dose, On Tue03/08/25 at 1330, No more than 4000 mg of acetaminophen should be given per day (FROM ALL SOURCES) Start: 02-15-2025 End: 02-15-2025 take 1 dose by mouth once, then take 4000 mg by mouth once daily 1,000 mg, ORAL, ONCE, 1 dose, On Tue02/15/25 at 1430, No more than 4000 mg of acetaminophen should be given per day (FROM ALL SOURCES) Start: 02-08-2025 End: 02-08-2025 take 1 dose by mouth once, then take 4000 mg by mouth once daily 1,000 mg, ORAL, ONCE, 1 dose, On Tue02/08/25 at 1430, No more than 4000 mg of acetaminophen should be given per day (FROM ALL SOURCES) Start: 01-25-2025 End: 01-25-2025 take 1 dose by mouth once, then take 4000 mg by mouth once daily 1,000 mg, ORAL, ONCE, 1 dose, On Tue01/25/25 at 1000, No more than 4000 mg of acetaminophen should be given per day (FROM ALL SOURCES) Start: 08-23-2024 End: 08-23-2024 take 1 dose by mouth once, then take 4000 mg by mouth once daily 650 mg, ORAL, ONCE, 1 dose, On Tue08/23/24 at 1500, No more than 4000 mg of acetaminophen should be given per day (FROM ALL SOURCES) Start: 07-22-2020 End: 12-18-2024 take 2 tablets by mouth three times daily Acetaminophen 500 MG tablet Discontinued 1000 mg PO THREE TIMES A DAY 0 July 22, 2020 12:00am December 18, 2024 8:49pm Start: 07-22-2020 take 1000 mg by mout h three times daily Acetaminophen Active 1000 MG PO THREE TIMES A DAY July 21, 2020 11:00pm Start: 06-28-2020 End: 07-22-2020 take 1 tablet by mouth three times daily Acetaminophen 500 MG tablet Discontinued 500 mg PO THREE TIMES A DAY June 28, 2020 12:00am July 22, 2020 7:11pm PAIN End: 03-22-2024 acetaminophen 325 mg cap Rubens e 500 mg by mouth once daily. 0 03/22/2024 Discontinued (Other) acetaminophen 32 5 mg cap Take 500 mg by mouth twice daily. 0 Active acetaminophen 32 5 mg cap Take 500 mg by mouth three times daily. 0 Active Comment on above: Take 500 mg by mouth three times daily. Take 500 mg by mouth twice daily. Take 500 mg by mouth once daily. acetaminophen 325 mg / oxyCODONE hydrochloride 5 mg oral tablet (20 sources) Opioid Agonist Start: End: take 1 tablet by mouth every four hours as needed oxyCODONE-acetaminoph en (PERCOCET) 5-325 mg tablet Indications: Multiple myeloma, without mention of having achieved remission (HCC) , Epigastric pain Take 1 tablet by mouth every 4 hours as needed. 30 tablet 0 03/01/2023 03/08/2023 Discontinued Start: 06-13-2020 End: 06-18-2020 Oxycodone-Acetaminophen 10-3 25 mg tablet Discontinued PO 0 June 13, 2020 12:00am June 18, 2020 1:34pm Start: 06-13-2020 End: 06-18-2020 Oxycodone-Acetaminophen Disc ontinued PO June 12, 2020 11:00pm June 18, 2020 12:34pm Start: 05-28-2020 End: 05-31-2020 Oxycodone-Acetaminophen 1 TA BLET tablet Discontinued 1 {tbl} PO EVERY 6 HOURS NEEDED as needed for Pain 12 3 0 May 28, 2020 May 30, 2020 12:00am May 31, 2020 12:02am Start: 05-28-2020 End: 05-31-2020 take 1 tablet by mouth every six hours as needed Oxycodone-Acetaminophen Discontinued 1 TABLET PO EVERY 6 HOURS NEEDED 12 3 May 28, 2020 May 30, 2020 11:02pm Comment on above: Take 1 tablet by mikki th every 4 hours as needed. aluminum hydroxide 80 mg/ml / magnesium hydroxide 80 mg/ml / simethicone 8 mg/ml oral suspension (20 sources) Start: 07-22-2020 End: 12-14-2021 take 1 mL by mouth every six hours as needed Alum-Mag Hydroxide-Simeth 30 ML suspension Discontinued 30 mL PO EVERY 6 HOURS NEEDED as needed for Indigestion 0 July 22, 2020 12:00am December 14, 2021 2:42pm Start: 07-22-2020 End: 12-14-2021 take 1 mL by mouth every six hours as needed Alum-Mag Hydroxide-Simeth Discontinued 30 ML PO EVERY 6 HOURS NEEDED July 21, 2020 11:00pm December 14, 2021 1:42pm Ascorbic Acid (20 sources) Vitamin C End: 06-22-2024 take 1 tablet by mouth once daily ascorbic acid (VITAMIN C ORAL) Take 1 tablet by mouth once daily. 06/22/2024 Discontinued take 1 tablet by mouth once sameer y ascorbic acid (VITAMIN C ORAL) Take 1 tablet by mouth once daily. Active take 1 tablet by mouth once sameer y ascorbic acid (VITAMIN C ORAL) Take 1 tablet by mouth once daily. 0 Active Comment on above: Take 1 tablet by [facility] once daily. aspirin 81 mg chewable tablet (20 sources) Platelet Aggregation Inhibitor, Nonsteroidal Anti-inflammatory Drug Start: 08-09-2020 End: 04-23-2021 Aspirin 81 MG tablet,chewable Discontinued 81 mg PO 1500 August 09, 2020 12:00am April 23, 2021 3:26pm blood clots End: 06-22-2024 take 1 tablet by mouth once daily aspirin, enteric coated (ASPIRIN, ENTERIC COATED) 81 mg EC tablet Take 81 mg by mouth once daily. Only while on Revlimid 06/22/2024 Discontinued Comment on above: Take 81 mg by mouth once daily. Take 81 mg by mouth once daily. Only while on Revlimid bortezomib 3.5 mg injection (20 sources) Proteasome Inhibitor Start: 08-09-2024 End: 08-09-2024 2.63 mg (rounded from 2.626 mg = 1.3 mg/m2 2.02 m2 Order-specific BSA), SUBCUTANEOUS, ONCE, 1 dose, On Rosi 08/09/24 at 1400, exp 0900 08/19/24 (room temp) - DO NOT SHAKE - Hazardous Chemotherapy Drug: Use appropriate PPE. FATAL IF GIVEN INTRATHECALLY. Protect from light if utilizing refrigerator 10 day expiration. Start: 07-26-2024 End: 07-26-2024 2.63 mg (rounded from 2.626 mg = 1.3 mg/m2 2.02 m2 Order- specific BSA), SUBCUTANEOUS, ONCE, 1 dose, On Rosi 07/26/24 at 1400, exp 0900 08/05/24 (refrigerated) - DO NOT SHAKE - Hazardous Chemotherapy Drug: Use appropriate PPE. FATAL IF GIVEN INTRATHECALLY. Protect from light if utilizing refrigerator 10 day expiration. Start: 07-12-2024 End: 07-12-2024 2.63 mg (rounded from 2.626 mg = 1.3 mg/m2 2.02 m2 Order- specific BSA), SUBCUTANEOUS, ONCE, 1 dose, On Rosi 07/12/24 at 1330, exp 1400 07/22/24 (refrigerated) - DO NOT SHAKE - Hazardous Chemotherapy Drug: Use appropriate PPE. FATAL IF GIVEN INTRATHECALLY. Protect from light if utilizing refrigerator 10 day expiration. Start: 08-08-2020 End: 04-23-2021 Bortezomib 3.5 MG/1.4 ML rec on soln Discontinued 3.5 mg SQ August 08, 2020 12:00am April 23, 2021 3:26pm chlorhexidine gluconate 1.2 mg/ml mouthwash (12 sources) Start: 11-16-2021 Chlorhexidine Gluconate (PERIDEX) 0.12 % solution Use 15 mL as instructed twice daily. Rinse around mouth for 30 seconds then expectorate 473 mL 0 11/16/2021 Active Comment on above: Use 15 mL as instruc abi twice daily. Rinse around mouth for 30 seconds then expectorate cholecalciferol, vitamin D3, (VITAMIN D3 50 MCG, 2,000 UNIT, GUMMIES) (20 sources) Start: 02-14-2019 End: 01-24-2025 take 2000 [IU] by mouth once cholecalciferol, vitamin D3, (VITAMIN D3 50 MCG, 2,000 UNIT, GUMMIES) Take 2,000 Units by mouth one time only. 02/14/2019 01/24/2025 Discontinued Start: 02-14-2019 take 2000 [IU] by mouth once c holecalciferol, vitamin D3, (VITAMIN D3 50 MCG, 2,000 UNIT, GUMMIES) Take 2,000 Units by mouth one time only. 02/14/2019 Active cholecalciferol, vitamin D3, (VITAMIN D3 ORAL) (20 sources) End: 06-22-2024 take 1 tablet by mouth once daily cholecalciferol, vitamin D3, (VITAMIN D3 ORAL) Take 1 tablet by mouth once daily. 06/22/2024 Discontinued take 1 tablet by mouth once asmeer y cholecalciferol, vitamin D3, (VITAMIN D3 ORAL) Take 1 tablet by mouth once daily. Active take 1 tablet by mouth once sameer y cholecalciferol, vitamin D3, (VITAMIN D3 ORAL) Take 1 tablet by mouth once daily. 0 Active Comment on above: Take 1 tablet by mikki th once daily. colestipol hydrochloride 1000 mg oral tablet (12 sources) Bile Acid Sequestrant Start: 05-15-20 21 take 1 tablet by mouth every twelve hours as needed colestipol (COLESTID) 1 gram tablet Take 1 g by mouth twice daily as needed. 0 05/15/2021 Active Comment on above: Take 1 g by mouth tw ice daily as needed. Collagen (20 sources) End: 02-23-20 25 COLLAGEN MISC 1 Tablespoonful once daily. 02/22/2025 Discontinued COLLAGEN MISC 1 Tablespoonful once daily. Active Compress.Stocking,Knee,Reg,L rg (2 sources) Start: 06-18-2020 End: 07-02-2020 Compress.Stocking,Knee,Reg,L rg Discontinued 0 .ROUTE .MEDSUPPLY 2 June 17, 2020 11:00pm July 02, 2020 2:55pm wear daily for venous insufficiency 20-30 mmHg Start: 06-18-2020 End: 07-02-2020 Compress.Stocking,Knee,Reg,L rg Discontinued 0 .ROUTE .MEDSUPPLY 2 June 18, 2020 12:00am July 02, 2020 3:55pm wear daily for venous insufficiency 20-30 mmHg Compress.Stocking,Knee,Reg,L rg misc (20 sources) Start: 06-18-2020 End: 07-02-2020 Compress.Stocking,Knee,Reg,L rg misc Discontinued 0 .ROUTE .MEDSUPPLY 2 June 18, 2020 12:00am July 02, 2020 3:55pm Venous insufficiency (chronic) (peripheral) wear daily for venous insufficiency 20-30 mmHg Start: 06-18-2020 End: 07-02-2020 Compress.Stocking,Knee,Reg,L rg misc Discontinued 0 .ROUTE .MEDSUPPLY 2 June 18, 2020 12:00am July 02, 2020 3:55pm wear daily for venous insufficiency 20-30 mmHg cyclobenzaprine hydrochloride 10 mg oral tablet (20 sources) Muscle Relaxant Start: 06-09-2020 End: 07-22-2020 take 1 tablet by mouth three times daily as needed for pain Cyclobenzaprine 10 MG tablet Discontinued 10 mg PO 3 TIMES DAILY NEEDED as needed for Pain Score -07/19June 09, 2020 12:00am July 22, 2020 7:32pm 15 ml daratumumab-fihj 120 mg/ml / hyaluronidase-fihj 2000 unt/ml injection (12 sources) Endoglycosidase , [id number] Cytolytic Antibody Start: 06-26-2025 End: 06-26-2025 1,800 mg, SUBCUTANEOUS, ONCE, 1 dose, On Tue06/26/25 at 1300, ++FOR SUBCUTANEOUS ADMINISTRATION ONLY++ exp 1200 07/06/25 (refrigerated) EXP: Prot ect From Light. Inject subcutaneously into subcutaneous tissue on the abdomen approximately 3 inches to the right or left of the navel over 3 to 5 minutes. Start: 06-12-2025 End: 06-12-2025 1,800 mg, SUBCUTANEOUS, ONCE , 1 dose, On Tue06/12/25 at 1430, ++FOR SUBCUTANEOUS ADMINISTRATION ONLY++ exp 1430 06/22/25 (refrigerated) EXP: Protect From Light. Inject subcutaneously into subcutaneous tissue on the abdomen approximately 3 inches to the right or left of the navel over 3 to 5 minutes. Start: 05-29-2025 End: 05-29-2025 1,800 mg, SUBCUTANEOUS, ONCE , 1 dose, On Tue05/29/25 at 1500, ++FOR SUBCUTANEOUS ADMINISTRATION ONLY++ Expires: 06/02/25 @ 1415 EXP: Protect From Light. Inject subcutaneously into subcutaneous tissue on the abdomen approximately 3 inches to the right or left of the navel over 3 to 5 minutes. Start: 05-02-2025 End: 05-02-2025 1,800 mg, SUBCUTANEOUS, ONCE , 1 dose, On Tue05/02/25 at 1100, ++FOR SUBCUTANEOUS ADMINISTRATION ONLY++ Expires: 05/06/25 @ 1035 EXP: Protect From Light. Inject subcutaneously into subcutaneous tissue on the abdomen approximately 3 inches to the right or left of the navel over 3 to 5 minutes. Start: 04-17-2025 End: 04-17-2025 1,800 mg, SUBCUTANEOUS, ONCE , 1 dose, On Tue04/17/25 at 1630, ++FOR SUBCUTANEOUS ADMINISTRATION ONLY++ exp 149904/27/25 (refrigerated) EXP: Protect From Light. Inject subcutaneously into subcutaneous tissue on the abdomen approximately 3 inches to the right or left of the navel over 3 to 5 minutes. Start: 04-03-2025 End: 04-03-2025 1,800 mg, SUBCUTANEOUS, ONCE , 1 dose, On Tue04/03/25 at 1500, ++FOR SUBCUTANEOUS ADMINISTRATION ONLY++ Expires: EXP: Protect From Light. Inject subcutaneously into subcutaneous tissue on the abdomen approximately 3 inches to the right or left of the navel over 3 to 5 minutes. Start: 03-21-2025 End: 03-21-2025 1,800 mg, SUBCUTANEOUS, ONCE , 1 dose, On Tue03/21/25 at 1430, ++FOR SUBCUTANEOUS ADMINISTRATION ONLY++ Expires: 03/25/25 @ 1400 EXP: Protect From Light. Inject subcutaneously into subcutaneous tissue on the abdomen approximately 3 inches to the right or left of the navel over 3 to 5 minutes. Start: 03-15-2025 End: 03-15-2025 1,800 mg, SUBCUTANEOUS, ONCE , 1 dose, On Tue03/15/25 at 1530, ++FOR SUBCUTANEOUS ADMINISTRATION ONLY++ Expires: 03/25/25 @ 0930 (refrigerated) EXP: Protect From Light. Inject subcutaneously into subcutaneous tissue on the abdomen approximately 3 inches to the right or left of the navel over 3 to 5 minutes. Start: 03-08-2025 End: 03-08-2025 1,800 mg, SUBCUTANEOUS, ONCE , 1 dose, On Tue03/08/25 at 1400, ++FOR SUBCUTANEOUS ADMINISTRATION ONLY++ exp 1100 03/18/25 (refrigerated) EXP: Protect From Light. Inject subcutaneously into subcutaneous tissue on the abdomen approximately 3 inches to the right or left of the navel over 3 to 5 minutes. Start: 02-15-2025 End: 02-15-2025 1,800 mg, SUBCUTANEOUS, ONCE , 1 dose, On Tue02/15/25 at 1500, ++FOR SUBCUTANEOUS ADMINISTRATION ONLY++ Expires: 02/24/25 @ (refrigerated) EXP: Protect From Light. Inject subcutaneously into subcutaneous tissue on the abdomen approximately 3 inches to the right or left of the navel over 3 to 5 minutes. Start: 02-08-2025 End: 02-08-2025 1,800 mg, SUBCUTANEOUS, ONCE , 1 dose, On Tue02/08/25 at 1500, ++FOR SUBCUTANEOUS ADMINISTRATION ONLY++ exp 1430 02/11/25 (refrigerated) EXP: Protect From Light. Inject subcutaneously into subcutaneous tissue on the abdomen approximately 3 inches to the right or left of the navel over 3 to 5 minutes. Start: 01-25-2025 End: 01-25-2025 1,800 mg, SUBCUTANEOUS, ONCE , 1 dose, On Tue01/25/25 at 1030, ++FOR SUBCUTANEOUS ADMINISTRATION ONLY++ exp 0902/04/25 (refrigerated) EXP: Protect From Light. Inject subcutaneously into subcutaneous tissue on the abdomen approximately 3 inches to the right or left of the navel over 3 to 5 minutes. dexamethasone 4 mg oral tablet (20 sources) Corticosteroid Start: 06-26-2025 End: 06-26-2025 take 1 dose by mouth once 8 mg, ORAL, ONCE, 1 dose, On Tue06/26/25 at 1230 Start: 06-12-2025 End: 06-12-2025 take 1 dose by mouth once 8 mg, ORAL, ONCE, 1 dose, On Tue06/12/25 at 1400 Start: 05-29-2025 End: 05-29-2025 take 1 dose by mouth once 8 mg, ORAL, ONCE, 1 dose, On Tue05/29/25 at 1430 Start: 05-02-2025 End: 05-02-2025 take 1 dose by mouth once 8 mg, ORAL, ONCE, 1 dose, On Tue05/02/25 at 1030 Start: 04-17-2025 End: 04-17-2025 take 1 dose by mouth once 8 mg, ORAL, ONCE, 1 dose, On Tue04/17/25 at 1600 Start: 04-03-2025 End: 04-03-2025 take 1 dose by mouth once 8 mg, ORAL, ONCE, 1 dose, On Tue04/03/25 at 1430 Start: 03-21-2025 End: 03-21-2025 take 1 dose by mouth once 8 mg, ORAL, ONCE, 1 dose, On Tue03/21/25 at 1400 Start: 03-15-2025 End: 03-15-2025 take 1 dose by mouth once 8 mg, ORAL, ONCE, 1 dose, On Tue03/15/25 at 1500 Start: 03-08-2025 End: 03-08-2025 take 1 dose by mouth once 20 mg, ORAL, ONCE, 1 dose, O n Tue03/08/25 at 1330 Start: 02-15-2025 End: 02-15-2025 take 1 dose by mouth once 20 mg, ORAL, ONCE, 1 dose, O n Tue02/15/25 at 1430 Start: 01-11-2025 End: 03-15-2025 dexAMETHasone (DECADRON) 2 m g tablet Take 5 tablets by mouth once daily. the day after the first three doses of daratumumab. 15 tablet 01/11/2025 03/15/2025 Discontinued Start: 08-19-2023 End: 12-18-2024 take 1 tablet by mouth once daily Dexamethasone 6 mg tablet Discontinued 6 mg PO DAILY 5 August 19, 2023 1:00am December 18, 2024 8:50pm Start: 03-25-2022 End: 04-07-2022 take 2 tablets by mouth every week dexAMETHasone (DECADRON) 4 mg tablet Indications: Multiple myeloma in remission (HCC) Take 2 tablets by mouth one time a week. 20 tablet 2 03/25/2022 04/07/2022 Discontinued Start: 10-07-2021 take 2 tablets by [facility] every week dexAMETHasone (DECADRON) 4 mg tablet Indications: Multiple myeloma in remission (HCC) Take 2 tablets by mouth one time a week. 20 tablet 2 10/07/2021 Active Start: 08-08-2020 End: 04-23-2021 take 3 tablets by mouth once daily Dexamethasone 4 MG tablet Discontinued 12 mg PO DAILY August 08, 2020 12:00am April 23, 2021 3:26pm Start: 08-08-2020 End: 04-23-2021 take 12 mg by mouth once daily Dexamethasone Discontin ued 12 MG PO DAILY August 07, 2020 11:00pm April 23, 2021 2:26pm Comment on above: Take 2 tablets by [facility] one time a week. dexAMETHasone 20 mg in NaCl 0.9% 50 mL (DECADRON) (1 source) Start: 01-26-20 End: 01-26-20 25 20 mg, INTRAVENOUS, Administer over 15 Minutes, ONCE, 1 dose, On Tue01/25/25 at 1000, Administer 30 minutes prior to infusion. Refrigerate. dexAMETHasone sodium phosphate 20 mg in NaCl 0.9% 50 mL (1 source) Start: 02-09-20 End: 02-09-20 25 20 mg, INTRAVENOUS, Administer over 15 Minutes, ONCE, 1 dose, On Tue02/08/25 at 1500, Approx Total Volume - Expires: 02/09/25 @ 1445 Administer 30 minutes prior to infusion. Refrigerate. diazePAM 2 mg oral tablet (20 sources) Benzodiazepine Start: 07-22-20 End: 04-23-20 take 1 tablet by mouth three times daily as needed for muscle spasms Diazepam 2 MG tablet Discontinued 2 mg PO 3 TIMES DAILY NEEDED as needed for Spasms 90 0 July 22, 2020 12:00am April 23, 2021 3:26pm diphenhydrAMINE hydrochloride 25 mg oral capsule (12 sources) Histamine-1 Receptor Antagonist Start: 06-26-20 End: 06-26-20 take 1 dose by mouth once 25 mg, ORAL, ONCE, 1 dose, On 06/26/25 at 1230 Start: 06-12-2025 End: 06-12-2025 take 1 dose by mouth once 25 mg, ORAL, ONCE, 1 dose, O n 06/12/25 at 1400 Start: 05-29-2025 End: 05-29-2025 take 1 dose by mouth once 25 mg, ORAL, ONCE, 1 dose, O n 05/29/25 at 1430 Start: 05-02-2025 End: 05-02-2025 take 1 dose by mouth once 50 mg, ORAL, ONCE, 1 dose, O n Rosi 05/02/25 at 1030 Start: 04-17-2025 End: 04-17-2025 take 1 dose by mouth once 50 mg, ORAL, ONCE, 1 dose, O n 04/17/25 at 1600 Start: 04-03-2025 End: 04-03-2025 take 1 dose by mouth once 50 mg, ORAL, ONCE, 1 dose, O n 04/03/25 at 1430 Start: 03-21-2025 End: 03-21-2025 take 1 dose by mouth once 50 mg, ORAL, ONCE, 1 dose, O n Rosi 03/21/25 at 1400 Start: 03-15-2025 End: 03-15-2025 take 1 dose by mouth once 50 mg, ORAL, ONCE, 1 dose, O n 03/15/25 at 1500 Start: 03-08-2025 End: 03-08-2025 take 1 dose by mouth once 50 mg, ORAL, ONCE, 1 dose, O n 03/08/25 at 1330 Start: 02-15-2025 End: 02-15-2025 take 1 dose by mouth once 50 mg, ORAL, ONCE, 1 dose, O n 02/15/25 at 1430 Start: 02-08-2025 End: 02-08-2025 50 mg, INTRAVENOUS, ONCE, 1 dose, On Tue02/08/25 at 1430 Start: 01-25-2025 End: 01-25-2025 50 mg, INTRAVENOUS, ONCE, 1 dose, On Tue01/25/25 at 1000 docusate sodium 50 mg oral capsule (20 sources) Start: 06-18-2020 End: 07-02-2020 take 1 capsule by mouth once daily Docusate Sodium (Stool Softener) 50 mg capsule Discontinued 50 mg PO DAILY June 18, 2020 12:00am July 02, 2020 3:55pm CONSTIPATION docusate sodium 50 mg / sennosides, intermediate 8.6 mg oral tablet (20 sources) Start: 07-22-2020 End: 01-01-2022 Sennosides-Docusate Sodium 1 TABLET tablet Discontinued 1 {tbl} PO DAILY July 22, 2020 12:00am January 01, 2022 10:08am Start: 07-22-2020 End: 01-01-2022 take 1 tablet by mouth once daily Sennosides-Docusate Sodium Discontinued 1 TABLET PO DAILY July 21, 2020 11:00pm January 01, 2022 9:08am Start: 07-02-2020 End: 07-22-2020 Sennosides-Docusate Sodium 1 TABLET tablet Discontinued 2 {tbl} PO AT BEDTIME July 03, 2020 4:55pm July 22, 2020 7:32pm Constipation Start: 07-02-2020 End: 07-22-2020 take 2 tablets by mouth at bedtime Sennosides-Docusate Sodium Discontinued 2 TABLET PO AT BEDTIME July 03, 2020 3:55pm July 22, 2020 6:32pm doxycycline monohydrate 100 mg oral capsule (20 sources) Tetracycline-class Drug Start: 02-15-2025 End: 02-22-2025 take 1 capsule by mouth twice daily doxycycline monohydrate (MONODOX) 100 mg capsule Take 1 capsule by mouth two times a day for 7 days. 14 capsule 02/15/2025 02/22/2025 Discontinued Start: 12-19-2023 End: 12-18-2024 take 1 capsule by mouth twice daily Doxycycline Monohydrate 100 mg capsule Discontinued 100 mg PO TWICE A DAY December 19, 2023 12:00am December 18, 2024 8:50pm Start: 01-01-2022 End: 06-08-2022 take 1 tablet by mouth twice daily Doxycycline Hyclate 100 mg tablet Discontinued 100 mg PO TWICE A DAY January 01, 2022 12:00am June 08, 2022 10:12am DULoxetine 60 mg delayed release oral capsule (20 sources) Serotonin and Norepinephrine Reuptake Inhibitor Start: 07-22-2020 End: 04-23-2021 take 1 capsule by mouth once daily Duloxetine 60 MG capsule Discontinued 60 mg PO DAILY 30 0 July 22, 2020 12:00am April 23, 2021 3:26pm 0.4 ml enoxaparin sodium 100 mg/ml prefilled syringe (20 sources) Low Molecular Weight Heparin Start: 08-08-2020 End: 04-23-2021 Enoxaparin 40 MG/0.4 ML syringe Discontinued 40 mg SC DAILY@0600 August 08, 2020 12:00am April 23, 2021 3:25pm Start: 07-02-2020 End: 07-22-2020 Enoxaparin 40 MG/0.4 ML syri nge Discontinued 40 mg SC DAILY July 03, 2020 4:55pm July 22, 2020 7:28pm Blood thinner ESSENTIAL OILS (2 sources) Start: 02-22-2017 ESSENTIAL OILS as directed ESSENTIAL OILS Meenu Sofia LPN famciclovir 500 mg oral tablet (20 sources) Herpes Simplex Virus Nucleoside Analog DNA Polymerase Inhibitor Start: 12-14-2021 End: 12-21-2021 take 1 tablet by mouth every eight hours Famciclovir 500 mg tablet Discontinued 500 mg PO Q8H 21 7 0 December 14, 2021 1:00am December 20, 2021 1:00am December 21, 2021 12:03am famotidine 20 mg oral tablet (20 sources) Histamine-2 Receptor Antagonist Start: 06-26-2025 End: 06-26-2025 take 1 dose by mouth once 20 mg, ORAL, ONCE, 1 dose, On Tue06/26/25 at 1230 Start: 06-14-2025 take 1 tablet by mikki th once daily famotidine (PEPCID) 20 mg tablet Take 1 tablet by mouth once daily. 30 tablet 5 06/14/2025 Active Start: 06-12-2025 End: 06-12-2025 take 1 dose by mouth once 20 mg, ORAL, ONCE, 1 dose, O n Tue06/12/25 at 1400 Start: 05-29-2025 End: 08-20-2025 take 1 dose by mouth once 20 mg, ORAL, ONCE, 1 dose, O n 05/29/25 at 1430 Start: 05-02-2025 End: 05-02-2025 take 1 dose by mouth once 20 mg, ORAL, ONCE, 1 dose, O n Rosi 05/02/25 at 1030 Start: 04-17-2025 End: 04-17-2025 take 1 dose by mouth once 20 mg, ORAL, ONCE, 1 dose, O n 04/17/25 at 1600 Start: 04-03-2025 End: 04-03-2025 take 1 dose by mouth once 20 mg, ORAL, ONCE, 1 dose, O n 04/03/25 at 1430 Start: 03-21-2025 End: 03-21-2025 take 1 dose by mouth once 20 mg, ORAL, ONCE, 1 dose, O n Rosi 03/21/25 at 1400 Start: 03-15-2025 End: 03-15-2025 take 1 dose by mouth once 20 mg, ORAL, ONCE, 1 dose, O n 03/15/25 at 1500 Start: 03-08-2025 End: 03-08-2025 take 1 dose by mouth once 20 mg, ORAL, ONCE, 1 dose, O n 03/08/25 at 1330 Start: 02-15-2025 End: 02-15-2025 take 1 dose by mouth once 20 mg, ORAL, ONCE, 1 dose, O n 02/15/25 at 1430 Start: 02-08-2025 End: 02-08-2025 20 mg, INTRAVENOUS, ONCE, 1 dose, On Tue02/08/25 at 1430, REFRIGERATE Start: 01-25-2025 End: 01-25-2025 20 mg, INTRAVENOUS, ONCE, 1 dose, On Tue01/25/25 at 1000, REFRIGERATE Start: 07-22-2020 End: 07-26-2022 take 1 tablet by mouth twice daily Famotidine 20 MG tablet Discontinued 20 mg PO TWICE A DAY 60 0 July 22, 2020 12:00am July 26, 2022 9:13am End: 03-08-2023 take 1 tablet by mouth once daily famotidine (PEPCID) 20 mg tablet Take 20 mg by mouth once daily. 0 03/08/2023 Discontinued Comment on above: Take 20 mg by mouth once daily. ferrous sulfate (SLOW FE) 137 mg (45 mg iron) TbER (1 source) End: 06-21-2024 take 1 tablet by mouth once daily ferrous sulfate (SLOW FE) 137 mg (45 mg iron) TbER Take 1 tablet by mouth once daily. 06/21/2024 Discontinued furosemide 40 mg oral tablet (20 sources) Loop Diuretic Start: 07-26-2022 End: 01-24-2025 take 1 tablet by mouth once daily as needed Furosemide 40 mg tablet Discontinued 40 mg PO DAILY NEEDED July 26, 2022 12:00am December 23, 2024 11:41am SWELLING gabapentin 100 mg oral capsule (20 sources) Anti-epileptic Agent Start: 12-14-2021 End: 01-01-2022 take 1 capsule by mouth once daily at bedtime, then take 1 capsule by mouth twice daily Gabapentin 100 mg capsule Discontinued 100 mg PO TWICE A DAY 60 0 December 14, 2021 1:00am January 01, 2022 10:11am Take one capsule at bedtime on first day then take one capsule twice a day thereafter. Glucos Sul 3fsw-Msv-Kcgbb-C-Mn (Glucosamine Chondroitin) 550-30-1 mg capsule (20 sources) Start: 07-26-2022 End: 12-18-2024 Glucos Sul 6jjf-Bsu-Ukvmr-C-Mn (Glucosamine Chondroitin) 550-30-1 mg capsule Discontinued 1 NMA PO July 26, 2022 12:00am December 18, 2024 11:11pm Start: 07-26-2022 Glucos Sul 2kc s-Wlw-Dqwit-C-Mn (Glucosamine Chondroitin) 550-30-1 mg capsule Active 1 NMA PO July 26, 2022 12:00am Start: 07-26-2022 Glucos Sul 2kc x-Xnl-Rybll-C-Mn (Glucosamine Chondroitin) 550-30-1 mg capsule Active 1 CAP PO July 25, 2022 11:00pm Start: 07-26-2022 Glucos Sul 2kc w-Vbt-Vaxpy-C-Mn (Glucosamine Chondroitin) 550-30-1 mg capsule Active 1 CAP PO July 26, 2022 12:00am glucosamine HCl/chondroitin brice (GLUCOSAMINE-CHONDROITIN ORAL) (20 sources) End: 08-13-2024 take 1 capsule by mouth once daily glucosamine HCl/chondroitin brice (GLUCOSAMINE-CHONDROITIN ORAL) Take 1 capsule by mouth once daily. 08/13/2024 Discontinued (Course of therapy completed) take 1 capsule by mo uth once daily glucosamine HCl/chondroitin brice (GLUCOSAMINE-CHONDROITIN ORAL) Take 1 capsule by mouth once daily. Active take 1 capsule by mo uth once daily glucosamine HCl/chondroitin brice (GLUCOSAMINE-CHONDROITIN ORAL) Take 1 capsule by mouth once daily. 0 Active Comment on above: Take 1 capsule by mo uth once daily. haloperidol 1 mg oral tablet (20 sources) Typical Antipsychotic Start: 5 End: 5 take 0.5 mg by mouth three times daily Haloperidol 1 mg tablet Discontinued 0.5 mg PO THREE TIMES A DAY 21 14 0 December 26, 2024 12:06pm January 14, 2025 10:05am Start: 07-22-2020 End: 12-14-2021 take 1 tablet by mouth every eight hours Haloperidol 1 MG tablet Discontinued 1 mg PO Q8H 90 0 July 22, 2020 12:00am December 14, 2021 2:41pm Start: 06-28-2020 End: 07-02-2020 Haloperidol 0.5 MG tablet Discontinued 0.5 mg PO THREE TIMES A DAY June 28, 2020 12:00am July 02, 2020 3:55pm NAUSEA PT TO TAKE TID FOR 7 DAYS STARTING 06/27 THEN CHANGE TO TID PRN. hydrocortisone 25 mg/ml topical cream (20 sources) Corticosteroid Start: 06-18-2020 End: 06-28-2020 hydrocortisone Discontinued 0 .ROUTE .MEDSUPPLY 1 June 18, 2020 1:05pm June 28, 2020 10:58pm BID Start: 06-18-2020 End: 06-28-2020 hydrocortisone Discontinued 0 .ROUTE .MEDSUPPLY June 18, 2020 2:05pm June 28, 2020 11:58pm BID Start: 06-18-2020 End: 07-22-2020 Hydrocortisone 2.5 % cream w ith perineal applicator Discontinued 1 NMA RC 2 to 4 times per day as needed for hemorrhoids 28.35 1 June 18, 2020 2:05pm July 22, 2020 7:30pm Start: 06-18-2020 End: 06-18-2020 hydrocortisone Discontinued 0 .ROUTE .MEDSUPPLY June 17, 2020 11:00pm June 18, 2020 1:05pm BID Start: 06-18-2020 End: 06-18-2020 hydrocortisone Discontinued 0 .ROUTE .MEDSUPPLY 1 June 18, 2020 12:00am June 18, 2020 2:05pm BID Hydrocortisone / Lidocaine (20 sources) Antiarrhythmic, Corticosteroid, Amide Local Anesthetic Start: 06-18-2020 End: 06-28-2020 Hydrocortisone 2.5% / Lidocaine 5% Ointment (Cmpd) [Hydrocortisone 2.5%/Lidocaine 5% Ointment (Compound)] (Hydrocortisone ) ointment Discontinued 0 .ROUTE .MEDSUPPLY 1 2 June 18, 2020 2:05pm June 28, 2020 11:58pm BID Start: 06-18-2020 End: 06-28-2020 Hydrocortisone 2.5% / Lidoca ine 5% Ointment (Cmpd) [Hydrocortisone 2.5%/Lidocaine 5% Ointment (Compound)] (Hydrocortisone ) ointment Discontinued 0 .ROUTE .MEDSUPPLY 1 June 18, 2020 2:05pm June 28, 2020 11:58pm BID Start: 06-18-2020 End: 06-18-2020 Hydrocortisone 2.5% / Lidoca ine 5% Ointment (Cmpd) [Hydrocortisone 2.5%/Lidocaine 5% Ointment (Compound)] (Hydrocortisone ) ointment Discontinued 0 .ROUTE .MEDSUPPLY 1 2 June 18, 2020 12:00am June 18, 2020 2:05pm BID Start: 06-18-2020 End: 06-18-2020 Hydrocortisone 2.5% / Lidoca ine 5% Ointment (Cmpd) [Hydrocortisone 2.5%/Lidocaine 5% Ointment (Compound)] (Hydrocortisone ) ointment Discontinued 0 .ROUTE .MEDSUPPLY 1 June 18, 2020 12:00am June 18, 2020 2:05pm BID PSEUDOEPHEDRINE-IBUPROFEN TABS (2 sources) alpha-Adrenergic Agonist, Nonsteroidal Anti-inflammatory Drug Start: 02-22-2017 ADVIL COLD/SINUS TABS as directed PSEUDOEPHEDRINE-IBUPROFEN TABS [id number] Meenu Sofia LPN lactobacillus acidophilus [id number] unt oral capsule (20 sources) Start: 08-19-2023 End: 12-18-2024 take 1 caps ule by mout h once sameer y Lactobacillus Acidophilus (Probiotic Gold Acidophilus) 1 billion cell capsule Discontinued 1000 NMA PO DAILY 30 0 August 19, 2023 1:00am December 18, 2024 11:11pm End: 06-21-2024 Lactobacillus acidophilus (P ROBIOTIC ORAL) Take 1 tablet by mouth as needed. 06/21/2024 Discontinued Lactobacillus ac idophilus (PROBIOTIC ORAL) Take 1 tablet by mouth as needed. Active Lactobacillus ac idophilus (PROBIOTIC ORAL) Take 1 tablet by mouth as needed. 0 Active take 1 tablet by mikki th once daily Lactobacillus acidophilus (PROBIOTIC ORAL) Take 1 tablet by mouth once daily. 0 Active Comment on above: Take 1 tablet by mikki th once daily. Take 1 tablet by mikki th as needed. lenalidomide 5 mg oral capsule (20 sources) Thalidomide Analog Start: 10-11-2024 End: 01-11-2025 lenalidomide (REVLIMID) 5 mg capsule Indications: Multiple myeloma not having achieved remission (HCC) TAKE 1 CAPSULE BY MOUTH DAILY FOR 21 DAYS, THEN 7 DAYS OFF 21 capsule 12/04/2024 01/11/2025 Discontinued Start: 03-21-2024 End: 08-13-2024 REVLIMID 5 mg capsule Indica tions: Multiple myeloma not having achieved remission (HCC) TAKE 1 CAPSULE BY MOUTH 1 TIME A DAY FOR 21 DAYS ON AND 7 DAYS OFF 21 capsule 06/20/2024 08/13/2024 Discontinued (Course of therapy completed) Start: 11-04-2023 End: 02-24-2024 REVLIMID 5 mg capsule Indica tions: Multiple myeloma not having achieved remission (HCC) TAKE 1 CAPSULE BY MOUTH 1 TIME A DAY FOR 21 DAYS ON AND 7 DAYS OFF 21 capsule 0 02/24/2024 Active Start: 07-14-2023 End: 09-12-2023 lenalidomide (REVLIMID) 5 mg capsule Indications: Multiple myeloma not having achieved remission (HCC) TAKE 1 CAPSULE BY MOUTH ONCE DAILY FOR 21 DAYS ON AND 7 DAYS OFF 21 capsule 0 09/12/2023 Active Start: 04-19-2023 End: 06-09-2023 lenalidomide (REVLIMID) 5 mg capsule Indications: Multiple myeloma not having achieved remission (HCC) TAKE 1 CAPSULE BY MOUTH ONCE DAILY FOR 21 DAYS ON AND 7 DAYS OFF 21 capsule 0 06/09/2023 Active Start: 06-02-2022 End: 04-15-2023 lenalidomide (REVLIMID) 5 mg capsule Indications: Multiple myeloma not having achieved remission (HCC) TAKE 1 CAPSULE BY MOUTH ONCE DAILY FOR 21 DAYS ON AND 7 DAYS OFF 21 capsule 0 02/16/2023 03/24/2023 Discontinued Start: 04-07-2022 End: 05-11-2022 lenalidomide (REVLIMID) 5 mg capsule Indications: Multiple myeloma not having achieved remission (HCC) TAKE 1 CAPSULE BY MOUTH 1 TIME A DAY FOR 21 DAYS ON THEN 7 DAYS OFF 21 capsule 0 05/11/2022 Active Start: 12-24-2021 End: 03-05-2022 lenalidomide (REVLIMID) 5 mg capsule Indications: Multiple myeloma not having achieved remission (HCC) TAKE 1 CAPSULE BY MOUTH ONCE DAILY FOR 21 DAYS ON THEN 7 DAYS OFF 21 capsule 0 03/05/2022 Active Start: 08-08-2020 End: 01-01-2022 take 1 capsule by mouth once daily Lenalidomide 25 MG capsule Discontinued 25 mg PO DAILY August 08, 2020 12:00am January 01, 2022 10:10am Comment on above: TAKE 1 CAPSULE BY MO UTH ONCE DAILY FOR 21 DAYS ON AND 7 DAYS OFF TAKE 1 CAPSULE BY MO UTH ONCE DAILY FOR 21 DAYS ON THEN 7 DAYS OFF TAKE 1 CAPSULE BY MO UTH 1 TIME A DAY FOR 21 DAYS ON THEN 7 DAYS OFF TAKE 1 CAPSULE BY MO UTH 1 TIME A DAY FOR 21 DAYS ON AND 7 DAYS OFF levoFLOXacin 500 mg oral tablet (20 sources) Quinolone Antimicrobial Start: 02-21-20 End: 07-05-20 take 1 tablet by mouth every twenty-four hours Levofloxacin 500 mg tablet Discontinued 500 mg PO Q24H 7 February 20, 2025 12:00am July 05, 2025 3:09pm Start: 02-22-2017 End: 03-15-2025 take 1 tablet by mouth once daily Levofloxacin 500 mg tablet Discontinued 500 mg PO DAILY November 14, 2023 1:00am December 18, 2024 11:11pm loratadine 10 mg oral tablet (20 sources) Start: 08-08-2020 End: 01-01-2022 take 1 tablet by mouth once daily Loratadine 10 MG tablet Discontinued 10 mg PO DAILY August 08, 2020 12:00am January 01, 2022 10:29am Magnesium glycinate (20 sources) End: 01-24-2025 take 400 mg by mouth once MAGNESIUM GLYCINATE ORAL Take 400 mg by mouth one time only. 01/24/2025 Discontinued take 400 mg by mouth once MAGNES IUM GLYCINATE ORAL Take 400 mg by mouth one time only. Active meclizine hydrochloride 25 mg oral tablet (20 sources) Antiemetic Start: 12-18-2024 End: 12-23-2024 take 1 tablet by mouth three times daily Meclizine 25 mg tablet Discontinued 25 mg PO THREE TIMES A DAY December 18, 2024 12:00am December 23, 2024 11:41am menthol 0.0044 mg/mg / zinc oxide 0.206 mg/mg topical ointment (6 sources) Start: 07-22-2020 End: 12-18-2024 Menthol-Zinc Oxide 1 APPLIC ointment Discontinued 1 NMA TOPICAL 0600,1800 0 July 22, 2020 12:00am December 18, 2024 11:12pm Please contact the information source for Protocol details. Start: 07-22-2020 Menthol-Zinc O xide Active 1 APPLIC TOPICAL 0600,1800 July 21, 2020 11:00pm Menthol-Zinc Oxide 1 APPLIC ointment (17 sources) Start: 07-22-2020 End: 12-18-2024 Menthol-Zinc Oxide 1 APPLIC ointment Discontinued 1 NMA TOPICAL 0600,1800 0 July 22, 2020 12:00am December 18, 2024 11:12pm Please contact the information source for Protocol details. Start: 07-22-2020 End: 12-18-2024 Menthol-Zinc Oxide 1 APPLIC ointment Discontinued 1 NMA TOPICAL 0600,1800 July 22, 2020 12:00am December 18, 2024 11:12pm Please contact the information source for Protocol details. methadone hydrochloride 5 mg oral tablet (20 sources) Opioid Agonist Start: 05-15-2025 End: 08-13-2025 take 1 tablet by mouth every eight hours methadone (DOLOPHINE) 5 mg tablet Take 1 tablet by mouth every 8 hours for 90 days. 05/15/2025 06/12/2025 Discontinued Start: 01-01-2022 End: 07-26-2022 take 1 tablet by mouth every twelve hours Methadone 10 mg tablet Discontinued 10 mg PO Q12H 0 January 01, 2022 10:09am July 26, 2022 9:13am Start: 04-23-2021 End: 01-01-2022 take 1 tablet by mouth once daily Methadone 10 mg tablet Discontinued 10 mg PO DAILY 0 April 23, 2021 12:00am January 01, 2022 10:11am Start: 10-23-2020 take 1 tablet by mikki th twice daily methadone (DOLOPHINE) 5 mg tablet Take 10 mg by mouth twice daily. Taking 5 mg tablet 1 1/2 tablet in morning and 1 tablet evening 0 10/23/2020 Active take 1 tablet by mikki th every twelve hours as needed methadone (DOLOPHINE) 5 mg tablet Take 5 mg by mouth two times a day as needed for pain (1/2 tab 3x day). 0 Active End: 01-11-2025 take 2.5 mg by mouth twice daily methadone (DOLOPHINE) 5 mg tablet Take 2.5 mg by mouth two times a day. 01/11/2025 Discontinued Comment on above: Take 10 mg by mouth twice daily. Taking 5 mg tablet 1 1/2 tablet in morning and 1 tablet evening methocarbamol 500 mg oral tablet (20 sources) Muscle Relaxant Start: 2019 End: 2021 take 1 tablet by mouth three times daily Methocarbamol 500 MG tablet Discontinued 500 mg PO THREE TIMES A DAY 90 July 22, 2020 12:00am December 14, 2021 2:40pm methylPREDNISolone 4 mg oral tablet (3 sources) Corticosteroid Start: 2024 End: 2024 take 1 tablet by mouth once Methylprednisolone (Medrol (Herve)) 4 mg tablets,dose pack Discontinued 0 PO per package directions 21 July 02, 2025 12:00am July 05, 2025 3:04pm PO PER PKG DIR metoclopramide 10 mg oral tablet (20 sources) Dopamine-2 Receptor Antagonist Start: 2024 End: 2024 take 1 tablet by mouth four times daily metoclopramide HCl (REGLAN) 10 mg tablet Take 10 mg by mouth four times daily. 01/01/2025 01/24/2025 Discontinued Start: 12-23-2024 End: 01-14-2025 take 1 tablet by mouth every six hours Metoclopramide Hcl 5 mg tablet Discontinued 5 mg PO EVERY 6 HOURS 224 56 0 December 26, 2024 12:06pm February 19, 2025 12:00am January 14, 2025 10:05am montelukast 10 mg oral tablet (20 sources) Leukotriene Receptor Antagonist Start: 01-28-2025 End: 05-26-2025 take 1 tablet by mouth once daily montelukast (SINGULAIR) 10 mg tablet Take 1 tablet by mouth once daily. 30 tablet 2 02/25/2025 04/03/2025 Discontinued (Other) morphine sulfate 20 mg/ml oral solution (20 sources) Opioid Agonist Start: 06-28-2020 End: 07-02-2020 Morphine Concentrate 10 MG/0.5 ML syringe Discontinued 6 mg SL EVERY 4 HOURS NEEDED as needed for Pain Or Fever June 28, 2020 12:00am July 02, 2020 3:56pm Start: 06-13-2020 End: 06-18-2020 Morphine 15 mg tablet extend ed release Discontinued PO 0 June 13, 2020 12:00am June 18, 2020 1:34pm Start: 06-13-2020 End: 06-18-2020 Morphine Discontinued PO Jun 11:00pm June 18, 2020 12:34pm MULTIVITAMIN ORAL (12 sources) take 1 tablet by mouth once daily MULTIVITAMIN ORAL Take 1 tablet by mouth once daily. 0 Active Comment on above: Take 1 tablet by mikki th once daily. Multivitamin With Iron (Daily Vitamin With Iron) tablet (20 sources) Start: 06-13-2020 End: 06-18-2020 Multivitamin With Iron (Daily Vitamin With Iron) tablet Discontinued 1 {tbl} PO DAILY June 13, 2020 12:00am June 18, 2020 1:34pm Start: 06-13-2020 End: 06-18-2020 take 1 tablet by mouth once daily Multivitamin With Iron (Daily Vitamin With Iron) tablet Discontinued 1 TABLET PO DAILY June 12, 2020 11:00pm June 18, 2020 12:34pm Start: 06-13-2020 End: 06-18-2020 take 1 tablet by mouth once daily Multivitamin With Iron (Daily Vitamin With Iron) tablet Discontinued 1 TABLET PO DAILY June 13, 2020 12:00am June 18, 2020 1:34pm OLANZapine 5 mg oral tablet (20 sources) Atypical Antipsychotic Start: 07-26-2022 End: 12-23-2024 take 1 tablet by mouth once daily Olanzapine 5 mg tablet Discontinued 5 mg PO DAILY July 26, 2022 12:00am December 23, 2024 11:42am Comment on above: Take 5 mg by mouth a s needed. Take 5 mg by mouth d aily at bedtime. Take 5 mg by mouth a t bedtime as needed. omeprazole 40 mg delayed release oral capsule (20 sources) Proton Pump Inhibitor Start: 02-02-2023 End: 06-14-2025 take 1 capsule by mouth once daily Omeprazole 40 mg capsule,delayed release(DR/EC) Discontinued 40 mg PO DAILY December 18, 2024 12:00am December 23, 2024 11:42am Comment on above: Take 1 capsule by mo ut once daily. Take 1 capsule by mo ut once daily take 1 capsule by mo uth every day oxyCODONE hydrochloride 5 mg oral tablet (20 sources) Opioid Agonist Start: 07-22-2020 End: 07-22-2020 take 15-20 mg by mouth every four hours as needed for pain Oxycodone 5 MG tablet Discontinued 15 - 20 mg PO EVERY 4 HOURS NEEDED as needed for Pain Score 4-10/10 30 7 July 22, 2020 July 09, 2020 12:00am July 22, 2020 7:32pm Fracture Of Thoracic Spine Multiple myeloma without remission Multiple myeloma not having achieved remission polyethylene glycol 3350 32961 mg powder for oral solution (20 sources) Osmotic Laxative Start: 08-08-2020 End: 01-01-2022 take 17 g by mouth once daily as needed Polyethylene Glycol 3350 17 GM packet Discontinued 17 g PO DAILY NEEDED as needed for CONSTIPTION August 08, 2020 10:29pm January 01, 2022 10:09am Start: 07-02-2020 End: 08-08-2020 take 17 g by mouth twice daily Polyethylene Glycol 335 0 17 GM packet Discontinued 17 g PO TWICE A DAY 30 0 July 22, 2020 7:33pm August 08, 2020 10:29pm Constipation Start: 06-18-2020 End: 07-02-2020 Polyethylene Glycol 3350 (Mi ralax) 17 gram/dose powder Discontinued 17 g PO DAILY June 18, 2020 12:00am July 02, 2020 3:54pm CONSTIPATION potassium chloride 10 meq extended release oral tablet (20 sources) Start: 08-27-2024 End: 01-24-2025 potassium chloride (K-TAB) 1 0 mEq tablet Take 1 tablet by mouth as needed. 08/27/2024 01/24/2025 Discontinued Start: 04-15-2022 take 1 tablet by mikki twice daily KLOR-CON M20 20 mEq tablet TAKE 1 TABLET BY MOUTH TWICE A DAY 60 tablet 2 04/15/2022 Active Start: 10-20-2021 take 1 tablet by mikki th twice daily KLOR-CON M20 20 mEq tablet TAKE 1 TABLET BY MOUTH TWICE A DAY 60 tablet 0 10/20/2021 Active Comment on above: TAKE 1 TABLET BY MIKKI TH TWICE A DAY pregabalin 75 mg oral capsule (20 sources) Start: 08-08-2020 End: 12-14-2021 take 1 capsule by mouth twice daily Pregabalin 75 MG capsule Discontinued 75 mg PO TWICE A DAY August 08, 2020 12:00am December 14, 2021 2:40pm Start: 06-28-2020 End: 07-22-2020 take 1 capsule by mouth three times daily Pregabalin 75 MG capsule Discontinued 75 mg PO THREE TIMES A DAY 20 0 July 02, 2020 4:02pm July 22, 2020 7:32pm Pain Comment on above: Take 1 capsule by [facility] twice daily for 30 days. prochlorperazine 10 mg oral tablet (20 sources) Phenothiazine Start: 024 End: 025 take 1 tablet by mouth every six hours as needed prochlorperazine (COMPAZINE) 10 mg tablet TAKE 1 TABLET BY MOUTH EVERY 6 HOURS NEEDED 90 tablet 2 09/24/2024 01/11/2025 Discontinued Start: 11-30-2023 End: 03-22-2024 take 1 tablet by mouth every six hours as needed prochlorperazine (COMPAZINE) 10 mg tablet Take 1 tablet by mouth every 6 hours as needed. 30 tablet 2 11/30/2023 03/22/2024 Discontinued (Other) Comment on above: Take 1 tablet by mikki every 6 hours as needed. risperiDONE 0.25 mg oral tablet (20 sources) Atypical Antipsychotic Start: 08-13-20 24 End: 01-12-20 take 2 tablets by mouth once daily at bedtime risperiDONE (RISPERDAL) 0.25 mg tablet TAKE 2 TABLETS BY MOUTH ONCE DAILY AT BEDTIME 60 tablet 11/12/2024 01/11/2025 Discontinued Start: 07-26-2024 End: 08-13-2024 take 1 tablet by mouth once daily at bedtime risperiDONE (RISPERDAL) 0.25 mg tablet Take 0.25 mg by mouth daily at bedtime. 07/26/2024 08/13/2024 Discontinued 72 hr scopolamine 0.0139 mg/hr transdermal system (20 sources) Anticholinergic Start: 12-18-2024 End: 07-05-2025 Scopolamine Base 1 mg over 3 days patch 3 day Discontinued 1 NMA TOPICAL Q72H December 18, 2024 12:00am July 05, 2025 3:12pm LAST PLACED 12/18/24 Start: 11-15-2024 End: 03-15-2025 scopolamine (TRANSDERM-SCOP) patch 1.5 mg/72 hr (delivers 1 mg over 3 days) Apply 1 patch as directed every 72 hours. 11/15/2024 03/15/2025 Discontinued sertraline 25 mg oral tablet (20 sources) Serotonin Reuptake Inhibitor Start: 04-23-2021 End: 01-01-2022 take 1 tablet by mouth once daily Sertraline 25 mg tablet Discontinued 25 mg PO DAILY April 23, 2021 12:00am January 01, 2022 10:08am 1000 ml sodium chloride 9 mg/ml injection (20 sources) Start: 06-14-2025 End: 06-14-2025 1,000 mL/hr (rounded to 999 mL/hr), INTRAVENOUS, Administer over 1 Hours, ONCE, 1 dose, On Tue06/14/25 at 1330 Start: 06-12-2025 End: 06-12-2025 1,000 mL/hr (rounded to 999 mL/hr), INTRAVENOUS, Administer over 1 Hours, ONCE, 1 dose, On Tue06/12/25 at 1400 Start: 06-07-2025 End: 06-07-2025 1,000 mL/hr (rounded to 999 mL/hr), INTRAVENOUS, Administer over 1 Hours, ONCE, 1 dose, On Tue06/07/25 at 1430 Start: 06-03-2025 End: 06-03-2025 1,000 mL/hr (rounded to 999 mL/hr), INTRAVENOUS, Administer over 1 Hours, ONCE, 1 dose, On Tue06/03/25 at 1430 Start: 05-31-2025 End: 05-31-2025 1,000 mL/hr (rounded to 999 mL/hr), INTRAVENOUS, Administer over 1 Hours, ONCE, 1 dose, On Tue05/31/25 at 1330 Start: 05-29-2025 End: 05-29-2025 1,000 mL, INTRAVENOUS, at 99 9 mL/hr, Administer over 1 Hours, ONCE, 1 dose, On Tue05/29/25 at 1500 Start: 05-27-2025 End: 05-27-2025 1,000 mL/hr (rounded to 999 mL/hr), INTRAVENOUS, Administer over 1 Hours, ONCE, 1 dose, On Tue05/27/25 at 1400 Start: 05-24-2025 End: 05-24-2025 1,000 mL/hr (rounded to 999 mL/hr), INTRAVENOUS, Administer over 1 Hours, ONCE, 1 dose, On Tue05/24/25 at 1130 Start: 05-22-2025 End: 05-22-2025 1,000 mL/hr (rounded to 999 mL/hr), INTRAVENOUS, Administer over 1 Hours, ONCE, 1 dose, On Tue05/22/25 at 1400 Start: 05-20-2025 End: 05-20-2025 1,000 mL/hr (rounded to 999 mL/hr), INTRAVENOUS, Administer over 1 Hours, ONCE, 1 dose, On Tue05/20/25 at 0930 Start: 05-10-2025 End: 05-10-2025 1,000 mL/hr (rounded to 999 mL/hr), INTRAVENOUS, Administer over 1 Hours, ONCE, 1 dose, On Tue05/10/25 at 1000 Start: 05-08-2025 End: 05-08-2025 1,000 mL/hr (rounded to 999 mL/hr), INTRAVENOUS, Administer over 1 Hours, ONCE, 1 dose, On Tue05/08/25 at 0900 Start: 05-06-2025 End: 05-06-2025 1,000 mL/hr (rounded to 999 mL/hr), INTRAVENOUS, Administer over 1 Hours, ONCE, 1 dose, On Tue05/06/25 at 1000 Start: 05-02-2025 End: 05-02-2025 1,000 mL/hr (rounded to 999 mL/hr), INTRAVENOUS, Administer over 1 Hours, ONCE, 1 dose, On Tue05/02/25 at 1030 Start: 04-25-2025 End: 04-25-2025 1,000 mL/hr (rounded to 999 mL/hr), INTRAVENOUS, Administer over 1 Hours, ONCE, 1 dose, On Tue04/25/25 at 1330 Start: 04-24-2025 End: 04-24-2025 1,000 mL/hr (rounded to 999 mL/hr), INTRAVENOUS, Administer over 1 Hours, ONCE, 1 dose, On Tue04/24/25 at 1130 Start: 04-22-2025 End: 04-22-2025 1,000 mL/hr (rounded to 999 mL/hr), INTRAVENOUS, Administer over 1 Hours, ONCE, 1 dose, On Tue04/22/25 at 1000 Start: 04-19-2025 End: 04-19-2025 1,000 mL/hr (rounded to 999 mL/hr), INTRAVENOUS, Administer over 1 Hours, ONCE, 1 dose, On Tue04/19/25 at 0800 Start: 04-17-2025 End: 04-17-2025 1,000 mL/hr (rounded to 999 mL/hr), INTRAVENOUS, Administer over 1 Hours, ONCE, 1 dose, On Tue04/17/25 at 1530 Start: 04-15-2025 End: 04-15-2025 1,000 mL/hr (rounded to 999 mL/hr), INTRAVENOUS, Administer over 1 Hours, ONCE, 1 dose, On Tue04/15/25 at 0930 Start: 04-11-2025 End: 04-11-2025 1,000 mL/hr (rounded to 999 mL/hr), INTRAVENOUS, Administer over 1 Hours, ONCE, 1 dose, On Tue04/11/25 at 1330 Start: 04-10-2025 End: 04-10-2025 1,000 mL/hr (rounded to 999 mL/hr), INTRAVENOUS, Administer over 1 Hours, ONCE, 1 dose, On Tue04/10/25 at 0930 Start: 04-08-2025 End: 04-08-2025 1,000 mL/hr (rounded to 999 mL/hr), INTRAVENOUS, Administer over 1 Hours, ONCE, 1 dose, On Tue04/08/25 at 1030 Start: 04-05-2025 End: 04-05-2025 1,000 mL/hr (rounded to 999 mL/hr), INTRAVENOUS, Administer over 1 Hours, ONCE, 1 dose, On Tue04/05/25 at 1300 Start: 04-03-2025 End: 04-03-2025 1,000 mL/hr (rounded to 999 mL/hr), INTRAVENOUS, Administer over 1 Hours, ONCE, 1 dose, On Tue04/03/25 at 1430 Start: 04-01-2025 End: 04-01-2025 1,000 mL/hr (rounded to 999 mL/hr), INTRAVENOUS, Administer over 1 Hours, ONCE, 1 dose, On Tue04/01/25 at 1400 Start: 03-29-2025 End: 03-29-2025 1,000 mL/hr (rounded to 999 mL/hr), INTRAVENOUS, Administer over 1 Hours, ONCE, 1 dose, On Tue03/29/25 at 1500 Start: 03-27-2025 End: 03-27-2025 1,000 mL/hr (rounded to 999 mL/hr), INTRAVENOUS, Administer over 1 Hours, ONCE, 1 dose, On Tue03/27/25 at 1400 Start: 03-25-2025 End: 03-25-2025 1,000 mL/hr (rounded to 999 mL/hr), INTRAVENOUS, Administer over 1 Hours, ONCE, 1 dose, On Tue03/25/25 at 1530 Start: 03-20-2025 End: 03-21-2025 1,000 mL/hr (rounded to 999 mL/hr), INTRAVENOUS, Administer over 1 Hours, ONCE, 1 dose, On Tue03/21/25 at 1330 Start: 03-18-2025 End: 03-18-2025 1,000 mL/hr (rounded to 999 mL/hr), INTRAVENOUS, Administer over 1 Hours, ONCE, 1 dose, On Tue03/18/25 at 1400 Start: 03-15-2025 End: 03-15-2025 1,000 mL/hr (rounded to 999 mL/hr), INTRAVENOUS, Administer over 1 Hours, ONCE, 1 dose, On Tue03/15/25 at 1500 Start: 03-11-2025 End: 03-11-2025 1,000 mL/hr (rounded to 999 mL/hr), INTRAVENOUS, Administer over 1 Hours, ONCE, 1 dose, On Tue03/11/25 at 1330 Start: 03-08-2025 End: 03-08-2025 1,000 mL/hr (rounded to 999 mL/hr), INTRAVENOUS, Administer over 1 Hours, ONCE, 1 dose, On Tue03/08/25 at 1330 Start: 03-05-2025 End: 03-05-2025 1,000 mL/hr (rounded to 999 mL/hr), INTRAVENOUS, Administer over 1 Hours, ONCE, 1 dose, On Tue03/05/25 at 1500 Start: 02-25-2025 End: 02-25-2025 1,000 mL/hr (rounded to 999 mL/hr), INTRAVENOUS, Administer over 1 Hours, ONCE, 1 dose, On Tue02/25/25 at 1400 Start: 02-22-2025 End: 02-22-2025 1,000 mL/hr (rounded to 999 mL/hr), INTRAVENOUS, Administer over 1 Hours, ONCE, 1 dose, On Tue02/22/25 at 1100 Start: 02-20-2025 End: 02-20-2025 1,000 mL/hr (rounded to 999 mL/hr), INTRAVENOUS, Administer over 1 Hours, ONCE, 1 dose, On Tue02/20/25 at 1330 Start: 02-15-2025 End: 02-15-2025 1,000 mL/hr (rounded to 999 mL/hr), INTRAVENOUS, Administer over 1 Hours, ONCE, 1 dose, On Tue02/15/25 at 1430 Start: 02-13-2025 End: 02-13-2025 1,000 mL/hr (rounded to 999 mL/hr), INTRAVENOUS, Administer over 1 Hours, ONCE, 1 dose, On Tue02/13/25 at 1330 Start: 02-11-2025 End: 02-11-2025 1,000 mL/hr (rounded to 999 mL/hr), INTRAVENOUS, Administer over 1 Hours, ONCE, 1 dose, On Tue02/11/25 at 1400 Start: 02-08-2025 End: 02-08-2025 1,000 mL/hr (rounded to 999 mL/hr), INTRAVENOUS, Administer over 1 Hours, ONCE, 1 dose, On Tue02/08/25 at 1500 Start: 02-06-2025 End: 02-06-2025 1,000 mL/hr (rounded to 999 mL/hr), INTRAVENOUS, Administer over 1 Hours, ONCE, 1 dose, On Tue02/06/25 at 1200 Start: 02-04-2025 End: 02-04-2025 1,000 mL/hr (rounded to 999 mL/hr), INTRAVENOUS, Administer over 1 Hours, ONCE, 1 dose, On Tue02/04/25 at 1330 Start: 12-03-2020 End: 03-05-2022 sodium chloride 0.9 % (flush ) 10 mL (BD POSIFLUSH) sucralfate 1000 mg oral tablet (20 sources) Aluminum Complex Start: 03-08-2023 End: 06-22-2024 take 1 tablet by mouth four times daily sucralfate (CARAFATE) 1 gram tablet Take 1 tablet by mouth four times daily. (mixed with a little bit of water to make a slurry). 120 tablet 5 03/08/2023 06/22/2024 Discontinued Comment on above: Take 1 tablet by mikki th four times daily. (mixed with a little bit of water to make a slurry). vancomycin 125 mg oral capsule (19 sources) Glycopeptide Antibacterial Start: 12-26-2024 End: 01-14-2025 take 1 capsule by mouth every six hours Vancomycin 125 mg capsule Discontinued 125 mg PO EVERY 6 HOURS 40 10 1 December 26, 2024 12:00am January 14, 2025 10:05am 24 hr venlafaxine 37.5 mg extended release oral capsule (20 sources) Serotonin and Norepinephrine Reuptake Inhibitor Start: 05-03-2023 End: 01-11-2025 take 3 capsules by mouth once daily venlafaxine ER (EFFEXOR XR) 37.5 mg 24 hr capsule Take three capsules by mouth once daily. 05/03/2023 01/11/2025 Discontinued Comment on above: Take 37.5 mg by mout h once daily. 3 tablets in am Take three capsules by mouth once daily. VITAMIN B COMPLEX ORAL (20 sources) End: 06-22-2024 take 1 tablet by mouth once daily VITAMIN B COMPLEX ORAL Take 1 tablet by mouth once daily. 06/22/2024 Discontinued take 1 tablet by mouth once sameer y VITAMIN B COMPLEX ORAL Take 1 tablet by mouth once daily. Active take 1 tablet by mouth once sameer y VITAMIN B COMPLEX ORAL Take 1 tablet by mouth once daily. 0 Active Comment on above: Take 1 tablet by mikki th once daily. Zinc (20 sources) End: 06-22-2024 take 50 mg by mouth once daily ZINC ORAL Take 50 mg by mouth once daily. 06/22/2024 Discontinued take 50 mg by mouth once daily Z INC ORAL Take 50 mg by mouth once daily. Active take 50 mg by mouth once daily Z INC ORAL Take 50 mg by mouth once daily. 0 Active Comment on above: Take 50 mg by mouth once daily. 100 ml zoledronic acid 0.04 mg/ml injection (20 sources) Bisphosphonate Start: 06-12-2025 End: 06-12-2025 4 mg, INTRAVENOUS, Administer over 15 Minutes, ONCE, 1 dose, On Tue06/12/25 at 1430, Hazardous Potential Reproductive Risk Drug: Use appropriate PPE. Start: 04-19-2025 End: 04-19-2025 4 mg, INTRAVENOUS, Administe r over 15 Minutes, ONCE, 1 dose, On Tue04/19/25 at 0830, Hazardous Potential Reproductive Risk Drug: Use appropriate PPE. Start: 11-16-2024 End: 11-16-2024 4 mg, INTRAVENOUS, Administe r over 15 Minutes, ONCE, 1 dose, On Tue11/16/24 at 1330, Hazardous Potential Reproductive Risk Drug: Use appropriate PPE. Start: 08-23-2024 End: 08-23-2024 4 mg, INTRAVENOUS, Administe r over 15 Minutes, ONCE, 1 dose, On Tue08/23/24 at 1530, Hazardous Potential Reproductive Risk Drug: Use appropriate PPE. Start: 08-08-2020 End: 04-23-2021 take 4 mg intravenously every month Zoledronic Acid 4 MG recon soln Discontinued 4 mg IV EVERY MONTH August 08, 2020 12:00am April 23, 2021 3:26pm Problems Active Problems Problem Classification Problem Date Documented Da te Episodic/Chronic Acute and unspecified renal failure (20 sources) Injury of kidney; Translations: [Acute kidney failure, unspecified] 08-09-2020 Episodic Acute bronchitis (20 sources) Acute bronchitis; Translations: [Acute bronchitis, unspecified] Onset: 5 04-28-2023 Episodic Biliary tract disease (1 source) Calculus of bile duct without cholangitis or cholecystitis without obstruction; Translations: [Calculus of bile duct without cholangitis or cholecystitis without obstruction] Onset: 5 Episodic Cancer of kidney and renal pelvis (20 sources) Renal cell carcinoma; Translations: [Malignant neoplasm of unspecified kidney, except renal pelvis] 07-03-2020 Chronic Cancer of kidney and renal pelvis (1 source) History of malignant neoplasm of retroperitoneum; Translations: [Personal history of other malignant neoplasm of kidney] Episodic Cancer; other and unspecified primary (5 sources) H/O: malignant neoplasm; Translations: [Personal history of malignant neoplasm, unspecified] 02-20-2025 Episodic Cardiac dysrhythmias (7 sources) Sinus tachycardia; Translations: [Tachycardia, unspecified] 01-25-2025 Episodic Deficiency and other anemia (20 sources) Acquired pancytopenia; Translations: [Antineoplastic chemotherapy induced pancytopenia] Onset: 1 01-27-2021 Chronic Deficiency and other anemia (1 source) Antineoplastic chemotherapy induced pancytopenia; Translations: [Pancytopenia due to chemotherapy] Onset: 1 Chronic Deficiency and other anemia (20 sources) Iron deficiency anemia; Translations: [Iron deficiency anemia, unspecified] 07-03-2020 Episodic E Codes: Adverse effects of medical drugs (8 sources) Adverse reaction to drug; Translations: [Adverse effect of unspecified drugs, medicaments and biological substances, initial encounter] Onset: 1 01-25-2025 Episodic Gastritis and duodenitis (1 source) Acute gastritis; Translations: [Acute gastritis without bleeding] Episodic Headache; including migraine (7 sources) New daily persistent headache; Translations: [New daily persistent headache (NDPH)] Onset: 4 08-13-2024 Chronic Headache; including migraine (1 source) Thunderclap headache; Translations: [Primary thunderclap headache] 06-30-2023 Episodic Hemorrhoids (20 sources) Hemorrhoids; Translations: [Unspecified hemorrhoids] 06-29-2020 Episodic Immunity disorders (20 sources) Immunodeficiency disorder; Translations: [Immunodeficiency, unspecified] Onset: 1 03-04-2021 Chronic Malaise and fatigue (20 sources) Asthenia; Translations: [Other malaise] Onset: 5 08-09-2020 Episodic Multiple myeloma (20 sources) Plasmacytoma; 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] Onset: 0 06-24-2020 Chronic Non-Hodgkin`s lymphoma (20 sources) History of multiple myeloma; Translations: [Personal history of other malignant neoplasms of lymphoid, hematopoietic and related tissues] 12-18-2024 Episodic Nonspecific chest pain (20 sources) Pain of sternum; Translations: [Other chest pain] 05-28-2020 Episodic Other connective tissue disease (20 sources) Spasm; Translations: [Other muscle spasm] 07-03-2020 Episodic Other diseases of kidney and ureters (2 sources) Cyst of kidney; Translations: [Cyst of kidney, acquired] Episodic Other fractures (20 sources) Compression fracture of thoracic spine; Translations: [Wedge compression fracture of T11-T12 vertebra, initial encounter for closed fracture] 07-03-2020 Episodic Other fractures (20 sources) Fracture of thoracic spine; Translations: [Unspecified fracture of unspecified thoracic vertebra, initial encounter for closed fracture] 08-09-2020 Episodic Comment on above: secondary to multipl e myeloma Other fractures (20 sources) Compression fracture of lumbar spine; Translations: [Wedge compression fracture of unspecified lumbar vertebra, initial encounter for closed fracture] 08-09-2020 Episodic Comment on above: recent history of ky phoplasty, due to multiple myeloma Other gastrointestinal disorders (1 source) History of pancreatitis; Translations: [Personal history of other diseases of the digestive system] Episodic Other gastrointestinal disorders (1 source) Abdominal bloating; Translations: [Abdominal distension (gaseous)] Episodic Other lower respiratory disease (6 sources) Cough; Translations: [Cough] 02-18-2025 Episodic Other nervous system disorders (20 sources) Pain due to neoplastic disease; Translations: [Neoplasm related pain (acute) (chronic)] Onset: 1 12-16-2020 Chronic Other nervous system disorders (1 source) Neoplasm related pain (acute) (chronic); Translations: [Cancer related pain] Onset: 1 Chronic Other nutritional; endocrine; and metabolic disorders (20 sources) Obesity; Translations: [Obesity, unspecified] 04-09-2019 Chronic Other screening for suspected conditions (not mental disorders or infectious disease) (20 sources) Patient encounter status; Translations: [Encounter for screening for malignant neoplasm of intestinal tract, unspecified] Episodic Other upper respiratory infections (20 sources) Sinusitis; Translations: [Acute upper respiratory infection] Onset: 7 02-22-2017 Episodic Otitis media and related conditions (6 sources) Otitis media; Translations: [Otitis media, unspecified, unspecified ear] 07-05-2025 Episodic Pancreatic disorders (not diabetes) (1 source) Chronic pancreatitis; Translations: [Other chronic pancreatitis] Chronic Pancreatic disorders (not diabetes) (20 sources) Pancreatitis; Translations: [Acute pancreatitis without necrosis or infection, unspecified] Episodic Residual codes; unclassified (20 sources) History of autologous bone marrow transplant; Translations: [Bone marrow transplant status] Onset: 1 01-28-2021 Chronic Residual codes; unclassified (20 sources) History of clinical finding in subject; Translations: [Personal history of other specified conditions] 04-09-2019 Episodic Residual codes; unclassified (20 sources) H/O: gastrointestinal disease; Translations: [Personal history of other specified conditions] 04-09-2019 Episodic Residual codes; unclassified (20 sources) Uncontrolled pain; Translations: [Pain, unspecified] 07-02-2020 Episodic Comment on above: seconday to thoracic compression fracture Residual codes; unclassified (2 sources) Early satiety; Translations: [Early satiety] 12-07-2023 Episodic Residual codes; unclassified (1 source) Edema, unspecified; Translations: [Edema, unspecified] Onset: 4 Episodic Residual codes; unclassified (20 sources) History of antineoplastic chemotherapy; Translations: [Personal history of antineoplastic chemotherapy] 12-18-2024 Episodic Screening and history of mental health and substance abuse codes (20 sources) Ex-tobacco user; Translations: [Personal history of nicotine dependence] 04-09-2019 Episodic Comment on above: TEENAGER Spondylosis; intervertebral disc disorders; other back problems (20 sources) Chronic back pain ; Translations: [Dorsalgia, unspecified] Onset: 0 01-27-2021 Episodic Sprains and strains (20 sources) Sprain of right thumb; Translations: [Unspecified sprain of right thumb, initial encounter] Episodic Thyroid disorders (20 sources) Thyroid nodule; Translations: [Nontoxic single thyroid nodule] Onset: 2 09-12-2012 Chronic Unclassified (1 source) Acute midline low back pain without sciatica; Translations: [Acute midline low back pain without sciatica] Onset: 5 Unclassified (1 source) Non-Chemotherapy Treatment Onset: 4 Unclassified (1 source) Cough, unspecified; Translations: [Cough, unspecified] Onset: 5 Viral infection (20 sources) Disease caused by 2019-nCoV; Translations: [COVID-19] 08-19-2023 Episodic Past or Other Problems Problem Classification Problem Date Documented Da te Episodic/Chronic Abdominal pain (20 sources) Epigastric pain; Translations: [Epigastric pain] Onset: 03-03-2023 03-03-2023 Episodic Administrative/social admission (1 source) Counseling, unspecified; Translations: [Encounter for education] Onset: 01-14-2025 Episodic Bacterial infection; unspecified site (20 sources) Streptococcal infectious disease; Translations: [Streptococcal infection, unspecified site] Onset: 02-05-2021 02-05-2021 Episodic Conditions associated with dizziness or vertigo (20 sources) Labyrinthine disorder; Translations: [Unspecified disorder of vestibular function, unspecified ear] Onset: 07-27-2021 Episodic Diseases of white blood cells (20 sources) Febrile neutropenia; Translations: [Neutropenia, unspecified] Onset: 01-24-2021 Resolved: 02-05-2021 02-05-2021 Chronic Esophageal disorders (20 sources) Acute esophagitis; Translations: [Acute esophagitis] Onset: 01-22-2021 Resolved: 02-05-2021 02-05-2021 Episodic Fluid and electrolyte disorders (20 sources) Hypervolemia; Translations: [Fluid overload, unspecified] Onset: 01-21-2021 01-27-2021 Episodic Nausea and vomiting (20 sources) Chemotherapy-induce d nausea and vomiting; Translations: [Nausea with vomiting, unspecified] Onset: 01-13-2021 01-27-2021 Episodic Nutritional deficiencies (2 sources) Serum iron low; Translations: [Iron deficiency] Onset: 09-14-2024 09-13-2024 Episodic Other connective tissue disease (20 sources) Swelling of hand; Translations: [Other specified soft tissue disorders] Onset: 01-14-2021 Resolved: 02-05-2021 02-05-2021 Episodic Other fractures (20 sources) Compression fracture of vertebral column; Translations: [Wedge compression fracture of unspecified lumbar vertebra, subsequent encounter for fracture with routine healing] Onset: 09-22-2022 Episodic Other fractures (20 sources) Compression fracture of thoracic vertebra; Translations: [Wedge compression fracture of unspecified thoracic vertebra, sequela] Onset: 09-22-2022 Episodic Other fractures (1 source) Wedge compression fracture of unspecified thoracic vertebra, sequela; Translations: [Compression fracture of thoracic vertebra, unspecified thoracic vertebral level, sequela] Onset: 09-22-2022 Episodic Other gastrointestinal disorders (20 sources) Diarrhea; Translations: [Diarrhea, unspecified] Onset: 01-18-2021 01-27-2021 Episodic Other liver diseases (20 sources) Liver mass; Translations: [Hepatomegaly, not elsewhere classified] Onset: 01-11-2023 01-11-2023 Episodic Other lower respiratory disease (1 source) Shortness of breath; Translations: [Shortness of breath] Onset: 01-31-2025 Episodic Other nutritional; endocrine; and metabolic disorders (2 sources) Abnormal weight gain; Translations: [Abnormal weight gain] Onset: 10-26-2024 Episodic Other skin disorders (20 sources) Bilateral localized swelling of lower legs; Translations: [Localized swelling, mass and lump, lower limb, bilateral] Onset: 12-16-2020 12-16-2020 Episodic Pathological fracture (13 sources) Pathological fracture; Translations: [Pathological fracture, other site, initial encounter for fracture] Onset: 12-28-2024 08-13-2024 Episodic Pneumonia (except that caused by tuberculosis or sexually transmitted disease) (3 sources) Pneumonia; Translations: [Other pneumonia, unspecified organism] Onset: 02-22-2025 02-22-2025 Episodic Residual codes; unclassified (20 sources) At risk of healthcare associated infection; Translations: [Other specified personal risk factors, not elsewhere classified] Onset: 01-13-2021 01-27-2021 Episodic Residual codes; unclassified (20 sources) At risk of electrolyte imbalance; Translations: [Other specified personal risk factors, not elsewhere classified] Onset: 01-13-2021 01-27-2021 Episodic Residual codes; unclassified (20 sources) Insomnia; Translations: [Insomnia, unspecified] Onset: 01-13-2021 01-27-2021 Episodic Septicemia (except in labor) (20 sources) Sepsis; Translations: [Sepsis, unspecified organism] Onset: 01-25-2021 Resolved: 02-05-2021 02-05-2021 Episodic Unclassified (20 sources) history of bone fracture 04-29-2022 Unclassified (20 sources) s/p kidney cancer 04-29-2022 Comment on above: mass removed from ki dney 2011 Unclassified (3 sources) Compression fracture of thoracic vertebra 12-24-2024 Results Test Name Value Interpretation Reference Range Facility Internal Medicine Office Vis [facility] 07-09-2025 Internal Medicine Office Visit Normal [facility] Internal Medicine Office Vis [facility] 07-05-2025 Internal Medicine Office Visit Normal [facility] Urgent Care Visit Reporton 0 07-02-2025 Urgent Care Visit Report Normal [facility] CBC W Auto Differential pane l (Bld)on 06-26-2025 Basophils (Bld) [#/Vol] 0.03 10*3/uL [facility] Basophils/100 WBC (Bld) 0.4 % [facility] Differential cell count method Nom (Bld) Auto [facility] Eosinophils (Bld) [#/Vol] 0.11 10*3/uL [facility] Eosinophils/100 WBC (Bld) 1.3 % [facility] Erythrocyte distribution width (RBC) [Ratio] 11.7 % 11.5 - 15.0 % [facility] Hematocrit (Bld) [Volume fraction] 32.8 % Low 36.0 - 46.0 % [facility] Hemoglobin (Bld) [Mass/Vol] 11.0 g/dL Low 11.5 - 15.5 g/dL [facility] Immature granulocytes (Bld) [#/Vol] 0.03 10*3/uL [facility] Immature granulocytes/100 WBC (Bld) 0.4 % [facility] Interpretation and review of laboratory results Abnormal [facility] Lymphocytes (Bld) [#/Vol] 0.99 10*3/uL Low [facility] Lymphocytes/100 WBC (Bld) 11.6 % [facility] MCH (RBC) [Entitic mass] 31.0 pg 26.0 - 34.0 pg [facility] MCHC (RBC) [Mass/Vol] 33.5 g/dL 30.5 - 36.0 g/dL [facility] MCV (RBC) [Entitic vol] 92.4 fL 80.0 - 100.0 fL [facility] Monocytes (Bld) [#/Vol] 0[facility]64 [facility] Monocytes/100 WBC (Bld) 7.5 % [facility] Neutrophils (Bld) [#/Vol] 6.77 10*3/uL [facility] Neutrophils/100 WBC (Bld) 78.8 % [facility] Nucleated RBC (Bld) [#/Vol] NINF [facility] Nucleated RBC/100 WBC (Bld) [Ratio] 0.0 % /100 WBC [facility] Platelet mean volume (Bld) [Entitic vol] 9.6 fL 9.0 - 12.7 fL [facility] Platelets (Bld) [#/Vol] 145 10*3/uL Low [facility] RBC (Bld) [#/Vol] 3.55 10*6/uL Low 3.90 - 5.2 0 m/uL [facility] WBC (Bld) [#/Vol] 8.57 10*3/uL [facility] Comprehensive metabolic 2000 panelOrdered By: Alexandra Sanchez on 06-26-2025 Albumin [Mass/Vol] 3.9 g/dL 3.9 - 4.9 g/dL [facility] ALP [Catalytic activity/Vol] 81 U/L 34 - 123 U/L [facility] ALT [Catalytic activity/Vol] 18 U/L 7 - 38 U/L [facility] Anion gap [Moles/Vol] 9 mmol/L 8 - 15 mmol/L [facility] AST [Catalytic activity/Vol] 21 U/L 13 - 35 U/L [facility] Bilirubin [Mass/Vol] 0.3 mg/dL 0.2 - 1 .3 mg/dL [facility] Calcium [Mass/Vol] 9.4 mg/dL 8.5 - 10. 2 mg/dL [facility] Chloride [Moles/Vol] 104 mmol/L 98 - 10 7 mmol/L [facility] CO2 [Moles/Vol] 26 mmol/L 22 - 30 mmol/L [facility] Creatinine [Mass/Vol] 0.79 mg/dL 0.58 - 0.96 mg/dL [facility] GFR/1.73 sq M.predicted among non-blacks MDRD (S/P/Bld) [Vol rate/Area] 85 mL/min/{1.73_m2} - PINF [facility] Comment on above: Estimated Glomerular Filtration Rate (eGFR) is calculated using the 2020 CKD-EPI creatinine equation. This equation utilizes serum creatinine, sex, and age as parameters. The creatinine assay has traceable calibration to isotope dilution-mass spectrometry. Refer to KDIGO guidelines for clinical interpretation. In patients with unstable renal function, e.g. those with acute kidney injury, the eGFR may not accurately reflect actual GFR. Glucose [Mass/Vol] 84 mg/dL 74 - 99 mg/dL [facility] Comment on above: The [place] [employer] (ADA) provides guidance for cutoff values for fasting glucose and random glucose. The ADA defines fasting as no caloric intake for at least 8 hours. Fasting plasma glucose results between 100 to 125 mg/dL indicate increased risk for diabetes (prediabetes). Fasting plasma glucose results greater than or equal to 126 mg/dL meet the criteria for diagnosis of diabetes. In the absence of unequivocal hyperglycemia, results should be confirmed by repeat testing. In a patient with classic symptoms of hyperglycemia or hyperglycemic crisis, random plasma glucose results greater than or equal to 200 mg/dL meet the criteria for diagnosis of diabetes. Reference: Standards of Medical Care in Diabetes 2016, [place] [employer]. Diabetes Care. 2016.39(Suppl 1). Potassium [Moles/Vol] 4.5 mmol/L 3.7 - 5.1 mmol/L [facility] Protein [Mass/Vol] 6.0 g/dL Low 6.3 - 8.0 g/dL [facility] Sodium [Moles/Vol] 139 mmol/L 136 - 144 mmol/L [facility] Urea nitrogen [Mass/Vol] 19 mg/dL 7 - 21 mg/dL [facility] LACTATE DEHYDROGENASEon 06-10 LDH [Catalytic activity/Vol] 226 U/L High 135 - 214 U/L [facility] No Panel Informationon 06-26 Interpretation and review of laboratory results Abnormal [facility] CBC W Auto Differential pane l (Bld)on 06-12-2025 Basophils (Bld) [#/Vol] 0.04 10*3/uL [facility] Basophils/100 WBC (Bld) 0.6 % [facility] Differential cell count method Nom (Bld) Auto [facility] Eosinophils (Bld) [#/Vol] 0.06 10*3/uL [facility] Eosinophils/100 WBC (Bld) 0.8 % [facility] Erythrocyte distribution width (RBC) [Ratio] 11.9 % 11.5 - 15.0 % [facility] Hematocrit (Bld) [Volume fraction] 34.5 % Low 36.0 - 46.0 % [facility] Hemoglobin (Bld) [Mass/Vol] 11.6 g/dL 11.5 - 15.5 g/dL [facility] Immature granulocytes (Bld) [#/Vol] [facility] Immature granulocytes/100 WBC (Bld) 0.3 % [facility] Interpretation and review of laboratory results Abnormal [facility] Lymphocytes (Bld) [#/Vol] 1.13 10*3/uL [facility] Lymphocytes/100 WBC (Bld) 15.8 % [facility] MCH (RBC) [Entitic mass] 31.4 pg 26.0 - 34.0 pg [facility] MCHC (RBC) [Mass/Vol] 33.6 g/dL 30.5 - 36.0 g/dL [facility] MCV (RBC) [Entitic vol] 93.2 fL 80.0 - 100.0 fL [facility] Monocytes (Bld) [#/Vol] 0.58 10*3/uL [facility] Monocytes/100 WBC (Bld) 8.1 % [facility] Neutrophils (Bld) [#/Vol] 5.33 10*3/uL [facility] Neutrophils/100 WBC (Bld) 74.4 % [facility] Nucleated RBC (Bld) [#/Vol] [facility] Nucleated RBC/100 WBC (Bld) [Ratio] 0.0 % /100 WBC [facility] Platelet mean volume (Bld) [Entitic vol] 9.7 fL 9.0 - 12.7 fL [facility] Platelets (Bld) [#/Vol] 199 10*3/uL [facility] RBC (Bld) [#/Vol] 3.70 10*6/uL Low 3.90 - 5.2 0 m/uL [facility] WBC (Bld) [#/Vol] 7.16 10*3/uL [facility] Comprehensive metabolic 2000 panelOrdered By: Faviola Watson on 06-12-2025 Albumin [Mass/Vol] 4.1 g/dL 3.9 - 4.9 g/dL [facility] ALP [Catalytic activity/Vol] 72 U/L 34 - 123 U/L [facility] ALT [Catalytic activity/Vol] 13 U/L 7 - 38 U/L [facility] Anion gap [Moles/Vol] 8 mmol/L 8 - 15 mmol/L [facility] AST [Catalytic activity/Vol] 20 U/L 13 - 35 U/L [facility] Bilirubin [Mass/Vol] 0.3 mg/dL 0.2 - 1 .3 mg/dL [facility] Calcium [Mass/Vol] 9.5 mg/dL 8.5 - 10. 2 mg/dL [facility] Chloride [Moles/Vol] 104 mmol/L 98 - 10 7 mmol/L [facility] CO2 [Moles/Vol] 26 mmol/L 22 - 30 mmol/L [facility] Creatinine [Mass/Vol] 1.09 mg/dL High 0.58 - 0.96 mg/dL [facility] GFR/1.73 sq M.predicted among non-blacks MDRD (S/P/Bld) [Vol rate/Area] 58 mL/min/{1.73_m2} Low - PINF [facility] Comment on above: Estimated Glomerular Filtration Rate (eGFR) is calculated using the 2020 CKD-EPI creatinine equation. This equation utilizes serum creatinine, sex, and age as parameters. The creatinine assay has traceable calibration to isotope dilution-mass spectrometry. Refer to KDIGO guidelines for clinical interpretation. In patients with unstable renal function, e.g. those with acute kidney injury, the eGFR may not accurately reflect actual GFR. Glucose [Mass/Vol] 105 mg/dL High 74 - 99 mg/dL [facility] Comment on above: The [place] [employer] (ADA) provides guidance for cutoff values for fasting glucose and random glucose. The ADA defines fasting as no caloric intake for at least 8 hours. Fasting plasma glucose results between 100 to 125 mg/dL indicate increased risk for diabetes (prediabetes). Fasting plasma glucose results greater than or equal to 126 mg/dL meet the criteria for diagnosis of diabetes. In the absence of unequivocal hyperglycemia, results should be confirmed by repeat testing. In a patient with classic symptoms of hyperglycemia or hyperglycemic crisis, random plasma glucose results greater than or equal to 200 mg/dL meet the criteria for diagnosis of diabetes. Reference: Standards of Medical Care in Diabetes 2016, [place] [employer]. Diabetes Care. 2016.39(Suppl 1). Interpretation and review of laboratory results Abnormal [facility] Potassium [Moles/Vol] 4.4 mmol/L 3.7 - 5.1 mmol/L [facility] Protein [Mass/Vol] 6.0 g/dL Low 6.3 - 8.0 g/dL [facility] Sodium [Moles/Vol] 138 mmol/L 136 - 144 mmol/L [facility] Urea nitrogen [Mass/Vol] 20 mg/dL 7 - 21 mg/dL [facility] CBC W Auto Differential pane l (Bld)on 05-29-2025 Basophils (Bld) [#/Vol] 0.04 10*3/uL [facility] Basophils/100 WBC (Bld) 0.7 % [facility] Differential cell count method Nom (Bld) Auto [facility] Eosinophils (Bld) [#/Vol] 0.08 10*3/uL [facility] Eosinophils/100 WBC (Bld) 1.3 % [facility] Erythrocyte distribution width (RBC) [Ratio] 11.9 % 11.5 - 15.0 % [facility] Hematocrit (Bld) [Volume fraction] 34.3 % Low 36.0 - 46.0 % [facility] Hemoglobin (Bld) [Mass/Vol] 11.3 g/dL Low 11.5 - 15.5 g/dL [facility] Immature granulocytes (Bld) [#/Vol] [facility] Immature granulocytes/100 WBC (Bld) 0.2 % [facility] Interpretation and review of laboratory results Abnormal [facility] Lymphocytes (Bld) [#/Vol] 1.19 10*3/uL [facility] Lymphocytes/100 WBC (Bld) 19.7 % [facility] MCH (RBC) [Entitic mass] 31.3 pg 26.0 - 34.0 pg [facility] MCHC (RBC) [Mass/Vol] 32.9 g/dL 30.5 - 36.0 g/dL [facility] MCV (RBC) [Entitic vol] 95.0 fL 80.0 - 100.0 fL [facility] Monocytes (Bld) [#/Vol] 0.55 [facility] Monocytes/100 WBC (Bld) 9.1 % [facility] Neutrophils (Bld) [#/Vol] 4.18 10*3/uL [facility] Neutrophils/100 WBC (Bld) 69.0 % [facility] Nucleated RBC (Bld) [#/Vol] [facility] Nucleated RBC/100 WBC (Bld) [Ratio] 0.0 % /100 WBC [facility] Platelet mean volume (Bld) [Entitic vol] 9.1 fL 9.0 - 12.7 fL [facility] Platelets (Bld) [#/Vol] 127 10*3/uL Low [facility] RBC (Bld) [#/Vol] 3.61 10*6/uL Low 3.90 - 5.2 0 m/uL [facility] WBC (Bld) [#/Vol] 6.05 10*3/uL [facility] Comprehensive metabolic 2000 panelOrdered By: Larisa Allan on 05-29-2025 Albumin [Mass/Vol] 4.1 g/dL 3.9 - 4.9 g/dL [facility] ALP [Catalytic activity/Vol] 71 U/L 34 - 123 U/L [facility] ALT [Catalytic activity/Vol] 16 U/L 7 - 38 U/L [facility] Anion gap [Moles/Vol] 7 mmol/L Low 8 - 15 mmol/L [facility] AST [Catalytic activity/Vol] 20 U/L 13 - 35 U/L [facility] Bilirubin [Mass/Vol] 0.3 mg/dL 0.2 - 1 .3 mg/dL [facility] Calcium [Mass/Vol] 9.1 mg/dL 8.5 - 10. 2 mg/dL [facility] Chloride [Moles/Vol] 105 mmol/L 98 - 10 7 mmol/L [facility] CO2 [Moles/Vol] 26 mmol/L 22 - 30 mmol/L [facility] Creatinine [Mass/Vol] 0.92 mg/dL 0.58 - 0.96 mg/dL [facility] GFR/1.73 sq M.predicted among non-blacks MDRD (S/P/Bld) [Vol rate/Area] 71 mL/min/{1.73_m2} - PINF [facility] Comment on above: Estimated Glomerular Filtration Rate (eGFR) is calculated using the 2020 CKD-EPI creatinine equation. This equation utilizes serum creatinine, sex, and age as parameters. The creatinine assay has traceable calibration to isotope dilution-mass spectrometry. Refer to KDIGO guidelines for clinical interpretation. In patients with unstable renal function, e.g. those with acute kidney injury, the eGFR may not accurately reflect actual GFR. Glucose [Mass/Vol] 84 mg/dL 74 - 99 mg/dL [facility] Comment on above: The [place] [employer] (ADA) provides guidance for cutoff values for fasting glucose and random glucose. The ADA defines fasting as no caloric intake for at least 8 hours. Fasting plasma glucose results between 100 to 125 mg/dL indicate increased risk for diabetes (prediabetes). Fasting plasma glucose results greater than or equal to 126 mg/dL meet the criteria for diagnosis of diabetes. In the absence of unequivocal hyperglycemia, results should be confirmed by repeat testing. In a patient with classic symptoms of hyperglycemia or hyperglycemic crisis, random plasma glucose results greater than or equal to 200 mg/dL meet the criteria for diagnosis of diabetes. Reference: Standards of Medical Care in Diabetes 2016, [place] [employer]. Diabetes Care. 2016.39(Suppl 1). Interpretation and review of laboratory results Abnormal [facility] Potassium [Moles/Vol] 4.3 mmol/L 3.7 - 5.1 mmol/L [facility] Protein [Mass/Vol] 6.1 g/dL Low 6.3 - 8.0 g/dL [facility] Sodium [Moles/Vol] 138 mmol/L 136 - 144 mmol/L [facility] Urea nitrogen [Mass/Vol] 17 mg/dL 7 - 21 mg/dL [facility] MR Cervical spine WO and W c ontrast Deyanira 05-20-2025 * * *Final Report* * * DATE OF EXAM: May 20 2025 8:50AM [facility] [id number] - MRI CERVICAL SPINE WO/W IVCON / PROCEDURE REASON: multiple diagnoses * * * * Physician Interpretation * * * * EXAMINATION: MRI CERVICAL SPINE WO/W IVCON, MRI THORACIC SPINE WO/W IVCON CLINICAL HISTORY: Multiple myeloma not having achieved remission (HCC) Compression fracture of thoracic vertebra, unspecified thoracic vertebral level, sequela TECHNIQUE: Routine cervical and thoracic spine MR protocol without and with intravenous gadolinium. Contrast: IV administration of 9 ml of Elucirem COMPARISON: MR cervical and thoracic spine 09/03/2024 . PET/CT 04/09/2025. CT thoracic spine 12/28/2024 RESULT: CERVICAL: Counting reference: Craniocervical junction. Anatomic Variants: None. Alignment: Alignment is anatomic. Craniocervical junction: Craniocervical junction is normal. Cord: The cervical spinal cord is within normal limits of signal intensity and morphology. No pathologic intradural enhancement. Bone marrow signal/fracture: No evidence of pathologic marrow infiltration. No acute fracture. Cervical soft tissues: The paraspinal soft tissues are within normal limits. 2.7 cm T2 hyperintense enhancing LEFT thyroid nodule, previously biopsied with FNA on 11/05/2024 showing benign follicular nodular disease. C2-C3: Canal and foramina are patent. C3-C4: Shallow posterior disc osteophyte complex abuts the ventral cord without significant overall canal narrowing. Facet and uncovertebral arthropathy results in mild LEFT foraminal stenosis. Patent RIGHT neural foramen. C4-C5: Posterior disc osteophyte complex. Mild canal narrowing with ventral cord abutment. Facet and uncovertebral arthropathy results in moderate bilateral foraminal stenosis. C5-C6: Posterior disc osteophyte complex. Mild canal stenosis with ventral cord abutment. Facet and uncovertebral arthropathy results in moderate to severe RIGHT and moderate LEFT foraminal stenosis. C6-C7: Posterior disc osteophyte complex. Mild canal stenosis with ventral cord abutment. Facet and uncovertebral arthropathy results in severe bilateral foraminal stenosis. C7-T1: Canal and foramina are patent. THORACIC: Counting reference: Craniocervical and lumbosacral junctions For the purposes of this report, L4-5 is considered the level of the iliac crest and assume there are 5 lumbar-type vertebrae. Anatomic variant: None. Localizer images: Small T2 hyperintense lesions within the liver which may represent small hepatic cysts. Chronic moderate compression deformity and kyphoplasty changes of L5 seen on localizer. Alignment: Exaggerated thoracic kyphosis centered at T10-11 secondary to multilevel mid and lower compression deformities as before. Redemonstration of multiple chronic compression fractures including minimal T4 inferior endplate deformity, mild T6 and T7 superior and inferior endplate deformities, moderate T8 height loss, severe T9 and T10 height loss, moderate to severe T11 height loss, and moderate T12 and L1 height loss, unchanged from 09/03/2024. 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 Cord: The thoracic spinal cord is within normal limits of signal intensity and morphology. No pathologic intradural enhancement. Bone marrow signal/fracture: Redemonstrated heterogeneous marrow signal compatible with known chronic myeloma involvement Thoracic soft tissues: The paraspinal soft tissues are within normal limits. Canal and foramina: Multilevel mild degenerative disc space narrowing throughout the thoracic spine with prominent disc desiccation at T11-12 similar to prior exam. Multilevel small posterior disc bulges, facet arthropathy, and ligamentum flavum hypertrophy throughout the thoracic spine, resulting in mild canal stenosis at T9-10, T10-11, T11-12. Varying degrees of foraminal stenosis, including mild bilateral C2-3, mild bilateral T3-4, moderate bilateral T9-10, mild bilateral T10-11, moderate LEFT T11-12 foraminal narrowing. DIVISION OF RADIOLOGY Provider, [facility] - 05/20/2025 * * *Final Report* * * DATE OF EXAM: May 20 2025 8:50AM [facility] 0298 - MRI CERVICAL SPINE WO/W IVCON / PROCEDURE REASON: multiple diagnoses * * * * Physician Interpretation * * * * EXAMINATION: MRI CERVICAL SPINE WO/W IVCON, MRI THORACIC SPINE WO/W IVCON CLINICAL HISTORY: Multiple myeloma not having achieved remission (HCC) Compression fracture of thoracic vertebra, unspecified thoracic vertebral level, sequela TECHNIQUE: Routine cervical and thoracic spine MR protocol without and with intravenous gadolinium. Contrast: IV administration of 9 ml of Elucirem COMPARISON: MR cervical and thoracic spine 09/03/2024 . PET/CT 04/09/2025. CT thoracic spine 12/28/2024 RESULT: CERVICAL: Counting reference: Craniocervical junction. Anatomic Variants: None. Alignment: Alignment is anatomic. Craniocervical junction: Craniocervical junction is normal. Cord: The cervical spinal cord is within normal limits of signal intensity and morphology. No pathologic intradural enhancement. Bone marrow signal/fracture: No evidence of pathologic marrow infiltration. No acute fracture. Cervical soft tissues: The paraspinal soft tissues are within normal limits. 2.7 cm T2 hyperintense enhancing LEFT thyroid nodule, previously biopsied with FNA on 11/05/2024 showing benign follicular nodular disease. C2-C3: Canal and foramina are patent. C3-C4: Shallow posterior disc osteophyte complex abuts the ventral cord without significant overall canal narrowing. Facet and uncovertebral arthropathy results in mild LEFT foraminal stenosis. Patent RIGHT neural foramen. C4-C5: Posterior disc osteophyte complex. Mild canal narrowing with ventral cord abutment. Facet and uncovertebral arthropathy results in moderate bilateral foraminal stenosis. C5-C6: Posterior disc osteophyte complex. Mild canal stenosis with ventral cord abutment. Facet and uncovertebral arthropathy results in moderate to severe RIGHT and moderate LEFT foraminal stenosis. C6-C7: Posterior disc osteophyte complex. Mild canal stenosis with ventral cord abutment. Facet and uncovertebral arthropathy results in severe bilateral foraminal stenosis. C7-T1: Canal and foramina are patent. THORACIC: Counting reference: Craniocervical and lumbosacral junctions For the purposes of this report, L4-5 is considered the level of the iliac crest and assume there are 5 lumbar-type vertebrae. Anatomic variant: None. Localizer images: Small T2 hyperintense lesions within the liver which may represent small hepatic cysts. Chronic moderate compression deformity and kyphoplasty changes of L5 seen on localizer. Alignment: Exaggerated thoracic kyphosis centered at T10-11 secondary to multilevel mid and lower compression deformities as before. Redemonstration of multiple chronic compression fractures including minimal T4 inferior endplate deformity, mild T6 and T7 superior and inferior endplate deformities, moderate T8 height loss, severe T9 and T10 height loss, moderate to severe T11 height loss, and moderate T12 and L1 height loss, unchanged from 09/03/2024. 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 Cord: The thoracic spinal cord is within normal limits of signal intensity and morphology. No pathologic intradural enhancement. Bone marrow signal/fracture: Redemonstrated heterogeneous marrow signal compatible with known chronic myeloma involvement Thoracic soft tissues: The paraspinal soft tissues are within normal limits. Canal and foramina: Multilevel mild degenerative disc space narrowing throughout the thoracic spine with prominent disc desiccation at T11-12 similar to prior exam. Multilevel small posterior disc bulges, facet arthropathy, and ligamentum flavum hypertrophy throughout the thoracic spine, resulting in mild canal stenosis at T9-10, T10-11, T11-12. Varying degrees of foraminal stenosis, including mild bilateral C2-3, mild bilateral T3-4, moderate bilateral T9-10, mild bilateral T10-11, moderate LEFT T11-12 foraminal narrowing. IMPRESSION IMPRESSION: No new active STIR hyperintense, T1 hypointense, or enhancing marrow replacing lesion. Heterogeneous marrow signal changes representing sequela of known myeloma, unchanged. Multiple chronic thoracic compression fractures are again, unchanged, contributing to thoracic kyphosis as before. No new acute fracture. Cervicothoracic degenerative spondylosis as described. Multilevel mild canal narrowing but no high-grade canal stenoses. Severe bilateral C6-7 and moderate to severe RIGHT C5-6 foraminal stenosis. No pathologic enhancement. Cervical Anatomic Variant: None. Assume 7 cervical vertebrae with counting from the craniocervical junction. (more content not included)... [facility] MR Thoracic spine WO and W c ontrast Deyanira 05-20-2025 * * *Final Report* * * DATE OF EXAM: May 20 2025 8:50AM [facility] [id number] - MRI THORACIC SPINE WO/W IVCON / PROCEDURE REASON: multiple diagnoses * * * * Physician Interpretation * * * * EXAMINATION: MRI CERVICAL SPINE WO/W IVCON, MRI THORACIC SPINE WO/W IVCON CLINICAL HISTORY: Multiple myeloma not having achieved remission (HCC) Compression fracture of thoracic vertebra, unspecified thoracic vertebral level, sequela TECHNIQUE: Routine cervical and thoracic spine MR protocol without and with intravenous gadolinium. Contrast: IV administration of 9 ml of Elucirem COMPARISON: MR cervical and thoracic spine 09/03/2024 . PET/CT 04/09/2025. CT thoracic spine 12/28/2024 RESULT: CERVICAL: Counting reference: Craniocervical junction. Anatomic Variants: None. Alignment: Alignment is anatomic. Craniocervical junction: Craniocervical junction is normal. Cord: The cervical spinal cord is within normal limits of signal intensity and morphology. No pathologic intradural enhancement. Bone marrow signal/fracture: No evidence of pathologic marrow infiltration. No acute fracture. Cervical soft tissues: The paraspinal soft tissues are within normal limits. 2.7 cm T2 hyperintense enhancing LEFT thyroid nodule, previously biopsied with FNA on 11/05/2024 showing benign follicular nodular disease. C2-C3: Canal and foramina are patent. C3-C4: Shallow posterior disc osteophyte complex abuts the ventral cord without significant overall canal narrowing. Facet and uncovertebral arthropathy results in mild LEFT foraminal stenosis. Patent RIGHT neural foramen. C4-C5: Posterior disc osteophyte complex. Mild canal narrowing with ventral cord abutment. Facet and uncovertebral arthropathy results in moderate bilateral foraminal stenosis. C5-C6: Posterior disc osteophyte complex. Mild canal stenosis with ventral cord abutment. Facet and uncovertebral arthropathy results in moderate to severe RIGHT and moderate LEFT foraminal stenosis. C6-C7: Posterior disc osteophyte complex. Mild canal stenosis with ventral cord abutment. Facet and uncovertebral arthropathy results in severe bilateral foraminal stenosis. C7-T1: Canal and foramina are patent. THORACIC: Counting reference: Craniocervical and lumbosacral junctions For the purposes of this report, L4-5 is considered the level of the iliac crest and assume there are 5 lumbar-type vertebrae. Anatomic variant: None. Localizer images: Small T2 hyperintense lesions within the liver which may represent small hepatic cysts. Chronic moderate compression deformity and kyphoplasty changes of L5 seen on localizer. Alignment: Exaggerated thoracic kyphosis centered at T10-11 secondary to multilevel mid and lower compression deformities as before. Redemonstration of multiple chronic compression fractures including minimal T4 inferior endplate deformity, mild T6 and T7 superior and inferior endplate deformities, moderate T8 height loss, severe T9 and T10 height loss, moderate to severe T11 height loss, and moderate T12 and L1 height loss, unchanged from 09/03/2024. 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 Cord: The thoracic spinal cord is within normal limits of signal intensity and morphology. No pathologic intradural enhancement. Bone marrow signal/fracture: Redemonstrated heterogeneous marrow signal compatible with known chronic myeloma involvement Thoracic soft tissues: The paraspinal soft tissues are within normal limits. Canal and foramina: Multilevel mild degenerative disc space narrowing throughout the thoracic spine with prominent disc desiccation at T11-12 similar to prior exam. Multilevel small posterior disc bulges, facet arthropathy, and ligamentum flavum hypertrophy throughout the thoracic spine, resulting in mild canal stenosis at T9-10, T10-11, T11-12. Varying degrees of foraminal stenosis, including mild bilateral C2-3, mild bilateral T3-4, moderate bilateral T9-10, mild bilateral T10-11, moderate LEFT T11-12 foraminal narrowing. DIVISION OF RADIOLOGY Provider, [facility] - 05/20/2025 * * *Final Report* * * DATE OF EXAM: May 20 2025 8:50AM [facility] [id number] - MRI THORACIC SPINE WO/W IVCON / PROCEDURE REASON: multiple diagnoses * * * * Physician Interpretation * * * * EXAMINATION: MRI CERVICAL SPINE WO/W IVCON, MRI THORACIC SPINE WO/W IVCON CLINICAL HISTORY: Multiple myeloma not having achieved remission (HCC) Compression fracture of thoracic vertebra, unspecified thoracic vertebral level, sequela TECHNIQUE: Routine cervical and thoracic spine MR protocol without and with intravenous gadolinium. Contrast: IV administration of 9 ml of Elucirem COMPARISON: MR cervical and thoracic spine 09/03/2024 . PET/CT 04/09/2025. CT thoracic spine 12/28/2024 RESULT: CERVICAL: Counting reference: Craniocervical junction. Anatomic Variants: None. Alignment: Alignment is anatomic. Craniocervical junction: Craniocervical junction is normal. Cord: The cervical spinal cord is within normal limits of signal intensity and morphology. No pathologic intradural enhancement. Bone marrow signal/fracture: No evidence of pathologic marrow infiltration. No acute fracture. Cervical soft tissues: The paraspinal soft tissues are within normal limits. 2.7 cm T2 hyperintense enhancing LEFT thyroid nodule, previously biopsied with FNA on 11/05/2024 showing benign follicular nodular disease. C2-C3: Canal and foramina are patent. C3-C4: Shallow posterior disc osteophyte complex abuts the ventral cord without significant overall canal narrowing. Facet and uncovertebral arthropathy results in mild LEFT foraminal stenosis. Patent RIGHT neural foramen. C4-C5: Posterior disc osteophyte complex. Mild canal narrowing with ventral cord abutment. Facet and uncovertebral arthropathy results in moderate bilateral foraminal stenosis. C5-C6: Posterior disc osteophyte complex. Mild canal stenosis with ventral cord abutment. Facet and uncovertebral arthropathy results in moderate to severe RIGHT and moderate LEFT foraminal stenosis. C6-C7: Posterior disc osteophyte complex. Mild canal stenosis with ventral cord abutment. Facet and uncovertebral arthropathy results in severe bilateral foraminal stenosis. C7-T1: Canal and foramina are patent. THORACIC: Counting reference: Craniocervical and lumbosacral junctions For the purposes of this report, L4-5 is considered the level of the iliac crest and assume there are 5 lumbar-type vertebrae. Anatomic variant: None. Localizer images: Small T2 hyperintense lesions within the liver which may represent small hepatic cysts. Chronic moderate compression deformity and kyphoplasty changes of L5 seen on localizer. Alignment: Exaggerated thoracic kyphosis centered at T10-11 secondary to multilevel mid and lower compression deformities as before. Redemonstration of multiple chronic compression fractures including minimal T4 inferior endplate deformity, mild T6 and T7 superior and inferior endplate deformities, moderate T8 height loss, severe T9 and T10 height loss, moderate to severe T11 height loss, and moderate T12 and L1 height loss, unchanged from 09/03/2024. 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 Cord: The thoracic spinal cord is within normal limits of signal intensity and morphology. No pathologic intradural enhancement. Bone marrow signal/fracture: Redemonstrated heterogeneous marrow signal compatible with known chronic myeloma involvement Thoracic soft tissues: The paraspinal soft tissues are within normal limits. Canal and foramina: Multilevel mild degenerative disc space narrowing throughout the thoracic spine with prominent disc desiccation at T11-12 similar to prior exam. Multilevel small posterior disc bulges, facet arthropathy, and ligamentum flavum hypertrophy throughout the thoracic spine, resulting in mild canal stenosis at T9-10, T10-11, T11-12. Varying degrees of foraminal stenosis, including mild bilateral C2-3, mild bilateral T3-4, moderate bilateral T9-10, mild bilateral T10-11, moderate LEFT T11-12 foraminal narrowing. IMPRESSION IMPRESSION: No new active STIR hyperintense, T1 hypointense, or enhancing marrow replacing lesion. Heterogeneous marrow signal changes representing sequela of known myeloma, unchanged. Multiple chronic thoracic compression fractures are again, unchanged, contributing to thoracic kyphosis as before. No new acute fracture. Cervicothoracic degenerative spondylosis as described. Multilevel mild canal narrowing but no high-grade canal stenoses. Severe bilateral C6-7 and moderate to severe RIGHT C5-6 foraminal stenosis. No pathologic enhancement. Cervical Anatomic Variant: None. Assume 7 cervical vertebrae with counting from the craniocervical junction. (more content not included)... [facility] No Panel Informationon 05-20 IMPRESSION: No new active STIR hyperintense, T1 hypointense, or enhancing marrow replacing lesion. Heterogeneous marrow signal changes representing sequela of known myeloma, unchanged. Multiple chronic thoracic compression fractures are again, unchanged, contributing to thoracic kyphosis as before. No new acute fracture. Cervicothoracic degenerative spondylosis as described. Multilevel mild canal narrowing but no high-grade canal stenoses. Severe bilateral C6-7 and moderate to severe RIGHT C5-6 foraminal stenosis. No pathologic enhancement. Cervical Anatomic Variant: None. Assume 7 cervical vertebrae with counting from the craniocervical junction. Anatomic Thoracic/Lumbar Variant: None. L4-5 is considered the level of the iliac crest and assume there are 5 lumbar-type vertebrae. Franchise Consultant: [facility] Transcribe Date/Time: May 20 2025 9:10A Dictated by : OSMANY KAPADIA MD This examination was interpreted and the report reviewed and electronically signed by: OSMANY KAPADIA MD on May 20 2025 9:33AM [facility] DIVISION OF RADIOLOGY Radiology Study observation (narrative) [place] No Panel InformationOrdered By: Ccf Provider on 05-20-2025 [facility] Urinalysis complete panel (U )on 05-10-2025 Bacteria LM.HPF (Urine sed) [#/Area] Negative Negative /HPF [facility] Bilirubin Ql (U) Negative Negative [place] Clarity (Unsp spec) Clear Clear [facility] Color (U) Yellow Yellow [facility] Epithelial cells LM.HPF (Urine sed) [#/Area] None Seen /HPF [facility] Glucose Test strip (U) [Mass/Vol] Negative Negative [facility] Hemoglobin Ql (U) Negative Negative [facility] Hyaline casts (Urine sed) [#/Area] 0 /[LPF] 0 /LPF [facility] Ketones Ql (U) Negative Negative [facility] Leukocyte esterase Test strip Ql (U) Negative Negative [facility] Nitrite Ql (U) Negative Negative [facility] pH (U) 7 [pH] 5.0 - 8.0 [facility] Protein (U) [Mass/Vol] Negative Negative [facility] RBC LM.HPF (Urine sed) [#/Area] 0-2 /HPF 0-2 /HPF [facility] Specific gravity (U) [Rel density] 1.011 1.005 - 1.030 [facility] Urobilinogen Ql (U) 0.2 EU/dL 0.2-1.0 EU/dL [facility] WBC LM.HPF (Urine sed) [#/Area] 0-5 /HPF 0-5 /HPF [facility] This test was developed and its performance characteristics determined by [facility]'s [facility] [place] [facility] It has not been cleared or approved by the FDA. [facility] is regulated under CLIA as qualified to perform high-complexity testing. This test is used for clinical purposes. It should not be regarded as investigational or for research. [facility] CBC W Auto Differential pane l (Bld)on 05-02-2025 Basophils (Bld) [#/Vol] 0.03 10*3/uL [facility] Basophils/100 WBC (Bld) 0.4 % [facility] Differential cell count method Nom (Bld) Auto [facility] Eosinophils (Bld) [#/Vol] 0.1 10*3/uL [facility] Eosinophils/100 WBC (Bld) 1.4 % [facility] Erythrocyte distribution width (RBC) [Ratio] 12.5 % 11.5 - 15.0 % [facility] Hematocrit (Bld) [Volume fraction] 34 % Low 36.0 - 46.0 % [facility] Hemoglobin (Bld) [Mass/Vol] 11.4 g/dL Low 11.5 - 15.5 g/dL [facility] Immature granulocytes (Bld) [#/Vol] 0.03 10*3/[facility] Immature granulocytes/100 WBC (Bld) 0.4 % [facility] Interpretation and review of laboratory results Abnormal [facility] Lymphocytes (Bld) [#/Vol] 0.8 10*3/uL Low [facility] Lymphocytes/100 WBC (Bld) 11 % [facility] MCH (RBC) [Entitic mass] 31.8 pg 26.0 - 34.0 pg [facility] MCHC (RBC) [Mass/Vol] 33.5 g/dL 30.5 - 36.0 g/dL [facility] MCV (RBC) [Entitic vol] 95 fL 80.0 - 100.0 fL [facility] Monocytes (Bld) [#/Vol] 0.79 10*3/uL [facility] Monocytes/100 WBC (Bld) 10.9 % [facility] Neutrophils (Bld) [#/Vol] 5.49 10*3/uL [facility] Neutrophils/100 WBC (Bld) 75.9 % [facility] Nucleated RBC (Bld) [#/Vol] [facility] Nucleated RBC/100 WBC (Bld) [Ratio] 0 % /100 WBC [facility] Platelet mean volume (Bld) [Entitic vol] 8.9 fL Low 9.0 - 12.7 fL [facility] Platelets (Bld) [#/Vol] 156 10*3/uL [facility] RBC (Bld) [#/Vol] 3.58 10*6/uL Low 3.90 - 5.2 0 m/uL [facility] WBC (Bld) [#/Vol] 7.24 10*3/uL [facility] MR Lumbar spine WO and W con trast Deyanira 05-02-2025 IMPRESSION: Multilevel compression fractures throughout the lower thoracic and lumbar spine with similar degrees of vertebral body height loss compared to 09/03/2024. No new or acute pathologic fracture in the lumbar spine. Superimposed lumbar spondylosis result in canal and foraminal stenoses as detailed, most pronounced at L4-S1, similar to prior MRI. Interval development or progression of heterogeneous T1 hypointense marrow signal involving the right iliac bone compared to the prior MRI, which could reflect progressive myeloma. Subtle heterogeneous T2/STIR hyperintense intramedullary signal in the distal cord and conus without cord expansion or pathologic intradural enhancement, nonspecific and could be artifactual. Anatomic Lumbar Variant: None. L4-5 is considered the level of the iliac crest and assume there are 5 lumbar-type vertebrae. Since developmental variants may exist elsewhere in the spine, correlation with thoracic spine imaging would be helpful for accurate labeling of vertebral levels in the thoracic spine as clinically directed. Franchise Consultant: JENNY Transcribe Date/Time: May 02 2025 9:36A Dictated by : SPENCER PINEDA MD This examination was interpreted and the report reviewed and electronically signed by: SPENCER PINEDA MD on May 02 2025 9:57AM [facility] DIVISION OF RADIOLOGY * * *Final Report* * * DATE OF EXAM: May 02 2025 9:25AM [facility] 0304 - MRI LUMBAR SPINE WO/W IVCON / PROCEDURE REASON: multiple diagnoses * * * * Physician Interpretation * * * * EXAMINATION: MRI LUMBAR SPINE WO/W IVCON CLINICAL HISTORY: Multiple myeloma not having achieved remission (HCC) Acute midline low back pain without sciatica TECHNIQUE: Routine lumbosacral spine MR protocol without and with intravenous gadolinium. MQ: [id number] Contrast: IV administration of 9 ml of Elucirem COMPARISON: MRI lumbar spine 09/03/2024, MRI thoracic spine 08/29/2024 RESULT: Counting reference: Lumbosacral junction. For the purposes of this report, L4-5 is considered the level of the iliac crest and assume there are 5 lumbar-type vertebrae. Anatomic variant: None. Localizer images: Scattered T2 hyperintensities in the liver could reflect hepatic cysts or hemangiomas but are incompletely characterized on the localizer images. T2 hyperintense lesion in the right lower renal pole, likely renal cyst. Alignment: Thoracic kyphosis centered at the T11 level. Mild exaggeration of the lumbar lordosis. Dextroconvex curvature centered at T11 and mild lumbar levoscoliosis centered at L3. Bone marrow signal/fracture: Mildly heterogeneous marrow signal with STIR hyperintensity, likely reflecting patient's myeloma. Vertebral augmentation material at L5, unchanged. Multilevel chronic appearing compression fractures throughout the visualized thoracic and lumbar spine. Mild STIR hyperintensity associated with superimposed Schmorl's node along the superior L4 endplate, progressed slightly compared to the prior MRI with worsening vertebral body height loss of approximately 60%. Moderate to severe vertebral body height loss of T9-L2 from chronic compression fractures, similar in degree compared to the prior MRI. No new or acute pathologic compression fracture. No extraosseous or epidural soft tissue extension. The posterior elements are intact and normal in alignment. Degenerative fluid signal in the disc space at T11-T12, unchanged. There is heterogeneous T1 hypointense marrow signal involving the right iliac bone with enhancement on postcontrast imaging, which appears new or progressed when compared to the prior MRI, which could reflect progressive myeloma.. Conus: Mildly subtle heterogeneous T2/STIR hyperintense intramedullary signal in the distal thoracic cord and conus, nonspecific but appears progressed from prior MRI.. The conus terminates at the L1-L2 level. There is no pathologic intradural and enhancement on postcontrast imaging. Paraspinal soft tissues: Paraspinal soft tissues are within normal limits. Lower thoracic spine: There is moderate to severe left foraminal stenosis at T11-T12 from facet hypertrophy and compression fracture. Moderate canal stenosis from posterior disc osteophyte complex without significant cord compression.. T12-L1: No significant foraminal stenosis. No significant canal stenosis. L1-L2: Canal and foramina are patent. L2-L3: Canal and foramina are patent L3-L4: Canal and foramina are patent L4-L5: Facet hypertrophy results in mild to moderate bilateral foraminal stenoses with mild canal stenosis from disc bulging. There is mild effacement of the subarticular zones contacting and mildly impinging on the traversing L5 nerves. Findings appear similar to the prior MRI. L5-S1: Degenerative facet arthropathy with disc height loss and bulging result in severe left and moderate to severe right foraminal stenoses, similar to prior exam. No significant canal stenosis. Sacrum and iliac wings: Heterogeneous T1 hypointense marrow signal involving the right iliac bone, progressed from prior MRI. The remainder of the visualized sacrum and iliac wings are within normal limits. DIVISION OF RADIOLOGY Provider, [facility] - 05/02/2025 * * *Final Report* * * DATE OF EXAM: May 02 2025 9:25AM M 0304 - MRI LUMBAR SPINE WO/W IVCON / PROCEDURE REASON: multiple diagnoses * * * * Physician Interpretation * * * * EXAMINATION: MRI LUMBAR SPINE WO/W IVCON CLINICAL HISTORY: Multiple myeloma not having achieved remission (HCC) Acute midline low back pain without sciatica TECHNIQUE: Routine lumbosacral spine MR protocol without and with intravenous gadolinium. MQ: [id number] Contrast: IV administration of 9 ml of Elucirem COMPARISON: MRI lumbar spine 09/03/2024, MRI thoracic spine 08/29/2024 RESULT: Counting reference: Lumbosacral junction. For the purposes of this report, L4-5 is considered the level of the iliac crest and assume there are 5 lumbar-type vertebrae. Anatomic variant: None. Localizer images: Scattered T2 hyperintensities in the liver could reflect hepatic cysts or hemangiomas but are incompletely characterized on the localizer images. T2 hyperintense lesion in the right lower renal pole, likely renal cyst. Alignment: Thoracic kyphosis centered at the T11 level. Mild exaggeration of the lumbar lordosis. Dextroconvex curvature centered at T11 and mild lumbar levoscoliosis centered at L3. Bone marrow signal/fracture: Mildly heterogeneous marrow signal with STIR hyperintensity, likely reflecting patient's myeloma. Vertebral augmentation material at L5, unchanged. Multilevel chronic appearing compression fractures throughout the visualized thoracic and lumbar spine. Mild STIR hyperintensity associated with superimposed Schmorl's node along the superior L4 endplate, progressed slightly compared to the prior MRI with worsening vertebral body height loss of approximately 60%. Moderate to severe vertebral body height loss of T9-L2 from chronic compression fractures, similar in degree compared to the prior MRI. No new or acute pathologic compression fracture. No extraosseous or epidural soft tissue extension. The posterior elements are intact and normal in alignment. Degenerative fluid signal in the disc space at T11-T12, unchanged. There is heterogeneous T1 hypointense marrow signal involving the right iliac bone with enhancement on postcontrast imaging, which appears new or progressed when compared to the prior MRI, which could reflect progressive myeloma.. Conus: Mildly subtle heterogeneous T2/STIR hyperintense intramedullary signal in the distal thoracic cord and conus, nonspecific but appears progressed from prior MRI.. The conus terminates at the L1-L2 level. There is no pathologic intradural and enhancement on postcontrast imaging. Paraspinal soft tissues: Paraspinal soft tissues are within normal limits. Lower thoracic spine: There is moderate to severe left foraminal stenosis at T11-T12 from facet hypertrophy and compression fracture. Moderate canal stenosis from posterior disc osteophyte complex without significant cord compression.. T12-L1: No significant foraminal stenosis. No significant canal stenosis. L1-L2: Canal and foramina are patent. L2-L3: Canal and foramina are patent L3-L4: Canal and foramina are patent L4-L5: Facet hypertrophy results in mild to moderate bilateral foraminal stenoses with mild canal stenosis from disc bulging. There is mild effacement of the subarticular zones contacting and mildly impinging on the traversing L5 nerves. Findings appear similar to the prior MRI. L5-S1: Degenerative facet arthropathy with disc height loss and bulging result in severe left and moderate to severe right foraminal stenoses, similar to prior exam. No significant canal stenosis. Sacrum and iliac wings: Heterogeneous T1 hypointense marrow signal involving the right iliac bone, progressed from prior MRI. The remainder of the visualized sacrum and iliac wings are within normal limits. IMPRESSION IMPRESSION: Multilevel compression fractures throughout the lower thoracic and lumbar spine with similar degrees of vertebral body height loss compared to 09/03/2024. No new or acute pathologic fracture in the lumbar spine. Superimposed lumbar spondylosis result in canal and foraminal stenoses as detailed, most pronounced at L4-S1, similar to prior MRI. Interval development or progression of heterogeneous T1 hypointense marrow signal involving the right iliac bone compared to the prior MRI, which could reflect progressive myeloma. Subtle heterogeneous T2/STIR hyperintense intramedullary signal in the distal cord and conus without cord expansion or pathologic intradural enhancement, nonspecific and could be artifactual. Anatomic Lumbar Variant: None. L4-5 is considered the level of the iliac crest and assume there are 5 lumbar-type vertebrae. Since developmental variants may exist elsewhere in the spine, correlation with tho (more content not included)... [facility]narrative[facility] Lumbar spine WO and W con trast IVOrdered By: Ccf Provider on 05-02-2025 [facility] BONE MARROW BIOPSYon 025 Saba Roa APRN.DEVELOPMENT COACH 04/25/2025 1:39 PM BONE MARROW BIOPSY Date/Start Time: 04/25/2025 12:39 PM Date/Stop Time: 04/25/2025 12:54 PM Performed by: Saba Roa APRN.DEVELOPMENT COACH Authorized by: Saba Roa APRN.DEVELOPMENT COACH Where was Patient When this Procedure was Performed: [facility] Informed Consent Consent Obtained: Written [place] Protocol A moment to CARE was completed. SIGN IN Personnel directly involved with the procedure wore the appropriate PPE. Special Equipment: Yes Patient/Surrogate Stated/Verified: Patient name, Date of , Relevant allergies and Intended procedure TIME OUT Relevant labs, photos, and/or imaging studies have been reviewed. Consent documented and matches the intended procedure. Correct side/site marked and visible. Medications required for procedure verified. No fire risk assessment and interventions applicable. No implant(s) inserted. Pre-Procedure Details: The area was prepped with povidone Iodine (Betadine) and allowed to dry. A sterile partial body drape was applied following the usual aseptic technique. Medications: Local Anesthesia (see MAR): Lidocaine 1% Procedure Details: Patient Position: Left lateral decubitus Aspiration Laterality: Unilateral Aspiration Site: Right posterior superior iliac crest Biopsy Laterality: Unilateral Biopsy Site: Right posterior sperior iliac crest [employer] biopsy system was used. Using aseptic technique, bone marrow aspiration was performed. A touch prep was taken. Core biopsy was obtained 0.5 cm. The core biopsy was confirmed. Number of External Insertion Sites: 1 Pressure dressing applied to Bone Marrow site(s). Hemostasis maintained. Assisting Clinician(s): Cara Garcia RN and Donna Browne LPN Post-Procedure Details: Patient Tolerance: Patient tolerated the procedure well with no immediate complications Immediate Complications: N/A Estimated Blood Loss: none Specimens Sent: bone marrow analysis, bone marrow chromosome analysis, DNA extraction and flow cytometry Teaching Complete: Bone Marrow Biopsy Post-procedure teaching complete Post-procedure care was reviewed and explained. Patient instructed to communicate complaints of redness, swelling, increased or unresolved pain, bleeding chills, bruising, and/or fever. Patient verbalized understanding. SIGN OUT All instruments, equipment, possible retained foreign bodies accounted for. [facility] CBC W Auto Differential pane l (Bld)on 04-25-2025 Basophils (Bld) [#/Vol] 0.03 10*3/uL [facility] Basophils/100 WBC (Bld) 0.5 % [facility] Differential cell count method Nom (Bld) Auto [facility] Eosinophils (Bld) [#/Vol] 0.11 10*3/uL [facility] Eosinophils/100 WBC (Bld) 1.9 % [facility] Erythrocyte distribution width (RBC) [Ratio] 12.7 % 11.5 - 15.0 % [facility] Hematocrit (Bld) [Volume fraction] 31.8 % Low 36.0 - 46.0 % [facility] Hemoglobin (Bld) [Mass/Vol] 10.9 g/dL Low 11.5 - 15.5 g/dL [facility] Immature granulocytes (Bld) [#/Vol] [facility] Immature granulocytes/100 WBC (Bld) 0.3 % [facility] Interpretation and review of laboratory results Abnormal [facility] Lymphocytes (Bld) [#/Vol] 0.93 10*3/uL Low [facility] Lymphocytes/100 WBC (Bld) 16.2 % [facility] MCH (RBC) [Entitic mass] 32.1 pg 26.0 - 34.0 pg [facility] MCHC (RBC) [Mass/Vol] 34.3 g/dL 30.5 - 36.0 g/dL [facility] MCV (RBC) [Entitic vol] 93.5 fL 80.0 - 100.0 fL [facility] Monocytes (Bld) [#/Vol] 0.65 10*3/uL [facility] Monocytes/100 WBC (Bld) 11.3 % [facility] Neutrophils (Bld) [#/Vol] 4 10*3/uL [facility] Neutrophils/100 WBC (Bld) 69.8 % [facility] Nucleated RBC (Bld) [#/Vol] [facility] Nucleated RBC/100 WBC (Bld) [Ratio] 0 % /100 WBC [facility] Platelet mean volume (Bld) [Entitic vol] 9.7 fL 9.0 - 12.7 fL [facility] Platelets (Bld) [#/Vol] 161 10*3/uL [facility] RBC (Bld) [#/Vol] 3.4 10*6/uL Low 3.90 - 5.2 0 m/uL [facility] WBC (Bld) [#/Vol] 5.74 10*3/uL [facility] CBC W Auto Differential pane l (Bld)on 04-17-2025 Basophils (Bld) [#/Vol] 0.04 10*3/uL [facility] Basophils/100 WBC (Bld) 0.6 % [facility] Differential cell count method Nom (Bld) Auto [facility] Eosinophils (Bld) [#/Vol] 0.13 10*3/uL [facility] Eosinophils/100 WBC (Bld) 2 % [facility] Erythrocyte distribution width (RBC) [Ratio] 13.1 % 11.5 - 15.0 % [facility] Hematocrit (Bld) [Volume fraction] 32.5 % Low 36.0 - 46.0 % [facility] Hemoglobin (Bld) [Mass/Vol] 10.9 g/dL Low 11.5 - 15.5 g/dL [facility] Immature granulocytes (Bld) [#/Vol] [facility] Immature granulocytes/100 WBC (Bld) 0.3 % [facility] Interpretation and review of laboratory results Abnormal [facility] Lymphocytes (Bld) [#/Vol] 1.16 10*3/uL [facility] Lymphocytes/100 WBC (Bld) 17.9 % [facility] MCH (RBC) [Entitic mass] 31.4 pg 26.0 - 34.0 pg [facility] MCHC (RBC) [Mass/Vol] 33.5 g/dL 30.5 - 36.0 g/dL [facility] MCV (RBC) [Entitic vol] 93.7 fL 80.0 - 100.0 fL [facility] Monocytes (Bld) [#/Vol] 0.58 10*3/uL [facility] Monocytes/100 WBC (Bld) 9 % [facility] Neutrophils (Bld) [#/Vol] 4.55 10*3/uL [facility] Neutrophils/100 WBC (Bld) 70.2 % [facility] Nucleated RBC (Bld) [#/Vol] [facility] Nucleated RBC/100 WBC (Bld) [Ratio] 0 % /100 WBC [facility] Platelet mean volume (Bld) [Entitic vol] 9.9 fL 9.0 - 12.7 fL [facility] Platelets (Bld) [#/Vol] 178 10*3/uL [facility] RBC (Bld) [#/Vol] 3.47 10*6/uL Low 3.90 - 5.2 0 m/uL [facility] WBC (Bld) [#/Vol] 6.48 10*3/uL [facility] CBC W Auto Differential pane l (Bld)on 04-15-2025 Basophils (Bld) [#/Vol] 0.04 10*3/uL [facility] Basophils/100 WBC (Bld) 0.6 % [facility] Differential cell count method Nom (Bld) Auto [facility] Eosinophils (Bld) [#/Vol] 0.11 10*3/uL [facility] Eosinophils/100 WBC (Bld) 1.8 % [facility] Erythrocyte distribution width (RBC) [Ratio] 13.2 % 11.5 - 15.0 % [facility] Hematocrit (Bld) [Volume fraction] 33.2 % Low 36.0 - 46.0 % [facility] Hemoglobin (Bld) [Mass/Vol] 11.2 g/dL Low 11.5 - 15.5 g/dL [facility] Immature granulocytes (Bld) [#/Vol] [facility] Immature granulocytes/100 WBC (Bld) 0.2 % [facility] Interpretation and review of laboratory results Abnormal [facility] Lymphocytes (Bld) [#/Vol] 0.95 10*3/uL Low [facility] Lymphocytes/100 WBC (Bld) 15.2 % [facility] MCH (RBC) [Entitic mass] 31.6 pg 26.0 - 34.0 pg [facility] MCHC (RBC) [Mass/Vol] 33.7 g/dL 30.5 - 36.0 g/dL [facility] MCV (RBC) [Entitic vol] 93.8 fL 80.0 - 100.0 fL [facility] Monocytes (Bld) [#/Vol] 0.71 10*3/uL [facility] Monocytes/100 WBC (Bld) 11.3 % [facility] Neutrophils (Bld) [#/Vol] 4.44 10*3/uL [facility] Neutrophils/100 WBC (Bld) 70.9 % [facility] Nucleated RBC (Bld) [#/Vol] [facility] Nucleated RBC/100 WBC (Bld) [Ratio] 0 % /100 WBC [facility] Platelet mean volume (Bld) [Entitic vol] 10.1 fL 9.0 - 12.7 fL [facility] Platelets (Bld) [#/Vol] 195 10*3/uL [facility] RBC (Bld) [#/Vol] 3.54 10*6/uL Low 3.90 - 5.2 0 m/uL [facility] WBC (Bld) [#/Vol] 6.26 10*3/uL [facility] Comprehensive metabolic 2000 panelOrdered By: Naima Calix on 04-15-2025 Albumin [Mass/Vol] 4.1 g/dL 3.9 - 4.9 g/dL [facility] ALP [Catalytic activity/Vol] 62 U/L 34 - 123 U/L [facility] ALT [Catalytic activity/Vol] 18 U/L 7 - 38 U/L [facility] Anion gap [Moles/Vol] 13 mmol/L 8 - 15 mmol/L [facility] AST [Catalytic activity/Vol] 22 U/L 13 - 35 U/L [facility] Bilirubin [Mass/Vol] 0.3 mg/dL 0.2 - 1 .3 mg/dL [facility] Calcium [Mass/Vol] 9.3 mg/dL 8.5 - 10. 2 mg/dL [facility] Chloride [Moles/Vol] 103 mmol/L 98 - 10 7 mmol/L [facility] CO2 [Moles/Vol] 24 mmol/L 22 - 30 mmol/L [facility] Creatinine [Mass/Vol] 0.97 mg/dL High 0.58 - 0.96 mg/dL [facility] GFR/1.73 sq M.predicted among non-blacks MDRD (S/P/Bld) [Vol rate/Area] 67 mL/min/{1.73_m2} - PINF [facility] Comment on above: Estimated Glomerular Filtration Rate (eGFR) is calculated using the 2020 CKD-EPI creatinine equation. This equation utilizes serum creatinine, sex, and age as parameters. The creatinine assay has traceable calibration to isotope dilution-mass spectrometry. Refer to KDIGO guidelines for clinical interpretation. In patients with unstable renal function, e.g. those with acute kidney injury, the eGFR may not accurately reflect actual GFR. Glucose [Mass/Vol] 98 mg/dL 74 - 99 mg/dL [facility] Comment on above: The [place] [employer] (ADA) provides guidance for cutoff values for fasting glucose and random glucose. The ADA defines fasting as no caloric intake for at least 8 hours. Fasting plasma glucose results between 100 to 125 mg/dL indicate increased risk for diabetes (prediabetes). Fasting plasma glucose results greater than or equal to 126 mg/dL meet the criteria for diagnosis of diabetes. In the absence of unequivocal hyperglycemia, results should be confirmed by repeat testing. In a patient with classic symptoms of hyperglycemia or hyperglycemic crisis, random plasma glucose results greater than or equal to 200 mg/dL meet the criteria for diagnosis of diabetes. Reference: Standards of Medical Care in Diabetes 2016, [place] [employer]. Diabetes Care. 2016.39(Suppl 1). Interpretation and review of laboratory results Abnormal [facility] Potassium [Moles/Vol] 4.8 mmol/L 3.7 - 5.1 mmol/L [facility] Protein [Mass/Vol] 5.8 g/dL Low 6.3 - 8.0 g/dL [facility] Sodium [Moles/Vol] 140 mmol/L 136 - 144 mmol/L [facility] Urea nitrogen [Mass/Vol] 23 mg/dL High 7 - 21 mg/dL [facility] GLUCOSE, BLOOD (POC)on 04-09 Glucose [Mass/Vol] 92 mg/dL 74 - 99 mg/dL [facility] Comment on above: Location:[facility], [address] [place] [address], [id number] The Accu-Chek Inform II glucose meter has not been approved for testing on patients receiving intensive medical intervention or therapy and results from this point of care glucose test should not be used for patient management decisions in these cases. Inaccurate results may also occur from other interfering factors, such as N-acetylcysteine (blood concentrations of greater than 5mg/dL), galactose, extremes of hematocrit (<10 or >65), or high doses of ascorbic acid (vitamin C) greater than 3mg/dL. Consider alternate testing mechanisms (e.g. core lab, blood gas instrument) in the above situations. [facility] NM PET/CT WHOLE BODY SUBQon 04-09-2025 NM PET/CT WHOLE BODY SUBQ * * *Final Report* * * DATE OF EXAM: Apr 09 2025 11:36AM MDP 0064 - NM PET/CT WHOLE BODY SUBQ / PROCEDURE REASON: C90.00-Multiple myeloma not having achieved remission (HCC) * * * * Physician Interpretation * * * * EXAMINATION: BODY FDG PET-CT CLINICAL HISTORY: Multiple myeloma EXAM CATEGORY: Subsequent treatment strategy. TECHNIQUE: Radiopharmaceutical was administered intravenously followed by PET imaging from the skull vertex to feet. Free breathing, low dose CT of the same body region was acquired without IV contrast for attenuation correction and anatomic localization. Unenhanced imaging is limited for the evaluation of some pathology and the acquired CT was not designed to produce diagnostic CT scan quality. Physiologic/non-pathol ogic uptake in some body regions could confound or obscure some pathology. * CT Dose-Length Product (DLP): 724 mGy*cm * CT Dose Reduction Employed: Yes * Blood glucose: 92 mg/dL * Injection site: Right Forearm-Antecubital * Injected activity: 14.8 mCi * Uptake Time: 68 minutes * Radiopharmaceutical: [id number] (FDG) COMPARISON: FDG PET/CT 09/25/2024 CORRELATION: CT abdomen/pelvis 12/17/2024 RESULT: REFERENCES: FDG uptake is used as a surrogate marker for glucose metabolism. All reported standardized uptake values represent maximum SUV (SUVmax) per body weight, unless otherwise specified. SUV reference values, as follows: * Blood Pool (Descending Aorta): SUVmax 1.9 * Background Liver: SUVmax 3.1; SUVmean 2.3 Localizer Images: No additional findings. HEAD AND NECK: Head: No radiotracer avid lesion or mass effect in the imaged intracranial compartment. Aerodigestive Tract: No radiotracer avid lesion. Lymph Nodes: No radiotracer avid lymphadenopathy. Neck Soft Tissues: Unchanged 2.0 cm mildly FDG avid left thyroid nodule. (image 66; max SUV 2.3), previously biopsied on 11/05/2024. CHEST: Lungs and Pleura: No radiotracer avid mass, nodule, or consolidation. No pleural effusion. Lymph Nodes: No radiotracer avid lymphadenopathy. Mediastinum: No radiotracer avid mass. Cardiovascular: Blood pool activity. No pericardial effusion. Normal heart size. Right chest port with tip in right atrium. Borderline dilated main pulmonary artery, measuring 2.9 cm. Upper limits of normal ascending thoracic aorta, measuring 4.0 cm. Chest Wall: No radiotracer avid soft tissue lesion. ABDOMEN AND PELVIS: Hepatobiliary: No radiotracer avid lesion. No measurable mass. Spleen: No radiotracer avid lesion. No splenomegaly. Pancreas: No radiotracer avid lesion. Adrenals: No radiotracer avid nodule. Urinary Tract: Physiologic radiotracer excretion in the renal collecting systems and urinary bladder. No hydronephrosis. GI Tract: No radiotracer avid lesion. No bowel dilation. Normal appendix. Peritoneum: No radiotracer avid lesion. No ascites. Lymph Nodes: No radiotracer avid lymphadenopathy. Vasculature: Blood pool activity. Pelvic Organs: No radiotracer avid lesion. Bilateral tubal occlusion clips. MUSCULOSKELETAL: Bones: Diffuse heterogeneous density/osseous lucencies may be secondary to osseous demineralization and/or myelomatous lesions, no focal FDG avidity; correlation with spine MRI, as clinically indicated. Unchanged multilevel thoracolumbar compression deformities status post L5 kyphoplasty. Degenerative changes. Soft Tissues: No radiotracer avid lesion. Note, aspects of the arms are not included in the rgikp-fj-novy on CT and cannot be assessed for pathology anatomically. Physiologic muscle uptake. IMPRESSION OSSEOUS DISEASE: * No metabolically active osseous lesion. EXTRAOSSEOUS DISEASE: * No metabolically active extraosseous disease. ADDITIONAL FINDINGS: * Upper limits of normal ascending thoracic aorta, measuring 3.9 cm. Franchise Consultant: PSCVern Transcribe Date/Time: Apr 09 2025 3:36P Dictated by : VIRAL LUBIN, This examination was interpreted and the report reviewed and electronically signed by: KIERA JAMESON MD on Apr 09 2025 4:32PM EST [id number] [facility] PET+CT Whole body Bone W 18F -NaF Deyanira 04-09-2025 * * *Final Report* * * DATE OF EXAM: Apr 09 2025 11:36AM MDP 0064 - NM PET/CT WHOLE BODY SUBQ / PROCEDURE REASON: C90.00-Multiple myeloma not having achieved remission (HCC) * * * * Physician Interpretation * * * * EXAMINATION: BODY FDG PET-CT CLINICAL HISTORY: Multiple myeloma EXAM CATEGORY: Subsequent treatment strategy. TECHNIQUE: Radiopharmaceutical was administered intravenously followed by PET imaging from the skull vertex to feet. Free breathing, low dose CT of the same body region was acquired without IV contrast for attenuation correction and anatomic localization. Unenhanced imaging is limited for the evaluation of some pathology and the acquired CT was not designed to produce diagnostic CT scan quality. Physiologic/non-pathol ogic uptake in some body regions could confound or obscure some pathology. * CT Dose-Length Product (DLP): 724 mGy*cm * CT Dose Reduction Employed: Yes * Blood glucose: 92 mg/dL * Injection site: Right Forearm-Antecubital * Injected activity: 14.8 mCi * Uptake Time: 68 minutes * Radiopharmaceutical: [id number] (FDG) COMPARISON: FDG PET/CT 09/25/2024 CORRELATION: CT abdomen/pelvis 12/17/2024 RESULT: REFERENCES: FDG uptake is used as a surrogate marker for glucose metabolism. All reported standardized uptake values represent maximum SUV (SUVmax) per body weight, unless otherwise specified. SUV reference values, as follows: * Blood Pool (Descending Aorta): SUVmax 1.9 * Background Liver: SUVmax 3.1; SUVmean 2.3 Localizer Images: No additional findings. HEAD AND NECK: Head: No radiotracer avid lesion or mass effect in the imaged intracranial compartment. Aerodigestive Tract: No radiotracer avid lesion. Lymph Nodes: No radiotracer avid lymphadenopathy. Neck Soft Tissues: Unchanged 2.0 cm mildly FDG avid left thyroid nodule. (image 66; max SUV 2.3), previously biopsied on 11/05/2024. CHEST: Lungs & Pleura: No radiotracer avid mass, nodule, or consolidation. No pleural effusion. Lymph Nodes: No radiotracer avid lymphadenopathy. Mediastinum: No radiotracer avid mass. Cardiovascular: Blood pool activity. No pericardial effusion. Normal heart size. Right chest port with tip in right atrium. Borderline dilated main pulmonary artery, measuring 2.9 cm. Upper limits of normal ascending thoracic aorta, measuring 4.0 cm. Chest Wall: No radiotracer avid soft tissue lesion. ABDOMEN AND PELVIS: Hepatobiliary: No radiotracer avid lesion. No measurable mass. Spleen: No radiotracer avid lesion. No splenomegaly. Pancreas: No radiotracer avid lesion. Adrenals: No radiotracer avid nodule. Urinary Tract: Physiologic radiotracer excretion in the renal collecting systems and urinary bladder. No hydronephrosis. GI Tract: No radiotracer avid lesion. No bowel dilation. Normal appendix. Peritoneum: No radiotracer avid lesion. No ascites. Lymph Nodes: No radiotracer avid lymphadenopathy. Vasculature: Blood pool activity. Pelvic Organs: No radiotracer avid lesion. Bilateral tubal occlusion clips. MUSCULOSKELETAL: Bones: Diffuse heterogeneous density/osseous lucencies may be secondary to osseous demineralization and/or myelomatous lesions, no focal FDG avidity; correlation with spine MRI, as clinically indicated. Unchanged multilevel thoracolumbar compression deformities status post L5 kyphoplasty. Degenerative changes. Soft Tissues: No radiotracer avid lesion. Note, aspects of the arms are not included in the fghfe-cv-ocji on CT and cannot be assessed for pathology anatomically. Physiologic muscle uptake. IMPRESSION OSSEOUS DISEASE: * No metabolically active osseous lesion. EXTRAOSSEOUS DISEASE: * No metabolically active extraosseous disease. ADDITIONAL FINDINGS: * Upper limits of normal ascending thoracic aorta, measuring 3.9 cm. Franchise Consultant: JENNY Transcribe Date/Time: Apr 09 2025 3:36P Dictated by : VIRAL LUBIN, DO This examination was interpreted and the report reviewed and electronically signed by: KIERA JAMESON MD on Apr 09 2025 4:32PM [facility] RADI[facility] Provider, [facility] - 04/09/2025 * * *Final Report* * * DATE OF EXAM: Apr 09 2025 11:36AM MDP 0064 - NM PET/CT WHOLE BODY SUBQ / PROCEDURE REASON: C90.00-Multiple myeloma not having achieved remission (HCC) * * * * Physician Interpretation * * * * EXAMINATION: BODY FDG PET-CT CLINICAL HISTORY: Multiple myeloma EXAM CATEGORY: Subsequent treatment strategy. TECHNIQUE: Radiopharmaceutical was administered intravenously followed by PET imaging from the skull vertex to feet. Free breathing, low dose CT of the same body region was acquired without IV contrast for attenuation correction and anatomic localization. Unenhanced imaging is limited for the evaluation of some pathology and the acquired CT was not designed to produce diagnostic CT scan quality. Physiologic/non-pathol ogic uptake in some body regions could confound or obscure some pathology. * CT Dose-Length Product (DLP): 724 mGy*cm * CT Dose Reduction Employed: Yes * Blood glucose: 92 mg/dL * Injection site: Right Forearm-Antecubital * Injected activity: 14.8 mCi * Uptake Time: 68 minutes * Radiopharmaceutical: [id number] (FDG) COMPARISON: FDG PET/CT 09/25/2024 CORRELATION: CT abdomen/pelvis 12/17/2024 RESULT: REFERENCES: FDG uptake is used as a surrogate marker for glucose metabolism. All reported standardized uptake values represent maximum SUV (SUVmax) per body weight, unless otherwise specified. SUV reference values, as follows: * Blood Pool (Descending Aorta): SUVmax 1.9 * Background Liver: SUVmax 3.1; SUVmean 2.3 Localizer Images: No additional findings. HEAD AND NECK: Head: No radiotracer avid lesion or mass effect in the imaged intracranial compartment. Aerodigestive Tract: No radiotracer avid lesion. Lymph Nodes: No radiotracer avid lymphadenopathy. Neck Soft Tissues: Unchanged 2.0 cm mildly FDG avid left thyroid nodule. (image 66; max SUV 2.3), previously biopsied on 11/05/2024. CHEST: Lungs & Pleura: No radiotracer avid mass, nodule, or consolidation. No pleural effusion. Lymph Nodes: No radiotracer avid lymphadenopathy. Mediastinum: No radiotracer avid mass. Cardiovascular: Blood pool activity. No pericardial effusion. Normal heart size. Right chest port with tip in right atrium. Borderline dilated main pulmonary artery, measuring 2.9 cm. Upper limits of normal ascending thoracic aorta, measuring 4.0 cm. Chest Wall: No radiotracer avid soft tissue lesion. ABDOMEN AND PELVIS: Hepatobiliary: No radiotracer avid lesion. No measurable mass. Spleen: No radiotracer avid lesion. No splenomegaly. Pancreas: No radiotracer avid lesion. Adrenals: No radiotracer avid nodule. Urinary Tract: Physiologic radiotracer excretion in the renal collecting systems and urinary bladder. No hydronephrosis. GI Tract: No radiotracer avid lesion. No bowel dilation. Normal appendix. Peritoneum: No radiotracer avid lesion. No ascites. Lymph Nodes: No radiotracer avid lymphadenopathy. Vasculature: Blood pool activity. Pelvic Organs: No radiotracer avid lesion. Bilateral tubal occlusion clips. MUSCULOSKELETAL: Bones: Diffuse heterogeneous density/osseous lucencies may be secondary to osseous demineralization and/or myelomatous lesions, no focal FDG avidity; correlation with spine MRI, as clinically indicated. Unchanged multilevel thoracolumbar compression deformities status post L5 kyphoplasty. Degenerative changes. Soft Tissues: No radiotracer avid lesion. Note, aspects of the arms are not included in the rsjrq-xf-ycpi on CT and cannot be assessed for pathology anatomically. Physiologic muscle uptake. IMPRESSION OSSEOUS DISEASE: * No metabolically active osseous lesion. EXTRAOSSEOUS DISEASE: * No metabolically active extraosseous disease. ADDITIONAL FINDINGS: * Upper limits of normal ascending thoracic aorta, measuring 3.9 cm. Franchise Consultant: JENNY Transcribe Date/Time: Apr 09 2025 3:36P Dictated by : VIRAL LUBIN DO This examination was interpreted and the report reviewed and electronically signed by: KIERA JAMESON MD on Apr 09 2025 4:32PM EST [facility] Radiology Study observation (narrative) [place] PET+CT Whole body Bone W 18F -NaF IVOrdered By: Ccf Provider on 04-09-2025 [facility] CBC W Auto Differential pane l (Bld)on 04-03-2025 Basophils (Bld) [#/Vol] 0.05 10*3/uL [facility] Basophils/100 WBC (Bld) 0.8 % [facility] Differential cell count method Nom (Bld) Auto [facility] Eosinophils (Bld) [#/Vol] 0.13 10*3/uL [facility] Eosinophils/100 WBC (Bld) 2 % [facility] Erythrocyte distribution width (RBC) [Ratio] 13.3 % 11.5 - 15.0 % [facility] Hematocrit (Bld) [Volume fraction] 33.3 % Low 36.0 - 46.0 % [facility] Hemoglobin (Bld) [Mass/Vol] 11.6 g/dL 11.5 - 15.5 g/dL [facility] Immature granulocytes (Bld) [#/Vol] [facility] Immature granulocytes/100 WBC (Bld) 0.3 % [facility] Interpretation and review of laboratory results Abnormal [facility] Lymphocytes (Bld) [#/Vol] 1.19 10*3/uL [facility] Lymphocytes/100 WBC (Bld) 18.2 % [facility] MCH (RBC) [Entitic mass] 31.5 pg 26.0 - 34.0 pg [facility] MCHC (RBC) [Mass/Vol] 34.8 g/dL 30.5 - 36.0 g/dL [facility] MCV (RBC) [Entitic vol] 90.5 fL 80.0 - 100.0 fL [facility] Monocytes (Bld) [#/Vol] 0.65 10*3/uL [facility] Monocytes/100 WBC (Bld) 9.9 % [facility] Neutrophils (Bld) [#/Vol] 4.5 10*3/uL [facility] Neutrophils/100 WBC (Bld) 68.8 % [facility] Nucleated RBC (Bld) [#/Vol] NINF [facility] Nucleated RBC/100 WBC (Bld) [Ratio] 0 % /100 WBC [facility] Platelet mean volume (Bld) [Entitic vol] 9.7 fL 9.0 - 12.7 fL [facility] Platelets (Bld) [#/Vol] 179 10*3/uL [facility] RBC (Bld) [#/Vol] 3.68 10*6/uL Low 3.90 - 5.2 0 m/uL [facility] WBC (Bld) [#/Vol] 6.54 10*3/uL [facility] Comprehensive metabolic 2000 panelOrdered By: Larisa Allan on 04-03-2025 Albumin [Mass/Vol] 4.1 g/dL 3.9 - 4.9 g/dL [facility] ALP [Catalytic activity/Vol] 64 U/L 34 - 123 U/L [facility] ALT [Catalytic activity/Vol] 15 U/L 7 - 38 U/L [facility] Anion gap [Moles/Vol] 12 mmol/L 8 - 15 mmol/L [facility] AST [Catalytic activity/Vol] 18 U/L 13 - 35 U/L [facility] Bilirubin [Mass/Vol] 0.3 mg/dL 0.2 - 1 .3 mg/dL [facility] Calcium [Mass/Vol] 9.8 mg/dL 8.5 - 10. 2 mg/dL [facility] Chloride [Moles/Vol] 103 mmol/L 98 - 10 7 mmol/L [facility] CO2 [Moles/Vol] 23 mmol/L 22 - 30 mmol/L [facility] Creatinine [Mass/Vol] 0.85 mg/dL 0.58 - 0.96 mg/dL [facility] GFR/1.73 sq M.predicted among non-blacks MDRD (S/P/Bld) [Vol rate/Area] 79 mL/min/{1.73_m2} - PINF [facility] Comment on above: Estimated Glomerular Filtration Rate (eGFR) is calculated using the 2020 CKD-EPI creatinine equation. This equation utilizes serum creatinine, sex, and age as parameters. The creatinine assay has traceable calibration to isotope dilution-mass spectrometry. Refer to KDIGO guidelines for clinical interpretation. In patients with unstable renal function, e.g. those with acute kidney injury, the eGFR may not accurately reflect actual GFR. Glucose [Mass/Vol] 96 mg/dL 74 - 99 mg/dL [facility] Comment on above: The [place] [employer] Association (ADA) provides guidance for cutoff values for fasting glucose and random glucose. The ADA defines fasting as no caloric intake for at least 8 hours. Fasting plasma glucose results between 100 to 125 mg/dL indicate increased risk for diabetes (prediabetes). Fasting plasma glucose results greater than or equal to 126 mg/dL meet the criteria for diagnosis of diabetes. In the absence of unequivocal hyperglycemia, results should be confirmed by repeat testing. In a patient with classic symptoms of hyperglycemia or hyperglycemic crisis, random plasma glucose results greater than or equal to 200 mg/dL meet the criteria for diagnosis of diabetes. Reference: Standards of Medical Care in Diabetes 2016, [place] [employer]. Diabetes Care. 2016.39(Suppl 1). Interpretation and review of laboratory results Normal [facility] Potassium [Moles/Vol] 4.1 mmol/L 3.7 - 5.1 mmol/L [facility] Protein [Mass/Vol] 6.3 g/dL 6.3 - 8.0 g/dL [facility] Sodium [Moles/Vol] 138 mmol/L 136 - 144 mmol/L [facility] Urea nitrogen [Mass/Vol] 20 mg/dL 7 - 21 mg/dL [facility] LACTATE DEHYDROGENASEon 03-11 LDH [Catalytic activity/Vol] 264 U/L High 135 - 214 U/L [facility] LDH [Catalytic activity/Vol] on 04-03-2025 Interpretation and review of laboratory results Abnormal [facility] No Panel Informationon 04-03 [facility] CBC W Auto Differential pane l (Bld)on 03-21-2025 Basophils (Bld) [#/Vol] 0.04 10*3/uL NINF [facility] Basophils/100 WBC (Bld) 0.5 % [facility] Differential cell count method Nom (Bld) Auto [facility] Eosinophils (Bld) [#/Vol] 0.18 10*3/uL [facility] Eosinophils/100 WBC (Bld) 2.4 % [facility] Erythrocyte distribution width (RBC) [Ratio] 13.7 % 11.5 - 15.0 % [facility] Hematocrit (Bld) [Volume fraction] 32.2 % Low 36.0 - 46.0 % [facility] Hemoglobin (Bld) [Mass/Vol] 11.1 g/dL Low 11.5 - 15.5 g/dL [facility] Immature granulocytes (Bld) [#/Vol] [facility] Immature granulocytes/100 WBC (Bld) 0.3 % [facility] Interpretation and review of laboratory results Abnormal [facility] Lymphocytes (Bld) [#/Vol] 1.17 10*3/uL [facility] Lymphocytes/100 WBC (Bld) 15.3 % [facility] MCH (RBC) [Entitic mass] 31.4 pg 26.0 - 34.0 pg [facility] MCHC (RBC) [Mass/Vol] 34.5 g/dL 30.5 - 36.0 g/dL [facility] MCV (RBC) [Entitic vol] 91.2 fL 80.0 - 100.0 fL [facility] Monocytes (Bld) [#/Vol] 0.66 10*3/uL [facility] Monocytes/100 WBC (Bld) 8.6 % [facility] Neutrophils (Bld) [#/Vol] 5.57 10*3/uL [facility] Neutrophils/100 WBC (Bld) 72.9 % [facility] Nucleated RBC (Bld) [#/Vol] [facility] Nucleated RBC/100 WBC (Bld) [Ratio] 0 % /100 WBC [facility] Platelet mean volume (Bld) [Entitic vol] 9.4 fL 9.0 - 12.7 fL [facility] Platelets (Bld) [#/Vol] 167 10*3/uL [facility] RBC (Bld) [#/Vol] 3.53 10*6/uL Low 3.90 - 5.2 0 m/uL [facility] WBC (Bld) [#/Vol] 7.64 10*3/uL [facility] CBC W Auto Differential pane l (Bld)on 03-15-2025 Basophils (Bld) [#/Vol] 0.03 10*3/uL [facility] Basophils/100 WBC (Bld) 0.3 % [facility] Differential cell count method Nom (Bld) Auto [facility] Eosinophils (Bld) [#/Vol] 0.16 10*3/uL [facility] Eosinophils/100 WBC (Bld) 1.8 % [facility] Erythrocyte distribution width (RBC) [Ratio] 13.6 % 11.5 - 15.0 % [facility] Hematocrit (Bld) [Volume fraction] 34.2 % Low 36.0 - 46.0 % [facility] Hemoglobin (Bld) [Mass/Vol] 11.8 g/dL 11.5 - 15.5 g/dL [facility] Immature granulocytes (Bld) [#/Vol] 0.04 10*3/uL [facility] Immature granulocytes/100 WBC (Bld) 0.5 % [facility] Interpretation and review of laboratory results Abnormal [facility] Lymphocytes (Bld) [#/Vol] 1 10*3/uL [facility] Lymphocytes/100 WBC (Bld) 11.5 % [facility] MCH (RBC) [Entitic mass] 31.2 pg 26.0 - 34.0 pg [facility] MCHC (RBC) [Mass/Vol] 34.5 g/dL 30.5 - 36.0 g/dL [facility] MCV (RBC) [Entitic vol] 90.5 fL 80.0 - 100.0 fL [facility] Monocytes (Bld) [#/Vol] 0.71 10*3/uL [facility] Monocytes/100 WBC (Bld) 8.2 % [facility] Neutrophils (Bld) [#/Vol] 6.77 10*3/uL [facility] Neutrophils/100 WBC (Bld) 77.7 % [facility] Nucleated RBC (Bld) [#/Vol] [facility] Nucleated RBC/100 WBC (Bld) [Ratio] 0 % /100 WBC [facility] Platelet mean volume (Bld) [Entitic vol] 9.5 fL 9.0 - 12.7 fL [facility] Platelets (Bld) [#/Vol] 136 10*3/uL Low [facility] RBC (Bld) [#/Vol] 3.78 10*6/uL Low 3.90 - 5.2 0 m/uL [facility] WBC (Bld) [#/Vol] 8.71 10*3/uL [facility] Comprehensive metabolic 2000 panelOrdered By: Larisa Allan on 03-15-2025 Albumin [Mass/Vol] 4.2 g/dL 3.9 - 4.9 g/dL [facility] ALP [Catalytic activity/Vol] 65 U/L 34 - 123 U/L [facility] ALT [Catalytic activity/Vol] 13 U/L 7 - 38 U/L [facility] Anion gap [Moles/Vol] 11 mmol/L 8 - 15 mmol/L [facility] AST [Catalytic activity/Vol] 16 U/L 13 - 35 U/L [facility] Bilirubin [Mass/Vol] 0.4 mg/dL 0.2 - 1 .3 mg/dL [facility] Calcium [Mass/Vol] 9.4 mg/dL 8.5 - 10. 2 mg/dL [facility] Chloride [Moles/Vol] 103 mmol/L 98 - 10 7 mmol/L [facility] CO2 [Moles/Vol] 23 mmol/L 22 - 30 mmol/L [facility] Creatinine [Mass/Vol] 1.16 mg/dL High 0.58 - 0.96 mg/dL [facility] GFR/1.73 sq M.predicted among non-blacks MDRD (S/P/Bld) [Vol rate/Area] 54 mL/min/{1.73_m2} Low - PINF [facility] Comment on above: Estimated Glomerular Filtration Rate (eGFR) is calculated using the 2020 CKD-EPI creatinine equation. This equation utilizes serum creatinine, sex, and age as parameters. The creatinine assay has traceable calibration to isotope dilution-mass spectrometry. Refer to KDIGO guidelines for clinical interpretation. In patients with unstable renal function, e.g. those with acute kidney injury, the eGFR may not accurately reflect actual GFR. Glucose [Mass/Vol] 106 mg/dL High 74 - 99 mg/dL [facility] Comment on above: The [place] Di[employer] Association (ADA) provides guidance for cutoff values for fasting glucose and random glucose. The ADA defines fasting as no caloric intake for at least 8 hours. Fasting plasma glucose results between 100 to 125 mg/dL indicate increased risk for diabetes (prediabetes). Fasting plasma glucose results greater than or equal to 126 mg/dL meet the criteria for diagnosis of diabetes. In the absence of unequivocal hyperglycemia, results should be confirmed by repeat testing. In a patient with classic symptoms of hyperglycemia or hyperglycemic crisis, random plasma glucose results greater than or equal to 200 mg/dL meet the criteria for diagnosis of diabetes. Reference: Standards of Medical Care in Diabetes 2016, [place] [employer]. Diabetes Care. 2016.39(Suppl 1). Interpretation and review of laboratory results Abnormal [facility] [facility] Potassium [Moles/Vol] 3.8 mmol/L 3.7 - 5.1 mmol/L [facility] Protein [Mass/Vol] 6.3 g/dL 6.3 - 8.0 g/dL [facility] Sodium [Moles/Vol] 137 mmol/L 136 - 144 mmol/L [facility] Urea nitrogen [Mass/Vol] 21 mg/dL 7 - 21 mg/dL [facility] CBC W Auto Differential pane l (Bld)on 03-08-2025 Basophils (Bld) [#/Vol] 0.04 10*3/uL [facility] Basophils/100 WBC (Bld) 0.5 % [facility] Differential cell count method Nom (Bld) Auto [facility] Eosinophils (Bld) [#/Vol] 0.11 10*3/uL [facility] Eosinophils/100 WBC (Bld) 1.4 % [facility] Erythrocyte distribution width (RBC) [Ratio] 13.5 % 11.5 - 15.0 % [facility] Hematocrit (Bld) [Volume fraction] 36 % 36.0 - 46.0 % [facility] Hemoglobin (Bld) [Mass/Vol] 12.3 g/dL 11.5 - 15.5 g/dL [facility] Immature granulocytes (Bld) [#/Vol] [facility] Immature granulocytes/100 WBC (Bld) 0.2 % [facility] Lymphocytes (Bld) [#/Vol] 1.25 10*3/uL [facility] Lymphocytes/100 WBC (Bld) 15.6 % [facility] MCH (RBC) [Entitic mass] 31.2 pg 26.0 - 34.0 pg [facility] MCHC (RBC) [Mass/Vol] 34.2 g/dL 30.5 - 36.0 g/dL [facility] MCV (RBC) [Entitic vol] 91.4 fL 80.0 - 100.0 fL [facility] Monocytes (Bld) [#/Vol] 0.71 10*3/uL [facility] Monocytes/100 WBC (Bld) 8.9 % [facility] Neutrophils (Bld) [#/Vol] 5.88 10*3/uL [facility] Neutrophils/100 WBC (Bld) 73.4 % [facility] Nucleated RBC (Bld) [#/Vol] [facility] Nucleated RBC/100 WBC (Bld) [Ratio] 0 % /100 WBC [facility] Platelet mean volume (Bld) [Entitic vol] 9.5 fL 9.0 - 12.7 fL [facility] Platelets (Bld) [#/Vol] 151 10*3/uL [facility] RBC (Bld) [#/Vol] 3.94 10*6/uL 3.90 - 5.2 0 m/uL [facility] WBC (Bld) [#/Vol] 8.01 10*3/uL [facility] CBC W Auto Differential pane l (Bld)on 02-22-2025 Basophils (Bld) [#/Vol] [facility] Basophils/100 WBC (Bld) 0.3 % [facility] Differential cell count method Nom (Bld) Auto [facility] Eosinophils (Bld) [#/Vol] 0.04 10*3/uL [facility] Eosinophils/100 WBC (Bld) 0.6 % [facility] Erythrocyte distribution width (RBC) [Ratio] 12.7 % 11.5 - 15.0 % [facility] Hematocrit (Bld) [Volume fraction] 35.3 % Low 36.0 - 46.0 % [facility] Hemoglobin (Bld) [Mass/Vol] 12 g/dL 11.5 - 15.5 g/dL [facility] Immature granulocytes (Bld) [#/Vol] [facility] Immature granulocytes/100 WBC (Bld) 0.3 % [facility] Interpretation and review of laboratory results Abnormal [facility] Lymphocytes (Bld) [#/Vol] 1.07 10*3/uL [facility] Lymphocytes/100 WBC (Bld) 17.1 % [facility] MCH (RBC) [Entitic mass] 30.6 pg 26.0 - 34.0 pg [facility] MCHC (RBC) [Mass/Vol] 34 g/dL 30.5 - 36.0 g/dL [facility] MCV (RBC) [Entitic vol] 90.1 fL 80.0 - 100.0 fL [facility] Monocytes (Bld) [#/Vol] 0.65 10*3/[facility] Monocytes/100 WBC (Bld) 10.4 % [facility] Neutrophils (Bld) [#/Vol] 4.46 10*3/uL [facility] Neutrophils/100 WBC (Bld) 71.3 % [facility] Nucleated RBC (Bld) [#/Vol] 0.02 10*3/uL High NINF [facility] Nucleated RBC/100 WBC (Bld) [Ratio] 0.3 % /100 WBC [facility] Platelet mean volume (Bld) [Entitic vol] 9.4 fL 9.0 - 12.7 fL [facility] Platelets (Bld) [#/Vol] 152 10*3/uL [facility] RBC (Bld) [#/Vol] 3.92 10*6/uL 3.90 - 5.2 0 m/uL [facility] WBC (Bld) [#/Vol] 6.26 10*3/uL [facility] Comprehensive metabolic 2000 panelOrdered By: Larisa Allan on 02-22-2025 Albumin [Mass/Vol] 4 g/dL 3.9 - 4.9 g/dL [facility] ALP [Catalytic activity/Vol] 71 U/L 34 - 123 U/L [facility] ALT [Catalytic activity/Vol] 10 U/L 7 - 38 U/L [facility] Anion gap [Moles/Vol] 13 mmol/L 8 - 15 mmol/L [facility] AST [Catalytic activity/Vol] 11 U/L Low 13 - 35 U/L [facility] Bilirubin [Mass/Vol] 0.3 mg/dL 0.2 - 1 .3 mg/dL [facility] Calcium [Mass/Vol] 9.5 mg/dL 8.5 - 10. 2 mg/dL [facility] Chloride [Moles/Vol] 101 mmol/L 98 - 10 7 mmol/L [facility] CO2 [Moles/Vol] 23 mmol/L 22 - 30 mmol/L [facility] Creatinine [Mass/Vol] 0.94 mg/dL 0.58 - 0.96 mg/dL [facility] GFR/1.73 sq M.predicted among non-blacks MDRD (S/P/Bld) [Vol rate/Area] 70 mL/min/{1.73_m2} - PINF [facility] Comment on above: Estimated Glomerular Filtration Rate (eGFR) is calculated using the 2020 CKD-EPI creatinine equation. This equation utilizes serum creatinine, sex, and age as parameters. The creatinine assay has traceable calibration to isotope dilution-mass spectrometry. Refer to KDIGO guidelines for clinical interpretation. In patients with unstable renal function, e.g. those with acute kidney injury, the eGFR may not accurately reflect actual GFR. Glucose [Mass/Vol] 100 mg/dL High 74 - 99 mg/dL [facility] Comment on above: The [place] Di[employer] Association (ADA) provides guidance for cutoff values for fasting glucose and random glucose. The ADA defines fasting as no caloric intake for at least 8 hours. Fasting plasma glucose results between 100 to 125 mg/dL indicate increased risk for diabetes (prediabetes). Fasting plasma glucose results greater than or equal to 126 mg/dL meet the criteria for diagnosis of diabetes. In the absence of unequivocal hyperglycemia, results should be confirmed by repeat testing. In a patient with classic symptoms of hyperglycemia or hyperglycemic crisis, random plasma glucose results greater than or equal to 200 mg/dL meet the criteria for diagnosis of diabetes. Reference: Standards of Medical Care in Diabetes 2016, [place] [employer]. Diabetes Care. 2016.39(Suppl 1). Interpretation and review of laboratory results Abnormal [facility] Potassium [Moles/Vol] 4.3 mmol/L 3.7 - 5.1 mmol/L [facility] Protein [Mass/Vol] 6.4 g/dL 6.3 - 8.0 g/dL [facility] Sodium [Moles/Vol] 137 mmol/L 136 - 144 mmol/L [facility] Urea nitrogen [Mass/Vol] 16 mg/dL 7 - 21 mg/dL [facility] Urgent Care Visit Reporton 0 02-20-2025 Urgent Care Visit Report Normal [facility] 12 Lead EKGon 02-18-2025 12 Lead EKG Normal [facility] Absolute lymphocyte countOrd ered By: Kingsley Kunz on 02-18-2025 Lymphocytes Auto (Unsp spec) [#/Vol] 0.62 10*3/uL Low 0.83-4.51 [facility] Absolute neutrophil countOrd ered By: Kingsley Kunz on 02-18-2025 Neutrophils (Bld) [#/Vol] 4.8 10*3/uL 2.0-7.7 [facility] Anion gap in Serum or Plasma Ordered By: Kingsley Kunz on 02-18-2025 Anion gap [Moles/Vol] 11 mmol/L - [facility] Automated lymphocyte count a s percentage of total leukocytesOrdered By: Kingsley Kunz on 02-18-2025 Lymphocytes/100 WBC Auto (Unsp spec) 10.1 % Low - [facility] BUN/creatinine ratioOrdered By: Kingsley Kunz on 02-18-2025 Urea nitrogen/Creatinine [Mass ratio] 12.5 mg/mg - [facility] Basic Metabolic Profile (BMP )on 02-18-2025 BUN/CRE 12.5 RATIO Normal - [facility] Comment on above: Performed By: #### L 503.6005, L500.2500, L500.4050 ####[facility] [address] [place], [address] Calcium [Mass/Vol] 9.5 mg/dL Normal 7.6-11.0 [facility] Comment on above: Performed By: #### L 503.6005, L500.2500, L500.4050 ####[facility] [address] [place], [address] Chloride [Moles/Vol] 101 mmol/L Normal 98-108 [facility] Comment on above: Performed By: #### L 503.6005, L500.2500, L500.4050 ####[facility] [address] [place], [address] CO2 [Moles/Vol] 26.4 mmol/L Normal 21.0-32.0 [facility] Comment on above: Performed By: #### L 503.6005, L500.2500, L500.4050 ####[facility] [address] [place], [address] Creatinine [Mass/Vol] 0.93 mg/dL Normal 0.70-1.20 [facility] Comment on above: Performed By: #### L 503.6005, L500.2500, L500.4050 ####[facility] [address] [place], [address] GAP 11 Normal 5-15 [facility] Comment on above: Performed By: #### L 503.6005, L500.2500, L500.4050 ####[facility] [address] [place], [address] GFR/1.73 sq M.predicted among non-blacks MDRD (S/P/Bld) [Vol rate/Area] 70 mL/min/{1.73_m2} Normal >60 [facility] Comment on above: Result Comment: mL/m in/1.73m2 CKD-EPI Creatinine Equation (2020) Performed By: #### L 503.6005, L500.2500, L500.4050 ####[facility] [address] [place], [address] Glucose [Mass/Vol] 99 mg/dL Normal 70-99 [facility] Comment on above: Performed By: #### L 503.6005, L500.2500, L500.4050 ####[facility] [address] [place], [address] Potassium [Moles/Vol] 3.8 mmol/L Normal 3.3-5.1 [facility] Comment on above: Performed By: #### L 503.6005, L500.2500, L500.4050 ####[facility] [address] [place], [address] Sodium [Moles/Vol] 138 mmol/L Normal 133-145 [facility] Comment on above: Performed By: #### L 503.6005, L500.2500, L500.4050 ####[facility] [address] [place], [address] Urea nitrogen [Mass/Vol] 12 mg/dL Normal 4-19 [facility] Comment on above: Performed By: #### L 503.6005, L500.2500, L500.4050 ####[facility] [address] [place], [address] Basophil percentageOrdered B y: Kingsley Kunz on 02-18-2025 Basophils/100 WBC (Bld) 0.5 % 0-1 [facility] Bilirubin Test strip Ql (U)O rdered By: Kingsley Kunz on 02-18-2025 Bilirubin Ql (U) Negative Negative [facility] Bilirubin, totalOrdered By: Kingsley Kunz on 02-18-2025 Bilirubin [Mass/Vol] 0.37 mg/dL 0.00-1.30 [facility] CBC W/Diff, Automatedon 02-07-2024 Absolute Lymph 0.62 X10 3/uL Low 0.83-4.51 [facility] Comment on above: Performed By: #### L 100.0100 ####[facility] [address] [place], [address] Absolute Neut 4.8 X10 3/uL Normal 2.0-7.7 [facility] Comment on above: Performed By: #### L 100.0100 ####[facility] [address] [place], [address] Basophils/100 WBC (Bld) 0.5 % Normal 0-1 [facility] Comment on above: Performed By: #### L 100.0100 ####[facility] [address] [place], [address] Eosinophils/100 WBC (Bld) 1.1 % Normal 0-5 [facility] Comment on above: Performed By: #### L 100.0100 ####[facility] [address] [place], [address] Erythrocyte distribution width (RBC) [Ratio] 13.1 % Normal 11.6-14.6 [facility] Comment on above: Performed By: #### L 100.0100 ####[facility] [address] [place], [address] Hematocrit (Bld) [Volume fraction] 37.3 % Normal 37-47 [facility] Comment on above: Performed By: #### L 100.0100 ####[facility] [address] [place], [address] Hemoglobin (Bld) [Mass/Vol] 12.6 g/dL Normal 12.0-15.0 [facility] Comment on above: Performed By: #### L 100.0100 ####[facility] [address] [place], [address] IG% 0.300 Normal 0.0-0.9 [facility] Comment on above: Result Comment: IG% - Immature Granulocytes (promyelocytes, myelocytes andmetamyelocytes) > 1% indicates that a LEFT SHIFT is Present. Performed By: #### L 100.0100 ####[facility] [address] [place], [address] Lymphocytes/100 WBC (Bld) 10.1 % Low 19-41 [facility] Comment on above: Performed By: #### L 100.0100 ####[facility] [address] [place], [address] MCH (RBC) [Entitic mass] 31.2 pg Normal 27.0-32.0 [facility] Comment on above: Performed By: #### L 100.0100 ####[facility] [address] [place], [address] MCHC (RBC) [Mass/Vol] 33.8 g/dL Normal 32-36 [facility] Comment on above: Performed By: #### L 100.0100 ####[facility] [address] [place], [address] MCV (RBC) [Entitic vol] 92.3 fL Normal 81-99 [facility] Comment on above: Performed By: #### L 100.0100 ####[facility] [address] [place], [address] Monocytes/100 WBC (Bld) 10.6 % High 0-10 [facility] Comment on above: Performed By: #### L 100.0100 ####[facility] [address] [place], [address] Neutrophils/100 WBC (Bld) 77.4 % High 47-70 [facility] Comment on above: Performed By: #### L 100.0100 ####[facility] [address] [place], [address] Nucleated RBC (Bld) [#/Vol] 0 10*3/uL Normal 0-5 [facility] Comment on above: Performed By: #### L 100.0100 ####[facility] [address] [place], [address] Platelet mean volume (Bld) [Entitic vol] 9.4 fL Normal 6.2-12.0 [facility] Comment on above: Performed By: #### L 100.0100 ####[facility] [address] [place], [address] Platelets (Bld) [#/Vol] 158 10*3/uL Normal 150-450 [facility] Comment on above: Performed By: #### L 100.0100 ####[facility] [address] [place], [address] RBC (Bld) [#/Vol] 4.04 10*6/uL Low 4.2-5.4 [facility] Comment on above: Performed By: #### L 100.0100 ####[facility] [address] [place], [address] RDW SD 44.6 fl High 35.1-43.9 [facility] Comment on above: Performed By: #### L 100.0100 ####[facility] [address] [place], [address] WBC (Bld) [#/Vol] 6.2 10*3/uL Normal 4.4-11.0 [facility] Comment on above: Performed By: #### L 100.0100 ####[facility] [address] [place], [address] Carbon dioxide, total [Moles /volume] in Central venous bloodOrdered By: Kingsley Kunz on 02-18-2025 CO2 [Moles/Vol] 26.4 mmol/L 21.0-32.0 [facility] Chest PA and Lateralon 02-18 Chest PA and Lateral Normal [facility] Chloride assayOrdered By: Basil Kunz on 02-18-2025 Chloride [Moles/Vol] 101 mmol/L 98-108 [facility] Metabolic Prof ilon 02-18-2025 Albumin [Mass/Vol] 4.1 g/dL Normal 3.4-4.8 [facility] Comment on above: Performed By: #### L 503.6005, L500.2500, L500.4050 ####[facility] [address] [place], [address] Albumin/Globulin [Mass ratio] 1.6 {ratio} Normal 0.9-2.4 [facility] Comment on above: Performed By: #### L 503.6005, L500.2500, L500.4050 ####[facility] [address] [place], [address] ALK PHOS 76 U/L Normal 35-104 [facility] Comment on above: Performed By: #### L 503.6005, L500.2500, L500.4050 ####[facility] [address] [place], [address] ALT [Catalytic activity/Vol] 13 U/L Normal <=34 [facility] Comment on above: Performed By: #### L 503.6005, L500.2500, L500.4050 ####[facility] [address] [place], [address] AST [Catalytic activity/Vol] 16 U/L Normal <=31 [facility] Comment on above: Performed By: #### L 503.6005, L500.2500, L500.4050 ####[facility] [address] [place], [address] Bilirubin [Mass/Vol] 0.37 mg/dL Normal 0.00-1.30 [facility] Comment on above: Performed By: #### L 503.6005, L500.2500, L500.4050 ####[facility] [address] [place], [address] Globulin (S) [Mass/Vol] 2.6 g/dL Normal 2.2-4.2 [facility] Comment on above: Performed By: #### L 503.6005, L500.2500, L500.4050 ####[facility] [address] [place], [address] T PROT 6.7 g/dL Normal 5.9-8.4 [facility] Comment on above: Performed By: #### L 503.6005, L500.2500, L500.4050 ####[facility] [address] [place], [address] Emergency Department Summary on 02-18-2025 Emergency Department Summary Normal [facility] Eosinophil percentageOrdered By: Kingsley Kunz on 02-18-2025 Eosinophils/100 WBC (Bld) 1.1 % 0-5 [facility] Erythrocyte distribution wid th ratioOrdered By: Kingsley Kunz on 02-18-2025 Erythrocyte distribution width (RBC) [Ratio] 13.1 % 11.6-14.6 [facility] Erythrocyte distribution wid th standard deviationOrdered By: Kingsley Kunz on 02-18-2025 Erythrocyte distribution width (RBC) [Ratio] 44.6 fl High 35.1-43.9 [facility] Glomerular filtration rate ( GFR) estimation/1.73 sq m using serum, plasma, or whole bOrdered By: Kingsley Kunz on 02-18-2025 GFR/1.73 sq M.predicted among non-blacks MDRD (S/P/Bld) [Vol rate/Area] 70 mL/min/{1.73_m2} >60 [facility] Comment on above: mL/min/1.73m2 CKD-EP I Creatinine Equation (2020) Hematocrit Auto (Bld) [Volum e fraction]Ordered By: Kingsley Kunz on 02-18-2025 Hematocrit (Bld) [Volume fraction] 37.3 % 37-47 [facility] Hemoglobin measurementOrdere d By: Kingsley Kunz on 02-18-2025 Hemoglobin (Bld) [Mass/Vol] 12.6 g/dL 12.0-15.0 [facility] Immature granulocytes/100 WB C Auto (Bld)Ordered By: Kingsley Kunz on 02-18-2025 Immature granulocytes/100 WBC (Bld) 0.300 % 0.0-0.9 [facility] Comment on above: IG% - Immature Granu locytes (promyelocytes, myelocytes and metamyelocytes) > 1% indicates that a LEFT SHIFT is Present. Influenza virus A and B and SARS-CoV-2 (COVID-19) and Respiratory syncytial virus RNAOrdered By: Kingsley Kunz on 02-18-2025 SARS-CoV-2 (COVID-19) RNA FRANKIE+probe Ql (Unsp spec) [facility] Ketones Test strip Ql (U)Ord ered By: Kingsley Kunz on 02-18-2025 Ketones Ql (U) Negative Negative [facility] Laboratory - Chemistry and C hemistry - challengeOrdered By: Kingsley Kunz on 02-18-2025 AST [Catalytic activity/Vol] 16 U/L <32 [facility] Lactic Acidon 02-18-2025 Lactate [Moles/Vol] mmol/L Normal 0.0-2.0 [facility] Comment on above: Order Comment: Y Performed By: #### L 503.6005, L500.2500, L500.4050 ####[facility] [address] [place], [place], [address] Lactic acid measurementOrder ed By: Kingsley Kunz on 02-18-2025 Lactate [Moles/Vol] mmol/L 0.0-2.0 [facility] M100.678on 02-18-2025 M100.678 Pending SARS-CoV-2 (COVID 19) Negative INFLUENZA A Negative INFLUENZA B Negative RSV PCR Negative Normal [facility] Comment on above: Performed By: #### M 100.678 ####[facility] [address] [place], [place], [address] MCV (mean corpuscular volume ) determinationOrdered By: Kingsley Kunz on 02-18-2025 MCV (RBC) [Entitic vol] 92.3 fL 81-99 [facility] Mean corpuscular hemoglobin (MCH) determinationOrdered By: Kingsley Kunz on 02-18-2025 MCH (RBC) [Entitic mass] 31.2 pg 27.0-32.0 [facility] Mean corpuscular hemoglobin concentration (MCHC) determinationOrdered By: Kingsley Kunz on 02-18-2025 MCHC (RBC) [Mass/Vol] 33.8 g/dL 32-36 [facility] Mean platelet volume determi nationOrdered By: Kingsley Kunz on 02-18-2025 Platelet mean volume (Bld) [Entitic vol] 9.4 fL 6.2-12.0 [facility] Microscopic analysis of urin e for red blood cells (RBC)Ordered By: Kingsley Kunz on 02-18-2025 Microscopic analysis of urine for red blood cells (RBC) 0-5 SEEN /hpf 0-5 [facility] Monocyte percentageOrdered B y: Kingsley Kunz on 02-18-2025 Monocytes/100 WBC (Bld) 10.6 % High 0-10 [facility] Mucus LM Ql (Urine sed)Order ed By: Kingsley Kunz on 02-18-2025 Mucus Ql (Urine sed) 0 SEEN /hpf [facility] Neutrophil percentageOrdered By: Kingsley Kunz on 02-18-2025 Neutrophils/100 WBC (Bld) 77.4 % High 47-70 [facility] Nitrite Test strip Ql (U)Ord ered By: Kingsley Kunz on 02-18-2025 Nitrite Ql (U) Negative Negative [facility] Nucleated red blood cell per centageOrdered By: Kingsley Kunz on 02-18-2025 Nucleated RBC/100 WBC (Bld) [Ratio] 0 % 0-5 [facility] Platelet countOrdered By: Basil Kunz on 02-18-2025 Platelets (Bld) [#/Vol] 158 10*3/uL 150-450 [facility] Potassium measurement (mass/ volume)Ordered By: Kingsley Kunz on 02-18-2025 Potassium (Unsp spec) [Mass/Vol] 3.8 mmol/L 3.3-5.1 [facility] Protein Test strip Ql (U)Ord ered By: Kingsley Kunz on 02-18-2025 Protein Ql (U) 15 mg/dl High Negative [facility] RBC Auto (Bld) [#/Vol]Ordere d By: Kingsley Kunz on 02-18-2025 RBC (Bld) [#/Vol] 4.04 10*6/uL Low 4.2-5.4 [facility] Serum creatinine measurement (mass/volume)Ordered By: Kingsley Kunz on 02-18-2025 Creatinine [Mass/Vol] 0.93 mg/dL 0.70-1.20 [facility] Serum globulin measurementOr dered By: Kingsley Kunz on 02-18-2025 Globulin (S) [Mass/Vol] 2.6 g/dL 2.2-4.2 [facility] Serum glucose measurement (m ass/volume)Ordered By: Kingsley Kunz on 02-18-2025 Glucose [Mass/Vol] 99 mg/dL 70-99 [facility] Serum or plasma alanine grant otransferase (ALT) measurementOrdered By: Kingsley Kunz on 02-18-2025 ALT [Catalytic activity/Vol] 13 U/L <35 [facility] Serum or plasma albumin gurinder urement (mass/volume)Ordered By: Kingsley Kunz on 02-18-2025 Albumin [Mass/Vol] 4.1 g/dL 3.4-4.8 [facility] Serum or plasma albumin/glob ulin mass ratioOrdered By: Kingsley Kunz on 02-18-2025 Albumin/Globulin [Mass ratio] 1.6 {ratio} 0.9-2.4 [facility] Serum or plasma alkaline owen sphatase measurementOrdered By: Kingsley Kunz on 02-18-2025 ALP [Catalytic activity/Vol] 76 U/L 35-104 [facility] Serum or plasma calcium gurinder urement (mass/volume)Ordered By: Kingsley Kunz on 02-18-2025 Calcium [Mass/Vol] 9.5 mg/dL 7.6-11.0 [facility] Serum or plasma urea nitroge n measurement (mass/volume)Ordered By: Kingsley Kunz on 02-18-2025 Urea nitrogen [Mass/Vol] 12 mg/dL 4-19 [facility] Sodium levelOrdered By: Daphnie Kunz on 02-18-2025 Sodium [Moles/Vol] 138 mmol/L 133-145 [facility] Squamous epithelial cells de tection in urine sediment by light microscopyOrdered By: Kingsley Kunz on 02-18-2025 Epithelial cells.squamous LM Ql (Urine sed) 0-5 SEEN /hpf 5-10 [facility] Total proteinOrdered By: Latrice Kunz on 02-18-2025 Protein [Mass/Vol] 6.7 g/dL 5.9-8.4 [facility] Urinalysis complete panel - Urineon 02-18-2025 Urinalysis complete panel (U) [facility] Urinalysis, Completeon 02-18 EPI,SQUAMOUS 0-5 SEEN Normal 5-10 [facility] Comment on above: Order Comment: Urine , Random Performed By: #### L 400.0001 ####[facility] [address] [place], [address] RBC 0-5 SEEN Normal 0-5 [facility] Comment on above: Order Comment: Urine , Random Performed By: #### L 400.0001 ####[facility] [address] [place], [address] WBC 0-5 SEEN Normal 0-5 [facility] Comment on above: Order Comment: Urine , Random Performed By: #### L 400.0001 ####[facility] [address] [place], [address] BACTERIA 0 SEEN Normal None Seen [facility] Comment on above: Order Comment: Urine , Random Performed By: #### L 400.0001 ####[facility] [address] [place], [address] Mucus Ql (Urine sed) 0 SEEN Normal [facility] Comment on above: Order Comment: Urine , Random Performed By: #### L 400.0001 ####[facility] [address] [place], [address] BACTERIA 0 SEEN Normal None Seen [facility] Comment on above: Order Comment: CLEAN CATCH Result Comment: This specimen has been REJECTED due to Laboratory criteria:MisLabelled.DEBORAH BARRIOS has been notified of need of recollection.02/18/251951 Shyla Krishna Performed By: #### L 400.0001 ####[facility] [address] [place], [address] EPI,SQUAMOUS 0 SEEN Normal 5-10 [facility] Comment on above: Order Comment: CLEAN CATCH Result Comment: This specimen has been REJECTED due to Laboratory criteria:MisLabelled.DEBORAH BARRIOS has been notified of need of recollection.02/18/251951 Shyla Krishna Performed By: #### L 400.0001 ####[facility] [address] [place], [address] Mucus Ql (Urine sed) 0 SEEN Normal [facility] Comment on above: Order Comment: CLEAN CATCH Result Comment: This specimen has been REJECTED due to Laboratory criteria:MisLabelled.DEBORAH BARRIOS has been notified of need of recollection.02/18/251951 Shyla Tomi Performed By: #### L 400.0001 ####[facility] [address] [place], [address] RBC 0 SEEN Normal 0-5 [facility] Comment on above: Order Comment: CLEAN CATCH Result Comment: This specimen has been REJECTED due to Laboratory criteria:MisLabelled.DEBORAH BARRIOS has been notified of need of recollection.02/18/251951 Shyla Krishna Performed By: #### L 400.0001 ####[facility] [address] [facility] [address] WBC 0 SEEN Normal [address] [place] [address] Comment on above: Order Comment: CLEAN CATCH Result Comment: This specimen has been REJECTED due to Laboratory criteria:MisLabelled.DEBORAH BARRIOS has been notified of need of recollection.02/18/251951 Shyla Tomi Performed By: #### L 400.0001 ####[facility] [address] [facility] [address] BILIRUBIN URINE Normal Negative [facility] Comment on above: Order Comment: CLEAN CATCH Result Comment: This specimen has been REJECTED due to Laboratory criteria:MisLabelled.DEBORAH BARRIOS has been notified of need of recollection.02/18/251951 Shyla Tomi Performed By: #### L 400.0001 ####[facility] [address] [place], [address] Clarity (U) Normal Clear [facility] Comment on above: Order Comment: CLEAN CATCH Result Comment: This specimen has been REJECTED due to Laboratory criteria:MisLabelled.DEBORAH BARRIOS has been notified of need of recollection.02/18/251951 Shyla Tomi Performed By: #### L 400.0001 ####[facility] [address] [place], [address] Color (U) Normal Yellow [facility] Comment on above: Order Comment: CLEAN CATCH Result Comment: This specimen has been REJECTED due to Laboratory criteria:MisLabelled.DEBORAH BARRIOS has been notified of need of recollection.02/18/251951 Shyla Tomi Performed By: #### L 400.0001 ####[facility] [address] [place], [address] GLUCOSE, UR Normal Normal [facility] Comment on above: Order Comment: CLEAN CATCH Result Comment: This specimen has been REJECTED due to Laboratory criteria:MisLabelled.DEBORHA BARRIOS has been notified of need of recollection.02/18/251951 Shyla Tomi Performed By: #### L 400.0001 ####[facility] [address] [place], [address] KETONE UR Normal Negative [facility] Comment on above: Order Comment: CLEAN CATCH Result Comment: This specimen has been REJECTED due to Laboratory criteria:MisLabelled.DEBORAH BARRIOS has been notified of need of recollection.02/18/251951 Shyla Tomi Performed By: #### L 400.0001 ####[facility] [address] [facility] [address] LEUK ESTERASE Normal Negative [facility] Comment on above: Order Comment: CLEAN CATCH Result Comment: This specimen has been REJECTED due to Laboratory criteria:MisLabelled.DEBORAH BARRIOS has been notified of need of recollection.02/18/251951 Shyla Tomi Performed By: #### L 400.0001 ####[facility] [address] [place], [address] Nitrite Ql (U) Normal Negative [facility] Comment on above: Order Comment: CLEAN CATCH Result Comment: This specimen has been REJECTED due to Laboratory criteria:MisLabelled.DEBORAH BARRIOS has been notified of need of recollection.02/18/251951 Shyla Krishna Performed By: #### L 400.0001 ####[facility] [address] [place], [address] OCCULT BLOOD-UR Normal Negative [facility] Comment on above: Order Comment: CLEAN CATCH Result Comment: This specimen has been REJECTED due to Laboratory criteria:MisLabelled.DEBORAH BARRIOS has been notified of need of recollection.02/18/251951 Shyla Krishna Performed By: #### L 400.0001 ####[facility] [address] [place], [address] pH UR Normal 5.0 - 8.0 [facility] Comment on above: Order Comment: CLEAN CATCH Result Comment: This specimen has been REJECTED due to Laboratory criteria:MisLabelled.DEBORAH BARRIOS has been notified of need of recollection.02/18/251951 Shyla Krishna Performed By: #### L 400.0001 ####[facility] [address] [place], [address] PROT DIPSTX Normal Negative [facility] Comment on above: Order Comment: CLEAN CATCH Result Comment: This specimen has been REJECTED due to Laboratory criteria:MisLabelled.DEBORAH BARRIOS has been notified of need of recollection.02/18/251951 Shyla Krishna Performed By: #### L 400.0001 ####[facility] [address] [place], [address] SP.GR. DIPSTX Normal 1.002-1.030 [facility] Comment on above: Order Comment: CLEAN CATCH Result Comment: This specimen has been REJECTED due to Laboratory criteria:MisLabelled.DEBORAH BARRIOS has been notified of need of recollection.02/18/251951 Shyla Krishna Performed By: #### L 400.0001 ####[facility] [address] [place], [address] UR Preservative Normal [facility] Comment on above: Order Comment: CLEAN CATCH Result Comment: This specimen has been REJECTED due to Laboratory criteria:MisLabelled.DEBORAH BARRIOS has been notified of need of recollection.02/18/251951 Shyla Krishna Performed By: #### L 400.0001 ####[facility] [address] [place], [address] UROBILI Normal Normal [facility] Comment on above: Order Comment: CLEAN CATCH Result Comment: This specimen has been REJECTED due to Laboratory criteria:MisLabelled.DEBORAH BARRIOS has been notified of need of recollection.02/18/251951 Shyla Krishna Performed By: #### L 400.0001 ####[facility] [address] [place], [place], [address] Urine clarityOrdered By: Latrice Kunz on 02-18-2025 Clarity (U) Clear Clear [facility] Urine color determinationOrd ered By: Kingsley Kunz on 02-18-2025 Color (U) Yellow Yellow [facility] Urine glucose detectionOrder ed By: Kingsley Kunz on 02-18-2025 Glucose Ql (U) Normal mg/dl Normal [facility] Urine leukocyte esterase det ection by dipstickOrdered By: Kingsley Kunz on 02-18-2025 Leukocyte esterase Test strip Ql (U) Negative Negative [facility] Urine pHOrdered By: Kingsley galvan on 02-18-2025 pH (U) 5.0 [pH] 5.0 - 8.0 [facility] Urine sediment bacteria coun t by microscopy (number/high power field)Ordered By: Kingsley Kunz on 02-18-2025 Bacteria LM.HPF (Urine sed) [#/Area] 0 /[HPF] None Seen [facility] Urine specific gravity measu rementOrdered By: Kingsley Kunz on 02-18-2025 Specific gravity (U) [Rel density] 1.025 1.002-1.030 [facility] Urine urobilinogen measureme ntOrdered By: Kingsley Kunz on 02-18-2025 Urobilinogen Ql (U) Normal mg/dl Normal [facility] White blood cell (WBC) count Ordered By: Kingsley Kunz on 02-18-2025 WBC (Bld) [#/Vol] 6.2 10*3/uL 4.4-11.0 [facility] White blood cell countOrdere d By: Kingsley Kunz on 02-18-2025 White blood cell count 0-5 SEEN /hpf 0-5 [facility] CBC W Auto Differential pane l (Bld)on 02-15-2025 Basophils (Bld) [#/Vol] 0.03 10*3/uL [facility] Basophils/100 WBC (Bld) 0.5 % [facility] Differential cell count method Nom (Bld) Auto [facility] Eosinophils (Bld) [#/Vol] 0.05 10*3/uL [facility] Eosinophils/100 WBC (Bld) 0.8 % [facility] Erythrocyte distribution width (RBC) [Ratio] 12.7 % 11.5 - 15.0 % [facility] Hematocrit (Bld) [Volume fraction] 35.1 % Low 36.0 - 46.0 % [facility] Hemoglobin (Bld) [Mass/Vol] 11.9 g/dL 11.5 - 15.5 g/dL [facility] Immature granulocytes (Bld) [#/Vol] [facility] Immature granulocytes/100 WBC (Bld) 0.3 % [facility] Interpretation and review of laboratory results Abnormal [facility] Lymphocytes (Bld) [#/Vol] 0.75 10*3/uL Low [facility] Lymphocytes/100 WBC (Bld) 12.4 % [facility] MCH (RBC) [Entitic mass] 30.6 pg 26.0 - 34.0 pg [facility] MCHC (RBC) [Mass/Vol] 33.9 g/dL 30.5 - 36.0 g/dL [facility] MCV (RBC) [Entitic vol] 90.2 fL 80.0 - 100.0 fL [facility] Monocytes (Bld) [#/Vol] 0.83 10*3/uL [facility] Monocytes/100 WBC (Bld) 13.7 % [facility] Neutrophils (Bld) [#/Vol] 4.38 10*3/uL [facility] Neutrophils/100 WBC (Bld) 72.3 % [facility] Nucleated RBC (Bld) [#/Vol] [facility] Nucleated RBC/100 WBC (Bld) [Ratio] 0 % /100 WBC [facility] Platelet mean volume (Bld) [Entitic vol] 9.5 fL 9.0 - 12.7 fL [facility] Platelets (Bld) [#/Vol] 149 10*3/uL Low [facility] RBC (Bld) [#/Vol] 3.89 10*6/uL Low 3.90 - 5.2 0 m/uL [facility] WBC (Bld) [#/Vol] 6.06 10*3/uL [facility] CBC W Auto Differential pane l (Bld)on 02-13-2025 Basophils (Bld) [#/Vol] 0.03 10*3/uL [facility] Basophils/100 WBC (Bld) 0.4 % [facility] Differential cell count method Nom (Bld) Auto [facility] Eosinophils (Bld) [#/Vol] 0.04 10*3/uL [facility] Eosinophils/100 WBC (Bld) 0.5 % [facility] Erythrocyte distribution width (RBC) [Ratio] 12.9 % 11.5 - 15.0 % [facility] Hematocrit (Bld) [Volume fraction] 34.1 % Low 36.0 - 46.0 % [facility] Hemoglobin (Bld) [Mass/Vol] 11.6 g/dL 11.5 - 15.5 g/dL [facility] Immature granulocytes (Bld) [#/Vol] 0.03 10*3/uL [facility] Immature granulocytes/100 WBC (Bld) 0.4 % [facility] Interpretation and review of laboratory results Abnormal [facility] Lymphocytes (Bld) [#/Vol] 0.79 10*3/uL Low [facility] Lymphocytes/100 WBC (Bld) 9.5 % [facility] MCH (RBC) [Entitic mass] 30.9 pg 26.0 - 34.0 pg [facility] MCHC (RBC) [Mass/Vol] 34 g/dL 30.5 - 36.0 g/dL [facility] MCV (RBC) [Entitic vol] 90.7 fL 80.0 - 100.0 fL [facility] Monocytes (Bld) [#/Vol] 0.56 10*3/uL [facility] Monocytes/100 WBC (Bld) 6.7 % [facility] Neutrophils (Bld) [#/Vol] 6.85 10*3/uL [facility] Neutrophils/100 WBC (Bld) 82.5 % [facility] Nucleated RBC (Bld) [#/Vol] [facility] Nucleated RBC/100 WBC (Bld) [Ratio] 0 % /100 WBC [facility] Platelet mean volume (Bld) [Entitic vol] 9.6 fL 9.0 - 12.7 fL [facility] Platelets (Bld) [#/Vol] 182 10*3/uL [facility] RBC (Bld) [#/Vol] 3.76 10*6/uL Low 3.90 - 5.2 0 m/uL [facility] WBC (Bld) [#/Vol] 8.3 10*3/uL [facility] CBC W Auto Differential pane l (Bld)on 02-06-2025 Basophils (Bld) [#/Vol] 0.03 10*3/uL [facility] Basophils/100 WBC (Bld) 0.4 % [facility] Differential cell count method Nom (Bld) Auto [facility] Eosinophils (Bld) [#/Vol] 0.06 10*3/uL [facility] Eosinophils/100 WBC (Bld) 0.7 % [facility] Erythrocyte distribution width (RBC) [Ratio] 12.6 % 11.5 - 15.0 % [facility] Hematocrit (Bld) [Volume fraction] 36.6 % 36.0 - 46.0 % [facility] Hemoglobin (Bld) [Mass/Vol] 12.3 g/dL 11.5 - 15.5 g/dL [facility] Immature granulocytes (Bld) [#/Vol] 0.03 10*3/uL [facility] Immature granulocytes/100 WBC (Bld) 0.4 % [facility] Lymphocytes (Bld) [#/Vol] 1.1 10*3/uL [facility] Lymphocytes/100 WBC (Bld) 13.4 % [facility] MCH (RBC) [Entitic mass] 30.5 pg 26.0 - 34.0 pg [facility] MCHC (RBC) [Mass/Vol] 33.6 g/dL 30.5 - 36.0 g/dL [facility] MCV (RBC) [Entitic vol] 90.8 fL 80.0 - 100.0 fL [facility] Monocytes (Bld) [#/Vol] 0.5 10*3/[facility] Monocytes/100 WBC (Bld) 6.1 % [facility] Neutrophils (Bld) [#/Vol] 6.51 10*3/uL [facility] Neutrophils/100 WBC (Bld) 79 % [facility] Nucleated RBC (Bld) [#/Vol] [facility] Nucleated RBC/100 WBC (Bld) [Ratio] 0 % /100 WBC [facility] Platelet mean volume (Bld) [Entitic vol] 9.5 fL 9.0 - 12.7 fL [facility] Platelets (Bld) [#/Vol] 179 10*3/uL [facility] RBC (Bld) [#/Vol] 4.03 10*6/uL 3.90 - 5.2 0 m/uL [facility] WBC (Bld) [#/Vol] 8.23 10*3/uL [facility] Comprehensive metabolic 2000 panelOrdered By: Faviola Watson on 02-06-2025 Albumin [Mass/Vol] 4 g/dL 3.9 - 4.9 g/dL [facility] ALP [Catalytic activity/Vol] 73 U/L 34 - 123 U/L [facility] ALT [Catalytic activity/Vol] 10 U/L 7 - 38 U/L [facility] Anion gap [Moles/Vol] 11 mmol/L 8 - 15 mmol/L [facility] AST [Catalytic activity/Vol] 10 U/L Low 13 - 35 U/L [facility] Bilirubin [Mass/Vol] 0.4 mg/dL 0.2 - 1 .3 mg/dL [facility] Calcium [Mass/Vol] 9.6 mg/dL 8.5 - 10. 2 mg/dL [facility] Chloride [Moles/Vol] 102 mmol/L 98 - 10 7 mmol/L [facility] CO2 [Moles/Vol] 27 mmol/L 22 - 30 mmol/L [facility] Creatinine [Mass/Vol] 1 mg/dL High 0.58 - 0.96 mg/dL [facility] GFR/1.73 sq M.predicted among non-blacks MDRD (S/P/Bld) [Vol rate/Area] 65 mL/min/{1.73_m2} - PINF [facility] Comment on above: Estimated Glomerular Filtration Rate (eGFR) is calculated using the 2020 CKD-EPI creatinine equation. This equation utilizes serum creatinine, sex, and age as parameters. The creatinine assay has traceable calibration to isotope dilution-mass spectrometry. Refer to KDIGO guidelines for clinical interpretation. In patients with unstable renal function, e.g. those with acute kidney injury, the eGFR may not accurately reflect actual GFR. Glucose [Mass/Vol] 115 mg/dL High 74 - 99 mg/dL [facility] Comment on above: The [place] [employer] Association (ADA) provides guidance for cutoff values for fasting glucose and random glucose. The ADA defines fasting as no caloric intake for at least 8 hours. Fasting plasma glucose results between 100 to 125 mg/dL indicate increased risk for diabetes (prediabetes). Fasting plasma glucose results greater than or equal to 126 mg/dL meet the criteria for diagnosis of diabetes. In the absence of unequivocal hyperglycemia, results should be confirmed by repeat testing. In a patient with classic symptoms of hyperglycemia or hyperglycemic crisis, random plasma glucose results greater than or equal to 200 mg/dL meet the criteria for diagnosis of diabetes. Reference: Standards of Medical Care in Diabetes 2016, [place] [employer]. Diabetes Care. 2016.39(Suppl 1). Interpretation and review of laboratory results Abnormal [facility] Potassium [Moles/Vol] 3.8 mmol/L 3.7 - 5.1 mmol/L [facility] Protein [Mass/Vol] 6.3 g/dL 6.3 - 8.0 g/dL [facility] Sodium [Moles/Vol] 140 mmol/L 136 - 144 mmol/L [facility] Urea nitrogen [Mass/Vol] 19 mg/dL 7 - 21 mg/dL [facility] 12 Lead EKGon 01-25-2025 12 Lead EKG Normal [facility] Emergency Department Summary on 01-25-2025 Emergency Department Summary Normal [facility] TYPE + SCREENon 01-25-2025 ABO group Nom (Bld) O [facility] Blood group antibody screen Ql Negative [facility] Rh Nom (Bld) Positive [facility] Type and Screen Expiration 01/28/2025 23:59 [facility] BRIEF OP NOTon 01-24-2025 BRIEF OP NOT HNO ID: [id number] Author: SANDRA BRADLEY DO Service: Interventional Radiology Author Type: Physician Type: Brief Op Note Filed: 01/24/2025 13:05 Note Text: BRIEF OPERATIVE / PROCEDURE NOTE LOG ID: [id number] SURGERY/PROCEDURE DATE: 01/24/2025 INCISION/PROCEDURE START TIME: 12:36 PM INCISION CLOSE/PROCEDURE END TIME: 1:01 PM SURGEON(S)/PROCEDURALI ST(S) AND SCOW HAND(S): Surgeons and Role: * Sandra Bradley, - Primary No Additional Staff SURGERY/PROCEDURE(S): Port placement ANESTHESIA: Procedural Sedation FINDINGS: Right chest port placed without issue. The port is ready for immediate use. Please refer to full dictated radiology report for further details. ESTIMATED BLOOD LOSS: <5 mls SPECIMENS: None COMPLICATIONS: None PRE-OP/PRE-PROCEDURE DIAGNOSIS: Multiple myeloma POST-OP/POST-PROCEDURE DIAGNOSIS: Same as Preop SIGNATURE: Sandra Bradley DO PATIENT NAME: Alvino Nina DATE: January 24, 2025 TIME: 1:04 PM [facility] HISTORY PHYSICALon HISTORY PHYSICAL HNO ID: [id number] Author: SANDRA BRADLEY DO Service: Interventional Radiology Author Type: Physician Type: H&P Filed: 01/24/2025 12:02 Note Text: UPDATED HISTORY AND PHYSICAL EXAMINATION SERVICE DATE: 01/24/2025 SERVICE TIME: 1125 PHYSICAL EXAM MUST BE COMPLETED ON ADMISSION PROCEDURE SCHEDULED: Procedure(s): INSERTION PORT VENOUS ACCESS ADULT (Pending) RADIOLOGY ORDER PLACED: The History and Physical (completed in the past 30 days) has been reviewed and the patient has been examined. The contents accurately reflect the patient's condition with the following additions or revisions since the HANDP was completed. Examination indicates no changes. This HANDP can be found in the Electronic Medical Record dated 01/11/2025. SIGNATURE: Sandra Bradley DO PATIENT NAME: Alvino Nina DATE: January 24, 2025 TIME: 12:02 PM PAGER: [facility] IR PORTOCATH PLACEMENTon IR PORTOCATH PLACEMENT * * *Final Report * * * DATE OF EXAM: Jan 24 2025 1:01PM [facility] [id number] - IR PORTOCATH PLACEMENT / PROCEDURE REASON: AVS 01/11 * * * * Physician Interpretation * * * * PROCEDURE: VENOUS PORT PLACEMENT Procedural Personnel Attending physician(s): Sandra Bradley D.O. Fellow physician(s): None Resident physician(s): None Advanced practice provider(s): None Medical Student(s): None Pre-procedure diagnosis: Multiple myeloma Post-procedure diagnosis: Same Indication: Administration of chemotherapy Additional clinical history: None ____ PROCEDURE SUMMARY: - Venous access with ultrasound guidance - Tunneled port insertion under fluoroscopic guidance - Additional procedure(s): None PROCEDURE DETAILS: Pre-procedure History and imaging of central venous access reviewed (QCDR): Yes Consent: Risks, benefits, treatment options, potential complications and personnel to be involved were discussed (including the risks of radiation exposure, contrast and anesthesia administration, and any equipment needed for the procedure to ensure best possible outcome) with the patient and all questions were answered and consent was obtained prior to procedure. Premedicated for contrast allergy: n/a Transfusion of blood products: No Medication reconciliation: The patient's medications and allergies were reviewed in the electronic medical record and reconciled to the proposed procedure/treatment. Veronique-procedure discussion: The appropriate elements of the pre-procedure discussion, safety check list and sign-out were performed. Time out: A time out was performed immediately prior to procedure start with the nursing and interventional team, correctly identifying the name, date of , procedure, anatomy (including marking of site and side if applicable), patient position, procedure consent form, relevant diagnostic and radiology test results, antibiotic administration if applicable, safety precautions, and procedure-specific equipment needs. Start of procedure: 1236 End of procedure: 1301 Patient position: Supine Preparation (MIPS): The site was prepared and draped using all elements of maximal sterile barrier technique including sterile gloves, sterile gown, cap, mask, large sterile sheet, sterile ultrasound probe cover, hand hygiene and cutaneous antisepsis with 2% chlorhexidine. Medical reason for site preparation exception (MIPS): Not applicable Antibiotics: None Antibiotic infusion start time: N/A Prophylactic antibiotic administered: None Additional med: None Additional med: None Contrast Contrast agent: None Contrast volume (mL): 0 Image Guidance Fluoroscopic and sonographic guidance was used. Ultrasound demonstrated patency of the target vein without filling defects. Access was obtained under direct sonographic visualization. A sonographic image of the vessel was obtained and placed into the permanent archive for documentation. FLUOROSCOPIC RADIATION SUMMARY: Plane A, Air Kerma: 2.6 mGy Dose Area Product (DAP): Fluoro Time: 0:03 min:sec Radiation dose exceed 5 Gy: No If radiation dose exceeded 5 Gy, was counseling and instructional brochure provided: N/A Anesthesia/sedation Level of anesthesia/sedation: Moderate sedation (conscious sedation) Anesthesia/sedation administered by: Independent trained observer under attending supervision with continuous monitoring of the patient?s level of consciousness and physiologic status Total intra-service sedation time (minutes): 25 Local anesthesia: 1 % lidocaine Access Local anesthesia was administered. The vessel was sonographically evaluated and determined to be patent. Real time ultrasound was used to visualize needle entry into the vessel and a permanent image was stored. Vein accessed: Internal jugular vein Access technique: Micropuncture set with 21 gauge needle Venography Indication for venography: Not performed Vein catheterized: Not applicable Findings: Not applicable Port placement An incision was made at the upper chest, a pocket was created, and the catheter was tunneled subcutaneously to the venous access site and trimmed to appropriate length. The port was inserted into the pocket and the catheter was advanced via a peel-away sheath into the vein under fluoroscopic guidance. The port was not sutured into the pocket. Catheter tip location was fluoroscopically verified and a permanent image was stored. Port placed: [address] injectable ported catheter Catheter flush: Normal saline Closure The access site and incision were closed and sterile dressing(s) were applied. Sponge counts were ascertained. Access site closure technique: Tissue adhesive Incision closure technique: Absorbable suture and tissue adhesive Patient discharged from procedure suite with device accessed: No Additional Details Ad (more content not included)... Normal [facility] PT panel Coag (PPP)on 2024 INR Coag (PPP) [Relative time] 1.0 {INR} Normal 0.9-1.3 [facility] Comment on above: Order Comment: Augustus rose Type: BLOOD SPECIMEN Ordering Facility: [facility] Address: [address] [place], [place] [id number] Result Comment: Andreea min K Antagonist (VKA) Therapeutic Range: INR 2 to 3 (Target INR of 2.5) Note: For patients treated with VKA drugs, such as warfarin, the [place] [employer] 2012 Guideline recommends a therapeutic INR range of 2 to 3 (target INR of 2.5). This recommendation includes high-risk patients with antiphospholipid syndrome with previous arterial or venous thromboembolism, current-generation mechanical or bioprosthetic aortic heart valve replacement. Note: Patients with mechanical aortic valve replacement and additional risk factors for thromboembolic events (atrial fibrillation, previous thromboembolism, LV dysfunction, hypercoagulable conditions) or an older generation mechanical AVR (i.e., ball in-Cage) or any mechanical MVR should have a INR therapeutic range of 2.5 to 3.5 (target INR of 3). Ty GH, et al. Chest 2012, 141:7S-47S Tasha MEZA et al. [facility] 2017, 70: 252-289 Performed By: #### 3 4528-0 #### [facility] CLIA [id number] [address] [place] PT Coag (PPP) [Time] 10.8 s Normal 9.7-13.0 [facility] Comment on above: Order Comment: Speci men Type: BLOOD SPECIMEN Ordering Facility: [facility] Address: [address] [place] [address] Performed By: #### 3 4528-0 #### [facility] CLIA [id number] [address] [place] [address] [place] EGD Reporton 01-18-2025 EGD Report Normal [facility] Immunohistochemical Stainson 01-18-2025 Immunohistochemical Stains Normal [facility] Comment on above: Performed By: #### P IMHI ####[facility] [address] [place], [place], [id number] MR/POSTOP.ANEon 01-18-2025 MR/POSTOP.ANE Normal [facility] MR/NOSZVDMS0wc 01-18-2025 MR/POSTOPAN2 Normal [facility] MR/PAT.ANEon 01-14-2025 MR/PAT.ANE Normal [facility] Laboratory - Chemistry and C hemistry - challengeOrdered By: Alexandra Sanchez on 01-11-2025 Magnesium [Mass/Vol] 2.2 mg/dL 1.7 - 2 .3 mg/dL [facility] Laboratory - Chemistry and C hemistry - challengeon 01-11-2025 Phosphate [Mass/Vol] 4 mg/dL 2.7 - 4 .8 mg/dL [facility] No Panel InformationOrdered By: Alexandra Sanchez on 01-11-2025 Interpretation and review of laboratory results Normal [facility] L7000.0750on 01-02-2025 P ELASTASE,FECA > 800 Normal >200 [facility] Comment on above: Result Comment: Resu lt Units: ug Elast./g Severe Pancreatic Insufficiency: <100 Moderate Pancreatic Insufficiency: 100 - 200 Normal: >200Performed at: - [facility] [id number] Director: Aden Payne MD, Phone: [phone] Performed By: #### L 7000.0750 ####[facility] [address] [place], [place], [address] CT Thoracic spine WO contras ton 12-28-2024 IMPRESSION: Multiple chronic compression deformities in the mid to lower thoracic spine as discussed level by level in the body of the report. No significant change since prior MRI. No new compression deformity. Diffuse osteopenia. Mild to moderate degenerative changes as discussed. Anatomic Thoracic/Lumbar Variant: None. L4-5 is considered the level of the iliac crest and assume there are 5 lumbar-type vertebrae. Franchise Consultant: JENNY Transcribe Date/Time: Dec 28 2024 2:16P Dictated by : ANNAMARIE MENDOZA MD This examination was interpreted and the report reviewed and electronically signed by: ANNAMARIE MENDOZA MD on Dec 28 2024 2:39PM [facility] DIVISION OF RADIOLOGY * * *Final Report* * * DATE OF EXAM: Dec 28 2024 12:11PM [facility] 0514 - CT THORACIC SPINE WO IVCON / PROCEDURE REASON: Pathological fracture, other site, initial encounter for fracture * * * * Physician Interpretation * * * * EXAMINATION: CT THORACIC SPINE WO IVCON CLINICAL HISTORY: Pathological fracture, other site, initial encounter for fracture TECHNIQUE: Spiral, high resolution unenhanced axial images were obtained from the cervicothoracic junction to the thoracolumbar junction with sagittal and coronal planar reconstructions. MQ: CTTSWO_3 CT Radiation dose: Integrated Dose-Length Product (DLP) for this visit = 1396 mGy*cm. CT Dose Reduction Employed: Automated exposure control(AEC) and iterative recon COMPARISON: MRI thoracic spine 09/03/2024 RESULT: Counting reference: Cervicothoracic and lumbosacral junctions. Assume first thoracic rib is the T1 level. For the purposes of this report, L4-5 is considered the level of the iliac crest and assume there are 5 lumbar-type vertebrae. Anatomic variant: None. Environment Artist (topogram) images: No additional findings. Alignment: Increased kyphosis centered at T10 secondary to multiple compression deformities. Alignment is otherwise preserved. Bone marrow / fracture: Diffuse osteopenia. Multiple chronic compression deformities are again noted in the mid to lower thoracic spine as well as upper thoracic vertebral bodies. Most pronounced height loss is seen at T9-11 with 80% height loss, no significant retropulsion. No significant change since prior MRI. Thoracic paraspinal soft tissues: The paraspinal soft tissues planes are maintained. Canal and foramina: Mild spinal canal stenosis is seen at T9-L1 levels with moderate bilateral foraminal stenosis at T9-10 and T10-11 as well as T11-12. DIVISION OF RADIOLOGY Provider, [facility] Ellie [facility] - 12/28/2024 * * *Final Report* * * DATE OF EXAM: Dec 28 2024 12:11PM [facility] 0514 - CT THORACIC SPINE WO IVCON / PROCEDURE REASON: Pathological fracture, other site, initial encounter for fracture * * * * Physician Interpretation * * * * EXAMINATION: CT THORACIC SPINE WO IVCON CLINICAL HISTORY: Pathological fracture, other site, initial encounter for fracture TECHNIQUE: Spiral, high resolution unenhanced axial images were obtained from the cervicothoracic junction to the thoracolumbar junction with sagittal and coronal planar reconstructions. MQ: CTTSWO_3 CT Radiation dose: Integrated Dose-Length Product (DLP) for this visit = 1396 mGy*cm. CT Dose Reduction Employed: Automated exposure control(AEC) and iterative recon COMPARISON: MRI thoracic spine 09/03/2024 RESULT: Counting reference: Cervicothoracic and lumbosacral junctions. Assume first thoracic rib is the T1 level. For the purposes of this report, L4-5 is considered the level of the iliac crest and assume there are 5 lumbar-type vertebrae. Anatomic variant: None. Environment Artist (topogram) images: No additional findings. Alignment: Increased kyphosis centered at T10 secondary to multiple compression deformities. Alignment is otherwise preserved. Bone marrow / fracture: Diffuse osteopenia. Multiple chronic compression deformities are again noted in the mid to lower thoracic spine as well as upper thoracic vertebral bodies. Most pronounced height loss is seen at T9-11 with 80% height loss, no significant retropulsion. No significant change since prior MRI. Thoracic paraspinal soft tissues: The paraspinal soft tissues planes are maintained. Canal and foramina: Mild spinal canal stenosis is seen at T9-L1 levels with moderate bilateral foraminal stenosis at T9-10 and T10-11 as well as T11-12. IMPRESSION IMPRESSION: Multiple chronic compression deformities in the mid to lower thoracic spine as discussed level by level in the body of the report. No significant change since prior MRI. No new compression deformity. Diffuse osteopenia. Mild to moderate degenerative changes as discussed. Anatomic Thoracic/Lumbar Variant: None. L4-5 is considered the level of the iliac crest and assume there are 5 lumbar-type vertebrae. Franchise Consultant: PSCVern Transcribe Date/Time: Dec 28 2024 2:16P Dictated by : ANNAMARIE MENDOZA MD This examination was interpreted and the report reviewed and electronically signed by: ANNAMARIE MENDOZA MD on Dec 28 2024 2:39PM [facility] Radiology Study observation (narrative) Ulises hanson [facility] CT Thoracic spine WO contras tOrdered By: [facility] Provider on 12-28-2024 [facility] Elastase.pancreatic (Stl) [M ass/Mass]Ordered By: Tiera Miles on 12-28-2024 Stool Pancreatic Elastase > 800 >200 [facility] Comment on above: Result Units: ug Rosi st./g Severe Pancreatic Insufficiency: <100 Moderate Pancreatic Insufficiency: 100 - 200 Normal: >200Performed at: [facility] [address] [place], [place] [id number] Director: Aden Payne MD, Phone: [phone] Gallbladderon 12-28-2024 Gallbladder Normal [facility] Stool pancreatic elastase me asurement (mass/mass)Ordered By: Tiera Miles on 12-28-2024 Elastase.pancreatic (Stl) [Mass/Mass] > 800 >200 [facility] Comment on above: Result Units: ug Rosi st./g Severe Pancreatic Insufficiency: <100 Moderate Pancreatic Insufficiency: 100 - 200 Normal: >200Performed at: [facility] [address] [id number] Director: Aden Payne MD, Phone: [phone] CBC-Complete Blood Cnt No Di ffon 12-26-2024 HCT Normal 37-47 [facility] Comment on above: Result Comment: Canc elled via OM: Order cancelled - Patient discharged Performed By: #### L 500.4050, L100.0500 ####[facility] [address] [place], [address] HGB Normal 12.0-15.0 [facility] Comment on above: Result Comment: Canc elled via OM: Order cancelled - Patient discharged Performed By: #### L 500.4050, L100.0500 ####[facility] [address] [place], [address] MCH Normal 27.0-32.0 [facility] Comment on above: Result Comment: Canc elled via OM: Order cancelled - Patient discharged Performed By: #### L 500.4050, L100.0500 ####[facility] [address] [place], [address] MCHC Normal 32-36 [facility] Comment on above: Result Comment: Canc elled via OM: Order cancelled - Patient discharged Performed By: #### L 500.4050, L100.0500 ####[facility] [address] [place], [address] MCV Normal 81-99 [facility] Comment on above: Result Comment: Canc elled via OM: Order cancelled - Patient discharged Performed By: #### L 500.4050, L100.0500 ####[facility] [address] [place], [address] PLT Normal 150-450 [facility] Comment on above: Result Comment: Canc elled via OM: Order cancelled - Patient discharged Performed By: #### L 500.4050, L100.0500 ####[facility] [address] [place], [address] RBC Normal 4.2-5.4 [facility] Comment on above: Result Comment: Canc elled via OM: Order cancelled - Patient discharged Performed By: #### L 500.4050, L100.0500 ####[facility] [address] [place], [address] RDW CV Normal 11.6-14.6 [facility] Comment on above: Result Comment: Canc elled via OM: Order cancelled - Patient discharged Performed By: #### L 500.4050, L100.0500 ####[facility] [address] [place], [address] RDW SD Normal 35.1-43.9 [facility] Comment on above: Result Comment: Canc elled via OM: Order cancelled - Patient discharged Performed By: #### L 500.4050, L100.0500 ####[facility] [address] [place], [address] WBC Normal 4.4-11.0 [facility] Comment on above: Result Comment: Canc elled via OM: Order cancelled - Patient discharged Performed By: #### L 500.4050, L100.0500 ####[facility] [address] [place], [address] Comprehensive Metabolic Prof ilon 12-26-2024 ALB Normal 3.4-4.8 [facility] Comment on above: Result Comment: Canc elled via OM: Order cancelled - Patient discharged Performed By: #### L 500.4050, L100.0500 ####[facility] [address] [place], [address] ALK PHOS Normal 35-104 [facility] Comment on above: Result Comment: Canc elled via OM: Order cancelled - Patient discharged Performed By: #### L 500.4050, L100.0500 ####[facility] [address] [place], [address] ALT Normal <=34 [facility] Comment on above: Result Comment: Canc elled via OM: Order cancelled - Patient discharged Performed By: #### L 500.4050, L100.0500 ####[facility] [address] [place], [address] AST Normal <=31 [facility] Comment on above: Result Comment: Canc elled via OM: Order cancelled - Patient discharged Performed By: #### L 500.4050, L100.0500 ####[facility] [address] [place], [address] BUN Normal 4-19 [facility] Comment on above: Result Comment: Canc elled via OM: Order cancelled - Patient discharged Performed By: #### L 500.4050, L100.0500 ####[facility] [address] [place], [address] BUN/CRE Normal 10-20 [facility] Comment on above: Result Comment: Canc elled via OM: Order cancelled - Patient discharged Performed By: #### L 500.4050, L100.0500 ####[facility] [address] [place], [address] Calcium Normal 7.6-11.0 [facility] Comment on above: Result Comment: Canc elled via OM: Order cancelled - Patient discharged Performed By: #### L 500.4050, L100.0500 ####[facility] [address] [place], [address] CL Normal 98-108 [facility] Comment on above: Result Comment: Canc elled via OM: Order cancelled - Patient discharged Performed By: #### L 500.4050, L100.0500 ####[facility] [address] [place], [address] CO2 Normal 21.0-32.0 [facility] Comment on above: Result Comment: Canc elled via OM: Order cancelled - Patient discharged Performed By: #### L 500.4050, L100.0500 ####[facility] [address] [place], [address] CREAT,SERUM Normal 0.70-1.20 [facility] Comment on above: Result Comment: Canc elled via OM: Order cancelled - Patient discharged Performed By: #### L 500.4050, L100.0500 ####[facility] [address] [place], [address] eGFR Normal >60 [facility] Comment on above: Result Comment: Canc elled via OM: Order cancelled - Patient discharged Performed By: #### L 500.4050, L100.0500 ####[facility] [address] [place], [address] GAP Normal 5-15 [facility] Comment on above: Result Comment: Canc elled via OM: Order cancelled - Patient discharged Performed By: #### L 500.4050, L100.0500 ####[facility] [address] [place], [address] GLU Normal 70-99 [facility] Comment on above: Result Comment: Canc elled via OM: Order cancelled - Patient discharged Performed By: #### L 500.4050, L100.0500 ####[facility] [address] [place], [address] Potassium Normal 3.3-5.1 [facility] Comment on above: Result Comment: Canc elled via OM: Order cancelled - Patient discharged Performed By: #### L 500.4050, L100.0500 ####[facility] [address] [place], [address] T BILI Normal 0.00-1.30 [facility] Comment on above: Result Comment: Canc elled via OM: Order cancelled - Patient discharged Performed By: #### L 500.4050, L100.0500 ####[facility] [address] [place], [address] T PROT Normal 5.9-8.4 [facility] Comment on above: Result Comment: Canc elled via OM: Order cancelled - Patient discharged Performed By: #### L 500.4050, L100.0500 ####[facility] [address] [place], [address] Comprehensive Metabolic Profil Normal 133-145 [facility] Comment on above: Result Comment: Canc elled via OM: Order cancelled - Patient discharged Performed By: #### L 500.4050, L100.0500 ####[facility] [address] [place], [address] Gastroenterology Visit Repor ton 12-26-2024 Gastroenterology Visit Report Normal [facility] CBC-Complete Blood Cnt No Di ffon 12-25-2024 HCT Normal 37-47 [facility] Comment on above: Result Comment: Canc elled via OM: Order cancelled - Patient discharged Performed By: #### L 500.4050, L100.0500 ####[facility] [address] [place], [address] HGB Normal 12.0-15.0 [facility] Comment on above: Result Comment: Canc elled via OM: Order cancelled - Patient discharged Performed By: #### L 500.4050, L100.0500 ####[facility] [address] [place], [address] MCH Normal 27.0-32.0 [facility] Comment on above: Result Comment: Canc elled via OM: Order cancelled - Patient discharged Performed By: #### L 500.4050, L100.0500 ####[facility] [address] [place], [address] MCHC Normal 32-36 [facility] Comment on above: Result Comment: Canc elled via OM: Order cancelled - Patient discharged Performed By: #### L 500.4050, L100.0500 ####[facility] [address] [place], [address] MCV Normal 81-99 [facility] Comment on above: Result Comment: Canc elled via OM: Order cancelled - Patient discharged Performed By: #### L 500.4050, L100.0500 ####[facility] [address] [place], [address] PLT Normal 150-450 [facility] Comment on above: Result Comment: Canc elled via OM: Order cancelled - Patient discharged Performed By: #### L 500.4050, L100.0500 ####[facility] [address] [place], [address] RBC Normal 4.2-5.4 [facility] Comment on above: Result Comment: Canc elled via OM: Order cancelled - Patient discharged Performed By: #### L 500.4050, L100.0500 ####[facility] [address] [place], [address] RDW CV Normal 11.6-14.6 [facility] Comment on above: Result Comment: Canc elled via OM: Order cancelled - Patient discharged Performed By: #### L 500.4050, L100.0500 ####[facility] [address] [place], [address] RDW SD Normal 35.1-43.9 [facility] Comment on above: Result Comment: Canc elled via OM: Order cancelled - Patient discharged Performed By: #### L 500.4050, L100.0500 ####[facility] [address] [place], [address] WBC Normal 4.4-11.0 [facility] Comment on above: Result Comment: Canc elled via OM: Order cancelled - Patient discharged Performed By: #### L 500.4050, L100.0500 ####[facility] [address] [place], [address] Comprehensive Metabolic Prof ilon 12-25-2024 ALB Normal 3.4-4.8 [facility] Comment on above: Result Comment: Canc elled via OM: Order cancelled - Patient discharged Performed By: #### L 500.4050, L100.0500 ####[facility] [address] [place], [address] ALK PHOS Normal 35-104 [facility] Comment on above: Result Comment: Canc elled via OM: Order cancelled - Patient discharged Performed By: #### L 500.4050, L100.0500 ####[facility] [address] [place], [address] ALT Normal <=34 [facility] Comment on above: Result Comment: Canc elled via OM: Order cancelled - Patient discharged Performed By: #### L 500.4050, L100.0500 ####[facility] [address] [place], [address] AST Normal <=31 [facility] Comment on above: Result Comment: Canc elled via OM: Order cancelled - Patient discharged Performed By: #### L 500.4050, L100.0500 ####[facility] [address] [place], [address] BUN Normal 4-19 [facility] Comment on above: Result Comment: Canc elled via OM: Order cancelled - Patient discharged Performed By: #### L 500.4050, L100.0500 ####[facility] [address] [place], [address] BUN/CRE Normal 10-20 [facility] Comment on above: Result Comment: Canc elled via OM: Order cancelled - Patient discharged Performed By: #### L 500.4050, L100.0500 ####[facility] [address] [place], [address] Calcium Normal 7.6-11.0 [facility] Comment on above: Result Comment: Canc elled via OM: Order cancelled - Patient discharged Performed By: #### L 500.4050, L100.0500 ####[facility] [address] [place], [address] CL Normal 98-108 [facility] Comment on above: Result Comment: Canc elled via OM: Order cancelled - Patient discharged Performed By: #### L 500.4050, L100.0500 ####[facility] [address] [place], [address] CO2 Normal 21.0-32.0 [facility] Comment on above: Result Comment: Canc elled via OM: Order cancelled - Patient discharged Performed By: #### L 500.4050, L100.0500 ####[facility] [address] [place], [address] CREAT,SERUM Normal 0.70-1.20 [facility] Comment on above: Result Comment: Canc elled via OM: Order cancelled - Patient discharged Performed By: #### L 500.4050, L100.0500 ####[facility] [address] [place], [address] eGFR Normal >60 [facility] Comment on above: Result Comment: Canc elled via OM: Order cancelled - Patient discharged Performed By: #### L 500.4050, L100.0500 ####[facility] [address] [place], [address] GAP Normal 5-15 [facility] Comment on above: Result Comment: Canc elled via OM: Order cancelled - Patient discharged Performed By: #### L 500.4050, L100.0500 ####[facility] [address] [place], [address] GLU Normal 70-99 [facility] Comment on above: Result Comment: Canc elled via OM: Order cancelled - Patient discharged Performed By: #### L 500.4050, L100.0500 ####[facility] [address] [place], [address] Potassium Normal 3.3-5.1 [facility] Comment on above: Result Comment: Canc elled via OM: Order cancelled - Patient discharged Performed By: #### L 500.4050, L100.0500 ####[facility] [address] [place], [address] T BILI Normal 0.00-1.30 [facility] Comment on above: Result Comment: Canc elled via OM: Order cancelled - Patient discharged Performed By: #### L 500.4050, L100.0500 ####[facility] [address] [place], [address] T PROT Normal 5.9-8.4 [facility] Comment on above: Result Comment: Canc elled via OM: Order cancelled - Patient discharged Performed By: #### L 500.4050, L100.0500 ####[facility] [address] [place], [address] Comprehensive Metabolic Profil Normal 133-145 [facility] Comment on above: Result Comment: Canc elled via OM: Order cancelled - Patient discharged Performed By: #### L 500.4050, L100.0500 ####[facility] [address] [place], [address] CBC-Complete Blood Cnt No Di ffon 12-24-2024 HCT Normal 37-47 [facility] Comment on above: Result Comment: Canc elled via OM: Order cancelled - Patient discharged Performed By: #### L 500.4050, L100.0500 ####[facility] [address] [place], [address] HGB Normal 12.0-15.0 [facility] Comment on above: Result Comment: Canc elled via OM: Order cancelled - Patient discharged Performed By: #### L 500.4050, L100.0500 ####[facility] [address] [place], [address] MCH Normal 27.0-32.0 [facility] Comment on above: Result Comment: Canc elled via OM: Order cancelled - Patient discharged Performed By: #### L 500.4050, L100.0500 ####[facility] [address] [place], [address] MCHC Normal 32-36 [facility] Comment on above: Result Comment: Canc elled via OM: Order cancelled - Patient discharged Performed By: #### L 500.4050, L100.0500 ####[facility] [address] [place], [address] MCV Normal 81-99 [facility] [facility] Comment on above: Result Comment: Canc elled via OM: Order cancelled - Patient discharged Performed By: #### L 500.4050, L100.0500 ####[facility] [address] [place], [address] PLT Normal 150-450 [facility] Comment on above: Result Comment: Canc elled via OM: Order cancelled - Patient discharged Performed By: #### L 500.4050, L100.0500 ####[facility] [address] [place], [address] RBC Normal 4.2-5.4 [facility] Comment on above: Result Comment: Canc elled via OM: Order cancelled - Patient discharged Performed By: #### L 500.4050, L100.0500 ####[facility] [address] [place], [address] RDW CV Normal 11.6-14.6 [facility] Comment on above: Result Comment: Canc elled via OM: Order cancelled - Patient discharged Performed By: #### L 500.4050, L100.0500 ####[facility] [address] [place], [address] RDW SD Normal 35.1-43.9 [facility] Comment on above: Result Comment: Canc elled via OM: Order cancelled - Patient discharged Performed By: #### L 500.4050, L100.0500 ####[facility] [address] [place], [address] WBC Normal 4.4-11.0 [facility] Comment on above: Result Comment: Canc elled via OM: Order cancelled - Patient discharged Performed By: #### L 500.4050, L100.0500 ####[facility] [address] [place], [address] Comprehensive Metabolic Prof ilon 12-24-2024 ALB Normal 3.4-4.8 [facility] Comment on above: Result Comment: Canc elled via OM: Order cancelled - Patient discharged Performed By: #### L 500.4050, L100.0500 ####[facility] [address] [place], [address] ALK PHOS Normal 35-104 [facility] Comment on above: Result Comment: Canc elled via OM: Order cancelled - Patient discharged Performed By: #### L 500.4050, L100.0500 ####[facility] [address] [place], [address] ALT Normal <=34 [facility] Comment on above: Result Comment: Canc elled via OM: Order cancelled - Patient discharged Performed By: #### L 500.4050, L100.0500 ####[facility] [address] [place], [address] AST Normal <=31 [facility] Comment on above: Result Comment: Canc elled via OM: Order cancelled - Patient discharged Performed By: #### L 500.4050, L100.0500 ####[facility] [address] [place], [address] BUN Normal 4-19 [facility] Comment on above: Result Comment: Canc elled via OM: Order cancelled - Patient discharged Performed By: #### L 500.4050, L100.0500 ####[facility] [address] [place], [address] BUN/CRE Normal 10-20 [facility] Comment on above: Result Comment: Canc elled via OM: Order cancelled - Patient discharged Performed By: #### L 500.4050, L100.0500 ####[facility] [address] [place], [address] Calcium Normal 7.6-11.0 [facility] Comment on above: Result Comment: Canc elled via OM: Order cancelled - Patient discharged Performed By: #### L 500.4050, L100.0500 ####[facility] [address] [place], [address] CL Normal 98-108 [facility] Comment on above: Result Comment: Canc elled via OM: Order cancelled - Patient discharged Performed By: #### L 500.4050, L100.0500 ####[facility] [address] [place], [address] CO2 Normal 21.0-32.0 [facility] Comment on above: Result Comment: Canc elled via OM: Order cancelled - Patient discharged Performed By: #### L 500.4050, L100.0500 ####[facility] [address] [place], [address] CREAT,SERUM Normal 0.70-1.20 [facility] Comment on above: Result Comment: Canc elled via OM: Order cancelled - Patient discharged Performed By: #### L 500.4050, L100.0500 ####[facility] [address] [place], [address] eGFR Normal >60 [facility] Comment on above: Result Comment: Canc elled via OM: Order cancelled - Patient discharged Performed By: #### L 500.4050, L100.0500 ####[facility] [address] [place], [address] GAP Normal 5-15 [facility] Comment on above: Result Comment: Canc elled via OM: Order cancelled - Patient discharged Performed By: #### L 500.4050, L100.0500 ####[facility] [address] [place], [address] GLU Normal 70-99 [facility] Comment on above: Result Comment: Canc elled via OM: Order cancelled - Patient discharged Performed By: #### L 500.4050, L100.0500 ####[facility] [address] [place], [address] Potassium Normal 3.3-5.1 [facility] Comment on above: Result Comment: Canc elled via OM: Order cancelled - Patient discharged Performed By: #### L 500.4050, L100.0500 ####[facility] [address] [place], [address] T BILI Normal 0.00-1.30 [facility] Comment on above: Result Comment: Canc elled via OM: Order cancelled - Patient discharged Performed By: #### L 500.4050, L100.0500 ####[facility] [address] [place], [address] T PROT Normal 5.9-8.4 [facility] Comment on above: Result Comment: Canc elled via OM: Order cancelled - Patient discharged Performed By: #### L 500.4050, L100.0500 ####[facility] [address] [place], [address] Comprehensive Metabolic Profil Normal 133-145 [facility] Comment on above: Result Comment: Canc elled via OM: Order cancelled - Patient discharged Performed By: #### L 500.4050, L100.0500 ####[facility] [address] [place], [address] Anion gap in Serum or Plasma Ordered By: Corin Flores on 12-23-2024 Anion gap [Moles/Vol] 10 mmol/L 5-15 [facility] BUN/creatinine ratioOrdered By: Corin Flores on 12-23-2024 Urea nitrogen/Creatinine [Mass ratio] 16.3 mg/mg 10-20 [facility] Bilirubin, totalOrdered By: Corin Flores on 12-23-2024 Bilirubin [Mass/Vol] 0.33 mg/dL 0.00-1.30 [facility] CBC-Complete Blood Cnt No Vangie fisher 12-23-2024 Erythrocyte distribution width (RBC) [Ratio] 11.9 % Normal 11.6-14.6 [facility] Comment on above: Performed By: #### L 100.0500, L500.4050 ####[facility] [address] [place], [address] Hematocrit (Bld) [Volume fraction] 35.6 % Low 37-47 [facility] Comment on above: Performed By: #### L 100.0500, L500.4050 ####[facility] [address] [place], [address] Hemoglobin (Bld) [Mass/Vol] 12.3 g/dL Normal 12.0-15.0 [facility] Comment on above: Performed By: #### L 100.0500, L500.4050 ####[facility] [address] [place], [address] MCH (RBC) [Entitic mass] 30.6 pg Normal 27.0-32.0 [facility] Comment on above: Performed By: #### L 100.0500, L500.4050 ####[facility] [address] [place], [address] MCHC (RBC) [Mass/Vol] 34.6 g/dL Normal 32-36 [facility] Comment on above: Performed By: #### L 100.0500, L500.4050 ####[facility] [address] [place], [address] MCV (RBC) [Entitic vol] 88.6 fL Normal 81-99 [facility] Comment on above: Performed By: #### L 100.0500, L500.4050 ####[facility] [address] [place], [address] Platelet mean volume (Bld) [Entitic vol] 10.2 fL Normal 6.2-12.0 [facility] Comment on above: Performed By: #### L 100.0500, L500.4050 ####[facility] [address] [place], [address] Platelets (Bld) [#/Vol] 220 10*3/uL Normal 150-450 [facility] Comment on above: Performed By: #### L 100.0500, L500.4050 ####[facility] [address] [place], [address] RBC (Bld) [#/Vol] 4.02 10*6/uL Low 4.2-5.4 [facility] Comment on above: Performed By: #### L 100.0500, L500.4050 ####[facility] [address] [place], [address] RDW SD 38.6 fl Normal 35.1-43.9 [facility] Comment on above: Performed By: #### L 100.0500, L500.4050 ####[facility] [address] [place], [address] WBC (Bld) [#/Vol] 6.6 10*3/uL Normal 4.4-11.0 [facility] Comment on above: Performed By: #### L 100.0500, L500.4050 ####[facility] [address] [place], [address] Carbon dioxide, total [Moles /volume] in Central venous bloodOrdered By: Corin Flores on 12-23-2024 CO2 [Moles/Vol] 23.5 mmol/L 21.0-32.0 [facility] Chloride assayOrdered By: Marion Flores on 12-23-2024 Chloride [Moles/Vol] 108 mmol/L 98-108 [facility] Comprehensive Metabolic Prof ilon 12-23-2024 Albumin [Mass/Vol] 4.0 g/dL Normal 3.4-4.8 [facility] Comment on above: Performed By: #### L 100.0500, L500.4050 ####[facility] [address] [place], [address] Albumin/Globulin [Mass ratio] 1.8 {ratio} Normal 0.9-2.4 [facility] Comment on above: Performed By: #### L 100.0500, L500.4050 ####[facility] [address] [place], [address] ALK PHOS 56 U/L Normal 35-104 [facility] Comment on above: Performed By: #### L 100.0500, L500.4050 ####[facility] [address] [place], [address] ALT [Catalytic activity/Vol] 15 U/L Normal <=34 [facility] Comment on above: Performed By: #### L 100.0500, L500.4050 ####[facility] [address] [place], [address] AST [Catalytic activity/Vol] 19 U/L Normal <=31 [facility] Comment on above: Performed By: #### L 100.0500, L500.4050 ####[facility] [address] [place], [address] Bilirubin [Mass/Vol] 0.33 mg/dL Normal 0.00-1.30 [facility] Comment on above: Performed By: #### L 100.0500, L500.4050 ####[facility] [address] [place], [address] BUN/CRE 16.3 RATIO Normal 10-20 [facility] Comment on above: Performed By: #### L 100.0500, L500.4050 ####[facility] [address] [place], [address] Calcium [Mass/Vol] 9.3 mg/dL Normal 7.6-11.0 [facility] Comment on above: Performed By: #### L 100.0500, L500.4050 ####[facility] [address] [place], [address] Chloride [Moles/Vol] 108 mmol/L Normal 98-108 [facility] Comment on above: Performed By: #### L 100.0500, L500.4050 ####[facility] [address] [place], [address] CO2 [Moles/Vol] 23.5 mmol/L Normal 21.0-32.0 [facility] Comment on above: Performed By: #### L 100.0500, L500.4050 ####[facility] [address] [place], [address] Creatinine [Mass/Vol] 0.88 mg/dL Normal 0.70-1.20 [facility] Comment on above: Performed By: #### L 100.0500, L500.4050 ####[facility] [address] [place], [address] ECRCL 69.63 ml/min Normal 50-250 [facility] Comment on above: Performed By: #### L 100.0500, L500.4050 ####[facility] [address] [place], [address] GAP 10 Normal 5-15 [facility] Comment on above: Performed By: #### L 100.0500, L500.4050 ####[facility] [address] [place], [address] GFR/1.73 sq M.predicted among non-blacks MDRD (S/P/Bld) [Vol rate/Area] 76 mL/min/{1.73_m2} Normal >60 [facility] Comment on above: Result Comment: mL/m in/1.73m2 CKD-EPI Creatinine Equation (2020) Performed By: #### L 100.0500, L500.4050 ####[facility] [address] [place], [address] Globulin (S) [Mass/Vol] 2.3 g/dL Normal 2.2-4.2 [facility] Comment on above: Performed By: #### L 100.0500, L500.4050 ####[facility] [address] [place], [address] Glucose [Mass/Vol] 84 mg/dL Normal 70-99 [facility] Comment on above: Performed By: #### L 100.0500, L500.4050 ####[facility] [address] [place], [address] Potassium [Moles/Vol] 3.9 mmol/L Normal 3.3-5.1 [facility] Comment on above: Performed By: #### L 100.0500, L500.4050 ####[facility] [address] [place], [address] Sodium [Moles/Vol] 142 mmol/L Normal 133-145 [facility] Comment on above: Performed By: #### L 100.0500, L500.4050 ####[facility] [address] [place], [address] T PROT 6.3 g/dL Normal 5.9-8.4 [facility] Comment on above: Performed By: #### L 100.0500, L500.4050 ####[facility] [address] [place], [address] Urea nitrogen [Mass/Vol] 14 mg/dL Normal 4-19 [facility] Comment on above: Performed By: #### L 100.0500, L500.4050 ####[facility] [address] [place], [address] Discharge Instructionon 12-08 Discharge Instruction Normal [facility] Erythrocyte distribution wid th ratioOrdered By: Corin Flores on 12-23-2024 Erythrocyte distribution width (RBC) [Ratio] 11.9 % 11.6-14.6 [facility] Erythrocyte distribution wid th standard deviationOrdered By: Corin Flores on 12-23-2024 Erythrocyte distribution width (RBC) [Entitic vol] 38.6 fL 35.1-43.9 [facility] Erythrocyte distribution width (RBC) [Ratio] 38.6 fl 35.1-43.9 [facility] Estimation of creatinine jaclyn aranceOrdered By: Corin Flores on 12-23-2024 Estimated Creatinine Clearance Calc 69.63 ml/min 50-250 [facility] GFR/1.73 sq M.predicted miryam g non-blacks MDRD (S/P/Bld) [Vol rate/Area]Ordered By: Corin Flores on 12-23-2024 Estimated GFR (MDRD) Non-Af Amer 76 >60 [facility] Comment on above: mL/min/1.73m2 CKD-EP I Creatinine Equation (2020) Glomerular filtration rate ( GFR) estimation/1.73 sq m using serum, plasma, or whole bOrdered By: Corin Flores on 12-23-2024 GFR/1.73 sq M.predicted among non-blacks MDRD (S/P/Bld) [Vol rate/Area] 76 mL/min/{1.73_m2} >60 [facility] Comment on above: mL/min/1.73m2 CKD-EP I Creatinine Equation (2020) Hematocrit Auto (Bld) [Volum e fraction]Ordered By: Corin Flores on 12-23-2024 Hematocrit (Bld) [Volume fraction] 35.6 % Low 37-47 [facility] Hemoglobin measurementOrdere d By: Corin Flores on 12-23-2024 Hemoglobin (Bld) [Mass/Vol] 12.3 g/dL 12.0-15.0 [facility] Laboratory - Chemistry and C hemistry - challengeOrdered By: Corin Flores on 12-23-2024 AST [Catalytic activity/Vol] 19 U/L <32 [facility] MCV (mean corpuscular volume ) determinationOrdered By: Corin Flores on 12-23-2024 MCV (RBC) [Entitic vol] 88.6 fL 81-99 [facility] Mean corpuscular hemoglobin (MCH) determinationOrdered By: Corin Flores on 12-23-2024 MCH (RBC) [Entitic mass] 30.6 pg 27.0-32.0 [facility] Mean corpuscular hemoglobin concentration (MCHC) determinationOrdered By: Corin Flores on 12-23-2024 MCHC (RBC) [Mass/Vol] 34.6 g/dL 32-36 [facility] Mean platelet volume determi nationOrdered By: Corin Flores on 12-23-2024 Platelet mean volume (Bld) [Entitic vol] 10.2 fL 6.2-12.0 [facility] Platelet countOrdered By: Marion Flores on 12-23-2024 Platelets (Bld) [#/Vol] 220 10*3/uL 150-450 [facility] Potassium (Unsp spec) [Mass/ Vol]Ordered By: Corin Flores on 12-23-2024 Potassium [Moles/Vol] 3.9 mmol/L 3.3-5.1 [facility] Potassium measurement (mass/ volume)Ordered By: Corin Flores on 12-23-2024 Potassium (Unsp spec) [Mass/Vol] 3.9 mmol/L 3.3-5.1 [facility] RBC Auto (Bld) [#/Vol]Ordere d By: Corin Flores on 12-23-2024 RBC (Bld) [#/Vol] 4.02 10*6/uL Low 4.2-5.4 [facility] Serum creatinine measurement (mass/volume)Ordered By: Corin Flores on 12-23-2024 Creatinine [Mass/Vol] 0.88 mg/dL 0.70-1.20 [facility] Serum globulin measurementOr dered By: Corin Flores on 12-23-2024 Globulin (S) [Mass/Vol] 2.3 g/dL 2.2-4.2 [facility] Serum glucose measurement (m ass/volume)Ordered By: Corin Flores on 12-23-2024 Glucose [Mass/Vol] 84 mg/dL 70-99 [facility] Serum or plasma alanine grant otransferase (ALT) measurementOrdered By: Corin Flores on 12-23-2024 ALT [Catalytic activity/Vol] 15 U/L <35 [facility] Serum or plasma albumin gurinder urement (mass/volume)Ordered By: Corin Flores on 12-23-2024 Albumin [Mass/Vol] 4.0 g/dL 3.4-4.8 [facility] Serum or plasma albumin/glob ulin mass ratioOrdered By: Corin Flores on 12-23-2024 Albumin/Globulin [Mass ratio] 1.8 {ratio} 0.9-2.4 [facility] Serum or plasma alkaline owen sphatase measurementOrdered By: Corin Flores on 12-23-2024 ALP [Catalytic activity/Vol] 56 U/L 35-104 [facility] Serum or plasma calcium gurinder urement (mass/volume)Ordered By: Corin Flores on 12-23-2024 Calcium [Mass/Vol] 9.3 mg/dL 7.6-11.0 [facility] Serum or plasma urea nitroge n measurement (mass/volume)Ordered By: Corin Flores on 12-23-2024 Urea nitrogen [Mass/Vol] 14 mg/dL 4-19 [facility] Sodium levelOrdered By: Jose Flores on 12-23-2024 Sodium [Moles/Vol] 142 mmol/L 133-145 [facility] Total proteinOrdered By: David Flores on 12-23-2024 Protein [Mass/Vol] 6.3 g/dL 5.9-8.4 [facility] White blood cell (WBC) count Ordered By: Corin Flores on 12-23-2024 WBC (Bld) [#/Vol] 6.6 10*3/uL 4.4-11.0 [facility] 12 Lead EKGon 12-22-2024 12 Lead EKG Normal [facility] CBC-Complete Blood Cnt No Di ffon 12-22-2024 Erythrocyte distribution width (RBC) [Ratio] 11.9 % Normal 11.6-14.6 [facility] Comment on above: Performed By: #### L 100.0500, L500.4050 ####[facility] [address] [place], [address] Hematocrit (Bld) [Volume fraction] 33.1 % Low 37-47 [facility] Comment on above: Performed By: #### L 100.0500, L500.4050 ####[facility] [address] [place], [address] Hemoglobin (Bld) [Mass/Vol] 11.2 g/dL Low 12.0-15.0 [facility] Comment on above: Performed By: #### L 100.0500, L500.4050 ####[facility] [address] [place], [address] MCH (RBC) [Entitic mass] 30.2 pg Normal 27.0-32.0 [facility] Comment on above: Performed By: #### L 100.0500, L500.4050 ####[facility] [address] [place], [address] MCHC (RBC) [Mass/Vol] 33.8 g/dL Normal 32-36 [facility] Comment on above: Performed By: #### L 100.0500, L500.4050 ####[facility] [address] [place], [address] MCV (RBC) [Entitic vol] 89.2 fL Normal 81-99 [facility] Comment on above: Performed By: #### L 100.0500, L500.4050 ####[facility] [address] [place], [address] Platelet mean volume (Bld) [Entitic vol] 10.0 fL Normal 6.2-12.0 [facility] Comment on above: Performed By: #### L 100.0500, L500.4050 ####[facility] [address] [place], [address] Platelets (Bld) [#/Vol] 196 10*3/uL Normal 150-450 [facility] Comment on above: Performed By: #### L 100.0500, L500.4050 ####[facility] [address] [place], [address] RBC (Bld) [#/Vol] 3.71 10*6/uL Low 4.2-5.4 [facility] Comment on above: Performed By: #### L 100.0500, L500.4050 ####[facility] [address] [place], [address] RDW SD 38.2 fl Normal 35.1-43.9 [facility] Comment on above: Performed By: #### L 100.0500, L500.4050 ####[facility] [address] [place], [address] WBC (Bld) [#/Vol] 6.2 10*3/uL Normal 4.4-11.0 [facility] Comment on above: Performed By: #### L 100.0500, L500.4050 ####[facility] [address] [place], [address] Comprehensive Metabolic Prof [facility] 12-22-2024 Albumin [Mass/Vol] 3.9 g/dL Normal 3.4-4.8 [facility] Comment on above: Performed By: #### L 100.0500, L500.4050 ####[facility] [address] [place], [address] Albumin/Globulin [Mass ratio] 1.8 {ratio} Normal 0.9-2.4 [facility] Comment on above: Performed By: #### L 100.0500, L500.4050 ####[facility] [address] [place], [address] ALK PHOS 52 U/L Normal 35-104 [facility] Comment on above: Performed By: #### L 100.0500, L500.4050 ####[facility] [address] [place], [address] ALT [Catalytic activity/Vol] 14 U/L Normal <=34 [facility] Comment on above: Performed By: #### L 100.0500, L500.4050 ####[facility] [address] [place], [address] AST [Catalytic activity/Vol] 17 U/L Normal <=31 [facility] Comment on above: Performed By: #### L 100.0500, L500.4050 ####[facility] [address] [place], [address] Bilirubin [Mass/Vol] 0.27 mg/dL Normal 0.00-1.30 [facility] Comment on above: Performed By: #### L 100.0500, L500.4050 ####[facility] [address] [place], [address] BUN/CRE 15.4 RATIO Normal 10-20 [facility] Comment on above: Performed By: #### L 100.0500, L500.4050 ####[facility] [address] [place], [address] Calcium [Mass/Vol] 9.0 mg/dL Normal 7.6-11.0 [facility] Comment on above: Performed By: #### L 100.0500, L500.4050 ####[facility] [address] [place], [address] Chloride [Moles/Vol] 109 mmol/L High 98-108 [facility] Comment on above: Performed By: #### L 100.0500, L500.4050 ####[facility] [address] [place], [address] CO2 [Moles/Vol] 21.4 mmol/L Normal 21.0-32.0 [facility] Comment on above: Performed By: #### L 100.0500, L500.4050 ####[facility] [address] [place], [address] Creatinine [Mass/Vol] 0.72 mg/dL Normal 0.70-1.20 [facility] Comment on above: Performed By: #### L 100.0500, L500.4050 ####[facility] [address] [place], [address] ECRCL 85.10 ml/min Normal 50-250 [facility] Comment on above: Performed By: #### L 100.0500, L500.4050 ####[facility] [address] [place], [address] GAP 11 Normal 5-15 [facility] Comment on above: Performed By: #### L 100.0500, L500.4050 ####[facility] [address] [place], [address] GFR/1.73 sq M.predicted among non-blacks MDRD (S/P/Bld) [Vol rate/Area] 96 mL/min/{1.73_m2} Normal >60 [facility] Comment on above: Result Comment: mL/m in/1.73m2 CKD-EPI Creatinine Equation (2020) Performed By: #### L 100.0500, L500.4050 ####[facility] [address] [place], [address] Globulin (S) [Mass/Vol] 2.1 g/dL Low 2.2-4.2 [facility] Comment on above: Performed By: #### L 100.0500, L500.4050 ####[facility] [address] [place], [address] Glucose [Mass/Vol] 121 mg/dL High 70-99 [facility] Comment on above: Performed By: #### L 100.0500, L500.4050 ####[facility] [address] [place], [address] Potassium [Moles/Vol] 3.8 mmol/L Normal 3.3-5.1 [facility] Comment on above: Performed By: #### L 100.0500, L500.4050 ####[facility] [address] [place], [address] Sodium [Moles/Vol] 141 mmol/L Normal 133-145 [facility] Comment on above: Performed By: #### L 100.0500, L500.4050 ####[facility] [address] [place], [address] T PROT 6.0 g/dL Normal 5.9-8.4 [facility] Comment on above: Performed By: #### L 100.0500, L500.4050 ####[facility] [address] [place], [address] Urea nitrogen [Mass/Vol] 11 mg/dL Normal 4-19 [facility] Comment on above: Performed By: #### L 100.0500, L500.4050 ####[facility] [address] [place], [address] CBC-Complete Blood Cnt No Di ffon 12-21-2024 Erythrocyte distribution width (RBC) [Ratio] 11.8 % Normal 11.6-14.6 [facility] Comment on above: Performed By: #### L 100.0500, L500.4050 ####[facility] [address] [place], [address] Hematocrit (Bld) [Volume fraction] 33.0 % Low 37-47 [facility] Comment on above: Performed By: #### L 100.0500, L500.4050 ####[facility] [address] [place], [address] Hemoglobin (Bld) [Mass/Vol] 11.3 g/dL Low 12.0-15.0 [facility] Comment on above: Performed By: #### L 100.0500, L500.4050 ####[facility] [address] [place], [address] MCH (RBC) [Entitic mass] 30.7 pg Normal 27.0-32.0 [facility] Comment on above: Performed By: #### L 100.0500, L500.4050 ####[facility] [address] [place], [address] MCHC (RBC) [Mass/Vol] 34.2 g/dL Normal 32-36 [facility] Comment on above: Performed By: #### L 100.0500, L500.4050 ####[facility] [address] [place], [address] MCV (RBC) [Entitic vol] 89.7 fL Normal 81-99 [facility] Comment on above: Performed By: #### L 100.0500, L500.4050 ####[facility] [address] [place], [address] Platelet mean volume (Bld) [Entitic vol] 10.0 fL Normal 6.2-12.0 [facility] Comment on above: Performed By: #### L 100.0500, L500.4050 ####[facility] [address] [place], [address] Platelets (Bld) [#/Vol] 177 10*3/uL Normal 150-450 [facility] Comment on above: Performed By: #### L 100.0500, L500.4050 ####[facility] [address] [place], [address] RBC (Bld) [#/Vol] 3.68 10*6/uL Low 4.2-5.4 [facility] Comment on above: Performed By: #### L 100.0500, L500.4050 ####[facility] [address] [place], [address] RDW SD 38.4 fl Normal 35.1-43.9 [facility] Comment on above: Performed By: #### L 100.0500, L500.4050 ####[facility] [address] [place], [address] WBC (Bld) [#/Vol] 4.4 10*3/uL Normal 4.4-11.0 [facility] Comment on above: Performed By: #### L 100.0500, L500.4050 ####[facility] [address] [place], [address] Comprehensive Metabolic Prof ilon 12-21-2024 Albumin [Mass/Vol] 3.7 g/dL Normal 3.4-4.8 [facility] Comment on above: Performed By: #### L 100.0500, L500.4050 ####[facility] [address] [place], [address] Albumin/Globulin [Mass ratio] 1.8 {ratio} Normal 0.9-2.4 [facility] Comment on above: Performed By: #### L 100.0500, L500.4050 ####[facility] [address] [place], [address] ALK PHOS 50 U/L Normal 35-104 [facility] Comment on above: Performed By: #### L 100.0500, L500.4050 ####[facility] [address] [place], [address] ALT [Catalytic activity/Vol] 14 U/L Normal <=34 [facility] Comment on above: Performed By: #### L 100.0500, L500.4050 ####[facility] [address] [place], [address] AST [Catalytic activity/Vol] 18 U/L Normal <=31 [facility] Comment on above: Performed By: #### L 100.0500, L500.4050 ####[facility] [address] [place], [address] Bilirubin [Mass/Vol] 0.35 mg/dL Normal 0.00-1.30 [facility] Comment on above: Performed By: #### L 100.0500, L500.4050 ####[facility] [address] [place], [address] BUN/CRE 17.2 RATIO Normal 10-20 [facility] Comment on above: Performed By: #### L 100.0500, L500.4050 ####[facility] [address] [place], [address] Calcium [Mass/Vol] 8.6 mg/dL Normal 7.6-11.0 [facility] Comment on above: Performed By: #### L 100.0500, L500.4050 ####[facility] [address] [place], [address] Chloride [Moles/Vol] 110 mmol/L High 98-108 [facility] Comment on above: Performed By: #### L 100.0500, L500.4050 ####[facility] [address] [place], [address] CO2 [Moles/Vol] 22.4 mmol/L Normal 21.0-32.0 [facility] Comment on above: Performed By: #### L 100.0500, L500.4050 ####[facility] [address] [place], [address] Creatinine [Mass/Vol] 0.75 mg/dL Normal 0.70-1.20 [facility] Comment on above: Performed By: #### L 100.0500, L500.4050 ####[facility] [address] [place], [address] ECRCL 81.70 ml/min Normal 50-250 [facility] Comment on above: Performed By: #### L 100.0500, L500.4050 ####[facility] [address] [place], [address] GAP 10 Normal 5-15 [facility] Comment on above: Performed By: #### L 100.0500, L500.4050 ####[facility] [address] [place], [address] GFR/1.73 sq M.predicted among non-blacks MDRD (S/P/Bld) [Vol rate/Area] 91 mL/min/{1.73_m2} Normal >60 [facility] Comment on above: Result Comment: mL/m in/1.73m2 CKD-EPI Creatinine Equation (2020) Performed By: #### L 100.0500, L500.4050 ####[facility] [address] [place], [address] Globulin (S) [Mass/Vol] 2.0 g/dL Low 2.2-4.2 [facility] Comment on above: Performed By: #### L 100.0500, L500.4050 ####[facility] [address] [place], [address] Glucose [Mass/Vol] 91 mg/dL Normal 70-99 [facility] Comment on above: Performed By: #### L 100.0500, L500.4050 ####[facility] [address] [place], [address] Potassium [Moles/Vol] 3.2 mmol/L Low 3.3-5.1 [facility] Comment on above: Performed By: #### L 100.0500, L500.4050 ####[facility] [address] [place], [address] Sodium [Moles/Vol] 143 mmol/L Normal 133-145 [facility] Comment on above: Performed By: #### L 100.0500, L500.4050 ####[facility] [address] [place], [address] T PROT 5.7 g/dL Low 5.9-8.4 [facility] Comment on above: Performed By: #### L 100.0500, L500.4050 ####[facility] [address] [place], [address] Urea nitrogen [Mass/Vol] 13 mg/dL Normal 4-19 [facility] Comment on above: Performed By: #### L 100.0500, L500.4050 ####[facility] [address] [place], [address] MR/CON.PCM.GIon 12-21-2024 MR/CON.PCM.GI Normal [facility] Abdomen/Pelvis WITH Contrast on 12-20-2024 Abdomen/Pelvis WITH Contrast Normal [facility] CBC-Complete Blood Cnt No Di ffon 12-20-2024 Erythrocyte distribution width (RBC) [Ratio] 11.8 % Normal 11.6-14.6 [facility] Comment on above: Performed By: #### L 100.0500, L501.5200, L500.4050 ####[facility] [address] [place], [address] Hematocrit (Bld) [Volume fraction] 34.8 % Low 37-47 [facility] Comment on above: Performed By: #### L 100.0500, L501.5200, L500.4050 ####[facility] [address] [place], [address] Hemoglobin (Bld) [Mass/Vol] 11.7 g/dL Low 12.0-15.0 [facility] Comment on above: Performed By: #### L 100.0500, L501.5200, L500.4050 ####[facility] [address] [place], [address] MCH (RBC) [Entitic mass] 30.2 pg Normal 27.0-32.0 [facility] Comment on above: Performed By: #### L 100.0500, L501.5200, L500.4050 ####[facility] [address] [place], [address] MCHC (RBC) [Mass/Vol] 33.6 g/dL Normal 32-36 [facility] Comment on above: Performed By: #### L 100.0500, L501.5200, L500.4050 ####[facility] [address] [place], [address] MCV (RBC) [Entitic vol] 89.7 fL Normal 81-99 [facility] Comment on above: Performed By: #### L 100.0500, L501.5200, L500.4050 ####[facility] [address] [place], [address] Platelet mean volume (Bld) [Entitic vol] 9.4 fL Normal 6.2-12.0 [facility] Comment on above: Performed By: #### L 100.0500, L501.5200, L500.4050 ####[facility] [address] [place], [address] Platelets (Bld) [#/Vol] 166 10*3/uL Normal 150-450 [facility] Comment on above: Performed By: #### L 100.0500, L501.5200, L500.4050 ####[facility] [address] [place], [address] RBC (Bld) [#/Vol] 3.88 10*6/uL Low 4.2-5.4 [facility] Comment on above: Performed By: #### L 100.0500, L501.5200, L500.4050 ####[facility] [address] [place], [address] RDW SD 38.5 fl Normal 35.1-43.9 [facility] Comment on above: Performed By: #### L 100.0500, L501.5200, L500.4050 ####[facility] [address] [place], [address] WBC (Bld) [#/Vol] 4.3 10*3/uL Low 4.4-11.0 [facility] Comment on above: Performed By: #### L 100.0500, L501.5200, L500.4050 ####[facility] [address] [place], [address] Clostridium Diff Toxin/Agon 12-20-2024 CDIFF (EIA) Normal [facility] Comment on above: Performed By: #### M 100.637, M100.6796, M100.6795 ####[facility] [address] [place], [address] Comprehensive Metabolic Prof ilon 12-20-2024 Albumin [Mass/Vol] 3.8 g/dL Normal 3.4-4.8 [facility] Comment on above: Performed By: #### L 100.0500, L501.5200, L500.4050 ####[facility] [address] [place], [address] Albumin/Globulin [Mass ratio] 1.8 {ratio} Normal 0.9-2.4 [facility] Comment on above: Performed By: #### L 100.0500, L501.5200, L500.4050 ####[facility] [address] [place], [address] ALK PHOS 51 U/L Normal 35-104 [facility] Comment on above: Performed By: #### L 100.0500, L501.5200, L500.4050 ####[facility] [address] [place], [address] ALT [Catalytic activity/Vol] 15 U/L Normal <=34 [facility] Comment on above: Performed By: #### L 100.0500, L501.5200, L500.4050 ####[facility] [address] [place], [address] AST [Catalytic activity/Vol] 20 U/L Normal <=31 [facility] Comment on above: Performed By: #### L 100.0500, L501.5200, L500.4050 ####[facility] [address] [place], [address] Bilirubin [Mass/Vol] 0.47 mg/dL Normal 0.00-1.30 [facility] Comment on above: Performed By: #### L 100.0500, L501.5200, L500.4050 ####[facility] [address] [place], [address] BUN/CRE 15.2 RATIO Normal 10-20 [facility] Comment on above: Performed By: #### L 100.0500, L501.5200, L500.4050 ####[facility] [address] [place], [address] Calcium [Mass/Vol] 8.6 mg/dL Normal 7.6-11.0 [facility] Comment on above: Performed By: #### L 100.0500, L501.5200, L500.4050 ####[facility] [address] [place], [address] Chloride [Moles/Vol] 110 mmol/L High 98-108 [facility] Comment on above: Performed By: #### L 100.0500, L501.5200, L500.4050 ####[facility] [address] [place], [address] CO2 [Moles/Vol] 23.5 mmol/L Normal 21.0-32.0 [facility] Comment on above: Performed By: #### L 100.0500, L501.5200, L500.4050 ####[facility] [address] [place], [address] Creatinine [Mass/Vol] 0.86 mg/dL Normal 0.70-1.20 [facility] Comment on above: Performed By: #### L 100.0500, L501.5200, L500.4050 ####[facility] [address] [place], [address] ECRCL 71.25 ml/min Normal 50-250 [facility] Comment on above: Performed By: #### L 100.0500, L501.5200, L500.4050 ####[facility] [address] [place], [address] GAP 10 Normal 5-15 [facility] Comment on above: Performed By: #### L 100.0500, L501.5200, L500.4050 ####[facility] [address] [place], [address] GFR/1.73 sq M.predicted among non-blacks MDRD (S/P/Bld) [Vol rate/Area] 77 mL/min/{1.73_m2} Normal >60 [facility] Comment on above: Result Comment: mL/m in/1.73m2 CKD-EPI Creatinine Equation (2020) Performed By: #### L 100.0500, L501.5200, L500.4050 ####[facility] [address] [place], [address] Globulin (S) [Mass/Vol] 2.1 g/dL Low 2.2-4.2 [facility] Comment on above: Performed By: #### L 100.0500, L501.5200, L500.4050 ####[facility] [address] [place], [address] Glucose [Mass/Vol] 90 mg/dL Normal 70-99 [facility] Comment on above: Performed By: #### L 100.0500, L501.5200, L500.4050 ####[facility] [address] [place], [address] Potassium [Moles/Vol] 3.5 mmol/L Normal 3.3-5.1 [facility] Comment on above: Performed By: #### L 100.0500, L501.5200, L500.4050 ####[facility] [address] [place], [address] Sodium [Moles/Vol] 143 mmol/L Normal 133-145 [facility] Comment on above: Performed By: #### L 100.0500, L501.5200, L500.4050 ####[facility] [address] [place], [address] T PROT 5.9 g/dL Normal 5.9-8.4 [facility] Comment on above: Performed By: #### L 100.0500, L501.5200, L500.4050 ####[facility] [address] [place], [address] Urea nitrogen [Mass/Vol] 13 mg/dL Normal 4-19 [facility] Comment on above: Performed By: #### L 100.0500, L501.5200, L500.4050 ####[facility] [address] [place], [address] ENTERIC PATHOGEN PANEL STOOL on 12-20-2024 EP PANEL Normal [facility] Comment on above: Performed By: #### M 100.637, M100.6007, M100.7481 ####[facility] [address] [place], [address] Gastric Emptying Studyon Gastric Emptying Study Normal [facility] Magnesiumon 12-20-2024 Magnesium [Mass/Vol] 2.3 mg/dL High 1.5-2.2 [facility] Comment on above: Performed By: #### L 100.0500, L501.5200, L500.4050 ####[facility] [address] [place], [address] Magnesium (Unsp spec) [Mass/ Vol]Ordered By: Corin Flores on 12-20-2024 Magnesium [Mass/Vol] 2.3 mg/dL High 1.5-2.2 [facility] Magnesium measurement (mass/ volume)Ordered By: Corin Flores on 12-20-2024 Magnesium (Unsp spec) [Mass/Vol] 2.3 mg/dL High 1.5-2.2 [facility] Absolute lymphocyte countOrd ered By: Irineo Perez on 12-19-2024 Lymphocytes Auto (Unsp spec) [#/Vol] 1.29 10*3/uL 0.83-4.51 [facility] Absolute neutrophil countOrd ered By: Irineo Perez on 12-19-2024 Neutrophils (Bld) [#/Vol] 2.2 10*3/uL 2.0-7.7 [facility] Automated lymphocyte count a s percentage of total leukocytesOrdered By: Irineo Perez on 12-19-2024 Lymphocytes/100 WBC Auto (Unsp spec) 29.5 % 19-41 [facility] Basic Metabolic Profile (BMP )on 12-19-2024 BUN/CRE 12.7 RATIO Normal 10-20 [facility] Comment on above: Performed By: #### L 100.0100, L500.2500 ####[facility] [address] [place], [address] Calcium [Mass/Vol] 8.6 mg/dL Normal 7.6-11.0 [facility] Comment on above: Performed By: #### L 100.0100, L500.2500 ####[facility] [address] [place], [address] Chloride [Moles/Vol] 111 mmol/L High 98-108 [facility] Comment on above: Performed By: #### L 100.0100, L500.2500 ####[facility] [address] [place], [address] CO2 [Moles/Vol] 23.4 mmol/L Normal 21.0-32.0 [facility] Comment on above: Performed By: #### L 100.0100, L500.2500 ####[facility] [address] [place], [address] Creatinine [Mass/Vol] 0.87 mg/dL Normal 0.70-1.20 [facility] Comment on above: Performed By: #### L 100.0100, L500.2500 ####[facility] [address] [place], [address] ECRCL 70.43 ml/min Normal 50-250 [facility] Comment on above: Performed By: #### L 100.0100, L500.2500 ####[facility] [address] [place], [address] GAP 10 Normal 5-15 [facility] Comment on above: Performed By: #### L 100.0100, L500.2500 ####[facility] [address] [place], [address] GFR/1.73 sq M.predicted among non-blacks MDRD (S/P/Bld) [Vol rate/Area] 76 mL/min/{1.73_m2} Normal >60 [facility] Comment on above: Result Comment: mL/m in/1.73m2 CKD-EPI Creatinine Equation (2020) Performed By: #### L 100.0100, L500.2500 ####[facility] [address] [place], [address] Glucose [Mass/Vol] 88 mg/dL Normal 70-99 [facility] Comment on above: Performed By: #### L 100.0100, L500.2500 ####[facility] [address] [place], [address] Potassium [Moles/Vol] 3.5 mmol/L Normal 3.3-5.1 [facility] Comment on above: Performed By: #### L 100.0100, L500.2500 ####[facility] [address] [place], [address] Sodium [Moles/Vol] 144 mmol/L Normal 133-145 [facility] Comment on above: Performed By: #### L 100.0100, L500.2500 ####[facility] [address] [place], [address] Urea nitrogen [Mass/Vol] 11 mg/dL Normal 4-19 [facility] Comment on above: Performed By: #### L 100.0100, L500.2500 ####[facility] [address] [place], [address] Basophil percentageOrdered B y: Irineo Perez on 12-19-2024 Basophils/100 WBC (Bld) 2.3 % High 0-1 [facility] C. difficile DNA FRANKIE+probe Q l (Unsp spec)Ordered By: Corin Flores on 12-19-2024 Clostridioides difficile (PCR) [facility] C. difficile Ql (Stl)Ordered By: Corin Flores on 12-19-2024 C. difficile GDH Antigen & Toxins [facility] CBC W/Diff, Automatedon 12-08 Absolute Lymph 1.29 X10 3/uL Normal 0.83-4.51 [facility] Comment on above: Performed By: #### L 100.0100, L500.2500 ####[facility] [address] [place], [address] Absolute Neut 2.2 X10 3/uL Normal 2.0-7.7 [facility] Comment on above: Performed By: #### L 100.0100, L500.2500 ####[facility] [address] [place], [address] Basophils/100 WBC (Bld) 2.3 % High 0-1 [facility] Comment on above: Performed By: #### L 100.0100, L500.2500 ####[facility] [address] [place], [address] Eosinophils/100 WBC (Bld) 1.8 % Normal 0-5 [facility] Comment on above: Performed By: #### L 100.0100, L500.2500 ####[facility] [address] [place], [address] Erythrocyte distribution width (RBC) [Ratio] 11.9 % Normal 11.6-14.6 [facility] Comment on above: Performed By: #### L 100.0100, L500.2500 ####[facility] [address] [place], [address] Hematocrit (Bld) [Volume fraction] 33.4 % Low 37-47 [facility] Comment on above: Performed By: #### L 100.0100, L500.2500 ####[facility] [address] [place], [address] Hemoglobin (Bld) [Mass/Vol] 11.1 g/dL Low 12.0-15.0 [facility] Comment on above: Performed By: #### L 100.0100, L500.2500 ####[facility] [address] [place], [address] IG% 0.200 Normal 0.0-0.9 [facility] Comment on above: Result Comment: IG% - Immature Granulocytes (promyelocytes, myelocytes andmetamyelocytes) > 1% indicates that a LEFT SHIFT is Present. Performed By: #### L 100.0100, L500.2500 ####[facility] [address] [place], [address] Lymphocytes/100 WBC (Bld) 29.5 % Normal 19-41 [facility] Comment on above: Performed By: #### L 100.0100, L500.2500 ####[facility] [address] [place], [address] MCH (RBC) [Entitic mass] 29.8 pg Normal 27.0-32.0 [facility] Comment on above: Performed By: #### L 100.0100, L500.2500 ####[facility] [address] [place], [address] MCHC (RBC) [Mass/Vol] 33.2 g/dL Normal 32-36 [facility] Comment on above: Performed By: #### L 100.0100, L500.2500 ####[facility] [address] [place], [address] MCV (RBC) [Entitic vol] 89.8 fL Normal 81-99 [facility] Comment on above: Performed By: #### L 100.0100, L500.2500 ####[facility] [address] [place], [address] Monocytes/100 WBC (Bld) 16.0 % High 0-10 [facility] Comment on above: Performed By: #### L 100.0100, L500.2500 ####[facility] [address] [place], [address] Neutrophils/100 WBC (Bld) 50.2 % Normal 47-70 [facility] Comment on above: Performed By: #### L 100.0100, L500.2500 ####[facility] [address] [place], [address] Nucleated RBC (Bld) [#/Vol] 0 10*3/uL Normal 0-5 [facility] Comment on above: Performed By: #### L 100.0100, L500.2500 ####[facility] [address] [place], [address] Platelet mean volume (Bld) [Entitic vol] 10.1 fL Normal 6.2-12.0 [facility] Comment on above: Performed By: #### L 100.0100, L500.2500 ####[facility] [address] [place], [address] Platelets (Bld) [#/Vol] 172 10*3/uL Normal 150-450 [facility] Comment on above: Performed By: #### L 100.0100, L500.2500 ####[facility] [address] [place], [address] RBC (Bld) [#/Vol] 3.72 10*6/uL Low 4.2-5.4 [facility] Comment on above: Performed By: #### L 100.0100, L500.2500 ####[facility] [address] [place], [address] RDW SD 38.5 fl Normal 35.1-43.9 [facility] Comment on above: Performed By: #### L 100.0100, L500.2500 ####[facility] [address] [place], [address] WBC (Bld) [#/Vol] 4.4 10*3/uL Normal 4.4-11.0 [facility] Comment on above: Performed By: #### L 100.0100, L500.2500 ####[facility] [address] [place], [address] CDIFF (PCR)on 12-19-2024 CDIFF Normal [facility] Comment on above: Performed By: #### M 100637, M153.0270, M107.5449 ####[facility] [address] [place], [address] Clostridium difficile detect ion by polymerase chain reactionOrdered By: Corin Flores on 12-19-2024 C. difficile DNA FRANKIE+probe Ql (Unsp spec) [facility] Eosinophil percentageOrdered By: Irineo Perez on 12-19-2024 Eosinophils/100 WBC (Bld) 1.8 % 0-5 [facility] Immature granulocytes/100 WB C Auto (Bld)Ordered By: Irineo Perez on 12-19-2024 Immature granulocytes/100 WBC (Bld) 0.200 % 0.0-0.9 [facility] Comment on above: IG% - Immature Granu locytes (promyelocytes, myelocytes and metamyelocytes) > 1% indicates that a LEFT SHIFT is Present. Lymphocytes Auto (Unsp spec) [#/Vol]Ordered By: Irineo Perez on 12-19-2024 Lymphocytes (Bld) [#/Vol] 1.29 10*3/uL 0.83-4.51 [facility] Lymphocytes/100 WBC Auto (Un sp spec)Ordered By: Irineo Perez on 12-19-2024 Lymphocytes/100 WBC (Bld) 29.5 % 19-41 [facility] Monocyte percentageOrdered B y: Irineo Perez on 12-19-2024 Monocytes/100 WBC (Bld) 16.0 % High 0-10 [facility] Neutrophil percentageOrdered By: Irineo Perez on 12-19-2024 Neutrophils/100 WBC (Bld) 50.2 % 47-70 [facility] Nucleated red blood cell per centageOrdered By: Irineo Perez on 12-19-2024 Nucleated RBC/100 WBC (Bld) [Ratio] 0 % 0-5 [facility] Stool Clostridium difficile detectionOrdered By: Corin Flores on 12-19-2024 C. difficile Ql (Stl) [facility] Stool enteric pathogen panel by probe and target amplification methodOrdered By: Corin Flores on 12-19-2024 Enteric Bacteriology [facility] Absolute neutrophil countOrd ered By: Surjit Santizo on 12-18-2024 Neutrophils (Bld) [#/Vol] 3.3 10*3/uL 2.0-7.7 [facility] Anion gap in Serum or Plasma Ordered By: Surjit Santizo on 12-18-2024 Anion gap [Moles/Vol] 13 mmol/L 5-15 [facility] BUN/creatinine ratioOrdered By: Surjit Santizo on 12-18-2024 Urea nitrogen/Creatinine [Mass ratio] 16.0 mg/mg 10-20 [facility] Basophil percentageOrdered B y: Surjit Santizo on 12-18-2024 Basophils/100 WBC (Bld) 2.1 % High 0-1 [facility] Bilirubin, totalOrdered By: Surjit Santizo on 12-18-2024 Bilirubin [Mass/Vol] 0.52 mg/dL 0.00-1.30 [facility] CBC W/Diff, Automatedon 12-08 Absolute Lymph 0.60 X10 3/uL Low 0.83-4.51 [facility] Comment on above: Performed By: #### L 100.0100, L501.2450, L500.4050 ####[facility] [address] [place], [address] Absolute Neut 3.3 X10 3/uL Normal 2.0-7.7 [facility] Comment on above: Performed By: #### L 100.0100, L501.2450, L500.4050 ####[facility] [address] [place], [address] Basophils/100 WBC (Bld) 2.1 % High 0-1 [facility] Comment on above: Performed By: #### L 100.0100, L501.2450, L500.4050 ####[facility] [address] [place], [address] Eosinophils/100 WBC (Bld) 0.6 % Normal 0-5 [facility] Comment on above: Performed By: #### L 100.0100, L501.2450, L500.4050 ####[facility] [address] [place], [address] Erythrocyte distribution width (RBC) [Ratio] 11.8 % Normal 11.6-14.6 [facility] Comment on above: Performed By: #### L 100.0100, L501.2450, L500.4050 ####[facility] [address] [place], [address] Hematocrit (Bld) [Volume fraction] 37.8 % Normal 37-47 [facility] Comment on above: Performed By: #### L 100.0100, L501.2450, L500.4050 ####[facility] [address] [place], [address] Hemoglobin (Bld) [Mass/Vol] 12.8 g/dL Normal 12.0-15.0 [facility] Comment on above: Performed By: #### L 100.0100, L501.2450, L500.4050 ####[facility] [address] [place], [address] IG% 0.400 Normal 0.0-0.9 [facility] Comment on above: Result Comment: IG% - Immature Granulocytes (promyelocytes, myelocytes andmetamyelocytes) > 1% indicates that a LEFT SHIFT is Present. Performed By: #### L 100.0100, L501.2450, L500.4050 ####[facility] [address] [place], [address] Lymphocytes/100 WBC (Bld) 12.7 % Low 19-41 [facility] Comment on above: Performed By: #### L 100.0100, L501.2450, L500.4050 ####[facility] [address] [place], [address] MCH (RBC) [Entitic mass] 30.3 pg Normal 27.0-32.0 [facility] Comment on above: Performed By: #### L 100.0100, L501.2450, L500.4050 ####[facility] [address] [place], [address] MCHC (RBC) [Mass/Vol] 33.9 g/dL Normal 32-36 [facility] Comment on above: Performed By: #### L 100.0100, L501.2450, L500.4050 ####[facility] [address] [place], [address] MCV (RBC) [Entitic vol] 89.4 fL Normal 81-99 [facility] Comment on above: Performed By: #### L 100.0100, L501.2450, L500.4050 ####[facility] [address] [place], [address] Monocytes/100 WBC (Bld) 14.4 % High 0-10 [facility] Comment on above: Performed By: #### L 100.0100, L501.2450, L500.4050 ####[facility] [address] [place], [address] Neutrophils/100 WBC (Bld) 69.8 % Normal 47-70 [facility] Comment on above: Performed By: #### L 100.0100, L501.2450, L500.4050 ####[facility] [address] [place], [address] Nucleated RBC (Bld) [#/Vol] 0 10*3/uL Normal 0-5 [facility] Comment on above: Performed By: #### L 100.0100, L501.2450, L500.4050 ####[facility] [address] [place], [address] Platelet mean volume (Bld) [Entitic vol] 9.6 fL Normal 6.2-12.0 [facility] Comment on above: Performed By: #### L 100.0100, L501.2450, L500.4050 ####[facility] [address] [place], [address] Platelets (Bld) [#/Vol] 190 10*3/uL Normal 150-450 [facility] Comment on above: Performed By: #### L 100.0100, L501.2450, L500.4050 ####[facility] [address] [place], [address] RBC (Bld) [#/Vol] 4.23 10*6/uL Normal 4.2-5.4 [facility] Comment on above: Performed By: #### L 100.0100, L501.2450, L500.4050 ####[facility] [address] [place], [address] RDW SD 38.3 fl Normal 35.1-43.9 [facility] Comment on above: Performed By: #### L 100.0100, L501.2450, L500.4050 ####[facility] [address] [place], [address] WBC (Bld) [#/Vol] 4.7 10*3/uL Normal 4.4-11.0 [facility] Comment on above: Performed By: #### L 100.0100, L501.2450, L500.4050 ####[facility] [address] [place], [address] Carbon dioxide, total [Moles /volume] in Central venous bloodOrdered By: Surjit Santizo on 12-18-2024 CO2 [Moles/Vol] 23.7 mmol/L 21.0-32.0 [facility] Chloride assayOrdered By: Tr Santizo on 12-18-2024 Chloride [Moles/Vol] 105 mmol/L 98-108 [facility] Comprehensive Metabolic Prof ilon 12-18-2024 Albumin [Mass/Vol] 4.2 g/dL Normal 3.4-4.8 [facility] Comment on above: Performed By: #### L 100.0100, L501.2450, L500.4050 ####[facility] [address] [place], [address] Albumin/Globulin [Mass ratio] 1.6 {ratio} Normal 0.9-2.4 [facility] Comment on above: Performed By: #### L 100.0100, L501.2450, L500.4050 ####[facility] [address] [place], [address] ALK PHOS 60 U/L Normal 35-104 [facility] Comment on above: Performed By: #### L 100.0100, L501.2450, L500.4050 ####[facility] [address] [place], [address] ALT [Catalytic activity/Vol] 17 U/L Normal <=34 [facility] Comment on above: Performed By: #### L 100.0100, L501.2450, L500.4050 ####[facility] [address] [place], [address] AST [Catalytic activity/Vol] 28 U/L Normal <=31 [facility] Comment on above: Performed By: #### L 100.0100, L501.2450, L500.4050 ####[facility] [address] [place], [address] Bilirubin [Mass/Vol] 0.52 mg/dL Normal 0.00-1.30 [facility] Comment on above: Performed By: #### L 100.0100, L501.2450, L500.4050 ####[facility] [address] [place], [address] BUN/CRE 16.0 RATIO Normal 10-20 [facility] Comment on above: Performed By: #### L 100.0100, L501.2450, L500.4050 ####[facility] [address] [place], [address] Calcium [Mass/Vol] 9.6 mg/dL Normal 7.6-11.0 [facility] Comment on above: Performed By: #### L 100.0100, L501.2450, L500.4050 ####[facility] [address] [place], [address] Chloride [Moles/Vol] 105 mmol/L Normal 98-108 [facility] Comment on above: Performed By: #### L 100.0100, L501.2450, L500.4050 ####[facility] [address] [place], [address] CO2 [Moles/Vol] 23.7 mmol/L Normal 21.0-32.0 [facility] Comment on above: Performed By: #### L 100.0100, L501.2450, L500.4050 ####[facility] [address] [place], [address] Creatinine [Mass/Vol] 0.86 mg/dL Normal 0.70-1.20 [facility] Comment on above: Performed By: #### L 100.0100, L501.2450, L500.4050 ####[facility] [address] [place], [address] ECRCL 77.75 ml/min Normal 50-250 [facility] Comment on above: Performed By: #### L 100.0100, L501.2450, L500.4050 ####[facility] [address] [place], [address] GAP 13 Normal 5-15 [facility] Comment on above: Performed By: #### L 100.0100, L501.2450, L500.4050 ####[facility] [address] [place], [address] GFR/1.73 sq M.predicted among non-blacks MDRD (S/P/Bld) [Vol rate/Area] 78 mL/min/{1.73_m2} Normal >60 [facility] Comment on above: Result Comment: mL/m in/1.73m2 CKD-EPI Creatinine Equation (2020) Performed By: #### L 100.0100, L501.2450, L500.4050 ####[facility] [address] [place], [address] Globulin (S) [Mass/Vol] 2.6 g/dL Normal 2.2-4.2 [facility] Comment on above: Performed By: #### L 100.0100, L501.2450, L500.4050 ####[facility] [address] [place], [address] Glucose [Mass/Vol] 114 mg/dL High 70-99 [facility] Comment on above: Performed By: #### L 100.0100, L501.2450, L500.4050 ####[facility] [address] [place], [address] Potassium [Moles/Vol] 3.9 mmol/L Normal 3.3-5.1 [facility] Comment on above: Result Comment: Hemo lysis present, Results??could be affected.?? Performed By: #### L 100.0100, L501.2450, L500.4050 ####[facility] [address] [place], [address] Sodium [Moles/Vol] 142 mmol/L Normal 133-145 [facility] Comment on above: Performed By: #### L 100.0100, L501.2450, L500.4050 ####[facility] [address] [place], [address] T PROT 6.7 g/dL Normal 5.9-8.4 [facility] Comment on above: Performed By: #### L 100.0100, L501.2450, L500.4050 ####[facility] [address] [place], [address] Urea nitrogen [Mass/Vol] 14 mg/dL Normal 4-19 [facility] Comment on above: Performed By: #### L 100.0100, L501.2450, L500.4050 ####[facility] [address] [place], [address] Emergency Department Summary on 12-18-2024 Emergency Department Summary Normal [facility] Eosinophil percentageOrdered By: Surjit Santizo on 12-18-2024 Eosinophils/100 WBC (Bld) 0.6 % 0-5 [facility] Erythrocyte distribution wid th ratioOrdered By: Surjit Santizo on 12-18-2024 Erythrocyte distribution width (RBC) [Ratio] 11.8 % 11.6-14.6 [facility] Erythrocyte distribution wid th standard deviationOrdered By: Surijt Santizo on 12-18-2024 Erythrocyte distribution width (RBC) [Entitic vol] 38.3 fL 35.1-43.9 [facility] Estimation of creatinine jaclyn aranceOrdered By: Surjit Santizo on 12-18-2024 Estimated Creatinine Clearance Calc 77.75 ml/min 50-250 [facility] GFR/1.73 sq M.predicted miryam g non-blacks MDRD (S/P/Bld) [Vol rate/Area]Ordered By: Surjit Santizo on 12-18-2024 Estimated GFR (MDRD) Non-Af Amer 78 >60 [facility] Comment on above: mL/min/1.73m2 CKD-EP I Creatinine Equation (2020) H AND P Exam - Hospitaliston 12-18-2024 H&P Exam - Hospitalist Normal [facility] Hematocrit Auto (Bld) [Volum e fraction]Ordered By: Surjit Santizo on 12-18-2024 Hematocrit (Bld) [Volume fraction] 37.8 % 37-47 [facility] Hemoglobin measurementOrdere d By: Surjit Santizo on 12-18-2024 Hemoglobin (Bld) [Mass/Vol] 12.8 g/dL 12.0-15.0 [facility] Immature granulocytes/100 WB C Auto (Bld)Ordered By: Surjit Santizo on 12-18-2024 Immature granulocytes/100 WBC (Bld) 0.400 % 0.0-0.9 [facility] Comment on above: IG% - Immature Granu locytes (promyelocytes, myelocytes and metamyelocytes) > 1% indicates that a LEFT SHIFT is Present. Laboratory - Chemistry and C hemistry - challengeOrdered By: Surjit Santizo on 12-18-2024 AST [Catalytic activity/Vol] 28 U/L <32 [facility] Lipaseon 12-18-2024 Lipase [Catalytic activity/Vol] 27 U/L Normal 13-75 [facility] Comment on above: Result Comment: Maylin hsieh note:LIPASE revised reference range effective 23.New Lipase methodology. Expected to produce lower valuesthan the previous assay method.NEW Reference Range: 13 - 75 U/L Performed By: #### L 100.0100, L501.2450, L500.4050 ####[facility] [address] [place], [place], [id number] Lipase measurementOrdered By : Surjit Santizo on 12-18-2024 Lipase [Catalytic activity/Vol] 27 U/L 13-75 [facility] Comment on above: Please note:LIPASE r evised reference range effective 23. New Lipase methodology. Expected to produce lower values than the previous assay method. NEW Reference Range: 13 - 75 U/L Lymphocytes Auto (Unsp spec) [#/Vol]Ordered By: Surjit Santizo on 12-18-2024 Lymphocytes (Bld) [#/Vol] 0.60 10*3/uL Low 0.83-4.51 [facility] Lymphocytes/100 WBC Auto (Un sp spec)Ordered By: Surjit Santizo on 12-18-2024 Lymphocytes/100 WBC (Bld) 12.7 % Low 19-41 [facility] MCV (mean corpuscular volume ) determinationOrdered By: Surjit Santizo on 12-18-2024 MCV (RBC) [Entitic vol] 89.4 fL 81-99 [facility] Mean corpuscular hemoglobin (MCH) determinationOrdered By: Surjit Santizo on 12-18-2024 MCH (RBC) [Entitic mass] 30.3 pg 27.0-32.0 [facility] Mean corpuscular hemoglobin concentration (MCHC) determinationOrdered By: Surjit aSntizo on 12-18-2024 MCHC (RBC) [Mass/Vol] 33.9 g/dL 32-36 [facility] Mean platelet volume determi nationOrdered By: Surjit Santizo on 12-18-2024 Platelet mean volume (Bld) [Entitic vol] 9.6 fL 6.2-12.0 [facility] Monocyte percentageOrdered B y: Surjit Santizo on 12-18-2024 Monocytes/100 WBC (Bld) 14.4 % High 0-10 [facility] Neutrophil percentageOrdered By: Surjit Santizo on 12-18-2024 Neutrophils/100 WBC (Bld) 69.8 % 47-70 [facility] Nucleated red blood cell per centageOrdered By: Surjit Santizo on 12-18-2024 Nucleated RBC/100 WBC (Bld) [Ratio] 0 % 0-5 [facility] Platelet countOrdered By: Tr Santizo on 12-18-2024 Platelets (Bld) [#/Vol] 190 10*3/uL 150-450 [facility] Potassium (Unsp spec) [Mass/ Vol]Ordered By: Surjit Santizo on 12-18-2024 Potassium [Moles/Vol] 3.9 mmol/L 3.3-5.1 [facility] Comment on above: Hemolysis present, R esults could be affected. RBC Auto (Bld) [#/Vol]Ordere d By: Surjit Santizo on 12-18-2024 RBC (Bld) [#/Vol] 4.23 10*6/uL 4.2-5.4 [facility] Serum creatinine measurement (mass/volume)Ordered By: Surjit Santizo on 12-18-2024 Creatinine [Mass/Vol] 0.86 mg/dL 0.70-1.20 [facility] Serum globulin measurementOr dered By: Surjit Santizo on 12-18-2024 Globulin (S) [Mass/Vol] 2.6 g/dL 2.2-4.2 [facility] Serum glucose measurement (m ass/volume)Ordered By: Surjit Santizo on 12-18-2024 Glucose [Mass/Vol] 114 mg/dL High 70-99 [facility] Serum or plasma alanine grant otransferase (ALT) measurementOrdered By: Surjit Santizo on 12-18-2024 ALT [Catalytic activity/Vol] 17 U/L <35 [facility] Serum or plasma albumin gurinder urement (mass/volume)Ordered By: Surjit Santizo on 12-18-2024 Albumin [Mass/Vol] 4.2 g/dL 3.4-4.8 [facility] Serum or plasma albumin/glob ulin mass ratioOrdered By: Surjit Santizo on 12-18-2024 Albumin/Globulin [Mass ratio] 1.6 {ratio} 0.9-2.4 [facility] Serum or plasma alkaline owen sphatase measurementOrdered By: Surjit Santizo on 12-18-2024 ALP [Catalytic activity/Vol] 60 U/L 35-104 [facility] Serum or plasma calcium gurinder urement (mass/volume)Ordered By: Surjit Santizo on 12-18-2024 Calcium [Mass/Vol] 9.6 mg/dL 7.6-11.0 [facility] Serum or plasma urea nitroge n measurement (mass/volume)Ordered By: Surjit Santizo on 12-18-2024 Urea nitrogen [Mass/Vol] 14 mg/dL 4-19 [facility] Sodium levelOrdered By: Surjit Santizo on 12-18-2024 Sodium [Moles/Vol] 142 mmol/L 133-145 [facility] Total proteinOrdered By: Jayy Santizo on 12-18-2024 Protein [Mass/Vol] 6.7 g/dL 5.9-8.4 [facility] White blood cell (WBC) count Ordered By: Surjit Santizo on 12-18-2024 WBC (Bld) [#/Vol] 4.7 10*3/uL 4.4-11.0 [facility] 12-12-2024 [place] [address] Patient: ALVINO NINA Phone#: : 1965 Age: 59 Gender: F Pt. Type: Out Account: [id number] Location: Ordering: SLIM VALADEZ Exam Date: 12/12/2024/11:36 Family Phys: Charge Code: [id number] Physician: Wilson Order #: [id number] Dose#: PROCEDURE: HIDA SCAN COMPARISON: None. INDICATIONS: Abdominal pain TECHNIQUE: Informed consent was obtained. A routine radionuclide hepatobiliary scan was performed after intravenous injection of 4.7 mCi Tc Choletec with sequential acquisitions every 5 minutes for one hour. Then, a repeat hepatobiliary scan with gallbladder ejection fraction analysis was performed after ingestion of 8 oz of Ensure. Biliary imaging was again performed with imaging performed immediately and at 60 minutes, followed by computer quantitative ejection fraction analysis. PHARMACEUTICAL(S): Tc-99m DINO derivative (see dose listed above). FINDINGS: BILIARY DUCTS: Normal radioisotopic biliary excretion. Bile ducts seen at 15 minutes. GALLBLADDER: Normal with no evidence of cystic duct obstruction. Gallbladder activity seen at 15 minutes. INTESTINE: Normal with no evidence of common biliary ductal obstruction. Small bowel activity seen by 25 minutes. EJECTION FRACTION: 45.8 % at 60 minutes. (Normal EF > 35%). OTHER: Negative. CONCLUSION: 1. Gallbladder ejection fraction 45.8% Dictated by: Yue Humphreys MD on 12/12/2024 at 14:09 Approved by: Yue Humphreys MD on 12/12/2024 at 14:14 Normal [facility] US RUQ (GB/PANCREAS)on 12-05 RUQ (GB/PANCREAS) [place] [address] Patient: ALVINO NINA Phone#: : 1965 Age: 59 Gender: F Pt. Type: Out Account: [id number] Location: Ordering: SLIM VALADEZ Exam Date: 12/05/2024/9:29 Family Phys: Charge Code: 477657 Physician: Wilson Order #: [id number] Dose#: PROCEDURE: RUQ (GB) ULTRASOUND COMPARISON: [facility], US, ABDOMEN COMPLETE, 01/06/2023, 7:23. INDICATIONS: Biliary colic. FINDINGS: Study limited by patient body habitus and shadowing bowel gas. LIVER: Limited evaluation, no obvious abnormality. The previously identified lesion cannot be visualized on this exam BILIARY: Normal appearing gallbladder and biliary tree. Common bile duct diameter 5 mm. Gallbladder wall measures 0.3 cm. PANCREAS: Not visualized due to shadowing bowel gas RIGHT KIDNEY: Limited visualization, seen sufficiently only to exclude hydronephrosis OTHER: Negative. CONCLUSION: 1. Markedly limited study. No appreciable abnormality of the gallbladder. DICTATED BY: YUE HUMPHREYS MD ON 12/05/2024 AT 13:45 APPROVED BY: YUE HUMPHREYS MD ON 12/05/2024 AT 15:28 Normal [facility] AMYLASEon 12-03-2024 Amylase [Catalytic activity/Vol] 46 U/L Normal 25 - 115 [facility] Comment on above: Performed By: #### 2 [id number] #### [place] [address] LIPASEon 12-03-2024 Lipase [Catalytic activity/Vol] 23.0 U/L Normal 15.0 - 78.0 [facility] Comment on above: Result Comment: *PLE ASE NOTE THAT RANGES FOR LIPASE HAVE CHANGED OF 10/07/23 DUE TO AN ASSAY UPDATE BY THE ENGINEERING MGR.THE NEW ASSAY RANGE IS 6-250 U/L, WITH A REFERENCE RANGE OF 16-77 U/L. Performed By: #### 2 [id number] #### [place] [address] CYTOLOGY NON-GYNOrdered By: Vidya Crowell on 11-07-2024 Case Report Medical Cytology Report Case: [id number] Authorizing Provider: Melissa Cunningham MD Collected: 11/05/2024 03:49 PM Ordering Location: General Surgery Received: 11/05/2024 04:53 PM Pathologist: Vidya Crowell MD Specimen: Thyroid, Left, [facility] Work Phone: Clinical History j7vmzIJeZAEgoOZvVGfm Ml mkbgKkUFMzjCIyX5Emtzmo VUhcSX6iKN2waPewvIHlhL JbSLTjWyDwa8aru626iOPn t7ujJLSEzaidsTs7pUtoE2 9tc1P7VfxxL94akLFuLMJ1 TXWkPCZqlBBmNGEjHEW0SF MtyVZaO4woROYoAM3pewwy VYgzRTdlIECpnWQ7LJXfoE ZqY3RyFIFxCJcjKIHfzfw3 HyFgMt6iiAMzhMieWTulWG JkXHBsYWluXGZzMjAgbGVm wDI6uRqvs3nuFZ7uCQWbCP xwYXJccGFyIEFmaXJtYSBy ZWNlaXZlZFxwYXJ9 [facility] Work Phone: [phone] FINAL DIAGNOSIS i2ewgBVhDPBqnNBzSKfs Ml ajutJrAFDqhDVwI9Skpjax MQvgLI3xFA6qjIsjzXMyjL JcPDMeLxLgn5nhw155lBBy o1zuILFHtheetPy6zGurK6 7ei0W1DbqqH3zlLDGeMZmm ZWVuMFxibHVlMDtccmVkMF aemwIhfmNmPhd8YLX1RLh4 XHBhcGVydzEyMjQwXHBhcG OlyCF2YRIwAX6cwnruUfXq VM8yagitYbHeOP6aqst6Uw CkDL5oqpguMsEpKOboDXPz cps6JmUtVk3wsKDmnVhdIQ qaO1fawS2yLjB8LIssK3oi mZ8fZMu5RHxuGYZfjVO5uw wcWQazEXBetiK3hcalANkp WXTcrWF5xdxuCVhiSHXgWi Y0kjsdFXwiGMJpSOYlJNbb XGJcZnMyMlxjZjEgQSAtIF HqiFFrbPWbMSwsAjFyLS0l ZSwgRmluZSBuZWVkbGUgYX NwaXJhdGlvbjpccGFyICAg IUWdJWQnKPTXIN6iL27aMF UfenZfCRHtCWNuMTKwGr2l rAmzhScstjBbu4H3jDIlUT Cou3Eyd9OhODFoyoAlRXOk GSlyKHYcB8UaSCJjTdEtJB AgICBccGFyXHBhclxiMCBU tXSsKj2irF98lX8kFGTecX voVbkyZ1gqGQztubCtEXLg c3SnLQJuYBN3dLVbHXAkoU NtL1BuULrwhXAtYOKmBFOj NqICOMohSLGdk1PoKGRGtS KczH6oDTMkeIVjXXFzMvdu YXJcYlxjZjJccGFyXGIwXG NmMFxwYXJ9 [facility] Work Phone: Gross Description d9lmnXHqYKWieXZWOMZ7 MD SjIF6qrXidrXn8zOzpINDv pvI2nOTaANznu0wbMDR6t7 vuegLCYusgRIJbVM7jSAny CVNvCD2cWwXnZOVmKgZrXP BhcGVydzEyMjQwXHBhcGVy iWV8GBYfFB4lxgsbPYfgGU tiEADvqxL9XFUtqRCeY9Go QTLaAY6kpwghDKH6MRLXUl uaOo4cgAYprQglDiRtIaOl FGDfTQQmTSAzg7pisjTEuf fphYw3aZ9NMEEiG6LtAE0I g1ugNGCliNAsTPN9JCgry2 iaWEoeQYT7RCFcTMOkPCIm CV9QWqKiMMi2EYA5DKz0Ws E1GPn5TEIRGVUpJVUpXUZ4 JRCwZRd0GAuuCEvnbBMuHE VgWEZxGXQtGJvkcbO3p1rj CKGysZDnKRI7GXqxn6qgEY viUZE7SCNmZiLhJYFwJO0J CbPmKCa5OSY5XIg6NwR0JC j7PDRMGlUpVcFiWlVzGvK3 QwNeGZi7AHl9GLwIBrTiDH eyTIb8BaYqPrE1QER4YJMm XHQgMiBcXHNzIDMgXFxmbC LoDZ4ctTaoBMVcBH2WFTId CQoxDJTvLoMkRD0nWJz8tm 1vBUqfMZKhkVkrRN0sYWla dHJjaFxwYXIgDQpccGFyZC ANClxwbGFpblxsdHJjaFxm rvFuEWOpqNIXQSH7BC0vQH ANClxsdHJwYXIgDQozMCBj YyBccHJvdGVjdHtcZmllbG J3JLwpGygdmE3wfPWTCPJV EamAUdtrkjIbGS5LGKCXWy JNLN42XREaZwO7aAU1BK27 ZEBlJFHftERvDXsiK921K6 rpYEI3KLEtOTwrl3vaKXQg IItug1IrFGwZPEYSKX1JIB 7ghWC2NXaJAGQJNVfyKMT3 RDH6DDwjeNumObrfroEwmO UkFzWCpH0mxRfjqR8zuLIl W8bvJsIrQvMcMCWtz3NjO0 T2QOQwXSeiw2lzAIQtTXqm s2CjXNzXKZXHME5RYJ9mtN D6OHoPCBLSZ4uPzLQ9BEkh DJmecNF8d8baeKQzb7t7SB vvWWV3mKQlzll7IUJtRSiq x3npNFUsICugr2KjVTiITM LQIN7RVZ6tuVG4YYfUEOOU QEzjTOP6PQH9PlfryPkzEa ksgiPhcEKnRwKGcP6aeVur qJ2acMTtK2bjLeWmMlTtFI Exi3MrB3X3EQAbXNxra2kc KVDwHSzhk3VrQExZYXBQML 0GMJ5usFC5WFiXIHOEQ4gJ dBG3YUbsGMlwaSF6b4mxtP Rqq6a8PLudKHY1zJD0lA0Q kBJ9TJLjYHomm4rqEQAwDS ldu7RcPKzVHKIMYJ1UOU3f wOQ0XCyDOUFDSGybDKP3VS j4Y6stiSvcIauiiaMciBRl GgEGjG6dwGglaW8ihIMwA2 jlGdFyGiIfRNAeo5EyA0M6 JIAjZDrtf6zwMBZhIOqti0 MeFYwISWTNRH8UDC7ufSD1 NCgISRHMT0oVtGG0XCuyXZ l3nKZ7z5crdVUnu5x7AJpj JIY7mKmqnTodj4GsyiWblP SnlFhedIJvo5avzYNoIXnd YsvwkYJpghC4LOjWWGBVEY xTLzFkGG3oJOoWY2VIXeQ0 JWDgXsEdkBO9CG10RXXyDR YcsPAlBRojD473NRRrZThb JSv8oiDiXHSvZlSiThMeYQ Dxb8HfL5K2DCYkOYpba9pu MUNdFIjao5TeZInYVKJGIU 1COG9ydBK8PVhCCVLIZ0bI jBY7SKO6E1s3zTY6t5fikU Yxv8c9GYwhHKX0uNAkyT2I cmVwIGFuZCBDZWxsIEJsb2 Myx0tylXCtHDcfPnaftEYe epC1ZWeSVVQNDMgWLgJeUG 8uDIgHV7ICBrJ5FFU8CRx0 yXR1RB70JMOfGXXikZXiYF pwX751BUKxALqbSZe9sdCr XGZzMjIgIHByZXBhcmVkIF rdhh18WHV9k0nzqQOcGDoh WcxdqFLxlpQ7ALwBVNLRJY aWWkYjTJ0wCPdYH6KFDUpE LdenOIL8LJH0Nvl8oWpkFi fxfrAcyYBdDyDVsS4gvqPq SKNvh0HrF4Tvm6lorLEpOZ omKfszfTSqmnE8PKxMJLVE OAkIHtQcKU9cGIkWFRRFQW yAMky7zXluSoahmwZaiUWd YfJQdW90e2mgxRHhBUmsAy qteAIwmcJ4YFrWTBQMJKrQ VhDaQO1sLYnHNGPGNhL9Q1 84SBNtJOZmiGQzGTndD737 ELZiTTzyOWt5vqHrKFZml3 DiK6RuCsXfVvIve35bPDZx MegqDgbczYG6JWlqPdodmQ 5zdCBIWVBFUkxJTksgbmFt KP4IZCTCQH9JyCA0ETxwSO j0mIN3p9dcdEJps7o5DQdm VWD7qYhudWSpnflpcKTwqE xmczIyXHBhciANClxwYXIg PGdYFgwuaAAjnkMwCEn1GJ AgmGVfCD9OTZVuBkNjWNUt T1vjWXPwQO8TRRZjG12HQl LNVPAKU78HYMBAMLMGS1WX M6yHJVI5BKjjDTizETHdBE LlYkE6sXZ0ATVzBCYwYcJ0 qQC6UN6pHTS8JuF9KR7wCq C4END9J1g8TNQpVPBsVLC5 nXK5WTa6CgULZAZQXTxQJ6 EuKYGXTAHZMEXfJG5NUMhF IDSQRKWQG40IZQGHRSWVB1 JDK5kODTsnysyWKXaPN4CW JF5MKCOXEMEEGT4THoWcSX iVF0HII2pWHFHkTMUJNYBE BPNeTfFFOW8nASi1B1dQFi iLYDzeUYM6QPIavYQcm2ZW AD3NDfL1LFgdGBr8J5k6TH DJXVDEFAu4JAJpJxU3SK58 MInAZUUTXGCBXAU7TDBaHg NrFP28RLjJJCHFHVJHW0cJ JkH1YGR6B7a3Vdk1L04QBL MXOPABZ2RCHwIOPyA6UPfs XKi9QYQWIHNKXV3JLWRMT6 4CEAIRVKBMO7NYNUDLXhRO CZZBT33TUWCMVFHDI1SFX5 bOGDYWKfHXDCKEV63IGKXL LPEPT0AFOZRFRYWBPmLYPu MBNV5JECCVFERCAG7BDWsE FdTuXPQBK4SQFoMZV4euPR QDGRBUWUFwQS6HQUlfecCd NOZtA04zw6DTf3Net2mphK hqh1OhqROhHF24ZMHrnBSf GHO5YI3opEufIEWzTMpibL QwJPBFKkd5JAEFIs4= [facility] Work Phone: Performing Lab m7nxwWSxPQQkr4tsHHNb bG FuZzEwMzNcZnRuYmpcdWMx IHtccnRmMVxhbnNpXGRlZm otvhoaNSGtYZX4xxDzOPJo CGB6NSW7YiDva1R7ESRqLn KaDRFsJS6jcHytFLVhFJ7b ZTGvC2yzsV8mqvr5LiRlMH WzKtA7BIRqruF3Eal4SLOc KXadz1swd9OgKQRcMUv3uH cnBpYnRBAdw7ymbaXrZkUj YFSwUOHlGVNirQWwC438y2 sqs7ioltSkiEP4LHMwVHQ5 KQiigcBwfhA2IVfolTUwRm N1BGhnnoLcSYepqnTcwdNw Rsc0SATnV386QOQ3dUhwg2 juUYE2TFXiIOVyZbZrQl0j aVAyJ050AFUpOYVEVXCiqH i7CRMltbIxlkOqnSHXj610 N761r1vwZZWzkbGutVtBxx lff7suY067WHMttCYwbaJc AmZiFMAntXNejDO8JIHtDT 2yvdtuVWysAMcfKNAwqbT1 DYFwxFUiW4NsMPPfGE4vyh yyJWL6JCjdERUyBRH1NcZn WZJsq3Hndve7XaHvqk5rcg 28XJZ7z6MkyAefBTO9VTX4 UqVvWg0ugQBlSNQhWD4cRi PdnKKnOBFhgz00mTugVWkz scJofU7iAkLbZGHpgJMfAC MlXU9foCKjATBfeF8aozfb XHBnYnJkcmhlYWRccGdicm KdPt8dpCerGOV7SQucJ1jc tP3tBzT0DIhjI4mcwZ1yFQ l9BVwcbZH7GECbmD9lXK1d jvwuy2qgPQnlRMwcZQLqxr S3ksE4BOZclRXtA2QfdR9q ASVdIX9ugebqa5ffMSC1NS bzALKuFPX6FxPuXRFyi0Zn xyf5ZcIni6RnwQEzGJpnW9 8pr292GXHjvsAiC0fzsRGs vydypLXorvkiKJqsnbT7OE FsXHBsYWluXGYxXGZzMjJc bGFuZzEwMzNcaGljaFxmMV yrJvPwVSPeVEjwU3foDdMu ZnMyMiBUZWNobmljYWwgY2 8ntQ3mJG20AALieDMzrSGh vJ9qnX3mdCK6WZVbhkPimb rdSmEhXAVef0DeZKQpLPVl C9xrejHpLI5hUPZwlR4jFq wgOTUwMCBFdWNsaWQgQXZl GLAQuJA1BSalmoSeW0uiDJ QxOTUgICBDTElBIyAzNkQw WmC4OPh7DBFxad20u3jblN YxXHNzdGVjZjIyMDAwXGFu o4gcWKQoxNObCgBvDnNgQq TbPrytzURyWWRyTnXgz3mm d171mDVmh9vzOLLzSpE7bI BzOLQduUHiX949HRTnRYny n8fzl9YjARGvwUPzp3L7XN OFizvlfQm1dKwcX72gh6Y8 FvnmI6cvKYAkAONhN4EfQF 4sNLZjGgh3QPI4OYV0OJJp ZNFlO4JaJE8pWFLgdUBpXH a0m6mnxKblCGEnBLS9c3vf QUspvcOoMP8evl3sbSb1g5 xjczEgRGVmYXVsdCBQYXJh Z4WuyHozYe1srTv0bRqmIn abKJS5Pwa6VF2wdu34wkk5 tBsuKRHlhxzxSaX0AVwiXP TxxowqVXl7OBtlCFVaoRT0 EMUoqVNxQ1AbSYqpSN9rhi i7CKG0YTleAVNyVvH2YFOp nUCbLSYxwCupUTcek070RJ K0PaUbGQ5yY0Nbl3F3lN9y aXRcZGVmdGFiNzIwXGZvcm 5jlXUvYFuop0JvMAU3qhL2 bVEzlXTyRXKyJX55Itbxm9 JxWdefd2SjS13zrTB5MDpq k2bvZG5eJnQ1ouIrSGsdl5 uunO1oGcO1GUjfRQ9oNZ4u DYJxzR5rcmvzUAXqQtDobk ezOWEzwFwszoZtYi4boJxw GCB2HEsuW4pinZ1pBqK7BQ xxK2eslV7tGEk8BXnyrDF5 IGTojV8cDU7dhlonj3ybUJ jmOJfvZTXtkhA6thRzEOMr uPReJ2HtsC6aWGZpAO8ayq luy0xwXEH5LSgdJCGjGBE2 FrOyDITds1Pplbm3VlNts1 NkbQAeOKjaS18ri260WPIx hlQoY6mtsRIwmchnyUKlam mvERsrzuJ0ATPvDJJgMWpr XGYxXGZzMjBcbGFuZzEwMz NcaGljaFxmMVxkYmNoXGYx SUlrS7dgEfLrZlFsNPTJfP Syzz3fsBjfLGunjBVzsESe gHS3lR7gXVDvzgZzey4mIQ AxkEAIaYK8HLpbybUtJ7jb kyrnPQH3LDJmDLA5S1jhOF BBdmUsIENsZXZlbGFuZCBP BWK3XUH9CHHjVQUDSYCwKK X5EAA1LOOxWSLthDQzVCVs clxwYXJkXHBsYWluXGYwXG AgZxNpvObmcY1bThWuVhXw NXsaJF2lVQHrV4xslWVoHU HjTKUvI4rwNvWptN8zpNlo MVxjZjJcZnMyMFxsdHJjaC PYUVIbivP4d6S0OLccvPGw blxmMVxmczIwXGxhbmcxMD UuDGobI4otRpJsFVGjiKtf KHcsf1OcTUBcSKRkYgObHP gxLPS7n1Z1SPrrzFYoqcGP MuPNWZ7mgCSmgsqsCD3DAi xwbGFpblxmMVxmczIyXGxh bqssRPTfLKxeQ5vfZrPlES TbrMouOKonu5BgLBYrTVLq MjJccGFyfX0= [facility] Work Phone: [facility] Work Phone: THYROID BIOPSY LEFT (POC) SURG USE ONLYon 11-05-2024 [facility] Inital Evaluation (1) - PTon 10-15-2024 Inital Evaluation (1) - PT Normal [facility] GLUCOSE, BLOOD (POC)on 09-25 Glucose [Mass/Vol] 87 mg/dL 74 - 99 mg/dL [facility] Comment on above: Location:[facility], [address] [place] [address], [id number] The Accu-Chek Inform II glucose meter has not been approved for testing on patients receiving intensive medical intervention or therapy and results from this point of care glucose test should not be used for patient management decisions in these cases. Inaccurate results may also occur from other interfering factors, such as N-acetylcysteine (blood concentrations of greater than 5mg/dL), galactose, extremes of hematocrit (<10 or >65), or high doses of ascorbic acid (vitamin C) greater than 3mg/dL. Consider alternate testing mechanisms (e.g. core lab, blood gas instrument) in the above situations. [facility] NM PET/CT WHOLE BODY SUBQon 09-25-2024 NM PET/CT WHOLE BODY SUBQ * * *Final Report* * * DATE OF EXAM: Sep 25 2024 9:05AM MDP 0064 - NM PET/CT WHOLE BODY SUBQ / PROCEDURE REASON: C90.00-Multiple myeloma not having achieved remission (HCC) * * * * Physician Interpretation * * * * EXAMINATION: BODY FDG PET-CT CLINICAL HISTORY: Multiple myeloma not having achieved remission. EXAM CATEGORY: Subsequent treatment strategy. TECHNIQUE: Radiopharmaceutical was administered intravenously followed by PET imaging from the skull vertex to feet. Free breathing, low dose CT of the same body region was acquired without IV contrast for attenuation correction and anatomic localization. Unenhanced imaging is limited for the evaluation of some pathology and the acquired CT was not designed to produce diagnostic CT scan quality. Physiologic/non-pathol ogic uptake in some body regions could confound or obscure some pathology. * CT Dose-Length Product (DLP): 735 mGy*cm * CT Dose Reduction Employed: Yes * Blood glucose: 87 mg/dL * Injection site: Right Forearm-Antecubital * Injected activity: 18.4 mCi * Uptake Time: 50 minutes * Radiopharmaceutical: N54-Nqmmvsylgjjthrhbdc (FDG) COMPARISON: OSH FDG PET/CT 11/11/2020 CORRELATION: MRI pelvis 09/03/2024 RESULT: REFERENCES: FDG uptake is used as a surrogate marker for glucose metabolism. All reported standardized uptake values represent maximum SUV (SUVmax) per body weight, unless otherwise specified. SUV reference values, as follows: * Blood Pool (Descending Aorta): SUVmax 2.9 * Background Liver: SUVmax 3.8; SUVmean 2.7 Localizer Images: No additional findings. HEAD AND NECK: Head: No radiotracer avid lesion or mass effect in the imaged intracranial compartment. Aerodigestive Tract: No radiotracer avid lesion. Lymph Nodes: No radiotracer avid lymphadenopathy. Neck Soft Tissues: Focal uptake localizing to the superior aspect of a 1.9 x 1.6 cm left thyroid lobe nodule measures SUV max 3.0 (3:109). CHEST: Lungs and Pleura: No radiotracer avid mass, nodule, or consolidation. No pleural effusion. Lymph Nodes: No radiotracer avid lymphadenopathy. Mediastinum: No radiotracer avid mass. Cardiovascular: Blood pool activity. No pericardial effusion. Normal heart size. Chest Wall: No radiotracer avid soft tissue lesion. ABDOMEN AND PELVIS: Hepatobiliary: No radiotracer avid lesion. No measurable mass. Spleen: No radiotracer avid lesion. No splenomegaly. Pancreas: No radiotracer avid lesion. Adrenals: No radiotracer avid nodule. Urinary Tract: Physiologic radiotracer excretion in the renal collecting systems and urinary bladder. No hydronephrosis. GI Tract: No radiotracer avid lesion. No bowel dilation. Peritoneum: No radiotracer avid lesion. No ascites. Lymph Nodes: No radiotracer avid lymphadenopathy. Vasculature: Blood pool activity. Pelvic Organs: No radiotracer avid lesion. Bilateral adnexal clips. MUSCULOSKELETAL: Bones: No radiotracer avid lesion. Diffuse osteopenia, multilevel vertebral body compression deformities and L5 vertebroplasty. Soft Tissues: No radiotracer avid lesion. Areas of likely physiologic musculature uptake. IMPRESSION: OSSEOUS DISEASE: * No metabolically active osseous lesion. EXTRAOSSEOUS DISEASE: * No metabolically active extraosseous disease. ADDITIONAL FINDINGS: * Left thyroid lobe nodule with focal uptake along its superior aspect. Further characterization with thyroid ultrasound recommended. * Other, chronic findings detailed in the body of the report. Franchise Consultant: PSCB Transcribe Date/Time: Sep 27 2024 11:41A Dictated by : AUTUMN HERNANDES MD This examination was interpreted and the report reviewed and electronically signed by: AUTUMN HERNANDES MD on Sep 27 2024 12:02PM EST [id number] Normal [facility] KYLE BY IFA SCREEN [CCL]on Nuclear Ab IF (S) [Titer] Negative Normal Negative [facility] Comment on above: Result Comment: Anti -nuclear antibody test is used as an aid in diagnosis of systemic autoimmune diseases. Where positive and clinically warranted, follow-up using disease-specific testing is recommended. Low positive titers are not uncommon with advanced age, certain chronic infections, and malignancies among others. Test methodology: Indirect fluorescence immunoassay (IFA) using HEp-2 cells. [facility] [email or web address] [address] Chalino Garvey III, M.D. [id number] Performed By: #### 2 03314 #### [address] [address] CYCLIC CITRULLINATED PEP AB IGG [CCL]on 09-21-2024 CCP ANTIBODY IGGQUALITATIVE Negative Normal Negative [facility] Comment on above: Performed By: #### 2 99149 #### [address] [address] CCP Antibody, IgG <15 Normal <20 [facility] Comment on above: Result Comment: This test is used as aid in diagnosis of Rheumatoid arthritis (RA). A negative result cannot rule out RA where clinically suspected. Clinical correlation is required. The following results were obtained with an [employer] QUANTA Lite CCP IgG ROSAMARIA. Cyclic Citrullinated Peptide IgG values obtained with different manufacturers' assay methods may not be used interchangeably. The magnitude of the reported IgG levels cannot be correlated to an endpoint titer. [facility] [place] [address] Chalino Garvey III, M.D. [id number] Performed By: #### 2 00447 #### [facility],[address] [place] [address] RHEUMATOID FACTOR [CCL]on Rheumatoid Factor <10 Normal <16 [facility] Comment on above: Result Comment: [facility] [address] [place] [address] Chalino Garvey III, M.D. [id number] Performed By: #### 2 23335 #### [facility],[address] [place] [address] C-REACTIVE PROTEINon 024 CRP 0.65 mg/dl Normal 0.00 - 0.90 [facility] Comment on above: Performed By: #### 2 08407 #### [facility],[address] [place] [address] CBC + DIFFon 09-20-2024 Baso # 0.03 x10EE3/UL Normal 0.00 - 0.10 [facility] Comment on above: Performed By: #### 2 70663 #### [facility],[address] [place] [address] Basophils/100 WBC (Bld) 0.5 % Normal 0.0 - 2.0 [facility] Comment on above: Performed By: #### 2 96710 #### [facility],[address] [place] [address] CBC + DIFF Normal [facility] Comment on above: Result Comment: CBC- COMPLETE BLOOD COUNT Performed By: #### 2 83188 #### [facility],[address] [place] [address] EO # 0.17 x10EE3/UL Normal 0.00 - 0.50 [facility] Comment on above: Performed By: #### 2 80508 #### [facility],[address] [place] [address] Eosinophils/100 WBC (Bld) 2.3 % Normal 0.0 - 7.0 [facility] Comment on above: Performed By: #### 2 54690 #### [facility],[address] [place] [address] Erythrocyte distribution width (RBC) [Ratio] 13.2 % Normal 12.0 - 15.6 [facility] Comment on above: Performed By: #### 2 68383 #### [facility],[address] [place] [address] Hematocrit (Bld) [Volume fraction] 39.4 % Normal 34.0 - 46.0 [facility] Comment on above: Performed By: #### 2 59082 #### [facility],[address] [place] [address] Hemoglobin (Bld) [Mass/Vol] 13.5 g/dL Normal 12.0 - 16.0 [facility] Comment on above: Performed By: #### 2 40475 #### [facility],[address] [place] [address] Lymph # 1.33 x10EE3/UL Normal 0.80 - 2.80 [facility] Comment on above: Performed By: #### 2 30301 #### [facility],[address] [place], [place] [id number] Lymphocytes/100 WBC (Bld) 18.2 % Low 20.0 - 45.0 [facility] Comment on above: Performed By: #### 2 92990 #### [facility],[address] [place], [place] [phone] MANUAL DIFF N/A Normal [facility] Comment on above: Performed By: #### 2 32941 #### [facility],[address] [place], [place] [id number] MCH (RBC) [Entitic mass] 31 pg Normal 27 - 33 [facility] Comment on above: Performed By: #### 2 71261 #### [facility],[address] [place] [address] MCHC 34 X10 3 Normal 32 - 36 [facility] Comment on above: Performed By: #### 2 57691 #### [facility],[address] [place] [address] MCV (RBC) [Entitic vol] 90 fL Normal 80 - 99 [facility] Comment on above: Performed By: #### 2 02130 #### [facility],[address] [place] [address] [place] # 0.57 x10EE3/UL Normal 0.20 - 1.00 [facility] Comment on above: Performed By: #### 2 23366 #### [facility],[address] [place] [address] MONOS % 7.8 % Normal 0.0 - 10.0 [facility] Comment on above: Performed By: #### 2 05245 #### [facility],[address] [place], [place] [phone] Morphology Tobi (Bld) [Interp] N/A Normal [facility] Comment on above: Performed By: #### 2 58962 #### [facility],[address] [place] [address] Neut # 5.22 x10EE3/UL Normal 1.50 - 7.10 [facility] Comment on above: Performed By: #### 2 31356 #### [facility],[address] [place], [place] [id number] Neutrophils/100 WBC (Bld) 71.2 % Normal 46.0 - 76.0 [facility] Comment on above: Performed By: #### 2 63363 #### [place] [id number] PLATELET 229 x10EE3/UL Normal 150 - 450 [facility] Comment on above: Performed By: #### 2 90392 #### [facility],[address] [place] [address] Platelet mean volume (Bld) [Entitic vol] 8.1 fL Normal 6.6 - 10.5 [facility] Comment on above: Result Comment: AUTO MATED DIFFERENTIAL Performed By: #### 2 58294 #### [facility],[address] [place] [address] RBC 4.36 x 10EE6/UL Normal 4.10 - 5.30 [facility] Comment on above: Performed By: #### 2 73101 #### [facility],[address] [place] [address] WBC 7.3 x 10EE3/UL Normal 4.5 - 10.8 [facility] Comment on above: Performed By: #### 2 03956 #### [facility],[address] [place] [address] CMP with eGFRon 09-20-2024 AGE 59 years Normal [facility] Comment on above: Performed By: #### 2 36162 #### [facility],[address] [place] [address]365 Albumin [Mass/Vol] 3.7 g/dL Normal 3.4 - 5.0 [facility] Comment on above: Performed By: #### 2 46675 #### [facility],[address] [place] [address]282 Albumin/Globulin [Mass ratio] 1.1 {ratio} Normal 0.9 - 1.6 [facility] Comment on above: Performed By: #### 2 83918 #### [facility],[address] [place] [address]98 ALK PHOS 76 U/L Normal 46 - 116 [facility] Comment on above: Performed By: #### 2 81756 #### [facility],[address] [place] [address] 16461 ALT [Catalytic activity/Vol] 27 U/L Normal 16 - 63 [facility] Comment on above: Performed By: #### 2 79189 #### [facility],[address] [place] [address] Anion gap [Moles/Vol] 10 mmol/L Normal 10 - 20 [facility] Comment on above: Performed By: #### 2 24561 #### [facility],[address] [place] [address]2852 AST [Catalytic activity/Vol] 26 U/L Normal 13 - 39 [facility] Comment on above: Performed By: #### 2 68434 #### [facility],[address] [place] [address] B/C RATIO 16 ratio Normal 0 - 30 [facility] Comment on above: Performed By: #### 2 42498 #### [facility],[address] [place] [address]666 Bilirubin [Mass/Vol] 0.3 mg/dL Normal 0.2 - 1.0 [facility] Comment on above: Performed By: #### 2 86251 #### [facility],[address] [place] [address] Calcium [Mass/Vol] 9.5 mg/dL Normal 8.5 - 10.1 [facility] Comment on above: Performed By: #### 2 13487 #### [facility],[address] [place] [address]955 Chloride [Moles/Vol] 103 mmol/L Normal 98 - 107 [facility] Comment on above: Performed By: #### 2 55355 #### [facility],[address] [place] [address] 78292 CMP with eGFR Normal [facility] Comment on above: Result Comment: COMP REHENSIVE METABOLIC PANEL Performed By: #### 2 08078 #### [facility],[address] [place] [address]4875 CO2 [Moles/Vol] 31.7 mmol/L Normal 21.0 - 32.0 [facility] Comment on above: Performed By: #### 2 32350 #### [facility],[address] [place] [address] Creatinine [Mass/Vol] 1.22 mg/dL High 0.55 - 1.02 [facility] Comment on above: Performed By: #### 2 47423 #### [facility],[address] [place] [address] 73799 eGFR 45 ML/MINUTE Low 60 - 999 [facility] Comment on above: Performed By: #### 2 05457 #### [facility],[address] [place] [address]6528 eGFR(AA) 54 ML/MINUTE Low 60 - 999 [facility] Comment on above: Result Comment: ACCO RDING TO THE NATIONAL KIDNEY DISEASE EDUCATION PROGRAM(NKDE), A NORMAL eGFR IS A VALUE GREATER THAN OR EQUAL TO 60 ML/MIN/1.73 SQ METERS. CHRONIC KIDNEY DISEASE: <60mL/MIN/1.73 SQ METERS KIDNEY FAILURE: <15mL/MIN/1.73 SQ METERS THIS TEST SHOULD ONLY BE USED FOR PATIENTS 18 YEARS OF AGE AND OLDER. Performed By: #### 2 21205 #### [facility],[address] [place] [address]9574 Globulin (S) [Mass/Vol] 3.5 g/dL Normal 1.5 - 3.8 [facility] Comment on above: Performed By: #### 2 37276 #### [facility],[address] [place] [address] 13658 Glucose [Mass/Vol] 95 mg/dL Normal 74 - 106 [facility] Comment on above: Performed By: #### 2 01849 #### [facility],[address] [place] [address] 80583 Potassium [Moles/Vol] 4.2 mmol/L Normal 3.5 - 5.1 [facility] Comment on above: Performed By: #### 2 44557 #### [facility],[address] [place] [address] 51686 Protein [Mass/Vol] 7.2 g/dL Normal 6.4 - 8.2 [facility] Comment on above: Performed By: #### 2 25813 #### [facility],[address] [place], [place] [address] Sodium [Moles/Vol] 140 mmol/L Normal 136 - 145 [facility] Comment on above: Performed By: #### 2 01198 #### [facility],[address] [place] [address] Urea nitrogen [Mass/Vol] 20 mg/dL High 7 - 18 [facility] Comment on above: Performed By: #### 2 57359 #### [facility],[address] [place] [address] SEDRATEon 09-20-2024 SEDRATE 30 mm/hr Normal 0 - 30 [facility] Comment on above: Performed By: #### 2 99019 #### [facility],[address] [place] [address] MR Brain WO and W contrast I Von 09-03-2024 * * *Final Report* * * DATE OF EXAM: Sep 03 2024 12:00PM 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 New headaches that wake her in the night. (accession [id number]), Spine fracture, cervical, pathological, Restaging multiple myeloma (accession [id number]), Restaging multiple myeloma (accession [id number]), Restaging multiple myeloma (accession [id number]) - [id number], [id number], [id number], [id number] - - HX MULTIPLE MYELOMA; INCREASED BACK PAIN - - TECHNIQUE: MRI brain and cervical, thoracic and lumbar spine routine protocols without and with contrast. M: [id number] MQ: [id number] MR Contrast: Dotarem Contrast Dose: 20 cc Route of Administration: IV COMPARISON: CT thoracic spine 02/20/2021, cervical and lumbar spine MRI 02/20/2021 RESULT: BRAIN: Acute Change: No evidence of an acute intracranial process. Hemorrhage: No evidence of prior parenchymal hemorrhage on the susceptibility weighted sequences. Mass Lesion/ Mass Effect: Small enhancing extra-axial lesion along the left anterior falx measuring 7 x 5 mm reflecting edema. No significant mass effect on the underlying brain parenchyma Chronic Change: The white matter is within normal limits of signal intensity for age. Parenchyma: No significant parenchymal volume loss for age. Ventricles: Normal caliber and morphology. Skull Base: Hypothalamic and pituitary region are grossly normal. Craniocervical junction is normal. No significant marrow replacement process. Vasculature: Major intracranial arterial structures and dural venous sinuses demonstrate typical flow voids, suggesting patency by spin echo criteria. Other: Mucosal thickening in the right anterior ethmoid air cells. The paranasal sinuses and mastoid air cells are otherwise clear. The orbits and extracranial soft tissues are unremarkable. CERVICAL SPINE: Counting reference: Craniocervical junction. Anatomic Variants: None. Alignment: Alignment is anatomic. Craniocervical junction: Craniocervical junction is normal. Cord: The cervical spinal cord is within normal limits of signal intensity and morphology. No evidence of abnormal intradural enhancement following contrast administration. Bone marrow signal/fracture: No evidence of confluent abnormal marrow replacement or an acute fracture. Cervical soft tissues: The cervical prevertebral and paraspinal soft tissues are within normal limits. Stable 20 mm left thyroid nodule. Mild multilevel spondylosis with mild to moderate canal stenosis at C6-C7 and mild at C4-C5 and C5-C6. Varying degrees of foraminal stenosis secondary to facet and uncovertebral joint degenerative changes including moderate left at C3-C4, moderate on the left at C4-C5, moderate to severe left and moderate right at C5-bilateral at C6-7. THORACIC SPINE: Counting reference: Lumbosacral junction. For the purposes of this report, L4-5 is considered the level of the iliac crest and there are 5 lumbar-type vertebrae. Anatomic Variants: None. Alignment: Focal kyphosis from T8 to T11 where there are multiple severe compression fractures. Cord: The thoracic spinal cord is within normal limits of signal intensity and morphology. No evidence of abnormal intradural enhancement following contrast administration. Bone marrow signal/fracture: Heterogeneous marrow signal compatible with known myeloma involvement. There are again multiple compression fractures including T6, T7, T8, T9, T10, T11 and T12. Severe height loss from T8 to T11 with anterior wedging and focal kyphotic deformity. Soft tissues: The thoracic paraspinal soft tissues are within normal limits. Canal and foramina: Mild canal stenosis at T10-T11 and T11-T12 secondary to disc bulging and minimal retropulsion of pathologic compression fractures. Otherwise no high-grade canal stenosis. Mild bilateral foraminal stenosis at T11-T12. LUMBAR SPINE: Counting reference: Lumbosacral junction. For the purposes of this report, L4-5 is considered the level of the iliac crest and there are 5 lumbar-type vertebrae. Anatomic Vari (more content not included)... DIVISION OF RADIOLOGY Provider, [facility] - 09/03/2024 * * *Final Report* * * DATE OF EXAM: Sep 03 2024 12:00PM 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 New headaches that wake her in the night. (accession [id number]), Spine fracture, cervical, pathological, Restaging multiple myeloma (accession [id number]), Restaging multiple myeloma (accession [id number]), Restaging multiple myeloma (accession [id number]) - [id number], [id number], [id number], [id number] - - HX MULTIPLE MYELOMA; INCREASED BACK PAIN - - TECHNIQUE: MRI brain and cervical, thoracic and lumbar spine routine protocols without and with contrast. M: [email or web address] MQ: [email or web address] MR Contrast: Dotarem Contrast Dose: 20 cc Route of Administration: IV COMPARISON: CT thoracic spine 02/20/2021, cervical and lumbar spine MRI 02/20/2021 RESULT: BRAIN: Acute Change: No evidence of an acute intracranial process. Hemorrhage: No evidence of prior parenchymal hemorrhage on the susceptibility weighted sequences. Mass Lesion/ Mass Effect: Small enhancing extra-axial lesion along the left anterior falx measuring 7 x 5 mm reflecting edema. No significant mass effect on the underlying brain parenchyma Chronic Change: The white matter is within normal limits of signal intensity for age. Parenchyma: No significant parenchymal volume loss for age. Ventricles: Normal caliber and morphology. Skull Base: Hypothalamic and pituitary region are grossly normal. Craniocervical junction is normal. No significant marrow replacement process. Vasculature: Major intracranial arterial structures and dural venous sinuses demonstrate typical flow voids, suggesting patency by spin echo criteria. Other: Mucosal thickening in the right anterior ethmoid air cells. The paranasal sinuses and mastoid air cells are otherwise clear. The orbits and extracranial soft tissues are unremarkable. CERVICAL SPINE: Counting reference: Craniocervical junction. Anatomic Variants: None. Alignment: Alignment is anatomic. Craniocervical junction: Craniocervical junction is normal. Cord: The cervical spinal cord is within normal limits of signal intensity and morphology. No evidence of abnormal intradural enhancement following contrast administration. Bone marrow signal/fracture: No evidence of confluent abnormal marrow replacement or an acute fracture. Cervical soft tissues: The cervical prevertebral and paraspinal soft tissues are within normal limits. Stable 20 mm left thyroid nodule. Mild multilevel spondylosis with mild to moderate canal stenosis at C6-C7 and mild at C4-C5 and C5-C6. Varying degrees of foraminal stenosis secondary to facet and uncovertebral joint degenerative changes including moderate left at C3-C4, moderate on the left at C4-C5, moderate to severe left and moderate right at C5-bilateral at C6-7. THORACIC SPINE: Counting reference: Lumbosacral junction. For the purposes of this report, L4-5 is considered the level of the iliac crest and there are 5 lumbar-type vertebrae. Anatomic Variants: None. Alignment: Focal kyphosis from T8 to T11 where there are multiple severe compression fractures. Cord: The thoracic spinal cord is within normal limits of signal intensity and morphology. No evidence of abnormal intradural enhancement following contrast administration. Bone marrow signal/fracture: Heterogeneous marrow signal compatible with known myeloma involvement. There are again multiple compression fractures including T6, T7, T8, T9, T10, T11 and T12. Severe height loss from T8 to T11 with anterior wedging and focal kyphotic deformity. Soft tissues: The thoracic paraspinal soft tissues are within normal limits. Canal and foramina: Mild canal stenosis at T10-T11 and T11-T12 secondary to disc bulging and minimal retropulsion of pathologic compression fractures. Otherwise no high-grade canal stenosis. Mild bilateral foraminal stenosis at T11-T12. LUMBAR SPINE: Counting reference: Lumbosacral junction. For the purposes of this report, L4-5 is considered the level of the iliac crest and there are 5 lumbar-type vert (more content not included)... [facility] MR Cervical spine WO and W c ontrast Deyanira 09-03-2024 * * *Final Report* * * DATE OF EXAM: Sep 03 2024 12:00PM [facility] 0298 - MRI CERVICAL SPINE WO/W IVCON / PROCEDURE REASON: multiple diagnoses * * * * Physician Interpretation * * * * MRI BRAIN WO/W IVCON, MRI CERVICAL SPINE WO/W IVCON, MRI THORACIC SPINE WO/W IVCON, MRI LUMBAR SPINE WO/W IVCON HISTORY: Multiple myeloma not having achieved remission (HCC) 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) Compression fracture of thoracic vertebra, unspecified thoracic vertebral level, sequela New daily persistent headache - - - Primary neoplasm/metastasis/po stop F/U (accession [id number]), Metastases: meningeal & bony (accession [id number]), Metastases: meningeal & bony (accession [id number]), Metastases: meningeal & bony (accession [id number]) - Stroke, follow up, Patient with history of multiple myeloma with extensive bony involvement. New headaches that wake her in the night. (accession [id number]), Spine fracture, cervical, pathological, Restaging multiple myeloma (accession [id number]), Restaging multiple myeloma (accession [id number]), Restaging multiple myeloma (accession [id number]) - [id number], [id number], [id number], [id number] - - HX MULTIPLE MYELOMA; INCREASED BACK PAIN - - TECHNIQUE: MRI brain and cervical, thoracic and lumbar spine routine protocols without and with contrast. M: [email or web address] MQ: [email or web address] MR Contrast: Dotarem Contrast Dose: 20 cc Route of Administration: IV COMPARISON: CT thoracic spine 02/20/2021, cervical and lumbar spine MRI 02/20/2021 RESULT: BRAIN: Acute Change: No evidence of an acute intracranial process. Hemorrhage: No evidence of prior parenchymal hemorrhage on the susceptibility weighted sequences. Mass Lesion/ Mass Effect: Small enhancing extra-axial lesion along the left anterior falx measuring 7 x 5 mm reflecting edema. No significant mass effect on the underlying brain parenchyma Chronic Change: The white matter is within normal limits of signal intensity for age. Parenchyma: No significant parenchymal volume loss for age. Ventricles: Normal caliber and morphology. Skull Base: Hypothalamic and pituitary region are grossly normal. Craniocervical junction is normal. No significant marrow replacement process. Vasculature: Major intracranial arterial structures and dural venous sinuses demonstrate typical flow voids, suggesting patency by spin echo criteria. Other: Mucosal thickening in the right anterior ethmoid air cells. The paranasal sinuses and mastoid air cells are otherwise clear. The orbits and extracranial soft tissues are unremarkable. CERVICAL SPINE: Counting reference: Craniocervical junction. Anatomic Variants: None. Alignment: Alignment is anatomic. Craniocervical junction: Craniocervical junction is normal. Cord: The cervical spinal cord is within normal limits of signal intensity and morphology. No evidence of abnormal intradural enhancement following contrast administration. Bone marrow signal/fracture: No evidence of confluent abnormal marrow replacement or an acute fracture. Cervical soft tissues: The cervical prevertebral and paraspinal soft tissues are within normal limits. Stable 20 mm left thyroid nodule. Mild multilevel spondylosis with mild to moderate canal stenosis at C6-C7 and mild at C4-C5 and C5-C6. Varying degrees of foraminal stenosis secondary to facet and uncovertebral joint degenerative changes including moderate left at C3-C4, moderate on the left at C4-C5, moderate to severe left and moderate right at C5-bilateral at C6-7. THORACIC SPINE: Counting reference: Lumbosacral junction. For the purposes of this report, L4-5 is considered the level of the iliac crest and there are 5 lumbar-type vertebrae. Anatomic Variants: None. Alignment: Focal kyphosis from T8 to T11 where there are multiple severe compression fractures. Cord: The thoracic spinal cord is within normal limits of signal intensity and morphology. No evidence of abnormal intradural enhancement following contrast administration. Bone marrow signal/fracture: Heterogeneous marrow signal compatible with known myeloma involvement. There are again multiple compression fractures including T6, T7, T8, T9, T10, T11 and T12. Severe height loss from T8 to T11 with anterior wedging and focal kyphotic deformity. Soft tissues: The thoracic paraspinal soft tissues are within normal limits. Canal and foramina: Mild canal stenosis at T10-T11 and T11-T12 secondary to disc bulging and minimal retropulsion of pathologic compression fractures. Otherwise no high-grade canal stenosis. Mild bilateral foraminal stenosis at T11-T12. LUMBAR SPINE: Counting reference: Lumbosacral junction. For the purposes of this report, L4-5 is considered the level of the iliac crest and there are 5 lumbar-type vertebrae. Shaye (more content not included)... DIVISION OF RADIOLOGY Provider, [facility] - 09/03/2024 * * *Final Report* * * DATE OF EXAM: Sep 03 2024 12:00PM 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 New headaches that wake her in the night. (accession [id number]), Spine fracture, cervical, pathological, Restaging multiple myeloma (accession [id number]), Restaging multiple myeloma (accession [id number]), Restaging multiple myeloma (accession [id number]) - [id number], [id number], [id number], [id number] - - HX MULTIPLE MYELOMA; INCREASED BACK PAIN - - TECHNIQUE: MRI brain and cervical, thoracic and lumbar spine routine protocols without and with contrast. M: [email or web address] MQ: [email or web address] MR Contrast: Dotarem Contrast Dose: 20 cc Route of Administration: IV COMPARISON: CT thoracic spine 02/20/2021, cervical and lumbar spine MRI 02/20/2021 RESULT: BRAIN: Acute Change: No evidence of an acute intracranial process. Hemorrhage: No evidence of prior parenchymal hemorrhage on the susceptibility weighted sequences. Mass Lesion/ Mass Effect: Small enhancing extra-axial lesion along the left anterior falx measuring 7 x 5 mm reflecting edema. No significant mass effect on the underlying brain parenchyma Chronic Change: The white matter is within normal limits of signal intensity for age. Parenchyma: No significant parenchymal volume loss for age. Ventricles: Normal caliber and morphology. Skull Base: Hypothalamic and pituitary region are grossly normal. Craniocervical junction is normal. No significant marrow replacement process. Vasculature: Major intracranial arterial structures and dural venous sinuses demonstrate typical flow voids, suggesting patency by spin echo criteria. Other: Mucosal thickening in the right anterior ethmoid air cells. The paranasal sinuses and mastoid air cells are otherwise clear. The orbits and extracranial soft tissues are unremarkable. CERVICAL SPINE: Counting reference: Craniocervical junction. Anatomic Variants: None. Alignment: Alignment is anatomic. Craniocervical junction: Craniocervical junction is normal. Cord: The cervical spinal cord is within normal limits of signal intensity and morphology. No evidence of abnormal intradural enhancement following contrast administration. Bone marrow signal/fracture: No evidence of confluent abnormal marrow replacement or an acute fracture. Cervical soft tissues: The cervical prevertebral and paraspinal soft tissues are within normal limits. Stable 20 mm left thyroid nodule. Mild multilevel spondylosis with mild to moderate canal stenosis at C6-C7 and mild at C4-C5 and C5-C6. Varying degrees of foraminal stenosis secondary to facet and uncovertebral joint degenerative changes including moderate left at C3-C4, moderate on the left at C4-C5, moderate to severe left and moderate right at C5-bilateral at C6-7. THORACIC SPINE: Counting reference: Lumbosacral junction. For the purposes of this report, L4-5 is considered the level of the iliac crest and there are 5 lumbar-type vertebrae. Anatomic Variants: None. Alignment: Focal kyphosis from T8 to T11 where there are multiple severe compression fractures. Cord: The thoracic spinal cord is within normal limits of signal intensity and morphology. No evidence of abnormal intradural enhancement following contrast administration. Bone marrow signal/fracture: Heterogeneous marrow signal compatible with known myeloma involvement. There are again multiple compression fractures including T6, T7, T8, T9, T10, T11 and T12. Severe height loss from T8 to T11 with anterior wedging and focal kyphotic deformity. Soft tissues: The thoracic paraspinal soft tissues are within normal limits. Canal and foramina: Mild canal stenosis at T10-T11 and T11-T12 secondary to disc bulging and minimal retropulsion of pathologic compression fractures. Otherwise no high-grade canal stenosis. Mild bilateral foraminal stenosis at T11-T12. LUMBAR SPINE: Counting reference: Lumbosacral junction. For the purposes of this report, L4-5 is considered the level of the iliac crest and there are 5 lumbar- (more content not included)... 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 New headaches that wake her in the night. (accession [id number]), Spine fracture, cervical, pathological, Restaging multiple myeloma (accession [id number]), Restaging multiple myeloma (accession [id number]), Restaging multiple myeloma (accession [id number]) - [id number], [id number], [id number], [id number] - - HX MULTIPLE MYELOMA; INCREASED BACK PAIN - - TECHNIQUE: MRI brain and cervical, thoracic and lumbar spine routine protocols without and with contrast. M: [email or web address] MQ: [email or web address] MR Contrast: Dotarem Contrast Dose: 20 cc Route of Administration: IV COMPARISON: CT thoracic spine 02/20/2021, cervical and lumbar spine MRI 02/20/2021 RESULT: BRAIN: Acute Change: No evidence of an acute intracranial process. Hemorrhage: No evidence of prior parenchymal hemorrhage on the susceptibility weighted sequences. Mass Lesion/ Mass Effect: Small enhancing extra-axial lesion along the left anterior falx measuring 7 x 5 mm reflecting edema. No significant mass effect on the underlying brain parenchyma Chronic Change: The white matter is within normal limits of signal intensity for age. Parenchyma: No significant parenchymal volume loss for age. Ventricles: Normal caliber and morphology. Skull Base: Hypothalamic and pituitary region are grossly normal. Craniocervical junction is normal. No significant marrow replacement process. Vasculature: Major intracranial arterial structures and dural venous sinuses demonstrate typical flow voids, suggesting patency by spin echo criteria. Other: Mucosal thickening in the right anterior ethmoid air cells. The paranasal sinuses and mastoid air cells are otherwise clear. The orbits and extracranial soft tissues are unremarkable. CERVICAL SPINE: Counting reference: Craniocervical junction. Anatomic Variants: None. Alignment: Alignment is anatomic. Craniocervical junction: Craniocervical junction is normal. Cord: The cervical spinal cord is within normal limits of signal intensity and morphology. No evidence of abnormal intradural enhancement following contrast administration. Bone marrow signal/fracture: No evidence of confluent abnormal marrow replacement or an acute fracture. Cervical soft tissues: The cervical prevertebral and paraspinal soft tissues are within normal limits. Stable 20 mm left thyroid nodule. Mild multilevel spondylosis with mild to moderate canal stenosis at C6-C7 and mild at C4-C5 and C5-C6. Varying degrees of foraminal stenosis secondary to facet and uncovertebral joint degenerative changes including moderate left at C3-C4, moderate on the left at C4-C5, moderate to severe left and moderate right at C5-bilateral at C6-7. THORACIC SPINE: Counting reference: Lumbosacral junction. For the purposes of this report, L4-5 is considered the level of the iliac crest and there are 5 lumbar-type vertebrae. Anatomic Variants: None. Alignment: Focal kyphosis from T8 to T11 where there are multiple severe compression fractures. Cord: The thoracic spinal cord is within normal limits of signal intensity and morphology. No evidence of abnormal intradural enhancement following contrast administration. Bone marrow signal/fracture: Heterogeneous marrow signal compatible with known myeloma involvement. There are again multiple compression fractures including T6, T7, T8, T9, T10, T11 and T12. Severe height loss from T8 to T11 with anterior wedging and focal kyphotic deformity. Soft tissues: The thoracic paraspinal soft tissues are within normal limits. Canal and foramina: Mild canal stenosis at T10-T11 and T11-T12 secondary to disc bulging and minimal retropulsion of pathologic compression fractures. Otherwise no high-grade canal stenosis. Mild bilateral foraminal stenosis at T11-T12. LUMBAR SPINE: Counting reference: Lumbosacral junction. For the purposes of this report, L4-5 is considered the level of the iliac crest and there are 5 lumbar-type vertebrae. Anatom (more content not included)... DIVISION OF RADIOLOGY Provider, [facility] - 09/03/2024 * * *Final Report* * * DATE OF EXAM: Sep 03 2024 12:00PM 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 New headaches that wake her in the night. (accession [id number]), Spine fracture, cervical, pathological, Restaging multiple myeloma (accession [id number]), Restaging multiple myeloma (accession [id number]), Restaging multiple myeloma (accession [id number]) - [id number], [id number], [id number], [id number] - - HX MULTIPLE MYELOMA; INCREASED BACK PAIN - - TECHNIQUE: MRI brain and cervical, thoracic and lumbar spine routine protocols without and with contrast. M: [email or web address] MQ: [email or web address] MR Contrast: Dotarem Contrast Dose: 20 cc Route of Administration: IV COMPARISON: CT thoracic spine 02/20/2021, cervical and lumbar spine MRI 02/20/2021 RESULT: BRAIN: Acute Change: No evidence of an acute intracranial process. Hemorrhage: No evidence of prior parenchymal hemorrhage on the susceptibility weighted sequences. Mass Lesion/ Mass Effect: Small enhancing extra-axial lesion along the left anterior falx measuring 7 x 5 mm reflecting edema. No significant mass effect on the underlying brain parenchyma Chronic Change: The white matter is within normal limits of signal intensity for age. Parenchyma: No significant parenchymal volume loss for age. Ventricles: Normal caliber and morphology. Skull Base: Hypothalamic and pituitary region are grossly normal. Craniocervical junction is normal. No significant marrow replacement process. Vasculature: Major intracranial arterial structures and dural venous sinuses demonstrate typical flow voids, suggesting patency by spin echo criteria. Other: Mucosal thickening in the right anterior ethmoid air cells. The paranasal sinuses and mastoid air cells are otherwise clear. The orbits and extracranial soft tissues are unremarkable. CERVICAL SPINE: Counting reference: Craniocervical junction. Anatomic Variants: None. Alignment: Alignment is anatomic. Craniocervical junction: Craniocervical junction is normal. Cord: The cervical spinal cord is within normal limits of signal intensity and morphology. No evidence of abnormal intradural enhancement following contrast administration. Bone marrow signal/fracture: No evidence of confluent abnormal marrow replacement or an acute fracture. Cervical soft tissues: The cervical prevertebral and paraspinal soft tissues are within normal limits. Stable 20 mm left thyroid nodule. Mild multilevel spondylosis with mild to moderate canal stenosis at C6-C7 and mild at C4-C5 and C5-C6. Varying degrees of foraminal stenosis secondary to facet and uncovertebral joint degenerative changes including moderate left at C3-C4, moderate on the left at C4-C5, moderate to severe left and moderate right at C5-bilateral at C6-7. THORACIC SPINE: Counting reference: Lumbosacral junction. For the purposes of this report, L4-5 is considered the level of the iliac crest and there are 5 lumbar-type vertebrae. Anatomic Variants: None. Alignment: Focal kyphosis from T8 to T11 where there are multiple severe compression fractures. Cord: The thoracic spinal cord is within normal limits of signal intensity and morphology. No evidence of abnormal intradural enhancement following contrast administration. Bone marrow signal/fracture: Heterogeneous marrow signal compatible with known myeloma involvement. There are again multiple compression fractures including T6, T7, T8, T9, T10, T11 and T12. Severe height loss from T8 to T11 with anterior wedging and focal kyphotic deformity. Soft tissues: The thoracic paraspinal soft tissues are within normal limits. Canal and foramina: Mild canal stenosis at T10-T11 and T11-T12 secondary to disc bulging and minimal retropulsion of pathologic compression fractures. Otherwise no high-grade canal stenosis. Mild bilateral foraminal stenosis at T11-T12. LUMBAR SPINE: Counting reference: Lumbosacral junction. For the purposes of this report, L4-5 is considered the level of the iliac crest and there are 5 lumbar-ty (more content not included)... [facility] MR Thoracic spine WO and W rc Mcmillan 09-03-2024 * * *Final Report* * * DATE OF EXAM: Sep 03 2024 12:00PM 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 New headaches that wake her in the night. (accession [id number]), Spine fracture, cervical, pathological, Restaging multiple myeloma (accession [id number]), Restaging multiple myeloma (accession [id number]), Restaging multiple myeloma (accession [id number]) - [id number], [id number], [id number], [id number] - - HX MULTIPLE MYELOMA; INCREASED BACK PAIN - - TECHNIQUE: MRI brain and cervical, thoracic and lumbar spine routine protocols without and with contrast. M: [email or web address] MQ: [id number] MR Contrast: Dotarem Contrast Dose: 20 cc Route of Administration: IV COMPARISON: CT thoracic spine 02/20/2021, cervical and lumbar spine MRI 02/20/2021 RESULT: BRAIN: Acute Change: No evidence of an acute intracranial process. Hemorrhage: No evidence of prior parenchymal hemorrhage on the susceptibility weighted sequences. Mass Lesion/ Mass Effect: Small enhancing extra-axial lesion along the left anterior falx measuring 7 x 5 mm reflecting edema. No significant mass effect on the underlying brain parenchyma Chronic Change: The white matter is within normal limits of signal intensity for age. Parenchyma: No significant parenchymal volume loss for age. Ventricles: Normal caliber and morphology. Skull Base: Hypothalamic and pituitary region are grossly normal. Craniocervical junction is normal. No significant marrow replacement process. Vasculature: Major intracranial arterial structures and dural venous sinuses demonstrate typical flow voids, suggesting patency by spin echo criteria. Other: Mucosal thickening in the right anterior ethmoid air cells. The paranasal sinuses and mastoid air cells are otherwise clear. The orbits and extracranial soft tissues are unremarkable. CERVICAL SPINE: Counting reference: Craniocervical junction. Anatomic Variants: None. Alignment: Alignment is anatomic. Craniocervical junction: Craniocervical junction is normal. Cord: The cervical spinal cord is within normal limits of signal intensity and morphology. No evidence of abnormal intradural enhancement following contrast administration. Bone marrow signal/fracture: No evidence of confluent abnormal marrow replacement or an acute fracture. Cervical soft tissues: The cervical prevertebral and paraspinal soft tissues are within normal limits. Stable 20 mm left thyroid nodule. Mild multilevel spondylosis with mild to moderate canal stenosis at C6-C7 and mild at C4-C5 and C5-C6. Varying degrees of foraminal stenosis secondary to facet and uncovertebral joint degenerative changes including moderate left at C3-C4, moderate on the left at C4-C5, moderate to severe left and moderate right at C5-bilateral at C6-7. THORACIC SPINE: Counting reference: Lumbosacral junction. For the purposes of this report, L4-5 is considered the level of the iliac crest and there are 5 lumbar-type vertebrae. Anatomic Variants: None. Alignment: Focal kyphosis from T8 to T11 where there are multiple severe compression fractures. Cord: The thoracic spinal cord is within normal limits of signal intensity and morphology. No evidence of abnormal intradural enhancement following contrast administration. Bone marrow signal/fracture: Heterogeneous marrow signal compatible with known myeloma involvement. There are again multiple compression fractures including T6, T7, T8, T9, T10, T11 and T12. Severe height loss from T8 to T11 with anterior wedging and focal kyphotic deformity. Soft tissues: The thoracic paraspinal soft tissues are within normal limits. Canal and foramina: Mild canal stenosis at T10-T11 and T11-T12 secondary to disc bulging and minimal retropulsion of pathologic compression fractures. Otherwise no high-grade canal stenosis. Mild bilateral foraminal stenosis at T11-T12. LUMBAR SPINE: Counting reference: Lumbosacral junction. For the purposes of this report, L4-5 is considered the level of the iliac crest and there are 5 lumbar-type vertebrae. Shaye (more content not included)... 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 New headaches that wake her in the night. (accession [id number]), Spine fracture, cervical, pathological, Restaging multiple myeloma (accession [id number]), Restaging multiple myeloma (accession [id number]), Restaging multiple myeloma (accession [id number]) - [id number], [id number], [id number], [id number] - - HX MULTIPLE MYELOMA; INCREASED BACK PAIN - - TECHNIQUE: MRI brain and cervical, thoracic and lumbar spine routine protocols without and with contrast. M: [email or web address] MQ: [email or web address] MR Contrast: Dotarem Contrast Dose: 20 cc Route of Administration: IV COMPARISON: CT thoracic spine 02/20/2021, cervical and lumbar spine MRI 02/20/2021 RESULT: BRAIN: Acute Change: No evidence of an acute intracranial process. Hemorrhage: No evidence of prior parenchymal hemorrhage on the susceptibility weighted sequences. Mass Lesion/ Mass Effect: Small enhancing extra-axial lesion along the left anterior falx measuring 7 x 5 mm reflecting edema. No significant mass effect on the underlying brain parenchyma Chronic Change: The white matter is within normal limits of signal intensity for age. Parenchyma: No significant parenchymal volume loss for age. Ventricles: Normal caliber and morphology. Skull Base: Hypothalamic and pituitary region are grossly normal. Craniocervical junction is normal. No significant marrow replacement process. Vasculature: Major intracranial arterial structures and dural venous sinuses demonstrate typical flow voids, suggesting patency by spin echo criteria. Other: Mucosal thickening in the right anterior ethmoid air cells. The paranasal sinuses and mastoid air cells are otherwise clear. The orbits and extracranial soft tissues are unremarkable. CERVICAL SPINE: Counting reference: Craniocervical junction. Anatomic Variants: None. Alignment: Alignment is anatomic. Craniocervical junction: Craniocervical junction is normal. Cord: The cervical spinal cord is within normal limits of signal intensity and morphology. No evidence of abnormal intradural enhancement following contrast administration. Bone marrow signal/fracture: No evidence of confluent abnormal marrow replacement or an acute fracture. Cervical soft tissues: The cervical prevertebral and paraspinal soft tissues are within normal limits. Stable 20 mm left thyroid nodule. Mild multilevel spondylosis with mild to moderate canal stenosis at C6-C7 and mild at C4-C5 and C5-C6. Varying degrees of foraminal stenosis secondary to facet and uncovertebral joint degenerative changes including moderate left at C3-C4, moderate on the left at C4-C5, moderate to severe left and moderate right at C5-bilateral at C6-7. THORACIC SPINE: Counting reference: Lumbosacral junction. For the purposes of this report, L4-5 is considered the level of the iliac crest and there are 5 lumbar-type vertebrae. Anatomic Variants: None. Alignment: Focal kyphosis from T8 to T11 where there are multiple severe compression fractures. Cord: The thoracic spinal cord is within normal limits of signal intensity and morphology. No evidence of abnormal intradural enhancement following contrast administration. Bone marrow signal/fracture: Heterogeneous marrow signal compatible with known myeloma involvement. There are again multiple compression fractures including T6, T7, T8, T9, T10, T11 and T12. Severe height loss from T8 to T11 with anterior wedging and focal kyphotic deformity. Soft tissues: The thoracic paraspinal soft tissues are within normal limits. Canal and foramina: Mild canal stenosis at T10-T11 and T11-T12 secondary to disc bulging and minimal retropulsion of pathologic compression fractures. Otherwise no high-grade canal stenosis. Mild bilateral foraminal stenosis at T11-T12. LUMBAR SPINE: Counting reference: Lumbosacral junction. For the purposes of this report, L4-5 is considered the level of the iliac crest and there are 5 lumbar- (more content not included)... [facility] Panel Informationon 09-03 IMPRESSION: Small left anterior frontal parafalcine meningioma. Otherwise no acute intracranial abnormality. Heterogeneous marrow signal changes in keeping with known multiple myeloma. Multiple pathologic thoracolumbar compression fractures again present. No new high-grade spinal canal stenosis. Thoracolumbar spondylosis. Up to severe bilateral foraminal stenosis at L5-S1. Mild cervical spondylosis without high-grade canal or foraminal stenosis. No new acute fractures. No pathologic enhancement. Cervical Anatomic Variant: None. Assume 7 cervical vertebrae with counting from the craniocervical junction. Thoracic/Lumbar Anatomic Variant: None. L4-5 is considered the level of the iliac crest and assume there are 5 lumbar-type vertebrae. Franchise Consultant: PSCB Transcribe Date/Time: Sep 03 2024 12:43P Dictated by : SAL HAYNES DO This examination was interpreted and the report reviewed and electronically signed by: SAL HAYNES DO on Sep 03 2024 1:09PM [facility] DIVISION OF RADIOLOGY Radiology Study observation (narrative) [place] No Panel InformationOrdered By: Cc Provider on 09-03-2024 [facility] [place] 07-13-2024 MOODY Telephone (MEPRAD) ALVINO NINA ([id number]) 1965 F Date Time Provider Department 07/13/24 JADON STYLES During your visit today, we recorded the following information about you: Jadon Styles DO 07/13/2024 1:38 PM Signed Please advise her to start taking acyclovir twice daily for shingles prophylaxis while she is on Velcade. DO Felix Aleman Pamela S, LPN 07/13/2024 2:10 PM Signed Spoke with pt. Informed rx was sent to pharmacy , she needs to start medication and take twice daily. Pt. States she no longer uses [facility] pharmacy in [place]. Pharmacy called and instructed to cancel rx. Rx called to [facility], spoke with pharmacist Ursula. Sangeeta S Felix, B[employer]IC Allergies As of Date: 07/13/2024 Noted Allergy Reaction ADHESIVE TAPE (ROSINS) 05/04/2019 2 - Rash PENICILLINS 09/12/2012 4 - Hives Comments: Other reaction(s): Unknown VICODIN (HYDROCODONE-ACETAMINO PHE*09/12/2012 5 - Intolerance LATEX 06/18/2020 2 - Rash Comments: Other reaction(s): rash Date Reviewed: 07/12/2024 Reviewed by: Shannan Stevens RN - Fully Assessed Reason for Visit: Medication Problem [65] Order(s):acyclovir (ZOVIRAX) 400 mg tabletTake 1 tablet by mouth two times a day.Disp: 60 tabletRfl: 5 Prescriptions as of 07/13/2024 - acyclovir (ZOVIRAX) 400 mg tablet Take 1 tablet by mouth two times a day. - busPIRone (BUSPAR) 7.5 mg tablet Take 7.5 mg by mouth two times a day. - COLLAGEN MISC 1 Tablespoonful once daily. - REVLIMID 5 mg capsule TAKE 1 CAPSULE BY MOUTH 1 TIME A DAY FOR 21 DAYS ON AND 7 DAYS OFF - ondansetron (ZOFRAN) 8 mg tablet Take 1 tablet by mouth every 8 hours as needed for nausea/vomiting. - omeprazole (PRILOSEC) 40 mg capsule take 1 capsule by mouth every day - OLANZapine (ZYPREXA) 5 mg tablet Take 5 mg by mouth at bedtime as needed. - venlafaxine ER (EFFEXOR XR) 37.5 mg 24 hr capsule Take three capsules by mouth once daily. - glucosamine HCl/chondroitin brice (GLUCOSAMINE-CHONDROIT IN ORAL) Take 1 capsule by mouth once daily. 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] 06/24/2020 Multiple myeloma in remission (HCC) [C90.01] 06/25/2020 Chronic back pain [M54.9, G89.29] 06/25/2020 Localized swelling of both lower legs [R22.43] 12/16/2020 Cancer related pain [G89.3] 12/16/2020 S/P autologous bone marrow transplantation (HCC*01/13/2021 At risk for infection due to chemotherapy [Z91.*01/13/2021 Pancytopenia due to chemotherapy (HCC) [D61.810]01/13/2021 Chemotherapy induced nausea and vomiting [R11.2*01/13/2021 At risk for electrolyte imbalance [Z91.89] 01/13/2021 Insomnia [G47.00] 01/13/2021 Swelling of right hand [M79.89] 01/14/2021 02/05/2021 Diarrhea [R19.7] 01/18/2021 Fluid overload [E87.70] 01/21/2021 Acute esophagitis [K20.90] 01/22/2021 02/05/2021 Neutropenic fever (HCC) [D70.9, R50.81] 01/24/2021 02/05/2021 Sepsis (HCC) [A41.9] 01/25/2021 02/05/2021 Streptococcal infection [A49.1] 02/05/2021 Immunodeficiency (HCC) [D84.9] 03/04/2021 Vestibular dizziness [H81.90] 07/27/2021 Closed compression fracture of lumbosacral spin*09/22/2022 Compression fracture of thoracic vertebra (HCC)*09/22/2022 Liver mass [R16.0] 01/11/2023 Epigastric pain [R10.13] 03/03/2023 Prescriptions ordered this encounter Disp Refills Start End ACYCLOVIR 400 MG TABLET 60 t* 5 07/13/2024 Route: ORAL Sig: Take 1 tablet by mouth two times a day. Encounter Status:Closed by SANGEETA GARSIA on 07/13/24 [facility] Hepatic function 2000 panelO rdered By: Alexandra Sanchez on 03-22-2024 Albumin [Mass/Vol] 4.2 g/dL 3.9 - 4.9 g/dL [facility] ALP [Catalytic activity/Vol] 81 U/L 34 - 123 U/L [facility] ALT [Catalytic activity/Vol] 29 U/L 7 - 38 U/L [facility] AST [Catalytic activity/Vol] 29 U/L 13 - 35 U/L [facility] Bilirubin [Mass/Vol] 0.2 mg/dL 0.2 - 1 .3 mg/dL [facility] Bilirubin.conjugated [Mass/Vol] mg/dL NINF - 0.2 mg/dL [facility] Interpretation and review of laboratory results Normal [facility] Protein [Mass/Vol] 6.5 g/dL 6.3 - 8.0 g/dL [facility] LACTATE DEHYDROGENASEon 03-10 LDH [Catalytic activity/Vol] 236 U/L High 135 - 214 U/L [facility] LDH [Catalytic activity/Vol] on 03-22-2024 Interpretation and review of laboratory results Abnormal [facility] NM Stomach Views for gastric emptying solid phase W radionuclide Seven 12-30-2023 [facility] CBC W Auto Differential pane l (Bld)on 05-25-2023 Basophils (Bld) [#/Vol] 0.10 10*3/uL <0.11 k/uL [facility] Basophils/100 WBC (Bld) 2.1 % [facility] Differential cell count method Nom (Bld) Auto [facility] Eosinophils (Bld) [#/Vol] 0.37 10*3/uL <0.46 k/uL [facility] Eosinophils/100 WBC (Bld) 7.7 % [facility] Erythrocyte distribution width (RBC) [Ratio] 12.3 % 11.5 - 15.0 % [facility] Hematocrit (Bld) [Volume fraction] 37.5 % 36.0 - 46.0 % [facility] Hemoglobin (Bld) [Mass/Vol] 12.7 g/dL 11.5 - 15.5 g/dL [facility] Immature granulocytes (Bld) [#/Vol] <0.10 k/uL [facility] Immature granulocytes/100 WBC (Bld) 0.4 % [facility] Lymphocytes (Bld) [#/Vol] 1.09 10*3/uL 1.00 - 4.00 k/uL [facility] Lymphocytes/100 WBC (Bld) 22.8 % [facility] MCH (RBC) [Entitic mass] 31.1 pg 26.0 - 34.0 pg [facility] MCHC (RBC) [Mass/Vol] 33.9 g/dL 30.5 - 36.0 g/dL [facility] MCV (RBC) [Entitic vol] 91.9 fL 80.0 - 100.0 fL [facility] Monocytes (Bld) [#/Vol] 0.55 10*3/uL <0.87 k/uL [facility] Monocytes/100 WBC (Bld) 11.5 % [facility] Neutrophils (Bld) [#/Vol] 2.66 10*3/uL 1.45 - 7.50 k/uL [facility] Neutrophils/100 WBC (Bld) 55.5 % [facility] Nucleated RBC (Bld) [#/Vol] <0.01 k/uL [facility] Nucleated RBC/100 WBC (Bld) [Ratio] 0.0 /100 WBC [facility] Platelet mean volume (Bld) [Entitic vol] 9.1 fL 9.0 - 12.7 fL [facility] Platelets (Bld) [#/Vol] 179 10*3/uL 150 - 400 k/uL [facility] RBC (Bld) [#/Vol] 4.08 10*6/uL 3.90 - 5.2 0 m/uL [facility] WBC (Bld) [#/Vol] 4.79 10*3/uL 3.70 - 11. 00 k/uL [facility] Comprehensive metabolic 2000 panelon 05-25-2023 Albumin [Mass/Vol] 4.2 g/dL 3.9 - 4.9 g/dL [facility] ALP [Catalytic activity/Vol] 66 U/L 34 - 123 U/L [facility] ALT [Catalytic activity/Vol] 17 U/L 7 - 38 U/L [facility] Anion gap [Moles/Vol] 11 mmol/L 9 - 18 mmol/L [facility] AST [Catalytic activity/Vol] 21 U/L 13 - 35 U/L [facility] Bilirubin [Mass/Vol] 0.3 mg/dL 0.2 - 1 .3 mg/dL [facility] Calcium [Mass/Vol] 9.3 mg/dL 8.5 - 10. 2 mg/dL [facility] Chloride [Moles/Vol] 105 mmol/L 97 - 10 5 mmol/L [facility] CO2 [Moles/Vol] 23 mmol/L 22 - 30 mmol/L [facility] Creatinine [Mass/Vol] 0.78 mg/dL 0.58 - 0.96 mg/dL [facility] Estimated Glomerular Filtration Rate 88 mL/min/1.73m >=60 mL/min/1.73m [facility] Glucose [Mass/Vol] 92 mg/dL 74 - 99 mg/dL [facility] Potassium [Moles/Vol] 3.9 mmol/L 3.7 - 5.1 mmol/L [facility] Protein [Mass/Vol] 6.5 g/dL 6.3 - 8.0 g/dL [facility] Sodium [Moles/Vol] 139 mmol/L 136 - 144 mmol/L [facility] Urea nitrogen [Mass/Vol] 20 mg/dL 7 - 21 mg/dL [facility] LD LACTATE DEHYDROon 023 LDH [Catalytic activity/Vol] 215 U/L High 135 - 214 U/L [facility] NM HEPATOBILIARY W EF AND/OR RXon 04-07-2023 [facility] LIPASE BLDon 03-09-2023 Lipase [Catalytic activity/Vol] 116 U/L High 16 - 61 U/L [facility] SURGICAL PATHOLOGYon 023 Case Report Surgical Pathology Report Case: [id number] Authorizing Provider: Melissa Cunningham MD Collected: 03/03/2023 01:23 PM Ordering Location: Ambulatory Surgery Received: 03/03/2023 01:55 PM Pathologist: Sanjay Frazier MD Specimens: A) - DUODENUM BIOPSY B) - ANTRUM (STOMACH) BIOPSY C) - ESOPHAGUS BIOPSY, DISTAL D) - ESOPHAGUS MID BIOPSY, MID [facility] FINAL DIAGNOSIS A. Duodenum, biopsy: - Small bowel mucosa with no significant diagnostic alteration. - No evidence of celiac disease or enteritis. B. Gastric antrum, biopsy: - Oxyntic mucosa with no significant diagnostic alteration. - No morphologic evidence of Helicobacter pylori organisms. C. Distal esophagus, biopsy: - Mildly inflamed cardiofundic-type mucosa, negative for intestinal metaplasia. - Reactive squamous mucosa with no significant inflammation, including no eosinophilia. - Separate scant fragment of unremarkable small bowel epithelium, favor carryover from part A. D. Mid esophagus, biopsy: - Squamous mucosa with no significant diagnostic alteration. - No evidence of esophagitis or eosinophilia. [facility] Gross Description A. DUODENUM BIOPSY Received in formalin is one piece of strong-pink, soft tissue measuring 0.4 x 0.3 x 0.3 cm. Totally submitted in one cassette. B. ANTRUM (STOMACH) BIOPSY Received in formalin is one piece of strong, soft tissue measuring 0.7 x 0.2 x 0.2 cm. Totally submitted in one cassette. C. ESOPHAGUS BIOPSY Received in formalin are two pieces of strong-white, soft tissue aggregating to 1.0 x 0.2 x 0.3 cm. Totally submitted in one cassette. D. ESOPHAGUS MID BIOPSY Received in formalin is one piece of strong-white, soft tissue measuring 0.3 x 0.2 x 0.1 cm. Totally submitted in one cassette. KK March 03, 2023 8:26 PM Gross examination performed at [facility], [address] Performing Lab Diagnostic interpretation performed at [facility], [address], [place] [address] CLIA# [id number] [employer] Can Laborer: Chalino Garvey M.D. [facility] EGD DIAGNOSTICon 03-03-2023 [facility] US KIDNEY/BLADDERon 02-19-20 [facility] MRI LIVER WO/W IVCONon 01-26 [facility] CBC W Auto Differential pane l (Bld)on 12-09-2022 Basophils (Bld) [#/Vol] 0.09 10*3/uL <0.11 k/uL [facility] Basophils/100 WBC (Bld) 1.8 % [facility] Differential cell count method Nom (Bld) Auto [facility] Eosinophils (Bld) [#/Vol] 0.34 10*3/uL <0.46 k/uL [facility] Eosinophils/100 WBC (Bld) 6.9 % [facility] Erythrocyte distribution width (RBC) [Ratio] 12.0 % 11.5 - 15.0 % [facility] Hematocrit (Bld) [Volume fraction] 35.6 % Low 36.0 - 46.0 % [facility] Hemoglobin (Bld) [Mass/Vol] 12.2 g/dL 11.5 - 15.5 g/dL [facility] Immature granulocytes (Bld) [#/Vol] 0.03 10*3/uL <0.10 k/uL [facility] Immature granulocytes/100 WBC (Bld) 0.6 % [facility] Lymphocytes (Bld) [#/Vol] 0.91 10*3/uL Low 1.00 - 4.00 k/uL [facility] Lymphocytes/100 WBC (Bld) 18.4 % [facility] MCH (RBC) [Entitic mass] 31.9 pg 26.0 - 34.0 pg [facility] MCHC (RBC) [Mass/Vol] 34.3 g/dL 30.5 - 36.0 g/dL [facility] MCV (RBC) [Entitic vol] 93.0 fL 80.0 - 100.0 fL [facility] Monocytes (Bld) [#/Vol] 0.60 10*3/uL <0.87 k/uL [facility] [facility] Monocytes/100 WBC (Bld) 12.1 % [facility] Neutrophils (Bld) [#/Vol] 2.97 10*3/uL 1.45 - 7.50 k/uL [facility] Neutrophils/100 WBC (Bld) 60.2 % [facility] Nucleated RBC (Bld) [#/Vol] <0.01 k/uL [facility] Nucleated RBC/100 WBC (Bld) [Ratio] 0.0 /100 WBC [facility] Platelet mean volume (Bld) [Entitic vol] 8.9 fL Low 9.0 - 12.7 fL [facility] Platelets (Bld) [#/Vol] 141 10*3/uL Low 150 - 400 k/uL [facility] RBC (Bld) [#/Vol] 3.83 10*6/uL Low 3.90 - 5.2 0 m/uL [facility] WBC (Bld) [#/Vol] 4.94 10*3/uL 3.70 - 11. 00 k/uL [facility] Comprehensive metabolic 2000 panelon 12-09-2022 Albumin [Mass/Vol] 4.0 g/dL 3.9 - 4.9 g/dL [facility] ALP [Catalytic activity/Vol] 68 U/L 34 - 123 U/L [facility] ALT [Catalytic activity/Vol] 29 U/L 7 - 38 U/L [facility] Anion gap [Moles/Vol] 9 mmol/L 9 - 18 mmol/L [facility] AST [Catalytic activity/Vol] 25 U/L 13 - 35 U/L [facility] Bilirubin [Mass/Vol] 0.3 mg/dL 0.2 - 1 .3 mg/dL [facility] Calcium [Mass/Vol] 9.1 mg/dL 8.5 - 10. 2 mg/dL [facility] Chloride [Moles/Vol] 105 mmol/L 97 - 10 5 mmol/L [facility] CO2 [Moles/Vol] 25 mmol/L 22 - 30 mmol/L [facility] Creatinine [Mass/Vol] 0.78 mg/dL 0.58 - 0.96 mg/dL [facility] Estimated Glomerular Filtration Rate 88 mL/min/1.73m >=60 mL/min/1.73m [facility] Glucose [Mass/Vol] 90 mg/dL 74 - 99 mg/dL [facility] Potassium [Moles/Vol] 3.8 mmol/L 3.7 - 5.1 mmol/L [facility] Protein [Mass/Vol] 6.0 g/dL Low 6.3 - 8.0 g/dL [facility] Sodium [Moles/Vol] 139 mmol/L 136 - 144 mmol/L [facility] Urea nitrogen [Mass/Vol] 18 mg/dL 7 - 21 mg/dL [facility] LD LACTATE DEHYDROon 023 LDH [Catalytic activity/Vol] 198 U/L 135 - 214 U/L [facility] URIC ACID BLOODon 12-09-2022 Urate [Mass/Vol] 3.0 mg/dL 2.5 - 6.6 mg/dL [facility] Basophil percentageon 2021 Cholesterol [Mass/Vol] 224 mg/dL <200 [facility] Work Phone: Comment on above: <200 mg/dL Desirable 200-240 mg/dL Borderline >240 mg/dL High Risk Triglyceride [Mass/Vol] 131 mg/dL <199 [facility] Work Phone: Comment on above: The drugs N-Acetylcy steine and Metamizole may falsely depress this assay.Serum Triglycerides Reference Interval Normal <150 mg/dL Borderline high 150 - 199 mg/dL High 200 - 499 mg/dL Very High > or = 500 mg/dL Serum or plasma cholesterol in HDL measurement (mass/volume)on 07-26-2022 Cholesterol in HDL [Mass/Vol] 61 mg/dL >40 [facility] Work Phone: Comment on above: The drugs N-Acetylcy steine and Metamizole may falsely depress this assay. Reference Range HDL <40 mg/dL Low HDL Cholesterol HDL >or= 60 mg/dL High HDL Cholesterol Serum or plasma cholesterol in VLDL measurement (mass/volume)on 07-26-2022 Cholesterol in VLDL [Mass/Vol] 26 mg/dL 5-40 [facility] Work Phone: Serum or plasma low density lipoprotein (LDL) cholesterol measurement (mass/volume)on 07-26-2022 Cholesterol in LDL [Mass/Vol] 137 mg/dL 0-130 [facility] Work Phone: Office Visit: UC: Sinus infe ction, chest congestion, hard to breath x 2 weekson 02-22-2017 Documentation of current medications (procedure) Done Invalid Interpretation Code [facility] Work Phone: Fall risk assessment No Invalid Interpretation Code [facility] Work Phone: Tobacco use [facility] Former smoker Invalid Interpretation Code [facility] Work Phone: Vital Signs Date Time Vital Sign Value Performing Clinician Facility 07-09-2025 13:33-0400 Body height 154.94 cm [employer] Work Phone: [facility] 07-09-2025 13:33-0400 Body mass index (BMI) [Ratio] 43.4 kg/m2 [employer] Work Phone: [facility] 07-09-2025 13:33-0400 Body temperature 96.7 [degF] [employer] Work Phone: [facility] 07-09-2025 13:33-0400 Body weight 104.32 kg [employer] Work Phone: [facility] 07-09-2025 13:33-0400 Diastolic blood pressure 78 mm[Hg] [employer] Work Phone: [facility] 07-09-2025 13:33-0400 Heart rate 86 /min [employer] Work Phone: [facility] 07-09-2025 13:33-0400 Respiratory rate 16 /min [employer] Work Phone: [facility] 07-09-2025 13:33-0400 SaO2% (BldA) [Mass fraction] 97 % Elvi Ataxion PA-C Work Phone: [facility] 07-09-2025 13:33-0400 Systolic blood pressure 122 mm[Hg] Elvi [place] PA-C Work Phone: [facility] 07-02-2025 13:52-0400 Body temperature 98 [degF] Elvi Ataxion PA-C Work Phone: [facility] 07-02-2025 13:52-0400 Diastolic blood pressure 68 mm[Hg] Elvi [place] PA-C Work Phone: [facility] 07-02-2025 13:52-0400 Heart rate 80 /min Elvi Ataxion PA-C Work Phone: [facility] 07-02-2025 13:52-0400 Respiratory rate 18 /min Elvi Ataxion PA-C Work Phone: [facility] 07-02-2025 13:52-0400 SaO2% (BldA) [Mass fraction] 97 % Elvi Ataxion PA-C Work Phone: [facility] 07-02-2025 13:52-0400 Systolic blood pressure 102 mm[Hg] Elvi Ataxion PA-C Work Phone: [facility] 06-26-2025 10:59-0400 Body mass index (BMI) [Ratio] 39.35 kg/m2 Jadon Bowlingi DO Work Phone: [facility] 06-26-2025 10:59-0400 Body temperature 97.7 [degF] Jadon Styles DO Work Phone: [facility] 06-26-2025 10:59-0400 Body weight 91.4 kg Jadon Styles DO Work Phone: [facility] 06-26-2025 10:59-0400 Diastolic blood pressure 86 mm[Hg] Jadon Styles DO Work Phone: [facility] 06-26-2025 10:59-0400 Heart rate 71 /min Jadon Tawnyai DO Work Phone: [facility] 06-26-2025 10:59-0400 SaO2% (BldA) [Mass fraction] 99 % Jadon Tawnyai DO Work Phone: [facility] 06-26-2025 10:59-0400 Systolic blood pressure 147 mm[Hg] Jadon Bowlingi DO Work Phone: [facility] 06-26-2025 10:40-0400 Body mass index (BMI) [Ratio] 39.35 kg/m2 [facility] Work Phone: [facility] 06-26-2025 10:40-0400 Body weight 91.4 kg [facility] Work Phone: [facility] 06-14-2025 14:48-0400 Diastolic blood pressure 89 mm[Hg] [facility] Work Phone: [facility] 06-14-2025 14:48-0400 Heart rate 66 /min [facility] Work Phone: [facility] 06-14-2025 14:48-0400 Systolic blood pressure 153 mm[Hg] [facility] Work Phone: [facility] 06-14-2025 14:30-0400 Respiratory rate 18 /min [facility] Work Phone: [facility] 06-14-2025 14:30-0400 SaO2% (BldA) [Mass fraction] 100 % [facility] Work Phone: [facility] 06-12-2025 13:27-0400 Body mass index (BMI) [Ratio] 38.47 kg/m2 Saba Roa APRN.DEVELOPMENT COACH Work Phone: [facility] 06-12-2025 13:27-0400 Body temperature 98.2 [degF] Saba Roa APRN.DEVELOPMENT COACH Work Phone: [facility] 06-12-2025 13:27-0400 Body weight 89.36 kg Saba Roa HUMANITIES DEPARTMENT CHAIR.DEVELOPMENT COACH Work Phone: [facility] 06-12-2025 13:27-0400 Diastolic blood pressure 86 mm[Hg] Saba Padgettenter HUMANITIES DEPARTMENT CHAIR.DEVELOPMENT COACH Work Phone: [facility] 06-12-2025 13:27-0400 Heart rate 81 /min Saba Roa HUMANITIES DEPARTMENT CHAIR.DEVELOPMENT COACH Work Phone: [facility] 06-12-2025 13:27-0400 SaO2% (BldA) [Mass fraction] 97 % Saba Roa HUMANITIES DEPARTMENT CHAIR.DEVELOPMENT COACH Work Phone: [facility] 06-12-2025 13:27-0400 Systolic blood pressure 129 mm[Hg] Saba Padgettenter HUMANITIES DEPARTMENT CHAIR.DEVELOPMENT COACH Work Phone: [facility] 06-12-2025 13:15-0400 Body mass index (BMI) [Ratio] 38.47 kg/m2 [facility] Work Phone: [facility] 06-12-2025 13:15-0400 Body weight 89.36 kg [facility] Work Phone: [facility] 06-07-2025 14:15-0400 Body temperature 98.4 [degF] Treatment [facility] Work Phone: [facility] 06-07-2025 14:15-0400 Diastolic blood pressure 78 mm[Hg] [facility] Work Phone: [facility] 06-07-2025 14:15-0400 Heart rate 76 /min [facility] Work Phone: [facility] 06-07-2025 14:15-0400 SaO2% (BldA) [Mass fraction] 97 % [facility] Work Phone: [facility] 06-07-2025 14:15-0400 Systolic blood pressure 134 mm[Hg] [facility] Work Phone: [facility] 06-03-2025 13:58-0400 Body temperature 97.9 [degF] [facility] Work Phone: [facility] 06-03-2025 13:58-0400 Diastolic blood pressure 83 mm[Hg] [facility] Work Phone: [facility] 06-03-2025 13:58-0400 Heart rate 71 /min [facility] Work Phone: [facility] 06-03-2025 13:58-0400 Respiratory rate 18 /min [facility] Work Phone: [facility] 06-03-2025 13:58-0400 SaO2% (BldA) [Mass fraction] 98 % [facility] Work Phone: [facility] 06-03-2025 13:58-0400 Systolic blood pressure 135 mm[Hg] [facility] Work Phone: [facility] 05-31-2025 13:23-0400 Body temperature 97.59 [degF] [facility] Work Phone: [facility] 05-31-2025 13:23-0400 Diastolic blood pressure 79 mm[Hg] Treatment [facility] Work Phone: [facility] 05-31-2025 13:23-0400 Heart rate 71 /min Treatment [facility] Work Phone: [facility] 05-31-2025 13:23-0400 SaO2% (BldA) [Mass fraction] 98 % [facility] Work Phone: [facility] 05-31-2025 13:23-0400 Systolic blood pressure 130 mm[Hg] [facility] Work Phone: [facility] 05-29-2025 13:35-0400 Body mass index (BMI) [Ratio] 38.47 kg/m2 Saba Roa APRN.DEVELOPMENT COACH Work Phone: [facility] 05-29-2025 13:35-0400 Body temperature 98.1 [degF] Saba Roa APRN.DEVELOPMENT COACH Work Phone: [facility] 05-29-2025 13:35-0400 Body weight 89.36 kg Saba Roa HUMANITIES DEPARTMENT CHAIR.DEVELOPMENT COACH Work Phone: [facility] 05-29-2025 13:35-0400 Diastolic blood pressure 84 mm[Hg] Saba Padgettenter HUMANITIES DEPARTMENT CHAIR.DEVELOPMENT COACH Work Phone: [facility] 05-29-2025 13:35-0400 Heart rate 76 /min Saba Roa HUMANITIES DEPARTMENT CHAIR.DEVELOPMENT COACH Work Phone: [facility] 05-29-2025 13:35-0400 SaO2% (BldA) [Mass fraction] 99 % Saba Roa HUMANITIES DEPARTMENT CHAIR.DEVELOPMENT COACH Work Phone: [facility] 05-29-2025 13:35-0400 Systolic blood pressure 159 mm[Hg] Saba Roa HUMANITIES DEPARTMENT CHAIR.DEVELOPMENT COACH Work Phone: [facility] 05-29-2025 13:16-0400 Body mass index (BMI) [Ratio] 38.57 kg/m2 [facility] Work Phone: [facility] 05-29-2025 13:16-0400 Body weight 89.58 kg [facility] Work Phone: [facility] 05-27-2025 14:03-0400 Body temperature 97.7 [degF] Treatment [facility] Work Phone: [facility] 05-27-2025 14:03-0400 Diastolic blood pressure 89 mm[Hg] Treatment [facility] Work Phone: [facility] 05-27-2025 14:03-0400 Heart rate 77 /min [facility] Work Phone: [facility] 05-27-2025 14:03-0400 Respiratory rate 20 /min [facility] Work Phone: [facility] 05-27-2025 14:03-0400 SaO2% (BldA) [Mass fraction] 97 % [facility] Work Phone: [facility] 05-27-2025 14:03-0400 Systolic blood pressure 143 mm[Hg] Treatment [facility] Work Phone: [facility] 05-24-2025 11:15-0400 Body temperature 97.7 [degF] [facility] Work Phone: [facility] 05-24-2025 11:15-0400 Diastolic blood pressure 83 mm[Hg] Treatment [facility] Work Phone: [facility] 05-24-2025 11:15-0400 Heart rate 80 /min [facility] Work Phone: [facility] 05-24-2025 11:15-0400 SaO2% (BldA) [Mass fraction] 97 % [facility] Work Phone: [facility] 05-24-2025 11:15-0400 Systolic blood pressure 143 mm[Hg] [facility] Work Phone: [facility] 05-22-2025 14:00-0400 Body temperature 97.81 [degF] [facility] Work Phone: [facility] 05-22-2025 14:00-0400 Diastolic blood pressure 78 mm[Hg] [facility] Work Phone: [facility] 05-22-2025 14:00-0400 Heart rate 64 /min [facility] Work Phone: [facility] 05-22-2025 14:00-0400 Systolic blood pressure 125 mm[Hg] [facility] Work Phone: [facility] 05-20-2025 09:13-0400 Body temperature 97.81 [degF] [facility] Work Phone: [facility] 05-20-2025 09:13-0400 Diastolic blood pressure 71 mm[Hg] [facility] Work Phone: [facility] 05-20-2025 09:13-0400 Heart rate 74 /min [facility] Work Phone: [facility] 05-20-2025 09:13-0400 Respiratory rate 18 /min [facility] Work Phone: [facility] 05-20-2025 09:13-0400 SaO2% (BldA) [Mass fraction] 98 % [facility] Work Phone: [facility] 05-20-2025 09:13-0400 Systolic blood pressure 114 mm[Hg] Treatment [facility] Work Phone: [facility] 05-10-2025 09:48-0400 Body temperature 98.71 [degF] Treatment [facility] Work Phone: [facility] 05-10-2025 09:48-0400 Diastolic blood pressure 80 mm[Hg] Treatment [facility] Work Phone: [facility] 05-10-2025 09:48-0400 Heart rate 76 /min [facility] Work Phone: [facility] 05-10-2025 09:48-0400 Respiratory rate 16 /min [facility] Work Phone: [facility] 05-10-2025 09:48-0400 SaO2% (BldA) [Mass fraction] 97 % [facility] Work Phone: [facility] 05-10-2025 09:48-0400 Systolic blood pressure 129 mm[Hg] Treatment [facility] Work Phone: [facility] 05-08-2025 08:57-0400 Body temperature 98.6 [degF] Treatment [facility] Work Phone: [facility] 05-08-2025 08:57-0400 Diastolic blood pressure 70 mm[Hg] Treatment [facility] Work Phone: [facility] 05-08-2025 08:57-0400 Heart rate 64 /min [facility] Work Phone: [facility] 05-08-2025 08:57-0400 Respiratory rate 16 /min [facility] Work Phone: [facility] 05-08-2025 08:57-0400 SaO2% (BldA) [Mass fraction] 99 % [facility] Work Phone: [facility] 05-08-2025 08:57-0400 Systolic blood pressure 160 mm[Hg] Treatment [facility] Work Phone: [facility] 05-06-2025 09:00-0400 Body temperature 98.4 [degF] Treatment [facility] Work Phone: [facility] 05-06-2025 09:00-0400 Diastolic blood pressure 89 mm[Hg] Treatment [facility] Work Phone: [facility] 05-06-2025 09:00-0400 Heart rate 73 /min [facility] Work Phone: [facility] 05-06-2025 09:00-0400 SaO2% (BldA) [Mass fraction] 98 % [facility] Work Phone: [facility] 05-06-2025 09:00-0400 Systolic blood pressure 147 mm[Hg] Treatment [facility] Work Phone: [facility] 05-02-2025 10:11-0400 Body mass index (BMI) [Ratio] 38.86 kg/m2 [facility] Work Phone: [facility] 05-02-2025 10:11-0400 Body temperature 98.2 [degF] Treatment [facility] Work Phone: [facility] 05-02-2025 10:11-0400 Body weight 90.27 kg Treatment [facility]str Work Phone: [facility] 05-02-2025 10:11-0400 Diastolic blood pressure 70 mm[Hg] Treatment [facility] Work Phone: [facility] 05-02-2025 10:11-0400 Heart rate 75 /min Treatment [facility] Work Phone: [facility] 05-02-2025 10:11-0400 Respiratory rate 18 /min [facility] Work Phone: [facility] 05-02-2025 10:11-0400 SaO2% (BldA) [Mass fraction] 95 % Treatment [facility] Work Phone: [facility] 05-02-2025 10:11-0400 Systolic blood pressure 105 mm[Hg] Treatment [facility] Work Phone: [facility] 04-25-2025 14:20-0400 Diastolic blood pressure 80 mm[Hg] Treatment [facility] Work Phone: [facility] 04-25-2025 14:20-0400 Heart rate 66 /min [facility] Work Phone: [facility] 04-25-2025 14:20-0400 Respiratory rate 16 /min [facility] Work Phone: [facility] 04-25-2025 14:20-0400 Systolic blood pressure 126 mm[Hg] [facility] Work Phone: [facility] 04-25-2025 13:03-0400 Diastolic blood pressure 91 mm[Hg] Hammond Roa HUMANITIES DEPARTMENT CHAIR.DEVELOPMENT COACH Work Phone: [facility] Comment on above: post procedure 04-25-2025 13:03-0400 Heart rate 70 /min Saba Roa HUMANITIES DEPARTMENT CHAIR.DEVELOPMENT COACH Work Phone: [facility] 04-25-2025 13:03-0400 Systolic blood pressure 169 mm[Hg] Saba Roa HUMANITIES DEPARTMENT CHAIR.DEVELOPMENT COACH Work Phone: [facility] Comment on above: post procedure 04-24-2025 11:07-0400 Body temperature 98.01 [degF] Treatment [facility] Work Phone: [facility] 04-24-2025 11:07-0400 Diastolic blood pressure 79 mm[Hg] Treatment [facility] Work Phone: [facility] 04-24-2025 11:07-0400 Heart rate 76 /min [facility] Work Phone: [facility] 04-24-2025 11:07-0400 SaO2% (BldA) [Mass fraction] 97 % [facility] Work Phone: [facility] 04-24-2025 11:07-0400 Systolic blood pressure 130 mm[Hg] [facility] Work Phone: [facility] 04-22-2025 09:55-0400 Body temperature 98.2 [degF] Treatment [facility] Work Phone: [facility] 04-22-2025 09:55-0400 Diastolic blood pressure 83 mm[Hg] Treatment [facility] Work Phone: [facility] 04-22-2025 09:55-0400 Heart rate 76 /min Treatment [facility] Work Phone: [facility] 04-22-2025 09:55-0400 SaO2% (BldA) [Mass fraction] 99 % [facility] Work Phone: [facility] 04-22-2025 09:55-0400 Systolic blood pressure 122 mm[Hg] Treatment [facility] Work Phone: [facility] 04-19-2025 08:05-0400 Body temperature 97.7 [degF] Treatment [facility] Work Phone: [facility] 04-19-2025 08:05-0400 Diastolic blood pressure 75 mm[Hg] Treatment [facility] Work Phone: [facility] 04-19-2025 08:05-0400 Heart rate 76 /min [facility] Work Phone: [facility] 04-19-2025 08:05-0400 Respiratory rate 22 /min Treatment [facility] Work Phone: [facility] 04-19-2025 08:05-0400 SaO2% (BldA) [Mass fraction] 97 % [facility] Work Phone: [facility] 04-19-2025 08:05-0400 Systolic blood pressure 130 mm[Hg] Treatment [facility] Work Phone: [facility] 04-17-2025 15:04-0400 Body mass index (BMI) [Ratio] 39.06 kg/m2 [facility] Work Phone: [facility] 04-17-2025 15:04-0400 Body temperature 97.2 [degF] Treatment [facility] Work Phone: [facility] 04-17-2025 15:04-0400 Body weight 90.72 kg Treatment [facility]str Work Phone: [facility] 04-17-2025 15:04-0400 Diastolic blood pressure 77 mm[Hg] Treatment [facility]str Work Phone: [facility] 04-17-2025 15:04-0400 Heart rate 79 /min Treatment [facility] Work Phone: [facility] 04-17-2025 15:04-0400 SaO2% (BldA) [Mass fraction] 97 % [facility] Work Phone: [facility] 04-17-2025 15:04-0400 Systolic blood pressure 125 mm[Hg] Treatment [facility]str Work Phone: [facility] 04-11-2025 13:15-0400 Body temperature 98.91 [degF] Treatment [facility]str Work Phone: [facility] 04-11-2025 13:15-0400 Diastolic blood pressure 86 mm[Hg] Treatment [facility]str Work Phone: [facility] 04-11-2025 13:15-0400 Heart rate 80 /min Treatment [facility]str Work Phone: [facility] 04-11-2025 13:15-0400 SaO2% (BldA) [Mass fraction] 97 % Treatment [facility] Work Phone: [facility] 04-11-2025 13:15-0400 Systolic blood pressure 129 mm[Hg] Treatment [facility]str Work Phone: [facility] 04-10-2025 09:02-0400 Body temperature 98.01 [degF] Treatment [facility]str Work Phone: [facility] 04-10-2025 09:02-0400 Diastolic blood pressure 93 mm[Hg] Treatment [facility]str Work Phone: [facility] 04-10-2025 09:02-0400 Heart rate 76 /min Treatment [facility] Work Phone: [facility] 04-10-2025 09:02-0400 SaO2% (BldA) [Mass fraction] 98 % [facility] Work Phone: [facility] 04-10-2025 09:02-0400 Systolic blood pressure 148 mm[Hg] Treatment [facility]str Work Phone: [facility] 04-08-2025 10:00-0400 Body temperature 96.8 [degF] Treatment [facility]str Work Phone: [facility] 04-08-2025 10:00-0400 Diastolic blood pressure 82 mm[Hg] Treatment [facility]str Work Phone: [facility] 04-08-2025 10:00-0400 Heart rate 82 /min Treatment [facility] Work Phone: [facility] 04-08-2025 10:00-0400 SaO2% (BldA) [Mass fraction] 96 % Treatment [facility] Work Phone: [facility] 04-08-2025 10:00-0400 Systolic blood pressure 129 mm[Hg] Treatment [facility]str Work Phone: [facility] 04-05-2025 12:56-0400 Body temperature 98.01 [degF] Treatment [facility]str Work Phone: [facility] 04-05-2025 12:56-0400 Diastolic blood pressure 83 mm[Hg] Treatment [facility]str Work Phone: [facility] 04-05-2025 12:56-0400 Heart rate 89 /min Treatment [facility]str Work Phone: [facility] 04-05-2025 12:56-0400 Respiratory rate 22 /min Treatment [facility] Work Phone: [facility] 04-05-2025 12:56-0400 SaO2% (BldA) [Mass fraction] 97 % [facility] Work Phone: [facility] 04-05-2025 12:56-0400 Systolic blood pressure 147 mm[Hg] Treatment [facility]str Work Phone: [facility] 04-03-2025 13:54-0400 Body mass index (BMI) [Ratio] 38.63 kg/m2 Saba Roa APRN.DEVELOPMENT COACH Work Phone: [facility] 04-03-2025 13:54-0400 Body temperature 98.1 [degF] Saba Roa APRN.DEVELOPMENT COACH Work Phone: [facility] 04-03-2025 13:54-0400 Body weight 89.72 kg Saba Roa HUMANITIES DEPARTMENT CHAIR.DEVELOPMENT COACH Work Phone: [facility] 04-03-2025 13:54-0400 Diastolic blood pressure 89 mm[Hg] Saba Padgettenter HUMANITIES DEPARTMENT CHAIR.DEVELOPMENT COACH Work Phone: [facility] 04-03-2025 13:54-0400 Heart rate 82 /min Saba Padgettenter HUMANITIES DEPARTMENT CHAIR.DEVELOPMENT COACH Work Phone: [facility] 04-03-2025 13:54-0400 SaO2% (BldA) [Mass fraction] 94 % Saba Padgettenter HUMANITIES DEPARTMENT CHAIR.DEVELOPMENT COACH Work Phone: [facility] 04-03-2025 13:54-0400 Systolic blood pressure 134 mm[Hg] Saba Roa HUMANITIES DEPARTMENT CHAIR.DEVELOPMENT COACH Work Phone: [facility] 04-03-2025 13:00-0400 Body mass index (BMI) [Ratio] 38.57 kg/m2 [facility] Work Phone: [facility] 04-03-2025 13:00-0400 Body weight 89.58 kg Lab[facility] Work Phone: [facility] 04-01-2025 13:00-0400 Body temperature 97.81 [degF] Treatment [facility]str Work Phone: [facility] 04-01-2025 13:00-0400 Diastolic blood pressure 74 mm[Hg] Treatment [facility]str Work Phone: [facility] 04-01-2025 13:00-0400 Heart rate 89 /min Treatment [facility]str Work Phone: [facility] 04-01-2025 13:00-0400 Respiratory rate 16 /min Treatment [facility]str Work Phone: [facility] 04-01-2025 13:00-0400 SaO2% (BldA) [Mass fraction] 98 % Treatment [facility]str Work Phone: [facility] 04-01-2025 13:00-0400 Systolic blood pressure 147 mm[Hg] Treatment [facility]str Work Phone: [facility] 03-29-2025 14:28-0400 Body temperature 97.9 [degF] Treatment [facility]str Work Phone: [facility] 03-29-2025 14:28-0400 Diastolic blood pressure 82 mm[Hg] Treatment [facility]str Work Phone: [facility] 03-29-2025 14:28-0400 Heart rate 98 /min Treatment [facility]str Work Phone: [facility] 03-29-2025 14:28-0400 SaO2% (BldA) [Mass fraction] 96 % Treatment [facility]str Work Phone: [facility] 03-29-2025 14:28-0400 Systolic blood pressure 127 mm[Hg] Treatment [facility]str Work Phone: [facility] 03-27-2025 13:00-0400 Body temperature 97.39 [degF] Treatment [facility]str Work Phone: [facility] 03-27-2025 13:00-0400 Diastolic blood pressure 69 mm[Hg] Treatment [facility]str Work Phone: [facility] 03-27-2025 13:00-0400 Heart rate 93 /min Treatment [facility]str Work Phone: [facility] 03-27-2025 13:00-0400 SaO2% (BldA) [Mass fraction] 96 % Treatment [facility]str Work Phone: [facility] 03-27-2025 13:00-0400 Systolic blood pressure 120 mm[Hg] Treatment [facility]str Work Phone: [facility] 03-25-2025 14:20-0400 Body temperature 98.2 [degF] Treatment [facility]str Work Phone: [facility] 03-25-2025 14:20-0400 Diastolic blood pressure 76 mm[Hg] Treatment [facility]str Work Phone: [facility] 03-25-2025 14:20-0400 Heart rate 80 /min Treatment [facility]str Work Phone: [facility] 03-25-2025 14:20-0400 Respiratory rate 16 /min Treatment [facility]str Work Phone: [facility] 03-25-2025 14:20-0400 SaO2% (BldA) [Mass fraction] 97 % Treatment [facility]str Work Phone: [facility] 03-25-2025 14:20-0400 Systolic blood pressure 122 mm[Hg] Treatment [facility]str Work Phone: [facility] 03-21-2025 13:24-0400 Body mass index (BMI) [Ratio] 38.67 kg/m2 Treatment [facility]str Work Phone: [facility] 03-21-2025 13:24-0400 Body temperature 98.49 [degF] Treatment [facility]str Work Phone: [facility] 03-21-2025 13:24-0400 Body weight 89.81 kg Treatment [facility]str Work Phone: [facility] 03-21-2025 13:24-0400 Diastolic blood pressure 82 mm[Hg] Treatment [facility]str Work Phone: [facility] 03-21-2025 13:24-0400 Heart rate 80 /min Treatment [facility]str Work Phone: [facility] 03-21-2025 13:24-0400 Respiratory rate 16 /min Treatment [facility]str Work Phone: [facility] 03-21-2025 13:24-0400 SaO2% (BldA) [Mass fraction] 97 % Treatment [facility]str Work Phone: [facility] 03-21-2025 13:24-0400 Systolic blood pressure 135 mm[Hg] Treatment Wstr Work Phone: [facility] 03-20-2025 13:10-0400 Body temperature 98.49 [degF] Treatment Wstr Work Phone: [facility] 03-20-2025 13:10-0400 Diastolic blood pressure 79 mm[Hg] Treatment Wstr Work Phone: [facility] 03-20-2025 13:10-0400 Heart rate 89 /min Treatment Wstr Work Phone: [facility] 03-20-2025 13:10-0400 Respiratory rate 16 /min Treatment Wstr Work Phone: [facility] 03-20-2025 13:10-0400 SaO2% (BldA) [Mass fraction] 98 % Treatment Wstr Work Phone: [facility] 03-20-2025 13:10-0400 Systolic blood pressure 125 mm[Hg] Treatment Wstr Work Phone: [facility] 03-18-2025 13:40-0400 Body temperature 96.91 [degF] Treatment Wstr Work Phone: [facility] 03-18-2025 13:40-0400 Diastolic blood pressure 79 mm[Hg] Treatment Wstr Work Phone: [facility] 03-18-2025 13:40-0400 Heart rate 96 /min Treatment Wstr Work Phone: [facility] 03-18-2025 13:40-0400 SaO2% (BldA) [Mass fraction] 98 % Treatment Wstr Work Phone: [facility] 03-18-2025 13:40-0400 Systolic blood pressure 133 mm[Hg] Treatment Wstr Work Phone: [facility] 03-15-2025 13:50-0400 Body mass index (BMI) [Ratio] 38.28 kg/m2 Jadon Masci DO Work Phone: [facility] 03-15-2025 13:50-0400 Body temperature 97.5 [degF] Jadon Masci DO Work Phone: [facility] 03-15-2025 13:50-0400 Body weight 88.91 kg Jadon Masci DO Work Phone: [facility] 03-15-2025 13:50-0400 Diastolic blood pressure 84 mm[Hg] Jadon Masci DO Work Phone: [facility] 03-15-2025 13:50-0400 Heart rate 100 /min Jadon Styles DO Work Phone: [facility] 03-15-2025 13:50-0400 SaO2% (BldA) [Mass fraction] 97 % Jadon Styles DO Work Phone: [facility] 03-15-2025 13:50-0400 Systolic blood pressure 126 mm[Hg] Jadon Styles DO Work Phone: [facility] 03-15-2025 13:30-0400 Body mass index (BMI) [Ratio] 38.28 kg/m2 Lab/Port Wstr Work Phone: [facility] 03-15-2025 13:30-0400 Body weight 88.91 kg Lab/Port Wstr Work Phone: [facility] 03-11-2025 13:22-0400 Body temperature 98.29 [degF] Treatment Wstr Work Phone: [facility] 03-11-2025 13:22-0400 Diastolic blood pressure 86 mm[Hg] Treatment Wstr Work Phone: [facility] 03-11-2025 13:22-0400 Heart rate 80 /min Treatment Wstr Work Phone: [facility] 03-11-2025 13:22-0400 Respiratory rate 16 /min Treatment Wstr Work Phone: [facility] 03-11-2025 13:22-0400 SaO2% (BldA) [Mass fraction] 98 % Treatment Wstr Work Phone: [facility] 03-11-2025 13:22-0400 Systolic blood pressure 138 mm[Hg] Treatment Wstr Work Phone: [facility] 03-08-2025 13:12-0400 Body mass index (BMI) [Ratio] 38.47 kg/m2 Treatment Wstr Work Phone: [facility] 03-08-2025 13:12-0400 Body temperature 98.2 [degF] Treatment Wstr Work Phone: [facility] 03-08-2025 13:12-0400 Body weight 89.36 kg Treatment Wstr Work Phone: [facility] 03-08-2025 13:12-0400 Diastolic blood pressure 68 mm[Hg] Treatment Wstr Work Phone: [facility] 03-08-2025 13:12-0400 Heart rate 95 /min Treatment Wstr Work Phone: [facility] 03-08-2025 13:12-0400 SaO2% (BldA) [Mass fraction] 98 % Treatment Wstr Work Phone: [facility] 03-08-2025 13:12-0400 Systolic blood pressure 143 mm[Hg] Treatment Wstr Work Phone: [facility] 03-05-2025 14:41-0400 Body temperature 97.5 [degF] Treatment Wstr Work Phone: [facility] 03-05-2025 14:41-0400 Diastolic blood pressure 80 mm[Hg] Treatment Wstr Work Phone: [facility] 03-05-2025 14:41-0400 Heart rate 97 /min Treatment Wstr Work Phone: [facility] 03-05-2025 14:41-0400 SaO2% (BldA) [Mass fraction] 97 % Treatment Wstr Work Phone: [facility] 03-05-2025 14:41-0400 Systolic blood pressure 126 mm[Hg] Treatment Wstr Work Phone: [facility] 02-25-2025 13:00-0400 Body temperature 98.01 [degF] Treatment Wstr Work Phone: [facility] 02-25-2025 13:00-0400 Diastolic blood pressure 96 mm[Hg] Treatment Wstr Work Phone: [facility] 02-25-2025 13:00-0400 Heart rate 87 /min Treatment Wstr Work Phone: [facility] 02-25-2025 13:00-0400 Systolic blood pressure 147 mm[Hg] Treatment Wstr Work Phone: [facility] 02-22-2025 10:140400 Body mass index (BMI) [Ratio] 38.28 kg/m2 Jadon Styles DO Work Phone: [facility] 02-22-2025 10:140400 Body temperature 98.01 [degF] Jadon Bowlingi DO Work Phone: [facility] 02-22-2025 10:140400 Body weight 88.91 kg Jadon Bowlingi DO Work Phone: [facility] 02-22-2025 10:14-0400 Diastolic blood pressure 83 mm[Hg] Jadon Bowlingi DO Work Phone: [facility] 02-22-2025 10:14-0400 Heart rate 104 /min Jadon Bowlingi DO Work Phone: [facility] 02-22-2025 10:14-0400 SaO2% (BldA) [Mass fraction] 96 % Jadon Bowlingi DO Work Phone: [facility] 02-22-2025 10:14-0400 Systolic blood pressure 122 mm[Hg] Jadon Bowlingi DO Work Phone: [facility] 02-22-2025 10:02-0400 Body mass index (BMI) [Ratio] 38.28 kg/m2 Lab/Port Wstr Work Phone: [facility] 02-22-2025 [id number] Body weight 88.91 kg Lab/Port Wstr Work Phone: [facility] 02-20-2025 15:00-0400 Body temperature 98.2 [degF] Dr. Surjit Santizo MD Work Phone: [facility] 02-20-2025 15:00-0400 Diastolic blood pressure 80 mm[Hg] Dr. Surjit Santizo MD Work Phone: [facility] 02-20-2025 15:00-0400 Heart rate 90 /min Dr. Surjit Santizo MD Work Phone: [facility] 02-20-2025 15:00-0400 SaO2% (BldA) [Mass fraction] 98 % Dr. Surjit Santizo MD Work Phone: [facility] 02-20-2025 15:00-0400 Systolic blood pressure 120 mm[Hg] Dr. Surjit Santizo MD Work Phone: [facility] 02-20-2025 13:30-0400 Body temperature 99 [degF] Treatment Wstr Work Phone: [facility] 02-20-2025 13:30-0400 Diastolic blood pressure 80 mm[Hg] Treatment Wstr Work Phone: [facility] 02-20-2025 13:30-0400 Heart rate 98 /min Treatment Wstr Work Phone: [facility] 02-20-2025 13:30-0400 Respiratory rate 18 /min Treatment Wstr Work Phone: [facility] 02-20-2025 13:30-0400 SaO2% (BldA) [Mass fraction] 96 % Treatment Wstr Work Phone: [facility] 02-20-2025 13:30-0400 Systolic blood pressure 132 mm[Hg] Treatment Wstr Work Phone: [facility] 02-18-2025 21:00-0400 Diastolic blood pressure 78 mm[Hg] Dr. Surjit Santizo MD Work Phone: [facility] 02-18-2025 21:00-0400 Heart rate 95 /min Dr. Surjit Santizo MD Work Phone: [facility] 02-18-2025 21:00-0400 Respiratory rate 18 /min Dr. Surjit Santizo MD Work Phone: [facility] 02-18-2025 21:00-0400 SaO2% (BldA) [Mass fraction] 98 % Dr. Surjit Santizo MD Work Phone: [facility] 02-18-2025 21:00-0400 Systolic blood pressure 130 mm[Hg] Dr. Surjit Santizo MD Work Phone: [facility] 02-18-2025 20:57-0400 Body temperature 98.5 [degF] Dr. Surjit Santizo MD Work Phone: [facility] 02-18-2025 18:58-0400 Body mass index (BMI) [Ratio] 38.4 kg/m2 Dr. Surjit Santizo MD Work Phone: [facility] 02-18-2025 18:58-0400 Body weight 92.[address] Surjit Santizo MD Work Phone: [facility] 02-18-2025 13:13-0400 Body height 154.[address] Surjit Santizo MD Work Phone: [facility] 02-15-2025 14:00-0400 Body mass index (BMI) [Ratio] 38.86 kg/m2 Treatment Wstr Work Phone: [facility] 02-15-2025 14:00-0400 Body temperature 99.19 [degF] Treatment Wstr Work Phone: [facility] 02-15-2025 14:00-0400 Body weight 90.27 kg Treatment Wstr Work Phone: [facility] 02-15-2025 14:00-0400 Diastolic blood pressure 86 mm[Hg] Treatment Wstr Work Phone: [facility] 02-15-2025 14:00-0400 Heart rate 90 /min Treatment Wstr Work Phone: [facility] 02-15-2025 14:00-0400 Respiratory rate 16 /min Treatment Wstr Work Phone: [facility] 02-15-2025 14:00-0400 SaO2% (BldA) [Mass fraction] 97 % Treatment Wstr Work Phone: [facility] 02-15-2025 14:00-0400 Systolic blood pressure 144 mm[Hg] Treatment Wstr Work Phone: [facility] 02-13-2025 13:10-0400 Body temperature 98.01 [degF] Treatment Wstr Work Phone: [facility] 02-13-2025 13:10-0400 Diastolic blood pressure 70 mm[Hg] Treatment Wstr Work Phone: [facility] 02-13-2025 13:10-0400 Heart rate 76 /min Treatment Wstr Work Phone: [facility] 02-13-2025 13:10-0400 Respiratory rate 14 /min Treatment Wstr Work Phone: [facility] 02-13-2025 13:10-0400 SaO2% (BldA) [Mass fraction] 97 % Treatment Wstr Work Phone: [facility] 02-13-2025 13:10-0400 Systolic blood pressure 113 mm[Hg] Treatment Wstr Work Phone: [facility] 02-11-2025 13:55-0400 Body temperature 98.01 [degF] Treatment Wstr Work Phone: [facility] 02-11-2025 13:55-0400 Diastolic blood pressure 87 mm[Hg] Treatment Wstr Work Phone: [facility] 02-11-2025 13:55-0400 Heart rate 60 /min Treatment Wstr Work Phone: [facility] 02-11-2025 13:55-0400 Systolic blood pressure 133 mm[Hg] Treatment Wstr Work Phone: [facility] 02-08-2025 14:24-0400 Body mass index (BMI) [Ratio] 39.26 kg/m2 Treatment Wstr Work Phone: [facility] 02-08-2025 14:24-0400 Body temperature 98.49 [degF] Treatment Wstr Work Phone: [facility] 02-08-2025 14:24-0400 Body weight 91.17 kg Treatment Wstr Work Phone: [facility] 02-08-2025 14:24-0400 Diastolic blood pressure 85 mm[Hg] Treatment Wstr Work Phone: [facility] 02-08-2025 14:24-0400 Heart rate 76 /min Treatment Wstr Work Phone: [facility] 02-08-2025 14:24-0400 Respiratory rate 16 /min Treatment Wstr Work Phone: [facility] 02-08-2025 14:24-0400 SaO2% (BldA) [Mass fraction] 99 % Treatment Wstr Work Phone: [facility] 02-08-2025 14:24-0400 Systolic blood pressure 145 mm[Hg] Treatment Wstr Work Phone: [facility] 02-06-2025 11:44-0400 Body mass index (BMI) [Ratio] 38.86 kg/m2 Treatment Wstr Work Phone: [facility] 02-06-2025 11:44-0400 Body temperature 98.6 [degF] Treatment Wstr Work Phone: [facility] 02-06-2025 11:44-0400 Body weight 90.27 kg Treatment Wstr Work Phone: [facility] 02-06-2025 11:44-0400 Diastolic blood pressure 82 mm[Hg] Treatment Wstr Work Phone: [facility] 02-06-2025 11:44-0400 Heart rate 97 /min Treatment Wstr Work Phone: [facility] 02-06-2025 11:44-0400 SaO2% (BldA) [Mass fraction] 97 % Treatment Wstr Work Phone: [facility] 02-06-2025 11:44-0400 Systolic blood pressure 122 mm[Hg] Treatment Wstr Work Phone: [facility] 02-04-2025 13:00-0400 Body temperature 98.01 [degF] Treatment Wstr Work Phone: [facility] 02-04-2025 13:00-0400 Diastolic blood pressure 86 mm[Hg] Treatment Wstr Work Phone: [facility] 02-04-2025 13:00-0400 Heart rate 90 /min Treatment Wstr Work Phone: [facility] 02-04-2025 13:00-0400 Systolic blood pressure 144 mm[Hg] Treatment Wstr Work Phone: [facility] 01-30-2025 14:31-0400 Body temperature 96.9 [degF] Dr. Surjit Santizo MD Work Phone: 3(248)248-997[address] [place] [address] 01-30-2025 14:31-0400 Diastolic blood pressure 81 mm[Hg] Dr. Surjit Santizo MD Work Phone: 7(600)885-033[address] [place] [address] 01-30-2025 14:31-0400 Heart rate 89 /min Dr. Surjit Santizo MD Work Phone: 0(405)713-971765 [place] [address] 01-30-2025 14:31-0400 Respiratory rate 16 /min Dr. Surjit Santizo MD Work Phone: 6(019)879-569900 [place] [address] 01-30-2025 14:31-0400 SaO2% (BldA) [Mass fraction] 99 % Dr. Surjit Santizo MD Work Phone: 0(171)798-633000 [place] [address] 01-30-2025 14:31-0400 Systolic blood pressure 130 mm[Hg] Dr. Surjit Santizo MD Work Phone: 0(736)160-964465 [place] [address] 01-30-2025 13:25-0400 Body mass index (BMI) [Ratio] 37.5 kg/m2 Dr. Surjit Santizo MD Work Phone: 8(722)196-65[address] [place] [address] 01-30-2025 13:25-0400 Body weight 90.[address] Surjit Santizo MD Work Phone: 2(211)948-827600 [place] [address] 01-28-2025 12:36-0400 Body mass index (BMI) [Ratio] 37.5 kg/m2 Dr. Surjit Santizo MD Work Phone: 9(287)645-36[address] [place] [address] 01-28-2025 12:36-0400 Body temperature 96.5 [degF] Dr. Surjit Santizo MD Work Phone: 9(739)677-798200 [place] [address] 01-28-2025 12:36-0400 Body weight 90.[address] Surjit Santizo MD Work Phone: 6(294)112-845100 [place] [address] 01-28-2025 12:36-0400 Diastolic blood pressure 86 mm[Hg] Dr. Surjit Santizo MD Work Phone: [facility] 01-28-2025 12:36-0400 Heart rate 92 /min Dr. Surjit Santizo MD Work Phone: [facility] 01-28-2025 12:36-0400 Respiratory rate 16 /min Dr. Surjit Santizo MD Work Phone: [facility] 01-28-2025 12:36-0400 SaO2% (BldA) [Mass fraction] 97 % Dr. Surjit Santizo MD Work Phone: [facility] 01-28-2025 12:36-0400 Systolic blood pressure 133 mm[Hg] Dr. Surjit Santizo MD Work Phone: [facility] 01-25-2025 18:35-0400 Body temperature 98 [degF] QUALITY ASSURANCE COACH. Ysabel Ungerer QUALITY ASSURANCE COACH-C Work Phone: [facility] 01-25-2025 18:35-0400 Diastolic blood pressure 89 mm[Hg] QUALITY ASSURANCE COACH. Ysabel Ungerer QUALITY ASSURANCE COACH-C Work Phone: [facility] 01-25-2025 18:35-0400 Heart rate 105 /min QUALITY ASSURANCE COACH. Ysabel Ungerer QUALITY ASSURANCE COACH-C Work Phone: [facility] 01-25-2025 18:35-0400 Respiratory rate 18 /min QUALITY ASSURANCE COACH. Ysabel Ungerer QUALITY ASSURANCE COACH-C Work Phone: [facility] 01-25-2025 18:35-0400 SaO2% (BldA) [Mass fraction] 96 % QUALITY ASSURANCE COACH. Ysabel Ungerer QUALITY ASSURANCE COACH-C Work Phone: [facility] 01-25-2025 18:35-0400 Systolic blood pressure 139 mm[Hg] QUALITY ASSURANCE COACH. Ysabel Ungerer QUALITY ASSURANCE COACH-C Work Phone: [facility] 01-25-2025 16:07-0400 Body height 154.94 cm QUALITY ASSURANCE COACH. Ysabel Ungerer QUALITY ASSURANCE COACH-C Work Phone: [facility] 01-25-2025 16:07-0400 Body mass index (BMI) [Ratio] 37.6 kg/m2 QUALITY ASSURANCE COACH. Ysabel Kisererer QUALITY ASSURANCE COACH-C Work Phone: [facility] 01-25-2025 16:07-0400 Body weight 90.35 kg QUALITY ASSURANCE COACH. Ysabel Kisererer QUALITY ASSURANCE COACH-C Work Phone: [facility] 01-25-2025 15:27-0400 Body temperature 98.71 [degF] Treatment Wstr Work Phone: [facility] 01-25-2025 15:27-0400 Diastolic blood pressure 84 mm[Hg] Treatment Wstr Work Phone: [facility] 01-25-2025 15:27-0400 Heart rate 111 /min Treatment Wstr Work Phone: [facility] 01-25-2025 15:27-0400 Respiratory rate 18 /min Treatment Wstr Work Phone: [facility] 01-25-2025 15:27-0400 SaO2% (BldA) [Mass fraction] 94 % Treatment Wstr Work Phone: [facility] 01-25-2025 15:27-0400 Systolic blood pressure 123 mm[Hg] Treatment Wstr Work Phone: [facility] 01-23-2025 12:51-0400 Diastolic blood pressure 83 mm[Hg] QUALITY ASSURANCE COACH. Ysabel Kisererer QUALITY ASSURANCE COACH-C Work Phone: [facility] 01-23-2025 12:51-0400 Heart rate 76 /min QUALITY ASSURANCE COACH. Ysabel Kisererer QUALITY ASSURANCE COACH-C Work Phone: [facility] 01-23-2025 12:51-0400 Respiratory rate 16 /min QUALITY ASSURANCE COACH. Ysabel Kisererer QUALITY ASSURANCE COACH-C Work Phone: [facility] 01-23-2025 12:51-0400 Systolic blood pressure 144 mm[Hg] QUALITY ASSURANCE COACH. Ysabel Kisererer QUALITY ASSURANCE COACH-C Work Phone: [facility] 01-23-2025 11:33-0400 Body height 154.94 cm QUALITY ASSURANCE COACH. Ysable Ungerer QUALITY ASSURANCE COACH-C Work Phone: [facility] 01-23-2025 11:33-0400 Body temperature 96 [degF] QUALITY ASSURANCE COACH. Ysabel Ungerer QUALITY ASSURANCE COACH-C Work Phone: [facility] 01-23-2025 11:33-0400 SaO2% (BldA) [Mass fraction] 97 % QUALITY ASSURANCE COACH. Ysabel Kisererer QUALITY ASSURANCE COACH-C Work Phone: [facility] 01-21-2025 12:47-0400 Body temperature 96 [degF] QUALITY ASSURANCE COACH. Ysabel Ungerer QUALITY ASSURANCE COACH-C Work Phone: [facility] 01-21-2025 12:47-0400 Diastolic blood pressure 82 mm[Hg] QUALITY ASSURANCE COACH. Ysabel Ungerer QUALITY ASSURANCE COACH-C Work Phone: [facility] 01-21-2025 12:47-0400 Heart rate 78 /min QUALITY ASSURANCE COACH. Ysabel Ungerer QUALITY ASSURANCE COACH-C Work Phone: [facility] 01-21-2025 12:47-0400 Respiratory rate 16 /min QUALITY ASSURANCE COACH. Ysabel Ungerer QUALITY ASSURANCE COACH-C Work Phone: [facility] 01-21-2025 12:47-0400 SaO2% (BldA) [Mass fraction] 98 % QUALITY ASSURANCE COACH. Ysabel Ungerer QUALITY ASSURANCE COACH-C Work Phone: [facility] 01-21-2025 12:47-0400 Systolic blood pressure 137 mm[Hg] QUALITY ASSURANCE COACH. Ysabel Ungerer QUALITY ASSURANCE COACH-C Work Phone: [facility] 01-21-2025 11:28-0400 Body height 154.94 cm QUALITY ASSURANCE COACH. Ysabel Ungerer QUALITY ASSURANCE COACH-C Work Phone: [facility] 01-18-2025 15:55-0400 Body temperature 97.3 [degF] QUALITY ASSURANCE COACH. Ysabel Kisererer QUALITY ASSURANCE COACH-C Work Phone: [facility] 01-18-2025 15:55-0400 Diastolic blood pressure 81 mm[Hg] QUALITY ASSURANCE COACH. Ysabel Ungerer QUALITY ASSURANCE COACH-C Work Phone: [facility] 01-18-2025 15:55-0400 Heart rate 66 /min QUALITY ASSURANCE COACH. Ysabel Ungerer QUALITY ASSURANCE COACH-C Work Phone: [facility] 01-18-2025 15:55-0400 Respiratory rate 18 /min QUALITY ASSURANCE COACH. Ysabel Ungerer QUALITY ASSURANCE COACH-C Work Phone: [facility] 01-18-2025 15:55-0400 SaO2% (BldA) [Mass fraction] 97 % QUALITY ASSURANCE COACH. Ysabel Kisererer QUALITY ASSURANCE COACH-C Work Phone: [facility] 01-18-2025 15:55-0400 Systolic blood pressure 141 mm[Hg] QUALITY ASSURANCE COACH. Ysabel Ungerer QUALITY ASSURANCE COACH-C Work Phone: [facility] 01-18-2025 13:51-0400 Body height 154.94 cm QUALITY ASSURANCE COACH. Ysabel Ungerer QUALITY ASSURANCE COACH-C Work Phone: [facility] 01-18-2025 13:51-0400 Body mass index (BMI) [Ratio] 37.8 kg/m2 QUALITY ASSURANCE COACH. Ysabel Ungerer QUALITY ASSURANCE COACH-C Work Phone: [facility] 01-18-2025 13:51-0400 Body weight 90.7 kg QUALITY ASSURANCE COACH. Ysabel Ungerer QUALITY ASSURANCE COACH-C Work Phone: [facility] 01-18-2025 13:16-0400 Diastolic blood pressure 82 mm[Hg] QUALITY ASSURANCE COACH. Ysabel Ungerer QUALITY ASSURANCE COACH-C Work Phone: [facility] 01-18-2025 13:16-0400 Heart rate 74 /min QUALITY ASSURANCE COACH. Ysabel Ungerer QUALITY ASSURANCE COACH-C Work Phone: [facility] 01-18-2025 13:16-0400 Respiratory rate 14 /min QUALITY ASSURANCE COACH. Ysabel Ungerer QUALITY ASSURANCE COACH-C Work Phone: [facility] 01-18-2025 13:16-0400 SaO2% (BldA) [Mass fraction] 97 % QUALITY ASSURANCE COACH. Ysabel Ungerer QUALITY ASSURANCE COACH-C Work Phone: [facility] 01-18-2025 13:16-0400 Systolic blood pressure 142 mm[Hg] QUALITY ASSURANCE COACH. Ysabel Ungerer QUALITY ASSURANCE COACH-C Work Phone: [facility] 01-18-2025 12:02-0400 Body temperature 97.4 [degF] QUALITY ASSURANCE COACH. Ysabel Ungerer QUALITY ASSURANCE COACH-C Work Phone: [facility] 01-16-2025 13:44-0400 Body temperature 97.5 [degF] QUALITY ASSURANCE COACH. Ysabel Ungerer QUALITY ASSURANCE COACH-C Work Phone: [facility] 01-16-2025 13:44-0400 Diastolic blood pressure 77 mm[Hg] QUALITY ASSURANCE COACH. Ysabel Ungerer QUALITY ASSURANCE COACH-C Work Phone: [facility] 01-16-2025 13:44-0400 Heart rate 76 /min QUALITY ASSURANCE COACH. Ysabel Ungerer QUALITY ASSURANCE COACH-C Work Phone: [facility] 01-16-2025 13:44-0400 Respiratory rate 16 /min QUALITY ASSURANCE COACH. Ysabel Ungerer QUALITY ASSURANCE COACH-C Work Phone: [facility] 01-16-2025 13:44-0400 SaO2% (BldA) [Mass fraction] 98 % QUALITY ASSURANCE COACH. Ysabel Ungerer QUALITY ASSURANCE COACH-C Work Phone: [facility] 01-16-2025 13:44-0400 Systolic blood pressure 142 mm[Hg] QUALITY ASSURANCE COACH. Ysabel Ungerer QUALITY ASSURANCE COACH-C Work Phone: [facility] 01-16-2025 12:37-0400 Body height 154.94 cm QUALITY ASSURANCE COACH. Ysabel Ungerer QUALITY ASSURANCE COACH-C Work Phone: [facility] 01-14-2025 14:17-0400 Diastolic blood pressure 78 mm[Hg] QUALITY ASSURANCE COACH. Ysabel Kisererer QUALITY ASSURANCE COACH-C Work Phone: [facility] 01-14-2025 14:17-0400 Heart rate 69 /min QUALITY ASSURANCE COACH. Ysabel Ungerer QUALITY ASSURANCE COACH-C Work Phone: [facility] 01-14-2025 14:17-0400 Respiratory rate 16 /min QUALITY ASSURANCE COACH. Ysabel Ungerer QUALITY ASSURANCE COACH-C Work Phone: [facility] 01-14-2025 14:17-0400 Systolic blood pressure 146 mm[Hg] QUALITY ASSURANCE COACH. Ysabel Ungerer QUALITY ASSURANCE COACH-C Work Phone: [facility] 01-14-2025 13:12-0400 Body height 154.94 cm QUALITY ASSURANCE COACH. Ysabel Kisererer QUALITY ASSURANCE COACH-C Work Phone: [facility] 01-14-2025 13:12-0400 Body mass index (BMI) [Ratio] 37.5 kg/m2 QUALITY ASSURANCE COACH. Ysabel Ungerer QUALITY ASSURANCE COACH-C Work Phone: [facility] 01-14-2025 13:12-0400 Body weight 90.26 kg QUALITY ASSURANCE COACH. Ysabel Kisererer QUALITY ASSURANCE COACH-C Work Phone: [facility] 01-14-2025 13:12-0400 SaO2% (BldA) [Mass fraction] 97 % QUALITY ASSURANCE COACH. Ysabel Kisererer QUALITY ASSURANCE COACH-C Work Phone: [facility] 01-11-2025 14:43-0400 Diastolic blood pressure 78 mm[Hg] QUALITY ASSURANCE COACH. Ysabel Ungerer QUALITY ASSURANCE COACH-C Work Phone: [facility] 01-11-2025 14:43-0400 Heart rate 77 /min QUALITY ASSURANCE COACH. Ysabel Ungerer QUALITY ASSURANCE COACH-C Work Phone: [facility] 01-11-2025 14:43-0400 Respiratory rate 16 /min QUALITY ASSURANCE COACH. Ysabel Esteban QUALITY ASSURANCE COACH-C Work Phone: [facility] 01-11-2025 14:43-0400 Systolic blood pressure 146 mm[Hg] QUALITY ASSURANCE COACH. Ysabel Esteban QUALITY ASSURANCE COACH-C Work Phone: [facility] 01-11-2025 13:17-0400 SaO2% (BldA) [Mass fraction] 96 % QUALITY ASSURANCE COACH. Ysabel Esteban QUALITY ASSURANCE COACH-C Work Phone: [facility] 01-11-2025 11:11-0400 Body mass index (BMI) [Ratio] 38.86 kg/m2 Jadon Bowlingi DO Work Phone: [facility] 01-11-2025 11:11-0400 Body temperature 97.59 [degF] Jadon Masci DO Work Phone: [facility] 01-11-2025 11:11-0400 Body weight 90.27 kg Jadon Masci DO Work Phone: [facility] 01-11-2025 11:11-0400 Diastolic blood pressure 88 mm[Hg] Jadon Masci DO Work Phone: [facility] 01-11-2025 11:11-0400 Heart rate 68 /min Jadon Masci DO Work Phone: [facility] 01-11-2025 11:11-0400 SaO2% (BldA) [Mass fraction] 98 % Jadon Masci DO Work Phone: [facility] 01-11-2025 11:11-0400 Systolic blood pressure 147 mm[Hg] Jadon Masci DO Work Phone: [facility] 01-09-2025 13:10-0400 Body temperature 97.1 [degF] QUALITY ASSURANCE COACH. Ysabel Esteban QUALITY ASSURANCE COACH-C Work Phone: [facility] 01-09-2025 13:10-0400 Diastolic blood pressure 76 mm[Hg] QUALITY ASSURANCE COACH. Ysabel Esteban QUALITY ASSURANCE COACH-C Work Phone: [facility] 01-09-2025 13:10-0400 Heart rate 73 /min QUALITY ASSURANCE COACH. Ysabel Ungerer QUALITY ASSURANCE COACH-C Work Phone: [facility] 01-09-2025 13:10-0400 Respiratory rate 16 /min QUALITY ASSURANCE COACH. Ysabel Ungerer QUALITY ASSURANCE COACH-C Work Phone: [facility] 01-09-2025 13:10-0400 SaO2% (BldA) [Mass fraction] 98 % QUALITY ASSURANCE COACH. Ysabel Ungerer QUALITY ASSURANCE COACH-C Work Phone: [facility] 01-09-2025 13:10-0400 Systolic blood pressure 140 mm[Hg] QUALITY ASSURANCE COACH. Ysabel Ungerer QUALITY ASSURANCE COACH-C Work Phone: [facility] 01-09-2025 11:26-0400 Body height 154.94 cm QUALITY ASSURANCE COACH. Ysabel Ungerer QUALITY ASSURANCE COACH-C Work Phone: [facility] 01-09-2025 11:26-0400 Body mass index (BMI) [Ratio] 37.5 kg/m2 QUALITY ASSURANCE COACH. Ysabel Ungerer QUALITY ASSURANCE COACH-C Work Phone: [facility] 01-09-2025 11:26-0400 Body weight 90.26 kg QUALITY ASSURANCE COACH. Ysabel Ungerer QUALITY ASSURANCE COACH-C Work Phone: [facility] 01-07-2025 11:55-0400 Diastolic blood pressure 87 mm[Hg] QUALITY ASSURANCE COACH. Ysabel Ungerer QUALITY ASSURANCE COACH-C Work Phone: [facility] 01-07-2025 11:55-0400 Heart rate 73 /min QUALITY ASSURANCE COACH. Ysabel Ungerer QUALITY ASSURANCE COACH-C Work Phone: [facility] 01-07-2025 11:55-0400 Respiratory rate 16 /min QUALITY ASSURANCE COACH. Ysabel Ungerer QUALITY ASSURANCE COACH-C Work Phone: [facility] 01-07-2025 11:55-0400 Systolic blood pressure 144 mm[Hg] QUALITY ASSURANCE COACH. Ysabel Ungerer QUALITY ASSURANCE COACH-C Work Phone: [facility] 01-07-2025 10:50-0400 Body height 154.94 cm QUALITY ASSURANCE COACH. Ysabel Kisererer QUALITY ASSURANCE COACH-C Work Phone: [facility] 01-07-2025 10:50-0400 Body mass index (BMI) [Ratio] 37.5 kg/m2 QUALITY ASSURANCE COACH. Ysabel Kisererer QUALITY ASSURANCE COACH-C Work Phone: [facility] 01-07-2025 10:50-0400 Body temperature 95.9 [degF] QUALITY ASSURANCE COACH. Ysabel Kisererer QUALITY ASSURANCE COACH-C Work Phone: [facility] 01-07-2025 10:50-0400 Body weight 90.26 kg QUALITY ASSURANCE COACH. Ysabel Kisererer QUALITY ASSURANCE COACH-C Work Phone: [facility] 01-07-2025 10:50-0400 SaO2% (BldA) [Mass fraction] 98 % QUALITY ASSURANCE COACH. Ysabel Kisererer QUALITY ASSURANCE COACH-C Work Phone: [facility] 01-02-2025 13:35-0400 Body temperature 97.7 [degF] QUALITY ASSURANCE COACH. Ysabel Kisererer QUALITY ASSURANCE COACH-C Work Phone: [facility] 01-02-2025 13:35-0400 Diastolic blood pressure 78 mm[Hg] QUALITY ASSURANCE COACH. Ysabel Kisererer QUALITY ASSURANCE COACH-C Work Phone: [facility] 01-02-2025 13:35-0400 Heart rate 71 /min QUALITY ASSURANCE COACH. Ysabel Kisererer QUALITY ASSURANCE COACH-C Work Phone: [facility] 01-02-2025 13:35-0400 Respiratory rate 16 /min QUALITY ASSURANCE COACH. Ysabel Kisererer QUALITY ASSURANCE COACH-C Work Phone: [facility] 01-02-2025 13:35-0400 SaO2% (BldA) [Mass fraction] 99 % QUALITY ASSURANCE COACH. Ysabel Kisererer QUALITY ASSURANCE COACH-C Work Phone: [facility] 01-02-2025 13:35-0400 Systolic blood pressure 138 mm[Hg] QUALITY ASSURANCE COACH. Ysabel Ungerer QUALITY ASSURANCE COACH-C Work Phone: [facility] 01-02-2025 12:06-0400 Body height 154.94 cm QUALITY ASSURANCE COACH. Ysabel Ungerer QUALITY ASSURANCE COACH-C Work Phone: [facility] 01-02-2025 12:06-0400 Body mass index (BMI) [Ratio] 37.2 kg/m2 QUALITY ASSURANCE COACH. Ysabel Ungerer QUALITY ASSURANCE COACH-C Work Phone: [facility] 01-02-2025 12:06-0400 Body weight 89.35 kg QUALITY ASSURANCE COACH. Ysabel Ungerer QUALITY ASSURANCE COACH-C Work Phone: [facility] 12-31-2024 12:12-0400 Body temperature 96.1 [degF] QUALITY ASSURANCE COACH. Ysabel Ungerer QUALITY ASSURANCE COACH-C Work Phone: [facility] 12-31-2024 12:12-0400 Diastolic blood pressure 76 mm[Hg] QUALITY ASSURANCE COACH. Ysabel Ungerer QUALITY ASSURANCE COACH-C Work Phone: [facility] 12-31-2024 12:12-0400 Heart rate 68 /min QUALITY ASSURANCE COACH. Ysabel Ungerer QUALITY ASSURANCE COACH-C Work Phone: [facility] 12-31-2024 12:12-0400 Respiratory rate 16 /min QUALITY ASSURANCE COACH. Ysabel Ungerer QUALITY ASSURANCE COACH-C Work Phone: [facility] 12-31-2024 12:12-0400 SaO2% (BldA) [Mass fraction] 98 % QUALITY ASSURANCE COACH. Ysabel Ungerer QUALITY ASSURANCE COACH-C Work Phone: [facility] 12-31-2024 12:12-0400 Systolic blood pressure 151 mm[Hg] QUALITY ASSURANCE COACH. Ysabel Ungerer QUALITY ASSURANCE COACH-C Work Phone: [facility] 12-31-2024 11:07-0400 Body height 154.94 cm QUALITY ASSURANCE COACH. Ysabel Ungerer QUALITY ASSURANCE COACH-C Work Phone: [facility] 12-31-2024 11:07-0400 Body mass index (BMI) [Ratio] 37.2 kg/m2 QUALITY ASSURANCE COACH. Ysabel Kisererer QUALITY ASSURANCE COACH-C Work Phone: [facility] 12-31-2024 11:07-0400 Body weight 89.35 kg QUALITY ASSURANCE COACH. Ysabel Kisererer QUALITY ASSURANCE COACH-C Work Phone: [facility] 12-23-2024 09:00-0400 Body temperature 98.1 [degF] QUALITY ASSURANCE COACH. Ysabelanita Kisererer QUALITY ASSURANCE COACH-C Work Phone: [facility] 12-23-2024 09:00-0400 Diastolic blood pressure 89 mm[Hg] QUALITY ASSURANCE COACH. Ysabel Kisererer QUALITY ASSURANCE COACH-C Work Phone: [facility] 12-23-2024 09:00-0400 Heart rate 77 /min QUALITY ASSURANCE COACH. Ysabel Kisererer QUALITY ASSURANCE COACH-C Work Phone: [facility] 12-23-2024 09:00-0400 Respiratory rate 16 /min QUALITY ASSURANCE COACH. Ysabel Ungerer QUALITY ASSURANCE COACH-C Work Phone: [facility] 12-23-2024 09:00-0400 SaO2% (BldA) [Mass fraction] 99 % QUALITY ASSURANCE COACH. Ysabelanita Kisererer QUALITY ASSURANCE COACH-C Work Phone: [facility] 12-23-2024 09:00-0400 Systolic blood pressure 140 mm[Hg] QUALITY ASSURANCE COACH. Ysabel Kisererer QUALITY ASSURANCE COACH-C Work Phone: [facility] 12-19-2024 11:31-0400 Body height 154.94 cm QUALITY ASSURANCE COACH. Ysabel Rashelerer QUALITY ASSURANCE COACH-C Work Phone: [facility] 12-19-2024 11:31-0400 Body weight 90.49 kg QUALITY ASSURANCE COACH. Ysabel Kisererer QUALITY ASSURANCE COACH-C Work Phone: [facility] 12-18-2024 22:58-0400 Body mass index (BMI) [Ratio] 37.7 kg/m2 QUALITY ASSURANCE COACH. Ysabel Kisererer QUALITY ASSURANCE COACH-C Work Phone: [facility] 12-18-2024 22:00-0400 Diastolic blood pressure 79 mm[Hg] QUALITY ASSURANCE COACH. Ysabel Kisererer QUALITY ASSURANCE COACH-C Work Phone: [facility] 12-18-2024 22:00-0400 Heart rate 96 /min QUALITY ASSURANCE COACH. Ysabel Kisererer QUALITY ASSURANCE COACH-C Work Phone: [facility] 12-18-2024 22:00-0400 Respiratory rate 18 /min QUALITY ASSURANCE COACH. Ysabel Kisererer QUALITY ASSURANCE COACH-C Work Phone: [facility] 12-18-2024 22:00-0400 SaO2% (BldA) [Mass fraction] 99 % QUALITY ASSURANCE COACH. Ysabel Kisererer QUALITY ASSURANCE COACH-C Work Phone: [facility] 12-18-2024 22:00-0400 Systolic blood pressure 150 mm[Hg] QUALITY ASSURANCE COACH. Ysabel Kisererer QUALITY ASSURANCE COACH-C Work Phone: [facility] 12-18-2024 21:35-0400 Body temperature 98 [degF] QUALITY ASSURANCE COACH. Ysabel Kisererer QUALITY ASSURANCE COACH-C Work Phone: [facility] 12-18-2024 16:58-0400 Body mass index (BMI) [Ratio] 33.5 kg/m2 QUALITY ASSURANCE COACH. Ysabel Kisererer QUALITY ASSURANCE COACH-C Work Phone: [facility] 12-18-2024 16:58-0400 Body weight 91.5 kg QUALITY ASSURANCE COACH. Ysabel Kisererer QUALITY ASSURANCE COACH-C Work Phone: [facility] 12-18-2024 16:54-0400 Body height 165.1 cm QUALITY ASSURANCE COACH. Ysabel Kisererer QUALITY ASSURANCE COACH-C Work Phone: [facility] 11-16-2024 13:16-0500 Body temperature 97 [degF] Treatment Wstr Work Phone: [facility] 11-16-2024 13:16-0500 Diastolic blood pressure 83 mm[Hg] Treatment Wstr Work Phone: [facility] 11-16-2024 13:16-0500 Heart rate 73 /min Treatment Wstr Work Phone: [facility] 11-16-2024 13:16-0500 Respiratory rate 18 /min Treatment Wstr Work Phone: [facility] 11-16-2024 13:16-0500 SaO2% (BldA) [Mass fraction] 97 % Treatment Wstr Work Phone: [facility] 11-16-2024 13:16-0500 Systolic blood pressure 153 mm[Hg] Treatment Wstr Work Phone: [facility] 11-15-2024 14:30-0500 Body temperature 98.1 [degF] Treatment Wstr Work Phone: [facility] 11-15-2024 14:30-0500 Diastolic blood pressure 86 mm[Hg] Treatment Wstr Work Phone: [facility] 11-15-2024 14:30-0500 Heart rate 80 /min Treatment Wstr Work Phone: [facility] 11-15-2024 14:30-0500 Respiratory rate 22 /min Treatment Wstr Work Phone: [facility] 11-15-2024 14:30-0500 SaO2% (BldA) [Mass fraction] 97 % Treatment Wstr Work Phone: [facility] 11-15-2024 14:30-0500 Systolic blood pressure 133 mm[Hg] Treatment Wstr Work Phone: [facility] 10-29-2024 15:47-0500 Body height 154.9 cm Melissa Cunningham MD Work Phone: [facility] 10-29-2024 15:47-0500 Body mass index (BMI) [Ratio] 40.06 kg/m2 Melissa Cunningham MD Work Phone: [facility] 10-29-2024 15:47-0500 Body temperature 97 [degF] Melissa Cunningham MD Work Phone: [facility] 10-29-2024 15:47-0500 Body weight 96.16 kg Melissa Cunningham MD Work Phone: [facility] 10-29-2024 15:47-0500 Diastolic blood pressure 98 mm[Hg] Melissa Cunningham MD Work Phone: [facility] 10-29-2024 15:47-0500 Heart rate 94 /min Melissa Cunningham MD Work Phone: [facility] 10-29-2024 15:47-0500 SaO2% (BldA) [Mass fraction] 98 % Melissa Cunningham MD Work Phone: [facility] 10-29-2024 15:47-0500 Systolic blood pressure 150 mm[Hg] Melissa Cunningham MD Work Phone: [facility] 10-11-2024 13:04-0500 Body mass index (BMI) [Ratio] 37.76 kg/m2 Shay Smiley Work Phone: [facility] 10-11-2024 13:04-0500 Body temperature 97.9 [degF] Shay Smiley Work Phone: [facility] 10-11-2024 13:04-0500 Body weight 95.94 kg Shay Smiley Work Phone: [facility] 10-11-2024 13:04-0500 Diastolic blood pressure 92 mm[Hg] Shay Smiley Work Phone: [facility] 10-11-2024 13:04-0500 Heart rate 78 /min Shayelenita Smiley Work Phone: [facility] 10-11-2024 13:04-0500 SaO2% (BldA) [Mass fraction] 96 % Shay Smiley Work Phone: [facility] 10-11-2024 13:04-0500 Systolic blood pressure 150 mm[Hg] Shay Smiley Work Phone: [facility] 09-11-2024 16:01-0500 Body mass index (BMI) [Ratio] 38.47 kg/m2 Jadon Bowlingi DO Work Phone: [facility] 09-11-2024 16:01-0500 Body temperature 98.6 [degF] Jadon Bowlingi DO Work Phone: [facility] 09-11-2024 16:01-0500 Body weight 97.75 kg Jadon Bowlingi DO Work Phone: [facility] 09-11-2024 16:01-0500 Diastolic blood pressure 87 mm[Hg] Jadon Bowlingi DO Work Phone: [facility] 09-11-2024 16:01-0500 Heart rate 87 /min Jadon Bowlingi DO Work Phone: [facility] 09-11-2024 16:01-0500 SaO2% (BldA) [Mass fraction] 99 % Jadon Bowlingi DO Work Phone: [facility] 09-11-2024 16:01-0500 Systolic blood pressure 145 mm[Hg] Jadon Tawnyai DO Work Phone: [facility] 08-23-2024 14:18-0500 Body temperature 98.71 [degF] Treatment Wstr Work Phone: [facility] 08-23-2024 14:18-0500 Diastolic blood pressure 90 mm[Hg] Treatment Wstr Work Phone: [facility] 08-23-2024 14:18-0500 Heart rate 82 /min Treatment Wstr Work Phone: [facility] 08-23-2024 14:18-0500 Respiratory rate 16 /min Treatment Wstr Work Phone: [facility] 08-23-2024 14:18-0500 SaO2% (BldA) [Mass fraction] 97 % Treatment Wstr Work Phone: [facility] 08-23-2024 14:18-0500 Systolic blood pressure 140 mm[Hg] Treatment Wstr Work Phone: [facility] 08-09-2024 13:47-0400 Body mass index (BMI) [Ratio] 37.94 kg/m2 Treatment Wstr Work Phone: [facility] 08-09-2024 13:47-0400 Body temperature 97.3 [degF] Treatment Wstr Work Phone: [facility] 08-09-2024 13:47-0400 Body weight 96.39 kg Treatment Wstr Work Phone: [facility] 08-09-2024 13:47-0400 Diastolic blood pressure 76 mm[Hg] Treatment Wstr Work Phone: [facility] 08-09-2024 13:47-0400 Heart rate 82 /min Treatment Wstr Work Phone: [facility] 08-09-2024 13:47-0400 SaO2% (BldA) [Mass fraction] 98 % Treatment Wstr Work Phone: [facility] 08-09-2024 13:47-0400 Systolic blood pressure 137 mm[Hg] Treatment Wstr Work Phone: [facility] 07-26-2024 13:50-0400 Body mass index (BMI) [Ratio] 37.85 kg/m2 Treatment Wstr Work Phone: [facility] 07-26-2024 13:50-0400 Body temperature 97.11 [degF] Treatment Wstr Work Phone: [facility] 07-26-2024 13:50-0400 Body weight 96.16 kg Treatment Wstr Work Phone: [facility] 07-26-2024 13:50-0400 Diastolic blood pressure 76 mm[Hg] Treatment Wstr Work Phone: [facility] 07-26-2024 13:50-0400 Heart rate 96 /min Treatment Wstr Work Phone: [facility] 07-26-2024 13:50-0400 SaO2% (BldA) [Mass fraction] 98 % Treatment Wstr Work Phone: [facility] 07-26-2024 13:50-0400 Systolic blood pressure 119 mm[Hg] Treatment Wstr Work Phone: [facility] 07-12-2024 13:00-0400 Body height 159.4 cm Treatment Wstr Work Phone: [facility] 07-12-2024 13:00-0400 Body mass index (BMI) [Ratio] 37.58 kg/m2 Treatment Wstr Work Phone: [facility] 07-12-2024 13:00-0400 Body temperature 97.81 [degF] Treatment Wstr Work Phone: [facility] 07-12-2024 13:00-0400 Body weight 95.48 kg Treatment Wstr Work Phone: [facility] 07-12-2024 13:00-0400 Diastolic blood pressure 81 mm[Hg] Treatment Wstr Work Phone: [facility] 07-12-2024 13:00-0400 Heart rate 74 /min Treatment Wstr Work Phone: [facility] 07-12-2024 13:00-0400 Respiratory rate 14 /min Treatment Wstr Work Phone: [facility] 07-12-2024 13:00-0400 SaO2% (BldA) [Mass fraction] 96 % Treatment Wstr Work Phone: [facility] 07-12-2024 13:00-0400 Systolic blood pressure 130 mm[Hg] Treatment Wstr Work Phone: [facility] 06-21-2024 09:45-0400 Body mass index (BMI) [Ratio] 39.36 kg/m2 Jadon Masci DO Work Phone: [facility] 06-21-2024 09:45-0400 Body temperature 97.7 [degF] Jadon Bowlingi DO Work Phone: [facility] 06-21-2024 09:45-0400 Body weight 94.58 kg Jadon Masci DO Work Phone: [facility] 06-21-2024 09:45-0400 Diastolic blood pressure 88 mm[Hg] Jadon Bowlingi DO Work Phone: [facility] 06-21-2024 09:45-0400 Heart rate 84 /min Jadon Bowlingi DO Work Phone: [facility] 06-21-2024 09:45-0400 SaO2% (BldA) [Mass fraction] 98 % Jadon Bowlingi DO Work Phone: [facility] 06-21-2024 09:45-0400 Systolic blood pressure 134 mm[Hg] Jadon Bowlingi DO Work Phone: [facility] 03-22-2024 11:09-0400 Body mass index (BMI) [Ratio] 39.76 kg/m2 Saba Roa HUMANITIES DEPARTMENT CHAIR.DEVELOPMENT COACH Work Phone: [facility] 03-22-2024 11:09-0400 Body temperature 97.3 [degF] Saba Roa HUMANITIES DEPARTMENT CHAIR.DEVELOPMENT COACH Work Phone: [facility] 03-22-2024 11:09-0400 Body weight 95.53 kg Saba Roa HUMANITIES DEPARTMENT CHAIR.DEVELOPMENT COACH Work Phone: [facility] 03-22-2024 11:09-0400 Diastolic blood pressure 96 mm[Hg] Saba Roa HUMANITIES DEPARTMENT CHAIR.DEVELOPMENT COACH Work Phone: [facility] 03-22-2024 11:09-0400 Heart rate 74 /min Saba Roa HUMANITIES DEPARTMENT CHAIR.DEVELOPMENT COACH Work Phone: [facility] 03-22-2024 11:09-0400 SaO2% (BldA) [Mass fraction] 100 % Saba Roa HUMANITIES DEPARTMENT CHAIR.DEVELOPMENT COACH Work Phone: [facility] 03-22-2024 11:09-0400 Systolic blood pressure 151 mm[Hg] Saba Roa HUMANITIES DEPARTMENT CHAIR.DEVELOPMENT COACH Work Phone: [facility] 12-07-2023 15:12-0500 Body temperature 97.81 [degF] Bairon Heath MD Work Phone: [facility] 12-07-2023 15:12-0500 Body weight 93.89 kg Bairon Heath MD Work Phone: [facility] 12-07-2023 15:12-0500 Diastolic blood pressure 88 mm[Hg] Bairon Heath MD Work Phone: [facility] 12-07-2023 15:12-0500 Heart rate 88 /min Bairon Heath MD Work Phone: [facility] 12-07-2023 15:12-0500 SaO2% (BldA) [Mass fraction] 97 % Bairon Heath MD Work Phone: [facility] 12-07-2023 15:12-0500 Systolic blood pressure 148 mm[Hg] Bairon Heath MD Work Phone: [facility] 08-22-2023 14:22-0500 Body temperature 97.39 [degF] Bairon Heath MD Work Phone: [facility] 08-22-2023 14:22-0500 Body weight 90.95 kg Barion Heath MD Work Phone: [facility] 08-22-2023 14:22-0500 Diastolic blood pressure 83 mm[Hg] Biaron Heath MD Work Phone: [facility] 08-22-2023 14:22-0500 Heart rate 77 /min Bairon Heath MD Work Phone: [facility] 08-22-2023 14:22-0500 SaO2% (BldA) [Mass fraction] 96 % Bairon Heath MD Work Phone: [facility] 08-22-2023 14:22-0500 Systolic blood pressure 134 mm[Hg] Bairon Heath MD Work Phone: [facility] 05-30-2023 15:11-0400 Body height 155 cm Bairon Heath MD Work Phone: [facility] 05-30-2023 15:11-0400 Body temperature 97.7 [degF] Bairon Heath MD Work Phone: [facility] 05-30-2023 15:11-0400 Body weight 90.72 kg Bairon Heath MD Work Phone: [facility] 05-30-2023 15:11-0400 Diastolic blood pressure 82 mm[Hg] Bairon Heath MD Work Phone: [facility] 05-30-2023 15:11-0400 Heart rate 83 /min Bairon Heath MD Work Phone: [facility] 05-30-2023 15:11-0400 SaO2% (BldA) [Mass fraction] 96 % Bairon Heath MD Work Phone: [facility] 05-30-2023 15:11-0400 Systolic blood pressure 134 mm[Hg] Bairon Heath MD Work Phone: [facility] 03-22-2023 09:34-0400 Body height 154.9 cm Melissa Cunnignham MD Work Phone: [facility] 03-22-2023 09:34-0400 Body temperature 97.5 [degF] Melissa Cunningham MD Work Phone: [facility] 03-22-2023 09:34-0400 Body weight 93.35 kg Melissa Cunningham MD Work Phone: [facility] 03-22-2023 09:34-0400 Diastolic blood pressure 82 mm[Hg] Melissa Cunningham MD Work Phone: [facility] 03-22-2023 09:34-0400 Heart rate 82 /min Melissa Cunningham MD Work Phone: [facility] 03-22-2023 09:34-0400 SaO2% (BldA) [Mass fraction] 97 % Melissa Cunningham MD Work Phone: [facility] 03-22-2023 09:34-0400 Systolic blood pressure 118 mm[Hg] Melissa Cunningham MD Work Phone: [facility] 03-08-2023 14:38-0400 Body temperature 97.9 [degF] Jadon Styles DO Work Phone: [facility] 03-08-2023 14:38-0400 Body weight 93.67 kg Jadon Bowlingi DO Work Phone: [facility] 03-08-2023 14:38-0400 Diastolic blood pressure 83 mm[Hg] Jadon Masci DO Work Phone: [facility] 03-08-2023 14:38-0400 Heart rate 83 /min Jadon Masci DO Work Phone: [facility] 03-08-2023 14:38-0400 SaO2% (BldA) [Mass fraction] 96 % Jadon Bowlingi DO Work Phone: [facility] 03-08-2023 14:38-0400 Systolic blood pressure 123 mm[Hg] Jadon Tawnyai DO Work Phone: [facility] 03-03-2023 14:05-0400 Diastolic blood pressure 70 mm[Hg] Melissa Cunningham MD Work Phone: [facility] 03-03-2023 14:05-0400 Heart rate 78 /min Melissa Cunningham MD Work Phone: [facility] 03-03-2023 14:05-0400 Respiratory rate 16 /min Melissa Cunningham MD Work Phone: [facility] 03-03-2023 14:05-0400 SaO2% (BldA) [Mass fraction] 94 % Melissa Cunningham MD Work Phone: [facility] 03-03-2023 14:05-0400 Systolic blood pressure 124 mm[Hg] Melissa Cunningham MD Work Phone: [facility] 03-03-2023 12:55-0400 Body temperature 97 [degF] Melissa Cunningham MD Work Phone: [facility] 12-14-2022 09:06-0500 Body height 156.5 cm Ghislaine Hutchinson MD Work Phone: [facility] 12-14-2022 09:06-0500 Body temperature 97.2 [degF] Ghislaine Hutchinson MD Work Phone: [facility] 12-14-2022 09:06-0500 Body weight 96.39 kg Ghislaine Hutchinson MD Work Phone: [facility] 12-14-2022 09:06-0500 Diastolic blood pressure 76 mm[Hg] Ghislaine Hutchinson MD Work Phone: [facility] 12-14-2022 09:06-0500 Heart rate 80 /min Ghislaine Hutchinson MD Work Phone: [facility] 12-14-2022 09:06-0500 SaO2% (BldA) [Mass fraction] 97 % Ghislaine Hutchinson MD Work Phone: [facility] 12-14-2022 09:06-0500 Systolic blood pressure 118 mm[Hg] Ghislaine Hutchinson MD Work Phone: [facility] 09-21-2022 10:00-0500 Body height 156 cm Treatment Wstr Work Phone: [facility] 09-21-2022 09:03-0500 Body temperature 97.5 [degF] Dayana Stewart MD Work Phone: [facility] 09-21-2022 09:03-0500 Body weight 92.31 kg Dayana Stewart MD Work Phone: [facility] 09-21-2022 09:03-0500 Diastolic blood pressure 79 mm[Hg] Dayana Stewart MD Work Phone: [facility] 09-21-2022 09:03-0500 Heart rate 77 /min Dayana Stewart MD Work Phone: [facility] 09-21-2022 09:03-0500 SaO2% (BldA) [Mass fraction] 96 % Dayana Stewart MD Work Phone: [facility] 09-21-2022 09:03-0500 Systolic blood pressure 117 mm[Hg] Dayana Stewart MD Work Phone: [facility] 07-26-2022 09:16-0400 Body height 165.[address] Pia Gambino Work Phone: [facility] Work Phone: 07-26-2022 09:16-0400 Body mass index (BMI) [Ratio] 32.5 kg/m2 Dr. Pia Gambino Work Phone: [facility] Work Phone: 07-26-2022 09:16-0400 Body temperature 98.2 [degF] Dr. Pia Gambino Work Phone: [facility] Work Phone: 07-26-2022 09:16-0400 Body weight 88.[address] Pia Gambino Work Phone: [facility] Work Phone: 07-26-2022 09:16-0400 Diastolic blood pressure 84 mm[Hg] Dr. Pia Gambino Work Phone: [facility] Work Phone: 07-26-2022 09:16-0400 Heart rate 73 /min Dr. Pia Gambino Work Phone: [facility] Work Phone: 07-26-2022 09:16-0400 Respiratory rate 14 /min Dr. Pia Gambino Work Phone: [facility] Work Phone: 07-26-2022 09:16-0400 SaO2% (BldA) [Mass fraction] 96 % Dr. Pia Gambino Work Phone: [facility] Work Phone: 07-26-2022 09:16-0400 Systolic blood pressure 122 mm[Hg] Dr. Pia Gambino Work Phone: [facility] Work Phone: 06-08-2022 10:07-0400 Body mass index (BMI) [Ratio] 28.6 kg/m2 Dr. Pia Gambino Work Phone: [facility] Work Phone: 06-08-2022 10:07-0400 Body temperature 98.7 [degF] Dr. Pia Gambino Work Phone: [facility] Work Phone: 06-08-2022 10:07-0400 Body weight 78.[address] Pia Gambino Work Phone: [facility] Work Phone: 06-08-2022 10:07-0400 Diastolic blood pressure 88 mm[Hg] Dr. Pia Gambino Work Phone: [facility] Work Phone: 06-08-2022 10:07-0400 Heart rate 82 /min Dr. Pia Gambino Work Phone: [facility] Work Phone: 06-08-2022 10:07-0400 Respiratory rate 14 /min Dr. Pia Gambino Work Phone: [facility] Work Phone: 06-08-2022 10:07-0400 SaO2% (BldA) [Mass fraction] 99 % Dr. Pia Gambino Work Phone: [facility] Work Phone: 06-08-2022 10:07-0400 Systolic blood pressure 124 mm[Hg] Dr. Pia Gambino Work Phone: [facility] Work Phone: 04-16-2022 13:56-0400 Body temperature 97.7 [degF] Dr. Pia Gambino Work Phone: [facility] Work Phone: 04-16-2022 13:56-0400 Diastolic blood pressure 82 mm[Hg] Dr. Pia Gambino Work Phone: [facility] Work Phone: 04-16-2022 13:56-0400 Heart rate 91 /min Dr. Pia Gambino Work Phone: [facility] Work Phone: 04-16-2022 13:56-0400 Respiratory rate 16 /min Dr. Pia Gambino Work Phone: [facility] Work Phone: 04-16-2022 13:56-0400 SaO2% (BldA) [Mass fraction] 96 % Dr. Pia Gambino Work Phone: [facility] Work Phone: 04-16-2022 13:56-0400 Systolic blood pressure 124 mm[Hg] Dr. Pia Gambino Work Phone: [facility] Work Phone: 03-18-2022 14:51-0400 Body temperature 97.9 [degF] Dayana Stewart MD Work Phone: [facility] 03-18-2022 14:51-0400 Body weight 80.97 kg Dayana Stewart MD Work Phone: [facility] 02-22-2017 07:47-0400 BMI (Body Mass Index) 32.88 kg/m2 Nate Corona PA-C [facility] Work Phone: 02-22-2017 07:47-0400 Body Temperature 98 [degF] Nate NURC [facility] Work Phone: 02-22-2017 07:47-0400 BP Diastolic 80 mm[Hg] Nate Corona PA-C [facility] Work Phone: 02-22-2017 07:47-0400 BP Systolic 124 mm[Hg] Nate Corona PA-C [facility] Work Phone: 02-22-2017 07:47-0400 Height 165.1 cm Nate Corona PA-C [facility] Work Phone: 02-22-2017 07:47-0400 Pulse (Heart Rate) 78 /min Nate Corona NAEEM [facility] Work Phone: 02-22-2017 07:47-0400 Pulse Oximetry 98 % Nate Corona MARIONMeriRc [facility] Work Phone: 02-22-2017 07:47-0400 Respiratory Rate 14 /min Nate Corona MARIONLea [facility] Work Phone: 02-22-2017 07:47-0400 Weight 89.63 kg Nate Corona MARIONMeriRc [facility] Work Phone: Encounters Encounter Date Encounter Type Care Provider Facility Start: 07-09-2025 End: 07-09-2025 Patient encounter procedure Ysabel Esteban QUALITY ASSURANCE COACH-C -[facility] Work Phone: Start: 07-09-2025 End: 07-09-2025 ambulatory Ysabel Esteban Facility:[facility] Start: 07-05-2025 End: 07-05-2025 Patient encounter procedure Ysabel Esteban QUALITY ASSURANCE COACH-C -[facility] Work Phone: Start: 07-05-2025 End: 07-05-2025 ambulatory Elvi Ataxion PA-C Work Phone: -[facility] Start: 07-02-2025 End: 07-02-2025 Patient encounter procedure Shade Madrigal [facility] Work Phone: Start: 07-02-2025 End: 07-02-2025 ambulatory SkyBulls PA-C Work Phone: [facility] Start: 06-26-2025 End: 06-26-2025 Office outpatient visit 25 minutes Jadon Styles DO Work Phone: Hematology/Oncology Comment on above: Multiple myeloma not having achieved remission (HCC) (Primary Dx) Start: 06-26-2025 End: 06-26-2025 ambulatory Treatment Rm 4 [facility] Work Phone: Hematology/Oncology Comment on above: Multiple myeloma not having achieved remission (HCC) (Primary Dx) Multiple myeloma not having achieved remission (HCC) Start: 06-26-2025 End: 06-26-2025 ambulatory [facility] Facility:[facility] Start: 06-18-2025 End: 06-18-2025 ambulatory Jadon Styles DO Work Phone: Hematology/Oncology Comment on above: Headache Start: 06-14-2025 End: 06-14-2025 Refill Jadon Styles DO Work Phone: Hematology/Oncology Comment on above: Refill Request Pepcid refill Multiple myeloma not having achieved remission (HCC) (Primary Dx); Chemotherapy induced nausea and vomiting Start: 06-13-2025 End: 06-13-2025 ambulatory Jadon Styles DO Work Phone: Hematology/Oncology Comment on above: Cancer pill Start: 06-12-2025 End: 06-12-2025 Patient encounter procedure Saba Roa APRN.DEVELOPMENT COACH Work Phone: Hematology/Oncology Start: 06-12-2025 End: 06-12-2025 ambulatory Lab/Port [facility] Work Phone: Hematology/Oncology Comment on above: Multiple myeloma not having achieved remission (HCC) (Primary Dx) Multiple myeloma not having achieved remission (HCC) (Primary Dx); Chemotherapy induced nausea and vomiting Start: 06-11-2025 End: 06-11-2025 Refill Jadon Styles DO Work Phone: Hematology/Oncology Comment on above: Refill Request Start: 06-07-2025 End: 06-11-2025 Telephone encounter Jadon Styles DO Work Phone: Hematology/Oncology Comment on above: Results Start: 06-07-2025 End: 06-07-2025 ambulatory Treatment Rm 15 [facility] Work Phone: Hematology/Oncology Comment on above: Multiple myeloma not having achieved remission (HCC) (Primary Dx); Chemotherapy induced nausea and vomiting Start: 06-03-2025 End: 06-03-2025 ambulatory Treatment Rm 15 [facility] Work Phone: Hematology/Oncology Comment on above: Multiple myeloma not having achieved remission (HCC) (Primary Dx); Chemotherapy induced nausea and vomiting Start: 05-31-2025 End: 05-31-2025 Chart abstracting Kavon Uriarte RN Hematology/Oncology Comment on above: Research ([id number] Conse nt) Start: 05-31-2025 End: 05-31-2025 ambulatory Treatment Rm 14 [facility] Work Phone: Hematology/Oncology Comment on above: Multiple myeloma not having achieved remission (HCC) (Primary Dx); Chemotherapy induced nausea and vomiting Start: 05-29-2025 End: 05-29-2025 Patient encounter procedure Saba Roa APRN.DEVELOPMENT COACH Work Phone: Hematology/Oncology Start: 05-29-2025 End: 05-29-2025 ambulatory Lab/Port [facility] Work Phone: Hematology/Oncology Comment on above: Multiple myeloma not having achieved remission (HCC) (Primary Dx) Start: 05-27-2025 End: 05-27-2025 ambulatory Treatment Rm 15 [facility] Work Phone: Hematology/Oncology Comment on above: Multiple myeloma not having achieved remission (HCC) (Primary Dx); Chemotherapy induced nausea and vomiting Start: 05-24-2025 End: 05-24-2025 Telephone encounter Jadon Styles DO Work Phone: Hematology/Oncology Comment on above: Appointment Start: 05-24-2025 End: 05-24-2025 ambulatory Treatment Rm 14 [facility] Work Phone: Hematology/Oncology Comment on above: Multiple myeloma not having achieved remission (HCC) (Primary Dx); Chemotherapy induced nausea and vomiting Start: 05-23-2025 End: 05-27-2025 ambulatory Jadon Styles DO Work Phone: Hematology/Oncology Comment on above: Fatigue Start: 05-22-2025 End: 05-22-2025 Follow-up encounter Jadon Styles DO Work Phone: Hematology/Oncology Start: 05-22-2025 End: 05-22-2025 ambulatory Treatment Rm 15 [facility] Work Phone: Hematology/Oncology Comment on above: Multiple myeloma not having achieved remission (HCC) (Primary Dx); Chemotherapy induced nausea and vomiting Start: 05-21-2025 End: 05-23-2025 ambulatory Jadon Styles DO Work Phone: Hematology/Oncology Comment on above: Test results Start: 05-20-2025 End: 05-20-2025 ambulatory Treatment Rm 15 [facility] [employer] Work Phone: Hematology/Oncology Comment on above: Multiple myeloma not having achieved remission (HCC) (Primary Dx); Chemotherapy induced nausea and vomiting Start: 05-20-2025 End: 05-20-2025 Subsequent hospital visit by physician [facility] (I-Stat/1.5t) Work Phone: Radiology Comment on above: Multiple myeloma not having achieved remission (HCC) [C90.00] Start: 05-17-2025 End: 05-17-2025 ambulatory [facility] Facility:[facility] Start: 05-15-2025 End: 05-15-2025 ambulatory JADON Jcaobson RAQUEL Facility:[facility] Start: 05-15-2025 End: 05-15-2025 ambulatory [facility] Facility:[facility] Start: 05-10-2025 End: 05-10-2025 ambulatory Treatment Rm 14 [facility] [employer] Work Phone: Hematology/Oncology Comment on above: Multiple myeloma not having achieved remission (HCC) (Primary Dx); Chemotherapy induced nausea and vomiting Start: 05-08-2025 End: 05-08-2025 ambulatory Treatment Rm 16 [facility] [employer] Work Phone: Hematology/Oncology Comment on above: Multiple myeloma not having achieved remission (HCC) (Primary Dx); Chemotherapy induced nausea and vomiting Start: 05-06-2025 End: 05-06-2025 ambulatory Treatment Rm 14 [facility] [employer] Work Phone: Hematology/Oncology Comment on above: Multiple myeloma not having achieved remission (HCC) (Primary Dx); Chemotherapy induced nausea and vomiting Start: 05-02-2025 End: 05-02-2025 Subsequent hospital visit by physician [facility] (I-Stat/1.5t) Work Phone: Radiology Comment on above: Multiple myeloma not having achieved remission (HCC) [C90.00] Start: 05-02-2025 End: 05-02-2025 ambulatory Lab/Port [facility] Work Phone: Hematology/Oncology Comment on above: Multiple myeloma not having achieved remission (HCC) (Primary Dx) Multiple myeloma not having achieved remission (HCC) (Primary Dx); Chemotherapy induced nausea and vomiting Start: 04-30-2025 End: 05-01-2025 E-mail encounter from caregiver [facility] Radiology Start: 04-30-2025 End: 05-01-2025 Patient encounter procedure [facility] Radiology Comment on above: please fill out form for upcoming appointment Start: 04-30-2025 End: 05-01-2025 Telephone encounter Jadon Styles DO Work Phone: Hematology/Oncology Comment on above: Appointment Patient Update Start: 04-25-2025 End: 04-25-2025 Patient encounter procedure Saba Roa APRN.DEVELOPMENT COACH Work Phone: Hematology/Oncology Start: 04-25-2025 End: 04-25-2025 ambulatory Lab/Port [facility] Work Phone: Hematology/Oncology Comment on above: Multiple myeloma not having achieved remission (HCC) Chemotherapy induced nausea and vomiting (Primary Dx); Multiple myeloma not having achieved remission (HCC) Start: 04-24-2025 End: 04-24-2025 ambulatory Treatment Rm 16 [facility] Work Phone: Hematology/Oncology Comment on above: Multiple myeloma not having achieved remission (HCC) (Primary Dx); Chemotherapy induced nausea and vomiting Start: 04-22-2025 End: 04-22-2025 ambulatory Treatment Rm 14 [facility] Work Phone: Hematology/Oncology Comment on above: Multiple myeloma not having achieved remission (HCC) (Primary Dx); Chemotherapy induced nausea and vomiting Start: 04-19-2025 End: 04-19-2025 ambulatory Treatment Rm 14 [facility] Work Phone: Hematology/Oncology Comment on above: Multiple myeloma not having achieved remission (HCC) (Primary Dx); Chemotherapy induced nausea and vomiting Start: 04-17-2025 End: 04-17-2025 ambulatory Treatment Rm 1 [facility] [employer] Work Phone: Hematology/Oncology Comment on above: Multiple myeloma not having achieved remission (HCC) (Primary Dx); Chemotherapy induced nausea and vomiting Start: 04-15-2025 End: 04-15-2025 ambulatory Treatment Rm 16 [facility] [employer] Work Phone: Hematology/Oncology Comment on above: Multiple myeloma not having achieved remission (HCC) (Primary Dx); Chemotherapy induced nausea and vomiting Start: 04-11-2025 End: 04-11-2025 ambulatory Treatment Rm 14 [facility] [employer] Work Phone: Hematology/Oncology Comment on above: Multiple myeloma not having achieved remission (HCC) (Primary Dx); Chemotherapy induced nausea and vomiting Start: 04-10-2025 End: 04-10-2025 ambulatory Treatment Rm 17 [facility] [employer] Work Phone: Hematology/Oncology Comment on above: Multiple myeloma not having achieved remission (HCC) (Primary Dx); Chemotherapy induced nausea and vomiting Start: 04-09-2025 ambulatory JADON STYLES [facility] Start: 04-09-2025 End: 04-09-2025 Subsequent hospital visit by physician Injection [facility] [place] [facility] Comment on above: Multiple myeloma not having achieved remission (HCC) [C90.00] Start: 04-08-2025 End: 04-08-2025 ambulatory Treatment Rm 16 [facility] [employer] Work Phone: Hematology/Oncology Comment on above: Multiple myeloma not having achieved remission (HCC) (Primary Dx); Chemotherapy induced nausea and vomiting Start: 04-05-2025 End: 04-23-2025 Telephone encounter Jadon Styles DO Work Phone: Hematology/Oncology Start: 04-05-2025 End: 04-05-2025 ambulatory Treatment Rm 14 [facility] [employer] Work Phone: Hematology/Oncology Comment on above: Multiple myeloma not having achieved remission (HCC) (Primary Dx); Chemotherapy induced nausea and vomiting Start: 04-03-2025 End: 04-03-2025 Patient encounter procedure Saba Roa DEVELOPMENT COACH Work Phone: Hematology/Oncology Start: 04-03-2025 End: 04-03-2025 ambulatory Lab/Port [facility] Work Phone: Hematology/Oncology Comment on above: Multiple myeloma not having achieved remission (HCC) (Primary Dx) Multiple myeloma not having achieved remission (HCC) (Primary Dx); Chemotherapy induced nausea and vomiting Start: 04-02-2025 End: 04-08-2025 Orders Only Jadon Styles DO Work Phone: Hematology/Oncology Comment on above: Multiple myeloma not having achieved remission (HCC) (Primary Dx) Viri Start: 04-01-2025 End: 04-03-2025 Telephone encounter Jadon Styles DO Work Phone: Hematology/Oncology Comment on above: Results Start: 04-01-2025 End: 04-01-2025 ambulatory Treatment Rm 15 [facility] Work Phone: Hematology/Oncology Comment on above: Multiple myeloma not having achieved remission (HCC) (Primary Dx); Chemotherapy induced nausea and vomiting Start: 03-29-2025 End: 03-29-2025 ambulatory Treatment Rm 16 [facility] [employer] Work Phone: Hematology/Oncology Comment on above: Multiple myeloma not having achieved remission (HCC) (Primary Dx); Chemotherapy induced nausea and vomiting Start: 03-27-2025 End: 03-27-2025 ambulatory Treatment Rm 15 [facility] Work Phone: Hematology/Oncology Comment on above: Multiple myeloma not having achieved remission (HCC) (Primary Dx); Chemotherapy induced nausea and vomiting Start: 03-25-2025 End: 03-25-2025 ambulatory Treatment Rm 14 [facility] Work Phone: Hematology/Oncology Comment on above: Multiple myeloma not having achieved remission (HCC) (Primary Dx); Chemotherapy induced nausea and vomiting Start: 03-21-2025 End: 03-21-2025 ambulatory Treatment Rm 2 [facility] [employer] Work Phone: Hematology/Oncology Comment on above: Pancytopenia due to chemotherapy (Primary Dx); Multiple myeloma not having achieved remission (HCC); Chemotherapy induced nausea and vomiting Start: 03-20-2025 End: 03-22-2025 Telephone encounter Jadon Styles DO Work Phone: Hematology/Oncology Comment on above: Results Start: 03-20-2025 End: 03-20-2025 ambulatory Treatment Rm 14 [facility] [employer] Work Phone: Hematology/Oncology Comment on above: Multiple myeloma not having achieved remission (HCC) (Primary Dx); Chemotherapy induced nausea and vomiting Start: 03-18-2025 End: 03-18-2025 ambulatory Treatment Rm 15 [facility] [employer] Work Phone: Hematology/Oncology Comment on above: Multiple myeloma not having achieved remission (HCC) (Primary Dx); Chemotherapy induced nausea and vomiting Start: 03-15-2025 End: 03-15-2025 Office outpatient visit 25 minutes Jadon Styles DO Work Phone: Hematology/Oncology Comment on above: Multiple myeloma not having achieved remission (HCC) (Primary Dx); Chemotherapy induced nausea and vomiting Start: 03-15-2025 End: 03-15-2025 ambulatory Lab/Port [facility] [employer] Work Phone: Hematology/Oncology Comment on above: Multiple myeloma not having achieved remission (HCC) Multiple myeloma not having achieved remission (HCC) (Primary Dx); Chemotherapy induced nausea and vomiting Start: 03-11-2025 End: 03-11-2025 Refill Jadon Styles DO Work Phone: Hematology/Oncology Comment on above: Refill Request Start: 03-11-2025 End: 03-11-2025 ambulatory Treatment Rm 14 [facility] [employer] Work Phone: Hematology/Oncology Comment on above: Multiple myeloma not having achieved remission (HCC) (Primary Dx); Chemotherapy induced nausea and vomiting Start: 03-08-2025 End: 03-08-2025 ambulatory Treatment Rm 3 [facility] [employer] Work Phone: Hematology/Oncology Comment on above: Multiple myeloma not having achieved remission (HCC) (Primary Dx); Chemotherapy induced nausea and vomiting Start: 03-05-2025 End: 03-05-2025 ambulatory Treatment Rm 15 [facility] [employer] Work Phone: Hematology/Oncology Comment on above: Multiple myeloma not having achieved remission (HCC) (Primary Dx); Chemotherapy induced nausea and vomiting Start: 03-05-2025 End: 03-11-2025 Telephone encounter Jadon Styles DO Work Phone: Hematology/Oncology Comment on above: Patient Update Start: 03-01-2025 End: 03-01-2025 ambulatory [facility] Facility:[facility] Start: 02-27-2025 End: 02-27-2025 ambulatory [facility] Facility:[facility] Start: 02-25-2025 End: 02-25-2025 Telephone encounter Jadon Styles DO Work Phone: Hematology/Oncology Comment on above: Medication Problem Start: 02-25-2025 End: 02-25-2025 ambulatory Treatment 14 [facility] [employer] Work Phone: Hematology/Oncology Comment on above: Multiple myeloma not having achieved remission (HCC) (Primary Dx); Chemotherapy induced nausea and vomiting Start: 02-22-2025 End: 02-22-2025 Office outpatient visit 25 minutes Jadon Styles DO Work Phone: Hematology/Oncology Comment on above: Multiple myeloma not having achieved remission (HCC) (Primary Dx); Acute bronchitis, unspecified organism; Other pneumonia, unspecified organism Start: 02-22-2025 End: 02-22-2025 ambulatory Lab/Port [facility] [employer] Work Phone: Hematology/Oncology Comment on above: Multiple myeloma not having achieved remission (HCC) Multiple myeloma not having achieved remission (HCC) (Primary Dx); Chemotherapy induced nausea and vomiting; Other pneumonia, unspecified organism Start: 02-21-2025 End: 02-21-2025 Telephone encounter Jadon Styles DO Work Phone: Hematology/Oncology Comment on above: Appointment Start: 02-20-2025 End: 02-20-2025 Patient encounter procedure Shade Madrigal [facility] Work Phone: Start: 02-20-2025 End: 02-20-[address] Surjit Santizo MD Work Phone: [facility] Work Phone: Comment on above: Multiple myeloma not having achieved remission (HCC) (Primary Dx); Chemotherapy induced nausea and vomiting Start: 02-20-2025 End: 02-21-2025 Telephone encounter Jadon Styles DO Work Phone: Hematology/Oncology Comment on above: Patient Question Appointment Start: 02-20-2025 End: 02-20-2025 ambulatory [facility] Facility:[facility] Start: 02-18-2025 End: 02-18-2025 Telephone encounter Jadon Styles DO Work Phone: Hematology/Oncology Start: 02-18-2025 End: 02-18-2025 Emergency department patient visit Dr. Surjit Santizo MD Work Phone: -Emergency Department Work Phone: Start: 02-15-2025 End: 02-18-2025 Telephone encounter Jadon Styles DO Work Phone: Hematology/Oncology Start: 02-15-2025 End: 02-15-2025 ambulatory Treatment Rm 5 [facility] Work Phone: Hematology/Oncology Comment on above: Chemotherapy induced nausea and vomiting (Primary Dx); Multiple myeloma not having achieved remission (HCC) Start: 02-13-2025 End: 02-13-2025 ambulatory Treatment Rm 14 [facility] Work Phone: Hematology/Oncology Comment on above: Multiple myeloma not having achieved remission (HCC) (Primary Dx); Chemotherapy induced nausea and vomiting Start: 02-11-2025 End: 02-11-2025 ambulatory Treatment Rm 14 [facility] Work Phone: Hematology/Oncology Comment on above: Multiple myeloma not having achieved remission (HCC) (Primary Dx); Chemotherapy induced nausea and vomiting Start: 02-08-2025 End: 02-08-2025 ambulatory Treatment Rm 4 [facility] Work Phone: Hematology/Oncology Comment on above: Multiple myeloma not having achieved remission (HCC) (Primary Dx); Chemotherapy induced nausea and vomiting Start: 02-06-2025 End: 02-06-2025 ambulatory Treatment Rm 16 [facility] Work Phone: Hematology/Oncology Comment on above: Multiple myeloma not having achieved remission (HCC) (Primary Dx); Chemotherapy induced nausea and vomiting Start: 02-04-2025 End: 02-04-2025 ambulatory Treatment Rm 14 [facility] Work Phone: Hematology/Oncology Comment on above: Multiple myeloma not having achieved remission (HCC) (Primary Dx); Chemotherapy induced nausea and vomiting Start: 02-01-2025 ambulatory [facility] Facility:[facility] Start: 02-01-2025 End: 02-01-2025 ambulatory [facility] Facility:[facility] Start: 01-30-2025 End: 01-30-[address] Tiera Miles MD -Medical Out Work Phone: Start: 01-30-2025 End: 01-30-2025 ambulatory Tiera Ginger Facility:[facility] Start: 01-29-2025 End: 01-29-2025 Telephone encounter Heather Cuevas RN Hematology/Oncology Comment on above: [place] Erector - O ther (C1D1 Post Treatment Call (Darzalex) ) Start: 01-28-2025 End: 01-28-[address] Tiera Miles MD -Medical Out Work Phone: Start: 01-28-2025 End: 01-28-2025 ambulatory Tiera Miles Facility:[facility] Start: 01-25-2025 End: 01-25-2025 Emergency department patient visit CIELO. Ysabel Esteban QUALITY ASSURANCE COACH-C Work Phone: -Emergency Department Work Phone: Start: 01-25-2025 End: 01-28-2025 Telephone encounter Heather Cuevas RN Hematology/Oncology Comment on above: [place] Erector - O ther (Emla cream ) Patient Question Start: 01-25-2025 End: 01-25-2025 ambulatory Treatment Rm 9 [facility] Work Phone: Hematology/Oncology Comment on above: Multiple myeloma not having achieved remission (HCC) (Primary Dx) Start: 01-24-2025 End: 01-24-2025 ambulatory SANDRA BRADLEY Facility[facility] Start: 01-23-2025 End: 01-23-[address] Tiera Miles MD -Medical Out Work Phone: Start: 01-23-2025 End: 01-23-2025 ambulatory NP. Ysabel Esteban QUALITY ASSURANCE COACH-C Work Phone: [facility] Work Phone: Start: 01-22-2025 End: 01-22-2025 ambulatory Anita Brannon MD Work Phone: [facility] Comment on above: MM back Start: 01-21-2025 End: 01-21-2025 Telephone encounter Heather Cuevas lightning protection installer/Oncology Comment on above: Appointment Start: 01-21-2025 End: 01-21-[address] Tiera Miles MD -Medical Out Work Phone: Start: 01-21-2025 End: 01-21-2025 ambulatory NP. Ysabel Esteban QUALITY ASSURANCE COACH-C Work Phone: [facility] Work Phone: Start: 01-18-2025 ambulatory Celso Hernández Facility :[facility] Start: 01-18-2025 Non-patient / Non-visit Celso Petit nd DO -[facility] Start: 01-18-2025 End: 01-18-2025 Admission to same day surgery center Celso Hernández DO -Endoscopy Work Phone: Start: 01-18-2025 End: 01-18-2025 ambulatory NP. Ysabel Esteban QUALITY ASSURANCE COACH-C Work Phone: [facility] Work Phone: Start: 01-18-2025 End: 01-18-[address] Tiera Miles MD -Medical Out Work Phone: Start: 01-18-2025 End: 01-18-2025 ambulatory NP. Ysabel Esteban QUALITY ASSURANCE COACH-C Work Phone: [facility] Work Phone: Start: 01-16-2025 End: 01-16-2025 E-mail encounter from caregiver Homa Carvajal RN [facility] Radiology Start: 01-16-2025 End: 01-16-[address] Tiera Miles MD -Medical Out Work Phone: Start: 01-16-2025 End: 01-17-2025 ambulatory Homa Carvajal RN [facility] Radiology Comment on above: You are scheduled fo r a port placement at [facility] on 01/24 at 12:00 pm Multiple myeloma not having achieved remission (HCC) (Primary Dx) Start: 01-14-2025 End: 01-14-[address] Tiera Miles MD -Medical Out Work Phone: Start: 01-14-2025 End: 01-14-2025 ambulatory QUALITY ASSURANCE COACH. Ysabel Esteban QUALITY ASSURANCE COACH-C Work Phone: [facility] Work Phone: Start: 01-14-2025 End: 01-14-2025 portable grinding machine operator [facility] Work Phone: Hematology/Oncology Comment on above: Encounter for educat ion (Primary Dx) Start: 01-11-2025 End: 01-11-2025 Telephone encounter Jadon Styles DO Work Phone: Hematology/Oncology Comment on above: AVS 01/11 Start: 01-11-2025 End: 01-11-[address] Tiera Miles MD -Medical Out Work Phone: Start: 01-11-2025 End: 01-11-2025 ambulatory Tiera Miles Facility:[facility] Start: 01-11-2025 End: 01-11-2025 ambulatory Lab/[facility] Work Phone: Hematology/Oncology Comment on above: Malaise and fatigue Multiple myeloma not having achieved remission (HCC) (Primary Dx); Malaise and fatigue Start: 01-11-2025 End: 01-11-2025 Patient encounter procedure Jadon Styles DO Work Phone: Hematology/Oncology Start: 01-09-2025 End: 01-09-2025 ambulatory QUALITY ASSURANCE COACH. Ysabel Esteban QUALITY ASSURANCE COACH-C Work Phone: [facility] Work Phone: Start: 01-09-2025 End: 01-09-[address] Tiera Miles MD -Medical Out Work Phone: Start: 01-07-2025 End: 01-07-[address] Tiera Miles MD -Medical Out Work Phone: Start: 01-07-2025 End: 01-07-2025 ambulatory QUALITY ASSURANCE COACHCatherine Esteban QUALITY ASSURANCE COACH-C Work Phone: [facility] Work Phone: Start: 01-03-2025 End: 01-03-2025 ambulatory YSABEL ESTEBAN Facility:[facility] Start: 01-02-2025 End: 01-02-2025 Refill Jadon Styles DO Work Phone: Hematology/Oncology Comment on above: Refill Request Start: 01-02-2025 End: 01-02-[address] Tiera Miles MD -Medical Out Work Phone: Start: 01-02-2025 End: 01-02-2025 ambulatory QUALITY ASSURANCE COACHCatherine Esteban QUALITY ASSURANCE COACH-C Work Phone: [facility] Work Phone: Start: 12-31-2024 End: 12-31-[address] Tiera Miles MD -Medical Out Work Phone: Start: 12-31-2024 End: 01-04-2025 Refill Jadon Styles DO Work Phone: Hematology/Oncology Comment on above: Refill Request Start: 12-28-2024 End: 12-28-2024 ambulatory JADON STYLES Facility:[facility] Start: 12-28-2024 End: 12-28-2024 Subsequent hospital visit by physician [facility] Work Phone: Radiology Comment on above: Cancer related pain [G89.3] Pathological fractur e, other site, initial encounter for fracture [M84.48XA] Start: 12-28-2024 End: 12-28-2024 ambulatory QUALITY ASSURANCE COACHCatherine Esteban QUALITY ASSURANCE COACH-C Work Phone: [facility] Work Phone: Start: 12-28-2024 End: 12-28-[address] Tiera Miles MD -Laboratory, Specimen Work Phone: Start: 12-28-2024 End: 12-28-2024 ambulatory NP. Ysabel Esteban QUALITY ASSURANCE COACH-C Work Phone: [facility] Work Phone: Start: 12-28-2024 End: 12-28-2024 Patient encounter procedure Cyndi SCHULTZ -[facility] Work Phone: Start: 12-28-2024 End: 12-28-2024 ambulatory No Primary Care Physician Facility:[facility] Start: 12-26-2024 End: 12-26-2024 Patient encounter procedure Cyndi SCHULTZ -[facility] Work Phone: Start: 12-26-2024 End: 12-26-2024 ambulatory Cyndi Mason Facility:[facility] Start: 12-25-2024 End: 12-25-2024 Telephone encounter Jadon Styles DO Work Phone: Hematology/Oncology Comment on above: Patient Update Start: 12-24-2024 End: 12-24-2024 ambulatory Anita Brannon MD Work Phone: [facility] Comment on above: Cancer related pain (Primary Dx); Compression fracture of thoracic vertebra, unspecified thoracic vertebral level, sequela; Pathological fracture, other site, initial encounter for fracture Start: 12-24-2024 End: 12-24-2024 Telemedicine consultation with patient Anita Brannon MD Work Phone: [facility] Start: 12-23-2024 Non-patient / Non-visit Dr. Corin jacobson MD -[facility] Work Phone: Start: 12-22-2024 End: 12-22-2024 ambulatory Gurmeet Watkins Facility:[facility] Start: 12-22-2024 End: 12-22-2024 Non-patient / Non-visit Dr. [facility]in Flores [facility] Work Phone: Start: 12-21-2024 Non-patient / Non-visit Celso Petit nd [facility] Start: 12-21-2024 Non-patient / Non-visit Dr. Corin jacobson MD -[facility] Work Phone: Start: 12-20-2024 Non-patient / Non-visit Dr. Corin jacobson MD [facility] Work Phone: Start: 12-19-2024 Non-patient / Non-visit Dr. Corin jacobson MD -[facility] Work Phone: Start: 12-18-2024 Non-patient / Non-visit Irineo Perez [facility] Work Phone: Start: 12-18-2024 End: 12-23-2024 ambulatory No Primary Care Physician Facility:[facility] Start: 12-18-2024 End: 12-23-2024 Evaluation and management of inpatient Dr. Gurmeet Watkins DO -Medical Surgical 3 Work Phone: Start: 12-18-2024 End: 12-23-2024 observation encounter QUALITY ASSURANCE COACH. Ysabel Esteban QUALITY ASSURANCE COACH-C Work Phone: [facility] Work Phone: Start: 12-18-2024 End: 12-18-2024 Telephone encounter Heather Cuevas RN Hematology/Oncology Comment on above: [employer] Ere[employer] - O daphnie (ED Follow-up ) Start: 12-17-2024 End: 12-17-2024 Emergency department patient visit GAEL PRIEST Facility:[facility] Start: 12-12-2024 End: 12-12-2024 ambulatory [facility] Start: 12-05-2024 End: 12-05-2024 ambulatory [facility] Start: 12-04-2024 End: 12-04-2024 Refill Jadon Styles DO Work Phone: Hematology/Oncology Comment on above: Refill Request Start: 12-03-2024 End: 12-03-2024 ambulatory [facility] Start: 11-23-2024 End: 11-27-2024 Telephone encounter Jadon Styles DO Work Phone: Hematology/Oncology Comment on above: Patient Question Start: 11-16-2024 End: 11-16-2024 ambulatory Treatment Rm [facility] Work Phone: Hematology/Oncology Comment on above: Multiple myeloma not having achieved remission (HCC) (Primary Dx) Start: 11-15-2024 End: 11-15-2024 ambulatory Treatment Rm [facility] Work Phone: Hematology/Oncology Comment on above: Multiple myeloma in remission (HCC) (Primary Dx) Start: 11-13-2024 End: 11-15-2024 Telephone encounter Jadon Styles DO Work Phone: Hematology/Oncology Comment on above: Patient Question Start: 11-10-2024 End: 11-12-2024 Refill Jadon Styles DO Work Phone: Hematology/Oncology Comment on above: Refill Request Start: 11-06-2024 End: 11-09-2024 Refill Jadon Styles DO Work Phone: Hematology/Oncology Comment on above: Refill Request Start: 11-05-2024 End: 11-05-2024 ambulatory MELISSA CUNNINGHAM Facility:[facility] Start: 11-05-2024 End: 11-05-2024 Patient encounter procedure Melissa Cunningham MD Work Phone: General Surgery Comment on above: Uninodular goiter (P rimary Dx) Start: 10-29-2024 End: 10-29-2024 Patient encounter procedure Melissa Cunningham MD Work Phone: General Surgery Comment on above: Uninodular goiter (P rimary Dx) Start: 10-29-2024 End: 10-29-2024 ambulatory YSABEL ESTEBAN Facility:[facility] Start: 10-26-2024 End: 10-26-2024 [facility] Start: 10-22-2024 End: 10-24-2024 Telephone encounter Jadon Styles DO Work Phone: Hematology/Oncology Comment on above: Patient Question Start: 10-18-2024 End: 10-18-2024 ambulatory SHAY SMILEY Facility:[facility] Start: 10-18-2024 End: 10-18-2024 Subsequent hospital visit by physician [facility] Work Phone: Radiology Comment on above: Thyroid nodule [E04. 1] Start: 10-18-2024 End: 10-18-2024 Chart abstracting Jadon Styles DO Work Phone: Hematology/Oncology Start: 10-16-2024 End: 10-16-2024 Refill Jadon Styles DO Work Phone: Hematology/Oncology Comment on above: Refill Request Start: 10-15-[address] Tiera Miles MD -Physical Therapy Work Phone: Start: 10-15-2024 End: 10-15-2024 ambulatory Ysabel Esteban Facility:[facility] Start: 10-11-2024 End: 10-11-2024 ambulatory Shay Smiley Work Phone: Hematology/Oncology Comment on above: Multiple myeloma in remission (HCC) (Primary Dx); S/P autologous bone marrow transplantation (HCC); Thyroid nodule Start: 10-11-2024 End: 10-11-2024 Patient encounter procedure Shay Sherice Work Phone: Hematology/Oncology Start: 10-10-2024 End: 10-12-2024 Telephone encounter Jadon Styles DO Work Phone: Hematology/Oncology Comment on above: Results Start: 09-25-2024 ambulatory JADON STYLES Facility:[facility] Start: 09-25-2024 End: 09-25-2024 Subsequent hospital visit by physician [facility] Comment on above: Multiple myeloma not having achieved remission (HCC) [C90.00] Start: 09-22-2024 End: 09-24-2024 Refill Jadon Styles DO Work Phone: Hematology/Oncology Comment on above: Refill Request Start: 09-20-2024 End: 09-20-2024 ambulatory [facility] Start: 09-14-2024 End: 09-14-2024 ambulatory JADON STYLES Facility:[facility] Start: 09-13-2024 End: 09-13-2024 Telephone encounter Jadon Styles DO Work Phone: Hematology/Oncology Comment on above: Results Start: 09-12-2024 End: 09-19-2024 Chart abstracting Anita Brannon MD Work Phone: Neurology Start: 09-11-2024 End: 09-11-2024 ambulatory JADON STYLES Facility:[facility] Start: 09-11-2024 End: 09-11-2024 Office outpatient visit 25 minutes Jadon Styles DO Work Phone: Hematology/Oncology Comment on above: Multiple myeloma not having achieved remission (HCC) (Primary Dx); Chronic midline low back pain with left-sided sciatica Start: 09-04-2024 End: 09-04-2024 Telephone encounter Jadon Styles DO Work Phone: Hematology/Oncology Comment on above: Opened In Error Start: 09-03-2024 End: 09-03-2024 Telephone encounter Jadon Styles DO Work Phone: Hematology/Oncology Comment on above: Patient Update Start: 09-03-2024 End: 09-03-2024 ambulatory JADON STYLES Facility:[facility] Start: 09-03-2024 End: 09-03-2024 Subsequent hospital visit by physician [facility] (I-Stat/1.5t) Work Phone: Radiology Comment on above: Multiple myeloma not having achieved remission (HCC) [C90.00] Start: 08-23-2024 End: 08-23-2024 ambulatory Treatment Rm [facility] Work Phone: Hematology/Oncology Comment on above: Multiple myeloma not having achieved remission (HCC) (Primary Dx) Refill Request Start: 08-22-2024 End: 08-22-2024 Refill Jadon Styles DO Work Phone: Hematology/Oncology Comment on above: Refill Request Start: 08-16-2024 End: 08-16-2024 Telephone encounter Heather Cuevas RN Hematology/Oncology Start: 08-12-2024 End: 08-14-2024 ambulatory Jadon Styles DO Work Phone: Hematology/Oncology Comment on above: MM Start: 08-09-2024 End: 08-09-2024 ambulatory Treatment Rm [facility] Work Phone: Hematology/Oncology Comment on above: Multiple myeloma in remission (HCC) (Primary Dx) Start: 08-09-2024 End: 08-09-2024 Telephone encounter Jadon Styles DO Work Phone: Hematology/Oncology Comment on above: Appointment Start: 08-09-2024 End: 08-09-2024 ambulatory JADON STYLES Facility:[facility] Start: 08-08-2024 End: 08-09-2024 Telephone encounter Jadon Styles DO Work Phone: Hematology/Oncology Comment on above: Follow Up Start: 08-05-2024 End: 08-07-2024 ambulatory Jadon Styles DO Work Phone: Hematology/Oncology Comment on above: Health Start: 07-26-2024 End: 07-27-2024 Telephone encounter Jadon Styles DO Work Phone: Hematology/Oncology Comment on above: Appointment Start: 07-26-2024 End: 07-26-2024 ambulatory Treatment Rm [facility] Work Phone: Hematology/Oncology Comment on above: Multiple myeloma in remission (HCC) (Primary Dx) Start: 07-16-2024 End: 07-16-2024 Telephone encounter Heather Cuevas RN Hematology/Oncology Comment on above: Tombstone Erector - O ther (C1D1 Post Treatment Call (velcade)) Start: 07-13-2024 End: 07-13-2024 Telephone encounter Jadon Styles DO Work Phone: MO Provider Adult Comment on above: Medication Problem Start: 07-12-2024 End: 07-12-2024 ambulatory Treatment Rm [facility] Work Phone: Hematology/Oncology Comment on above: Multiple myeloma in remission (HCC) (Primary Dx) Start: 07-12-2024 End: 07-12-2024 ambulatory YSABEL ESTEBAN Facility:[facility] Start: 07-10-2024 End: 07-10-2024 Telephone encounter Jadon Styles DO Work Phone: Hematology/Oncology Comment on above: Appointment Start: 07-04-2024 End: 08-08-2024 ambulatory Jadon Styles DO Work Phone: Hematology/Oncology Start: 07-04-2024 End: 07-04-2024 E-mail encounter from caregiver Jadon Styles DO Work Phone: Hematology/Oncology Start: 07-04-2024 End: 08-08-2024 FQHC visit, estab pt Griselda Carvajal APRN.CNP Work Phone: Hematology/Oncology Comment on above: Established Patient Start: 06-29-2024 End: 07-05-2024 Telephone encounter Jadon Styles DO Work Phone: Hematology/Oncology Comment on above: Patient Question Start: 06-21-2024 End: 06-21-2024 ambulatory Jadon A Masci DO Work Phone: Hematology/Oncology Comment on above: Multiple myeloma, re mission status unspecified (HCC) (Primary Dx) Start: 06-21-2024 End: 06-21-2024 Patient encounter procedure Jadon Styles DO Work Phone: Hematology/Oncology Start: 06-20-2024 End: 06-20-2024 Refill Jadon Styles DO Work Phone: Hematology/Oncology Comment on above: Refill Request Start: 06-12-2024 End: 06-12-2024 Telephone encounter Jadon Styles DO Work Phone: Hematology/Oncology Comment on above: Vomiting Start: 05-14-2024 Refill Bairon brady MD Work Phone: Hematology/Oncology Comment on above: Refill Request Start: 04-19-2024 Refill Bairon brady MD Work Phone: Hematology/Oncology Comment on above: Refill Request Start: 03-29-2024 Telephone encounter Saba estrella APRN.DEVELOPMENT COACH Work Phone: Hematology/Oncology Comment on above: Patient Question Start: 03-22-2024 End: 03-22-2024 ambulatory Saba Roa APRN.DEVELOPMENT COACH Work Phone: Hematology/Oncology Comment on above: Multiple myeloma in remission (HCC) (Primary Dx) Start: 03-22-2024 End: 03-22-2024 Patient encounter procedure Saba Roa HUMANITIES DEPARTMENT CHAIR.DEVELOPMENT COACH Work Phone: Hematology/Oncology Start: 03-21-2024 ambulatory Bairon brady MD Work Phone: Hematology/Oncology Comment on above: SERS papers Start: 02-24-2024 Refill Bairon brady MD Work Phone: Hematology/Oncology Comment on above: Refill Request Start: 02-21-2024 Refill Jadon Hanson O Work Phone: Hematology/Oncology Comment on above: Refill Request Start: 02-13-2024 Telephone encounter Kavon Uriarte RN Hematology/Oncology Comment on above: Patient Update (Care vive Alert) Start: 02-07-2024 Chart abstracting Kavon Uriarte RN Hematology/Oncology Comment on above: Research (Carevive A lert) Start: 01-23-2024 Refill Bairon brady MD Work Phone: Hematology/Oncology Comment on above: Refill Request Start: 01-13-2024 End: 01-13-2024 Subsequent hospital visit by physician [facility] (I-Stat/1.5t) Work Phone: Radiology Comment on above: Pancreatic cyst [K86 .2] Start: 01-10-2024 Chart abstracting Kavon Uriarte RN Hematology/Oncology Comment on above: Research (Carevive A lert) Start: 01-04-2024 Telephone encounter Melissa mayen MD Work Phone: General Surgery Comment on above: Results Start: 01-02-2024 Chart abstracting Kavon Uriarte RN Hematology/Oncology Start: 12-30-2023 End: 12-30-2023 Subsequent hospital visit by physician [facility] Work Phone: Nuclear Medicine Comment on above: Early satiety [R68.8 1] Start: 12-27-2023 Refill Jadon Gutierrez Work Phone: Hematology/Oncology Comment on above: Refill Request Start: 12-07-2023 End: 12-07-2023 Subsequent hospital visit by physician [facility] Work Phone: Radiology Comment on above: Multiple myeloma in remission (HCC) [C90.01] Start: 12-07-2023 End: 12-07-2023 ambulatory Bairon Heath MD Work Phone: Hematology/Oncology Comment on above: Pancreatic cyst (Anel tahir Dx); Multiple myeloma in remission (HCC); Early satiety Start: 12-07-2023 End: 12-07-2023 Patient encounter procedure Bairon Heath MD Work Phone: [facility] Start: 12-06-2023 Chart abstracting Kavon Uriarte RN Hematology/Oncology Comment on above: Research (Carevive A lert) Start: 12-01-2023 Refill Bairon brady MD Work Phone: Hematology/Oncology Comment on above: Refill Request Start: 11-30-2023 Chart abstracting Kavon Uriarte RN Hematology/Oncology Comment on above: Research (Carevive A lert) Start: 11-30-2023 Telephone encounter Heather Cuevas RN matology/Oncology Comment on above: Tombstone Erector - O ther (Symptoms ) Start: 11-21-2023 Chart abstracting Kavon Uriarte RN Hematology/Oncology Comment on above: Research (CAREVIVE A lert) Start: 11-21-2023 Telephone encounter Zakiya gamino RN Work Phone: Hematology/Oncology Comment on above: Care Coordination (N ausea) Start: 09-12-2023 Refill Bairon brady MD Work Phone: Hematology/Oncology Comment on above: Refill Request Start: 08-22-2023 End: 08-22-2023 ambulatory Bairon Heath MD Work Phone: Hematology/Oncology Comment on above: Multiple myeloma in remission (HCC) (Primary Dx); S/P autologous bone marrow transplantation (HCC) Start: 08-22-2023 End: 08-22-2023 Patient encounter procedure Bairon Heath MD Work Phone: [facility] Start: 08-22-2023 Telephone encounter Paris DUMONT Hematology/Oncology Comment on above: 2023 Revlimid Assist ance Renewal Start: 08-15-2023 Telephone encounter Zakiya gamino RN Work Phone: Hematology/Oncology Comment on above: Care Coordination (F ollow Up Note ) Start: 08-09-2023 Refill Bairon brady MD Work Phone: Hematology/Oncology Comment on above: Refill Request Start: 07-26-2023 Chart abstracting Kavon Uriarte RN Hematology/Oncology Comment on above: Research (CAREVIVE A lert) Start: 07-18-2023 Chart abstracting Kavon Uriarte RN Hematology/Oncology Comment on above: Research (CAREVIVE A lert) Start: 07-07-2023 Refill Bairon brady MD Work Phone: Hematology/Oncology Comment on above: Med Change Request Start: 07-01-2023 Patient encounter procedure Geno Valdez PA-C Work Phone: Neurology Comment on above: Clinician To Clinici an Consult Start: 06-30-2023 Telephone encounter Bairon mullen MD Work Phone: Hematology/Oncology Comment on above: Patient Question Start: 06-22-2023 Refill Jadon Gutierrez Work Phone: Hematology/Oncology Comment on above: Refill Request Start: 06-20-2023 Telephone encounter Kavon Uriarte RN Hematology/Oncology Comment on above: Research (Carevive A lert) Care Coordination (F ollow Up Note ) Start: 06-14-2023 Telephone encounter Kavon Uriarte RN Hematology/Oncology Comment on above: Research Start: 06-09-2023 Refill Bairon brady MD Work Phone: Hematology/Oncology Comment on above: Refill Request Start: 06-08-2023 Telephone encounter Kavon Uriarte RN Hematology/Oncology Comment on above: Research Start: 05-30-2023 End: 05-30-2023 ambulatory Treatment Rm 13 [facility] Work Phone: Hematology/Oncology Comment on above: Multiple myeloma in remission (HCC) (Primary Dx); Chronic bilateral low back pain without sciatica Multiple myeloma in remission (HCC) (Primary Dx) Start: 05-30-2023 End: 05-30-2023 Patient encounter procedure Bairon Heath MD Work Phone: [facility] Start: 05-30-2023 Chart abstracting Kavon Uriarte RN Hematology/Oncology Comment on above: Research (Carevive C onsent) Start: 05-30-2023 Telephone encounter Jadon bradley DO Work Phone: Hematology/Oncology Comment on above: Question Start: 05-24-2023 Orders Only Jadon Gutierrez Work Phone: Hematology/Oncology Comment on above: Multiple myeloma in remission (HCC) (Primary Dx) Start: 05-24-2023 Refill Jadon Jacobson Masci D O Work Phone: Hematology/Oncology Comment on above: Refill Request Start: 05-12-2023 Refill Jadon Jacobson Masci D O Work Phone: Hematology/Oncology Comment on above: Refill Request Start: 04-27-2023 Refill Jadon Jacobson Masci D O Work Phone: Hematology/Oncology Comment on above: Refill Request Start: 04-15-2023 Refill Jadon Jacobson Masci D O Work Phone: Hematology/Oncology Comment on above: Refill Request Start: 04-07-2023 End: 04-07-2023 Subsequent hospital visit by physician [facility] Work Phone: Nuclear Medicine Comment on above: Nausea [R11.0] Start: 03-25-2023 Telephone encounter Melissa mayen MD Work Phone: General Surgery Comment on above: Patient Question Start: 03-24-2023 Refill Jadon Jacobson Masci D O Work Phone: Hematology/Oncology Comment on above: Opened In Error Medication Question Start: 03-23-2023 Refill Jadon Jacobson Masci D O Work Phone: Hematology/Oncology Comment on above: Refill Request Start: 03-22-2023 End: 03-22-2023 Patient encounter procedure Melissa Cunningham MD Work Phone: General Surgery Comment on above: Abdominal bloating ( Primary Dx); Epigastric pain; Nausea Start: 03-14-2023 Telephone encounter Jadon bradley DO Work Phone: Hematology/Oncology Comment on above: fax request Care Coordination (F emili up Note) Start: 03-10-2023 Telephone encounter Jadon bradley DO Work Phone: Hematology/Oncology Comment on above: Results Start: 03-09-2023 Telephone encounter Rebecca pinon PA-C Work Phone: General Surgery Comment on above: Patient Question Start: 03-08-2023 End: 03-08-2023 ambulatory Jadon Styles DO Work Phone: Hematology/Oncology Comment on above: Multiple myeloma in remission (HCC) (Primary Dx); Acute gastritis without hemorrhage, unspecified gastritis type; History of kidney cancer; Cyst of right kidney; Pancreas cyst; Abnormal LFTs; History of pancreatitis Start: 03-08-2023 End: 03-08-2023 Patient encounter procedure Jad[facility] Styles DO [facility] Start: 03-08-2023 Telephone encounter Jadon bradley DO Work Phone: Hematology/Oncology Comment on above: Results AVS 03/08/23 Start: 03-03-2023 End: 03-03-2023 Subsequent hospital visit by physician Melissa Cunningham MD Work Phone: Ambulatory Surgery Comment on above: Multiple myeloma, wi thout mention of having achieved remission (HCC) [C90.00] Start: 02-18-2023 End: 02-18-2023 Subsequent hospital visit by physician [facility] Work Phone: Radiology Comment on above: Cyst of right kidney [N28.1] Start: 02-15-2023 Refill Jadon Hanson O Work Phone: Hematology/Oncology Comment on above: Refill Request Start: 01-26-2023 End: 01-26-2023 Subsequent hospital visit by physician [facility] (1.5t) [facility] Comment on above: Multiple myeloma in remission (HCC) [C90.01] Start: 01-17-2023 Refill Jadon Hanson O Work Phone: Hematology/Oncology Comment on above: Refill Request Start: 01-10-2023 Telephone encounter Ghislaine torres MD Work Phone: Hematology/Oncology Comment on above: Patient Question Start: 12-17-2022 Refill Jadon Hanson O Work Phone: Hematology/Oncology Comment on above: Refill Request Start: 12-14-2022 Telephone encounter [place] DUMONT Hematology/Oncology Comment on above: Refill Request (Revl imid) Start: 12-14-2022 End: 12-14-2022 ambulatory Ghislaine Hutchinson MD Work Phone: Hematology/Oncology Comment on above: Multiple myeloma in remission (HCC) (Primary Dx); S/P autologous bone marrow transplantation (HCC); Solitary plasmacytoma, unspecified whether remission achieved (HCC) Start: 12-14-2022 End: 12-14-2022 Patient encounter procedure Ghislaine Hutchinson MD Work Phone: [facility] Start: 12-08-2022 Orders Only Ghislaine Hutchinson MD Work Phone: Hematology/Oncology Comment on above: Multiple myeloma in remission (HCC) (Primary Dx) Start: 11-26-2022 Refill Jadon Gutierrez Work Phone: Hematology/Oncology Comment on above: Refill Request Start: 11-17-2022 Refill Jadon Gutierrez Work Phone: Hematology/Oncology Comment on above: Refill Request Start: 10-26-2022 Refill Dayana Stewart MD Work Phone: Hematology/Oncology Comment on above: Refill Request Opened In Error Start: 09-28-2022 Telephone encounter Dayana Stewart MD Work Phone: Hematology/Oncology Comment on above: Results Start: 09-24-2022 End: 09-24-2022 Subsequent hospital visit by physician [facility] Comment on above: Multiple myeloma in remission (HCC) [C90.01] Start: 09-23-2022 Telephone encounter [place] [facility] Hematology/Oncology Comment on above: 2022 Revlimid Assist ance Start: 09-21-2022 End: 09-21-2022 ambulatory Treatment Rm 13 [facility] Work Phone: Hematology/Oncology Comment on above: Multiple myeloma in remission (HCC) (Primary Dx); Chronic bilateral low back pain without sciatica Multiple myeloma in remission (HCC) (Primary Dx); Cancer related pain; Closed compression fracture of lumbosacral spine with routine healing, subsequent encounter; Compression fracture of thoracic vertebra, unspecified thoracic vertebral level, sequela Start: 09-21-2022 End: 09-21-2022 Patient encounter procedure Dayana Stewart MD Work Phone: [facility] Start: 09-17-2022 Refill Dayana Stewart MD Work Phone: Hematology/Oncology Comment on above: Refill Request Revlimid Patient Ass istance Start: 08-19-2022 Telephone encounter Dayana Stewart MD Work Phone: Hematology/Oncology Comment on above: Patient Update Start: 08-16-2022 End: 08-16-[address] iPa Gambino Work Phone: [facility] Work Phone: Start: 08-16-2022 End: 08-16-[address] Pia aGmbino Work Phone: [facility]Outpatient [facility] Start: 08-03-2022 Refill Jadon Gutierrez Work Phone: Hematology/Oncology Comment on above: Refill Request Start: 07-26-2022 End: 07-26-[address] Pia Gambino Work Phone: [facility] Work Phone: Start: 07-26-[address] Twin Gambino Work Phone: [facility] Start: 07-26-2022 End: 07-26-2022 Encounter for general adult medical examination without abnormal findings Dr. Pia Gambino Work Phone: [facility] Start: 07-26-2022 End: 07-26-[address] Pia Gambino Work Phone: [facility] Start: 07-02-2022 Telephone encounter Saba estrella APRN.CNP Work Phone: Hematology/Oncology Comment on above: Patient Update Start: 06-29-2022 Refill Dayana Stewart MD Work Phone: Hematology/Oncology Comment on above: Refill Request Start: 06-29-2022 Telephone encounter Saba estrella APRN.CNP Work Phone: Hematology/Oncology Comment on above: Orders Start: 06-29-2022 End: 06-29-2022 ambulatory Treatment Rm 7 [facility] Work Phone: Hematology/Oncology Comment on above: Multiple myeloma in remission (HCC) (Primary Dx) Start: 06-08-2022 End: 06-08-[address] Pia Gambino Work Phone: [facility] Start: 05-07-2022 Refill Dayana Stewart MD Work Phone: Hematology/Oncology Comment on above: Refill Request Start: 04-20-2022 Telephone encounter Dayana Stewart MD Work Phone: Hematology/Oncology Comment on above: Patient Update Start: 04-16-2022 End: 04-16-[address] Pia Gambino Work Phone: [facility] Start: 04-07-2022 Telephone encounter Heather Cuevas RN He matology/Oncology Comment on above: [place] Erector - O ther (Medication Question ) Start: 03-22-2022 Telephone encounter Dayana Stewart MD Work Phone: Hematology/Oncology Comment on above: Results Start: 03-18-2022 End: 03-18-2022 ambulatory Treatment Rm 1 [facility] Work Phone: Hematology/Oncology Comment on above: Multiple myeloma not having achieved remission (HCC) (Primary Dx); Chronic bilateral low back pain without sciatica S/P autologous bone marrow transplantation (HCC) (Primary Dx); Multiple myeloma in remission (HCC) Start: 03-18-2022 End: 03-18-2022 Patient encounter procedure Dayana Stewart MD Work Phone: [facility] Start: 03-05-2022 Refill Jadon Gutierrez Work Phone: Hematology/Oncology Comment on above: Refill Request Start: 02-19-2022 Telephone encounter Dayana Stewart MD Work Phone: Hematology/Oncology Comment on above: Patient Question Start: 02-04-2022 Refill Dayana Stewart MD Work Phone: Hematology/Oncology Comment on above: Refill Request Start: 01-22-2022 Telephone encounter Dayana Stewart MD Work Phone: Hematology/Oncology Comment on above: Patient Question Start: 01-14-2022 Telephone encounter Dayana Stewart MD Work Phone: Hematology/Oncology Comment on above: Orders Start: 01-05-2022 End: 01-05-2022 ambulatory Florida Garcia PT Work Phone: [facility] Comment on above: Vestibular dizziness (Primary Dx) Start: 04-27-2021 ambulatory TIERA MILES Facility: [facility] Procedures Date Procedure Procedure Detail Performing Clinician Start: 06-26-2025 Blood count complete auto&auto difrntl wbc Jadon A Masci DO Work Phone: Start: 06-12-2025 Blood count complete auto&auto difrntl wbc Jadon A Masci DO Work Phone: Start: 05-29-2025 Blood count complete auto&auto difrntl wbc Jadon A Masci DO Work Phone: Start: 05-20-2025 Mri spinal canal thoracic w/o & w/contr matrl Jadon A Masci DO Work Phone: Start: 05-10-2025 Urnls dip stick/tablet reagent auto microscopy Jadon A Masci DO Work Phone: Start: 05-02-2025 Mri spinal canal lumbar w/o & w/contr matrl Jadon A Masci DO Work Phone: Start: 05-02-2025 Blood count complete auto&auto difrntl wbc Jadon A Masci DO Work Phone: Start: 04-25-2025 Diagnostic bone marrow biopsies & aspirations Saba Roa APRN.CNP Work Phone: Start: 04-25-2025 Blood count complete auto&auto difrntl wbc Saba Roa HUMANITIES DEPARTMENT CHAIR.DEVELOPMENT COACH Work Phone: Start: 04-17-2025 Blood count complete auto&auto difrntl wbc Jadon Jacobson Masci DO Work Phone: Start: 04-15-2025 Blood count complete auto&auto difrntl wbc Jadon Jacobson Masci DO Work Phone: Start: 04-09-[address] attenuation whole body Jadon Jacobson Masci DO Work Phone: Start: 04-09-2025 Gluc bld gluc mntr dev cleared fda spec home use [facility] Provider Start: 04-03-2025 Blood count complete auto&auto difrntl wbc Jadon Jacobson Masci DO Work Phone: Start: 03-21-2025 Blood count complete auto&auto difrntl wbc Jadon Jacobson Masci DO Work Phone: Start: 03-15-2025 Blood count complete auto&auto difrntl wbc Jadon Bowlingi DO Work Phone: Start: 03-08-2025 Blood count complete auto&auto difrntl wbc Jadon Bowlingi DO Work Phone: Start: 02-22-2025 Blood count complete auto&auto difrntl wbc Jadon Bowlingi DO Work Phone: Start: 02-18-2025 Urnls dip stick/tablet reagent auto microscopy Dr. Surjit Santizo MD Work Phone: Start: 02-18-2025 X-ray of chest, PA and lateral views Dr. Surjit Santizo MD Work Phone: Start: 02-18-2025 SARS-CoV-2, Influenza & RSV (PCR) Dr. Tr Santizo MD Work Phone: Start: 02-15-2025 Blood count complete auto&auto difrntl wbc Jadon Jacobson Masci DO Work Phone: Start: 02-13-2025 Blood count complete auto&auto difrntl wbc Jadon Jacobson Masci DO Work Phone: Start: 02-06-2025 Blood count complete auto&auto difrntl wbc Jadon Styles DO Work Phone: Start: 01-25-2025 Antibody screen rbc each serum technique Jadon Styles DO Work Phone: Start: 01-18-2025 Esophagogastroduodenoscopy QUALITY ASSURANCE COACH. Ysabel Gibson samirar QUALITY ASSURANCE COACH-C Work Phone: Start: 01-11-2025 Assay of phosphorus inorganic Jadon bradley DO Work Phone: Start: 12-28-2024 Ct thoracic spine w/o contrast material Anita Brannon MD Work Phone: Start: 12-28-2024 US scan of gallbladder QUALITY ASSURANCE COACH. Ysabel Kiserer er QUALITY ASSURANCE COACH-C Work Phone: Start: 12-23-[address] Surjit Santizo MD Work Phone: Start: 12-20-2024 Computed tomography of abdomen and pelvis with contrast QUALITY ASSURANCE COACH. Ysabel Kiserkathyr QUALITY ASSURANCE COACH-C Work Phone: Start: 12-20-2024 Radionuclide gastric emptying study QUALITY ASSURANCE COACH. Ysabel Kiserkathyr QUALITY ASSURANCE COACH-C Work Phone: Start: 12-19-2024 Iadna-dna/rna gi pthgn multiplex probe tq 6-11 Dr. Surjit Santizo MD Work Phone: Start: 12-19-2024 Clostridium difficile detection QUALITY ASSURANCE COACH. Clari Kiserkathyr QUALITY ASSURANCE COACH-C Work Phone: Start: 12-19-2024 Nucleic acid assay QUALITY ASSURANCE COACH. Ysabel Kiseryong QUALITY ASSURANCE COACH-C Work Phone: Start: 11-05-2024 US THYROID BIOPSY LEFT (POC) SURG USE ONLY Melissa Cunningham MD Work Phone: Start: 11-05-2024 Cytp eval fine needle aspirate interp & report Melissa Cunningham MD Work Phone: Start: 09-25-2024 Gluc bld gluc mntr dev cleared fda spec home use [facility] Provider Start: 09-03-2024 Mri brain brain stem w/o w/contrast material Jadon Styles DO Work Phone: Start: 12-30-2023 Gastric emptying imaging study Bairon pelayo MD Work Phone: Start: 04-07-2023 Hepatobil syst imag inc gb w/pharma intervenj Melissa Cunningham MD Work Phone: Start: 03-03-2023 Level iv surg pathology gross&microscopic exam Melissa Cunningham MD Work Phone: Start: 03-03-2023 Esophagogastroduodenoscopy transoral diagnostic Melissa Cunningham MD Work Phone: Start: 02-18-2023 Us retroperitoneal real time w/image complete Jadon Styles DO Work Phone: Start: 01-26-2023 Mri abdomen w/o & w/contrast material Ghislaine Hutchinson MD Work Phone: Start: 08-16-[address] Pia Gambino Work Phone: Start: 04-16-2022 Diagnostic radiography of finger Dr. Danial Gambino Work Phone: Start: 03-02-2021 Adult depression screening assessment Florida Garcia PT Work Phone: Start: 05-04-2019 Colonoscopy Florida Garcia PT Work Phone: Plan of Treatment Date Care Activity Detail Author Start: 09-22-2031 Urine microalbumin profile DTaP,Tdap,Td Vaccine (3 - Td or Tdap) [facility] Start: 08-10-2031 Urine microalbumin profile [facility] Start: 06-26-2028 Diabetes Screening Diabetes Screenin [facility] Start: 06-12-2028 Diabetes Screening Diabetes Screenin [facility] Start: 05-29-2028 Diabetes Screening Diabetes Screenin [facility] Start: 05-15-2028 Diabetes Screening Diabetes Screenin [facility] Start: 04-15-2028 Diabetes Screening Diabetes Screenin [facility] Start: 04-03-2028 Diabetes Screening Diabetes Screenin g [facility] Start: 03-15-2028 Diabetes Screening Diabetes Screenin g [facility] Start: 03-01-2028 Diabetes Screening Diabetes Screenin g [facility] Start: 02-23-2028 Diabetes Screening Diabetes Screenin g [facility] Start: 02-07-2028 Diabetes Screening Diabetes Screenin g [facility] Start: 01-26-2028 Diabetes Screening Diabetes Screenin g [facility] Start: 01-04-2028 Diabetes Screening Diabetes Screenin g [facility] Start: 12-18-2027 Diabetes Screening Diabetes Screenin g [facility] Start: 11-15-2027 Diabetes Screening Diabetes Screenin g [facility] Start: 08-23-2027 Diabetes Screening Diabetes Screenin g [facility] Start: 07-26-2027 Diabetes Screening Diabetes Screenin g [facility] Start: 07-12-2027 Diabetes Screening Diabetes Screenin g [facility] Start: 06-18-2027 Diabetes Screening Diabetes Screenin g [facility] Start: 03-02-2027 Diabetes Screening Diabetes Screenin g [facility] Start: 11-22-2026 Diabetes Screening Diabetes Screenin g [facility] Start: 08-15-2026 Diabetes Screening Diabetes Screenin g [facility] Start: 05-25-2026 DIABETES SCREEN [facility] Start: 05-25-2026 Diabetes Screening Diabetes Screenin g [facility] Start: 03-08-2026 DIABETES SCREEN DIABETES SCREEN [facility] Start: 12-09-2025 DIABETES SCREEN DIABETES SCREEN [facility] Start: 09-21-2025 DIABETES SCREEN [facility] Start: 09-18-2025 End: 09-18-2025 Patient encounter procedure 09/18/2025 3:00 PM EST Office Visit [facility] [address] [phone] Anita Brannon MD [address] [place] [address] Broken [facility] Comment on above: Broken Back Start: 09-04-2025 End: 09-04-2025 Patient encounter procedure 09/04/2025 10:30 AM EST Visit (SP) Office Hematology/Oncology [address] [place] [address] Jadon Styles DO [address] [place] [address] OV(PORT)/LAB EARLY/CHEMO TODAY* MASCI - SAME DAY APPTS Hematology/Oncology Comment on above: OV(PORT)/LAB EARLY/C HEMO TODAY* MASCI - SAME DAY APPTS Start: 09-04-2025 End: 09-04-2025 ambulatory Hematology/Oncology Comment on above: (SO)Q2WK CBC/OV&CHEM O TODAY* QMO ZOMETA/QMO DARZ/ 1 HR HYDRATION(PORT)LAB&OV EARLY* Start: 08-07-2025 End: 08-07-2025 Patient encounter procedure 08/07/2025 10:30 AM EDT Visit (SP) Office Hematology/Oncology [address] [place] [address] Saba Roa APRN.DEVELOPMENT COACH [address] [place] [address] OV(PORT)/LAB EARLY/CHEMO TODAY* MASCI - SAME DAY APPTS Hematology/Oncology Comment on above: OV(PORT)/LAB EARLY/C HEMO TODAY* MASCI - SAME DAY APPTS Start: 08-07-2025 End: 08-07-2025 ambulatory Hematology/Oncology Comment on above: (SO)Q2WK CBC/OV&CHEM O TODAY* QMO ZOMETA/QMO DARZ/ 1 HR HYDRATION(PORT)LAB&OV EARLY* (SO)Q2WK CBC/MM LABS /OV&CHEMO TODAY* Start: 07-19-2025 End: 07-19-2025 ambulatory 07/19/2025 11:00 AM EDT Infusion Center Hematology/Oncology [address] [place] [address] 2ND Hematology/Oncology Comment on above: 2ND Start: 07-17-2025 End: 07-17-2025 ambulatory 07/17/2025 3:00 PM EDT Infusion Center Hematology/Oncology [address] [place] [address] 2ND Hematology/Oncology Comment on above: 2ND Start: 07-17-2025 End: 07-17-2025 Patient encounter procedure 07/17/2025 12:40 PM EDT Office Visit [facility] [address] [place] [address] Anita Brannon MD [address] [place] [address] per staff message [facility] Comment on above: per staff message Start: 07-15-2025 End: 07-15-2025 ambulatory Hematology/Oncology Comment on above: 2ND pt canceled 07/17 and 07/19 hydration by Start: 07-12-2025 End: 07-12-2025 ambulatory 07/12/2025 3:00 PM EDT Infusion Center Hematology/Oncology [address] [place] [address] 2ND Hematology/Oncology Comment on above: 2ND Start: 07-10-2025 End: 07-10-2025 Patient encounter procedure 07/10/2025 11:10 AM EDT Visit (SP) Office Hematology/Oncology [address] [place] [place] [address] Jadon Styles DO [address] [place] [address] OV(PORT)/LAB EARLY/CHEMO TODAY* MASCI - SAME DAY APPTS Hematology/Oncology Comment on above: OV(PORT)/LAB EARLY/C HEMO TODAY* MASCI - SAME DAY APPTS Start: 07-10-2025 End: 07-10-2025 ambulatory Hematology/Oncology Comment on above: (SO)Q2WK CBC/OV&CHEM O TODAY* QMO ZOMETA/QMO DARZ/ 1 HR HYDRATION(PORT)LAB&OV EARLY* Start: 07-09-2025 End: 07-09-2025 Patient encounter procedure Departed Physician/Provider Office Visit -[facility] Work Phone: Start: 07-08-2025 End: 07-08-2025 ambulatory 07/08/2025 1:30 PM EDT Infusion Center Hematology/Oncology [address] [place] [address] 2ND Hematology/Oncology Comment on above: 2ND Start: 07-05-2025 End: 07-05-2025 Patient encounter procedure Otitis media -[facility] Work Phone: Start: 07-05-2025 PNEUMOCOCCAL (3 - PP SV23 if available, else PCV20) PNEUMOCOCCAL (3 - PPSV23 if available, else PCV20) [facility] Start: 07-05-2025 PNEUMOCOCCAL (3 - PP SV23 or PCV20) PNEUMOCOCCAL (3 - PPSV23 or PCV20) [facility] Start: 07-05-2025 Pneumococcal vaccination [facility] Start: 07-05-2025 Pneumococcal Vaccine : 50+ (3 of 3 - PCV20 or PCV21) Pneumococcal Vaccine: 50+ (3 of 3 - PCV20 or PCV21) [facility] Start: 07-05-2025 Pneumococcal Vaccine : 50+ (3 of 3 - PPSV23, PCV20 or PCV21) Pneumococcal Vaccine: 50+ (3 of 3 - PPSV23, PCV20 or PCV21) [facility] Start: 07-05-2025 TWO PNEUMOVAX 5 YEAR S APART PRIOR TO AGE 65 (#2) TWO PNEUMOVAX 5 YEARS APART PRIOR TO AGE 65 (#2) [facility] Start: 07-05-2025 End: 07-05-2025 ambulatory 07/05/2025 1:30 PM EDT Infusion Center Hematology/Oncology [address] [place] [address] 2ND Hematology/Oncology Comment on above: 2ND Start: 07-03-2025 End: 07-03-2025 ambulatory 07/03/2025 1:30 PM EDT Infusion Center Hematology/Oncology [address] [place] [address] 2ND Hematology/Oncology Comment on above: 2ND Start: 07-01-2025 End: 07-01-2025 ambulatory 07/01/2025 1:30 PM EDT Infusion Center Hematology/Oncology [address] [place] [address] 2ND Hematology/Oncology Comment on above: 2ND Start: 06-29-2025 DIABETES SCREEN DIABETES SCREEN [facility] Start: 06-28-2025 End: 06-28-2025 ambulatory 06/28/2025 1:30 PM EDT Infusion Center Hematology/Oncology [address] [place] [address] 2ND Hematology/Oncology Comment on above: 2ND Start: 06-26-2025 End: 06-26-2025 Patient encounter procedure 06/26/2025 11:10 AM EDT Visit (SP) Office Hematology/Oncology [address] [place] [address] Jadon Styles DO [address] [place] [address] OV(PORT)/LAB EARLY/CHEMO TODAY* MASCI - SAME DAY APPTS Hematology/Oncology Comment on above: OV(PORT)/LAB EARLY/C HEMO TODAY* MASCI - SAME DAY APPTS Start: 06-26-2025 End: 06-26-2025 ambulatory Hematology/Oncology Comment on above: (SO)Q2WK CBC/OV&CHEM O TODAY* Q2WK DARZ/8-8/1 HR H YDRATION(PORT)LAB&OV EARLY* DARZ THEN QMO Q2WK DARZ/8-8/1 HR H YDRATION(PORT)LAB&OV EARLY* DARZ THEN QMO -QMO ZOMETA DUE 07/10 (Starting Pomalyst t tez)Q2WK DARZ/8-8/1 HR HYDRATION(PORT)LAB&OV EARLY* DARZ THEN QMO -QMO ZOMETA DUE 07/10 Start: 06-24-2025 End: 06-24-2025 ambulatory 06/24/2025 1:30 PM EDT Infusion Center Hematology/Oncology [address] [place] [address] 2ND Hematology/Oncology Comment on above: 2ND Start: 06-21-2025 End: 06-21-2025 ambulatory 06/21/2025 1:30 PM EDT Infusion Center Hematology/Oncology [address] [place] [id number] 2ND Hematology/Oncology Comment on above: 2ND Start: 06-19-2025 End: 06-19-2025 ambulatory 06/19/2025 1:30 PM EDT Infusion Center Hematology/Oncology [address] [place] [address] 2ND Hematology/Oncology Comment on above: 2ND Start: 06-17-2025 End: 06-17-2025 ambulatory 06/17/2025 1:30 PM EDT Infusion Center Hematology/Oncology [address] [place] [address] 2ND Hematology/Oncology Comment on above: 2ND Start: 06-14-2025 End: 06-14-2025 ambulatory 06/14/2025 1:30 PM EDT Infusion Center Hematology/Oncology [address] [place] [address] 2ND Hematology/Oncology Comment on above: 2ND Start: 06-12-2025 End: 06-12-2025 ambulatory Hematology/Oncology Comment on above: PT ARRIVING 115 Q2WK DARZ/7-8/1 HR H YDRATION(PORT)LAB&OV EARLY* DARZ THEN QMO QMO ZOMETA/Q2WK DARZ /7-8/1 HR HYDRATION(PORT)LAB&OV EARLY* DARZ THEN QMO Start: 06-12-2025 End: 06-12-2025 Patient encounter procedure 06/12/2025 1:30 PM EDT Visit (SP) Office Hematology/Oncology [address] [place] [address] Saba Roa APRN.DEVELOPMENT COACH [address] [place] [address] OV(PORT)/LAB EARLY/CHEMO TODAY* MASCI - SAME DAY APPTS Hematology/Oncology Comment on above: OV(PORT)/LAB EARLY/C HEMO TODAY* MASCI - SAME DAY APPTS Start: 06-11-2025 End: 06-11-2025 ambulatory 06/11/2025 1:30 PM EDT Infusion Center Hematology/Oncology [address] [place] [address] 2ND Hematology/Oncology Comment on above: 2ND Start: 2025 Influenza vaccination [facility] Start: 06-07-2025 End: 06-07-2025 ambulatory 06/07/2025 2:00 PM EDT Infusion Center Hematology/Oncology [address] [place] [address] 2ND Hematology/Oncology Comment on above: 2ND Start: 06-05-2025 End: 06-05-2025 ambulatory 06/05/2025 1:30 PM EDT Infusion Center Hematology/Oncology [address] [place] [address] 2ND Hematology/Oncology Comment on above: 2ND Start: 06-05-2025 End: 06-05-2025 Patient encounter procedure 06/05/2025 1:30 PM EDT Infusion Center Hematology/Oncology [address] [place] [address] CLINICAL TRIAL DRAW - KAVON TO PROVIDE TUBES Hematology/Oncology Comment on above: CLINICAL TRIAL DRAW - KAVON TO PROVIDE TUBES Start: 06-03-2025 End: 06-03-2025 ambulatory 06/03/2025 2:00 PM EDT Infusion Center Hematology/Oncology [address] [place] [address] 2ND Hematology/Oncology Comment on above: 2ND Start: 05-31-2025 End: 05-31-2025 ambulatory 05/31/2025 1:30 PM EDT Infusion Center Hematology/Oncology [address] [place] [address] 2ND Hematology/Oncology Comment on above: 2ND Start: 05-29-2025 End: 05-29-2025 ambulatory Hematology/Oncology Comment on above: PT ARRIVING 115 Q2WK DARZ/6-8/1 HR H YDRATION(PORT)LAB&OV EARLY* DARZ THEN QMO Start: 05-29-2025 End: 05-29-2025 Patient encounter procedure 05/29/2025 1:30 PM EDT Visit (SP) Office Hematology/Oncology [address] [place] [address] Saba Roa APRN.DEVELOPMENT COACH [address] [place] [address] OV(PORT)/LAB EARLY/CHEMO TODAY* MASCI - SAME DAY APPTS Hematology/Oncology Comment on above: OV(PORT)/LAB EARLY/C HEMO TODAY* MASCI - SAME DAY APPTS Start: 05-27-2025 End: 05-27-2025 ambulatory 05/27/2025 2:00 PM EDT Infusion Center Hematology/Oncology [address] [place] [address] 2ND Hematology/Oncology Comment on above: 2ND Start: 05-24-2025 End: 05-24-2025 ambulatory 05/24/2025 3:30 PM EDT Infusion Center Hematology/Oncology [address] [place] [address] 2ND Hematology/Oncology Comment on above: 2ND Start: 05-22-2025 End: 05-22-2025 ambulatory 05/22/2025 2:00 PM EDT Infusion Center Hematology/Oncology [address] [place] [address] 2ND Hematology/Oncology Comment on above: 2ND Start: 05-20-2025 End: 05-20-2025 ambulatory 05/20/2025 2:00 PM EDT Infusion Center Hematology/Oncology [address] [place] [address] 2ND Hematology/Oncology Comment on above: 2ND Start: 05-17-2025 End: 05-17-2025 ambulatory 05/17/2025 1:30 PM EDT Infusion Center Hematology/Oncology [address] [place] [address] 2ND Hematology/Oncology Comment on above: 2ND Start: 05-15-2025 End: 05-15-2025 Patient encounter procedure 05/15/2025 1:30 PM EDT Visit (SP) Office Hematology/Oncology [address] [place] [address] Saba Roa APRN.DEVELOPMENT COACH [address] [place] [address] OV(PORT)/LAB EARLY/CHEMO TODAY* MASCI - SAME DAY APPTS Hematology/Oncology Comment on above: OV(PORT)/LAB EARLY/C HEMO TODAY* MASCI - SAME DAY APPTS Start: 05-15-2025 End: 05-15-2025 Patient encounter procedure 05/15/2025 8:30 AM EDT Visit (SP) Office Hematology/Oncology [address] [place] [address] Jadon Styles DO [address] [place] [address] OV(PORT)/LAB EARLY/CHEMO TODAY* MASCI - SAME DAY APPTS Hematology/Oncology Comment on above: OV(PORT)/LAB EARLY/C HEMO TODAY* MASCI - SAME DAY APPTS Start: 05-15-2025 End: 05-15-2025 ambulatory Hematology/Oncology Comment on above: PT ARRIVING 115 Q2WK DARZ/5-8/1 HR H YDRATION(PORT)LAB&OV EARLY* DARZ THEN QMO (SO)Q2WK CBC/QMO CMP /Q3MO MYELOMA LAB, 24 HR URINE/OV&CHEMO TODAY* START QMO ZOMETA/Q2W K DARZ/5-8/1 HR HYDRATION(PORT)LAB&OV EARLY* DARZ THEN QMO Start: 05-13-2025 End: 05-13-2025 ambulatory 05/13/2025 2:00 PM EDT Infusion Center Hematology/Oncology [address] [place] [address] 2ND Hematology/Oncology Comment on above: 2ND Start: 05-10-2025 End: 05-10-2025 ambulatory Hematology/Oncology Comment on above: 2ND Start: 05-08-2025 End: 05-08-2025 ambulatory Hematology/Oncology Comment on above: 2ND Start: 05-06-2025 End: 05-06-2025 ambulatory Hematology/Oncology Comment on above: 2ND Start: 05-03-2025 End: 05-03-2025 Patient encounter procedure 05/03/2025 2:00 PM EDT Visit (SP) Office Hematology/Oncology [address] [place] [address] Shay Smiley [address] [place] [address] OV(PORT)/LAB EARLY/CHEMO TODAY* MASCI - SAME DAY APPTS Hematology/Oncology Comment on above: OV(PORT)/LAB EARLY/C HEMO TODAY* MASCI - SAME DAY APPTS Start: 05-03-2025 End: 05-03-2025 ambulatory Hematology/Oncology Comment on above: (SO)CBC/CMP(S)/MM LA BS/24 HR URINE M SPIKE(PORT)OV TODAY* Q3MO ZOMETA/Q2WK KIMBERLY Z/4-8/1 HR HYDRATION(PORT)LAB&OV EARLY* DARZ THEN QMO/ Q3MO ZOMETA DUE AGAIN 07/26 Q3MO ZOMETA/Q2WK KIMBERLY Z/4-8/1 HR HYDRATION(PORT)LAB&OV EARLY* AUG OV- CBC/MM/24 HR URINE PRIOR TO OV -DARZ THEN QMO/ Q3MO ZOMETA DUE AGAIN 07/26 Q2WK DARZ/4-8/1 HR H YDRATION(PORT)LAB&OV EARLY* MAY OV- CBC/MM/24 HR URINE PRIOR TO OV -DARZ THEN QMO 2ND Start: 05-02-2025 End: 05-02-2025 Patient encounter procedure 05/02/2025 9:00 AM EDT Appointment Radiology [address] [place] [address] Multiple myeloma not having achieved remission (HCC) [C90.00] Radiology Comment on above: Multiple myeloma not having achieved remission (HCC) [C90.00] Start: 05-02-2025 End: 05-02-2025 ambulatory Hematology/Oncology Comment on above: ACCESS PORT FOR MRI pt requested date Start: 05-01-2025 End: 05-01-2025 Patient encounter procedure 05/01/2025 2:00 PM EDT Visit (SP) Office Hematology/Oncology [address] [id number] Saba Roa APRN.DEVELOPMENT COACH [address] [id number] OV(PORT)/LAB EARLY/CHEMO TODAY* MASCI - SAME DAY APPTS Hematology/Oncology Comment on above: OV(PORT)/LAB EARLY/C HEMO TODAY* MASCI - SAME DAY APPTS Start: 05-01-2025 End: 05-01-2025 ambulatory Hematology/Oncology Comment on above: 2ND (SO)CBC/CMP(S)/MM LA BS/24 HR URINE M SPIKE(PORT)OV TODAY* Q2WK DARZ/4-8/1 HR H YDRATION(PORT)LAB&OV EARLY* AUG OV- CBC/MM/24 HR URINE PRIOR TO OV -DARZ THEN QMO -WED APPTS (SO)Q2WK CBC/OV&CHEM O TODAY* Q2WK DARZ/4-8/1 HR H YDRATION(PORT)LAB&OV EARLY* (SO)Q2WK [id number] KIMBERLY Z/4-8/1 HR HYDRATION(PORT)LAB&OV EARLY* Start: 04-29-2025 End: 04-29-2025 ambulatory Hematology/Oncology Comment on above: 2ND Start: 04-26-2025 End: 04-26-2025 ambulatory 04/26/2025 2:00 PM [facility] Infusion Center Hematology/Oncology [address] [place] [address] 2ND Hematology/Oncology Comment on above: 2ND Start: 04-25-2025 End: 07-25-2025 Ferritin [Mass/volume] in Serum or Plasma [facility] Comment on above: Expected: 04/25/2025 , Expires: 07/25/2025 Start: 04-25-2025 End: 07-25-2025 Iron and Iron binding capacity panel - Serum or Plasma [facility] Work Phone: Comment on above: Expected: 04/25/2025 , Expires: 07/25/2025 Start: 04-25-2025 End: 04-25-2025 ambulatory Hematology/Oncology Comment on above: bmbx BMBX LABS(PORT) Start: 04-24-2025 End: 04-24-2025 ambulatory Hematology/Oncology Comment on above: 2ND Start: 04-22-2025 End: 04-22-2025 ambulatory Hematology/Oncology Comment on above: 2ND Start: 04-19-2025 End: 04-19-2025 ambulatory Hematology/Oncology Comment on above: CBC/Q2WK DARZ/3-8/1 HR HYDRATION(PORT)LAB EARLY* DARZ THEN QMO/ Q3MO ZOMETA DUE AGAIN 05/03 CBC/Q2WK DARZ/3-8/1 HR HYDRATION(PORT)* DARZ THEN QMO/ Q3MO ZOMETA DUE AGAIN 05/03 CBC/Q2WK DARZ/3-8/1 HR HYDRATION(PORT)* DARZ THEN QMO 2ND Start: 04-17-2025 End: 04-17-2025 ambulatory Hematology/Oncology Comment on above: 2ND CBC/Q2WK DARZ/3-8/1 HR HYDRATION(PORT)* DARZ THEN QMO CBC/Q2WK DARZ/3-8/1 HR HYDRATION(PORT)* DARZ THEN QMO - WED APPTS (SO)Q2WK CBC/QMO CMP (S)(PORT)/Q2WK DARZ/3-8/1 HR HYDRATION* Start: 04-15-2025 End: 04-15-2025 ambulatory Hematology/Oncology Comment on above: 2ND Start: 04-11-2025 End: 04-11-2025 ambulatory 04/11/2025 1:30 PM EDT Infusion Center Hematology/Oncology [address] [place] [address] 2ND Hematology/Oncology Comment on above: 2ND Start: 04-10-2025 End: 04-10-2025 ambulatory Hematology/Oncology Comment on above: 2ND Start: 04-09-2025 End: 04-09-2025 Patient encounter procedure Mobile PET CT Comment on above: : Multiple myeloma n ot having achieved remission (HCC) [C90.00] Start: 04-08-2025 End: 04-08-2025 ambulatory Hematology/Oncology Comment on above: 2ND Start: 04-05-2025 End: 04-05-2025 Patient encounter procedure 04/05/2025 3:10 PM EDT Visit (SP) Office Hematology/Oncology [address] [place], [place] [id number] Jadon Styles DO [address], [place] [phone] OV(PORT)/LAB EARLY/CHEMO TODAY* SAME DAY APPTS Hematology/Oncology Comment on above: OV(PORT)/LAB EARLY/C HEMO TODAY* SAME DAY APPTS Start: 04-05-2025 End: 04-05-2025 ambulatory Hematology/Oncology Comment on above: (SO)CBC/CMP(S)/MM LA BS/24 HR URINE M SPIKE(PORT)OV TODAY* Q2WK DARZ/2-8/1 HR H YDRATION(PORT)LAB EARLY* DARZ THEN QMO/ Q3MO ZOMETA DUE AGAIN 05/03 Q2WK DARZ/2-8/1 HR H YDRATION(PORT)LAB&OV EARLY* DARZ THEN QMO/ Q3MO ZOMETA DUE AGAIN 05/03 Q2WK DARZ/2-8/1 HR H YDRATION(PORT)LAB&OV EARLY* DARZ THEN QMO Start: 04-05-2025 End: 04-05-2025 ambulatory 04/05/2025 1:30 PM EDT Infusion Center Hematology/Oncology [address] [place] [address] 2ND Hematology/Oncology Comment on above: 2ND Start: 04-03-2025 End: 04-03-2025 Patient encounter procedure 04/03/2025 2:00 PM EDT Visit (SP) Office Hematology/Oncology [address] [place] [id number] Saba Roa APRN.DEVELOPMENT COACH [address] [place] [address] OV(PORT)/LAB EARLY/CHEMO TODAY* SAME DAY APPTS Hematology/Oncology Comment on above: OV(PORT)/LAB EARLY/C HEMO TODAY* SAME DAY APPTS Start: 04-03-2025 End: 04-03-2025 ambulatory Hematology/Oncology Comment on above: 2ND (SO)CBC/CMP(S)/MM LA BS/24 HR URINE M SPIKE(PORT)OV TODAY* Q2WK DARZ/2-8/1 HR H YDRATION(PORT)LAB&OV EARLY* DARZ THEN QMO Multiple myeloma not having achieved remission (HCC) (Primary Dx) PSS - Patient to [facility] Pet Scan and BMBX - see TE Start: 04-01-2025 End: 04-01-2025 ambulatory 04/01/2025 2:00 PM EDT Infusion Center Hematology/Oncology [address] [place] [address] 2ND Hematology/Oncology Comment on above: 2ND Start: 03-29-2025 End: 03-29-2025 ambulatory Hematology/Oncology Comment on above: 2ND Start: 03-27-2025 End: 03-27-2025 ambulatory Hematology/Oncology Comment on above: 2ND QMON/TUE/TUE -1 HR H YDRATION(PORT)*COMING AT 11AM Start: 03-25-2025 End: 03-25-2025 ambulatory 03/25/2025 2:30 PM EDT Infusion Center Hematology/Oncology [address] [place] [address] 2ND Hematology/Oncology Comment on above: 2ND Start: 03-22-2025 End: 03-22-2025 ambulatory Hematology/Oncology Comment on above: CBC/Q2WK DARZ(PORT)/ -/LAB EARLY* THEN QMO/ Q3MO ZOMETA DUE AGAIN 05/03 CBC/Q2WK DARZ/1 HR H YDRATION(PORT)/-/LAB EARLY* THEN QMO/ Q3MO ZOMETA DUE AGAIN 05/03 CBC/Q2WK DARZ/1 HR H YDRATION(PORT)/-* THEN QMO/ Q3MO ZOMETA DUE AGAIN 05/03 Start: 03-21-2025 End: 03-21-2025 ambulatory Hematology/Oncology Comment on above: CBC/Q2WK DARZ/1 HR H YDRATION(PORT)/-* THEN QMO/ Q3MO ZOMETA DUE AGAIN 05/03 (SO)CBC/Q2WK DARZ/1 HR HYDRATION(PORT)/-* THEN QMO Start: 03-20-2025 End: 03-20-2025 ambulatory 03/20/2025 1:30 PM EDT Infusion Center Hematology/Oncology [address] [place] [address] 2ND Hematology/Oncology Comment on above: 2ND Start: 03-18-2025 End: 03-18-2025 ambulatory 03/18/2025 2:00 PM EDT Infusion Center Hematology/Oncology [address] [place] [address] 2ND Hematology/Oncology Comment on above: 2ND Start: 03-18-2025 DIABETES SCREEN DIABETES SCREEN Nathaly sebastian [facility] Start: 03-15-2025 End: 03-15-2025 Patient encounter procedure Hematology/Oncology Comment on above: OV/LAB EARLY/CHEMO T TEZ* SAME DAY APPTS OV(PORT)/LAB EARLY/C HEMO TODAY* SAME DAY APPTS Start: 03-15-2025 End: 03-15-[address] [facility] Laboratory Comment on above: CBC/CMP/MM LABS/24 H R URINE M SPIKE* QWK DARZ/8-8/LAB EAR LY* THEN Q2WK X8, THEN QMO/ Q3MO ZOMETA DUE AGAIN 7/ (SO)CBC/CMP(S)/MM LA BS/24 HR URINE M SPIKE(PORT)OV TODAY* QWK DARZ(PORT)/8-8/L AB EARLY* THEN Q2WK X8, THEN QMO/ Q3MO ZOMETA DUE AGAIN 7/25 QWK DARZ/1 HR HYDRAT ION(PORT)/8-8/LAB EARLY* THEN Q2WK X8, THEN QMO/ Q3MO ZOMETA DUE AGAIN 7/25 QWK DARZ/1 HR HYDRAT ION(PORT)/8-8/LAB&OV EARLY* THEN Q2WK X8, THEN QMO/ Q3MO ZOMETA DUE AGAIN 05/03 Start: 03-13-2025 End: 03-13-2025 ambulatory 03/13/2025 1:30 PM EDT Infusion Center Hematology/Oncology [address] [place] [address] 2ND Hematology/Oncology Comment on above: 2ND Start: 03-11-2025 End: 03-11-2025 ambulatory 03/11/2025 1:30 PM EDT Infusion Center Hematology/Oncology [address] [place] [address] 2ND Hematology/Oncology Comment on above: 2ND Start: 03-08-2025 End: 03-08-[address] [facility] Laboratory Comment on above: CBC* QWK DARZ/7-8/LAB EAR LY* THEN Q2WK X8, THEN QMO/ Q3MO ZOMETA DUE AGAIN 05/03 CBC/QWK DARZ(PORT)/7 -8/LAB EARLY* THEN Q2WK X8, THEN QMO/ Q3MO ZOMETA DUE AGAIN 05/03 CBC/QWK DARZ/1 HR HY DRATION(PORT)/-8/LAB EARLY* THEN Q2WK X8, THEN QMO/ Q3MO ZOMETA DUE AGAIN 05/03 CBC/QWK DARZ/1 HR HY DRATION(PORT)/-8* THEN Q2WK X8, THEN QMO/ Q3MO ZOMETA DUE AGAIN 05/03 Start: 03-06-2025 End: 03-06-2025 ambulatory 03/06/2025 1:30 PM EDT Infusion Center Hematology/Oncology [address] [place] [address] 2ND Hematology/Oncology Comment on above: 2ND Start: 03-05-2025 End: 03-05-2025 ambulatory 03/05/2025 3:00 PM EDT Infusion Center Hematology/Oncology [address] [place] [address] 2ND Hematology/Oncology Comment on above: 2ND Start: 03-01-2025 End: 03-01-2025 ambulatory [facility] Laboratory Comment on above: CBC* QWK DARZ/6-8/LAB EAR LY* THEN Q2WK X8, THEN QMO CBC/QWK DARZ(PORT)/6 -8/LAB EARLY* THEN Q2WK X8, THEN QMO CBC/QWK DARZ(PORT)1 HR HYDRATION/6-8/LAB EARLY* THEN Q2WK X8, THEN QMO CBC/CMP/MM labs (no urine)/QWK DARZ(PORT)1 HR HYDRATION/6-8/LAB EARLY* THEN Q2WK X8, THEN QMO Start: 02-27-2025 End: 02-27-2025 ambulatory 02/27/2025 2:00 PM EDT Infusion Center Hematology/Oncology [address] [place] [address] 2ND Hematology/Oncology Comment on above: 2ND Start: 02-25-2025 End: 02-25-2025 ambulatory 02/25/2025 2:30 PM EDT Infusion Center Hematology/Oncology [address] [place] [address] 2ND Hematology/Oncology Comment on above: 2ND Start: 02-22-2025 End: 05-24-2025 Bacteria identified in Unspecified specimen by Respiratory culture [facility] Work Phone: Comment on above: Expected: 02/22/2025 , Expires: 05/24/2025 Start: 02-22-2025 DIABETES SCREEN DIABETES SCREEN [facility] Start: 02-22-2025 End: 02-22-[address] [facility] Comment on above: CBC* QWK DARZ/5-8/LAB EAR LY* THEN Q2WK X8, THEN QMO CBC/QWK DARZ(PORT)/5 -8/LAB EARLY* THEN Q2WK X8, THEN QMO CBC/QWK DARZ(PORT)1 HR HYDRATION/5-8/LAB EARLY* THEN Q2WK X8, THEN QMO CBC/QWK DARZ/Q 3 MO ZOMETA(PORT)1 HR HYDRATION/5-8/LAB EARLY* THEN Q2WK X8, THEN QMO PT ARRIVING AT 11:00 QWK DARZ/Q3MO ZOMETA (PORT)1 HR HYDRATION/5-8/LAB&OV EARLY* THEN Q2WK X8, THEN QMO Start: 02-22-2025 End: 02-22-2025 ambulatory Hematology/Oncology Comment on above: CBC/CMP(PORT)OV TODA Y* OV(PORT)LAB EARLY/CH EMO TODAY* MASCI (SO)CBC/CMP(S)(PORT) OV TODAY* Start: 02-20-2025 End: 02-20-2025 ambulatory 02/20/2025 2:00 PM EDT Infusion Center Hematology/Oncology [address] [place] [address] 2ND Hematology/Oncology Comment on above: 2ND Start: 02-18-[address] [facility] Start: 02-18-2025 X-ray of chest, PA a nd lateral views Chest PA and Lateral [facility] Start: 02-18-2025 XR Chest PA and Lateral [facility] Start: 02-18-2025 End: 02-18-2025 [facility] Start: 02-18-2025 End: 02-18-2025 ambulatory 02/18/2025 2:00 PM EDT Infusion Center Hematology/Oncology [address] [place] [address] 2ND Hematology/Oncology Comment on above: 2ND Start: 02-15-2025 End: 02-15-2025 ambulatory [facility] Laboratory Comment on above: CBC/CMP/MM LABS(NO U RINE)* QWK DARZ/4-8/LAB EAR LY* THEN Q2WK X8, THEN QMO CBC/CMP(S)MM LAB(NO URINE)QWK DARZ(PORT)/4-8/LAB EARLY* THEN Q2WK X8, THEN QMO CBC/CMP(S)MM LAB(NO URINE)QWK DARZ(PORT)1 HR HYDRATION/4-8/LAB EARLY* THEN Q2WK X8, THEN QMO Start: 02-13-2025 End: 02-13-2025 ambulatory 02/13/2025 1:30 PM EDT Infusion Center Hematology/Oncology [address] [place] [address] 2ND Hematology/Oncology Comment on above: 2ND Start: 02-11-2025 End: 02-11-2025 ambulatory 02/11/2025 2:30 PM EDT Infusion Center Hematology/Oncology [address] [place] [address] 2ND Hematology/Oncology Comment on above: 2ND Start: 02-08-2025 End: 02-08-2025 ambulatory [facility] Laboratory Comment on above: CBC* Q3MO ZOMETA/QWK DARZ /3-8/LAB EARLY* THEN Q2WK X8, THEN QMO/ Q3MO ZOMETA DUE AGAIN 05/03 CBC/Q3MO ZOMETA/QWK DARZ(PORT)/3-8/LAB EARLY* THEN Q2WK X8, THEN QMO/ Q3MO ZOMETA DUE AGAIN 05/03 CBC/Q3MO ZOMETA/QWK DARZ/1 HR HYDRATION(PORT)/3-8/LAB EARLY* THEN Q2WK X8, THEN QMO/ Q3MO ZOMETA DUE AGAIN 05/03 patient in at 1:30 p er request/CBC/Q3MO ZOMETA/QWK DARZ/1 HR HYDRATION(PORT)/3-8/LAB EARLY* THEN Q2WK X8, THEN QMO/ Q3MO ZOMETA DUE AGAIN 05/03 /CBC/Q3MO ZOMETA/QWK DARZ/1 HR HYDRATION(PORT)/3-8/LAB EARLY* THEN Q2WK X8, THEN QMO/ Q3MO ZOMETA DUE AGAIN 05/03 Start: 02-07-2025 End: 02-07-2025 [facility] Comment on above: (SO)CBC/BMP(S)/TSH, T4* OV/LAB EARLY/TREATME NT TODAY* 2nd Start: 02-06-2025 End: 02-06-2025 ambulatory 02/06/2025 12:00 PM EDT Infusion Center Hematology/Oncology [address] [place] [address] 2ND Hematology/Oncology Comment on above: 2ND Start: 02-04-2025 End: 02-04-2025 ambulatory 02/04/2025 1:30 PM EDT Infusion Center Hematology/Oncology [address] [place] [address] 2ND Hematology/Oncology Comment on above: 2ND Start: 02-01-2025 End: 02-01-2025 [facility] Comment on above: CBC* QWK DARZ/2-8/LAB EAR LY* THEN Q2WK X8, THEN QMO CBC/QWK DARZ(PORT)/2 -8/LAB EARLY* THEN Q2WK X8, THEN QMO (SO)CBC/QWK DARZ/1 H R HYDRATION(PORT)/2-8/LAB EARLY* THEN Q2WK X8, THEN QMO Start: 01-30-2025 Iv infusion hydratio n initial 31 min-1 hour HYDRATION IV INFUSION INIT [facility] Start: 01-25-2025 Chemotherapy care management [facility] Start: 01-25-2025 DIABETES SCREEN DIABETES SCREEN [facility] Start: 01-25-2025 End: 01-25-2025 ambulatory [facility] Laboratory Comment on above: CBC/CMP* PRE-AMANDA T&S/STRAIGH TBACK START QWK DARZ/1-8/LAB EARLY* THEN Q2WK X8, THEN QMO PRE-AMANDA T&S/START Q WK DARZ/1-8/LAB EARLY* 9:30/PRE-AMANDA T&S/ST ART QWK DARZ/-8/LAB EARLY* Start: 01-24-2025 End: 01-24-2025 Admission to same day surgery center 01/24/2025 12:00 PM EDT - 01/24/2025 1:30 PM EDT Surgery [facility] [address] [place] [address] Sandra Bradley DO [address] [place] [address] INSERTION PORT VENOUS ACCESS ADULT [facility] Comment on above: INSERTION PORT VENOU S ACCESS ADULT Start: 01-24-2025 End: 01-24-2025 Insj tunneled ctr vad w/subq port age 4 yr/> INSERTION PORT VENOUS ACCESS ADULT Multiple myeloma not having achieved remission (HCC) 01/24/2025 12:00 PM EDT [facility] Start: 01-24-2025 Subsequent hospital visit by physician 01/24/2025 12:00 PM EDT Hospital Encounter [facility] [address] [place] [address] Sandra Bradley DO [address] [place], [place] [id number] Multiple myeloma not having achieved remission (HCC) [C90.00] [facility] Comment on above: Multiple myeloma not having achieved remission (HCC) [C90.00] Start: 01-18-2025 Egd transoral biopsy single/multiple EGD BIOPSY SINGLE/MULTIPLE [facility] Start: 01-18-2025 [facility] Start: 01-17-2025 End: 04-18-2025 PT panel - Platelet poor plasma by Coagulation assay PROTHROMBIN TIME Lab STAT Multiple myeloma not having achieved remission (HCC) Expected: 01/17/2025, Expires: 04/18/2025 [facility] Work Phone: Comment on above: Expected: 01/17/2025 , Expires: 04/18/2025 Start: 01-14-2025 Iv infusion hydratio n initial 31 min-1 hour [facility] Start: 01-14-2025 End: 01-14-2025 ambulatory 01/14/2025 10:30 AM EDT Infusion Center Hematology/Oncology [address] [place], [place] [id number] [facility], [employer] [facility] [address] [facility] [place] [address] CHEMO ED Hematology/Oncology Comment on above: CHEMO ED Start: 01-11-2025 End: 04-12-2025 Chronic hepatitis differentiation between hepatitis B and C virus panel - Serum or Plasma [facility] Comment on above: Expected: 01/11/2025 , Expires: 04/12/2025 Start: 01-11-2025 End: 04-12-2025 Cobalamin (Vitamin B12) [Mass/volume] in Serum or Plasma [facility] Comment on above: Expected: 01/11/2025 , Expires: 04/12/2025 Start: 01-11-2025 End: 04-12-2025 Ferritin [Mass/volume] in Serum or Plasma [facility] Comment on above: Expected: 01/11/2025 , Expires: 04/12/2025 Start: 01-11-2025 End: 04-12-2025 Folate [Mass/volume] in Serum or Plasma [facility] Comment on above: Expected: 01/11/2025 , Expires: 04/12/2025 Start: 01-11-2025 End: 04-12-2025 Iron and Iron binding capacity panel - Serum or Plasma [facility] Work Phone: Comment on above: Expected: 01/11/2025 , Expires: 04/12/2025 Start: 01-11-2025 End: 01-11-2025 ambulatory 01/11/2025 11:20 AM EDT Visit (SP) Office Hematology/Oncology [address] [place] [address] Jadon Styles DO [address] [place] [address] OV Hematology/Oncology Comment on above: OV Start: 01-09-2025 Iv infusion hydratio n initial 31 min-1 hour HYDRATION IV INFUSION [facility] Start: 01-03-2025 End: 01-03-2025 ambulatory 01/03/2025 2:00 PM EDT Results Only [facility] [address] [place] [address] CBC/CMP/myeloma labs with 24-hour urine M spike* [facility] Comment on above: CBC/CMP/myeloma labs with 24-hour urine M spike* Start: 12-31-2024 Iv infusion hydratio n initial 31 min-1 hour HYDRATION IV INFUSION [facility] Start: 12-28-2024 End: 12-28-2024 Patient encounter procedure Cat Scan Comment on above: Pathological fractur e, other site, initial encounter for fracture [M84.48XA] Cancer related pain [G89.3] Start: 12-26-2024 End: 12-26-2024 Follow-up encounter 12/26/2024 3:00 PM EDT [facility] [address] [place] [address] Anita Brannon MD [address] [place] [address] Follow up [facility] Comment on above: Follow up Start: 12-24-2024 DIABETES SCREEN DIABETES SCREEN [facility] Start: 12-24-2024 End: 12-24-2024 Follow-up encounter 12/24/2024 8:00 AM EDT [facility] [address] [id number] Anita Brannon MD [address] [place] [address] Follow up [facility] Comment on above: Follow up Start: 12-23-2024 Patient discharge [facility] Start: 12-19-2024 Referral to gastroenterology service [facility] Start: 12-18-2024 Following clinical pathway protocol [facility] Start: 12-18-2024 Assessment of risk o f venous thromboembolism [facility] Start: 12-18-2024 Insertion of cathete r into peripheral vein [facility] Start: 12-18-2024 Providing care accor ding to standard [facility] Start: 12-18-2024 Provision of activit y privileges [facility] Start: 12-18-[address] [facility] Start: 12-18-2024 Verification routine [facility] Start: 12-18-2024 Admission procedure [facility] Start: 12-18-2024 Hospital admission, emergency, from emergency room, medical nature [facility] Start: 12-18-2024 Patient referral to dietitian [facility] Start: 12-18-[address] [facility] Start: 11-16-2024 End: 11-16-2024 ambulatory 11/16/2024 1:30 PM EST Infusion Center Hematology/Oncology [address] [place] [address] EKG/2nd Hematology/Oncology Comment on above: EKG/2nd Start: 11-15-2024 End: 11-15-2024 ambulatory [facility] Comment on above: (SO)CBC/BMP(S)* 2nd (SO)CBC/BMP(S)/TSH, T4* Start: 11-05-2024 End: 11-05-2024 Patient encounter procedure 11/05/2024 3:45 PM EST Office Visit General Surgery [address] [place] [address] Melissa Cunningham MD [address] [place] [address] 30 minutes for left-sided fine-needle aspiration of the thyroid gland General Surgery Comment on above: 30 minutes for left- sided fine-needle aspiration of the thyroid gland Start: 10-29-2024 End: 10-29-2024 Patient encounter procedure 10/29/2024 3:45 PM EST Office Visit General Surgery [address] [place], [place] [phone] Melissa Cunningham MD [address] [place] [address] FNA of thyroid nodule General Surgery Comment on above: FNA of thyroid nodul e Start: 10-19-2024 End: 10-19-2024 ambulatory 10/19/2024 4:10 PM EST Visit (SP) Office Hematology/Oncology [address] [place], [place] [id number] Jadon Styles DO [address] [place] [address] 3 MO OV/LABS & CHEMO EARLY* Hematology/Oncology Comment on above: 3 MO OV/LABS & CHEMO EARLY* Start: 10-19-2024 End: 10-19-2024 ambulatory [facility] [place] [facility] Laboratory Comment on above: (SO)CBC/CMP/MYELOMA LABS* (SO)CBC/Q2WK VELCADE /AUTH EXP 07/04/25* Start: 10-18-2024 End: 10-18-2024 Patient encounter procedure 10/18/2024 3:15 PM EST Appointment Radiology [address] [place], [place] [id number] Thyroid nodule [E04.1] Radiology Comment on above: Thyroid nodule [E04. 1] Start: 10-11-2024 End: 01-10-2025 Thyrotropin [Units/volume] in Serum or Plasma THYROID STIMULATING HORMONE Lab Routine Thyroid nodule Expected: 10/11/2024, Expires: 01/10/2025 [facility] Comment on above: Expected: 10/11/2024 , Expires: 01/10/2025 Start: 10-11-2024 End: 01-10-2025 Thyroxine (T4) free [Mass/volume] in Serum or Plasma T4 FREE/FREE THYROXINE Lab Routine Thyroid nodule Expected: 10/11/2024, Expires: 01/10/2025 [facility] Comment on above: Expected: 10/11/2024 , Expires: 01/10/2025 Start: 10-11-2024 End: 10-11-2024 ambulatory 10/11/2024 12:10 PM EST Visit (SP) Office Hematology/Oncology [address] [place] [id number] Jadon Styles DO [address] [place] [phone] ov Hematology/Oncology Comment on above: ov Start: 10-10-2024 Medicare Advantage A nnual Wellness Visit Medicare Advantage Annual Wellness Visit [facility] Start: 10-05-2024 End: 10-05-2024 ambulatory [facility] Comment on above: (SO)CBC* (SO)CBC/Q2WK VELCADE /AUTH EXP 07/04/25* Start: 09-25-2024 End: 09-25-2024 Patient encounter procedure Mobile PET CT Comment on above: Multiple myeloma not having achieved remission (HCC) [C90.00] H-T/Multiple myeloma not having achieved remission (HCC) [C90.00] Start: 09-20-2024 End: 09-20-[address] [facility] Comment on above: (SO)CBC* (SO)CBC/Q2WK VELCADE /AUTH EXP 07/04/25* Start: 09-14-2024 End: 09-14-2024 ambulatory 09/14/2024 10:00 AM EST Results [facility] [address] [place] [id number] LAB* [facility] Comment on above: LAB* Start: 09-13-2024 End: 12-13-2024 Ferritin [Mass/volume] in Serum or Plasma FERRITIN Lab Routine Low iron Expected: 09/13/2024, Expires: 12/13/2024 [facility] Work Phone: Comment on above: Expected: 09/13/2024 , Expires: 12/13/2024 Start: 09-13-2024 End: 12-13-2024 Transferrin receptor.soluble [Mass/volume] in Serum or Plasma [employer] Lab Routine Low iron Expected: 09/13/2024, Expires: 12/13/2024 [facility] Comment on above: Expected: 09/13/2024 , Expires: 12/13/2024 Start: 09-11-2024 End: 09-11-2024 ambulatory 09/11/2024 4:00 PM EST Visit (SP) Office Hematology/Oncology [address] [place] [address] Jadon Styles DO [address], [place] [id number] OV/MRI 09/03* Hematology/Oncology Comment on above: OV/MRI 09/03* Start: 09-11-2024 End: 12-11-2024 Iron and Iron binding capacity panel - Serum or Plasma [facility] Comment on above: Expected: 09/11/2024 , Expires: 12/11/2024 Start: 09-11-2024 End: 12-11-2024 Magnesium [Mass/volume] in Serum or Plasma [facility] Work Phone: Comment on above: Expected: 09/11/2024 , Expires: 12/11/2024 Start: 09-11-2024 End: 12-11-2024 Phosphate [Mass/volume] in Serum or Plasma [facility] Comment on above: Expected: 09/11/2024 , Expires: 12/11/2024 Start: 09-07-2024 End: 09-07-2024 ambulatory [facility] Comment on above: (SO)CBC* (SO)CBC/Q2WK VELCADE /AUTH EXP 07/04/25* Start: 09-03-2024 End: 09-03-2024 Patient encounter procedure Radiology Comment on above: MRI THORACIC SPINE W O/W IVCON MRI CERVICAL SPINE W O/W IVCON MRI LUMBAR SPINE WO/ W IVCON MRI BRAIN WO/W IVCON MRI PELVIS ORTHO GEN ERAL WO/W IVCON Start: 08-23-2024 End: 08-23-2024 ambulatory [facility] Comment on above: (SO)CBC* (SO)CBC/Q2WK VELCADE /AUTH EXP 07/04/25* (SO)CBC/BMP(S)* (SO)CBC/BMP(S)/START Q3MO ZOMETA/AUTH EXP ?/Q2WK VELCADE/AUTH EXP 07/04/25* (SO)CBC/BMP(S)/START Q3MO ZOMETA/AUTH EXP ? (SO)CBC/BMP(S)/START Q3MO ZOMETA/AUTH EXP 08/09/25* 2nd Start: 08-09-2024 End: 08-09-2024 [facility] Comment on above: (SO)CBC* (SO)CBC/Q2WK VELCADE /AUTH EXP 07/04/25* Start: 07-26-2024 End: 07-26-2024 [facility] Comment on above: CBC* CBC/Q2WK VELCADE/AUT H EXP 07/04/25* (SO)CBC* (SO)CBC/Q2WK VELCADE /AUTH EXP 07/04/25* Start: 07-12-2024 End: 07-12-2024 [facility] Comment on above: CBC/CMP(S)* CBC/CMP(S)/START Q2W K VELCADE/AUTH EXP 07/04/25* 12:30 per Cara/Pt n eeds to sign consent w/ Shay?/CBC/CMP(S)/START Q2WK VELCADE/AUTH EXP 07/04/25* Start: 06-21-2024 End: 06-21-2024 ambulatory 06/21/2024 11:30 AM EDT Visit (SP) Office Hematology/Oncology [address], [place] [id number] Jaodn Styles DO [address], [place] [id number] CBC/CMP/LDH/B2/MM on MO OV* Hematology/Oncology Comment on above: CBC/CMP/LDH/B2/MM on MO OV* Start: 06-21-2024 End: 06-21-2024 ambulatory Hematology/Oncology Comment on above: CBC/CMP/LDH/B2/MM on 06/21/ 3 MO OV* (LABS 06/21)/3 MO OV* (Masci only per patient) Start: 06-18-2024 End: 06-18-2024 ambulatory 06/18/2024 10:00 AM EDT Results Only [facility] [address] [place] [id number] CBC/CMP/LDH/B2/MM [facility] Comment on above: CBC/CMP/LDH/B2/MM Start: 2024 Influenza vaccination C [facility] Start: 2024 RSV Vaccine (1 - 1-d ose 60+ series) RSV Vaccine (1 - 1-dose 60+ series) [facility] Start: 2024 RSV Vaccine (1 - Ris k 60-74 years 1-dose series) RSV Vaccine (1 - Risk 60-74 years 1-dose series) [facility] Start: 03-22-2024 End: 03-22-2024 ambulatory 03/22/2024 11:00 AM EDT Visit (SP) Office Hematology/Oncology [address] [place] [address] Saba Roa APRN.DEVELOPMENT COACH [address] [place] [address] 3 MO OV * masci Hematology/Oncology Comment on above: 3 MO OV * masci Start: 03-09-2024 End: 03-09-2024 ambulatory 03/09/2024 9:40 AM EDT Visit (SP) Office Hematology/Oncology [address] [place] [address] Jadon Styles DO [address] [place] [place] [address] 3 MO OV * Hematology/Oncology Comment on above: 3 MO OV * Start: 03-02-2024 End: 03-02-2024 ambulatory 03/02/2024 10:00 AM EDT Results Only [facility] [address] [place] [id number] CBC/CMP/MYELOMA LABS [facility] Comment on above: CBC/CMP/MYELOMA LABS Start: 11-09-2023 Shingrix Vaccine (2 of 2) Wilson grix Vaccine (2 of 2) [facility] Start: 10-10-2023 Behavioral Health Screening Behavioral Health Screening [facility] Start: 10-10-2023 Depression Assessment Depression Ass essment [facility] Start: 2023 Influenza vaccination [facility] Start: 05-25-2023 End: 07-25-2023 [id number] [Mass/volume] in Serum or Plasma [facility] Work Phone: Comment on above: Expected: 05/25/2023 , Expires: 07/25/2023 Start: 05-25-2023 End: 07-25-2023 KAPPA/VICTORIA,FREE,SER [facility] Work Phone: Comment on above: Expected: 05/25/2023 , Expires: 07/25/2023 Start: 05-25-2023 End: 07-25-2023 MONOCLONAL PROT UR W/INTERP [facility] Work Phone: Comment on above: Expected: 05/25/2023 , Expires: 07/25/2023 Start: 05-25-2023 End: 07-25-2023 MONOCLONAL PROTEIN, SERUM (BLOOD) [facility] Work Phone: Comment on above: Expected: 05/25/2023 , Expires: 07/25/2023 Start: 05-25-2023 End: 07-25-2023 PROTEIN [facility] RND [facility] Work Phone: Comment on above: Expected: 05/25/2023 , Expires: 07/25/2023 Start: 05-25-2023 End: 07-25-2023 PROTEIN ELECTROPHORESIS SERUM W/INTERP [facility] Work Phone: Comment on above: Expected: 05/25/2023 , Expires: 07/25/2023 Start: 03-16-2023 End: 05-16-2023 CBC W Auto Differential panel - Blood CBC + DIFF Lab Routine Multiple myeloma in remission (HCC) Expected: 03/16/2023, Expires: 05/16/2023 [facility] Work Phone: Comment on above: Expected: 03/16/2023 , Expires: 05/16/2023 Start: 03-16-2023 End: 05-16-2023 Comprehensive metabolic 2000 panel - Serum or Plasma COMP METABOLIC PANEL Lab Routine Multiple myeloma in remission (HCC) Expected: 03/16/2023, Expires: 05/16/2023 [facility] Work Phone: Comment on above: Expected: 03/16/2023 , Expires: 05/16/2023 Start: 03-16-2023 End: 05-16-2023 KAPPA/VICTORIA,FREE,SER KAPPA/VICTORIA,FREE,SER Lab Routine Multiple myeloma in remission (HCC) Expected: 03/16/2023, Expires: 05/16/2023 [facility] Work Phone: Comment on above: Expected: 03/16/2023 , Expires: 05/16/2023 Start: 03-16-2023 End: 05-16-2023 PROT, TOT AND PROT ELECTRO W/ IMMUNOFIX PROT, TOT AND PROT ELECTRO W/ IMMUNOFIX Lab Routine Multiple myeloma in remission (HCC) Expected: 03/16/2023, Expires: 05/16/2023 [facility] Work Phone: Comment on above: Expected: 03/16/2023 , Expires: 05/16/2023 Start: 12-09-2022 End: 02-08-2023 [id number] [Mass/volume] in Serum or Plasma [facility] Work Phone: Comment on above: Expected: 12/09/2022 , Expires: 02/08/2023 Start: 12-09-2022 End: 02-08-2023 Calcium.ionized [Moles/volume] in Blood [facility] Work Phone: Comment on above: Expected: 12/09/2022 , Expires: 02/08/2023 Start: 12-09-2022 End: 02-08-2023 MONOCLONAL PROTEIN, SERUM (BLOOD) [facility] Work Phone: Comment on above: Expected: 12/09/2022 , Expires: 02/08/2023 Start: 12-09-2022 End: 02-08-2023 Phosphate [Mass/volume] in Serum or Plasma [facility] Work Phone: Comment on above: Expected: 12/09/2022 , Expires: 02/08/2023 Start: 12-09-2022 End: 02-08-2023 PROTEIN ELECTROPHORESIS SERUM W/INTERP [facility] Work Phone: Comment on above: Expected: 12/09/2022 , Expires: 02/08/2023 Start: 10-10-2022 DEPRESSION ASSESSMENT DEPRESSION ASS [facility] Start: 07-26-2022 Patient [facility] Work Phone: Start: 06-29-2022 End: 08-29-2022 PROTEIN ELECTRO, 24-HOUR URINE PROTEIN ELECTRO, 24-HOUR URINE Lab Routine Multiple myeloma not having achieved remission (HCC) Expected: 06/29/2022, Expires: 08/29/2022 [facility] Work Phone: Comment on above: Expected: 06/29/2022 , Expires: 08/29/2022 Start: 2022 Influenza vaccination C [facility] Start: 03-02-2022 Adult depression screening assessment DEPRESSION SCREENING [facility] Start: 10-10-2021 DEPRESSION ASSESSMENT DEPRESSION ASS ESSMENT [facility] Start: 09-07-2021 HEPATITIS B (2 of 3 - Hep B Twinrix 3-dose series) HEPATITIS B (2 of 3 - Hep B Twinrix 3-dose series) [facility] Start: 09-07-2021 Hepatitis B Vaccine (2 of 3 - Hep B Twinrix 3-dose series) Hepatitis B Vaccine (2 of 3 - Hep B Twinrix 3-dose series) [facility] Start: 05-04-2020 Colonoscopy COLONOSCOPY [facility] Start: 05-04-2020 COLORECTAL CANCER SCREENING COLORECTAL CANCER SCREENING [facility] Start: 02-22-2017 End: 02-22-2017 Appointment Appointment [facility] Work Phone: Start: 2014 SHINGRIX VACCINE (1 of 2) WILSON GRIX VACCINE (1 of 2) [facility] Start: 2009 COLOGUARD (FIT-DNA) COLOGUARD (FIT-D NA) [facility] Start: 2009 Colonoscopy COLONOSCOPY [facility] Start: 2009 COLORECTAL CANCER SCREENING COLORECTAL CANCER SCREENING [facility] Start: [address] COLONOGRAPHY [facility] Start: 2009 FECAL OCCULT BLOOD FECAL OCCULT BLOO D [facility] Start: 2009 Lipid 1996 panel - S nataly or Plasma Lipid Screening [facility] Start: 2009 Lipid panel Lipid Screening [facility] Start: 2009 LIPID SCREEN LIPID SCREEN [facility] Start: 2009 Screening for malign ant neoplasm of colon [facility] Start: 2009 SIGMOIDOSCOPY SIGMOIDOSCOPY [place] Start: 2004 Mammography [facility] Start: 2004 Screening for malign ant neoplasm of breast Mammogram Screening [facility] Start: 1994 HPV TESTING HPV TESTING [facility] Start: 1994 Screening for malign ant neoplasm of cervix HPV Testing [facility] Start: 1985 PAP TESTING PAP TESTING [facility] Start: 1985 Screening for malign ant neoplasm of cervix Pap Testing [facility] Start: 1983 SHINGRIX VACCINE (1 of 2) WILSON GRIX VACCINE (1 of 2) [facility] Start: 1982 Anxiety Screening Anxiety Screening [facility] Start: 1982 Depression Screening Depression Scre ening [facility] Start: 1982 HEPATITIS C SCREENING HEPATITIS C SC REENING [facility] Start: 1976 COVID-19 VACCINE (1) COVID-19 VACCIN E (1) [facility] Start: 1975 Screening for malign ant neoplasm of cervix Cervical Cancer Screening [facility] Start: 1969 COVID-19 VACCINE (#1) COVID-19 VACCI NE (#1) [facility] Start: 1964 COVID-19 VACCINE (#1) COVID-19 VACCI NE (#1) [facility] End: 04-02-2026 [id number] [Mass/volume] in Serum or Plasma B2 MICROGLOBULIN Lab Routine Multiple myeloma not having achieved remission (HCC) Every 3 months for 4 Occurrences starting 04/03/2025 until 04/02/2026 [facility] Comment on above: Every 3 months for 4 Occurrences starting 04/03/2025 until 04/02/2026 [id number] [Mass/volume] in Serum or Plasma B2 MICROGLOBULIN Lab Routine Multiple myeloma not having achieved remission (HCC) 04/03/2025 1:17 PM EDT [facility] [id number] [Mass/volume] in Serum or Plasma B2 MICROGLOBULIN Lab Routine Multiple myeloma not having achieved remission (HCC) 06/26/2025 10:45 AM EDT [facility] BONE MARROW ANALYSIS BONE MARROW ANALYSIS Lab Routine Multiple myeloma not having achieved remission (HCC) 04/25/2025 12:53 PM T [facility] Work Phone: BONE MARROW CHROMOSO ME ANAL BONE MARROW CHROMOSOME ANAL Lab Routine Multiple myeloma not having achieved remission (HCC) 04/25/2025 12:53 PM T [facility] End: 05-29-2024 CBC W Auto Differential panel - Blood CBC + DIFF Lab Routine Multiple myeloma in remission (HCC) Every 2 months for 6 Occurrences starting 05/30/2023 until 05/29/2024 [facility] Work Phone: Comment on above: Every 2 months for 6 Occurrences starting 05/30/2023 until 05/29/2024 End: 05-29-2024 Comprehensive metabolic 2000 panel - Serum or Plasma COMP METABOLIC PANEL Lab Routine Multiple myeloma in remission (HCC) Every 2 months for 6 Occurrences starting 05/30/2023 until 05/29/2024 [facility] Work Phone: Comment on above: Every 2 months for 6 Occurrences starting 05/30/2023 until 05/29/2024 End: 04-02-2026 Comprehensive metabolic 2000 panel - Serum or Plasma COMPREHENSIVE METABOLIC PANEL Lab STAT Multiple myeloma not having achieved remission (HCC) Once per month for 12 Occurrences starting 04/03/2025 until 04/02/2026 [facility] Work Phone: Comment on above: Once per month for 1 2 Occurrences starting 04/03/2025 until 04/02/2026 End: 01-23-2026 CT Thoracic spine WO contrast CT THORACIC SPINE WO IVCON Radiology Routine Pathological fracture, other site, initial encounter for fracture 1 Occurrences starting 12/24/2024 until 01/23/2026 [facility] Work Phone: Comment on above: 1 Occurrences starti ng 12/24/2024 until 01/23/2026 DNA EXTRACTION BONE MARROW (BUFFY COAT) DNA EXTRACTION BONE MARROW (BUFFY COAT) Lab Routine Multiple myeloma not having achieved remission (HCC) 04/25/2025 12:53 PM EDT [facility] End: 11-13-2025 ECG COMPLETE ECG COMPLETE ECG Routine Multiple myeloma not having achieved remission (HCC) 1 Occurrences starting 11/13/2024 until 11/13/2025 [facility] Work Phone: Comment on above: 1 Occurrences starti ng 11/13/2024 until 11/13/2025 Elastase.pancreatic [Presence] in Stool [facility] FISH FOR PLASMA CELL MYELOMA FISH FOR PLASMA CELL MYELOMA Lab Routine Multiple myeloma not having achieved remission (HCC) 04/25/2025 12:53 PM EDT [facility] FLOW CYTOMETRY FOR LEUKEMIA/LYMPHOMA (FCLL) FLOW CYTOMETRY FOR LEUKEMIA/LYMPHOMA (FCLL) Lab Routine Multiple myeloma not having achieved remission (HCC) 04/25/2025 12:53 PM EDT [facility] FLOW CYTOMETRY FOR LEUKEMIA/LYMPHOMA (FCLL) PERFORMABLE FLOW CYTOMETRY FOR LEUKEMIA/LYMPHOMA (FCLL) PERFORMABLE Lab Routine Multiple myeloma not having achieved remission (HCC) 04/25/2025 12:53 PM EDT [facility] End: 04-20-2024 Hepatobil syst imag inc gb w/pharma intervenj NM HEPATOBILIARY W EF AND/OR RX Radiology Routine Nausea 1 Occurrences starting 03/22/2023 until 04/20/2024 [facility] Work Phone: Comment on above: 1 Occurrences starti ng 03/22/2023 until 04/20/2024 IMMUNOFIXATION SCREE N, SERUM IMMUNOFIXATION SCREEN, SERUM Lab Routine Multiple myeloma not having achieved remission (HCC) 04/03/2025 1:17 PM T [facility] IMMUNOFIXATION SCREE N, SERUM IMMUNOFIXATION SCREEN, SERUM Lab Routine Multiple myeloma not having achieved remission (HCC) 06/26/2025 10:45 AM T [facility] IMMUNOGLOBULINS,IGG, IGA,I GM IMMUNOGLOBULINS,IGG,IGA, IGM Lab Routine Multiple myeloma not having achieved remission (HCC) 03/15/2025 1:34 PM [facility] Work Phone: End: 04-02-2026 IMMUNOGLOBULINS,IGG,IGA,I GM IMMUNOGLOBULINS,IGG,IGA, IGM Lab Routine Multiple myeloma not having achieved remission (HCC) Every 3 months for 4 Occurrences starting 04/03/2025 until 04/02/2026 [facility] Comment on above: Every 3 months for 4 Occurrences starting 04/03/2025 until 04/02/2026 IMMUNOGLOBULINS,IGG, IGA,I GM IMMUNOGLOBULINS,IGG,IGA, IGM Lab Routine Multiple myeloma not having achieved remission (HCC) 04/03/2025 1:17 PM [facility] IMMUNOGLOBULINS,IGG, IGA,I GM IMMUNOGLOBULINS,IGG,IGA, IGM Lab Routine Multiple myeloma not having achieved remission (HCC) 06/26/2025 10:45 AM [facility] End: 05-29-2024 KAPPA/VICTORIA,FREE,SER KAPPA/VICTORIA,FREE,SER Lab Routine Multiple myeloma in remission (HCC) Every 2 months for 6 Occurrences starting 05/30/2023 until 05/29/2024 [facility] Work Phone: Comment on above: Every 2 months for 6 Occurrences starting 05/30/2023 until 05/29/2024 KAPPA/VICTORIA,FREE,SER KAPPA/VICTORIA,F REE,SER Lab Routine Multiple myeloma not having achieved remission (HCC) 03/15/2025 1:34 PM [facility] End: 04-02-2026 KAPPA/VICTORIA,FREE,SER KAPPA/VICTORIA,FREE,SER Lab Routine Multiple myeloma not having achieved remission (HCC) Every 3 months for 4 Occurrences starting 04/03/2025 until 04/02/2026 [facility] Comment on above: Every 3 months for 4 Occurrences starting 04/03/2025 until 04/02/2026 KAPPA/VICTORIA,FREE,SER KAPPA/VICTORIA,F REE,SER Lab Routine Multiple myeloma not having achieved remission (HCC) 04/03/2025 1:17 PM EDT [facility] KAPPA/VICTORIA,FREE,SER KAPPA/VICTORIA,F REE,SER Lab Routine Multiple myeloma not having achieved remission (HCC) 06/26/2025 10:45 AM EDT [facility] End: 04-02-2026 Lactate dehydrogenase [Enzymatic activity/volume] in Serum or Plasma LACTATE DEHYDROGENASE Lab Routine Multiple myeloma not having achieved remission (HCC) Every 3 months for 4 Occurrences starting 04/03/2025 until 04/02/2026 [facility] Comment on above: Every 3 months for 4 Occurrences starting 04/03/2025 until 04/02/2026 MG Breast - bilatera l Screening [facility] Work Phone: Microscopic urinalysis [facility] MONOCLONAL PROT 24 U R W/INTERP MONOCLONAL PROT 24 UR W/INTERP Lab Routine Multiple myeloma not having achieved remission (HCC) 06/29/2022 8:28 AM EDT [facility] Work Phone: MONOCLONAL PROT 24 U R W/INTERP MONOCLONAL PROT 24 UR W/INTERP Lab Routine Multiple myeloma in remission (HCC) Ordered: 12/09/2022 [facility] Work Phone: Comment on above: Ordered: 12/09/2022 MONOCLONAL PROT 24 U R W/INTERP MONOCLONAL PROT 24 UR W/INTERP Lab Routine Multiple myeloma in remission (HCC) Ordered: 03/08/2023 [facility] Work Phone: Comment on above: Ordered: 03/08/2023 MONOCLONAL PROT 24 U R W/INTERP MONOCLONAL PROT 24 UR W/INTERP Lab Routine Multiple myeloma, remission status unspecified (HCC) Ordered: 06/21/2024 [facility] Comment on above: Ordered: 06/21/2024 MONOCLONAL PROT 24 U R W/INTERP MONOCLONAL PROT 24 UR W/INTERP Lab Routine Multiple myeloma not having achieved remission (HCC) Ordered: 03/20/2025 [facility] Comment on above: Ordered: 03/20/2025 MONOCLONAL PROT UR W/INTERP MONOCLONAL PROT UR W/INTERP Lab Routine Multiple myeloma not having achieved remission (HCC) 03/15/2025 1:34 PM EDT [facility] End: 05-29-2024 MONOCLONAL PROTEIN, SERUM (BLOOD) MONOCLONAL PROTEIN, SERUM (BLOOD) Lab Routine Multiple myeloma in remission (HCC) Every 2 months for 6 Occurrences starting 05/30/2023 until 05/29/2024 [facility] Work Phone: Comment on above: Every 2 months for 6 Occurrences starting 05/30/2023 until 05/29/2024 End: 04-02-2026 MONOCLONAL PROTEIN, SERUM (BLOOD) MONOCLONAL PROTEIN, SERUM (BLOOD) Lab Routine Multiple myeloma not having achieved remission (HCC) Every 3 months for 4 Occurrences starting 04/03/2025 until 04/02/2026 [facility] Comment on above: Every 3 months for 4 Occurrences starting 04/03/2025 until 04/02/2026 MONOCLONAL PROTEIN, SERUM (BLOOD) MONOCLONAL PROTEIN, SERUM (BLOOD) Lab Routine Multiple myeloma not having achieved remission (HCC) 04/03/2025 1:17 PM EDT [facility] MONOCLONAL PROTEIN, SERUM (BLOOD) MONOCLONAL PROTEIN, SERUM (BLOOD) Lab Routine Multiple myeloma not having achieved remission (HCC) 06/26/2025 10:45 AM T [facility] End: 01-05-2025 MR Biliary ducts and Pancreatic duct WO and W contrast IV MRI PANC/VENANCIO WO/W IVCON Radiology Routine Pancreatic cyst 1 Occurrences starting 12/07/2023 until 01/05/2025 [facility] Work Phone: Comment on above: 1 Occurrences starti ng 12/07/2023 until 01/05/2025 MR Biliary ducts and Pancreatic duct WO and W contrast IV MRI PANC/VENANCIO WO/W IVCON Radiology Routine Pancreatic cyst 01/13/2024 9:22 AM EDT [facility] Work Phone: End: 09-12-2025 MR Brain WO and W contrast IV MRI BRAIN WO/W IVCON Radiology Routine Multiple myeloma not having achieved remission (HCC) 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) Compression fracture of thoracic vertebra, unspecified thoracic vertebral level, sequela New daily persistent headache Pathological fracture, other site, initial encounter for fracture 1 Occurrences starting 08/13/2024 until 09/12/2025 [facility] Work Phone: Comment on above: 1 Occurrences starti ng 08/13/2024 until 09/12/2025 End: 09-12-2025 MR Cervical spine WO and W contrast IV MRI CERVICAL SPINE WO/W IVCON Radiology Routine Multiple myeloma not having achieved remission (HCC) 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) Compression fracture of thoracic vertebra, unspecified thoracic vertebral level, sequela New daily persistent headache Pathological fracture, other site, initial encounter for fracture 1 Occurrences starting 08/13/2024 until 09/12/2025 [facility] Comment on above: 1 Occurrences starti ng 08/13/2024 until 09/12/2025 End: 09-12-2025 MR Lumbar spine WO and W contrast IV MRI LUMBAR SPINE WO/W IVCON Radiology Routine Multiple myeloma not having achieved remission (HCC) 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) Compression fracture of thoracic vertebra, unspecified thoracic vertebral level, sequela New daily persistent headache Pathological fracture, other site, initial encounter for fracture 1 Occurrences starting 08/13/2024 until 09/12/2025 [facility] Comment on above: 1 Occurrences starti ng 08/13/2024 until 09/12/2025 End: 09-12-2025 MR Pelvis WO and W contrast IV MRI PELVIS ORTHO GENERAL WO/W IVCON Radiology Routine Multiple myeloma not having achieved remission (HCC) 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) Compression fracture of thoracic vertebra, unspecified thoracic vertebral level, sequela New daily persistent headache Pathological fracture, other site, initial encounter for fracture 1 Occurrences starting 08/13/2024 until 09/12/2025 [facility] Comment on above: 1 Occurrences starti ng 08/13/2024 until 09/12/2025 MR Pelvis WO and W contrast IV MRI PELVIS ORTHO GENERAL WO/W IVCON Radiology Routine Multiple myeloma not having achieved remission (HCC) 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) Compression fracture of thoracic vertebra, unspecified thoracic vertebral level, sequela New daily persistent headache Pathological fracture, other site, initial encounter for fracture 09/03/2024 12:09 PM EST [facility] Work Phone: End: 09-12-2025 MR Thoracic spine WO and W contrast IV MRI THORACIC SPINE WO/W IVCON Radiology Routine Multiple myeloma not having achieved remission (HCC) 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) Compression fracture of thoracic vertebra, unspecified thoracic vertebral level, sequela New daily persistent headache Pathological fracture, other site, initial encounter for fracture 1 Occurrences starting 08/13/2024 until 09/12/2025 [facility] Comment on above: 1 Occurrences starti ng 08/13/2024 until 09/12/2025 End: 01-05-2025 MR Unspecified body region 3D post processing MRI 3D POST PROCESSING Radiology Routine Pancreatic cyst 1 Occurrences starting 12/07/2023 until 01/05/2025 [facility] Work Phone: Comment on above: 1 Occurrences starti ng 12/07/2023 until 01/05/2025 MR Unspecified body region 3D post processing MRI 3D POST PROCESSING Radiology Routine Pancreatic cyst 01/13/2024 9:22 AM EDT [facility] Work Phone: End: 07-29-2024 Mri brain brain stem w/o w/contrast material MRI BRAIN WO/W IVCON Radiology Routine [place] headache 1 Occurrences starting 06/30/2023 until 07/29/2024 [facility] Work Phone: Comment on above: 1 Occurrences starti ng 06/30/2023 until 07/29/2024 End: 01-05-2025 NM Stomach Views for gastric emptying solid phase W radionuclide PO NM GASTRIC EMPTYING SOLID Radiology Routine Early satiety 1 Occurrences starting 12/07/2023 until 01/05/2025 [facility] Work Phone: Comment on above: 1 Occurrences starti ng 12/07/2023 until 01/05/2025 Organism count, microscopic method [facility] Patient Education [facility] Work Phone: Patient referral [facility] Work Phone: End: 10-11-2025 PET+CT Whole body Bone W 18F-NaF IV NM PET/CT WHOLE BODY SUBSEQUENT Radiology Routine Multiple myeloma not having achieved remission (HCC) 1 Occurrences starting 09/11/2024 until 10/11/2025 [facility] Comment on above: 1 Occurrences starti ng 09/11/2024 until 10/11/2025 PET+CT Whole body Dre ne W 18F-NaF IV NM PET/CT WHOLE BODY SUBSEQUENT Radiology Routine Multiple myeloma not having achieved remission (HCC) 09/25/2024 9:05 AM EST [facility] Work Phone: End: 05-02-2026 PET+CT Whole body Bone W 18F-NaF IV NM PET/CT WHOLE BODY SUBSEQUENT Radiology Routine Multiple myeloma not having achieved remission (HCC) 1 Occurrences starting 04/02/2025 until 05/02/2026 [facility] Work Phone: Comment on above: 1 Occurrences starti ng 04/02/2025 until 05/02/2026 PROT ELEC UR 24HR W/ M SPIKE (P) PROT ELEC UR 24HR W/M SPIKE (P) Lab Routine Multiple myeloma in remission (HCC) Ordered: 12/09/2022 [facility] Work Phone: Comment on above: Ordered: 12/09/2022 PROT ELEC UR 24HR W/ M SPIKE (P) PROT ELEC UR 24HR W/M SPIKE (P) Lab Routine Multiple myeloma in remission (HCC) Ordered: 03/08/2023 [facility] Work Phone: Comment on above: Ordered: 03/08/2023 PROT ELEC UR 24HR W/ M SPIKE (P) PROT ELEC UR 24HR W/M SPIKE (P) Lab Routine Multiple myeloma, remission status unspecified (HCC) Ordered: 06/21/2024 [facility] Comment on above: Ordered: 06/21/2024 PROT ELEC UR 24HR W/ M SPIKE (P) PROT ELEC UR 24HR W/M SPIKE (P) Lab Routine Multiple myeloma not having achieved remission (HCC) Ordered: 03/20/2025 [facility] Comment on above: Ordered: 03/20/2025 PROT ELEC UR 24HR W/ M SPIKE AND INTERP PROT ELEC UR 24HR W/M SPIKE AND INTERP Lab Routine Multiple myeloma in remission (HCC) Ordered: 12/09/2022 [facility] Work Phone: Comment on above: Ordered: 12/09/2022 PROT ELEC UR 24HR W/ M SPIKE AND INTERP PROT ELEC UR 24HR W/M SPIKE AND INTERP Lab Routine Multiple myeloma in remission (HCC) Ordered: 03/08/2023 [facility] Work Phone: Comment on above: Ordered: 03/08/2023 PROT ELEC UR 24HR W/ M SPIKE AND INTERP PROT ELEC UR 24HR W/M SPIKE AND INTERP Lab Routine Multiple myeloma, remission status unspecified (HCC) Ordered: 06/21/2024 [facility] Work Phone: Comment on above: Ordered: 06/21/2024 PROT ELEC UR 24HR W/ M SPIKE AND INTERP PROT ELEC UR 24HR W/M SPIKE AND INTERP Lab Routine Multiple myeloma not having achieved remission (HCC) Ordered: 03/20/2025 [facility] Work Phone: Comment on above: Ordered: 03/20/2025 Protein [Mass/time] in 24 hour Urine PROTEIN 24 HR URINE Lab Routine Multiple myeloma in remission (HCC) Ordered: 12/09/2022 [facility] Work Phone: Comment on above: Ordered: 12/09/2022 Protein [Mass/time] in 24 hour Urine PROTEIN 24 HR URINE Lab Routine Multiple myeloma in remission (HCC) Ordered: 03/08/2023 [facility] Work Phone: Comment on above: Ordered: 03/08/2023 Protein [Mass/time] in 24 hour Urine PROTEIN, 24 HOUR URINE Lab Routine Multiple myeloma, remission status unspecified (HCC) Ordered: 06/21/2024 [facility] Comment on above: Ordered: 06/21/2024 Protein [Mass/time] in 24 hour Urine PROTEIN, 24 HOUR URINE Lab Routine Multiple myeloma not having achieved remission (HCC) Ordered: 03/20/2025 [facility] Comment on above: Ordered: 03/20/2025 Protein [Mass/volume ] in Serum or Plasma PROTEIN, TOTAL Lab Routine Multiple myeloma not having achieved remission (HCC) 03/15/2025 1:34 PM EDT [facility] Protein [Mass/volume ] in Serum or Plasma PROTEIN, TOTAL Lab Routine Multiple myeloma not having achieved remission (HCC) 04/03/2025 1:17 PM EDT [facility] Protein [Mass/volume ] in Serum or Plasma PROTEIN, TOTAL (FOR SEPG) Lab Routine Multiple myeloma not having achieved remission (HCC) 06/26/2025 10:45 AM [facility] Protein [Mass/volume ] in Urine PROTEIN RANDOM URINE Lab Routine Multiple myeloma not having achieved remission (HCC) 03/15/2025 1:34 PM EDT [facility] PROTEIN ELECT RND UR W/INTERP PROTEIN ELECT RND UR W/INTERP Lab Routine Multiple myeloma not having achieved remission (HCC) 03/15/2025 1:34 PM EDT [facility] PROTEIN ELECTROPHORE SIS SERUM (P) PROTEIN ELECTROPHORESIS SERUM (P) Lab Routine Multiple myeloma not having achieved remission (HCC) 03/15/2025 1:34 PM [facility] PROTEIN ELECTROPHORE SIS SERUM (P) PROTEIN ELECTROPHORESIS SERUM (P) Lab Routine Multiple myeloma not having achieved remission (HCC) 04/03/2025 1:17 PM [facility] PROTEIN ELECTROPHORE SIS SERUM (P) PROTEIN ELECTROPHORESIS SERUM (P) Lab Routine Multiple myeloma not having achieved remission (HCC) 06/26/2025 10:45 AM [facility] End: 05-29-2024 PROTEIN ELECTROPHORESIS SERUM W/INTERP PROTEIN ELECTROPHORESIS SERUM W/INTERP Lab Routine Multiple myeloma in remission (HCC) Every 2 months for 6 Occurrences starting 05/30/2023 until 05/29/2024 [facility] Work Phone: Comment on above: Every 2 months for 6 Occurrences starting 05/30/2023 until 05/29/2024 PROTEIN ELECTROPHORE SIS SERUM W/INTERP PROTEIN ELECTROPHORESIS SERUM W/INTERP Lab Routine Multiple myeloma not having achieved remission (HCC) 03/15/2025 1:34 PM [facility] End: 04-02-2026 PROTEIN ELECTROPHORESIS SERUM W/INTERP PROTEIN ELECTROPHORESIS SERUM W/INTERP Lab Routine Multiple myeloma not having achieved remission (HCC) Every 3 months for 4 Occurrences starting 04/03/2025 until 04/02/2026 [facility] Comment on above: Every 3 months for 4 Occurrences starting 04/03/2025 until 04/02/2026 PROTEIN ELECTROPHORE SIS SERUM W/INTERP PROTEIN ELECTROPHORESIS SERUM W/INTERP Lab Routine Multiple myeloma not having achieved remission (HCC) 04/03/2025 1:17 PM [facility] Work Phone: PROTEIN ELECTROPHORE SIS SERUM W/INTERP PROTEIN ELECTROPHORESIS SERUM W/INTERP Lab Routine Multiple myeloma not having achieved remission (HCC) 06/26/2025 10:45 AM EDT [facility] Work Phone: End: 10-21-2023 Radiologic examination osseous survey compl XR BONE SURVEY ROUTINE Radiology Routine Multiple myeloma in remission (HCC) Cancer related pain Closed compression fracture of lumbosacral spine with routine healing, subsequent encounter Compression fracture of thoracic vertebra, unspecified thoracic vertebral level, sequela 1 Occurrences starting 09/21/2022 until 10/21/2023 [facility] Work Phone: Comment on above: 1 Occurrences starti ng 09/21/2022 until 10/21/2023 End: 09-24-2022 Radiologic examination osseous survey compl [facility] Work Phone: Comment on above: 1 Occurrences starti ng 09/24/2022 until 09/24/2022 Urine microscopy: epithelial cells [facility] Urine microscopy: re d cells [facility] URINE PROTEIN ELECTROPHORESIS RANDOM (P) URINE PROTEIN ELECTROPHORESIS RANDOM (P) Lab Routine Multiple myeloma not having achieved remission (HCC) 03/15/2025 1:34 PM [facility] End: 11-10-2025 US Thyroid gland US THYROID/PARATHYROID Radiology Routine Thyroid nodule 1 Occurrences starting 10/11/2024 until 11/10/2025 [facility] Work Phone: Comment on above: 1 Occurrences starti ng 10/11/2024 until 11/10/2025 US Thyroid gland US THYROID/PARA THYROID Radiology Routine Thyroid nodule 10/18/2024 3:09 PM EST [facility] Work Phone: White blood cell count [facility] End: 01-05-2025 XR Bones Complete Survey Views XR BONE SURVEY ROUTINE Radiology Routine Multiple myeloma in remission (HCC) 1 Occurrences starting 12/07/2023 until 01/05/2025 [facility] Work Phone: Comment on above: 1 Occurrences starti ng 12/07/2023 until 01/05/2025 XR Bones Complete Brice rvey Views XR BONE SURVEY ROUTINE Radiology Routine Multiple myeloma in remission (HCC) 12/07/2023 4:29 PM EST [facility] Work Phone: End: 10-19-2025 XR Thoracic and lumbar spine Views for scoliosis W standing XR SCOLIOSIS PA STAND/LAT 2V Radiology Routine Multiple myeloma, remission status unspecified (HCC) 1 Occurrences starting 09/19/2024 until 10/19/2025 [facility] Work Phone: Comment on above: 1 Occurrences starti ng 09/19/2024 until 10/19/2025 End: 01-23-2026 XR Thoracic and lumbar spine Views for scoliosis W standing XR SCOLIOSIS PA STAND/LAT 2V Radiology Routine Cancer related pain Compression fracture of thoracic vertebra, unspecified thoracic vertebral level, sequela Pathological fracture, other site, initial encounter for fracture 1 Occurrences starting 12/24/2024 until 01/23/2026 [facility] Comment on above: 1 Occurrences starti ng 12/24/2024 until 01/23/2026 XR Thoracic and lumb ar spine Views for scoliosis W standing XR SCOLIOSIS PA STAND/LAT 2V Radiology Routine Cancer related pain Compression fracture of thoracic vertebra, unspecified thoracic vertebral level, sequela Pathological fracture, other site, initial encounter for fracture 12/28/2024 12:07 PM EDT [facility] Work Phone: [facility] Immunizations Immunization Date Immunization Notes Care Provider Fa brando 09-14-2023 zoster vaccine recombinant QUALITY ASSURANCE COACH. Ysabel Esteban QUALITY ASSURANCE COACH-C Work Phone: [facility] 09-22-2021 hepatitis A and hepatitis B vaccine QUALITY ASSURANCE COACH. Ysabel Esteban QUALITY ASSURANCE COACH-C Work Phone: [facility] 09-22-2021 poliovirus vaccine, inactivated QUALITY ASSURANCE COACH. Ysabel Esteban QUALITY ASSURANCE COACH-C Work Phone: [facility] 09-22-2021 tetanus and diphther ia toxoids, adsorbed, preservative free, for adult use (2 Lf of tetanus toxoid and 2 Lf of diphtheria toxoid) QUALITY ASSURANCE COACH. Ysabel Esteban QUALITY ASSURANCE COACH-C Work Phone: [facility] 08-10-2021 haemophilus influenz ae type b vaccine, PRP-OMP conjugate Florida Garcia PT Work Phone: [facility] 08-10-2021 haemophilus influenz ae type b vaccine, PRP-T conjugate QUALITY ASSURANCE COACH. Ysabel Esteban QUALITY ASSURANCE COACH-C Work Phone: [facility] 08-10-2021 hepatitis A and hepatitis B vaccine Florida Garcia PT Work Phone: [facility] 08-10-2021 pneumococcal conjuga te vaccine, 13 valent Florida Garcia PT Work Phone: [facility] 08-10-2021 poliovirus vaccine, inactivated Florida Garcia PT Work Phone: [facility] 08-10-2021 tetanus toxoid, redu fozia diphtheria toxoid, and acellular pertussis vaccine, adsorbed Florida Garcia PT Work Phone: [facility] 08-10-2021 hepatitis B vaccine, unspecified formulation Treatment Wstr Work Phone: [facility] 07-05-2020 pneumococcal polysaccharide vaccine, 23 valent Florida Garcia PT Work Phone: [facility] Work Phone: 07-05-[address] Danial Gambino Work Phone: [facility] Work Phone: 07-05-2020 pneumococcal vaccine , unspecified formulation Dr. Pia Gambino Work Phone: [facility] Payers Date Payer Category Payer Self-pay [id number] 2023 Medicaid [id number] 2023 Medicaid [id number] 2023 Medicare (Managed Care) [facility] DUAL COMPLETE PPO SNP [id number] 2023 Private Health Insurance [id number] 2022 Medicare [id number]. [id number] 2022 Medicaid [id number] 1.13.159.2. [id number] 2019 Unknown MMO MMO [employer] [id number] 2019-Present [phone] [address] [place] [address] PPO [id number]. [id number] 2019 Unknown [id number]. 1.13.159.2. 7.3.263337.315 2014 Unknown [facility] [id number] 2001 Unknown [id number] 1964 Unknown [id number] 2.16.840.1.236286.3.579.2. 594 1964 Unknown [id number] 2.16.840.1.626725.3.579.2. 651 1964 Unknown [id number] 2.16.840.1.772580.3.579.2. 651 1964 Unknown [id number] 2.16.840.1.966673.3.579.2. 651 1964 Unknown [id number] 2.16.840.1.211909.3.579.2. 651 1964 Unknown [id number] 2.16.840.1.950745.3.579.2. 651 Medicare [id number] Unknown [id number] 2.16840.1.893821.3.579.2. 462 Unknown [id number] 2..840.1.457001.3.579.2. 462 Unknown [id number] 2.840.1.737718.3.579.2. 462 Unknown [id number] 2.840.1.953702.3.579.2. 462 Unknown [id number] 2..840.1.686944.3.579.2. 462 Unknown [id number] 2.840.1.673687.3.579.2. 462 Unknown [id number] 2.840.1.981344.3.579.2. 462 Unknown [id number] 2.840.1.546280.3.579.2. 462 Unknown [id number] 2.16840.1.637816.3.579.2. 462 Unknown [id number] 2.840.1.465707.3.579.2. 462 Unknown [id number] 2.16.840.1.354684.3.579.2. 462 Unknown [id number] 2.16840.1.406485.3.579.2. 462 Unknown [id number] 2.16840.1.366511.3.579.2. 462 Unknown [id number] 2.16.840.1.426370.3.579.2. 462 Unknown [id number] 2.16.840.1.897256.3.579.2. 462 Unknown [id number] 2.16.840.1.754441.3.579.2. 462 Unknown [id number] 2.16.840.1.408355.3.579.2. 462 Unknown [id number] 2.16.840.1.780284.3.579.2. 462 Unknown [id number] 2.16.840.1.813006.3.579.2. 462 Unknown [id number] 2.16.840.1.860277.3.579.2. 462 Unknown [id number] 2.16.840.1.925132.3.579.2. 462 Unknown [id number] 2.16840.1.967552.3.579.2. 462 Unknown [id number] 2.16.840.1.717353.3.579.2. 462 Unknown [id number] 2.16.840.1.474516.3.579.2. 462 Unknown [id number] 2.16.840.1.341641.3.579.2. 462 Unknown [id number] 2.16.840.1.029244.3.579.2. 462 Unknown [id number] 2.16.840.1.868280.3.579.2. 462 Unknown [id number] 2.16.840.1.610294.3.579.2. 462 Unknown [id number] 2.16.840.1.583932.3.579.2. 462 Unknown [id number] 2.16.840.1.562566.3.579.2. 462 Unknown [id number] 2.16.840.1.925199.3.579.2. 462 Unknown [id number] 2.16.840.1.312137.3.579.2. 462 Unknown [id number] 2.16.840.1.668386.3.579.2. 462 Unknown [id number] 2.16.840.1.931681.3.579.2. 462 Unknown [id number] 2.16.840.1.877532.3.579.2. 462 Unknown [id number] 2.16.840.1.476445.3.579.2. 462 Social History Date Type Detail Facility Start: 06-23-2020 End: 02-18-2025 Tobacco smoking status NHIS Ex-smoker [facility] Start: 06-23-1992 End: 06-23-1997 History of tobacco use Current smoker [facility] Start: 06-23-1992 End: 06-23-1997 History of tobacco use Cigarette Smoker [facility] Start: 06-23-2020 End: 03-03-2023 Tobacco use and exposure Smokeless tobacco non-user [facility] Start: 12-24-2021 End: 06-26-2025 Alcohol intake Ex-drinker (finding) [facility] Start: 09-12-2012 History SDOH Alcohol Comment socially [facility] Start: 12-16-2020 End: 03-03-2023 Tobacco Comment quit smoking cigarettes in 1984 but only had smoked for few years approximately 1 pack/week [facility] Start: 1965 Sex Assigned At Female [facility] Work Phone: Start: 12-13-2021 End: 06-29-2022 Exposure to SARS-CoV-2 (event) Not sure [facility] Work Phone: Start: 07-26-2022 End: 07-26-2022 Tobacco smoking status MSIS Unknown if ever smoked [facility] Work Phone: Start: 06-08-2022 Occasional [facility] Start: 06-08-2022 None [facility] Start: 08-08-2020 Spouse/ Significant Other [facility] Start: 06-08-2022 Non-smoker [facility] Start: 03-01-2023 End: 03-22-2023 History of Social function [facility] Start: 03-01-2023 End: 03-22-2023 Tobacco use panel [facility] Start: 09-10-2012 National Score (1-100), lower number is lower risk 77 [facility] Start: 12-16-2020 Gender identity Identifies as female gender (finding) [facility] Work Phone: Start: 12-16-2020 Sexual orientation Heterosexual (finding) [facility] Work Phone: Start: 12-18-2024 End: 01-25-2025 Sex Female (finding) [facility] How often to you hav e a drink containing alcohol? Never [facility] Medical Equipment Procedure Code Equipment Code Equipment Origin al Text Equipment Identifier Dates Tray Lovelace Tri fusion 12fr Polyurethane 19cm Catheter 3 Lumen High - [id number] Start: 01-01-2021 Tray Lovelace Tri fusion 12fr Polyurethane 19cm Catheter 3 Lumen High - [id number] Start: 12-08-[address] Plastic 8f Chronoflex Catheter With Kit - [id number] Start: 01-24-2025 Goals Date Patient Goal Desired Activity /State Functional Status Date Assessment Result Facility 06-12-2025 Total score [AUDIT-C] 0 06/12/20 25 1:29 PM Alba Moraes MA [facility] 12-23-2024 Functional status Ambulates;Up ad anh [facility] Work Phone: 01-29-2021 Are you deaf, or do you have serious difficulty hearing No 01/29/2021 11:53 AM Cyndi Rodriguez, STACI No [facility] 01-29-2021 Are you blind, or do you have serious difficulty seeing, even when wearing glasses No 01/29/2021 11:53 AM Cyndi Rodriguez, STACI No [facility] 01-29-2021 Do you have serious difficulty walking or climbing stairs No 01/29/2021 11:53 AM Cyndi Rodriguez, STACI No [facility] 01-29-2021 Do you have difficul ty dressing or bathing No 01/29/2021 11:53 AM Cyndi Rodriguez, STACI No [facility] 01-29-2021 Because of a physica l, mental, or emotional condition, do you have difficulty doing errands alone such as visiting a physician's office or shopping No 01/29/2021 11:53 AM Cnydi Rodriguez RN No [facility] Mental Status Date Assessment Result Facility 01-30-2025 Cognitive function Voice/Name [facility] Work Phone: 01-28-2025 Cognitive function Voice/Name [facility] Work Phone: 01-23-2025 Cognitive function Awake;Alert;A ppropriate; Follows [facility] Work Phone: 01-21-2025 Cognitive function Awake;Alert;A ppropriate; Follows [facility] Work Phone: 01-18-2025 Cognitive function Voice/Name [facility] Work Phone: 01-18-2025 Cognitive function Voice/Name [facility] Work Phone: 01-16-2025 Cognitive function Awake;Alert;A ppropriate; Follows [facility] Work Phone: 01-14-2025 Cognitive function Voice/Name [facility] Work Phone: 01-11-2025 Cognitive function Awake;Alert;A ppropriate; Follows [facility] Work Phone: 01-09-2025 Cognitive function Voice/Name [facility] Work Phone: 01-07-2025 Cognitive function Voice/Name [facility] Work Phone: 12-31-2024 Cognitive function Voice/Name [facility] Work Phone: 12-23-2024 Cognitive function Appropriate;Cooperativ [facility] Work Phone: 12-22-2024 Cognitive function Arousable To Voice/Nam e [facility] Work Phone: 01-29-2021 Because of a physica l, mental, or emotional condition, do you have serious difficulty concentrating, remembering, or making decisions No 01/29/2021 11:33 AM Cyndi Rodriguez, RN No [facility] Clinical Notes 01-25-2021 to 07-05-2025 Note Date & Type Note Facility 07-05-2025 Evaluation note Diagnosis Onset Date Resolution Otitis media acute July 052024 2:47pm [facility] Work Phone: [phone] [facility] [address] [place] [address] [place] [address] OFFICE VISIT Date of Service: 07/05/25 MR#: [id number] Acct: [id number] Name: ALVINO NINA Rep #: [id number] : 1965 Provider: SAMANTA Esteban Age/Sex: 60/F Location: [facility] Status: Signed Intake Vital Signs 02/18/25 13:13 Height 5 ft 1 in Intake Visit Reasons: Right side of head hurts. Ear ache. Body aches. 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 Required: No Accompanied by: Self Is patient in pain?: No Allergies latex Allergy (Mild, Verified 07/05/25 14:50) rash Penicillins Allergy (Verified 07/05/25 14:50) Unknown adhesive tape Adverse Reaction (Verified 07/05/25 14:50) Rash Medications ?Medication ?Instructions ?Recorded ?Confirmed ?Type omeprazole 40 mg capsule,delayed 40 mg PO DAILY 07/05/25 History release benzonatate 200 mg capsule 200 mg PO TID PRN cough #20 caps 07/02/25 07/05/25 Rx fentanyl 50 mcg/hr transdermal 1 patch transdermal Q3D 07/02/25 07/05/25 History patch acyclovir 400 mg tablet 400 mg PO BID 07/05/2507/05 History azithromycin 250 mg tablet See Rx Instructions PO QDAY 9 days 07/05/25 07/05/25 Rx (Zithromax) #10 tabs buspirone 7.5 mg tablet 7.5 mg PO BID 07/05/2507/05 History escitalopram oxalate 10 mg tablet 20 mg PO DAILY 07/0507/05/25 History fentanyl 50 mcg/hr transdermal 1 patch transdermal Q72 H 07/05/25 07/05/25 History patch ipratropium bromide 42 mcg (0.06 2 spray intranasal TI D-QID PRN 07/05/25 07/05/25 Rx %) nasal spray allergy symptoms #15 mL lorazepam 0.5 mg tablet 0.25 mg PO BID 07/05/2506/11 History lorazepam 0.5 mg tablet 0.5 mg PO QDAY 07/05/2506/11 History ondansetron HCl 8 mg tablet 4 mg PO 4X/DAY PRN nausea 07/05/25 07/05/25 History pomalidomide 1 mg capsule 1 mg PO QAM 07/05/25 5 History rizatriptan 10 mg tablet See Rx Instructions PO .COMP MITCH 07/05/25 07/05/25 History Have you fallen in the past year?: No Nurse's Note: started last tuesday feeling sick fever aches tempx4 days throat hurting today head hurts specifically on right side along with right ear and right side of throat lots of aches and pains and weakness and exhausted Reacted to the steroid took for 2 days, and stopped caused excess urination and terrible dreamsheart felt like it was pounding [facility] Medical History History of cancer Post-menopausal Cancer Depression Anxiety Walker as ambulation aid Anemia Back pain Injury of head and neck Gastric reflux Leg cramps 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 health care History of pneumococcal infection Headache, migraine Carpal tunnel syndrome history of bone fracture Back problem Arthritis Seasonal allergies Endometriosis Screening for intestinal cancer Iron deficiency anemia Renal cell cancer Former tobacco use Obesity Pancreatitis URI, acute History of nausea and vomiting History of abdominal pain Surgical History History of esophagogastroduodenoscopy (EGD) History of back surgery s/p kidney cancer Status post endometrial ablation Family History Brother Asthma Malignant hyperthermia due to anesthesia Hypertension Grandfather Colon cancer Mother Heart disease Thyroid disorder COPD (chronic obstructive pulmonary disease) Arthritis Anemia Sister Breast cancer Hypertension Thyroid disorder Hypothyroid Arthritis Father Bleeding disorder Cancer Lung Myelodysplastic syndrome Chronic lymphocytic leukemia Alcohol abuse Aunt Myocardial infarction Social History household members: children Smoking Status: Former smoker alcohol intake: current alcohol intake frequency: holidays/special occasions only what type of physical activity do you participate in: walking, bicycling, aerobics and weight training do you feel safe at home: Yes HPI HPI Chief Complaint: aches n pains Details: ALVINO NINA, is a 60 F who presents to the office today for evaluation of symptoms of illness. Patient states last Tuesday she started with a fever aches generalized and had fever for 4 days. On07/02/2025 patient went to urgent care and was given medication for cough and steroid. Patient is currently on chemo infusions and chemo pills for multiple myeloma. She restarted her chemo pill less than 21 days ago. She complains of muscle aches as well as pain on the right side of her head and herright ear. Pain also down the right side of her throat along with generalized feelings of fatigue and weakness. Patient states she tried to take the steroids as prescribed from urgent care however she was having adverse side effects causing her heart to race and having nightmares therefore she stopped taking it after 2 days. She states no relief and continued concern due to worsening of symptoms ROS Const Constitutional: No body ache, excessive sweating, fatigue, fever(s), frequent falls, headache(s), snoring, weakness, weight change, sleep problems or change in appetite Eyes Eyes: No blurry vision, change in vision, eye pain or Light sensitivity ENT ENT: No abnormal hearing, ear or mastoid pain, tinnitus, nasal congestion, headache(s), neck pain or sore throat Resp Respiratory: No cough, shortness of breath, snoring or wheezing Cardio Cardiology: No chest pain at rest, chest pain with exertion, excessive sweating,shortness of breath, dyspnea on exertion, lightheadedness, orthopnea or palpitations Gastro GI: No abdominal pain, change in bowel habits, constipation, cramping, diarrhea,nausea/dyspepsia orvomiting Genitourinary-Female: No burning urination, painful urination, urinary incontinence, urinary frequency, blood in urine, abnormal periods or pelvic pain Musc Musculoskeletal: No abnormal gait, joint pain, back pain, limited range of motion, neck pain, numbness, stiffness, tingling or Arthritis Skin Skin: No dry skin, redness, lesions, itchy eyes, rash or wounds Neuro Neurology: No abnormal gait, abnormal hearing, abnormal speech, dizziness, weakness, frequent falls, headache(s), memory loss, numbness or tingling Psych Psychiatric: No anxiety, No change in appetite, No depression, No memory loss and No Thoughts of harming yourself/Others Endo Endocrine: No cold intolerance, excessive sweating, fatigue, flushing, heat intolerance, increased thirst/drinking, increased hunger or weight change Aller/Imm Allergy/Immunologic: No itchy eyes, seasonal allergy symptoms, hives or wheezing Anuel/Lymp Hematologic/Lymphatic: No easy bleeding, easy bruising or enlarged lymph nodes Exam Const General: cooperative, healthy appearing and well groomed Nutritional Appearance: average body habitus Orientation: alert and oriented x3 HENMT Head: normal to inspection Ears: hearing grossly normal bilaterally, TM's abnormal bilaterally, right TM abnormal (Erythema oftympanic membrane) and left TM abnormal Nose: mucous membranes and turbinates abnormal Face and sinus: sinuses tender and sinus tenderness ethmoid Mouth: oral mucosae normal and lip normal Throat: posterior oropharynx abnormal (erythema) Eyes General: appearance normal, both eyes and all related structures Neck Neck: normal visual inspection, no lymphadenopathy and trachea midline Thyroid: thyroid normal Lymphatic: no lymphadenopathy noted Chest Chest palpation & inspection: normal inspection of the chest Resp Effort & Inspection: normal respiratory effort, able to speak in complete sentences and symmetric chest movement Auscultation: Bilateral: Clear to Auscultation Cardio Palpation: normal PMI Rate: regular rate Rhythm: regular rhythm Heart Sounds: S1 normal and S2 normal GI Inspection: normal to inspection Palpation: soft and nontender Musc Musculoskeletal: No joint tenderness, joint redness or joint warmth Skin General: no rashes or lesions noted Neuro General: patient alert and patient oriented x3 Extrem General: normal to inspection and capillary refill normal Psych Appearance: grossly normal and well kempt Coding Level of Care Code New Pt Off vis,new,level 3 Patient Type New History Expanded Problem Focused Exam Expanded Problem Focused Medical Decision Making Low Complexity Diagnoses Otitis media H66.90 Time Spent (min) 40 Assessment and Plan Assessment and Plan (1) Otitis media: Status: Acute Plan: Due to decreased immune function as evidenced by recent labs along with patient receiving chemotherapy will prescribe antibiotics for otitis media and nasal decongestant with ipratropium nasal spray.Patient has tried [id number] nasal decongestant without relief. Patient has appointment to follow-up next week can reevaluate symptom control at that time. If any further fever developspatient to go to ER due to decreased to mean function as receiving chemotherapy. Medications: New azithromycin (Zithromax) On day 1 take 2 tablets, then 1 tablet daily afterward 10 tabs 0RF 9 days ipratropium bromide administer into each nostril 2 sprays intranasal TID-QID PRN 15 mL 0RF allergy symptoms Plan Details Follow Up: 1 Week Clinical Quality Measures Falls Risk Screening/Assistive Devices Have you fallen in the past year?: No 07/05/25 1627 er QUALITY ASSURANCE COACH-C> Date _ Ysabel ENGLAND Cosigner Signature: Date (if applicable) CC: ~ [facility]09-26-2025 Progress note Author Ysabel Esteban [facility] Note Date/Time July 05, 2025 3:46pm [facility] [address] [place] [address] [place] [address] OFFICE VISIT Date of Service: 07/05/25 MR#: [id number] Acct: [id number] Name: ALVINO NINA Rep #: [id number] : 1965 Provider: SAMANTA Esteban Age/Sex: 60/F Location: [facility] Status: Signed Intake Vital Signs 02/18/25 13:13 Height 5 ft 1 in Intake Visit Reasons: Right side of head hurts. Ear ache. Body aches. 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 Required: No Accompanied by: Self Is patient in pain?: No Allergies latex Allergy (Mild, Verified 07/05/25 14:50) rash Penicillins Allergy (Verified 07/05/25 14:50) Unknown adhesive tape Adverse Reaction (Verified 07/05/25 14:50) Rash Medications ?Medication ?Instructions ?Recorded ?Confirmed ?Type omeprazole 40 mg capsule,delayed 40 mg PO DAILY 07/05/25 History release benzonatate 200 mg capsule 200 mg PO TID PRN cough #20 caps 07/02/25 07/05/25 Rx fentanyl 50 mcg/hr transdermal 1 patch transdermal Q3D 07/02/25 07/05/25 History patch acyclovir 400 mg tablet 400 mg PO BID 07/05/2507/05 History azithromycin 250 mg tablet See Rx Instructions PO QDAY 9 days 07/05/25 07/05/25 Rx (Zithromax) #10 tabs buspirone 7.5 mg tablet 7.5 mg PO BID 07/05/2507/05 History escitalopram oxalate 10 mg tablet 20 mg PO DAILY 07/0507/05/25 History fentanyl 50 mcg/hr transdermal 1 patch transdermal Q72 H 07/05/25 07/05/25 History patch ipratropium bromide 42 mcg (0.06 2 spray intranasal TI D-QID PRN 07/05/25 07/05/25 Rx %) nasal spray allergy symptoms #15 mL lorazepam 0.5 mg tablet 0.25 mg PO BID 07/05/2506/11 History lorazepam 0.5 mg tablet 0.5 mg PO QDAY 07/05/2506/11 History ondansetron HCl 8 mg tablet 4 mg PO 4X/DAY PRN nausea 07/05/25 07/05/25 History pomalidomide 1 mg capsule 1 mg PO QAM 07/05/25 5 History rizatriptan 10 mg tablet See Rx Instructions PO .COMP MITCH 07/05/25 07/05/25 History Have you fallen in the past year?: No Nurse's Note: started last tuesday feeling sick fever aches tempx4 days throat hurting today head hurts specifically on right side along with right ear and right side of throat lots of aches and pains and weakness and exhausted Reacted to the steroid took for 2 days, and stopped caused excess urination and terrible dreamsheart felt like it was pounding [facility] Medical History History of cancer Post-menopausal Cancer Depression Anxiety Walker as ambulation aid Anemia Back pain Injury of head and neck Gastric reflux Leg cramps 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 health care History of pneumococcal infection Headache, migraine Carpal tunnel syndrome history of bone fracture Back problem Arthritis Seasonal allergies Endometriosis Screening for intestinal cancer Iron deficiency anemia Renal cell cancer Former tobacco use Obesity Pancreatitis URI, acute History of nausea and vomiting History of abdominal pain Surgical History History of esophagogastroduodenoscopy (EGD) History of back surgery s/p kidney cancer Status post endometrial ablation Family History Brother Asthma Malignant hyperthermia due to anesthesia Hypertension Grandfather Colon cancer Mother Heart disease Thyroid disorder COPD (chronic obstructive pulmonary disease) Arthritis Anemia Sister Breast cancer Hypertension Thyroid disorder Hypothyroid Arthritis Father Bleeding disorder Cancer Lung Myelodysplastic syndrome Chronic lymphocytic leukemia Alcohol abuse Aunt Myocardial infarction Social History household members: children Smoking Status: Former smoker alcohol intake: current alcohol intake frequency: holidays/special occasions only what type of physical activity do you participate in: walking, bicycling, aerobics and weight training do you feel safe at home: Yes HPI HPI Chief Complaint: aches n pains Details: ALVINO NINA, is a 60 F who presents to the office today for evaluation of symptoms of illness. Patient states last Tuesday she started with a fever aches generalized and had fever for 4 days. On 07/02/2025 patient went to urgent care and was given medication for cough and steroid. Patient is currently on chemo infusions and chemo pills for multiple myeloma. She restarted her chemo pill less than 21 days ago. She complains of muscle aches as well as pain on the right side of her head and her right ear. Pain also down the right side of her throat along with generalized feelings of fatigue and weakness. Patient states she tried to take the steroids as prescribed from urgent care however she was having adverse side effects causing her heart to race and having nightmares therefore she stopped taking it after 2 days. She states no relief and continued concern due to worsening of symptoms ROS Const Constitutional: No body ache, excessive sweating, fatigue, fever(s), frequent falls, headache(s), snoring, weakness, weight change, sleep problems or change in appetite Eyes Eyes: No blurry vision, change in vision, eye pain or Light sensitivity ENT ENT: No abnormal hearing, ear or mastoid pain, tinnitus, nasal congestion, headache(s), neck pain or sore throat Resp Respiratory: No cough, shortness of breath, snoring or wheezing Cardio Cardiology: No chest pain at rest, chest pain with exertion, excessive sweating,shortness of breath, dyspnea on exertion, lightheadedness, orthopnea or palpitations Gastro GI: No abdominal pain, change in bowel habits, constipation, cramping, diarrhea,nausea/dyspepsia or vomiting Genitourinary-Female: No burning urination, painful urination, urinary incontinence, urinary frequency, blood in urine, abnormal periods or pelvic pain Musc Musculoskeletal: No abnormal gait, joint pain, back pain, limited range of motion, neck pain, numbness, stiffness, tingling or Arthritis Skin Skin: No dry skin, redness, lesions, itchy eyes, rash or wounds Neuro Neurology: No abnormal gait, abnormal hearing, abnormal speech, dizziness, weakness, frequent falls, headache(s), memory loss, numbness or tingling Psych Psychiatric: No anxiety, No change in appetite, No depression, No memory loss and No Thoughts of harming yourself/Others Endo Endocrine: No cold intolerance, excessive sweating, fatigue, flushing, heat intolerance, increased thirst/drinking, increased hunger or weight change Aller/Imm Allergy/Immunologic: No itchy eyes, seasonal allergy symptoms, hives or wheezing Anuel/Lymp Hematologic/Lymphatic: No easy bleeding, easy bruising or enlarged lymph nodes Exam Const General: cooperative, healthy appearing and well groomed Nutritional Appearance: average body habitus Orientation: alert and oriented x3 HENMT Head: normal to inspection Ears: hearing grossly normal bilaterally, TM's abnormal bilaterally, right TM abnormal (Erythema of tympanic membrane) and left TM abnormal Nose: mucous membranes and turbinates abnormal Face and sinus: sinuses tender and sinus tenderness ethmoid Mouth: oral mucosae normal and lip normal Throat: posterior oropharynx abnormal (erythema) Eyes General: appearance normal, both eyes and all related structures Neck Neck: normal visual inspection, no lymphadenopathy and trachea midline Thyroid: thyroid normal Lymphatic: no lymphadenopathy noted Chest Chest palpation & inspection: normal inspection of the chest Resp Effort & Inspection: normal respiratory effort, able to speak in complete sentences and symmetric chest movement Auscultation: Bilateral: Clear to Auscultation Cardio Palpation: normal PMI Rate: regular rate Rhythm: regular rhythm Heart Sounds: S1 normal and S2 normal GI Inspection: normal to inspection Palpation: soft and nontender Musc Musculoskeletal: No joint tenderness, joint redness or joint warmth Skin General: no rashes or lesions noted Neuro General: patient alert and patient oriented x3 Extrem General: normal to inspection and capillary refill normal Psych Appearance: grossly normal and well kempt Coding Level of Care Code New Pt Off vis,new,level 3 Patient Type New History Expanded Problem Focused Exam Expanded Problem Focused Medical Decision Making Low Complexity Diagnoses Otitis media H66.90 Time Spent (min) 40 Assessment and Plan Assessment and Plan (1) Otitis media: Status: Acute Plan: Due to decreased immune function as evidenced by recent labs along with patient receiving chemotherapy will prescribe antibiotics for otitis media and nasal decongestant with ipratropium nasal spray. Patient has tried [id number] nasal decongestant without relief. Patient has appointment to follow-up next week can reevaluate symptom control at that time. If any further fever developspatient to go to ER due to decreased to mean function as receiving chemotherapy. Medications: New azithromycin (Zithromax) On day 1 take 2 tablets, then 1 tablet daily afterward 10 tabs 0RF 9 days ipratropium bromide administer into each nostril 2 sprays intranasal TID-QID PRN 15 mL 0RF allergy symptoms Plan Details Follow Up: 1 Week Clinical Quality Measures Falls Risk Screening/Assistive Devices Have you fallen in the past year?: No 07/05/25 9094 <Electronically signed by Ysabel shelley QUALITY ASSURANCE COACH-C> Date _ Ysabel SORIANOC Cosigner Signature: Date (if applicable) CC: ~ [facility] Work Phone: 1(689) 451-322509-23-2025 Progress [facility] [address], [address] [place] [address] OFFICE VISIT Date of Service: 07/02/25 MR#: [id number] Acct: [id number] Name: ALVINO NINA Rep #: [id number] : 1965 Provider: MARION Quintero Age/Sex: 60/F Location: [facility] Status: Signed Intake Vital Signs 02/18/25 13:13 07/02/25 13:52 Height 5 ft 1 in BP 102/68 Position Sitting Respiration 18 Pulse 80 Temp 98.0 F Temp Source Oral Pulse Oximetry (%) 97 Oxygen Delivery Method room air Intake Visit Reasons: CONGESTION, COUGH Chief Complaint: congestion and cough Accompanied by: Self Allergies latex Allergy (Mild, Verified 07/02/25 13:55) rash Penicillins Allergy (Verified 07/02/25 13:55) Unknown adhesive tape Adverse Reaction (Verified 07/02/25 13:55) Rash Medications ?Medication ?Instructions ?Recorded ?Confirmed ?Type scopolamine base 1 mg over 3 days 1 patch topical Q72H 12/18/24 07/02/25 History transdermal patch escitalopram oxalate 10 mg tablet 10 mg PO DAILY 01/1407/02/25 History omeprazole 40 mg capsule,delayed 40 mg PO DAILY 07/02/25 History release ondansetron HCl 8 mg tablet 4 mg PO 4X/DAY PRN PRN rachel sea 01/14/25 07/02/25 History benzonatate 100 mg capsule 100 mg PO TID PRN cough #20 caps 02/18/25 07/02/25 Rx levofloxacin 500 mg tablet 500 mg PO Q24H #7 tabs 02/0707/02/25 Rx benzonatate 200 mg capsule 200 mg PO TID PRN cough #20 caps 07/02/25 07/02/25 Rx fentanyl 50 mcg/hr transdermal 1 patch transdermal Q3D 07/02/25 07/02/25 History patch methylprednisolone 4 mg tablets in See Rx Instructions PO PER PKG DIR 07/02/25 07/02/25 Rx a dose pack (Medrol (Herve)) #21 tabs Nurse's Note: Patient has congestion, cough and fever. Patient is also weak and tired. Patientstates this has been going on since Tuesday. [facility] Medical History (Updated 02/26/25 @ 00:01 by Jesusita Faye) History of cancer Post-menopausal Cancer Depression Anxiety Walker as ambulation aid Anemia Back pain Injury of head and neck Gastric reflux Leg cramps 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 health care History of pneumococcal infection Headache, migraine Carpal tunnel syndrome history of bone fracture Back problem Arthritis Seasonal allergies Endometriosis Screening for intestinal cancer Iron deficiency anemia Renal cell cancer Former tobacco use Obesity Pancreatitis URI, acute History of nausea and vomiting History of abdominal pain Surgical History History of esophagogastroduodenoscopy (EGD) History of back surgery s/p kidney cancer Status post endometrial ablation Family History Brother Asthma Malignant hyperthermia due to anesthesia Hypertension Grandfather Colon cancer Mother Heart disease Thyroid disorder COPD (chronic obstructive pulmonary disease) Arthritis Anemia Sister Breast cancer Hypertension Thyroid disorder Hypothyroid Arthritis Father Bleeding disorder Cancer Lung Myelodysplastic syndrome Chronic lymphocytic leukemia Alcohol abuse Aunt Myocardial infarction Social History household members: children Smoking Status: Former smoker alcohol intake: current alcohol intake frequency: holidays/special occasions only what type of physical activity do you participate in: walking, bicycling, aerobics and weight training do you feel safe at home: Yes HPI HPI Chief Complaint: congestion and cough Details: ALVINO NINA, is a 60 F who presents to the office today for [facility] evaluation [facility] the [facility] for approximately 4 day history of persistent congestion, cough, fever (?Tmax) - stating he feels weak and tired. No c/o chills, DUNN, myalgias, nausea, and diarrhea. Patient notes no complaints of c hestpain or shortness of breath or dyspnea on exertion. Several close contacts recently dx?d w/ similar URI complaints. No [id number] taken to assist. Noother associated symptoms and no other alleviating/aggravating factors. ROS Const Constitutional: No other (As above) Exam Const General: cooperative, healthy appearing and no acute distress Orientation: alert, awake [facility] Head: normal to inspection Ears: hearing grossly normal bilaterally, external ears normal, TM's normal bilaterally and EAC's normal Nose: external nose normal, nares normal, septum normal and clear nasal discharge Face and sinus: normal facial exam, sinuses nontender and face symmetric Mouth: oral mucosae normal, lip normal, tongue normal and oropharynx normal Throat: posterior oropharynx normal, tonsils normal, uvula midline and no postnasal drainage Eyes General: appearance normal, both eyes and all related structures Neck Neck: normal visual inspection, full ROM, no lymphadenopathy, no meningeal signsand supple Neck mass: No Thyroid: thyroid normal Lymphatic: no lymphadenopathy noted Chest Chest palpation & inspection: normal inspection of the chest Resp Effort & Inspection: normal respiratory effort, able to speak in complete sentences and cough Quality of cough: wet (nonproductive in office today) Auscultation: Bilateral: Clear to Auscultation Cardio Palpation: normal PMI Rate: regular Rhythm: regular rhythm Heart Sounds: S1 normal, S2 normal Pulses: radial pulses present Skin General: no rashes or lesions noted Neuro General: patient alert, patient awake Cognition: normal cognition Speech: speech normal Psych Appearance: grossly normal Mental Status: mental status grossly normal Mood: congruent mood Affect: normal affect Speech and Movement: speech and movement normal Attitude: cooperative Diagnoses URI (upper respiratory infection) J06.9 Assessment and Plan Assessment and Plan (1) URI (upper respiratory infection): Status: Acute Plan: Patient refusing all POC screening upon offering. Medrol and Benzonatate as prescribed today. Supportive measures as instructed today. Follow-up with PCP in 5 to 7 days should symptoms not improve, ED sooner should symptoms worsen or any other concerns develop. Pt states acknowledging understanding all the above. Coding Level of Care Code Off vis,est,level 3 Assessment and Plan Assessment and Plan Medications: New methylprednisolone (Medrol (Herve)) PO PER PKG DIR 21 tabs 0RF benzonatate 200 mg PO TID PRN 20 caps 0RF cough 07/02/25 1405 s PA PA> Date _ Shade Lomax Signature: Date (if applicable) CC: ~ [facility]09-23-2025 Progress note Author Shade Madrigal [facility] Note Date/Time July 02, 2025 2:03pm [facility] [address], [address] [place] [address] OFFICE VISIT Date of Service: 07/02/25 MR#: [id number] Acct: [id number] Name: ALVINO NINA Rep #: [id number] : 1965 Provider: MARION Quintero Age/Sex: 60/F Location: [facility] Status: Signed Intake Vital Signs 02/18/25 13:13 07/02/25 13:52 Height 5 ft 1 in BP 102/68 Position Sitting Respiration 18 Pulse 80 Temp 98.0 F Temp Source Oral Pulse Oximetry (%) 97 Oxygen Delivery Method room air Intake Visit Reasons: CONGESTION, COUGH Chief Complaint: congestion and cough Accompanied by: Self Allergies latex Allergy (Mild, Verified 07/02/25 13:55) rash Penicillins Allergy (Verified 07/02/25 13:55) Unknown adhesive tape Adverse Reaction (Verified 07/02/25 13:55) Rash Medications ?Medication ?Instructions ?Recorded ?Confirmed ?Type scopolamine base 1 mg over 3 days 1 patch topical Q72H 12/18/24 07/02/25 History transdermal patch escitalopram oxalate 10 mg tablet 10 mg PO DAILY 01/1407/02/25 History omeprazole 40 mg capsule,delayed 40 mg PO DAILY 07/02/25 History release ondansetron HCl 8 mg tablet 4 mg PO 4X/DAY PRN PRN rachel sea 01/14/25 07/02/25 History benzonatate 100 mg capsule 100 mg PO TID PRN cough #20 caps 02/18/25 07/02/25 Rx levofloxacin 500 mg tablet 500 mg PO Q24H #7 tabs 02/0707/02/25 Rx benzonatate 200 mg capsule 200 mg PO TID PRN cough #20 caps 07/02/25 07/02/25 Rx fentanyl 50 mcg/hr transdermal 1 patch transdermal Q3D 07/02/25 07/02/25 History patch methylprednisolone 4 mg tablets in See Rx Instructions PO PER PKG DIR 07/02/25 07/02/25 Rx a dose pack (Medrol (Herve)) #21 tabs Nurse's Note: Patient has congestion, cough and fever. Patient is also weak and tired. Patientstates this has been going on since Tuesday. [facility] Medical History (Updated 02/26/25 @ 00:01 by Jesusita Faye) History of cancer Post-menopausal Cancer Depression Anxiety Walker as ambulation aid Anemia Back pain Injury of head and neck Gastric reflux Leg cramps 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 health care History of pneumococcal infection Headache, migraine Carpal tunnel syndrome history of bone fracture Back problem Arthritis Seasonal allergies Endometriosis Screening for intestinal cancer Iron deficiency anemia Renal cell cancer Former tobacco use Obesity Pancreatitis URI, acute History of nausea and vomiting History of abdominal pain Surgical History History of esophagogastroduodenoscopy (EGD) History of back surgery s/p kidney cancer Status post endometrial ablation Family History Brother Asthma Malignant hyperthermia due to anesthesia Hypertension Grandfather Colon cancer Mother Heart disease Thyroid disorder COPD (chronic obstructive pulmonary disease) Arthritis Anemia Sister Breast cancer Hypertension Thyroid disorder Hypothyroid Arthritis Father Bleeding disorder Cancer Lung Myelodysplastic syndrome Chronic lymphocytic leukemia Alcohol abuse Aunt Myocardial infarction Social History household members: children Smoking Status: Former smoker alcohol intake: current alcohol intake frequency: holidays/special occasions only what type of physical activity do you participate in: walking, bicycling, aerobics and weight training do you feel safe at home: Yes HPI HPI Chief Complaint: congestion and cough Details: ALVINO NUPUR, is a 60 F who presents to the office today for [facility] evaluation [facility] the [facility] for approximately 4 day history of persistent congestion, cough, fever (?Tmax) - stating he feels weak and tired. No c/o chills, DUNN, myalgias, nausea, and diarrhea. Patient notes no complaints of chestpain or shortness of breath or dyspnea on exertion. Several close contacts recently dx?d w/ similar URI complaints. No [id number] taken to assist. Noother associated symptoms and no other alleviating/aggravating factors. ROS Const Constitutional: No other (As above) Exam Const General: cooperative, healthy appearing and no acute distress Orientation: alert, awake HENMA Head: normal to inspection Ears: hearing grossly normal bilaterally, external ears normal, TM's normal bilaterally and EAC's normal Nose: external nose normal, nares normal, septum normal and clear nasal discharge Face and sinus: normal facial exam, sinuses nontender and face symmetric Mouth: oral mucosae normal, lip normal, tongue normal and oropharynx normal Throat: posterior oropharynx normal, tonsils normal, uvula midline and no postnasal drainage Eyes General: appearance normal, both eyes and all related structures Neck Neck: normal visual inspection, full ROM, no lymphadenopathy, no meningeal signsand supple Neck mass: No Thyroid: thyroid normal Lymphatic: no lymphadenopathy noted Chest Chest palpation & inspection: normal inspection of the chest Resp Effort & Inspection: normal respiratory effort, able to speak in complete sentences and cough Quality of cough: wet (nonproductive in office today) Auscultation: Bilateral: Clear to Auscultation Cardio Palpation: normal PMI Rate: regular Rhythm: regular rhythm Heart Sounds: S1 normal, S2 normal Pulses: radial pulses present Skin General: no rashes or lesions noted Neuro General: patient alert, patient awake Cognition: normal cognition Speech: speech normal Psych Appearance: grossly normal Mental Status: mental status grossly normal Mood: congruent mood Affect: normal affect Speech and Movement: speech and movement normal Attitude: cooperative Diagnoses URI (upper respiratory infection) J06.9 Assessment and Plan Assessment and Plan (1) URI (upper respiratory infection): Status: Acute Plan: Patient refusing all POC screening upon offering. Medrol and Benzonatate as prescribed today. Supportive measures as instructed today. Follow-up with PCP in 5 to 7 days should symptoms not improve, ED sooner should symptoms worsen or any other concerns develop. Pt states acknowledging understanding all the above. Coding Level of Care Code Off vis,est,level 3 Assessment and Plan Assessment and Plan Medications: New methylprednisolone (Medrol (Herve)) PO PER PKG DIR 21 tabs 0RF benzonatate 200 mg PO TID PRN 20 caps 0RF cough 07/02/25 1405 <Electronically signed by Shade SCHULTZ> Date _ Shade SCHULTZ Cosigner Signature: Date (if applicable) CC: ~ [employer] Work Phone: [phone] History of Present illness Narrative* Shea Jones RN - 06/26/2025 12:05 PM EDT OV with Dr. Styles prior to treatment. Assessment reviewed and unchanged documented [facility] History of Present illness Narrative* Jadon Styles DO - 06/26/2025 11:33 AM EDT Oncologic problem(s): 1) Multiple myeloma. HISTORY OF PRESENT ILLNESS: Alvino Nina is a 59 year old female had back pain and MRI scan lumbar spine without contrast showed an acute mild compression fracture at superior end plate of L5.Spinal stenosis at L4 to L5. 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 She continued to have significant pain in her lower back which limited her movement and daily activity. She was on morphine, oxycodone and [place] which caused significant nausea A follow-up MRI scan of the thoracic spine on 06/09/2020 also showed acute moderate wedge compression fracture at T11 without obvious protrusion into the spinal canal. There were no obvious lytic lesions or marrow infiltrations in her thoracic or lumbar spine. Liver MRI in January 2023 noted pancreatic cyst, suggested yearly follow up x 5 years. Previous treatment: 1) RvD - lenalidomide, bortezomib, dexamethasone (CR) 2) ASCT 01/15/2021. 4) Lenalidomide maintenance. Stopped May 2024 secondary to ongoing nausea. 3) Botezomib every other week maintenance. Current therapy: 1) Daratumumab (has been on) and Pomalyst (started today). 2) Zometa. Revlimid causes significant nausea. Presents for ongoing oncologic management. Interim history: Methadone stopped due to fatigue. Fentanyl patch seems to be helping the back pain. Not sure if will be as good once methadone is out of her system. Neuropathy--started having some neuropathy symptoms in the feet where she previously had not. Balance is still off. She uses a wheeled walker mainly to help relieve pressure on her back. Migraines started after last dose or 2 of daratumumab. Respond well to rizatriptan. Nausea under much better control. She stopped routine hydration. However she feels like nausea wants to come back. No vomiting. PAST MEDICAL HISTORY Diagnosis Date Benign renal tumor unsure of malignancy Cancer of right kidney (HCC) Compression fracture of L5 vertebra ([facility]) 05/2020 Compression fracture of T11 vertebra ([facility]) 06/09/2020 acute moderate compression fx withou obvious protrusion into the spinal canal, seen on MRI Endometriosis Environmental allergies Generalized anxiety disorder Immunodeficiency ([facility]) 03/04/2021 Irregular heart beat Lytic lesion of bone on x-ray 06/25/2020 skull, bilateral humeri, bilateral femurs and possibly the left tibial plateau Multiple myeloma not having achieved remission ([facility]) 06/25/2020 Multiple myeloma not having achieved remission ([facility]) 06/25/2020 Osteopenia 06/25/2020 S/P autologous bone marrow transplantation ([facility]) 01/13/2021 Day: +13 Protocol(s): Auto 3422 1C Melphalan 200 Preparative regimen: melphalan Mobilization regimen: Neupogen Stem cell source: Stem cells CD34 cell dose (x10e6/kg): 5.14 Date of transplant: 01/15/2021 PAST SURGICAL HISTORY Procedure Laterality Date BACK SURGERY HX EGD 03/03/2023 FNA WITH IMAGING 09/12/2012 U/S FNA left thyroid nodule KIDNEY BIOPSY Right 2012 KYPHOPLASTY - LUMBAR 06/05/2020 L5 LAPS ABD PRTM&OMENTUM DX W/WO SPEC BR/WA SPX 1984 Laparoscopy LIG/TRNSXJ FLP TUBE ABDL/VAG APPR UNI/BI 2011 Tubal ligation, with ablation TONSILLECTOMY HX TUMOR REMOVAL (SPECIFY LOCATION) HX Right 2012 kidney Current Outpatient Medications Medication Sig fentaNYL (DURAGESIC) 50 mcg/hr Apply 1 patch as directed every 72 hours. Do not cut patch. cholecalciferol, vitamin D3, (VITAMIN D3 PO) Take 1 tablet by mouth once daily. ferrous sulfate (IRON PO) Take 2 tablets by mouth once daily. multivitamin tablet Take 1 tablet by mouth once daily. sennosides (SENOKOT PO) Take 1 tablet by mouth once daily as needed. MAGNESIUM PO Take 1 tablet by mouth daily at bedtime. omeprazole (PRILOSEC) 40 mg capsule TAKE 1 CAPSULE BY MOUTH ONCE DAILY famotidine (PEPCID) 20 mg tablet Take 1 tablet by mouth once daily. rizatriptan (MAXALT) 10 mg tablet Take 1 tablet by mouth as needed. May repeat dose after 2 hours if needed. Maximum daily dose is 30 mg per day. pomalidomide (POMALYST) 1 mg capsule Take 1 capsule (1 mg) by mouth once daily. Take 1 capsule by mouth once daily for 21 days and then off for 7 days. risperiDONE (RISPERDAL) 0.25 mg tablet Take 0.25 mg by mouth once daily. Take 2 night prior to treatment ondansetron (ZOFRAN) 8 mg tablet Take 2 mg by mouth every 8 hours as needed. (Patient taking differently: Take 8 mg by mouth every 8 hours as needed.) busPIRone (BUSPAR) 7.5 mg tablet Take 7.5 mg by mouth two times a day. OTC PRODUCT Take 2 tablets by mouth two times a day. Green Tea Catechins albuterol HFA (PROVENTIL HFA, VENTOLIN HFA) 90 mcg/actuation inhaler Inhale 2 puffs as instructed every 4 hours as needed for wheezing/shortness of breath. lidocaine-prilocaine (EMLA) 2.5-2.5 % cream Apply 60 minutes before accessing port. LORazepam (ATIVAN) 0.5 mg Take 0.25 mg by mouth two times a day as needed. (Patient taking differently: Take 0.25 mg by mouth twice daily & 0.5 mg at bedtime.) escitalopram oxalate (LEXAPRO) 10 mg tablet Take 20 mg by mouth daily at bedtime. acyclovir (ZOVIRAX) 400 mg tablet Take 1 tablet by mouth two times a day. (Patient taking differently: Take 400 mg by mouth once daily.) fentaNYL (DURAGESIC) 25 mcg/hr Apply 1 patch as directed every 72 hours. 25 mg (Patient not taking:Reported on 06/26/2025) OTC PRODUCT Take 2 tablets by mouth two times a day. Adrenal LF (Patient not taking: Reported on 06/26/2025) No current facility-administered medications for this visit. ALLERGIES Allergen Reactions Adhesive Tape (Mariam* Rash Penicillins Hives Other reaction(s): Unknown Vicodin [Hydrocodon* Intolerance Latex Rash Other reaction(s): rash FAMILY HISTORY Problem Relation Age of Onset Allergies Brother Hypertension Brother Allergies Sister Breast Cancer Sister Anesthesia Mother Thyroid Mother other (valve replacement) Mother Hypertension Sister Thyroid Sister No Known Problems Paternal Grandmother Ischemic Heart Disease Father Hypertension Father Lung Cancer Father other (CLL) Father Chronic lymphocytic leukemia Heart Maternal Grandmother Colon Cancer Maternal Grandfather Heart Attack Paternal Grandfather 50 Anxiety disorder Brother Hypertension Brother No Known Problems Daughter No Known Problems Son Social History Tobacco Use Smoking status: Former Current packs/day: 0.00 Types: Cigarettes Start date: 06/23/1992 Quit date: 06/23/1997 Years since quittin.0 Smokeless tobacco: Never Tobacco comments: quit smoking cigarettes in 1984 but only had smoked for few years approximately 1 pack/week Vaping Use Vaping status: Never Used Substance Use Topics Alcohol use: Not Currently Comment: socially Drug use: No PHYSICAL EXAM: Vitals: Blood pressure 147/86, pulse 71, temperature 36.5 C (97.7 F), temperature source Temporal, weight 91.4 kg (201 lb 8 oz), SpO2 99%. Well-appearing and in no acute distress. EYES: Sclerae are anicteric bilaterally. CARDIOVASCULAR: Rhythm is regular. ABDOMEN: The abdomen is nondistended. SKIN: No jaundice. IMAGING: MRI pancreas 01/17/2024: IMPRESSION: Stable pancreatic cystic focus. Likely sidebranch IPMN. No focal pancreatic enlargement, pathologic enhancement or suspicious lesion Stable hepatic cysts, and stable left hepatic lobe hemangioma. Renal cysts. No suspicious renal lesion. 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 -IgA by RUFINA only. -Baseline kappa 1,073.3 mg/L (06/23/2020). -Port placed 01/24/2025. -Most recent BM bx 04/25/2025: 2% PC (good aspirate); FISH suggested hyperdiploidy; standard risk; normal karyotype. - Started daratumumab for persistent kappa light chain in the urine. - Pomalidomide was added due to an increase in the serum light chain and 24-hour urine collection. - Overall she is tolerating treatment itself very well. Continues to work with palliative care on optimizing pain medications but overall seems much better now than she was several months ago. - CBC reviewed. Allows continued therapy. Reviewed schedule of administration. Discussed that she will receive 8 doses of daratumumab given every other week then go to monthly dosing. Plan: - Continue daratumumab. - Continue pomalidomide. It was added due to an increase in kappa light chain and 24-hour urine quantification. - Dexamethasone 8 mg PO day of amanda only. - Continue acyclovir. - Myeloma labs every 3 months--will add in July. - Repeat 24 hour urine. - Consider repeat PET in about 2-3 months. - Trial of tapering Benadryl due to malaise after amanda. - Continue hydration to twice weekly. - MRI cervical and thoracic spine. - Follow-up with palliative care. Portions of this documentation were copied and pasted from my previous office visit note dated 05/15/2025 in order to provide a cohesive continuity of the history. The note has been reviewed and editedand updated as necessary. Jadon Styles DO documented in this encounterL[facility]09-[facility] History of Present illness Narrative* Srinivas Rojo RN - 06/14/2025 4:29 PM EDT Pt c/o facial fullness after 1L NS. BP increased from 153/89 to 170/92. No other symptom reported. Per pt, she first started noticing this 2 weeks ago after hydration appts. Per Dr. Styles, it's time to take a break from hydration. PSS made aware to cancel all hydration appointments. Notified pt via voicemail. documented in this encounterL[facility]25 Telephone encounter Note * Telephone Encounter - Katie Vega LPN - 06/14/2025 8:25 AM EDT Rx pended. Katie Vega LPN [facility] Miscellaneous Notes* Telephone Encounter - Katie Vega LPN - 06/14/2025 8:25 AM EDT Rx pended. Katie Vega LPN documented in this [facility]25 Telephone encounter Note * Telephone Encounter - Heather Cuevas RN - 06/13/2025 3:58 PM EDT Patient informed of Dr. Styles's response and stated understanding. ORAL ANTI-CANCER AGENTS EDUCATION patient called today for oral medication education of pomalyst for Multiple Myeloma Anticipated/Scheduled start date: 06/26/25 READINESS TO LEARN Cognitive Ability: Alert and oriented Motivation to Learn: Interested Family Support: High - Very involved in pt care Instruction Provided to: Patient Patient learns best by: Multiple Methods Factors affecting learning: None Physical limitation affecting learning: None RAUSCH ASSESSMENT: 1.) Verified that patient knows that the oral agents are for cancer and are taken by mouth. Yes 2.) Medication review completed during visit. Yes 3.) Patient is able to swallow pills. Yes 4.) Patient is able to read the drug label/information. Yes 5.) Patient is able to open the medication bottles and packages. Yes 6.) Has patient taken other pills for cancer? No 7.) Is patient experiencing any symptoms that would affect their ability to keep down pills, for example nausea or vomiting? No 8.) Verified that patient understands prescription delivery, benefit investigation and refill process. Yes DRUG-SPECIFIC EDUCATION: 1.) Verified patient knows the drug name. Yes 2.) Verified patient understands the dose and schedule of oral anti cancer agent. Yes 3.) Verified patient knows what to do if a medication dose is missed. Yes 4.) Verified patient understands where to store the drug. Yes 5.) Verified patient understands potential side effects and how to manage them. Yes 6.)Verified patient understands handling precautions of oral anti cancer agent. Yes 7.) Verified patient was given written instructions and understands when and whom to call with questions. Yes 8.) Verified patient understands where and how to return drug. Yes 9.) Verified patient received drug specific adult education handout and neutropenic wallet card Yes EVALUATE: The patient demonstrated an understanding of all the above education using the teach-back method. Yes Instructed to call us with any questions, concerns, and/or unresolved symptoms. Will continue to follow up and provide reinforcement of teaching topics as needed. Heather Cuevas RN [facility] Miscellaneous Notes* Telephone Encounter - Heather Cuevas RN - 06/13/2025 3:58 PM EDT Patient informed of Dr. Styles's response and stated understanding. ORAL ANTI-CANCER AGENTS EDUCATION patient called today for oral medication education of pomalyst for Multiple Myeloma Anticipated/Scheduled start date: 06/26/25 READINESS TO LEARN Cognitive Ability: Alert and oriented Motivation to Learn: Interested Family Support: High - Very involved in pt care Instruction Provided to: Patient Patient learns best by: Multiple Methods Factors affecting learning: None Physical limitation affecting learning: None RAUSCH ASSESSMENT: 1.) Verified that patient knows that the oral agents are for cancer and are taken by mouth. Yes 2.) Medication review completed during visit. Yes 3.) Patient is able to swallow pills. Yes 4.) Patient is able to read the drug label/information. Yes 5.) Patient is able to open the medication bottles and packages. Yes 6.) Has patient taken other pills for cancer? No 7.) Is patient experiencing any symptoms that would affect their ability to keep down pills, for example nausea or vomiting? No 8.) Verified that patient understands prescription delivery, benefit investigation and refill process. Yes DRUG-SPECIFIC EDUCATION: 1.) Verified patient knows the drug name. Yes 2.) Verified patient understands the dose and schedule of oral anti cancer agent. Yes 3.) Verified patient knows what to do if a medication dose is missed. Yes 4.) Verified patient understands where to store the drug. Yes 5.) Verified patient understands potential side effects and how to manage them. Yes 6.)Verified patient understands handling precautions of oral anti cancer agent. Yes 7.) Verified patient was given written instructions and understands when and whom to call with questions. Yes 8.) Verified patient understands where and how to return drug. Yes 9.) Verified patient received drug specific adult education handout and neutropenic wallet card Yes EVALUATE: The patient demonstrated an understanding of all the above education using the teach-back method. Yes Instructed to call us with any questions, concerns, and/or unresolved symptoms. Will continue to follow up and provide reinforcement of teaching topics as needed. Heather Cuevas RN * Telephone Encounter - Jadon Styles DO - 06/13/2025 2:32 PM EDT Advise trial of rizatriptan. Jadon Styles DO * Telephone Encounter - Heather Cuevas RN - 06/13/2025 2:08 PM EDT Care Coordination Triage Note [facility] Situation: Patient reports Pain--Headache Background: MM, has been getting headaches after the last two Darzalex treatments. Assessment: HEADACHE PAIN When did you first notice the headache? After the last two treatments. Lasts 2-3 days. How intense is the pain (scale of 1-10)? First day 7-05/19, same for the second day. Ibuprofen lowers pain down a couple notches How would you describe the headache (sharp, dull, pulsating, migraine-like )? Aching in temples Is the headache constant or intermittent? Constant Do you wake up with headaches? Normally no, but has been waking up with headaches 1-2 days after treatment. Do you have a history of headaches or migraines? No Have you had a headache like this before? Yes but doesn't last as long. Patient does not typically get headaches. Have you had any recent falls or trauma where you may have hit your head? no Are you taking any medications for headaches including OTC or supplements? Ibuprofen Are you doing anything else besides medications to help alleviate headaches such as heat, cold, etc? no Is there anything that makes the headache worse? (examples: bright lights, environmental exposures,loud noises, change of position) patient stated if she was more active or jumping this would cause an increase in pain. Recommendations: Per RNCC, patient directed to: Manage at home. Instructions provided. Will discuss with Dr. Styles. Heather Cuevas RN June 13, 2025 2:12 PM * Telephone Encounter - Katie Vega LPN - 06/13/2025 12:10 PM EDT Patient received Pomalyst today. Dr. Styles said to begin with next Darzalex which would be 06/26/2025. Patient is aware. Forwarding to Heather for c/o headache. Katie Vega LPN documented in this encounterL[facility]09-04-[facility]25 Telephone encounter Note * Telephone Encounter - Jadon Styles DO - 06/13/2025 2:32 PM EDT Advise trial of rizatriptan. Jadon Styles DO [facility] Telephone encounter Note* Telephone Encounter - Heather Cuevas RN - 06/13/2025 2:08 PM EDT Care Coordination Triage Note [facility] Situation: Patient reports Pain--Headache Background: MM, has been getting headaches after the last two Darzalex treatments. Assessment: HEADACHE PAIN When did you first notice the headache? After the last two treatments. Lasts 2-3 days. How intense is the pain (scale of 1-10)? First day -05/19, same for the second day. Ibuprofen lowers pain down a couple notches How would you describe the headache (sharp, dull, pulsating, migraine-like )? Aching in temples Is the headache constant or intermittent? Constant Do you wake up with headaches? Normally no, but has been waking up with headaches 1-2 days after treatment. Do you have a history of headaches or migraines? No Have you had a headache like this before? Yes but doesn't last as long. Patient does not typically get headaches. Have you had any recent falls or trauma where you may have hit your head? no Are you taking any medications for headaches including OTC or supplements? Ibuprofen Are you doing anything else besides medications to help alleviate headaches such as heat, cold, etc? no Is there anything that makes the headache worse? (examples: bright lights, environmental exposures,loud noises, change of position) patient stated if she was more active or jumping this would cause an increase in pain. Recommendations: Per RNCC, patient directed to: Manage at home. Instructions provided. Will discuss with Dr. Styles. Heather Cuevas RN June 13, 2025 2:12 PM [facility] Tele[facility] encounter Note* Telephone Encounter - Katie Vega LPN - 06/13/2025 12:10 PM EDT Patient received Pomalyst today. Dr. Styles said to begin with next Darzalex which would be 06/26/2025. Patient is aware. Forwarding to Heather for c/o headache. Katie Vega LPN [facility] History of Present illness Narrative* Saba Roa APRN.DEVELOPMENT COACH - 06/12/2025 1:23 PM EDT Chief Complaint No chief complaint on file. HPI: Alvino Nina is a 60 year old female who presents here today for evaluation for treatment today. Per Dr. Styles's previous note: H/o back pain and MRI scan lumbar spine without contrast showed an acute mild compression fracture at superior end plate of L5. Spinal stenosis at L4 to L5. 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 She continued to have significant pain in her lower back which limited her movement and daily activity. She was on morphine, oxycodone and [place] which caused significant nausea A follow-up MRI scan of the thoracic spine on 06/09/2020 also showed acute moderate wedge compression fracture at T11 without obvious protrusion into the spinal canal. There were no obvious lytic lesions or marrow infiltrations in her thoracic or lumbar spine. Liver MRI in January 2023 noted pancreatic cyst, suggested yearly follow up x 5 years. Previous treatment: 1) RvD - lenalidomide, bortezomib, dexamethasone (CR) 2) ASCT 01/15/2021. 4) Lenalidomide maintenance. Stopped May 2024 secondary to ongoing nausea. 3) Botezomib every other week maintenance. Current therapy: 1) Daratumumab 2) Zometa. Revlimid causes significant nausea. Dr. Miles changed med from methadone to fentanyl 25. Pt. will start the patch tomorrow. Appetite:Fair. Wt. stable. Energy level:It's . Denies fevers. Mouth:denies sores Resp:denies cough or sob Cardiac:denies chest pain/palpitations GI:denies abd pain, occ. nausea-takes zofran with relief, moving bowels with senna every fourth day :denies dysuria/hematuria Extrem:denies new pain, chronic back Neuro:denies symptoms of neuropathy Skin:denies rashes Heme:denies bleeding The ROS is otherwise negative. Past medical history, appointments, medications, allergies reviewed. No changes. EXAM: BP 129/86 Pulse 81 Temp 36.8 C (98.2 F) (Temporal) Wt 89.4 kg (197 lb) SpO2 97% BMI 38.47kg/m APPEARANCE Well appearing, alert, in no acute distress, well-hydrated, well nourished. HEART RRR with normal S1 and S2, no murmurs LUNG clear to auscultation LYMPH NODES No cervical lymphadenopathy, No supraclavicular lymphadenopathy, and No axillary lymphadenopathy. ABDOMEN bowel sounds normoactive, soft, non-tender EXTREMITIES No edema NEURO Awake, alert and oriented x 3, using wheeled walker, and No involuntary motions. SKIN Skin color, texture, turgor normal, no suspicious rashes or lesions LABS: Latest Ref Rng 05/15/2025 05/29/2025 06/12/2025 WBC 3.70 - 11.00 k/uL 7.99 6.05 7.16 RBC 3.90 - 5.20 m/uL 3.75 (L) 3.61 (L) 3.70 (L) Hemoglobin 11.5 - 15.5 g/dL 11.7 11.3 (L) 11.6 Hematocrit 36.0 - 46.0 % 35.7 (L) 34.3 (L) 34.5 (L) MCV 80.0 - 100.0 fL 95.2 95.0 93.2 MCH 26.0 - 34.0 pg 31.2 31.3 31.4 MCHC 30.5 - 36.0 g/dL 32.8 32.9 33.6 RDW-CV 11.5 - 15.0 % 12.4 11.9 11.9 Platelet Count 150 - 400 k/uL 175 127 (L) 199 MPV 9.0 - 12.7 fL 9.3 9.1 9.7 Neut% % 63.7 69.0 74.4 Abs Neut (ANC) 1.45 - 7.50 k/uL 5.09 4.18 5.33 Lymph% % 22.5 19.7 15.8 Abs Lymph 1.00 - 4.00 k/uL 1.80 1.19 1.13 [place]% % 11.5 9.1 8.1 Abs [place] <0.87 k/uL 0.92 (H) 0.55 0.58 Eosin% % 1.0 1.3 0.8 Abs Eosin <0.46 k/uL 0.08 0.08 0.06 Baso% % 0.5 0.7 0.6 Abs Baso <0.11 k/uL 0.04 0.04 0.04 Immature Gran % % 0.8 0.2 0.3 IMMATURE GRANS (ABS) <0.10 k/uL 0.06 <0.03 <0.03 NRBC /100 WBC 0.0 0.0 0.0 Absolute nRBC <0.01 k/uL <0.01 <0.01 <0.01 DTYPE Auto Auto Auto CMP: Pending ASSESSMENT/PLAN: 1. Multiple myeloma not having achieved remission (HCC) - ICD9: 203.00, ICD10: C90.[address] Styles's previous note: Assessment: -IgA kappa MM. -IgA by RUFINA only. -Baseline kappa 1,073.3 mg/L (06/23/2020). -Port placed 01/24/2025. -Most recent BM bx 04/25/2025: 2% PC (good aspirate); FISH suggested hyperdiploidy; standard risk; normal karyotype. - Started daratumumab for persistent kappa light chain in the urine. - Reviewed lab work with her. Light chain ratio with increased kappa. [place] light chain in 24 hour urine collection increased. Serum showing amanda only. MRI noted--done one week after bone marrow biopsy obtained from right side. -Seems small increase in 24 hour urine kappa light chain. But the baseline was from 06/2024, so discussed monthly urine collection to monitor closely. Pomalidomide if trending higher. Plan: - Continue daratumumab. - Dexamethasone 8 mg PO day of amanda only. - Continue acyclovir. - Myeloma labs every 3 months. - Repeat 24 hour urine. - Consider repeat PET in about 3 months. - Trial of tapering Benadryl due to malaise after amanda. - Continue hydration to twice weekly. - MRI cervical and thoracic spine. - Follow-up with palliative care. - Overall tolerating treatment well. - Reviewed CBC with pt. - CMP pending. - Continue monthly urine. - Continue current medications. - Continue zometa per Dr. Styles. - Pt. supposed to receive pomalyst tomorrow. Advised pt. to call when she receives it. - Continue two times per week hydration. - Proceed as scheduled today for darzalex/zometa/hydration. - Follow up as scheduled. - Pt. aware to call office with any questions/concerns. The patient indicates understanding of these issues and agrees with the plan. All documentation from previous visit of 05/29/25-Dr. Styles/myself was copied and pasted, documentation has been reviewed and edited as necessary for today's visit. Saba Roa APRN.GALINA documented in this encounterLuther[facility]09-02-[facility]25 Telephone encounter Note * Telephone Encounter - Katie Vega LPN - 06/11/2025 4:25 PM EDT Patient is aware of all information and will await phone call from specialty pharmacy. PA completed and approved via Cover My Meds. Katie Vega LPN [facility]09-02-[facility] Miscellaneous Notes* Telephone Encounter - Katie Vega LPN - 06/11/2025 4:25 PM EDT Patient is aware of all information and will await phone call from specialty pharmacy. PA completed and approved via Cover My Meds. Katie Vega LPN * Telephone Encounter - Katie Vega LPN - 06/11/2025 2:54 PM EDT Enrollment updated to Pomalyst on [facility] website. PA initiated via Cover My Meds. I left a message for the patient to contact this nurse. Katie Vega LPN * Telephone Encounter - Jadon Styles DO - 06/11/2025 1:30 PM EDT Can let her know there is been an increase in the light chain protein in the urine. Will work on getting her started on Pomalyst in addition to continuing daratumumab. Jadon Styles DO * Telephone Encounter - Katie Vega LPN - 06/11/2025 9:12 AM EDT I called the lab and they will attempt to input that result if able. They will notify the office ifany issue arises. Katie Vega LPN * Telephone Encounter - Jadon Styles DO - 06/09/2025 9:23 AM EDT Still some kappa light chain in 24 hour sample, but amount not quantified the amount. Please contact reference lab to see if this was done or not. The specific test name is M Сергей Quant, 24 Hr Urine. Jadon Styles DO * Telephone Encounter - Paris Ahuja RN - 06/07/2025 3:28 PM EDT Patient asking about her 24 hour urine results. She would like someone to call her and go over the results please. documented in this encounterLutheran Hospital09-02-2025 Telephone encounter Note * Telephone Encounter - Katie Vega LPN - 06/11/2025 2:54 PM EDT Enrollment updated to Pomalyst on [facility] website. PA initiated via Cover My Meds. I left a message for the patient to contact this nurse. Katie Vega LPN [facility] Telephone encounter Note* Telephone Encounter - Katie Vega LPN - 06/11/2025 2:49 PM EDT Enrollment updated to Pomalyst on [facility] website. [employer] auth #[id number]. PA initiated via Cover My Meds. Please send Rx. Katie Vega LPN [facility] Miscellaneous Notes* Telephone Encounter - Katie Vega LPN - 06/11/2025 2:49 PM EDT Enrollment updated to Pomalyst on [facility] website. [employer] auth #[id number]. PA initiated via Cover My Meds. Please send Rx. Katie Vega LPN documented in this encounterLutheran Hospital09-02-2025 Telephone encounter Note * Telephone Encounter - Jadon Styles DO - 06/11/2025 1:30 PM EDT Can let her know there is been an increase in the light chain protein in the urine. Will work on getting her started on Pomalyst in addition to continuing daratumumab. Jadon Styles DO [facility] Telephone encounter Note* Telephone Encounter - Katie Vega LPN - 06/11/2025 9:12 AM EDT I called the lab and they will attempt to input that result if able. They will notify the office ifany issue arises. Katie Vega LPN [facility]08-31[facility] Telephone encounter Note* Telephone Encounter - Jadon Styles DO - 06/09/2025 9:23 AM EDT Still some kappa light chain in 24 hour sample, but amount not quantified the amount. Please contact reference lab to see if this was done or not. The specific test name is M Сергей Quant, 24 Hr Urine. Jadon Styles DO [facility] Telephone encounter Note* Telephone Encounter - Paris Ahuja RN - 06/07/2025 3:28 PM EDT Patient asking about her 24 hour urine results. She would like someone to call her and go over the results please. [facility] History of Present illness Narrative* Paris Ahuja RN - 06/07/2025 2:31 PM EDT Per patient, she will be going to getting hydration 2x/week for 2 weeks and then go to getting hydration just once a week. Patient states she has not been feeling too well after getting fluids and explains she feels too full. She discussed this with her PCP and she is agreeable with patient. Patient will receive fluids Tuesday and Tuesday next week. documented in this encounterLutheran Hospital08-22-2025 History of Present illness Narrative* Kavon Uriarte RN - 05/31/2025 2:56 PM EDT Study Number: [id number] Study Title: Collection of Blood & Bone Marrow from [employer] & Patients for Research Purposes Consent expiration date: 12/28/2025 Spoke with patient at the request of Jadon Styles D.O. Treatment plan, including all testing, potential risks/benefits, side effects and management, treatment alternatives, and follow-up explained. Roles of the clinical trial personnel to be involved and the financial responsibilities regarding procedures and medications were discussed. Discussed the importance of effective contraception during andfollowing completion of active therapy for NA. Initial questions were answered and a copy of the informed consent was given to patient with the instructions to read it and call with any additional questions. Contact information for the research nurse was given to the patient. The patient verbalizedappropriate understanding of all the aforementioned information presented. Time of Presentation: 1:45PM May 31, 2025 Kavon Uriarte RN Research Nurse - [place] [phone] documented in this encounterLutheran Hospital08-20-2025 History of Present illness Narrative* Saba Roa APRN.DEVELOPMENT COACH - 05/29/2025 1:16 PM EDT Chief Complaint Patient presents with: Established Patient HPI: Alvino Nina is a 59 year old female who presents here today for evaluation for treatment today. Per Dr. Styles's previous note: H/o back pain and MRI scan lumbar spine without contrast showed an acute mild compression fracture at superior end plate of L5. Spinal stenosis at L4 to L5. 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 She continued to have significant pain in her lower back which limited her movement and daily activity. She was on morphine, oxycodone and [place] which caused significant nausea A follow-up MRI scan of the thoracic spine on 06/09/2020 also showed acute moderate wedge compression fracture at T11 without obvious protrusion into the spinal canal. There were no obvious lytic lesions or marrow infiltrations in her thoracic or lumbar spine. Liver MRI in January 2023 noted pancreatic cyst, suggested yearly follow up x 5 years. Previous treatment: 1) RvD - lenalidomide, bortezomib, dexamethasone (CR) 2) ASCT 01/15/2021. 4) Lenalidomide maintenance. Stopped May 2024 secondary to ongoing nausea. 3) Botezomib every other week maintenance. Current therapy: 1) Daratumumab 2) Zometa. Revlimid causes significant nausea. Pt. stopped taking the natural drops and is feeling better-more energy. Pt. here today with her sister. Appetite:Fair. Wt. stable. Energy level:It's improving since I stopped the natural drops. Denies fevers. Mouth:denies sores Resp:denies cough or sob Cardiac:denies chest pain/palpitations GI:denies abd pain, occ. nausea-takes zofran, moving bowels with senna every third day :denies dysuria/hematuria Extrem:denies new pain, chronic back Neuro:denies symptoms of neuropathy Skin:denies rashes Heme:denies bleeding The ROS is otherwise negative. Past medical history, appointments, medications, allergies reviewed. No changes. EXAM: BP 159/84 Pulse 76 Temp 36.7 C (98.1 F) (Temporal) Wt 89.4 kg (197 lb) SpO2 99% BMI 38.47kg/m APPEARANCE Well appearing, alert, in no acute distress, well-hydrated, well nourished. HEART RRR with normal S1 and S2, no murmurs LUNG clear to auscultation EXTREMITIES No edema NEURO Awake, alert and oriented x 3, using wheeled walker, and No involuntary motions. SKIN Skin color, texture, turgor normal, no suspicious rashes or lesions LABS: Latest Ref Rng 05/02/2025 05/15/2025 05/29/2025 WBC 3.70 - 11.00 k/uL 7.24 7.99 6.05 RBC 3.90 - 5.20 m/uL 3.58 (L) 3.75 (L) 3.61 (L) Hemoglobin 11.5 - 15.5 g/dL 11.4 (L) 11.7 11.3 (L) Hematocrit 36.0 - 46.0 % 34.0 (L) 35.7 (L) 34.3 (L) MCV 80.0 - 100.0 fL 95.0 95.2 95.0 MCH 26.0 - 34.0 pg 31.8 31.2 31.3 MCHC 30.5 - 36.0 g/dL 33.5 32.8 32.9 RDW-CV 11.5 - 15.0 % 12.5 12.4 11.9 Platelet Count 150 - 400 k/uL 156 175 127 (L) MPV 9.0 - 12.7 fL 8.9 (L) 9.3 9.1 Neut% % 75.9 63.7 69.0 Abs Neut (ANC) 1.45 - 7.50 k/uL 5.49 5.09 4.18 Lymph% % 11.0 22.5 19.7 Abs Lymph 1.00 - 4.00 k/uL 0.80 (L) 1.80 1.19 [place]% % 10.9 11.5 9.1 Abs [place] <0.87 k/uL 0.79 0.92 (H) 0.55 Eosin% % 1.4 1.0 1.3 Abs Eosin <0.46 k/uL 0.10 0.08 0.08 Baso% % 0.4 0.5 0.7 Abs Baso <0.11 k/uL 0.03 0.04 0.04 Immature Gran % % 0.4 0.8 0.2 IMMATURE GRANS (ABS) <0.10 k/uL 0.03 0.06 <0.03 NRBC /100 WBC 0.0 0.0 0.0 Absolute nRBC <0.01 k/uL <0.01 <0.01 <0.01 DTYPE Auto Auto Auto CMP: Pending ASSESSMENT/PLAN: 1. Multiple myeloma not having achieved remission (HCC) - ICD9: 203.00, ICD10: C90.[address] Styles's previous note: Assessment: -IgA kappa MM. -IgA by RUFINA only. -Baseline kappa 1,073.3 mg/L (06/23/2020). -Port placed 01/24/2025. -Most recent BM bx 04/25/2025: 2% PC (good aspirate); FISH suggested hyperdiploidy; standard risk; normal karyotype. - Started daratumumab for persistent kappa light chain in the urine. - Reviewed lab work with her. Light chain ratio with increased kappa. [place] light chain in 24 hour urine collection increased. Serum showing amanda only. MRI noted--done one week after bone marrow biopsy obtained from right side. -Seems small increase in 24 hour urine kappa light chain. But the baseline was from 06/2024, so discussed monthly urine collection to monitor closely. Pomalidomide if trending higher. Plan: - Continue daratumumab. - Dexamethasone 8 mg PO day of amanda only. - Continue acyclovir. - Myeloma labs every 3 months. - Repeat 24 hour urine. - Consider repeat PET in about 3 months. - Trial of tapering Benadryl due to malaise after amanda. - Continue hydration to twice weekly. - MRI cervical and thoracic spine. - Follow-up with palliative care. - Overall tolerating treatment well. - Reviewed CBC with pt. - CMP pending. - Continue monthly urine. - Continue current medications. - Pt. would like to add dex/benedryl back in her pre-meds today. Secure chat sent to Dr. Styles. - Continue three times per week hydration. - Proceed as scheduled today for darzalex/hydration. - Follow up as scheduled. - Pt. aware to call office with any questions/concerns. The patient indicates understanding of these issues and agrees with the plan. All documentation from previous visit of 05/15/25-Dr. Styles was copied and pasted, documentation has been reviewed and edited as necessary for today's visit. Saba Roa APRN.GALINA documented in this encounterLutheran Hospital08-15-2025 Telephone encounter Note * Telephone Encounter - Svetlana Dunham - 05/24/2025 8:46 AM EDT Pt returned the call will be here at 11. Appt has been updated. [facility] Miscellaneous Notes* Telephone Encounter - Svetlana Dunham - 05/24/2025 8:46 AM EDT Pt returned the call will be here at 11. Appt has been updated. * Telephone Encounter - Shea Jones, STACI - 05/24/2025 8:33 AM EDT Phone call placed to Alvino to see if she can come in earlier than 3:30 today for her hydration. Sheis going to call back with what time she can come in documented in this encounterLutheran Hospital08-15-2025 Telephone encounter Note * Telephone Encounter - Shea Jones, STACI - 05/24/2025 8:33 AM EDT Phone call placed to Alvino to see if she can come in earlier than 3:30 today for her hydration. Sheis going to call back with what time she can come in [facility] Telephone encounter Note* Telephone Encounter - Heather Cuevas RN - 05/23/2025 10:54 AM EDT Care Coordination Triage Note [facility] Situation: Patient reports Fatigue Background: MM. Flores. C4D15. Spoke to patient. Patient stated she felt good the day after treatment last week but then by 1-2 pmshe started going downhill and I've been downhill ever since then. Assessment: When did you first start to notice your fatigue? The day after last weeks treatment. How many days in the last week have you experienced fatigue? 7 out of the last 7 days Is your fatigue limiting your ability to eat or drink? Yes Is your fatigue interfering with your ability to care for yourself or do the things you want or need to do such as work or social activities? Yes Do you have any fever, pain or weakness? Denies fever or chills. Pain just my back denies new/worsening pain. Weakness: yes Is there anything that improves your fatigue such as rest, medications, other? No Slept 20 hours yesterday. If sleeping is an issue, are you having trouble falling asleep or staying asleep or both? No Do you take naps during the day? Almost all day and she sleeps all through the night. Do you take anything to help you sleep? No. Patient used to take magnesium but stopped. Denies starting any new medications/supplements. Takes methadone 5 mg, TID. Has been on for at least 40 days because she recently refilled. Nausea without emesis. Nausea is more than usual but its not bad. Takes Zofran PRN. Denies recent illness. Brain fog: it just feels very foggy. Patient denies issues with memory. Denies headaches. Recommendations: Per RNCC, patient directed to: Manage at home. Instructions provided. Will discuss with Dr. Styles. Heather Cuevas RN May 23, 2025 11:45 AM [facility] Miscellaneous Notes* Telephone Encounter - Heather Cuevas RN - 05/23/2025 10:54 AM EDT Care Coordination Triage Note [facility] Situation: Patient reports Fatigue Background: MM. Flores. C4D15. Spoke to patient. Patient stated she felt good the day after treatment last week but then by 1-2 pmshe started going downhill and I've been downhill ever since then. Assessment: When did you first start to notice your fatigue? The day after last weeks treatment. How many days in the last week have you experienced fatigue? 7 out of the last 7 days Is your fatigue limiting your ability to eat or drink? Yes Is your fatigue interfering with your ability to care for yourself or do the things you want or need to do such as work or social activities? Yes Do you have any fever, pain or weakness? Denies fever or chills. Pain just my back denies new/worsening pain. Weakness: yes Is there anything that improves your fatigue such as rest, medications, other? No Slept 20 hours yesterday. If sleeping is an issue, are you having trouble falling asleep or staying asleep or both? No Do you take naps during the day? Almost all day and she sleeps all through the night. Do you take anything to help you sleep? No. Patient used to take magnesium but stopped. Denies starting any new medications/supplements. Takes methadone 5 mg, TID. Has been on for at least 40 days because she recently refilled. Nausea without emesis. Nausea is more than usual but its not bad. Takes Zofran PRN. Denies recent illness. Brain fog: it just feels very foggy. Patient denies issues with memory. Denies headaches. Recommendations: Per RNCC, patient directed to: Manage at home. Instructions provided. Will discuss with Dr. Styles. Heather Cuevas RN May 23, 2025 11:45 AM documented in this encounterLutheran Hospital08-13-2025 Telephone encounter Note * Telephone Encounter - Katie Vega LPN - 05/22/2025 4:50 PM EDT MRI results addressed in another encounter. Katie Vega LPN [facility]08-13-[facility] Miscellaneous Notes* Telephone Encounter - Katie Vega LPN - 05/22/2025 4:50 PM EDT MRI results addressed in another encounter. Katie Vega LPN documented in this encounterLutheran Hospital08-13-2025 Progress note* Result Encounter Note - Jadon Styles DO - 05/22/2025 4:41 PM EDT The MRI of her cervical and thoracic spine did not show any sign of myeloma causing any impingementon nerves or spinal cord. [facility] Miscellaneous Notes* Result Encounter Note - Jadon Styles DO - 05/22/2025 4:41 PM EDT The MRI of her cervical and thoracic spine did not show any sign of myeloma causing any impingementon nerves or spinal cord. documented in this encounterLutheran Hospital08-11-2025 History of Present illness Narrative* Jazzmine Husain, RT(R) - 05/20/2025 8:00 AM EDT Radiology Service Progress Note DATE OF SERVICE: May 20, 2025 TIME: 8:13 AM PATIENT IDENTITY VERIFICATION COMPLETED USING TWO (2) STANDARD IDENTIFIERS: Name and Date of confirmed by patient verbally. FALL SCREENING: Has the patient had 2 falls in the last year or 1 fall with injury or currently using an Ambulatory Assistive Device (Walker, Cane, Wheelchair, Crutches, etc.)? Yes, Patient High Riskfor Falls What interventions were put in place to prevent falls during this visit? Instructed Patient to Callfor Help if Needed, Offered Assistance with Transfers/Clothing, Instructed Patient to Remain Seated(Not on Exam Table) Until Exam, and Increased Observations by Caregivers PATIENT GENDER DATA: Assigned female at . status: : No status:NO. PATIENT RELEVANT IMPLANT DATA REVIEWED: Yes PATIENT PRESENTS WITH AN IMPLANTABLE OR ATTACHED PEDIATRICIAN/MEDICAL DOCTOR: No ALLERGIES: Reviewed and unchanged CONTRAST ALLERGY: NO. EXAM: MRI - CONTRAST TYPE: GROUP II PERIPHERAL IV DATA: Ambulatory: A peripheral IV was started in the Right antecubital site with a Angio cath: 22 gauge. RADIOLOGY DEPARTMENT: MR; Exam(s) Completed: Spine: Cervical spine and Thoracic spine. AromatherapyAdministered: No SIGNATURE: RT Zuleima(R) PATIENT NAME: Alvino Nina DATE: May 20, 2025 TIME: 8:13 AM documented in this encounterLutheran Hospital08-01-2025 History of Present illness Narrative* Asha Bowling RN - 05/10/2025 9:42 AM EDT Pt. States she fell on Tuesday, notified her palliative dr, c/o increased bladder urgency & frequency since the fall. Dr. Styles notified. Per Dr. Styles N.O for UA and culture. Pt. Notified and agrees with the plan. documented in this encounterLutheran Hospital07-24-2025 History of Present illness Narrative* Tahir Gee RT(R) - 05/02/2025 9:00 AM EDT Radiology Service Progress Note PATIENT NAME: Alvino Nina DATE OF SERVICE: May 02, 2025 TIME: 9:08 AM PATIENT IDENTITY VERIFICATION COMPLETED USING TWO (2) IDENTIFIERS: Name and Date of confirmedby patient verbally. FALL SCREENING: Has the patient had 2 falls in the last year or 1 fall with injury or currently using an Ambulatory Assistive Device (Walker, Cane, Wheelchair, Crutches, etc.)? Yes, Patient High Riskfor Falls What interventions were put in place to prevent falls during this visit? Instructed Patient to Callfor Help if Needed, Offered Assistance with Transfers/Clothing, Instructed Patient to Remain Seated(Not on Exam Table) Until Exam, and Increased Observations by Caregivers PATIENT GENDER DATA: Assigned female at . status: : No status:NO. PATIENT RELEVANT IMPLANT DATA REVIEWED: Yes PATIENT PRESENTS WITH AN IMPLANTABLE OR ATTACHED PEDIATRICIAN/MEDICAL DOCTOR: No RADIOLOGY DEPARTMENT: MR; Exam(s) Completed: Spine: Lumbar spine. Aromatherapy Administered: No PERIPHERAL IV DATA: Site assessment: Clean,Dry and Intact, Site disposition Left in for next appointment SIGNED BY: Tahir Gee, RT(R) May 02, 2025 9:08 AM documented in this encounterLutheran Hospital07-24-2025 History of Present illness Narrative* Nadya Birch RN - 05/02/2025 7:04 AM EDT Patient is here for IVAD port flush/blood draw per [facility] protocol. IVAD is located in right upper chest. Site cleansed with Chloraprep IVAD accessed with a #20 gauge 3/4 non-coring Gripper needle Flush with 5cc's Normal Saline. Blood Return: Good. 10 cc's blood aspirated and discarded. Blood drawn for CBC. Flushed with: 20 ml Normal Saline. Non-coring needle left intact for further therapy. Opsite applied to puncture site. Site negative for redness, edema or tenderness. Patient tolerated procedure well. documented in this encounterLutheran Hospital07-23-2025 Telephone encounter Note * Telephone Encounter - Donna Browne LPN - 05/01/2025 3:21 PM EDT Patient made aware, she states she has pain medication on hand and will time it so that she takes adose just before coming in for test. Donna Browne LPN [facility]07-23-[facility] Miscellaneous Notes* Telephone Encounter - Donna Browne LPN - 05/01/2025 3:21 PM EDT Patient made aware, she states she has pain medication on hand and will time it so that she takes adose just before coming in for test. Donna Browne LPN * Telephone Encounter - Jadon Styles DO - 05/01/2025 2:41 PM EDT I hate to do this but I don't know anyplace in the [facility] system that uses sedation for MRI except main campus b/c they need on site anesthesia. If pain is this bad, then perhaps [facility]? Jadon Styles DO documented in this encounterLutheran Hospital07-23-2025 Telephone encounter Note * Telephone Encounter - Jadon Styles DO - 05/01/2025 2:41 PM EDT I hate to do this but I don't know anyplace in the [facility] system that uses sedation for MRI except main campus b/c they need on site anesthesia. If pain is this bad, then perhaps [facility]? Jadon Styles DO [facility] Telephone encounter Note* Telephone Encounter - Nichole Valladares - 05/01/2025 8:32 AM EDT done [facility] Work Phone: 1(384) 163-439007-23-2025 Miscellaneous Notes* Telephone Encounter - Nichole Valladares - 05/01/2025 8:32 AM EDT done documented in this encounterLutheran Hospital07-22-2025 Procedure note* Shannan Stevens RN - 04/30/2025 5:06 PM EDT Patient called and stated that she would rather be treated the same day as her MRI. States she is in a lot of back pain and getting in and out of the car is challenging. Would need to move treatment from 05/01 to 05/02/25 at 10:30 or 11am for her hydration/Darzalex. This RN states if the pain increases or any numbness/tingling occurs she needs to go to the ER. Patient understands and agrees with the plan. Shannan Stevens RN [facility] Work Phone: 1(648) 359-290307-22-2025 Procedure note* Shannan Stevens RN - 04/30/2025 5:06 PM EDT Patient called and stated that she would rather be treated the same day as her MRI. States she is in a lot of back pain and getting in and out of the car is challenging. Would need to move treatment from 05/01 to 05/02/25 at 10:30 or 11am for her hydration/Darzalex. This RN states if the pain increases or any numbness/tingling occurs she needs to go to the ER. Patient understands and agrees with the plan. Shannan Stevens RN documented in this encounterLutheran Hospital07-22-2025 Telephone encounter Note * Telephone Encounter - Nichole Valladares - 04/30/2025 4:15 PM EDT Scheduled. Will inform patient at 05/01 appointment. [facility] Work Phone: 1(811) 583-613507-22-2025 Miscellaneous Notes* Telephone Encounter - Slime Valladaresissa - 04/30/2025 4:15 PM EDT Scheduled. Will inform patient at 05/01 appointment. * Telephone Encounter - Treva Melvin PSS - 04/30/2025 3:36 PM EDT Pt would like to use port for appt on 05/02/25 @ 9:am for MRI documented in this encounterLuther[facility]07-[facility]25 Telephone encounter Note * Telephone Encounter - Treva Melvin PSS - 04/30/2025 3:36 PM EDT Pt would like to use port for appt on 05/02/25 @ 9:am for [facility] Procedure note* Saba Roa APRN.CNP - 04/25/2025 1:37 PM EDTAssociated Order(s): BONE MARROW BIOPSY Post-Procedure Diagnose(s): Multiple myeloma not having achieved remission (HCC) BEDSIDE PROCEDURE NOTE BONE MARROW BIOPSY Date/Start Time: 04/25/2025 12:39 PM Date/Stop Time: 04/25/2025 12:54 PM Performed by: Saba Roa APRN.DEVELOPMENT COACH Authorized by: Saba Roa APRN.DEVELOPMENT COACH Where was Patient When this Procedure was Performed: [facility] Ambulatory Informed Consent Consent Obtained: Written [place] Protocol A moment to CARE was completed. SIGN IN Personnel directly involved with the procedure wore the appropriate PPE. Special Equipment: Yes Patient/Surrogate Stated/Verified: Patient name, Date of , Relevant allergies and Intended procedure TIME OUT Relevant labs, photos, and/or imaging studies have been reviewed. Consent documented and matches the intended procedure. Correct side/site marked and visible. Medications required for procedure verified. No fire risk assessment and interventions applicable. No implant(s) inserted. Pre-Procedure Details: The area was prepped with povidone Iodine (Betadine) and allowed to dry. A sterile partial body drape was applied following the usual aseptic technique. Medications: Local Anesthesia (see MAR): Lidocaine 1% Procedure Details: Patient Position: Left lateral decubitus Aspiration Laterality: Unilateral Aspiration Site: Right posterior superior iliac crest Biopsy Laterality: Unilateral Biopsy Site: Right posterior sperior iliac crest OnControl biopsy system was used. Using aseptic technique, bone marrow aspiration was performed. A touch prep was taken. Core biopsy was obtained 0.5 cm. The core biopsy was confirmed. Number of External Insertion Sites: 1 Pressure dressing applied to Bone Marrow site(s). Hemostasis maintained. Assisting Clinician(s): Cara Garcia RN and Donna Browne LPN Post-Procedure Details: Patient Tolerance: Patient tolerated the procedure well with no immediate complications Immediate Complications: N/A Estimated Blood Loss: none Specimens Sent: bone marrow analysis, bone marrow chromosome analysis, DNA extraction and flow cytometry Teaching Complete: Bone Marrow Biopsy Post-procedure teaching complete Post-procedure care was reviewed and explained. Patient instructed to communicate complaints of redness, swelling, increased or unresolved pain, bleeding chills, bruising, and/or fever. Patient verbalized understanding. SIGN OUT All instruments, equipment, possible retained foreign bodies accounted for. SIGNATURE: Saba oRa APRN.CNP PATIENT NAME: Alvino Nina DATE: April 25, 2025 TIME: 1:37 PM [facility] Work Phone: [phone]) 638-433707-17-2025 Procedure note* Saba Roa APRN.CNP - 04/25/2025 1:37 PM EDTAssociated Order(s): BONE MARROW BIOPSY Post-Procedure Diagnose(s): Multiple myeloma not having achieved remission (HCC) BEDSIDE PROCEDURE NOTE BONE MARROW BIOPSY Date/Start Time: 04/25/2025 12:39 PM Date/Stop Time: 04/25/2025 12:54 PM Performed by: Saba Roa APRN.GALINA Authorized by: Saba Roa APRN.CNP Where was Patient When this Procedure was Performed: [facility] Informed Consent Consent Obtained: Written [place] Protocol A moment to CARE was completed. SIGN IN Personnel directly involved with the procedure wore the appropriate PPE. Special Equipment: Yes Patient/Surrogate Stated/Verified: Patient name, Date of , Relevant allergies and Intended procedure TIME OUT Relevant labs, photos, and/or imaging studies have been reviewed. Consent documented and matches the intended procedure. Correct side/site marked and visible. Medications required for procedure verified. No fire risk assessment and interventions applicable. No implant(s) inserted. Pre-Procedure Details: The area was prepped with povidone Iodine (Betadine) and allowed to dry. A sterile partial body drape was applied following the usual aseptic technique. Medications: Local Anesthesia (see MAR): Lidocaine 1% Procedure Details: Patient Position: Left lateral decubitus Aspiration Laterality: Unilateral Aspiration Site: Right posterior superior iliac crest Biopsy Laterality: Unilateral Biopsy Site: Right posterior sperior iliac crest OnControl biopsy system was used. Using aseptic technique, bone marrow aspiration was performed. A touch prep was taken. Core biopsy was obtained 0.5 cm. The core biopsy was confirmed. Number of External Insertion Sites: 1 Pressure dressing applied to Bone Marrow site(s). Hemostasis maintained. Assisting Clinician(s): Cara Garcia RN and Donna Browne LPN Post-Procedure Details: Patient Tolerance: Patient tolerated the procedure well with no immediate complications Immediate Complications: N/A Estimated Blood Loss: none Specimens Sent: bone marrow analysis, bone marrow chromosome analysis, DNA extraction and flow cytometry Teaching Complete: Bone Marrow Biopsy Post-procedure teaching complete Post-procedure care was reviewed and explained. Patient instructed to communicate complaints of redness, swelling, increased or unresolved pain, bleeding chills, bruising, and/or fever. Patient verbalized understanding. SIGN OUT All instruments, equipment, possible retained foreign bodies accounted for. SIGNATURE: Saba Roa APRN.CNP PATIENT NAME: Alvino Nina DATE: April 25, 2025 TIME: 1:37 PM documented in this encounterLutheran Hospital07-17-2025 History of Present illness Narrative* Donna Browne LPN - 04/25/2025 12:38 PM EDT Pt discharged to home with sister after BMBX with dry sterile dressing in place. No drainage noted.Post-procedure care reviewed with patient. Pt to call with any complaints of redness, swelling, increased or unresolved pain, bleeding, chills, bruising, and/or fever. Pt verbalized understanding. Donna Browne LPN documented in this encounterLutheran Hospital07-01-2025 History of Present illness Narrative* Sal Sellers RT(R) - 04/09/2025 10:00 AM EDT RADIOLOGY SERVICE PROGRESS NOTE SERVICE DATE: 04/09/2025 SERVICE TIME: 10:06 AM PATIENT IDENTITY VERIFICATION COMPLETED USING TWO (2) STANDARD IDENTIFIERS: Name and Date of confirmed by patient verbally FALL SCREENING: Has the patient had 2 falls in the last year or 1 fall with injury or currently using an Ambulatory Assistive Device (Walker, Cane, Wheelchair, Crutches, etc.)? Yes, Patient High Riskfor Falls What interventions were put in place to prevent falls during this visit? Increased Observations by Caregivers PATIENT GENDER DATA: .female ALLERGIES: Reviewed and unchanged MEDICATIONS REVIEWED: Not applicable PATIENT RELEVANT IMPLANT DATA REVIEWED: Not Applicable PATIENT PRESENTS WITH AN IMPLANTABLE OR ATTACHED PEDIATRICIAN/MEDICAL DOCTOR: No CREATININE: Creatinine Date Value Ref Range Status 04/03/2025 0.85 0.58 - 0.96 mg/dL Final 03/15/2025 1.16 (H) 0.58 - 0.96 mg/dL Final 03/01/2025 0.95 0.58 - 0.96 mg/dL Final Estimated Glomerular Filtration Rate Date Value Ref Range Status 04/03/2025 79 >=60 mL/min/1.73m Final Comment: Estimated Glomerular Filtration Rate (eGFR) is calculated using the 2020 CKD-EPI creatinine equation. This equation utilizes serum creatinine, sex, and age as parameters. The creatinine assay has traceable calibration to isotope dilution- mass spectrometry. Refer to KDIGO guidelines for clinical interpretation. In patients with unstable renal function, e.g. those with acute kidney injury, the eGFRmay not accurately reflect actual GFR. eGFR- Date Value Ref Range Status 10/27/2021 >60 Final P.O.C.T. RESULTS: N/A April 09, [address] PERFORMED: No IV SITE: Ambulatory: A peripheral IV was started in the Right antecubital site with a Angio cath: 24 gauge. POST EXAM PIV STATUS: Discontinued PROCEDURE TYPE: NM INJECT: PET/CT WHOLE BODY SCAN. 14.8 mCi F18 FDG. Administered By: mo . No othermedications given.. ADMINISTRATION TIME: 958 PATIENT DISCHARGED TO: Ambulatory patient, left CT department area. Is this a therapy: No A Diagnostic radioactive procedure has taken place, with no further precautions necessary other than routine body substance precautions. More information regarding radiation safety can be found using[employer] link: [email or web address] 20Diagnostic%[email or web address]%20Medicine%[email or web address] SIGNATURE: RAYSA Avila) PATIENT NAME: Alvino Nina DATE: April 09, 2025 TIME: 10:06 AM PAGER/CONTACT #: documented in this encounterLutheran Hospital07-01-2025 NoteHNO ID: [id number] Author: SAL SELLERS RT (R) Service: Nuclear Medicine Author Type: Technologist Type: Progress Notes Filed: 04/09/2025 10:07 Note Text: RADIOLOGY SERVICE PROGRESS NOTE SERVICE DATE: 04/09/2025 SERVICE TIME: 10:06 AM PATIENT IDENTITY VERIFICATION COMPLETED USING TWO (2) STANDARD IDENTIFIERS: Name and Date of confirmed by patient verbally FALL SCREENING: Has the patient had 2 falls in the last year or 1 fall with injury or currently using an Ambulatory Assistive Device (Walker, Cane, Wheelchair, Crutches, etc.)? Yes, Patient High Risk for Falls What interventions were put in place to prevent falls during this visit? Increased Observations by Caregivers PATIENT GENDER DATA: .female ALLERGIES: Reviewed and unchanged MEDICATIONS REVIEWED: Not applicable PATIENT RELEVANT IMPLANT DATA REVIEWED: Not Applicable PATIENT PRESENTS WITH AN IMPLANTABLE OR ATTACHED PEDIATRICIAN/MEDICAL DOCTOR: No CREATININE: Creatinine Date Value Ref Range Status 04/03/2025 0.85 0.58 - 0.96 mg/dL Final 03/15/2025 1.16 (H) 0.58 - 0.96 mg/dL Final 03/01/2025 0.95 0.58 - 0.96 mg/dL Final Estimated Glomerular Filtration Rate Date Value Ref Range Status 04/03/2025 79 >=60 mL/min/1.73m? Final Comment: Estimated Glomerular Filtration Rate (eGFR) is calculated using the 2020 CKD-EPI creatinine equation. This equation utilizes serum creatinine, sex, and age as parameters. The creatinine assay has traceable calibration to isotope dilution-mass spectrometry. Refer to KDIGO guidelines for clinical interpretation. In patients with unstable renal function, e.g. those with acute kidney injury, the eGFR may not accurately reflect actual GFR. eGFR- Date Value Ref Range Status 10/27/2021 >60 Final P.O.C.T. RESULTS: N/A April 09, [address] PERFORMED: No IV SITE: Ambulatory: A peripheral IV was started in the Right antecubital site with a Angio cath: 24 gauge. POST EXAM PIV STATUS: Discontinued PROCEDURE TYPE: NM INJECT: PET/CT WHOLE BODY SCAN. 14.8 mCi F18 FDG. Administered By: mo . No other medications given.. ADMINISTRATION TIME: 0959 PATIENT DISCHARGED TO: Ambulatory patient, left CT department area. Is this a therapy: No A Diagnostic radioactive procedure has taken place, with no further precautions necessary other than routine body substance precautions. More information regarding radiation safety can be found using this link: [email or web address]%[email or web address]%20Medicine%[email or web address] SIGNATURE: RT Margarita(R) PATIENT NAME: Alvino Nina DATE: April 09, 2025 TIME: 10:06 AM [phone] Telephone encounter Note* Telephone Encounter - Jadon Styles DO - 04/08/2025 12:54 PM EDT Agree with palliative care as planned. Will add Zofran with each hydration. Jadon Styles DO [facility] Miscellaneous Notes* Telephone Encounter - Jadon Styles DO - 04/08/2025 12:54 PM EDT Agree with palliative care as planned. Will add Zofran with each hydration. Jadon Styles DO * Telephone Encounter - Heather Cuevas RN - 04/08/2025 12:13 PM EDT Care Coordination Triage Note [facility] Situation: Patient reports Nausea/Vomiting Background: MM, nausea. Last darzalex treatment was on 04/03/25 Assessment: NAUSEA When did the nausea start? Nausea improved with hydration. The past three treatments patient has been nauseated right afterwards and before it was a little bit the next day, the next time was a little bit more, and then this past time she received Zofran with IVF and then it goes away, it doesn't last long. Is it constant or intermittent? Intermittent Are you taking any anti-nausea medications? See below. Zofran TID. Pall care added risperidone. Is there anything that makes the nausea worse? Unsure When was your last bowel movement? Yesterday Was it normal for you? Yes, has 1 BM daily. What have you been able to eat and drink in the past 24 hours? Drinking a lot of water, eating so so. Maintaining weight. Are you taking any pain medications or any new medications including supplements since the nausea started? Yes- from [facility] care. If yes, what? Patient is taking risperidone on treatment day the night before and after treatment if she is nauseated: 2 before bed before I have treatment. If she has nausea, take again after treatment. Patient also takes Zofran TID. No emesis. Recommendations: Per RNCC, patient directed to: Manage at home. Instructions provided. Patient informed this nurse will provide Dr. Styles with an update. Patient will continue to follow-up with [facility]. Heather Cuevas RN April 08, 2025 12:14 PM * Telephone Encounter - Heather Cuevas RN - 04/08/2025 10:35 AM EDT Care Coordination Triage Note [facility] Situation: Patient reports Nausea/Vomiting Background: MM, nausea. Last darzalex treatment was on 04/03/25 Assessment: Called patient, no answer, left a VM requesting a call back. Heather Cuevas RN April 08, 2025 10:41 AM documented in this encounterLutheran Hospital06-30-2025 Telephone encounter Note * Telephone Encounter - Heather Cuevas RN - 04/08/2025 12:13 PM EDT Care Coordination Triage Note [facility] Situation: Patient reports Nausea/Vomiting Background: MM, nausea. Last darzalex treatment was on 04/03/25 Assessment: NAUSEA When did the nausea start? Nausea improved with hydration. The past three treatments patient has been nauseated right afterwards and before it was a little bit the next day, the next time was a little bit more, and then this past time she received Zofran with IVF and then it goes away, it doesn't last long. Is it constant or intermittent? Intermittent Are you taking any anti-nausea medications? See below. Zofran TID. [facility] care added risperidone. Is there anything that makes the nausea worse? Unsure When was your last bowel movement? Yesterday Was it normal for you? Yes, has 1 BM daily. What have you been able to eat and drink in the past 24 hours? Drinking a lot of water, eating so so. Maintaining weight. Are you taking any pain medications or any new medications including supplements since the nausea started? Yes- from [facility] care. If yes, what? Patient is taking risperidone on treatment day the night before and after treatment if she is nauseated: 2 before bed before I have treatment. If she has nausea, take again after treatment. Patient also takes Zofran TID. No emesis. Recommendations: Per RNCC, patient directed to: Manage at home. Instructions provided. Patient informed this nurse will provide Dr. Styles with an update. Patient will continue to follow-up with [facility] care. Heather Cuevas RN April 08, 2025 12:14 PM [facility] Telephone encounter Note* Telephone Encounter - Heather Cuevas RN - 04/08/2025 10:35 AM EDT Care Coordination Triage Note [facility] Situation: Patient reports Nausea/Vomiting Background: MM, nausea. Last darzalex treatment was on 04/03/25 Assessment: Called patient, no answer, left a VM requesting a call back. Heather Cuevas RN April 08, 2025 10:41 AM [facility] History of Present illness Narrative* Chloe Pittman RN - 04/05/2025 2:08 PM EDT Pt c/o nausea. Dr. Styles aware and ordered Zofran IVP. Chloe Pittman RN documented in this encounterLutheran Hospital06-27-2025 Telephone encounter Note * Telephone Encounter - Sangeeta Garsia LPN - 04/05/2025 1:38 PM EDT Received Dental clearance from Rosalinda Childress . Pt. OK to start Zometa/Reclast/Xgeva Form scanned into system. Sangeeta Garsia LPN [facility] Miscellaneous Notes* Telephone Encounter - Sangeeta Garsia LPN - 04/05/2025 1:38 PM EDT Received Dental clearance from Rosalinda Childress . Pt. OK to start Zometa/Reclast/Xgeva Form scanned into system. Sangeeta Garsia LPN documented in this encounterLutheran Hospital06-25-2025 Telephone encounter Note * Telephone Encounter - Svetlana Dunham - 04/03/2025 2:59 PM EDT Pt stopped at desk after appt and this is scheduled as directed. Svetlana Dunham [facility] Miscellaneous Notes* Telephone Encounter - Svetlana Dunham - 04/03/2025 2:59 PM EDT Pt stopped at desk after appt and this is scheduled as directed. Svetlana Dunham * Telephone Encounter - Nichole Valladares - 04/03/2025 8:49 AM EDT Noted in appt notes for today for patient to schedule Pet scan and BMBX * Telephone Encounter - Katie Vega LPN - 04/02/2025 3:11 PM EDT PSS- please contact patient to schedule PET scan and BMBX as directed below. * Telephone Encounter - Jadon Styles DO - 04/02/2025 10:47 AM EDT Yes okay to discontinue Singulair. Orders filed. Patient aware. * Telephone Encounter - Katei Vega LPN - 04/02/2025 9:09 AM EDT Patient is aware of all information. Dr. Styles- please file orders. Patient asking if she can come off of the Singulair because she is getting headaches everyday and is having to take Motrin daily and has never had this issue in the past. PSS- please contact patient to schedule PET scan and BMBX as directed below. Katie Vega LPN * Telephone Encounter - Jadon Styles DO - 04/01/2025 5:26 PM EDT Recent 24-hour urine protein showed a bit more kappa light chain in the urine. I think it best if we get her scheduled for another bone marrow biopsy soon. I would like to do this to know that the treatment is working for her. Also recommend repeating whole-body PET scan. Please follow orders for that. Advise her to take one 0.5 mg Ativan tablet about an hour prior to biopsy. Orders for biopsy follow-up. CBC that day. Saba can consent for the biopsy when she is here. Jadon Styles DO documented in this encounterLutheran Hospital06-25-2025 History of Present illness Narrative* Saba Roa APRN.DEVELOPMENT COACH - 04/03/2025 1:47 PM EDT Chief Complaint Patient presents with: Established Patient HPI: Alvino Nina is a 59 year old female who presents here today for evaluation for treatment today. Per Dr. Styles's previous note: H/o back pain and MRI scan lumbar spine without contrast showed an acute mild compression fracture at superior end plate of L5. Spinal stenosis at L4 to L5. 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 She continued to have significant pain in her lower back which limited her movement and daily activity. She was on morphine, oxycodone and [place] which caused significant nausea A follow-up MRI scan of the thoracic spine on 06/09/2020 also showed acute moderate wedge compression fracture at T11 without obvious protrusion into the spinal canal. There were no obvious lytic lesions or marrow infiltrations in her thoracic or lumbar spine. Liver MRI in January 2023 noted pancreatic cyst, suggested yearly follow up x 5 years. Previous treatment: 1) RvD - lenalidomide, bortezomib, dexamethasone (CR) 2) ASCT 01/15/2021. 4) Lenalidomide maintenance. Stopped May 2024 secondary to ongoing nausea. 3) Botezomib every other week maintenance. Current therapy: 1) Daratumumab 2) Zometa. Revlimid causes significant nausea. No new concerns today. Pt. here today with family members. Appetite:I have an appetite. Wt. stable. Energy level:I'm exhausted. Denies fevers. Mouth:denies sores Resp:occ. cough with allergies, denies sob h/o seasonal allergies Cardiac:denies chest pain/occ. palpitations GI:denies abd pain, n/v, moving bowels regularly-imodium every 3-4 days :denies dysuria/hematuria Extrem:denies new pain Neuro:occ. tingling to fingers/toes Skin:denies rashes Heme:denies bleeding The ROS is otherwise negative. Past medical history, appointments, medications, allergies reviewed. No changes. EXAM: BP 134/89 Pulse 82 Temp 36.7 C (98.1 F) (Temporal) Wt 89.7 kg (197 lb 12.8 oz) SpO2 94% BMI 38.63 kg/m APPEARANCE Well appearing, alert, in no acute distress, well-hydrated, well nourished. HEART RRR with normal S1 and S2, no murmurs LUNG clear to auscultation LYMPH NODES No cervical lymphadenopathy and No supraclavicular lymphadenopathy ABDOMEN bowel sounds normoactive, soft, non-tender EXTREMITIES No edema NEURO Awake, alert and oriented x 3, using wheeled walker, and No involuntary motions. SKIN Skin color, texture, turgor normal, no suspicious rashes or lesions LABS: Latest Ref Rng 03/08/2025 03/15/2025 04/03/2025 WBC 3.70 - 11.00 k/uL 8.01 8.71 6.54 RBC 3.90 - 5.20 m/uL 3.94 3.78 (L) 3.68 (L) Hemoglobin 11.5 - 15.5 g/dL 12.3 11.8 11.6 Hematocrit 36.0 - 46.0 % 36.0 34.2 (L) 33.3 (L) MCV 80.0 - 100.0 fL 91.4 90.5 90.5 MCH 26.0 - 34.0 pg 31.2 31.2 31.5 MCHC 30.5 - 36.0 g/dL 34.2 34.5 34.8 RDW-CV 11.5 - 15.0 % 13.5 13.6 13.3 Platelet Count 150 - 400 k/uL 151 136 (L) 179 MPV 9.0 - 12.7 fL 9.5 9.5 9.7 Neut% % 73.4 77.7 68.8 Abs Neut (ANC) 1.45 - 7.50 k/uL 5.88 6.77 4.50 Lymph% % 15.6 11.5 18.2 Abs Lymph 1.00 - 4.00 k/uL 1.25 1.00 1.19 [place]% % 8.9 8.2 9.9 Abs [place] <0.87 k/uL 0.71 0.71 0.65 Eosin% % 1.4 1.8 2.0 Abs Eosin <0.46 k/uL 0.11 0.16 0.13 Baso% % 0.5 0.3 0.8 Abs Baso <0.11 k/uL 0.04 0.03 0.05 Immature Gran % % 0.2 0.5 0.3 IMMATURE GRANS (ABS) <0.10 k/uL <0.03 0.04 <0.03 NRBC /100 WBC 0.0 0.0 0.0 Absolute nRBC <0.01 k/uL <0.01 <0.01 <0.01 DTYPE Auto Auto Auto Latest Ref Rng 03/01/2025 03/15/2025 04/03/2025 Protein, Total 6.3 - 8.0 g/dL 6.1 (L) 6.3 6.3 Albumin 3.9 - 4.9 g/dL 4.0 4.2 4.1 Calcium 8.5 - 10.2 mg/dL 9.3 9.4 9.8 Bilirubin, Total 0.2 - 1.3 mg/dL 0.4 0.4 0.3 Alkaline Phosphatase 34 - 123 U/L 67 65 64 AST 13 - 35 U/L 14 16 18 ALT 7 - 38 U/L 13 13 15 Glucose 74 - 99 mg/dL 118 (H) 106 (H) 96 BUN 7 - 21 mg/dL 21 21 20 Creatinine 0.58 - 0.96 mg/dL 0.95 1.16 (H) 0.85 Sodium 136 - 144 mmol/L 137 137 138 Potassium 3.7 - 5.1 mmol/L 4.3 3.8 4.1 Chloride 98 - 107 mmol/L 103 103 103 CO2 22 - 30 mmol/L 22 23 23 Anion Gap 8 - 15 mmol/L 12 11 12 eGFR >=60 mL/min/1.73m 69 54 (L) 79 MM labs: Pending ASSESSMENT/PLAN: 1. Multiple myeloma not having achieved remission (HCC) - ICD9: 203.00, ICD10: C90.[address] Styles's previous note: Assessment: -IgA kappa MM. -IgA by RUFINA only. -Baseline kappa 1,073.3 mg/L (06/23/2020). -Port placed 01/24/2025. -[place] light chain in the urine. Small increase in serum. No detectable monoclonal protein by immunofixation of the serum. This suggested progressive disease. - Reviewed lab work with her. Appears to be maintaining good response. Plan: - Continue acyclovir and dexamethasone. - Myeloma labs every 3 months. Due in May with 24 hour urine. - Decrease dexamethasone to 8 mg on the days she receives Darzalex only. - We will try tapering Benadryl as well once known how she does with lower dose dexamethasone. - Follow-up with palliative care. - Decrease hydration to twice weekly. - Overall tolerating treatment well with hydration-otherwise is nauseated. - Reviewed CBC/CMP. - MM pending. - Continue current medications. - Continue hydration three times weekly. - Needs PET scan scheduled at [place]. - Bone marrow biopsy April 25 at 1pm. - Proceed as scheduled today for darzalex. - Follow up as scheduled otherwise. - Pt. aware to call office any questions/concerns. The patient indicates understanding of these issues and agrees with the plan. All documentation from previous visit of 03/15/25-Dr. Styles was copied and pasted, documentation has been reviewed and edited as necessary for today's visit. Saba Roa APRN.DEVELOPMENT COACH documented in this encounterL[facility] Telephone encounter Note * Telephone Encounter - Nichole Valladares - 04/03/2025 8:49 AM EDT Noted in appt notes for today for patient to schedule Pet scan and BMBX [facility] Work Phone: 1(972) 709-772606-25-2025 History of Present illness Narrative* Nadya Birch RN - 04/03/2025 7:37 AM EDT Patient is here for IVAD port flush/blood draw per [facility] protocol. IVAD is located in right upper chest. Site cleansed with Chloraprep IVAD accessed with a #20 gauge 3/4 non-coring Gripper needle Flush with 5cc's Normal Saline. Blood Return: Good. 10 cc's blood aspirated and discarded. Blood drawn for CBC. Flushed with: 20 ml Normal Saline. Non-coring needle left intact for further therapy. Opsite applied to puncture site. Site negative for redness, edema or tenderness. Patient tolerated procedure well. documented in this encounterLuther[facility]06-24-2025 Telephone encounter Note * Telephone Encounter - Katie Vega LPN - 04/02/2025 3:11 PM EDT PSS- please contact patient to schedule PET scan and BMBX as directed below. [facility] Tele[facility] Note* Telephone Encounter - Jadon Styles DO - 04/02/2025 10:47 AM EDT Yes okay to discontinue Singulair. Orders filed. Patient aware. [facility] Tele[facility] encounter Note* Telephone Encounter - Katie Vega LPN - 04/02/2025 9:09 AM EDT Patient is aware of all information. Dr. Styles- please file orders. Patient asking if she can come off of the Singulair because she is getting headaches everyday and is having to take Motrin daily and has never had this issue in the past. PSS- please contact patient to schedule PET scan and BMBX as directed below. Katie Vega LPN [facility] Telephone encounter Note* Telephone Encounter - Jadon Styles DO - 04/01/2025 5:26 PM EDT Recent 24-hour urine protein showed a bit more kappa light chain in the urine. I think it best if we get her scheduled for another bone marrow biopsy soon. I would like to do this to know that the treatment is working for her. Also recommend repeating whole-body PET scan. Please follow orders for that. Advise her to take one 0.5 mg Ativan tablet about an hour prior to biopsy. Orders for biopsy follow-up. CBC that day. Saba can consent for the biopsy when she is here. Jadon Styles DO [facility] Telephone encounter Note* Telephone Encounter - Kimberly Zeng - 03/22/2025 4:17 PM EDT Per secure chat hydration approved for 3 days a week per Dr. Raquel Zeng [facility]06-[facility] Miscellaneous Notes* Telephone Encounter - Kimberly Zeng - 03/22/2025 4:17 PM EDT Per secure chat hydration approved for 3 days a week per Dr. Raquel Zeng * Telephone Encounter - Katie Vega LPN - 03/22/2025 3:11 PM EDT Per AVS 03/15/2025- Decrease hydration to twice weekly. I spoke with the patient and she'd like to keep the hydration three times a week d/t nausea. At an May treatment, CBC/MM/24 hr. Urine, and an OV prior. Starting after 04/05/2025, patient would like her Darzalex on Wednesdays so her sister can bring her. Katie Vega LPN * Telephone Encounter - Katie Vega LPN - 03/22/2025 10:17 AM EDT Patient picked up urine supplies 03/21/2025. Katie Vega LPN * Telephone Encounter - Jadon Styles DO - 03/20/2025 5:20 PM EDT Can let her know recent lab work shows that her kappa light chain is higher than last time but fortunately the total serum monoclonal protein is lower. Creatinine slightly elevated so I recommend another 24-hour urine collection to further characterize this and check for the amount of kappa light chain in the urine. Orders filed. Jadon Styles DO documented in this encounterLuther[facility]06-13-2025 Telephone encounter Note * Telephone Encounter - Katie Vega LPN - 03/22/2025 3:11 PM EDT Per AVS 03/15/2025- Decrease hydration to twice weekly. I spoke with the patient and she'd like to keep the hydration three times a week d/t nausea. At an May treatment, CBC/MM/24 hr. Urine, and an OV prior. Starting after 04/05/2025, patient would like her Darzalex on Wednesdays so her sister can bring her. Katie Vega LPN [facility] Telephone encounter Note* Telephone Encounter - Katie Vega LPN - 03/22/2025 10:17 AM EDT Patient picked up urine supplies 03/21/2025. Katie Vega LPN [facility] Telephone encounter Note* Telephone Encounter - Jadon Styles DO - 03/20/2025 5:20 PM EDT Can let her know recent lab work shows that her kappa light chain is higher than last time but fortunately the total serum monoclonal protein is lower. Creatinine slightly elevated so I recommend another 24-hour urine collection to further characterize this and check for the amount of kappa light chain in the urine. Orders filed. Jadon Styles DO [facility] History of Present illness Narrative* Shannan Stevens RN - 03/15/2025 1:44 PM EDT Patient is here for IVAD port flush/blood draw. IVAD is located in right upper chest. Site cleansed with Chloraprep IVAD accessed with a #20 gauge 3/4 non-coring Gripper needle Flush with 5cc's Normal Saline. Blood Return: Good. 10 cc's blood aspirated and discarded. Blood drawn for CBC, CMP, and MM panel . Flushed with: 20 ml Normal Saline. Non-coring needle left intact for further therapy. Site negative for redness, edema or tenderness. Patient tolerated procedure well. Shannan Stevens RN documented in this encounterLutheran Hospital06-06-2025 History of Present illness Narrative* Jadon Styles, - 03/15/2025 1:23 PM EDT Oncologic problem(s): 1) Multiple myeloma. HISTORY OF PRESENT ILLNESS: Alvino Nina is a 59 year old female had back pain and MRI scan lumbar spine without contrast showed an acute mild compression fracture at superior end plate of L5.Spinal stenosis at L4 to L5. 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 She continued to have significant pain in her lower back which limited her movement and daily activity. She was on morphine, oxycodone and [place] which caused significant nausea A follow-up MRI scan of the thoracic spine on 06/09/2020 also showed acute moderate wedge compression fracture at T11 without obvious protrusion into the spinal canal. There were no obvious lytic lesions or marrow infiltrations in her thoracic or lumbar spine. Liver MRI in January 2023 noted pancreatic cyst, suggested yearly follow up x 5 years. Previous treatment: 1) RvD - lenalidomide, bortezomib, dexamethasone (CR) 2) ASCT 01/15/2021. 4) Lenalidomide maintenance. Stopped May 2024 secondary to ongoing nausea. 3) Botezomib every other week maintenance. Current therapy: 1) Daratumumab 2) Zometa. Revlimid causes significant nausea. Presents for ongoing oncologic management. Interim history: Cough resolved. Feels like she can decrease hydration to twice weekly. No longer having nausea. PAST MEDICAL HISTORY Diagnosis Date Benign renal tumor unsure of malignancy Cancer of right kidney (HCC) Compression fracture of L5 vertebra (HCC) 05/2020 Compression fracture of T11 vertebra (HCC) 06/09/2020 acute moderate compression fx withou obvious protrusion into the spinal canal, seen on MRI Endometriosis Environmental allergies Generalized anxiety disorder Immunodeficiency ([facility]) 03/04/2021 Irregular heart beat Lytic lesion of bone on x-ray 06/25/2020 skull, bilateral humeri, bilateral femurs and possibly the left tibial plateau Multiple myeloma not having achieved remission ([facility]) 06/25/2020 Multiple myeloma not having achieved remission ([facility]) 06/25/2020 Osteopenia 06/25/2020 S/P autologous bone marrow transplantation ([facility]) 01/13/2021 Day: +13 Protocol(s): Auto 3422 1C Melphalan 200 Preparative regimen: melphalan Mobilization regimen: Neupogen Stem cell source: Stem cells CD34 cell dose (x10e6/kg): 5.14 Date of transplant: 01/15/2021 PAST SURGICAL HISTORY Procedure Laterality Date BACK SURGERY HX EGD 03/03/2023 FNA WITH IMAGING 09/12/2012 U/S FNA left thyroid nodule KIDNEY BIOPSY Right 2012 KYPHOPLASTY - LUMBAR 06/05/2020 L5 LAPS ABD PRTM&OMENTUM DX W/WO SPEC BR/WA SPX 1984 Laparoscopy LIG/TRNSXJ FLP TUBE ABDL/VAG APPR UNI/BI 2012 Tubal ligation, with ablation TONSILLECTOMY HX TUMOR REMOVAL (SPECIFY LOCATION) HX Right 2012 kidney Current Outpatient Medications Medication Sig omeprazole (PRILOSEC) 40 mg capsule TAKE 1 CAPSULE BY MOUTH ONCE DAILY montelukast (SINGULAIR) 10 mg tablet Take 1 tablet by mouth once daily. levoFLOXacin (LEVAQUIN) 500 mg tablet Take 500 mg by mouth once daily. albuterol HFA (PROVENTIL HFA, VENTOLIN HFA) 90 mcg/actuation inhaler Inhale 2 puffs as instructed every 4 hours as needed for wheezing/shortness of breath. lidocaine-prilocaine (EMLA) 2.5-2.5 % cream Apply 60 minutes before accessing port. LORazepam (ATIVAN) 0.5 mg Take 0.25 mg by mouth two times a day as needed. scopolamine (TRANSDERM-SCOP) patch 1.5 mg/72 hr (delivers 1 mg over 3 days) Apply 1 patch as directed every 72 hours. (Patient not taking: Reported on 03/11/2025) escitalopram oxalate (LEXAPRO) 10 mg tablet Take 20 mg by mouth daily at bedtime. acyclovir (ZOVIRAX) 400 mg tablet Take 1 tablet by mouth two times a day. dexAMETHasone (DECADRON) 2 mg tablet Take 5 tablets by mouth once daily. the day after the first three doses of daratumumab. (Patient not taking: Reported on 02/22/2025) No current facility-administered medications for this visit. ALLERGIES Allergen Reactions Adhesive Tape (Mariam* Rash Penicillins Hives Other reaction(s): Unknown Vicodin [Hydrocodon* Intolerance Latex Rash Other reaction(s): rash FAMILY HISTORY Problem Relation Age of Onset Allergies Brother Hypertension Brother Allergies Sister Breast Cancer Sister Anesthesia Mother Thyroid Mother other (valve replacement) Mother Hypertension Sister Thyroid Sister No Known Problems Paternal Grandmother Ischemic Heart Disease Father Hypertension Father Lung Cancer Father other (CLL) Father Chronic lymphocytic leukemia Heart Maternal Grandmother Colon Cancer Maternal Grandfather Heart Attack Paternal Grandfather 50 Anxiety disorder Brother Hypertension Brother No Known Problems Daughter No Known Problems Son Social History Tobacco Use Smoking status: Former Current packs/day: 0.00 Types: Cigarettes Start date: 06/23/1992 Quit date: 06/23/1997 Years since quittin.7 Smokeless tobacco: Never Tobacco comments: quit smoking cigarettes in 1984 but only had smoked for few years approximately 1 pack/week Vaping Use Vaping status: Never Used Substance Use Topics Alcohol use: Not Currently Comment: socially Drug use: No PHYSICAL EXAM: Vitals: Blood pressure 126/84, pulse 100, temperature 36.4 C (97.5 F), temperature source Temporal,weight 88.9 kg (196 lb), SpO2 97%. Well-appearing and in no acute distress. EYES: Sclerae are anicteric bilaterally. CARDIOVASCULAR: Rhythm is regular. ABDOMEN: The abdomen is nondistended. SKIN: No jaundice. IMAGING: MRI pancreas 01/17/2024: IMPRESSION: Stable pancreatic cystic focus. Likely sidebranch IPMN. No focal pancreatic enlargement, pathologic enhancement or suspicious lesion Stable hepatic cysts, and stable left hepatic lobe hemangioma. Renal cysts. No suspicious renal lesion. 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 -IgA by RUFINA only. -Baseline kappa 1,073.3 mg/L (06/23/2020). -Port placed 01/24/2025. -[place] light chain in the urine. Small increase in serum. No detectable monoclonal protein by immunofixation of the serum. This suggested progressive disease. - Reviewed lab work with her. Appears to be maintaining good response. Plan: - Continue acyclovir and dexamethasone. - Myeloma labs every 3 months. Due in May with 24 hour urine. - Decrease dexamethasone to 8 mg on the days she receives Darzalex only. - We will try tapering Benadryl as well once known how she does with lower dose dexamethasone. - Follow-up with palliative care. - Decrease hydration to twice weekly. Portions of this documentation were copied and pasted from my previous office visit note dated 02/22/2025 in order to provide a cohesive continuity of the history. The note has been reviewed and edited and updated as necessary. Jadon Styles DO documented in this encounterLuther[facility]05-30-2025 History of Present illness Narrative* Paris Ahuja RN - 03/08/2025 3:08 PM EDT Pt stated that after her last treatment she had sensitivity and pain feeling to her trunk, back and head normally this sensation just affects her arms and head. Shay Smiley CNP made aware Patient also asked to have future treatments done on Tuesday d/t transportation. She will keep next week as is since she sees Dr. Styles. documented in this encounterL[facility]05-28-2025 Telephone encounter Note * Telephone Encounter - Katie Vega LPN - 03/06/2025 11:57 AM EDT Left message for patient to contact office. Katie Vega LPN [facility] Miscellaneous Notes* Telephone Encounter - Katie Vega LPN - 03/06/2025 11:57 AM EDT Left message for patient to contact office. Katie Vega LPN * Telephone Encounter - Nichole Valladares - 03/06/2025 10:51 AM EDT Patient called this morning requesting to speak with someone to go over 03/01 lab results. She has questions/concerns with abnormal labs. * Telephone Encounter - Jo-Ann Gilbert RN - 03/05/2025 2:43 PM EDT Pt requesting a return call regarding her lab results. States she is always fatigued and just generally feels unwell. Denies fever, states she is eating and drinking. Currently here today for hydration. documented in this encounterL[facility]05-28-2025 Telephone encounter Note * Telephone Encounter - Nichole Valladares - 03/06/2025 10:51 AM EDT Patient called this morning requesting to speak with someone to go over 03/01 lab results. She has questions/concerns with abnormal labs. [facility] Work Phone: 1(960) 458-800205-27-2025 Telephone encounter Note* Telephone Encounter - Jo-Ann Gilbert RN - 03/05/2025 2:43 PM EDT Pt requesting a return call regarding her lab results. States she is always fatigued and just generally feels unwell. Denies fever, states she is eating and drinking. Currently here today for hydration. [facility] Tele[facility] encounter Note* Telephone Encounter - Katie Vega LPN - 02/25/2025 2:36 PM EDT Chemo nurse informed and notified patient. Katie Vega LPN [facility]19[facility] Miscellaneous Notes* Telephone Encounter - Katie Vega LPN - 02/25/2025 2:36 PM EDT Chemo nurse informed and notified patient. Katie Vega LPN * Telephone Encounter - Jadon Styles DO - 02/25/2025 2:21 PM EDT Yes, for the time being. Refill sent. Jadon Styles DO * Telephone Encounter - Nadya Birch RN - 02/25/2025 2:[address] Raquel Arenas is asking if you would like her to continue taking Singulair 10 mg tab? If so, she is requesting a refill. Prescription Refill Information The patient has been identified by name and date of : Yes Caregiver verified no other encounters exist for this prescription request: Yes Caregiver confirmed with patient/requestor that no other refills are due, in the near future, with this provider at this time: Yes Does the patient have a future office visit with this provider/department: Yes Requested Prescriptions Pending Prescriptions Disp Refills montelukast (SINGULAIR) 10 mg tablet 30 tablet 0 Sig: Take 1 tablet by mouth once daily. Nadya Birch RN February 25, 2025 2:05 PM documented in this encounterLuther[facility] Hospital05-19-2025 Telephone encounter Note * Telephone Encounter - Jadon Styles DO - 02/25/2025 2:21 PM EDT Yes, for the time being. Refill sent. Jadon Styles DO [facility] Telephone encounter Note* Telephone Encounter - Nadya Birch RN - 02/25/2025 2:[address] Raquel Arenas is asking if you would like her to continue taking Singulair 10 mg tab? If so, she is requesting a refill. Prescription Refill Information The patient has been identified by name and date of : Yes Caregiver verified no other encounters exist for this prescription request: Yes Caregiver confirmed with patient/requestor that no other refills are due, in the near future, with this provider at this time: Yes Does the patient have a future office visit with this provider/department: Yes Requested Prescriptions Pending Prescriptions Disp Refills montelukast (SINGULAIR) 10 mg tablet 30 tablet 0 Sig: Take 1 tablet by mouth once daily. Nadya Birch RN February 25, 2025 2:05 PM [facility] History of Present illness Narrative* Nadya Birch RN - 02/25/2025 1:53 PM EDT Hydration only today per Dr. Styles. documented in this encounterLuther[facility] Hospital05-16-2025 Note* Addendum Note - Jadon Styles DO - 02/22/2025 11:10 AM EDTAddended by: JADON STYLES on: 02/22/2025 11:10 AM Modules accepted: Orders [facility]05-16-20[facility] Miscellaneous Notes* Addendum Note - Jadon Styles DO - 02/22/2025 11:10 AM EDTAddended by: JADON STYLES on: 02/22/2025 11:10 AM Modules accepted: Orders documented in this encounterLuther[facility] Hospital05-16-2025 History of Present illness Narrative* Jadon Styles DO - 02/22/2025 10:26 AM EDT Oncologic problem(s): 1) Multiple myeloma. HISTORY OF PRESENT ILLNESS: Alvino Nina is a 59 year old female had back pain and MRI scan lumbar spine without contrast showed an acute mild compression fracture at superior end plate of L5.Spinal stenosis at L4 to L5. 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 She continued to have significant pain in her lower back which limited her movement and daily activity. She was on morphine, oxycodone and [place] which caused significant nausea A follow-up MRI scan of the thoracic spine on 06/09/2020 also showed acute moderate wedge compression fracture at T11 without obvious protrusion into the spinal canal. There were no obvious lytic lesions or marrow infiltrations in her thoracic or lumbar spine. Liver MRI in January 2023 noted pancreatic cyst, suggested yearly follow up x 5 years. Previous treatment: 1) RvD - lenalidomide, bortezomib, dexamethasone (CR) 2) ASCT 01/15/2021. 4) Lenalidomide maintenance. Stopped May 2024 secondary to ongoing nausea. 3) Botezomib every other week maintenance. Current therapy: 1) daratumumab 2) Zometa. Revlimid causes significant nausea. Presents for ongoing oncologic management. Interim history: Cough for about 2 weeks. Low grade temp off and on up to 99. Occasional white phlegm. Rx doxy. [facility] at [facility]. Told to change to levofloxacin. Nasal congestion. Sore throat. Right otalgia off and on. Hyperesthesia of the skin after each amanda administration. Nausea overall improved and more manageable with hydration, scopalamine and Zofran. PAST MEDICAL HISTORY Diagnosis Date Benign renal tumor unsure of malignancy Cancer of right kidney (HCC) Compression fracture of L5 vertebra (HCC) 05/2020 Compression fracture of T11 vertebra (HCC) 06/09/2020 acute moderate compression fx withou obvious protrusion into the spinal canal, seen on MRI Endometriosis Environmental allergies Generalized anxiety disorder Immunodeficiency ([facility]) 03/04/2021 Irregular heart beat Lytic lesion of bone on x-ray 06/25/2020 skull, bilateral humeri, bilateral femurs and possibly the left tibial plateau Multiple myeloma not having achieved remission ([facility]) 06/25/2020 Multiple myeloma not having achieved remission ([facility]) 06/25/2020 Osteopenia 06/25/2020 S/P autologous bone marrow transplantation ([facility]) 01/13/2021 Day: +13 Protocol(s): Auto 3422 1C Melphalan 200 Preparative regimen: melphalan Mobilization regimen: Neupogen Stem cell source: Stem cells CD34 cell dose (x10e6/kg): 5.14 Date of transplant: 01/15/2021 PAST SURGICAL HISTORY Procedure Laterality Date BACK SURGERY HX EGD 03/03/2023 FNA WITH IMAGING 09/12/2012 U/S FNA left thyroid nodule KIDNEY BIOPSY Right 2012 KYPHOPLASTY - LUMBAR 06/05/2020 L5 LAPS ABD PRTM&OMENTUM DX W/WO SPEC BR/WA SPX 1984 Laparoscopy LIG/TRNSXJ FLP TUBE ABDL/VAG APPR UNI/BI 2012 Tubal ligation, with ablation TONSILLECTOMY HX TUMOR REMOVAL (SPECIFY LOCATION) HX Right 2012 kidney Current Outpatient Medications Medication Sig levoFLOXacin (LEVAQUIN) 500 mg tablet Take 500 mg by mouth once daily. montelukast (SINGULAIR) 10 mg tablet Take 1 tablet by mouth once daily. albuterol HFA (PROVENTIL HFA, VENTOLIN HFA) 90 mcg/actuation inhaler Inhale 2 puffs as instructed every 4 hours as needed for wheezing/shortness of breath. lidocaine-prilocaine (EMLA) 2.5-2.5 % cream Apply 60 minutes before accessing port. LORazepam (ATIVAN) 0.5 mg Take 0.25 mg by mouth two times a day as needed. scopolamine (TRANSDERM-SCOP) patch 1.5 mg/72 hr (delivers 1 mg over 3 days) Apply 1 patch as directed every 72 hours. escitalopram oxalate (LEXAPRO) 10 mg tablet Take 20 mg by mouth daily at bedtime. acyclovir (ZOVIRAX) 400 mg tablet Take 1 tablet by mouth two times a day. omeprazole (PRILOSEC) 40 mg capsule Take 1 capsule by mouth once daily. doxycycline monohydrate (MONODOX) 100 mg capsule Take 1 capsule by mouth two times a day for 7 days. (Patient not taking: Reported on 02/22/2025) dexAMETHasone (DECADRON) 2 mg tablet Take 5 tablets by mouth once daily. the day after the first three doses of daratumumab. (Patient not taking: Reported on 02/22/2025) COLLAGEN MISC 1 Tablespoonful once daily. (Patient not taking: Reported on 02/22/2025) No current facility-administered medications for this visit. ALLERGIES Allergen Reactions Adhesive Tape (Mariam* Rash Penicillins Hives Other reaction(s): Unknown Vicodin [Hydrocodon* Intolerance Latex Rash Other reaction(s): rash FAMILY HISTORY Problem Relation Age of Onset Allergies Brother Hypertension Brother Allergies Sister Breast Cancer Sister Anesthesia Mother Thyroid Mother other (valve replacement) Mother Hypertension Sister Thyroid Sister No Known Problems Paternal Grandmother Ischemic Heart Disease Father Hypertension Father Lung Cancer Father other (CLL) Father Chronic lymphocytic leukemia Heart Maternal Grandmother Colon Cancer Maternal Grandfather Heart Attack Paternal Grandfather 50 Anxiety disorder Brother Hypertension Brother No Known Problems Daughter No Known Problems Son Social History Tobacco Use Smoking status: Former Current packs/day: 0.00 Types: Cigarettes Start date: 06/23/1992 Quit date: 06/23/1997 Years since quittin.6 Smokeless tobacco: Never Tobacco comments: quit smoking cigarettes in 1984 but only had smoked for few years approximately 1 pack/week Vaping Use Vaping status: Never Used Substance Use Topics Alcohol use: Not Currently Comment: socially Drug use: No PHYSICAL EXAM: Vitals: Blood pressure 122/83, pulse 104, temperature 36.7 C (98 F), temperature source Temporal, weight 88.9 kg (196 lb), SpO2 96%. Well-appearing and in no acute distress. EYES: Sclerae are anicteric bilaterally. No middle ear effusion on the right. A few coarse rhonchi and wheezes at the bases bilaterally. CARDIOVASCULAR: Rhythm is regular. ABDOMEN: The abdomen is nondistended. SKIN: No jaundice. IMAGING: MRI pancreas 01/17/2024: IMPRESSION: Stable pancreatic cystic focus. Likely sidebranch IPMN. No focal pancreatic enlargement, pathologic enhancement or suspicious lesion Stable hepatic cysts, and stable left hepatic lobe hemangioma. Renal cysts. No suspicious renal lesion. 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 Assessment: -IgA kappa MM. -IgA by RUFINA only. -Baseline kappa 1,073.3 mg/L (06/23/2020). -Port placed 01/24/2025. -[place] light chain in the urine. Small increase in serum. No detectable monoclonal protein by immunofixation of the serum. This does however suggest progressive disease. - I personally reviewed her chest x-ray done at [facility] on 02/20. No infiltrate. Radiologist did not observe an infiltrate. Discussed plan below. Plan: - Continue acyclovir and dexamethasone. - Hold on daratumumab today. IV fluids. - Rx tapering course of prednisone. - Continue using albuterol inhaler on a consistent basis. - Complete course of Levaquin. -Sputum culture. Portions of this documentation were copied and pasted from my previous office visit note dated 01/11/2025 in order to provide a cohesive continuity of the history. The note has been reviewed and editedand updated as necessary. Jadon Styles DO documented [facility]25 Telephone encounter Note * Telephone Encounter - Nichole Valladares - 02/21/2025 1:17 PM EDT Scheduled lab for 10:15, closest time to appointment. Left message informing patient to please arrive at 10 for labs(port). [facility] Work Phone: 1(590) 999-828505-15-2025 Miscellaneous Notes* Telephone Encounter - Nichole Valladares - 02/21/2025 1:17 PM EDT Scheduled lab for 10:15, closest time to appointment. Left message informing patient to please arrive at 10 for labs(port). * Telephone Encounter - Jo-Ann Gilbert RN - 02/21/2025 12:58 PM EDT Please make Port appt for pt. She will need CMP/CBC prior to OV and treatment tomorrow. Thank you. documented in this encounterLuther[facility] Hospital05-15-2025 Telephone encounter Note * Telephone Encounter - Jo-Ann Gilbert RN - 02/21/2025 12:58 PM EDT Please make Port appt for pt. She will need CMP/CBC prior to OV and treatment tomorrow. Thank you. [facility]05-15-[facility] Telephone encounter Note* Telephone Encounter - Svetlana Dunham - 02/21/2025 8:50 AM EDT This has been scheduled as directed. Svetlana Dunham [facility]05-15-[facility]25 Miscellaneous Notes* Telephone Encounter - Svetlana Dunham - 02/21/2025 8:50 AM EDT This has been scheduled as directed. Svetlana Dunham * Telephone Encounter - Katie Vega LPN - 02/20/2025 4:51 PM EDT PSS- patient accepted the OV with Dr. Styles on 02/22/2025 @ 10:20. She is aware of the date/time. Sending a separate note on the other patient who is currently scheduled in that slot. Katie Vega LPN * Telephone Encounter - Jadon Styles DO - 02/20/2025 4:39 PM EDT I could see her Tuesday at 10:20 AM if the existing patient that slot is willing to see one of the QUALITY ASSURANCE COACH's. Jadon Styles DO * Telephone Encounter - Nadya Birch RN - 02/20/2025 1:[address] Styles - next OV with Alvino is 03/15/25 - she would like to be seen sooner if that is possible -she is here every M/W/F for hydration. She would like to discuss side effects from oral chemo. documented in this encounterLuther[facility]05-14-[facility]25 Telephone encounter Note * Telephone Encounter - Katie Vega LPN - 02/20/2025 4:51 PM EDT PSS- patient accepted the OV with Dr. Styles on 02/22/2025 @ 10:20. She is aware of the date/time. Sending a separate note on the other patient who is currently scheduled in that slot. Katie Vega LPN [facility]05-14-[facility] Telephone encounter Note* Telephone Encounter - Jadon Styles DO - 02/20/2025 4:40 PM EDT Please see the other phone note from today. Jadon Styles DO [facility] Miscellaneous Notes* Telephone Encounter - Jadon Styles DO - 02/20/2025 4:40 PM EDT Please see the other phone note from today. Jadon Styles DO * Telephone Encounter - Nichole Valladares - 02/20/2025 4:15 PM EDT Patient called stating [facility] and they diagnosed her with pneumonia. She is asking if she should keep appointment on Tuesday. Please advise. documented in this encounterLuther[facility] Hospital05-14-2025 Telephone encounter Note * Telephone Encounter - Jadon Styles DO - 02/20/2025 4:39 PM EDT I could see her Tuesday at 10:20 AM if the existing patient that slot is willing to see one of the QUALITY ASSURANCE COACH's. Jadon Styles DO [facility] Telephone encounter Note* Telephone Encounter - Nichole Valladares - 02/20/2025 4:15 PM EDT Patient called stating [facility] treatment and they diagnosed her with pneumonia. She is asking if she should keep appointment on Tuesday. Please advise. [facility] Work Phone: [phone] 602-340105-14-2025 Telephone encounter Note* Telephone Encounter - Nadya Birch RN - 02/20/2025 1:[address] Styles - next OV with Alvino is 03/15/25 - she would like to be seen sooner if that is possible -she is here every M/W/F for hydration. She would like to discuss side effects from oral chemo. [facility] Telephone encounter Note* Telephone Encounter - Kimberly Zeng - 02/18/2025 12:12 PM EDT Cancelled appointment as requested Kimberly Zeng [facility]05-12[facility] Miscellaneous Notes* Telephone Encounter - Kimberly Zeng - 02/18/2025 12:12 PM EDT Cancelled appointment as requested Kimberly Zeng * Telephone Encounter - Katie Vega LPN - 02/18/2025 12:03 PM EDT Patient is aware and will go to [facility] ER. PSS- please cancel IV hydration for today. Katie Vega LPN * Telephone Encounter - Jadon Styles DO - 02/18/2025 11:41 AM EDT I gave her prescription for an antibiotic last week so if she is feeling worse she needs to go to the ER to be further evaluated. * Telephone Encounter - Donna Browne LPN - 02/18/2025 10:48 AM EDT Patient is scheduled for hydration (upstairs) today at 2:00 asking if it's OK for her to come into office. She calls stating she feels worse today then she did Tuesday. Coughing, feels weak, poor appetite. Deep cough with that is productive. She feels like the coughing seems to be a bit worse than it wason Tuesday. Sore throat for a few days as well. No fevers over the weekend. She is trying to keep hydrating, keeping a drink with her through the day, but does not have much of an appetite. Has not eaten yet today, she did drink a boost this morning when she took her morning meds. Advised pt for now go ahead and plan to come in, can wear a mask. Donna Browne LPN documented in this encounterLutheran Hospital05-12-2025 Telephone encounter Note * Telephone Encounter - Katie Vega LPN - 02/18/2025 12:03 PM EDT Patient is aware and will go to [facility] ER. PSS- please cancel IV hydration for today. Katie Vega LPN [facility] Telephone encounter Note* Telephone Encounter - Jadon Styles DO - 02/18/2025 11:41 AM EDT I gave her prescription for an antibiotic last week so if she is feeling worse she needs to go to the ER to be further evaluated. [facility] Telephone encounter Note* Telephone Encounter - Donna Browne LPN - 02/18/2025 10:48 AM EDT Patient is scheduled for hydration (upstairs) today at 2:00 asking if it's OK for her to come into office. She calls stating she feels worse today then she did Tuesday. Coughing, feels weak, poor appetite. Deep cough with that is productive. She feels like the coughing seems to be a bit worse than it wason Tuesday. Sore throat for a few days as well. No fevers over the weekend. She is trying to keep hydrating, keeping a drink with her through the day, but does not have much of an appetite. Has not eaten yet today, she did drink a boost this morning when she took her morning meds. Advised pt for now go ahead and plan to come in, can wear a mask. Donna Browne LPN [facility]-12-[facility] Telephone encounter Note* Telephone Encounter - Katie Vega LPN - 02/18/2025 8:06 AM EDT Appointment notes updated. Zometa on 02/22/2025. Katie Vega LPN [facility]05-12-[facility]25 Miscellaneous Notes* Telephone Encounter - Katie Vega LPN - 02/18/2025 8:06 AM EDT Appointment notes updated. Zometa on 02/22/2025. Katie Vega LPN * Telephone Encounter - Jadno Styles DO - 02/17/2025 3:00 PM EDT Can resume q 3 month Zometa with first dose when next here for durvalumab. Jadon Styles DO * Telephone Encounter - Donna Browne LPN - 02/15/2025 4:28 PM EDT Dental form received , pt clear of active disease or infection. Scanned into chart. Donna Browne LPN documented in this encounterLutheran Hospital05-11-2025 Telephone encounter Note * Telephone Encounter - Jadon Styles DO - 02/17/2025 3:00 PM EDT Can resume q 3 month Zometa with first dose when next here for durvalumab. Jadon Styles DO [facility]05-09-2025 Telephone encounter Note* Telephone Encounter - Donna Browne LPN - 02/15/2025 4:28 PM EDT Dental form received , pt clear of active disease or infection. Scanned into chart. Donna Browne LPN [facility]05-07-[facility] History of Present illness Narrative* Shannan Stevens RN - 02/13/2025 12:59 PM EDT Patient states that she is having myalgias from head to toes. Discomfort in everything she does along with a headache 10/10 last night. Fatigue remains 10/10 but feels better today than yesterday. Janell updated, no orders received. Shannan Stevens RN documented in this encounterLutheran Hospital05-02-2025 History of Present illness Narrative* Shannan Stevens RN - 02/08/2025 2:22 PM EDT Pt states that her dentist told her she needs a root canal but she is not going to get one. States that her tooth does not hurt or other issues so she is not going to. Dr Styles updated and orders received to hold zometa today and get dental clearance prior to giving. Dental clearance form given to patient and agrees with the plan. Shannan Stevens RN documented in this encounterLutheran Hospital04-22-2025 Telephone encounter Note * Telephone Encounter - Heather Cuevas RN - 01/29/2025 9:28 AM EDT CYCLE 1/DAY 1 POST TREATMENT CALL Today's date: January 29, 2025 Treatment Regimen: Darzalex C1D1 Date: 01/25/25 Called patient to follow-up on symptom management. Spoke with patient SYMPTOM ASSESSMENT Neuro: None CV/Resp: None GI/: Nausea: yesterday she was very nauseous. Integument: None Pain: Patient stated she always has back pain, this is not a new pain. Fever: No Chills: No Anxiety: more than I want it to be. Patient feels anxious due to the reaction that she had last week. Takes lorazepam throughout the day PRN and Lexapro. Patient has an appointment with her counselor on . Discussed doing some self care tips. Any new referrals needed? No Reinforced CURRENT treatment education based on current and anticipated symptoms. Discussed port/line care and patient verbalizes understanding: Yes Patient instructed to contact office or after hours Hematology/Oncology fellow for: temperature >= 100.4; questions or concerns. Patient verbalized understanding of when to seek medical attention and after hours number protocol. Heather Cuveas RN [facility]04-22-2025 Miscellaneous Notes* Telephone Encounter - Heather Cuevas RN - 01/29/2025 9:28 AM EDT CYCLE 1/DAY 1 POST TREATMENT CALL Today's date: January 29, 2025 Treatment Regimen: Darzalex C1D1 Date: 01/25/25 Called patient to follow-up on symptom management. Spoke with patient SYMPTOM ASSESSMENT Neuro: None CV/Resp: None GI/: Nausea: yesterday she was very nauseous. Integument: None Pain: Patient stated she always has back pain, this is not a new pain. Fever: No Chills: No Anxiety: more than I want it to be. Patient feels anxious due to the reaction that she had last week. Takes lorazepam throughout the day PRN and Lexapro. Patient has an appointment with her counselor on . Discussed doing some self care tips. Any new referrals needed? No Reinforced CURRENT treatment education based on current and anticipated symptoms. Discussed port/line care and patient verbalizes understanding: Yes Patient instructed to contact office or after hours Hematology/Oncology fellow for: temperature >= 100.4; questions or concerns. Patient verbalized understanding of when to seek medical attention and after hours number protocol. Heather Cuevas RN documented in this encounterLutheran Hospital04-21-2025 Telephone encounter Note * Telephone Encounter - Kimberly Zeng - 01/28/2025 8:21 AM EDT Scheduled as directed below Kimberly Zeng [place] [address]-21-2025 Miscellaneous Notes* Telephone Encounter - Kimberly Zeng - 01/28/2025 8:21 AM EDT Scheduled as directed below Kimberly Zeng * Telephone Encounter - Nichole Valladares - 01/26/2025 10:35 AM EDT Patient can be scheduled at 10:30 in treatment room 3. Schedule for 6 hours so it takes up the fulltime slot. * Telephone Encounter - Kimberly Zeng - 01/25/2025 4:31 PM EDT Treatment rooms are full 01/31 and 02/01 please advise what time to schedule patient Kimberly Zeng * Telephone Encounter - Heather Cuevas RN - 01/25/2025 4:[address] Styles- patient had a reaction to darzalex. Do you want to add singular and zyrtec in for futuredoses? PSS- patients next injection will need to be scheduled at an earlier time to allow for another 4 hour observation. Thank you. Heather Cuevas RN * Telephone Encounter - Srinivas Rojo RN - 01/25/2025 1:[address] Styles, Pt was here today for start darzalex. Pt gets IVF at [facility] 3x/week and is wanting to know if she can switch to this location. Per pt, it was ordered by palliative care after her ED visit in December for uncontrolled vomiting due to revlimid. Please advise if OK to switch to this location sopt can be scheduled. Current order is through palliative care just . Thank you, Srinivas RN documented in this encounterLutheran Hospital04-19-2025 Telephone encounter Note * Telephone Encounter - Nichole Valladares - 01/26/2025 10:35 AM EDT Patient can be scheduled at 10:30 in treatment room 3. Schedule for 6 hours so it takes up the fulltime slot. [facility] Work Phone: [phone] 256-557904-18-2025 Telephone encounter Note* Telephone Encounter - Kimberly Zeng - 01/25/2025 4:31 PM EDT Treatment rooms are full 01/31 and 02/01 please advise what time to schedule patient Kimberly Karri [facility]04-18-2025 Telephone encounter Note* Telephone Encounter - Heather Cuevas RN - 01/25/2025 4:[address] Styles- patient had a reaction to darzalex. Do you want to add singular and zyrtec in for futuredoses? PSS- patients next injection will need to be scheduled at an earlier time to allow for another 4 hour observation. Thank you. Heather Cuevas RN [facility]04-18-[facility]25 History of Present illness Narrative* Srinivas oRjo RN - 01/25/2025 3:42 PM EDT Pt's vitals rechecked at 4th hr post darzalex. Vitals WNL except for HR in 110s. No other symptoms but pt states I can feel my heart beating fast. Shay CASPER present at chairside shortly after. Pt stayed for extra 30 mins to monitor vitals. See doc flowsheet. No increase in HR, staying in the 110s. OK to discharge at this time per Shay. Pt is aware there is a possibility she has to stay for 4 hours again next treatment. Also, pt had a question regarding her acyclovir and PO dex at home. Verified with Heather SMALL, pt is to take acyclovir starting today and continue everyday for the duration of her treatment, and to take PO dexamethasone 10mg on day 2, which is tomorrow. Pt verbalized unde rstanding. 1545 Pt notified staff that she is on her way home when she started wheezing, no other symptoms reported. Shay notified and pt advised to go to the closest ER. Pt states she is close to [facility]. Report called to ED RN by this nurse. documented in this encounterLutheran Hospital04-18-2025 Telephone encounter Note * Telephone Encounter - Srinivas Rojo RN - 01/25/2025 1:[address] Styles, Pt was here today for start darzalex. Pt gets IVF at [facility] 3x/week and is wanting to know if she can switch to this location. Per pt, it was ordered by palliative care after her ED visit in December for uncontrolled vomiting due to revlimid. Please advise if OK to switch to this location sopt can be scheduled. Current order is through palliative care just . Thank you, Srinivas RN [facility] Work Phone: [phone] 401-240904-18-2025 Telephone encounter Note* Telephone Encounter - Heather Cuevas RN - 01/25/2025 12:40 PM EDT Patient is requesting emla cream. Order pended. Thank you. Heather Cuevas RN [facility]04-18-2025 Miscellaneous Notes* Telephone Encounter - Heather Cuevas RN - 01/25/2025 12:40 PM EDT Patient is requesting emla cream. Order pended. Thank you. Heather Cuevas RN documented in this encounterLutheran Hospital04-14-2025 Telephone encounter Note * Telephone Encounter - Elaine Betancur - 01/21/2025 1:50 PM EDT Patient has been rescheduled to the below requested time Elaine Benjamin Pss [facility]04-14-2025 Miscellaneous Notes* Telephone Encounter - Elaine Betancur - 01/21/2025 1:50 PM EDT Patient has been rescheduled to the below requested time Elaine King * Telephone Encounter - Jo-Ann Gilbert RN - 01/21/2025 11:24 AM EDT Spoke to pt. She will be in at 9:30. Please change schedule accordingly. Thank you! * Telephone Encounter - Heather Cuevas RN - 01/21/2025 10:14 AM EDT PSS- spoke to infusion nurse. Patient is scheduled to start darzalex at 1:30 on Tuesday, 01/25. Per infusion nurse, patient should be here no later than 9:30 am due to pre-meds and then the 4 hour observation after her treatment. Please contact patient to reschedule her treatment to an earlier time. Thank you. Heather Cuevas RN documented in this encounterLutheran Hospital04-14-2025 Telephone encounter Note * Telephone Encounter - Jo-Ann Gilbert RN - 01/21/2025 11:24 AM EDT Spoke to pt. She will be in at 9:30. Please change schedule accordingly. Thank you! [facility]-14-[facility] Telephone encounter Note* Telephone Encounter - Heather Cuevas RN - 01/21/2025 10:14 AM EDT PSS- spoke to infusion nurse. Patient is scheduled to start darzalex at 1:30 on Tuesday, 01/25. Per infusion nurse, patient should be here no later than 9:30 am due to pre-meds and then the 4 hour observation after her treatment. Please contact patient to reschedule her treatment to an earlier time. Thank you. Heather Cuevas RN [facility]04-11-2025 Consult note [facility] Medical Records Department [address] [place] [address] Anesthesia Postop Eval II 01/18/25 1534 MR#: [id number] Acct: [id number] Name: ALVINO NINA Rep #:[id number] : 1965 59 From: Je Obrien MD PCP: Elvi Llanes PA-C Status:REG S DC Y Race: C Location: [place] [address]- Anesthesia Postop Eval I Sum Postop Eval Completion status Anesthesia document: Postop Eval 1 completed: Yes Anesthesia Postop Eval I Summary Anesthesia Postop Eval I Summary: Anesthesia Postop Eval I: Assessment Summary Airway patent Yes 01/18/25 15:34 [email or web address] Spontaneous unlabored Yes 01/18/25 15:34 [email or web address] respirations Mental status Awake,Calm 01/18/25 15:34 [email or web address] nausea No 01/18/25 15:34 [email or web address] Vomiting No 01/18/25 15:34 [email or web address] Anesthesia Postop Eval I: Fluid Summary Crystalloid volume administer 30 01/18/25 15:34 [email or web address] (ml) Colloids volume administered ( ml) Blood Product volume administered (ml) Total IV fluid infused 30 01/18/25 15:34 [email or web address] Anesthesia Postop Eval I: Summary Notes Anesthesia Complication No 01/18/25 15:34 [email or web address] Anesthesia Complication Comment: Post-operative progress note Anesthesia: Postop Eval II Evaluation Mental status: Awake Pain Level: 0 nausea: No Vomiting: No 01/18/25 1534 > Date _ Je Obrien MD Cosigner Signature: Date CC: ~ Signed [facility]04-11-2025 Consult note Author Je sangeeta [facility] Note Date/Time January 18, 2025 1:5 4pm [facility] Medical Records Department [address] [place] [address] Pre-Anesthesia Evaluation 01/18/25 1354 MR#: [id number] Acct: [id number] Name: ALVINO NINA Rep #:[id number] : 1965 59 From: Je Obrien MD PCP: Elvi Llanes PA-C Status:REG S DC Y Race: C Location: [place] [address] ASA Classification* ASA Classification ASA Classification: 2 Assessment & Plan Anesthesia* Anesthesia Assessment Anesthesia Assessment: Discussed sedation and/or anesthesia options, risks, benefits, and alternatives with patient/parents/legal guardian/POA. Questions invited. The patient/parents/legal guardian/POA seems to understand and agrees to proceedwith anesthesia plan. Reviewed the physical assessment, medical history, allergy history and patient home medications list prior to surgery/procedure/anesthetic and documented any changes. Performed airway and anesthesia risk assessments. Anesthesia Type Anesthesia Type: MAC Anesthesia Focused Assessment* Airway Assessment Mouth opens: >3 cm Mallampati Score: II Focused Labs Anesthesia Preop lab: CBC WBC 6.6 K/mm3 (4.4-11.0) 12/23/24 06:15 12/23/24 RBC 4.02 M/mm3 (4.2-5.4) L 12/23/24 06:15 12/23/24 Hgb 12.3 g/dL (12.0-15.0) 12/23/24 06:15 12/23/24 Hct 35.6 % (37-47) L 12/23/24 06:15 12/23/24 Plt Count 220 K/mm3 (150-450) 12/23/24 06:15 12/23/24 CHEMISTRY Potassium 3.9 mmol/L (3.3-5.1) 12/23/24 06:15 12/23/24 Sodium 142 mmol/L (133-145) 12/23/24 06:15 12/23/24 Magnesium 2.3 mg/dL (1.5-2.2) H 12/20/24 06:28 12/20/24 BUN 14 mg/dL (4-19) 12/23/24 06:15 12/23/24 Creatinine 0.88 mg/dL (0.70-1.20) 12/23/24 06:15 12/23/24 Glucose 84 mg/dL (70-99) 12/23/24 06:15 12/23/24 POC Glucose 135 mg/dL (70-110) H 07/14/20 21:43 07/14/20 TSH 1.30 uIU/mL (0.358-3.74) 04/27/17 09:46 COAG Pre-Assessment Diagnosis/Proposed Procedure Planned Operative Procedure(s): EGD Anesthesia History Anesthesia History - commercial credit specialist: Anesthesia History - commercial credit specialist Hx Hospitalization Yes 01/14/25 10:12 Any Problems With Anesthesia No 01/14/25 10:12 Cholinesterase deficiency No 01/14/25 10:12 You/Your Family Experience No 01/14/25 10:12 fever (hyperthermia) with Relationship Recent Exposure to Contagious No 06/08/22 08:12 Disease Does patient have nerve No 01/14/25 10:12 stimulator Patient instructed to have device shut off --Does patient have Pacemaker or ICD? When Was Last Pacemaker Check QUESTION #4 FULL TEXT: You/Your Family Experience fever (hyperthermia) with Anesthesia Last Oral Intake Last Oral intake: Last Oral Intake NPO since Meds taken in AM with sips of water? Meds patient instructed to take am of surgery PONV PONV - commercial credit specialist: PONV - commercial credit specialist Female Yes 01/14/25 10:12 HX of Motion Sickness No 01/14/25 10:12 HX of N/V After Surgery No 01/14/25 10:12 Non-Smoker Yes 01/14/25 10:12 Duration of Surgery greater No 01/14/25 10:12 than 60 minutes Number of Risk Factors 2 01/14/25 10:12 PONV Score Moderate Risk 01/14/25 10:12 Height & Weight Height & Weight: Anesthesia: Height & Weight Height 5 ft 1 in 01/18/25 12:02 Respiratory Assessment Respiratory Assessment - commercial credit specialist: Respiratory Tract Infection Hx - commercial credit specialist Hx Respiratory Tract Infection No 01/14/25 10:12 STOP Sleep Apnea STOP Sleep Apnea - commercial credit specialist: STOP Sleep Apnea - commercial credit specialist Hx Hypertension No 01/18/25 12:02 Hx Sleep Apnea No 01/14/25 10:12 CPAP BIPAP Do you snore loudly (louder No 01/14/25 10:12 than talking or can be heard Do you often feel tired/ No 01/14/25 10:12 fatigued/ sleepy during daytime? Has anyone observed you stop No 01/14/25 10:12 breathing during sleep? STOP Results Negative 01/14/25 10:12 QUESTION #5 FULL TEXT : Do you snore loudly (louder than talking or can be heard through closed doors)? 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 Specify any problems Hx of Preganancy in last 3 No 01/14/25 10:12 Months Nurse Filling Out Transfusion VCHRISTIN 01/14/25 10:12 & Questions: Date: 01/14/25 01/14/25 10:12 Time: 10:14 01/14/25 10:12 Patient unable to answer at this time (ie. confused, unrespo /Reproduction History /Reproductive History - commercial credit specialist: /Reproductive Hx- commercial credit specialist Hx Now Gestational Age (in weeks): EDC: Hx Hx Para Hx Section SAB PFSH Medical History Post-menopausal Cancer Depression Anxiety Walker as ambulation aid Anemia Back pain Injury of head and neck Gastric reflux Leg cramps 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 health care History of pneumococcal infection Headache, migraine Carpal tunnel syndrome history of bone fracture Back problem Arthritis Seasonal allergies Endometriosis Screening for intestinal cancer Iron deficiency anemia Renal cell cancer Former tobacco use Obesity Pancreatitis URI, acute History of nausea and vomiting History of abdominal pain Home Medications ?Medication ?Instructions ?Recorded ?Last Taken ?Type scopolamine base 1 mg over 3 days 1 patch topical Q72H 12/18/24 Unknown History transdermal patch escitalopram oxalate 10 mg tablet 10 mg PO DAILY 01/14 Unknown History omeprazole 40 mg capsule,delayed 40 mg PO DAILY Unknown History release ondansetron HCl 8 mg tablet 4 mg PO 4X/DAY PRN PRN rachel sea 01/14/25 Unknown History Allergy/AdvReac Type Severity Reaction Status Date / Time latex Allergy Mild rash Verified 01/14/25 13:11 Penicillins Allergy Unknown Verified 01/14/25 13:11 adhesive tape AdvReac Rash Verified 01/14/25 13:11 Family History Brother Asthma Malignant hyperthermia due to anesthesia Hypertension Grandfather Colon cancer Mother Heart disease Thyroid disorder COPD (chronic obstructive pulmonary disease) Arthritis Anemia Sister Breast cancer Hypertension Thyroid disorder Hypothyroid Arthritis Father Bleeding disorder Cancer Lung Myelodysplastic syndrome Chronic lymphocytic leukemia Alcohol abuse Aunt Myocardial infarction Surgical History History of esophagogastroduodenoscopy (EGD) History of back surgery s/p kidney cancer Status post endometrial ablation Social History household members: children Smoking Status: Former smoker alcohol intake: current alcohol intake frequency: holidays/special occasions only what type of physical activity do you participate in: walking, bicycling, aerobics and weight training do you feel safe at home: Yes Review of Systems (Anesthesia) ROS Narrative System reviewed and no additional complaints, except as documented. 01/18/25 1354 <Electronically signed by Je Obrien MD > Date _ Je Obrien MD Cosigner Signature: Date CC: ~ Signed [facility] Work Phone: 1(460) 256-778104-11-2025 Consult note [facility] Medical Records Department [address] [place] [address] Anesthesia Postop Eval I 01/18/25 1533 MR#: [id number] Acct: [id number] Name: ALVINO NINA Rep #:[id number] : 1965 59 From: Dae Douglas PCP: Elvi Llanes PA-C Status:REG S DC Y Race: C Location: [place] [address] Anesthesia: Postop Eval I Current Vital Signs Temperature: 97.7 F Pulse Rate: 84 Blood Pressure: 122/81 Respiratory Rate: 16 Pulse Ox: 95 Oxygen Delivery Method: Room Air Assessment Airway patent: Yes Spontaneous unlabored respirations: Yes Mental status: Awake and Calm nausea: No Vomiting: No Anesthesia Complication: No Fluid Hydration Crystalloid volume administer (ml): 30 Total IV fluid infused: 30 Progress Note Anesthesia document: Postop Eval 1 completed: Yes 01/18/25 1534 > Date _ Dae Lomax Signature: Date CC: ~ Signed [facility]04-11-2025 Procedure note [facility] Medical Records Department [address] [place] [address] EGD Report MR#: [id number] Acct: [id number] Name: ALVINO NINA Rep #:[id number] : 1965 59 From: Celso Hernández DO PCP: Elvi Llanes PA-C Status:REG S DC Patient Name: Alvino Nina Procedure Date: 01/18/2025 2:58 PM Date of : 1965 Age: 59 Procedure: Upper GI endoscopy Indications: Epigastric abdominal pain, Heartburn Providers: Celso Hernández DO Medicines: Monitored Anesthesia Care Patient Profile: This is a 59 year old female. Refer to note in patient chart for documentation of history and physical. Patient has symptoms of chronic epigastric abdominal pain, chronic dyspepsia, chronic heartburn and chronic nausea. Complications: No immediate complications. Procedure: Pre-Anesthesia Assessment: - Prior to the procedure, a History and Physical was performed, and patient medications and allergies were reviewed. The patient is competent. The risks and benefits of the procedure and the sedation options and risks were discussed with the patient. All questions were answered and informed consent was obtained. Patient identification and proposed procedure were verified by the physician in the pre-procedure area. Mental Status Examination: alert and oriented. Airway Examination: normal oropharyngeal airway and neck mobility. Respiratory Examination: clear to auscultation. CV Examination: normal. Prophylactic Antibiotics: The patient does not require prophylactic antibiotics. Prior Anticoagulants: The patient has taken no anticoagulant or antiplatelet agents except for NSAID medication. ASA Grade Assessment: II - A patient with mild systemic disease. After reviewing the risks and benefits, the patient was deemed in satisfactory condition to undergo the procedure. The anesthesia plan was to use monitored anesthesia care (MAC). Immediately prior to administration of medications, the patient was re-assessed for adequacy to receive sedatives. The heart rate, respiratory rate, oxygen saturations, blood pressure, adequacy of pulmonary ventilation, and response to care were monitored throughout the procedure. The physical status of the patient was re-assessed after the procedure. After obtaining informed consent, the endoscope was passed under direct vision. Throughout the procedure, the patient's blood pressure, pulse, and oxygen saturations were monitored continuously. The Endoscope was introduced through the mouth, and advanced to the second part of duodenum. The upper GI endoscopy was accomplished without difficulty. The patient tolerated the procedure well. Scope In: 3:14:00 PM Scope Out: 3:19:50 PM Total Procedure Duration Time 0 hours 5 minutes 50 seconds Findings: LA Grade A (one or more mucosal breaks less than 5 mm, not extending between tops of 2 mucosal folds) esophagitis with no bleeding was found 39 to 40 cm from the incisors. Biopsies were taken with a cold forceps for histology. Verification of patient identification for the specimen was done. Estimated blood loss was minimal. Segmental mild inflammation characterized by erythema was found in the gastric body. Biopsies were taken with a cold forceps for histology. Verification of patient identification for the specimen was done. Biopsies were taken with a cold forceps for Helicobacter pylori testing. Verification of patient identification for the specimen was done. Estimated blood loss was minimal. Patchy mild inflammation characterized by erythema and granularity was found in the entire duodenum. Biopsies for histology were taken with a cold forceps for evaluation of celiac disease. Biopsies were taken with a cold forceps for histology. Verification of patient identification for the specimen was done. Estimated blood loss was minimal. Impression: - LA Grade A reflux esophagitis with no bleeding. Biopsied. - Bile gastritis. Biopsied. - Chronic duodenitis. Biopsied. Recommendation: - Discharge patient to home. - Resume previous diet. - Continue present medications. - Await pathology results. Procedure Code(s): --- Professional --- 02607, Esophagogastroduodenoscopy, flexible, transoral; with biopsy, single or multiple CPT copyright 2021 [employer]. All rights reserved. The codes documented in this report are preliminary and upon air table operator review may be revised to meet current compliance requirements. Celso Hernández DO 01/18/2025 3:25:54 PM This report has been signed electronically. Number of Addenda: 0 Note Initiated On: 01/18/2025 2:58 PM 01/18/25 1526 Date _ Celso Hernández DO Cosigner Signature: Date (if indicated) CC: NAEEM Llanes; No Primary Care Physician; Celso Hernández DO ~ Date Dictated: 01/18/25 1458 Date Transcribed: Franchise Consultant: RF Signed [facility]04-11-2025 Procedure note [facility] Medical Records Department [address] [place] [address] Operative Report - CC Letter MR#: [id number] Acct: [id number] Name: NUPUR,ALVINO FREIRE Rep #:[id number] : 1965 59 From: Celso Hernández DO PCP: Elvi Llanes PA-C Status:REG S DC 01/18/2025 No Primary Care Physician Re : Upper GI endoscopy procedure for Alvino Nina Dear Care Physician This procedure was performed on Saturday, January 18, 2025. My impressions and recommendations are as follows: Impressions : - LA Grade A reflux esophagitis with no bleeding. Biopsied. - Bile gastritis. Biopsied. - Chronic duodenitis. Biopsied. Recommendations : - Discharge patient to home. - Resume previous diet. - Continue present medications. - Await pathology results. My findings are described in the full procedure note, which is enclosed. If I can be of further assistance, please feel free to contact me at . Sincerely, Celso Hernández DO 01/18/2025 3:25:54 PM This report has been signed electronically. 01/18/25 1526 Date _ Celso Sanchez Signature: Date (if indicated) CC: NAEEM Llanes; No Primary Care Physician; Celso Hernández DO ~ Date Dictated: 01/18/25 1458 Date Transcribed: Franchise Consultant: RF Signed [facility]04-11-2025 Evaluation note* Diagnosis Onset Date Resolution Status Admit Date Intractable nausea acute January 18, 2025 1:21pm Vomiting acute January 18 1:21pm Acute bronchitis acute February 2:56pm History of cancer acute February 2:56pm [facility] Work Phone: 1(948) 301-821004-11-2025 History and physical note [facility] Medical Records Department [address] [place] [address] History & Physical Exam 01/18/251453 MR#: [id number] Acct: [id number] Name: NUPURALVINO WHITMORE Rep #:[id number] : 1965 59 From: Celso Hernández DO PCP: Elvi Llanes PA-C Status:REG S DC Location: [place] [address] HPI - General General Date of Admission: 01/18/25 Date of Service: 01/18/25 Chief Complaint: Intractable nausea vomiting HPI Narrative ALVINO JACKSONNUPUR, is a 59 F who presentsAURA NUPUR, is a 59 F who presents to the office today for f/u. [facility] admission12.18.24-12.23.24 with intractable n/v. Hx of multiple myeloma currently getting chemotherapy for 3 weeks and then one week off. Pt using medical marijuana for n/v. One day prior to symptoms onset she took off her fentanyl patch. GES and Abd/pelvis CT were normal. Ultimately discharged OV 12.26.24 Pt continues to have nausea. Her vomiting has subsided while being onzofran, haldol and reglan. She does not feel like this is related to her chemotherapy. She feels awful during her off weeks as well. She does use medicalmarijuana on occasion for nausea but it does not always help. She e ndorses a family hx of gallbladder issues. She did have a gallbladder US done at [place] about a month ago but it was not a good study due to bowel gas. SHe has had a recent HIDA scan with a 45% EF.Last EGD was about 5 years ago. She has not beenable to eat much for the past couple of weeks. She is able to keep cottage cheese, yogurt and grilled chicken done. Pt also has complaints of worseningdiarrhea over the past few weeks. Stool testing in the hospital was positive PCRfor c.dif and antigen positive. [facility] Medical History Post-menopausal Cancer Depression Anxiety Walker as ambulation aid Anemia Back pain Injury of head and neck Gastric reflux Leg cramps 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 health care History of pneumococcal infection Headache, migraine Carpal tunnel syndrome history of bone fracture Back problem Arthritis Seasonal allergies Endometriosis Screening for intestinal cancer Iron deficiency anemia Renal cell cancer Former tobacco use Obesity Pancreatitis URI, acute History of nausea and vomiting History of abdominal pain Home Medications ?Medication ?Instructions ?Recorded ?Last Taken ?Type scopolamine base 1 mg over 3 days 1 patch topical Q72H 12/18/24 Unknown History transdermal patch escitalopram oxalate 10 mg tablet 10 mg PO DAILY 01/14 Unknown History omeprazole 40 mg capsule,delayed 40 mg PO DAILY Unknown History release ondansetron HCl 8 mg tablet 4 mg PO 4X/DAY PRN PRN rachel sea 01/14/25 Unknown History Allergy/AdvReac Type Severity Reaction Status Date / Time latex Allergy Mild rash Verified 01/14/25 13:11 Penicillins Allergy Unknown Verified 01/14/25 13:11 adhesive tape AdvReac Rash Verified 01/14/25 13:11 Family History Brother Asthma Malignant hyperthermia due to anesthesia Hypertension Grandfather Colon cancer Mother Heart disease Thyroid disorder COPD (chronic obstructive pulmonary disease) Arthritis Anemia Sister Breast cancer Hypertension Thyroid disorder Hypothyroid Arthritis Father Bleeding disorder Cancer Lung Myelodysplastic syndrome Chronic lymphocytic leukemia Alcohol abuse Aunt Myocardial infarction Surgical History History of esophagogastroduodenoscopy (EGD) History of back surgery s/p kidney cancer Status post endometrial ablation Social History household members: children Smoking Status: Former smoker alcohol intake: current alcohol intake frequency: holidays/special occasions only what type of physical activity do you participate in: walking, bicycling, aerobics and weight training do you feel safe at home: Yes ROS Constitutional Constitutional: Denies fatigue, fever(s), poor appetite, weight gain or weight loss Gastrointestinal Gastrointestinal: Denies belching, bloating, change in bowel habits, change in stool character, chewing difficulty, coffee ground emesis, constipation, cramping, diarrhea, dyspepsia, dysphagia, earlysatiety, excessive flatus, fecalincontinence, heartburn, hematemesis, hematochezia, hemorrhoids, loose stools, melena, nausea, odynophagia, rectal bleeding, tenesmus, vomiting or weight changes Vital Signs Vital Signs Vital Signs: 01/18/25 13:51 01/18/25 13:51 Temperature 98.9 F Temperature Source Temporal Pulse Rate 70 Respiratory Rate 16 Respiratory Pattern Normal Blood Pressure 165/97 H Blood Pressure Mean 119 Blood Pressure Source Monitor Blood Pressure Position Sitting Blood Pressure Location Right Arm Pulse Ox 100 Oxygen Delivery Method Room Air Weight Weight: 199 lb 15.348 oz Body Mass Index (BMI) 37.8 Physical Exam Const alert, oriented x3, no apparent distress and healthy appearing General Appearance: cooperative GI normal to inspection, nondistended, normoactive bowel sounds, soft to palpation,non-tender and non-distended Percussion: normal to percussion Rectal Exam: deferred Assessment & Plan Assessment/Plan (1) Intractable nausea: (2) Vomiting: PLAN: Assessment and Plan Assessment and Plan (1) Nausea and vomiting: Plan: This is a 59 yo female pt here today for hospital f/u for n/v. Pt has a PMHx of multiple myeloma onoral chemotherapy for weeks and off for one. Pt has been dealing with nausea since starting chemo but it has become worse. She feels worse on her weeks off and does not believe its related to chemo. She has concern for her gallbladder and did have an US done at [place] about one month ago that wasnormal but a poor study due to bowel gas. She will have a repeat tofurther rule gallbladder etiology out. Pt will also undergo EGD to assess her upper GI tract for inflammation. She will continue reglan and zofran. Pt had a positive c.dif PCR and positive antigen. However since she is immunocompromised and has diarrhea will treat with vancomycin 125 mg every 6 hours for 10 days. -EGD -Continue reglan and zofran -Gallbladder US -Vancomycin 125 mg every 6 hours for 10 days (2) Intractable nausea: Status: Acute Orders: Orders Gallbladder Today R11.0 - Nausea Medications: New vancomycin 125 mg PO Q6H 40 caps 1RF 10 days Changed From metoclopramide HCl 5 mg PO Q6H 14 days 56 tabs 0RF To metoclopramide HCl 5 mg PO Q6H 224 tabs 0RF 8 weeks Refilled haloperidol 0.5 mg (1/2 x 1 mg) PO TID 21 tabs 0RF 14 days 01/18/25 1456 Cosigner Signature (if applicable): CC: NAEEM Llanes; Celso Friend, DO~ Signed [facility]04[facility]11[facility] Consult note [facility] Medical Records Department [address] [place] [address] Pre-Anesthesia Evaluation 01/18/25 1354 MR#: [id number] Acct: [id number] Name: ALVINO NINA Rep #:[id number] : 1965 59 From: Je Obrien MD PCP: Elvi Llanes PA-C Status:REG S DC Y Race: C Location: [place] [id number] ASA Classification* ASA Classification ASA Classification: 2 Assessment & Plan Anesthesia* Anesthesia Assessment Anesthesia Assessment: Discussed sedation and/or anesthesia options, risks, benefits, and alternatives with patient/parents/legal guardian/POA. Questions invited. The patient/parents/legal guardian/POA seems to understand and agrees to proceedwith anesthesia plan. Reviewed the physical assessment, medical history, allergy history and patient home medications list prior to surgery/procedure/anesthetic and documented any changes. Performed airway and anesthesia risk assessments. Anesthesia Type Anesthesia Type: MAC Anesthesia Focused Assessment* Airway Assessment Mouth opens: >3 cm Mallampati Score: II Focused Labs Anesthesia Preop lab: CBC WBC 6.6 K/mm3 (4.4-11.0) 12/23/24 06:15 12/23/24 RBC 4.02 M/mm3 (4.2-5.4) L 12/23/24 06:15 12/23/24 Hgb 12.3 g/dL (12.0-15.0) 12/23/24 06:15 12/23/24 Hct 35.6 % (37-47) L 12/23/24 06:15 12/23/24 Plt Count 220 K/mm3 (150-450) 12/23/24 06:15 12/23/24 CHEMISTRY Potassium 3.9 mmol/L (3.3-5.1) 12/23/24 06:15 12/23/24 Sodium 142 mmol/L (133-145) 12/23/24 06:15 12/23/24 Magnesium 2.3 mg/dL (1.5-2.2) H 12/20/24 06:28 12/20/24 BUN 14 mg/dL (4-19) 12/23/24 06:15 12/23/24 Creatinine 0.88 mg/dL (0.70-1.20) 12/23/24 06:15 12/23/24 Glucose 84 mg/dL (70-99) 12/23/24 06:15 12/23/24 POC Glucose 135 mg/dL (70-110) H 07/14/20 21:43 07/14/20 TSH 1.30 uIU/mL (0.358-3.74) 04/27/17 09:46 COAG Pre-Assessment Diagnosis/Proposed Procedure Planned Operative Procedure(s): EGD Anesthesia History Anesthesia History - commercial credit specialist: Anesthesia History - commercial credit specialist Hx Hospitalization Yes 01/14/25 10:12 Any Problems With Anesthesia No 01/14/25 10:12 Cholinesterase deficiency No 01/14/25 10:12 You/Your Family Experience No 01/14/25 10:12 fever (hyperthermia) with Relationship Recent Exposure to Contagious No 06/08/22 08:12 Disease Does patient have nerve No 01/14/25 10:12 stimulator Patient instructed to have device shut off --Does patient have Pacemaker or ICD? When Was Last Pacemaker Check QUESTION #4 FULL TEXT: You/Your Family Experience fever (hyperthermia) with Anesthesia Last Oral Intake Last Oral intake: Last Oral Intake NPO since Meds taken in AM with sips of water? Meds patient instructed to take am of surgery PONV PONV - commercial credit specialist: PONV - commercial credit specialist Female Yes 01/14/25 10:12 HX of Motion Sickness No 01/14/25 10:12 HX of N/V After Surgery No 01/14/25 10:12 Non-Smoker Yes 01/14/25 10:12 Duration of Surgery greater No 01/14/25 10:12 than 60 minutes Number of Risk Factors 2 01/14/25 10:12 PONV Score Moderate Risk 01/14/25 10:12 Height & Weight Height & Weight: Anesthesia: Height & Weight Height 5 ft 1 in 01/18/25 12:02 Respiratory Assessment Respiratory Assessment - commercial credit specialist: Respiratory Tract Infection Hx - commercial credit specialist Hx Respiratory Tract Infection No 01/14/25 10:12 STOP Sleep Apnea STOP Sleep Apnea - commercial credit specialist: STOP Sleep Apnea - commercial credit specialist Hx Hypertension No 01/18/25 12:02 Hx Sleep Apnea No 01/14/25 10:12 CPAP BIPAP Do you snore loudly (louder No 01/14/25 10:12 than talking or can be heard Do you often feel tired/ No 01/14/25 10:12 fatigued/ sleepy during daytime? Has anyone observed you stop No 01/14/25 10:12 breathing during sleep? STOP Results Negative 01/14/25 10:12 QUESTION #5 FULL TEXT : Do you snore loudly (louder than talking or can be heard through closeddoors)? 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 Specify any problems Hx of Preganancy in last 3 No 01/14/25 10:12 Months Nurse Filling Out Transfusion VCHRISTIN 01/14/25 10:12 & Questions: Date: 01/14/25 01/14/25 10:12 Time: 10:14 01/14/25 10:12 Patient unable to answer at this time (ie. confused, unrespo /Reproduction History /Reproductive History - commercial credit specialist: /Reproductive Hx- commercial credit specialist Hx Now Gestational Age (in weeks): EDC: Hx Hx Para Hx Section SAB PFSH Medical History Post-menopausal Cancer Depression Anxiety Walker as ambulation aid Anemia Back pain Injury of head and neck Gastric reflux Leg cramps 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 health care History of pneumococcal infection Headache, migraine Carpal tunnel syndrome history of bone fracture Back problem Arthritis Seasonal allergies Endometriosis Screening for intestinal cancer Iron deficiency anemia Renal cell cancer Former tobacco use Obesity Pancreatitis URI, acute History of nausea and vomiting History of abdominal pain Home Medications ?Medication ?Instructions ?Recorded ?Last Taken ?Type scopolamine base 1 mg over 3 days 1 patch topical Q72H 12/18/24 Unknown History transdermal patch escitalopram oxalate 10 mg tablet 10 mg PO DAILY 01/14 Unknown History omeprazole 40 mg capsule,delayed 40 mg PO DAILY Unknown History release ondansetron HCl 8 mg tablet 4 mg PO 4X/DAY PRN PRN rachel sea 01/14/25 Unknown History Allergy/AdvReac Type Severity Reaction Status Date / Time latex Allergy Mild rash Verified 01/14/25 13:11 Penicillins Allergy Unknown Verified 01/14/25 13:11 adhesive tape AdvReac Rash Verified 01/14/25 13:11 Family History Brother Asthma Malignant hyperthermia due to anesthesia Hypertension Grandfather Colon cancer Mother Heart disease Thyroid disorder COPD (chronic obstructive pulmonary disease) Arthritis Anemia Sister Breast cancer Hypertension Thyroid disorder Hypothyroid Arthritis Father Bleeding disorder Cancer Lung Myelodysplastic syndrome Chronic lymphocytic leukemia Alcohol abuse Aunt Myocardial infarction Surgical History History of esophagogastroduodenoscopy (EGD) History of back surgery s/p kidney cancer Status post endometrial ablation Social History household members: children Smoking Status: Former smoker alcohol intake: current alcohol intake frequency: holidays/special occasions only what type of physical activity do you participate in: walking, bicycling, aerobics and weight training do you feel safe at home: Yes Review of Systems (Anesthesia) ROS Narrative System reviewed and no additional complaints, except as documented. 01/18/25 1354 > Date _ [facility] Date CC: ~ Signed [facility]04-07-2025 History of Present illness Narrative* Heather Cuevas RN - 01/14/2025 11:12 AM EDT This visit was completed over the phone. ONCOLOGY PATIENT EDUCATION NOTE TOPIC: Targeted Therapy, Medications: Darzalex patient called today for education for treatment of Multiple Myeloma Anticipated/Scheduled start date: 01/25/25 READINESS TO LEARN: COGNITIVE ABILITY: Alert and oriented MOTIVATION TO LEARN: Interested FAMILY SUPPORT: High - Very involved in pt care INSTRUCTION PROVIDED TO: Patient INSTRUCTION PROVIDED BY: Nurse Coordinator PATIENT LEARNS BEST BY: Multiple Methods FACTORS AFFECTING LEARNING: None PHYSICAL LIMITATIONS AFFECTING LEARNING: None LEARNING RESPONSE METHOD OF INSTRUCTION: Individual instruction Written instruction/Handouts Verbal instruction PATIENT/FAMILY RESPONSE: Verbalizes understanding of: CHEMOTHERAPY-Regimen, toxicity and side effects FOLLOW UP PLAN: Patient instructed to call with any further issues Recommend - Recommend continued instruction and follow up as directed Follow up phone call. Contact information given. SUPPLEMENTAL MATERIAL: Written material was provided at this visit with the following information: - Targeted Therapy education was provided by a pharmacist NO - Side effect management information was provided/discussed including but not limited to: anemia, bowel habit changes, diet, fatigue, hypersensitivity reaction, neutropenia, thrombocytopenia YES - Provided important phone numbers and contacts during and after hours. YES - Provided information on symptoms that require immediate assistance. YES - Provided Chemotherapy when to call handouts YES - Preventing infection. YES - Treatment schedule and confirmation of appointment times. YES - Available support groups. YES - Neutropenic fever protocol discussed with patient, which included the importance of reporting anyfever of 100.4F (38.0C) or greater to the healthcare team as noted on the provided wallet card and/or magnet. YES Discussed taking decadron the day after treatment for the first three treatments: 01/26, 02/02, 02/09. Start Acyclovir next week. Time Spent: 40 minutes REFERRAL (RECOMMENDATION): N/A Heather Cuevas RN documented [facility] Telephone encounter Note * Telephone Encounter - Nichole Valladares - 01/11/2025 1:52 PM EDT Scheduled thru C8 of weekly treatments. Start email sent [facility] Work Phone: [phone]) 680-237404-04-2025 Miscellaneous Notes* Telephone Encounter - Nichole Valladares - 01/11/2025 1:52 PM EDT Scheduled thru C8 of weekly treatments. Start email sent * Telephone Encounter - Kimberly Zeng - 01/11/2025 12:25 PM EDT Lvm for patient to return the call. Patient needs to do labs today. Nurse printed off sticker for her to give lab. They were un able to do labs under nurse visit. * Telephone Encounter - Kimberly Zeng - 01/11/2025 12:18 PM EDT Labs today- labs ordered today by Dr. Styles only. Chemo education SCHEDULED 01/14 Start weekly Darzalex per [place] orders, the week of 01/21/2025- start later in the week. CBC/CMP on D1. For dose 2 and 3,5,6 and 7- CBC only. Dose 4- CBC/CMP/MM labs (no urine). Dose 8-OV/CBC/CMP/MM labs/24 hour urine M-spike, all on same day. Add Zometa (due 02/07/2025) while her for Darzalex and cancel OV on 02/07/2025. Kimberly Zeng documented [facility]04-04-[facility]25 Telephone encounter Note * Telephone Encounter - Kimberly Zeng - 01/11/2025 12:25 PM EDT Lvm for patient to return the call. Patient needs to do labs today. Nurse printed off sticker for her to give lab. They were un able to do labs under nurse visit. [facility] Telephone encounter Note* Telephone Encounter - Kimberly Zeng - 01/11/2025 12:18 PM EDT Labs today- labs ordered today by Dr. Styles only. Chemo education SCHEDULED 01/14 Start weekly Darzalex per [place] orders, the week of 01/21/2025- start later in the week. CBC/CMP on D1. For dose 2 and 3,5,6 and 7- CBC only. Dose 4- CBC/CMP/MM labs (no urine). Dose 8-OV/CBC/CMP/MM labs/24 hour urine M-spike, all on same day. Add Zometa (due 02/07/2025) while her for Darzalex and cancel OV on 02/07/2025. Kimberly Zeng [facility]04-04-[facility] History of Present illness Narrative* Asha Bowling RN - 01/11/2025 12:01 PM EDT Pt states IV placed at [facility] on 01/09/25. IV removed from Lt forearm d/t no blood return. Catheter intact, redness noted at insertion site. Dressing applied. Educated to apply warm compress.Pt. Verbalized understanding. documented in this encounterLuther[facility] Hospital04-04-2025 History of Present illness Narrative* Jadon Styles DO - 01/11/2025 11:16 AM EDT Oncologic problem(s): 1) Multiple myeloma. HISTORY OF PRESENT ILLNESS: Alvino Nina is a 59 year old female had back pain and MRI scan lumbar spine without contrast showed an acute mild compression fracture at superior end plate of L5.Spinal stenosis at L4 to L5. 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 She continued to have significant pain in her lower back which limited her movement and daily activity. She was on morphine, oxycodone and [place] which caused significant nausea A follow-up MRI scan of the thoracic spine on 06/09/2020 also showed acute moderate wedge compression fracture at T11 without obvious protrusion into the spinal canal. There were no obvious lytic lesions or marrow infiltrations in her thoracic or lumbar spine. Liver MRI in January 2023 noted pancreatic cyst, suggested yearly follow up x 5 years. Previous treatment: 1) RvD - lenalidomide, bortezomib, dexamethasone (CR) 2) ASCT 01/15/2021. 4) Lenalidomide maintenance. Stopped May 2024 secondary to ongoing nausea. 3) Botezomib every other week maintenance. Current therapy: 1) Zometa. Presents for ongoing oncologic management. Interim history: Had worsening nausea on Revlimid and it was held again at least a month ago. She had presented to the ED for uncontrolled vomiting. Was admitted for IV fluids. Still has nausea but improved. She was started on [id number] Reglan. Scheduled for EGD next Tuesday. She has a complaint of just not feeling well all over. Reviewed her medications in detail. PAST MEDICAL HISTORY Diagnosis Date Benign renal tumor unsure of malignancy Cancer of right kidney (HCC) Compression fracture of L5 vertebra ([facility]) 05/2020 Compression fracture of T11 vertebra ([facility]) 06/09/2020 acute moderate compression fx withou obvious protrusion into the spinal canal, seen on MRI Endometriosis Environmental allergies Generalized anxiety disorder Immunodeficiency ([facility]) 03/04/2021 Irregular heart beat Lytic lesion of bone on x-ray 06/25/2020 skull, bilateral humeri, bilateral femurs and possibly the left tibial plateau Multiple myeloma not having achieved remission ([facility]) 06/25/2020 Multiple myeloma not having achieved remission ([facility]) 06/25/2020 Osteopenia 06/25/2020 S/P autologous bone marrow transplantation ([facility]) 01/13/2021 Day: +13 Protocol(s): Auto 3422 1C Melphalan 200 Preparative regimen: melphalan Mobilization regimen: Neupogen Stem cell source: Stem cells CD34 cell dose (x10e6/kg): 5.14 Date of transplant: 01/15/2021 PAST SURGICAL HISTORY Procedure Laterality Date BACK SURGERY HX EGD 03/03/2023 FNA WITH IMAGING 09/12/2012 U/S FNA left thyroid nodule KIDNEY BIOPSY Right 2012 KYPHOPLASTY - LUMBAR 06/05/2020 L5 LAPS ABD PRTM&OMENTUM DX W/WO SPEC BR/WA SPX 1984 Laparoscopy LIG/TRNSXJ FLP TUBE ABDL/VAG APPR UNI/BI 2012 Tubal ligation, with ablation TONSILLECTOMY HX TUMOR REMOVAL (SPECIFY LOCATION) HX Right 2012 kidney Current Outpatient Medications Medication Sig scopolamine (TRANSDERM-SCOP) patch 1.5 mg/72 hr (delivers 1 mg over 3 days) Apply 1 patch as directed every 72 hours. escitalopram oxalate (LEXAPRO) 10 mg tablet Take 10 mg by mouth daily at bedtime. metoclopramide HCl (REGLAN) 10 mg tablet Take 10 mg by mouth four times daily. furosemide (LASIX) 40 mg tablet Take 40 mg by mouth as needed. potassium chloride (K-TAB) 10 mEq tablet Take 1 tablet by mouth as needed. omeprazole (PRILOSEC) 40 mg capsule Take 1 capsule by mouth once daily. cholecalciferol, vitamin D3, (VITAMIN D3 50 MCG, 2,000 UNIT, GUMMIES) Take 2,000 Units by mouth onetime only. MAGNESIUM GLYCINATE ORAL Take 400 mg by mouth one time only. COLLAGEN MISC 1 Tablespoonful once daily. No current facility-administered medications for this visit. ALLERGIES Allergen Reactions Adhesive Tape (Mariam* Rash Penicillins Hives Other reaction(s): Unknown Vicodin [Hydrocodon* Intolerance Latex Rash Other reaction(s): rash FAMILY HISTORY Problem Relation Age of Onset Allergies Brother Hypertension Brother Allergies Sister Breast Cancer Sister Anesthesia Mother Thyroid Mother other (valve replacement) Mother Hypertension Sister Thyroid Sister No Known Problems Paternal Grandmother Ischemic Heart Disease Father Hypertension Father Lung Cancer Father other (CLL) Father Chronic lymphocytic leukemia Heart Maternal Grandmother Colon Cancer Maternal Grandfather Heart Attack Paternal Grandfather 50 Anxiety disorder Brother Hypertension Brother No Known Problems Daughter No Known Problems Son Social History Tobacco Use Smoking status: Former Current packs/day: 0.00 Types: Cigarettes Start date: 06/23/1992 Quit date: 06/23/1997 Years since quittin.5 Smokeless tobacco: Never Tobacco comments: quit smoking cigarettes in 1984 but only had smoked for few years approximately 1 pack/week Vaping Use Vaping status: Never Used Substance Use Topics Alcohol use: Not Currently Comment: socially Drug use: No PHYSICAL EXAM: Vitals: Blood pressure 147/88, pulse 68, temperature 36.4 C (97.6 F), temperature source Temporal, weight 90.3 kg (199 lb), SpO2 98%. Well-appearing and in no acute distress. EYES: Sclerae are anicteric bilaterally. CARDIOVASCULAR: Rhythm is regular. ABDOMEN: The abdomen is nondistended. SKIN: No jaundice. IMAGING: MRI pancreas 01/17/2024: IMPRESSION: Stable pancreatic cystic focus. Likely sidebranch IPMN. No focal pancreatic enlargement, pathologic enhancement or suspicious lesion Stable hepatic cysts, and stable left hepatic lobe hemangioma. Renal cysts. No suspicious renal lesion. 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 -IgA by RUFINA only. -Baseline kappa 1,073.3 mg/L (06/23/2020). -[place] light chain in the urine. Small increase in serum. No detectable monoclonal protein by immunofixation of the serum. This does however suggest progressive disease. -I recommended treatment with daratumumab. We will try therapy without along with dexamethasone fora month or 2 then consider adding pomalidomide depending on tolerance to daratumumab. -She has a PICC line so premeds will be administered here the day of treatment. -I discussed the rationale, logistics, potential risks (including but not limited to infusion reactions, cytopenias, infections and the small potential for as a consequence of severe toxicity/complications of therapy), benefits and alternatives, as well as the personnel involved in the adminis tration of subcutaneous daratumumab. I answered her questions in detail and she verbalized understanding and agreed with the recommended therapy. Please see the electronic consent document for details of doses and schedule. - In regard to her sense of feeling unwell, discussed checking iron, magnesium and phosphorus. [place] check B12 and serum folate as her nutritional intake has not been the best lately. Plan: -Rx acyclovir and dexamethasone. -Keep upcoming EGD scheduled for 01/18. -Begin daratumumab later the week after next. -Recheck myeloma labs at the time of the fourth dose and eighth dose. Portions of this documentation were copied and pasted from my previous office visit note dated 09/11/2024 in order to provide a cohesive continuity of the history. The note has been reviewed and edited and updated as necessary. I spent a total of 50 minutes on the date of the service which included preparing to see the patient, [id number] patient care, completing clinical documentation, obtaining and/or reviewing separately obtained history, performing a medically appropriate examination, counseling and educating the pat ient/family/caregiver, ordering medications, tests, or procedures, communicating with other HCPs (not separately reported), and communicating results to the patient/family/caregiver. Jadon Styles DO documented in this encounterLuther[facility] Hospital03-26-2025 Telephone encounter Note * Telephone Encounter - Katie Vega LPN - 01/02/2025 7:37 AM EDT Revlimid is on hold per patient request d/t nausea. Patient will discuss restarting this at upcoming OV on 01/11/2025. Katie Vega LPN [facility]03-26-2025 Miscellaneous Notes* Telephone Encounter - Katie Vega LPN - 01/02/2025 7:37 AM EDT Revlimid is on hold per patient request d/t nausea. Patient will discuss restarting this at upcoming OV on 01/11/2025. Katie Vega LPN * Telephone Encounter - Sangeeta Garsia LPN - 12/31/2024 8:01 AM EDT Prescription Refill Information The patient has been identified by name and date of : Yes Caregiver verified no other encounters exist for this prescription request: Yes Caregiver confirmed with patient/requestor that no other refills are due, in the near future, with this provider at this time: Yes The last office visit in the department: 10/11/2024 Does the patient have a future office visit with this provider/department: Yes Requested Prescriptions No prescriptions requested or ordered in this encounter Sangeeta Garsia LPN December 31, 2024 8:01 AM documented in this encounterLuther[facility] Hospital03-26-2025 Telephone encounter Note * Telephone Encounter - Katie Vega LPN - 01/02/2025 7:36 AM EDT Revlimid is on hold per patient request. Katie Vega LPN [facility]03-26-2025 Miscellaneous Notes* Telephone Encounter - Katie Vega LPN - 01/02/2025 7:36 AM EDT Revlimid is on hold per patient request. Katie Vega LPN documented in this encounterLuther[facility] Hospital03-24-2025 Telephone encounter Note * Telephone Encounter - Sangeeta Garsia LPN - 12/31/2024 8:01 AM EDT Prescription Refill Information The patient has been identified by name and date of : Yes Caregiver verified no other encounters exist for this prescription request: Yes Caregiver confirmed with patient/requestor that no other refills are due, in the near future, with this provider at this time: Yes The last office visit in the department: 10/11/2024 Does the patient have a future office visit with this provider/department: Yes Requested Prescriptions No prescriptions requested or ordered in this encounter Sangeeta Garsia LPN December 31, 2024 8:01 AM [facility]03-21-[facility] Radiology Diagnostic study note [facility] Imaging Services [address] [place] [address] [id number] Gallbladder MR#: [id number] Acct: [id number] Name: NUPURALVINO Rep #: [id number] : 1965 F 59 From: Estefany Valenzuela MD PCP: Care Physician,No Primary Status: REG CLI Study:Gallbladder Date of Exam: 12/28/24 Exam# [id number] Ordering Dr: Cyndi Mason EXAM: US Abdomen Limited, Gallbladder CLINICAL INDICATION: NAUSEA AND VOMITING TECHNIQUE: Real-time ultrasound of the right upper quadrant with image documentation. COMPARISON: No relevant prior studies available. FINDINGS: LIVER: Hepatopetal blood flow in main portal vein. Probable hemangioma of the left lobe measuring up to 1.5 cm. If indicated, this could be further evaluated with CT or MRI of the abdomen using liver mass protocol. Liver measures up to 13.8 cm. Fatty infiltration of the liver. GALLBLADDER: Negative Weir's sign was reported by the cell changer. No gallstones. COMMON BILE DUCT: Unremarkable as visualized. No stones. No dilation. Commonbile duct measures 0.46cm in diameter. PANCREAS: Unremarkable as visualized. RIGHT KIDNEY: Unremarkable. No stones. No hydronephrosis. The right kidney measures 10.0 x 4.3 x 4.4 cm. US/Gallbladder IMPRESSION: Fatty infiltration of the liver. Reading Location: [facility] CC: MARION Tran; No Primary Care Physician ~ Franchise Consultant: Signed [facility]03-21-2025 History of Present illness Narrative* Abby Cardona RT(R) - 12/28/2024 12:00 PM EDT Radiology Service Progress Note PATIENT NAME: Alvino Nina DATE OF SERVICE: December 28, 2024 TIME: 11:45 PM PATIENT IDENTITY VERIFICATION COMPLETED USING TWO (2) IDENTIFIERS: Name and Date of confirmedby patient verbally. FALL SCREENING: Has the patient had 2 falls in the last year or 1 fall with injury or currently using an Ambulatory Assistive Device (Walker, Cane, Wheelchair, Crutches, etc.)? No PATIENT GENDER DATA: Assigned female at . status: : No status:NO. PATIENT RELEVANT IMPLANT DATA REVIEWED: Not Applicable PATIENT PRESENTS WITH AN IMPLANTABLE OR ATTACHED PEDIATRICIAN/MEDICAL DOCTOR: No RADIOLOGY DEPARTMENT: General X-ray: Exam(s) Completed: Spine X-Ray(s): Scoliosis Series PERIPHERAL IV DATA: Not applicable SIGNED BY: RT Cristine(R) December 28, 2024 12:07 PM documented in this encounterLutheran Hospital03-21-2025 History of Present illness Narrative* Elvi Vieira RT(R) - 12/28/2024 11:40 AM EDT Radiology Service Progress Note PATIENT NAME: Alvino Nina DATE OF SERVICE: December 28, 2024 TIME: 1:03 PM PATIENT IDENTITY VERIFICATION COMPLETED USING TWO (2) IDENTIFIERS: Name and Date of confirmedby patient verbally. FALL SCREENING: Has the patient had 2 falls in the last year or 1 fall with injury or currently using an Ambulatory Assistive Device (Walker, Cane, Wheelchair, Crutches, etc.)? No PATIENT GENDER DATA: Assigned female at . status: : No status:NO. PATIENT RELEVANT IMPLANT DATA REVIEWED: Not Applicable PATIENT PRESENTS WITH AN IMPLANTABLE OR ATTACHED PEDIATRICIAN/MEDICAL DOCTOR: No RADIOLOGY DEPARTMENT: CT; Exam(s) Completed: Spine PERIPHERAL IV DATA: Not applicable SIGNED BY: RT Meggan(R) December 28, 2024 1:03 PM documented in this encounterLuther[facility] Hospital03-18-2025 Telephone encounter Note * Telephone Encounter - Svetlana Dunham - 12/25/2024 11:18 AM EDT This has been scheduled as directed. Svetlana Dunham [facility]03-18-2025 Miscellaneous Notes* Telephone Encounter - Svetlana Dunham - 12/25/2024 11:18 AM EDT This has been scheduled as directed. Svetlana Dunham * Telephone Encounter - Katie Vega LPN - 12/25/2024 8:37 AM EDT PSS-From 12/18/2024 phone note- I also think it is time to repeat her CBC/CMP/myeloma labs with 24-hour urine M spike then establish complexed visit with me. Katie Vega LPN * Telephone Encounter - Nichole Valladares - 12/25/2024 8:19 AM EDT Patient called stating she was discharged from [facility]. She states she still feels very nauseas. She states she does not want to continue Revlimid. Please advise patient. documented in this encounterLuther[facility] Hospital03-18-2025 Telephone encounter Note * Telephone Encounter - Katie Vega LPN - 12/25/2024 8:37 AM EDT PSS-From 12/18/2024 phone note- I also think it is time to repeat her CBC/CMP/myeloma labs with 24-hour urine M spike then establish complexed visit with me. Katie Vega LPN [facility]03-18-[facility]25 Telephone encounter Note* Telephone Encounter - Nichole Valladares - 12/25/2024 8:19 AM EDT Patient called stating she was discharged from [facility]. She states she still feels very nauseas. She states she does not want to continue Revlimid. Please advise patient. [facility] Work Phone: [phone] History of Present illness Narrative* Anita Brannon MD - 12/24/2024 8:10 AM EDT Staff note: I have communicated my name and active licensure. The patient's identity and physical location wereverified at the time of this visit. Either the patient or their legal cash posting representative has been informed of the risks and benefits of -- and alternatives to -- treatment through a remote evaluation andconsents to proceed with the evaluation remotely. 15 minutes Brief history and symptoms: MM dx 4 years prior Has pathologic fractures Pain bra--> down back Pain is much worse with moving Sitting still requires upright suppot Walks ok with aid No leg pain or numbness in legs, MRI with disc signal at 11.12, mild compression CT with every level visualized fractured Plan I don't know if there is a focal vs bunn (fractured) aspect to her pain Would like upright imaging and dedicated CT T spine Recs to follow Anita Brannon MD documented in this encounterLutheran Hospital03-16-2025 Discharge summary Author Corin Flores [facility] Note Date/Time December 23, 2024 11: 45am [facility] Medical Records Department [address] [place] [address] Instructions for Home/Discharge Instructions 12/23/24 1136 MR#: [id number] Acct: [id number] Name: ALVINO NINA Rep #:[id number] : 1965 59 From: Corin Flores MD PCP: Care Physician,No Primary Status :ADM [facility] Discharge Instructions Diet Discharge Diet: Light diet - advance as tolerated DC O2, CPAP, BIPAP needs Home O2 Discharge instructions: No Dressing / Incision Discharge Activity: Return to Normal Activity Follow Up Care Test Results: Test results from this visit will be discussed in further detail at your follow- up appointment, if applicable. Discharge Plan Admission Admit Date/Time: 12/18/24 21:47 Primary Reason for Your Visit: Intractable nausea Attending Provider: Corin Flores Primary Care Provider: Care Physician,No Primary Consulting Providers: Gurmeet Watkins Instructions Patient Instructions: Reglan Oral Tablet 5 mg, ED Vomiting (Adult) Additional Instructions / Restrictions: DISCHARGE INSTRUCTIONS PLEASE READ *Please take this with you to your next doctors appointment* -You will be discharged on Reglan which you will take 3 times daily before mealsand at bedtime as well as haloperidol 0.5 mg 3 times daily. This regimen may need adjusted moving forward but will defer this to your outpatient physicians -You also will be discharged with Zofran as needed -You will be sent in a 2-week supply, will be important to follow-up with your outpatient providers within this time. For further regimen continuation or adjustment so that you can be assessed for efficacy and any side effects that would necessitate adjusting these medications further -You can continue to use your scopolamine patch -Please continue do not take your other previous home medications as per our discussion -You will need to follow-up with Dr. Hernández with GI in his office upon discharge. Please call his office to schedule an appointment (ph. [phone]) -Please follow-up with your oncologist on discharge -Please call your primary care provider's office upon discharge to schedule a hospital follow up within 1 week. -For any concerning signs or symptoms please call 911 or proceed to the nearest emergency department Discharge Orders/Prescriptions Prescriptions: New haloperidol 1 mg Tablet 0.5 mg PO TID 14 Days Qty: 21 0RF metoclopramide HCl 5 mg Tablet 5 mg PO Q6H 14 Days Qty: 56 0RF ondansetron 4 mg tablet,disintegrating 4 mg PO Q8H PRN (Reason: nausea and vomiting) Qty: 30 0RF Continued scopolamine base 1 mg over 3 days patch 3 day 1 patch topical Q72H Rx Instructions: LAST PLACED 12/18/24 Discontinued lorazepam 0.5 mg tablet 0.5 mg PO TID PRN (Reason: anxiety) furosemide 40 mg tablet 40 mg PO DAILY PRN olanzapine 5 mg tablet 5 mg PO DAILY escitalopram oxalate 10 mg tablet 20 mg PO DAILY omeprazole 40 mg capsule,delayed release(DR/EC) 40 mg PO DAILY meclizine 25 mg tablet 25 mg PO TID buspirone 7.5 mg tablet 7.5 mg PO 3XD fentanyl 25 mcg/hr patch 72 hour 1 patch transdermal Q3D Rx Instructions: TOOK PATCH OFF AT HOME 12/18/24 DOES NOT WANT REAPPLIED AT THIS TIME ondansetron HCl 8 mg tablet 4 mg PO 4X/DAY PRN PRN (Reason: nausea) Referrals / Follow Up: Care Physician,No Primary [Primary Care Provider] - Ysabel Esteban NP-C [Non-Staff] - In 1 Week Disposition Disposition (needs filled in before D/C Order can be placed): Home, Self Care 12/23/24 6365<Electronically signed by Corin Flores MD>Corin Flores MD CC: Dr. Gurmeet de Juliocesar, DO; No Primary Care Physician ~ Signed [facility] Work Phone: 1(277) 712-243803-16-2025 Discharge summary [facility] Medical Records Department [address] [place] [address] Instructions for Home/Discharge Instructions 12/23/24 1136 MR#: [id number] Acct: [id number] Name: ALVINO NINA Rep #:[id number] : 1965 59 From: Corin Flores MD PCP: Care Physician,No Primary Status :ADM GILLES Discharge Instructions Diet Discharge Diet: Light diet - advance as tolerated DC O2, CPAP, BIPAP needs Home O2 Discharge instructions: No Dressing / Incision Discharge Activity: Return to Normal Activity Follow Up Care Test Results: Test results from this visit will be discussed in further detail at your follow- up appointment, if applicable. Discharge Plan Admission Admit Date/Time: 12/18/24 21:47 Primary Reason for Your Visit: Intractable nausea Attending Provider: Corin Flores Primary Care Provider: Care Physician,No Primary Consulting Providers: Gurmeet Watkins Instructions Patient Instructions: Reglan Oral Tablet 5 mg, ED Vomiting (Adult) Additional Instructions / Restrictions: DISCHARGE INSTRUCTIONS PLEASE READ *Please take this with you to your next doctors appointment* -You will be discharged on Reglan which you will take 3 times daily before mealsand at bedtime as well as haloperidol 0.5 mg 3 times daily. This regimen may need adjusted moving forward but will defer this to your outpatient physicians -You also will be discharged with Zofran as needed -You will be sent in a 2-week supply, will be important to follow-up with your outpatient providerswithin this time. For further regimen continuation or adjustment so that you can be assessed for efficacy and any side effects that would necessitate adjusting these medications further -You can continue to use your scopolamine patch -Please continue do not take your other previous home medications as per our discussion -You will need to follow-up with Dr. Hernández with GI in his office upon discharge. Please call his office to schedule an appointment (. [phone]) -Please follow-up with your oncologist on discharge -Please call your primary care provider's office upon discharge to schedule a hospital follow up within 1 week. -For any concerning signs or symptoms please call 911 or proceed to the nearest emergency department Discharge Orders/Prescriptions Prescriptions: New haloperidol 1 mg Tablet 0.5 mg PO TID 14 Days Qty: 21 0RF metoclopramide HCl 5 mg Tablet 5 mg PO Q6H 14 Days Qty: 56 0RF ondansetron 4 mg tablet,disintegrating 4 mg PO Q8H PRN (Reason: nausea and vomiting) Qty: 30 0RF Continued scopolamine base 1 mg over 3 days patch 3 day 1 patch topical Q72H Rx Instructions: LAST PLACED 12/18/24 Discontinued lorazepam 0.5 mg tablet 0.5 mg PO TID PRN (Reason: anxiety) furosemide 40 mg tablet 40 mg PO DAILY PRN olanzapine 5 mg tablet 5 mg PO DAILY escitalopram oxalate 10 mg tablet 20 mg PO DAILY omeprazole 40 mg capsule,delayed release(DR/EC) 40 mg PO DAILY meclizine 25 mg tablet 25 mg PO TID buspirone 7.5 mg tablet 7.5 mg PO 3XD fentanyl 25 mcg/hr patch 72 hour 1 patch transdermal Q3D Rx Instructions: TOOK PATCH OFF AT HOME 12/18/24 DOES NOT WANT REAPPLIED AT THIS TIME ondansetron HCl 8 mg tablet 4 mg PO 4X/DAY PRN PRN (Reason: nausea) Referrals / Follow Up: Care Physician,No Primary [Primary Care Provider] - Ysabel Esteban NP-C [Non-Staff] - In 1 Week Disposition Disposition (needs filled in before D/C Order can be placed): Home, Self Care 12/23/24 1145Corin Flores MD CC: Dr. Gurmeet Watkins DO; No Primary Care Physician ~ Signed [facility]16[facility] Progress note Author Corin Flores [facility] Note Date/Time December 22, 2024 1:5 1pm [facility] Medical Records Department [address] [place] [address] Progress Note - Hospitalist 12/22/24 1346 MR#: [id number] Acct: [id number] Name: ALVINO NINA Rep #:[id number] : 1965 59 From: Corin Flores MD PCP: Care Physician,No Primary Status :ADM GILLES Location: [place] [address] Reason for Visit Reason for Visit: Diagnoses Nausea (12/18/24) Subjective Subjective Patient continues to have bouts of nausea that are improved with IV medications,tolerates diet when she gets medications but nausea resumes as they start to wear off Objective Data Objective Data Vital Signs: Vital Signs Temp Pulse Resp BP Pulse Ox O2 Del Method 97.8 F 75 18 133/82 H 97 Room Air 12/22/24 08:05 12/22/24 08:05 12/22/24 08:05 12/22/24 08:05 12/22/24 08:05 12/22/24 08:05 Oxygen Delivery Method Room Air Weight: 90.492 kg Body Mass Index (BMI) 37.7 Intake & Output: Intake and Output for Last 24 Hours 12/20/24 12/21/24 12/22/24 23:59 23:59 23:59 Intake Total 300 / 500 200 / 200 Balance 300 / 500 200 / 200 Medical Nutrition Assessment Dietitian: Malnutrition Criteria Met Start: 12/19/24 11:40 Freq: Status: Active Protocol: Document 12/19/24 15:47 SB (Rec: 12/19/24 15:47 SB [id number]) Nutrition Malnutrition Evidence of Yes Malnutrition Exists Malnutrition (severe Chronic ): Evidenced By Suboptimal Energy Intake (Severe),Weight Loss (Severe) Clinical Problem Chronic Disease or Condition Related Malnutrition Etiology severe related to inadequate oral intake and increased energy expenditure d/t renal cell cancer Signs/Symptoms as evidenced by PO meeting <75% of estimated nutrition needs x >3 months and 8% unintentional weight loss x 1 month. Status Active Problem Recommendation Dietitian Recommend advanced diet as tolerated to regular diet. Recommendations/ As diet is advanced order 240ml chocolate carnation Changes instant breakfast TID with meals. Will monitor weight trends. Lab / Micro Data 12/22/24 06:51 12/22/24 06:51 Labs: Laboratory Results - last 24 hr 12/22/24 06:51: WBC 6.2, RBC 3.71 L, Hgb 11.2 L, Hct 33.1 L, MCV 89.2, MCH 30.2,MCHC 33.8, RDW Std Deviation 38.2, RDW Coeff of Marcia 11.9, Plt Count 196, MPV 10.0, Sodium 141, Potassium 3.8, Chloride 109 H, Carbon Dioxide 21.4, Anion Gap 11, BUN 11, Creatinine 0.72, Estim Creat Clear Calc 85.10, Est GFR (MDRD) Non-Af96, BUN/Creatinine Ratio 15.4, Glucose 121 H, Calcium 9.0, Total Bilirubin 0.27,AST 17, ALT 14, Alkaline Phosphatase 52, Total Protein 6.0, Albumin 3.9, Globulin 2.1 L, Albumin/Globulin Ratio 1.8 Micro: Microbiology 12/19/24 20:40 Stool Enteric Bacteriology - Final 12/19/24 20:40 Stool C. difficile GDH Antigen & Toxins - Final 12/19/24 20:40 Stool Clostridioides difficile (PCR) - Final Physical Exam Narrative General: Alert, oriented, no apparent distress HEENT: Atraumatic, normocephalic Eyes: extraocular movements grossly intact Neck: Supple Respiratory: normal respiratory effort Cardiovascular: no edema appreciated GI: nondistended Extremities: Moving all extremities Neuro: No overt focal neurological deficits Psych: Cooperative Assessment & Plan Assessment/Plan (1) Intractable nausea: PLAN: Plan # Intractable nausea -Patient has chronic intermittent nausea but reports it has been worse since Tuesday, does find the IV antiemetics helpful but since symptoms return when it starts to wear off -Does not necessarily find the scopolamine patch helpful -Patient tolerating diet so diet has been advanced to transitional -Does also report that, while she has chronic diarrhea, her stool today was different for her so stool studies have been ordered -Of note patient does use medical marijuana, unclear if this could be contributing -GI consult pending -12/20: GI evaluated, CT abdomen pelvis ordered as well as a gastric emptying study, doing well with IV nausea medication so this has been continued, tolerating transitional diet, will continue. Of note patient has chronic pain due to her multiple myeloma and vertebral fractures and was on a fentanyl patch,she had been on this for months consistently but took it off the day prior to coming in that she was worried maybe it was making her worse, do suspect that some of the additional diarrhea and maybe some of the additional nausea on top of what she was already experiencing may be due to opiate withdrawal, patient verbalizes understanding, does not want to put her fentanyl patch back on at this time -12/21: CT of the abdomen and pelvis with no acute process, gastric emptying study within normal limits, patient back on diet, GI following and patient givena dose of IV steroids and started on scheduled Haldol, seem to help initially but patient becoming nauseous again, appreciate further GI recommendations, supportive care provided -12/22: Discussed extensively with patient, will try to schedule Reglan with as needed Zofran, when discussing switching everything oral patient agreeable but became very anxious that IV medications may be discontinued, Reglan IV discontinued, Zofran IV continued but only as a backup as we are trying to transition to orals, discussed that nausea would not be resolved on discharge but the goal was to have patient be able to tolerate p.o. well and off that she can be discharged and follow-up outpatient for further workup and management. Patient agreeable. Also will obtain EKG to evaluate QTc. Chronic medical problems: #Depression/anxiety -Continue home medications -12/20: Due to patient's nausea she had not been taking her BuSpar or her Lexaproand thus was also refusing them here, discussed with patient, these have been discontinued and she does not wish to be taking them at this time # Chronic back pain -Due to multiple vertebral fractures -Supportive care -12/20: Patient 100 mL fentanyl patch as above, while it is likely not the cause of all of her symptoms and likely is exacerbating them on top of her already worsened symptoms, supportive care provided # Multiple myeloma -Patient of [facility] oncology undergoing chemotherapy -Patient initially went to [facility] ER for the same complaints on Tuesday night and was kept in ER overnight and discharged home after negative CAT scan and with some improvement with Zofran -Given continued symptoms she presented to [facility] ER -Supportive care as above -12/20: Will need to continue to follow on outpatient basis # History of renal cell carcinoma -Status post resection #DVT ppx: Lovenox subcu Corin Flores MD Time spent in the patient's overall evaluation,decision-making process, review of diagnostic data, adjustment of management, discussion with other providers, nursing nursing and ancillary staff involved in patient's care documentation, 39Minutes Charges/Coding Visit Charges Inpatient E&M: 94099 Subs Hosp L2 12/22/24 1351 <Electronically signed by Corin Flores MD> Cosigner Signature (if applicable): CC: ~ Signed [facility] Work Phone: 1(292) 222-544403-15-2025 Progress note [facility] Medical Records Department [address] [place] [address] Progress Note - Hospitalist 12/22/24 1346 MR#: [id number] Acct: [id number] Name: ALVINO NINA Rep #:[id number] : 1965 59 From: Corin Flores MD PCP: Care Physician,No Primary Status :ADM GILLES Location: [id number] Reason for Visit Reason for Visit: Diagnoses Nausea (12/18/24) Subjective Subjective Patient continues to have bouts of nausea that are improved with IV medications,tolerates diet whenshe gets medications but nausea resumes as they start to wear off Objective Data Objective Data Vital Signs: Vital Signs Temp Pulse Resp BP Pulse Ox O2 Del Method 97.8 F 75 18 133/82 H 97 Room Air 12/22/24 08:05 12/22/24 08:05 12/22/24 08:05 12/22/24 08:05 12/22/24 08:05 12/22/24 08:05 Oxygen Delivery Method Room Air Weight: 90.492 kg Body Mass Index (BMI) 37.7 Intake & Output: Intake and Output for Last 24 Hours 12/20/24 12/21/24 12/22/24 23:59 23:59 23:59 Intake Total 300 / 500 200 / 200 Balance 300 / 500 200 / 200 Medical Nutrition Assessment Dietitian: Malnutrition Criteria Met Start: 12/19/24 11:40 Freq: Status: Active Protocol: Document 12/19/24 15:47 SB (Rec: 12/19/24 15:47 SB [id number]) Nutrition Malnutrition Evidence of Yes Malnutrition Exists Malnutrition (severe Chronic ): Evidenced By Suboptimal Energy Intake (Severe),Weight Loss (Severe) Clinical Problem Chronic Disease or Condition Related Malnutrition Etiology severe related to inadequate oral intake and increased energy expenditure d/t renal cell cancer Signs/Symptoms as evidenced by PO meeting <75% of estimated nutrition needs x >3 months and 8% unintentional weight loss x 1 month. Status Active Problem Recommendation Dietitian Recommend advanced diet as tolerated to regular diet. Recommendations/ As diet is advanced order 240ml chocolate carnation Changes instant breakfast TID with meals. Will monitor weight trends. Lab / Micro Data 12/22/24 06:51 12/22/24 06:51 Labs: Laboratory Results - last 24 hr 12/22/24 06:51: WBC 6.2, RBC 3.71 L, Hgb 11.2 L, Hct 33.1 L, MCV 89.2, MCH 30.2,MCHC 33.8, RDW Std Deviation 38.2, RDW Coeff of Marcia 11.9, Plt Count 196, MPV 10.0, Sodium 141, Potassium 3.8, Chloride 109 H, Carbon Dioxide 21.4, Anion Gap 11, BUN 11, Creatinine 0.72, Estim Creat Clear Calc 85.10, EstGFR (MDRD) Non-Af96, BUN/Creatinine Ratio 15.4, Glucose 121 H, Calcium 9.0, Total Bilirubin 0.27,AST 17, ALT 14, Alkaline Phosphatase 52, Total Protein 6.0, Albumin 3.9, Globulin 2.1 L, Albumin/Globulin Ratio 1.8 Micro: Microbiology 12/19/24 20:40 Stool Enteric Bacteriology - Final 12/19/24 20:40 Stool C. difficile GDH Antigen & Toxins - Final 12/19/24 20:40 Stool Clostridioides difficile (PCR) - Final Physical Exam Narrative General: Alert, oriented, no apparent distress HEENT: Atraumatic, normocephalic Eyes: extraocular movements grossly intact Neck: Supple Respiratory: normal respiratory effort Cardiovascular: no edema appreciated GI: nondistended Extremities: Moving all extremities Neuro: No overt focal neurological deficits Psych: Cooperative Assessment & Plan Assessment/Plan (1) Intractable nausea: PLAN: Plan # Intractable nausea -Patient has chronic intermittent nausea but reports it has been worse since Tuesday, does find the IV antiemetics helpful but since symptoms return when it starts to wear off -Does not necessarily find the scopolamine patch helpful -Patient tolerating diet so diet has been advanced to transitional -Does also report that, while she has chronic diarrhea, her stool today was different for her so stool studies have been ordered -Of note patient does use medical marijuana, unclear if this could be contributing -GI consult pending -12/20: GI evaluated, CT abdomen pelvis ordered as well as a gastric emptying study, doing well withIV nausea medication so this has been continued, tolerating transitional diet, will continue. Of note patient has chronic pain due to her multiple myeloma and vertebral fractures and was on a fentanyl patch,she had been on this for months consistently but took it off the day prior to coming in thatshe was worried maybe it was making her worse, do suspect that some of the additional diarrhea and maybe some of the additional nausea on top of what she was already experiencing may be due to opiatewithdrawal, patient verbalizes understanding, does not want to put her fentanyl patch back on at thi s time -12/21: CT of the abdomen and pelvis with no acute process, gastric emptying study within normal limits, patient back on diet, GI following and patient givena dose of IV steroids and started on scheduled Haldol, seem to help initially but patient becoming nauseous again, appreciate further GI recomme ndations, supportive care provided -12/22: Discussed extensively with patient, will try to schedule Reglan with as needed Zofran, when discussing switching everything oral patient agreeable but became very anxious that IV medications may be discontinued, Reglan IV discontinued, Zofran IV continued but only as a backup as we are trying to transition to orals, discussed that nausea would not be resolved on discharge but the goal was to have patient be able to tolerate p.o. well and off that she can be discharged and follow-up outpatient for further workup and management. Patient agreeable. Also will obtain EKG to evaluate QTc. Chronic medical problems: #Depression/anxiety -Continue home medications -12/20: Due to patient's nausea she had not been taking her BuSpar or her Lexaproand thus was also refusing them here, discussed with patient, these have been discontinued and she does not wish to be taking them at this time # Chronic back pain -Due to multiple vertebral fractures -Supportive care -12/20: Patient 100 mL fentanyl patch as above, while it is likely not the cause of all of her symptoms and likely is exacerbating them on top of her already worsened symptoms, supportive care provided # Multiple myeloma -Patient of [facility] oncology undergoing chemotherapy -Patient initially went to [facility] ER for the same complaints on Tuesday night and was kept in ER overnight and discharged home after negative CAT scan and with some improvement with Zofran -Given continued symptoms she presented to [facility] ER -Supportive care as above -12/20: Will need to continue to follow on outpatient basis # History of renal cell carcinoma -Status post resection #DVT ppx: Lovenox subcu Corin Flores MD Time spent in the patient's overall evaluation,decision-making process, review of diagnostic data, adjustment of management, discussion with other providers, nursing nursing and ancillary staff involved in patient's care documentation, 39Minutes Charges/Coding Visit Charges Inpatient E&M: 76982 Subs Hosp L2 12/22/24 1351 Cosigner Signature (if applicable): CC: ~ Signed [facility]03-14-2025 Progress note Author Corin Flores [facility] Note Date/Time December 21, 2024 4:0 6pm [facility] Medical Records Department [address] [place] [address] Progress Note - Hospitalist 12/21/24 0739 MR#: [id number] Acct: [id number] Name: ALVINO NINA Rep #:[id number] : 1965 59 From: Corin Flores MD PCP: Care Physician,No Primary Status :ADM GILLES Location: [place] [address] Reason for Visit Reason for Visit: Diagnoses Nausea (12/18/24) Subjective Subjective Patient sitting up with friend in room, received the Haldol and seem to work initially the patient is nauseous again, discussed negative test results and patient little bit tearful because she was hoping there would be something that we would find that we could treat. Does report over the past couple of days sheintermittently will be a little lightheaded or dizzy Objective Data Objective Data Vital Signs: Vital Signs Temp Pulse Resp BP Pulse Ox O2 Del Method 97.9 F 68 16 149/90 H 98 Room Air 12/21/24 03:49 12/21/24 03:49 12/21/24 03:49 12/21/24 03:49 12/21/24 03:49 12/21/24 03:49 Oxygen Delivery Method Room Air Weight: 90.492 kg Body Mass Index (BMI) 37.7 Intake & Output: Intake and Output for Last 24 Hours 12/19/24 12/20/24 12/21/24 23:59 23:59 23:59 Intake Total 1000 / 1000 300 / 500 200 / 200 Balance 1000 / 1000 300 / 500 200 / 200 Medical Nutrition Assessment Dietitian: Malnutrition Criteria Met Start: 12/19/24 11:40 Freq: Status: Active Protocol: Document 12/19/24 15:47 SB (Rec: 12/19/24 15:47 SB [id number]) Nutrition Malnutrition Evidence of Yes Malnutrition Exists Malnutrition (severe Chronic ): Evidenced By Suboptimal Energy Intake (Severe),Weight Loss (Severe) Clinical Problem Chronic Disease or Condition Related Malnutrition Etiology severe related to inadequate oral intake and increased energy expenditure d/t renal cell cancer Signs/Symptoms as evidenced by PO meeting <75% of estimated nutrition needs x >3 months and 8% unintentional weight loss x 1 month. Status Active Problem Recommendation Dietitian Recommend advanced diet as tolerated to regular diet. Recommendations/ As diet is advanced order 240ml chocolate carnation Changes instant breakfast TID with meals. Will monitor weight trends. Lab / Micro Data 12/21/24 06:10 12/21/24 06:10 Labs: Laboratory Results - last 24 hr 12/20/24 06:28: Sodium 143, Potassium 3.5, Chloride 110 H, Carbon Dioxide 23.5, Anion Gap 10, BUN 13, Creatinine 0.86, Estim Creat Clear Calc 71.25, Est GFR (MDRD) Non-Af 77, BUN/Creatinine Ratio 15.2, Glucose 90, Calcium 8.6, Magnesium 2.3 H, Total Bilirubin 0.47, AST 20, ALT 15, Alkaline Phosphatase 51, Total Protein 5.9, Albumin 3.8, Globulin 2.1 L, Albumin/Globulin Ratio 1.8 12/21/24 06:10: WBC 4.4, RBC 3.68 L, Hgb 11.3 L, Hct 33.0 L, MCV 89.7, MCH 30.7,MCHC 34.2, RDW Std Deviation 38.4, RDW Coeff of Marcia 11.8, Plt Count 177, MPV 10.0 Micro: Microbiology 12/19/24 20:40 Stool Enteric Bacteriology - Final 12/19/24 20:40 Stool C. difficile GDH Antigen & Toxins - Final 12/19/24 20:40 Stool Clostridioides difficile (PCR) - Final Radiography Diagnostic Testing: Radiology Impression Abdomen/Pelvis CT 12/20/24 18:18 IMPRESSION: 1. No acute findings in the abdomen and pelvis. 2. 10 mm left hepatic lobe lesion, suggestive of a hemangioma. This may be further evaluated with MRI of the liver with and without contrast. 3. Diffuse osteopenia and multilevel compression deformities thoracolumbar spineas described above. One or more dose reduction techniques were used (e.g., Automated exposure control, adjustment of the mA and/or kV according to patient size, use of iterative reconstruction technique). Reading [facility] Physical Exam Narrative General: Alert, oriented, no apparent distress HEENT: Atraumatic, normocephalic Eyes: Anicteric, normal conjunctiva, extraocular movements grossly intact Neck: Supple Respiratory: Clear to auscultation bilaterally, normal respiratory effort Cardiovascular: Regular rate and rhythm GI: Soft, nontender, nondistended Extremities: No edema Musculoskeletal: Moving all extremities Neuro: No overt focal neurological deficits Skin: No rashes appreciated Psych: Tearful at times Assessment & Plan Assessment/Plan (1) Intractable nausea: PLAN: Plan # Intractable nausea -Patient has chronic intermittent nausea but reports it has been worse since Tuesday, does find the IV antiemetics helpful but since symptoms return when it starts to wear off -Does not necessarily find the scopolamine patch helpful -Patient tolerating diet so diet has been advanced to transitional -Does also report that, while she has chronic diarrhea, her stool today was different for her so stool studies have been ordered -Of note patient does use medical marijuana, unclear if this could be contributing -GI consult pending -12/20: GI evaluated, CT abdomen pelvis ordered as well as a gastric emptying study, doing well with IV nausea medication so this has been continued, tolerating transitional diet, will continue. Of note patient has chronic pain due to her multiple myeloma and vertebral fractures and was on a fentanyl patch,she had been on this for months consistently but took it off the day prior to coming in that she was worried maybe it was making her worse, do suspect that some of the additional diarrhea and maybe some of the additional nausea on top of what she was already experiencing may be due to opiate withdrawal, patient verbalizes understanding, does not want to put her fentanyl patch back on at this time -12/21: CT of the abdomen and pelvis with no acute process, gastric emptying study within normal limits, patient back on diet, GI following and patient givena dose of IV steroids and started on scheduled Haldol, seem to help initially but patient becoming nauseous again, appreciate further GI recommendations, supportive care provided Chronic medical problems: #Depression/anxiety -Continue home medications -12/20: Due to patient's nausea she had not been taking her BuSpar or her Lexaproand thus was also refusing them here, discussed with patient, these have been discontinued and she does not wish to be taking them at this time # Chronic back pain -Due to multiple vertebral fractures -Supportive care -12/20: Patient 100 mL fentanyl patch as above, while it is likely not the cause of all of her symptoms and likely is exacerbating them on top of her already worsened symptoms, supportive care provided # Multiple myeloma -Patient of [facility] oncology undergoing chemotherapy -Patient initially went to [facility] ER for the same complaints on Tuesday night and was kept in ER overnight and discharged home after negative CAT scan and with some improvement with Zofran -Given continued symptoms she presented to [place] ER -Supportive care as above -12/20: Will need to continue to follow on outpatient basis # History of renal cell carcinoma -Status post resection #DVT ppx: Lovenox subcu Corin Flores MD Time spent in the patient's overall evaluation,decision-making process, review of diagnostic data, adjustment of management, discussion with other providers, nursing nursing and ancillary staff involved in patient's care documentation, 40Minutes Charges/Coding Visit Charges Inpatient E&M: 89768 Subs Hosp L2 12/21/24 1606 <Electronically signed by Corin Flores MD> Cosigner Signature (if applicable): CC: ~ Signed [facility] Work Phone: 1(464) 359-939903-14-2025 Progress note [facility] Medical Records Department [address] [place] [address] Progress Note - Hospitalist 12/21/24 0739 MR#: [id number] Acct: [id number] Name: ALVINO NINA Rep #:[id number] : 1965 59 From: Coirn Flores MD PCP: Care Physician,No Primary Status :ADM GILLES Location: [place] [address] Reason for Visit Reason for Visit: Diagnoses Nausea (12/18/24) Subjective Subjective Patient sitting up with friend in room, received the Haldol and seem to work initially the patient is nauseous again, discussed negative test results and patient little bit tearful because she was hoping there would be something that we would find that we could treat. Does report over the past couple of days sheintermittently will be a little lightheaded or dizzy Objective Data Objective Data Vital Signs: Vital Signs Temp Pulse Resp BP Pulse Ox O2 Del Method 97.9 F 68 16 149/90 H 98 Room Air 12/21/24 03:49 12/21/24 03:49 12/21/24 03:49 12/21/24 03:49 12/21/24 03:49 12/21/24 03:49 Oxygen Delivery Method Room Air Weight: 90.492 kg Body Mass Index (BMI) 37.7 Intake & Output: Intake and Output for Last 24 Hours 12/19/24 12/20/24 12/21/24 23:59 23:59 23:59 Intake Total 1000 / 1000 300 / 500 200 / 200 Balance 1000 / 1000 300 / 500 200 / 200 Medical Nutrition Assessment Dietitian: Malnutrition Criteria Met Start: 12/19/24 11:40 Freq: Status: Active Protocol: Document 12/19/24 15:47 SB (Rec: 12/19/24 15:47 SB [id number]) Nutrition Malnutrition Evidence of Yes Malnutrition Exists Malnutrition (severe Chronic ): Evidenced By Suboptimal Energy Intake (Severe),Weight Loss (Severe) Clinical Problem Chronic Disease or Condition Related Malnutrition Etiology severe related to inadequate oral intake and increased energy expenditure d/t renal cell cancer Signs/Symptoms as evidenced by PO meeting <75% of estimated nutrition needs x >3 months and 8% unintentional weight loss x 1 month. Status Active Problem Recommendation Dietitian Recommend advanced diet as tolerated to regular diet. Recommendations/ As diet is advanced order 240ml chocolate carnation Changes instant breakfast TID with meals. Will monitor weight trends. Lab / Micro Data 12/21/24 06:10 12/21/24 06:10 Labs: Laboratory Results - last 24 hr 12/20/24 06:28: Sodium 143, Potassium 3.5, Chloride 110 H, Carbon Dioxide 23.5, Anion Gap 10, BUN 13, Creatinine 0.86, Estim Creat Clear Calc 71.25, Est GFR (MDRD) Non-Af 77, BUN/Creatinine Ratio 15.2, Glucose 90, Calcium 8.6, Magnesium 2.3 H, Total Bilirubin 0.47, AST 20, ALT 15, Alkaline Phosphatase 51, Total Protein 5.9, Albumin 3.8, Globulin 2.1 L, Albumin/Globulin Ratio 1.8 12/21/24 06:10: WBC 4.4, RBC 3.68 L, Hgb 11.3 L, Hct 33.0 L, MCV 89.7, MCH 30.7,MCHC 34.2, RDW Std Deviation 38.4, RDW Coeff of Marcia 11.8, Plt Count 177, MPV 10.0 Micro: Microbiology 12/19/24 20:40 Stool Enteric Bacteriology - Final 12/19/24 20:40 Stool C. difficile GDH Antigen & Toxins - Final 12/19/24 20:40 Stool Clostridioides difficile (PCR) - Final Radiography Diagnostic Testing: Radiology Impression Abdomen/Pelvis CT 12/20/24 18:18 IMPRESSION: 1. No acute findings in the abdomen and pelvis. 2. 10 mm left hepatic lobe lesion, suggestive of a hemangioma. This may be further evaluated with MRI of the liver with and without contrast. 3. Diffuse osteopenia and multilevel compression deformities thoracolumbar spineas described above. One or more dose reduction techniques were used (e.g., Automated exposure control, adjustment of the mA and/or kV according to patient size, use of iterative reconstruction technique). Reading Location: [facility] Physical Exam Narrative General: Alert, oriented, no apparent distress HEENT: Atraumatic, normocephalic Eyes: Anicteric, normal conjunctiva, extraocular movements grossly intact Neck: Supple Respiratory: Clear to auscultation bilaterally, normal respiratory effort Cardiovascular: Regular rate and rhythm GI: Soft, nontender, nondistended Extremities: No edema Musculoskeletal: Moving all extremities Neuro: No overt focal neurological deficits Skin: No rashes appreciated Psych: Tearful at times Assessment & Plan Assessment/Plan (1) Intractable nausea: PLAN: Plan # Intractable nausea -Patient has chronic intermittent nausea but reports it has been worse since Tuesday, does find the IV antiemetics helpful but since symptoms return when it starts to wear off -Does not necessarily find the scopolamine patch helpful -Patient tolerating diet so diet has been advanced to transitional -Does also report that, while she has chronic diarrhea, her stool today was different for her so stool studies have been ordered -Of note patient does use medical marijuana, unclear if this could be contributing -GI consult pending -12/20: GI evaluated, CT abdomen pelvis ordered as well as a gastric emptying study, doing well withIV nausea medication so this has been continued, tolerating transitional diet, will continue. Of note patient has chronic pain due to her multiple myeloma and vertebral fractures and was on a fentanyl patch,she had been on this for months consistently but took it off the day prior to coming in thatshe was worried maybe it was making her worse, do suspect that some of the additional diarrhea and maybe some of the additional nausea on top of what she was already experiencing may be due to opiatewithdrawal, patient verbalizes understanding, does not want to put her fentanyl patch back on at thi s time -12/21: CT of the abdomen and pelvis with no acute process, gastric emptying study within normal limits, patient back on diet, GI following and patient givena dose of IV steroids and started on scheduled Haldol, seem to help initially but patient becoming nauseous again, appreciate further GI recomme ndations, supportive care provided Chronic medical problems: #Depression/anxiety -Continue home medications -12/20: Due to patient's nausea she had not been taking her BuSpar or her Lexaproand thus was also refusing them here, discussed with patient, these have been discontinued and she does not wish to be taking them at this time # Chronic back pain -Due to multiple vertebral fractures -Supportive care -12/20: Patient 100 mL fentanyl patch as above, while it is likely not the cause of all of her symptoms and likely is exacerbating them on top of her already worsened symptoms, supportive care provided # Multiple myeloma -Patient of [facility] oncology undergoing chemotherapy -Patient initially went to [facility] ER for the same complaints on Tuesday night and was kept in ER overnight and discharged home after negative CAT scan and with some improvement with Zofran -Given continued symptoms she presented to [place] ER -Supportive care as above -12/20: Will need to continue to follow on outpatient basis # History of renal cell carcinoma -Status post resection #DVT ppx: Lovenox subcu Corin Flores MD Time spent in the patient's overall evaluation,decision-making process, review of diagnostic data, adjustment of management, discussion with other providers, nursing nursing and ancillary staff involved in patient's care documentation, 40Minutes Charges/Coding Visit Charges Inpatient E&M: 66132 Subs Hosp L2 12/21/24 1606 Cosigner Signature (if applicable): CC: ~ Signed [facility]03-14-2025 Nuclear medicine Diagnostic study note [facility] Imaging Services [address] [place] [address] Gastric Emptying Study MR#: [id number] Acct: [id number] Name: ALVINO NINA Rep #: [id number] : 1965 F 59 From: Jovan Carcamo MD PCP: Care Physician,No Primary Status: ADM GILLES Study:Gastric Emptying Study Date of Exam: 12/20/24 Exam# [id number] Ordering Dr: Teresa Hernández DO PROCEDURE: GASTRIC EMPTYING STUDY REASON FOR EXAM: INTRACTABLE NAUSEA Chemotherapy for multiple myeloma. TECHNIQUE: The patient ingested a mixture of 1.2 mCi of sulfur colloid and oatmeal. The gastric emptying scan was obtained. RADIOPHARMACEUTICAL: 1.2 mCi of technetium labeled sulfur colloid. COMPARISON: None. FINDINGS: At 60 minutes, 49% of the radiopharmaceutical exited the stomach. This is a normal study. NM/Gastric Emptying Study IMPRESSION: NO SCINTIGRAPHIC EVIDENCE OF delayed gastric emptying.. Reading Location: [place] [address] CC: Dr. Corin Flores MD; No Primary Care Physician; Celso Hernández DO ~ Franchise Consultant: Signed [facility]03-13-2025 Progress note Author Corin Flores [facility] Note Date/Time December 20, 2024 5:3 1pm [facility] Medical Records Department [address] [place] [address] Progress Note - Hospitalist 12/20/24 1728 MR#: [id number] Acct: [id number] Name: NUPURALVINO Rep #:[id number] : 1965 59 From: Corin Flores MD PCP: Care Physician,No Primary Status :ADM GILLES Location: [place] [address] Reason for Visit Reason for Visit: Diagnoses Nausea (12/18/24) Subjective Subjective Patient reports she does well as long she takes the IV nausea medicine, is helping her tolerate food, she is concerned as soon as it starts to wear off shehas resumption of her nausea Objective Data Objective Data Vital Signs: Vital Signs Temp Pulse Resp BP Pulse Ox O2 Del Method 97.8 F 78 14 149/97 H 99 Room Air 12/20/24 17:00 12/20/24 17:00 12/20/24 17:00 12/20/24 17:00 12/20/24 17:00 12/20/24 17:00 Oxygen Delivery Method Room Air Weight: 90.492 kg Body Mass Index (BMI) 37.7 Intake & Output: Intake and Output for Last 24 Hours 12/18/24 12/19/24 12/20/24 23:59 23:59 23:59 Intake Total 1000 / 1000 1000 / 1000 300 / 300 Balance 1000 / 1000 1000 / 1000 300 / 300 Medical Nutrition Assessment Dietitian: Malnutrition Criteria Met Start: 12/19/24 11:40 Freq: Status: Active Protocol: Document 12/19/24 15:47 SB (Rec: 12/19/24 15:47 SB [id number]) Nutrition Malnutrition Evidence of Yes Malnutrition Exists Malnutrition (severe Chronic ): Evidenced By Suboptimal Energy Intake (Severe),Weight Loss (Severe) Clinical Problem Chronic Disease or Condition Related Malnutrition Etiology severe related to inadequate oral intake and increased energy expenditure d/t renal cell cancer Signs/Symptoms as evidenced by PO meeting <75% of estimated nutrition needs x >3 months and 8% unintentional weight loss x 1 month. Status Active Problem Recommendation Dietitian Recommend advanced diet as tolerated to regular diet. Recommendations/ As diet is advanced order 240ml chocolate carnation Changes instant breakfast TID with meals. Will monitor weight trends. Lab / Micro Data 12/20/24 06:28 12/20/24 06:28 Labs: Laboratory Results - last 24 hr 12/20/24 06:28: WBC 4.3 L, RBC 3.88 L, Hgb 11.7 L, Hct 34.8 L, MCV 89.7, MCH 30.2, MCHC 33.6, RDW Std Deviation 38.5, RDW Coeff of Marcia 11.8, Plt Count 166, MPV 9.4, Sodium 143, Potassium 3.5, Chloride 110 H, Carbon Dioxide 23.5, Anion Gap 10, BUN 13, Creatinine 0.86, Estim Creat Clear Calc 71.25, Est GFR (MDRD) Non-Af 77, BUN/Creatinine Ratio 15.2, Glucose 90, Calcium 8.6, Magnesium 2.3 H, Total Bilirubin 0.47, AST 20, ALT 15, Alkaline Phosphatase 51, Total Protein 5.9, Albumin 3.8, Globulin 2.1 L, Albumin/Globulin Ratio 1.8 Micro: Microbiology 12/19/24 20:40 Stool Enteric Bacteriology - Final 12/19/24 20:40 Stool C. difficile GDH Antigen & Toxins - Final 12/19/24 20:40 Stool Clostridioides difficile (PCR) - Final Physical Exam Narrative General: Alert, oriented, no apparent distress HEENT: Atraumatic, normocephalic Eyes: extraocular movements grossly intact Neck: Supple Respiratory: normal respiratory effort Cardiovascular: no edema appreciated GI: nondistended Extremities: Moving all extremities Neuro: No overt focal neurological deficits Psych: Cooperative Assessment & Plan Assessment/Plan (1) Intractable nausea: PLAN: Plan # Intractable nausea -Patient has chronic intermittent nausea but reports it has been worse since Tuesday, does find the IV antiemetics helpful but since symptoms return when it starts to wear off -Does not necessarily find the scopolamine patch helpful -Patient tolerating diet so diet has been advanced to transitional -Does also report that, while she has chronic diarrhea, her stool today was different for her so stool studies have been ordered -Of note patient does use medical marijuana, unclear if this could be contributing -GI consult pending -12/20: GI evaluated, CT abdomen pelvis ordered as well as a gastric emptying study, doing well with IV nausea medication so this has been continued, tolerating transitional diet, will continue. Of note patient has chronic pain due to her multiple myeloma and vertebral fractures and was on a fentanyl patch,she had been on this for months consistently but took it off the day prior to coming in that she was worried maybe it was making her worse, do suspect that some of the additional diarrhea and maybe some of the additional nausea on top of what she was already experiencing may be due to opiate withdrawal, patient verbalizes understanding, does not want to put her fentanyl patch back on at this time #Depression/anxiety -Continue home medications -12/20: Due to patient's nausea she had not been taking her BuSpar or her Lexaproand thus was also refusing them here, discussed with patient, these have been discontinued and she does not wish to be taking them at this time # Chronic back pain -Due to multiple vertebral fractures -Supportive care -12/20: Patient 100 mL fentanyl patch as above, while it is likely not the cause of all of her symptoms and likely is exacerbating them on top of her already worsened symptoms, supportive care provided # Multiple myeloma -Patient of [facility] oncology undergoing chemotherapy -Patient initially went to [facility] ER for the same complaints on Tuesday night and was kept in ER overnight and discharged home after negative CAT scan and with some improvement with Zofran -Given continued symptoms she presented to [place] ER -Supportive care as above -12/20: Will need to continue to follow on outpatient basis Chronic medical problems: # History of renal cell carcinoma -Status post resection #DVT ppx: Lovenox subcu Corin Flores MD Charges/Coding Visit Charges Inpatient E&M: 18628 Subs Hosp L2 12/20/24 1731 <Electronically signed by Corin Flores MD> Cosigner Signature (if applicable): CC: ~ Signed [facility] Work Phone: 1(130) 572-534303-13-2025 Radiology Diagnostic study note [facility] Imaging Services [address] [place], [place] [address] Abdomen/Pelvis WITH Contrast MR#: [id number] Acct: [id number] Name: ALVINO NINA Rep #: [id number] : 1965 F 59 From: Beatriz Rendon MD PCP: Care Physician,No Primary Status: ADM GILLES Study:Abdomen/Pelvis WITH Contrast Date of Ex am: 12/20/24 Exam# [id number] Ordering Dr: Teresa Hernández DO PROCEDURE: ABDOMEN/PELVIS WITH CONTRAST REASON FOR EXAM: ABDOMINAL AND INTRACTABLE NAUSEA TECHNIQUE: Abdomen and pelvis CT with intravenous contrast. IV CONTRAST: COMPARISON: None. FINDINGS: Lung bases: Clear Liver: Homogeneous attenuation. 10 mm left hepatic lobe low-attenuation lesion (series 2, image 53), with suggestion of peripheral nodular enhancement, likely represents a hemangioma. Other scatteredbilobar low-attenuation lesions, likely represent simple cysts. . Gallbladder: No ductal dilation. Gallbladder is unremarkable Spleen: Unremarkable. Pancreas: Unremarkable. Adrenals: Unremarkable. Kidneys: Unremarkable. Bladder: Unremarkable. Reproductive Organs: Unremarkable. Bowel: Stomach is unremarkable. No bowel dilation or significant wall thickening. Enteric contrast is noted throughout the small bowel and colon. Appendix is normal. Appendix: Appendix is normal. Lymph nodes: No suspicious lymph node enlargement. Vasculature: Mild diffuse atherosclerotic calcifications are noted. Peritoneum / Retroperitoneum: No ascites. No free air. Bones: Diffuse osteopenia. Phwkvall-kj-znkzhe multilevel compression deformities throughout the imaged thoracolumbar spine. Postoperative changes L5 kyphoplasty. Jolq-rl-jhxecnmd multilevel degenerative changes. CT/Abdomen/Pelvis WITH Contrast IMPRESSION: 1. No acute findings in the abdomen and pelvis. 2. 10 mm left hepatic lobe lesion, suggestive of a hemangioma. This may be further evaluated with MRI of the liver with and without contrast. 3. Diffuse osteopenia and multilevel compression deformities thoracolumbar spineas described above. One or more dose reduction techniques were used (e.g., Automated exposure control, adjustment of the mA and/or kV according to patient size, use of iterative reconstruction technique). Reading Location: [place] CC: No Primary Care Physician; Celso Hernández, DO Jaleel Franchise Consultant: Signed [facility]03-13-2025 Progress note [facility] Medical Records Department [address] [place] [address] Progress Note - Hospitalist 12/20/24 1728 MR#: [id number] Acct: [id number] Name: ALVINO NINA Rep #:[id number] : 1965 59 From: Corin Flores MD PCP: Care Physician,No Primary Status :ADM GILLES Location: [place] Reason for Visit Reason for Visit: Diagnoses Nausea (12/18/24) Subjective Subjective Patient reports she does well as long she takes the IV nausea medicine, is helping her tolerate food, she is concerned as soon as it starts to wear off shehas resumption of her nausea Objective Data Objective Data Vital Signs: Vital Signs Temp Pulse Resp BP Pulse Ox O2 Del Method 97.8 F 78 14 149/97 H 99 Room Air 12/20/24 17:00 12/20/24 17:00 12/20/24 17:00 12/20/24 17:00 12/20/24 17:00 12/20/24 17:00 Oxygen Delivery Method Room Air Weight: 90.492 kg Body Mass Index (BMI) 37.7 Intake & Output: Intake and Output for Last 24 Hours 12/18/24 12/19/24 12/20/24 23:59 23:59 23:59 Intake Total 1000 / 1000 1000 / 1000 300 / 300 Balance 1000 / 1000 1000 / 1000 300 / 300 Medical Nutrition Assessment Dietitian: Malnutrition Criteria Met Start: 12/19/24 11:40 Freq: Status: Active Protocol: Document 12/19/24 15:47 SB (Rec: 12/19/24 15:47 SB [id number]) Nutrition Malnutrition Evidence of Yes Malnutrition Exists Malnutrition (severe Chronic ): Evidenced By Suboptimal Energy Intake (Severe),Weight Loss (Severe) Clinical Problem Chronic Disease or Condition Related Malnutrition Etiology severe related to inadequate oral intake and increased energy expenditure d/t renal cell cancer Signs/Symptoms as evidenced by PO meeting <75% of estimated nutrition needs x >3 months and 8% unintentional weight loss x 1 month. Status Active Problem Recommendation Dietitian Recommend advanced diet as tolerated to regular diet. Recommendations/ As diet is advanced order 240ml chocolate carnation Changes instant breakfast TID with meals. Will monitor weight trends. Lab / Micro Data 12/20/24 06:28 12/20/24 06:28 Labs: Laboratory Results - last 24 hr 12/20/24 06:28: WBC 4.3 L, RBC 3.88 L, Hgb 11.7 L, Hct 34.8 L, MCV 89.7, MCH 30.2, MCHC 33.6, RDW Std Deviation 38.5, RDW Coeff of Marcia 11.8, Plt Count 166, MPV 9.4, Sodium 143, Potassium 3.5, Chloride 110 H, Carbon Dioxide 23.5, Anion Gap 10, BUN 13, Creatinine 0.86, Estim Creat Clear Calc 71.25, Est GFR (MDRD) Non-Af 77, BUN/Creatinine Ratio 15.2, Glucose 90, Calcium 8.6, Magnesium 2.3 H, Total Bilirubin 0.47, AST 20, ALT 15, Alkaline Phosphatase 51, Total Protein 5.9, Albumin 3.8, Globulin 2.1 L, Albumin/Globulin Ratio 1.8 Micro: Microbiology 12/19/24 20:40 Stool Enteric Bacteriology - Final 12/19/24 20:40 Stool C. difficile GDH Antigen & Toxins - Final 12/19/24 20:40 Stool Clostridioides difficile (PCR) - Final Physical Exam Narrative General: Alert, oriented, no apparent distress HEENT: Atraumatic, normocephalic Eyes: extraocular movements grossly intact Neck: Supple Respiratory: normal respiratory effort Cardiovascular: no edema appreciated GI: nondistended Extremities: Moving all extremities Neuro: No overt focal neurological deficits Psych: Cooperative Assessment & Plan Assessment/Plan (1) Intractable nausea: PLAN: Plan # Intractable nausea -Patient has chronic intermittent nausea but reports it has been worse since Tuesday, does find the IV antiemetics helpful but since symptoms return when it starts to wear off -Does not necessarily find the scopolamine patch helpful -Patient tolerating diet so diet has been advanced to transitional -Does also report that, while she has chronic diarrhea, her stool today was different for her so stool studies have been ordered -Of note patient does use medical marijuana, unclear if this could be contributing -GI consult pending -12/20: GI evaluated, CT abdomen pelvis ordered as well as a gastric emptying study, doing well withIV nausea medication so this has been continued, tolerating transitional diet, will continue. Of note patient has chronic pain due to her multiple myeloma and vertebral fractures and was on a fentanyl patch,she had been on this for months consistently but took it off the day prior to coming in thatshe was worried maybe it was making her worse, do suspect that some of the additional diarrhea and maybe some of the additional nausea on top of what she was already experiencing may be due to opiatewithdrawal, patient verbalizes understanding, does not want to put her fentanyl patch back on at thi s time #Depression/anxiety -Continue home medications -12/20: Due to patient's nausea she had not been taking her BuSpar or her Lexaproand thus was also refusing them here, discussed with patient, these have been discontinued and she does not wish to be taking them at this time # Chronic back pain -Due to multiple vertebral fractures -Supportive care -12/20: Patient 100 mL fentanyl patch as above, while it is likely not the cause of all of her symptoms and likely is exacerbating them on top of her already worsened symptoms, supportive care provided # Multiple myeloma -Patient of [facility] oncology undergoing chemotherapy -Patient initially went to [facility] ER for the same complaints on Tuesday night and was kept in ER overnight and discharged home after negative CAT scan and with some improvement with Zofran -Given continued symptoms she presented to [place] ER -Supportive care as above -12/20: Will need to continue to follow on outpatient basis Chronic medical problems: # History of renal cell carcinoma -Status post resection #DVT ppx: Lovenox subcu Corin Flores MD Charges/Coding Visit Charges Inpatient E&M: 72086 Subs Hosp L2 12/20/24 1731 Cosigner Signature (if applicable): CC: ~ Signed [facility]03-12-2025 Progress note Author Corin Flores [facility] Note Date/Time December 19, 2024 3:2 8pm [facility] Medical Records Department [address] [place] [address] Progress Note - Hospitalist 12/19/24 1521 MR#: [id number] Acct: [id number] Name: ALVINO NINA Rep #:[id number] : 1965 59 From: Corin Flores MD PCP: Care Physician,No Primary Status :ADM GILLES Location: [address] Reason for Visit Reason for Visit: Diagnoses Nausea (12/18/24) Subjective Subjective Patient reports her nausea is significantly improved with the IV medication but returns as it wears off, does not necessarily find the scopolamine patch helpful, does report intermittent chronic diarrhea but said that today she had astool that was abnormal for her. Also reports that her nausea does not seem to have a specific temporal pattern with her chemotherapy and happens almost at random but is chronic in nature, she is concerned that there is something additional wrong Objective Data Objective Data Vital Signs: Vital Signs Temp Pulse Resp BP Pulse Ox O2 Del Method 98.6 F 72 14 155/89 H 99 Room Air 12/19/24 14:33 12/19/24 14:33 12/19/24 14:34 12/19/24 14:33 12/19/24 14:34 12/19/24 14:34 Oxygen Delivery Method Room Air Weight: 90.492 kg Body Mass Index (BMI) 37.7 Intake & Output: Intake and Output for Last 24 Hours 12/17/24 12/18/24 12/19/24 23:59 23:59 23:59 Intake Total 1000 / 1000 1000 / 1000 Balance 1000 / 1000 1000 / 1000 Lab / Micro Data 12/19/24 06:46 12/19/24 06:46 Labs: Laboratory Results - last 24 hr 12/18/24 17:43: WBC 4.7, RBC 4.23, Hgb 12.8, Hct 37.8, MCV 89.4, MCH 30.3, MCHC 33.9, RDW Std Deviation 38.3, RDW Coeff of Marcia 11.8, Plt Count 190, MPV 9.6, Immature Gran % (Auto) 0.400, Neut % (Auto) 69.8, Lymph % (Auto) 12.7 L, [place] % (Auto) 14.4 H, Eos % (Auto) 0.6, Baso % (Auto) 2.1 H, Absolute Neuts (auto) 3.3,Absolute Lymphs (auto) 0.60 L, Nucleated RBC % 0, Sodium 142, Potassium 3.9, Chloride 105, Carbon Dioxide 23.7, Anion Gap 13, BUN 14, Creatinine 0.86, Estim Creat Clear Calc 77.75, Est GFR (MDRD) Non-Af 78, BUN/Creatinine Ratio 16.0, Glucose 114 H, Calcium 9.6, Total Bilirubin 0.52, AST 28, ALT 17, Alkaline Phosphatase 60, Total Protein 6.7, Albumin 4.2, Globulin 2.6, Albumin/Globulin Ratio 1.6, Lipase 27 12/19/24 06:46: WBC 4.4, RBC 3.72 L, Hgb 11.1 L, Hct 33.4 L, MCV 89.8, MCH 29.8,MCHC 33.2, RDW Std Deviation 38.5, RDW Coeff of Marcia 11.9, Plt Count 172, MPV 10.1, Immature Gran % (Auto) 0.200, Neut % (Auto) 50.2, Lymph % (Auto) 29.5, [place] % (Auto) 16.0 H, Eos % (Auto) 1.8, Baso % (Auto) 2.3 H, Absolute Neuts (auto) 2.2, Absolute Lymphs (auto) 1.29, Nucleated RBC % 0, Sodium 144, Potassium 3.5, Chloride 111 H, Carbon Dioxide 23.4, Anion Gap 10, BUN 11, Creatinine 0.87, Estim Creat Clear Calc 70.43, Est GFR (MDRD) Non-Af 76, BUN/Creatinine Ratio 12.7, Glucose 88, Calcium 8.6 Physical Exam Narrative General: Alert, oriented, no apparent distress HEENT: Atraumatic, normocephalic Eyes: extraocular movements grossly intact Neck: Supple Respiratory: normal respiratory effort Cardiovascular: no edema appreciated GI: nondistended Extremities: Moving all extremities Neuro: No overt focal neurological deficits Psych: Cooperative Assessment & Plan Assessment/Plan (1) Intractable nausea: PLAN: Plan # Intractable nausea -Patient has chronic intermittent nausea but reports it has been worse since Tuesday, does find the IV antiemetics helpful but since symptoms return when it starts to wear off -Does not necessarily find the scopolamine patch helpful -Patient tolerating diet so diet has been advanced to transitional -Does also report that, while she has chronic diarrhea, her stool today was different for her so stool studies have been ordered -Of note patient does use medical marijuana, unclear if this could be contributing -GI consult pending # Multiple myeloma -Patient of [facility] oncology undergoing chemotherapy -Patient initially went to [facility] ER for the same complaints on Tuesday night and was kept in ER overnight and discharged home after negative CAT scan and with some improvement with Zofran -Given continued symptoms she presented to [place] ER -Supportive care as above # History of renal cell carcinoma -Status post resection #Depression/anxiety -Continue home medications # Chronic back pain -Due to multiple vertebral fractures -Supportive care #DVT ppx: Lovenox subcu Corin Flores MD Time spent in the patient's overall evaluation, decision-making process, review of diagnostic data, adjustment of management, discussion with other providers, nursing and ancillary staff involved in patient's care documentation, 35 Minutes Charges/Coding Visit Charges Inpatient E&M: 88432 Subs Hosp L2 12/19/24 1528 <Electronically signed by Corin Flores MD> Cosigner Signature (if applicable): CC: ~ Signed [facility] Work Phone: 1(655) 822-574903-12-2025 Progress note [facility] Medical Records Department [address] [place] [address] Progress Note - Hospitalist 12/19/24 1521 MR#: [id number] Acct: [id number] Name: ALVINO NINA Rep #:[id number] : 1965 59 From: Corin Flores MD PCP: Care Physician,No Primary Status :ADM GILLES Location: MS3 [id number] Reason for Visit Reason for Visit: Diagnoses Nausea (12/18/24) Subjective Subjective Patient reports her nausea is significantly improved with the IV medication but returns as it wearsoff, does not necessarily find the scopolamine patch helpful, does report intermittent chronic diarrhea but said that today she had astool that was abnormal for her. Also reports that her nausea doesnot seem to have a specific temporal pattern with her chemotherapy and happens almost at random but is chronic in nature, she is concerned that there is something additional wrong Objective Data Objective Data Vital Signs: Vital Signs Temp Pulse Resp BP Pulse Ox O2 Del Method 98.6 F 72 14 155/89 H 99 Room Air 12/19/24 14:33 12/19/24 14:33 12/19/24 14:34 12/19/24 14:33 12/19/24 14:34 12/19/24 14:34 Oxygen Delivery Method Room Air Weight: 90.492 kg Body Mass Index (BMI) 37.7 Intake & Output: Intake and Output for Last 24 Hours 12/17/24 12/18/24 12/19/24 23:59 23:59 23:59 Intake Total 1000 / 1000 1000 / 1000 Balance 1000 / 1000 1000 / 1000 Lab / Micro Data 12/19/24 06:46 12/19/24 06:46 Labs: Laboratory Results - last 24 hr 12/18/24 17:43: WBC 4.7, RBC 4.23, Hgb 12.8, Hct 37.8, MCV 89.4, MCH 30.3, MCHC 33.9, RDW Std Deviation 38.3, RDW Coeff of Marcia 11.8, Plt Count 190, MPV 9.6, Immature Gran % (Auto) 0.400, Neut % (Auto) 69.8, Lymph % (Auto) 12.7 L, [place] % (Auto) 14.4 H, Eos % (Auto) 0.6, Baso % (Auto) 2.1 H, AbsoluteNeuts (auto) 3.3,Absolute Lymphs (auto) 0.60 L, Nucleated RBC % 0, Sodium 142, Potassium 3.9, Chloride 105, Carbon Dioxide 23.7, Anion Gap 13, BUN 14, Creatinine 0.86, Estim Creat Clear Calc 77.75, Est GFR (MDRD) Non-Af 78, BUN/Creatinine Ratio 16.0, Glucose 114 H, Calcium 9.6, Total Bilirubin 0.52, AST 28, ALT 17, Alkaline Phosphatase 60, Total Protein 6.7, Albumin 4.2, Globulin 2.6, Albumin/Globulin Ratio 1.6, Lipase 27 12/19/24 06:46: WBC 4.4, RBC 3.72 L, Hgb 11.1 L, Hct 33.4 L, MCV 89.8, MCH 29.8,MCHC 33.2, RDW Std Deviation 38.5, RDW Coeff of Marcia 11.9, Plt Count 172, MPV 10.1, Immature Gran % (Auto) 0.200, Neut %(Auto) 50.2, Lymph % (Auto) 29.5, [place] % (Auto) 16.0 H, Eos % (Auto) 1.8, Baso % (Auto) 2.3 H, Absolute Neuts (auto) 2.2, Absolute Lymphs (auto) 1.29, Nucleated RBC % 0, Sodium 144, Potassium 3.5, Chloride 111 H, Carbon Dioxide 23.4, Anion Gap 10, BUN 11, Creatinine 0.87, Estim Creat Clear Calc 70.43, Est GFR (MDRD) Non-Af 76, BUN/Creatinine Ratio 12.7, Glucose 88, Calcium 8.6 Physical Exam Narrative General: Alert, oriented, no apparent distress HEENT: Atraumatic, normocephalic Eyes: extraocular movements grossly intact Neck: Supple Respiratory: normal respiratory effort Cardiovascular: no edema appreciated GI: nondistended Extremities: Moving all extremities Neuro: No overt focal neurological deficits Psych: Cooperative Assessment & Plan Assessment/Plan (1) Intractable nausea: PLAN: Plan # Intractable nausea -Patient has chronic intermittent nausea but reports it has been worse since Tuesday, does find the IV antiemetics helpful but since symptoms return when it starts to wear off -Does not necessarily find the scopolamine patch helpful -Patient tolerating diet so diet has been advanced to transitional -Does also report that, while she has chronic diarrhea, her stool today was different for her so stool studies have been ordered -Of note patient does use medical marijuana, unclear if this could be contributing -GI consult pending # Multiple myeloma -Patient of [facility] oncology undergoing chemotherapy -Patient initially went to [facility] ER for the same complaints on Tuesday night and was kept in ER overnight and discharged home after negative CAT scan and with some improvement with Zofran -Given continued symptoms she presented to [facility] -Supportive care as above # History of renal cell carcinoma -Status post resection #Depression/anxiety -Continue home medications # Chronic back pain -Due to multiple vertebral fractures -Supportive care #DVT ppx: Lovenox subcu Corin Flores MD Time spent in the patient's overall evaluation, decision-making process, review of diagnostic data,adjustment of management, discussion with other providers, nursing and ancillary staff involved in patient's care documentation, 35 Minutes Charges/Coding Visit Charges Inpatient E&M: 26646 Subs Hosp L2 12/19/24 1528 Cosigner Signature (if applicable): CC: ~ Signed [facility]03-12-2025 History and physical note Author Irineo Perez [facility] Note Date/Time December 19, 2024 4:3 7am [facility] Medical Records Department [address] [place] [address] H&P Exam - Hospitalist 12/18/245 MR#: [id number] Acct: [id number] Name: ALVINO NINA Rep #:[id number] : 1965 59 From: Irineo SCHULTZ PCP: Care Physician,No Primary Status :ADM GILLES [id number] - General General Date of Admission: 12/18/24 Date of Service: 12/18/24 Chief Complaint: nausea and vomiting HPI Narrative ALVINO NINA, is a 59 F with pmhx of multiple myeloma pt of [facility] oncology, undergoing chemo therapy, also with hx of renal cell cancer s/p resection, anxiety and depression, chronic back pain due to multiple vertebral fractures, who presents to [facility] from home for intractable nausea and vomiting. Patient has chronic nausea and vomiting associated with her chemo which progressively worsened around tuesday. She presented to [facility] ER for the same on tuesday night and was kept in the ER overnight. She was treated with a zofran with some improvement in symptoms, had a CT abdomen which according to her was negative, and was sent home. She continues to have nausea and vomiting with somemidepigastric discomfort. Last vomiting was frothy, no blood or coffee grounds noted. Pt is not having diarrhea, last BM was today. Pt is taking zofran at homewith little to no improvement and has also been using medical marijuana that shewas prescribed for nausea but that did not help at all today. In the ER her labsand vitals area normal but her symptoms were unable to be controlled with zofran. She will be placed in observation overnight for symptom control. [facility] Medical History 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 health care History of pneumococcal infection Headache, migraine Carpal tunnel syndrome history of bone fracture Back problem Arthritis Seasonal allergies Endometriosis Screening for intestinal cancer Iron deficiency anemia Renal cell cancer Former tobacco use Obesity Pancreatitis URI, acute History of nausea and vomiting History of abdominal pain Home Medications ?Medication ?Instructions ?Recorded ?Last Taken ?Type menthol 0.44 %-zinc oxide 20.6 % 1 applic topical 0600 ,1800 07/22/20 Unknown Rx topical ointment lorazepam 0.5 mg tablet 0.5 mg PO TID PRN 04/23/21 U nknown History escitalopram oxalate 10 mg tablet 20 mg PO DAILY 07/26 Unknown History furosemide 40 mg tablet 40 mg PO .prn 07/26/22 Unkno wn History glucosamine sulf dipot 1 cap PO 07/26/22 Unknown Hi story chlr,msm,chond 550 mg-C 30 mg-rika 1 mg capsule (Glucosamine Chondroitin) olanzapine 5 mg tablet 5 mg PO DAILY 07/26/22 Unkno wn History Lactobacillus acidophilus 1 1,000 mmu cells PO DAILY # 30 caps 08/19/23 Unknown Rx billion cell capsule (Probiotic Gold Acidophilus) benzonatate 200 mg capsule 200 mg PO TID PRN cough #14 caps 11/14/23 Unknown Rx levofloxacin 500 mg tablet 500 mg PO DAILY #10 tabs Unknown Rx buspirone 7.5 mg tablet 7.5 mg PO 3XD 12/18/24 Unkno wn History fentanyl 25 mcg/hr transdermal 1 patch transdermal Q3D 12/18/24 Unknown History patch meclizine 25 mg tablet 25 mg PO TID 12/18/24 Unknow n History omeprazole 40 mg capsule,delayed 40 mg PO DAILY Unknown History release ondansetron HCl 8 mg tablet 4 mg PO 4X/DAY PRN PRN rachel sea 12/18/24 Unknown History scopolamine base 1 mg over 3 days topical 12/18/24 Unk nown History transdermal patch Allergy/AdvReac Type Severity Reaction Status Date / Time latex Allergy Mild rash Verified 12/18/24 16:54 Penicillins Allergy Unknown Verified 12/18/24 16:54 adhesive tape AdvReac Rash Verified 12/18/24 16:54 Family History Brother Asthma Malignant hyperthermia due to anesthesia Hypertension Grandfather Colon cancer Mother Heart disease Thyroid disorder COPD (chronic obstructive pulmonary disease) Arthritis Anemia Sister Breast cancer Hypertension Thyroid disorder Hypothyroid Arthritis Father Bleeding disorder Cancer Lung Myelodysplastic syndrome Chronic lymphocytic leukemia Alcohol abuse Aunt Myocardial infarction Surgical History History of back surgery s/p kidney cancer Status post endometrial ablation Social History household members: children Smoking Status: Former smoker alcohol intake: current alcohol intake frequency: holidays/special occasions only what type of physical activity do you participate in: walking, bicycling, aerobics and weight training do you feel safe at home: Yes ROS Constitutional Constitutional: Reports anorexia; Denies chills, fatigue or fever(s) ENT HEENT: Denies abnormal hearing, ear pain or epistaxis Cardiovascular Cardiovascular: Denies chest pain, dyspnea on exertion or edema Respiratory/Chest Respiratory/Chest: Denies cough, dyspnea or hemoptysis Gastrointestinal Gastrointestinal: Reports abdominal pain, nausea and vomiting; Denies diarrhea, hematemesis or hematochezia Genitourinary Genitourinary: Denies burning urination, difficulty urinating or dysuria Musculoskeletal Musculoskeletal: Reports back pain Neurologic Neurologic: Denies abnormal gait Psychiatric Psychiatric: Denies anxiety or depression Endocrine Endocrinology: Denies change in body appearance Hematologic/Lymphatic Hematologic/Lymphatic: Denies anemia Allergic/Immunologic Allergic/Immunologic: Denies rhinitis Vital Signs Vital Signs Vital Signs: 12/18/24 16:54 12/18/24 18:53 12/18/24 20:00 Temperature 97.7 F L Temperature Source Oral Pulse Rate 85 72 75 Respiratory Rate 22 H 18 18 Blood Pressure 173/95 H 143/114 H Blood Pressure Mean 121 123 Pulse Ox 100 98 100 Oxygen Delivery Method Room Air Room Air Room Air 12/18/24 21:35 Temperature 98 F Temperature Source Pulse Rate 72 Respiratory Rate 16 Blood Pressure 159/84 H Blood Pressure Mean 109 Pulse Ox 100 Oxygen Delivery Method Weight Weight: 91.5 kg Body Mass Index (BMI) 33.5 Physical Exam Const alert and oriented x3 Constitutional Narrative: frankly nauseous General Appearance: cooperative HEENT normocephalic and head/scalp atraumatic Eyes PERRL Neck no lymphadenopathy Resp normal respiratory effort Cardio regular rate and regular rhythm GI normal to inspection, nondistended, normoactive bowel sounds, soft to palpation,non-tender and non-distended Extremity normal to inspection, full ROM and no clubbing, cyanosis or edema Neuro oriented x3 Psych affect normal Results Lab / Micro Data 12/18/24 17:43 12/18/24 17:43 Labs: Laboratory Results - last 24 hr 12/18/24 17:43: WBC 4.7, RBC 4.23, Hgb 12.8, Hct 37.8, MCV 89.4, MCH 30.3, MCHC 33.9, RDW Std Deviation 38.3, RDW Coeff of Marcia 11.8, Plt Count 190, MPV 9.6, Immature Gran % (Auto) 0.400, Neut % (Auto) 69.8, Lymph % (Auto) 12.7 L, [place] % (Auto) 14.4 H, Eos % (Auto) 0.6, Baso % (Auto) 2.1 H, Absolute Neuts (auto) 3.3,Absolute Lymphs (auto) 0.60 L, Nucleated RBC % 0, Sodium 142, Potassium 3.9, Chloride 105, Carbon Dioxide 23.7, Anion Gap 13, BUN 14, Creatinine 0.86, Estim Creat Clear Calc 77.75, Est GFR (MDRD) Non-Af 78, BUN/Creatinine Ratio 16.0, Glucose 114 H, Calcium 9.6, Total Bilirubin 0.52, AST 28, ALT 17, Alkaline Phosphatase 60, Total Protein 6.7, Albumin 4.2, Globulin 2.6, Albumin/Globulin Ratio 1.6, Lipase 27 Assessment & Plan Assessment/Plan (1) Intractable nausea: PLAN: 1. Intractable nausea and vomiting 2/2 chemotherapy for multiple myeloma -chrnoic but worsening since around tuesday with presentation to [facility] ER Tuesday night and subsequent discharge home with failure of outpatient therapy with zofran and medical marijuana. In the ER today she continues to not have improvement with zofran. Also administered reglan x 1. Labs are unremarkable. Had CT abdomen at [facility] ER which was reportedly normal on tuesday so will defer further imaging at this time. She has developed some upper abdominal discomfort since vomiting today, no blood in vomit or coffee ground emesis. Pt will be placed on IV fluids, with zofran, reglan, and scopolamine. Pt NPO at this time if symptoms improved may attempt to advance in the AM. Continue home PPI. 2. Chronic severe back pain 2/2 approx 10-12x vertebral fractures 2/2 multiple myeloma - continue duragesic patch 3. anx/dep/mood disorder - resume home meds when appropriate (buspirone, lexapro, olanzapine) 4. Hx renal cell cancer s/p resection DVT ppx: lovenox This patient was seen by Irineo Perez PA-C under the supervision of Doctor Watkins. 12/18/242220 <Electronically signed by Irineo SCHULTZ> Cosigner Signature (if applicable): CC: MARION Encarnacion; Dr. Gurmeet Watkins DO; No Primary Care Physician~ Signed ADDENDUM by Dr. Gurmeet Watkins DO on 12/19/24 at 0437 Addendum Patient seen and examined independently. Agree with above assessment. I personally spoke with patient who reports that her nausea, vomiting and GI upsethave markedly improved since admission. She explained that her chemotherapy formultiple myeloma is meant to be lifelong with patient having home treatment failure of Zofran and medical cannabis. She was interested in obtaining gastroenterology consult with Dr. Hernández as he is seen her previously for this same issue. Otherwise she is being volume resuscitated and scopolamine patch appears to be working according to plan. On examination patient appears comfortable with normal vital signs and no abdominal pain at this time. Her questions were answered to the best of my ability. It is expected she should be able to be discharged home in a.m. after GI consultation if she continues to improve. 12/19/24 0684<Electronically signed by Gurmeet Watkins DO> Cosigner Signature (if applicable): cc: MARION Encarnacion; Dr. Gurmeet Watkins DO; No Primary Care Physician ~* Signed [facility] Work Phone: 1(164) 605-231303-12-2025 History and physical note [facility] Medical Records Department [address] [place] [address] H&P Exam - Hospitalist 12/18/242158 MR#: [id number] Acct: [id number] Name: ALVINO NINA Rep #:[id number] : 1965 59 From: Irineo SCHULTZ PCP: Care Physician,No Primary Status :ADM GILLES Location: [place] [address] HPI - General General Date of Admission: 12/18/24 Date of Service: 12/18/24 Chief Complaint: nausea and vomiting HPI Narrative ALVINO NINA, is a 59 F with pmhx of multiple myeloma pt of [facility] oncology, undergoing chemo therapy, also with hx of renal cell cancer s/p resection, anxiety and depression, chronic back pain dueto multiple vertebral fractures, who presents to [place] ER from home for intractable nausea and vomiting. Patient has chronic nausea and vomiting associated with her chemo which progressively worsened around tuesday. She presented to [facility] ER for the same on tuesday night and was kept in the ER overnight. She was treated with a zofran with some improvement in symptoms, had a CT abdomen which according to her was negative, and was sent home. She continues to have nausea and vomiting with somemidepigastric discomfort. Last vomiting was frothy, no blood or coffee grounds noted. Pt is not having diarrhea, last BM was today. Pt is taking zofran at homewith little to no improvement and has also beenusing medical marijuana that shewas prescribed for nausea but that did not help at all today. In the ER her labsand vitals area normal but her symptoms were unable to be controlled with zofran. She will be placed in observation overnight for symptom control. [facility] Medical History 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 health care History of pneumococcal infection Headache, migraine Carpal tunnel syndrome history of bone fracture Back problem Arthritis Seasonal allergies Endometriosis Screening for intestinal cancer Iron deficiency anemia Renal cell cancer Former tobacco use Obesity Pancreatitis URI, acute History of nausea and vomiting History of abdominal pain Home Medications ?Medication ?Instructions ?Recorded ?Last Taken ?Type menthol 0.44 %-zinc oxide 20.6 % 1 applic topical 0600 ,1800 07/22/20 Unknown Rx topical ointment lorazepam 0.5 mg tablet 0.5 mg PO TID PRN 04/23/21 U nknown History escitalopram oxalate 10 mg tablet 20 mg PO DAILY 07/26 Unknown History furosemide 40 mg tablet 40 mg PO .prn 07/26/22 Unkno wn History glucosamine sulf dipot 1 cap PO 07/26/22 Unknown Hi story chlr,msm,chond 550 mg-C 30 mg-rika 1 mg capsule (Glucosamine Chondroitin) olanzapine 5 mg tablet 5 mg PO DAILY 07/26/22 Unkno wn History Lactobacillus acidophilus 1 1,000 mmu cells PO DAILY # 30 caps 08/19/23 Unknown Rx billion cell capsule (Probiotic Gold Acidophilus) benzonatate 200 mg capsule 200 mg PO TID PRN cough #14 caps 11/14/23 Unknown Rx levofloxacin 500 mg tablet 500 mg PO DAILY #10 tabs Unknown Rx buspirone 7.5 mg tablet 7.5 mg PO 3XD 12/18/24 Unkno wn History fentanyl 25 mcg/hr transdermal 1 patch transdermal Q3D 12/18/24 Unknown History patch meclizine 25 mg tablet 25 mg PO TID 12/18/24 Unknow n History omeprazole 40 mg capsule,delayed 40 mg PO DAILY Unknown History release ondansetron HCl 8 mg tablet 4 mg PO 4X/DAY PRN PRN rachel sea 12/18/24 Unknown History scopolamine base 1 mg over 3 days topical 12/18/24 Unk nown History transdermal patch Allergy/AdvReac Type Severity Reaction Status Date / Time latex Allergy Mild rash Verified 12/18/24 16:54 Penicillins Allergy Unknown Verified 12/18/24 16:54 adhesive tape AdvReac Rash Verified 12/18/24 16:54 Family History Brother Asthma Malignant hyperthermia due to anesthesia Hypertension Grandfather Colon cancer Mother Heart disease Thyroid disorder COPD (chronic obstructive pulmonary disease) Arthritis Anemia Sister Breast cancer Hypertension Thyroid disorder Hypothyroid Arthritis Father Bleeding disorder Cancer Lung Myelodysplastic syndrome Chronic lymphocytic leukemia Alcohol abuse Aunt Myocardial infarction Surgical History History of back surgery s/p kidney cancer Status post endometrial ablation Social History household members: children Smoking Status: Former smoker alcohol intake: current alcohol intake frequency: holidays/special occasions only what type of physical activity do you participate in: walking, bicycling, aerobics and weight training do you feel safe at home: Yes ROS Constitutional Constitutional: Reports anorexia; Denies chills, fatigue or fever(s) ENT HEENT: Denies abnormal hearing, ear pain or epistaxis Cardiovascular Cardiovascular: Denies chest pain, dyspnea on exertion or edema Respiratory/Chest Respiratory/Chest: Denies cough, dyspnea or hemoptysis Gastrointestinal Gastrointestinal: Reports abdominal pain, nausea and vomiting; Denies diarrhea, hematemesis or hematochezia Genitourinary Genitourinary: Denies burning urination, difficulty urinating or dysuria Musculoskeletal Musculoskeletal: Reports back pain Neurologic Neurologic: Denies abnormal gait Psychiatric Psychiatric: Denies anxiety or depression Endocrine Endocrinology: Denies change in body appearance Hematologic/Lymphatic Hematologic/Lymphatic: Denies anemia Allergic/Immunologic Allergic/Immunologic: Denies rhinitis Vital Signs Vital Signs Vital Signs: 12/18/24 16:54 12/18/24 18:53 12/18/24 20:00 Temperature 97.7 F L Temperature Source Oral Pulse Rate 85 72 75 Respiratory Rate 22 H 18 18 Blood Pressure 173/95 H 143/114 H Blood Pressure Mean 121 123 Pulse Ox 100 98 100 Oxygen Delivery Method Room Air Room Air Room Air 12/18/24 21:35 Temperature 98 F Temperature Source Pulse Rate 72 Respiratory Rate 16 Blood Pressure 159/84 H Blood Pressure Mean 109 Pulse Ox 100 Oxygen Delivery Method Weight Weight: 91.5 kg Body Mass Index (BMI) 33.5 Physical Exam Const alert and oriented x3 Constitutional Narrative: frankly nauseous General Appearance: cooperative HEENT normocephalic and head/scalp atraumatic Eyes PERRL Neck no lymphadenopathy Resp normal respiratory effort Cardio regular rate and regular rhythm GI normal to inspection, nondistended, normoactive bowel sounds, soft to palpation,non-tender and non-distended Extremity normal to inspection, full ROM and no clubbing, cyanosis or edema Neuro oriented x3 Psych affect normal Results Lab / Micro Data 12/18/24 17:43 12/18/24 17:43 Labs: Laboratory Results - last 24 hr 12/18/24 17:43: WBC 4.7, RBC 4.23, Hgb 12.8, Hct 37.8, MCV 89.4, MCH 30.3, MCHC 33.9, RDW Std Deviation 38.3, RDW Coeff of Marcia 11.8, Plt Count 190, MPV 9.6, Immature Gran % (Auto) 0.400, Neut % (Auto) 69.8, Lymph % (Auto) 12.7 L, [place] % (Auto) 14.4 H, Eos % (Auto) 0.6, Baso % (Auto) 2.1 H, AbsoluteNeuts (auto) 3.3,Absolute Lymphs (auto) 0.60 L, Nucleated RBC % 0, Sodium 142, Potassium 3.9, Chloride 105, Carbon Dioxide 23.7, Anion Gap 13, BUN 14, Creatinine 0.86, Estim Creat Clear Calc 77.75, Est GFR (MDRD) Non-Af 78, BUN/Creatinine Ratio 16.0, Glucose 114 H, Calcium 9.6, Total Bilirubin 0.52, AST 28, ALT 17, Alkaline Phosphatase 60, Total Protein 6.7, Albumin 4.2, Globulin 2.6, Albumin/Globulin Ratio 1.6, Lipase 27 Assessment & Plan Assessment/Plan (1) Intractable nausea: PLAN: 1. Intractable nausea and vomiting 2/2 chemotherapy for multiple myeloma - chrnoic but worsening since around tuesday with presentation to [facility] ER Tuesday night and subsequent discharge home with failure of outpatient therapy with zofran and medical marijuana. In the ER today she continues to nothave improvement with zofran. Also administered reglan x 1. Labs are unremarkable. Had CT abdomen at [facility] ER which was reportedly normal on tuesday so will defer further imaging at this time. She has developed some upper abdominal discomfort since vomiting today, no blood in vomit or coffee ground emesis. Pt will be placed on IV fluids, with zofran, reglan, and scopolamine. Pt NPO at this time if symptoms improved may attempt to advance in the AM. Continue home PPI. 2. Chronic severe back pain 2/2 approx 10-12x vertebral fractures 2/2 multiple myeloma - continue duragesic patch 3. anx/dep/mood disorder - resume home meds when appropriate (buspirone, lexapro, olanzapine) 4. Hx renal cell cancer s/p resection DVT ppx: lovenox This patient was seen by Irineo Perez PA-C under the supervision of Doctor Watkins. 12/18/242220 Cosigner Signature (if applicable): CC: MARION Encarnacion; Dr. Gurmeet Watkins DO; No Primary Care Physician~ Signed ADDENDUM by Dr. Gurmeet Watkins DO on 12/19/24 at 0437 Addendum Patient seen and examined independently. Agree with above assessment. I personally spoke with patient who reports that her nausea, vomiting and GI upsethave markedly improved since admission. She explained that her chemotherapy formultiple myeloma is meant to be lifelong with patient having home treatment failure of Zofran and medical cannabis. She was interested in obtaining gastroenterology consult with Dr. Hernández as he is seen her previously for this same issue. Otherwise she is being volumeresuscitated and scopolamine patch appears to be working according to plan. On examination patient appears comfortable with normal vital signs and no abdominal pain at this time. Her questions were answered to the best of my ability. It is expected she should be able to be discharged home in a.m. after GI consultation if she continues to improve. 12/19/24 0987 Cosigner Signature (if applicable): cc: MARION Encarnacion; Dr. Gurmeet Watkins DO; No Primary Care Physician ~* Signed [facility]03-11-2025 Evaluation note* Diagnosis Onset Date Resolution Status Admit Date Intractable nausea acute December 18, 2024 9:47pm [facility] Work Phone: 1(990) 665-181603-11-2025 Evaluation note* Diagnosis Onset Date Resolution Status Admit Date Intractable nausea acute December 18, 2024 9:47pm Intractable nausea acute December 26, 2024 10:49am Nausea and vomiting noneactive December 26, 2024 10:49am [facility] Work Phone: 1(176) 235-247403-11-2025 Evaluation note* Diagnosis Onset Date Resolution Status Admit Date Intractable nausea acute December 18, 2024 9:47pm Intractable nausea acute December 26, 2024 10:49am Nausea and vomiting noneactive December 26, 2024 10:49am Intractable nausea acute January 18, 2025 1:21pm Vomiting acute January 18 1:21pm [facility] Work Phone: 1(245) 759-982803-11-2025 Discharge summary Author Surjit Santizo [facility] Note Date/Time December 18, 2024 9:3 2pm [facility] Medical Records Department [address] [place] [address] Emergency Department Summary 12/18/24 MR#: [id number] Acct: [id number] Name: ALVINO NINA Rep #:[id number] : 1965 59 From: Surjit Santizo MD PCP: Care Physician,No Primary Status :REG ER Location: ED HPI HPI - GI History of Present Illness Chief Complaint: Nausea/Vomiting Informant: patient and family Nausea/Vomiting/Emesis GI Symptom: Positive for Nausea and Vomiting Onset: Days Severity: Moderate Diarrhea/Melena/Hematochezia GI Symptom: Negative for Diarrhea, Melena or Hematochezia Associated Symptoms Associated Symptoms: Negative for Dysuria, Frequency, Hematuria or Urgency Narrative Narrative: 59-year-old female history of multi myeloma currently getting chemotherapy she goes 3 weeks on 1 week off. Also history of endometriosis. She had nausea vomiting since Tuesday. She was seen in the [facility] on Tuesday stay in the emergency department overnight had labs and CAT scan which he stated was negative. She was sent home and started having nausea and vomiting again today. No diarrhea. No fever. No dysuria. No significant abdominal pain. Prior similar symptoms: Yes Recent Illness/Hospitalization: Yes PFSH PFS Medical History 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 health care History of pneumococcal infection Headache, migraine Carpal tunnel syndrome history of bone fracture Back problem Arthritis Seasonal allergies Endometriosis Screening for intestinal cancer Iron deficiency anemia Renal cell cancer Former tobacco use Obesity Pancreatitis URI, acute History of nausea and vomiting History of abdominal pain Home Medications ?Medication ?Instructions ?Recorded ?Last Taken ?Type menthol 0.44 %-zinc oxide 20.6 % 1 applic topical 0600 ,1800 07/22/20 Unknown Rx topical ointment lorazepam 0.5 mg tablet 0.5 mg PO TID PRN 04/23/21 U nknown History escitalopram oxalate 10 mg tablet 20 mg PO DAILY 07/26 Unknown History furosemide 40 mg tablet 40 mg PO .prn 07/26/22 Unkno wn History glucosamine sulf dipot 1 cap PO 07/26/22 Unknown Hi story chlr,msm,chond 550 mg-C 30 mg-rika 1 mg capsule (Glucosamine Chondroitin) olanzapine 5 mg tablet 5 mg PO DAILY 07/26/22 Unkno wn History Lactobacillus acidophilus 1 1,000 mmu cells PO DAILY # 30 caps 08/19/23 Unknown Rx billion cell capsule (Probiotic Gold Acidophilus) benzonatate 200 mg capsule 200 mg PO TID PRN cough #14 caps 11/14/23 Unknown Rx levofloxacin 500 mg tablet 500 mg PO DAILY #10 tabs Unknown Rx buspirone 7.5 mg tablet 7.5 mg PO 3XD 12/18/24 Unkno wn History fentanyl 25 mcg/hr transdermal 1 patch transdermal Q3D 12/18/24 Unknown History patch meclizine 25 mg tablet 25 mg PO TID 12/18/24 Unknow n History omeprazole 40 mg capsule,delayed 40 mg PO DAILY Unknown History release ondansetron HCl 8 mg tablet 4 mg PO 4X/DAY PRN PRN rachel sea 12/18/24 Unknown History scopolamine base 1 mg over 3 days topical 12/18/24 Unk nown History transdermal patch Allergy/AdvReac Type Severity Reaction Status Date / Time latex Allergy Mild rash Verified 12/18/24 16:54 Penicillins Allergy Unknown Verified 12/18/24 16:54 adhesive tape AdvReac Rash Verified 12/18/24 16:54 Family History Brother Asthma Malignant hyperthermia due to anesthesia Hypertension Grandfather Colon cancer Mother Heart disease Thyroid disorder COPD (chronic obstructive pulmonary disease) Arthritis Anemia Sister Breast cancer Hypertension Thyroid disorder Hypothyroid Arthritis Father Bleeding disorder Cancer Lung Myelodysplastic syndrome Chronic lymphocytic leukemia Alcohol abuse Aunt Myocardial infarction Surgical History History of back surgery s/p kidney cancer Status post endometrial ablation Social History household members: children Smoking Status: Former smoker alcohol intake: current alcohol intake frequency: holidays/special occasions only what type of physical activity do you participate in: walking, bicycling, aerobics and weight training do you feel safe at home: Yes ROS ROS ED ROS Narrative Nausea and vomiting. No diarrhea. No fever. No significant abdominal pain. Constitutional Constitutional ED: Denies chills or fever(s) ENT ENT ED: Denies ear pain Cardiovascular Cardiovascular: Denies chest pain Respiratory/Chest Respiratory/Chest: Denies cough or dyspnea Gastrointestinal Gastrointestinal: Reports nausea and vomiting; Denies abdominal pain, constipation, diarrhea or melena Genitourinary Genitourinary ED: Denies dysuria or hematuria Musculoskeletal Musculoskeletal: Denies arthralgias or back pain Integumentary Denies abscess or Abrasions Neurologic Neurologic: Denies headache(s) Psychiatric Psychiatric: Denies anxiety or depression Endocrine Endocrinology: Denies polydipsia Hematologic/Lymphatic Hematologic/Lymphatic: Denies easy bleeding Allergic/Immunologic Allergic/Immunologic ED: Denies mouth swelling, tongue swelling or urticaria EXAM Physical Exam Narrative Exam Narrative: 59-year-old female sitting upright in bed. Vital signs are stable afebrile. She does not look septic or toxic. H EENT exam pupils round react light. Extramotions intact. No facial droop. Dry mucous membranes. Tongue midline. Neck nontender no lymphadenopathy. Lungs clear to auscultation bilaterally. Heart regular rhythm rate about 85 no murmur. Chest wall ribs nontender. Abdomen soft, nondistended normal bowel sounds without peritoneal signs. No significanttenderness. Right upper and lower quadrant unremarkable. No hernia or mass. Moving all 4 extremities. Nontender no edema. Normal strength. Neurologicallyshe is awake alert no focal motor deficits. Back nontender. Benign exam open clinically she does look dehydrated. Const Vital Signs: 12/18/24 16:54 12/18/24 18:53 12/18/24 20:00 Temperature 97.7 F L Temperature Source Oral Pulse Rate 85 72 75 Respiratory Rate 22 H 18 18 Blood Pressure 173/95 H 143/114 H Blood Pressure Mean 121 123 Pulse Ox 100 98 100 Oxygen Delivery Method Room Air Room Air Room Air Positive well nourished and well developed; Negative for cachectic, contracturesor unkempt General Appearance ED: well developed; Negative for unkempt, cachectic, contractures or pallor Nutritional Appearance: Negative for cachectic HEENT Reports dry mucous membranes; Denies moist mucous membranes normocephalic and atraumatic Mouth ED: Yes dry mucous membranes Mouth: dry mucous membranes Eyes PERRL and EOMs intact bilaterally General Eye ED: Negative for pale conjunctiva or scleral icterus Neck no lymphadenopathy, supple and no JVD General: Negative for tenderness Carotids: Negative for other Resp normal respiratory effort and clear to auscultation bilaterally Effort and Inspection: Negative for respiratory distress Auscultation: Negative for rales, rhonchi or wheezes Cardio regular rate, regular rhythm, S1 normal heart sound, S2 normal heart sound and no murmurs Rate: Negative for bradycardia or tachycardic Rhythm: Negative for abnormal rhythm GI non-tender, non-distended and no masses Inspection: Negative for abdominal distention Auscultation: normoactive bowel sounds Palpation: soft; Negative for tender or guarding Back/Spine no CVA tenderness General Back: Negative for CVA tenderness Cervical Spine: Negative for cervical spine tenderness Thoracic Spine / Upper Back: Negative for thoracic spinal tenderness Lumbar Spine / Lower Back: Negative for lumbar spinal tenderness Coccyx: Negative for other Extremity full ROM General Extremety ED: Negative for edema or tenderness General Extremity: Negative for edema Neuro CN's II-XII intact bilaterally, moves all extremities and no sensory deficits noted Sensorium / Orientation: alert, oriented to person, oriented to place and oriented to time; Negative for orientation impaired, confused, lethargic or stuporous Motor Exam: Negative for strength 5/5 throughout, general weakness or strength abnormal Psych mental status grossly normal and thought process normal Appearance: Negative for unkempt Attitude: No agitated Mood & Affect: Negative for depressed, anxious or tearful Skin no wounds General Skin Exam: Negative for jaundice or pallor Lesions: no lesions Rashes: no rashes Trauma: Negative for abrasion Nails: Negative for discolored MDM MDM MDM Narrative Medical decision making narrative: 59-year-old female with nausea and vomiting currently on chemotherapy for multiple myeloma. Clinically she looks dehydrated. She received Zofran for nausea and liter normal saline. P.o. fluid challenge. Screening labs. She really just had a CAT scan within the last 48 hours. Her abdomen is benign I donot think she needs additional imaging. Repeat exam at 7:56 PM unchanged. Patient is very emotionally upset and tearful. She is requesting admission. I told her lets try another dose of Zofran. If we cannot get her nausea better we may have to admit her for intractable vomiting. She understands that her labs are completely normal at this time. Repeat exam patient was given a second dose of Zofran and on repeat exam around 9:25 PM she still states she is nauseated. She will be admitted for intractablenausea and vomiting. I have also ordered Reglan. History & Record Review Discussion w/independent historian: Patient and Family Additional record(s) reviewed:: Prior inpatient record Lab Data Attestation: I reviewed the patient's lab results. Lab results narrative: CBC shows a white count of 4.7. H&H 12.8 and 37. Platelets 190. Electrolytes show a gap of 13. Normal BUN and creatinine of 14 and 0.8. Glucose 114. Liver enzymes normal. Lipase normal at 27. Labs: Laboratory Results - last 24 hr 12/18/24 17:43 WBC 4.7 RBC 4.23 Hgb 12.8 Hct 37.8 MCV 89.4 MCH 30.3 MCHC 33.9 RDW Std Deviation 38.3 RDW Coeff of Marcia 11.8 Plt Count 190 MPV 9.6 Immature Gran % (Auto) 0.400 Neut % (Auto) 69.8 Lymph % (Auto) 12.7 L [place] % (Auto) 14.4 H Eos % (Auto) 0.6 Baso % (Auto) 2.1 H Absolute Neuts (auto) 3.3 Absolute Lymphs (auto) 0.60 L Nucleated RBC % 0 Sodium 142 Potassium 3.9 Chloride 105 Carbon Dioxide 23.7 Anion Gap 13 BUN 14 Creatinine 0.86 Estim Creat Clear Calc 77.75 Est GFR (MDRD) Non-Af 78 BUN/Creatinine Ratio 16.0 Glucose 114 H Calcium 9.6 Total Bilirubin 0.52 AST 28 ALT 17 Alkaline Phosphatase 60 Total Protein 6.7 Albumin 4.2 Globulin 2.6 Albumin/Globulin Ratio 1.6 Lipase 27 Discharge Plan Triage Chief Complaint: Nausea/Vomiting ED Provider: Surjit Santizo Dx/Rx/DC Orders Clinical Impression: Vomiting, History of multiple myeloma, History of cancer chemotherapy Prescriptions: No Action lorazepam 0.5 mg tablet 0.5 mg PO TID PRN furosemide 40 mg tablet 40 mg PO .prn olanzapine 5 mg tablet 5 mg PO DAILY Glucosamine Chondroitin 550-30-1 mg capsule 1 cap PO escitalopram oxalate 10 mg tablet 20 mg PO DAILY Probiotic Gold Acidophilus 1 billion cell capsule 1,000 mmu cells PO DAILY Qty: 30 0RF levofloxacin 500 mg tablet 500 mg PO DAILY Qty: 10 0RF benzonatate 200 mg capsule 200 mg PO TID PRN (Reason: cough) Qty: 14 0RF menthol-zinc oxide 1 APPLIC ointment 1 applic TOPICAL 0600,1800 0RF Protocol: *Topical Application Instructions APPLICATION INSTRUCTIONS: bilat buttocks omeprazole 40 mg capsule,delayed release(DR/EC) 40 mg PO DAILY meclizine 25 mg tablet 25 mg PO TID buspirone 7.5 mg tablet 7.5 mg PO 3XD fentanyl 25 mcg/hr patch 72 hour 1 patch transdermal Q3D scopolamine base 1 mg over 3 days patch 3 day topical ondansetron HCl 8 mg tablet 4 mg PO 4X/DAY PRN PRN (Reason: nausea) Primary Care Provider: Care Physician,Tricia Primary Referrals: Ysabel Esteban NP-C [Non-Staff] - Print Language: Hong [place]er What to do if you have Problems For any increased pain, shortness of breath, bleeding, nausea or vomiting, chestpain, or any unexpected problems, contact your Primary Care Provider. Call [facility] ([phone]) or report to the closest Emergency Room. Call 911 if necessary. 12/18/242131 <Electronically signed by Surjit Santizo MD> Cosigner Signature (if applicable): CC: No Primary Care Physician ~ Signed [facility] Work Phone: 1([phone]) 756-499303-11-2025 History and physical note [facility] Medical Records Department [address] [place] [address] H&P Exam - Hospitalist 12/18/242158 MR#: [id number] Acct: [id number] Name: ALVINO NINA Rep #:[id number] : 1965 59 From: Irineo SCHULTZ PCP: Care Physician,No Primary Status :ADM [facility]ILLES Location: [facility] [id number] HPI - General General Date of Admission: 12/18/24 Date of Service: 12/18/24 Chief Complaint: nausea and vomiting HPI Narrative ALVINO NINA, is a 59 F with pmhx of multiple myeloma pt of [facility] oncology, undergoing chemo therapy, also with hx of renal cell cancer s/p resection, anxiety and depression, chronic back pain dueto multiple vertebral fractures, who presents to [place] ER from home for intractable nausea and vomiting. Patient has chronic nausea and vomiting associated with her chemo which progressively worsened around tuesday. She presented to [facility] ER for the same on tuesday night and was kept in the ER overnight. She was treated with a zofran with some improvement in symptoms, had a CT abdomen which according to her was negative, and was sent home. She continues to have nausea and vomiting with somemidepigastric discomfort. Last vomiting was frothy, no blood or coffee grounds noted. Pt is not having diarrhea, last BM was today. Pt is taking zofran at homewith little to no improvement and has also beenusing medical marijuana that shewas prescribed for nausea but that did not help at all today. In the ER her labsand vitals area normal but her symptoms were unable to be controlled with zofran. She will be placed in observation overnight for symptom control. [facility] Medical History 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 health care History of pneumococcal infection Headache, migraine Carpal tunnel syndrome history of bone fracture Back problem Arthritis Seasonal allergies Endometriosis Screening for intestinal cancer Iron deficiency anemia Renal cell cancer Former tobacco use Obesity Pancreatitis URI, acute History of nausea and vomiting History of abdominal pain Home Medications ?Medication ?Instructions ?Recorded ?Last Taken ?Type menthol 0.44 %-zinc oxide 20.6 % 1 applic topical 0600 ,1800 07/22/20 Unknown Rx topical ointment lorazepam 0.5 mg tablet 0.5 mg PO TID PRN 04/23/21 U nknown History escitalopram oxalate 10 mg tablet 20 mg PO DAILY 07/26 Unknown History furosemide 40 mg tablet 40 mg PO .prn 07/26/22 Unkno wn History glucosamine sulf dipot 1 cap PO 07/26/22 Unknown Hi story chlr,msm,chond 550 mg-C 30 mg-rika 1 mg capsule (Glucosamine Chondroitin) olanzapine 5 mg tablet 5 mg PO DAILY 07/26/22 Unkno wn History Lactobacillus acidophilus 1 1,000 mmu cells PO DAILY # 30 caps 08/19/23 Unknown Rx billion cell capsule (Probiotic Gold Acidophilus) benzonatate 200 mg capsule 200 mg PO TID PRN cough #14 caps 11/14/23 Unknown Rx levofloxacin 500 mg tablet 500 mg PO DAILY #10 tabs Unknown Rx buspirone 7.5 mg tablet 7.5 mg PO 3XD 12/18/24 Unkno wn History fentanyl 25 mcg/hr transdermal 1 patch transdermal Q3D 12/18/24 Unknown History patch meclizine 25 mg tablet 25 mg PO TID 12/18/24 Unknow n History omeprazole 40 mg capsule,delayed 40 mg PO DAILY Unknown History release ondansetron HCl 8 mg tablet 4 mg PO 4X/DAY PRN PRN rachel sea 12/18/24 Unknown History scopolamine base 1 mg over 3 days topical 12/18/24 Unk nown History transdermal patch Allergy/AdvReac Type Severity Reaction Status Date / Time latex Allergy Mild rash Verified 12/18/24 16:54 Penicillins Allergy Unknown Verified 12/18/24 16:54 adhesive tape AdvReac Rash Verified 12/18/24 16:54 Family History Brother Asthma Malignant hyperthermia due to anesthesia Hypertension Grandfather Colon cancer Mother Heart disease Thyroid disorder COPD (chronic obstructive pulmonary disease) Arthritis Anemia Sister Breast cancer Hypertension Thyroid disorder Hypothyroid Arthritis Father Bleeding disorder Cancer Lung Myelodysplastic syndrome Chronic lymphocytic leukemia Alcohol abuse Aunt Myocardial infarction Surgical History History of back surgery s/p kidney cancer Status post endometrial ablation Social History household members: children Smoking Status: Former smoker alcohol intake: current alcohol intake frequency: holidays/special occasions only what type of physical activity do you participate in: walking, bicycling, aerobics and weight training do you feel safe at home: Yes ROS Constitutional Constitutional: Reports anorexia; Denies chills, fatigue or fever(s) ENT HEENT: Denies abnormal hearing, ear pain or epistaxis Cardiovascular Cardiovascular: Denies chest pain, dyspnea on exertion or edema Respiratory/Chest Respiratory/Chest: Denies cough, dyspnea or hemoptysis Gastrointestinal Gastrointestinal: Reports abdominal pain, nausea and vomiting; Denies diarrhea, hematemesis or hematochezia Genitourinary Genitourinary: Denies burning urination, difficulty urinating or dysuria Musculoskeletal Musculoskeletal: Reports back pain Neurologic Neurologic: Denies abnormal gait Psychiatric Psychiatric: Denies anxiety or depression Endocrine Endocrinology: Denies change in body appearance Hematologic/Lymphatic Hematologic/Lymphatic: Denies anemia Allergic/Immunologic Allergic/Immunologic: Denies rhinitis Vital Signs Vital Signs Vital Signs: 12/18/24 16:54 12/18/24 18:53 12/18/24 20:00 Temperature 97.7 F L Temperature Source Oral Pulse Rate 85 72 75 Respiratory Rate 22 H 18 18 Blood Pressure 173/95 H 143/114 H Blood Pressure Mean 121 123 Pulse Ox 100 98 100 Oxygen Delivery Method Room Air Room Air Room Air 12/18/24 21:35 Temperature 98 F Temperature Source Pulse Rate 72 Respiratory Rate 16 Blood Pressure 159/84 H Blood Pressure Mean 109 Pulse Ox 100 Oxygen Delivery Method Weight Weight: 91.5 kg Body Mass Index (BMI) 33.5 Physical Exam Const alert and oriented x3 Constitutional Narrative: frankly nauseous General Appearance: cooperative HEENT normocephalic and head/scalp atraumatic Eyes PERRL Neck no lymphadenopathy Resp normal respiratory effort Cardio regular rate and regular rhythm GI normal to inspection, nondistended, normoactive bowel sounds, soft to palpation,non-tender and non-distended Extremity normal to inspection, full ROM and no clubbing, cyanosis or edema Neuro oriented x3 Psych affect normal Results Lab / Micro Data 12/18/24 17:43 12/18/24 17:43 Labs: Laboratory Results - last 24 hr 12/18/24 17:43: WBC 4.7, RBC 4.23, Hgb 12.8, Hct 37.8, MCV 89.4, MCH 30.3, MCHC 33.9, RDW Std Deviation 38.3, RDW Coeff of Marcia 11.8, Plt Count 190, MPV 9.6, Immature Gran % (Auto) 0.400, Neut % (Auto) 69.8, Lymph % (Auto) 12.7 L, [place] % (Auto) 14.4 H, Eos % (Auto) 0.6, Baso % (Auto) 2.1 H, AbsoluteNeuts (auto) 3.3,Absolute Lymphs (auto) 0.60 L, Nucleated RBC % 0, Sodium 142, Potassium 3.9, Chloride 105, Carbon Dioxide 23.7, Anion Gap 13, BUN 14, Creatinine 0.86, Estim Creat Clear Calc 77.75, Est GFR (MDRD) Non-Af 78, BUN/Creatinine Ratio 16.0, Glucose 114 H, Calcium 9.6, Total Bilirubin 0.52, AST 28, ALT 17, Alkaline Phosphatase 60, Total Protein 6.7, Albumin 4.2, Globulin 2.6, Albumin/Globulin Ratio 1.6, Lipase 27 Assessment & Plan Assessment/Plan (1) Intractable nausea: PLAN: 1. Intractable nausea and vomiting 2/2 chemotherapy for multiple myeloma - chrnoic but worsening since around tuesday with presentation to [facility] ER Tuesday night and subsequent discharge home with failure of outpatient therapy with zofran and medical marijuana. In the ER today she continues to nothave improvement with zofran. Also administered reglan x 1. Labs are unremarkable. Had CT abdomen at [facility] ER which was reportedly normal on tuesday so will defer further imaging at this time. She has developed some upper abdominal discomfort since vomiting today, no blood in vomit or coffee ground emesis. Pt will be placed on IV fluids, with zofran, reglan, and scopolamine. Pt NPO at this time if symptoms improved may attempt to advance in the AM. Continue home PPI. 2. Chronic severe back pain 2/2 approx 10-12x vertebral fractures 2/2 multiple myeloma - continue duragesic patch 3. anx/dep/mood disorder - resume home meds when appropriate (buspirone, lexapro, olanzapine) 4. Hx renal cell cancer s/p resection DVT ppx: lovenox This patient was seen by Irineo Perez PA-C under the supervision of Doctor Watkins. 12/18/248 Cosigner Signature (if applicable): CC: MARION Encarnacion; No Primary Care Physician~ Signed [facility]03-11-2025 Discharge summary [facility] Medical Records Department [address] [place] [address] Emergency Department Summary 12/18/24 MR#: [id number] Acct: [id number] Name: ALVINO NINA Rep #:[id number] : 1965 59 From: Surjit Santizo MD PCP: Care Physician,No Primary Status :REG ER Location: ED HPI HPI - GI History of Present Illness Chief Complaint: Nausea/Vomiting Informant: patient and family Nausea/Vomiting/Emesis GI Symptom: Positive for Nausea and Vomiting Onset: Days Severity: Moderate Diarrhea/Melena/Hematochezia GI Symptom: Negative for Diarrhea, Melena or Hematochezia Associated Symptoms Associated Symptoms: Negative for Dysuria, Frequency, Hematuria or Urgency Narrative Narrative: 59-year-old female history of multi myeloma currently getting chemotherapy she goes 3 weeks on 1 week off. Also history of endometriosis. She had nausea vomiting since Tuesday. She was seen in the [facility] on Tuesday stay in the emergency department overnight had labs and CAT scan which he stated was negative. She was sent home and started having nausea and vomiting again today. No diarrhea. No fever. No dysuria. No significant abdominal pain. Prior similar symptoms: Yes Recent Illness/Hospitalization: Yes PFSH PFSH Medical History 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 health care History of pneumococcal infection Headache, migraine Carpal tunnel syndrome history of bone fracture Back problem Arthritis Seasonal allergies Endometriosis Screening for intestinal cancer Iron deficiency anemia Renal cell cancer Former tobacco use Obesity Pancreatitis URI, acute History of nausea and vomiting History of abdominal pain Home Medications ?Medication ?Instructions ?Recorded ?Last Taken ?Type menthol 0.44 %-zinc oxide 20.6 % 1 applic topical 0600 ,1800 07/22/20 Unknown Rx topical ointment lorazepam 0.5 mg tablet 0.5 mg PO TID PRN 04/23/21 U nknown History escitalopram oxalate 10 mg tablet 20 mg PO DAILY 07/26 Unknown History furosemide 40 mg tablet 40 mg PO .prn 07/26/22 Unkno wn History glucosamine sulf dipot 1 cap PO 07/26/22 Unknown Hi story chlr,msm,chond 550 mg-C 30 mg-rika 1 mg capsule (Glucosamine Chondroitin) olanzapine 5 mg tablet 5 mg PO DAILY 07/26/22 Unkno wn History Lactobacillus acidophilus 1 1,000 mmu cells PO DAILY # 30 caps 08/19/23 Unknown Rx billion cell capsule (Probiotic Gold Acidophilus) benzonatate 200 mg capsule 200 mg PO TID PRN cough #14 caps 11/14/23 Unknown Rx levofloxacin 500 mg tablet 500 mg PO DAILY #10 tabs Unknown Rx buspirone 7.5 mg tablet 7.5 mg PO 3XD 12/18/24 Unkno wn History fentanyl 25 mcg/hr transdermal 1 patch transdermal Q3D 12/18/24 Unknown History patch meclizine 25 mg tablet 25 mg PO TID 12/18/24 Unknow n History omeprazole 40 mg capsule,delayed 40 mg PO DAILY Unknown History release ondansetron HCl 8 mg tablet 4 mg PO 4X/DAY PRN PRN rachel sea 12/18/24 Unknown History scopolamine base 1 mg over 3 days topical 12/18/24 Unk nown History transdermal patch Allergy/AdvReac Type Severity Reaction Status Date / Time latex Allergy Mild rash Verified 12/18/24 16:54 Penicillins Allergy Unknown Verified 12/18/24 16:54 adhesive tape AdvReac Rash Verified 12/18/24 16:54 Family History Brother Asthma Malignant hyperthermia due to anesthesia Hypertension Grandfather Colon cancer Mother Heart disease Thyroid disorder COPD (chronic obstructive pulmonary disease) Arthritis Anemia Sister Breast cancer Hypertension Thyroid disorder Hypothyroid Arthritis Father Bleeding disorder Cancer Lung Myelodysplastic syndrome Chronic lymphocytic leukemia Alcohol abuse Aunt Myocardial infarction Surgical History History of back surgery s/p kidney cancer Status post endometrial ablation Social History household members: children Smoking Status: Former smoker alcohol intake: current alcohol intake frequency: holidays/special occasions only what type of physical activity do you participate in: walking, bicycling, aerobics and weight training do you feel safe at home: Yes ROS ROS ED ROS Narrative Nausea and vomiting. No diarrhea. No fever. No significant abdominal pain. Constitutional Constitutional ED: Denies chills or fever(s) ENT ENT ED: Denies ear pain Cardiovascular Cardiovascular: Denies chest pain Respiratory/Chest Respiratory/Chest: Denies cough or dyspnea Gastrointestinal Gastrointestinal: Reports nausea and vomiting; Denies abdominal pain, constipation, diarrhea or melena Genitourinary Genitourinary ED: Denies dysuria or hematuria Musculoskeletal Musculoskeletal: Denies arthralgias or back pain Integumentary Denies abscess or Abrasions Neurologic Neurologic: Denies headache(s) Psychiatric Psychiatric: Denies anxiety or depression Endocrine Endocrinology: Denies polydipsia Hematologic/Lymphatic Hematologic/Lymphatic: Denies easy bleeding Allergic/Immunologic Allergic/Immunologic ED: Denies mouth swelling, tongue swelling or urticaria EXAM Physical Exam Narrative Exam Narrative: 59-year-old female sitting upright in bed. Vital signs are stable afebrile. She does not look septic or toxic. H EENT exam pupils round react light. Extramotions intact. No facial droop. Dry mucous membranes. Tongue midline. Neck nontender no lymphadenopathy. Lungs clear to auscultation bilaterally. Heart regular rhythm rate about 85 no murmur. Chest wall ribs nontender. Abdomen soft, nondistended normal bowel sounds without peritoneal signs. No significanttenderness. Right upper and lower quadrant unremarkable. No hernia or mass. Moving all 4 extremities. Nontender no edema. Normal strength. Neurologicallyshe is awake alert no focal motor deficits. Back nontender. Benign exam open clinically she does look dehydrated. Const Vital Signs: 12/18/24 16:54 12/18/24 18:53 12/18/24 20:00 Temperature 97.7 F L Temperature Source Oral Pulse Rate 85 72 75 Respiratory Rate 22 H 18 18 Blood Pressure 173/95 H 143/114 H Blood Pressure Mean 121 123 Pulse Ox 100 98 100 Oxygen Delivery Method Room Air Room Air Room Air Positive well nourished and well developed; Negative for cachectic, contracturesor unkempt General Appearance ED: well developed; Negative for unkempt, cachectic, contractures or pallor Nutritional Appearance: Negative for cachectic HEENT Reports dry mucous membranes; Denies moist mucous membranes normocephalic and atraumatic Mouth ED: Yes dry mucous membranes Mouth: dry mucous membranes Eyes PERRL and EOMs intact bilaterally General Eye ED: Negative for pale conjunctiva or scleral icterus Neck no lymphadenopathy, supple and no JVD General: Negative for tenderness Carotids: Negative for other Resp normal respiratory effort and clear to auscultation bilaterally Effort and Inspection: Negative for respiratory distress Auscultation: Negative for rales, rhonchi or wheezes Cardio regular rate, regular rhythm, S1 normal heart sound, S2 normal heart sound and no murmurs Rate: Negative for bradycardia or tachycardic Rhythm: Negative for abnormal rhythm GI non-tender, non-distended and no masses Inspection: Negative for abdominal distention Auscultation: normoactive bowel sounds Palpation: soft; Negative for tender or guarding Back/Spine no CVA tenderness General Back: Negative for CVA tenderness Cervical Spine: Negative for cervical spine tenderness Thoracic Spine / Upper Back: Negative for thoracic spinal tenderness Lumbar Spine / Lower Back: Negative for lumbar spinal tenderness Coccyx: Negative for other Extremity full ROM General Extremety ED: Negative for edema or tenderness General Extremity: Negative for edema Neuro CN's II-XII intact bilaterally, moves all extremities and no sensory deficits noted Sensorium / Orientation: alert, oriented to person, oriented to place and oriented to time; Negative for orientation impaired, confused, lethargic or stuporous Motor Exam: Negative for strength 5/5 throughout, general weakness or strength abnormal Psych mental status grossly normal and thought process normal Appearance: Negative for unkempt Attitude: No agitated Mood & Affect: Negative for depressed, anxious or tearful Skin no wounds General Skin Exam: Negative for jaundice or pallor Lesions: no lesions Rashes: no rashes Trauma: Negative for abrasion Nails: Negative for discolored MDM MDM MDM Narrative Medical decision making narrative: 59-year-old female with nausea and vomiting currently on chemotherapy for multiple myeloma. Clinically she looks dehydrated. She received Zofran for nausea and liter normal saline. P.o. fluid challenge. Screening labs. She really just had a CAT scan within the last 48 hours. Her abdomen is benign Idonot think she needs additional imaging. Repeat exam at 7:56 PM unchanged. Patient is very emotionally upset and tearful. She is requesting admission. I told her lets try another dose of Zofran. If we cannot get her nausea better we may have to admit her for intractable vomiting. She understands that her labs are completely normal at thistime. Repeat exam patient was given a second dose of Zofran and on repeat exam around 9:25 PM she still states she is nauseated. She will be admitted for intractablenausea and vomiting. I have also orderedReglan. History & Record Review Discussion w/independent historian: Patient and Family Additional record(s) reviewed:: Prior inpatient record Lab Data Attestation: I reviewed the patient's lab results. Lab results narrative: CBC shows a white count of 4.7. H&H 12.8 and 37. Platelets 190. Electrolytes show a gap of 13. Normal BUN and creatinine of 14 and 0.8. Glucose 114. Liver enzymes normal. Lipase normal at 27. Labs: Laboratory Results - last 24 hr 12/18/24 17:43 WBC 4.7 RBC 4.23 Hgb 12.8 Hct 37.8 MCV 89.4 MCH 30.3 MCHC 33.9 RDW Std Deviation 38.3 RDW Coeff of Marcia 11.8 Plt Count 190 MPV 9.6 Immature Gran % (Auto) 0.400 Neut % (Auto) 69.8 Lymph % (Auto) 12.7 L [place] % (Auto) 14.4 H Eos % (Auto) 0.6 Baso % (Auto) 2.1 H Absolute Neuts (auto) 3.3 Absolute Lymphs (auto) 0.60 L Nucleated RBC % 0 Sodium 142 Potassium 3.9 Chloride 105 Carbon Dioxide 23.7 Anion Gap 13 BUN 14 Creatinine 0.86 Estim Creat Clear Calc 77.75 Est GFR (MDRD) Non-Af 78 BUN/Creatinine Ratio 16.0 Glucose 114 H Calcium 9.6 Total Bilirubin 0.52 AST 28 ALT 17 Alkaline Phosphatase 60 Total Protein 6.7 Albumin 4.2 Globulin 2.6 Albumin/Globulin Ratio 1.6 Lipase 27 Discharge Plan Triage Chief Complaint: Nausea/Vomiting ED Provider: Surjit Santizo Dx/Rx/DC Orders Clinical Impression: Vomiting, History of multiple myeloma, History of cancer chemotherapy Prescriptions: No Action lorazepam 0.5 mg tablet 0.5 mg PO TID PRN furosemide 40 mg tablet 40 mg PO .prn olanzapine 5 mg tablet 5 mg PO DAILY Glucosamine Chondroitin 550-30-1 mg capsule 1 cap PO escitalopram oxalate 10 mg tablet 20 mg PO DAILY Probiotic Gold Acidophilus 1 billion cell capsule 1,000 mmu cells PO DAILY Qty: 30 0RF levofloxacin 500 mg tablet 500 mg PO DAILY Qty: 10 0RF benzonatate 200 mg capsule 200 mg PO TID PRN (Reason: cough) Qty: 14 0RF menthol-zinc oxide 1 APPLIC ointment 1 applic TOPICAL 0600,1800 0RF Protocol: *Topical Application Instructions APPLICATION INSTRUCTIONS: bilat buttocks omeprazole 40 mg capsule,delayed release(DR/EC) 40 mg PO DAILY meclizine 25 mg tablet 25 mg PO TID buspirone 7.5 mg tablet 7.5 mg PO 3XD fentanyl 25 mcg/hr patch 72 hour 1 patch transdermal Q3D scopolamine base 1 mg over 3 days patch 3 day topical ondansetron HCl 8 mg tablet 4 mg PO 4X/DAY PRN PRN (Reason: nausea) Primary Care Provider: Care Physician,No Primary Referrals: Ysabel Esteban, [facility] [Non-Staff] - Print Language: Hong Konger What to do if you have Problems For any increased pain, shortness of breath, bleeding, nausea or vomiting, chestpain, or any unexpected problems, contact your Primary Care Provider. Call [facility] ([phone]) or report tothe closest Emergency Room. Call 911 if necessary. 12/18/242131 Cosigner Signature (if applicable): CC: No Primary Care Physician ~ Signed [facility]03-11-2025 Telephone encounter Note* Telephone Encounter - Heather Cuevas RN - 12/18/2024 3:[address] Styles, patient instructed to go to [facility] ED. Patient stated understanding and agreeable. Patient also instructed to hold revlimid. Heather Cuevas RN [facility]03-11-2025 Miscellaneous Notes* Telephone Encounter - Heather Cuevas RN - 12/18/2024 3:[address] Styles, patient instructed to go to [facility] ED. Patient stated understanding and agreeable. Patient also instructed to hold revlimid. Heather Cuevas RN * Telephone Encounter - Donna Browne LPN - 12/18/2024 2:59 PM EDT Pt calls office stating she was D/C from hospital yesterday. Nausea and vomiting were finally undercontrol. This morning she started vomiting again. She is unable to keep any pills down, (ondansetron) but does have a scopolamine patch on. She states her last urine output was around 9AM this morning. Deniesfevers or abd pain. She states she is throwing up bile. Did not review the below note from Dr Styles with her yet. Palliative saw her yesterday. Donna Browne LPN * Telephone Encounter - Jadon Styles DO - 12/18/2024 2:04 PM EDT Sorry I forgot to tell you but the ER doctor called me yesterday. He had also spoken with palliative care and palliative care said they were going to get in touch with her to see what more they coulddo. I also think it is time to repeat her CBC/CMP/myeloma labs with 24-hour urine M spike then establish complexed visit with me. Hold lenalidomide as of now. Jadon Styles DO * Telephone Encounter - Heather Cuevas RN - 12/18/2024 1:39 PM EDT EMERGENCY ROOM CALL BACK Today's date: December 18, 2024 Patient identified by name and date of . NO Primary Cancer Diagnosis: MM Reason for Emergency Room Visit: nausea/vomiting Time of day presented to Emergency Room 2114 on 12/16 If Mon-Tuesday during business hours: N/A Patient presented to [facility] with c/o nausea and vomiting. ED ruled out viral cause, pancreatitis, sepsis, and CT didn't show any issues with gallbladder, appendix, pancreas, bowels, etc. No electrolyte abnormalities, renal dysfunction, leukocytosis, or significant anemia. Unclear cause of nausea and vomiting, the plan was to admit patient. Per last nursing note, patient declined updating vitals and was discharged. Heather Cuevas RN [facility] Telephone encounter Note * Telephone Encounter - Donna Browne LPN - 12/18/2024 2:59 PM EDT Pt calls office stating she was D/C from hospital yesterday. Nausea and vomiting were finally undercontrol. This morning she started vomiting again. She is unable to keep any pills down, (ondansetron) but does have a scopolamine patch on. She states her last urine output was around 9AM this morning. Deniesfevers or abd pain. She states she is throwing up bile. Did not review the below note from Dr Styles with her yet. Palliative saw her yesterday. Donna Browne LPN [facility]03-11-2025 Telephone encounter Note* Telephone Encounter - Jadon Styles DO - 12/18/2024 2:04 PM EDT Sorry I forgot to tell you but the ER doctor called me yesterday. He had also spoken with palliative care and palliative care said they were going to get in touch with her to see what more they coulddo. I also think it is time to repeat her CBC/CMP/myeloma labs with 24-hour urine M spike then establish complexed visit with me. Hold lenalidomide as of now. Jadon Styles DO [facility]03-11-2025 Telephone encounter Note* Telephone Encounter - Heather Cuevas RN - 12/18/2024 1:39 PM EDT EMERGENCY ROOM CALL BACK Today's date: December 18, 2024 Patient identified by name and date of . NO Primary Cancer Diagnosis: MM Reason for Emergency Room Visit: nausea/vomiting Time of day presented to Emergency Room 2114 on 12/16 If Tue-Tuesday during business hours: N/A Patient presented to [facility] ED with c/o nausea and vomiting. ED ruled out viral cause, pancreatitis, sepsis, and CT didn't show any issues with gallbladder, appendix, pancreas, bowels, etc. No electrolyte abnormalities, renal dysfunction, leukocytosis, or significant anemia. Unclear cause of nausea and vomiting, the plan was to admit patient. Per last nursing note, patient declined updating vitals and was discharged. Heather Cuevas RN [facility]02-25-2025 Telephone encounter Note* Telephone Encounter - Sangeeta Garsia LPN - 12/04/2024 7:26 AM EST Prescription Refill Information The patient has been identified by name and date of : Yes Caregiver verified no other encounters exist for this prescription request: Yes Caregiver confirmed with patient/requestor that no other refills are due, in the near future, with this provider at this time: Yes The last office visit in the department: 10/11/2024 Does the patient have a future office visit with this provider/department: Yes Requested Prescriptions Pending Prescriptions Disp Refills lenalidomide (REVLIMID) 5 mg capsule 21 capsule 0 Sig: TAKE 1 CAPSULE BY MOUTH DAILY FOR 21 DAYS, THEN 7 DAYS OFF Sangeeta Garsia LPN December 04, 2024 7:31 AM [facility]02-25-2025 Miscellaneous Notes* Telephone Encounter - Sangeeta Garsia LPN - 12/04/2024 7:26 AM EST Prescription Refill Information The patient has been identified by name and date of : Yes Caregiver verified no other encounters exist for this prescription request: Yes Caregiver confirmed with patient/requestor that no other refills are due, in the near future, with this provider at this time: Yes The last office visit in the department: 10/11/2024 Does the patient have a future office visit with this provider/department: Yes Requested Prescriptions Pending Prescriptions Disp Refills lenalidomide (REVLIMID) 5 mg capsule 21 capsule 0 Sig: TAKE 1 CAPSULE BY MOUTH DAILY FOR 21 DAYS, THEN 7 DAYS OFF Sangeeta Garsia LPN December 04, 2024 7:31 AM documented in [facility] Telephone encounter Note * Telephone Encounter - Donna Browne LPN - 11/27/2024 8:49 AM EST message reply sent to pt. Donna Browne LPN [facility]02-18-2025 Miscellaneous Notes* Telephone Encounter - Donna Browne LPN - 11/27/2024 8:49 AM EST message reply sent to pt. Donna Browne LPN * Telephone Encounter - Jadon Styles DO - 11/27/2024 8:41 AM EST That's reasonable. PCPs are better at working up gallbladder issues. Jadon Styles DO * Telephone Encounter - Donna Browne LPN - 11/26/2024 3:54 PM EST Call to pt to review Dr Styles's response. Pt states she has paused her Revlimid in the past and hadno relief from the nausea. She thinks she would like to stay on the Revlimid for now, but is asking if she could get her gallbladder re-evaluated. Pt has not seen PCP for this issue recently. Had an abd US at [facility] 12/27/22 for epigastric pain (report scanned 01/06/23) Please advise. Donna Browne LPN * Telephone Encounter - Jadon Styles DO - 11/26/2024 3:45 PM EST The only thing I can think of at this point is to hold Revlimid. If it is the cause of nausea it should go away within 1 to 2 weeks. Let's see how that works first. If the nausea persists then she can restart Revlimid and get in touch with palliative care about systematically holding other meds until we determine whether or not any of her medications are driving the nausea. Jadno Styles DO * Telephone Encounter - Katie Vega LPN - 11/26/2024 10:41 AM EST Patient calling on status of message. 12/30/2023 1:27 PM - Radiology, [place] In Impression IMPRESSION: Normal gastric emptying rate for the solid meal. EGD 03/03/2023- Impression: - Z-line regular, 35 cm from the incisors. Biopsied. - Gastritis. Biopsied. - Normal examined duodenum. Biopsied. Katie Vega LPN * Telephone Encounter - Donna Browne LPN - 11/23/2024 9:14 AM EST Epic gastric emptying test 12/30/23 EGD 03/03/23 Nothing in [facility]. Donna Browne LPN * Telephone Encounter - Jadon Styles DO - 11/23/2024 8:45 AM EST Donna, can you dig through [facility] and [facility] and see if she's ever had an EGDr? Also in imaging bothplaces--see if she has ever had a gastric emptying study. Jadon Styles DO * Telephone Encounter - Donna Browne LPN - 11/23/2024 8:31 AM EST TC to pt to review symptoms. She states she has had nauseated daily for well over a year, started vomiting last week. She starts to get some mid-sternal pain, that starts to radiated around her back, then she vomits. She gets hot and sweaty when this happens. Denies any left arm or jaw pain. Denies SOB during these episodes. Started new cycle of Revlimid Tuesday. No fevers, has not been sick otherwise. Has Ondansetron, compazine for nausea. Says she also has a patch for nausea. Donna Browne LPN * Telephone Encounter - Nichole Valladares - 11/23/2024 8:15 AM EST Patient calls stating she has been getting sick/vomiting. States it starts in her stomach and radiates to her back. Someone informed her it could be related to gallbladder. She had a test done 03/2023- Dr. Cunningham. She is asking what she should do or start to find out what is causing this. Please advise. documented [facility] Telephone encounter Note * Telephone Encounter - Jadon Styles DO - 11/27/2024 8:41 AM EST That's reasonable. PCPs are better at working up gallbladder issues. Jadon Styles DO [facility]02-17-2025 Telephone encounter Note* Telephone Encounter - Donna Browne LPN - 11/26/2024 3:54 PM EST Call to pt to review Dr Styles's response. Pt states she has paused her Revlimid in the past and hadno relief from the nausea. She thinks she would like to stay on the Revlimid for now, but is asking if she could get her gallbladder re-evaluated. Pt has not seen PCP for this issue recently. Had an abd US at [facility] 12/27/22 for epigastric pain (report scanned 01/06/23) Please advise. Donna Browne LPN [facility]02-17-2025 Telephone encounter Note* Telephone Encounter - Jadon Styles DO - 11/26/2024 3:45 PM EST The only thing I can think of at this point is to hold Revlimid. If it is the cause of nausea it should go away within 1 to 2 weeks. Let's see how that works first. If the nausea persists then she can restart Revlimid and get in touch with palliative care about systematically holding other meds until we determine whether or not any of her medications are driving the nausea. Jadon Styles DO [facility]02-17-2025 Telephone encounter Note* Telephone Encounter - Katie Vega LPN - 11/26/2024 10:41 AM EST Patient calling on status of message. 12/30/2023 1:27 PM - Radiology, [place] In Impression IMPRESSION: Normal gastric emptying rate for the solid meal. EGD 03/03/2023- Impression: - Z-line regular, 35 cm from the incisors. Biopsied. - Gastritis. Biopsied. - Normal examined duodenum. Biopsied. Katie Vega LPN [facility]02-14-2025 Telephone encounter Note* Telephone Encounter - Donna Browne LPN - 11/23/2024 9:14 AM EST Epic gastric emptying test 12/30/23 EGD 03/03/23 Nothing in [employer]. Donna Browne LPN [facility]02-14-2025 Telephone encounter Note* Telephone Encounter - Jadon Styles DO - 11/23/2024 8:45 AM EST Donna, can you dig through [facility] and see if she's ever had an EGDr? Also in imaging bothplaces--see if she has ever had a gastric emptying study. Jadon Styles DO [facility]02-14-2025 Telephone encounter Note* Telephone Encounter - Donna Browne LPN - 11/23/2024 8:31 AM EST TC to pt to review symptoms. She states she has had nauseated daily for well over a year, started vomiting last week. She starts to get some mid-sternal pain, that starts to radiated around her back, then she vomits. She gets hot and sweaty when this happens. Denies any left arm or jaw pain. Denies SOB during these episodes. Started new cycle of Revlimid Tuesday. No fevers, has not been sick otherwise. Has Ondansetron, compazine for nausea. Says she also has a patch for nausea. Donna Browne LPN [facility]02-14-2025 Telephone encounter Note* Telephone Encounter - Nichole Valladares - 11/23/2024 8:15 AM EST Patient calls stating she has been getting sick/vomiting. States it starts in her stomach and radiates to her back. Someone informed her it could be related to gallbladder. She had a test done 03/2023- Dr. Cunningham. She is asking what she should do or start to find out what is causing this. Please advise. [facility] Work Phone: 1(661) 327-774902-06-2025 Telephone encounter Note* Telephone Encounter - Jadon Styles DO - 11/15/2024 3:06 PM EST Noted. Thank you. [facility]02-06-2025 Miscellaneous Notes* Telephone Encounter - Jadon Styles DO - 11/15/2024 3:06 PM EST Noted. Thank you. * Telephone Encounter - Chloe Pittman RN - 11/15/2024 2:40 PM EST Pt stated during assessment today for Zometa, that she does not want to take Haldol for pain. She started taking a CBD tincture, and it has been helpful for pain and nausea. EKG not performed at this time. Chloe Pittman RN * Telephone Encounter - Katie Vega LPN - 11/14/2024 11:15 AM EST Appointment note updated to reflect need for EKG. Katie Vega LPN * Telephone Encounter - Heather Cuevas RN - 11/13/2024 5:03 PM EST Patient is coming in for labs/zometa on , please add EKG to her appointment. Patient will speak to [facility] tomorrow. Pending on their suggestions, she will decide if she wants to pursue haldol or not. Patient will let us know. She will cancel EKG if [facility] has a different medication suggestion. Thank you. Heather Cuevas RN * Telephone Encounter - Jadon Styles DO - 11/13/2024 5:00 PM EST Ask her to come in for a baseline EKG. If QTc okay then we could try low-dose Haldol perhaps twice a day not to be taken within 6 hours of risperidone. Jadon Styles DO * Telephone Encounter - Heather Cuevas RN - 11/13/2024 4:21 PM EST Patient is on a scopolamine patch for nausea, she feels this helps for nausea. This is being prescribed by [facility]. Patient has a follow-up phone call with [facility] tomorrow and patient will discuss nausea with them. Patient informed that this nurse will speak to Dr. Styles and if there are any further recommendations, this nurse will call her back. Patient stated understanding. Heather Cuevas RN * Telephone Encounter - Heather Cueavs RN - 11/13/2024 2:11 PM EST Care Coordination Triage Note [facility] Situation: Patient reports Nausea/Vomiting Background: MM, Revlimid. Assessment: Patient stated she finished a cycle and is on her 3rd day off. NAUSEA When did the nausea start? It's been going on for a long time. Is it constant or intermittent? Becoming more constant. Are you taking any anti-nausea medications? Patient has Zofran, she does not have the orally disintegrating tablets. She might have 8 mg? Did you get any relief from this medication? Did not help with N/V on Tuesday. Patient does not takefrequently d/t not providing enough relief. Reviewed med list. Not taking methadone. Last dose of lasix was about a month ago. Patient will take potassium when she takes lasix. Not taking compazine. Are you doing anything else that is helping to relieve the nausea? Zeinab chew might help a little bit but not much. Is there anything that makes the nausea worse? Patient does not want to eat when she has nausea. When was your last bowel movement? This morning Was it normal for you? Medium Are you taking any pain medications or any new medications including supplements since the nausea started? CBD/THC drops, started 2-3 days ago. Patient stated the vomiting started prior to starting the drops. Azexia- sublingual oil. VOMITING Are you also having any vomiting? Yes. If yes, when did the vomiting start? Tuesday, 2 episodes Recommendations: Per RNCC, will discuss with Dr. Raquel Cuevas RN November 13, 2024 2:11 PM * Telephone Encounter - Nichole Valladares - 11/13/2024 12:58 PM EST Patient requesting to speak with Heather. She states she has been very sick from chemo. [facility] Telephone encounter Note * Telephone Encounter - Chloe Pittman RN - 11/15/2024 2:40 PM EST Pt stated during assessment today for Zometa, that she does not want to take Haldol for pain. She started taking a CBD tincture, and it has been helpful for pain and nausea. EKG not performed at this time. Chloe Pittman RN [facility]02-06-2025 History of Present illness Narrative* Chloe Pittman RN - 11/15/2024 2:29 PM EST Pt stated she does not want Haldol for pain from Palliative, and does not need EKG. Labs not resulting tonight. Pt aware and will reschedule Zometa so creatinine is resulted. Chloe Pittman RN [facility]25 Telephone encounter Note * Telephone Encounter - Katie Vega LPN - 11/14/2024 11:15 AM EST Appointment note updated to reflect need for EKG. Katie Vega LPN [facility]02-04-2025 Telephone encounter Note* Telephone Encounter - Heather Cuevas RN - 11/13/2024 5:03 PM EST Patient is coming in for labs/zometa on , please add EKG to her appointment. Patient will speak to [facility] tomorrow. Pending on their suggestions, she will decide if she wants to pursue haldol or not. Patient will let us know. She will cancel EKG if [facility] has a different medication suggestion. Thank you. Heather Cuevas RN [facility]02-04-2025 Telephone encounter Note* Telephone Encounter - Jadon Styles DO - 11/13/2024 5:00 PM EST Ask her to come in for a baseline EKG. If QTc okay then we could try low-dose Haldol perhaps twice a day not to be taken within 6 hours of risperidone. Jadon Styles DO [facility]02-04-2025 Telephone encounter Note* Telephone Encounter - Heather Cuevas RN - 11/13/2024 4:21 PM EST Patient is on a scopolamine patch for nausea, she feels this helps for nausea. This is being prescribed by [facility]. Patient has a follow-up phone call with [facility] tomorrow and patient will discuss nausea with them. Patient informed that this nurse will speak to Dr. Styles and if there are any further recommendations, this nurse will call her back. Patient stated understanding. Heather Cuevas RN [facility]02-04-2025 Telephone encounter Note* Telephone Encounter - Heather Cuevas RN - 11/13/2024 2:11 PM EST Care Coordination Triage Note [facility] Situation: Patient reports Nausea/Vomiting Background: MM, Revlimid. Assessment: Patient stated she finished a cycle and is on her 3rd day off. NAUSEA When did the nausea start? It's been going on for a long time. Is it constant or intermittent? Becoming more constant. Are you taking any anti-nausea medications? Patient has Zofran, she does not have the orally disintegrating tablets. She might have 8 mg? Did you get any relief from this medication? Did not help with N/V on Tuesday. Patient does not takefrequently d/t not providing enough relief. Reviewed med list. Not taking methadone. Last dose of lasix was about a month ago. Patient will take potassium when she takes lasix. Not taking compazine. Are you doing anything else that is helping to relieve the nausea? Zeinab chew might help a little bit but not much. Is there anything that makes the nausea worse? Patient does not want to eat when she has nausea. When was your last bowel movement? This morning Was it normal for you? Medium Are you taking any pain medications or any new medications including supplements since the nausea started? CBD/THC drops, started 2-3 days ago. Patient stated the vomiting started prior to starting the drops. Azexia- sublingual oil. VOMITING Are you also having any vomiting? Yes. If yes, when did the vomiting start? Tuesday, 2 episodes Recommendations: Per RNCC, will discuss with Dr. Raquel Cuevas RN November 13, 2024 2:11 PM [facility]02-04-2025 Telephone encounter Note* Telephone Encounter - Nichole Valladares - 11/13/2024 12:58 PM EST Patient requesting to speak with Heather. She states she has been very sick from chemo. [facility] Work Phone: 1(722) 567-813902-03-2025 History of Present illness Narrative* Melissa Cunningham MD - 11/12/2024 12:40 PM EST Preoperative diagnosis: Left thyroid nodule Postoperative diagnosis: The same Procedure: Ultrasound-guided fine-needle aspiration of dominant left thyroid nodule Surgeon: Amberly Procedure: Ultrasound of the left thyroid gland revealed the nodule in question. I prepped the skinwith alcohol. I injected 1% lidocaine plain. Under ultrasound guidance I took 4 passes with a 22-gauge needle. I plated these on glass slides and sent an Afirma test off. No dressings were applied and the patient tolerated the procedure well. * Mikayla Mcallister RN - 11/05/2024 3:37 PM EST UNIVERSAL PROTOCOL / SAFETY CHECKLIST Procedure to be Performed: Ultrasound Guided Fine Needle Aspiration Thyroid left Sign In: A Moment of CARE was completed. Personnel directly involved with the procedure wore the appropriate PPE (Personal Protective Equipment). No special equipment needed. Patient/Surrogate Stated/Verified: PATIENT VERIFIED(optional for EMERGENT procedures): Patient name, Date of , Relevant allergies, and The intended procedure Time Out Communication: Intended patient and procedure match the source documents. Consent documented and matches the intended procedure. Relevant labs, photos, and/or imaging studies have been reviewed. Correct side/site marked and visible. Medications required for procedure verified. No fire risk assessment and interventions applicable. No implant(s) inserted. Sign Out: SIGN OUT (optional for EMERGENT procedures): All specimen containers correctly labeled. All instruments, equipment, possible retained foreign bodies accounted for. Post-procedure follow-up management communicated and Plan of Care Visit completed when applicable. Mikayla Mcallister RN documented in [facility] encounterL[facility]01-31-2025 Telephone encounter Note * Telephone Encounter - Katie Vega LPN - 11/09/2024 9:20 AM EST [employer] auth #[id number]. Please send electronically. Katie Vega LPN [facility]01-31-2025 Miscellaneous Notes* Telephone Encounter - Katie Vega LPN - 11/09/2024 9:20 AM EST [employer] auth #[id number]. Please send electronically. Katie Vega LPN * Telephone Encounter - Nichole Valladares - 11/07/2024 11:47 AM EST Patient called in to confirm that pharm sent request. She states she will have two pills left aftertaking 1 today and then she has 7 day break. * Telephone Encounter - Sangeeta Garsia LPN - 11/06/2024 8:28 AM EST Unable to obtain auth until 11/12/2024 Sangeeta Garsia LPN documented in [facility] encounterLuther[facility]01-29-2025 Telephone encounter Note * Telephone Encounter - Nichole Valladares - 11/07/2024 11:47 AM EST Patient called in to confirm that pharm sent request. She states she will have two pills left aftertaking 1 today and then she has 7 day break. [facility] Work Phone: 1(496) 121-311501-28-2025 Telephone encounter Note* Telephone Encounter - Sangeeta Garsia LPN - 11/06/2024 8:28 AM EST Unable to obtain auth until 11/12/2024 Sangeeta Garsia LPN [facility]01-27-2025 Instructions* Patient Instructions* Mikayla Mcallister RN - 11/05/2024 3:35 PM EST The following instructions are important for you related to your office visit today with the [facility]. Instructions After THYROID FINE NEEDLE ASPIRATION Please do not take aspirin or other blood thinners for the next few days. If you have bleeding from the needle site, hold pressure with a clean gauze. If the bleeding continues, contact our office immediately. I recommend taking Advil or Tylenol for the discomfort. An ice pack may improve your discomfort to the area. Contact our office immediately if you have any questions or concerns @ [phone]. Please make an appointment to follow up in one week with your physician and thank you for choosing the [facility]. If you note any additional difficulties, questions, or concerns, you should contact our office immediately @ [phone] and ask to be transferred to the General Surgery department. documented in this encounterLutheran Hospital01-22-2025 History of Present illness Narrative* Melissa Cunningham MD - 10/31/2024 12:11 PM EST HISTORY AND PHYSICAL Alvino Nina 1965 REFERRING PHYSICIAN: No ref. provider found CHIEF COMPLAINT: Consult (Fna thyroid 10/18/2023 US) HPI: The patient is a 59 year old female with a complaint of a left thyroid nodule. This thyroid nodule was found on Ultrasound by [facility]. The patient denies pain, denies difficulty swallowing, deniesrapid enlargement of the neck, deniesdysphagia, denies a change in the voice, denies hot or cold intolerence. The patient has not a prior history of neck radiation treatment. NODULE 1: Location: Inferior left Size: 2.5 x 2.7 x 1.7 cm Characteristics: Composition: Solid or almost completely solid, 2 points Echogenicity: Isoechoic, 1 point Shape: Syvlau-usrp-pyph, 3 points Margin: Smooth, 0 points Echogenic foci (add points for all that apply): Punctate echogenic foci, 3 points Internal vascularity: present Interval growth: No prior available for comparison TI-RADS Category: TR5 ACR Recommendation: TI-RADS 5 nodule. FNA is advised. PAST MEDICAL HISTORY Diagnosis Date Benign renal tumor unsure of malignancy Cancer of right kidney (HCC) Compression fracture of L5 vertebra ([facility]) 05/2020 Compression fracture of T11 vertebra (HCC) 06/09/2020 acute moderate compression fx withou obvious protrusion into the spinal canal, seen on MRI Endometriosis Environmental allergies Generalized anxiety disorder Immunodeficiency ([facility]) 03/04/2021 Irregular heart beat Lytic lesion of bone on x-ray 06/25/2020 skull, bilateral humeri, bilateral femurs and possibly the left tibial plateau Multiple myeloma not having achieved remission ([facility]) 06/25/2020 Multiple myeloma not having achieved remission ([facility]) 06/25/2020 Osteopenia 06/25/2020 S/P autologous bone marrow transplantation ([facility]) 01/13/2021 Day: +13 Protocol(s): Auto 3422 1C Melphalan 200 Preparative regimen: melphalan Mobilization regimen: Neupogen Stem cell source: Stem cells CD34 cell dose (x10e6/kg): 5.14 Date of transplant: 01/15/2021 PAST SURGICAL HISTORY Procedure Laterality Date BACK SURGERY HX EGD 03/03/2023 FNA WITH IMAGING 09/12/2012 U/S FNA left thyroid nodule KIDNEY BIOPSY Right 2012 KYPHOPLASTY - LUMBAR 06/05/2020 L5 LAPS ABD PRTM&OMENTUM DX W/WO SPEC BR/WA SPX 1984 Laparoscopy LIG/TRNSXJ FLP TUBE ABDL/VAG APPR UNI/BI 2011 Tubal ligation, with ablation TONSILLECTOMY HX TUMOR REMOVAL (SPECIFY LOCATION) HX Right 2012 kidney Current Outpatient Medications Medication Sig Dispense Refill lenalidomide (REVLIMID) 5 mg capsule TAKE 1 CAPSULE BY MOUTH ONCE DAILY FOR 21 DAYS ON AND 7 DAYS OFF 21 capsule 0 furosemide (LASIX) 40 mg tablet Take 40 mg by mouth as needed. prochlorperazine (COMPAZINE) 10 mg tablet TAKE 1 TABLET BY MOUTH EVERY 6 HOURS NEEDED 90 tablet 2 ondansetron orally disintegrating (ZOFRAN ODT) 4 mg disintegrating tablet Take 4 mg by mouth every 8 hours as needed. potassium chloride (K-TAB) 10 mEq tablet Take 1 tablet by mouth as needed. omeprazole (PRILOSEC) 40 mg capsule Take 1 capsule by mouth once daily. 90 capsule 1 cholecalciferol, vitamin D3, (VITAMIN D3 50 MCG, 2,000 UNIT, GUMMIES) Take 2,000 Units by mouth onetime only. MAGNESIUM GLYCINATE ORAL Take 400 mg by mouth one time only. risperiDONE (RISPERDAL) 0.25 mg tablet Take 2 tablets by mouth daily at bedtime. 60 tablet 2 busPIRone (BUSPAR) 7.5 mg tablet Take 7.5 mg by mouth two times a day. COLLAGEN MISC 1 Tablespoonful once daily. venlafaxine ER (EFFEXOR XR) 37.5 mg 24 hr capsule Take three capsules by mouth once daily. methadone (DOLOPHINE) 5 mg tablet Take 2.5 mg by mouth two times a day. (Patient not taking: Reported on 10/11/2024) No current facility-administered medications for this visit. ALLERGIES: Adhesive Tape (Rosins), Penicillins, Vicodin [Hydrocodone- Acetaminophen], and Latex PERSONAL HISTORY: Social History Tobacco Use Smoking status: Former Current packs/day: 0.00 Types: Cigarettes Start date: 06/23/1992 Quit date: 06/23/1997 Years since quittin.3 Smokeless tobacco: Never Tobacco comments: quit smoking cigarettes in 1984 but only had smoked for few years approximately 1 pack/week Vaping Use Vaping status: Never Used Substance Use Topics Alcohol use: Not Currently Comment: socially Drug use: No FAMILY HISTORY: FAMILY HISTORY Problem Relation Age of Onset Allergies Brother Hypertension Brother Allergies Sister Breast Cancer Sister Anesthesia Mother Thyroid Mother other (valve replacement) Mother Hypertension Sister Thyroid Sister No Known Problems Paternal Grandmother Ischemic Heart Disease Father Hypertension Father Lung Cancer Father other (CLL) Father Chronic lymphocytic leukemia Heart Maternal Grandmother Colon Cancer Maternal Grandfather Heart Attack Paternal Grandfather 50 Anxiety disorder Brother Hypertension Brother No Known Problems Daughter No Known Problems Son REVIEW OF SYMPTOMS: The review of systems data was entered by the nurse and reviewed by me There are no exam notes on file for this visit. PHYSICAL EXAMINATION: General: The patient is 59 year old female, well nourished, well hydrated in no acute distress. Thepatient is oriented to time, place, and person. VITALS: Blood pressure 150/98, pulse 94, temperature 36.1 C (97 F), height 154.9 cm (5' 1), zgtone94.2 kg (212 lb), SpO2 98%. Body mass index is 40.06 kg/m . HEENT: Normal cephalic, ataumatic, pupils are equally round, sclera are anicteric, mucous membranesare moist, oropharynx is clear. Neck has no masses, asymmetry or lymphadenopathy. Thyroid exam no hard nodules. Respiratory: Clear to auscultation and percussion. Normal respiratory excursion and pattern. Cardiac: Examination is regular rate and rhythm. Abdominal exam: Soft, nontender, with no palpable masses. No hepatosplenomegaly. No palpable hernias. Rectal exam: exam deferred Extremities: no clubbing, cyanosis or edema. No adenopathy. Other: LABORATORY VALUES: As Noted RADIOLOGIC STUDIES: As Noted Assessment IMPRESSION: NODULE - left THYROID PLAN: I plan to perform an FNAC of the left Thyroid. Diagnoses: (E04.1) Uninodular goiter (primary encounter diagnosis) Return to Clinic: The patient is instructed to follow-up with me 1 week post operatively. Melissa Cunningham III, MD * Tahir Nugent, BICYCLE MECHANIC - 10/29/2024 3:41 PM EST REVIEW OF SYSTEMS: General: The patient notes fatigue, denies weight loss, denies weight gain, notes feeling hot, and denies feelings of cold. Eyes: The patient denies glaucoma, denies eye injury/surgery, does not wear glasses or contacts. Ear/Nose/Throat: The patient notes allergies, denies hayfever, denies ear infections, and denies bloody noses. Cardiovascular: The patient denies chest pain, denies heart disease, denies high blood pressure,denies cardiac stent, denies prior heart attack, denies irregular heart beat, denies high cholesterol, denies poor circulation, denies heart failure, other cardiac issues, denies claudication, denies cold feet, denies peripheral arterial stent. Respiratory: The patient denies tuberculosis, denies pneumonia, denies frequent cough, denies pulmonary embolism, denies shortness of breath, and denies coughing up blood. Gastrointestinal: The patient denies difficulty swallowing, notes acid reflux, denies ulcers, denies vomiting, denies jaundice/hepatitis, denies gallbladder problems, denies black or tarry stools, denies hemorrhoids, denies bleeding from rectum, denies diverticulitis, notes constipation, notes diarrhea, denies loss of stool control, and denies hernias. Kidney/Bladder: The patient denies kidney stones, denies urine infections, and denies bloody urine. Skin: The patient denies a history of skin cancer, denies bleeding/changing moles, and denies a history of skin rash. Neurologic: The patient denies a history of epilepsy/convulsions, denies headaches, denies head/spinal injuries, and denies stroke/TIA. Psychiatric: The patient denies psychiatric medications, denies depression, and denies voices, denies substance abuse. Endocrine: The patient denies thyroid disorders, denies diabetes, and denies hormonal problems. Hematologic: The patient denies a history of bruising, denies bleeding, and denies anemia, denies blood clots. Infections: The patient denies a history of measles and mumps, denies rheumatic fever, and denies sexually transmitted diseases. Musculoskeletal: The patient denies back pain/injury, denies back problems, denies sciatica, deniesknee/foot trouble, denies arthritis, or denies gout. When was patient's last Mammogram screening? unknown Last Colonoscopy: unknown Tahir Nugent LPN documented in [facility] encounterLuther[facility]01-[facility]-2025 Telephone encounter Note * Telephone Encounter - Nichole Valldaares - 10/24/2024 9:04 AM EST Scheduled with patient [facility] Work Phone: 1(986) 691-396301-15-2025 Miscellaneous Notes* Telephone Encounter - Nichole Valladares - 10/24/2024 9:04 AM EST Scheduled with patient * Telephone Encounter - Sarah Parham - 10/24/2024 8:58 AM EST Called patient and left a vm to return our call * Telephone Encounter - Shay Smiley - 10/22/2024 12:55 PM EST Returned call to patient. Recommendation from US is for FNA of thyroid nodule. Reviewed recommendation with patient. Pt acknowledged. Will work to get this set up. Shay Smiley APRN.DEVELOPMENT COACH * Telephone Encounter - Nichole Valladares - 10/22/2024 9:25 AM EST Patient received message from this morning regarding findings from US. She is asking what is thenext step. documented in this encounterLuther[facility] Hospital01-15-2025 Telephone encounter Note * Telephone Encounter - Sarah Parham - 10/24/2024 8:58 AM EST Called patient and left a vm to return our call [facility]01-13-2025 Telephone encounter Note* Telephone Encounter - Shay Smiley - 10/22/2024 12:55 PM EST Returned call to patient. Recommendation from US is for FNA of thyroid nodule. Reviewed recommendation with patient. Pt acknowledged. Will work to get this set up. Shay Smiley APRN.DEVELOPMENT COACH [facility] Work Phone: 1([phone]) 161-969801-13-2025 Telephone encounter Note* Telephone Encounter - Nichole Valladares - 10/22/2024 9:25 AM EST Patient received message from this morning regarding findings from US. She is asking what is thenext step. [facility]01-09-[facility] History of Present illness Narrative* Ysabel Abbasi RDMS - 10/18/2024 3:15 PM EST Radiology Service Progress Note PATIENT NAME: Alvino Nina DATE OF SERVICE: October 18, 2024 TIME: 3:09 PM PATIENT IDENTITY VERIFICATION COMPLETED USING TWO (2) IDENTIFIERS: Name and Date of confirmedby patient verbally. FALL SCREENING: Has the patient had 2 falls in the last year or 1 fall with injury or currently using an Ambulatory Assistive Device (Walker, Cane, Wheelchair, Crutches, etc.)? No PATIENT GENDER DATA: Female. status: : No status: NO. PATIENT RELEVANT IMPLANT DATA REVIEWED: Not Applicable PATIENT PRESENTS WITH AN IMPLANTABLE OR ATTACHED PEDIATRICIAN/MEDICAL DOCTOR: No RADIOLOGY DEPARTMENT: Ultrasound PERIPHERAL IV DATA: Not applicable SIGNED BY: Ysabel Abbasi RDMS T October 18, 2024 3:09 PM documented in this encounterL[facility]25 Telephone encounter Note * Telephone Encounter - Sangeeta Garsia LPN - 10/16/2024 9:25 AM EST RX [facility]. Sangeeta Garsia LPN [facility] Miscellaneous Notes* Telephone Encounter - Sangeeta Garsia LPN - 10/16/2024 9:25 AM EST RX [facility]. Sangeeta Garsia LPN documented in this encounterLutheran Hospital01-03-2025 Telephone encounter Note * Telephone Encounter - Paris Asencio LISW - 10/12/2024 9:42 AM EST SOCIAL WORK FOLLOW UP NOTE: [facility] spoke with pt and was able to secure a magy from [employer] for $12,000 for assistance paying for Revlimid. [facility] faxed magy information to [facility] this date. Magy details: Active: 10/11/24-10/03/25 Rx ID: [id number] Rx PCN: [id number] Rx GRP: [id number] Magy approval letter and Rx Card information sent to internal scanning as well. JULIA Tran-Cherise [facility]01-03-[facility] Miscellaneous Notes* Telephone Encounter - Paris Asencio LISW - 10/12/2024 9:42 AM EST SOCIAL WORK FOLLOW UP NOTE: [facility] spoke with pt and was able to secure a magy from [employer] for $12,000 for assistance paying for Revlimid. [facility] faxed magy information to [facility] this date. Magy details: Active: 10/11/24-10/03/25 Rx ID: [id number] Rx PCN: [id number] Rx GRP: [id number] Magy approval letter and Rx Card information sent to internal scanning as well. JULIA Tran-Cherise * Telephone Encounter - Jadon Styles DO - 10/11/2024 1:03 PM EST Thank you. Rx sent. Jadon Styles DO * Telephone Encounter - Katie Vega LPN - 10/11/2024 11:06 AM EST Patient agreeable to a trial of Revlimid. Rx pended. [place]- patient had a [place] Magy last year. Could you look into Revlimid patient assistanceagain? Katie Vega LPN * Telephone Encounter - Jadon Styles DO - 10/10/2024 1:50 PM EST Good news. PET scan shows no active sites of myeloma currently. I recommend she consider going backon Revlimid maintenance 5 mg dose. Nausea was much worse with Velcade. So I think another trial of Revlimid is warranted. See if she is okay with that. documented in this encounterLuther[facility] Hospital01-02-2025 Telephone encounter Note * Telephone Encounter - Jadon Styles DO - 10/11/2024 1:03 PM EST Thank you. Rx sent. Jadon Styles DO [facility]01-[facility] History of Present illness Narrative* Shay Smiley - 10/11/2024 1:00 PM EST Alvino Nina 1965 10/11/2024 Oncologic problem(s): 1) Multiple myeloma. Elements copied from Dr. Heath's note dated 12/07/2023 have been reviewed and updated where appropriate, and all reflect current assessment and medical decision making during today's encounter. HISTORY OF PRESENT ILLNESS: Alvino Emily Nina is a 57 year old female had back pain and MRI scan lumbar spine without contrast showed an acute mild compression fracture at superior end plate of L5.Spinal stenosis at L4 to L5. 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 She continued to have significant pain in her lower back which limited her movement and daily activity. She was on morphine, oxycodone and Westover which caused significant nausea A follow-up MRI scan of the thoracic spine on 06/09/2020 also showed acute moderate wedge compression fracture at T11 without obvious protrusion into the spinal canal. There were no obvious lytic lesions or marrow infiltrations in her thoracic or lumbar spine. Liver MRI in January 2023 noted pancreatic cyst, suggested yearly follow up x 5 years. Previous treatment: 1) RvD - lenalidomide, bortezomib, dexamethasone (CR) 2) ASCT 01/15/2021. 4) Lenalidomide maintenance. Stopped May 2024 secondary to ongoing nausea. 3) Botezomib every other week maintenance. Current therapy: 1) Mayra Presents for ongoing oncologic management. Interim history: Pt presents today for labs and follow up with her sisters. Had started bortezomib on an every other week schedule for maintenance. Nausea was worse than it was with lenalidomide. Nausea better however since discontinuing bortezomib. Scopolamine patch does seem to help. See TE. PET shows no lytic lesions. Reviewed labs and general recommendations for maintenance therapy. Rx was sent in for 5mg of revlimid. She has not received yet. She continues to have nausea without any chemotherapy medications. On narcotic pain medications andantiemetics, would recommend bowel regimen to see if constipation may be contributing. Could try metamucil gummies. She reports that she doesn't necessarily feel constipated but experiences more of afull feeling . Otherwise denies new issues. Denies recent illness. No fevers. Denies bleeding. Reviewed recommendations for thyroid US. Per pts sister she and their mother both have thyroid issues. Plan to check labs with next set. PAST MEDICAL HISTORY: PAST MEDICAL HISTORY Diagnosis Date Benign renal tumor unsure of malignancy Cancer of right kidney (HCC) Compression fracture of L5 vertebra ([facility]) 05/2020 Compression fracture of T11 vertebra ([facility]) 06/09/2020 acute moderate compression fx withou obvious protrusion into the spinal canal, seen on MRI Endometriosis Environmental allergies Immunodeficiency ([facility]) 03/04/2021 Irregular heart beat Lytic lesion of bone on x-ray 06/25/2020 skull, bilateral humeri, bilateral femurs and possibly the left tibial plateau Multiple myeloma not having achieved remission ([facility]) 06/25/2020 Multiple myeloma not having achieved remission ([facility]) 06/25/2020 Osteopenia 06/25/2020 S/P autologous bone marrow transplantation ([facility]) 01/13/2021 Day: +13 Protocol(s): Auto 3422 1C Melphalan 200 Preparative regimen: melphalan Mobilization regimen: Neupogen Stem cell source: Stem cells CD34 cell dose (x10e6/kg): 5.14 Date of transplant: 01/15/2021 PAST SURGICAL HISTORY: PAST SURGICAL HISTORY Procedure Laterality Date BACK SURGERY HX EGD 03/03/2023 FNA WITH IMAGING 09/12/2012 U/S FNA left thyroid nodule KIDNEY BIOPSY Right 2012 KYPHOPLASTY - LUMBAR 06/05/2020 L5 LAPS ABD PRTM&OMENTUM DX W/WO SPEC BR/WA SPX 1984 Laparoscopy LIG/TRNSXJ FLP TUBE ABDL/VAG APPR UNI/BI 2011 Tubal ligation, with ablation TONSILLECTOMY HX TUMOR REMOVAL (SPECIFY LOCATION) HX Right 2012 kidney CURRENT MEDICATIONS: furosemide (LASIX) 40 mg tablet Take 40 mg by mouth as needed. prochlorperazine (COMPAZINE) 10 mg tablet TAKE 1 TABLET BY MOUTH EVERY 6 HOURS NEEDED ondansetron orally disintegrating (ZOFRAN ODT) 4 mg disintegrating tablet Take 4 mg by mouth every 8 hours as needed. potassium chloride (K-TAB) 10 mEq tablet Take 1 tablet by mouth as needed. omeprazole (PRILOSEC) 40 mg capsule Take 1 capsule by mouth once daily. cholecalciferol, vitamin D3, (VITAMIN D3 50 MCG, 2,000 UNIT, GUMMIES) Take 2,000 Units by mouth onetime only. MAGNESIUM GLYCINATE ORAL Take 400 mg by mouth one time only. risperiDONE (RISPERDAL) 0.25 mg tablet Take 2 tablets by mouth daily at bedtime. busPIRone (BUSPAR) 7.5 mg tablet Take 7.5 mg by mouth two times a day. COLLAGEN MISC 1 Tablespoonful once daily. venlafaxine ER (EFFEXOR XR) 37.5 mg 24 hr capsule Take three capsules by mouth once daily. lenalidomide (REVLIMID) 5 mg capsule TAKE 1 CAPSULE BY MOUTH ONCE DAILY FOR 21 DAYS ON AND 7 DAYS OFF methadone (DOLOPHINE) 5 mg tablet Take 2.5 mg by mouth two times a day. (Patient not taking: Reported on 10/11/2024) ALLERGIES/INTOLERANCES: ALLERGIES Allergen Reactions Adhesive Tape (Mariam* Rash Penicillins Hives Other reaction(s): Unknown Vicodin [Hydrocodon* Intolerance Latex Rash Other reaction(s): rash FAMILY HISTORY: FAMILY HISTORY Problem Relation Age of Onset Allergies Brother Hypertension Brother Allergies Sister Breast Cancer Sister Anesthesia Mother Thyroid Mother other (valve replacement) Mother Hypertension Sister Thyroid Sister No Known Problems Paternal Grandmother Ischemic Heart Disease Father Hypertension Father Lung Cancer Father other (CLL) Father Chronic lymphocytic leukemia Heart Maternal Grandmother Colon Cancer Maternal Grandfather Heart Attack Paternal Grandfather 50 Anxiety disorder Brother Hypertension Brother No Known Problems Daughter No Known Problems Son SOCIAL HISTORY: Social History Tobacco Use Smoking status: Former Current packs/day: 0.00 Types: Cigarettes Start date: 06/23/1992 Quit date: 06/23/1997 Years since quittin.3 Smokeless tobacco: Never Tobacco comments: quit smoking cigarettes in 1984 but only had smoked for few years approximately 1 pack/week Vaping Use Vaping status: Never Used Substance Use Topics Alcohol use: Not Currently Comment: socially Drug use: No REVIEW OF SYSTEMS: All systems reviewed on 10/11/2023 with pertinent positives and negatives as outlined in the intervalhistory. PHYSICAL EXAM: Vitals: Blood pressure 150/92, pulse 78, temperature 36.6 C (97.9 F), temperature source Temporal, weight 95.9 kg (211 lb 8 oz), SpO2 96%. Well-appearing and in no acute distress. EYES: Sclerae are anicteric bilaterally. CARDIOVASCULAR: Rhythm is regular. ABDOMEN: The abdomen is nondistended. Extremities: No edema SKIN: No jaundice. I have performed the physical exam today (10/11/2023) and have edited the note to correlate with current findings. LABS: IMAGING: MRI pancreas 01/17/2024: IMPRESSION: Stable pancreatic cystic focus. Likely sidebranch IPMN. No focal pancreatic enlargement, pathologic enhancement or suspicious lesion Stable hepatic cysts, and stable left hepatic lobe hemangioma. Renal cysts. No suspicious renal lesion. 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 -IgA by RUFINA only. -Baseline kappa 1,073.3 mg/L (06/23/2020) -Serum light chains and ratio are normal. No serum monoclonal protein by electrophoresis or immunofixation but spot urine showing kappa light chain. -Previously presented to tumor board. Consensus recommendation was to resume maintenance therapy with bortezomib. -Intolerant to that secondary to worsening nausea and headache. -Increase in lower back pain probably related to degenerative changes and foraminal stenosis as well as trochanteric bursitis. -Referral to Dr. Brannon at [facility] who has seen her in the past for thoughts on facet joint injection or epidural injection or other intervention for further help with pain. -Whole-body PET scan, no lytic lesions, incidental thyroid nodule Plan: - thyroid US, check TSH, T4 with next set of labs - maintenance revlimid, 5 mg - see TE. - awaiting magy and medication - advised to call once she receives drug. Will need baseline labs and routine monitoring. Shay Smiley APRN.DEVELOPMENT COACH I spent a total of 35 minutes on the date of the service which included preparing to see the patient, [id number] patient care, completing clinical documentation, and performing a medically appropriate examination. Portions of this note including HPI, ROS, impression/plan may have been copied forward as to provide important historical information essential in contributing to medical decision making. Documentation has been reviewed and edited as necessary to support clinical decision making for today's visit and to reflect my own independent evaluation of this patient. documented in this encounterLuther[facility] Hospital01-02-2025 Telephone encounter Note * Telephone Encounter - Katie Vega LPN - 10/11/2024 11:06 AM EST Patient agreeable to a trial of Revlimid. Rx pended. [place]- patient had a Hedvig Magy last year. Could you look into Revlimid patient assistanceagain? Katie Vega LPN [facility]01-[facility] Telephone encounter Note* Telephone Encounter - Jadon Styles DO - 10/10/2024 1:50 PM EST Good news. PET scan shows no active sites of myeloma currently. I recommend she consider going backon Revlimid maintenance 5 mg dose. Nausea was much worse with Velcade. So I think another trial of Revlimid is warranted. See if she is okay with that. [facility]12[facility] History of Present illness Narrative* RupertSylvie whitmore, RT(R) - 09/25/2024 7:00 AM EST RADIOLOGY SERVICE PROGRESS NOTE SERVICE DATE: 09/25/2024 SERVICE TIME: 7:07 AM PATIENT IDENTITY VERIFICATION COMPLETED USING TWO (2) STANDARD IDENTIFIERS: Name and Date of confirmed by patient verbally FALL SCREENING: Has the patient had 2 falls in the last year or 1 fall with injury or currently using an Ambulatory Assistive Device (Walker, Cane, Wheelchair, Crutches, etc.)? Yes, Patient High Riskfor Falls What interventions were put in place to prevent falls during this visit? Increased Observations by Caregivers PATIENT GENDER DATA: .female : No ALLERGIES: Reviewed and unchanged MEDICATIONS REVIEWED: No PATIENT RELEVANT IMPLANT DATA REVIEWED: Not Applicable PATIENT PRESENTS WITH AN IMPLANTABLE OR ATTACHED PEDIATRICIAN/MEDICAL DOCTOR: No CREATININE: Creatinine Date Value Ref Range Status 08/23/2024 0.91 0.58 - 0.96 mg/dL Final 07/26/2024 0.92 0.58 - 0.96 mg/dL Final 07/12/2024 0.98 (H) 0.58 - 0.96 mg/dL Final Estimated Glomerular Filtration Rate Date Value Ref Range Status 08/23/2024 72 >=60 mL/min/1.73m Final Comment: Estimated Glomerular Filtration Rate (eGFR) is calculated using the 2020 CKD-EPI creatinine equation. This equation utilizes serum creatinine, sex, and age as parameters. The creatinine assay has traceable calibration to isotope dilution- mass spectrometry. Refer to KDIGO guidelines for clinical interpretation. In patients with unstable renal function, e.g. those with acute kidney injury, the eGFRmay not accurately reflect actual GFR. eGFR- Date Value Ref Range Status 10/27/2021 >60 Final P.O.C.T. RESULTS: N/A September 25, [address] PERFORMED: No IV SITE: Ambulatory: A peripheral IV was started in the Right antecubital site with a Angio cath: 24 gauge. POST EXAM PIV STATUS: Discontinued PROCEDURE TYPE: NM INJECT: PET/CT WHOLE BODY SCAN. 18.4 mCi F18 FDG. No other medications given.. ADMINISTRATION TIME: 0700 PATIENT DISCHARGED TO: Ambulatory patient, left CT department area. Is this a therapy: No A Diagnostic radioactive procedure has taken place, with no further precautions necessary other than routine body substance precautions. More information regarding radiation safety can be found usingthis link: [email or web address] 20Diagnostic%20Nuclear%20Medicine%[email or web address] SIGNATURE: RAYSA De Los Santos) PATIENT NAME: Alvino Nina DATE: September 25, 2024 TIME: 7:07 AM PAGER/CONTACT #: documented in this encounterLutheran Hospital12-17-2024 NoteHNO ID: [id number] Author: SYLVIE HERNANDEZ RT (R) Service: Nuclear Medicine Author Type: Technologist Type: Progress Notes Filed: 09/25/2024 07:08 Note Text: RADIOLOGY SERVICE PROGRESS NOTE SERVICE DATE: 09/25/2024 SERVICE TIME: 7:07 AM PATIENT IDENTITY VERIFICATION COMPLETED USING TWO (2) STANDARD IDENTIFIERS: Name and Date of confirmed by patient verbally FALL SCREENING: Has the patient had 2 falls in the last year or 1 fall with injury or currently using an Ambulatory Assistive Device (Walker, Cane, Wheelchair, Crutches, etc.)? Yes, Patient High Risk for Falls What interventions were put in place to prevent falls during this visit? Increased Observations by Caregivers PATIENT GENDER DATA: .female : No ALLERGIES: Reviewed and unchanged MEDICATIONS REVIEWED: No PATIENT RELEVANT IMPLANT DATA REVIEWED: Not Applicable PATIENT PRESENTS WITH AN IMPLANTABLE OR ATTACHED PEDIATRICIAN/MEDICAL DOCTOR: No CREATININE: Creatinine Date Value Ref Range Status 08/23/2024 0.91 0.58 - 0.96 mg/dL Final 07/26/2024 0.92 0.58 - 0.96 mg/dL Final 07/12/2024 0.98 (H) 0.58 - 0.96 mg/dL Final Estimated Glomerular Filtration Rate Date Value Ref Range Status 08/23/2024 72 >=60 mL/min/1.73m? Final Comment: Estimated Glomerular Filtration Rate (eGFR) is calculated using the 2020 CKD-EPI creatinine equation. This equation utilizes serum creatinine, sex, and age as parameters. The creatinine assay has traceable calibration to isotope dilution-mass spectrometry. Refer to KDIGO guidelines for clinical interpretation. In patients with unstable renal function, e.g. those with acute kidney injury, the eGFR may not accurately reflect actual GFR. eGFR- Date Value Ref Range Status 10/27/2021 >60 Final P.O.C.T. RESULTS: N/A September 25, [address] PERFORMED: No IV SITE: Ambulatory: A peripheral IV was started in the Right antecubital site with a Angio cath: 24 gauge. POST EXAM PIV STATUS: Discontinued PROCEDURE TYPE: NM INJECT: PET/CT WHOLE BODY SCAN. 18.4 mCi F18 FDG. No other medications given.. ADMINISTRATION TIME: 0700 PATIENT DISCHARGED TO: Ambulatory patient, left CT department area. Is this a therapy: No A Diagnostic radioactive procedure has taken place, with no further precautions necessary other than routine body substance precautions. More information regarding radiation safety can be found using this link: [email or web address]%20Nuclear%20Medicine%[email or web address] SIGNATURE: RT Magali(R) PATIENT NAME: Alvino Nina DATE: September 25, 2024 TIME: 7:07 AM [phone] History of Present illness Narrative* Winnie Callejas PA-C - 09/19/2024 1:51 PM EST SPINE SURGICAL TRIAGE: Requesting to see Dr. Brannon Neck pain, Mid back pain, LBP, trouble walking. Conservative treatment: Adina She was seen by Dr. Brannon in 2020. Will have her scheduled for follow up. * Boni Christine - 09/12/2024 3:34 PM EST Patient name: Alvino Nina Are you being referred by a [facility] Provider or Pain Management Provider at [facility]? No If answer is YES please schedule directly with surgeon, triage does not need to be completed. Is this a self-referral No If not, who is the Referring Provider Jadon Styles, DO Is this a 2nd opinion from another spine surgeon? No Were you offered surgery? No MRI/CT/myelogram within 12 months? Yes If NO, please refer to medical spine or PCP to complete above imaging, triage does not need to be completed If YES, please ask for the name/address of the facility where the MRI/CT/myelogram was completed: [facility] MRI/CT/myelogram viewable in [facility]: Yes If not, please provide [phone] to fax in imaging reports for review. Also, please inform patient to hand carry imaging disc to appointment. XR (spine) within 12 months: No If YES, please ask for the name/address of the facility where the XR was completed: Dr. Ewing's patients: Have you had previous EMG/Nerve Conduction Study, Ultrasound, or MRI for thesesame symptoms? If YES, please ask for the name/address of the facility where they were completed: Requested provider (First and Last name): Anita Brannon Are you interested in a virtual visit if offered? No 1. Where are you having symptoms related to this visit? Neck pain Mid back pain LBP Back pain Yes Leg pain No Arm pain No Neck pain Yes 2. Are you having any of the following symptoms: Difficulty walking Yes Numbness No Weakness No Trouble using your hands? No 3. Have you had any injections or physical therapy in the last 12 months? No If YES then please ask for the name/address of the facility where the injections and/or physical therapy was completed Have you tried any other kinds of non-surgical treatments in the last 12 months? (For example: NSAIDS, muscle relaxants, analgesics, oral steroids, Chiropractor, Acupuncture): Methadone 4. Are you currently taking daily prescribed narcotic medications for your current symptoms (For example Oxycodone, Hydrocodone, Tramadol, Morphine, Other)? No 5. Have you had previous spinal surgery for this same symptoms? No If YES please ask for the name of facility/address of where the surgery was completed: Additional Comments [phone] (Home Phone) documented in this encounterLutheran Hospital12-05-2024 Telephone encounter Note * Telephone Encounter - Ana, Jo-Ann - 09/13/2024 3:41 PM EST Spoke with patient, advising below, and scheduled labs for 09/14. Jo-Ann Perez [facility] Miscellaneous Notes* Telephone Encounter - Jo-Ann Perez - 09/13/2024 3:41 PM EST Spoke with patient, advising below, and scheduled labs for 09/14. Jo-Ann Perez * Telephone Encounter - Jadon Styles DO - 09/13/2024 3:10 PM EST Her iron is on the low side. Please ask her to get additional lab work to confirm whether or not she has underlying iron deficiency. This may be one of the reasons she has been feeling poorly. Jadon Styles DO documented in this encounterLutheran Hospital12-05-2024 Telephone encounter Note * Telephone Encounter - Jadon Styles DO - 09/13/2024 3:10 PM EST Her iron is on the low side. Please ask her to get additional lab work to confirm whether or not she has underlying iron deficiency. This may be one of the reasons she has been feeling poorly. Jadon Styles DO [facility]12[facility] History of Present illness Narrative* Jadon Styles DO - 09/11/2024 4:10 PM EST Oncologic problem(s): 1) Multiple myeloma. Elements copied from Dr. Heath's note dated 12/07/2023 have been reviewed and updated where appropriate, and all reflect current assessment and medical decision making during today's encounter. HISTORY OF PRESENT ILLNESS: Alvino Nina is a 57 year old female had back pain and MRI scan lumbar spine without contrast showed an acute mild compression fracture at superior end plate of L5.Spinal stenosis at L4 to L5. 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 She continued to have significant pain in her lower back which limited her movement and daily activity. She was on morphine, oxycodone and [place] which caused significant nausea A follow-up MRI scan of the thoracic spine on 06/09/2020 also showed acute moderate wedge compression fracture at T11 without obvious protrusion into the spinal canal. There were no obvious lytic lesions or marrow infiltrations in her thoracic or lumbar spine. Liver MRI in January 2023 noted pancreatic cyst, suggested yearly follow up x 5 years. Previous treatment: 1) RvD - lenalidomide, bortezomib, dexamethasone (CR) 2) ASCT 01/15/2021. 4) Lenalidomide maintenance. Stopped May 2024 secondary to ongoing nausea. 3) Botezomib every other week maintenance. Current therapy: 1) Mayra Presents for ongoing oncologic management. Interim history: Had started bortezomib on an every other week schedule for maintenance. Nausea was worse than it was with lenalidomide. She was also getting bad headaches lasting several days after each dose of bortezomib. Having worsening lower back pain that radiates into the top of the buttocks bilaterally and more laterally on the left. Feels lightheaded all the time and has a sick feeling all throughout her. Nausea much better however since discontinuing bortezomib. PAST MEDICAL HISTORY: PAST MEDICAL HISTORY Diagnosis Date Benign renal tumor unsure of malignancy Cancer of right kidney (HCC) Compression fracture of L5 vertebra ([facility]) 05/2020 Compression fracture of T11 vertebra ([facility]) 06/09/2020 acute moderate compression fx withou obvious protrusion into the spinal canal, seen on MRI Endometriosis Environmental allergies Immunodeficiency ([facility]) 03/04/2021 Irregular heart beat Lytic lesion of bone on x-ray 06/25/2020 skull, bilateral humeri, bilateral femurs and possibly the left tibial plateau Multiple myeloma not having achieved remission ([facility]) 06/25/2020 Multiple myeloma not having achieved remission ([facility]) 06/25/2020 Osteopenia 06/25/2020 S/P autologous bone marrow transplantation (FORM[facility]) 01/13/2021 Day: +13 Protocol(s): Auto 3422 1C Melphalan 200 Preparative regimen: melphalan Mobilization regimen: Neupogen Stem cell source: Stem cells CD34 cell dose (x10e6/kg): 5.14 Date of transplant: 01/15/2021 PAST SURGICAL HISTORY: PAST SURGICAL HISTORY Procedure Laterality Date BACK SURGERY HX EGD 03/03/2023 FNA WITH IMAGING 09/12/2012 U/S FNA left thyroid nodule KIDNEY BIOPSY Right 2012 KYPHOPLASTY - LUMBAR 06/05/2020 L5 LAPS ABD PRTM&OMENTUM DX W/WO SPEC BR/WA SPX 1984 Laparoscopy LIG/TRNSXJ FLP TUBE ABDL/VAG APPR UNI/BI 2011 Tubal ligation, with ablation TONSILLECTOMY HX TUMOR REMOVAL (SPECIFY LOCATION) HX Right 2012 kidney CURRENT MEDICATIONS: ondansetron orally disintegrating (ZOFRAN ODT) 4 mg disintegrating tablet Take 4 mg by mouth every 8 hours as needed. potassium chloride (K-TAB) 10 mEq tablet Take 1 tablet by mouth every 12 hours. omeprazole (PRILOSEC) 40 mg capsule Take 1 capsule by mouth once daily. methadone (DOLOPHINE) 5 mg tablet Take 2.5 mg by mouth two times a day. cholecalciferol, vitamin D3, (VITAMIN D3 50 MCG, 2,000 UNIT, GUMMIES) Take 2,000 Units by mouth onetime only. MAGNESIUM GLYCINATE ORAL Take 400 mg by mouth one time only. risperiDONE (RISPERDAL) 0.25 mg tablet Take 2 tablets by mouth daily at bedtime. prochlorperazine (COMPAZINE) 10 mg tablet Take 1 tablet by mouth every 6 hours as needed. acyclovir (ZOVIRAX) 400 mg tablet Take 1 tablet by mouth two times a day. busPIRone (BUSPAR) 7.5 mg tablet Take 7.5 mg by mouth two times a day. COLLAGEN MISC 1 Tablespoonful once daily. venlafaxine ER (EFFEXOR XR) 37.5 mg 24 hr capsule Take three capsules by mouth once daily. ALLERGIES/INTOLERANCES: ALLERGIES Allergen Reactions Adhesive Tape (Mariam* Rash Penicillins Hives Other reaction(s): Unknown Vicodin [Hydrocodon* Intolerance Latex Rash Other reaction(s): rash FAMILY HISTORY: FAMILY HISTORY Problem Relation Age of Onset Allergies Brother Hypertension Brother Allergies Sister Breast Cancer Sister Anesthesia Mother Thyroid Mother other (valve replacement) Mother Hypertension Sister Thyroid Sister No Known Problems Paternal Grandmother Ischemic Heart Disease Father Hypertension Father Lung Cancer Father other (CLL) Father Chronic lymphocytic leukemia Heart Maternal Grandmother Colon Cancer Maternal Grandfather Heart Attack Paternal Grandfather 50 Anxiety disorder Brother Hypertension Brother No Known Problems Daughter No Known Problems Son SOCIAL HISTORY: Social History Tobacco Use Smoking status: Former Current packs/day: 0.00 Types: Cigarettes Start date: 06/23/1992 Quit date: 06/23/1997 Years since quittin.2 Smokeless tobacco: Never Tobacco comments: quit smoking cigarettes in 1984 but only had smoked for few years approximately 1 pack/week Vaping Use Vaping status: Never Used Substance Use Topics Alcohol use: Not Currently Comment: socially Drug use: No REVIEW OF SYSTEMS: The remaining 10 point review of systems is negative. PHYSICAL EXAM: Vitals: Blood pressure 145/87, pulse 87, temperature 37 C (98.6 F), weight 97.8 kg (215 lb 8 oz), SpO2 99%. Well-appearing and in no acute distress. EYES: Sclerae are anicteric bilaterally. CARDIOVASCULAR: Rhythm is regular. ABDOMEN: The abdomen is nondistended. Extremities: Minimal pitting edema. SKIN: No jaundice. Tender over left greater trochanter. LABS: IMAGING: MRI pancreas 01/17/2024: IMPRESSION: Stable pancreatic cystic focus. Likely sidebranch IPMN. No focal pancreatic enlargement, pathologic enhancement or suspicious lesion Stable hepatic cysts, and stable left hepatic lobe hemangioma. Renal cysts. No suspicious renal lesion. 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 -IgA by RUFINA only. -Baseline kappa 1,073.3 mg/L (06/23/2020) -Serum light chains and ratio are normal. No serum monoclonal protein by electrophoresis or immunofixation but spot urine showing kappa light chain. -Previously presented to tumor board. Consensus recommendation was to resume maintenance therapy with bortezomib. -Intolerant to that secondary to worsening nausea and headache. -Reviewed MRI spine and pelvis. Possible active disease in the femurs bilaterally. -Increase in lower back pain probably related to degenerative changes and foraminal stenosis as well as trochanteric bursitis. Plan: -Whole-body PET scan. -If active disease then we will resume treatment with daratumumab and pomalidomide. -Referral to Dr. Brannon at [facility] who has seen her in the past for thoughts on facet joint injection or epidural injection or other intervention for further help with pain. Portions of this documentation were copied and pasted from my previous office visit note dated 06/21/2024 in order to provide a cohesive continuity of the history. The note has been reviewed and edited and updated as necessary. Jadon Styles DO [facility] Nurse Note* Sangeeta Garsia LPN - 09/11/2024 3:59 PM EST Est. Pt, discuss recent MRI results Pt. Notes pitting edema up to thighs x 3 weeks Sangeeta Garsia LPN [facility]12-[facility] Nurse Note* Sangeeta Garsia LPN - 09/11/2024 3:59 PM EST Est. Pt, discuss recent MRI results Pt. Notes pitting edema up to thighs x 3 weeks Sangeeta Garsia LPN documented [facility]11-[facility]24 Telephone encounter Note * Telephone Encounter - Katie Vega LPN - 09/03/2024 1:37 PM EST Patient notified and will try going without buspirone for a few days to see if this helps. Katie Vega LPN [facility]11-25-[facility]24 Miscellaneous Notes* Telephone Encounter - Katie Vega LPN - 09/03/2024 1:37 PM EST Patient notified and will try going without buspirone for a few days to see if this helps. Katie Vega LPN * Telephone Encounter - Jadon Styles DO - 09/03/2024 1:33 PM EST Several of her medications are well-known for causing dry mouth including buspirone, methadone, Compazine, risperidone and venlafaxine. I also found the buspirone can commonly cause nausea as well. Maybe she should try going without it for a few days and see if that helps her nausea overall. Jadon Styles DO * Telephone Encounter - Katie Vega LPN - 09/03/2024 12:28 PM EST Patient here today for MRI. Stopped in our office c/o thirst, dry mouth and occasional weakness and dizziness. Was able to ambulate back to a patient room without difficulty, gait steady. She was wondering if she was dehydrated. States had 3 episodes of diarrhea in the last week. C/O nausea (nothing new), denies vomiting. Denies SOB or chest pain. Patient states she takes Lasix 40 mg about every 3 days for occasional fluid retention (prescribed by palliative care). BP 121/84, HR 88, temp 99.0. Had labs 08/23/2024. Patient drinks approximately 1L of flavored, carbonated water daily and coffee in the morning. Encouraged patient to increase regular water intake and elevate legs while sitting. Also encouraged patient to take BP at home if she feels weak/dizzy and keep track of when she takes Lasix and when the dizziness occurs. Discussed S/S of when to report to ED if needed. Katie Vega LPN documented [facility]11-[facility]24 Telephone encounter Note * Telephone Encounter - Jadon Styles DO - 09/03/2024 1:33 PM EST Several of her medications are well-known for causing dry mouth including buspirone, methadone, Compazine, risperidone and venlafaxine. I also found the buspirone can commonly cause nausea as well. Maybe she should try going without it for a few days and see if that helps her nausea overall. Jadon Styles DO [facility]11-25-[facility]24 Telephone encounter Note* Telephone Encounter - Katie Vega LPN - 09/03/2024 12:28 PM EST Patient here today for MRI. Stopped in our office c/o thirst, dry mouth and occasional weakness and dizziness. Was able to ambulate back to a patient room without difficulty, gait steady. She was wondering if she was dehydrated. States had 3 episodes of diarrhea in the last week. C/O nausea (nothing new), denies vomiting. Denies SOB or chest pain. Patient states she takes Lasix 40 mg about every 3 days for occasional fluid retention (prescribed by palliative care). BP 121/84, HR 88, temp 99.0. Had labs 08/23/2024. Patient drinks approximately 1L of flavored, carbonated water daily and coffee in the morning. Encouraged patient to increase regular water intake and elevate legs while sitting. Also encouraged patient to take BP at home if she feels weak/dizzy and keep track of when she takes Lasix and when the dizziness occurs. Discussed S/S of when to report to ED if needed. Katie Vega LPN [facility]11-25-[facility] History of Present illness Narrative* Tahir Gee, RT(R) - 09/03/2024 10:00 AM EST Radiology Service Progress Note DATE OF SERVICE: September 03, 2024 TIME: 10:22 AM PATIENT IDENTITY VERIFICATION COMPLETED USING TWO (2) STANDARD IDENTIFIERS: Name and Date of confirmed by patient verbally. FALL SCREENING: Has the patient had 2 falls in the last year or 1 fall with injury or currently using an Ambulatory Assistive Device (Walker, Cane, Wheelchair, Crutches, etc.)? Yes, Patient High Riskfor Falls What interventions were put in place to prevent falls during this visit? Instructed Patient to Callfor Help if Needed, Offered Assistance with Transfers/Clothing, Instructed Patient to Remain Seated(Not on Exam Table) Until Exam, and Increased Observations by Caregivers PATIENT GENDER DATA: Female. status: : No status: NO. PATIENT RELEVANT IMPLANT DATA REVIEWED: Yes PATIENT PRESENTS WITH AN IMPLANTABLE OR ATTACHED PEDIATRICIAN/MEDICAL DOCTOR: No ALLERGIES: Reviewed and unchanged CONTRAST ALLERGY: NO. EXAM: MRI - CONTRAST TYPE: GROUP II PERIPHERAL IV DATA: Ambulatory: A peripheral IV was started in the Right antecubital site with a Angio cath: 22 gauge. RADIOLOGY DEPARTMENT: MR; Exam(s) Completed: Head: Routine Brain Lower MSK: Pelvis, bilateral Spine: Cervical spine, Thoracic spine, and Lumbar spine SIGNATURE: RT Danny(R) PATIENT NAME: Alvino Nina DATE: September 03, 2024 TIME: 10:22 AM documented in this [facility]11-14-[facility] History of Present illness Narrative* Shannan Stevens RN - 08/23/2024 2:44 PM EST Pt states that due to side effects of the Velcade Dr Styles has held the medication until scans are completed. Note from [facility] also states that Dr Styles is holding Velcade. Encouraged to take tylenol every 4-6 hours for the next 24 hours due to possible bone pain. Shannan Stevens RN documented in this encounterL[facility]11-13-2024 Telephone encounter Note * Telephone Encounter - Katie Vega LPN - 08/22/2024 8:29 AM EST Per medication note 08/16/2024- patient is holding for now. Katie Vega LPN [facility]-13-[facility] Miscellaneous Notes* Telephone Encounter - Katie Vega LPN - 08/22/2024 8:29 AM EST Per medication note 08/16/2024- patient is holding for now. Katie Vega LPN documented [facility]11-07-2024 Telephone encounter Note * Telephone Encounter - Heather Cuevas RN - 08/16/2024 11:27 AM EST Patient called with questions pertaining to her medications. Answered her questions. Patient statedunderstanding. Heather Cuevas RN [facility]11-07-[facility] Miscellaneous Notes* Telephone Encounter - Heather Cuevas RN - 08/16/2024 11:27 AM EST Patient called with questions pertaining to her medications. Answered her questions. Patient statedunderstanding. Heather Cuevas RN documented [facility]11-05-2024 Telephone encounter Note * Telephone Encounter - Jo-Ann Perez - 08/14/2024 3:07 PM EST Spoke with patient, cancelling Velcade and scheduling OV as directed. [facility] Miscellaneous Notes* Telephone Encounter - Jo-Ann Perez - 08/14/2024 3:07 PM EST Spoke with patient, cancelling Velcade and scheduling OV as directed. * Telephone Encounter - Heather Cuevas RN - 08/14/2024 2:47 PM EST Called patient, no answer, left a detailed message with the plan moving forward. Per Dr. Masci, we will cancel velcade for now. PSS- please contact/schedule patient for an established complex OV with Dr. Styles after her scans. Thank you. Heather Cuevas RN * Telephone Encounter - Heather Cuevas RN - 08/14/2024 11:14 AM EST Called patient to discuss medication changes. Patient requested that this nurse call her back in 5 minutes. Patient stated she woke up without a headache today. Patient still has nausea issues today. Discussed medication changes with stopping zofran, starting compazine, can increase risperidone to 2 tablets, decrease omeprazole. Patient unable to state if nausea gets better the closer she gets to the next velcade injection. Patient was instructed to create a symptom journal. Patients next OV is in Oct.Patient aware Dr. Styles stated he might change her treatment d/t side effects. This nurse will discuss this more with Dr. Styles. Reached out to PSS who will contact patient to schedule scans. Heather Cuevas RN * Telephone Encounter - Heather Cuevas RN - 08/13/2024 4:44 PM EST Called patient, no answer, left a detailed message. Stop zofran. Switch to compazine. Increase risperidone to 2 tablets at bedtime. Do not take compazine within 6 hours of Risperidone. PSS- please contact patient to schedule scans. This nurse asked patient to call tomorrow to discuss medication changes. Heather Cuevas RN * Telephone Encounter - Heather Cuevas RN - 08/13/2024 4:24 PM EST Patient informed of Dr. Styles's response, stated understanding. Patient stated the nausea was so bad today that she took two Zofran (8 mg tablets) within 2 hours of each other. Patient instructed to only take Zofran every 8 hours. Patient stated the risperidone really helps with the nausea at bedtime but she feels she is going backwards. Patient stated she had nausea prior to starting methadone and BuSpar. Patient stated the nausea hasescalated since the second Velcade shot. Heather Cuevas RN * Telephone Encounter - Jadon Styles DO - 08/13/2024 2:02 PM EST Nocturnal headaches are unusual so to thoroughly evaluate that and the remainder of her pain pleasepend orders for MRI of brain, whole spine and ortho pelvis. In regard to the nausea, Dr. Heath had ordered a gastric emptying study last spring that was normal. I wonder if perhaps one of her other medications such as BuSpar or methadone may be driving the nausea. Can we see if there is any correlation to when she started those medications and the nausea? Jadon Styles DO * Telephone Encounter - Heather Cuevas RN - 08/13/2024 10:04 AM EST Care Coordination Triage Note [facility] Situation: Patient reports Nausea/Vomiting, Other headaches, and Pain/Back or Spine Pain/Headache Background: Multiple Myeloma, started velcade 07/12/24. Last dose 08/09/24 Assessment: GENERALIZED PAIN Where is the pain? Back- used to be bra line down, but I feel like its all up and down my spine, neck, left hip. When did you first notice the pain? 2-3 months or over 3 months, progressively getting worse and worse. I feel like I haven't felt good all summer. How intense is the pain right now (scale of 1-10)? It varies, always 5-6 or above How do you describe the pain: sharp, stabbing, aching, collapsing, no burning Does the pain radiate anywhere? No Has the pain changed since it started? Progressively getting worse Is the pain constant or intermittent? Constant What makes it better? Methadone takes the edge off, be still What makes it worse? Moving or trying to do any type of activity, cleaning, folding laundry, etc. What are you taking anything for the pain? Methadone- takes the edge off but still having a lot of pain. Are you doing anything else to help with the pain other than medications? No BACK/SPINE PAIN Does it radiate to the legs or arms? no Do you have any weakness in your upper or lower extremities? no Any new numbness or tingling in the hands or feet? no Any difficulty urinating or having a bowel movement? Alternates between diarrhea and constipation. Any incontinence of bowel or bladder? No HEADACHE PAIN When did you first notice the headache? Right away after first velcade. The very first migraine was 2.5 days after the first dose of velcade. Now she is having headaches in the early childhood assistant hours around 3-4 am. How intense is the pain (scale of 1-10)? 10/10 on the first day of velcade, yesterday the headache pain is 9/10. How would you describe the headache (sharp, dull, pulsating, migraine-like )? Very achy. The painfeels like a migraine if she does not take ibuprofen within the first 15-20 minutes after onset. Is the headache constant or intermittent? Intermittent Do you wake up with headaches? yes Do you have a history of headaches or migraines? No Have you had any recent falls or trauma where you may have hit your head? no Are you taking any medications for headaches including OTC or supplements? 2 tablets of ibuprofen, will lay down, and when she gets up the headache is completely resolved except for yesterday the headache pain came back during the day. Are you doing anything else besides medications to help alleviate headaches such as heat, cold, etc? no Is there anything that makes the headache worse? Noise, if the TV is on, I almost cannot look at the TV. It almost makes me motion sickness Denies photophobia or other visual changes. NAUSEA When did the nausea start? This whole entire summer. It just increasingly gets worse. Yesterday after eating dinner, she had a lot of nausea. She had to take ondansetron 8 mg which she takes duringthe day. Takes Risperidone at bedtime. Updated med list. Is it constant or intermittent? Intermittent Are you taking any anti-nausea medications? Zofran and risperidone. Did you get any relief from this medication? Zofran helps sometimes but yesterday she did not have much relief. Is there anything that makes the nausea worse? Patient stated if she is nauseous she is unable to look at the TV because it makes her feel nauseous. Patient does not wake up nauseous. When was your last bowel movement? 2 days ago. Was it normal for you? Constipation again. Patientstated her belly is bothering her so she feels she needs to have a BM. Patient bought psyllium huskand started using but felt it caused her to have diarrhea. Patient will try 1/2 dose and then increase to full dose after 1 week. What have you been able to eat and drink in the past 24 hours? Patient stated she is full after eating a few bites. Denies a bloated feeling, feels like she just had Thanksgiving dinner because yourtummy is so full. VOMITING Are you also having any vomiting? no Had EGD 2022.. Results copied below. FINAL DIAGNOSIS A. Duodenum, biopsy: - Small bowel mucosa with no significant diagnostic alteration. - No evidence of celiac disease or enteritis. B. Gastric antrum, biopsy: - Oxyntic mucosa with no significant diagnostic alteration. - No morphologic evidence of Helicobacter pylori organisms. C. Distal esophagus, biopsy: - Mildly inflamed cardiofundic-type mucosa, negative for intestinal metaplasia. - Reactive squamous mucosa with no significant inflammation, including no eosinophilia. - Separate scant fragment of unremarkable small bowel epithelium, favor carryover from part A. D. Mid esophagus, biopsy: - Squamous mucosa with no significant diagnostic alteration. - No evidence of esophagitis or eosinophilia. Recommendations: Per [facility], will discuss with Dr. Styles. Heather Cuevas RN August 13, 2024 10:04 AM documented in this encounterL[facility]11-05-2024 Telephone encounter Note * Telephone Encounter - Heather Cuevas RN - 08/14/2024 2:47 PM EST Called patient, no answer, left a detailed message with the plan moving forward. Per Dr. Styles, we will cancel velcade for now. PSS- please contact/schedule patient for an established complex OV with Dr. Styles after her scans. Thank you. Heather Cuevas RN [facility]11-05-2024 Telephone encounter Note* Telephone Encounter - Heather Cuevas RN - 08/14/2024 11:14 AM EST Called patient to discuss medication changes. Patient requested that this nurse call her back in 5 minutes. Patient stated she woke up without a headache today. Patient still has nausea issues today. Discussed medication changes with stopping zofran, starting compazine, can increase risperidone to 2 tablets, decrease omeprazole. Patient unable to state if nausea gets better the closer she gets to the next velcade injection. Patient was instructed to create a symptom journal. Patients next OV is in Oct.Patient aware Dr. Styles stated he might change her treatment d/t side effects. This nurse will discuss this more with Dr. Styles. Reached out to PSS who will contact patient to schedule scans. Heather Cuevas RN [facility]11-04-2024 Telephone encounter Note* Telephone Encounter - Heather Cuevas RN - 08/13/2024 4:44 PM EST Called patient, no answer, left a detailed message. Stop zofran. Switch to compazine. Increase risperidone to 2 tablets at bedtime. Do not take compazine within 6 hours of Risperidone. PSS- please contact patient to schedule scans. This nurse asked patient to call tomorrow to discuss medication changes. Heather Cuevas RN [facility]11-04-2024 Telephone encounter Note* Telephone Encounter - Heather Cuevas RN - 08/13/2024 4:24 PM EST Patient informed of Dr. Styles's response, stated understanding. Patient stated the nausea was so bad today that she took two Zofran (8 mg tablets) within 2 hours of each other. Patient instructed to only take Zofran every 8 hours. Patient stated the risperidone really helps with the nausea at bedtime but she feels she is going backwards. Patient stated she had nausea prior to starting methadone and BuSpar. Patient stated the nausea hasescalated since the second Velcade shot. Heather Cuevas RN [facility]11-04-2024 Telephone encounter Note* Telephone Encounter - Jadon Styles DO - 08/13/2024 2:02 PM EST Nocturnal headaches are unusual so to thoroughly evaluate that and the remainder of her pain pleasepend orders for MRI of brain, whole spine and ortho pelvis. In regard to the nausea, Dr. Heath had ordered a gastric emptying study last spring that was normal. I wonder if perhaps one of her other medications such as BuSpar or methadone may be driving the nausea. Can we see if there is any correlation to when she started those medications and the nausea? Jadon Styles DO [facility]11-04-2024 Telephone encounter Note* Telephone Encounter - Heather Cuevas RN - 08/13/2024 10:04 AM EST Care Coordination Triage Note [facility] Situation: Patient reports Nausea/Vomiting, Other headaches, and Pain/Back or Spine Pain/Headache Background: Multiple Myeloma, started velcade 07/12/24. Last dose 08/09/24 Assessment: GENERALIZED PAIN Where is the pain? Back- used to be bra line down, but I feel like its all up and down my spine, neck, left hip. When did you first notice the pain? 2-3 months or over 3 months, progressively getting worse and worse. I feel like I haven't felt good all summer. How intense is the pain right now (scale of 1-10)? It varies, always 5-6 or above How do you describe the pain: sharp, stabbing, aching, collapsing, no burning Does the pain radiate anywhere? No Has the pain changed since it started? Progressively getting worse Is the pain constant or intermittent? Constant What makes it better? Methadone takes the edge off, be still What makes it worse? Moving or trying to do any type of activity, cleaning, folding laundry, etc. What are you taking anything for the pain? Methadone- takes the edge off but still having a lot of pain. Are you doing anything else to help with the pain other than medications? No BACK/SPINE PAIN Does it radiate to the legs or arms? no Do you have any weakness in your upper or lower extremities? no Any new numbness or tingling in the hands or feet? no Any difficulty urinating or having a bowel movement? Alternates between diarrhea and constipation. Any incontinence of bowel or bladder? No HEADACHE PAIN When did you first notice the headache? Right away after first velcade. The very first migraine was 2.5 days after the first dose of velcade. Now she is having headaches in the early childhood assistant hours around 3-4 am. How intense is the pain (scale of 1-10)? 10/10 on the first day of velcade, yesterday the headache pain is 9/10. How would you describe the headache (sharp, dull, pulsating, migraine-like )? Very achy. The painfeels like a migraine if she does not take ibuprofen within the first 15-20 minutes after onset. Is the headache constant or intermittent? Intermittent Do you wake up with headaches? yes Do you have a history of headaches or migraines? No Have you had any recent falls or trauma where you may have hit your head? no Are you taking any medications for headaches including OTC or supplements? 2 tablets of ibuprofen, will lay down, and when she gets up the headache is completely resolved except for yesterday the headache pain came back during the day. Are you doing anything else besides medications to help alleviate headaches such as heat, cold, etc? no Is there anything that makes the headache worse? Noise, if the TV is on, I almost cannot look at the TV. It almost makes me motion sickness Denies photophobia or other visual changes. NAUSEA When did the nausea start? This whole entire summer. It just increasingly gets worse. Yesterday after eating dinner, she had a lot of nausea. She had to take ondansetron 8 mg which she takes duringthe day. Takes Risperidone at bedtime. Updated med list. Is it constant or intermittent? Intermittent Are you taking any anti-nausea medications? Zofran and risperidone. Did you get any relief from this medication? Zofran helps sometimes but yesterday she did not have much relief. Is there anything that makes the nausea worse? Patient stated if she is nauseous she is unable to look at the TV because it makes her feel nauseous. Patient does not wake up nauseous. When was your last bowel movement? 2 days ago. Was it normal for you? Constipation again. Patientstated her belly is bothering her so she feels she needs to have a BM. Patient bought psyllium huskand started using but felt it caused her to have diarrhea. Patient will try 1/2 dose and then increase to full dose after 1 week. What have you been able to eat and drink in the past 24 hours? Patient stated she is full after eating a few bites. Denies a bloated feeling, feels like she just had Thanksgiving dinner because yourtummy is so full. VOMITING Are you also having any vomiting? no Had EGD 2022.. Results copied below. FINAL DIAGNOSIS A. Duodenum, biopsy: - Small bowel mucosa with no significant diagnostic alteration. - No evidence of celiac disease or enteritis. B. Gastric antrum, biopsy: - Oxyntic mucosa with no significant diagnostic alteration. - No morphologic evidence of Helicobacter pylori organisms. C. Distal esophagus, biopsy: - Mildly inflamed cardiofundic-type mucosa, negative for intestinal metaplasia. - Reactive squamous mucosa with no significant inflammation, including no eosinophilia. - Separate scant fragment of unremarkable small bowel epithelium, favor carryover from part A. D. Mid esophagus, biopsy: - Squamous mucosa with no significant diagnostic alteration. - No evidence of esophagitis or eosinophilia. Recommendations: Per [facility], will discuss with Dr. Styles. Heather Cuevas RN August 13, 2024 10:04 AM [facility]10-31-2024 Telephone encounter Note* Telephone Encounter - Jo-Ann Perez - 08/09/2024 2:55 PM EDT Scheduled in October as Dr. Styles had no availability in September. Jo-Ann Perez [facility]10-31-2024 Miscellaneous Notes* Telephone Encounter - Jo-Ann Perez - 08/09/2024 2:55 PM EDT Scheduled in October as Dr. Styles had no availability in September. Jo-Ann Perez * Telephone Encounter - Paris Ahuja RN - 08/09/2024 2:[address] Styles please schedule patient OV every 3 months with CBC, CMP, and Multiple Myeloma labs prior PSS'S- Please schedule this with her next OV in mid-September. [facility] Telephone encounter Note * Telephone Encounter - Jo-Ann Perez - 08/09/2024 2:54 PM EDT Spoke with patient, advising below, and scheduled accordingly. Jo-Ann Perez [facility]10-[facility]-2024 Miscellaneous Notes* Telephone Encounter - Jo-Ann Perez - 08/09/2024 2:54 PM EDT Spoke with patient, advising below, and scheduled accordingly. Jo-Ann Perez * Telephone Encounter - Jadon Styles DO - 08/09/2024 2:12 PM EDT Thank you. I added Zometa to the beacon orders that. Can start when she is here for the next Velcade injection in August. Please advise her to start OTC vitamin D3 2000 units daily. BMP when here for Zometa. Zometa will be every 3 months. Jadno Styles DO * Telephone Encounter - Paris Ahuja RN - 08/09/2024 8:35 AM EDT I will see patient today when she comes in for her Velcade and will let her know. According to past medications, it looks like she last had zometa 05/30/2023. * Telephone Encounter - Jadon Styles DO - 08/08/2024 5:49 PM EDT Can let her know that I presented her case today at myeloma tumor board. Consensus was to continue every over the week Velcade. No need to escalate therapy. Also, can someone determine when she last had Zometa? Jadon Styles DO [facility] History of Present illness Narrative* Paris Ahuja RN - 08/09/2024 2:33 PM EDT Confirmed with patient that it has been at least a year since she last received Zometa. Per patient, she was told by that he was stopping it d/t having reverse effects after being on it for a long period. documented [facility]10-[facility] Telephone encounter Note * Telephone Encounter - Paris Ahuja RN - 08/09/2024 2:[address] Styles please schedule patient OV every 3 months with CBC, CMP, and Multiple Myeloma labs prior PSS'S- Please schedule this with her next OV in mid-September. [facility] Telephone encounter Note* Telephone Encounter - Jadon Styles DO - 08/09/2024 2:12 PM EDT Thank you. I added Zometa to the beacon orders that. Can start when she is here for the next Velcade injection in August. Please advise her to start OTC vitamin D3 2000 units daily. BMP when here for Zometa. Zometa will be every 3 months. Jadon Styles DO [facility] Telephone encounter Note* Telephone Encounter - Paris Ahuja RN - 08/09/2024 8:35 AM EDT I will see patient today when she comes in for her Velcade and will let her know. According to past medications, it looks like she last had zometa 05/30/2023. [facility] Telephone encounter Note* Telephone Encounter - Jadon Styles DO - 08/08/2024 5:49 PM EDT Can let her know that I presented her case today at myeloma tumor board. Consensus was to continue every over the week Velcade. No need to escalate therapy. Also, can someone determine when she last had Zometa? 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 Type of Review: Initial Review Relapsed or Refractory Disease: NA Outcome: Alvino Nina case was reviewed by the multidisciplinary providers in attendance. Based on the current evidence of practice, the collaborative recommendation would be to continue maintenance tx that the patient tolerates. These recommendations will be communicated by the presenting physicians. Conclusions: Continue Velcade maintenance and close monitoring. Randolph as many unused treatments for future use as possible Case reviewed by Plasma Cell Disorder's Tumor Board. documented [facility]10[facility] Telephone encounter Note * Telephone Encounter - Sangeeta Garsia LPN - 07/27/2024 10:45 AM EDT Spoke with pt. Concerning tumor board and the fact Dr. Styles was unable to present. Will do next week. Pt. Voiced understanding. Sangeeta Garsia LPN [facility] Miscellaneous Notes* Telephone Encounter - Sangeeta Garsia LPN - 07/27/2024 10:45 AM EDT Spoke with pt. Concerning tumor board and the fact Dr. Styles was unable to present. Will do next week. Pt. Voiced understanding. Sangeeta Garsia LPN * Telephone Encounter - Nichole Valladares - 07/27/2024 10:37 AM EDT Scheduled with patient * Telephone Encounter - Kimberly Zeng - 07/27/2024 9:30 AM EDT Lvm for patient to return the call. Kimberly Zeng * Telephone Encounter - Katie Vega LPN - 07/26/2024 3:36 PM EDT Unfortunately, Dr. Styles was not able to present the patient at Myeloma Tumor Board yesterday, 07/25/2024. He will try to present her next week. PSS- please contact the patient to schedule additional cycles of Q 2 week Velcade. She will stay onthis treatment until otherwise notified. Katie Vega LPN documented in [facility] encounterL[facility]10-18-[facility]24 Telephone encounter Note * Telephone Encounter - Nichole Valladares - 07/27/2024 10:37 AM EDT Scheduled with patient [facility] Work Phone: 1(758) 628-267610-18-2024 Telephone encounter Note* Telephone Encounter - Kimberly Zeng - 07/27/2024 9:30 AM EDT Lvm for patient to return the call. Kimberly Zeng [facility]10-17-2024 Telephone encounter Note* Telephone Encounter - Katie Vega LPN - 07/26/2024 3:36 PM EDT Unfortunately, Dr. Styles was not able to present the patient at Myeloma Tumor Board yesterday, 07/25/2024. He will try to present her next week. PSS- please contact the patient to schedule additional cycles of Q 2 week Velcade. She will stay onthis treatment until otherwise notified. Katie Vega LPN [facility]24 Telephone encounter Note* Telephone Encounter - Heather Cuevas RN - 07/16/2024 12:18 PM EDT CYCLE 1/DAY 1 POST TREATMENT CALL Today's date: July 16, 2024 Treatment Regimen: Velcade C1D1 Date: 07/12/24 Called patient to follow-up on symptom management. Spoke with patient SYMPTOM ASSESSMENT Neuro: Headache yes, 07/19 it felt like my temples and my whole head was hurting. Took ibuprofen which helped with the pain. Patient instructed to report headache if pain recurs. Visual Changes no Dizziness no CV/Resp: Episodes of palpitations/chest discomfort/pressure/pain no, Shortness of breath no, and Cough: no GI/: Appetite: no changes in appetite, appetite fair Nausea yes, I'm still nauseous but I was nauseous before. Patient takes Zofran for nausea. Patient took olanzapine early one evening and it knocked me out the entire next day. Diarrhea: no Constipation: yes, last BM this morning. I haven't had a normal BM in a long time. Integument: Injection site is still red. Denies the area being warm to touch, denies pus/drainage. Activity: Patient reported decreased energy level, it was so much worse the first 3 days afterwards. Patient stated she feels her tired is back to the way it was before, back to baseline. Pain: normal back pain. Fever: No Chills: No Patient felt very tired and nauseous after treatment. Patient had terrible headaches for a coupleof days after treatment. Patient took 2 ibuprofen which helped alleviate the pain. Any new referrals needed? No Reinforced CURRENT treatment education based on current and anticipated symptoms. Discussed port/line care and patient verbalizes understanding: Not Applicable Patient instructed to contact office or after hours Hematology/Oncology fellow for: temperature >= 100.4; questions or concerns. Patient verbalized understanding of when to seek medical attention and after hours number protocol. Heather Cuevas RN [facility] Miscellaneous Notes* Telephone Encounter - Heather Cuevas RN - 07/16/2024 12:18 PM EDT CYCLE 1/DAY 1 POST TREATMENT CALL Today's date: July 16, 2024 Treatment Regimen: Velcade C1D1 Date: 07/12/24 Called patient to follow-up on symptom management. Spoke with patient SYMPTOM ASSESSMENT Neuro: Headache yes, 07/19 it felt like my temples and my whole head was hurting. Took ibuprofen which helped with the pain. Patient instructed to report headache if pain recurs. Visual Changes no Dizziness no CV/Resp: Episodes of palpitations/chest discomfort/pressure/pain no, Shortness of breath no, and Cough: no GI/: Appetite: no changes in appetite, appetite fair Nausea yes, I'm still nauseous but I was nauseous before. Patient takes Zofran for nausea. Patient took olanzapine early one evening and it knocked me out the entire next day. Diarrhea: no Constipation: yes, last BM this morning. I haven't had a normal BM in a long time. Integument: Injection site is still red. Denies the area being warm to touch, denies pus/drainage. Activity: Patient reported decreased energy level, it was so much worse the first 3 days afterwards. Patient stated she feels her tired is back to the way it was before, back to baseline. Pain: normal back pain. Fever: No Chills: No Patient felt very tired and nauseous after treatment. Patient had terrible headaches for a coupleof days after treatment. Patient took 2 ibuprofen which helped alleviate the pain. Any new referrals needed? No Reinforced CURRENT treatment education based on current and anticipated symptoms. Discussed port/line care and patient verbalizes understanding: Not Applicable Patient instructed to contact office or after hours Hematology/Oncology fellow for: temperature >= 100.4; questions or concerns. Patient verbalized understanding of when to seek medical attention and after hours number protocol. Heather Cuevas RN documented in [facility] encounterL[facility]10-04-2024 Telephone encounter Note * Telephone Encounter - Sangeeta Garsia LPN - 07/13/2024 1:59 PM EDT Spoke with pt. Informed rx was sent to pharmacy , she needs to start medication and take twice daily. Pt. States she no longer uses [facility] in [place]. Pharmacy called and instructed to cancel rx. Rx called to [facility], spoke with pharmacist Ursula. Sangeeta Garsia LPN [facility] Miscellaneous Notes* Telephone Encounter - Sangeeta Garsia LPN - 07/13/2024 1:59 PM EDT Spoke with pt. Informed rx was sent to pharmacy , she needs to start medication and take twice daily. Pt. States she no longer uses [facility] in [place]. Pharmacy called and instructed to cancel rx. Rx called to [facility], spoke with pharmacist Ursula. Sangeeta Garsia LPN * Telephone Encounter - Jadon Styles DO - 07/13/2024 1:38 PM EDT Please advise her to start taking acyclovir twice daily for shingles prophylaxis while she is on Velcade. Jadon Styles DO documented in this encounterL[facility]10-04-2024 Telephone encounter Note * Telephone Encounter - Jadon Styles DO - 07/13/2024 1:38 PM EDT Please advise her to start taking acyclovir twice daily for shingles prophylaxis while she is on Velcade. Jadon Styles DO [facility] Telephone encounter Note* Telephone Encounter - Jo-Ann Perez - 07/10/2024 9:18 AM EDT Patient returned call and was made aware of the message below and stated understanding. Jo-Ann Perez [facility]24 Miscellaneous Notes* Telephone Encounter - Jo-Ann Perez - 07/10/2024 9:18 AM EDT Patient returned call and was made aware of the message below and stated understanding. Jo-Ann Perez * Telephone Encounter - Jo-Ann Gilbert RN - 07/10/2024 9:13 AM EDT Left message with patient requesting she come in at 12:30 on . Consent has to be signed prior to treatment. Per Cara. documented in [facility] encounterL[facility]10-[facility]-2024 Telephone encounter Note * Telephone Encounter - Jo-Ann Gilbert RN - 07/10/2024 9:13 AM EDT Left message with patient requesting she come in at 12:30 on . Consent has to be signed prior to treatment. Per Cara. [facility] Telephone encounter Note* Telephone Encounter - Jo-Ann Perez - 07/05/2024 3:24 PM EDT Spoke with patient, advising below. Scheduled only 2 cycles due to tumor board presentation. Chemo start email sent'. Jo-Ann Perez [facility] Miscellaneous Notes* Telephone Encounter - Jo-Ann Perez - 07/05/2024 3:24 PM EDT Spoke with patient, advising below. Scheduled only 2 cycles due to tumor board presentation. Chemo start email sent'. Jo-Ann Perez * Telephone Encounter - Jadon Styles DO - 07/05/2024 2:55 PM EDT I think we should try it first without hydration. Getting a dose every other week should minimize risk of neuropathy as it is. * Telephone Encounter - Jo-Ann Perez - 07/05/2024 9:10 AM EDT Patient called in to see about getting this scheduled and is asking if she could get hydration withher Velcade as she has heard that hydration before and after the injection helps minimize tingling in hands/feet (neuropathy). Please advise. Jo-Ann Perez * Telephone Encounter - Katie Vega LPN - 07/04/2024 12:52 PM EDT Patient is aware of all information. PSS- please contact patient to schedule as directed below. Katie Vega LPN * Telephone Encounter - Jadon Styles DO - 07/04/2024 12:36 PM EDT There is a very small amount of the kappa light chain protein in her urine. I am going to present her case at myeloma conference 2 weeks from now. In the meantime, let's schedule her to start every other week Velcade. I put the order in [place]. Will try to send [facility] consent. CBC each Velcade treatment. CMP monthly. Other lab work to be determinedafter I present her case. Jadon Styles DO * Telephone Encounter - Nichole Valladares - 07/04/2024 10:20 AM EDT Patient calling on status. * Telephone Encounter - Heather Cuevas RN - 06/29/2024 3:[address] Styles is aware of the phone encounter and has not been able to review lab results yet. Dr. Styles will advise on the plan moving forward after reviewing lab results. Heather Cuevas RN * Telephone Encounter - Heather Cuevas RN - 06/29/2024 10:[address] Styles's OV notes: -Discussed with her that plan would be to collect 24-hour urine to quantitate kappa light chain. If increased over last measurement then we could consider putting her back on maintenance with every other week Velcade or treat with daratumumab with a trial of pomalidomide since she does not tolerate Revlimid. -Myeloma TB presentation once above completed. Labs were completed and results are available to review. Thank you. Heather Cuevas RN * Telephone Encounter - Nichole Valladares - 06/29/2024 10:23 AM EDT Patient called asking what appointments/follow ups need scheduled from last visit. documented in [facility] encounterL[facility]09-[facility]24 Telephone encounter Note * Telephone Encounter - Jadon Styles DO - 07/05/2024 2:55 PM EDT I think we should try it first without hydration. Getting a dose every other week should minimize risk of neuropathy as it is. [facility] Telephone encounter Note* Telephone Encounter - Jo-Ann Perez - 07/05/2024 9:10 AM EDT Patient called in to see about getting this scheduled and is asking if she could get hydration withher Velcade as she has heard that hydration before and after the injection helps minimize tingling in hands/feet (neuropathy). Please advise. Jo-Ann Perez [facility]-25[facility]24 Telephone encounter Note* Telephone Encounter - Katie Vega LPN - 07/04/2024 12:52 PM EDT Patient is aware of all information. PSS- please contact patient to schedule as directed below. Katie Vega LPN [facility] Telephone encounter Note* Telephone Encounter - Jadon Styles DO - 07/04/2024 12:36 PM EDT There is a very small amount of the kappa light chain protein in her urine. I am going to present her case at myeloma conference 2 weeks from now. In the meantime, let's schedule her to start every other week Velcade. I put the order in [place]. Will try to send [facility] consent. CBC each Velcade treatment. CMP monthly. Other lab work to be determinedafter I present her case. Jadon Styles DO [facility] Telephone encounter Note* Telephone Encounter - Nichole Valladares - 07/04/2024 10:20 AM EDT Patient calling on status. [facility] Work Phone: 1(473) 808-284209-20-2024 Telephone encounter Note* Telephone Encounter - Heather Cuevas RN - 06/29/2024 3:[address] Styles is aware of the phone encounter and has not been able to review lab results yet. Dr. Styles will advise on the plan moving forward after reviewing lab results. Heather Cuevas RN [facility] Telephone encounter Note* Telephone Encounter - Heather Cuevas RN - 06/29/2024 10:[address] Styles's OV notes: -Discussed with her that plan would be to collect 24-hour urine to quantitate kappa light chain. If increased over last measurement then we could consider putting her back on maintenance with every other week Velcade or treat with daratumumab with a trial of pomalidomide since she does not tolerate Revlimid. -Myeloma TB presentation once above completed. Labs were completed and results are available to review. Thank you. Heather Cuevas RN [facility] Telephone encounter Note* Telephone Encounter - Nichole Valladares - 06/29/2024 10:23 AM EDT Patient called asking what appointments/follow ups need scheduled from last visit. [facility] History of Present illness Narrative* Jadon Styles DO - 06/21/2024 10:26 AM EDT Oncologic problem(s): 1) Multiple myeloma. Elements copied from Dr. Heath's note dated 12/07/2023 have been reviewed and updated where appropriate, and all reflect current assessment and medical decision making during today's encounter. HISTORY OF PRESENT ILLNESS: Alvino Nina is a 57 year old female had back pain and MRI scan lumbar spine without contrast showed an acute mild compression fracture at superior end plate of L5.Spinal stenosis at L4 to L5. 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 She continued to have significant pain in her lower back which limited her movement and daily activity. She was on morphine, oxycodone and [place] which caused significant nausea A follow-up MRI scan of the thoracic spine on 06/09/2020 also showed acute moderate wedge compression fracture at T11 without obvious protrusion into the spinal canal. There were no obvious lytic lesions or marrow infiltrations in her thoracic or lumbar spine. Liver MRI in January 2023 noted pancreatic cyst, suggested yearly follow up x 5 years. Previous treatment: 1) RvD - lenalidomide, bortezomib, dexamethasone (CR) 2) ASCT 01/15/2021. Maintenance therapy: 1) Lenalidomide 2) Zometa Presents for ongoing oncologic management. Interim history: Revlimid held last week secondary to nausea/vomiting. Was on a 3 week on and one week off schedule. Nausea during off week. Trial of holding methadone. Taking SloFe for a while. Nausea persists but not as bad now. Always has diarrhea, but today had more formed BM. Intermittent numbness in fingertips and rarely toes. Has h/o CTS. Fatigued. PAST MEDICAL HISTORY: PAST MEDICAL HISTORY No date: Benign renal tumor Comment: unsure of malignancy No date: Cancer of right kidney (HCC) 05/2020: Compression fracture of L5 vertebra ([facility]) 06/09/2020: Compression fracture of T11 vertebra ([facility]) Comment: acute moderate compression fx withou obvious protrusion into the spinal canal, seen on MRI No date: Endometriosis No date: Environmental allergies 03/04/2021: Immunodeficiency ([facility]) No date: Irregular heart beat 06/25/2020: Lytic lesion of bone on x-ray Comment: skull, bilateral humeri, bilateral femurs and possibly the left tibial plateau 06/25/2020: Multiple myeloma not having achieved remission ([facility]) 06/25/2020: Multiple myeloma not having achieved remission ([facility]) 06/25/2020: Osteopenia 01/13/2021: S/P autologous bone marrow transplantation ([facility]) Comment: Day: +13 Protocol(s): Auto 3422 1C Melphalan 200 Preparative regimen: melphalan Mobilization regimen: Neupogen Stem cell source: Stem cells CD34 cell dose (x10e6/kg): 5.14 Date of transplant: 01/15/2021 PAST SURGICAL HISTORY: PAST SURGICAL HISTORY No date: BACK SURGERY HX 03/03/2023: EGD 09/12/2012: FNA WITH IMAGING Comment: U/S FNA left thyroid nodule 2012: KIDNEY BIOPSY; Right 06/05/2020: KYPHOPLASTY - LUMBAR Comment: L5 1984: LAPS ABD PRTM&OMENTUM DX W/WO SPEC BR/WA SPX Comment: Laparoscopy 2012: LIG/TRNSXJ FLP TUBE ABDL/VAG APPR UNI/BI Comment: Tubal ligation, with ablation No date: TONSILLECTOMY HX 2012: TUMOR REMOVAL (SPECIFY LOCATION) HX; Right Comment: kidney CURRENT MEDICATIONS: busPIRone (BUSPAR) 7.5 mg tablet Take 7.5 mg by mouth two times a day. ferrous sulfate (SLOW FE) 137 mg (45 mg iron) TbER Take 1 tablet by mouth once daily. COLLAGEN MISC 1 Tablespoonful once daily. ondansetron (ZOFRAN) 8 mg tablet Take 1 tablet by mouth every 8 hours as needed for nausea/vomiting. omeprazole (PRILOSEC) 40 mg capsule take 1 capsule by mouth every day OLANZapine (ZYPREXA) 5 mg tablet Take 5 mg by mouth at bedtime as needed. venlafaxine ER (EFFEXOR XR) 37.5 mg 24 hr capsule Take three capsules by mouth once daily. REVLIMID 5 mg capsule TAKE 1 CAPSULE BY MOUTH 1 TIME A DAY FOR 21 DAYS ON AND 7 DAYS OFF (Patient not taking: Reported on 06/21/2024) ZINC ORAL Take 50 mg by mouth once daily. VITAMIN B COMPLEX ORAL Take 1 tablet by mouth once daily. Magnesium 200 mg tab Take 200 mg by mouth once daily. sucralfate (CARAFATE) 1 gram tablet Take 1 tablet by mouth four times daily. (mixed with a little bit of water to make a slurry). glucosamine HCl/chondroitin brice (GLUCOSAMINE-CHONDROITIN ORAL) Take 1 capsule by mouth once daily. acyclovir (ZOVIRAX) 400 mg tablet Take 1 tablet by mouth every other day. aspirin, enteric coated (ASPIRIN, ENTERIC COATED) 81 mg EC tablet Take 81 mg by mouth once daily. Only while on Revlimid ascorbic acid (VITAMIN C ORAL) Take 1 tablet by mouth once daily. cholecalciferol, vitamin D3, (VITAMIN D3 ORAL) Take 1 tablet by mouth once daily. Lactobacillus acidophilus (PROBIOTIC ORAL) Take 1 tablet by mouth as needed. LORazepam (ATIVAN) 0.5 mg Take 0.25 mg by mouth three times daily as needed. ALLERGIES/INTOLERANCES: ALLERGIES Allergen Reactions Adhesive Tape (Mariam* Rash Penicillins Hives Other reaction(s): Unknown Vicodin [Hydrocodon* Intolerance Latex Rash Other reaction(s): rash FAMILY HISTORY: FAMILY HISTORY Problem Relation Age of Onset Allergies Brother Hypertension Brother Allergies Sister Breast Cancer Sister Anesthesia Mother Thyroid Mother other (valve replacement) Mother Hypertension Sister Thyroid Sister No Known Problems Paternal Grandmother Ischemic Heart Disease Father Hypertension Father Lung Cancer Father other (CLL) Father Chronic lymphocytic leukemia Heart Maternal Grandmother Colon Cancer Maternal Grandfather Heart Attack Paternal Grandfather 50 Anxiety disorder Brother Hypertension Brother No Known Problems Daughter No Known Problems Son SOCIAL HISTORY: Social History Tobacco Use Smoking status: Former Current packs/day: 0.00 Types: Cigarettes Start date: 06/23/1992 Quit date: 06/23/1997 Years since quittin.0 Smokeless tobacco: Never Tobacco comments: quit smoking cigarettes in 1984 but only had smoked for few years approximately 1 pack/week Vaping Use Vaping status: Never Used Substance Use Topics Alcohol use: Not Currently Comment: socially Drug use: No REVIEW OF SYSTEMS: The remaining 10 point review of systems is negative. PHYSICAL EXAM: Vitals: Blood pressure 134/88, pulse 84, temperature 36.5 C (97.7 F), temperature source Temporal, weight 94.6 kg (208 lb 8 oz), SpO2 98%. Well-appearing and in no acute distress. EYES: Sclerae are anicteric bilaterally. LYMPHATIC: There is no palpable cervical, supraclavicular, adenopathy. RESPIRATORY: Inspiratory breath sounds are of normal intensity in all mccord. No rales, wheezes or rhonchi. CARDIOVASCULAR: Rhythm is regular. ABDOMEN: The abdomen is nondistended. Extremities: No swelling or edema. SKIN: No jaundice. LABS: IMAGING: MRI pancreas 01/17/2024: IMPRESSION: Stable pancreatic cystic focus. Likely sidebranch IPMN. No focal pancreatic enlargement, pathologic enhancement or suspicious lesion Stable hepatic cysts, and stable left hepatic lobe hemangioma. Renal cysts. No suspicious renal lesion. 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 -IgA by RUFINA only. -Baseline kappa 1,073.3 mg/L (06/23/2020) -Serum light chains and ratio are normal. No serum monoclonal protein by electrophoresis or immunofixation but spot urine showing kappa light chain. -Discussed with her that plan would be to collect 24-hour urine to quantitate kappa light chain. Ifincreased over last measurement then we could consider putting her back on maintenance with everyother week Velcade or treat with daratumumab with a trial of pomalidomide since she does not tolerate Revlimid. Plan: -All questions answered her satisfaction. -24-hour urine collection for electrophoresis and immunofixation. -Myeloma TB presentation once above completed. Portions of this documentation were copied and pasted from previous office visit notes in order to provide a cohesive continuity of the history. The note has been reviewed and edited and updated as necessary. I spent a total of 45 minutes on the date of the service which included preparing to see the patient, [id number] patient care, completing clinical documentation, obtaining and/or reviewing separately obtained history, performing a medically appropriate examination, counseling and educating the pat ient/family/caregiver, ordering medications, tests, or procedures, communicating with other HCPs (not separately reported), and communicating results to the patient/family/caregiver. Jadon Styles DO documented [facility]09-[facility] Telephone encounter Note * Telephone Encounter - Sangeeta Garsia LPN - 06/20/2024 8:12 AM EDT [facility] Auth#[id number] Prescription Refill Information The patient has been identified by name and date of : Yes Caregiver verified no other encounters exist for this prescription request: Yes Caregiver confirmed with patient/requestor that no other refills are due, in the near future, with this provider at this time: Yes The last office visit in the department: 03/22/2024 Does the patient have a future office visit with this provider/department: Yes Requested Prescriptions Pending Prescriptions Disp Refills REVLIMID 5 mg capsule [Pharmacy Med Name: REVLIMID 5MG] 21 capsule 0 Sig: TAKE 1 CAPSULE BY MOUTH 1 TIME A DAY FOR 21 DAYS ON AND 7 DAYS OFF Sangeeta Garsia LPN June 20, 2024 8:16 AM [facility]09-11-[facility]24 Miscellaneous Notes* Telephone Encounter - Sangeeta Garsia LPN - 06/20/2024 8:12 AM EDT [facility] Auth#[id number] Prescription Refill Information The patient has been identified by name and date of : Yes Caregiver verified no other encounters exist for this prescription request: Yes Caregiver confirmed with patient/requestor that no other refills are due, in the near future, with this provider at this time: Yes The last office visit in the department: 03/22/2024 Does the patient have a future office visit with this provider/department: Yes Requested Prescriptions Pending Prescriptions Disp Refills REVLIMID 5 mg capsule [Pharmacy Med Name: REVLIMID 5MG] 21 capsule 0 Sig: TAKE 1 CAPSULE BY MOUTH 1 TIME A DAY FOR 21 DAYS ON AND 7 DAYS OFF Sangeeta Garsia LPN June 20, 2024 8:16 AM documented in this encounterLuther[facility]09-[facility]24 Telephone encounter Note * Telephone Encounter - Katie Vega LPN - 06/12/2024 1:11 PM EDT Patient is aware to stop Revlimid. She will contact the office later this week or early next week with an update. Katie Vega LPN [facility]09-03-2024 Miscellaneous Notes* Telephone Encounter - Katie Vega LPN - 06/12/2024 1:11 PM EDT Patient is aware to stop Revlimid. She will contact the office later this week or early next week with an update. Katie Vega LPN * Telephone Encounter - Jadon Styles DO - 06/12/2024 1:00 PM EDT Stop Revlimid. She is on it for maintenance therapy and it appears that she is in a complete remission. We could always consider changing to every other week Velcade for maintenance going forward if n/v ceases after stopping Revlimid. Jadon Styles DO * Telephone Encounter - Heather Cuevas, RN - 06/12/2024 10:15 AM EDT Care Coordination Triage Note [facility] Situation: Patient reports Nausea/Vomiting Background: MM, on Revlimid right in the middle of her cycle. Originally a Dr. Stewart patient. Had an OV with Dr. Styles on 03/08/23. Currently established with Dr. Heath but has been asking to switch over to Dr. Styles to establish care for quite some time. Scheduled to see Dr. Styles again on 06/21/24. Assessment: NAUSEA When did the nausea start? Weeks established with [facility]. Patient was on pain medicine that made me sick and stated she is off of the pain medications now but I'm still sick from the chemo. Patient stated she has had revlimid stopped 3 times d/t n/v and she resumes after feeling better. Is it constant or intermittent? Starts out mild in the morning and then increases and increases throughout the day and then its just all the time. Are you taking any anti-nausea medications? Ondansetron and omeprazole. Not currently taking olanzapine or Carafate. Patient does not like taking olanzapine because it makes her too drowsy. If yes, what and when did you last take it? Zofran- I'm taking it every 4 hours. Last dose was yesterday. Patient stated she contacted a pharmacist who stated she could take the Zofran more frequently than 8 hours. Did you get any relief from this medication? It only lasts for 3 hours Are you doing anything else that is helping to relieve the nausea? Zeinab candies Is there anything that makes the nausea worse? When I think about it too much. Eating/drinking doesn't make it worse I just don't have an appetite. Time of day the nausea is worse: 5 pm on When was your last bowel movement? An hour ago. Was it normal for you? It's always diarrhea. Patient takes imodium which makes her stool more solid for the next BM and then her stool goes back to being loose. Discussed metamucil or adding fiber to her diet and instructions for use. What have you been able to eat and drink in the past 24 hours? I drink enough, patient stated carlyn't have an appetite but is able to eat. VOMITING Are you also having any vomiting? A couple days ago, multiple times at one time Denies heartburn, fever, or chills. Recommendations: Will discuss with provider and will call her back with further instructions. Patient does not feel that Zofran is effective for the nausea. Heather Cuevas RN June 12, 2024 10:15 AM * Telephone Encounter - Nichole Valladares - 06/12/2024 9:42 AM EDT Patient called stating she has been nauseated and vomiting from taking chemo pills. She stated she didn't take it yesterday. Please advise patient. documented in this encounterL[facility]09-03-[facility]24 Telephone encounter Note * Telephone Encounter - Jadon Styles DO - 06/12/2024 1:00 PM EDT Stop Revlimid. She is on it for maintenance therapy and it appears that she is in a complete remission. We could always consider changing to every other week Velcade for maintenance going forward if n/v ceases after stopping Revlimid. Jadon Styles DO [facility] Telephone encounter Note* Telephone Encounter - Heather Cuevas RN - 06/12/2024 10:15 AM EDT Care Coordination Triage Note [facility] Situation: Patient reports Nausea/Vomiting Background: MM, on Revlimid right in the middle of her cycle. Originally a Dr. Stewart patient. Had an OV with Dr. Styles on 03/08/23. Currently established with Dr. Heath but has been asking to switch over to Dr. Styles to establish care for quite some time. Scheduled to see Dr. Styles again on 06/21/24. Assessment: NAUSEA When did the nausea start? Weeks established with [facility]. Patient was on pain medicine that made me sick and stated she is off of the pain medications now but I'm still sick from the chemo. Patient stated she has had revlimid stopped 3 times d/t n/v and she resumes after feeling better. Is it constant or intermittent? Starts out mild in the morning and then increases and increases throughout the day and then its just all the time. Are you taking any anti-nausea medications? Ondansetron and omeprazole. Not currently taking olanzapine or Carafate. Patient does not like taking olanzapine because it makes her too drowsy. If yes, what and when did you last take it? Zofran- I'm taking it every 4 hours. Last dose was yesterday. Patient stated she contacted a pharmacist who stated she could take the Zofran more frequently than 8 hours. Did you get any relief from this medication? It only lasts for 3 hours Are you doing anything else that is helping to relieve the nausea? Zeinab candies Is there anything that makes the nausea worse? When I think about it too much. Eating/drinking doesn't make it worse I just don't have an appetite. Time of day the nausea is worse: 5 pm on When was your last bowel movement? An hour ago. Was it normal for you? It's always diarrhea. Patient takes imodium which makes her stool more solid for the next BM and then her stool goes back to being loose. Discussed metamucil or adding fiber to her diet and instructions for use. What have you been able to eat and drink in the past 24 hours? I drink enough, patient stated shedoesn't have an appetite but is able to eat. VOMITING Are you also having any vomiting? A couple days ago, multiple times at one time Denies heartburn, fever, or chills. Recommendations: Will discuss with provider and will call her back with further instructions. Patient does not feel that Zofran is effective for the nausea. Heather Cuevas RN June 12, 2024 10:15 AM [facility] Telephone encounter Note* Telephone Encounter - Nichole Valladares - 06/12/2024 9:42 AM EDT Patient called stating she has been nauseated and vomiting from taking chemo pills. She stated she didn't take it yesterday. Please advise patient. [facility] Work Phone: 1(191) 324-437708-05-2024 Telephone encounter Note* Telephone Encounter - Katie Vega LPN - 05/14/2024 12:39 PM EDT [employer] auth #[id number]. Please send electronically. Katie Vega LPN [facility]08-05-2024 Miscellaneous Notes* Telephone Encounter - Katie Vega LPN - 05/14/2024 12:39 PM EDT [employer] auth #[id number]. Please send electronically. Katie Vega LPN documented in this encounterLuther[facility] Hospital07-11-2024 Telephone encounter Note * Telephone Encounter - Katie Vega LPN - 04/19/2024 7:20 AM EDT [employer] auth #[id number]. Please send electronically. Katie Vega LPN [facility]-2024 Miscellaneous Notes* Telephone Encounter - Katie Vega LPN - 04/19/2024 7:20 AM EDT [employer] auth #[id number]. Please send electronically. Katie Vega LPN documented in this encounterLutheran Hospital06-20-2024 Telephone encounter Note * Telephone Encounter - Zakiya Han RN - 03/29/2024 2:49 PM EDT Call to patient and aware. Jamia Guille, RN [facility] Work Phone: 1(604) 226-920106-20-2024 Miscellaneous Notes* Telephone Encounter - Zakiya Han RN - 03/29/2024 2:49 PM EDT Call to patient and aware. Jamia Han RN * Telephone Encounter - Saba Roa APRN.CNP - 03/29/2024 2:39 PM EDT Labs improved. I thought that I told her that I would call only if they were high still. Do not need to repeat labs again. Saba Roa APRN.GALINA * Telephone Encounter - Nichole Valladares - 03/29/2024 2:29 PM EDT Patient called asking if labs need rechecked. She states per last office visit with Saba, if certain labs were high, they would check them again when she has off week from chemo. This is her off week. Please advise. documented in this encounterLutheran Hospital06-20-2024 Telephone encounter Note * Telephone Encounter - Saba Roa APRN.CNP - 03/29/2024 2:39 PM EDT Labs improved. I thought that I told her that I would call only if they were high still. Do not need to repeat labs again. Saba Roa APRN.CNP [facility]-20-[facility] Telephone encounter Note* Telephone Encounter - Nichole Valladares - 03/29/2024 2:29 PM EDT Patient called asking if labs need rechecked. She states per last office visit with Saba, if certain labs were high, they would check them again when she has off week from chemo. This is her off week. Please advise. [facility] Work Phone: 1(379) 254-861406-13-2024 History of Present illness Narrative* Saba Roa, TREMAYNE.DEVELOPMENT COACH - 03/22/2024 11:02 AM EDT Chief Complaint Patient presents with: Established Patient HPI: Alvino Nina is a 58 year old female who presents here today for follow up MM. Per Dr. Heath's previous note: H/o back pain and MRI scan lumbar spine without contrast showed an acute mild compression fracture at superior end plate of L5. Spinal stenosis at L4 to L5. 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 She continues to have significant pain in her lower back which limited hermovement and daily activity. She was on morphine, oxycodone and [place] which causes significant nausea. She is currently on Tylenol, Flexeril and buprenorphine and she still has significant lower backpain. A follow-up MRI scan of the thoracic spine on 06/09/20 also showed acute moderate wedge compression fracture at T11 without obvious protrusion into the spinal canal. There were no obvious lyticlesions or marrow infiltrations in her thoracic or lumbar spine. Here for follow up, was of of revlimid briefly due to inability to get med. When it did resume, gotbad nausea, so we held. Noting more right hip pain, radha with weight bearing. Points out right buttock area as area of pain. Notes early satiety, bloating. Labs reviewed. Liver MRI in January 2023 noted pancreatic cyst, suggested yearly follow up x 5 years. Previous treatment: 1) RvD - lenalidomide, bortezomib, dexamethasone (CR) 2) ASCT 01/15/2021. Maintenance therapy: 1) Lenalidomide 2) Zometa CLINICAL IMPRESSION: Myeloma in remission, on maintenance Revlimid RECOMMENDATION/PLAN: 1. Continue revlimid, will ease back into the dose, take every other day x 4 doses, the daily 2. Pancreas MRI to evaluate pancreatic cyst 3. Gastric emptying study 4. Bone survey 5. Back in 3 months with labs, other follow up based on test results. Pt. is in her last week of her revlimid cycle. Pt. here with family members. Appetite:It depends on the day. Wt. Energy level:Not good. Denies fevers. Mouth:denies sores Resp:denies cough or sob Cardiac:denies chest pain/palpitations GI:denies abd pain, +nausea-not taking zofran, denies vomiting, moving bowels regularly mostly diarrhea. takes otc imodium with relief :denies dysuria/hematuria Extrem:my hips have been hurting for the past month. Neuro:+neuropathy to fingers/toes Skin:denies rashes/lesions Heme:denies bleeding The ROS is otherwise negative. Past medical history, appointments, medications, allergies reviewed. No changes. EXAM: BP 151/96 Pulse 74 Temp 36.3 C (97.3 F) (Temporal) Wt 95.5 kg (210 lb 9.6 oz) SpO2 100% BMI 39.76 kg/m APPEARANCE Well appearing, alert, in no acute distress, well-hydrated, well nourished. HEART RRR with normal S1 and S2, no murmurs LUNG clear to auscultation LYMPH NODES No cervical lymphadenopathy, No supraclavicular lymphadenopathy, and No axillary lymphadenopathy. ABDOMEN bowel sounds normoactive, soft, non-tender EXTREMITIES No edema NEURO Awake, alert and oriented x 3, using wheeled walker, and No involuntary motions. SKIN Skin color, texture, turgor normal, no suspicious rashes or lesions ASSESSMENT/PLAN: 1. Multiple myeloma in remission (HCC) - ICD9: 203.01, ICD10: C90.01 - Overall tolerating revlimid fair d/t nausea and diarrhea. Taking imodium with relief. Not taking an anti-emetic. - Reviewed labs with pt. and family member. - Continue current medications. - Continue revlimid at current dose. - Encouraged pt. to take zofran for nausea. - Repeat LFT's/LDH today. - Follow up in [address] Styles with CBC/CMP/LDH/B2/MM labs. - Pt. aware to call office with any questions/concerns. The patient indicates understanding of these issues and agrees with the plan. All documentation from previous visit of 12/07/23-Dr. Heath was copied and pasted, documentation has been reviewed and edited as necessary for today's visit. Saba Roa APRN.DEVELOPMENT COACH documented in this encounterLutheran Hospital06-12-2024 History of Present illness Narrative* Cara Garcia, RN - 03/21/2024 11:43 AM EDT Pt requesting SERS papers to be filled out for disability. Papers given to Dr Heath. He statespatient is in remission and he see's no reason she can't work. Pt aware of Dr Heath's decisionand will speak with her family Dr. Cara Garcia RN documented in this encounterLuther[facility] Hospital05-17-2024 Telephone encounter Note * Telephone Encounter - Sangeeta Garsia LPN - 02/24/2024 7:24 AM EDT [facility] Auth # [id number] Prescription Refill Information The patient has been identified by name and date of : Yes Caregiver verified no other encounters exist for this prescription request: Yes Caregiver confirmed with patient/requestor that no other refills are due, in the near future, with this provider at this time: Yes The last office visit in the department: 12/07/23 Does the patient have a future office visit with this provider/department: Yes Requested Prescriptions Pending Prescriptions Disp Refills REVLIMID 5 mg capsule [Pharmacy Med Name: REVLIMID 5MG] 21 capsule 0 Sig: TAKE 1 CAPSULE BY MOUTH 1 TIME A DAY FOR 21 DAYS ON AND 7 DAYS OFF Sangeeta Garsia LPN February 24, 2024 7:27 AM \ [facility]-17-[facility] Miscellaneous Notes* Telephone Encounter - Sangeeta Garsia LPN - 02/24/2024 7:24 AM EDT [facility] Auth # [id number] Prescription Refill Information The patient has been identified by name and date of : Yes Caregiver verified no other encounters exist for this prescription request: Yes Caregiver confirmed with patient/requestor that no other refills are due, in the near future, with this provider at this time: Yes The last office visit in the department: 12/07/23 Does the patient have a future office visit with this provider/department: Yes Requested Prescriptions Pending Prescriptions Disp Refills REVLIMID 5 mg capsule [Pharmacy Med Name: REVLIMID 5MG] 21 capsule 0 Sig: TAKE 1 CAPSULE BY MOUTH 1 TIME A DAY FOR 21 DAYS ON AND 7 DAYS OFF Sangeeta Garsia LPN February 24, 2024 7:27 AM \ documented in this encounterLuther[facility] Hospital05-14-2024 Telephone encounter Note * Telephone Encounter - Donna Browne LPN - 02/21/2024 9:23 AM EDT Last OV 12/07/23 Donna Browne LPN [facility]-14-[facility] Miscellaneous Notes* Telephone Encounter - Donna Browne LPN - 02/21/2024 9:23 AM EDT Last OV 12/07/23 Donna Browne LPN documented in this encounterL[facility]24 Miscellaneous Notes* Telephone Encounter - Kavon Uriarte RN - 02/13/2024 2:33 PM EDT Carevive Alert Management Note [facility] 1Y21 IRB: [id number] Real World Treatment Experience of Patients with Breast, Lung, or GI Canceror Multiple Myeloma Using Remote Symptom Monitoring Informed Consent signed on: May STUDY ID #: [id number] I called and left the patient a voicemail in regards to her symptoms reported, as well as, the marked yes for callback. Week 09/10 1)A severity rating of Severe was reported for the following symptoms: SA-CTC: Severe Fatigue Alert was managed by RN Did patient request a call back - Yes The Carevive Care Team response included but was not limited to: Continue to Monitor Was study physician consulted / notified No: aBiron Heath M.D. 2)A severity rating of Present was reported for the following symptoms:Carevive: Other Symptoms - Just a couple toes and fingertips are going numb. Alert was managed by RN Did patient request a call back - Yes - Left a voicemail twice. The Carevive Care Team response included but was not limited to: Continue to Monitor Was study physician consulted / notified No: Bairon Heath M.D. He is out. Sales Agent Pest [employer] Service: Kavon Uriarte RN The patient knows to follow provider's treatment plan and to continue to complete the weekly electronic surveys, to be sent for minimum of 12 weeks. Patient understands to call the office sooner if needed and has my contact information for any additional questions regarding the study. Kavon Uriarte RN February 13, 2024 documented in this encounterLuther[facility]05-[facility]24 Telephone encounter Note * Telephone Encounter - Kavon Uriarte RN - 02/13/2024 2:33 PM EDT Carevive Alert Management Note [facility] 1Y21 IRB: [id number] Real World Treatment Experience of Patients with Breast, Lung, or GI Canceror Multiple Myeloma Using Remote Symptom Monitoring Informed Consent signed on: May STUDY ID #: [id number] I called and left the patient a voicemail in regards to her symptoms reported, as well as, the marked yes for callback. Week 09/10 1)A severity rating of Severe was reported for the following symptoms: SA-CTC: Severe Fatigue Alert was managed by RN Did patient request a call back - Yes The Carevive Care Team response included but was not limited to: Continue to Monitor Was study physician consulted / notified No: Bairon Heath M.D. 2)A severity rating of Present was reported for the following symptoms:Carevive: Other Symptoms - Just a couple toes and fingertips are going numb. Alert was managed by RN Did patient request a call back - Yes - Left a voicemail twice. The Carevive Care Team response included but was not limited to: Continue to Monitor Was study physician consulted / notified No: Bairon Heath M.D. He is out. Sales Agent Pest Control Service: Kavon Uriarte RN The patient knows to follow provider's treatment plan and to continue to complete the weekly electronic surveys, to be sent for minimum of 12 weeks. Patient understands to call the office sooner if needed and has my contact information for any additional questions regarding the study. Kavon Uriarte RN February 13, 2024 [facility] History of Present illness Narrative* Kavon Uriarte RN - 02/07/2024 9:26 AM EDT Carevive Alert Management Note [facility] 1Y21 IRB: [id number] Real World Treatment Experience of Patients with Breast, Lung, or GI Canceror Multiple Myeloma Using Remote Symptom Monitoring Informed Consent signed on: May STUDY ID #: [id number] I called and left the patient a voicemail in regards to her symptoms reported, as well as, the marked yes for callback. Week 08/10 1)A severity rating of Severe was reported for the following symptoms: SA-CTC: Severe Fatigue Alert was managed by RN Did patient request a call back - No The Carevive Care Team response included but was not limited to: Continue to Monitor Was study physician consulted / notified No: Bairon Heath M.D. Sales Agent Pest Control Service: Kavon Uriarte RN The patient knows to follow provider's treatment plan and to continue to complete the weekly electronic surveys, to be sent for minimum of 12 weeks. Patient understands to call the office sooner if needed and has my contact information for any additional questions regarding the study. Kavon Uriarte RN February 07, 2024 documented in this encounterLuther[facility]04-24-2024 Telephone encounter Note * Telephone Encounter - Marta Serrano MA - 02/01/2024 1:28 PM EDT Pt notified and verbalizes understanding. Marta Serrano MA [facility] Miscellaneous Notes* Telephone Encounter - Marta Serrano MA - 02/01/2024 1:28 PM EDT Pt notified and verbalizes understanding. Marta Serrano MA * Telephone Encounter - Melissa Cunningham MD - 02/01/2024 7:36 AM EDT Normal gastric emptying study. * Telephone Encounter - Rebecca Atkins RN - 01/04/2024 1:54 PM EDT Patient calling in and states that she had a gastric emptying test done 12/30/23. Final results are in, but Dr. Heath's office told her to contact Dr. Cunningham's office to have him review the results to see what he thinks of it. Patient has seen Amberly in the past, [facility] 03/22/23. documented in this encounterLuther[facility]04-24-2024 Telephone encounter Note * Telephone Encounter - Melissa Cunningham MD - 02/01/2024 7:36 AM EDT Normal gastric emptying study. [facility] Miscellaneous Notes* Telephone Encounter - Katie Vega LPN - 01/24/2024 8:07 AM EDT [facility] auth #[id number]. Please send electronically. Katie Vega LPN * Telephone Encounter - Jo-Ann Perez - 01/23/2024 4:36 PM EDT Pharmacist Jase called in stating that both the brand name and generic are available at this time. If there are questions, he can be reached at [phone] ext [phone]. documented in this encounterLutheran Hospital04-05-2024 History of Present illness Narrative* Jazzmine Husain RT(R) - 01/13/2024 8:40 AM EDT Radiology Service Progress Note DATE OF SERVICE: January 13, 2024 TIME: 8:46 AM PATIENT IDENTITY VERIFICATION COMPLETED USING TWO (2) STANDARD IDENTIFIERS: Name and Date of confirmed by patient verbally. FALL SCREENING: Has the patient had 2 falls in the last year or 1 fall with injury or currently using an Ambulatory Assistive Device (Walker, Cane, Wheelchair, Crutches, etc.)? Yes, Patient High Riskfor Falls What interventions were put in place to prevent falls during this visit? Instructed Patient to Callfor Help if Needed, Offered Assistance with Transfers/Clothing, Instructed Patient to Remain Seated(Not on Exam Table) Until Exam, and Increased Observations by Caregivers PATIENT GENDER DATA: Female. status: : No status: NO. PATIENT RELEVANT IMPLANT DATA REVIEWED: Yes PATIENT PRESENTS WITH AN IMPLANTABLE OR ATTACHED PEDIATRICIAN/MEDICAL DOCTOR: No ALLERGIES: Reviewed and unchanged CONTRAST ALLERGY: NO. EXAM: MRI - CONTRAST TYPE: GROUP II PERIPHERAL IV DATA: Ambulatory: A peripheral IV was started in the Left upper extremity with a Angio cath: 22 gauge. RADIOLOGY DEPARTMENT: MR; Exam(s) Completed: Body: Pancreas/Biliary SIGNATURE: RT Zuleima(R) PATIENT NAME: Alvino Nina DATE: January 13, 2024 TIME: 8:46 AM documented in this encounterLutheran Hospital04-02-2024 History of Present illness Narrative* Kavon Uriarte RN - 01/10/2024 8:42 AM EDT Carevive Alert Management Note [facility] 1Y21 IRB: [id number] Real World Treatment Experience of Patients with Breast, Lung, or GI Canceror Multiple Myeloma Using Remote Symptom Monitoring Informed Consent signed on: May STUDY ID #: [id number] I called and left the patient a voicemail in regards to her symptoms reported, as well as, the marked yes for callback. Week 04/10 1)A severity rating of Severe was reported for the following symptoms: SA-CTC: Severe Fatigue Alert was managed by RN Did patient request a call back - No The Carevive Care Team response included but was not limited to: Continue to Monitor Was study physician consulted / notified No: Bairon Heath M.D. Sales Agent Pest Control Service: Kavon Uriarte RN The patient knows to follow provider's treatment plan and to continue to complete the weekly electronic surveys, to be sent for minimum of 12 weeks. Patient understands to call the office sooner if needed and has my contact information for any additional questions regarding the study. Kavon Uriarte RN January 10, 2024 documented in this encounterLuther[facility] Hospital03-27-2024 Telephone encounter Note * Telephone Encounter - Rebecca Atkins RN - 01/04/2024 1:54 PM EDT Patient calling in and states that she had a gastric emptying test done 12/30/23. Final results are in, but Dr. Heath's office told her to contact Dr. Cunningham's office to have him review the results to see what he thinks of it. Patient has seen Amberly in the past, [facility] 03/22/23. [facility] NoteHNO ID: [id number] Author: KAVON URIARTE RN Service: ? Author Type: Registered Nurse Type: Progress Notes Filed: 01/02/2024 15:24 Note Text: Carevive Alert Management Note [facility] Y21 IRB: [id number] Real World Treatment Experience of Patients with Breast, Lung, or GI Cancer or Multiple Myeloma Using Remote Symptom Monitoring Informed Consent signed on: May STUDY ID #: [id number] I called and left the patient a voicemail in regards to her symptoms reported, as well as, the marked yes for callback. Week 03/10 1)A severity rating of Severe was reported for the following symptoms: SA-CTC: Severe Nausea SA-CTC: Severe Vomiting Alert was managed by RN Did patient request a call back - Yes, but they already spoke to the caretaker grounds. The Carevive Care Team response included but was not limited to: Continue to Monitor Was study physician consulted / notified No: Bairon Heath M.D. Sales Agent Pest Control Service: Kavon Uriarte RN The patient knows to follow provider's treatment plan and to continue to complete the weekly electronic surveys, to be sent for minimum of 12 weeks. Patient understands to call the office sooner if needed and has my contact information for any additional questions regarding the study. Kavon Uriarte RN January 02, 2024[id number] History of Present illness Narrative* Kavon Uriarte RN - 01/02/2024 3:21 PM EDT Carevive Alert Management Note [facility] 1Y21 IRB: [id number] Real World Treatment Experience of Patients with Breast, Lung, or GI Canceror Multiple Myeloma Using Remote Symptom Monitoring Informed Consent signed on: May STUDY ID #: [id number] I called and left the patient a voicemail in regards to her symptoms reported, as well as, the marked yes for callback. Week 03/10 1)A severity rating of Severe was reported for the following symptoms: SA-CTC: Severe Nausea SA-CTC: Severe Vomiting Alert was managed by RN Did patient request a call back - Yes, but they already spoke to the caretaker grounds. The Carevive Care Team response included but was not limited to: Continue to Monitor Was study physician consulted / notified No: Bairon Heath M.D. Sales Agent Pest Control Service: Kavon Uriarte RN The patient knows to follow provider's treatment plan and to continue to complete the weekly electronic surveys, to be sent for minimum of 12 weeks. Patient understands to call the office sooner if needed and has my contact information for any additional questions regarding the study. Kavon Uriarte RN January 02, 2024 documented in this encounterLuther[facility] Hospital03-22-2024 History of Present illness Narrative* Zeina Howard RT(R) - 12/30/2023 7:30 AM EDT RADIOLOGY SERVICE PROGRESS NOTE SERVICE DATE: 12/30/2023 SERVICE TIME: 07:40 AM PATIENT IDENTITY VERIFICATION COMPLETED USING TWO (2) STANDARD IDENTIFIERS: Name and Date of confirmed by patient verbally FALL SCREENING: Has the patient had 2 falls in the last year or 1 fall with injury or currently using an Ambulatory Assistive Device (Walker, Cane, Wheelchair, Crutches, etc.)? Yes, Patient High Riskfor Falls What interventions were put in place to prevent falls during this visit? Instructed Patient to Callfor Help if Needed, Offered Assistance with Transfers/Clothing, Instructed Patient to Remain Seated(Not on Exam Table) Until Exam, Increased Observations by Caregivers, and Escorted to/from Restroom PATIENT GENDER DATA: .female : No ALLERGIES: Reviewed and unchanged MEDICATIONS REVIEWED: No PATIENT RELEVANT IMPLANT DATA REVIEWED: Not Applicable PATIENT PRESENTS WITH AN IMPLANTABLE OR ATTACHED PEDIATRICIAN/MEDICAL DOCTOR: n/a CREATININE: Creatinine Date Value Ref Range Status 11/22/2023 0.84 0.58 - 0.96 mg/dL Final 08/15/2023 0.82 0.58 - 0.96 mg/dL Final 05/25/2023 0.78 0.58 - 0.96 mg/dL Final Estimated Glomerular Filtration Rate Date Value Ref Range Status 11/22/2023 80 >=60 mL/min/1.73m Final Comment: Estimated Glomerular Filtration Rate (eGFR) is calculated using the 2020 CKD-EPI creatinine equation. This equation utilizes serum creatinine, sex, and age as parameters. The creatinine assay has traceable calibration to isotope dilution- mass spectrometry. Refer to KDIGO guidelines for clinical interpretation. In patients with unstable renal function, e.g. those with acute kidney injury, the eGFRmay not accurately reflect actual GFR. eGFR- Date Value Ref Range Status 10/27/2021 >60 Final P.O.C.T. RESULTS: N/A December 30, [address] PERFORMED: No IV SITE: Ambulatory: Not applicable POST EXAM PIV STATUS: Not applicable PROCEDURE TYPE: NM GET: 1.2 mCi Tc99m SULFUR COLLOID was administered orally via 4 ounces of Egg Beaters,1 piece of toast, 1/2 ounce of jelly with 4 ounces of water orally ADMINISTRATION TIME: 07:50 PATIENT DISCHARGED TO: Ambulatory patient, left CT department area. A Diagnostic radioactive procedure has taken place, with no further precautions necessary other than routine body substance precautions. More information regarding radiation safety can be found usingthis link: [email or web address] SIGNATURE: RT Anitha(Teresa) PATIENT NAME: Alvino Nina DATE: December 30, 2023 TIME: 10:26 AM PAGER/CONTACT #: documented in this encounterLuther[facility] Hospital03-20-2024 Miscellaneous Notes* Telephone Encounter - Katie Vega LPN - 12/28/2023 7:58 AM EDT CH4e auth #[id number]. Please send electronically. Katie Vega LPN documented in this encounterLutheran Hospital02-28-2024 History of Present illness Narrative* Josselyn Gamez RT(R) - 12/07/2023 4:00 PM EST Radiology Service Progress Note PATIENT NAME: Alvino Nina DATE OF SERVICE: December 07, 2023 TIME: 4:04 PM PATIENT IDENTITY VERIFICATION COMPLETED USING TWO (2) IDENTIFIERS: Name and Date of confirmedby patient verbally. FALL SCREENING: Has the patient had 2 falls in the last year or 1 fall with injury or currently using an Ambulatory Assistive Device (Walker, Cane, Wheelchair, Crutches, etc.)? Yes, Patient High Riskfor Falls What interventions were put in place to prevent falls during this visit? Instructed Patient to Callfor Help if Needed, Offered Assistance with Transfers/Clothing, and Increased Observations by Caregivers PATIENT GENDER DATA: Female. status: : No status: NO. PATIENT RELEVANT IMPLANT DATA REVIEWED: Yes PATIENT PRESENTS WITH AN IMPLANTABLE OR ATTACHED PEDIATRICIAN/MEDICAL DOCTOR: No RADIOLOGY DEPARTMENT: General X-ray: Exam(s) Completed: Bone Survey PERIPHERAL IV DATA: Not applicable SIGNED BY: RT Ephraim(R) December 07, 2023 4:04 PM documented in this encounterLutheran Hospital02-28-2024 History of Present illness Narrative* Bairon Heath MD - 12/07/2023 3:17 PM EST (Elements copied from my note dated August 22, 2023, have been reviewed and updated where appropriate, and all reflect current assessment and medical decision making from today's encounter, December 07, 2023) HISTORY OF PRESENT ILLNESS: Alvino Nina is a 57 year old female had back pain and MRI scan lumbar spine without contrast showed an acute mild compression fracture at superior end plate of L5.Spinal stenosis at L4 to L5. 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 She continues to have significant pain in her lower back which limited her movement and daily activity. She was on morphine, oxycodone and [place] which causes significant nausea. She is currently on Tylenol, Flexeril and buprenorphine and she still has significant lower back pain. A follow-up MRI scan of the thoracic spine on 06/09/20 also showed acute moderate wedge compression fracture at T11 without obvious protrusion into the spinal canal. There were no obvious lytic lesions or marrow infiltrations in her thoracic or lumbar spine. Here for follow up, was of of revlimid briefly due to inability to get med. When it did resume, gotbad nausea, so we held. Noting more right hip pain, radha with weight bearing. Points out right buttock area as area of pain. Notes early satiety, bloating. Labs reviewed. Liver MRI in January 2023 noted pancreatic cyst, suggested yearly follow up x 5 years. Previous treatment: 1) RvD - lenalidomide, bortezomib, dexamethasone (CR) 2) ASCT 01/15/2021. Maintenance therapy: 1) Lenalidomide 2) Zometa CLINICAL IMPRESSION: Myeloma in remission, on maintenance Revlimid RECOMMENDATION/PLAN: 1. Continue revlimid, will ease back into the dose, take every other day x 4 doses, the daily 2. Pancreas MRI to evaluate pancreatic cyst 3. Gastric emptying study 4. Bone survey 5. Back in 3 months with labs, other follow up based on test results. Written and verbal health teaching given to patient, patient verbalizes understanding and agrees with treatment plan. PAST MEDICAL HISTORY Diagnosis Date Benign renal tumor unsure of malignancy Cancer of right kidney (HCC) Compression fracture of L5 vertebra ([facility]) 05/2020 Compression fracture of T11 vertebra ([facility]) 06/09/2020 acute moderate compression fx withou obvious protrusion into the spinal canal, seen on MRI Endometriosis Environmental allergies Immunodeficiency ([facility]) 03/04/2021 Irregular heart beat Lytic lesion of bone on x-ray 06/25/2020 skull, bilateral humeri, bilateral femurs and possibly the left tibial plateau Multiple myeloma not having achieved remission ([facility]) 06/25/2020 Multiple myeloma not having achieved remission ([facility]) 06/25/2020 Osteopenia 06/25/2020 S/P autologous bone marrow transplantation ([facility]) 01/13/2021 Day: +13 Protocol(s): Auto 3422 1C Melphalan 200 Preparative regimen: melphalan Mobilization regimen: Neupogen Stem cell source: Stem cells CD34 cell dose (x10e6/kg): 5.14 Date of transplant: 01/15/2021 PAST SURGICAL HISTORY Procedure Laterality Date BACK SURGERY HX EGD 03/03/2023 FNA WITH IMAGING 09/12/2012 U/S FNA left thyroid nodule KIDNEY BIOPSY Right 2012 KYPHOPLASTY - LUMBAR 06/05/2020 L5 LAPS ABD PRTM&OMENTUM DX W/WO SPEC BR/WA SPX 1984 Laparoscopy LIG/TRNSXJ FLP TUBE ABDL/VAG APPR UNI/BI 2012 Tubal ligation, with ablation TONSILLECTOMY HX TUMOR REMOVAL (SPECIFY LOCATION) HX Right 2012 kidney FAMILY HISTORY Problem Relation Age of Onset Allergies Brother Hypertension Brother Allergies Sister Breast Cancer Sister Anesthesia Mother Thyroid Mother other (valve replacement) Mother Hypertension Sister Thyroid Sister No Known Problems Paternal Grandmother Ischemic Heart Disease Father Hypertension Father Lung Cancer Father other (CLL) Father Chronic lymphocytic leukemia Heart Maternal Grandmother Colon Cancer Maternal Grandfather Heart Attack Paternal Grandfather 50 Anxiety disorder Brother Hypertension Brother No Known Problems Daughter No Known Problems Son Social History Tobacco Use Smoking status: Former Years: 5 Types: Cigarettes Quit date: 06/23/1997 Years since quittin.4 Smokeless tobacco: Never Tobacco comments: quit smoking cigarettes in 1984 but only had smoked for few years approximately 1 pack/week Vaping Use Vaping Use: Never used Substance Use Topics Alcohol use: Not Currently Comment: socially Drug use: No ALLERGIES: ALLERGIES Allergen Reactions Adhesive Tape (Mariam* Rash Penicillins Hives Other reaction(s): Unknown Vicodin [Hydrocodon* Intolerance Latex Rash Other reaction(s): rash CURRENT OUTPATIENT MEDICATIONS: ZINC ORAL Take 50 mg by mouth once daily. VITAMIN B COMPLEX ORAL Take 1 tablet by mouth once daily. OLANZapine (ZYPREXA) 5 mg tablet Take 5 mg by mouth at bedtime as needed. omeprazole (PRILOSEC) 40 mg capsule TAKE 1 CAPSULE BY MOUTH EVERY DAY venlafaxine ER (EFFEXOR XR) 37.5 mg 24 hr capsule Take three capsules by mouth once daily. Magnesium 200 mg tab Take 200 mg by mouth once daily. ondansetron (ZOFRAN) 8 mg tablet Take 8 mg by mouth every 8 hours as needed for nausea/vomiting. glucosamine HCl/chondroitin brice (GLUCOSAMINE-CHONDROITIN ORAL) Take 1 capsule by mouth once daily. ascorbic acid (VITAMIN C ORAL) Take 1 tablet by mouth once daily. cholecalciferol, vitamin D3, (VITAMIN D3 ORAL) Take 1 tablet by mouth once daily. Lactobacillus acidophilus (PROBIOTIC ORAL) Take 1 tablet by mouth as needed. LORazepam (ATIVAN) 0.5 mg Take 0.25 mg by mouth three times daily as needed. REVLIMID 5 mg capsule TAKE 1 CAPSULE BY MOUTH 1 TIME A DAY FOR 21 DAYS ON AND 7 DAYS OFF prochlorperazine (COMPAZINE) 10 mg tablet Take 1 tablet by mouth every 6 hours as needed. (Patient not taking: Reported on 12/07/2023) acyclovir (ZOVIRAX) 5 % crea Apply to affected area five times a day. acyclovir (ZOVIRAX) 5 % ointment Apply to affected area five times a day. sucralfate (CARAFATE) 1 gram tablet Take 1 tablet by mouth four times daily. (mixed with a little bit of water to make a slurry). acetaminophen 325 mg cap Take 500 mg by mouth once daily. acyclovir (ZOVIRAX) 400 mg tablet Take 1 tablet by mouth every other day. (Patient not taking: Reported on 12/07/2023) aspirin, enteric coated (ASPIRIN, ENTERIC COATED) 81 mg EC tablet Take 81 mg by mouth once daily. Only while on Revlimid escitalopram oxalate (LEXAPRO) 20 mg tablet Take 10 mg by mouth once daily. REVIEW OF SYSTEMS: GENERAL: No fever, night sweats, weight loss or malaise. All other reviewed and negative other than HPI. PHYSICAL EXAMINATION: VITAL SIGNS: BP 148/88 Pulse 88 Temp 97.8 Wt 207 lb (93.9kg) SpO2 97% GENERAL APPEARANCE: Well appearing, in no acute distress, alert and oriented x3, well-hydrated, well nourished. I spent a total of 45 minutes on the date of the service which included preparing to see the patient, [id number] patient care, completing clinical documentation, obtaining and/or reviewing separately obtained history, counseling and educating the patient/family/caregiver, ordering medications, wilfrid ts, or procedures, independently interpreting results (not separately reported), and communicating results to the patient/family/caregiver. Electronically Signed: Bairon Heath MD December 07, 2023 documented in this encounterLutheran Hospital02-27-2024 History of Present illness Narrative* Kavon Uriarte RN - 12/06/2023 1:22 PM EST Carevive Alert Management Note [facility] 1Y21 IRB: 22-840 Real World Treatment Experience of Patients with Breast, Lung, or GI Canceror Multiple Myeloma Using Remote Symptom Monitoring Informed Consent signed on: May STUDY ID #: [id number] I called and left the patient a voicemail in regards to her symptoms reported, as well as, the marked yes for callback. Week 29/09 1)A severity rating of Severe was reported for the following symptoms: SA-CTC: Severe Nausea Alert was managed by RN Did patient request a call back - Yes, but they already spoke to the caretaker grounds. The Carevive Care Team response included but was not limited to: Continue to Monitor Was study physician consulted / notified No: Bairon Heath M.D. Sales Agent Pest Control Service: Kavon Uriarte RN The patient knows to follow provider's treatment plan and to continue to complete the weekly electronic surveys, to be sent for minimum of 12 weeks. Patient understands to call the office sooner if needed and has my contact information for any additional questions regarding the study. Kavon Uriarte RN December 06, 2023 documented in this encounterLutheran Hospital02-22-2024 Miscellaneous Notes* Telephone Encounter - Sangeeta Garsia LPN - 12/01/2023 7:55 AM EST [facility] Auth # [id number] Patient has been identified by name and date of : Yes Requested Prescriptions Pending Prescriptions Disp Refills REVLIMID 5 mg capsule [Pharmacy Med Name: REVLIMID 5MG] 21 capsule 0 Sig: TAKE 1 CAPSULE BY MOUTH 1 TIME A DAY FOR 21 DAYS ON AND 7 DAYS OFF RX INSTRUCTIONS: Patient aware RX will be sent to pharmacy. No need to notify patient. Sangeeta Garsia LPN documented in this encounterLutheran Hospital02-21-2024 Miscellaneous Notes* Telephone Encounter - Heather Cuevas RN - 11/30/2023 4:57 PM EST Patient informed of Dr. Styles's response, stated understanding. Heather Cuevas RN * Telephone Encounter - Jadon Styles DO - 11/30/2023 4:54 PM EST Recommend trying half a tablet of olanzapine at bedtime. Compazine during the day although it may be sedating as well. Jadon Styles DO * Telephone Encounter - Shay Smiley - 11/30/2023 4:47 PM EST Discussed with Dr. Styles - hold revlimid and ASA. Daily PPI, ok to try carafate. Take the full 8mg zofran Q8 hours as needed. Hx of gastritis previously. May need to repeat EGD. Shay Smiley APRN.DEVELOPMENT COACH * Telephone Encounter - Heather Cuevas RN - 11/30/2023 4:45 PM EST Patient instructed to hold revlimid and ASA. Take omeprazole daily. Take Zofran 8 mg every 8 hours.Patient stated a full tablet makes her very drowsy. She is hesitant to take a full tablet of Zofran. Olanzapine helps with nausea but knocks her out so bad worse than Zofran. Patient is asking if there is something else she can take for nausea? Patient uses [facility] in [place]. Patient has a follow-up with Dr. Heath next Tuesday and will update him at that time. Heather Cuevas RN * Telephone Encounter - Heather Cuevas RN - 11/30/2023 12:58 PM EST Care Coordination Triage Note [facility] Situation: Patient reports Nausea/Vomiting Background: Multiple Myeloma, Revlimid- restarted 11/18/23. Patient stated she was off for 6 weeks d/t issues getting the medication. Patient has been on revlimid since 2019 and does not recall having nausea issues in the past. Assessment: NAUSEA When did the nausea start? Shortly after restarting revlimid, 11/18/23, on last week now. Is it constant or intermittent? Constant Are you taking any anti-nausea medications? Zofran 8 mg, 1/2 tablet every 4 hours. Also tried scopolamine 1 mg patch. (Pall care advised zofran/scopolamine) Did you get any relief from this medication? No relief Are you doing anything else that is helping to relieve the nausea? no Is there anything that makes the nausea worse? no When was your last bowel movement? Yesterday, hard side which is unusual for her. Patient does not feel constipated, stated she has BM's daily. What have you been able to eat and drink in the past 24 hours? Yes, doesn't want to eat much. Toasthelps her stomach, also eating chicken noodle soup, meatloaf. Are you taking any pain medications or any new medications including supplements since the nausea started? Started ASA 11/18/23 Taking omeprazole every other day. Had heartburn on a day she didn't take omeprazole so she took omeprazole which helped. Advised patient to start omeprazole daily. Patient was prescribed Carafate back in 02/[address] Styles for acute gastritis related to ASA use.Patient restarted ASA with revlimid this month. Patient has carafate on hand at home but has not used. VOMITING Are you also having any vomiting? yes If yes, when did the vomiting start? Last week, multiple times a few nights, yesterday one episode. How many times have you vomited in the past 24 hours? once Recommendations: Per RNCC, will discuss with Shay and call patient back with further instructions. Heather Cuevas RN November 30, 2023 12:59 PM documented in this encounterLutheran Hospital02-21-2024 History of Present illness Narrative* Kavon Uriarte RN - 11/30/2023 2:32 PM EST Carevive Alert Management Note [facility] 1Y21 IRB: 22-840 Real World Treatment Experience of Patients with Breast, Lung, or GI Canceror Multiple Myeloma Using Remote Symptom Monitoring Informed Consent signed on: May STUDY ID #: [id number] I called and left the patient a voicemail in regards to her symptoms reported, as well as, the marked yes for callback. Week 28/09 1)A severity rating of Severe was reported for the following symptoms: SA-CTC: Almost Constant Nausea SA-CTC: Very Severe Nausea SA-CTC: Nausea Score 3 Alert was managed by RN Did patient request a call back - Yes, but they already spoke to the caretaker grounds. The Carevive Care Team response included but was not limited to: Continue to Monitor Was study physician consulted / notified No: Bairon Heath M.D. 1)A severity rating of Severe was reported for the following symptoms: SA-CTC: Severe Fatigue SA-CTC: Fatigue Score 3 Alert was managed by RN Did patient request a call back - Yes, but they already spoke to the caretaker grounds. The Carevive Care Team response included but was not limited to: Continue to Monitor Was study physician consulted / notified No: Bairon Heath M.D. Sales Agent Pest Control Service: Kavon Uriarte RN The patient knows to follow provider's treatment plan and to continue to complete the weekly electronic surveys, to be sent for minimum of 12 weeks. Patient understands to call the office sooner if needed and has my contact information for any additional questions regarding the study. Kavon Uriarte RN November 30, 2023 documented in this encounterLutheran Hospital02-12-2024 Miscellaneous Notes* Telephone Encounter - Zakiya Han RN - 11/21/2023 3:50 PM EST Care Coordination Triage Note [facility] Situation: Patient reports Nausea/Vomiting Background: Disease, current pertinent medications/treatments Revlimid Assessment: Alerted to patient having nausea by research nurse b/c of symptoms survey completed by patient. Call to patient, states she restarted Revlimid, 11/18/23 and by the evening she has severe nausea/vomiting that was better by the next morning. She states that she is slightly nauseated now but no vomiting since 11/18/23. She has been using Olanzapine and helping but makes her very tired. She states she discussed above with pain management, Dr. Miles, who thinks could be from restarting Revlimid afteran extended time off period. She also sent in a Rx today for Zofran to help with nausea during the day. Patient has not picked that up yet. Patient denies further needs or concerns. Recommendations: Per RNCC, patient directed to: Manage at home. Provided instructions and will call back. Continue with recommendations per Dr. Miles and to keep us updated with any new or concerning symptoms. Will update Dr. Heath with above. Zakiya Han RN November 21, 2023 3:52 PM documented in this encounterLutheran Hospital02-12-2024 History of Present illness Narrative* Kavon Uriarte RN - 11/21/2023 12:25 PM EST Carevive Alert Management Note [facility] 1Y21 IRB: [id number] Real World Treatment Experience of Patients with Breast, Lung, or GI Canceror Multiple Myeloma Using Remote Symptom Monitoring Informed Consent signed on: May STUDY ID #: [id number] I called and left the patient a voicemail in regards to her symptoms reported, as well as, the marked yes for callback. Week 27/09 1)A severity rating of Severe was reported for the following symptoms: SA-CTC: Severe Vomiting Alert was managed by RN Did patient request a call back - No but forwarded chart to caretaker grounds. The Carevive Care Team response included but was not limited to: Continue to Monitor Was study physician consulted / notified No: Bairon Heath M.D. Sales Agent Pest Control Service: Kavon Uriarte RN The patient knows to follow provider's treatment plan and to continue to complete the weekly electronic surveys, to be sent for minimum of 12 weeks. Patient understands to call the office sooner if needed and has my contact information for any additional questions regarding the study. Kavon Uriarte RN November 21, 2023 documented in this encounterLutheran Hospital12-04-2023 Miscellaneous Notes* Telephone Encounter - Sangeeta Garsia LPN - 09/12/2023 8:07 AM EST [facility] auth # [id number] Patient has been identified by name and date of : Yes Requested Prescriptions Pending Prescriptions Disp Refills lenalidomide (REVLIMID) 5 mg capsule 21 capsule 0 Sig: TAKE 1 CAPSULE BY MOUTH ONCE DAILY FOR 21 DAYS ON AND 7 DAYS OFF RX INSTRUCTIONS: Patient aware RX will be sent to pharmacy. No need to notify patient. Sangeeta Garsia LPN documented in this encounterLutheran Hospital11-13-2023 Miscellaneous Notes* Telephone Encounter - Paris Asencio LISW - 08/22/2023 2:58 PM EST SOCIAL WORK FOLLOW UP NOTE: [facility] Date of service: August 22, 2023 Alvino Nina is being seen for a follow up social work visit. Today's visit includes: patient TOPICS ADDRESSED: SW met with pt this date to discuss the renewal application for continued Revlimid assistance. Pt signed application. SW obtained physician's signature as well. SW successfully faxed and sent to internal scanning. SW to update this note with determination is received. PLAN: Assist with financial support applications and Continue follow up as needed F/U APPOINTMENT: PRN Assigned SW listed in Care Team tab: Yes JULIA Tran-Cherise documented in this encounterLutheran Hospital11-13-2023 History of Present illness Narrative* Bairon Heath MD - 08/22/2023 2:42 PM EST (Elements copied from my note dated May 30, 2023, have been reviewed and updated where appropriate, and all reflect current assessment and medical decision making from today's encounter, August 22, 2023) HISTORY OF PRESENT ILLNESS: Alvino Nina is a 57 year old female had back pain and MRI scan lumbar spine without contrast showed an acute mild compression fracture at superior end plate of L5.Spinal stenosis at L4 to L5. 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 She continues to have significant pain in her lower back which limited her movement and daily activity. She was on morphine, oxycodone and [place] which causes significant nausea. She is currently on Tylenol, Flexeril and buprenorphine and she still has significant lower back pain. A follow-up MRI scan of the thoracic spine on 06/09/20 also showed acute moderate wedge compression fracture at T11 without obvious protrusion into the spinal canal. There were no obvious lytic lesions or marrow infiltrations in her thoracic or lumbar spine. Here for follow up, doing well. Labs reviewed. Previous treatment: 1) RvD - lenalidomide, bortezomib, dexamethasone (CR) 2) ASCT 01/15/2021. Maintenance therapy: 1) Lenalidomide 2) Zometa CLINICAL IMPRESSION: Myeloma in remission, on maintenance Revlimid RECOMMENDATION/PLAN: 1. Continue revlimid 2. Back in 3 months Written and verbal health teaching given to patient, patient verbalizes understanding and agrees with treatment plan. PAST MEDICAL HISTORY Diagnosis Date Benign renal tumor unsure of malignancy Cancer of right kidney ([facility]) Compression fracture of L5 vertebra ([facility]) 05/2020 Compression fracture of T11 vertebra ([facility]) 06/09/2020 acute moderate compression fx withou obvious protrusion into the spinal canal, seen on MRI Endometriosis Environmental allergies Immunodeficiency ([facility]) 03/04/2021 Irregular heart beat Lytic lesion of bone on x-ray 06/25/2020 skull, bilateral humeri, bilateral femurs and possibly the left tibial plateau Multiple myeloma not having achieved remission ([facility]) 06/25/2020 Multiple myeloma not having achieved remission ([facility]) 06/25/2020 Osteopenia 06/25/2020 S/P autologous bone marrow transplantation ([facility]) 01/13/2021 Day: +13 Protocol(s): Auto 3422 1C Melphalan 200 Preparative regimen: melphalan Mobilization regimen: Neupogen Stem cell source: Stem cells CD34 cell dose (x10e6/kg): 5.14 Date of transplant: 01/15/2021 PAST SURGICAL HISTORY Procedure Laterality Date BACK SURGERY HX EGD 03/03/2023 FNA WITH IMAGING 09/12/2012 U/S FNA left thyroid nodule KIDNEY BIOPSY Right 2012 KYPHOPLASTY - LUMBAR 06/05/2020 L5 LAPS ABD PRTM&OMENTUM DX W/WO SPEC BR/WA SPX 1984 Laparoscopy LIG/TRNSXJ FLP TUBE ABDL/VAG APPR UNI/BI 2011 Tubal ligation, with ablation TONSILLECTOMY HX TUMOR REMOVAL (SPECIFY LOCATION) HX Right 2012 kidney FAMILY HISTORY Problem Relation Age of Onset Allergies Brother Hypertension Brother Allergies Sister Breast Cancer Sister Anesthesia Mother Thyroid Mother other (valve replacement) Mother Hypertension Sister Thyroid Sister No Known Problems Paternal Grandmother Ischemic Heart Disease Father Hypertension Father Lung Cancer Father other (CLL) Father Chronic lymphocytic leukemia Heart Maternal Grandmother Colon Cancer Maternal Grandfather Heart Attack Paternal Grandfather 50 Anxiety disorder Brother Hypertension Brother No Known Problems Daughter No Known Problems Son Social History Tobacco Use Smoking status: Former Years: 5 Types: Cigarettes Quit date: 06/23/1997 Years since quittin.1 Smokeless tobacco: Never Tobacco comments: quit smoking cigarettes in 1984 but only had smoked for few years approximately 1 pack/week Vaping Use Vaping Use: Never used Substance Use Topics Alcohol use: Not Currently Comment: socially Drug use: No ALLERGIES: ALLERGIES Allergen Reactions Adhesive Tape (Mariam* Rash Penicillins Hives Other reaction(s): Unknown Vicodin [Hydrocodon* Intolerance Latex Rash Other reaction(s): rash CURRENT OUTPATIENT MEDICATIONS: VITAMIN B COMPLEX ORAL Take 1 tablet by mouth once daily. OLANZapine (ZYPREXA) 5 mg tablet Take 5 mg by mouth at bedtime as needed. lenalidomide (REVLIMID) 5 mg capsule TAKE 1 CAPSULE BY MOUTH ONCE DAILY FOR 21 DAYS ON AND 7 DAYS OFF omeprazole (PRILOSEC) 40 mg capsule TAKE 1 CAPSULE BY MOUTH EVERY DAY (Patient taking differently: Take 40 mg by mouth every other day.) venlafaxine ER (EFFEXOR XR) 37.5 mg 24 hr capsule Take three capsules by mouth once daily. Magnesium 200 mg tab Take 200 mg by mouth once daily. ondansetron (ZOFRAN) 8 mg tablet Take 8 mg by mouth every 8 hours as needed for nausea/vomiting. glucosamine HCl/chondroitin brice (GLUCOSAMINE-CHONDROITIN ORAL) Take 1 capsule by mouth once daily. acyclovir (ZOVIRAX) 400 mg tablet Take 1 tablet by mouth every other day. aspirin, enteric coated (ASPIRIN, ENTERIC COATED) 81 mg EC tablet Take 81 mg by mouth once daily. Only while on Revlimid ascorbic acid (VITAMIN C ORAL) Take 1 tablet by mouth once daily. cholecalciferol, vitamin D3, (VITAMIN D3 ORAL) Take 1 tablet by mouth once daily. Lactobacillus acidophilus (PROBIOTIC ORAL) Take 1 tablet by mouth as needed. LORazepam (ATIVAN) 0.5 mg Take 0.25 mg by mouth three times daily as needed. sucralfate (CARAFATE) 1 gram tablet Take 1 tablet by mouth four times daily. (mixed with a little bit of water to make a slurry). acetaminophen 325 mg cap Take 500 mg by mouth once daily. escitalopram oxalate (LEXAPRO) 20 mg tablet Take 10 mg by mouth once daily. REVIEW OF SYSTEMS: GENERAL: No fever, night sweats, weight loss or malaise. All other reviewed and negative other than HPI. PHYSICAL EXAMINATION: VITAL SIGNS: BP 134/83 Pulse 77 Temp (Src) 97.4 (Temporal) Wt 200 lb 8 oz (90.9kg) SpO2 96% GENERAL APPEARANCE: Well appearing, in no acute distress, alert and oriented x3, well-hydrated, well nourished. I spent a total of 30 minutes on the date of the service which included preparing to see the patient, [id number] patient care, completing clinical documentation, obtaining and/or reviewing separately obtained history, counseling and educating the patient/family/caregiver, ordering medications, wilfrid ts, or procedures, independently interpreting results (not separately reported), and communicating results to the patient/family/caregiver. Electronically Signed: Bairon Heath MD August 22, 2023 documented in this encounterLutheran Hospital11-06-2023 Miscellaneous Notes* Telephone Encounter - Zakiya Han RN - 08/15/2023 3:43 PM EST [facility] Care Coordination FOLLOW-UP NOTE Patient identified by name and date of . YES Spoke to patient Summary: (Reason for follow-up) Per Kavon research nurse, filled out survey stating severe nausea, vomiting Concerns: (New Barriers to care) Call to patient, states she had severe nausea and vomiting in the middle of the night x 1 this pastweek. And, had it prior in the middle of the night 2 weeks ago. She states that she has Olanzapine and just this week started taking it at bedtime and is helping. She states that she using Zofran during the day but always a little nauseated and I'm just used to it She is able to eat and drink fluids. She will discuss further at office visit on 08/22/23. She denies any needs or other concerns at this time. This nurse will add Olanzapine back to med list (Rx per Dr. Rankin) Patient verbalized when to seek Medical Attention and an understanding of after- hours phone numberand process: Yes Care Coordination Plan: No further follow up needed at this time Zakiya Han RN August 15, 2023 documented in this encounterLutheran Hospital10-31-2023 Miscellaneous Notes* Telephone Encounter - Katie Vega LPN - 08/09/2023 1:12 PM EDT [facility] auth # [id number]. Pleas send electronically. Katie Vega LPN documented in this encounterLutheran Hospital10-17-2023 History of Present illness Narrative* Kavon Uriarte RN - 07/26/2023 9:29 AM EDT Carevive Alert Management Note [facility] 1Y21 IRB: 22-840 Real World Treatment Experience of Patients with Breast, Lung, or GI Canceror Multiple Myeloma Using Remote Symptom Monitoring Informed Consent signed on: May STUDY ID #: [id number] I called and left the patient a voicemail in regards to her symptoms reported, as well as, the marked yes for callback. Week 03/21 1)A severity rating of Severe was reported for the following symptoms: Fatigue Alert was managed by RN Did patient request a call back YNo The Carevive Care Team response included but was not limited to: Continue to Monitor - Please let me know if this is worsening [phone] Was study physician consulted / notified No: Bairon Heath M.D. Sales Agent Pest Control Service: Kavon Uriarte RN The patient knows to follow provider's treatment plan and to continue to complete the weekly electronic surveys, to be sent for minimum of 12 weeks. Patient understands to call the office sooner if needed and has my contact information for any additional questions regarding the study. Kavon Uriarte RN July 26, 2023 documented in this encounterLutheran Hospital10-09-2023 History of Present illness Narrative* Kavon Uriarte RN - 07/18/2023 12:47 PM EDT Carevive Alert Management Note [facility] 1Y21 IRB: 22-840 Real World Treatment Experience of Patients with Breast, Lung, or GI Canceror Multiple Myeloma Using Remote Symptom Monitoring Informed Consent signed on: May STUDY ID #: [id number] I called and left the patient a voicemail in regards to her symptoms reported, as well as, the marked yes for callback. Week 5 1)A severity rating of Severe was reported for the following symptoms: Fatigue Alert was managed by RN Did patient request a call back YNo The Carevive Care Team response included but was not limited to: Continue to Monitor - Please let me know if this is worsening [phone] Was study physician consulted / notified No: Bairon Heath M.D. 2)A severity rating of Severe was reported for the following symptoms: Nausea Alert was managed by RN Did patient request a call back YNo The Carevive Care Team response included but was not limited to: Continue to Monitor - Please let me know if this is worsening [phone] Was study physician consulted / notified No: Bairon Heath M.D. Sales Agent Pest Control Service: Kavon Uriarte RN The patient knows to follow provider's treatment plan and to continue to complete the weekly electronic surveys, to be sent for minimum of 12 weeks. Patient understands to call the office sooner if needed and has my contact information for any additional questions regarding the study. Kavon Uriarte RN July 18, 2023 documented in this encounterLutheran Hospital09-28-2023 Miscellaneous Notes* Telephone Encounter - Donna Browne LPN - 07/07/2023 1:22 PM EDT Pharmacy requesting 90 day refill. Donna Browne LPN documented in this encounterLutheran Hospital09-22-2023 History of Present illness Narrative* Geno Valdez PA-C - 07/01/2023 1:06 PM EDT E-Consult Response In response to your eConsult request to [facility] for Alvino Nina regarding: headache referral. History of present illness provided through requesting provider documentation and current treatmentplan was reviewed. Based on the patient history provided, my impression is as follows: It appears based on note reviewthat referral to neurology was recommended for evaluation of headaches. I see this has been scheduled for Jul 21. Please let me know if there are further questions. Geno Valdez PA-C July 01, 2023 documented in this encounterLutheran Hospital09-22-2023 Miscellaneous Notes* Telephone Encounter - Jo-Ann Perez - 07/01/2023 9:06 AM EDT Patient returned call and scheduled. Jo-Ann Perez * Telephone Encounter - Jo-Ann Perez - 07/01/2023 8:22 AM EDT LM for patient to return call. When she calls, please schedule MRI Brain and Headache Clinic Consult. Jo-Ann Perez * Telephone Encounter - Zakiya Han RN - 06/30/2023 4:48 PM EDT PSS: please call patient to set up MRI Brain and referral to the Headache Clinic. Jamia Han RN * Telephone Encounter - Zakiya Han RN - 06/30/2023 4:42 PM EDT Discussed with Dr. Heath. He would like he to decrease the amount of Tylenol she is using and try Ibupofen. Order in for MRI Brain and referral to the Headache Clinic. Jamia Han RN Call to patient and aware of above. Questions answered. Jamia Han RN * Telephone Encounter - Zakiya Han RN - 06/30/2023 1:01 PM EDT [facility] Care Coordination FOLLOW-UP NOTE Patient identified by name and date of . YES Spoke to patient Summary: (Reason for follow-up) Headaches Concerns: (New Barriers to care) She states that it is unusual for her to get headaches and starting last Tuesday, she has had them daily, all day. States the headache is all over; maybe stronger on the right Describes as throbbing and achy. States wakes up with headaches, rates 10/10. It will even wake her up in the middle of the night. If pain is bad enough will run down the back of her neck also. She is taking Tylenol 500-1000mg at a time which will relieve the headache within a few hours but will return later in the day. She will take more Tylenol, it will relieve it but then returns later in the evening and she will take more Tylenol. Depending on how nauseated she feels, she will take either 500 or 1000mg each time. Other symptoms, nausea, sensitivity to noise, not sure if sensitive to light. States she has some weakness and dizziness at times but feels that this has been worse this past week. Denies blurry vision. Does not check BP. Denies any new meds/supplements. New Referrals Needed: will discuss with Dr Heath Is the patient having any pain? as discussed above Patient verbalized when to seek Medical Attention and an understanding of after- hours phone numberand process: Yes Care Coordination Plan: She is aware that I will discuss with Dr. Heath and call back with further instructions. Zakiya Han RN June 30, 2023 * Telephone Encounter - Lola Forde - 06/30/2023 10:49 AM EDT Pt approached the front window cashier complaining about headaches. She said she wakes up with them and they fizzle out during the morning and come back during the day and doesn't go away. Pt has been taking tylenol and laying down with a cold rag. She said every other day she has migraine like pain. Patient asking if this could be from her chemo? PT asking if she needs to talk about this with Dr. Jacobson or if he would put orders In for her to see neurologist. Her next OV isn't until 08/22/2023. Please advise on how you would like us to proceed. Thank you! Lola documented in this encounterLuther[facility] Hospital09-20-2023 Miscellaneous Notes* Telephone Encounter - Zakiya Han RN - 06/29/2023 11:33 AM EDT Patient has not returned call. Spoke with research nurse. She states she tried calling patient again also and patient has since completed another survey for her and only c/o was fatigue and did not request a call back. Jamia Han RN * Telephone Encounter - Zakiya Han RN - 06/20/2023 3:34 PM EDT [facility] Care Coordination FOLLOW-UP NOTE Per Research Nurse, patient with multiple issues, she tried to reach out to patient, no answer and message left. Dr. Heath is aware and willing to see patient this week. Call to patient, message left to call me back and phone/contact number provided. Zakiya Han RN June 20, 2023 documented in this encounterLutheran Hospital09-11-2023 Miscellaneous Notes* Telephone Encounter - Kavon Uriarte RN - 06/20/2023 10:41 AM EDT Carevive Alert Management Note [facility] 1Y21 IRB: [id number] Real World Treatment Experience of Patients with Breast, Lung, or GI Canceror Multiple Myeloma Using Remote Symptom Monitoring Informed Consent signed on: May STUDY ID #: [id number] I called and left the patient a voicemail in regards to her symptoms reported, as well as, the marked yes for callback. Week Baseline/12 1)A severity rating of Severe was reported for the following symptoms: Anxiety Alert was managed by RN Did patient request a call back Yes The Carevive Care Team response included but was not limited to: Continue to Monitor and Other:Informed MD, left a voicemail for the patient, and informed caretaker grounds Was study physician consulted / notified YES - Informed MD, left a voicemail for the patient, and informed caretaker grounds : Bairon Heath M.D. 2)A severity rating of Present was reported for the following symptoms: Bruising Alert was managed by RN Did patient request a call back Yes The Carevive Care Team response included but was not limited to: Continue to Monitor and other:Informed MD, left a voicemail for the patient, and informed caretaker grounds Was study physician consulted / notified YES - Informed MD, left a voicemail for the patient, and informed caretaker grounds: Bairon Heath M.D. 3)A severity rating of Severe was reported for the following symptoms: Diarrhea Alert was managed by RN Did patient request a call back Yes The Carevive Care Team response included but was not limited to: Continue to Monitor and Other -Informed MD, left a voicemail for the patient, and informed caretaker grounds Was study physician consulted / notified YES - Informed MD, left a voicemail for the patient, and informed caretaker grounds: Bairon Heath M.D. 4)A severity rating of Severe was reported for the following symptoms: Fatigue Alert was managed by RN Did patient request a call back Yes The Carevive Care Team response included but was not limited to: Continue to Monitor and Other:Informed MD, left a voicemail for the patient, and informed caretaker grounds Was study physician consulted / notified YES - Informed MD, left a voicemail for the patient, and informed caretaker grounds: Bairon Heath M.D. 5)A severity rating of Severe was reported for the following symptoms: Nausea Alert was managed by RN Did patient request a call back Yes The Carevive Care Team response included but was not limited to: Continue to Monitor and Other:Informed MD, left a voicemail for the patient, and informed caretaker grounds Was study physician consulted / notified YES - Informed MD, left a voicemail for the patient, and informed caretaker grounds: Bairon Heath M.D. 6)A severity rating of Present was reported for the following symptoms: Carevive: Other Symptoms - My skin on my toes peels when on rwvlimid and also...sometimes I loose part of my eyelashes Alert was managed by RN Did patient request a call back Yes The Carevive Care Team response included but was not limited to: Continue to Monitor and Other:Informed MD, left a voicemail for the patient, and informed caretaker grounds Was study physician consulted / notified YES - Informed MD, left a voicemail for the patient, and informed caretaker grounds: Bairon Heath M.D. 7)A severity rating of Severe was reported for the following symptoms: General Pain Alert was managed by RN Did patient request a call back Yes The Carevive Care Team response included but was not limited to: Continue to Monitor and Other:Informed MD, left a voicemail for the patient, and informed caretaker grounds Was study physician consulted / notified YES - Informed MD, left a voicemail for the patient, and informed caretaker grounds: Bairon Heath M.D. Sales Agent Pest Control Service: Kavon Uriarte RN The patient knows to follow provider's treatment plan and to continue to complete the weekly electronic surveys, to be sent for minimum of 12 weeks. Patient understands to call the office sooner if needed and has my contact information for any additional questions regarding the study. Kavon Uriarte RN 10:48 AM June 20, 2023 documented in this encounterLutheran Hospital09-05-2023 Miscellaneous Notes* Telephone Encounter - Kavon Uriarte RN - 06/14/2023 1:53 PM EDT Went to leave a voicemail and the call seemed to have been dropped mid message - potentially left part of a message. I will attempt to reach the patient again later this week. Kavon Uriarte RN documented in this encounterLutheran Hospital08-31-2023 Miscellaneous Notes* Telephone Encounter - Sangeeta Garsia LPN - 06/09/2023 2:17 PM EDT [facility] auth # [id number] Patient has been identified by name and date of : Yes Requested Prescriptions Pending Prescriptions Disp Refills lenalidomide (REVLIMID) 5 mg capsule 21 capsule 0 Sig: TAKE 1 CAPSULE BY MOUTH ONCE DAILY FOR 21 DAYS ON AND 7 DAYS OFF RX INSTRUCTIONS: Patient aware RX will be sent to pharmacy. No need to notify patient. Sangeeta Garsia LPN documented in this encounterLutheran Hospital08-30-2023 Miscellaneous Notes* Telephone Encounter - Kavon Uriarte RN - 06/08/2023 3:10 PM EDT Left patient a voicemail in regards to the clinical trial survey study. Kavon Uriarte RN documented in this encounterLutheran Hospital08-22-2023 Miscellaneous Notes* Telephone Encounter - Sangeeta Pritchett LPN - 05/31/2023 8:[address] Styles , he is unable to accept all of Dr. Stewart's pts. , since he has taken on quite a few ofthem already . Regrettably needs to start to decline requests. Therefore he is asking Alvino to continue with Dr. Heath. Attempted to contact pt. To inform , left message on identified voicemail with Dr. Styles regrets. If she has questions to please feel free to contact office Sangeeta Pritchett LPN * Telephone Encounter - Jo-Ann Perez - 05/30/2023 4:11 PM EDT Patient saw Dr. Styles in the interlude when there was no one covering Dr. Stewart patients and is asking to switch to Dr. Styles. Please advise. Jo-Ann Perez documented in this encounterLutheran Hospital08-21-2023 History of Present illness Narrative* Kavon Uriarte, STACI - 05/30/2023 3:40 PM EDT Clinical Trial Informed Consent & Screening [facility] 1Y21 IRB: [id number] Real World Treatment Experience of Patients with Breast, Lung, or GI Canceror Multiple Myeloma Using Remote Symptom Monitoring Patient seen today to obtain clinical trial informed consent. Patient states he/she has read the consent. The patient meets study criteria as discussed with Dr. Bairon Heath M.D. . All study related questions have been addressed or answered at this time. Contact information for research team wasprovided within the consent. Consent willingly signed by patient and approved study pipe or steam fitter furnace installer on May at 3:30 pm. Patient given copy of signed informed consent. Enrollment in this study does NOT alter treatment plans. Informed Consent signed on: May STUDY ID #: [id number] Met with Patient today. Patient has consented to the above mentioned study and screening documentation is provided below. All of the patient's questions were answered. Subject is 18 years of age or older Yes Subject understands [place]er Yes Subject may be any stage and anywhere in the treatment continuum Yes Subject must have a diagnosis of a breast, lung, GI or ovarian cancer or multiple myeloma Yes Disease PRG: MM Subject must be able to complete on-line surveys using a cell phone, tablet, or computer Yes Patient meets all Criteria for Study Participation: Yes Study includes the following: Electronic Survey via subject's personal device Fire Sprinkler Inspector(s): Lance Holm MD [facility] [address] [facility] [place] [id number] [email or web address] Sales Agent Pest Control Service: Jazzmine Garg Lead Pager: [email or web address] The patient knows to follow provider's treatment plan and to complete the baseline survey within 5-days of receipt. Weekly electronic surveys to be sent for minimum of 12 weeks. Patient understands to call the office sooner if needed and has my contact information for any additional questions regarding the study. Kavon Uriarte RN 3:46 PM May 30, 2023 documented in this encounterLutheran Hospital08-21-2023 History of Present illness Narrative* Bairon Heath MD - 05/30/2023 3:16 PM EDT HISTORY OF PRESENT ILLNESS: Alvino Nina is a 57 year old female had back pain and MRI scan lumbar spine without contrast showed an acute mild compression fracture at superior end plate of L5.Spinal stenosis at L4 to L5. 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 She continues to have significant pain in her lower back which limited her movement and daily activity. She was on morphine, oxycodone and [place] which causes significant nausea. She is currently on Tylenol, Flexeril and buprenorphine and she still has significant lower back pain. A follow-up MRI scan of the thoracic spine on 06/09/20 also showed acute moderate wedge compression fracture at T11 without obvious protrusion into the spinal canal. There were no obvious lytic lesions or marrow infiltrations in her thoracic or lumbar spine. Here for follow up, doing well. Labs reviewed. Previous treatment: 1) RvD - lenalidomide, bortezomib, dexamethasone (CR) 2) ASCT 01/15/2021. Maintenance therapy: 1) Lenalidomide 2) Zometa CLINICAL IMPRESSION: Myeloma in remission, on maintenance Revlimid RECOMMENDATION/PLAN: 1. Continue revlimid 2. Back in 3 months Written and verbal health teaching given to patient, patient verbalizes understanding and agrees with treatment plan. PAST MEDICAL HISTORY Diagnosis Date Benign renal tumor unsure of malignancy Cancer of right kidney (HCC) Compression fracture of L5 vertebra ([facility]) 05/2020 Compression fracture of T11 vertebra ([facility]) 06/09/2020 acute moderate compression fx withou obvious protrusion into the spinal canal, seen on MRI Endometriosis Environmental allergies Immunodeficiency ([facility]) 03/04/2021 Irregular heart beat Lytic lesion of bone on x-ray 06/25/2020 skull, bilateral humeri, bilateral femurs and possibly the left tibial plateau Multiple myeloma not having achieved remission ([facility]) 06/25/2020 Multiple myeloma not having achieved remission ([facility]) 06/25/2020 Osteopenia 06/25/2020 S/P autologous bone marrow transplantation ([facility]) 01/13/2021 Day: +13 Protocol(s): Auto 3422 1C Melphalan 200 Preparative regimen: melphalan Mobilization regimen: Neupogen Stem cell source: Stem cells CD34 cell dose (x10e6/kg): 5.14 Date of transplant: 01/15/2021 PAST SURGICAL HISTORY Procedure Laterality Date BACK SURGERY HX EGD 03/03/2023 FNA WITH IMAGING 09/12/2012 U/S FNA left thyroid nodule KIDNEY BIOPSY Right 2012 KYPHOPLASTY - LUMBAR 06/05/2020 L5 LAPS ABD PRTM&OMENTUM DX W/WO SPEC BR/WA SPX 1984 Laparoscopy LIG/TRNSXJ FLP TUBE ABDL/VAG APPR UNI/BI 2012 Tubal ligation, with ablation TONSILLECTOMY HX TUMOR REMOVAL (SPECIFY LOCATION) HX Right 2012 kidney FAMILY HISTORY Problem Relation Age of Onset Allergies Brother Hypertension Brother Allergies Sister Breast Cancer Sister Anesthesia Mother Thyroid Mother other (valve replacement) Mother Hypertension Sister Thyroid Sister No Known Problems Paternal Grandmother Ischemic Heart Disease Father Hypertension Father Lung Cancer Father other (CLL) Father Chronic lymphocytic leukemia Heart Maternal Grandmother Colon Cancer Maternal Grandfather Heart Attack Paternal Grandfather 50 Anxiety disorder Brother Hypertension Brother No Known Problems Daughter No Known Problems Son Social History Tobacco Use Smoking status: Former Years: 5 Types: Cigarettes Quit date: 06/23/1997 Years since quittin.9 Smokeless tobacco: Never Tobacco comments: quit smoking cigarettes in 1984 but only had smoked for few years approximately 1 pack/week Vaping Use Vaping Use: Never used Substance Use Topics Alcohol use: Not Currently Comment: socially Drug use: No ALLERGIES: ALLERGIES Allergen Reactions Adhesive Tape (Mariam* Rash Penicillins Hives Other reaction(s): Unknown Vicodin [Hydrocodon* Intolerance Latex Rash Other reaction(s): rash CURRENT OUTPATIENT MEDICATIONS: venlafaxine ER (EFFEXOR XR) 37.5 mg 24 hr capsule Take 37.5 mg by mouth once daily. 3 tablets in am omeprazole (PRILOSEC) 40 mg capsule TAKE 1 CAPSULE BY MOUTH ONCE DAILY lenalidomide (REVLIMID) 5 mg capsule TAKE 1 CAPSULE BY MOUTH ONCE DAILY FOR 21 DAYS ON AND 7 DAYS OFF Magnesium 200 mg tab Take 200 mg by mouth once daily. ondansetron (ZOFRAN) 8 mg tablet Take 8 mg by mouth every 8 hours as needed for nausea/vomiting. sucralfate (CARAFATE) 1 gram tablet Take 1 tablet by mouth four times daily. (mixed with a little bit of water to make a slurry). acetaminophen 325 mg cap Take 500 mg by mouth once daily. glucosamine HCl/chondroitin brice (GLUCOSAMINE-CHONDROITIN ORAL) Take 1 capsule by mouth once daily. acyclovir (ZOVIRAX) 400 mg tablet Take 1 tablet by mouth once daily. aspirin, enteric coated (ASPIRIN, ENTERIC COATED) 81 mg EC tablet Take 81 mg by mouth once daily. Only while on Revlimid ascorbic acid (VITAMIN C ORAL) Take 1 tablet by mouth once daily. cholecalciferol, vitamin D3, (VITAMIN D3 ORAL) Take 1 tablet by mouth once daily. Lactobacillus acidophilus (PROBIOTIC ORAL) Take 1 tablet by mouth as needed. LORazepam (ATIVAN) 0.5 mg Take 0.25 mg by mouth three times daily as needed. escitalopram oxalate (LEXAPRO) 20 mg tablet Take 10 mg by mouth once daily. REVIEW OF SYSTEMS: GENERAL: No fever, night sweats, weight loss or malaise. All other reviewed and negative other than HPI. PHYSICAL EXAMINATION: VITAL SIGNS: BP 134/82 Pulse 83 Temp 97.7 Ht 5' 1.024 (1.55m) Wt 200 lb (90.7kg) SpO2 96% BMI 37.76 kg/(m^2). GENERAL APPEARANCE: Well appearing, in no acute distress, alert and oriented x3, well-hydrated, well nourished. I spent a total of 30 minutes on the date of the service which included preparing to see the patient, [id number] patient care, completing clinical documentation, obtaining and/or reviewing separately obtained history, counseling and educating the patient/family/caregiver, ordering medications, wilfrid ts, or procedures, independently interpreting results (not separately reported), and communicating results to the patient/family/caregiver. Electronically Signed: Bairon Heath MD May 30, 2023 3:18 PM documented in this encounterLutheran Hospital08-15-2023 Miscellaneous Notes* Telephone Encounter - Sangeeta Pritchett LPN - 05/24/2023 10:28 AM EDT Patient has been identified by name and date of : Yes Requested Prescriptions Pending Prescriptions Disp Refills omeprazole (PRILOSEC) 40 mg capsule [Pharmacy Med Name: OMEPRAZOLE DR 40 MG CAPSULE] 30 capsule 0 Sig: TAKE 1 CAPSULE BY MOUTH ONCE DAILY RX INSTRUCTIONS: Patient aware RX will be sent to pharmacy. No need to notify patient. Sangeeta Pritchett LPN documented in this encounterLutheran Hospital08-03-2023 Miscellaneous Notes* Telephone Encounter - Katie Vega LPN - 05/12/2023 8:36 AM EDT [facility] auth # [id number]. Please send electronically. Katie Vega LPN documented in this encounterLutheran Hospital07-20-2023 Miscellaneous Notes* Telephone Encounter - Sangeeta Pritchett LPN - 04/28/2023 7:31 AM EDT Patient has been identified by name and date of : Yes Requested Prescriptions Pending Prescriptions Disp Refills omeprazole (PRILOSEC) 40 mg capsule 30 capsule 0 Sig: Take 1 capsule by mouth once daily. RX INSTRUCTIONS: Patient aware RX will be sent to pharmacy. No need to notify patient. Sangeeta Pritchett LPN * Telephone Encounter - Jo-Ann Perez - 04/27/2023 4:49 PM EDT Patient called in requesting a refill of her omeprazole. Please advise. Jo-Ann Perez documented in this encounterLutheran Hospital07-11-2023 Miscellaneous Notes* Telephone Encounter - Katie Vega LPN - 04/19/2023 8:04 AM EDT [employer] auth # [id number]. Please send electronically. Detailed message left on patient's identified VM letting her know that I was able to obtain a [employer] auth number this morning. Katie Vega LPN * Telephone Encounter - Jo-Ann Perez - 04/18/2023 5:01 PM EDT Patient called in checking the status as she only has 1 pill left. Patient was advised of the message below (re: [employer] auth). Patient is asking for a phone call letting her know when the authorization is approved so she can get her refill. Jo-Ann Perez * Telephone Encounter - Nichole Valladares - 04/18/2023 9:40 AM EDT Patient called stating she has 2 left. * Telephone Encounter - Katie Vega LPN - 04/18/2023 8:27 AM EDT Unable to obtain [employer] auth until approximately 04/23/2023. Will try again later this week. Katie Vega LPN * Telephone Encounter - Nichole Valladares - 04/15/2023 4:23 PM EDT Patient requesting refill of Revlimid. Patient states it comes to her via [employer]. Previous rx looks like it was thru [facility]. Please confirm. Thank you. documented in this encounterLutheran Hospital06-29-2023 History of Present illness Narrative* Zeina Howard, RT(R) - 04/07/2023 9:30 AM EDT RADIOLOGY SERVICE PROGRESS NOTE SERVICE DATE: 04/07/2023 SERVICE TIME: 09:35 AM PATIENT IDENTITY VERIFICATION COMPLETED USING TWO (2) STANDARD IDENTIFIERS: Name and Date of confirmed by patient verbally FALL SCREENING: Has the patient had 2 falls in the last year or 1 fall with injury or currently using an Ambulatory Assistive Device (Walker, Cane, Wheelchair, Crutches, etc.)? No PATIENT GENDER DATA: .female : No ALLERGIES: Reviewed and unchanged MEDICATIONS REVIEWED: No PATIENT RELEVANT IMPLANT DATA REVIEWED: Not Applicable CREATININE: Creatinine Date Value Ref Range Status 03/08/2023 0.84 0.58 - 0.96 mg/dL Final 03/04/2023 0.81 0.58 - 0.96 mg/dL Final 12/09/2022 0.78 0.58 - 0.96 mg/dL Final Estimated Glomerular Filtration Rate Date Value Ref Range Status 03/08/2023 81 >=60 mL/min/1.73m Final Comment: Estimated Glomerular Filtration Rate (eGFR) is calculated using the 2020 CKD-EPI creatinine equation. This equation utilizes serum creatinine, sex, and age as parameters. The creatinine assay has traceable calibration to isotope dilution- mass spectrometry. Refer to KDIGO guidelines for clinical interpretation. In patients with unstable renal function, e.g. those with acute kidney injury, the eGFRmay not accurately reflect actual GFR. eGFR- Date Value Ref Range Status 10/27/2021 >60 Final P.O.C.T. RESULTS: N/A April 07, [address] PERFORMED: No IV SITE: Ambulatory: A peripheral IV was started in the Right with a Angio cath: 24 gauge. POST EXAM PIV STATUS: Discontinued PROCEDURE TYPE: NM INJECT: Hepatobiliary with Gallbladder EF. 5.6 mCi Tc99m CHOLETEC. CCK 1.87 micrograms intravenous at 10:54. ADMINISTRATION TIME: 09:48 PATIENT DISCHARGED TO: Ambulatory patient, left NM department area. A Diagnostic radioactive procedure has taken place, with no further precautions necessary other than routine body substance precautions. More information regarding radiation safety can be found usingthis link: [email or web address] SIGNATURE: RAYSA Welsh) PATIENT NAME: Alvino Nina DATE: April 07, 2023 TIME: 11:34 AM PAGER/CONTACT #: documented in this encounterLutheran Hospital06-26-2023 History of Present illness Narrative* Melissa Cunningham MD - 04/04/2023 1:13 PM EDT Subjective: Patient still complaining of epigastric right upper quadrant abdominal pain. Gallbladder ultrasound was negative. We have no other imaging as of yet. Objective:Blood pressure 118/82, pulse 82, temperature 36.4 C (97.5 F), height 154.9 cm (5' 1), weight 93.4 kg (205 lb 12.8 oz), SpO2 97 %. Abdomen is soft may be some slight discomfort on palpation in the epigastric area. No rebound guarding or peritoneal signs is identified. Assessment:Abdominal bloating (primary encounter diagnosis) Epigastric pain Nausea Plan: We will obtain a HIDA scan with ejection fraction on her I will have her follow back up afterthis is completed. documented in this encounterLutheran Hospital06-19-2023 Miscellaneous Notes* Telephone Encounter - Tahir Nugent LPN - 03/28/2023 3:49 PM EDT Patient updated. Tahir Nugent LPN * Telephone Encounter - Melissa Cunningham MD - 03/28/2023 12:26 PM EDT Yes these medications are fine * Telephone Encounter - Tatiana Stevens RN - 03/25/2023 10:45 AM EDT Patient calls office and reports that she was prescribed Minerva D and oral steroids for a URI. Patient wants to double check with Dr. Cunningham to see if it is safe to take medication given her abdominal symptoms? Please advise. documented in this encounterLutheran Hospital06-15-2023 Miscellaneous Notes* Telephone Encounter - Jadon Styles DO - 03/24/2023 5:38 PM EDT The following approved medication requests have been transmitted electronically. Requested Prescriptions Signed Prescriptions Disp Refills lenalidomide (REVLIMID) 5 mg capsule 21 capsule 0 Sig: TAKE 1 CAPSULE BY MOUTH ONCE DAILY FOR 21 DAYS ON AND 7 DAYS OFF Authorizing Provider: JADON STYLES DO * Telephone Encounter - Sangeeta Pritchett LPN - 03/24/2023 3:04 PM EDT Left message on pts. Voicemail, will contact her back later this afternoon with info. Also rx for Prilosec was sent yesterday. Dr. Styles please RX order. Sangeeta Pritchett LPN * Telephone Encounter - Sangeeta Pritchett LPN - 03/24/2023 3:02 PM EDT [facility] auth # [id number] Patient has been identified by name and date of : Yes Requested Prescriptions Pending Prescriptions Disp Refills lenalidomide (REVLIMID) 5 mg capsule 21 capsule 0 Sig: TAKE 1 CAPSULE BY MOUTH ONCE DAILY FOR 21 DAYS ON AND 7 DAYS OFF RX INSTRUCTIONS: Patient aware RX will be sent to pharmacy. No need to notify patient. Sangeeta Pritchett LPN * Telephone Encounter - Jadon Styles DO - 03/24/2023 2:47 PM EDT She can restart. Katie is going to get of new authorization number for the prescription and we will send it LARS. Jadon Styles DO * Telephone Encounter - Sangeeta Pritchett LPN - 03/24/2023 2:31 PM EDT Pt. Is wondering when she can resume her Revlimid? Starting to worry since she has been off for awhile. Pt.has been holding her Revlimid since 01/28 due to the abdominal discomfort she had been having. On 04/07 she is scheduled for Hida scan . Not having the emergent abdominal pain she had been having, but still has the discomfort, bloating, nauseated feeling(no Vomiting). She will need new rx sent. Sangeeta Pritchett LPN * Telephone Encounter - Nichole García Pss - 03/24/2023 2:07 PM EDT Patient called stating she is waiting for a call from yesterday regarding Revlimid. Please advise. documented in this encounterLutheran Hospital06-15-2023 Miscellaneous Notes* Telephone Encounter - Nichole Ricky King - 03/24/2023 2:04 PM EDT Patient has been identified by name and date of : Yes Last office visit in this department: Visit date not found RX INSTRUCTIONS: Patient aware RX will be sent to pharmacy. No need to notify patient. Patient phones requesting refills as follows: Requested Prescriptions Pending Prescriptions Disp Refills omeprazole (PRILOSEC) 40 mg capsule 30 capsule 0 Sig: Take 1 capsule by mouth once daily. Please review and advise. Nichole King documented in this encounterLutheran Hospital06-13-2023 Nurse Note* Charlene Reich LPN - 03/22/2023 9:40 AM EDT REVIEW OF SYSTEMS: General: The patient denies fatigue, denies weight loss, denies weight gain, denies feeling hot, and denies feelings of cold. Eyes: The patient denies glaucoma, denies eye injury/surgery, wears glasses or contacts. Ear/Nose/Throat: The patient NOTES allergies, denies hayfever, denies ear infections, and denies bloody noses. Cardiovascular: The patient denies chest pain, denies heart disease, denies high blood pressure,denies cardiac stent, denies prior heart attack, NOTES irregular heart beat, denies high cholesterol, denies poor circulation, denies heart failure, other cardiac issues, denies claudication, denies coldfeet, denies peripheral arterial stent. Respiratory: The patient denies tuberculosis, denies pneumonia, denies frequent cough, denies pulmonary embolism, denies shortness of breath, and denies coughing up blood. Gastrointestinal: The patient denies difficulty swallowing, denies acid reflux, denies ulcers, denies vomiting, denies jaundice/hepatitis, denies gallbladder problems, denies black or tarry stools, denies hemorrhoids, denies bleeding from rectum, denies diverticulitis, denies constipation, denies diarrhea, denies loss of stool control, and denies hernias. Kidney/Bladder: The patient denies kidney stones, denies urine infections, and denies bloody urine. Skin: The patient denies a history of skin cancer, denies bleeding/changing moles, and denies a history of skin rash. Neurologic: The patient denies a history of epilepsy/convulsions, denies headaches, denies head/spinal injuries, and denies stroke/TIA. Psychiatric: The patient denies psychiatric medications, denies depression, and denies voices, denies substance abuse. Endocrine: The patient NOTES thyroid disorders, denies diabetes, and denies hormonal problems. Hematologic: The patient denies a history of bruising, denies bleeding, and denies anemia, denies blood clots. Infections: The patient denies a history of measles and mumps, denies rheumatic fever, and denies sexually transmitted diseases. Musculoskeletal: The patient NOTES back pain/injury, NOTES back problems, denies sciatica, denies knee/foot trouble, denies arthritis, or denies gout. When was patient's last Mammogram screening? N/a N/a Last Colonoscopy: no prior Charlene Reich LPN documented in this encounterLutheran Hospital06-05-2023 Miscellaneous Notes* Telephone Encounter - Zakiya Han RN - 03/14/2023 2:05 PM EDT [facility] Care Coordination FOLLOW-UP NOTE Patient identified by name and date of . YES Spoke to patient Summary: (Reason for follow-up) Follow up on symptoms Concerns: (New Barriers to care) Patient states that she is not having the severe pain she was having; not the emergency room painIt is now more of what she has been dealing with all along: early satiety, bloating, nausea that istolerable She has Zofran from Dr. Miles but has not used. She has been using the Omeprazole and Carafate. Patient denies any new symptoms or concerns. New Referrals Needed: No, has OV with Dr. Cunningham on 03/22/23 Is the patient having any pain? as discussed above Medication questions or concerns? no Line, drain, or catheter education given? N/A Patient verbalized when to seek Medical Attention and an understanding of after- hours phone numberand process: Yes Care Coordination Plan: Will update Dr. Styles and call back if any further instructions. Zakiya Han RN March 14, 2023 documented in this encounterLutheran Hospital06-05-2023 Miscellaneous Notes* Telephone Encounter - Lola Forde - 03/14/2023 12:43 PM EDT Fax sent and confirmation scanned into [employer] Lola * Telephone Encounter - Nichole King - 03/14/2023 10:33 AM EDT [facility] requesting demographics and insurance cards to be faxed to [phone]. documented in this encounterLutheran Hospital06-02-2023 Miscellaneous Notes* Telephone Encounter - Jo-Ann Perez - 03/11/2023 9:00 AM EDT Referral faxed and fax confirmation scanned into [employer]. Jo-Ann Perez * Telephone Encounter - Jo-Ann Perez - 03/08/2023 4:26 PM EDT Check out comments: Referral to Dr. Herbert for right renal cyst. Has h/o right RCC. Add labs today.- COMPLETED 24 hour urine M-spike. - GIVEN Follow up as scheduled for now. documented in this encounterLutheran Hospital06-02-2023 Miscellaneous Notes* Telephone Encounter - Nichole García Pss - 03/11/2023 8:04 AM EDT Scheduled appointment with patient. * Telephone Encounter - Donna Browne LPN - 03/10/2023 10:12 AM EDT pt returned call. Message reviewed with patient who voices understanding. Please reach out to get her a GI apt, she would be willing to see Dr Foster if appropriate as he did her scope in the past. Donna Browne LPN * Telephone Encounter - Katie Vega LPN - 03/10/2023 8:30 AM EDT Left message for patient to contact office. Katie Vega LPN * Telephone Encounter - Jadon Styles DO - 03/10/2023 8:15 AM EDT Her lipase is mildly elevated if she is passing an occasional small gallstone or sludge leading to transient recurrent acute pancreatitis that is mild. The recent MRI did not suggest any pancreatic inflammation or necrosis. But her complaint was epigastric pain that radiates into the back which is kind of unusual for gastritis so I think she would be best served with a formal GI evaluation. So far lab work suggests her myeloma is still in remission so I will place a referral for GI and we will see if we can get something quickly for her. In the meantime it would be best for her to avoid foodswith high saturated fat content such as beef, butter and grease. Jadon Styles DO documented in this encounterLutheran Hospital05-31-2023 Miscellaneous Notes* Telephone Encounter - Isa Stoner RN - 03/09/2023 12:46 PM EDT Left voicemail for Alvino Fernandez's message. Cancelled follow-up appointment for Tuesday. Surgical history updated. Isa Stoner, RN * Telephone Encounter - Rebecca Turner PA-C - 03/09/2023 10:57 AM EDT Noted, this is fine * Telephone Encounter - Lawanda Ray - 03/09/2023 9:17 AM EDT Pt would like to know if it is okay to cancel follow up appointment with Rebecca Turner. She had a conversation with Dr. Styles about the results and did not think it was necessary to come in to see Rebecca on Tuesday. Please verify it is okay to cancel. documented in this encounterLutheran Hospital05-31-2023 Miscellaneous Notes* Telephone Encounter - aKtie Vega LPN - 03/09/2023 12:00 PM EDT Patient notified. Katie Vega LPN * Telephone Encounter - Jadon Styles DO - 03/08/2023 6:50 PM EDT Let her know liver enzymes much better. Jadon Styles DO documented in this encounterLutheran Hospital05-30-2023 History of Present illness Narrative* Jadon Styles DO - 03/08/2023 2:43 PM EDT DIAGNOSIS: Multiple myeloma (IgA kappa / light chain subtype) in complete remission. -Multiple compression fractures ( @ T11, L1 & sacrum ) s/p radiation therapy to involved area. 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 HPI: 57-year-old female with history of acute lower back pain summer 2019. Lower back pain has gotten a lot worse over the last several weeks. She has a history of stage I pT1a, Nx renal (clear cell)carcinoma status post right partial nephrectomy 8 years ago. She has been free of disease. Her initial evaluation included MRI scan lumbar spine without contrast showed an acute mild compression fracture at superior end plate of L5. Spinal stenosis at L4 to L5. 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 She continues to have significant pain in her lower back which limited her movement and daily activity. She was on morphine, oxycodone and [place] which causes significant nausea. She is currently on Tylenol, Flexeril and buprenorphine and she still has significant lower back pain. A follow-up MRI scan of the thoracic spine on 06/09/20 also showed acute moderate wedge compression fracture at T11 without obvious protrusion into the spinal canal. There were noobvious lytic lesions or marrow infiltrations in her thoracic or lumbar spine. Previous treatment: 1) RvD - lenalidomide, bortezomib, dexamethasone (CR) 2) ASCT 01/15/2021. Maintenance therapy: 1) Lenalidomide 2) Zometa Interim history: Recent work up for sharp, persistent epigastric pain that radiated around side of ribs and into upper back. Started omeprazole 02/02. EGD 03/03/2023: The Z-line was regular and was found 35 cm from the incisors. Biopsies were taken with a cold forceps for histology. Localized minimal inflammation characterized by erythema was found in the prepyloric region of the stomach. Biopsies were taken with a cold forceps for Helicobacter pylori testing. The examined duodenum was normal. Biopsies for histology were taken with a cold forceps for evaluation of celiac disease. Pathology: A. Duodenum, biopsy: - Small bowel mucosa with no significant diagnostic alteration. - No evidence of celiac disease or enteritis. B. Gastric antrum, biopsy: - Oxyntic mucosa with no significant diagnostic alteration. - No morphologic evidence of Helicobacter pylori organisms. C. Distal esophagus, biopsy: - Mildly inflamed cardiofundic-type mucosa, negative for intestinal metaplasia. - Reactive squamous mucosa with no significant inflammation, including no eosinophilia. - Separate scant fragment of unremarkable small bowel epithelium, favor carryover from part A. D. Mid esophagus, biopsy: - Squamous mucosa with no significant diagnostic alteration. - No evidence of esophagitis or eosinophilia. PMH, medications and allergies personally reviewed by me today. Any changes documented in appropriate section. ROS: Constitutional: No fever. No drenching night sweats. Neuro: No recent DUNN, vertigo, dizziness or imbalance. HEENT: No recent change in voice, vision or hearing. Resp: No cough, wheeze of hemoptysis. No shortness of breath at rest. No RODRIGUEZ. CVS: No exertional chest pain, PND or orthopnea. No extremity swelling/edema. No symptoms of claudication. No painful or tender varicose veins. GI: See HPI. : No dysuria or gross hematuria. No symptoms of bladder outlet obstruction. Endo: No hot flashes. No polyuria or polydipsia. No heat or cold intolerance. Musculoskeletal: No bone, back, joint and muscular pain. Derm: No current rash. No history of jaundice. No diffuse pruritis. Heme: No unusual bleeding and unexplained bruising. Psych: Normal mood. PHYSICAL EXAM: Vitals: Blood pressure 123/83, pulse 83, temperature 36.6 C (97.9 F), temperature source Temporal, weight 93.7 kg (206 lb 8 oz), SpO2 96 %. Well-appearing and in no acute distress. EYES: Sclerae are anicteric bilaterally. ENT: Oral mucosa is unremarkable. There is no sign of thrush or mucositis. LYMPHATIC: There is no palpable cervical, supraclavicular adenopathy. RESPIRATORY: Inspiratory breath sounds are of normal intensity in all mccord. No rales, wheezes or rhonchi. Expiratory phase is normal. CARDIOVASCULAR: Rhythm is regular. ABDOMEN: The abdomen is nondistended. No splenomegaly or hepatomegaly. Tender in epigastrium. Extremities: No swelling or edema. SKIN: No jaundice or rash. No petechiae. LABORATORY DATA: Component Latest Ref Rng & Units 03/04/2023 WBC 3.70 - 11.00 k/uL 8.56 RBC 3.90 - 5.20 m/uL 4.08 Hemoglobin 11.5 - 15.5 g/dL 12.6 Hematocrit 36.0 - 46.0 % 37.8 MCV 80.0 - 100.0 fL 92.6 MCH 26.0 - 34.0 pg 30.9 MCHC 30.5 - 36.0 g/dL 33.3 RDW-CV 11.5 - 15.0 % 11.9 Platelet Count 150 - 400 k/uL 165 MPV 9.0 - 12.7 fL 9.3 Neut% % 77.8 Abs Neut (ANC) 1.45 - 7.50 k/uL 6.66 Lymph% % 11.6 Abs Lymph 1.00 - 4.00 k/uL 0.99 (L) [place]% % 8.3 Abs [place] <0.87 k/uL 0.71 Eosin% % 1.6 Abs Eosin <0.46 k/uL 0.14 Baso% % 0.5 Abs Baso <0.11 k/uL 0.04 Immature Gran % % 0.2 IMMATURE GRANS (ABS) <0.10 k/uL <0.03 NRBC /100 WBC 0.0 Absolute nRBC <0.01 k/uL <0.01 DTYPE Auto Protein, Total 6.3 - 8.0 g/dL 7.2 Albumin 3.9 - 4.9 g/dL 4.3 Calcium 8.5 - 10.2 mg/dL 9.2 Bilirubin, Total 0.2 - 1.3 mg/dL 0.4 Alkaline Phosphatase 34 - 123 U/L 97 AST 13 - 35 U/L 110 (H) ALT 7 - 38 U/L 109 (H) Glucose 74 - 99 mg/dL 98 BUN 7 - 21 mg/dL 15 Creatinine 0.58 - 0.96 mg/dL 0.81 Sodium 136 - 144 mmol/L 138 Potassium 3.7 - 5.1 mmol/L 4.1 Chloride 97 - 105 mmol/L 102 CO2 22 - 30 mmol/L 27 Anion Gap 9 - 18 mmol/L 9 eGFR >=60 mL/min/1.73m 84 Component Latest Ref Rng & Units 06/08/2021 08/03/2021 12/24/2021 03/18/2022 06/29/2022 09/21/2022 12/09/2022 03/04/2023 Albumin 3.43 - 5.41 g/dL 3.54 3.85 3.72 3.93 4.32 Alpha 1 Globulin 0.18 - 0.43 g/dL 0.22 0.26 0.20 0.38 0.30 Alpha 2 Globulin 0.42 - 0.98 g/dL 0.62 0.70 0.63 0.63 0.50 Beta Globulin 0.61 - 1.17 g/dL 0.80 (L) 0.87 0.83 (L) 0.76 0.78 Gamma Globulin 0.53 - 1.51 g/dL 0.51 (L) 0.51 (L) 0.53 (L) 0.60 0.60 Interpretation (Prot Electro) No definitive M protein is identified on protein electrophoresis. No definitive M protein is identified on protein electrophoresis. No definitive M protein is identifiedon protein electrophoresis. No definitive M protein is identified on protein electrophoresis. No definitive M protein is identified on protein electrophoresis. No definitive M protein is identified on protein electrophoresis. Interpretation Comment for Protein Electrophoresis Hypogammaglobulinemia is present, which can be seen in the setting of monoclonal gammopathy. If clinically indicated, monoclonal protein analysis and serum free light chain analysis are suggested to evaluate further for monoclonal gammopathy. Hypoga mmaglobulinemia is present, which can be seen in the setting of monoclonal gammopathy. If clinically indicated, monoclonal protein analysis and serum free light chain analysis are suggested to evaluate further for monoclonal gammopathy. Hypogammaglobulinemia is present, which can be seen in the setting of monoclonal gammopathy. If clinically indicated, monoclonal protein analysis and serum free light chain analysis are suggested to evaluate further for monoclonal gammopathy. M-Protein Location M-Protein Concentration <=0.00 g/dL 0.00 0.00 0.00 0.00 0.00 SPE Staff Review Reviewed by Hussein Ritter MD, Ph.D ([id number]) Reviewed by Carri Peters MD Reviewed by Hussein Ritter MD, Ph.D ([id number]) Reviewed by Jason Nguyen M.D. Reviewed by Carri Peters MD [place] Free, Serum 3.3 - 19.4 mg/L 9.1 10.2 8.7 12.4 18.5 13.2 15.5 11.7 Lambda Free, Serum 5.7 - 26.3 mg/L 9.5 6.7 7.9 8.1 8.8 7.1 9.5 7.4 K/L Ratio, Serum 0.26 - 1.65 0.96 1.52 1.10 1.53 2.10 (H) 1.86 (H) 1.63 1.58 IMAGING: MRI Liver 01/26/2023: Liver: No fatty liver or iron deposition. A 2.1 cm lesion in the periphery. The segment 3 demonstrates mildly increased T2 signal, low T1 signal demonstrates peripheral nodular discontinuous enhancement and centripetal filling on delayed phases represent a small hemangioma. Other few hepatic cysts measure up to 1.4 cm in the segment 8 and 0.8 cm in the segment 7 centrally. Biliary: There is no intrahepatic biliary dilatation. The common bile duct is normal in course and caliber. No filling defects are identified within the common bile duct. Gallbladder is unremarkable. Pancreas: No pancreatic ductal dilation. A 0.9 cm circumscribed T2 hyperintense lesion in the posterior aspect of the pancreatic head likely represents a small pancreatic cyst, partially imaged on the lumbar MRI of 05/2020. No communication with the main pancreatic duct identified, no suspicious nodular component. Spleen: There is no splenomegaly. There are no focal splenic lesions. Adrenals: No mass. Kidneys: Symmetric nephrograms. Focal susceptibility in the right lateral interpolar region likely reflects an area of prior surgery as noted on 05/2020. A 1.2cm T2 hyperintense lesion in the anterior interpolar region of the right kidney suggest minimally complex cyst accentuated due to respiratory motion. No hydronephrosis. Vasculature: - Abdominal aorta: No aneurysm. - Celiac and SMA: Patent without stenosis. - Portal venous system (SMV, splenic vein, portal vein and branches): Patent. - Hepatic veins: Patent. -Other: Asymmetric prominence of the left gonadal vein measures up to 1.0 cm, unchanged. Visualized portions of the GI tract: No dilation or wall thickening. Mesentery/ peritoneum:No mass or ascites. Lymphadenopathy: Absent. Musculoskeletal/soft tissues: Multilevel compression fracture deformities throughout the thoracolumbar spine as noted on the recent CT in keeping with known history of multiple myeloma. Lung bases: Unremarkable. Environment Artist (topogram) images: No additional findings. IMPRESSION: 1. A 2.1 cm hemangioma is present in the hepatic segment 3. 2. A 0.9 cm cyst in the pancreatic head, stable since 2019. Recommend imaging follow-up with contrast-enhanced MRI or pancreas-protocol CT yearly for up to 5 years. 3. A 1.2 cm circumscribed cystic lesion in the anterior right interpolar region suggests minimally complex cyst for which attention on follow-up is recommended. US kidney and bladder 02/22/2023: RESULT: Limitations: Excessive bowel gas and body habitus. Right Kidney: -Renal length: 9.6 cm -Parenchyma: Normal parenchymal echogenicity. Normal parenchymal thickness. -Collecting system: No hydronephrosis. -Calculus: No echogenic, shadowing calculus. -Lesion: There is a 3.5 x 2.5 x 3.2 cm cyst in the interpolar kidney. Left Kidney: -Renal length: 10.8 cm -Parenchyma: Normal parenchymal echogenicity. Normal parenchymal thickness. -Collecting system: No hydronephrosis. -Calculus: No echogenic, shadowing calculus. -Lesion: None. Bladder: Decompressed/partially decompressed. Prevoid volume 42 cc. IMPRESSION: Right renal cyst. ASSESSMENT/PLAN: (C90.01) Multiple myeloma in remission (HCC) (primary encounter diagnosis) Assessment: -57 year-old female with multiple myeloma, ISS Stage 1, [place] Stage 2. IgA kappa light chainsubtype. 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 -No serum monoclonal protein by electrophoresis and immunofixation 12/2022. -Was on lenalidomide 5 mg day 1-21, every 28 days and aspirin 81mg once daily (probably long-term because of the aggressive nature of her multiple myeloma on presentation). Unfortunately, incomplete labs drawn for today. Plan: -Check SPEP and immunofixation. -Plan to resume lenalidomide maintenance once gastritis symptoms improved. -May need low dose apixaban for VTE prophylaxis. -Continue Zometa today and every 3 months. 3. Chronic pain of the thoracic & lumbar spine secondary to multiple compression fractures. -No focal neurological symptoms. -No new areas of unexplained pain. Plan: -Follow-up with Dr. Tiera Miles regarding chronic pain management (K29.00) Acute gastritis without hemorrhage, unspecified gastritis type Assessment: -Likely gastritis from chronic ASA use. -Has history pancreatitis. Plan: -Continue omeprazole 40 mg daily. -Check lipase (h/o pancreatitis). -Add Carafate. -Follow up with her in a week. (Z85.828) History of kidney cancer (N28.1) Cyst of right kidney Assessment: -New cyst in right kidney. Plan: -Referral to Dr. Herbert. (K86.2) Pancreas cyst Assessment: -Stable on recent MRI 02/2023. Plan: -Recommend imaging follow-up with contrast-enhanced MRI or pancreas-protocol CT yearly for up to 5 years. (R79.89) Abnormal LFTs Assessment: -Taking Tylenol 500 mg once daily. -No alcohol use. Plan: -Check hep remote panel. -Stop Tylenol. -Recheck CMP. Portions of this documentation were copied and pasted from previous office visit notes in order to provide a cohesive continuity of the history. The note has been reviewed and edited and updated as necessary. I spent a total of 40 minutes on the date of the service which included preparing to see the patient, [id number] patient care, completing clinical documentation, obtaining and/or reviewing separately obtained history, performing a medically appropriate examination, counseling and educating the pat ient/family/caregiver, ordering medications, tests, or procedures, and communicating results to thepatient/family/caregiver. Jadon Styles DO Cc: Dr. Tiera Miles, [facility] MD Dr. Piedad Hunt documented in this encounterLutheran Hospital05-25-2023 History and physical note * Melissa Cunningham MD - 03/03/2023 2:15 PM EDT Images from the original note were not included. HISTORY AND PHYSICAL Alvino Emily Nina 1965 REFERRING PHYSICIAN: Jadon Styles DO CHIEF COMPLAINT: No chief complaint on file. HPI: The patient is a 57 year old female referred for endoscopy. Alvino notes no history of colon complaints. The patient notes the following upper complaints: Alvino notes abdominal pain. The pain occurs in the following locations: epigastric region, The patient describes the pain as a 7 on a scale of 0-10, The pain has the following character: severe, sharp, shooting, and stabbing, The pain has been present for few weeks, The pain occurs daily . Alvino denies heartburn. Alvino denies dysphagia. Alvino denies a history of ulcers/ peptic ulcer disease. Alvino has not undergone prior endoscopy. The patient is being seen by me today at the request of Dr. Styles for my opinion and advice regarding Multiple myeloma, without mention of having achieved remission (hcc) Epigastric pain (primary encounter diagnosis). PAST MEDICAL HISTORY PAST MEDICAL HISTORY Diagnosis Date Benign renal tumor unsure of malignancy Cancer of right kidney (HCC) Compression fracture of L5 vertebra ([facility]) 05/2020 Compression fracture of T11 vertebra ([facility]) 06/09/2020 acute moderate compression fx withou obvious protrusion into the spinal canal, seen on MRI Endometriosis Environmental allergies Immunodeficiency ([facility]) 03/04/2021 Irregular heart beat Lytic lesion of bone on x-ray 06/25/2020 skull, bilateral humeri, bilateral femurs and possibly the left tibial plateau Multiple myeloma not having achieved remission ([facility]) 06/25/2020 Multiple myeloma not having achieved remission ([facility]) 06/25/2020 Osteopenia 06/25/2020 S/P autologous bone marrow transplantation ([facility]) 01/13/2021 Day: +13 Protocol(s): Auto 3422 1C Melphalan 200 Preparative regimen: melphalan Mobilization regimen: Neupogen Stem cell source: Stem cells CD34 cell dose (x10e6/kg): 5.14 Date of transplant: 01/15/2021 PAST SURGICAL HISTORY PAST SURGICAL HISTORY Procedure Laterality Date FNA WITH IMAGING 09/12/2012 U/S FNA left thyroid nodule KIDNEY BIOPSY Right 2012 KYPHOPLASTY - LUMBAR 06/05/2020 L5 LAPS ABD PRTM&OMENTUM DX W/WO SPEC BR/WA SPX 1984 Laparoscopy LIG/TRNSXJ FLP TUBE ABDL/VAG APPR UNI/BI 2011 Tubal ligation, with ablation TONSILLECTOMY HX TUMOR REMOVAL (SPECIFY LOCATION) HX Right 2012 kidney CURRENT MEDICATIONS Current Outpatient Medications Medication Sig lenalidomide (REVLIMID) 5 mg capsule TAKE 1 CAPSULE BY MOUTH ONCE DAILY FOR 21 DAYS ON AND 7 DAYS OFF omeprazole (PRILOSEC) 40 mg capsule Take 1 capsule by mouth once daily. acetaminophen 325 mg cap Take 500 mg by mouth twice daily. glucosamine HCl/chondroitin brice (GLUCOSAMINE-CHONDROITIN ORAL) Take 1 capsule by mouth once daily. acyclovir (ZOVIRAX) 400 mg tablet Take 1 tablet by mouth once daily. OLANZapine (ZYPREXA) 5 mg tablet Take 5 mg by mouth as needed. aspirin, enteric coated (ASPIRIN, ENTERIC COATED) 81 mg EC tablet Take 81 mg by mouth once daily. ascorbic acid (VITAMIN C ORAL) Take 1 tablet by mouth once daily. cholecalciferol, vitamin D3, (VITAMIN D3 ORAL) Take 1 tablet by mouth once daily. Lactobacillus acidophilus (PROBIOTIC ORAL) Take 1 tablet by mouth once daily. escitalopram oxalate (LEXAPRO) 20 mg tablet Take 10 mg by mouth once daily. LORazepam (ATIVAN) 0.5 mg Take 0.25 mg by mouth three times daily as needed. famotidine (PEPCID) 20 mg tablet Take 20 mg by mouth once daily. No current facility-administered medications for this visit. ALLERGIES: Adhesive Tape (Rosins), Penicillins, Vicodin [Hydrocodone- Acetaminophen], and Latex PERSONAL HISTORY: SOCIAL HISTORY Social History Tobacco Use Smoking status: Former Years: 5.00 Types: Cigarettes Quit date: 06/23/1997 Years since quittin.7 Smokeless tobacco: Never Tobacco comments: quit smoking cigarettes in 1984 but only had smoked for few years approximately 1 pack/week Vaping Use Vaping Use: Never used Substance Use Topics Alcohol use: Not Currently Comment: socially Drug use: No FAMILY HISTORY: FAMILY HISTORY FAMILY HISTORY Problem Relation Age of Onset Allergies Brother Hypertension Brother Allergies Sister Breast Cancer Sister Anesthesia Mother Thyroid Mother other (valve replacement) Mother Hypertension Sister Thyroid Sister No Known Problems Paternal Grandmother Ischemic Heart Disease Father Hypertension Father Lung Cancer Father other (CLL) Father Chronic lymphocytic leukemia Heart Maternal Grandmother Colon Cancer Maternal Grandfather Heart Attack Paternal Grandfather 50 Anxiety disorder Brother Hypertension Brother No Known Problems Daughter No Known Problems Son REVIEW OF SYMPTOMS: The review of systems data was entered by the nurse and reviewed by me There are no exam notes on file for this visit. PHYSICAL EXAMINATION: General: The patient is 57 year old female, well nourished, well hydrated in no acute distress. Thepatient is oriented to time, place, and person. VITALS: There were no vitals taken for this visit. There is no height or weight on file to calculate BMI. HEENT: Normal cephalic, ataumatic, pupils are equally round, sclera are anicteric, mucous membranesare moist, oropharynx is clear. Neck has no masses, asymmetry or lymphadenopathy. Thyroid is unremarkable. Respiratory: Clear to auscultation and percussion. Normal respiratory excursion and pattern. Cardiac: Examination is regular rate and rhythm. Abdominal exam: Soft, nontender, with no palpable masses. No hepatosplenomegaly. No palpable hernias. Rectal exam: exam deferred Extremities: no clubbing, cyanosis or edema. No adenopathy. Other: LABORATORY VALUES: As Noted RADIOLOGIC STUDIES: As Noted Assessment IMPRESSION: Multiple myeloma, without mention of having achieved remission (hcc) Epigastric pain (primary encounter diagnosis) PLAN: I plan to perform upper endoscopy. We discussed the risks and benefits of the planned endoscopy. I have informed the patient that complications can occur including failure to complete the endoscopy and perforation. The patient had the opportunity to ask questions concerning the planned endoscopy. My staff has also explained the procedure to the patient in understandable terms and has given the patient printed material concerning the procedure. The patient freely consents to surgery. I gave her a prescription for Percocet for pain. I also would like for her to use Pepto-Bismol. Diagnoses: (R10.13) Epigastric pain (primary encounter diagnosis) (C90.00) Multiple myeloma, without mention of having achieved remission (HCC) My findings have been communicated to Dr. Styles via shared medical record. This note will be forwarded to Dr. Ysabel Esteban, DEVELOPMENT COACH. Return to Clinic: The patient is instructed to follow-up with me 1 week post operatively. Melissa Cunningham III, MD UPDATED HISTORY AND PHYSICAL EXAMINATION SERVICE DATE: 03/03/2023 SERVICE TIME: 12:53 PM PHYSICAL EXAM MUST BE COMPLETED ON ADMISSION The History and Physical (completed in the past 30 days) has been reviewed and the patient has beenexamined. The contents accurately reflect the patient's condition with the following additions or revisions since the H&P was completed. Examination indicates no changes. This H&P can be found in the attached. SIGNATURE: Melissa Cunningham III, MD PATIENT NAME: Alvino Nina DATE: March 03, 2023 TIME: 12:53 PM documented in this encounterLuther[facility]05-25-[facility]23 Nurse Note* Chelsea Carrera RN - 03/03/2023 1:35 PM EDT Arrived in phase II via cart. Left lateral position. Sedated, but responds to verbal stimuli. Colornormal; skin warm and dry. Respirations wnl and unlabored. Abdomen soft and with + bowel sounds in quads X 4. Patient resting comfortably. Family at bedside. Dr. Cunningham at bedside to review procedure and recommendations. Chelsea Carrera RN documented in this encounterLutheran Hospital05-12-2023 History of Present illness Narrative* Ysabel Abbasi RDMS - 02/18/2023 10:30 AM EDT Radiology Service Progress Note PATIENT NAME: Alvino Nina DATE OF SERVICE: February 18, 2023 TIME: 11:06 AM PATIENT IDENTITY VERIFICATION COMPLETED USING TWO (2) IDENTIFIERS: Name and Date of confirmedby patient verbally. FALL SCREENING: Has the patient had 2 falls in the last year or 1 fall with injury or currently using an Ambulatory Assistive Device (Walker, Cane, Wheelchair, Crutches, etc.)? Yes, Patient High Riskfor Falls What interventions were put in place to prevent falls during this visit? Instructed Patient to Callfor Help if Needed, Offered Assistance with Transfers/Clothing, Instructed Patient to Remain Seated(Not on Exam Table) Until Exam, and Increased Observations by Caregivers PATIENT GENDER DATA: Female. status: : No status: NO. PATIENT RELEVANT IMPLANT DATA REVIEWED: Not Applicable RADIOLOGY DEPARTMENT: Ultrasound PERIPHERAL IV DATA: Not applicable SIGNED BY: Ysabel Abbasi RDMS RVT February 18, 2023 11:06 AM documented in this encounterLutheran Hospital05-09-2023 Miscellaneous Notes* Telephone Encounter - Sangeeta Pritchett LPN - 02/15/2023 7:57 AM EDT [facility] auth# [id number] Patient has been identified by name and date of : Yes Requested Prescriptions Pending Prescriptions Disp Refills lenalidomide (REVLIMID) 5 mg capsule 21 capsule 0 Sig: TAKE 1 CAPSULE BY MOUTH ONCE DAILY FOR 21 DAYS ON AND 7 DAYS OFF RX INSTRUCTIONS: Patient aware RX will be sent to pharmacy. No need to notify patient. Sangeeta Pritchett LPN documented in this encounterLutheran Hospital04-19-2023 History of Present illness Narrative* Kaylee CelestinRT mavis(R) - 01/26/2023 8:15 AM EDT Radiology Service Progress Note DATE OF SERVICE: January 26, 2023 TIME: 9:03 AM PATIENT IDENTITY VERIFICATION COMPLETED USING TWO (2) STANDARD IDENTIFIERS: Name and Date of confirmed by patient verbally. FALL SCREENING: Has the patient had 2 falls in the last year or 1 fall with injury or currently using an Ambulatory Assistive Device (Walker, Cane, Wheelchair, Crutches, etc.)? No PATIENT GENDER DATA: Female. status: : No status: NO. PATIENT RELEVANT IMPLANT DATA REVIEWED: Yes ALLERGIES: Reviewed and unchanged CONTRAST ALLERGY: NO. EXAM: MRI - CONTRAST TYPE: GROUP I OR GROUP III RISK FACTORS: N/A CREATININE: Creatinine Date Value Ref Range Status 12/09/2022 0.78 0.58 - 0.96 mg/dL Final 09/21/2022 0.87 0.58 - 0.96 mg/dL Final 06/29/2022 0.75 0.58 - 0.96 mg/dL Final Estimated Glomerular Filtration Rate Date Value Ref Range Status 12/09/2022 88 >=60 mL/min/1.73m Final Comment: Estimated Glomerular Filtration Rate (eGFR) is calculated using the 2020 CKD-EPI creatinine equation. This equation utilizes serum creatinine, sex, and age as parameters. The creatinine assay has traceable calibration to isotope dilution- mass spectrometry. Refer to KDIGO guidelines for clinical interpretation. In patients with unstable renal function, e.g. those with acute kidney injury, the eGFRmay not accurately reflect actual GFR. eGFR- Date Value Ref Range Status 10/27/2021 >60 Final P.O.C.T. RESULTS: N/A January 26, 2023 TREATMENT: N/A PERIPHERAL IV DATA: Ambulatory: A peripheral IV was started in the Left antecubital site with a Angio cath: 22 gauge. RADIOLOGY DEPARTMENT: MR; Exam(s) Completed: Body: Liver (routine) SIGNATURE: Kaylee Bennett RDMS, RVT- [facility] ([facility]) PATIENT NAME: Alvino Nina DATE: January 26, 2023 TIME: 9:03 AM documented in this encounterLutheran Hospital04-10-2023 Miscellaneous Notes* Telephone Encounter - Sangeeta Pritchett LPN - 01/17/2023 12:01 PM EDT [facility] Auth# [id number] Patient has been identified by name and date of : Yes Requested Prescriptions Pending Prescriptions Disp Refills lenalidomide (REVLIMID) 5 mg capsule 21 capsule 0 Sig: TAKE 1 CAPSULE BY MOUTH ONCE DAILY FOR 21 DAYS ON AND 7 DAYS OFF RX INSTRUCTIONS: Patient aware RX will be sent to pharmacy. No need to notify patient. Sangeeta Pritchett LPN documented in this encounterLutheran Hospital04-03-2023 Miscellaneous Notes* Telephone Encounter - Sangeeta Pritchett LPN - 01/10/2023 2:10 PM EDT spoke with radiology @ [facility], they are faxing copy of Ultrasound done 01/06/2023 Sangeeta Pritchett LPN * Telephone Encounter - iNchole King - 01/10/2023 9:33 AM EDT Patient states she had an Ultrasound completed in [place] and a lesion was found on her liver. Pt is having the results faxed to [phone]. PCP referred her to GI, GI states she should see Onc. She isasking if she should see provider. Please advise. documented in this encounterLutheran Hospital03-22-2023 Miscellaneous Notes* Telephone Encounter - Donna Browne LPN - 12/29/2022 3:25 PM EDT Taken care of in another refill note. Donna Browne LPN * Telephone Encounter - Donna Browne LPN - 12/14/2022 8:37 AM EST Unable to fill out survey until 12/24/22 per fax. Donna Browne LPN * Telephone Encounter - JULIA Tran - 12/14/2022 8:17 AM EST SW received call from pt stating she has 3 pills left and needs Revlimid refill. Thank you, REUBEN Tran documented in this encounterLutheran Hospital03-10-2023 Miscellaneous Notes* Telephone Encounter - Sangeeta Pritchett LPN - 12/17/2022 12:20 PM EST [facility] Auth # [id number] Patient has been identified by name and date of : Yes Requested Prescriptions Pending Prescriptions Disp Refills lenalidomide (REVLIMID) 5 mg capsule 21 capsule 0 Sig: TAKE 1 CAPSULE BY MOUTH ONCE DAILY FOR 21 DAYS ON AND 7 DAYS OFF RX INSTRUCTIONS: Patient aware RX will be sent to pharmacy. No need to notify patient. Sangeeta Pritchett LPN documented in this encounterLutheran Hospital03-07-2023 History of Present illness Narrative* Ghislaine Hutchinson MD - 12/14/2022 10:05 AM EST Images from the original note were not included. SERVICE DATE: December 14, 2022 CHIEF COMPLAINT: Alvino Nina is a 57 year old female returning today for follow up of her multiple myeloma INTERVAL HISTORY: 57-year-old white lady accompanied by her sister for hematologic/oncologic surveillance of her multiple myeloma its IgE kappa presented with multiple compression fractures that required him palliative radiation therapy to involved areas. She achieved remission with RVD then underwent autologous stem cell transplant. She has been on 10 mg maintenance lenalidomide. She stated I do not like it; but when asked about details she emphasized feeling tired mostly. No symptoms of hypocalcemia. No significant peripheral neuropathy Diagnostic Studies: Reviewed CURRENT MEDICATIONS: lenalidomide (REVLIMID) 5 mg capsule^TAKE 1 CAPSULE BY MOUTH ONCE DAILY FOR 21 DAYS ON AND 7 DAYS OFF^Disp: 21 capsule^Rfl: 0 acetaminophen 325 mg cap^Take 500 mg by mouth twice daily.^Disp: ^Rfl: glucosamine HCl/chondroitin brice (GLUCOSAMINE-CHONDROITIN ORAL)^Take 1 capsule by mouth once daily.^Disp: ^Rfl: acyclovir (ZOVIRAX) 400 mg tablet^Take 1 tablet by mouth once daily.^Disp: ^Rfl: OLANZapine (ZYPREXA) 5 mg tablet^Take 5 mg by mouth as needed.^Disp: ^Rfl: aspirin, enteric coated (ASPIRIN, ENTERIC COATED) 81 mg EC tablet^Take 81 mg by mouth once daily.^Disp: ^Rfl: ascorbic acid (VITAMIN C ORAL)^Take 1 tablet by mouth once daily.^Disp: ^Rfl: cholecalciferol, vitamin D3, (VITAMIN D3 ORAL)^Take 1 tablet by mouth once daily.^Disp: ^Rfl: Lactobacillus acidophilus (PROBIOTIC ORAL)^Take 1 tablet by mouth once daily.^Disp: ^Rfl: escitalopram oxalate (LEXAPRO) 20 mg tablet^Take 10 mg by mouth once daily.^Disp: ^Rfl: LORazepam (ATIVAN) 0.5 mg^Take 0.25 mg by mouth three times daily as needed.^Disp: ^Rfl: famotidine (PEPCID) 20 mg tablet^Take 20 mg by mouth once daily. ^Disp: ^Rfl: ALLERGIES/INTOLERANCES: ALLERGIES Allergen Reactions Adhesive Tape (Mariam* Rash Penicillins Hives Other reaction(s): Unknown Vicodin [Hydrocodon* Intolerance Latex Rash Other reaction(s): rash ROS: Feels tired but overall stable with no progressive worsening. No shortness of breath, cough or pleuritic discomfort No dyspnea, orthopnea, paroxysmal nocturnal dyspnea, chest pain, dizziness or lightheadedness No abdominal pain, nausea/vomiting, significant changes of bowel habits, hematochezia or melena No skin rashes or pruritus PHYSICAL EXAM: BP 118/76 Pulse 80 Temp 36.2 C (97.2 F) Ht 156.5 cm (5' 1.61) Wt 96.4 kg (212 lb 8 oz) SpO2 97% BMI 39.36 kg/m2 Body mass index is 39.36 kg/m . ECO No lymphadenopathy No palpable masses Lungs are clear to auscultation percussion No JVD of 3 years for No hepatosplenomegaly No peripheral edema DATA REVIEW: I personally reviewed the patient's data and medical records. PERTINENT LABS: Reviewed PERTINENT IMAGING: Reviewed ASSESSMENT AND Plan Multiple myeloma in complete remission. She is not really considered high risk. However, could thatthere was some aggressive behavior at presentation. Regardless maintenance is recommended to be at least 2 years which in itself is a vague recommendation. We had a compassionate and comprehensive conversation about this based mostly on very extensive experience. Probably complete 3 years at 10 mg is doable. Following that she should balance benefits versus risk specially higher incidence of second malignancy mostly skin. In many patients I extended the maintenance to 5 mg which obviously can be tried if she continues with side effects from the 10 mg after completion of 3 years. I also recommend to continue Zometa as scheduled The patient was able to ask questions and these were answered in detail. Ghislaine Hutchinson MD cc: Dayana Gambino MD documented in this encounterLutheran Hospital02-17-2023 Miscellaneous Notes* Telephone Encounter - Katie Vega LPN - 11/26/2022 10:21 AM EST Please resend Rx to [facility]. Katie Vega LPN documented in this encounterLutheran Hospital02-08-2023 Miscellaneous Notes* Telephone Encounter - Katie Vega LPN - 11/17/2022 9:49 AM EST [facility] authorization #[id number]. Please send electronically. Katie Vega LPN documented in this encounterLutheran Hospital01-17-2023 Miscellaneous Notes* Telephone Encounter - Dayana Stewart MD - 10/26/2022 1:32 PM EST Patient's request for medication is as follows Requested Prescriptions Signed Prescriptions Disp Refills lenalidomide (REVLIMID) 5 mg capsule 21 capsule 0 Sig: TAKE 1 CAPSULE BY MOUTH ONCE DAILY FOR 21 DAYS ON AND 7 DAYS OFF Authorizing Provider: DAYANA STEWART Order entered - please phone pharmacy and notify patient. Dayana Stewart MD * Telephone Encounter - Sangeeta Pritchett LPN - 10/26/2022 1:26 PM EST [employer] Auth # [id number] Rx given to our social science research assistant [place] to be sent to pharmacy for free medication. Sangeeta Pritchett LPN documented in this encounterLutheran Hospital12-20-2022 Miscellaneous Notes* Telephone Encounter - Katie Vega LPN - 09/28/2022 2:37 PM EST Patient notified and verbalized understanding. Katie Vega LPN * Telephone Encounter - Dayana Stewart MD - 09/28/2022 2:30 PM EST Please notify patient that her skeletal survey looks stable. No M protein. She is still in complete remission. Continue Revlimid maintenance. Dayana Stewart MD documented in this encounterLutheran Hospital12-16-2022 History of Present illness Narrative* Jazmín Ferguson, RT(R) - 09/24/2022 11:00 AM EST Radiology Service Progress Note PATIENT NAME: Alvino Nina DATE OF SERVICE: September 24, 2022 TIME: 11:40 AM PATIENT IDENTITY VERIFICATION COMPLETED USING TWO (2) IDENTIFIERS: Name and Date of confirmedby patient verbally. FALL SCREENING: Has the patient had 2 falls in the last year or 1 fall with injury or currently using an Ambulatory Assistive Device (Walker, Cane, Wheelchair, Crutches, etc.)? Yes, Patient High Riskfor Falls What interventions were put in place to prevent falls during this visit? [place] Risk Wristband Applied, Instructed Patient to Call for Help if Needed, Offered Assistance with Transfers/Clothing, Instructed Patient to Remain Seated (Not on Exam Table) Until Exam, and Increased Observations by Caregivers PATIENT GENDER DATA: Female. status: : No status: NO. PATIENT RELEVANT IMPLANT DATA REVIEWED: Not Applicable RADIOLOGY DEPARTMENT: General X-ray: Exam(s) Completed: Bone Survey PERIPHERAL IV DATA: Not applicable SIGNED BY: RT Kai(Teresa) September 24, 2022 11:40 AM documented in this encounterLutheran Hospital12-15-2022 Miscellaneous Notes* Telephone Encounter - JULIA Tran - 09/23/2022 2:25 PM EST [facility] met with pt and obtained her signature on the 2022 application for continued Revlimid assistancefrom [employer] had physician review and sign. [facility] successfully faxed application and new paper prescription to [facility] this date and sent all originals to internal scanning. JULIA Tran-S documented in this encounterLutheran Hospital12-13-2022 History of Present illness Narrative* Dayana Stewart MD - 09/21/2022 8:59 AM EST PATIENT NAME: Alvino Nina. CLINIC NO: [id number]. ATTENDING PHYSICIAN: Dayana Stewart MD. DATE OF SERVICE: 09/21/2022 DIAGNOSIS: Multiple myeloma (IgA kappa / light chain subtype) in complete remission. -Multiple compression fractures ( @ T11, L1 & sacrum ) s/p radiation therapy to involved area. 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 HPI: 57-year-old female with history of acute lower back pain summer 2019. Lower back pain has gotten a lot worse over the last several weeks. She has a history of stage I pT1a, Nx renal (clear cell)carcinoma status post right partial nephrectomy 8 years ago. She has been free of disease. Her initial evaluation included MRI scan lumbar spine without contrast showed an acute mild compression fracture at superior end plate of L5. Spinal stenosis at L4 to L5. 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 She continues to have significant pain in her lower back which limited her movement and daily activity. She was on morphine, oxycodone and [place] which causes significant nausea. She is currently on Tylenol, Flexeril and buprenorphine and she still has significant lower back pain. A follow-up MRI scan of the thoracic spine on 06/09/20 also showed acute moderate wedge compression fracture at T11 without obvious protrusion into the spinal canal. There were noobvious lytic lesions or marrow infiltrations in her thoracic or lumbar spine. Previous induction treatment: RvD - lenalidomide, bortezomib, dexamethasone (CR) Maintenance therapy: Lenalidomide & Zometa Interim history: She is feeling well. She has no fever, chills and no sign of cellulitis. No increased new bone pain except for chronic lower back pain from multiple compression fractures. She has nosensory deficit, bowel or urinary incontinent. She has frequent nausea with Revlimid. She denies cough, chest pain or shortness of breath. She hasno jaw pain or dental problems. No bleeding or bruising. She denies urinary symptoms, frequency or dysuria. Her weight and appetite is stable. REVIEW OF SYSTEMS: CONSTITUTIONAL: No fevers, chills, nightsweats, unintended weight loss HEENT: Denies frequent or severe heaches, nasal congestion/sinus symptoms, problematic allergy problems. EYES: No diplopia or blurry vision. CARDIOVASCULAR: No chest pain, dyspnea, palpitations, orthopnea, PND, ankle edema. PULM: No dyspnea, unexplained cough. GI: No dysphagia/odynophagia, problematic reflux, constipation, diarrhea, changes in stool habits, hematochezia, melena. : No new urinary complaints, including dysuria, gross hematuria or pyuria. NEURO: No new balance problems, peripheral weakness/paresthesias or numbness of concern. MUSC-SKEL: No new joint pain, swelling, or erythema. PSY: No concerns regarding depression, anxiety or panic. INTEGUMENTARY: No new skin changes (rash, new or changing mole, new growth) PHYSICAL EXAMINATION: 57-year-old well-nourished well-developed female in no acute distress Performance status 80% BP 117/79 Pulse 77 Temp 97.5 Wt 203 lb 8 oz (92.3kg) SpO2 96% HEENT: Head is normocephalic, atraumatic. Sclerae white, conjunctivae pink. PEERL. EOMs are intact.Oropharynx is benign. LYMPHATICS: There is no palpable adenopathy in the neck, supraclavicular region, axillae, or groin. LUNGS: Lungs are clear to percussion and auscultation. HEART: Heart is normal without murmurs, gallops, or rubs. ABDOMEN: Soft and nontender without organomegaly. No masses can be palpated. BACK: Kyphosis in the upper thoracic spine EXTREMITIES: Are no edema. NEUROLOGIC: Exam is physiologic, deep tendon reflexes symmetrical No lower extremity weakness. No sensory deficits. LABORATORY DATA: Component Latest Ref Rng & Units 09/21/2022 WBC 3.70 - 11.00 k/uL 5.07 RBC 3.90 - 5.20 m/uL 4.00 Hemoglobin 11.5 - 15.5 g/dL 12.6 Hematocrit 36.0 - 46.0 % 36.8 MCV 80.0 - 100.0 fL 92.0 MCH 26.0 - 34.0 pg 31.5 MCHC 30.5 - 36.0 g/dL 34.2 RDW-CV 11.5 - 15.0 % 11.6 Platelet Count 150 - 400 k/uL 193 MPV 9.0 - 12.7 fL 9.0 Neut% % 65.1 Abs Neut (ANC) 1.45 - 7.50 k/uL 3.30 Lymph% % 17.6 Abs Lymph 1.00 - 4.00 k/uL 0.89 (L) [place]% % 11.4 Abs [place] <0.87 k/uL 0.58 Eosin% % 3.9 Abs Eosin <0.46 k/uL 0.20 Baso% % 0.8 Abs Baso <0.11 k/uL 0.04 Immature Gran % % 1.2 IMMATURE GRANS (ABS) <0.10 k/uL 0.06 NRBC /100 WBC 0.0 Absolute nRBC <0.01 k/uL <0.01 DTYPE Auto Component Latest Ref Rng & Units 09/21/2022 Protein, Total 6.3 - 8.0 g/dL 6.7 Albumin 3.9 - 4.9 g/dL 4.4 Calcium 8.5 - 10.2 mg/dL 9.3 Bilirubin, Total 0.2 - 1.3 mg/dL 0.2 Alkaline Phosphatase 34 - 123 U/L 82 AST 13 - 35 U/L 20 ALT 7 - 38 U/L 26 Glucose 74 - 99 mg/dL 106 (H) BUN 7 - 21 mg/dL 20 Creatinine 0.58 - 0.96 mg/dL 0.87 Sodium 136 - 144 mmol/L 137 Potassium 3.7 - 5.1 mmol/L 3.6 (L) Chloride 97 - 105 mmol/L 101 CO2 22 - 30 mmol/L 27 Anion Gap 9 - 18 mmol/L 9 eGFR >=60 mL/min/1.73m 77 LD 135 - 214 U/L 217 (H) Phosphorus 2.7 - 4.8 mg/dL 3.4 Uric Acid 2.5 - 6.6 mg/dL 3.6 ASSESSMENT/PLAN: 55-year-old female with multiple myeloma, ISS Stage 1, [place] Stage 2. IgA kappa light chain subtype. 1. Multiple myeloma - Status post autologous bone marrow transplant on 01/15/21; LENIN. - Serum and urine M protein 0.0 & normal serum kappa /lambda light chains. K/L ratio is normal - Anemia resolved. Plan: -Continue lenalidomide 5 mg day 1-21, every 28 days and aspirin 81mg once daily (probably long-termbecause of the aggressive nature of her multiple myeloma on presentation) -Continue Zometa to every 3 months. -Repeat CBC, myeloma panel and 24-hour urine UPEP and immunofixation office visit in 3 months. 2. Acquired hypogammaglobulinemia -Improving Plan: -Continue acyclovir 400mg twice daily until she is vaccinated with Shingrix vaccine next spring. 3. Chronic pain of the thoracic & lumbar spine secondary to multiple compression fractures. -No focal neurological symptoms. -No new areas of unexplained pain Plan: -No surgical intervention -Exercise and stretching /strengthening of her back may improve symptoms -Repeat skeletal survey for evaluation this week. -Follow-up with Dr. Tiera Miles regarding chronic pain management I spent 30 minutes in the visit, with more than 50% of the total oinp-or-fbzo time of the visit in counseling / coordination of care. Portions of this documentation were copied and pasted from previous office visit notes in order to provide a cohesive continuity of the history. The note has been reviewed and edited and updated as necessary. Dayana Stewart MD Cc: Dr. Tiera Miles, [facility] Campusstephany Gambino MD documented in this encounterLutheran Hospital12-13-2022 Miscellaneous Notes* Telephone Encounter - JULIA Tran - 09/21/2022 8:15 AM EST [facility] successfully faxed this prescription to [facility] on 09/17 and sent to internal scanning. [facility] also called and updated pt on status and also inquired for her to come in and sign the application to be submitted for her 2022 renewal. [employer] left detailed voicemail with direct call-back number. REUBEN Tran * Telephone Encounter - JULIA Tran - 09/17/2022 11:14 AM EST I spoke with Katie who needs to obtain authorization before we can send this script. Please hold off until it is obtained, I will notify you. Sorry for the confusion! REUBEN Tran * Telephone Encounter - JULIA Tran - 09/17/2022 10:[address] Stewart, Can you please print a prescription for pt's Revlimid with refills for one year? This is for her patient assitsance program. Thank you! JULIA Tran-S documented in this encounterL[facility]12-[facility]-2022 Miscellaneous Notes* Telephone Encounter - Dayana Stewart MD - 09/17/2022 12:00 PM EST Patient's request for medication is as follows Requested Prescriptions Signed Prescriptions Disp Refills lenalidomide (REVLIMID) 5 mg capsule 21 capsule 0 Sig: TAKE 1 CAPSULE BY MOUTH ONCE DAILY FOR 21 DAYS ON AND 7 DAYS OFF Authorizing Provider: DAYANA STEWART Order entered - please phone pharmacy and notify patient. Dayana Stewart MD * Telephone Encounter - Katie Vega LPN - 09/17/2022 11:26 AM EST Please print Rx for SW. Katie Vega LPN documented in this [facility]11-10-2022 Miscellaneous Notes* Telephone Encounter - Katie Vega LPN - 08/19/2022 10:28 AM EST FYI- due to insurance issues and need for patient assistance, patient has not received this cycle of Revlimid that was due to begin 08/17/2022. Awaiting approval form [facility]. Katie Vega LPN documented in this [facility]10-25-2022 Miscellaneous Notes* Telephone Encounter - Dayana Stewart MD - 08/03/2022 8:06 AM EDT Patient's request for medication is as follows Requested Prescriptions Signed Prescriptions Disp Refills lenalidomide (REVLIMID) 5 mg capsule 21 capsule 0 Sig: TAKE 1 CAPSULE BY MOUTH ONCE DAILY FOR 21 DAYS ON AND 7 DAYS OFF Authorizing Provider: DAYANA STEWART Order entered - please phone pharmacy and notify patient. Dayana Stewart MD * Telephone Encounter - Katie Vega LPN - 08/03/2022 7:44 AM EDT [employer] auth# [id number]. Please send electronically. Katie Vega LPN documented in this encounterLuther[facility]09-23-2022 Miscellaneous Notes* Telephone Encounter - Saba Roa APRN.CNP - 07/02/2022 1:44 PM EDT Noted. Saba Roa APRN.CNP * Telephone Encounter - Donna Browne LPN - 07/02/2022 12:25 PM EDT Pt calls stating she was seen by Saba Roa on 06/29/22 and was asked about weight gain or loss. She states she does note weight change when she is [place] [facility] through her Revlimid cycle she notes weight gain. I asked if she has swelling and she said she only notices it around her abd. She says during this time she feels uncomfortable. She says takes a water pill. Donna Browne LPN documented in this encounterLuther[facility]09-20-2022 Miscellaneous Notes* Telephone Encounter - Saba Roa APRN.CNP - 06/29/2022 11:12 AM EDT Done. Saba Roa APRN.CNP * Telephone Encounter - Sangeeta Pritchett LPN - 06/29/2022 9:29 AM EDT Please sign orders, pt. Returned her 24 hour urine and order had . Sangeeta Pritchett LPN documented in this encounterLuther[facility] Hospital09-20-2022 Miscellaneous Notes* Telephone Encounter - Sangeeta Pritchett LPN - 06/29/2022 10:11 AM EDT Patient has been identified by name and date of : Yes Requested Prescriptions Pending Prescriptions Disp Refills lenalidomide (REVLIMID) 5 mg capsule [Pharmacy Med Name: REVLIMID 5MG] 0 Sig: TAKE 1 CAPSULE BY MOUTH ONCE DAILY FOR 21 DAYS ON AND 7 DAYS OFF RX INSTRUCTIONS: Patient aware RX will be sent to pharmacy. No need to notify patient. Sangeeta Pritchett LPN documented in this encounterLutheran Hospital08-02-2022 Miscellaneous Notes* Telephone Encounter - Dayana Stewart MD - 05/11/2022 9:15 AM EDT Patient's request for medication is as follows Signed Prescriptions Disp Refills lenalidomide (REVLIMID) 5 mg capsule 21 capsule 0 Sig: TAKE 1 CAPSULE BY MOUTH 1 TIME A DAY FOR 21 DAYS ON THEN 7 DAYS OFF JANE: No Authorizing Provider: DAYANA STEWART Order entered - please phone pharmacy and notify patient. Dayana Stewart MD * Telephone Encounter - Sangeeta Pritchett LPN - 05/11/2022 8:49 AM EDT CH4e auth # [id number] Patient has been identified by name and date of : Yes Pending Prescriptions Disp Refills LENALIDOMIDE 5 MG CAPSULE 21 capsule 0 Sig: TAKE 1 CAPSULE BY MOUTH 1 TIME A DAY FOR 21 DAYS ON THEN 7 DAYS OFF JANE: No RX INSTRUCTIONS: Patient aware RX will be sent to pharmacy. No need to notify patient. Sangeeta Pritchett LPN * Telephone Encounter - Katie Vega LPN - 05/10/2022 8:12 AM EDT Last dispensed 04/20/2022. Unable to obtain [employer] auth # yet. Katie Vega LPN * Telephone Encounter - Sangeeta Pritchett LPN - 05/07/2022 1:43 PM EDT Unable to get authorization until 05/10 Sangeeta Pritchett LPN documented in this encounterLuther[facility] Hospital07-12-2022 Miscellaneous Notes* Telephone Encounter - Katie Vega LPN - 04/20/2022 4:06 PM EDT Patient instructed to begin Revlimid when she receives and follow up as scheduled. Dr. Stewart is aware. Katie Vega LPN * Telephone Encounter - Carri Julian Pss - 04/20/2022 3:50 PM EDT Patient states her Revlimid was lost in the mail and she will not get it until at last sometime next week. Which will then be a full two weeks on the medication. Wondering if she needs to do anythingbecause of this. Please advise. documented in this encounterLutheran Hospital06-29-2022 Miscellaneous Notes* Telephone Encounter - Heather Cuevas RN - 04/07/2022 10:20 AM EDT Patient informed of Dr. Stewart's response, stated understanding. Heather Cuevas RN * Telephone Encounter - Dayana Stewart MD - 04/07/2022 10:14 AM EDT YES. She may discontinue dexamethasone. Dayana Stewart MD * Telephone Encounter - Heather Cuevas RN - 04/07/2022 10:06 AM EDT Patient called today stating she is supposed to take the decadron 4 mg today but she does not want to take it d/t the steroid causing sleep disturbances. Patient stated last week she had difficulty sleeping for 3-4 nights after taking decadron. Patient is asking if the decadron dose can be lowered or discontinued. Heather Cuevas RN documented in this encounterLutheran Hospital06-13-2022 Miscellaneous Notes* Telephone Encounter - Jo-Ann Gilbert RN - 03/22/2022 1:39 PM EDT Left message on personalized VM stating below. * Telephone Encounter - Dayana Stewart MD - 03/22/2022 1:35 PM EDT Please notify patient that her M protein is still undetectable. She is still in complete remission. Continue maintenance Revlimid Dayana Stewart MD documented in this encounterLutheran Hospital06-09-2022 History of Present illness Narrative* Dayana Stewart MD - 03/18/2022 3:26 PM EDT PATIENT NAME: Alvino Jacksonkiewicz. CLINIC NO: [id number]. ATTENDING PHYSICIAN: Dayana Stewart MD. DATE OF SERVICE: 03/18/2022 DIAGNOSIS: Multiple myeloma (IgA kappa / light chain subtype) in complete remission. 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 HPI: 56-year-old female with history of acute lower back pain starting this summer. Lower back painhas gotten a lot worse over the last several weeks. She has a history of stage I pT1a, Nx renal (clear cell) carcinoma status post right partial nephrectomy 8 years ago. She has been free of disease and was low by Dr. Herbert. Her initial evaluation included MRI scan lumbar spine without contrast showed an acute mild compression fracture at superior end plate of L5. Spinal stenosis at L4 to L5. 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 She continues to have significant pain in her lower back which limited her movement and daily activity. She was on morphine, oxycodone and [place] which causes significant nausea. She is currently on Tylenol, Flexeril and buprenorphine and she still has significant lower back pain. A follow-up MRI scan of the thoracic spine on 06/09/20 also showed acute moderate wedge compression fracture at T11 without obvious protrusion into the spinal canal. There were noobvious lytic lesions or marrow infiltrations in her thoracic or lumbar spine. Previous treatment: RvD - lenalidomide, bortezomib, dexamethasone (CR) Maintenance therapy: Lenalidomide & Zometa Interim history: She is feeling well. She has no fever, chills and no sign of cellulitis. No increased new bone pain except for chronic lower back pain from compression fractures. She resume acyclovir after having problem with shingles this year. She denies cough, chest pain or shortness of breath. She has no jaw pain or dental problems. No bleeding or bruising. She denies urinary symptoms, frequency or dysuria. Her weight and appetite is fine. She is continuing with post transplant vaccinations. REVIEW OF SYSTEMS: CONSTITUTIONAL: No fevers, chills, nightsweats, unintended weight loss HEENT: Denies frequent or severe heaches, nasal congestion/sinus symptoms, problematic allergy problems. EYES: No diplopia or blurry vision. CARDIOVASCULAR: No chest pain, dyspnea, palpitations, orthopnea, PND, ankle edema. PULM: No dyspnea, unexplained cough. GI: No dysphagia/odynophagia, problematic reflux, constipation, diarrhea, changes in stool habits, hematochezia, melena. : No new urinary complaints, including dysuria, gross hematuria or pyuria. NEURO: No new balance problems, peripheral weakness/paresthesias or numbness of concern. MUSC-SKEL: No new joint pain, swelling, or erythema. PSY: No concerns regarding depression, anxiety or panic. INTEGUMENTARY: No new skin changes (rash, new or changing mole, new growth) PHYSICAL EXAMINATION: 56-year-old well-nourished well-developed female in no acute distress Performance status 80% Temp 97.9 Wt 178 lb 8 oz (81.0kg) BP 126/69 HEENT: Head is normocephalic, atraumatic. Sclerae white, conjunctivae pink. PEERL. EOMs are intact.Oropharynx is benign. LYMPHATICS: There is no palpable adenopathy in the neck, supraclavicular region, axillae, or groin. LUNGS: Lungs are clear to percussion and auscultation. HEART: Heart is normal without murmurs, gallops, or rubs. ABDOMEN: Soft and nontender without organomegaly. No masses can be palpated. BACK: Kyphosis in the upper thoracic spine EXTREMITIES: Are no edema. NEUROLOGIC: Exam is physiologic, deep tendon reflexes symmetrical No lower extremity weakness. No sensory deficits. LABORATORY DATA: Component Latest Ref Rng & Units 03/18/2022 WBC 3.70 - 11.00 k/uL 4.61 RBC 3.90 - 5.20 m/uL 3.77 (L) Hemoglobin 11.5 - 15.5 g/dL 12.1 Hematocrit 36.0 - 46.0 % 35.4 (L) MCV 80.0 - 100.0 fL 93.9 MCH 26.0 - 34.0 pg 32.1 MCHC 30.5 - 36.0 g/dL 34.2 RDW-CV 11.5 - 15.0 % 11.9 Platelet Count 150 - 400 k/uL 177 MPV 9.0 - 12.7 fL 8.7 (L) Neut% % 56.1 Abs Neut (ANC) 1.45 - 7.50 k/uL 2.58 Lymph% % 26.2 Abs Lymph 1.00 - 4.00 k/uL 1.21 [place]% % 12.8 Abs [place] <0.87 k/uL 0.59 Eosin% % 3.0 Abs Eosin <0.46 k/uL 0.14 Baso% % 1.5 Abs Baso <0.11 k/uL 0.07 Immature Gran % % 0.4 IMMATURE GRANS (ABS) <0.10 k/uL <0.03 NRBC /100 WBC 0.0 Absolute nRBC <0.01 k/uL <0.01 DTYPE Auto Component Latest Ref Rng & Units 03/18/2022 Protein, Total 6.3 - 8.0 g/dL 6.3 Albumin 3.9 - 4.9 g/dL 4.1 Calcium 8.5 - 10.2 mg/dL 9.2 Bilirubin, Total 0.2 - 1.3 mg/dL 0.4 Alkaline Phosphatase 34 - 123 U/L 69 AST 13 - 35 U/L 31 ALT 7 - 38 U/L 47 (H) Glucose 74 - 99 mg/dL 81 BUN 7 - 21 mg/dL 22 (H) Creatinine 0.58 - 0.96 mg/dL 0.85 Sodium 136 - 144 mmol/L 139 Potassium 3.7 - 5.1 mmol/L 3.8 Chloride 97 - 105 mmol/L 103 CO2 22 - 30 mmol/L 27 Anion Gap 9 - 18 mmol/L 9 eGFR >=60 mL/min/1.73m 80 Normalized CAlcium 1.08 - 1.30 mmol/L 1.21 Ionized Calcium 1.08 - 1.30 mmol/L 1.21 B2 Microglobulin 0.8 - 2.4 mg/L 1.6 LD 135 - 214 U/L 183 Phosphorus 2.7 - 4.8 mg/dL 3.9 Component Latest Ref Rng & Units 03/18/2022 IgG 700-1,600 mg/dL 513 (L) IgA 70 - 400 mg/dL 59 (L) IgM 40 - 230 mg/dL 17 (L) ASSESSMENT/PLAN: 55-year-old female with multiple myeloma, ISS Stage 1, [place] Stage 2. IgA kappa light chain subtype 1. 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 - Serum and urine M protein 0.0 & normal serum kappa /lambda light chains. K/L ratio is normal - Anemia resolved. Plan: -Continue lenalidomide 5 mg day 1-21, every 28 days and aspirin 81mg once daily -Continue Dexamethasone 4 mg weekly -Continue Zometa to every 3 months. -Monitor CBC and BMP monthly x 3 -Repeat CBC, myeloma panel and 24-hour urine UPEP and immunofixation office visit in 3 months. 2. Acquired hypogammaglobulinemia -Recent Herpetic infection Plan: -Continue acyclovir 400mg twice daily until she is vaccinated. 3. Chronic pain of the thoracic & lumbar spine secondary to multiple compression fractures. -No focal neurological symptoms. Plan: -No surgical intervention -Exercise and stretching /strengthening of her back may improve symptoms -Follow-up with Dr. Tiera Miles regarding chronic pain management Portions of this documentation were copied and pasted from previous office visit notes in order to provide a cohesive continuity of the history. The note has been reviewed and edited and updated as necessary. Dayana Stewart MD Cc: Dr. Tiera Miles, [facility] Pia Gambino MD documented in this encounterLutheran Hospital06-09-2022 Nurse Note* Sangeeta Pritchett LPN - 03/18/2022 2:57 PM EDT Est. Pt. Discuss recent labs, Zometa today Sangeeta Pritchett LPN * Sangeeta Pritchett LPN - 03/18/2022 2:57 PM EDT Est. Pt. Discuss recent labs, Zometa today Sangeeta Pritchett LPN documented in this encounterLutheran Hospital05-27-2022 Miscellaneous Notes* Telephone Encounter - Dayana Stewart MD - 03/05/2022 10:40 AM EDT Patient's request for medication is as follows Signed Prescriptions Disp Refills lenalidomide (REVLIMID) 5 mg capsule 21 capsule 0 Sig: TAKE 1 CAPSULE BY MOUTH ONCE DAILY FOR 21 DAYS ON THEN 7 DAYS OFF JANE: No Authorizing Provider: DAYANA STEWART Order entered - please phone pharmacy and notify patient. Dayana Stewart MD * Telephone Encounter - Katie Vega LPN - 03/05/2022 10:06 AM EDT CH4e auth #[id number]. Please send electronically. Katie Vega LPN documented in this encounterLutheran Hospital05-16-2022 Miscellaneous Notes* Telephone Encounter - Katie Vega LPN - 02/22/2022 8:26 AM EDT Patient notified. Katie Vega LPN * Telephone Encounter - Katie Vega LPN - 02/22/2022 8:26 AM EDT Images from the original note were not included. Jose Robert, [facility] You 45 minutes ago (7:40 AM) JR No interactions found * Telephone Encounter - Katie Vega LPN - 02/19/2022 4:25 PM EDT Primo, this is OTC. Any interactions? Katie Vega LPN * Telephone Encounter - Dayana Stewart MD - 02/19/2022 3:35 PM EDT YES. Please go over with pharmacist? Dayana Stewart MD * Telephone Encounter - Lawanda Ray - 02/19/2022 2:00 PM EDT Pt would like to know if Dr. Stewart would approve of her taking a supplement called Triple Strength Glucosamine Chondroitin 1500mg/1200mg 1 time daily. documented in this encounterLutheran Hospital04-28-2022 Miscellaneous Notes* Telephone Encounter - Katie Vega LPN - 02/04/2022 8:17 AM EDT CH4e auth #[id number]. Please send electronically. Katie Vega LPN documented in this encounterLutheran Hospital04-15-2022 Miscellaneous Notes* Telephone Encounter - Sangeeta Pritchett LPN - 01/22/2022 3:06 PM EDT Pt. Notified, ok to mow her lawn. Sangeeta Pritchett LPN * Telephone Encounter - Dayana Stewart MD - 01/22/2022 3:00 PM EDT YES. Dayana Stewart MD * Telephone Encounter - Dona King - 01/22/2022 2:15 PM EDT Patient called, asking if she can mow her yard with a riding lawnmower, please advise [phone] Thank you Dona King documented in this encounterLutheran Hospital04-07-2022 Miscellaneous Notes* Telephone Encounter - Katie Vega LPN - 01/14/2022 4:56 PM EDT Letter mailed. Patient notified. Katie Vega LPN * Telephone Encounter - Dayana Stewart MD - 01/14/2022 4:33 PM EDT Please print letter for patient for [employer]. Dayana Stewart MD * Telephone Encounter - Tamiko Valente Pss - 01/14/2022 2:22 PM EDT Patient is calling for a new script for her handicap marker. Please advise patient if that could bemailed to her. documented in this encounterLutheran Hospital03-29-2022 History of Present illness Narrative* Florida Garcia, PT - 01/05/2022 12:05 PM EDT Episode Visit Count: 5 Therapist That Will Oversee The Plan Of Care: Florida Garcia Start of Care Date: 07/27/21 Onset Date: 01/25/21 (progressively worse and more frequent) Patient Identified by Name and Date of : Yes REHABILITATION AND SPORTS THERAPY PHYSICAL THERAPY DISCONTINUANCE OF CARE PLAN OF CARE UPDATE: Assessment: Alvino Nina is discontinued from Physical Therapy services due to maximal benefit. and Patient/Clinician mutual decision to discontinue current plan of care.. Patient was seen for5 visits from Start of Care Date: 07/27/21 to 01/08/2022 and treatment included: Therapeutic exercise, Neuromuscular re-education, Manual therapy, Self-half-way management and Patient/Family/CaregiverEducation. 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 She was progressing well with vestibular rehab until recent URI (also with shingles and on new meds--? Side effect tomeds) and dizziness has increased. She still tolerates movement better than initially. Patient has HEP for continued balance and VOR work. She demonstrated mild sway on Biodex even on compliant surface this date. Goals for Episode of Care: UPDATED 01/05/22: created on 07/27/21 through 09/07/21, extension of POC to 01/15/2022. Patient will be independent with home exercise program and progression: met: provided additional exand reviewed current program. Pt acknowledges understanding. Patient will return to prior level of function with all activities of daily living with trace reports of dizziness.: Not met, generally dizziness is mild with recent exacerbation to moderate levels (5/10). She is able to complete all ADLs/IADLs but still has dizziness. Patient will deny dizziness with bending, driving and turning head to the left: Partially met: No issues with driving and no increase in symptoms with bending or turning head. Recent URI has increased resting dizziness. Patient Goals: eliminate dizziness and increase stability: Partially MET: Overall stability is improved. Dizziness had improved but now with set back with recent URI, ? Side effect to shingles meds. SUBJECTIVE: Patient Reason for Visit: since last seen patient came down with shingles on the L LB and hip and an URI. Dizziness has been worse. Currently at rest 5/10. Dizziness got so bad she was off balance and nearly falling. Was put on anti-dizzy meds made her very tired. Balance feels ok today. Has been able to drive and denies issues with bending over and able to complete her ADLs. Dizziness has quieted compared to recent flare up. Patient feels content to continue to work on HEP. Vestibular Description: off sensation;light headed (internal movement sensations) Rating of current symptoms: 5/10 Frequency: Constant and increases with activity Pain: Pain Pain Level: (unrelated chronic LBP, shingles/nerve pain. Pt did not rate.) Post Treatment Pain Post Treatment Pain Level: No Change Post Treatment Symptoms: dizziness remains the same PROMIS Scales Higher is Better 02/03/2021 03/03/2021 06/15/2021 Phys Func - Score 33 (moderate dysfunction) 27 (severe dysfunction) 33 (moderate dysfunction) Phys Func - Percentile 4 % 1 % 4 % Social Roles - Score 32 (moderate dysfunction) 36 (moderate dysfunction) 40 (mild dysfunction) Social Role - Percentile 4 % 8 % 16 % GH Physical - Score 32.4 - 34.9 (Poor) GH Physical - Percentile 4 % - 7 % GH Mental - Score 45.8 - 33.8 (Fair) GH Mental - Percentile 34 % - 5 % Self-Eff Symptom - Score - - 44 (Average) Self-Eff Symptom - Percentile - - 27 % T-scores: mean of general population = 50. 5 points is clinically meaningfully difference Percentiles provide an indication of how the patient's score ranks in relation to the general population. Higher percentile rankings indicate better function/quality of life. 50th percentile is the average of the general population and indicates half of respondents had a worse score. Lower is Better 02/03/2021 03/03/2021 06/15/2021 Fatigue - Score 57 (mild) 52 (within normal limits) 66 (moderate) Fatigue - Percentile 24 % 42 % 5 % T-scores: mean of general population = 50. 5 points is clinically meaningfully difference Percentiles provide an indication of how the patient's score ranks in relation to the general population. Higher percentile rankings indicate better function/quality of life. 50th percentile is the average of the general population and indicates half of respondents had a worse score. OBJECTIVE MEASURES WITH LEVEL OF FUNCTION: Posture / Alignment Posture: Forward head;Increased thoracic kyphosis;Rounded shoulders Mobility Sit To Stand: Independent Stand To Sit: Independent Bed To Chair: Independent Gait Gait: Modified Independent Gait Distance (feet): ad anh Gait Device: Rollator Gait Observation: WFL pattern and melissa. Limited standing ability due to back pain. TREATMENT: Neuromuscular Re-Education: 1: Biodex: posture stability: EO, EC, head movement vertical and horizontal with EO and EC x 10 reps each x 3 sets each. Repeated on foam: EO and EC and head movements, all 10 reps head movement/10 sec EC intervals. 2: standing VORc vertical 10 reps x 1, horizontal 10 reps x 3 3: *imagined target horizontal: self directed speed 4: remembered target x 10 rep x 3 sets horizontal, one set vertical 5: reinforced VOR performance and compliant surfaces for more vestibular challenge 6: education on compensated and decompensated states and future illness may provoke symptoms. Reviewed expected progression of symptoms Skilled Intervention: Skilled judgment used to assess appropriate program for balance and coordination activity. Education in proprioceptive/kinesthetic awareness during standing and balance activities. Insured patient safety with use of proper guarding Reviewed and educated patient on additions/changes for home program as noted above with an (*). Provided written instruction for home program to facilitate proper performance and compliance. Correct performance of home program was facilitated with verbal and visual cueing. Patient education as noted. Billing Neuromuscular Re-Education Treatment Minutes: 58 Total Treatment Time Minutes (timed and untimed codes) : 61 Florida Garcia PT documented in this encounterLutheran Hospital04-18-2021 History of Past illness Narrative* Problem Noted Date Resolved Date Sepsis 01/25/2021 02/05/2021 Overview: 01/24: Febrile, TMax 38.6, tachycardia. Pancultured 01/25: +GPC reported x2 lumens of TLH. + streptococcus Plan: Sensitivities pending Currently on cefepime (01/24-*). Repeat BC NGTD ID consulted for treatment recs Neutropenic fever 01/24/2021 02/05/2021 Overview: 01/24 1500 patient with first neutropenic fever Plan; - see streptococcal bacteremia - Cefepime (01/24-*) Acute esophagitis 01/22/2021 02/05/2021 Overview: starting with throat pain Plan: - pall med following - 01/26 ORCHARD HAND discontinued and home pain meds continued Continues to improve; meds to PO 01/27 Swelling of right hand 01/14/2021 Overview: Patient states noticing hand swelling AM of 01/14. Denies similar swelling in hands previously. Was receiving lasix prior to admission for LE edema Improved Plan: Duplex US negative Lasix 20mg PRN 01/23: today with non-itching discoloration of top of hand; will continue monitoring documented as of this encounter (statuses as of 01/08/2022) [facility] of Past illness Narrative* Problem Noted Date Resolved Date Sepsis 01/25/2021 02/05/2021 Overview: 01/24: Febrile, TMax 38.6, tachycardia. Pancultured 01/25: +GPC reported x2 lumens of TLH. + streptococcus Plan: Sensitivities pending Currently on cefepime (01/24-*). Repeat BC NGTD ID consulted for treatment recs Neutropenic fever 01/24/2021 02/05/2021 Overview: 01/24 1500 patient with first neutropenic fever Plan; - see streptococcal bacteremia - Cefepime (01/24-*) Acute esophagitis 01/22/2021 02/05/2021 Overview: starting with throat pain Plan: - pall med following - 01/26 ORCHARD HAND discontinued and home pain meds continued Continues to improve; meds to PO 20 Swelling of right hand 01/14/2021 Overview: Patient states noticing hand swelling AM of 4/7. Denies similar swelling in hands previously. Was receiving lasix prior to admission for LE edema Improved Plan: Duplex US negative Lasix 20mg PRN 01/23: today with non-itching discoloration of top of hand; will continue monitoring documented as of this encounter (statuses as of 01/14/2022) [facility]-2021 History of Past illness Narrative* Problem Noted Date Resolved Date Sepsis 01/25/2021 02/05/2021 Overview: 01/24: Febrile, TMax 38.6, tachycardia. Pancultured 01/25: +GPC reported x2 lumens of TLH. + streptococcus Plan: Sensitivities pending Currently on cefepime (01/24-*). Repeat BC NGTD ID consulted for treatment recs Neutropenic fever 01/24/2021 02/05/2021 Overview: 01/24 1500 patient with first neutropenic fever Plan; - see streptococcal bacteremia - Cefepime (01/24-*) Acute esophagitis 01/22/2021 02/05/2021 Overview: starting with throat pain Plan: - pall med following - 01/26 OR[facility] HAND discontinued and home pain meds continued Continues to improve; meds to PO /20 Swelling of right hand 01/14/2021 Overview: Patient states noticing hand swelling AM of 4/7. Denies similar swelling in hands previously. Was receiving lasix prior to admission for LE edema Improved Plan: Duplex US negative Lasix 20mg PRN 01/23: today with non-itching discoloration of top of hand; will continue monitoring documented as of this encounter (statuses as of 01/22/2022) [facility]21 History of Past illness Narrative* Problem Noted Date Resolved Date Sepsis 01/25/2021 02/05/2021 Overview: 01/24: Febrile, TMax 38.6, tachycardia. Pancultured 01/25: +GPC reported x2 lumens of TLH. + streptococcus Plan: Sensitivities pending Currently on cefepime (01/24-*). Repeat BC NGTD ID consulted for treatment recs Neutropenic fever 01/24/2021 02/05/2021 Overview: 01/24 1500 patient with first neutropenic fever Plan; - see streptococcal bacteremia - Cefepime (01/24-*) Acute esophagitis 01/22/2021 02/05/2021 Overview: starting with throat pain -06/19 Plan: - pall med following - 01/26 [facility] HAND discontinued and home pain meds continued Continues to improve; meds to PO 01/27 Swelling of right hand 01/14/2021 Overview: Patient states noticing hand swelling AM of 01/14. Denies similar swelling in hands previously. Was receiving lasix prior to admission for LE edema Improved Plan: Duplex US negative Lasix 20mg PRN 01/23: today with non-itching discoloration of top of hand; will continue monitoring documented as of this encounter (statuses as of 02/04/2022) [facility]21 History of Past illness Narrative* Problem Noted Date Resolved Date Sepsis 01/25/2021 02/05/2021 Overview: 01/24: Febrile, TMax 38.6, tachycardia. Pancultured 01/25: +GPC reported x2 lumens of TLH. + streptococcus Plan: Sensitivities pending Currently on cefepime (01/24-*). Repeat BC NGTD ID consulted for treatment recs Neutropenic fever 01/24/2021 02/05/2021 Overview: 01/24 1500 patient with first neutropenic fever Plan; - see streptococcal bacteremia - Cefepime (01/24-*) Acute esophagitis 01/22/2021 02/05/2021 Overview: starting with throat pain Plan: - pall med following - 01/26 [facility] HAND discontinued and home pain meds continued Continues to improve; meds to PO /20 Swelling of right hand 01/14/2021 Overview: Patient states noticing hand swelling AM of 4/7. Denies similar swelling in hands previously. Was receiving lasix prior to admission for LE edema Improved Plan: Duplex US negative Lasix 20mg PRN 01/23: today with non-itching discoloration of top of hand; will continue monitoring documented as of this encounter (statuses as of 02/22/2022) [facility]21 History of Past illness Narrative* Problem Noted Date Resolved Date Sepsis 01/25/2021 02/05/2021 Overview: 01/24: Febrile, TMax 38.6, tachycardia. Pancultured 01/25: +GPC reported x2 lumens of TLH. + streptococcus Plan: Sensitivities pending Currently on cefepime (01/24-*). Repeat BC NGTD ID consulted for treatment recs Neutropenic fever 01/24/2021 02/05/2021 Overview: 01/24 1500 patient with first neutropenic fever Plan; - see streptococcal bacteremia - Cefepime (01/24-*) Acute esophagitis 01/22/2021 02/05/2021 Overview: starting with throat pain Plan: - pall med following - 01/26 [facility] HAND discontinued and home pain meds continued Continues to improve; meds to PO /20 Swelling of right hand 01/14/2021 Overview: Patient states noticing hand swelling AM of 4/7. Denies similar swelling in hands previously. Was receiving lasix prior to admission for LE edema Improved Plan: Duplex US negative Lasix 20mg PRN 01/23: today with non-itching discoloration of top of hand; will continue monitoring documented as of this encounter (statuses as of 03/05/2022) [facility] History of Past illness Narrative* Problem Noted Date Resolved Date Sepsis 01/25/2021 02/05/2021 Overview: 01/24: Febrile, TMax 38.6, tachycardia. Pancultured 01/25: +GPC reported x2 lumens of TLH. + streptococcus Plan: Sensitivities pending Currently on cefepime (01/24-*). Repeat BC NGTD ID consulted for treatment recs Neutropenic fever 01/24/2021 02/05/2021 Overview: 01/24 1500 patient with first neutropenic fever Plan; - see streptococcal bacteremia - Cefepime (01/24-*) Acute esophagitis 01/22/2021 02/05/2021 Overview: starting with throat pain Plan: - pall med following - 01/26 [facility] HAND discontinued and home pain meds continued Continues to improve; meds to PO 01/27 Swelling of right hand 01/14/2021 Overview: Patient states noticing hand swelling AM of 01/14. Denies similar swelling in hands previously. Was receiving lasix prior to admission for LE edema Improved Plan: Duplex US negative Lasix 20mg PRN 01/23: today with non-itching discoloration of top of hand; will continue monitoring documented as of this encounter (statuses as of 03/18/2022) [facility]21 History of Past illness Narrative* Problem Noted Date Resolved Date Sepsis 01/25/2021 02/05/2021 Overview: 01/24: Febrile, TMax 38.6, tachycardia. Pancultured 01/25: +GPC reported x2 lumens of TLH. + streptococcus Plan: Sensitivities pending Currently on cefepime (01/24-*). Repeat BC NGTD ID consulted for treatment recs Neutropenic fever 01/24/2021 02/05/2021 Overview: 01/24 1500 patient with first neutropenic fever Plan; - see streptococcal bacteremia - Cefepime (01/24-*) Acute esophagitis 01/22/2021 02/05/2021 Overview: starting with throat pain Plan: - pall med following - 01/26 ORCHARD HAND discontinued and home pain meds continued Continues to improve; meds to PO 20 Swelling of right hand 01/14/2021 Overview: Patient states noticing hand swelling AM of 47. Denies similar swelling in hands previously. Was receiving lasix prior to admission for LE edema Improved Plan: Duplex US negative Lasix 20mg PRN 01/23: today with non-itching discoloration of top of hand; will continue monitoring documented as of this encounter (statuses as of 03/19/2022) [facility] History of Past illness Narrative* Problem Noted Date Resolved Date Sepsis 01/25/2021 02/05/2021 Overview: 01/24: Febrile, TMax 38.6, tachycardia. Pancultured 01/25: +GPC reported x2 lumens of TLH. + streptococcus Plan: Sensitivities pending Currently on cefepime (01/24-*). Repeat BC NGTD ID consulted for treatment recs Neutropenic fever 01/24/2021 02/05/2021 Overview: 01/24 1500 patient with first neutropenic fever Plan; - see streptococcal bacteremia - Cefepime (01/24-*) Acute esophagitis 01/22/2021 02/05/2021 Overview: starting with throat pain Plan: - pall med following - 01/26 [facility] HAND discontinued and home pain meds continued Continues to improve; meds to PO 20 Swelling of right hand 01/14/2021 Overview: Patient states noticing hand swelling AM of 47. Denies similar swelling in hands previously. Was receiving lasix prior to admission for LE edema Improved Plan: Duplex US negative Lasix 20mg PRN 01/23: today with non-itching discoloration of top of hand; will continue monitoring documented as of this encounter (statuses as of 03/22/2022) [facility] History of Past illness Narrative* Problem Noted Date Resolved Date Sepsis 01/25/2021 02/05/2021 Overview: 01/24: Febrile, TMax 38.6, tachycardia. Pancultured 01/25: +GPC reported x2 lumens of TLH. + streptococcus Plan: Sensitivities pending Currently on cefepime (01/24-*). Repeat BC NGTD ID consulted for treatment recs Neutropenic fever 01/24/2021 02/05/2021 Overview: 01/24 1500 patient with first neutropenic fever Plan; - see streptococcal bacteremia - Cefepime (01/24-*) Acute esophagitis 01/22/2021 02/05/2021 Overview: starting with throat pain Plan: - pall med following - 01/26 [facility] HAND discontinued and home pain meds continued Continues to improve; meds to PO 01/27 Swelling of right hand 01/14/2021 Overview: Patient states noticing hand swelling AM of 7. Denies similar swelling in hands previously. Was receiving lasix prior to admission for LE edema Improved Plan: Duplex US negative Lasix 20mg PRN 01/23: today with non-itching discoloration of top of hand; will continue monitoring documented as of this encounter (statuses as of 04/07/2022) [facility] History of Past illness Narrative* Problem Noted Date Resolved Date Sepsis 01/25/2021 02/05/2021 Overview: 01/24: Febrile, TMax 38.6, tachycardia. Pancultured 01/25: +GPC reported x2 lumens of TLH. + streptococcus Plan: Sensitivities pending Currently on cefepime (01/24-*). Repeat BC NGTD ID consulted for treatment recs Neutropenic fever 01/24/2021 02/05/2021 Overview: 01/24 1500 patient with first neutropenic fever Plan; - see streptococcal bacteremia - Cefepime (01/24-*) Acute esophagitis 01/22/2021 02/05/2021 Overview: starting with throat pain Plan: - pall med following - 01/26 OR[facility] HAND discontinued and home pain meds continued Continues to improve; meds to PO 20 Swelling of right hand 01/14/2021 Overview: Patient states noticing hand swelling AM of 01/14. Denies similar swelling in hands previously. Was receiving lasix prior to admission for LE edema Improved Plan: Duplex US negative Lasix 20mg PRN 01/23: today with non-itching discoloration of top of hand; will continue monitoring documented as of this encounter (statuses as of 04/20/2022) [facility] History of Past illness Narrative* Problem Noted Date Resolved Date Sepsis 01/25/2021 02/05/2021 Overview: 01/24: Febrile, TMax 38.6, tachycardia. Pancultured 01/25: +GPC reported x2 lumens of TLH. + streptococcus Plan: Sensitivities pending Currently on cefepime (01/24-*). Repeat BC NGTD ID consulted for treatment recs Neutropenic fever 01/24/2021 02/05/2021 Overview: 01/24 1500 patient with first neutropenic fever Plan; - see streptococcal bacteremia - Cefepime (01/24-*) Acute esophagitis 01/22/2021 02/05/2021 Overview: starting with throat pain Plan: - pall med following - 01/26 [facility] HAND discontinued and home pain meds continued Continues to improve; meds to PO /20 Swelling of right hand 01/14/2021 Overview: Patient states noticing hand swelling AM of 01/14. Denies similar swelling in hands previously. Was receiving lasix prior to admission for LE edema Improved Plan: Duplex US negative Lasix 20mg PRN 01/23: today with non-itching discoloration of top of hand; will continue monitoring documented as of this encounter (statuses as of 05/11/2022) [facility] History of Past illness Narrative* Problem Noted Date Resolved Date Sepsis 01/25/2021 02/05/2021 Overview: 01/24: Febrile, TMax 38.6, tachycardia. Pancultured 01/25: +GPC reported x2 lumens of TLH. + streptococcus Plan: Sensitivities pending Currently on cefepime (01/24-*). Repeat BC NGTD ID consulted for treatment recs Neutropenic fever 01/24/2021 02/05/2021 Overview: 01/24 1500 patient with first neutropenic fever Plan; - see streptococcal bacteremia - Cefepime (01/24-*) Acute esophagitis 01/22/2021 02/05/2021 Overview: starting with throat pain -06/19 Plan: - pall med following - 01/26 ORCH[facility] HAND discontinued and home pain meds continued Continues to improve; meds to PO 01/27 Swelling of right hand 01/14/2021 Overview: Patient states noticing hand swelling AM of 01/14. Denies similar swelling in hands previously. Was receiving lasix prior to admission for LE edema Improved Plan: Duplex US negative Lasix 20mg PRN 01/23: today with non-itching discoloration of top of hand; will continue monitoring documented as of this encounter (statuses as of 06/29/2022) [facility] History of Past illness Narrative* Problem Noted Date Resolved Date Sepsis 01/25/2021 02/05/2021 Overview: 01/24: Febrile, TMax 38.6, tachycardia. Pancultured 01/25: +GPC reported x2 lumens of TLH. + streptococcus Plan: Sensitivities pending Currently on cefepime (01/24-*). Repeat BC NGTD ID consulted for treatment recs Neutropenic fever 01/24/2021 02/05/2021 Overview: 01/24 1500 patient with first neutropenic fever Plan; - see streptococcal bacteremia - Cefepime (01/24-*) Acute esophagitis 01/22/2021 02/05/2021 Overview: starting with throat pain Plan: - pall med following - 01/26 [facility] HAND discontinued and home pain meds continued Continues to improve; meds to PO 01/27 Swelling of right hand 01/14/2021 Overview: Patient states noticing hand swelling AM of 01/14. Denies similar swelling in hands previously. Was receiving lasix prior to admission for LE edema Improved Plan: Duplex US negative Lasix 20mg PRN 01/23: today with non-itching discoloration of top of hand; will continue monitoring documented as of this encounter (statuses as of 06/29/2022) [facility] History of Past illness Narrative* Problem Noted Date Resolved Date Sepsis 01/25/2021 02/05/2021 Overview: 01/24: Febrile, TMax 38.6, tachycardia. Pancultured 01/25: +GPC reported x2 lumens of TLH. + streptococcus Plan: Sensitivities pending Currently on cefepime (01/24-*). Repeat BC NGTD ID consulted for treatment recs Neutropenic fever 01/24/2021 02/05/2021 Overview: 01/24 1500 patient with first neutropenic fever Plan; - see streptococcal bacteremia - Cefepime (01/24-*) Acute esophagitis 01/22/2021 02/05/2021 Overview: starting with throat pain Plan: - pall med following - 01/26 ORCHARD HAND discontinued and home pain meds continued Continues to improve; meds to PO 01/27 Swelling of right hand 01/14/2021 Overview: Patient states noticing hand swelling AM of 01/14. Denies similar swelling in hands previously. Was receiving lasix prior to admission for LE edema Improved Plan: Duplex US negative Lasix 20mg PRN 01/23: today with non-itching discoloration of top of hand; will continue monitoring documented as of this encounter (statuses as of 06/29/2022) [facility] History of Past illness Narrative* Problem Noted Date Resolved Date Sepsis 01/25/2021 02/05/2021 Overview: 01/24: Febrile, TMax 38.6, tachycardia. Pancultured 01/25: +GPC reported x2 lumens of TLH. + streptococcus Plan: Sensitivities pending Currently on cefepime (01/24-*). Repeat BC NGTD ID consulted for treatment recs Neutropenic fever 01/24/2021 02/05/2021 Overview: 01/24 1500 patient with first neutropenic fever Plan; - see streptococcal bacteremia - Cefepime (01/24-*) Acute esophagitis 01/22/2021 02/05/2021 Overview: starting with throat pain -06/19 Plan: - pall med following - 01/26 ORCHARD HAND discontinued and home pain meds continued Continues to improve; meds to PO 01/27 Swelling of right hand 01/14/2021 Overview: Patient states noticing hand swelling AM of 01/14. Denies similar swelling in hands previously. Was receiving lasix prior to admission for LE edema Improved Plan: Duplex US negative Lasix 20mg PRN 01/23: today with non-itching discoloration of top of hand; will continue monitoring documented as of this encounter (statuses as of 07/02/2022) [facility] History of Past illness Narrative* Problem Noted Date Resolved Date Sepsis 01/25/2021 02/05/2021 Overview: 01/24: Febrile, TMax 38.6, tachycardia. Pancultured 01/25: +GPC reported x2 lumens of TLH. + streptococcus Plan: Sensitivities pending Currently on cefepime (01/24-*). Repeat BC NGTD ID consulted for treatment recs Neutropenic fever 01/24/2021 02/05/2021 Overview: 01/24 1500 patient with first neutropenic fever Plan; - see streptococcal bacteremia - Cefepime (01/24-*) Acute esophagitis 01/22/2021 02/05/2021 Overview: starting with throat pain Plan: - pall med following - 01/26 ORCHARD HAND discontinued and home pain meds continued Continues to improve; meds to PO 01/27 Swelling of right hand 01/14/2021 Overview: Patient states noticing hand swelling AM of 01/14. Denies similar swelling in hands previously. Was receiving lasix prior to admission for LE edema Improved Plan: Duplex US negative Lasix 20mg PRN 01/23: today with non-itching discoloration of top of hand; will continue monitoring documented as of this encounter (statuses as of 08/03/2022) [facility] History of Past illness Narrative* Problem Noted Date Resolved Date Sepsis 01/25/2021 02/05/2021 Overview: 01/24: Febrile, TMax 38.6, tachycardia. Pancultured 01/25: +GPC reported x2 lumens of TLH. + streptococcus Plan: Sensitivities pending Currently on cefepime (01/24-*). Repeat BC NGTD ID consulted for treatment recs Neutropenic fever 01/24/2021 02/05/2021 Overview: 01/24 1500 patient with first neutropenic fever Plan; - see streptococcal bacteremia - Cefepime (01/24-*) Acute esophagitis 01/22/2021 02/05/2021 Overview: starting with throat pain Plan: - pall med following - 01/26 ORCHARD HAND discontinued and home pain meds continued Continues to improve; meds to PO 01/27 Swelling of right hand 01/14/2021 Overview: Patient states noticing hand swelling AM of 47. Denies similar swelling in hands previously. Was receiving lasix prior to admission for LE edema Improved Plan: Duplex US negative Lasix 20mg PRN 01/23: today with non-itching discoloration of top of hand; will continue monitoring documented as of this encounter (statuses as of 08/25/2022) [facility] History of Past illness Narrative* Problem Noted Date Resolved Date Sepsis 01/25/2021 02/05/2021 Overview: 01/24: Febrile, TMax 38.6, tachycardia. Pancultured 01/25: +GPC reported x2 lumens of TLH. + streptococcus Plan: Sensitivities pending Currently on cefepime (01/24-*). Repeat BC NGTD ID consulted for treatment recs Neutropenic fever 01/24/2021 02/05/2021 Overview: 01/24 1500 patient with first neutropenic fever Plan; - see streptococcal bacteremia - Cefepime (01/24-*) Acute esophagitis 01/22/2021 02/05/2021 Overview: starting with throat pain -06/19 Plan: - pall med following - 01/26 ORCHARD HAND discontinued and home pain meds continued Continues to improve; meds to PO 01/27 Swelling of right hand 01/14/2021 Overview: Patient states noticing hand swelling AM of 47. Denies similar swelling in hands previously. Was receiving lasix prior to admission for LE edema Improved Plan: Duplex US negative Lasix 20mg PRN 01/23: today with non-itching discoloration of top of hand; will continue monitoring documented as of this encounter (statuses as of 09/17/2022) [facility] History of Past illness Narrative* Problem Noted Date Resolved Date Sepsis 01/25/2021 02/05/2021 Overview: 01/24: Febrile, TMax 38.6, tachycardia. Pancultured 01/25: +GPC reported x2 lumens of TLH. + streptococcus Plan: Sensitivities pending Currently on cefepime (01/24-*). Repeat BC NGTD ID consulted for treatment recs Neutropenic fever 01/24/2021 02/05/2021 Overview: 01/24 1500 patient with first neutropenic fever Plan; - see streptococcal bacteremia - Cefepime (01/24-*) Acute esophagitis 01/22/2021 02/05/2021 Overview: starting with throat pain Plan: - pall med following - 01/26 ORCHARD HAND discontinued and home pain meds continued Continues to improve; meds to PO 01/27 Swelling of right hand 01/14/2021 Overview: Patient states noticing hand swelling AM of 01/14. Denies similar swelling in hands previously. Was receiving lasix prior to admission for LE edema Improved Plan: Duplex US negative Lasix 20mg PRN 01/23: today with non-itching discoloration of top of hand; will continue monitoring documented as of this encounter (statuses as of 09/17/2022) [facility] History of Past illness Narrative* Problem Noted Date Resolved Date Sepsis 01/25/2021 02/05/2021 Overview: 01/24: Febrile, TMax 38.6, tachycardia. Pancultured 01/25: +GPC reported x2 lumens of TLH. + streptococcus Plan: Sensitivities pending Currently on cefepime (01/24-*). Repeat BC NGTD ID consulted for treatment recs Neutropenic fever 01/24/2021 02/05/2021 Overview: 01/24 1500 patient with first neutropenic fever Plan; - see streptococcal bacteremia - Cefepime (01/24-*) Acute esophagitis 01/22/2021 02/05/2021 Overview: starting with throat pain Plan: - pall med following - 01/26 ORCHARD HAND discontinued and home pain meds continued Continues to improve; meds to PO 01/27 Swelling of right hand 01/14/2021 Overview: Patient states noticing hand swelling AM of 47. Denies similar swelling in hands previously. Was receiving lasix prior to admission for LE edema Improved Plan: Duplex US negative Lasix 20mg PRN 01/23: today with non-itching discoloration of top of hand; will continue monitoring documented as of this encounter (statuses as of 09/21/2022) [facility] History of Past illness Narrative* Problem Noted Date Resolved Date Sepsis 01/25/2021 02/05/2021 Overview: 01/24: Febrile, TMax 38.6, tachycardia. Pancultured 01/25: +GPC reported x2 lumens of TLH. + streptococcus Plan: Sensitivities pending Currently on cefepime (01/24-*). Repeat BC NGTD ID consulted for treatment recs Neutropenic fever 01/24/2021 02/05/2021 Overview: 01/24 1500 patient with first neutropenic fever Plan; - see streptococcal bacteremia - Cefepime (01/24-*) Acute esophagitis 01/22/2021 02/05/2021 Overview: starting with throat pain Plan: - pall med following - 01/26 ORCHARD HAND discontinued and home pain meds continued Continues to improve; meds to PO 20 Swelling of right hand 01/14/2021 Overview: Patient states noticing hand swelling AM of 4. Denies similar swelling in hands previously. Was receiving lasix prior to admission for LE edema Improved Plan: Duplex US negative Lasix 20mg PRN 01/23: today with non-itching discoloration of top of hand; will continue monitoring documented as of this encounter (statuses as of 09/21/2022) [facility] History of Past illness Narrative* Problem Noted Date Resolved Date Sepsis 01/25/2021 02/05/2021 Overview: 01/24: Febrile, TMax 38.6, tachycardia. Pancultured 01/25: +GPC reported x2 lumens of TLH. + streptococcus Plan: Sensitivities pending Currently on cefepime (01/24-*). Repeat BC NGTD ID consulted for treatment recs Neutropenic fever 01/24/2021 02/05/2021 Overview: 01/24 1500 patient with first neutropenic fever Plan; - see streptococcal bacteremia - Cefepime (01/24-*) Acute esophagitis 01/22/2021 02/05/2021 Overview: starting with throat pain Plan: - pall med following - 01/26 ORCHARD HAND discontinued and home pain meds continued Continues to improve; meds to PO 01/27 Swelling of right hand 01/14/2021 Overview: Patient states noticing hand swelling AM of 01/14. Denies similar swelling in hands previously. Was receiving lasix prior to admission for LE edema Improved Plan: Duplex US negative Lasix 20mg PRN 01/23: today with non-itching discoloration of top of hand; will continue monitoring documented as of this encounter (statuses as of 09/22/2022) [facility] History of Past illness Narrative* Problem Noted Date Resolved Date Sepsis 01/25/2021 02/05/2021 Overview: 01/24: Febrile, TMax 38.6, tachycardia. Pancultured 01/25: +GPC reported x2 lumens of TLH. + streptococcus Plan: Sensitivities pending Currently on cefepime (01/24-*). Repeat BC NGTD ID consulted for treatment recs Neutropenic fever 01/24/2021 02/05/2021 Overview: 01/24 1500 patient with first neutropenic fever Plan; - see streptococcal bacteremia - Cefepime (01/24-*) Acute esophagitis 01/22/2021 02/05/2021 Overview: starting with throat pain Plan: - pall med following - 01/26 ORCHARD HAND discontinued and home pain meds continued Continues to improve; meds to PO 20 Swelling of right hand 01/14/2021 Overview: Patient states noticing hand swelling AM of 4/7. Denies similar swelling in hands previously. Was receiving lasix prior to admission for LE edema Improved Plan: Duplex US negative Lasix 20mg PRN 01/23: today with non-itching discoloration of top of hand; will continue monitoring documented as of this encounter (statuses as of 09/23/2022) [facility]2021 History of Past illness Narrative* Problem Noted Date Resolved Date Sepsis 01/25/2021 02/05/2021 Overview: 01/24: Febrile, TMax 38.6, tachycardia. Pancultured 01/25: +GPC reported x2 lumens of TLH. + streptococcus Plan: Sensitivities pending Currently on cefepime (01/24-*). Repeat BC NGTD ID consulted for treatment recs Neutropenic fever 01/24/2021 02/05/2021 Overview: 01/24 1500 patient with first neutropenic fever Plan; - see streptococcal bacteremia - Cefepime (01/24-*) Acute esophagitis 01/22/2021 02/05/2021 Overview: starting with throat pain Plan: - pall med following - 01/26 [facility] HAND discontinued and home pain meds continued Continues to improve; meds to PO 20 Swelling of right hand 01/14/2021 Overview: Patient states noticing hand swelling AM of 4/7. Denies similar swelling in hands previously. Was receiving lasix prior to admission for LE edema Improved Plan: Duplex US negative Lasix 20mg PRN 01/23: today with non-itching discoloration of top of hand; will continue monitoring documented as of this encounter (statuses as of 09/25/2022) [facility]2021 History of Past illness Narrative* Problem Noted Date Resolved Date Sepsis 01/25/2021 02/05/2021 Overview: 01/24: Febrile, TMax 38.6, tachycardia. Pancultured 01/25: +GPC reported x2 lumens of TLH. + streptococcus Plan: Sensitivities pending Currently on cefepime (01/24-*). Repeat BC NGTD ID consulted for treatment recs Neutropenic fever 01/24/2021 02/05/2021 Overview: 01/24 1500 patient with first neutropenic fever Plan; - see streptococcal bacteremia - Cefepime (01/24-*) Acute esophagitis 01/22/2021 02/05/2021 Overview: starting with throat pain Plan: - pall med following - 01/26 [facility] HAND discontinued and home pain meds continued Continues to improve; meds to PO 01/27 Swelling of right hand 01/14/2021 Overview: Patient states noticing hand swelling AM of 01/14. Denies similar swelling in hands previously. Was receiving lasix prior to admission for LE edema Improved Plan: Duplex US negative Lasix 20mg PRN 01/23: today with non-itching discoloration of top of hand; will continue monitoring documented as of this encounter (statuses as of 09/28/2022) [facility]21 History of Past illness Narrative* Problem Noted Date Resolved Date Sepsis 01/25/2021 02/05/2021 Overview: 01/24: Febrile, TMax 38.6, tachycardia. Pancultured 01/25: +GPC reported x2 lumens of TLH. + streptococcus Plan: Sensitivities pending Currently on cefepime (01/24-*). Repeat BC NGTD ID consulted for treatment recs Neutropenic fever 01/24/2021 02/05/2021 Overview: 01/24 1500 patient with first neutropenic fever Plan; - see streptococcal bacteremia - Cefepime (01/24-*) Acute esophagitis 01/22/2021 02/05/2021 Overview: starting with throat pain Plan: - pall med following - 01/26 [facility] HAND discontinued and home pain meds continued Continues to improve; meds to PO 20 Swelling of right hand 01/14/2021 Overview: Patient states noticing hand swelling AM of 4/7. Denies similar swelling in hands previously. Was receiving lasix prior to admission for LE edema Improved Plan: Duplex US negative Lasix 20mg PRN 01/23: today with non-itching discoloration of top of hand; will continue monitoring documented as of this encounter (statuses as of 10/26/2022) [facility]21 History of Past illness Narrative* Problem Noted Date Resolved Date Sepsis 01/25/2021 02/05/2021 Overview: 01/24: Febrile, TMax 38.6, tachycardia. Pancultured 01/25: +GPC reported x2 lumens of TLH. + streptococcus Plan: Sensitivities pending Currently on cefepime (01/24-*). Repeat BC NGTD ID consulted for treatment recs Neutropenic fever 01/24/2021 02/05/2021 Overview: 01/24 1500 patient with first neutropenic fever Plan; - see streptococcal bacteremia - Cefepime (01/24-*) Acute esophagitis 01/22/2021 02/05/2021 Overview: starting with throat pain Plan: - pall med following - 01/26 [facility] HAND discontinued and home pain meds continued Continues to improve; meds to PO /20 Swelling of right hand 01/14/2021 Overview: Patient states noticing hand swelling AM of 4/7. Denies similar swelling in hands previously. Was receiving lasix prior to admission for LE edema Improved Plan: Duplex US negative Lasix 20mg PRN 01/23: today with non-itching discoloration of top of hand; will continue monitoring documented as of this encounter (statuses as of 10/26/2022) [facility]21 History of Past illness Narrative* Problem Noted Date Resolved Date Sepsis 01/25/2021 02/05/2021 Overview: 01/24: Febrile, TMax 38.6, tachycardia. Pancultured 01/25: +GPC reported x2 lumens of TLH. + streptococcus Plan: Sensitivities pending Currently on cefepime (01/24-*). Repeat BC NGTD ID consulted for treatment recs Neutropenic fever 01/24/2021 02/05/2021 Overview: 01/24 1500 patient with first neutropenic fever Plan; - see streptococcal bacteremia - Cefepime (01/24-*) Acute esophagitis 01/22/2021 02/05/2021 Overview: starting with throat pain Plan: - pall med following - 01/26 [facility] HAND discontinued and home pain meds continued Continues to improve; meds to PO 01/27 Swelling of right hand 01/14/2021 Overview: Patient states noticing hand swelling AM of 01/14. Denies similar swelling in hands previously. Was receiving lasix prior to admission for LE edema Improved Plan: Duplex US negative Lasix 20mg PRN 01/23: today with non-itching discoloration of top of hand; will continue monitoring documented as of this encounter (statuses as of 11/18/2022) [facility]21 History of Past illness Narrative* Problem Noted Date Resolved Date Sepsis 01/25/2021 02/05/2021 Overview: 01/24: Febrile, TMax 38.6, tachycardia. Pancultured 01/25: +GPC reported x2 lumens of TLH. + streptococcus Plan: Sensitivities pending Currently on cefepime (01/24-*). Repeat BC NGTD ID consulted for treatment recs Neutropenic fever 01/24/2021 02/05/2021 Overview: 01/24 1500 patient with first neutropenic fever Plan; - see streptococcal bacteremia - Cefepime (01/24-*) Acute esophagitis 01/22/2021 02/05/2021 Overview: starting with throat pain Plan: - pall med following - 01/26 [facility] HAND discontinued and home pain meds continued Continues to improve; meds to PO 20 Swelling of right hand 01/14/2021 Overview: Patient states noticing hand swelling AM of 47. Denies similar swelling in hands previously. Was receiving lasix prior to admission for LE edema Improved Plan: Duplex US negative Lasix 20mg PRN 01/23: today with non-itching discoloration of top of hand; will continue monitoring documented as of this encounter (statuses as of 11/26/2022) [facility]21 History of Past illness Narrative* Problem Noted Date Resolved Date Sepsis 01/25/2021 02/05/2021 Overview: 01/24: Febrile, TMax 38.6, tachycardia. Pancultured 01/25: +GPC reported x2 lumens of TLH. + streptococcus Plan: Sensitivities pending Currently on cefepime (01/24-*). Repeat BC NGTD ID consulted for treatment recs Neutropenic fever 01/24/2021 02/05/2021 Overview: 01/24 1500 patient with first neutropenic fever Plan; - see streptococcal bacteremia - Cefepime (01/24-*) Acute esophagitis 01/22/2021 02/05/2021 Overview: starting with throat pain Plan: - pall med following - 01/26 [facility] HAND discontinued and home pain meds continued Continues to improve; meds to PO /20 Swelling of right hand 01/14/2021 Overview: Patient states noticing hand swelling AM of 47. Denies similar swelling in hands previously. Was receiving lasix prior to admission for LE edema Improved Plan: Duplex US negative Lasix 20mg PRN 01/23: today with non-itching discoloration of top of hand; will continue monitoring documented as of this encounter (statuses as of 12/09/2022) [facility] History of Past illness Narrative* Problem Noted Date Resolved Date Sepsis 01/25/2021 02/05/2021 Overview: 01/24: Febrile, TMax 38.6, tachycardia. Pancultured 01/25: +GPC reported x2 lumens of TLH. + streptococcus Plan: Sensitivities pending Currently on cefepime (01/24-*). Repeat BC NGTD ID consulted for treatment recs Neutropenic fever 01/24/2021 02/05/2021 Overview: 01/24 1500 patient with first neutropenic fever Plan; - see streptococcal bacteremia - Cefepime (01/24-*) Acute esophagitis 01/22/2021 02/05/2021 Overview: starting with throat pain -06/19 Plan: - pall med following - 01/26 [facility] HAND discontinued and home pain meds continued Continues to improve; meds to PO 01/27 Swelling of right hand 01/14/2021 Overview: Patient states noticing hand swelling AM of 01/14. Denies similar swelling in hands previously. Was receiving lasix prior to admission for LE edema Improved Plan: Duplex US negative Lasix 20mg PRN 01/23: today with non-itching discoloration of top of hand; will continue monitoring documented as of this encounter (statuses as of 12/14/2022) [facility] History of Past illness Narrative* Problem Noted Date Resolved Date Sepsis 01/25/2021 02/05/2021 Overview: 01/24: Febrile, TMax 38.6, tachycardia. Pancultured 01/25: +GPC reported x2 lumens of TLH. + streptococcus Plan: Sensitivities pending Currently on cefepime (01/24-*). Repeat BC NGTD ID consulted for treatment recs Neutropenic fever 01/24/2021 02/05/2021 Overview: 01/24 1500 patient with first neutropenic fever Plan; - see streptococcal bacteremia - Cefepime (01/24-*) Acute esophagitis 01/22/2021 02/05/2021 Overview: starting with throat pain Plan: - pall med following - 01/26 OR[facility]ARD HAND discontinued and home pain meds continued Continues to improve; meds to PO 20 Swelling of right hand 01/14/2021 Overview: Patient states noticing hand swelling AM of 7. Denies similar swelling in hands previously. Was receiving lasix prior to admission for LE edema Improved Plan: Duplex US negative Lasix 20mg PRN 01/23: today with non-itching discoloration of top of hand; will continue monitoring documented as of this encounter (statuses as of 12/18/2022) [facility]21 History of Past illness Narrative* Problem Noted Date Resolved Date Sepsis 01/25/2021 02/05/2021 Overview: 01/24: Febrile, TMax 38.6, tachycardia. Pancultured 01/25: +GPC reported x2 lumens of TLH. + streptococcus Plan: Sensitivities pending Currently on cefepime (01/24-*). Repeat BC NGTD ID consulted for treatment recs Neutropenic fever 01/24/2021 02/05/2021 Overview: 01/24 1500 patient with first neutropenic fever Plan; - see streptococcal bacteremia - Cefepime (01/24-*) Acute esophagitis 01/22/2021 02/05/2021 Overview: starting with throat pain Plan: - pall med following - 01/26 [facility] HAND discontinued and home pain meds continued Continues to improve; meds to PO /20 Swelling of right hand 01/14/2021 Overview: Patient states noticing hand swelling AM of 4. Denies similar swelling in hands previously. Was receiving lasix prior to admission for LE edema Improved Plan: Duplex US negative Lasix 20mg PRN 01/23: today with non-itching discoloration of top of hand; will continue monitoring documented as of this encounter (statuses as of 12/29/2022) [facility]21 History of Past illness Narrative* Problem Noted Date Resolved Date Sepsis 01/25/2021 02/05/2021 Overview: 01/24: Febrile, TMax 38.6, tachycardia. Pancultured 01/25: +GPC reported x2 lumens of TLH. + streptococcus Plan: Sensitivities pending Currently on cefepime (01/24-*). Repeat BC NGTD ID consulted for treatment recs Neutropenic fever 01/24/2021 02/05/2021 Overview: 01/24 1500 patient with first neutropenic fever Plan; - see streptococcal bacteremia - Cefepime (01/24-*) Acute esophagitis 01/22/2021 02/05/2021 Overview: starting with throat pain -06/19 Plan: - pall med following - 01/26 [facility]ARD HAND discontinued and home pain meds continued Continues to improve; meds to PO 01/27 Swelling of right hand 01/14/2021 Overview: Patient states noticing hand swelling AM of 01/14. Denies similar swelling in hands previously. Was receiving lasix prior to admission for LE edema Improved Plan: Duplex US negative Lasix 20mg PRN 01/23: today with non-itching discoloration of top of hand; will continue monitoring documented as of this encounter (statuses as of 01/10/2023) [facility] History of Past illness Narrative* Problem Noted Date Resolved Date Sepsis 01/25/2021 02/05/2021 Overview: 01/24: Febrile, TMax 38.6, tachycardia. Pancultured 01/25: +GPC reported x2 lumens of TLH. + streptococcus Plan: Sensitivities pending Currently on cefepime (01/24-*). Repeat BC NGTD ID consulted for treatment recs Neutropenic fever 01/24/2021 02/05/2021 Overview: 01/24 1500 patient with first neutropenic fever Plan; - see streptococcal bacteremia - Cefepime (01/24-*) Acute esophagitis 01/22/2021 02/05/2021 Overview: starting with throat pain Plan: - pall med following - 01/26 [facility] HAND discontinued and home pain meds continued Continues to improve; meds to PO 01/27 Swelling of right hand 01/14/2021 Overview: Patient states noticing hand swelling AM of 01/14. Denies similar swelling in hands previously. Was receiving lasix prior to admission for LE edema Improved Plan: Duplex US negative Lasix 20mg PRN 01/23: today with non-itching discoloration of top of hand; will continue monitoring documented as of this encounter (statuses as of 01/18/2023) [facility]21 History of Past illness Narrative* Problem Noted Date Resolved Date Sepsis 01/25/2021 02/05/2021 Overview: 01/24: Febrile, TMax 38.6, tachycardia. Pancultured 01/25: +GPC reported x2 lumens of TLH. + streptococcus Plan: Sensitivities pending Currently on cefepime (01/24-*). Repeat BC NGTD ID consulted for treatment recs Neutropenic fever 01/24/2021 02/05/2021 Overview: 01/24 1500 patient with first neutropenic fever Plan; - see streptococcal bacteremia - Cefepime (01/24-*) Acute esophagitis 01/22/2021 02/05/2021 Overview: starting with throat pain Plan: - pall med following - 01/26 ORCHARD HAND discontinued and home pain meds continued Continues to improve; meds to PO 20 Swelling of right hand 01/14/2021 Overview: Patient states noticing hand swelling AM of 01/14. Denies similar swelling in hands previously. Was receiving lasix prior to admission for LE edema Improved Plan: Duplex US negative Lasix 20mg PRN 01/23: today with non-itching discoloration of top of hand; will continue monitoring documented as of this encounter (statuses as of 01/27/2023) [facility] History of Past illness Narrative* Problem Noted Date Resolved Date Sepsis 01/25/2021 02/05/2021 Overview: 01/24: Febrile, TMax 38.6, tachycardia. Pancultured 01/25: +GPC reported x2 lumens of TLH. + streptococcus Plan: Sensitivities pending Currently on cefepime (01/24-*). Repeat BC NGTD ID consulted for treatment recs Neutropenic fever 01/24/2021 02/05/2021 Overview: 01/24 1500 patient with first neutropenic fever Plan; - see streptococcal bacteremia - Cefepime (01/24-*) Acute esophagitis 01/22/2021 02/05/2021 Overview: starting with throat pain -06/19 Plan: - pall med following - 01/26 [facility]CHARD HAND discontinued and home pain meds continued Continues to improve; meds to PO 01/27 Swelling of right hand 01/14/2021 Overview: Patient states noticing hand swelling AM of 01/14. Denies similar swelling in hands previously. Was receiving lasix prior to admission for LE edema Improved Plan: Duplex US negative Lasix 20mg PRN 01/23: today with non-itching discoloration of top of hand; will continue monitoring documented as of this encounter (statuses as of 02/16/2023) [facility] History of Past illness Narrative* Problem Noted Date Resolved Date Sepsis 01/25/2021 02/05/2021 Overview: 01/24: Febrile, TMax 38.6, tachycardia. Pancultured 01/25: +GPC reported x2 lumens of TLH. + streptococcus Plan: Sensitivities pending Currently on cefepime (01/24-*). Repeat BC NGTD ID consulted for treatment recs Neutropenic fever 01/24/2021 02/05/2021 Overview: 01/24 1500 patient with first neutropenic fever Plan; - see streptococcal bacteremia - Cefepime (01/24-*) Acute esophagitis 01/22/2021 02/05/2021 Overview: starting with throat pain Plan: - pall med following - 01/26 ORCHARD HAND discontinued and home pain meds continued Continues to improve; meds to PO 01/27 Swelling of right hand 01/14/2021 Overview: Patient states noticing hand swelling AM of 01/14. Denies similar swelling in hands previously. Was receiving lasix prior to admission for LE edema Improved Plan: Duplex US negative Lasix 20mg PRN 01/23: today with non-itching discoloration of top of hand; will continue monitoring documented as of this encounter (statuses as of 03/09/2023) [facility] History of Past illness Narrative* Problem Noted Date Resolved Date Sepsis 01/25/2021 02/05/2021 Overview: 01/24: Febrile, TMax 38.6, tachycardia. Pancultured 01/25: +GPC reported x2 lumens of TLH. + streptococcus Plan: Sensitivities pending Currently on cefepime (01/24-*). Repeat BC NGTD ID consulted for treatment recs Neutropenic fever 01/24/2021 02/05/2021 Overview: 01/24 1500 patient with first neutropenic fever Plan; - see streptococcal bacteremia - Cefepime (01/24-*) Acute esophagitis 01/22/2021 02/05/2021 Overview: starting with throat pain Plan: - pall med following - 01/26 ORCHARD HAND discontinued and home pain meds continued Continues to improve; meds to PO 01/27 Swelling of right hand 01/14/2021 Overview: Patient states noticing hand swelling AM of 47. Denies similar swelling in hands previously. Was receiving lasix prior to admission for LE edema Improved Plan: Duplex US negative Lasix 20mg PRN 01/23: today with non-itching discoloration of top of hand; will continue monitoring documented as of this encounter (statuses as of 03/10/2023) [facility] History of Past illness Narrative* Problem Noted Date Resolved Date Sepsis 01/25/2021 02/05/2021 Overview: 01/24: Febrile, TMax 38.6, tachycardia. Pancultured 01/25: +GPC reported x2 lumens of TLH. + streptococcus Plan: Sensitivities pending Currently on cefepime (01/24-*). Repeat BC NGTD ID consulted for treatment recs Neutropenic fever 01/24/2021 02/05/2021 Overview: 01/24 1500 patient with first neutropenic fever Plan; - see streptococcal bacteremia - Cefepime (01/24-*) Acute esophagitis 01/22/2021 02/05/2021 Overview: starting with throat pain -06/19 Plan: - pall med following - 01/26 ORCHARD HAND discontinued and home pain meds continued Continues to improve; meds to PO 01/27 Swelling of right hand 01/14/2021 Overview: Patient states noticing hand swelling AM of 47. Denies similar swelling in hands previously. Was receiving lasix prior to admission for LE edema Improved Plan: Duplex US negative Lasix 20mg PRN 01/23: today with non-itching discoloration of top of hand; will continue monitoring documented as of this encounter (statuses as of 03/11/2023) [facility] History of Past illness Narrative* Problem Noted Date Resolved Date Sepsis 01/25/2021 02/05/2021 Overview: 01/24: Febrile, TMax 38.6, tachycardia. Pancultured 01/25: +GPC reported x2 lumens of TLH. + streptococcus Plan: Sensitivities pending Currently on cefepime (01/24-*). Repeat BC NGTD ID consulted for treatment recs Neutropenic fever 01/24/2021 02/05/2021 Overview: 01/24 1500 patient with first neutropenic fever Plan; - see streptococcal bacteremia - Cefepime (01/24-*) Acute esophagitis 01/22/2021 02/05/2021 Overview: starting with throat pain Plan: - pall med following - 01/26 ORCHARD HAND discontinued and home pain meds continued Continues to improve; meds to PO 01/27 Swelling of right hand 01/14/2021 Overview: Patient states noticing hand swelling AM of 01/14. Denies similar swelling in hands previously. Was receiving lasix prior to admission for LE edema Improved Plan: Duplex US negative Lasix 20mg PRN 01/23: today with non-itching discoloration of top of hand; will continue monitoring documented as of this encounter (statuses as of 03/11/2023) [facility] History of Past illness Narrative* Problem Noted Date Resolved Date Sepsis 01/25/2021 02/05/2021 Overview: 01/24: Febrile, TMax 38.6, tachycardia. Pancultured 01/25: +GPC reported x2 lumens of TLH. + streptococcus Plan: Sensitivities pending Currently on cefepime (01/24-*). Repeat BC NGTD ID consulted for treatment recs Neutropenic fever 01/24/2021 02/05/2021 Overview: 01/24 1500 patient with first neutropenic fever Plan; - see streptococcal bacteremia - Cefepime (01/24-*) Acute esophagitis 01/22/2021 02/05/2021 Overview: starting with throat pain Plan: - pall med following - 01/26 ORCHARD HAND discontinued and home pain meds continued Continues to improve; meds to PO 20 Swelling of right hand 01/14/2021 Overview: Patient states noticing hand swelling AM of 4/7. Denies similar swelling in hands previously. Was receiving lasix prior to admission for LE edema Improved Plan: Duplex US negative Lasix 20mg PRN 01/23: today with non-itching discoloration of top of hand; will continue monitoring documented as of this encounter (statuses as of 03/14/2023) [facility] History of Past illness Narrative* Problem Noted Date Resolved Date Sepsis 01/25/2021 02/05/2021 Overview: 01/24: Febrile, TMax 38.6, tachycardia. Pancultured 01/25: +GPC reported x2 lumens of TLH. + streptococcus Plan: Sensitivities pending Currently on cefepime (01/24-*). Repeat BC NGTD ID consulted for treatment recs Neutropenic fever 01/24/2021 02/05/2021 Overview: 01/24 1500 patient with first neutropenic fever Plan; - see streptococcal bacteremia - Cefepime (01/24-*) Acute esophagitis 01/22/2021 02/05/2021 Overview: starting with throat pain Plan: - pall med following - 01/26 ORCHARD HAND discontinued and home pain meds continued Continues to improve; meds to PO 20 Swelling of right hand 01/14/2021 Overview: Patient states noticing hand swelling AM of 47. Denies similar swelling in hands previously. Was receiving lasix prior to admission for LE edema Improved Plan: Duplex US negative Lasix 20mg PRN 01/23: today with non-itching discoloration of top of hand; will continue monitoring documented as of this encounter (statuses as of 03/16/2023) [facility] History of Past illness Narrative* Problem Noted Date Resolved Date Sepsis 01/25/2021 02/05/2021 Overview: 01/24: Febrile, TMax 38.6, tachycardia. Pancultured 01/25: +GPC reported x2 lumens of TLH. + streptococcus Plan: Sensitivities pending Currently on cefepime (01/24-*). Repeat BC NGTD ID consulted for treatment recs Neutropenic fever 01/24/2021 02/05/2021 Overview: 01/24 1500 patient with first neutropenic fever Plan; - see streptococcal bacteremia - Cefepime (01/24-*) Acute esophagitis 01/22/2021 02/05/2021 Overview: starting with throat pain Plan: - pall med following - 01/26 ORCHARD HAND discontinued and home pain meds continued Continues to improve; meds to PO 01/27 Swelling of right hand 01/14/2021 Overview: Patient states noticing hand swelling AM of 01/14. Denies similar swelling in hands previously. Was receiving lasix prior to admission for LE edema Improved Plan: Duplex US negative Lasix 20mg PRN 01/23: today with non-itching discoloration of top of hand; will continue monitoring documented as of this encounter (statuses as of 03/24/2023) [facility] History of Past illness Narrative* Problem Noted Date Resolved Date Sepsis 01/25/2021 02/05/2021 Overview: 01/24: Febrile, TMax 38.6, tachycardia. Pancultured 01/25: +GPC reported x2 lumens of TLH. + streptococcus Plan: Sensitivities pending Currently on cefepime (01/24-*). Repeat BC NGTD ID consulted for treatment recs Neutropenic fever 01/24/2021 02/05/2021 Overview: 01/24 1500 patient with first neutropenic fever Plan; - see streptococcal bacteremia - Cefepime (01/24-*) Acute esophagitis 01/22/2021 02/05/2021 Overview: starting with throat pain Plan: - pall med following - 01/26 ORCHARD HAND discontinued and home pain meds continued Continues to improve; meds to PO 01/27 Swelling of right hand 01/14/2021 Overview: Patient states noticing hand swelling AM of 4/7. Denies similar swelling in hands previously. Was receiving lasix prior to admission for LE edema Improved Plan: Duplex US negative Lasix 20mg PRN 01/23: today with non-itching discoloration of top of hand; will continue monitoring documented as of this encounter (statuses as of 03/24/2023) [facility]2021 History of Past illness Narrative* Problem Noted Date Resolved Date Sepsis 01/25/2021 02/05/2021 Overview: 01/24: Febrile, TMax 38.6, tachycardia. Pancultured 01/25: +GPC reported x2 lumens of TLH. + streptococcus Plan: Sensitivities pending Currently on cefepime (01/24-*). Repeat BC NGTD ID consulted for treatment recs Neutropenic fever 01/24/2021 02/05/2021 Overview: 01/24 1500 patient with first neutropenic fever Plan; - see streptococcal bacteremia - Cefepime (01/24-*) Acute esophagitis 01/22/2021 02/05/2021 Overview: starting with throat pain Plan: - pall med following - 01/26 ORCHARD HAND discontinued and home pain meds continued Continues to improve; meds to PO 20 Swelling of right hand 01/14/2021 Overview: Patient states noticing hand swelling AM of 4/7. Denies similar swelling in hands previously. Was receiving lasix prior to admission for LE edema Improved Plan: Duplex US negative Lasix 20mg PRN 01/23: today with non-itching discoloration of top of hand; will continue monitoring documented as of this encounter (statuses as of 03/25/2023) [facility]2021 History of Past illness Narrative* Problem Noted Date Resolved Date Sepsis 01/25/2021 02/05/2021 Overview: 01/24: Febrile, TMax 38.6, tachycardia. Pancultured 01/25: +GPC reported x2 lumens of TLH. + streptococcus Plan: Sensitivities pending Currently on cefepime (01/24-*). Repeat BC NGTD ID consulted for treatment recs Neutropenic fever 01/24/2021 02/05/2021 Overview: 01/24 1500 patient with first neutropenic fever Plan; - see streptococcal bacteremia - Cefepime (01/24-*) Acute esophagitis 01/22/2021 02/05/2021 Overview: starting with throat pain Plan: - pall med following - 01/26 ORCHARD HAND discontinued and home pain meds continued Continues to improve; meds to PO 01/27 Swelling of right hand 01/14/2021 Overview: Patient states noticing hand swelling AM of 01/14. Denies similar swelling in hands previously. Was receiving lasix prior to admission for LE edema Improved Plan: Duplex US negative Lasix 20mg PRN 01/23: today with non-itching discoloration of top of hand; will continue monitoring documented as of this encounter (statuses as of 03/29/2023) [facility]21 History of Past illness Narrative* Problem Noted Date Resolved Date Sepsis 01/25/2021 02/05/2021 Overview: 01/24: Febrile, TMax 38.6, tachycardia. Pancultured 01/25: +GPC reported x2 lumens of TLH. + streptococcus Plan: Sensitivities pending Currently on cefepime (01/24-*). Repeat BC NGTD ID consulted for treatment recs Neutropenic fever 01/24/2021 02/05/2021 Overview: 01/24 1500 patient with first neutropenic fever Plan; - see streptococcal bacteremia - Cefepime (01/24-*) Acute esophagitis 01/22/2021 02/05/2021 Overview: starting with throat pain Plan: - pall med following - 01/26 ORCHARD HAND discontinued and home pain meds continued Continues to improve; meds to PO /20 Swelling of right hand 01/14/2021 Overview: Patient states noticing hand swelling AM of 47. Denies similar swelling in hands previously. Was receiving lasix prior to admission for LE edema Improved Plan: Duplex US negative Lasix 20mg PRN 01/23: today with non-itching discoloration of top of hand; will continue monitoring documented as of this encounter (statuses as of 04/04/2023) [facility] History of Past illness Narrative* Problem Noted Date Diagnosed Date Resolved Date Sepsis 01/25/2021 02/05/2021 Overview: 01/24: Febrile, TMax 38.6, tachycardia. Pancultured 01/25: +GPC reported x2 lumens of TLH. + streptococcus Plan: Sensitivities pending Currently on cefepime (01/24-*). Repeat BC NGTD ID consulted for treatment recs Neutropenic fever 01/24/2021 02/05/2021 Overview: 01/24 1500 patient with first neutropenic fever Plan; - see streptococcal bacteremia - Cefepime (01/24-*) Acute esophagitis 01/22/2021 02/05/2021 Overview: starting with throat pain Plan: - pall med following - 01/26 ORCHARD HAND discontinued and home pain meds continued Continues to improve; meds to PO /20 Swelling of right hand 01/14/202102/05 Overview: Patient states noticing hand swelling AM of 4/7. Denies similar swelling in hands previously. Was receiving lasix prior to admission for LE edema Improved Plan: Duplex US negative Lasix 20mg PRN 01/23: today with non-itching discoloration of top of hand; will continue monitoring documented as of this encounter (statuses as of 04/19/2023) [facility]21 History of Past illness Narrative* Problem Noted Date Diagnosed Date Resolved Date Sepsis 01/25/2021 02/05/2021 Overview: 01/24: Febrile, TMax 38.6, tachycardia. Pancultured 01/25: +GPC reported x2 lumens of TLH. + streptococcus Plan: Sensitivities pending Currently on cefepime (01/24-*). Repeat BC NGTD ID consulted for treatment recs Neutropenic fever 01/24/2021 02/05/2021 Overview: 01/24 1500 patient with first neutropenic fever Plan; - see streptococcal bacteremia - Cefepime (01/24-*) Acute esophagitis 01/22/2021 02/05/2021 Overview: starting with throat pain Plan: - pall med following - 01/26 ORCHARD HAND discontinued and home pain meds continued Continues to improve; meds to PO 01/27 Swelling of right hand 01/14/202102/05 Overview: Patient states noticing hand swelling AM of 01/14. Denies similar swelling in hands previously. Was receiving lasix prior to admission for LE edema Improved Plan: Duplex US negative Lasix 20mg PRN 01/23: today with non-itching discoloration of top of hand; will continue monitoring documented as of this encounter (statuses as of 04/28/2023) [facility] History of Past illness Narrative* Problem Noted Date Diagnosed Date Resolved Date Sepsis 01/25/2021 02/05/2021 Overview: 01/24: Febrile, TMax 38.6, tachycardia. Pancultured 01/25: +GPC reported x2 lumens of TLH. + streptococcus Plan: Sensitivities pending Currently on cefepime (01/24-*). Repeat BC NGTD ID consulted for treatment recs Neutropenic fever 01/24/2021 02/05/2021 Overview: 01/24 1500 patient with first neutropenic fever Plan; - see streptococcal bacteremia - Cefepime (01/24-*) Acute esophagitis 01/22/2021 02/05/2021 Overview: starting with throat pain Plan: - pall med following - 01/26 ORCHARD HAND discontinued and home pain meds continued Continues to improve; meds to PO 20 Swelling of right hand 01/14/202102/05 Overview: Patient states noticing hand swelling AM of 4/7. Denies similar swelling in hands previously. Was receiving lasix prior to admission for LE edema Improved Plan: Duplex US negative Lasix 20mg PRN 01/23: today with non-itching discoloration of top of hand; will continue monitoring documented as of this encounter (statuses as of 05/12/2023) [facility]21 History of Past illness Narrative* Problem Noted Date Diagnosed Date Resolved Date Sepsis 01/25/2021 02/05/2021 Overview: 01/24: Febrile, TMax 38.6, tachycardia. Pancultured 01/25: +GPC reported x2 lumens of TLH. + streptococcus Plan: Sensitivities pending Currently on cefepime (01/24-*). Repeat BC NGTD ID consulted for treatment recs Neutropenic fever 01/24/2021 02/05/2021 Overview: 01/24 1500 patient with first neutropenic fever Plan; - see streptococcal bacteremia - Cefepime (01/24-*) Acute esophagitis 01/22/2021 02/05/2021 Overview: starting with throat pain Plan: - pall med following - 01/26 ORCHARD HAND discontinued and home pain meds continued Continues to improve; meds to PO /20 Swelling of right hand 01/14/202102/05 Overview: Patient states noticing hand swelling AM of 4/7. Denies similar swelling in hands previously. Was receiving lasix prior to admission for LE edema Improved Plan: Duplex US negative Lasix 20mg PRN 01/23: today with non-itching discoloration of top of hand; will continue monitoring documented as of this encounter (statuses as of 05/25/2023) [facility] History of Past illness Narrative* Problem Noted Date Diagnosed Date Resolved Date Sepsis 01/25/2021 02/05/2021 Overview: 01/24: Febrile, TMax 38.6, tachycardia. Pancultured 01/25: +GPC reported x2 lumens of TLH. + streptococcus Plan: Sensitivities pending Currently on cefepime (01/24-*). Repeat BC NGTD ID consulted for treatment recs Neutropenic fever 01/24/2021 02/05/2021 Overview: 01/24 1500 patient with first neutropenic fever Plan; - see streptococcal bacteremia - Cefepime (01/24-*) Acute esophagitis 01/22/2021 02/05/2021 Overview: starting with throat pain -06/19 Plan: - pall med following - 01/26 ORCHARD HAND discontinued and home pain meds continued Continues to improve; meds to PO 01/27 Swelling of right hand 01/14/202102/05 Overview: Patient states noticing hand swelling AM of 01/14. Denies similar swelling in hands previously. Was receiving lasix prior to admission for LE edema Improved Plan: Duplex US negative Lasix 20mg PRN 01/23: today with non-itching discoloration of top of hand; will continue monitoring documented as of this encounter (statuses as of 05/25/2023) [facility] History of Past illness Narrative* Problem Noted Date Diagnosed Date Resolved Date Sepsis 01/25/2021 02/05/2021 Overview: 01/24: Febrile, TMax 38.6, tachycardia. Pancultured 01/25: +GPC reported x2 lumens of TLH. + streptococcus Plan: Sensitivities pending Currently on cefepime (01/24-*). Repeat BC NGTD ID consulted for treatment recs Neutropenic fever 01/24/2021 02/05/2021 Overview: 01/24 1500 patient with first neutropenic fever Plan; - see streptococcal bacteremia - Cefepime (01/24-*) Acute esophagitis 01/22/2021 02/05/2021 Overview: starting with throat pain Plan: - pall med following - 01/26 ORCHARD HAND discontinued and home pain meds continued Continues to improve; meds to PO 01/27 Swelling of right hand 01/14/202102/05 Overview: Patient states noticing hand swelling AM of 01/14. Denies similar swelling in hands previously. Was receiving lasix prior to admission for LE edema Improved Plan: Duplex US negative Lasix 20mg PRN 01/23: today with non-itching discoloration of top of hand; will continue monitoring documented as of this encounter (statuses as of 05/31/2023) [facility] History of Past illness Narrative* Problem Noted Date Diagnosed Date Resolved Date Sepsis 01/25/2021 02/05/2021 Overview: 01/24: Febrile, TMax 38.6, tachycardia. Pancultured 01/25: +GPC reported x2 lumens of TLH. + streptococcus Plan: Sensitivities pending Currently on cefepime (01/24-*). Repeat BC NGTD ID consulted for treatment recs Neutropenic fever 01/24/2021 02/05/2021 Overview: 01/24 1500 patient with first neutropenic fever Plan; - see streptococcal bacteremia - Cefepime (01/24-*) Acute esophagitis 01/22/2021 02/05/2021 Overview: starting with throat pain Plan: - pall med following - 01/26 ORCHARD HAND discontinued and home pain meds continued Continues to improve; meds to PO 20 Swelling of right hand 01/14/202102/05 Overview: Patient states noticing hand swelling AM of 01/14. Denies similar swelling in hands previously. Was receiving lasix prior to admission for LE edema Improved Plan: Duplex US negative Lasix 20mg PRN 01/23: today with non-itching discoloration of top of hand; will continue monitoring documented as of this encounter (statuses as of 05/31/2023) [facility] History of Past illness Narrative* Problem Noted Date Diagnosed Date Resolved Date Sepsis 01/25/2021 02/05/2021 Overview: 01/24: Febrile, TMax 38.6, tachycardia. Pancultured 01/25: +GPC reported x2 lumens of TLH. + streptococcus Plan: Sensitivities pending Currently on cefepime (01/24-*). Repeat BC NGTD ID consulted for treatment recs Neutropenic fever 01/24/2021 02/05/2021 Overview: 01/24 1500 patient with first neutropenic fever Plan; - see streptococcal bacteremia - Cefepime (01/24-*) Acute esophagitis 01/22/2021 02/05/2021 Overview: starting with throat pain -06/19 Plan: - pall med following - 01/26 ORCHARD HAND discontinued and home pain meds continued Continues to improve; meds to PO 01/27 Swelling of right hand 01/14/202102/05 Overview: Patient states noticing hand swelling AM of 01/14. Denies similar swelling in hands previously. Was receiving lasix prior to admission for LE edema Improved Plan: Duplex US negative Lasix 20mg PRN 01/23: today with non-itching discoloration of top of hand; will continue monitoring documented as of this encounter (statuses as of 06/07/2023) [facility] History of Past illness Narrative* Problem Noted Date Diagnosed Date Resolved Date Sepsis 01/25/2021 02/05/2021 Overview: 01/24: Febrile, TMax 38.6, tachycardia. Pancultured 01/25: +GPC reported x2 lumens of TLH. + streptococcus Plan: Sensitivities pending Currently on cefepime (01/24-*). Repeat BC NGTD ID consulted for treatment recs Neutropenic fever 01/24/2021 02/05/2021 Overview: 01/24 1500 patient with first neutropenic fever Plan; - see streptococcal bacteremia - Cefepime (01/24-*) Acute esophagitis 01/22/2021 02/05/2021 Overview: starting with throat pain Plan: - pall med following - 01/26 ORCHARD HAND discontinued and home pain meds continued Continues to improve; meds to PO 01/27 Swelling of right hand 01/14/202102/05 Overview: Patient states noticing hand swelling AM of 01/14. Denies similar swelling in hands previously. Was receiving lasix prior to admission for LE edema Improved Plan: Duplex US negative Lasix 20mg PRN 01/23: today with non-itching discoloration of top of hand; will continue monitoring documented as of this encounter (statuses as of 06/09/2023) [facility] History of Past illness Narrative* Problem Noted Date Diagnosed Date Resolved Date Sepsis 01/25/2021 02/05/2021 Overview: 01/24: Febrile, TMax 38.6, tachycardia. Pancultured 01/25: +GPC reported x2 lumens of TLH. + streptococcus Plan: Sensitivities pending Currently on cefepime (01/24-*). Repeat BC NGTD ID consulted for treatment recs Neutropenic fever 01/24/2021 02/05/2021 Overview: 01/24 1500 patient with first neutropenic fever Plan; - see streptococcal bacteremia - Cefepime (01/24-*) Acute esophagitis 01/22/2021 02/05/2021 Overview: starting with throat pain Plan: - pall med following - 01/26 ORCHARD HAND discontinued and home pain meds continued Continues to improve; meds to PO 01/27 Swelling of right hand 01/14/202102/05 Overview: Patient states noticing hand swelling AM of 4. Denies similar swelling in hands previously. Was receiving lasix prior to admission for LE edema Improved Plan: Duplex US negative Lasix 20mg PRN 01/23: today with non-itching discoloration of top of hand; will continue monitoring documented as of this encounter (statuses as of 06/09/2023) [facility] History of Past illness Narrative* Problem Noted Date Diagnosed Date Resolved Date Sepsis 01/25/2021 02/05/2021 Overview: 01/24: Febrile, TMax 38.6, tachycardia. Pancultured 01/25: +GPC reported x2 lumens of TLH. + streptococcus Plan: Sensitivities pending Currently on cefepime (01/24-*). Repeat BC NGTD ID consulted for treatment recs Neutropenic fever 01/24/2021 02/05/2021 Overview: 01/24 1500 patient with first neutropenic fever Plan; - see streptococcal bacteremia - Cefepime (01/24-*) Acute esophagitis 01/22/2021 02/05/2021 Overview: starting with throat pain -06/19 Plan: - pall med following - 01/26 ORCHARD HAND discontinued and home pain meds continued Continues to improve; meds to PO 01/27 Swelling of right hand 01/14/202102/05 Overview: Patient states noticing hand swelling AM of 01/14. Denies similar swelling in hands previously. Was receiving lasix prior to admission for LE edema Improved Plan: Duplex US negative Lasix 20mg PRN 01/23: today with non-itching discoloration of top of hand; will continue monitoring documented as of this encounter (statuses as of 06/15/2023) [facility] History of Past illness Narrative* Problem Noted Date Diagnosed Date Resolved Date Sepsis 01/25/2021 02/05/2021 Overview: 01/24: Febrile, TMax 38.6, tachycardia. Pancultured 01/25: +GPC reported x2 lumens of TLH. + streptococcus Plan: Sensitivities pending Currently on cefepime (01/24-*). Repeat BC NGTD ID consulted for treatment recs Neutropenic fever 01/24/2021 02/05/2021 Overview: 01/24 1500 patient with first neutropenic fever Plan; - see streptococcal bacteremia - Cefepime (01/24-*) Acute esophagitis 01/22/2021 02/05/2021 Overview: starting with throat pain Plan: - pall med following - 01/26 ORCHARD HAND discontinued and home pain meds continued Continues to improve; meds to PO 01/27 Swelling of right hand 01/14/202102/05 Overview: Patient states noticing hand swelling AM of 01/14. Denies similar swelling in hands previously. Was receiving lasix prior to admission for LE edema Improved Plan: Duplex US negative Lasix 20mg PRN 01/23: today with non-itching discoloration of top of hand; will continue monitoring documented as of this encounter (statuses as of 06/20/2023) [facility] History of Past illness Narrative* Problem Noted Date Diagnosed Date Resolved Date Sepsis 01/25/2021 02/05/2021 Overview: 01/24: Febrile, TMax 38.6, tachycardia. Pancultured 01/25: +GPC reported x2 lumens of TLH. + streptococcus Plan: Sensitivities pending Currently on cefepime (01/24-*). Repeat BC NGTD ID consulted for treatment recs Neutropenic fever 01/24/2021 02/05/2021 Overview: 01/24 1500 patient with first neutropenic fever Plan; - see streptococcal bacteremia - Cefepime (01/24-*) Acute esophagitis 01/22/2021 02/05/2021 Overview: starting with throat pain Plan: - pall med following - 01/26 ORCHARD HAND discontinued and home pain meds continued Continues to improve; meds to PO 01/27 Swelling of right hand 01/14/202102/05 Overview: Patient states noticing hand swelling AM of 4/7. Denies similar swelling in hands previously. Was receiving lasix prior to admission for LE edema Improved Plan: Duplex US negative Lasix 20mg PRN 01/23: today with non-itching discoloration of top of hand; will continue monitoring documented as of this encounter (statuses as of 06/23/2023) [facility] History of Past illness Narrative* Problem Noted Date Diagnosed Date Resolved Date Sepsis 01/25/2021 02/05/2021 Overview: 01/24: Febrile, TMax 38.6, tachycardia. Pancultured 01/25: +GPC reported x2 lumens of TLH. + streptococcus Plan: Sensitivities pending Currently on cefepime (01/24-*). Repeat BC NGTD ID consulted for treatment recs Neutropenic fever 01/24/2021 02/05/2021 Overview: 01/24 1500 patient with first neutropenic fever Plan; - see streptococcal bacteremia - Cefepime (01/24-*) Acute esophagitis 01/22/2021 02/05/2021 Overview: starting with throat pain Plan: - pall med following - 01/26 ORCHARD HAND discontinued and home pain meds continued Continues to improve; meds to PO 20 Swelling of right hand 01/14/202102/05 Overview: Patient states noticing hand swelling AM of 4/7. Denies similar swelling in hands previously. Was receiving lasix prior to admission for LE edema Improved Plan: Duplex US negative Lasix 20mg PRN 01/23: today with non-itching discoloration of top of hand; will continue monitoring documented as of this encounter (statuses as of 06/29/2023) [facility] History of Past illness Narrative* Problem Noted Date Diagnosed Date Resolved Date Sepsis 01/25/2021 02/05/2021 Overview: 01/24: Febrile, TMax 38.6, tachycardia. Pancultured 01/25: +GPC reported x2 lumens of TLH. + streptococcus Plan: Sensitivities pending Currently on cefepime (01/24-*). Repeat BC NGTD ID consulted for treatment recs Neutropenic fever 01/24/2021 02/05/2021 Overview: 01/24 1500 patient with first neutropenic fever Plan; - see streptococcal bacteremia - Cefepime (01/24-*) Acute esophagitis 01/22/2021 02/05/2021 Overview: starting with throat pain Plan: - pall med following - 01/26 ORCHARD HAND discontinued and home pain meds continued Continues to improve; meds to PO 01/27 Swelling of right hand 01/14/202102/05 Overview: Patient states noticing hand swelling AM of 01/14. Denies similar swelling in hands previously. Was receiving lasix prior to admission for LE edema Improved Plan: Duplex US negative Lasix 20mg PRN 01/23: today with non-itching discoloration of top of hand; will continue monitoring documented as of this encounter (statuses as of 07/01/2023) [facility] History of Past illness Narrative* Problem Noted Date Diagnosed Date Resolved Date Sepsis 01/25/2021 02/05/2021 Overview: 01/24: Febrile, TMax 38.6, tachycardia. Pancultured 01/25: +GPC reported x2 lumens of TLH. + streptococcus Plan: Sensitivities pending Currently on cefepime (01/24-*). Repeat BC NGTD ID consulted for treatment recs Neutropenic fever 01/24/2021 02/05/2021 Overview: 01/24 1500 patient with first neutropenic fever Plan; - see streptococcal bacteremia - Cefepime (01/24-*) Acute esophagitis 01/22/2021 02/05/2021 Overview: starting with throat pain Plan: - pall med following - 01/26 ORCHARD HAND discontinued and home pain meds continued Continues to improve; meds to PO 4/20 Swelling of right hand 01/14/202102/05 Overview: Patient states noticing hand swelling AM of 4/7. Denies similar swelling in hands previously. Was receiving lasix prior to admission for LE edema Improved Plan: Duplex US negative Lasix 20mg PRN 01/23: today with non-itching discoloration of top of hand; will continue monitoring documented as of this encounter (statuses as of 07/02/2023) [facility] History of Past illness Narrative* Problem Noted Date Diagnosed Date Resolved Date Sepsis 01/25/2021 02/05/2021 Overview: 01/24: Febrile, TMax 38.6, tachycardia. Pancultured 01/25: +GPC reported x2 lumens of TLH. + streptococcus Plan: Sensitivities pending Currently on cefepime (01/24-*). Repeat BC NGTD ID consulted for treatment recs Neutropenic fever 01/24/2021 02/05/2021 Overview: 01/24 1500 patient with first neutropenic fever Plan; - see streptococcal bacteremia - Cefepime (01/24-*) Acute esophagitis 01/22/2021 02/05/2021 Overview: starting with throat pain Plan: - pall med following - 01/26 ORCHARD HAND discontinued and home pain meds continued Continues to improve; meds to PO /20 Swelling of right hand 01/14/202102/05 Overview: Patient states noticing hand swelling AM of 4/7. Denies similar swelling in hands previously. Was receiving lasix prior to admission for LE edema Improved Plan: Duplex US negative Lasix 20mg PRN 01/23: today with non-itching discoloration of top of hand; will continue monitoring documented as of this encounter (statuses as of 07/08/2023) [facility] History of Past illness Narrative* Problem Noted Date Diagnosed Date Resolved Date Sepsis 01/25/2021 02/05/2021 Overview: 01/24: Febrile, TMax 38.6, tachycardia. Pancultured 01/25: +GPC reported x2 lumens of TLH. + streptococcus Plan: Sensitivities pending Currently on cefepime (01/24-*). Repeat BC NGTD ID consulted for treatment recs Neutropenic fever (HCC) 01/24/202101/09 Overview: 01/24 1500 patient with first neutropenic fever Plan; - see streptococcal bacteremia - Cefepime (01/24-*) Acute esophagitis 01/22/2021 02/05/2021 Overview: starting with throat pain Plan: - pall med following - 01/26 ORCHARD HAND discontinued and home pain meds continued Continues to improve; meds to PO 01/27 Swelling of right hand 01/14/202102/05 Overview: Patient states noticing hand swelling AM of 01/14. Denies similar swelling in hands previously. Was receiving lasix prior to admission for LE edema Improved Plan: Duplex US negative Lasix 20mg PRN 01/23: today with non-itching discoloration of top of hand; will continue monitoring documented as of this encounter (statuses as of 07/20/2023) [facility]04-18-2021 History of Past illness Narrative* Problem Noted Date Diagnosed Date Resolved Date Sepsis 01/25/2021 02/05/2021 Overview: 01/24: Febrile, TMax 38.6, tachycardia. Pancultured 01/25: +GPC reported x2 lumens of TLH. + streptococcus Plan: Sensitivities pending Currently on cefepime (01/24-*). Repeat BC NGTD ID consulted for treatment recs Neutropenic fever (HCC) 01/24/202101/09 Overview: 01/24 1500 patient with first neutropenic fever Plan; - see streptococcal bacteremia - Cefepime (01/24-*) Acute esophagitis 01/22/2021 02/05/2021 Overview: starting with throat pain Plan: - pall med following - 01/26 ORCHARD HAND discontinued and home pain meds continued Continues to improve; meds to PO /20 Swelling of right hand 01/14/202102/05 Overview: Patient states noticing hand swelling AM of 47. Denies similar swelling in hands previously. Was receiving lasix prior to admission for LE edema Improved Plan: Duplex US negative Lasix 20mg PRN 01/23: today with non-itching discoloration of top of hand; will continue monitoring documented as of this encounter (statuses as of 07/26/2023) [facility]21 History of Past illness Narrative* Problem Noted Date Diagnosed Date Resolved Date Sepsis 01/25/2021 02/05/2021 Overview: 01/24: Febrile, TMax 38.6, tachycardia. Pancultured 01/25: +GPC reported x2 lumens of TLH. + streptococcus Plan: Sensitivities pending Currently on cefepime (01/24-*). Repeat BC NGTD ID consulted for treatment recs Neutropenic fever (HCC) 01/24/2021/06/2021 Overview: 01/24 1500 patient with first neutropenic fever Plan; - see streptococcal bacteremia - Cefepime (01/24-*) Acute esophagitis 01/22/2021 02/05/2021 Overview: starting with throat pain Plan: - pall med following - 01/26 ORCHARD HAND discontinued and home pain meds continued Continues to improve; meds to PO /20 Swelling of right hand 01/14/202102/05 Overview: Patient states noticing hand swelling AM of 47. Denies similar swelling in hands previously. Was receiving lasix prior to admission for LE edema Improved Plan: Duplex US negative Lasix 20mg PRN 01/23: today with non-itching discoloration of top of hand; will continue monitoring documented as of this encounter (statuses as of 08/09/2023) [facility]21 History of Past illness Narrative* Problem Noted Date Diagnosed Date Resolved Date Sepsis 01/25/2021 02/05/2021 Overview: 01/24: Febrile, TMax 38.6, tachycardia. Pancultured 01/25: +GPC reported x2 lumens of TLH. + streptococcus Plan: Sensitivities pending Currently on cefepime (01/24-*). Repeat BC NGTD ID consulted for treatment recs Neutropenic fever 01/24/2021 02/05/2021 Overview: 01/24 1500 patient with first neutropenic fever Plan; - see streptococcal bacteremia - Cefepime (01/24-*) Acute esophagitis 01/22/2021 02/05/2021 Overview: starting with throat pain -06/19 Plan: - pall med following - 01/26 ORCHARD HAND discontinued and home pain meds continued Continues to improve; meds to PO 01/27 Swelling of right hand 01/14/202102/05 Overview: Patient states noticing hand swelling AM of 01/14. Denies similar swelling in hands previously. Was receiving lasix prior to admission for LE edema Improved Plan: Duplex US negative Lasix 20mg PRN 01/23: today with non-itching discoloration of top of hand; will continue monitoring documented as of this encounter (statuses as of 08/14/2023) [facility] History of Past illness Narrative* Problem Noted Date Diagnosed Date Resolved Date Sepsis 01/25/2021 02/05/2021 Overview: 01/24: Febrile, TMax 38.6, tachycardia. Pancultured 01/25: +GPC reported x2 lumens of TLH. + streptococcus Plan: Sensitivities pending Currently on cefepime (01/24-*). Repeat BC NGTD ID consulted for treatment recs Neutropenic fever 01/24/2021 02/05/2021 Overview: 01/24 1500 patient with first neutropenic fever Plan; - see streptococcal bacteremia - Cefepime (01/24-*) Acute esophagitis 01/22/2021 02/05/2021 Overview: starting with throat pain Plan: - pall med following - 01/26 ORCHARD HAND discontinued and home pain meds continued Continues to improve; meds to PO 01/27 Swelling of right hand 01/14/202102/05 Overview: Patient states noticing hand swelling AM of 01/14. Denies similar swelling in hands previously. Was receiving lasix prior to admission for LE edema Improved Plan: Duplex US negative Lasix 20mg PRN 01/23: today with non-itching discoloration of top of hand; will continue monitoring documented as of this encounter (statuses as of 08/14/2023) [facility] History of Past illness Narrative* Problem Noted Date Diagnosed Date Resolved Date Sepsis 01/25/2021 02/05/2021 Overview: 01/24: Febrile, TMax 38.6, tachycardia. Pancultured 01/25: +GPC reported x2 lumens of TLH. + streptococcus Plan: Sensitivities pending Currently on cefepime (01/24-*). Repeat BC NGTD ID consulted for treatment recs Neutropenic fever 01/24/2021 02/05/2021 Overview: 01/24 1500 patient with first neutropenic fever Plan; - see streptococcal bacteremia - Cefepime (01/24-*) Acute esophagitis 01/22/2021 02/05/2021 Overview: starting with throat pain Plan: - pall med following - 01/26 ORCHARD HAND discontinued and home pain meds continued Continues to improve; meds to PO 20 Swelling of right hand 01/14/202102/05 Overview: Patient states noticing hand swelling AM of 01/14. Denies similar swelling in hands previously. Was receiving lasix prior to admission for LE edema Improved Plan: Duplex US negative Lasix 20mg PRN 01/23: today with non-itching discoloration of top of hand; will continue monitoring documented as of this encounter (statuses as of 08/14/2023) [facility] History of Past illness Narrative* Problem Noted Date Diagnosed Date Resolved Date Sepsis 01/25/2021 02/05/2021 Overview: 01/24: Febrile, TMax 38.6, tachycardia. Pancultured 01/25: +GPC reported x2 lumens of TLH. + streptococcus Plan: Sensitivities pending Currently on cefepime (01/24-*). Repeat BC NGTD ID consulted for treatment recs Neutropenic fever (HCC) 01/24/202101/09 Overview: 01/24 1500 patient with first neutropenic fever Plan; - see streptococcal bacteremia - Cefepime (01/24-*) Acute esophagitis 01/22/2021 02/05/2021 Overview: starting with throat pain -06/19 Plan: - pall med following - 01/26 ORCHARD HAND discontinued and home pain meds continued Continues to improve; meds to PO 01/27 Swelling of right hand 01/14/202102/05 Overview: Patient states noticing hand swelling AM of 01/14. Denies similar swelling in hands previously. Was receiving lasix prior to admission for LE edema Improved Plan: Duplex US negative Lasix 20mg PRN 01/23: today with non-itching discoloration of top of hand; will continue monitoring documented as of this encounter (statuses as of 08/16/2023) [facility] History of Past illness Narrative* Problem Noted Date Diagnosed Date Resolved Date Sepsis 01/25/2021 02/05/2021 Overview: 01/24: Febrile, TMax 38.6, tachycardia. Pancultured 01/25: +GPC reported x2 lumens of TLH. + streptococcus Plan: Sensitivities pending Currently on cefepime (01/24-*). Repeat BC NGTD ID consulted for treatment recs Neutropenic fever (HCC) 01/24/202101/09 Overview: 01/24 1500 patient with first neutropenic fever Plan; - see streptococcal bacteremia - Cefepime (01/24-*) Acute esophagitis 01/22/2021 02/05/2021 Overview: starting with throat pain Plan: - pall med following - 01/26 OR[facility]ARD HAND discontinued and home pain meds continued Continues to improve; meds to PO 01/27 Swelling of right hand 01/14/202102/05 Overview: Patient states noticing hand swelling AM of 01/14. Denies similar swelling in hands previously. Was receiving lasix prior to admission for LE edema Improved Plan: Duplex US negative Lasix 20mg PRN 01/23: today with non-itching discoloration of top of hand; will continue monitoring documented as of this encounter (statuses as of 08/23/2023) [facility] History of Past illness Narrative* Problem Noted Date Diagnosed Date Resolved Date Sepsis 01/25/2021 02/05/2021 Overview: 01/24: Febrile, TMax 38.6, tachycardia. Pancultured 01/25: +GPC reported x2 lumens of TLH. + streptococcus Plan: Sensitivities pending Currently on cefepime (01/24-*). Repeat BC NGTD ID consulted for treatment recs Neutropenic fever (HCC) 01/24/202101/09 Overview: 01/24 1500 patient with first neutropenic fever Plan; - see streptococcal bacteremia - Cefepime (01/24-*) Acute esophagitis 01/22/2021 02/05/2021 Overview: starting with throat pain Plan: - pall med following - 01/26 ORCHARD HAND discontinued and home pain meds continued Continues to improve; meds to PO 01/27 Swelling of right hand 01/14/202102/05 Overview: Patient states noticing hand swelling AM of 4/7. Denies similar swelling in hands previously. Was receiving lasix prior to admission for LE edema Improved Plan: Duplex US negative Lasix 20mg PRN 01/23: today with non-itching discoloration of top of hand; will continue monitoring documented as of this encounter (statuses as of 08/23/2023) [facility] History of Past illness Narrative* Problem Noted Date Diagnosed Date Resolved Date Sepsis 01/25/2021 02/05/2021 Overview: 01/24: Febrile, TMax 38.6, tachycardia. Pancultured 01/25: +GPC reported x2 lumens of TLH. + streptococcus Plan: Sensitivities pending Currently on cefepime (01/24-*). Repeat BC NGTD ID consulted for treatment recs Neutropenic fever (HCC) 01/24/202101/09 Overview: 01/24 1500 patient with first neutropenic fever Plan; - see streptococcal bacteremia - Cefepime (01/24-*) Acute esophagitis 01/22/2021 02/05/2021 Overview: starting with throat pain -06/19 Plan: - pall med following - 01/26 ORCHARD HAND discontinued and home pain meds continued Continues to improve; meds to PO 20 Swelling of right hand 01/14/202102/05 Overview: Patient states noticing hand swelling AM of 4. Denies similar swelling in hands previously. Was receiving lasix prior to admission for LE edema Improved Plan: Duplex US negative Lasix 20mg PRN 01/23: today with non-itching discoloration of top of hand; will continue monitoring documented as of this encounter (statuses as of 09/13/2023) [facility] History of Past illness Narrative* Problem Noted Date Diagnosed Date Resolved Date Sepsis 01/25/2021 02/05/2021 Overview: 01/24: Febrile, TMax 38.6, tachycardia. Pancultured 01/25: +GPC reported x2 lumens of TLH. + streptococcus Plan: Sensitivities pending Currently on cefepime (01/24-*). Repeat BC NGTD ID consulted for treatment recs Neutropenic fever (HCC) 01/24/202101/09 Overview: 01/24 1500 patient with first neutropenic fever Plan; - see streptococcal bacteremia - Cefepime (01/24-*) Acute esophagitis 01/22/2021 02/05/2021 Overview: starting with throat pain Plan: - pall med following - 01/26 ORCHARD HAND discontinued and home pain meds continued Continues to improve; meds to PO 01/27 Swelling of right hand 01/14/202102/05 Overview: Patient states noticing hand swelling AM of 01/14. Denies similar swelling in hands previously. Was receiving lasix prior to admission for LE edema Improved Plan: Duplex US negative Lasix 20mg PRN 01/23: today with non-itching discoloration of top of hand; will continue monitoring documented as of this encounter (statuses as of 11/21/2023) [facility] History of Past illness Narrative* Problem Noted Date Diagnosed Date Resolved Date Sepsis 01/25/2021 02/05/2021 Overview: 01/24: Febrile, TMax 38.6, tachycardia. Pancultured 01/25: +GPC reported x2 lumens of TLH. + streptococcus Plan: Sensitivities pending Currently on cefepime (01/24-*). Repeat BC NGTD ID consulted for treatment recs Neutropenic fever (HCC) 01/24/202101/09 Overview: 01/24 1500 patient with first neutropenic fever Plan; - see streptococcal bacteremia - Cefepime (01/24-*) Acute esophagitis 01/22/2021 02/05/2021 Overview: starting with throat pain Plan: - pall med following - 01/26 ORCHARD HAND discontinued and home pain meds continued Continues to improve; meds to PO /20 Swelling of right hand 01/14/202102/05 Overview: Patient states noticing hand swelling AM of 4/7. Denies similar swelling in hands previously. Was receiving lasix prior to admission for LE edema Improved Plan: Duplex US negative Lasix 20mg PRN 01/23: today with non-itching discoloration of top of hand; will continue monitoring documented as of this encounter (statuses as of 11/24/2023) [facility] History of Past illness Narrative* Problem Noted Date Diagnosed Date Resolved Date Sepsis 01/25/2021 02/05/2021 Overview: 01/24: Febrile, TMax 38.6, tachycardia. Pancultured 01/25: +GPC reported x2 lumens of TLH. + streptococcus Plan: Sensitivities pending Currently on cefepime (01/24-*). Repeat BC NGTD ID consulted for treatment recs Neutropenic fever (HCC) 01/24/202101/09 Overview: 01/24 1500 patient with first neutropenic fever Plan; - see streptococcal bacteremia - Cefepime (01/24-*) Acute esophagitis 01/22/2021 02/05/2021 Overview: starting with throat pain Plan: - pall med following - 01/26 ORCHARD HAND discontinued and home pain meds continued Continues to improve; meds to PO /20 Swelling of right hand 01/14/202102/05 Overview: Patient states noticing hand swelling AM of 4/7. Denies similar swelling in hands previously. Was receiving lasix prior to admission for LE edema Improved Plan: Duplex US negative Lasix 20mg PRN 01/23: today with non-itching discoloration of top of hand; will continue monitoring documented as of this encounter (statuses as of 11/30/2023) [facility] History of Past illness Narrative* Problem Noted Date Diagnosed Date Resolved Date Sepsis 01/25/2021 02/05/2021 Overview: 01/24: Febrile, TMax 38.6, tachycardia. Pancultured 01/25: +GPC reported x2 lumens of TLH. + streptococcus Plan: Sensitivities pending Currently on cefepime (01/24-*). Repeat BC NGTD ID consulted for treatment recs Neutropenic fever (HCC) 01/24/202101/09 Overview: 01/24 1500 patient with first neutropenic fever Plan; - see streptococcal bacteremia - Cefepime (01/24-*) Acute esophagitis 01/22/2021 02/05/2021 Overview: starting with throat pain Plan: - pall med following - 01/26 ORCHARD HAND discontinued and home pain meds continued Continues to improve; meds to PO 01/27 Swelling of right hand 01/14/202102/05 Overview: Patient states noticing hand swelling AM of 01/14. Denies similar swelling in hands previously. Was receiving lasix prior to admission for LE edema Improved Plan: Duplex US negative Lasix 20mg PRN 01/23: today with non-itching discoloration of top of hand; will continue monitoring documented as of this encounter (statuses as of 11/30/2023) [facility] History of Past illness Narrative* Problem Noted Date Diagnosed Date Resolved Date Sepsis 01/25/2021 02/05/2021 Overview: 01/24: Febrile, TMax 38.6, tachycardia. Pancultured 01/25: +GPC reported x2 lumens of TLH. + streptococcus Plan: Sensitivities pending Currently on cefepime (01/24-*). Repeat BC NGTD ID consulted for treatment recs Neutropenic fever (HCC) 01/24/202101/09 Overview: 01/24 1500 patient with first neutropenic fever Plan; - see streptococcal bacteremia - Cefepime (01/24-*) Acute esophagitis 01/22/2021 02/05/2021 Overview: starting with throat pain Plan: - pall med following - 01/26 ORCHARD HAND discontinued and home pain meds continued Continues to improve; meds to PO /20 Swelling of right hand 01/14/202102/05 Overview: Patient states noticing hand swelling AM of 4/7. Denies similar swelling in hands previously. Was receiving lasix prior to admission for LE edema Improved Plan: Duplex US negative Lasix 20mg PRN 01/23: today with non-itching discoloration of top of hand; will continue monitoring documented as of this encounter (statuses as of 12/01/2023) [facility] History of Past illness Narrative* Problem Noted Date Diagnosed Date Resolved Date Sepsis 01/25/2021 02/05/2021 Overview: 01/24: Febrile, TMax 38.6, tachycardia. Pancultured 01/25: +GPC reported x2 lumens of TLH. + streptococcus Plan: Sensitivities pending Currently on cefepime (01/24-*). Repeat BC NGTD ID consulted for treatment recs Neutropenic fever (HCC) 01/24/2021/06/2021 Overview: 01/24 1500 patient with first neutropenic fever Plan; - see streptococcal bacteremia - Cefepime (01/24-*) Acute esophagitis 01/22/2021 02/05/2021 Overview: starting with throat pain Plan: - pall med following - 01/26 ORCHARD HAND discontinued and home pain meds continued Continues to improve; meds to PO /20 Swelling of right hand 01/14/202102/05 Overview: Patient states noticing hand swelling AM of 47. Denies similar swelling in hands previously. Was receiving lasix prior to admission for LE edema Improved Plan: Duplex US negative Lasix 20mg PRN 01/23: today with non-itching discoloration of top of hand; will continue monitoring documented as of this encounter (statuses as of 12/07/2023) [facility] History of Past illness Narrative* Problem Noted Date Diagnosed Date Resolved Date Sepsis 01/25/2021 02/05/2021 Overview: 01/24: Febrile, TMax 38.6, tachycardia. Pancultured 01/25: +GPC reported x2 lumens of TLH. + streptococcus Plan: Sensitivities pending Currently on cefepime (01/24-*). Repeat BC NGTD ID consulted for treatment recs Neutropenic fever (HCC) 01/24/202101/09 Overview: 01/24 1500 patient with first neutropenic fever Plan; - see streptococcal bacteremia - Cefepime (01/24-*) Acute esophagitis 01/22/2021 02/05/2021 Overview: starting with throat pain -06/19 Plan: - pall med following - 01/26 ORCHARD HAND discontinued and home pain meds continued Continues to improve; meds to PO 01/27 Swelling of right hand 01/14/202102/05 Overview: Patient states noticing hand swelling AM of 01/14. Denies similar swelling in hands previously. Was receiving lasix prior to admission for LE edema Improved Plan: Duplex US negative Lasix 20mg PRN 01/23: today with non-itching discoloration of top of hand; will continue monitoring documented as of this encounter (statuses as of 12/08/2023) [facility] History of Past illness Narrative* Problem Noted Date Diagnosed Date Resolved Date Sepsis 01/25/2021 02/05/2021 Overview: 01/24: Febrile, TMax 38.6, tachycardia. Pancultured 01/25: +GPC reported x2 lumens of TLH. + streptococcus Plan: Sensitivities pending Currently on cefepime (01/24-*). Repeat BC NGTD ID consulted for treatment recs Neutropenic fever (HCC) 01/24/202101/09 Overview: 01/24 1500 patient with first neutropenic fever Plan; - see streptococcal bacteremia - Cefepime (01/24-*) Acute esophagitis 01/22/2021 02/05/2021 Overview: starting with throat pain Plan: - pall med following - 01/26 ORCHARD HAND discontinued and home pain meds continued Continues to improve; meds to PO 01/27 Swelling of right hand 01/14/202102/05 Overview: Patient states noticing hand swelling AM of 01/14. Denies similar swelling in hands previously. Was receiving lasix prior to admission for LE edema Improved Plan: Duplex US negative Lasix 20mg PRN 01/23: today with non-itching discoloration of top of hand; will continue monitoring documented as of this encounter (statuses as of 12/08/2023) [facility] History of Past illness Narrative* Problem Noted Date Diagnosed Date Resolved Date Sepsis 01/25/2021 02/05/2021 Overview: 01/24: Febrile, TMax 38.6, tachycardia. Pancultured 01/25: +GPC reported x2 lumens of TLH. + streptococcus Plan: Sensitivities pending Currently on cefepime (01/24-*). Repeat BC NGTD ID consulted for treatment recs Neutropenic fever (HCC) 01/24/202101/09 Overview: 01/24 1500 patient with first neutropenic fever Plan; - see streptococcal bacteremia - Cefepime (01/24-*) Acute esophagitis 01/22/2021 02/05/2021 Overview: starting with throat pain Plan: - pall med following - 01/26 ORCHARD HAND discontinued and home pain meds continued Continues to improve; meds to PO 20 Swelling of right hand 01/14/202102/05 Overview: Patient states noticing hand swelling AM of 01/14. Denies similar swelling in hands previously. Was receiving lasix prior to admission for LE edema Improved Plan: Duplex US negative Lasix 20mg PRN 01/23: today with non-itching discoloration of top of hand; will continue monitoring documented as of this encounter (statuses as of 12/28/2023) [facility] History of Past illness Narrative* Problem Noted Date Diagnosed Date Resolved Date Sepsis 01/25/2021 02/05/2021 Overview: 01/24: Febrile, TMax 38.6, tachycardia. Pancultured 01/25: +GPC reported x2 lumens of TLH. + streptococcus Plan: Sensitivities pending Currently on cefepime (01/24-*). Repeat BC NGTD ID consulted for treatment recs Neutropenic fever (HCC) 01/24/202101/09 Overview: 01/24 1500 patient with first neutropenic fever Plan; - see streptococcal bacteremia - Cefepime (01/24-*) Acute esophagitis 01/22/2021 02/05/2021 Overview: starting with throat pain -06/19 Plan: - pall med following - 01/26 ORCHARD HAND discontinued and home pain meds continued Continues to improve; meds to PO 01/27 Swelling of right hand 01/14/202102/05 Overview: Patient states noticing hand swelling AM of 01/14. Denies similar swelling in hands previously. Was receiving lasix prior to admission for LE edema Improved Plan: Duplex US negative Lasix 20mg PRN 01/23: today with non-itching discoloration of top of hand; will continue monitoring documented as of this encounter (statuses as of 12/31/2023) [facility] History of Past illness Narrative* Problem Noted Date Diagnosed Date Resolved Date Sepsis 01/25/2021 02/05/2021 Overview: 01/24: Febrile, TMax 38.6, tachycardia. Pancultured 01/25: +GPC reported x2 lumens of TLH. + streptococcus Plan: Sensitivities pending Currently on cefepime (01/24-*). Repeat BC NGTD ID consulted for treatment recs Neutropenic fever (HCC) 01/24/202101/09 Overview: 01/24 1500 patient with first neutropenic fever Plan; - see streptococcal bacteremia - Cefepime (01/24-*) Acute esophagitis 01/22/2021 02/05/2021 Overview: starting with throat pain Plan: - pall med following - 01/26 ORCHARD HAND discontinued and home pain meds continued Continues to improve; meds to PO 01/27 Swelling of right hand 01/14/202102/05 Overview: Patient states noticing hand swelling AM of 01/14. Denies similar swelling in hands previously. Was receiving lasix prior to admission for LE edema Improved Plan: Duplex US negative Lasix 20mg PRN 01/23: today with non-itching discoloration of top of hand; will continue monitoring documented as of this encounter (statuses as of 01/02/2024) [facility] History of Past illness Narrative* Problem Noted Date Diagnosed Date Resolved Date Sepsis 01/25/2021 02/05/2021 Overview: 01/24: Febrile, TMax 38.6, tachycardia. Pancultured 01/25: +GPC reported x2 lumens of TLH. + streptococcus Plan: Sensitivities pending Currently on cefepime (01/24-*). Repeat BC NGTD ID consulted for treatment recs Neutropenic fever (HCC) 01/24/202101/09 Overview: 01/24 1500 patient with first neutropenic fever Plan; - see streptococcal bacteremia - Cefepime (01/24-*) Acute esophagitis 01/22/2021 02/05/2021 Overview: starting with throat pain Plan: - pall med following - 01/26 ORCHARD HAND discontinued and home pain meds continued Continues to improve; meds to PO 20 Swelling of right hand 01/14/202102/05 Overview: Patient states noticing hand swelling AM of 4/7. Denies similar swelling in hands previously. Was receiving lasix prior to admission for LE edema Improved Plan: Duplex US negative Lasix 20mg PRN 01/23: today with non-itching discoloration of top of hand; will continue monitoring documented as of this encounter (statuses as of 01/10/2024) [facility] History of Past illness Narrative* Problem Noted Date Diagnosed Date Resolved Date Sepsis 01/25/2021 02/05/2021 Overview: 01/24: Febrile, TMax 38.6, tachycardia. Pancultured 01/25: +GPC reported x2 lumens of TLH. + streptococcus Plan: Sensitivities pending Currently on cefepime (01/24-*). Repeat BC NGTD ID consulted for treatment recs Neutropenic fever (HCC) 01/24/202101/09 Overview: 01/24 1500 patient with first neutropenic fever Plan; - see streptococcal bacteremia - Cefepime (01/24-*) Acute esophagitis 01/22/2021 02/05/2021 Overview: starting with throat pain Plan: - pall med following - 01/26 [facility] discontinued and home pain meds continued Continues to improve; meds to PO 20 Swelling of right hand 01/14/202102/05 Overview: Patient states noticing hand swelling AM of 46. Denies similar swelling in hands previously. Was receiving lasix prior to admission for LE edema Improved Plan: Duplex US negative Lasix 20mg PRN 01/23: today with non-itching discoloration of top of hand; will continue monitoring documented as of this encounter (statuses as of 01/14/2024) [facility]04[facility] History of Past illness Narrative* Problem Noted Date Diagnosed Date Resolved Date Sepsis 01/25/2021 02/05/2021 Overview: 01/24: Febrile, TMax 38.6, tachycardia. Pancultured 01/25: +[facility] reported x2 lumens of TLH. + streptococcus Plan: Sensitivities pending Currently on cefepime (01/24-*). Repeat BC NGTD ID consulted for treatment recs Neutropenic fever (HCC) 01/24/202101/09 Overview: 01/24 1500 patient with first neutropenic fever Plan; - see streptococcal bacteremia - Cefepime (01/24-*) Acute esophagitis 01/22/2021 02/05/2021 Overview: starting with throat pain -06/19 Plan: - pall med following - 01/26 [facility] HAND discontinued and home pain meds continued Continues to improve; meds to PO 01/27 Swelling of right hand 01/14/202102/05 Overview: Patient states noticing hand swelling AM of 01/14. Denies similar swelling in hands previously. Was receiving lasix prior to admission for LE edema Improved Plan: Duplex US negative Lasix 20mg PRN 01/23: today with non-itching discoloration of top of hand; will continue monitoring documented as of this encounter (statuses as of 01/25/2024) [facility]ae [facility] Note Date/Time January 18, 2025 3:3 4pm [facility] Medical Records Department [address] [place] [address] Anesthesia Postop Eval I 01/18/25 1533 MR#: [id number] Acct: [id number] Name: ALVINO NINA Rep #:[id number] : 1965 59 From: Dae Douglas PCP: Elvi Llanes PA-C Status:REG S DC Y Race: C Location: [place] [address] Anesthesia: Postop Eval I Current Vital Signs Temperature: 97.7 F Pulse Rate: 84 Blood Pressure: 122/81 Respiratory Rate: 16 Pulse Ox: 95 Oxygen Delivery Method: Room Air Assessment Airway patent: Yes Spontaneous unlabored respirations: Yes Mental status: Awake and Calm nausea: No Vomiting: No Anesthesia Complication: No Fluid Hydration Crystalloid volume administer (ml): 30 Total IV fluid infused: 30 Progress Note Anesthesia document: Postop Eval 1 completed: Yes 01/18/25 1534 <Electronically signed by Dae Douglas > Date _ Dae Oliveiraigndaphney Signature: Date CC: ~ Signed [facility] Work Phone: Consult note Author Je Obrien [facility] Note Date/Time January 18, 2025 4:2 3pm [facility] Medical Records Department [address] [place] [id number] Anesthesia Postop Eval II 01/18/25 1534 MR#: [id number] Acct: [id number] Name: ALVINO NINA Rep #:[id number] : 1965 59 From: Je Obrien MD PCP: Elvi Llanes PA-C Status:REG S DC Y Race: C Location: [place] [address] Anesthesia Postop Eval I Sum Postop Eval Completion status Anesthesia document: Postop Eval 1 completed: Yes Anesthesia Postop Eval I Summary Anesthesia Postop Eval I Summary: Anesthesia Postop Eval I: Assessment Summary Airway patent Yes 01/18/25 15:34 [email or web address] Spontaneous unlabored Yes 01/18/25 15:34 [email or web address] respirations Mental status Awake,Calm 01/18/25 15:34 [email or web address] nausea No 01/18/25 15:34 [email or web address] Vomiting No 01/18/25 15:34 [email or web address] Anesthesia Postop Eval I: Fluid Summary Crystalloid volume administer 30 01/18/25 15:34 [email or web address] (ml) Colloids volume administered ( ml) Blood Product volume administered (ml) Total IV fluid infused 30 01/18/25 15:34 [email or web address] Anesthesia Postop Eval I: Summary Notes Anesthesia Complication No 01/18/25 15:34 [email or web address] Anesthesia Complication Comment: Post-operative progress note Anesthesia: Postop Eval II Evaluation Mental status: Awake Pain Level: 0 nausea: No Vomiting: No 01/18/25 1534 <Electronically signed by Je Obrien MD > Date _ Je Obrien MD Cosigner Signature: Date CC: ~ Signed [facility] Work Phone: Evaluation note* Diagnosis Vestibular dizziness- Primary Unspecified vertiginous syndromes and labyrinthine disorders [facility] Multiple myeloma not having achieved remission (HCC) Multiple myeloma, without mention of having achieved remission [facility] myeloma not having achieved remission (HCC) Multiple myeloma, without mention of having achieved remission [facility] Diagnosis Multiple myeloma not having achieved remission (HCC)- Primary Multiple myeloma, without mention of having achieved remission Chronic bilateral low back pain without sciatica [facility] Diagnosis S/P autologous bone marrow transplantation (HCC)- Primary Bone marrow replaced by transplant Multiple myeloma in remission (HCC) Multiple myeloma in remission [facility] Multiple myeloma not having achieved remission (HCC) Multiple myeloma, without mention of having achieved remission [facility] Diagnosis Multiple myeloma in remission (HCC)- Primary Multiple myeloma in remission [facility] Diagnosis Multiple myeloma not having achieved remission (HCC)- Primary Multiple myeloma, without mention of having achieved remission [facility] Diagnosis Multiple myeloma not having achieved remission (HCC) Multiple myeloma, without mention of having achieved remission [facility]* Diagnosis Onset Date Resolution Status Sprain of right thumb acute Upper respiratory infection noneactive 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 health 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 Multiple myeloma chronic [facility] Work Phone: Evaluation note* Diagnosis Onset Date Resolution Status Upper respiratory infection noneactive 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 health care 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 te Multiple myeloma [facility] Work Phone: Evaluation note* Diagnosis Multiple myeloma not having achieved remission (HCC) Multiple myeloma, without mention of having achieved remission [facility] Multiple myeloma in remission (HCC)- Primary Multiple myeloma in remission Chronic bilateral low back pain without sciatica [facility] Diagnosis Multiple myeloma in remission (HCC)- Primary Multiple myeloma in remission Cancer related pain Neoplasm related pain (acute) (chronic) Closed compression fracture of lumbosacral spine with routine healing, subsequent encounter Compression fracture of thoracic vertebra, unspecified thoracic vertebral level, sequela [facility] Multiple myeloma in remission (HCC) Multiple myeloma in remission Cancer related pain Neoplasm related pain (acute) (chronic) Closed compression fracture of lumbosacral spine with routine healing, subsequent encounter Compression fracture of thoracic vertebra, unspecified thoracic vertebral level, sequela [facility] Diagnosis Multiple myeloma not having achieved remission (HCC) Multiple myeloma, without mention of having achieved remission [facility] Diagnosis Multiple myeloma not having achieved remission (HCC) Multiple myeloma, without mention of having achieved remission [facility] Diagnosis Multiple myeloma not having achieved remission (HCC) Multiple myeloma, without mention of having achieved remission [facility] Diagnosis Multiple myeloma in remission (HCC)- Primary Multiple myeloma in remission [facility] Diagnosis Multiple myeloma in remission (HCC)- Primary Multiple myeloma in remission S/P autologous bone marrow transplantation (HCC) Bone marrow replaced by transplant Solitary plasmacytoma, unspecified whether remission achieved (HCC) [facility] Diagnosis Multiple myeloma in remission (HCC) Multiple myeloma in remission Liver mass Unspecified disorder of liver [facility] Diagnosis Multiple myeloma in remission (HCC)- Primary Multiple myeloma in remission Acute gastritis without hemorrhage, unspecified gastritis type History of kidney cancer Personal history of malignant neoplasm of kidney Cyst of right kidney 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 Cyst and pseudocyst of pancreas Abnormal LFTs Other abnormal blood chemistry History of pancreatitis Personal history of other diseases of digestive system [facility] Diagnosis Chronic biliary pancreatitis (HCC)- Primary Multiple myeloma in remission (HCC) Multiple myeloma in remission [facility] Diagnosis Multiple myeloma not having achieved remission (HCC) Multiple myeloma, without mention of having achieved remission [facility] Diagnosis Abdominal bloating- Primary Flatulence, eructation, and gas pain Epigastric pain Abdominal pain, epigastric Nausea Nausea alone [facility] Diagnosis Multiple myeloma not having achieved remission (HCC) Multiple myeloma, without mention of having achieved remission [facility] Diagnosis Multiple myeloma not having achieved remission (HCC) Multiple myeloma, without mention of having achieved remission [facility] Diagnosis Multiple myeloma in remission (HCC)- Primary Multiple myeloma in remission [facility]* Diagnosis Multiple myeloma in remission (HCC)- Primary Multiple myeloma in remission Chronic bilateral low back pain without sciatica [facility]* Diagnosis Multiple myeloma in remission (HCC)- Primary Multiple myeloma in remission [facility]* Diagnosis Multiple myeloma not having achieved remission (HCC) Multiple myeloma, without mention of having achieved remission [facility] Diagnosis Thunderclap headache- Primary Headache [facility] Diagnosis Nausea Nausea alone [facility] Diagnosis Diarrhea, unspecified type- Primary Multiple myeloma, without mention of having achieved remission (HCC) Multiple myeloma, without mention of having achieved remission Epigastric pain Abdominal pain, epigastric [facility]* Diagnosis Cyst of right kidney Unspecified congenital cystic kidney disease [facility]* Diagnosis Multiple myeloma in remission (HCC)- Primary Multiple myeloma in remission S/P autologous bone marrow transplantation (HCC) Bone marrow replaced by transplant [facility] Diagnosis Multiple myeloma not having achieved remission (HCC) Multiple myeloma, without mention of having achieved remission [facility] Diagnosis Multiple myeloma not having achieved remission (HCC) Multiple myeloma, without mention of having achieved remission [facility] Diagnosis Pancreatic cyst- Primary Cyst and pseudocyst of pancreas Multiple myeloma in remission (HCC) Multiple myeloma in remission Early satiety [facility] Diagnosis Multiple myeloma in remission (HCC) Multiple myeloma in remission [facility] Diagnosis Multiple myeloma not having achieved remission (HCC) Multiple myeloma, without mention of having achieved remission [facility] Diagnosis Early satiety [facility]* Diagnosis Pancreatic cyst Cyst and pseudocyst of pancreas [facility]* Diagnosis Multiple myeloma not having achieved remission (HCC) Multiple myeloma, without mention of having achieved remission [facility]* Diagnosis Multiple myeloma in remission (HCC)- Primary Multiple myeloma in remission [facility]* Diagnosis Multiple myeloma, remission status unspecified (HCC)- Primary [facility]* Diagnosis Multiple myeloma in remission (HCC)- Primary Multiple myeloma in remission [facility]* Diagnosis Multiple myeloma in remission (HCC)- Primary Multiple myeloma in remission [facility]* Diagnosis Multiple myeloma in remission (HCC)- Primary Multiple myeloma in remission [facility] Diagnosis Multiple myeloma in remission (HCC)- Primary Multiple myeloma in remission [facility]* Diagnosis Multiple myeloma not having achieved remission (HCC)- Primary Multiple myeloma, without mention of having achieved remission 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 behavior of plasma cells Compression fracture of thoracic vertebra, unspecified thoracic vertebral level, sequela New daily persistent headache Pathological fracture, other site, initial encounter for fracture [facility] Diagnosis Multiple myeloma not having achieved remission (HCC)- Primary Multiple myeloma, without mention of having achieved remission [facility]* Diagnosis Multiple myeloma not having achieved remission (HCC)- Primary Multiple myeloma, without mention of having achieved remission [facility]* Diagnosis Multiple myeloma not having achieved remission (HCC) Multiple myeloma, without mention of having achieved remission 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 behavior of plasma cells Compression fracture of thoracic vertebra, unspecified thoracic vertebral level, sequela New daily persistent headache Pathological fracture, other site, initial encounter for fracture [facility] Diagnosis Multiple myeloma not having achieved remission (HCC) Multiple myeloma, without mention of having achieved remission 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 behavior of plasma cells Compression fracture of thoracic vertebra, unspecified thoracic vertebral level, sequela New daily persistent headache Pathological fracture, other site, initial encounter for fracture [facility] Diagnosis Multiple myeloma not having achieved remission (HCC) Multiple myeloma, without mention of having achieved remission 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 behavior of plasma cells Compression fracture of thoracic vertebra, unspecified thoracic vertebral level, sequela New daily persistent headache Pathological fracture, other site, initial encounter for fracture [facility]* Diagnosis Multiple myeloma not having achieved remission (HCC)- Primary Multiple myeloma, without mention of having achieved remission Chronic midline low back pain with left-sided sciatica [facility]* Diagnosis Low iron- Primary Iron deficiency anemia, unspecified [facility]* Diagnosis Multiple myeloma, remission status unspecified (HCC)- Primary [facility]* Diagnosis Multiple myeloma not having achieved remission (HCC) Multiple myeloma, without mention of having achieved remission [facility]* Diagnosis Multiple myeloma in remission (HCC)- Primary Multiple myeloma in remission S/P autologous bone marrow transplantation (HCC) Bone marrow replaced by transplant Thyroid nodule Nontoxic uninodular goiter [facility] Diagnosis Thyroid nodule Nontoxic uninodular goiter [facility] Diagnosis Uninodular goiter- Primary Nontoxic uninodular goiter [facility]* Diagnosis Uninodular goiter- Primary Nontoxic uninodular goiter [facility] Diagnosis Multiple myeloma in remission (HCC)- Primary Multiple myeloma in remission [facility] Diagnosis Multiple myeloma not having achieved remission (HCC)- Primary Multiple myeloma, without mention of having achieved remission [facility] Diagnosis Multiple myeloma not having achieved remission (HCC)- Primary Multiple myeloma, without mention of having achieved remission [facility] Diagnosis Multiple myeloma not having achieved remission (HCC) Multiple myeloma, without mention of having achieved remission [facility] Diagnosis Cancer related pain- Primary Neoplasm related pain (acute) (chronic) Compression fracture of thoracic vertebra, unspecified thoracic vertebral level, sequela Pathological fracture, other site, initial encounter for fracture [facility] Diagnosis Cancer related pain Neoplasm related pain (acute) (chronic) Compression fracture of thoracic vertebra, unspecified thoracic vertebral level, sequela Pathological fracture, other site, initial encounter for fracture [facility]* Diagnosis Pathological fracture, other site, initial encounter for fracture [facility] Diagnosis Multiple myeloma not having achieved remission (HCC) Multiple myeloma, without mention of having achieved remission [facility] Diagnosis Onset Date Resolution Status Admit Date Intractable nausea acute December 18, 2024 9:47pm [facility] Work Phone: Evaluation note* Diagnosis Malaise and fatigue Other malaise and fatigue [facility] Diagnosis Multiple myeloma not having achieved remission (HCC)- Primary Multiple myeloma, without mention of having achieved remission Malaise and fatigue Other malaise and fatigue [facility] Diagnosis Encounter for education- Primary Counseling NOS [facility]* Diagnosis Multiple myeloma not having achieved remission (HCC)- Primary Multiple myeloma, without mention of having achieved remission Multiple myeloma not having achieved remission (HCC) Multiple myeloma, without mention of having achieved remission [facility] Diagnosis Multiple myeloma not having achieved remission (HCC)- Primary Multiple myeloma, without mention of having achieved remission [facility] Diagnosis Multiple myeloma not having achieved remission (HCC)- Primary Multiple myeloma, without mention of having achieved remission [facility]* Diagnosis Multiple myeloma not having achieved remission (HCC)- Primary Multiple myeloma, without mention of having achieved remission Chemotherapy induced nausea and vomiting Nausea with vomiting [facility]* Diagnosis Multiple myeloma not having achieved remission (HCC)- Primary Multiple myeloma, without mention of having achieved remission Chemotherapy induced nausea and vomiting Nausea with vomiting [facility]* Diagnosis Multiple myeloma not having achieved remission (HCC)- Primary Multiple myeloma, without mention of having achieved remission Chemotherapy induced nausea and vomiting Nausea with vomiting [facility]* Diagnosis Multiple myeloma not having achieved remission (HCC)- Primary Multiple myeloma, without mention of having achieved remission Chemotherapy induced nausea and vomiting Nausea with vomiting [facility]* Diagnosis Chemotherapy induced nausea and vomiting- Primary Nausea with vomiting Multiple myeloma not having achieved remission (HCC) Multiple myeloma, without mention of having achieved remission [facility]* Diagnosis Multiple myeloma not having achieved remission (HCC)- Primary Multiple myeloma, without mention of having achieved remission Chemotherapy induced nausea and vomiting Nausea with vomiting [facility]* Diagnosis Multiple myeloma not having achieved remission (HCC) Multiple myeloma, without mention of having achieved remission [facility]* Diagnosis Multiple myeloma not having achieved remission (HCC)- Primary Multiple myeloma, without mention of having achieved remission Acute bronchitis, unspecified organism Other pneumonia, unspecified organism [facility]* Diagnosis Multiple myeloma not having achieved remission (HCC)- Primary Multiple myeloma, without mention of having achieved remission Chemotherapy induced nausea and vomiting Nausea with vomiting Other pneumonia, unspecified organism [facility]* Diagnosis Multiple myeloma not having achieved remission (HCC)- Primary Multiple myeloma, without mention of having achieved remission Chemotherapy induced nausea and vomiting Nausea with vomiting [facility]* Diagnosis Multiple myeloma not having achieved remission (HCC)- Primary Multiple myeloma, without mention of having achieved remission Chemotherapy induced nausea and vomiting Nausea with vomiting [facility]* Diagnosis Multiple myeloma not having achieved remission (HCC)- Primary Multiple myeloma, without mention of having achieved remission Chemotherapy induced nausea and vomiting Nausea with vomiting [facility]* Diagnosis Multiple myeloma not having achieved remission (HCC) Multiple myeloma, without mention of having achieved remission [facility] Multiple myeloma not having achieved remission (HCC)- Primary Multiple myeloma, without mention of having achieved remission Chemotherapy induced nausea and vomiting Nausea with vomiting [facility] Diagnosis Multiple myeloma not having achieved remission (HCC) Multiple myeloma, without mention of having achieved remission [facility] Diagnosis Multiple myeloma not having achieved remission (HCC)- Primary Multiple myeloma, without mention of having achieved remission Chemotherapy induced nausea and vomiting Nausea with vomiting [facility] Diagnosis Multiple myeloma not having achieved remission (HCC)- Primary Multiple myeloma, without mention of having achieved remission Chemotherapy induced nausea and vomiting Nausea with vomiting [facility] Diagnosis Multiple myeloma not having achieved remission (HCC)- Primary Multiple myeloma, without mention of having achieved remission Chemotherapy induced nausea and vomiting Nausea with vomiting [facility]* Diagnosis Pancytopenia due to chemotherapy- Primary Antineoplastic chemotherapy induced pancytopenia Multiple myeloma not having achieved remission (HCC) Multiple myeloma, without mention of having achieved remission Chemotherapy induced nausea and vomiting Nausea with vomiting [facility]* Diagnosis Multiple myeloma not having achieved remission (HCC)- Primary Multiple myeloma, without mention of having achieved remission [facility] Diagnosis Multiple myeloma not having achieved remission (HCC)- Primary Multiple myeloma, without mention of having achieved remission Chemotherapy induced nausea and vomiting Nausea with vomiting [facility]* Diagnosis Multiple myeloma not having achieved remission (HCC)- Primary Multiple myeloma, without mention of having achieved remission Chemotherapy induced nausea and vomiting Nausea with vomiting [facility]* Diagnosis Multiple myeloma not having achieved remission (HCC)- Primary Multiple myeloma, without mention of having achieved remission Chemotherapy induced nausea and vomiting Nausea with vomiting [facility]* Diagnosis Multiple myeloma not having achieved remission (HCC)- Primary Multiple myeloma, without mention of having achieved remission Chemotherapy induced nausea and vomiting Nausea with vomiting [facility]* Diagnosis Multiple myeloma not having achieved remission (HCC)- Primary Multiple myeloma, without mention of having achieved remission Multiple myeloma not having achieved remission (HCC)- Primary Multiple myeloma, without mention of having achieved remission [facility]* Diagnosis Multiple myeloma not having achieved remission (HCC)- Primary Multiple myeloma, without mention of having achieved remission [facility]* Diagnosis Multiple myeloma not having achieved remission (HCC)- Primary Multiple myeloma, without mention of having achieved remission [facility]* Diagnosis Multiple myeloma not having achieved remission (HCC)- Primary Multiple myeloma, without mention of having achieved remission [facility]* Diagnosis Multiple myeloma not having achieved remission (HCC)- Primary Multiple myeloma, without mention of having achieved remission Chemotherapy induced nausea and vomiting Nausea with vomiting [facility]* Diagnosis Multiple myeloma not having achieved remission (HCC)- Primary Multiple myeloma, without mention of having achieved remission Chemotherapy induced nausea and vomiting Nausea with vomiting [facility]* Diagnosis Multiple myeloma not having achieved remission (HCC) Multiple myeloma, without mention of having achieved remission [facility]* Diagnosis Multiple myeloma not having achieved remission (HCC)- Primary Multiple myeloma, without mention of having achieved remission Chemotherapy induced nausea and vomiting Nausea with vomiting [facility]* Diagnosis Multiple myeloma not having achieved remission (HCC)- Primary Multiple myeloma, without mention of having achieved remission Chemotherapy induced nausea and vomiting Nausea with vomiting [facility]* Diagnosis Multiple myeloma not having achieved remission (HCC)- Primary Multiple myeloma, without mention of having achieved remission Chemotherapy induced nausea and vomiting Nausea with vomiting [facility]* Diagnosis Multiple myeloma not having achieved remission (HCC) Multiple myeloma, without mention of having achieved remission [facility]* Diagnosis Multiple myeloma not having achieved remission (HCC) Multiple myeloma, without mention of having achieved remission [facility]* Diagnosis Chemotherapy induced nausea and vomiting- Primary Nausea with vomiting Multiple myeloma not having achieved remission (HCC) Multiple myeloma, without mention of having achieved remission [facility]* Diagnosis Multiple myeloma not having achieved remission (HCC)- Primary Multiple myeloma, without mention of having achieved remission [facility]* Diagnosis Multiple myeloma not having achieved remission (HCC)- Primary Multiple myeloma, without mention of having achieved remission Chemotherapy induced nausea and vomiting Nausea with vomiting [facility]* Diagnosis Multiple myeloma not having achieved remission (HCC) Multiple myeloma, without mention of having achieved remission Acute midline low back pain without sciatica [facility]* Diagnosis Multiple myeloma not having achieved remission (HCC)- Primary Multiple myeloma, without mention of having achieved remission Chemotherapy induced nausea and vomiting Nausea with vomiting [facility]* Diagnosis Multiple myeloma not having achieved remission (HCC) Multiple myeloma, without mention of having achieved remission Compression fracture of thoracic vertebra, unspecified thoracic vertebral level, sequela [facility]* Diagnosis Multiple myeloma not having achieved remission (HCC) Multiple myeloma, without mention of having achieved remission Compression fracture of thoracic vertebra, unspecified thoracic vertebral level, sequela [facility]* Diagnosis Multiple myeloma not having achieved remission (HCC)- Primary Multiple myeloma, without mention of having achieved remission Chemotherapy induced nausea and vomiting Nausea with vomiting [facility]* Diagnosis Multiple myeloma not having achieved remission (HCC)- Primary Multiple myeloma, without mention of having achieved remission Chemotherapy induced nausea and vomiting Nausea with vomiting [facility]* Diagnosis Multiple myeloma not having achieved remission (HCC)- Primary Multiple myeloma, without mention of having achieved remission [facility]* Diagnosis Multiple myeloma not having achieved remission (HCC)- Primary Multiple myeloma, without mention of having achieved remission [facility]* Diagnosis Multiple myeloma not having achieved remission (HCC)- Primary Multiple myeloma, without mention of having achieved remission [facility]* Diagnosis Multiple myeloma not having achieved remission (HCC)- Primary Multiple myeloma, without mention of having achieved remission Chemotherapy induced nausea and vomiting Nausea with vomiting [facility]* Diagnosis Multiple myeloma not having achieved remission (HCC)- Primary Multiple myeloma, without mention of having achieved remission [facility]* Diagnosis Multiple myeloma not having achieved remission (HCC)- Primary Multiple myeloma, without mention of having achieved remission Chemotherapy induced nausea and vomiting Nausea with vomiting [facility] Diagnosis Multiple myeloma not having achieved remission (HCC)- Primary Multiple myeloma, without mention of having achieved remission [facility] Diagnosis Multiple myeloma not having achieved remission (HCC)- Primary Multiple myeloma, without mention of having achieved remission Chemotherapy induced nausea and vomiting Nausea with vomiting [facility]* Diagnosis Multiple myeloma not having achieved remission (HCC)- Primary Multiple myeloma, without mention of having achieved remission [facility]* Diagnosis Multiple myeloma not having achieved remission (HCC)- Primary Multiple myeloma, without mention of having achieved remission [facility] Diagnosis Multiple myeloma not having achieved remission (HCC) Multiple myeloma, without mention of having achieved remission [facility] Diagnosis Onset Date Resolution Status Admit Date Otitis media acute July 052024 2:47pm [facility] Work Phone: History and physical note Author Irineo Perez [facility] Note Date/Time December 18, 2024 10: 21pm [facility] Medical Records Department [address] [place] [id number] H&P Exam - Hospitalist 12/18/24 2154 MR#: [id number] Acct: [id number] Name: ALVINO NINA Rep #:[id number] : 1965 59 From: Irineo SCHULTZ PCP: Care Physician,No Primary Status :ADM GILLES Location: [place] [address] HPI - General General Date of Admission: 12/18/24 Date of Service: 12/18/24 Chief Complaint: nausea and vomiting HPI Narrative ALVINO JACKSONNUPUR, is a 59 F with pmhx of multiple myeloma pt of [facility] oncology, undergoing chemo therapy, also with hx of renal cell cancer s/p resection, anxiety and depression, chronic back pain due to multiple vertebral fractures, who presents to [facility] ER from home for intractable nausea and vomiting. Patient has chronic nausea and vomiting associated with her chemo which progressively worsened around tuesday. She presented to [facility] ER for the same on tuesday night and was kept in the ER overnight. She was treated with a zofran with some improvement in symptoms, had a CT abdomen which according to her was negative, and was sent home. She continues to have nausea and vomiting with somemidepigastric discomfort. Last vomiting was frothy, no blood or coffee grounds noted. Pt is not having diarrhea, last BM was today. Pt is taking zofran at homewith little to no improvement and has also been using medical marijuana that shewas prescribed for nausea but that did not help at all today. In the ER her labsand vitals area normal but her symptoms were unable to be controlled with zofran. She will be placed in observation overnight for symptom control. [facility] Medical History 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 health care History of pneumococcal infection Headache, migraine Carpal tunnel syndrome history of bone fracture Back problem Arthritis Seasonal allergies Endometriosis Screening for intestinal cancer Iron deficiency anemia Renal cell cancer Former tobacco use Obesity Pancreatitis URI, acute History of nausea and vomiting History of abdominal pain Home Medications ?Medication ?Instructions ?Recorded ?Last Taken ?Type menthol 0.44 %-zinc oxide 20.6 % 1 applic topical 0600 ,1800 07/22/20 Unknown Rx topical ointment lorazepam 0.5 mg tablet 0.5 mg PO TID PRN 04/23/21 U nknown History escitalopram oxalate 10 mg tablet 20 mg PO DAILY 07/26 Unknown History furosemide 40 mg tablet 40 mg PO .prn 07/26/22 Unkno wn History glucosamine sulf dipot 1 cap PO 07/26/22 Unknown Hi story chlr,msm,chond 550 mg-C 30 mg-rika 1 mg capsule (Glucosamine Chondroitin) olanzapine 5 mg tablet 5 mg PO DAILY 07/26/22 Unkno wn History Lactobacillus acidophilus 1 1,000 mmu cells PO DAILY # 30 caps 08/19/23 Unknown Rx billion cell capsule (Probiotic Gold Acidophilus) benzonatate 200 mg capsule 200 mg PO TID PRN cough #14 caps 11/14/23 Unknown Rx levofloxacin 500 mg tablet 500 mg PO DAILY #10 tabs Unknown Rx buspirone 7.5 mg tablet 7.5 mg PO 3XD 12/18/24 Unkno wn History fentanyl 25 mcg/hr transdermal 1 patch transdermal Q3D 12/18/24 Unknown History patch meclizine 25 mg tablet 25 mg PO TID 12/18/24 Unknow n History omeprazole 40 mg capsule,delayed 40 mg PO DAILY Unknown History release ondansetron HCl 8 mg tablet 4 mg PO 4X/DAY PRN PRN rachel sea 12/18/24 Unknown History scopolamine base 1 mg over 3 days topical 12/18/24 Unk nown History transdermal patch Allergy/AdvReac Type Severity Reaction Status Date / Time latex Allergy Mild rash Verified 12/18/24 16:54 Penicillins Allergy Unknown Verified 12/18/24 16:54 adhesive tape AdvReac Rash Verified 12/18/24 16:54 Family History Brother Asthma Malignant hyperthermia due to anesthesia Hypertension Grandfather Colon cancer Mother Heart disease Thyroid disorder COPD (chronic obstructive pulmonary disease) Arthritis Anemia Sister Breast cancer Hypertension Thyroid disorder Hypothyroid Arthritis Father Bleeding disorder Cancer Lung Myelodysplastic syndrome Chronic lymphocytic leukemia Alcohol abuse Aunt Myocardial infarction Surgical History History of back surgery s/p kidney cancer Status post endometrial ablation Social History household members: children Smoking Status: Former smoker alcohol intake: current alcohol intake frequency: holidays/special occasions only what type of physical activity do you participate in: walking, bicycling, aerobics and weight training do you feel safe at home: Yes ROS Constitutional Constitutional: Reports anorexia; Denies chills, fatigue or fever(s) ENT HEENT: Denies abnormal hearing, ear pain or epistaxis Cardiovascular Cardiovascular: Denies chest pain, dyspnea on exertion or edema Respiratory/Chest Respiratory/Chest: Denies cough, dyspnea or hemoptysis Gastrointestinal Gastrointestinal: Reports abdominal pain, nausea and vomiting; Denies diarrhea, hematemesis or hematochezia Genitourinary Genitourinary: Denies burning urination, difficulty urinating or dysuria Musculoskeletal Musculoskeletal: Reports back pain Neurologic Neurologic: Denies abnormal gait Psychiatric Psychiatric: Denies anxiety or depression Endocrine Endocrinology: Denies change in body appearance Hematologic/Lymphatic Hematologic/Lymphatic: Denies anemia Allergic/Immunologic Allergic/Immunologic: Denies rhinitis Vital Signs Vital Signs Vital Signs: 12/18/24 16:54 12/18/24 18:53 12/18/24 20:00 Temperature 97.7 F L Temperature Source Oral Pulse Rate 85 72 75 Respiratory Rate 22 H 18 18 Blood Pressure 173/95 H 143/114 H Blood Pressure Mean 121 123 Pulse Ox 100 98 100 Oxygen Delivery Method Room Air Room Air Room Air 12/18/24 21:35 Temperature 98 F Temperature Source Pulse Rate 72 Respiratory Rate 16 Blood Pressure 159/84 H Blood Pressure Mean 109 Pulse Ox 100 Oxygen Delivery Method Weight Weight: 91.5 kg Body Mass Index (BMI) 33.5 Physical Exam Const alert and oriented x3 Constitutional Narrative: frankly nauseous General Appearance: cooperative HEENT normocephalic and head/scalp atraumatic Eyes PERRL Neck no lymphadenopathy Resp normal respiratory effort Cardio regular rate and regular rhythm GI normal to inspection, nondistended, normoactive bowel sounds, soft to palpation,non-tender and non-distended Extremity normal to inspection, full ROM and no clubbing, cyanosis or edema Neuro oriented x3 Psych affect normal Results Lab / Micro Data 12/18/24 17:43 12/18/24 17:43 Labs: Laboratory Results - last 24 hr 12/18/24 17:43: WBC 4.7, RBC 4.23, Hgb 12.8, Hct 37.8, MCV 89.4, MCH 30.3, MCHC 33.9, RDW Std Deviation 38.3, RDW Coeff of Marcia 11.8, Plt Count 190, MPV 9.6, Immature Gran % (Auto) 0.400, Neut % (Auto) 69.8, Lymph % (Auto) 12.7 L, [place] % (Auto) 14.4 H, Eos % (Auto) 0.6, Baso % (Auto) 2.1 H, Absolute Neuts (auto) 3.3,Absolute Lymphs (auto) 0.60 L, Nucleated RBC % 0, Sodium 142, Potassium 3.9, Chloride 105, Carbon Dioxide 23.7, Anion Gap 13, BUN 14, Creatinine 0.86, Estim Creat Clear Calc 77.75, Est GFR (MDRD) Non-Af 78, BUN/Creatinine Ratio 16.0, Glucose 114 H, Calcium 9.6, Total Bilirubin 0.52, AST 28, ALT 17, Alkaline Phosphatase 60, Total Protein 6.7, Albumin 4.2, Globulin 2.6, Albumin/Globulin Ratio 1.6, Lipase 27 Assessment & Plan Assessment/Plan (1) Intractable nausea: PLAN: 1. Intractable nausea and vomiting 2/2 chemotherapy for multiple myeloma -chrnoic but worsening since around tuesday with presentation to [facility] ER Tuesday night and subsequent discharge home with failure of outpatient therapy with zofran and medical marijuana. In the ER today she continues to not have improvement with zofran. Also administered reglan x 1. Labs are unremarkable. Had CT abdomen at [facility] ER which was reportedly normal on tuesday so will defer further imaging at this time. She has developed some upper abdominal discomfort since vomiting today, no blood in vomit or coffee ground emesis. Pt will be placed on IV fluids, with zofran, reglan, and scopolamine. Pt NPO at this time if symptoms improved may attempt to advance in the AM. Continue home PPI. 2. Chronic severe back pain 2/2 approx 10-12x vertebral fractures 2/2 multiple myeloma - continue duragesic patch 3. anx/dep/mood disorder - resume home meds when appropriate (buspirone, lexapro, olanzapine) 4. Hx renal cell cancer s/p resection DVT ppx: lovenox This patient was seen by Irineo Perez PA-C under the supervision of Doctor Watkins. 12/18/242220 <Electronically signed by Irineo SCHULTZ> Cosigner Signature (if applicable): CC: MARION Encarnacion; No Primary Care Physician~ Signed [facility] Work Phone: History and physical note Author Celso Friend [facility] Note Date/Time January 18, 2025 2:5 6pm [facility] Medical Records Department [address] [place] [address] History & Physical Exam 01/18/25 1454 MR#: [id number] Acct: [id number] Name: ALVINO NINA Rep #:[id number] : 1965 59 From: Celso Hernández DO PCP: Elvi Llanes PA-C Status:REG S DC Location: [place] [address] HPI - General General Date of Admission: 01/18/25 Date of Service: 01/18/25 Chief Complaint: Intractable nausea vomiting HPI Narrative ALVINO NINA, is a 59 F who presentsAURA NINA, is a 59 F who presents to the office today for f/u. [facility] admission12.18.24-12.23.24 with intractable n/v. Hx of multiple myeloma currently getting chemotherapy for 3 weeks and then one week off. Pt using medical marijuana for n/v. One day prior to symptoms onset she took off her fentanyl patch. GES and Abd/pelvis CT were normal. Ultimately discharged OV 12.26.24 Pt continues to have nausea. Her vomiting has subsided while being onzofran, haldol and reglan. She does not feel like this is related to her chemotherapy. She feels awful during her off weeks as well. She does use medicalmarijuana on occasion for nausea but it does not always help. She endorses a family hx of gallbladder issues. She did have a gallbladder US done at [place] about a month ago but it was not a good study due to bowel gas. SHe has had a recent HIDA scan with a 45% EF. Last EGD was about 5 years ago. She has not beenable to eat much for the past couple of weeks. She is able to keep cottage cheese, yogurt and grilled chicken done. Pt also has complaints of worsening diarrhea over the past few weeks. Stool testing in the hospital was positive PCRfor c.dif and antigen positive. [facility] Medical History Post-menopausal Cancer Depression Anxiety Walker as ambulation aid Anemia Back pain Injury of head and neck Gastric reflux Leg cramps 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 health care History of pneumococcal infection Headache, migraine Carpal tunnel syndrome history of bone fracture Back problem Arthritis Seasonal allergies Endometriosis Screening for intestinal cancer Iron deficiency anemia Renal cell cancer Former tobacco use Obesity Pancreatitis URI, acute History of nausea and vomiting History of abdominal pain Home Medications ?Medication ?Instructions ?Recorded ?Last Taken ?Type scopolamine base 1 mg over 3 days 1 patch topical Q72H 12/18/24 Unknown History transdermal patch escitalopram oxalate 10 mg tablet 10 mg PO DAILY 01/14 Unknown History omeprazole 40 mg capsule,delayed 40 mg PO DAILY Unknown History release ondansetron HCl 8 mg tablet 4 mg PO 4X/DAY PRN PRN rachel sea 01/14/25 Unknown History Allergy/AdvReac Type Severity Reaction Status Date / Time latex Allergy Mild rash Verified 01/14/25 13:11 Penicillins Allergy Unknown Verified 01/14/25 13:11 adhesive tape AdvReac Rash Verified 01/14/25 13:11 Family History Brother Asthma Malignant hyperthermia due to anesthesia Hypertension Grandfather Colon cancer Mother Heart disease Thyroid disorder COPD (chronic obstructive pulmonary disease) Arthritis Anemia Sister Breast cancer Hypertension Thyroid disorder Hypothyroid Arthritis Father Bleeding disorder Cancer Lung Myelodysplastic syndrome Chronic lymphocytic leukemia Alcohol abuse Aunt Myocardial infarction Surgical History History of esophagogastroduodenoscopy (EGD) History of back surgery s/p kidney cancer Status post endometrial ablation Social History household members: children Smoking Status: Former smoker alcohol intake: current alcohol intake frequency: holidays/special occasions only what type of physical activity do you participate in: walking, bicycling, aerobics and weight training do you feel safe at home: Yes ROS Constitutional Constitutional: Denies fatigue, fever(s), poor appetite, weight gain or weight loss Gastrointestinal Gastrointestinal: Denies belching, bloating, change in bowel habits, change in stool character, chewing difficulty, coffee ground emesis, constipation, cramping, diarrhea, dyspepsia, dysphagia, early satiety, excessive flatus, fecalincontinence, heartburn, hematemesis, hematochezia, hemorrhoids, loose stools, melena, nausea, odynophagia, rectal bleeding, tenesmus, vomiting or weight changes Vital Signs Vital Signs Vital Signs: 01/18/25 13:51 01/18/25 13:51 Temperature 98.9 F Temperature Source Temporal Pulse Rate 70 Respiratory Rate 16 Respiratory Pattern Normal Blood Pressure 165/97 H Blood Pressure Mean 119 Blood Pressure Source Monitor Blood Pressure Position Sitting Blood Pressure Location Right Arm Pulse Ox 100 Oxygen Delivery Method Room Air Weight Weight: 199 lb 15.348 oz Body Mass Index (BMI) 37.8 Physical Exam Const alert, oriented x3, no apparent distress and healthy appearing General Appearance: cooperative GI normal to inspection, nondistended, normoactive bowel sounds, soft to palpation,non-tender and non-distended Percussion: normal to percussion Rectal Exam: deferred Assessment & Plan Assessment/Plan (1) Intractable nausea: (2) Vomiting: PLAN: Assessment and Plan Assessment and Plan (1) Nausea and vomiting: Plan: This is a 59 yo female pt here today for hospital f/u for n/v. Pt has a PMHx of multiple myeloma on oral chemotherapy for weeks and off for one. Pt has been dealing with nausea since starting chemo but it has become worse. She feels worse on her weeks off and does not believe its related to chemo. She has concern for her gallbladder and did have an US done at [place] about one month ago that was normal but a poor study due to bowel gas. She will have a repeat tofurther rule gallbladder etiology out. Pt will also undergo EGD to assess her upper GI tract for inflammation. She will continue reglan and zofran. Pt had a positive c.dif PCR and positive antigen. However since she is immunocompromised and has diarrhea will treat with vancomycin 125 mg every 6 hours for 10 days. -EGD -Continue reglan and zofran -Gallbladder US -Vancomycin 125 mg every 6 hours for 10 days (2) Intractable nausea: Status: Acute Orders: Orders Gallbladder Today R11.0 - Nausea Medications: New vancomycin 125 mg PO Q6H 40 caps 1RF 10 days Changed From metoclopramide HCl 5 mg PO Q6H 14 days 56 tabs 0RF To metoclopramide HCl 5 mg PO Q6H 224 tabs 0RF 8 weeks Refilled haloperidol 0.5 mg (1/2 x 1 mg) PO TID 21 tabs 0RF 14 days 01/18/25 1456 <Electronically signed by Celso Hernández DO> Cosigner Signature (if applicable): CC: NAEEM [place]; Celso Hernández DO~ Signed [facility] Work Phone: Hospital Discharge instructionsAmbulatory Orders* CH[facility]F OF HOSPITAL MEDICINE Location: None Selected [facility] Work Phone: Hospital Discharge instructions Additional Instructions Thank you for trusting us with your care today! Please continue taking antibiotic until course is complete. please take Tylenol (2 pills, 650 mg), ibuprofen (2 pills, 400 mg) every 6 hours as needed for pain and fever control. Please return to the emergency department if your symptoms change or worsen. Please follow with your primary care physician for further outpatient evaluation and management.[facility] Work Phone: Reason for referral (narrative)* Diagnostic Procedure Only (Routine) - Authorized Specialty Diagnoses / Procedures Referred By Contac t Referred To Contact XR IMAGING Diagnoses Multiple myeloma in remission (HCC) Cancer related pain Closed compression fracture of lumbosacral spine with routine healing, subsequent encounter Compression fracture of thoracic vertebra, unspecified thoracic vertebral level, sequela Procedures XR BONE SURVEY ROUTINE RADIOLOGIC EXAMINATION OSSEOUS SURVEY COMPL Dayana Stewart MD [address] [place] [address] Xr Imaging Referral ID Status Reason Start Date Expiration Date Visits Requested Visits Authorized [id number] Authorized Auto-Generat ed Referral 10/21/2023 1 1 [facility] for referral (narrative)* Diagnostic Procedure Only (Routine) - Closed Specialty Diagnoses / Procedures [facility] Referred To Contact XR IMAGING Diagnoses Multiple myeloma in remission (HCC) Cancer related pain Closed compression fracture of lumbosacral spine with routine healing, subsequent encounter Compression fracture of thoracic vertebra, unspecified thoracic vertebral level, sequela Procedures XR BONE SURVEY ROUTINE RADIOLOGIC EXAMINATION OSSEOUS SURVEY COMPL Dayana Stewart MD [address] [place] [address] Xr Imaging Referral ID Status Reason Start Date Expiration Date V isits Requested Visits Authorized [id number] Closed Auto-Generate d Referral 09/21/2022 10/21/2023 1 1 [facility] for referral (narrative)* Diagnostic Procedure Only (Routine) - Authorized Specialty Diagnoses / Procedures [facility] Referred To Contact MOLECULAR & FUNCTIONAL IMAGING Diagnoses Nausea Procedures NM HEPATOBILIARY W EF AND/OR RX HEPATOBIL SYST IMAG INC GB W/PHARMA INTERVENJ [place], Melissa P, MD [address] [facility] [place] [place] [address] [facility] [address] [place] [address] Referral ID Status Reason Start Date Expiration Date Visits Requested Visits Authorized [id number] Authorized Auto-Generat ed Referral 03/22/2023 04/20/[address] [facility] for referral (narrative)* Diagnostic Procedure Only (Routine) - Closed Specialty Diagnoses / Procedures Referred By Zeferino t Referred To Contact MOLECULAR & FUNCTIONAL IMAGING Diagnoses Nausea Procedures NM HEPATOBILIARY W EF AND/OR RX HEPATOBIL SYST IMAG INC GB W/PHARMA Melissa Kirk MD [address] [facility] [place] [address] [facility] [address] [place] [address] Referral ID Status Reason Start Date Expiration Date V isits Requested Visits Authorized [id number] Closed Auto-Generate d Referral 03/22/2023 04/20/[address] [facility] for referral (narrative)* Outpatient Procedure (Routine) - Closed Specialty Diagnoses / Procedures Referred By Zeferino gleason Referred To Contact [facility] Diagnoses Multiple myeloma, without mention of having achieved remission (HCC) Epigastric pain Procedures EGD DIAGNOSTIC ESOPHAGOGASTRODUODENOSC OPY TRANSORAL DIAGNOSTIC Melissa Cunningham MD [address] [facility] [place] [address] [facility] [address] [place] [address] Referral ID Status Reason Start Date Expiration Date V isits Requested Visits Authorized [id number] Closed Auto-Generate d Referral 03/03/2023 03/03/[address] [facility] for referral (narrative)* Diagnostic Procedure Only (Routine) - Closed Specialty Diagnoses / Procedures [facility] Referred To Contact US IMAGING Diagnoses Cyst of right kidney Procedures US KIDNEY/BLADDER US RETROPERITONEAL REAL TIME W/IMAGE COMPLETE Jadon Styles DO [address] [place] [address] [place] [address] Referral ID Status Reason Start Date Expiration Date V isits Requested Visits Authorized [id number] Closed Auto-Generate d Referral 01/31/2023 03/01/[address] [facility] for referral (narrative)* Diagnostic Procedure Only (Routine) - Authorized Specialty Diagnoses / Procedures [facility] Referred To Contact MOLECULAR & FUNCTIONAL IMAGING Diagnoses Early satiety Procedures NM GASTRIC EMPTYING SOLID [place]STR[place] [address] [place] [address] Molecular [facility] [address] [place] [address] Referral ID Status Reason Start Date Expiration Date Visits Requested Visits Authorized [id number] Authorized Auto-Generat ed Referral 12/07/2023 01/05/2025 1 1 * Diagnostic Procedure Only (Routine) - Closed Specialty Diagnoses / Procedures [facility] Referred To Contact XR IMAGING Diagnoses Multiple myeloma in remission (HCC) Procedures XR BONE SURVEY ROUTINE RADIOLOGIC EXAMINATION [place] [address] [place] [id number] [place] [address] Referral ID Status Reason Start Date Expiration Date V isits Requested Visits Authorized [id number] Closed Auto-Generate d Referral 12/07/2023 01/05/2025 1 1 * MRI/CT (Routine) - Pending Review Specialty Diagnoses / Procedures [facility] Referred To Contact MR IMAGING Diagnoses Pancreatic cyst Procedures MRI 3D POST PROCESSING 3D RENDERING W/INTERP&POSTPROC [place] [address] [place] [address] Mr Imaging [facility] Referral ID Status Reason Start Date Expiration Date Visits Requested Visits Authorized [id number] Pending Review Auto-Generat ed Referral 12/07/2023 01/05/2025 1 1 * MRI/CT (Routine) - Authorized Specialty Diagnoses / Procedures [facility] Referred To Contact MR IMAGING Diagnoses Pancreatic cyst Procedures MRI PANC/VENANCIO WO/W IVCON MRI ABDOMEN W/O & W/[place] [address] [place] [address] Mr Imaging [place] [address] Referral ID Status Reason Start Date Expiration Date Visits Requested Visits Authorized [id number] Authorized Auto-Generat ed Referral 12/07/2023 01/05/[address] [facility] for referral (narrative)* Diagnostic Procedure Only (Routine) - Closed Specialty Diagnoses / Procedures [facility] Referred To Contact MOLECULAR & FUNCTIONAL IMAGING Diagnoses Early satiety Procedures NM GASTRIC EMPTYING SOLID GASTRIC [place] [address] [place] [address] Molecular [facility] [address] [place] [address] Referral ID Status Reason Start Date Expiration Date V isits Requested Visits Authorized [id number] Closed Auto-Generate d Referral 12/07/2023 01/05/[address] [facility] for referral (narrative)* Diagnostic Procedure Only (Routine) - New Request Specialty Diagnoses / Procedures [facility] Referred To Contact XR IMAGING Diagnoses Multiple myeloma, remission status unspecified (HCC) Procedures XR SCOLIOSIS PA STAND/LAT 2V RADEX ENTIR THRC LMBR CRV SAC SPI W/SKULL 2/3 VW Winnie Callejas PA-C [address] [place] [address] Xr Imaging [facility] Referral ID Status Reason Start Date Expiration Date Visits Requested Visits Authorized [id number] New Request Auto-Generat ed Referral 10/19/2025 1 1 [facility] for referral (narrative)* Diagnostic Procedure Only (Routine) - Authorized Specialty Diagnoses / Procedures Referred By Contac t Referred To Contact US IMAGING Diagnoses Thyroid nodule Procedures US THYROID/PARATHYROID US SOFT TISSUE HEAD & NECK REAL TIME IMGE Shay Diaz [address] [place] [address] Us Imaging [facility] Referral ID Status Reason Start Date Expiration Date Visits Requested Visits Authorized [id number] Authorized Auto-Generat ed Referral 10/11/2024 11/10/2025 1 1 [facility] for referral (narrative)* Outpatient Procedure (Routine) - New Request Specialty Diagnoses / Procedures Referred By Zeferino gleason Referred To Contact [facility] Diagnoses Multiple myeloma not having achieved remission (HCC) Procedures ECG COMPLETE ECG ROUTINE ECG W/LEAST 12 LDS W/I&R Jadon Styles DO [address] [place] [address] [facility] [address] [place] [address] Referral ID Status Reason Start Date Expiration Date Visits Requested Visits Authorized [id number] New Request Auto-Generat ed Referral 11/13/2024 11/13/[address] [facility] for referral (narrative)No reason for referral information [facility] Work Phone: Reason for visit Narrative* Diagnostic Procedure Only (Routine) - Closed Specialty Diagnoses / Procedures [facility] Referred To Contact XR IMAGING Diagnoses Multiple myeloma in remission (HCC) Cancer related pain Closed compression fracture of lumbosacral spine with routine healing, subsequent encounter Compression fracture of thoracic vertebra, unspecified thoracic vertebral level, sequela Procedures XR BONE SURVEY ROUTINE RADIOLOGIC EXAMINATION OSSEOUS SURVEY COMPL Dayana Stewart MD [address] [place] [address] Xr Imaging Referral ID Status Reason Start Date Expiration Date V isits Requested Visits Authorized [id number] Closed Auto-Generate d Referral 09/21/2022 10/21/[address] [facility] for visit Narrative* Outpatient Procedure (Routine) - Closed Specialty Diagnoses / Procedures [facility] Referred To Contact [facility] Diagnoses Multiple myeloma, without mention of having achieved remission (HCC) Epigastric pain Procedures EGD DIAGNOSTIC ESOPHAGOGASTRODUODENOSC OPY TRANSORAL DIAGNOSTIC Melissa Cunningham MD [address] [facility] [place] [address] [facility] [address] [place] [address] Referral ID Status Reason Start Date Expiration Date V isits Requested Visits Authorized [id number] Closed Auto-Generate d Referral 03/03/2023 03/03/[address] [facility] for visit Narrative* Diagnostic Procedure Only (Routine) - Closed Specialty Diagnoses / Procedures [facility] Referred To Contact XR IMAGING Diagnoses Multiple myeloma in remission (HCC) Procedures XR BONE SURVEY ROUTINE RADIOLOGIC EXAMINATION [place] [address] [place] [address] Xr Imaging [place] [address] Referral ID Status Reason Start Date Expiration Date V isits Requested Visits Authorized [id number] Closed Auto-Generate d Referral 12/07/2023 01/05/[address] [facility] for visit Narrative* Diagnostic Procedure Only (Routine) - Closed Specialty Diagnoses / Procedures [facility] Referred To Contact MOLECULAR & FUNCTIONAL IMAGING Diagnoses Multiple myeloma not having achieved remission (HCC) Procedures NM PET/CT WHOLE BODY SUBSEQUENT PET IMAGING FOR CT ATTENUATION WHOLE BODY Jadon Styles DO [address] [facility] [place] [address] Molecular [facility] Functional Imaging [address] [place] [address] Referral ID Status Reason Start Date Expiration Date V isits Requested Visits Authorized [id number] Closed Auto-Generate d Referral 09/11/2024 10/11/[address] [facility] for visit Narrative* Diagnostic Procedure Only (Routine) - Closed Specialty Diagnoses / Procedures Referred By Zefreino t Referred To Contact XR IMAGING Diagnoses Cancer related pain Compression fracture of thoracic vertebra, unspecified thoracic vertebral level, sequela Pathological fracture, other site, initial encounter for fracture Procedures XR SCOLIOSIS PA STAND/LAT 2V RADEX ENTIR THRC LMBR CRV SAC SPI W/SKULL 2/3 Anita Brannon MD [address] [place] [address] Phone: tel: fax: XR IMAGING [place] [address] Referral ID Status Reason Start Date Expiration Date V isits Requested Visits Authorized [id number] Closed Auto-Generate d Referral 12/24/2024 01/23/[address] [facility] for visit Narrative* [place] Prior Authorization (Routine) - Authorized Specialty Diagnoses / Procedures Referred By Zeferino gelason Referred To Contact Diagnoses Multiple myeloma not having achieved remission (HCC) Procedures INJ, DARATUMUMAB, HYALURONIDASE 10 MG Darzalex Jadon Styles, DO [address] [facility] [place] [address] Phone: tel: fax: Jadon Styles, DO [address] [facility] [place] [address] Phone: tel: fax: Referral ID Status Reason Start Date Expiration Date V isits Requested Visits Authorized [id number] Authorized 01/25/2025 01/17/[address] [facility] for visit Narrative* Diagnostic Procedure Only (Routine) - Closed Specialty Diagnoses / Procedures Referred By Zeferino t Referred To Contact MOLECULAR & FUNCTIONAL IMAGING Diagnoses Multiple myeloma not having achieved remission (HCC) Procedures NM PET/CT WHOLE BODY SUBSEQUENT PET IMAGING FOR CT ATTENUATION WHOLE BODY Jadon Styles, DO [address] [place] [address] Phone: tel: fax: Molecular Imaging [address] [place] [address] Phone: tel: Referral ID Status Reason Start Date Expiration Date V isits Requested Visits Authorized [id number] Closed Auto-Generate d Referral 04/02/2025 05/02/[address] [facility] for visit Narrative* MRI/CT (Urgent) - Closed Specialty Diagnoses / Procedures Referred By Contac t Referred To Contact MR IMAGING Diagnoses Multiple myeloma not having achieved remission (HCC) Acute midline low back pain without sciatica Procedures MRI LUMBAR SPINE WO/W IVCON MRI SPINAL CANAL LUMBAR W/O & W/CONTR MATRL Jadon Styles, DO [address] [place] [address] Phone: tel: fax: [place] [address] Referral ID Status Reason Start Date Expiration Date V isits Requested Visits Authorized [id number] Closed Auto-Generate d Referral 04/29/2025 05/29/[address] [facility] for visit Narrative* MRI/CT (Routine) - Closed Specialty Diagnoses / Procedures Referred By Contac t Referred To Contact MR IMAGING Diagnoses Multiple myeloma not having achieved remission (HCC) Compression fracture of thoracic vertebra, unspecified thoracic vertebral level, sequela Procedures MRI THORACIC SPINE WO/W IVCON MRI SPINAL CANAL THORACIC W/O & W/CONTR MATRL Jadon Styles, DO [address] [place] [address] Phone: tel: fax: [place] [address] Referral ID Status Reason Start Date Expiration Date V isits Requested Visits Authorized [id number] Closed Auto-Generate d Referral 05/15/2025 06/14/[address] [facility] for visit Narrative* MRI/CT (Routine) - Closed Specialty Diagnoses / Procedures Referred By Contac t Referred To Contact MR IMAGING Diagnoses Multiple myeloma not having achieved remission (HCC) Compression fracture of thoracic vertebra, unspecified thoracic vertebral level, sequela Procedures MRI CERVICAL SPINE WO/W IVCON MRI SPINAL CANAL CERVICAL W/O & W/CONTR Jadon Hendrix DO [address] [place] [address] Phone: tel: fax: [place] [address] Referral ID Status Reason Start Date Expiration Date V isits Requested Visits Authorized [id number] Closed Auto-Generate d Referral 05/15/2025 06/14/2026 1 1 [facility] Summary Purpose Family History Relationship Condition Age at Onset Recorded Date/T julio brother Asthma Unknown Malignant hyperthermia due to anesthesia Unknown Hypertension Unknown grandfather Malignant neoplasm of colon Unknown mother Cardiac disease Unknown Disorder of thyroid Unknown Chronic obstructive pulmonary disease Unk nown Arthritis Unknown Anemia Unknown sister Malignant neoplasm of breast Unknown father Hemorrhagic disorder Unknown Malignant neoplasm Unknown Myelodysplastic syndrome Unknown Chronic lymphocytic leukemia Unknown Alcohol abuse Unknown aunt Myocardial infarction Unknown Advance Directives Documents on File Type Date Recorded Patient [employer] Expl anation Advance Directive(s) 09/09/2020 6:56 PM Date Activated Date Inactivated Comments 01/14/2021 12:13 PM 01/29/2021 3:08 PM Question Answer Comments Full Code Order Discussed With: Patient Latest Code Status on File Code Status Date Activated Date Inactivated Comments Full Code 01/14/2021 12:13 PM 01/29/2021 3:08 PM Full Code Order Discussed With: Patient Documents on File Type Date Recorded Patient [employer] Expl anation Advance Directive(s) 12/30/2020 11:37 AM Advance Directive(s) 12/15/2020 12:59 PM Advance Directive(s) 10/22/2020 12:04 PM Advance Directive(s) 10/13/2020 11:43 AM Advance Directive(s) 09/09/2020 6:56 PM Advance Directive(s) 06/26/2020 3:26 PM Advance Directive Response Recorded Date/ Time Advance Directives No June 08, 2022 8:12am Living Will Yes June 08 8:12am Power of Scene And Lighting Design Lecturer Yes June 08 8:12am Advance Directive Response Recorded Date/ Time Advance Directives No June 08, 2022 7:12am Living Will Yes June 08 7:12am Power of Scene And Lighting Design Lecturer Yes June 08, 022 7:12am Documents on File Type Date Recorded Patient [employer] Expl anation Advance Directive(s) 09/09/2020 6:56 PM Latest Code Status on File Code Status Date Activated Date Inactivated Comments Full Code 01/14/2021 12:13 PM 01/29/2021 3:08 PM Latest Code Status on File Code Status Date Activated Date Inactivated Comments Full Code 01/14/2021 12:13 PM 01/29/2021 3:08 PM Question Answer Comments Full Code Order Discussed With: Patient Latest Code Status on File Code Status Date Activated Date Inactivated Comments Full Code 01/14/2021 12:13 PM 01/29/2021 3:08 PM Question Answer Comments Full Code Order Discussed With: Patient Latest Code Status on File Code Status Date Activated Date Inactivated Comments Full Code 01/14/2021 12:13 PM 01/29/2021 3:08 PM Question Answer Comments Full Code Order Discussed With: Patient Date Activated Date Inactivated Comments 01/14/2021 12:13 PM 01/29/2021 3:08 PM Question Answer Comments Full Code Order Discussed With: Patient Advance Directive Response Recorded Date/ Time Living Will No December 18, 2024 5:13pm Power of Scene And Lighting Design Lecturer No December 18 5:13pm Advance Directives No June 08, 2022 8:12am Advance Directive Response Recorded Date/ Time Living Will No December 18, 2024 10:58pm Power of Scene And Lighting Design Lecturer No December 18 10:58pm Advance Directives No June 08, 2022 8:12am Advance Directive Response Recorded Date/ Time Living Will No December 18, 2024 10:58pm Do you have a Healthcare Power of Scene And Lighting Design Lecturer? No December 18, 2024 10:58pm Advance Directives No June 08, 2022 8:12am Advance Directive Response Recorded Date/ Time Living Will No December 18, 2024 10:58pm Do you have a Healthcare Power of Scene And Lighting Design Lecturer? No December 18, 2024 10:58pm Living Will Yes January 14, 2025 10:12am Do you have a Healthcare Power of Scene And Lighting Design Lecturer? Yes January 14, 2025 10:12am Name of Medical Power of Scene And Lighting Design Lecturer SHANNAN STEF Moore January 14, 2025 10:12am Advance Directives No June 08, 2022 8:12am Advance Directive Response Recorded Date/ Time Living Will No December 18, 2024 10:58pm Do you have a Healthcare Power of Scene And Lighting Design Lecturer? No December 18, 2024 10:58pm Living Will Yes January 14, 2025 10:12am Do you have a Healthcare Power of Scene And Lighting Design Lecturer? Yes January 14, 2025 10:12am Name of Medical Power of Scene And Lighting Design Lecturer SHANNAN LOWEE R January 14, 2025 10:12am Living Will Yes January 25, 2025 5:17pm Do you have a Healthcare Power of Scene And Lighting Design Lecturer? Yes January 25, 2025 5:17pm Name of Medical Power of Scene And Lighting Design Lecturer sister January 25, 2025 5:17pm Advance Directives No June 08, 2022 8:12am Advance Directive Response Recorded Date/ Time Living Will No December 18, 2024 10:58pm Do you have a Healthcare Power of Scene And Lighting Design Lecturer? No December 18, 2024 10:58pm Living Will Yes January 14, 2025 10:12am Do you have a Healthcare Power of Scene And Lighting Design Lecturer? Yes January 14, 2025 10:12am Name of Medical Power of Scene And Lighting Design Lecturer SHANNAN LOWEE R January 14, 2025 10:12am Living Will Yes January 25, 2025 5:17pm Do you have a Healthcare Power of Scene And Lighting Design Lecturer? Yes January 25, 2025 5:17pm Name of Medical Power of Scene And Lighting Design Lecturer sister January 25, 2025 5:17pm Do you have a Healthcare Power of Scene And Lighting Design Lecturer? Yes February 18, 2025 6:48pm Advance Directives No June 08, 2022 8:12am Advance Directive Response Recorded Date/ Time Living Will Yes January 14, 2025 10:12am Do you have a Healthcare Power of Scene And Lighting Design Lecturer? Yes January 14, 2025 10:12am Name of Medical Power of Scene And Lighting Design Lecturer SHANNAN LOWEE R January 14, 2025 10:12am Living Will Yes January 25, 2025 5:17pm Do you have a Healthcare Power of Scene And Lighting Design Lecturer? Yes January 25, 2025 5:17pm Name of Medical Power of Scene And Lighting Design Lecturer sister January 25, 2025 5:17pm Do you have a Healthcare Power of Scene And Lighting Design Lecturer? Yes February 18, 2025 6:48pm Advance Directives No June 08, 2022 8:12am Advance Directive Response Recorded Date/ Time Advance Directives No June 08, 2022 8:12am Medications Administered Section Inactive Administered Medications - up to 3 most recent administrations Medication Order MAR Action Action Date Dose Rate Site zoledronic ed-dicafqlg-5.9NaCl 4 mg iv piggyback 100 mL (ZOMETA) 4 mg, INTRAVENOUS, Administer over 15 Minutes, ONCE, 1 dose, On Tue03/18/22 at 1530, Hazardous Potential Reproductive Risk Drug: Use appropriate PPE. New Bag/Syringe/Bottle 03/18/2022 3:33 PM EDT 4 mg Inactive Administered Medications - up to 3 most recent administrations Medication Order MAR Action Action Date Dose Rate Site zoledronic dq-offdjpsk-8.9NaCl 4 mg iv piggyback 100 mL (ZOMETA) 4 mg, INTRAVENOUS, Administer over 15 Minutes, ONCE, 1 dose, On Tue09/21/22 at 1030, Hazardous Potential Reproductive Risk Drug: Use appropriate PPE. New Bag/Syringe/Bottle 09/21/2022 10:30 AM EST 4 mg Inactive Administered Medications - up to 3 most recent administrations Medication Order MAR Action Action Date Dose Rate Site zoledronic bi-iloqrrwa-9.9NaCl 4 mg iv piggyback 100 mL (ZOMETA) 4 mg, INTRAVENOUS, Administer over 15 Minutes, ONCE, 1 dose, On Tue05/30/23 at 1530, Hazardous Potential Reproductive Risk Drug: Use appropriate PPE. New Bag/Syringe/Bottle 05/30/2023 3:49 PM EDT 4 mg Inactive Administered Medications - up to 3 most recent administrations Medication Order MAR Action Action Date Dose Rate Site benzocaine 20% 1 Winside (TOPEX) 1 Winside, TOPICAL, DIRECTED, Starting on Rosi 03/03/23 at 1330, Until Rosi 03/03/23 at 1729, DOSING DIRECTED BY PHYSICIAN FOR PROCEDURAL SEDATION ONLY - Pharmaceutical Waste: Aerosol -, Intraprocedure Given 03/03/2023 1:17 PM EDT 5 Sprays fentaNYL 50 mcg/mL 25-100 mcg injection (SUBLIMAZE) 25-100 mcg, INTRAVENOUS, DIRECTED, Starting on Rosi 03/03/23 at 1330, Until Rosi 03/03/23 at 1729, DOSING DIRECTED BY PHYSICIAN FOR PROCEDURAL SEDATION ONLY, Intraprocedure Given 03/03/2023 1:17 PM EDT 50 mcg lactated ringers iv infusion 30 mL/hr, INTRAVENOUS, CONTINUOUS, Starting on Rosi 03/03/23 at 1300, Until Rosi 03/03/23 at 1355, Preprocedure New Bag/Syringe/Bottle 03/03/2023 1:09 PM EDT 30 mL/hr 30 mL/hr midazolam 1-5 mg injection (VERSED) 1-5 mg, INTRAVENOUS, DIRECTED, Starting on Rosi 03/03/23 at 1330, Until Rosi 03/03/23 at 1729, DOSING DIRECTED BY PHYSICIAN FOR PROCEDURAL SEDATION ONLY, Intraprocedure Given 03/03/2023 1:17 PM EDT 3 mg Chief Complaint and Reason for Visit Chief Complaint R THUMB INJURY XRAY Sinus issues, chest congestion 1 Y FU Reason for Visit Sprain of right thum b Upper respiratory infection [facility] Multiple myeloma Chief Complaint Sinus issues, chest congestion 1 Y FU SCREENING Reason for Visit Upper respiratory in fection 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 [facility] care Multiple myeloma Chief Complaint Admit Date VERTIGO RX HERE October 15, 2024 2: 51pm INTRACTABLE NAUSEA December 18, 2024 9:4 7pm INTRACTABLE NAUSEA December 18, 2024 9:5 9pm Reason for Visit Admit Date Intractable nausea December 18, 2024 9:4 7pm Chief Complaint Admit Date VERTIGO RX HERE October 15, 2024 2: 51pm INTRACTABLE NAUSEA December 18, 2024 9:4 7pm INTRACTABLE NAUSEA December 18, 2024 9:5 9pm INTRACTABLE NAUSEA December 19, 2024 3:2 1pm INTRACTABLE NAUSEA December 20, 2024 5:2 8pm INTRACTABLE NAUSEA December 21, 2024 7:3 9am INTRACTABLE NAUSEA December 22, 2024 1:4 6pm Chief Complaint Admit Date VERTIGO RX HERE October 15, 2024 2: 51pm INTRACTABLE NAUSEA December 18, 2024 9:4 7pm INTRACTABLE NAUSEA December 18, 2024 9:5 9pm INTRACTABLE NAUSEA December 19, 2024 3:2 1pm INTRACTABLE NAUSEA December 20, 2024 5:2 8pm INTRACTABLE NAUSEA December 21, 2024 7:3 9am INTRACTABLE NAUSEA December 21, 2024 11: 07am QTC EVAL December 22, 2024 1:4 0pm INTRACTABLE NAUSEA December 22, 2024 1:4 6pm INTRACTABLE NAUSEA December 23, 2024 11: 45am Nausea/vomiting December 26, 2024 10: 49am N/V December 28, 2024 8:0 1am HYDRATION December 31, 2024 10: 49am Reason for Visit Admit Date Intractable nausea December 18, 2024 9:4 7pm Intractable nausea December 26, 2024 10: 49am Nausea and vomiting December 26, 2024 10: 49am Chief Complaint Admit Date VERTIGO RX HERE October 15, 2024 2: 51pm INTRACTABLE NAUSEA December 18, 2024 9:4 7pm INTRACTABLE NAUSEA December 18, 2024 9:5 9pm INTRACTABLE NAUSEA December 19, 2024 3:2 1pm INTRACTABLE NAUSEA December 20, 2024 5:2 8pm INTRACTABLE NAUSEA December 21, 2024 7:3 9am INTRACTABLE NAUSEA December 21, 2024 11: 07am QTC EVAL December 22, 2024 1:4 0pm INTRACTABLE NAUSEA December 22, 2024 1:4 6pm INTRACTABLE NAUSEA December 23, 2024 11: 45am Nausea/vomiting December 26, 2024 10: 49am N/V December 28, 2024 8:0 1am HYDRATION December 31, 2024 10: 49am HYDRATION January 02, 2025 11: 31am Chief Complaint Admit Date VERTIGO RX HERE October 15, 2024 2: 51pm INTRACTABLE NAUSEA December 18, 2024 9:4 7pm INTRACTABLE NAUSEA December 18, 2024 9:5 9pm INTRACTABLE NAUSEA December 19, 2024 3:2 1pm INTRACTABLE NAUSEA December 20, 2024 5:2 8pm INTRACTABLE NAUSEA December 21, 2024 7:3 9am INTRACTABLE NAUSEA December 21, 2024 11: 07am QTC EVAL December 22, 2024 1:4 0pm INTRACTABLE NAUSEA December 22, 2024 1:4 6pm INTRACTABLE NAUSEA December 23, 2024 11: 45am Nausea/vomiting December 26, 2024 10: 49am N/V December 28, 2024 8:0 1am HYDRATION December 31, 2024 10: 49am HYDRATION January 02, 2025 11: 31am HYDRATION January 07, 2025 10: 36am Chief Complaint Admit Date VERTIGO RX HERE October 15, 2024 2: 51pm INTRACTABLE NAUSEA December 18, 2024 9:4 7pm INTRACTABLE NAUSEA December 18, 2024 9:5 9pm INTRACTABLE NAUSEA December 19, 2024 3:2 1pm INTRACTABLE NAUSEA December 20, 2024 5:2 8pm INTRACTABLE NAUSEA December 21, 2024 7:3 9am INTRACTABLE NAUSEA December 21, 2024 11: 07am QTC EVAL December 22, 2024 1:4 0pm INTRACTABLE NAUSEA December 22, 2024 1:4 6pm INTRACTABLE NAUSEA December 23, 2024 11: 45am Nausea/vomiting December 26, 2024 10: 49am N/V December 28, 2024 8:0 1am HYDRATION December 31, 2024 10: 49am HYDRATION January 02, 2025 11: 31am HYDRATION January 07, 2025 10: 36am HYDRATION January 09, 2025 11:1 8am Chief Complaint Admit Date VERTIGO RX HERE October 15, 2024 2: 51pm INTRACTABLE NAUSEA December 18, 2024 9:4 7pm INTRACTABLE NAUSEA December 18, 2024 9:5 9pm INTRACTABLE NAUSEA December 19, 2024 3:2 1pm INTRACTABLE NAUSEA December 20, 2024 5:2 8pm INTRACTABLE NAUSEA December 21, 2024 7:3 9am INTRACTABLE NAUSEA December 21, 2024 11: 07am QTC EVAL December 22, 2024 1:4 0pm INTRACTABLE NAUSEA December 22, 2024 1:4 6pm INTRACTABLE NAUSEA December 23, 2024 11: 45am Nausea/vomiting December 26, 2024 10: 49am N/V December 28, 2024 8:0 1am HYDRATION December 31, 2024 10: 49am HYDRATION January 02, 2025 11: 31am HYDRATION January 07, 2025 10: 36am HYDRATION January 09, 2025 11:1 8am HYDRATION January 11, 2025 12:5 5pm HYDRATION January 14, 2025 12:4 1pm Chief Complaint Admit Date VERTIGO RX HERE October 15, 2024 2: 51pm INTRACTABLE NAUSEA December 18, 2024 9:4 7pm INTRACTABLE NAUSEA December 18, 2024 9:5 9pm INTRACTABLE NAUSEA December 19, 2024 3:2 1pm INTRACTABLE NAUSEA December 20, 2024 5:2 8pm INTRACTABLE NAUSEA December 21, 2024 7:3 9am INTRACTABLE NAUSEA December 21, 2024 11: 07am QTC EVAL December 22, 2024 1:4 0pm INTRACTABLE NAUSEA December 22, 2024 1:4 6pm INTRACTABLE NAUSEA December 23, 2024 11: 45am Nausea/vomiting December 26, 2024 10: 49am N/V December 28, 2024 8:0 1am HYDRATION December 31, 2024 10: 49am HYDRATION January 02, 2025 11: 31am HYDRATION January 07, 2025 10: 36am HYDRATION January 09, 2025 11:1 8am HYDRATION January 11, 2025 12:5 5pm HYDRATION January 14, 2025 12:4 1pm HYDRATION January 16, 2025 12:2 3pm Chief Complaint Admit Date VERTIGO RX HERE October 15, 2024 2: 51pm INTRACTABLE NAUSEA December 18, 2024 9:4 7pm INTRACTABLE NAUSEA December 18, 2024 9:5 9pm INTRACTABLE NAUSEA December 19, 2024 3:2 1pm INTRACTABLE NAUSEA December 20, 2024 5:2 8pm INTRACTABLE NAUSEA December 21, 2024 7:3 9am INTRACTABLE NAUSEA December 21, 2024 11: 07am QTC EVAL December 22, 2024 1:4 0pm INTRACTABLE NAUSEA December 22, 2024 1:4 6pm INTRACTABLE NAUSEA December 23, 2024 11: 45am Nausea/vomiting December 26, 2024 10: 49am N/V December 28, 2024 8:0 1am HYDRATION December 31, 2024 10: 49am HYDRATION January 02, 2025 11: 31am HYDRATION January 07, 2025 10: 36am HYDRATION January 09, 2025 11:1 8am HYDRATION January 11, 2025 12:5 5pm HYDRATION January 14, 2025 12:4 1pm HYDRATION January 16, 2025 12:2 3pm HYDRATION January 18, 2025 11: 49am Reason for Visit Admit Date Intractable nausea December 18, 2024 9:4 7pm Intractable nausea December 26, 2024 10: 49am Nausea and vomiting December 26, 2024 10: 49am Intractable nausea January 18, 2025 1:2 1pm Vomiting January 18, 2025 1:2 1pm Chief Complaint Admit Date VERTIGO RX HERE October 15, 2024 2: 51pm INTRACTABLE NAUSEA December 18, 2024 9:4 7pm INTRACTABLE NAUSEA December 18, 2024 9:5 9pm INTRACTABLE NAUSEA December 19, 2024 3:2 1pm INTRACTABLE NAUSEA December 20, 2024 5:2 8pm INTRACTABLE NAUSEA December 21, 2024 7:3 9am INTRACTABLE NAUSEA December 21, 2024 11: 07am QTC EVAL December 22, 2024 1:4 0pm INTRACTABLE NAUSEA December 22, 2024 1:4 6pm INTRACTABLE NAUSEA December 23, 2024 11: 45am Nausea/vomiting December 26, 2024 10: 49am N/V December 28, 2024 8:0 1am HYDRATION December 31, 2024 10: 49am HYDRATION January 02, 2025 11: 31am HYDRATION January 07, 2025 10: 36am HYDRATION January 09, 2025 11:1 8am HYDRATION January 11, 2025 12:5 5pm HYDRATION January 14, 2025 12:4 1pm HYDRATION January 16, 2025 12:2 3pm HYDRATION January 18, 2025 11: 49am HYDRATION January 21, 2025 11: 16am Chief Complaint Admit Date VERTIGO RX HERE October 15, 2024 2: 51pm INTRACTABLE NAUSEA December 18, 2024 9:4 7pm INTRACTABLE NAUSEA December 18, 2024 9:5 9pm INTRACTABLE NAUSEA December 19, 2024 3:2 1pm INTRACTABLE NAUSEA December 20, 2024 5:2 8pm INTRACTABLE NAUSEA December 21, 2024 7:3 9am INTRACTABLE NAUSEA December 21, 2024 11: 07am QTC EVAL December 22, 2024 1:4 0pm INTRACTABLE NAUSEA December 22, 2024 1:4 6pm INTRACTABLE NAUSEA December 23, 2024 11: 45am Nausea/vomiting December 26, 2024 10: 49am N/V December 28, 2024 8:0 1am HYDRATION December 31, 2024 10: 49am HYDRATION January 02, 2025 11: 31am HYDRATION January 07, 2025 10: 36am HYDRATION January 09, 2025 11:1 8am HYDRATION January 11, 2025 12:5 5pm HYDRATION January 14, 2025 12:4 1pm HYDRATION January 16, 2025 12:2 3pm HYDRATION January 18, 2025 11: 49am HYDRATION January 21, 2025 11: 16am HYDRATION January 23, 2025 11: 27am Chief Complaint Admit Date VERTIGO RX HERE October 15, 2024 2: 51pm INTRACTABLE NAUSEA December 18, 2024 9:4 7pm INTRACTABLE NAUSEA December 18, 2024 9:5 9pm INTRACTABLE NAUSEA December 19, 2024 3:2 1pm INTRACTABLE NAUSEA December 20, 2024 5:2 8pm INTRACTABLE NAUSEA December 21, 2024 7:3 9am INTRACTABLE NAUSEA December 21, 2024 11: 07am QTC EVAL December 22, 2024 1:4 0pm INTRACTABLE NAUSEA December 22, 2024 1:4 6pm INTRACTABLE NAUSEA December 23, 2024 11: 45am Nausea/vomiting December 26, 2024 10: 49am N/V December 28, 2024 8:0 1am HYDRATION December 31, 2024 10: 49am HYDRATION January 02, 2025 11: 31am HYDRATION January 07, 2025 10: 36am HYDRATION January 09, 2025 11:1 8am HYDRATION January 11, 2025 12:5 5pm HYDRATION January 14, 2025 12:4 1pm HYDRATION January 16, 2025 12:2 3pm HYDRATION January 18, 2025 11: 49am HYDRATION January 21, 2025 11: 16am HYDRATION January 23, 2025 11: 27am SOB January 25, 2025 4:0 6pm Chief Complaint Admit Date INTRACTABLE NAUSEA December 18, 2024 9:4 7pm INTRACTABLE NAUSEA December 18, 2024 9:5 9pm INTRACTABLE NAUSEA December 19, 2024 3:2 1pm INTRACTABLE NAUSEA December 20, 2024 5:2 8pm INTRACTABLE NAUSEA December 21, 2024 7:3 9am INTRACTABLE NAUSEA December 21, 2024 11: 07am QTC EVAL December 22, 2024 1:4 0pm INTRACTABLE NAUSEA December 22, 2024 1:4 6pm INTRACTABLE NAUSEA December 23, 2024 11: 45am Nausea/vomiting December 26, 2024 10: 49am N/V December 28, 2024 8:0 1am HYDRATION December 31, 2024 10: 49am HYDRATION January 02, 2025 11: 31am HYDRATION January 07, 2025 10: 36am HYDRATION January 09, 2025 11:1 8am HYDRATION January 11, 2025 12:5 5pm HYDRATION January 14, 2025 12:4 1pm HYDRATION January 16, 2025 12:2 3pm HYDRATION January 18, 2025 11: 49am HYDRATION January 21, 2025 11: 16am HYDRATION January 23, 2025 11: 27am SOB January 25, 2025 4:0 6pm HYDRATION January 28, 2025 12: 11pm HYDRATION January 30, 2025 12: 46pm COUGH February 18, 2025 1:12p m Chief Complaint Admit Date INTRACTABLE NAUSEA December 18, 2024 9:4 7pm INTRACTABLE NAUSEA December 18, 2024 9:5 9pm INTRACTABLE NAUSEA December 19, 2024 3:2 1pm INTRACTABLE NAUSEA December 20, 2024 5:2 8pm INTRACTABLE NAUSEA December 21, 2024 7:3 9am INTRACTABLE NAUSEA December 21, 2024 11: 07am QTC EVAL December 22, 2024 1:4 0pm INTRACTABLE NAUSEA December 22, 2024 1:4 6pm INTRACTABLE NAUSEA December 23, 2024 11: 45am Nausea/vomiting December 26, 2024 10: 49am N/V December 28, 2024 8:0 1am HYDRATION December 31, 2024 10: 49am HYDRATION January 02, 2025 11: 31am HYDRATION January 07, 2025 10: 36am HYDRATION January 09, 2025 11:1 8am HYDRATION January 11, 2025 12:5 5pm HYDRATION January 14, 2025 12:4 1pm HYDRATION January 16, 2025 12:2 3pm HYDRATION January 18, 2025 11: 49am HYDRATION January 21, 2025 11: 16am HYDRATION January 23, 2025 11: 27am SOB January 25, 2025 4:0 6pm HYDRATION January 28, 2025 12: 11pm HYDRATION January 30, 2025 12: 46pm COUGH February 18, 2025 1:12p m COUGH, CONGESTION February 20, 2025 2:56p m Chief Complaint Admit Date HYDRATION January 11, 2025 12:5 5pm HYDRATION January 14, 2025 12:4 1pm HYDRATION January 16, 2025 12:2 3pm HYDRATION January 18, 2025 11: 49am HYDRATION January 21, 2025 11: 16am HYDRATION January 23, 2025 11: 27am SOB January 25, 2025 4:0 6pm HYDRATION January 28, 2025 12: 11pm HYDRATION January 30, 2025 12: 46pm COUGH February 18, 2025 1:12p m COUGH, CONGESTION February 20, 2025 2:56p m Reason for Visit Admit Date Intractable nausea January 18, 2025 1:2 1pm Vomiting January 18, 2025 1:2 1pm Acute bronchitis February 20, 2025 2:56p m History of cancer February 20, 2025 2:56p m Chief Complaint Admit Date CONGESTION, COUGH July 02, 2025 1:50pm Right side of head hurts. Ear ache. Body aches. July 05, 2025 2:47pm [facility] Pt June 1:29pm Reason for Visit Admit Date Otitis media July 05, 2025 2:47pm Reason for Referral Specialty Diagnoses / Procedures Referred By Zeferino t Referred To Contact MR IMAGING Diagnoses Multiple myeloma in remission (HCC) Liver mass Procedures MRI LIVER WO/W IVCON MRI ABDOMEN W/O & W/CONTRAST MATERIAL Ghislaine Hutchinson MD [address] [place] [address] Mr Imaging Referral ID Status Reason Start Date Expiration Date V isits Requested Visits Authorized [id number] Closed Auto-Generate d Referral 01/11/2023 02/10/2024 1 1 Specialty Diagnoses / Procedures Referred By Zeefrino t Referred To Contact Gastroenterology Diagnoses Chronic biliary pancreatitis (HCC) Multiple myeloma in remission (HCC) Procedures CONSULT TO GASTROENTEROLOGY OFFICE/OUTPATIENT [facility] MDM 60-74 MINUTES Jadon Styles, [address] [place] [address] Referral ID Status Reason Start Date Expiration Date Visits Requested Visits Authorized [id number] Authorized PCP Requested Referral 03/10/2023 03/09/2024 1 1 Specialty Diagnoses / Procedures Referred By Zeferino t Referred To Contact MR IMAGING Diagnoses Thunderclap headache Procedures MRI BRAIN WO/W IVCON MRI BRAIN BRAIN STEM W/O W/[place] [address] [place] [address] [place] [address] Referral ID Status Reason Start Date Expiration Date Visits Requested Visits Authorized [id number] Authorized Auto-Generat ed Referral 06/30/2023 07/29/2024 1 1 Specialty Diagnoses / Procedures Referred By Contac t Referred To Contact MR IMAGING Diagnoses Multiple myeloma not having achieved remission (HCC) 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) Compression fracture of thoracic vertebra, unspecified thoracic vertebral level, sequela New daily persistent headache Pathological fracture, other site, initial encounter for fracture Procedures MRI PELVIS ORTHO GENERAL WO/W IVCON MRI ANY JT LOWER EXTREM W/O & W/CONTRAST Jadon Hendrix, DO [address] [place] [address] [place] [address] Referral ID Status Reason Start Date Expiration Date Visits Requested Visits Authorized [id number] Authorized Auto-Generat ed Referral 08/13/2024 09/12/2025 1 1 Specialty Diagnoses / Procedures Referred By Contac t Referred To Contact MR IMAGING Diagnoses Multiple myeloma not having achieved remission (HCC) 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) Compression fracture of thoracic vertebra, unspecified thoracic vertebral level, sequela New daily persistent headache Pathological fracture, other site, initial encounter for fracture Procedures MRI LUMBAR SPINE WO/W IVCON MRI SPINAL CANAL LUMBAR W/O & W/CONTR Jadon Hendrix, DO [address] [place] [address] [place] [address] Referral ID Status Reason Start Date Expiration Date Visits Requested Visits Authorized [id number] Authorized Auto-Generat ed Referral 08/13/2024 09/12/2025 1 1 Specialty Diagnoses / Procedures Referred By Contac t Referred To Contact MR IMAGING Diagnoses Multiple myeloma not having achieved remission (HCC) 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) Compression fracture of thoracic vertebra, unspecified thoracic vertebral level, sequela New daily persistent headache Pathological fracture, other site, initial encounter for fracture Procedures MRI CERVICAL SPINE WO/W IVCON MRI SPINAL CANAL CERVICAL W/O & W/CONTR Jadon Hendrix, DO [address] [place] [address] [place] [address] Referral ID Status Reason Start Date Expiration Date Visits Requested Visits Authorized [id number] Authorized Auto-Generat ed Referral 08/13/2024 09/12/2025 1 1 Specialty Diagnoses / Procedures Referred By Contac t Referred To Contact MR IMAGING Diagnoses Multiple myeloma not having achieved remission (HCC) 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) Compression fracture of thoracic vertebra, unspecified thoracic vertebral level, sequela New daily persistent headache Pathological fracture, other site, initial encounter for fracture Procedures MRI THORACIC SPINE WO/W IVCON MRI SPINAL CANAL THORACIC W/O & W/CONTR MATRL Jadon Styles, DO [address] [facility] [place] [address] [place] [address] Referral ID Status Reason Start Date Expiration Date Visits Requested Visits Authorized [id number] Authorized Auto-Generat ed Referral 08/13/2024 09/12/2025 1 1 Specialty Diagnoses / Procedures Referred By Contac t Referred To Contact MR IMAGING Diagnoses Multiple myeloma not having achieved remission (HCC) 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) Compression fracture of thoracic vertebra, unspecified thoracic vertebral level, sequela New daily persistent headache Pathological fracture, other site, initial encounter for fracture Procedures MRI BRAIN WO/W IVCON MRI BRAIN BRAIN STEM W/O W/CONTRAST MATERIAL Jadon Styles, DO [address] [facility] [place] [place] [address] [place] [address] Referral ID Status Reason Start Date Expiration Date Visits Requested Visits Authorized [id number] Authorized Auto-Generat ed Referral 08/13/2024 09/12/2025 1 1 Referral ID Status Reason Start Date Expiration Date V isits Requested Visits Authorized [id number] Closed Auto-Generate d Referral 08/13/2024 09/12/2025 1 1 Referral ID Status Reason Start Date Expiration Date V isits Requested Visits Authorized [id number] Closed Auto-Generate d Referral 08/13/2024 09/12/2025 1 1 Referral ID Status Reason Start Date Expiration Date V isits Requested Visits Authorized [id number] Closed Auto-Generate d Referral 08/13/2024 09/12/2025 1 1 Referral ID Status Reason Start Date Expiration Date V isits Requested Visits Authorized [id number] Closed Auto-Generate d Referral 08/13/2024 09/12/2025 1 1 Specialty Diagnoses / Procedures Referred By Contac t Referred To Contact Neurosurgery Diagnoses Multiple myeloma not having achieved remission (HCC) Procedures CONSULT TO NEUROSURGERY OFFICE/OUTPATIENT NEW HIGH MDM 60 MINUTES Jadon Styles DO [address] [place] [address] Referral ID Status Reason Start Date Expiration Date Visits Requested Visits Authorized [id number] Authorized PCP Requested Referral 09/11/2024 09/11/2025 1 1 Specialty Diagnoses / Procedures Referred By Contac t Referred To Contact MOLECULAR & FUNCTIONAL IMAGING Diagnoses Multiple myeloma not having achieved remission (HCC) Procedures NM PET/CT WHOLE BODY SUBSEQUENT PET IMAGING FOR CT ATTENUATION WHOLE BODY Jadon Styles DO [address] [place] [address] Molecular & Functional Imaging [address] [place] [address] Referral ID Status Reason Start Date Expiration Date Visits Requested Visits Authorized [id number] Authorized Auto-Generat ed Referral 09/11/2024 10/11/2025 1 1 Additional Source Comments INFORMATION SOURCE (unrecogn ized section and content) DATE CREATED AUTHOR 06/08/[address] [facility] DATE CREATED AUTHOR AUTHOR'S ORGANIZ ATION 01/03/2024 [facility] DATE CREATED AUTHOR AUTHOR'S ORGANIZ ATION 09/23/2024 [facility] DATE CREATED AUTHOR AUTHOR'S ORGANIZ ATION 12/14/2024 [facility] DATE CREATED AUTHOR AUTHOR'S ORGANIZ ATION 04/10/2025 [facility] DATE CREATED AUTHOR AUTHOR'S ORGANIZ ATION 06/29/2025 [facility] DATE CREATED AUTHOR AUTHOR'S ORGANIZ ATION 07/12/2025 [facility] Source Comments (unrecognize d section and content) In the event this informatio n is protected by the Federal Confidentiality of Alcohol and Drug Abuse Patient Records regulations: The Federal rules restrict any use of the information to criminally investigate or prosecute any alcohol or drug abuse patient.[facility] the event this information is protected by the Federal Confidentiality of Alcohol and Drug Abuse Patient Records regulations: The Federal rules restrict any use of the information to criminally investigate or prosecute any alcohol or drug abuse patient.[facility] HospitalIn the event this information is protected by the Federal Confidentiality of Alcohol and Drug Abuse Patient Records regulations: The Federal rules restrict any use of the information to criminally investigate or prosecute any alcohol or drug abuse patient.[facility] HospitalIn the event this information is protected by the Federal Confidentiality of Alcohol and Drug Abuse Patient Records regulations: The Federal rules restrict any use of the information to criminally investigate or prosecute any alcohol or drug abuse patient.[facility] HospitalIn the event this information is protected by the Federal Confidentiality of Alcohol and Drug Abuse Patient Records regulations: The Federal rules restrict any use of the information to criminally investigate or prosecute any alcohol or drug abuse patient.[facility] HospitalIn the event this information is protected by the Federal Confidentiality of Alcohol and Drug Abuse Patient Records regulations: The Federal rules restrict any use of the information to criminally investigate or prosecute any alcohol or drug abuse patient.[facility] HospitalIn the event this information is protected by the Federal Confidentiality of Alcohol and Drug Abuse Patient Records regulations: The Federal rules restrict any use of the information to criminally investigate or prosecute any alcohol or drug abuse patient.[facility] HospitalIn the event this information is protected by the Federal Confidentiality of Alcohol and Drug Abuse Patient Records regulations: The Federal rules restrict any use of the information to criminally investigate or prosecute any alcohol or drug abuse patient.[facility] HospitalIn the event this information is protected by the Federal Confidentiality of Alcohol and Drug Abuse Patient Records regulations: The Federal rules restrict any use of the information to criminally investigate or prosecute any alcohol or drug abuse patient.[facility] HospitalIn the event this information is protected by the Federal Confidentiality of Alcohol and Drug Abuse Patient Records regulations: The Federal rules restrict any use of the information to criminally investigate or prosecute any alcohol or drug abuse patient.[facility] HospitalIn the event this information is protected by the Federal Confidentiality of Alcohol and Drug Abuse Patient Records regulations: The Federal rules restrict any use of the information to criminally investigate or prosecute any alcohol or drug abuse patient.[facility] HospitalIn the event this information is protected by the Federal Confidentiality of Alcohol and Drug Abuse Patient Records regulations: The Federal rules restrict any use of the information to criminally investigate or prosecute any alcohol or drug abuse patient.[facility] HospitalIn the event this information is protected by the Federal Confidentiality of Alcohol and Drug Abuse Patient Records regulations: The Federal rules restrict any use of the information to criminally investigate or prosecute any alcohol or drug abuse patient.[facility] HospitalIn the event this information is protected by the Federal Confidentiality of Alcohol and Drug Abuse Patient Records regulations: The Federal rules restrict any use of the information to criminally investigate or prosecute any alcohol or drug abuse patient.[facility] HospitalIn the event this information is protected by the Federal Confidentiality of Alcohol and Drug Abuse Patient Records regulations: The Federal rules restrict any use of the information to criminally investigate or prosecute any alcohol or drug abuse patient.[facility] HospitalIn the event this information is protected by the Federal Confidentiality of Alcohol and Drug Abuse Patient Records regulations: The Federal rules restrict any use of the information to criminally investigate or prosecute any alcohol or drug abuse patient.[facility] HospitalIn the event this information is protected by the Federal Confidentiality of Alcohol and Drug Abuse Patient Records regulations: The Federal rules restrict any use of the information to criminally investigate or prosecute any alcohol or drug abuse patient.[facility] HospitalIn the event this information is protected by the Federal Confidentiality of Alcohol and Drug Abuse Patient Records regulations: The Federal rules restrict any use of the information to criminally investigate or prosecute any alcohol or drug abuse patient.[facility] HospitalIn the event this information is protected by the Federal Confidentiality of Alcohol and Drug Abuse Patient Records regulations: The Federal rules restrict any use of the information to criminally investigate or prosecute any alcohol or drug abuse patient.[facility] HospitalIn the event this information is protected by the Federal Confidentiality of Alcohol and Drug Abuse Patient Records regulations: The Federal rules restrict any use of the information to criminally investigate or prosecute any alcohol or drug abuse patient.[facility] HospitalIn the event this information is protected by the Federal Confidentiality of Alcohol and Drug Abuse Patient Records regulations: The Federal rules restrict any use of the information to criminally investigate or prosecute any alcohol or drug abuse patient.[facility] HospitalIn the event this information is protected by the Federal Confidentiality of Alcohol and Drug Abuse Patient Records regulations: The Federal rules restrict any use of the information to criminally investigate or prosecute any alcohol or drug abuse patient.[facility] HospitalIn the event this information is protected by the Federal Confidentiality of Alcohol and Drug Abuse Patient Records regulations: The Federal rules restrict any use of the information to criminally investigate or prosecute any alcohol or drug abuse patient.[facility] HospitalIn the event this information is protected by the Federal Confidentiality of Alcohol and Drug Abuse Patient Records regulations: The Federal rules restrict any use of the information to criminally investigate or prosecute any alcohol or drug abuse patient.[facility] HospitalIn the event this information is protected by the Federal Confidentiality of Alcohol and Drug Abuse Patient Records regulations: The Federal rules restrict any use of the information to criminally investigate or prosecute any alcohol or drug abuse patient.[facility] HospitalIn the event this information is protected by the Federal Confidentiality of Alcohol and Drug Abuse Patient Records regulations: The Federal rules restrict any use of the information to criminally investigate or prosecute any alcohol or drug abuse patient.[facility] HospitalIn the event this information is protected by the Federal Confidentiality of Alcohol and Drug Abuse Patient Records regulations: The Federal rules restrict any use of the information to criminally investigate or prosecute any alcohol or drug abuse patient.[facility] HospitalIn the event this information is protected by the Federal Confidentiality of Alcohol and Drug Abuse Patient Records regulations: The Federal rules restrict any use of the information to criminally investigate or prosecute any alcohol or drug abuse patient.[facility] HospitalIn the event this information is protected by the Federal Confidentiality of Alcohol and Drug Abuse Patient Records regulations: The Federal rules restrict any use of the information to criminally investigate or prosecute any alcohol or drug abuse patient.[facility] HospitalIn the event this information is protected by the Federal Confidentiality of Alcohol and Drug Abuse Patient Records regulations: The Federal rules restrict any use of the information to criminally investigate or prosecute any alcohol or drug abuse patient.[facility] HospitalIn the event this information is protected by the Federal Confidentiality of Alcohol and Drug Abuse Patient Records regulations: The Federal rules restrict any use of the information to criminally investigate or prosecute any alcohol or drug abuse patient.[facility] HospitalIn the event this information is protected by the Federal Confidentiality of Alcohol and Drug Abuse Patient Records regulations: The Federal rules restrict any use of the information to criminally investigate or prosecute any alcohol or drug abuse patient.[facility] HospitalIn the event this information is protected by the Federal Confidentiality of Alcohol and Drug Abuse Patient Records regulations: The Federal rules restrict any use of the information to criminally investigate or prosecute any alcohol or drug abuse patient.[facility] HospitalIn the event this information is protected by the Federal Confidentiality of Alcohol and Drug Abuse Patient Records regulations: The Federal rules restrict any use of the information to criminally investigate or prosecute any alcohol or drug abuse patient.[facility] HospitalIn the event this information is protected by the Federal Confidentiality of Alcohol and Drug Abuse Patient Records regulations: The Federal rules restrict any use of the information to criminally investigate or prosecute any alcohol or drug abuse patient.[facility] HospitalIn the event this information is protected by the Federal Confidentiality of Alcohol and Drug Abuse Patient Records regulations: The Federal rules restrict any use of the information to criminally investigate or prosecute any alcohol or drug abuse patient.[facility] HospitalIn the event this information is protected by the Federal Confidentiality of Alcohol and Drug Abuse Patient Records regulations: The Federal rules restrict any use of the information to criminally investigate or prosecute any alcohol or drug abuse patient.[facility] HospitalIn the event this information is protected by the Federal Confidentiality of Alcohol and Drug Abuse Patient Records regulations: The Federal rules restrict any use of the information to criminally investigate or prosecute any alcohol or drug abuse patient.[facility] HospitalIn the event this information is protected by the Federal Confidentiality of Alcohol and Drug Abuse Patient Records regulations: The Federal rules restrict any use of the information to criminally investigate or prosecute any alcohol or drug abuse patient.[facility] HospitalIn the event this information is protected by the Federal Confidentiality of Alcohol and Drug Abuse Patient Records regulations: The Federal rules restrict any use of the information to criminally investigate or prosecute any alcohol or drug abuse patient.[facility] HospitalIn the event this information is protected by the Federal Confidentiality of Alcohol and Drug Abuse Patient Records regulations: The Federal rules restrict any use of the information to criminally investigate or prosecute any alcohol or drug abuse patient.[facility] HospitalIn the event this information is protected by the Federal Confidentiality of Alcohol and Drug Abuse Patient Records regulations: The Federal rules restrict any use of the information to criminally investigate or prosecute any alcohol or drug abuse patient.[facility] HospitalIn the event this information is protected by the Federal Confidentiality of Alcohol and Drug Abuse Patient Records regulations: The Federal rules restrict any use of the information to criminally investigate or prosecute any alcohol or drug abuse patient.[facility] HospitalIn the event this information is protected by the Federal Confidentiality of Alcohol and Drug Abuse Patient Records regulations: The Federal rules restrict any use of the information to criminally investigate or prosecute any alcohol or drug abuse patient.[facility] HospitalIn the event this information is protected by the Federal Confidentiality of Alcohol and Drug Abuse Patient Records regulations: The Federal rules restrict any use of the information to criminally investigate or prosecute any alcohol or drug abuse patient.[facility] HospitalIn the event this information is protected by the Federal Confidentiality of Alcohol and Drug Abuse Patient Records regulations: The Federal rules restrict any use of the information to criminally investigate or prosecute any alcohol or drug abuse patient.[facility] HospitalIn the event this information is protected by the Federal Confidentiality of Alcohol and Drug Abuse Patient Records regulations: The Federal rules restrict any use of the information to criminally investigate or prosecute any alcohol or drug abuse patient.[facility] HospitalIn the event this information is protected by the Federal Confidentiality of Alcohol and Drug Abuse Patient Records regulations: The Federal rules restrict any use of the information to criminally investigate or prosecute any alcohol or drug abuse patient.[facility] HospitalIn the event this information is protected by the Federal Confidentiality of Alcohol and Drug Abuse Patient Records regulations: The Federal rules restrict any use of the information to criminally investigate or prosecute any alcohol or drug abuse patient.[facility] HospitalIn the event this information is protected by the Federal Confidentiality of Alcohol and Drug Abuse Patient Records regulations: The Federal rules restrict any use of the information to criminally investigate or prosecute any alcohol or drug abuse patient.[facility] HospitalIn the event this information is protected by the Federal Confidentiality of Alcohol and Drug Abuse Patient Records regulations: The Federal rules restrict any use of the information to criminally investigate or prosecute any alcohol or drug abuse patient.[facility] HospitalIn the event this information is protected by the Federal Confidentiality of Alcohol and Drug Abuse Patient Records regulations: The Federal rules restrict any use of the information to criminally investigate or prosecute any alcohol or drug abuse patient.[facility] HospitalIn the event this information is protected by the Federal Confidentiality of Alcohol and Drug Abuse Patient Records regulations: The Federal rules restrict any use of the information to criminally investigate or prosecute any alcohol or drug abuse patient.[facility] HospitalIn the event this information is protected by the Federal Confidentiality of Alcohol and Drug Abuse Patient Records regulations: The Federal rules restrict any use of the information to criminally investigate or prosecute any alcohol or drug abuse patient.[facility] HospitalIn the event this information is protected by the Federal Confidentiality of Alcohol and Drug Abuse Patient Records regulations: The Federal rules restrict any use of the information to criminally investigate or prosecute any alcohol or drug abuse patient.[facility] HospitalIn the event this information is protected by the Federal Confidentiality of Alcohol and Drug Abuse Patient Records regulations: The Federal rules restrict any use of the information to criminally investigate or prosecute any alcohol or drug abuse patient.[facility] HospitalIn the event this information is protected by the Federal Confidentiality of Alcohol and Drug Abuse Patient Records regulations: The Federal rules restrict any use of the information to criminally investigate or prosecute any alcohol or drug abuse patient.[facility] HospitalIn the event this information is protected by the Federal Confidentiality of Alcohol and Drug Abuse Patient Records regulations: The Federal rules restrict any use of the information to criminally investigate or prosecute any alcohol or drug abuse patient.[facility] HospitalIn the event this information is protected by the Federal Confidentiality of Alcohol and Drug Abuse Patient Records regulations: The Federal rules restrict any use of the information to criminally investigate or prosecute any alcohol or drug abuse patient.[facility] HospitalIn the event this information is protected by the Federal Confidentiality of Alcohol and Drug Abuse Patient Records regulations: The Federal rules restrict any use of the information to criminally investigate or prosecute any alcohol or drug abuse patient.[facility] HospitalIn the event this information is protected by the Federal Confidentiality of Alcohol and Drug Abuse Patient Records regulations: The Federal rules restrict any use of the information to criminally investigate or prosecute any alcohol or drug abuse patient.[facility] HospitalIn the event this information is protected by the Federal Confidentiality of Alcohol and Drug Abuse Patient Records regulations: The Federal rules restrict any use of the information to criminally investigate or prosecute any alcohol or drug abuse patient.[facility] HospitalIn the event this information is protected by the Federal Confidentiality of Alcohol and Drug Abuse Patient Records regulations: The Federal rules restrict any use of the information to criminally investigate or prosecute any alcohol or drug abuse patient.[facility] HospitalIn the event this information is protected by the Federal Confidentiality of Alcohol and Drug Abuse Patient Records regulations: The Federal rules restrict any use of the information to criminally investigate or prosecute any alcohol or drug abuse patient.[facility] HospitalIn the event this information is protected by the Federal Confidentiality of Alcohol and Drug Abuse Patient Records regulations: The Federal rules restrict any use of the information to criminally investigate or prosecute any alcohol or drug abuse patient.[facility] HospitalIn the event this information is protected by the Federal Confidentiality of Alcohol and Drug Abuse Patient Records regulations: The Federal rules restrict any use of the information to criminally investigate or prosecute any alcohol or drug abuse patient.[facility] HospitalIn the event this information is protected by the Federal Confidentiality of Alcohol and Drug Abuse Patient Records regulations: The Federal rules restrict any use of the information to criminally investigate or prosecute any alcohol or drug abuse patient.[facility] HospitalIn the event this information is protected by the Federal Confidentiality of Alcohol and Drug Abuse Patient Records regulations: The Federal rules restrict any use of the information to criminally investigate or prosecute any alcohol or drug abuse patient.[facility] HospitalIn the event this information is protected by the Federal Confidentiality of Alcohol and Drug Abuse Patient Records regulations: The Federal rules restrict any use of the information to criminally investigate or prosecute any alcohol or drug abuse patient.[facility] HospitalIn the event this information is protected by the Federal Confidentiality of Alcohol and Drug Abuse Patient Records regulations: The Federal rules restrict any use of the information to criminally investigate or prosecute any alcohol or drug abuse patient.[facility] HospitalIn the event this information is protected by the Federal Confidentiality of Alcohol and Drug Abuse Patient Records regulations: The Federal rules restrict any use of the information to criminally investigate or prosecute any alcohol or drug abuse patient.[facility] HospitalIn the event this information is protected by the Federal Confidentiality of Alcohol and Drug Abuse Patient Records regulations: The Federal rules restrict any use of the information to criminally investigate or prosecute any alcohol or drug abuse patient.[facility] HospitalIn the event this information is protected by the Federal Confidentiality of Alcohol and Drug Abuse Patient Records regulations: The Federal rules restrict any use of the information to criminally investigate or prosecute any alcohol or drug abuse patient.[facility] HospitalIn the event this information is protected by the Federal Confidentiality of Alcohol and Drug Abuse Patient Records regulations: The Federal rules restrict any use of the information to criminally investigate or prosecute any alcohol or drug abuse patient.[facility] HospitalIn the event this information is protected by the Federal Confidentiality of Alcohol and Drug Abuse Patient Records regulations: The Federal rules restrict any use of the information to criminally investigate or prosecute any alcohol or drug abuse patient.[facility] HospitalIn the event this information is protected by the Federal Confidentiality of Alcohol and Drug Abuse Patient Records regulations: The Federal rules restrict any use of the information to criminally investigate or prosecute any alcohol or drug abuse patient.[facility] HospitalIn the event this information is protected by the Federal Confidentiality of Alcohol and Drug Abuse Patient Records regulations: The Federal rules restrict any use of the information to criminally investigate or prosecute any alcohol or drug abuse patient.[facility] HospitalIn the event this information is protected by the Federal Confidentiality of Alcohol and Drug Abuse Patient Records regulations: The Federal rules restrict any use of the information to criminally investigate or prosecute any alcohol or drug abuse patient.[facility] HospitalIn the event this information is protected by the Federal Confidentiality of Alcohol and Drug Abuse Patient Records regulations: The Federal rules restrict any use of the information to criminally investigate or prosecute any alcohol or drug abuse patient.[facility] HospitalIn the event this information is protected by the Federal Confidentiality of Alcohol and Drug Abuse Patient Records regulations: The Federal rules restrict any use of the information to criminally investigate or prosecute any alcohol or drug abuse patient.[facility] HospitalIn the event this information is protected by the Federal Confidentiality of Alcohol and Drug Abuse Patient Records regulations: The Federal rules restrict any use of the information to criminally investigate or prosecute any alcohol or drug abuse patient.[facility] HospitalIn the event this information is protected by the Federal Confidentiality of Alcohol and Drug Abuse Patient Records regulations: The Federal rules restrict any use of the information to criminally investigate or prosecute any alcohol or drug abuse patient.[facility] HospitalIn the event this information is protected by the Federal Confidentiality of Alcohol and Drug Abuse Patient Records regulations: The Federal rules restrict any use of the information to criminally investigate or prosecute any alcohol or drug abuse patient.[facility] HospitalIn the event this information is protected by the Federal Confidentiality of Alcohol and Drug Abuse Patient Records regulations: The Federal rules restrict any use of the information to criminally investigate or prosecute any alcohol or drug abuse patient.[facility] HospitalIn the event this information is protected by the Federal Confidentiality of Alcohol and Drug Abuse Patient Records regulations: The Federal rules restrict any use of the information to criminally investigate or prosecute any alcohol or drug abuse patient.[facility] HospitalIn the event this information is protected by the Federal Confidentiality of Alcohol and Drug Abuse Patient Records regulations: The Federal rules restrict any use of the information to criminally investigate or prosecute any alcohol or drug abuse patient.[facility] HospitalIn the event this information is protected by the Federal Confidentiality of Alcohol and Drug Abuse Patient Records regulations: The Federal rules restrict any use of the information to criminally investigate or prosecute any alcohol or drug abuse patient.[facility] HospitalIn the event this information is protected by the Federal Confidentiality of Alcohol and Drug Abuse Patient Records regulations: The Federal rules restrict any use of the information to criminally investigate or prosecute any alcohol or drug abuse patient.[facility] HospitalIn the event this information is protected by the Federal Confidentiality of Alcohol and Drug Abuse Patient Records regulations: The Federal rules restrict any use of the information to criminally investigate or prosecute any alcohol or drug abuse patient.[facility] HospitalIn the event this information is protected by the Federal Confidentiality of Alcohol and Drug Abuse Patient Records regulations: The Federal rules restrict any use of the information to criminally investigate or prosecute any alcohol or drug abuse patient.[facility] HospitalIn the event this information is protected by the Federal Confidentiality of Alcohol and Drug Abuse Patient Records regulations: The Federal rules restrict any use of the information to criminally investigate or prosecute any alcohol or drug abuse patient.[facility] HospitalIn the event this information is protected by the Federal Confidentiality of Alcohol and Drug Abuse Patient Records regulations: The Federal rules restrict any use of the information to criminally investigate or prosecute any alcohol or drug abuse patient.[facility] HospitalIn the event this information is protected by the Federal Confidentiality of Alcohol and Drug Abuse Patient Records regulations: The Federal rules restrict any use of the information to criminally investigate or prosecute any alcohol or drug abuse patient.[facility] HospitalIn the event this information is protected by the Federal Confidentiality of Alcohol and Drug Abuse Patient Records regulations: The Federal rules restrict any use of the information to criminally investigate or prosecute any alcohol or drug abuse patient.[facility] HospitalIn the event this information is protected by the Federal Confidentiality of Alcohol and Drug Abuse Patient Records regulations: The Federal rules restrict any use of the information to criminally investigate or prosecute any alcohol or drug abuse patient.[facility] HospitalIn the event this information is protected by the Federal Confidentiality of Alcohol and Drug Abuse Patient Records regulations: The Federal rules restrict any use of the information to criminally investigate or prosecute any alcohol or drug abuse patient.[facility] HospitalIn the event this information is protected by the Federal Confidentiality of Alcohol and Drug Abuse Patient Records regulations: The Federal rules restrict any use of the information to criminally investigate or prosecute any alcohol or drug abuse patient.[facility] HospitalIn the event this information is protected by the Federal Confidentiality of Alcohol and Drug Abuse Patient Records regulations: The Federal rules restrict any use of the information to criminally investigate or prosecute any alcohol or drug abuse patient.[facility] HospitalIn the event this information is protected by the Federal Confidentiality of Alcohol and Drug Abuse Patient Records regulations: The Federal rules restrict any use of the information to criminally investigate or prosecute any alcohol or drug abuse patient.[facility] HospitalIn the event this information is protected by the Federal Confidentiality of Alcohol and Drug Abuse Patient Records regulations: The Federal rules restrict any use of the information to criminally investigate or prosecute any alcohol or drug abuse patient.[facility] HospitalIn the event this information is protected by the Federal Confidentiality of Alcohol and Drug Abuse Patient Records regulations: The Federal rules restrict any use of the information to criminally investigate or prosecute any alcohol or drug abuse patient.[facility] HospitalIn the event this information is protected by the Federal Confidentiality of Alcohol and Drug Abuse Patient Records regulations: The Federal rules restrict any use of the information to criminally investigate or prosecute any alcohol or drug abuse patient.[facility] HospitalIn the event this information is protected by the Federal Confidentiality of Alcohol and Drug Abuse Patient Records regulations: The Federal rules restrict any use of the information to criminally investigate or prosecute any alcohol or drug abuse patient.[facility] HospitalIn the event this information is protected by the Federal Confidentiality of Alcohol and Drug Abuse Patient Records regulations: The Federal rules restrict any use of the information to criminally investigate or prosecute any alcohol or drug abuse patient.[facility] HospitalIn the event this information is protected by the Federal Confidentiality of Alcohol and Drug Abuse Patient Records regulations: The Federal rules restrict any use of the information to criminally investigate or prosecute any alcohol or drug abuse patient.[facility] HospitalIn the event this information is protected by the Federal Confidentiality of Alcohol and Drug Abuse Patient Records regulations: The Federal rules restrict any use of the information to criminally investigate or prosecute any alcohol or drug abuse patient.[facility] HospitalIn the event this information is protected by the Federal Confidentiality of Alcohol and Drug Abuse Patient Records regulations: The Federal rules restrict any use of the information to criminally investigate or prosecute any alcohol or drug abuse patient.[facility] HospitalIn the event this information is protected by the Federal Confidentiality of Alcohol and Drug Abuse Patient Records regulations: The Federal rules restrict any use of the information to criminally investigate or prosecute any alcohol or drug abuse patient.[facility] HospitalIn the event this information is protected by the Federal Confidentiality of Alcohol and Drug Abuse Patient Records regulations: The Federal rules restrict any use of the information to criminally investigate or prosecute any alcohol or drug abuse patient.[facility] HospitalIn the event this information is protected by the Federal Confidentiality of Alcohol and Drug Abuse Patient Records regulations: The Federal rules restrict any use of the information to criminally investigate or prosecute any alcohol or drug abuse patient.[facility] HospitalIn the event this information is protected by the Federal Confidentiality of Alcohol and Drug Abuse Patient Records regulations: The Federal rules restrict any use of the information to criminally investigate or prosecute any alcohol or drug abuse patient.[facility] HospitalIn the event this information is protected by the Federal Confidentiality of Alcohol and Drug Abuse Patient Records regulations: The Federal rules restrict any use of the information to criminally investigate or prosecute any alcohol or drug abuse patient.[facility] HospitalIn the event this information is protected by the Federal Confidentiality of Alcohol and Drug Abuse Patient Records regulations: The Federal rules restrict any use of the information to criminally investigate or prosecute any alcohol or drug abuse patient.[facility] HospitalIn the event this information is protected by the Federal Confidentiality of Alcohol and Drug Abuse Patient Records regulations: The Federal rules restrict any use of the information to criminally investigate or prosecute any alcohol or drug abuse patient.[facility] HospitalIn the event this information is protected by the Federal Confidentiality of Alcohol and Drug Abuse Patient Records regulations: The Federal rules restrict any use of the information to criminally investigate or prosecute any alcohol or drug abuse patient.[facility] HospitalIn the event this information is protected by the Federal Confidentiality of Alcohol and Drug Abuse Patient Records regulations: The Federal rules restrict any use of the information to criminally investigate or prosecute any alcohol or drug abuse patient.[facility] HospitalIn the event this information is protected by the Federal Confidentiality of Alcohol and Drug Abuse Patient Records regulations: The Federal rules restrict any use of the information to criminally investigate or prosecute any alcohol or drug abuse patient.[facility] HospitalIn the event this information is protected by the Federal Confidentiality of Alcohol and Drug Abuse Patient Records regulations: The Federal rules restrict any use of the information to criminally investigate or prosecute any alcohol or drug abuse patient.[facility] HospitalIn the event this information is protected by the Federal Confidentiality of Alcohol and Drug Abuse Patient Records regulations: The Federal rules restrict any use of the information to criminally investigate or prosecute any alcohol or drug abuse patient.[facility] HospitalIn the event this information is protected by the Federal Confidentiality of Alcohol and Drug Abuse Patient Records regulations: The Federal rules restrict any use of the information to criminally investigate or prosecute any alcohol or drug abuse patient.[facility] HospitalIn the event this information is protected by the Federal Confidentiality of Alcohol and Drug Abuse Patient Records regulations: The Federal rules restrict any use of the information to criminally investigate or prosecute any alcohol or drug abuse patient.[facility] HospitalIn the event this information is protected by the Federal Confidentiality of Alcohol and Drug Abuse Patient Records regulations: The Federal rules restrict any use of the information to criminally investigate or prosecute any alcohol or drug abuse patient.[facility] HospitalIn the event this information is protected by the Federal Confidentiality of Alcohol and Drug Abuse Patient Records regulations: The Federal rules restrict any use of the information to criminally investigate or prosecute any alcohol or drug abuse patient.[facility] HospitalIn the event this information is protected by the Federal Confidentiality of Alcohol and Drug Abuse Patient Records regulations: The Federal rules restrict any use of the information to criminally investigate or prosecute any alcohol or drug abuse patient.[facility] HospitalIn the event this information is protected by the Federal Confidentiality of Alcohol and Drug Abuse Patient Records regulations: The Federal rules restrict any use of the information to criminally investigate or prosecute any alcohol or drug abuse patient.[facility] HospitalIn the event this information is protected by the Federal Confidentiality of Alcohol and Drug Abuse Patient Records regulations: The Federal rules restrict any use of the information to criminally investigate or prosecute any alcohol or drug abuse patient.[facility] HospitalIn the event this information is protected by the Federal Confidentiality of Alcohol and Drug Abuse Patient Records regulations: The Federal rules restrict any use of the information to criminally investigate or prosecute any alcohol or drug abuse patient.[facility] HospitalIn the event this information is protected by the Federal Confidentiality of Alcohol and Drug Abuse Patient Records regulations: The Federal rules restrict any use of the information to criminally investigate or prosecute any alcohol or drug abuse patient.[facility] HospitalIn the event this information is protected by the Federal Confidentiality of Alcohol and Drug Abuse Patient Records regulations: The Federal rules restrict any use of the information to criminally investigate or prosecute any alcohol or drug abuse patient.[facility] HospitalIn the event this information is protected by the Federal Confidentiality of Alcohol and Drug Abuse Patient Records regulations: The Federal rules restrict any use of the information to criminally investigate or prosecute any alcohol or drug abuse patient.[facility] HospitalIn the event this information is protected by the Federal Confidentiality of Alcohol and Drug Abuse Patient Records regulations: The Federal rules restrict any use of the information to criminally investigate or prosecute any alcohol or drug abuse patient.[facility] HospitalIn the event this information is protected by the Federal Confidentiality of Alcohol and Drug Abuse Patient Records regulations: The Federal rules restrict any use of the information to criminally investigate or prosecute any alcohol or drug abuse patient.[facility] HospitalIn the event this information is protected by the Federal Confidentiality of Alcohol and Drug Abuse Patient Records regulations: The Federal rules restrict any use of the information to criminally investigate or prosecute any alcohol or drug abuse patient.[facility] HospitalIn the event this information is protected by the Federal Confidentiality of Alcohol and Drug Abuse Patient Records regulations: The Federal rules restrict any use of the information to criminally investigate or prosecute any alcohol or drug abuse patient.[facility] HospitalIn the event this information is protected by the Federal Confidentiality of Alcohol and Drug Abuse Patient Records regulations: The Federal rules restrict any use of the information to criminally investigate or prosecute any alcohol or drug abuse patient.[facility] HospitalIn the event this information is protected by the Federal Confidentiality of Alcohol and Drug Abuse Patient Records regulations: The Federal rules restrict any use of the information to criminally investigate or prosecute any alcohol or drug abuse patient.[facility] HospitalIn the event this information is protected by the Federal Confidentiality of Alcohol and Drug Abuse Patient Records regulations: The Federal rules restrict any use of the information to criminally investigate or prosecute any alcohol or drug abuse patient.[facility] HospitalIn the event this information is protected by the Federal Confidentiality of Alcohol and Drug Abuse Patient Records regulations: The Federal rules restrict any use of the information to criminally investigate or prosecute any alcohol or drug abuse patient.[facility] HospitalIn the event this information is protected by the Federal Confidentiality of Alcohol and Drug Abuse Patient Records regulations: The Federal rules restrict any use of the information to criminally investigate or prosecute any alcohol or drug abuse patient.[facility] HospitalIn the event this information is protected by the Federal Confidentiality of Alcohol and Drug Abuse Patient Records regulations: The Federal rules restrict any use of the information to criminally investigate or prosecute any alcohol or drug abuse patient.[facility] HospitalIn the event this information is protected by the Federal Confidentiality of Alcohol and Drug Abuse Patient Records regulations: The Federal rules restrict any use of the information to criminally investigate or prosecute any alcohol or drug abuse patient.[facility] HospitalIn the event this information is protected by the Federal Confidentiality of Alcohol and Drug Abuse Patient Records regulations: The Federal rules restrict any use of the information to criminally investigate or prosecute any alcohol or drug abuse patient.[facility] HospitalIn the event this information is protected by the Federal Confidentiality of Alcohol and Drug Abuse Patient Records regulations: The Federal rules restrict any use of the information to criminally investigate or prosecute any alcohol or drug abuse patient.[facility] HospitalIn the event this information is protected by the Federal Confidentiality of Alcohol and Drug Abuse Patient Records regulations: The Federal rules restrict any use of the information to criminally investigate or prosecute any alcohol or drug abuse patient.[facility] HospitalIn the event this information is protected by the Federal Confidentiality of Alcohol and Drug Abuse Patient Records regulations: The Federal rules restrict any use of the information to criminally investigate or prosecute any alcohol or drug abuse patient.[facility] HospitalIn the event this information is protected by the Federal Confidentiality of Alcohol and Drug Abuse Patient Records regulations: The Federal rules restrict any use of the information to criminally investigate or prosecute any alcohol or drug abuse patient.[facility] HospitalIn the event this information is protected by the Federal Confidentiality of Alcohol and Drug Abuse Patient Records regulations: The Federal rules restrict any use of the information to criminally investigate or prosecute any alcohol or drug abuse patient.[facility] HospitalIn the event this information is protected by the Federal Confidentiality of Alcohol and Drug Abuse Patient Records regulations: The Federal rules restrict any use of the information to criminally investigate or prosecute any alcohol or drug abuse patient.[facility] HospitalIn the event this information is protected by the Federal Confidentiality of Alcohol and Drug Abuse Patient Records regulations: The Federal rules restrict any use of the information to criminally investigate or prosecute any alcohol or drug abuse patient.[facility] HospitalIn the event this information is protected by the Federal Confidentiality of Alcohol and Drug Abuse Patient Records regulations: The Federal rules restrict any use of the information to criminally investigate or prosecute any alcohol or drug abuse patient.[facility] HospitalIn the event this information is protected by the Federal Confidentiality of Alcohol and Drug Abuse Patient Records regulations: The Federal rules restrict any use of the information to criminally investigate or prosecute any alcohol or drug abuse patient.[facility] HospitalIn the event this information is protected by the Federal Confidentiality of Alcohol and Drug Abuse Patient Records regulations: The Federal rules restrict any use of the information to criminally investigate or prosecute any alcohol or drug abuse patient.[facility] HospitalIn the event this information is protected by the Federal Confidentiality of Alcohol and Drug Abuse Patient Records regulations: The Federal rules restrict any use of the information to criminally investigate or prosecute any alcohol or drug abuse patient.[facility] HospitalIn the event this information is protected by the Federal Confidentiality of Alcohol and Drug Abuse Patient Records regulations: The Federal rules restrict any use of the information to criminally investigate or prosecute any alcohol or drug abuse patient.[facility] HospitalIn the event this information is protected by the Federal Confidentiality of Alcohol and Drug Abuse Patient Records regulations: The Federal rules restrict any use of the information to criminally investigate or prosecute any alcohol or drug abuse patient.[facility] HospitalIn the event this information is protected by the Federal Confidentiality of Alcohol and Drug Abuse Patient Records regulations: The Federal rules restrict any use of the information to criminally investigate or prosecute any alcohol or drug abuse patient.[facility] HospitalIn the event this information is protected by the Federal Confidentiality of Alcohol and Drug Abuse Patient Records regulations: The Federal rules restrict any use of the information to criminally investigate or prosecute any alcohol or drug abuse patient.[facility] HospitalIn the event this information is protected by the Federal Confidentiality of Alcohol and Drug Abuse Patient Records regulations: The Federal rules restrict any use of the information to criminally investigate or prosecute any alcohol or drug abuse patient.[facility] HospitalIn the event this information is protected by the Federal Confidentiality of Alcohol and Drug Abuse Patient Records regulations: The Federal rules restrict any use of the information to criminally investigate or prosecute any alcohol or drug abuse patient.[facility] HospitalIn the event this information is protected by the Federal Confidentiality of Alcohol and Drug Abuse Patient Records regulations: The Federal rules restrict any use of the information to criminally investigate or prosecute any alcohol or drug abuse patient.[facility] HospitalIn the event this information is protected by the Federal Confidentiality of Alcohol and Drug Abuse Patient Records regulations: The Federal rules restrict any use of the information to criminally investigate or prosecute any alcohol or drug abuse patient.[facility] HospitalIn the event this information is protected by the Federal Confidentiality of Alcohol and Drug Abuse Patient Records regulations: The Federal rules restrict any use of the information to criminally investigate or prosecute any alcohol or drug abuse patient.[facility] HospitalIn the event this information is protected by the Federal Confidentiality of Alcohol and Drug Abuse Patient Records regulations: The Federal rules restrict any use of the information to criminally investigate or prosecute any alcohol or drug abuse patient.[facility] HospitalIn the event this information is protected by the Federal Confidentiality of Alcohol and Drug Abuse Patient Records regulations: The Federal rules restrict any use of the information to criminally investigate or prosecute any alcohol or drug abuse patient.[facility] HospitalIn the event this information is protected by the Federal Confidentiality of Alcohol and Drug Abuse Patient Records regulations: The Federal rules restrict any use of the information to criminally investigate or prosecute any alcohol or drug abuse patient.[facility] HospitalIn the event this information is protected by the Federal Confidentiality of Alcohol and Drug Abuse Patient Records regulations: The Federal rules restrict any use of the information to criminally investigate or prosecute any alcohol or drug abuse patient.[facility] HospitalIn the event this information is protected by the Federal Confidentiality of Alcohol and Drug Abuse Patient Records regulations: The Federal rules restrict any use of the information to criminally investigate or prosecute any alcohol or drug abuse patient.[facility] HospitalIn the event this information is protected by the Federal Confidentiality of Alcohol and Drug Abuse Patient Records regulations: The Federal rules restrict any use of the information to criminally investigate or prosecute any alcohol or drug abuse patient.[facility] HospitalIn the event this information is protected by the Federal Confidentiality of Alcohol and Drug Abuse Patient Records regulations: The Federal rules restrict any use of the information to criminally investigate or prosecute any alcohol or drug abuse patient.[facility] HospitalIn the event this information is protected by the Federal Confidentiality of Alcohol and Drug Abuse Patient Records regulations: The Federal rules restrict any use of the information to criminally investigate or prosecute any alcohol or drug abuse patient.[facility] HospitalIn the event this information is protected by the Federal Confidentiality of Alcohol and Drug Abuse Patient Records regulations: The Federal rules restrict any use of the information to criminally investigate or prosecute any alcohol or drug abuse patient.[facility] HospitalIn the event this information is protected by the Federal Confidentiality of Alcohol and Drug Abuse Patient Records regulations: The Federal rules restrict any use of the information to criminally investigate or prosecute any alcohol or drug abuse patient.[facility] HospitalIn the event this information is protected by the Federal Confidentiality of Alcohol and Drug Abuse Patient Records regulations: The Federal rules restrict any use of the information to criminally investigate or prosecute any alcohol or drug abuse patient.[facility] HospitalIn the event this information is protected by the Federal Confidentiality of Alcohol and Drug Abuse Patient Records regulations: The Federal rules restrict any use of the information to criminally investigate or prosecute any alcohol or drug abuse patient.[facility] HospitalIn the event this information is protected by the Federal Confidentiality of Alcohol and Drug Abuse Patient Records regulations: The Federal rules restrict any use of the information to criminally investigate or prosecute any alcohol or drug abuse patient.[facility] HospitalIn the event this information is protected by the Federal Confidentiality of Alcohol and Drug Abuse Patient Records regulations: The Federal rules restrict any use of the information to criminally investigate or prosecute any alcohol or drug abuse patient.[facility] HospitalIn the event this information is protected by the Federal Confidentiality of Alcohol and Drug Abuse Patient Records regulations: The Federal rules restrict any use of the information to criminally investigate or prosecute any alcohol or drug abuse patient.[facility] HospitalIn the event this information is protected by the Federal Confidentiality of Alcohol and Drug Abuse Patient Records regulations: The Federal rules restrict any use of the information to criminally investigate or prosecute any alcohol or drug abuse patient.[facility] HospitalIn the event this information is protected by the Federal Confidentiality of Alcohol and Drug Abuse Patient Records regulations: The Federal rules restrict any use of the information to criminally investigate or prosecute any alcohol or drug abuse patient.[facility] HospitalIn the event this information is protected by the Federal Confidentiality of Alcohol and Drug Abuse Patient Records regulations: The Federal rules restrict any use of the information to criminally investigate or prosecute any alcohol or drug abuse patient.[facility] HospitalIn the event this information is protected by the Federal Confidentiality of Alcohol and Drug Abuse Patient Records regulations: The Federal rules restrict any use of the information to criminally investigate or prosecute any alcohol or drug abuse patient.[facility] HospitalIn the event this information is protected by the Federal Confidentiality of Alcohol and Drug Abuse Patient Records regulations: The Federal rules restrict any use of the information to criminally investigate or prosecute any alcohol or drug abuse patient.[facility] HospitalIn the event this information is protected by the Federal Confidentiality of Alcohol and Drug Abuse Patient Records regulations: The Federal rules restrict any use of the information to criminally investigate or prosecute any alcohol or drug abuse patient.[facility] HospitalIn the event this information is protected by the Federal Confidentiality of Alcohol and Drug Abuse Patient Records regulations: The Federal rules restrict any use of the information to criminally investigate or prosecute any alcohol or drug abuse patient.[facility] HospitalIn the event this information is protected by the Federal Confidentiality of Alcohol and Drug Abuse Patient Records regulations: The Federal rules restrict any use of the information to criminally investigate or prosecute any alcohol or drug abuse patient.[facility] HospitalIn the event this information is protected by the Federal Confidentiality of Alcohol and Drug Abuse Patient Records regulations: The Federal rules restrict any use of the information to criminally investigate or prosecute any alcohol or drug abuse patient.[facility] HospitalIn the event this information is protected by the Federal Confidentiality of Alcohol and Drug Abuse Patient Records regulations: The Federal rules restrict any use of the information to criminally investigate or prosecute any alcohol or drug abuse patient.[facility] HospitalIn the event this information is protected by the Federal Confidentiality of Alcohol and Drug Abuse Patient Records regulations: The Federal rules restrict any use of the information to criminally investigate or prosecute any alcohol or drug abuse patient.[facility] HospitalIn the event this information is protected by the Federal Confidentiality of Alcohol and Drug Abuse Patient Records regulations: The Federal rules restrict any use of the information to criminally investigate or prosecute any alcohol or drug abuse patient.[facility] HospitalIn the event this information is protected by the Federal Confidentiality of Alcohol and Drug Abuse Patient Records regulations: The Federal rules restrict any use of the information to criminally investigate or prosecute any alcohol or drug abuse patient.[facility] HospitalIn the event this information is protected by the Federal Confidentiality of Alcohol and Drug Abuse Patient Records regulations: The Federal rules restrict any use of the information to criminally investigate or prosecute any alcohol or drug abuse patient.[facility] HospitalIn the event this information is protected by the Federal Confidentiality of Alcohol and Drug Abuse Patient Records regulations: The Federal rules restrict any use of the information to criminally investigate or prosecute any alcohol or drug abuse patient.[facility] HospitalIn the event this information is protected by the Federal Confidentiality of Alcohol and Drug Abuse Patient Records regulations: The Federal rules restrict any use of the information to criminally investigate or prosecute any alcohol or drug abuse patient.[facility] HospitalIn the event this information is protected by the Federal Confidentiality of Alcohol and Drug Abuse Patient Records regulations: The Federal rules restrict any use of the information to criminally investigate or prosecute any alcohol or drug abuse patient.[facility] HospitalIn the event this information is protected by the Federal Confidentiality of Alcohol and Drug Abuse Patient Records regulations: The Federal rules restrict any use of the information to criminally investigate or prosecute any alcohol or drug abuse patient.[facility] HospitalIn the event this information is protected by the Federal Confidentiality of Alcohol and Drug Abuse Patient Records regulations: The Federal rules restrict any use of the information to criminally investigate or prosecute any alcohol or drug abuse patient.[facility] HospitalIn the event this information is protected by the Federal Confidentiality of Alcohol and Drug Abuse Patient Records regulations: The Federal rules restrict any use of the information to criminally investigate or prosecute any alcohol or drug abuse patient.[facility] HospitalIn the event this information is protected by the Federal Confidentiality of Alcohol and Drug Abuse Patient Records regulations: The Federal rules restrict any use of the information to criminally investigate or prosecute any alcohol or drug abuse patient.[facility] HospitalIn the event this information is protected by the Federal Confidentiality of Alcohol and Drug Abuse Patient Records regulations: The Federal rules restrict any use of the information to criminally investigate or prosecute any alcohol or drug abuse patient.[facility] HospitalIn the event this information is protected by the Federal Confidentiality of Alcohol and Drug Abuse Patient Records regulations: The Federal rules restrict any use of the information to criminally investigate or prosecute any alcohol or drug abuse patient.[facility] HospitalIn the event this information is protected by the Federal Confidentiality of Alcohol and Drug Abuse Patient Records regulations: The Federal rules restrict any use of the information to criminally investigate or prosecute any alcohol or drug abuse patient.[facility] HospitalIn the event this information is protected by the Federal Confidentiality of Alcohol and Drug Abuse Patient Records regulations: The Federal rules restrict any use of the information to criminally investigate or prosecute any alcohol or drug abuse patient.[facility] HospitalIn the event this information is protected by the Federal Confidentiality of Alcohol and Drug Abuse Patient Records regulations: The Federal rules restrict any use of the information to criminally investigate or prosecute any alcohol or drug abuse patient.[facility] HospitalIn the event this information is protected by the Federal Confidentiality of Alcohol and Drug Abuse Patient Records regulations: The Federal rules restrict any use of the information to criminally investigate or prosecute any alcohol or drug abuse patient.[facility] HospitalIn the event this information is protected by the Federal Confidentiality of Alcohol and Drug Abuse Patient Records regulations: The Federal rules restrict any use of the information to criminally investigate or prosecute any alcohol or drug abuse patient.[facility] HospitalIn the event this information is protected by the Federal Confidentiality of Alcohol and Drug Abuse Patient Records regulations: The Federal rules restrict any use of the information to criminally investigate or prosecute any alcohol or drug abuse patient.[facility] HospitalIn the event this information is protected by the Federal Confidentiality of Alcohol and Drug Abuse Patient Records regulations: The Federal rules restrict any use of the information to criminally investigate or prosecute any alcohol or drug abuse patient.[facility] HospitalIn the event this information is protected by the Federal Confidentiality of Alcohol and Drug Abuse Patient Records regulations: The Federal rules restrict any use of the information to criminally investigate or prosecute any alcohol or drug abuse patient.[facility] HospitalIn the event this information is protected by the Federal Confidentiality of Alcohol and Drug Abuse Patient Records regulations: The Federal rules restrict any use of the information to criminally investigate or prosecute any alcohol or drug abuse patient.[facility] HospitalIn the event this information is protected by the Federal Confidentiality of Alcohol and Drug Abuse Patient Records regulations: The Federal rules restrict any use of the information to criminally investigate or prosecute any alcohol or drug abuse patient.[facility] HospitalIn the event this information is protected by the Federal Confidentiality of Alcohol and Drug Abuse Patient Records regulations: The Federal rules restrict any use of the information to criminally investigate or prosecute any alcohol or drug abuse patient.[facility] HospitalIn the event this information is protected by the Federal Confidentiality of Alcohol and Drug Abuse Patient Records regulations: The Federal rules restrict any use of the information to criminally investigate or prosecute any alcohol or drug abuse patient.[facility] HospitalIn the event this information is protected by the Federal Confidentiality of Alcohol and Drug Abuse Patient Records regulations: The Federal rules restrict any use of the information to criminally investigate or prosecute any alcohol or drug abuse patient.[facility] HospitalIn the event this information is protected by the Federal Confidentiality of Alcohol and Drug Abuse Patient Records regulations: The Federal rules restrict any use of the information to criminally investigate or prosecute any alcohol or drug abuse patient.[facility] HospitalIn the event this information is protected by the Federal Confidentiality of Alcohol and Drug Abuse Patient Records regulations: The Federal rules restrict any use of the information to criminally investigate or prosecute any alcohol or drug abuse patient.[facility] HospitalIn the event this information is protected by the Federal Confidentiality of Alcohol and Drug Abuse Patient Records regulations: The Federal rules restrict any use of the information to criminally investigate or prosecute any alcohol or drug abuse patient.[facility] HospitalIn the event this information is protected by the Federal Confidentiality of Alcohol and Drug Abuse Patient Records regulations: The Federal rules restrict any use of the information to criminally investigate or prosecute any alcohol or drug abuse patient.[facility] HospitalIn the event this information is protected by the Federal Confidentiality of Alcohol and Drug Abuse Patient Records regulations: The Federal rules restrict any use of the information to criminally investigate or prosecute any alcohol or drug abuse patient.[facility] HospitalIn the event this information is protected by the Federal Confidentiality of Alcohol and Drug Abuse Patient Records regulations: The Federal rules restrict any use of the information to criminally investigate or prosecute any alcohol or drug abuse patient.[facility] HospitalIn the event this information is protected by the Federal Confidentiality of Alcohol and Drug Abuse Patient Records regulations: The Federal rules restrict any use of the information to criminally investigate or prosecute any alcohol or drug abuse patient.[facility] HospitalIn the event this information is protected by the Federal Confidentiality of Alcohol and Drug Abuse Patient Records regulations: The Federal rules restrict any use of the information to criminally investigate or prosecute any alcohol or drug abuse patient.[facility] HospitalIn the event this information is protected by the Federal Confidentiality of Alcohol and Drug Abuse Patient Records regulations: The Federal rules restrict any use of the information to criminally investigate or prosecute any alcohol or drug abuse patient.[facility] HospitalIn the event this information is protected by the Federal Confidentiality of Alcohol and Drug Abuse Patient Records regulations: The Federal rules restrict any use of the information to criminally investigate or prosecute any alcohol or drug abuse patient.[facility] HospitalIn the event this information is protected by the Federal Confidentiality of Alcohol and Drug Abuse Patient Records regulations: The Federal rules restrict any use of the information to criminally investigate or prosecute any alcohol or drug abuse patient.[facility] HospitalIn the event this information is protected by the Federal Confidentiality of Alcohol and Drug Abuse Patient Records regulations: The Federal rules restrict any use of the information to criminally investigate or prosecute any alcohol or drug abuse patient.[facility] HospitalIn the event this information is protected by the Federal Confidentiality of Alcohol and Drug Abuse Patient Records regulations: The Federal rules restrict any use of the information to criminally investigate or prosecute any alcohol or drug abuse patient.[facility] HospitalIn the event this information is protected by the Federal Confidentiality of Alcohol and Drug Abuse Patient Records regulations: The Federal rules restrict any use of the information to criminally investigate or prosecute any alcohol or drug abuse patient.[facility] HospitalIn the event this information is protected by the Federal Confidentiality of Alcohol and Drug Abuse Patient Records regulations: The Federal rules restrict any use of the information to criminally investigate or prosecute any alcohol or drug abuse patient.[facility] HospitalIn the event this information is protected by the Federal Confidentiality of Alcohol and Drug Abuse Patient Records regulations: The Federal rules restrict any use of the information to criminally investigate or prosecute any alcohol or drug abuse patient.[facility] HospitalIn the event this information is protected by the Federal Confidentiality of Alcohol and Drug Abuse Patient Records regulations: The Federal rules restrict any use of the information to criminally investigate or prosecute any alcohol or drug abuse patient.[facility] HospitalIn the event this information is protected by the Federal Confidentiality of Alcohol and Drug Abuse Patient Records regulations: The Federal rules restrict any use of the information to criminally investigate or prosecute any alcohol or drug abuse patient.[facility] HospitalIn the event this information is protected by the Federal Confidentiality of Alcohol and Drug Abuse Patient Records regulations: The Federal rules restrict any use of the information to criminally investigate or prosecute any alcohol or drug abuse patient.[facility] HospitalIn the event this information is protected by the Federal Confidentiality of Alcohol and Drug Abuse Patient Records regulations: The Federal rules restrict any use of the information to criminally investigate or prosecute any alcohol or drug abuse patient.[facility] HospitalIn the event this information is protected by the Federal Confidentiality of Alcohol and Drug Abuse Patient Records regulations: The Federal rules restrict any use of the information to criminally investigate or prosecute any alcohol or drug abuse patient.[facility] HospitalIn the event this information is protected by the Federal Confidentiality of Alcohol and Drug Abuse Patient Records regulations: The Federal rules restrict any use of the information to criminally investigate or prosecute any alcohol or drug abuse patient.[facility] HospitalIn the event this information is protected by the Federal Confidentiality of Alcohol and Drug Abuse Patient Records regulations: The Federal rules restrict any use of the information to criminally investigate or prosecute any alcohol or drug abuse patient.[facility] HospitalIn the event this information is protected by the Federal Confidentiality of Alcohol and Drug Abuse Patient Records regulations: The Federal rules restrict any use of the information to criminally investigate or prosecute any alcohol or drug abuse patient.[facility] HospitalIn the event this information is protected by the Federal Confidentiality of Alcohol and Drug Abuse Patient Records regulations: The Federal rules restrict any use of the information to criminally investigate or prosecute any alcohol or drug abuse patient.[facility] HospitalIn the event this information is protected by the Federal Confidentiality of Alcohol and Drug Abuse Patient Records regulations: The Federal rules restrict any use of the information to criminally investigate or prosecute any alcohol or drug abuse patient.[facility] HospitalIn the event this information is protected by the Federal Confidentiality of Alcohol and Drug Abuse Patient Records regulations: The Federal rules restrict any use of the information to criminally investigate or prosecute any alcohol or drug abuse patient.[facility] HospitalIn the event this information is protected by the Federal Confidentiality of Alcohol and Drug Abuse Patient Records regulations: The Federal rules restrict any use of the information to criminally investigate or prosecute any alcohol or drug abuse patient.[facility] HospitalIn the event this information is protected by the Federal Confidentiality of Alcohol and Drug Abuse Patient Records regulations: The Federal rules restrict any use of the information to criminally investigate or prosecute any alcohol or drug abuse patient.[facility] HospitalIn the event this information is protected by the Federal Confidentiality of Alcohol and Drug Abuse Patient Records regulations: The Federal rules restrict any use of the information to criminally investigate or prosecute any alcohol or drug abuse patient.[facility] HospitalIn the event this information is protected by the Federal Confidentiality of Alcohol and Drug Abuse Patient Records regulations: The Federal rules restrict any use of the information to criminally investigate or prosecute any alcohol or drug abuse patient.[facility] HospitalIn the event this information is protected by the Federal Confidentiality of Alcohol and Drug Abuse Patient Records regulations: The Federal rules restrict any use of the information to criminally investigate or prosecute any alcohol or drug abuse patient.[facility] HospitalIn the event this information is protected by the Federal Confidentiality of Alcohol and Drug Abuse Patient Records regulations: The Federal rules restrict any use of the information to criminally investigate or prosecute any alcohol or drug abuse patient.[facility] HospitalIn the event this information is protected by the Federal Confidentiality of Alcohol and Drug Abuse Patient Records regulations: The Federal rules restrict any use of the information to criminally investigate or prosecute any alcohol or drug abuse patient.[facility] HospitalIn the event this information is protected by the Federal Confidentiality of Alcohol and Drug Abuse Patient Records regulations: The Federal rules restrict any use of the information to criminally investigate or prosecute any alcohol or drug abuse patient.[facility] HospitalIn the event this information is protected by the Federal Confidentiality of Alcohol and Drug Abuse Patient Records regulations: The Federal rules restrict any use of the information to criminally investigate or prosecute any alcohol or drug abuse patient.[facility] HospitalIn the event this information is protected by the Federal Confidentiality of Alcohol and Drug Abuse Patient Records regulations: The Federal rules restrict any use of the information to criminally investigate or prosecute any alcohol or drug abuse patient.[facility] HospitalIn the event this information is protected by the Federal Confidentiality of Alcohol and Drug Abuse Patient Records regulations: The Federal rules restrict any use of the information to criminally investigate or prosecute any alcohol or drug abuse patient.[facility] HospitalIn the event this information is protected by the Federal Confidentiality of Alcohol and Drug Abuse Patient Records regulations: The Federal rules restrict any use of the information to criminally investigate or prosecute any alcohol or drug abuse patient.[facility] HospitalIn the event this information is protected by the Federal Confidentiality of Alcohol and Drug Abuse Patient Records regulations: The Federal rules restrict any use of the information to criminally investigate or prosecute any alcohol or drug abuse patient.[facility] HospitalIn the event this information is protected by the Federal Confidentiality of Alcohol and Drug Abuse Patient Records regulations: The Federal rules restrict any use of the information to criminally investigate or prosecute any alcohol or drug abuse patient.[facility] HospitalIn the event this information is protected by the Federal Confidentiality of Alcohol and Drug Abuse Patient Records regulations: The Federal rules restrict any use of the information to criminally investigate or prosecute any alcohol or drug abuse patient.[facility] HospitalIn the event this information is protected by the Federal Confidentiality of Alcohol and Drug Abuse Patient Records regulations: The Federal rules restrict any use of the information to criminally investigate or prosecute any alcohol or drug abuse patient.[facility] HospitalIn the event this information is protected by the Federal Confidentiality of Alcohol and Drug Abuse Patient Records regulations: The Federal rules restrict any use of the information to criminally investigate or prosecute any alcohol or drug abuse patient.[facility] HospitalIn the event this information is protected by the Federal Confidentiality of Alcohol and Drug Abuse Patient Records regulations: The Federal rules restrict any use of the information to criminally investigate or prosecute any alcohol or drug abuse patient.[facility] HospitalIn the event this information is protected by the Federal Confidentiality of Alcohol and Drug Abuse Patient Records regulations: The Federal rules restrict any use of the information to criminally investigate or prosecute any alcohol or drug abuse patient.[facility] HospitalIn the event this information is protected by the Federal Confidentiality of Alcohol and Drug Abuse Patient Records regulations: The Federal rules restrict any use of the information to criminally investigate or prosecute any alcohol or drug abuse patient.[facility] HospitalIn the event this information is protected by the Federal Confidentiality of Alcohol and Drug Abuse Patient Records regulations: The Federal rules restrict any use of the information to criminally investigate or prosecute any alcohol or drug abuse patient.[facility] HospitalIn the event this information is protected by the Federal Confidentiality of Alcohol and Drug Abuse Patient Records regulations: The Federal rules restrict any use of the information to criminally investigate or prosecute any alcohol or drug abuse patient.[facility] HospitalIn the event this information is protected by the Federal Confidentiality of Alcohol and Drug Abuse Patient Records regulations: The Federal rules restrict any use of the information to criminally investigate or prosecute any alcohol or drug abuse patient.[facility] Reason for Visit (unrecogniz ed section and content) Reason Comments PT Discharge Specialty Diagnoses / Procedures Referred By Contac t Referred To Contact Physical Therapy / PHYSICAL THERAPY Diagnoses dizziness, vertigo Procedures EST RS PT VESTIBULAR Tiera Miles) [facility] [address] [place] [address] [place] Garcia, PT [address] [place] [address] Referral ID Status Reason Start Date Expiration Date V isits Requested Visits Authorized [id number] Authorized 10/10/2021 10/09/2022 40 40 Reason Comments Orders Reason Comments Patient Question Reason Comments Refill Request Reason Comments Non-Chemotherapy Treatment Specialty Diagnoses / Procedures Referred By Contac t Referred To Contact Diagnoses Multiple myeloma not having achieved remission (HCC) Acute bilateral back pain, unspecified back location Procedures INJECTION, ZOLEDRONIC ACID, 1 MG Dayana Stewart MD [address] [place] [address] [facility] [address] [id number] Referral ID Status Reason Start Date Expiration Date V isits Requested Visits Authorized [id number] Pending Review 08/01/2020 10/09/2022 99 99 Reason Comments Established Patient Reason Comments Results Reason Comments [facility] - Other Medication Ques tion Reason Comments Patient Update Referral ID Status Reason Start Date Expiration Date V isits Requested Visits Authorized [id number] Authorized 08/01/2020 10/09/2022 99 99 Reason Onset Date Comments Refill Request 09/17/2022 Reason Comments Revlimid Patient Assistance Reason Comments Established Patient Reason Comments 2022 Revlimid Assistance Reason Onset Date Comments Refill Request 10/26/2022 Reason Onset Date Comments Opened In Error 10/26/2022 Reason Onset Date Comments Refill Request 11/17/2022 Reason Onset Date Comments Refill Request 11/26/2022 Reason Onset Date Comments Refill Request 12/17/2022 Reason Onset Date Comments Refill Request 12/14/2022 Revlimid Reason Onset Date Comments Refill Request 01/17/2023 [facility]ty Diagnoses / [facility] Diagnoses Multiple myeloma in remission (HCC) Liver mass Procedures MRI LIVER WO/W IVCON MRI ABDOMEN W/O & W/CONTRAST MATERIAL Ghislaine Hutchinson MD [address] [place] [address] Mr Imaging Referral ID Status Reason Start Date Expiration Date V isits Requested Visits Authorized [id number] Closed Auto-Generate d Referral 01/11/2023 02/10/2024 1 1 Reason Onset Date Comments Refill Request 02/15/2023 Reason Comments AVS 03/08/23 Reason Comments Results Reason Comments fax request Reason Comments Care Coordination Follow up Note Reason Onset Date Comments Opened In Error 03/24/2023 Reason Comments Medication Question Reason Comments Consult Possible recurrent p ancreatitis Specialty Diagnoses / Procedures [facility] To Contact Gastroenterology Diagnoses Chronic biliary pancreatitis (HCC) Multiple myeloma in remission (HCC) Procedures CONSULT TO GASTROENTEROLOGY OFFICE/OUTPATIENT [facility] MDM [id number] MINUTES Jadon Styles DO [address] [place] [address] Referral ID Status Reason Start Date Expiration Date V isits Requested Visits Authorized [id number] Closed PCP Requested Referral 03/10/2023 03/09/2024 1 1 Reason Onset Date Comments Refill Request 04/15/2023 Reason Onset Date Comments Refill Request 04/27/2023 Reason Onset Date Comments Refill Request 05/12/2023 Reason Comments Research Carevive Consent Specialty Diagnoses / Procedures [facility] Ref[facility] To Contact Diagnoses Multiple myeloma not having achieved remission (HCC) Acute bilateral back pain, unspecified back location Procedures INJECTION, ZOLEDRONIC ACID, 1 MG Dayana Stewart MD [address] [place] [address] [facility] [address] [place] [address] Referral ID Status Reason Start Date Expiration Date V isits Requested Visits Authorized [id number] Authorized 08/01/2020 05/19/2024 22 22 Reason Comments Question Reason Comments Research Reason Onset Date Comments Refill Request 06/09/2023 Reason Comments Research Carevive Alert Reason Comments Care Coordination Follow Up Note Reason Comments Patient Question Reason Comments Clinician To Clinician Consult Reason Comments Med Change Request Reason Comments Research CAREVIVE Alert Reason Onset Date Comments Refill Request 08/09/2023 Reason Comments Radiology NM Specialty Diagnoses / Procedures Referred By Contac t Referred To Contact MOLECULAR & FUNCTIONAL IMAGING Diagnoses Nausea Procedures NM HEPATOBILIARY W EF AND/OR RX HEPATOBIL SYST IMAG INC GB W/PHARMA INTERVENJ Melissa Cunningham MD [address] [place] [address] Molecular [facility] Functional [facility] [address] [place] [address] Referral ID Status Reason Start Date Expiration Date V isits Requested Visits Authorized [id number] Closed Auto-Generate d Referral 03/22/2023 04/20/2024 1 1 Reason Comments Radiology US Specialty Diagnoses / Procedures Referred By Contac t Referred To Contact US IMAGING Diagnoses Cyst of right kidney Procedures US KIDNEY/BLADDER US RETROPERITONEAL REAL TIME W/IMAGE COMPLETE Jadon Styles, [address] [place] [address] [place] [id number] Referral ID Status Reason Start Date Expiration Date V isits Requested Visits Authorized [id number] Closed Auto-Generate d Referral 01/31/2023 03/01/2024 1 1 Reason Comments 2023 Revlimid Assistance Renewal Reason Onset Date Comments Refill Request 09/12/2023 Reason Comments Care Coordination Nausea Reason Comments Tombstone Erector - Other Symptoms Reason Comments Established Patient Specialty Diagnoses / Procedures Referred By Contac t Referred To Contact MOLECULAR & FUNCTIONAL IMAGING Diagnoses Early satiety Procedures NM GASTRIC EMPTYING SOLID GASTRIC [place] [address] [place] [id number] Molecular [facility] Functional Imaging [address] [place] [address] Referral ID Status Reason Start Date Expiration Date V isits Requested Visits Authorized [id number] Closed Auto-Generate d Referral 12/07/2023 01/05/2025 1 1 [facility]ty Diagnoses / Procedures [facility] To [facility] MR IM[facility]ING Diagnoses Pancreatic cyst Procedures MRI PANC/VENANCIO WO/W IVCON MRI ABDOMEN W/O & W/[place] [address] [place] [phone] [facility] [place] [address] Referral ID Status Reason Start Date Expiration Date V isits Requested Visits Authorized [id number] Closed Auto-Generate d Referral 12/07/2023 01/05/2025 1 1 Reason Comments Patient Update Carevive Alert Reason Comments SERS papers Reason Comments Vomiting Reason Comments Appointment Reason Comments Chemotherapy Treatment Specialty Diagnoses / Procedures [facility] Referred To Contact Diagnoses Multiple myeloma in remission (HCC) Procedures BORTEZOMIB INJECTION Jadon Styles DO [address] [place] [address] [facility] [address] [place] [address] Referral ID Status Reason Start Date Expiration Date V isits Requested Visits Authorized [id number] Authorized 07/04/2024 07/04/2025 99 99 Reason Comments Medication Problem Reason Comments Tombstone Erector - Other C1D1 Post Treat ment Call (velcade) Specialty Diagnoses / Procedures [facility] Referred To Contact Diagnoses Multiple myeloma not having achieved remission (HCC) Procedures BORTEZOMIB INJECTION Jadon Styles, DO [address] [place] [address] [facility] [address] [place] [address] Referral ID Status Reason Start Date Expiration Date V isits Requested Visits Authorized [id number] Pending Review 07/04/2024 07/04/2025 99 99 Reason Comments Follow Up Specialty Diagnoses / Procedures [facility] Referred To Contact Diagnoses Multiple myeloma not having achieved remission (HCC) Procedures INJECTION, ZOLEDRONIC ACID, 1 MG Jadon Styles, DO [address] [place] [address] [facility] [address] [place] [address] Referral ID Status Reason Start Date Expiration Date V [employer] Requested Visits Authorized [id number] Authorized 08/09/2024 08/09/2025 4 4 Reason Onset Date Comments Refill Request 08/23/2024 Specialty Diagnoses / Procedures Referred By [facility] Referred To Contact MR IMAGING Diagnoses Multiple myeloma not having achieved remission (HCC) 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) Compression fracture of thoracic vertebra, unspecified thoracic vertebral level, sequela New daily persistent headache Pathological fracture, other site, initial encounter for fracture Procedures MRI BRAIN WO/W IVCON MRI BRAIN BRAIN STEM W/O W/CONTRAST MATERIAL Jadon Styles, DO [address] [place] [address] [place] [address] Referral ID Status Reason Start Date Expiration Date V isits Requested Visits Authorized [id number] Closed Auto-Generate d Referral 08/13/2024 09/12/2025 1 1 Specialty Diagnoses / Procedures Referred By [facility] t Referred To Contact MR IMAGING Diagnoses Multiple myeloma not having achieved remission (HCC) 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) Compression fracture of thoracic vertebra, unspecified thoracic vertebral level, sequela New daily persistent headache Pathological fracture, other site, initial encounter for fracture Procedures MRI LUMBAR SPINE WO/W IVCON MRI SPINAL CANAL LUMBAR W/O & W/CONTR MATRL Jadon Styles, DO [address] [place] [address] [place] [address] Referral ID Status Reason Start Date Expiration Date V isits Requested Visits Authorized [id number] Closed Auto-Generate d Referral 08/13/2024 09/12/2025 1 1 Specialty Diagnoses / Procedures Referred By Contac t Referred To Contact MR IMAGING Diagnoses Multiple myeloma not having achieved remission (HCC) 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) Compression fracture of thoracic vertebra, unspecified thoracic vertebral level, sequela New daily persistent headache Pathological fracture, other site, initial encounter for fracture Procedures MRI THORACIC SPINE WO/W IVCON MRI SPINAL CANAL THORACIC W/O & W/CONTR Jadon Hendrix, DO [address] [place] [address] [place] [address] Referral ID Status Reason Start Date Expiration Date V isits Requested Visits Authorized [id number] Closed Auto-Generate d Referral 08/13/2024 09/12/2025 1 1 Specialty Diagnoses / Procedures Referred By Contac t Referred To Contact MR IMAGING Diagnoses Multiple myeloma not having achieved remission (HCC) 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) Compression fracture of thoracic vertebra, unspecified thoracic vertebral level, sequela New daily persistent headache Pathological fracture, other site, initial encounter for fracture Procedures MRI CERVICAL SPINE WO/W IVCON MRI SPINAL CANAL CERVICAL W/O & W/CONTR Jadon Hendrix, DO [address] [place] [address] [place] [address] Referral ID Status Reason Start Date Expiration Date V isits Requested Visits Authorized [id number] Closed Auto-Generate d Referral 08/13/2024 09/12/2025 1 1 Specialty Diagnoses / Procedures Referred By Contac t Referred To Contact MR IMAGING Diagnoses Multiple myeloma not having achieved remission (HCC) 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) Compression fracture of thoracic vertebra, unspecified thoracic vertebral level, sequela New daily persistent headache Pathological fracture, other site, initial encounter for fracture Procedures MRI PELVIS ORTHO GENERAL WO/W IVCON MRI ANY JT LOWER EXTREM W/O & W/CONTRAST Jadon Hendrix, DO [address] [place] [address] [place] [address] Referral ID Status Reason Start Date Expiration Date V isits Requested Visits Authorized [id number] Closed Auto-Generate d Referral 08/13/2024 09/12/2025 1 1 Reason Comments Opened In Error Reason Comments Established Patient Reason Comments Radiology NM Specialty Diagnoses / Procedures Referred By [facility] Referred To Contact MOLECULAR & FUNCTIONAL IMAGING Diagnoses Multiple myeloma not having achieved remission (HCC) Procedures NM PET/CT WHOLE BODY SUBSEQUENT PET IMAGING FOR CT ATTENUATION WHOLE BODY Jadon Styles, DO [address] [facility] [place] [address] Molecular & Functional Imaging [address] [place], [place] [id number] Referral ID Status Reason Start Date Expiration Date V isits Requested Visits Authorized [id number] Closed Auto-Generate d Referral 09/11/2024 10/11/2025 1 1 Reason Onset Date Comments Refill Request 10/16/2024 Reason Comments Radiology US Specialty Diagnoses / Procedures [facility] Referred To Contact US IMAGING Diagnoses Thyroid nodule Procedures US THYROID/PARATHYROID US SOFT TISSUE HEAD & NECK REAL TIME IMGE [facility] Shay Smiley [address] [facility] [place] [address] [place] [id number] Referral ID Status Reason Start Date Expiration Date V isits Requested Visits Authorized [id number] Closed Auto-Generate d Referral 10/11/2024 11/10/2025 1 1 Reason Comments Consult Fna thyroid 10/18/2023 US Reason Comments Procedure Thyroid bx Referral ID Status Reason Start Date Expiration Date Visits Requested Visits Authorized [id number] Authorized Clearance Not Met - Admin/Chairm an/Director Advise to Postpone/Res chedule or Not Proceed 11/02/2025 5 5 Specialty Diagnoses / Procedures Referred By Contac t Referred To Contact Diagnoses Multiple myeloma not having achieved remission (HCC) Procedures INJECTION, ZOLEDRONIC ACID, 1 MG Jadon Styles, DO [address] [place] [address] [facility] [address] [place] [address] Reason Onset Date Comments Refill Request 12/04/2024 Reason Comments Tombstone Erector - Other ED Follow-up Reason Comments Follow Up Reason Comments Radiology CT Specialty Diagnoses / Procedures Referred By Contac t Referred To Contact CT IMAGING Diagnoses Pathological fracture, other site, initial encounter for fracture Procedures CT THORACIC SPINE WO IVCON CT THORACIC SPINE W/O CONTRAST MATERIAL Anita Brannon MD [address] [place] [address] Phone: tel: fax: [facility] [place] [address] Referral ID Status Reason Start Date Expiration Date V isits Requested Visits Authorized [id number] Closed Auto-Generate d Referral 12/24/2024 01/23/2026 1 1 Reason Onset Date Comments Refill Request 12/31/2024 Reason Comments Nurse Visit-Blood Draw/Flush Mediport Reason Comments AVS 01/11 Reason Comments First Time Treatment Education Darzalex Reason Comments Tombstone Erector - Other Emla cream Specialty Diagnoses / Procedures Referred By Contac t Referred To Contact Diagnoses Multiple myeloma not having achieved remission (HCC) Procedures INJ, DARATUMUMAB, HYALURONIDASE 10 MG Darzalex Jadon Styles, DO [address] [place] [address] Phone: tel: fax: Jadon Styles, DO [address] [place] [address] Phone: tel: fax: Referral ID Status Reason Start Date Expiration Date V isits Requested Visits Authorized [id number] Authorized 01/25/2025 01/17/2026 99 99 Reason Comments Tombstone Erector - Other C1D1 Post Treat ment Call (Darzalex) Reason Comments Non-Chemotherapy Treatment Blood Draw (CVAD) Reason Comments Blood Draw (CVAD) Specialty Diagnoses / Procedures Referred By Contac t Referred To Contact MOLECULAR & FUNCTIONAL IMAGING Diagnoses Multiple myeloma not having achieved remission (HCC) Procedures NM PET/CT WHOLE BODY SUBSEQUENT PET IMAGING FOR CT ATTENUATION WHOLE BODY Jadon Styles, DO [address] [place] [address] Phone: tel: fax: Molecular Imaging [address] [place] [address] Phone: tel: Referral ID Status Reason Start Date Expiration Date V isits Requested Visits Authorized [id number] Closed Auto-Generate d Referral 04/02/2025 05/02/2026 1 1 Specialty Diagnoses / Procedures Referred By Contac t Referred To Contact Diagnoses Multiple myeloma not having achieved remission (HCC) Procedures INJECTION, ZOLEDRONIC ACID, 1 MG Jadon Styles, [address] [place] [address] Phone: tel: fax: Jadon Styles, [address] [place] [address] Phone: tel: fax: Referral ID Status Reason Start Date Expiration Date V isits Requested Visits Authorized [id number] Authorized 11/02/2024 11/02/2025 3 3 Reason Comments Research 5024 Consent Reason Onset Date Comments Refill Request 06/11/2025 Care Teams (unrecognized sec tion and content) Team Status: Active Member Role Status Dates Elvi SCHULTZ PA-C Primary Care Provider Active Team Status: Inactive Member Role Status Dates Dr. Surjit Santizo MD Emergency Provider Active S tart: December 18, 2024 End: December 23, 2024 No Primary Care Physician Primary Care Provider Active Start: December 18, 2024 End: December 23, 2024 Dr. Gurmeet Watkins DO Admit Provider Active Start: December 18, 2024 End: December 23, 2024 Dr. Gurmeet Watkins DO Other Provider Active Start: December 18, 2024 End: December 23, 2024 Dr. Corin Flores MD Attending Provider Active Start: December 18, 2024 End: December 23, 2024 Team Status: Active Member Role Status Dates Dr. Surjit Santizo MD Emergency Provider Active S tart: December 18, 2024 No Primary Care Physician Primary Care Provider Active Start: December 18, 2024 Dr. Gurmeet Watkins DO Admit Provider Active Start: December 18, 2024 Dr. Gurmeet Watkins DO Attending Provider Active Start: December 18, 2024 Dr. Gurmeet Watkins DO Other Provider Active Start: December 18, 2024 Team Status: Active Member Role Status Dates Dr. Surjit Santizo MD Emergency Provider Active S tart: December 19, 2024 No Primary Care Physician Primary Care Provider Active Start: December 19, 2024 Dr. Gurmeet Watkins DO Admit Provider Active Start: December 19, 2024 Dr. Gurmeet Watkins DO Other Provider Active Start: December 19, 2024 Dr. Corin Flores MD Attending Provider Active Start: December 19, 2024 Dr. Corin Flores MD Other Provider Active Star t: December 19, 2024 Team Status: Active Member Role Status Dates Dr. Surjit Santizo MD Emergency Provider Active S tart: December 20, 2024 No Primary Care Physician Primary Care Provider Active Start: December 20, 2024 Dr. Gurmeet Watkins DO Admit Provider Active Start: December 20, 2024 Dr. Gurmeet Watkins DO Other Provider Active Start: December 20, 2024 Dr. Corin Flores MD Attending Provider Active Start: December 20, 2024 Dr. Corin lFores MD Other Provider Active Star t: December 20, 2024 Team Status: Active Member Role Status Dates Dr. Surjit Santizo MD Emergency Provider Active S tart: December 21, 2024 No Primary Care Physician Primary Care Provider Active Start: December 21, 2024 Dr. Gurmeet Watkins DO Admit Provider Active Start: December 21, 2024 Dr. Gurmeet Watkins DO Other Provider Active Start: December 21, 2024 Dr. Corin Flores MD Attending Provider Active Start: December 21, 2024 Dr. Corin Flores MD Other Provider Active Star t: December 21, 2024 Team Status: Active Member Role Status Dates Dr. Surjit Santizo MD Emergency Provider Active S tart: December 21, 2024 No Primary Care Physician Primary Care Provider Active Start: December 21, 2024 Dr. Gurmeet Watkins DO Admit Provider Active Start: December 21, 2024 Dr. Gurmeet Watkins DO Other Provider Active Start: December 21, 2024 Dr. Corin Flores MD Referring Provider Active Start: December 21, 2024 Dr. Corin Flores MD Other Provider Active Star t: December 21, 2024 Dr. Celso Hernández DO Attending Provider Active Start: December 21, 2024 Team Status: Active Member Role Status Dates No Primary Care Physician Primary Care Provider Active Start: December 22, 2024 End: December 22, 2024 Dr. Erickson Campos MD Attending Provider Active S tart: December 22, 2024 End: December 22, 2024 Dr. Gurmeet Watkins DO Referring Provider Active Start: December 22, 2024 End: December 22, 2024 Team Status: Active Member Role Status Dates Dr. Surjit Santizo MD Emergency Provider Active S tart: December 22, 2024 No Primary Care Physician Primary Care Provider Active Start: December 22, 2024 Dr. Gurmeet Watikns DO Admit Provider Active Start: December 22, 2024 Dr. Gurmeet Watkins DO Other Provider Active Start: December 22, 2024 Dr. Corin Flores MD Attending Provider Active Start: December 22, 2024 Dr. Corin Flores MD Other Provider Active Star t: December 22, 2024 Team Status: Active Member Role Status Dates Dr. Surjit Santizo MD Emergency Provider Active S tart: December 23, 2024 No Primary Care Physician Primary Care Provider Active Start: December 23, 2024 Dr. Gurmeet Watkins DO Admit Provider Active Start: December 23, 2024 Dr. Gurmeet Watkins DO Other Provider Active Start: December 23, 2024 Dr. Corin Flores MD Attending Provider Active Start: December 23, 2024 Dr. Corin Flores MD Other Provider Active Star t: December 23, 2024 Team Status: Inactive Member Role Status Dates No Primary Care Physician Primary Care Provider Active Start: December 26, 2024 End: December 26, 2024 No Primary Care Physician Referring Provider Active Start: December 26, 2024 End: December 26, 2024 MARION Tran Attending Provider Active Start: December 26, 2024 End: December 26, 2024 Team Status: Inactive Member Role Status Dates No Primary Care Physician Primary Care Provider Active Start: December 28, 2024 End: December 28, 2024 MARION Tran Attending Provider Active Start: December 28, 2024 End: December 28, 2024 MARION Tran Referring Provider Active Start: December 28, 2024 End: December 28, 2024 Team Status: Inactive Member Role Status Dates No Primary Care Physician Primary Care Provider Active Start: December 28, 2024 End: December 28, 2024 Dr. Tiera Miles MD Attending Provider Active S tart: December 28, 2024 End: December 28, 2024 Dr. Tiera Miles MD Referring Provider Active S tart: December 28, 2024 End: December 28, 2024 Team Status: Inactive Member Role Status Dates No Primary Care Physician Primary Care Provider Active Start: December 31, 2024 End: December 31, 2024 Dr. Tiera Miles MD Attending Provider Active S tart: December 31, 2024 End: December 31, 2024 Dr. Tiera Miles MD Referring Provider Active S tart: December 31, 2024 End: December 31, 2024 Team Status: Inactive Member Role Status Dates No Primary Care Physician Primary Care Provider Active Start: January 02, 2025 End: January 02, 2025 Dr. Tiera Miles MD Attending Provider Active S tart: January 02, 2025 End: January 02, 2025 Dr. Tiera Miles MD Referring Provider Active S tart: January 02, 2025 End: January 02, 2025 Team Status: Inactive Member Role Status Dates No Primary Care Physician Primary Care Provider Active Start: January 07, 2025 End: January 07, 2025 Dr. Tiera Miles MD Attending Provider Active S tart: January 07, 2025 End: January 07, 2025 Dr. Tiera Miles MD Referring Provider Active S tart: January 07, 2025 End: January 07, 2025 Team Status: Inactive Member Role Status Dates No Primary Care Physician Primary Care Provider Active Start: January 09, 2025 End: January 09, 2025 Dr. Tiera Miles MD Attending Provider Active S tart: January 09, 2025 End: January 09, 2025 Dr. Tiera Miles MD Referring Provider Active S tart: January 09, 2025 End: January 09, 2025 Team Status: Inactive Member Role Status Dates No Primary Care Physician Primary Care Provider Active Start: January 11, 2025 End: January 11, 2025 Dr. Tiera Miles MD Attending Provider Active S tart: January 11, 2025 End: January 11, 2025 Dr. Tiera Miles MD Referring Provider Active S tart: January 11, 2025 End: January 11, 2025 Team Status: Inactive Member Role Status Dates No Primary Care Physician Primary Care Provider Active Start: January 14, 2025 End: January 14, 2025 Dr. Tiera Miles MD Attending Provider Active S tart: January 14, 2025 End: January 14, 2025 Dr. Tiera Miles MD Referring Provider Active S tart: January 14, 2025 End: January 14, 2025 Team Status: Inactive Member Role Status Dates No Primary Care Physician Primary Care Provider Active Start: January 16, 2025 End: January 16, 2025 Dr. Tiera Miles MD Attending Provider Active S tart: January 16, 2025 End: January 16, 2025 Dr. Tiera Miles MD Referring Provider Active S tart: January 16, 2025 End: January 16, 2025 Team Status: Inactive Member Role Status Dates Dr. Tiera Miles MD Attending Provider Active S tart: January 18, 2025 End: January 18, 2025 Dr. Tiera Miles MD Referring Provider Active S tart: January 18, 2025 End: January 18, 2025 [place] PA, PA-C Primary Care Provider Active Start: January 18, 2025 End: January 18, 2025 Team Status: Inactive Member Role Status Dates Dr. Celso Hernández DO Attending Provider Active Start: January 18, 2025 End: January 18, 2025 [facility] PA, PA-C Primary Care Provider Active Start: January 18, 2025 End: January 18, 2025 [facility] PA, PA-C Referring Provider Active Start: January 18, 2025 End: January 18, 2025 Team Status: Active Member Role Status Dates Dr. Celso Hernández DO Attending Provider Active Start: January 18, 2025 Dr. Celso Hernández DO Other Provider Active St art: January 18, 2025 Elvi [place] PA, PA-C Primary Care Provider Active Start: January 18, 2025 [facility] PA, PA-C Referring Provider Active Start: January 18, 2025 Team Status: Inactive Member Role Status Dates Dr. Tiera Miles MD Attending Provider Active S tart: January 21, 2025 End: January 21, 2025 Dr. Tiera Miles MD Referring Provider Active S tart: January 21, 2025 End: January 21, 2025 Elvi [place] PA, PA-C Primary Care Provider Active Start: January 21, 2025 End: January 21, 2025 Team Status: Inactive Member Role Status Dates Dr. Tiera Miles MD Attending Provider Active S tart: January 23, 2025 End: January 23, 2025 Dr. Tiera Miles MD Referring Provider Active S tart: January 23, 2025 End: January 23, 2025 Elvi [place] PA, PA-C Primary Care Provider Active Start: January 23, 2025 End: January 23, 2025 Team Status: Inactive Member Role Status Dates Elvi [place] PA, PA-C Primary Care Provider Active Start: January 25, 2025 End: January 25, 2025 Dr. Melissa Silvestre DO Attending Provider Active Start: January 25, 2025 End: January 25, 2025 Dr. Melissa Silvestre DO Emergency Provider Active Start: January 25, 2025 End: January 25, 2025 Team Status: Inactive Member Role Status Dates Dr. Tiera Miles MD Attending Provider Active S tart: January 28, 2025 End: January 28, 2025 Dr. Tiera Miles MD Referring Provider Active S tart: January 28, 2025 End: January 28, 2025 [place] PA, PA-C Primary Care Provider Active Start: January 28, 2025 End: January 28, 2025 Team Status: Inactive Member Role Status Dates Dr. Tiera Miles MD Attending Provider Active S tart: January 30, 2025 End: January 30, 2025 Dr. Tiera Miles MD Referring Provider Active S tart: January 30, 2025 End: January 30, 2025 [place] PA, PA-C Primary Care Provider Active Start: January 30, 2025 End: January 30, 2025 Team Status: Inactive Member Role Status Dates [facility] PA, PA-C Primary Care Provider Active Start: February 18, 2025 End: February 18, 2025 Dr. Kingsley Kunz , DO Emergency Provider Active Start: February 18, 2025 End: February 18, 2025 Glue Drier Operator Relationship Specialty Start Date End Date Pia Gambino MD [address] [address] PCP - General Internal Medicine 12/15/20 Zakiya Han RN [address] [place] [address] Vegetable Ii Farmworker Hematology/Oncology 12/23/21 Glue Drier Operator Relationship Specialty Start Date End Date Pia Gambino MD [address] [place] [place] [address] PCP - General Internal Medicine 12/15/20 Zakiya Han RN [address] [place] [address] Vegetable Ii Farmworker Hematology/Oncology 12/23/21 Glue Drier Operator Relationship Specialty Start Date End Date Pia Gambino MD [address] [place] [address] PCP - General Internal Medicine 12/15/20 Zakiya Han RN [address] [place] [address] Vegetable Ii Farmworker Hematology/Oncology 12/23/21 Glue Drier Operator Relationship Specialty Start Date End Date Pia Gambino MD [address] [place] [place] [address] PCP - General Internal Medicine 12/15/20 Zakiya Han RN [address] [place] [id number] [employer] Hematology/Oncology 12/23/21 Glue Drier Operator Relationship Specialty Start Date End Date Pia Gambino MD [address] [address] PCP - General Internal Medicine 12/15/20 Zakiya Han RN [address] [place] [address] Specialty Tombstone Erector Hematology/Oncology 12/23/21 Glue Drier Operator Relationship Specialty Start Date End Date Pia Gambino MD [address] [place] [address] PCP - General Internal Medicine 12/15/20 Zakiya Han RN [address] [place] [address] Specialty Tombstone Erector Hematology/Oncology 12/23/21 Glue Drier Operator Relationship Specialty Start Date End Date Pia Gambino MD [address] [place] [address] PCP - General Internal Medicine 12/15/20 Zakiya Han RN [address] [place] [address] Specialty Tombstone Erector Hematology/Oncology 12/23/21 Glue Drier Operator Relationship Specialty Start Date End Date Pia Gambino MD [address] [place] [address] PCP - General Internal Medicine 12/15/20 Zakiya Han RN [address] [place] [address] Specialty Tombstone Erector Hematology/Oncology 12/23/21 Glue Drier Operator Relationship Specialty Start Date End Date Pia Gambino MD [address] [place] [address] PCP - General Internal Medicine 12/15/20 Zakiya Han RN [address] [place] [address] Specialty Tombstone Erector Hematology/Oncology 12/23/21 Glue Drier Operator Relationship Specialty Start Date End Date Pia Gambino MD [address] [place] [address] PCP - General Internal Medicine 12/15/20 Zakiya Han RN [address] [place] [address] Specialty Tombstone Erector Hematology/Oncology 12/23/21 Glue Drier Operator Relationship Specialty Start Date End Date Pia Gambino MD [address] [place] [address] PCP - General Internal Medicine 12/15/20 Zakiya Han RN [address] [place] [address] Specialty Tombstone Erector Hematology/Oncology 12/23/21 Glue Drier Operator Relationship Specialty Start Date End Date Pia Gambino MD [address] [place] [address] PCP - General Internal Medicine 12/15/20 Zakiya Han RN [address] [place] [address] Specialty Tombstone Erector Hematology/Oncology 12/23/21 Glue Drier Operator Relationship Specialty Start Date End Date Pia Gambino MD [address] [place] [address] PCP - General Internal Medicine 12/15/20 Zakiya Han RN [address] [place] [address] Specialty Tombstone Erector Hematology/Oncology 12/23/21 Glue Drier Operator Relationship Specialty Start Date End Date Pia Gambino MD [address] [place] [address] PCP - General Internal Medicine 12/15/20 Zakiya Han, STACI [address] [place] [address] Specialty Tombstone Erector Hematology/Oncology 12/23/21 Glue Drier Operator Relationship Specialty Start Date End Date Pia Gambino MD [address] [place] [address] PCP - General Internal Medicine 12/15/20 Zakiya Han, STACI [address] [place] [address] Specialty Tombstone Erector Hematology/Oncology 12/23/21 Glue Drier Operator Relationship Specialty Start Date End Date Pia Gambino MD [address] [place] [address] PCP - General Internal Medicine 12/15/20 Zakiya Han, STACI [address] [place] [address] Specialty Tombstone Erector Hematology/Oncology 12/23/21 Glue Drier Operator Relationship Specialty Start Date End Date Pia Gambino MD [address] [place] [address] PCP - General Internal Medicine 12/15/20 Zakiya Han RN [address] [place] [address] Specialty Tombstone Erector Hematology/Oncology 12/23/21 Dayana Stewart MD [address] [place] [address] Hematology/Oncology 09/21/22 Glue Drier Operator Relationship Specialty Start Date End Date Pia Gambino MD [address] [place] [address] PCP - General Internal Medicine 12/15/20 Zakiya Han, STACI [address] [place] [address] Specialty Tombstone Erector Hematology/Oncology 12/23/21 Dayana Stewart MD [address] [place] [address] Hematology/Oncology 09/21/22 Glue Drier Operator Relationship Specialty Start Date End Date Pia Gambino MD [address] [place] [address] PCP - General Internal Medicine 12/15/20 Zakiya Han, STACI [address] [place] [address] Specialty Tombstone Erector Hematology/Oncology 12/23/21 Dayana Stewart MD [address] [place] [address] Hematology/Oncology 09/21/22 Glue Drier Operator Relationship Specialty Start Date End Date Pia Gambino MD [address] [place] [address] PCP - General Internal Medicine 12/15/20 Zakiya Han, STACI [address] [place] [address] Specialty Tombstone Erector Hematology/Oncology 12/23/21 Dayana Stewart MD [address] [place] [address] Hematology/Oncology 09/21/22 Glue Drier Operator Relationship Specialty Start Date End Date Pia Gambino MD [address] [place] [address] PCP - General Internal Medicine 12/15/20 Zakiya Han, STACI [address] [place] [address] Specialty Tombstone Erector Hematology/Oncology 12/23/21 Dayana Stewart MD [address] [place] [address] Hematology/Oncology 09/21/22 Glue Drier Operator Relationship Specialty Start Date End Date Pia Gambino MD [address] [place] [address] PCP - General Internal Medicine 12/15/20 Zakiya Han RN [address] [place] [address] Specialty Tombstone Erector Hematology/Oncology 12/23/21 Dayana Stewart MD [address] [place] [address] Hematology/Oncology 09/21/22 Glue Drier Operator Relationship Specialty Start Date End Date Pia Gambino MD [address] [place] [address] PCP - General Internal Medicine 12/15/20 Zakiya Han, STACI [address] [place] [address] Specialty Tombstone Erector Hematology/Oncology 12/23/21 Dayana Stewart MD [address] [place] [address] Hematology/Oncology 09/21/22 Glue Drier Operator Relationship Specialty Start Date End Date Pia Gambino MD [address] [place] [address] PCP - General Internal Medicine 12/15/20 Zakiya Han, STACI [address] [place] [address] Specialty Tombstone Erector Hematology/Oncology 12/23/21 Dayana Stewart MD [address] [place] [address] Hematology/Oncology 09/21/22 Glue Drier Operator Relationship Specialty Start Date End Date Pia Gambino MD [address] [place] [address] PCP - General Internal Medicine 12/15/20 Zakiya Han, STACI [address] [place] [address] Specialty Tombstone Erector Hematology/Oncology 12/23/21 Dayana Stewart MD [address] [place] [address] Hematology/Oncology 09/21/22 Glue Drier Operator Relationship Specialty Start Date End Date Pia Gambino MD [address] [place] [address] PCP - General Internal Medicine 12/15/20 Zakiya Han, STACI [address] [place] [address] Specialty Tombstone Erector Hematology/Oncology 12/23/21 Dayana Stewart MD [address] [place] [address] Hematology/Oncology 09/21/22 Glue Drier Operator Relationship Specialty Start Date End Date Pia Gambino MD [address] [place] [address] PCP - General Internal Medicine 12/15/20 Zakiya Han RN [address] [place] [address] Specialty Tombstone Erector Hematology/Oncology 12/23/21 Dayana Stewart MD [address] [place] [address] Hematology/Oncology 09/21/22 Glue Drier Operator Relationship Specialty Start Date End Date Ysabel Esteban, DEVELOPMENT COACH [address] [place] [address] PCP - General Family Medicine 01/31/23 Zakiya Han RN [address] [place] [address] Specialty Tombstone Erector Hematology/Oncology 12/23/21 Dayana Stewart MD [address] [place] [address] Hematology/Oncology 09/21/22 Glue Drier Operator Relationship Specialty Start Date End Date Ysabel Esteban, DEVELOPMENT COACH [address] [place] [address] PCP - General Family Medicine 01/31/23 Zakiya Han, STACI [address] [place] [address] Specialty Tombstone Erector Hematology/Oncology 12/23/21 Glue Drier Operator Relationship Specialty Start Date End Date Ysabel Esteban, DEVELOPMENT COACH [address] [place] [address] PCP - General Family Medicine 01/31/23 Zakiya Han, RN [address] [place] [address] Specialty Tombstone Erector Hematology/Oncology 12/23/21 Glue Drier Operator Relationship Specialty Start Date End Date Ysabel Esteban, DEVELOPMENT COACH [address] [place] [address] PCP - General Family Medicine 01/31/23 03/09/23 Zakiya Han, RN [address] [place] [address] Specialty Tombstone Erector Hematology/Oncology 12/23/21 Glue Drier Operator Relationship Specialty Start Date End Date Ysabel Esteban, DEVELOPMENT COACH [address] [place] [address] PCP - General Family Medicine 01/31/23 03/09/23 Pia Gambino MD [address] [place] [address] PCP - General Internal Medicine 03/10/23 Zakiya Han RN [address] [place] [facility] [address] Specialty Tombstone Erector Hematology/Oncology 12/23/21 Ajit Herbert MD [address] [place] [address] Urology 03/10/23 [facility] [address] [place] [address] 03/10/23 Glue Drier Operator Relationship Specialty Start Date End Date Pia Gambino MD [address] [place] [address] PCP - General Internal Medicine 03/10/23 Zakiya Han RN [address] [place] [address] Specialty Tombstone Erector Hematology/Oncology 12/23/21 Ajit Herbert MD [address] [place] [address] Urology 03/10/23 [facility] [address] [place] [address] 03/10/23 Glue Drier Operator Relationship Specialty Start Date End Date Pia Gambino MD [address] [place] [address] PCP - General Internal Medicine 03/10/23 Zakiya Han, STACI [address] [place] [address] Specialty Tombstone Erector Hematology/Oncology 12/23/21 Ajit Herbert MD [address] [address] [place] [address] Urology 03/10/23 [facility] [address] [place] [address] 03/10/23 Glue Drier Operator Relationship Specialty Start Date End Date Pia Gambino MD [address] [place] [address] PCP - General Internal Medicine 03/10/23 Zakiya Han, STACI [address] [place] [address] Specialty Tombstone Erector Hematology/Oncology 12/23/21 Ajit Herbert MD [address] [address] [place] [address] Urology 03/10/23 [facility] [address] [place] [address] 03/10/23 Glue Drier Operator Relationship Specialty Start Date End Date Pia Gambino MD [address] [place] [address] PCP - General Internal Medicine 03/10/23 Zakiya Han RN [address] [place] [address] Specialty Tombstone Erector Hematology/Oncology 12/23/21 Ajit Herbert MD [address] [address] [place] [address] Urology 03/10/23 [facility] [address] [place] [address] 03/10/23 Glue Drier Operator Relationship Specialty Start Date End Date Pia Gambino MD [address] [place] [address] PCP - General Internal Medicine 03/10/23 Zakiya Han RN [address] [place] [address] Specialty Tombstone Erector Hematology/Oncology 12/23/21 Ajit Herbert MD [address] [address] [place] [address] Urology 03/10/23 [facility] [address] [place] [address] 03/10/23 Glue Drier Operator Relationship Specialty Start Date End Date Pia Gambino MD [address] [place] [address] PCP - General Internal Medicine 03/10/23 Zakiya Han RN [address] [place] [address] Specialty Tombstone Erector Hematology/Oncology 12/23/21 Ajit Herbert MD [address] [address] [place] [address] Urology 03/10/23 [facility] [address] [place] [address] 03/10/23 Glue Drier Operator Relationship Specialty Start Date End Date Pia Gambino MD [address] [place] [address] PCP - General Internal Medicine 03/10/23 Zakiya Han RN [address] [place] [address] Specialty Tombstone Erector Hematology/Oncology 12/23/21 Ajit Herbert MD [address] [address] [place] [address] Urology 03/10/23 [facility] [address] [place] [address] 03/10/23 Glue Drier Operator Relationship Specialty Start Date End Date Pia Gambino MD [address] [place] [address] PCP - General Internal Medicine 03/10/23 Zakiya Han RN [address] [place] [address] Specialty Tombstone Erector Hematology/Oncology 12/23/21 Ajit Herbert MD [address] [address] [place] [address] Urology 03/10/23 [facility] [address] [place] [place] [address] 03/10/23 Glue Drier Operator Relationship Specialty Start Date End Date Pia Gambino MD [address] [address] PCP - General Internal Medicine 03/10/23 Zakiya Han RN [address] [place] [address] Specialty Tombstone Erector Hematology/Oncology 12/23/21 Ajit Herbert MD [address] [address] [place] [address] Urology 03/10/23 [facility] [address] [place] [address] 03/10/23 Glue Drier Operator Relationship Specialty Start Date End Date Pia Gambino MD [address] [place] [address] PCP - General Internal Medicine 03/10/23 Zakiya Han RN [address] [place] [address] Specialty Tombstone Erector Hematology/Oncology 12/23/21 Ajit Herbert MD [address] [address] [place] [address] Urology 03/10/23 [facility] [address] [place] [address] 03/10/23 Glue Drier Operator Relationship Specialty Start Date End Date Pia Gambino MD [address] [place] [address] PCP - General Internal Medicine 03/10/23 Zakiya Han RN [address] [place] [address] Specialty Tombstone Erector Hematology/Oncology 12/23/21 Ajit Herbert MD [address] [place] [address] Urology 03/10/23 [facility] [address] [place] [place] [address] 03/10/23 Glue Drier Operator Relationship Specialty Start Date End Date Ysabel Esteban, DEVELOPMENT COACH [address] [place] [address] PCP - General Family Medicine 05/30/23 Zakiya Han, RN [address] [place] [place] [address] Specialty Tombstone Erector Hematology/Oncology 12/23/21 Ajit Herbert MD [address] [place] [address] Urology 03/10/23 [facility] [address] [place] [place] [address] 03/10/23 Bairon Heath MD [address] [place] [place] [address] Hematology/Oncology 05/27/23 Glue Drier Operator Relationship Specialty Start Date End Date Ysabel Esteban, DEVELOPMENT COACH [address] [place] [address] PCP - General Family Medicine 05/30/23 Zakiya Han, RN [address] [place] [address] Specialty Tombstone Erector Hematology/Oncology 12/23/21 Ajit Herbert MD [address] [address] [place] [address] Urology 03/10/23 [facility] [address] [place] [place] [address] 03/10/23 Bairon Heath MD [address] [place] [place] [address] Hematology/Oncology 05/27/23 Glue Drier Operator Relationship Specialty Start Date End Date Ysabel Esteban, DEVELOPMENT COACH [address] [place] [address] PCP - General Family Medicine 05/30/23 Zakiya Han RN [address] [place] [address] Specialty Tombstone Erector Hematology/Oncology 12/23/21 Ajit Herbert MD [address] [address] [place] [address] Urology 03/10/23 [facility] [address] [place] [place] [address] 03/10/23 Bairon Heath MD [address] [place] [place] [address] Hematology/Oncology 05/27/23 Glue Drier Operator Relationship Specialty Start Date End Date Ysabel Esteban, DEVELOPMENT COACH [address] [place] [address] PCP - General Family Medicine 05/30/23 Zakiya Han RN [address] [place] [address] Specialty Tombstone Erector Hematology/Oncology 12/23/21 Ajit Herbert MD [address] [place] [address] Urology 03/10/23 [facility] [address] [place] [address] 03/10/23 Bairon Heath MD [address] [place] [place] [address] Hematology/Oncology 05/27/23 Glue Drier Operator Relationship Specialty Start Date End Date Ysabel Esteban, DEVELOPMENT COACH [address] [place] [address] PCP - General Family Medicine 05/30/23 Zakiya Han RN [address] [place] [place] [address] Specialty Tombstone Erector Hematology/Oncology 12/23/21 Ajit Herbert MD [address] [place] [address], [place] [address] Urology 03/10/23 [facility] [address] [place] [address] 03/10/23 Bairon Heath MD [address] [place] [address] Hematology/Oncology 05/27/23 Glue Drier Operator Relationship Specialty Start Date End Date Ysabel Esteban, DEVELOPMENT COACH [address] [place] [address] PCP - General Family Medicine 05/30/23 Zakiya Han RN [address] [place] [address] Specialty Tombstone Erector Hematology/Oncology 12/23/21 Ajit Herbert MD [address] [place] [address] [place] [address] Urology 03/10/23 [facility] [address] [place] [address] 03/10/23 Bairon Heath MD [address] [place] [address] Hematology/Oncology 05/27/23 Glue Drier Operator Relationship Specialty [place] [address] [place] [address] [place] [address] PCP - General Internal Medicine 03/10/23 05/29/23 Zakiya Han RN [address] [place] [address] Specialty Tombstone Erector Hematology/Oncology 12/23/21 Ajit Herbert MD [address] [place] [address] [place] [address] Urology 03/10/23 [facility] [address] [place] [address] 03/10/23 Glue Drier Operator Relationship Specialty Start Date End Date Ysabel Esteban, DEVELOPMENT COACH [address] [place] [address] PCP - General Family Medicine 01/31/23 03/09/23 Zakiya Han RN [address] [place] [place] [address] Specialty Tombstone Erector Hematology/Oncology 12/23/21 Dayana Stewart MD [address] [place] [place] [address] Hematology/Oncology 09/21/22 03/07/23 Glue Drier Operator Relationship Specialty Start Date End Date Ysabel Esteban, DEVELOPMENT COACH [address] [place] [address] PCP - General Family Medicine 01/31/23 03/09/23 Zakiya Han RN [address] [place] [address] Specialty Tombstone Erector Hematology/Oncology 12/23/21 Dayana Stewart MD [address] [place] [address] Hematology/Oncology 09/21/22 03/07/23 Glue Drier Operator Relationship Specialty Start Date End Date Ysabel Esteban, DEVELOPMENT COACH [address] [place] [address] PCP - General Family Medicine 05/30/23 Zakiya Han RN [address] [place] [address] Specialty Tombstone Erector Hematology/Oncology 12/23/21 Ajit Herbert MD [address] [address] [place] [address] Urology 03/10/23 [facility] [address] [place] [address] 03/10/23 Bairon Heath MD [address] [place] [place] [address] Hematology/Oncology 05/27/23 Glue Drier Operator Relationship Specialty Start Date End Date Ysabel Esteban, DEVELOPMENT COACH [address] [place] [address] PCP - General Family Medicine 05/30/23 Zakiya Han RN [address] [place] [place] [address] Specialty Tombstone Erector Hematology/Oncology 12/23/21 Ajit Herbert MD [address] [place] [address] Urology 03/10/23 [facility] [address] [place] [address] 03/10/23 Bairon Heath MD [address] [place] [place] [address] Hematology/Oncology 05/27/23 Glue Drier Operator Relationship Specialty Start Date End Date Ysabel Esteban, DEVELOPMENT COACH [address] [place] [address] PCP - General Family Medicine 05/30/23 Zakiya Han, STACI [address] [place] [address] Specialty Tombstone Erector Hematology/Oncology 12/23/21 Ajit Herbert MD [address] [place] [address] Urology 03/10/23 [facility] [address] [place] [place] [address] 03/10/23 Bairon Heath MD [address] [place] [place] [address] Hematology/Oncology 05/27/23 Glue Drier Operator Relationship Specialty Start Date End Date Ysabel Esteban, DEVELOPMENT COACH [address] [place] [address] PCP - General Family Medicine 05/30/23 Zakiya Han, STACI [address] [place] [address] Specialty Tombstone Erector Hematology/Oncology 12/23/21 Ajit Herbert MD [address] [address] [place] [address] Urology 03/10/23 [facility] [address] [place] [place] [address] 03/10/23 Bairon Heath MD [address] [place] [place] [address] Hematology/Oncology 05/27/23 Glue Drier Operator Relationship Specialty Start Date End Date Ysabel sEteban, DEVELOPMENT COACH [address] [place] [address] PCP - General Family Medicine 05/30/23 Zakiya Han, STACI [address] [place] [place] [address] Specialty Tombstone Erector Hematology/Oncology 12/23/21 Ajit Herbert MD [address] [address] [place] [address] Urology 03/10/23 [facility] [address] [place] [address] 03/10/23 Bairon Heath MD [address] [place] [place] [address] Hematology/Oncology 05/27/23 Glue Drier Operator Relationship Specialty Start Date End Date Ysabel Esteban, DEVELOPMENT COACH [address] [place] [address] PCP - General Family Medicine 05/30/23 Zakiya Han RN [address] [place] [place] [address] Specialty Tombstone Erector Hematology/Oncology 12/23/21 Ajit Herbert MD [address] [place] [address] [place] [address] Urology 03/10/23 [facility] [address] [place] [address] 03/10/23 Bairon Heath MD [address] [place] [place] [address] Hematology/Oncology 05/27/23 Glue Drier Operator Relationship Specialty Start Date End Date Ysabel Esteban, DEVELOPMENT COACH [address] [place] [address] PCP - General Family Medicine 05/30/23 Zakiya Han, STACI [address] [place] [place] [address] Specialty Tombstone Erector Hematology/Oncology 12/23/21 Ajit Herbert MD [address] [place] [address], [place] [address] Urology 03/10/23 [facility] [address] [place], [place] [address] 03/10/23 Bairon Heath MD [address] [place] [place] [address] Hematology/Oncology 05/27/23 Glue Drier Operator Relationship Specialty Start Date End Date Ysabel Esteban, DEVELOPMENT COACH [address] [place] [address] PCP - General Family Medicine 05/30/23 Zakiya Han, RN [address] [place] [address] Specialty Tombstone Erector Hematology/Oncology 12/23/21 Ajit Herbert MD [address] [place] [address] [place] [address] Urology 03/10/23 [facility] [address] [place] [place] [address] 03/10/23 Bairon Heath MD [address] [place] [place] [address] Hematology/Oncology 05/27/23 Glue Drier Operator Relationship Specialty Start Date End Date Ysabel Esteban, DEVELOPMENT COACH [address] [place] [address] PCP - General Family Medicine 05/30/23 Zakiya Han, RN [address] [place] [place] [address] Specialty Tombstone Erector Hematology/Oncology 12/23/21 Ajit Herbert MD [address] [address] [place] [address] Urology 03/10/23 [facility] [address] [place] [place] [address] 03/10/23 Bairon Heath MD [address] [place] [place] [address] Hematology/Oncology 05/27/23 Glue Drier Operator Relationship Specialty Start Date End Date Ysabel Esteban, DEVELOPMENT COACH [address] [place] [address] PCP - General Family Medicine 05/30/23 Zakiya Han, STACI [address] [place] [address] Specialty Tombstone Erector Hematology/Oncology 12/23/21 Ajit Herbert MD [address] [address] [place] [address] Urology 03/10/23 [facility] [address] [place] [place] [address] 03/10/23 Jadon Styles DO [address] [place] [address] Hematology/Oncology 06/21/24 Tiera Miles) [facility] [address] [place] [address] Family Medicine 06/21/24 Glue Drier Operator Relationship Specialty Start Date End Date Ysabel Esteban, DEVELOPMENT COACH [address] [place] [address] PCP - General Family Medicine 05/30/23 Zakiya Han, STACI [address] [place] [address] Specialty Tombstone Erector Hematology/Oncology 12/23/21 Ajit Herbert MD [address] [place] [address], [place] [address] Urology 03/10/23 [facility] [address] [place] [address] 03/10/23 Jadon Styles DO [address] [place] [address] Hematology/Oncology 06/21/24 Tiera Miles) [facility] [place] [address] [place] [address] Family Medicine 06/21/24 Glue Drier Operator Relationship Specialty Start Date End Date Ysabel Esteban, DEVELOPMENT COACH [address] [place] [address] PCP - General Family Medicine 05/30/23 Zakiya Han, STACI [address] [place] [address] Specialty Tombstone Erector Hematology/Oncology 12/23/21 Ajit Herbert MD [address], [place] [address] Urology 03/10/23 [facility] [address] [place] [address] 03/10/23 Jadon Styles DO [address] [place] [address] Hematology/Oncology 06/21/24 Tiera Miles [facility] [address] [place] [address] Family Medicine 06/21/24 Glue Drier Operator Relationship Specialty Start Date End Date Ysabel Esteban, DEVELOPMENT COACH [address] [place] [address] PCP - General Family Medicine 05/30/23 Zakiya Han, STACI [address] [place] [address] Specialty Tombstone Erector Hematology/Oncology 12/23/21 Ajit Herbert MD [address] [place] [address] Urology 03/10/23 [facility] [address] [place] [address] 03/10/23 Jadon Styles DO [address] [place] [address] Hematology/Oncology 06/21/24 Tiera Miles [facility] [address] [place] [address] Family Medicine 06/21/24 Glue Drier Operator Relationship Specialty Start Date End Date Ysabel Esteban, DEVELOPMENT COACH [address] [place] [address] PCP - General Family Medicine 05/30/23 Zakiya Han, STACI [address] [place] [address] Specialty Tombstone Erector Hematology/Oncology 12/23/21 Ajit Herbert MD [address] [place] [address] Urology 03/10/23 [facility] [address] [place] [address] 03/10/23 Jadon Styles DO [address] [place] [address] Hematology/Oncology 06/21/24 Tiera Miles [facility] [place] [address] [place] [address] Family Medicine 06/21/24 Glue Drier Operator Relationship Specialty Start Date End Date Ysabel Esteban, DEVELOPMENT COACH [address] [place] [address] PCP - General Family Medicine 05/30/23 Zakiya Han, RN [address] [place] [address] Specialty Tombstone Erector Hematology/Oncology 12/23/21 Ajit Herbert MD [address] [place] [address], [place] [address] Urology 03/10/23 [facility] [address] [place] [address] 03/10/23 Jadon Styles DO [address] [place] [place] [address] Hematology/Oncology 06/21/24 Tiera Miles [facility] [address] [place] [address] Family Medicine 06/21/24 Glue Drier Operator Relationship Specialty Start Date End Date Ysabel Esteban, DEVELOPMENT COACH [address] [place] [address] PCP - General Family Medicine 05/30/23 Zakiya Han, RN [address] [place] [place] [address] Specialty Tombstone Erector Hematology/Oncology 12/23/21 Ajit Herbert MD [address] [place] [address] Urology 03/10/23 [facility] [address] [place] [address] 03/10/23 Jadon Styles DO [address] [place] [address] Hematology/Oncology 06/21/24 Tiera Miles [facility] [address] [place] [address] Family Medicine 06/21/24 Glue Drier Operator Relationship Specialty Start Date End Date Ysabel Esteban, DEVELOPMENT COACH [address] [place] [address] PCP - General Family Medicine 05/30/23 Zakiya Han, RN [address] [place] [place] [address] Specialty Tombstone Erector Hematology/Oncology 12/23/21 Ajit Herbert MD [address] [address] [place] [address] Urology 03/10/23 [facility] [address] [place] [address] 03/10/23 Jadon Styles DO [address] [place] [address] Hematology/Oncology 06/21/24 Tiera Miles [facility] [place] [address] [place] [address] Family Medicine 06/21/24 Glue Drier Operator Relationship Specialty Start Date End Date Ysabel Esteban, DEVELOPMENT COACH [address] [place] [address] PCP - General Family Medicine 05/30/23 Zakiya Han, RN [address] [place] [address] Specialty Tombstone Erector Hematology/Oncology 12/23/21 Ajit Herbert MD [address] [place] [address] Urology 03/10/23 [facility] [address] [place] [place] [address] 03/10/23 Jadon Styles DO [address] [place] [address] Hematology/Oncology 06/21/24 Tiera Miles [facility] [place] [address] [place] [address] Family Medicine 06/21/24 Glue Drier Operator Relationship Specialty Start Date End Date Ysabel Esteban CNP [address] [place] [address] PCP - General Family Medicine 05/30/23 Zakiya Han, STACI [address] [place] [address] Specialty Tombstone Erector Hematology/Oncology 12/23/21 Ajit Herbert MD [address] [place] [address] Urology 03/10/23 [facility] [address] [place] [address] 03/10/23 Jadon Styles DO [address] [place] [address] Hematology/Oncology 06/21/24 Tiera Miles [facility] [place] [address] [place] [address] Family Medicine 06/21/24 Glue Drier Operator Relationship Specialty Start Date End Date Ysabel Esteban, DEVELOPMENT COACH [address] [place] [address] PCP - General Family Medicine 05/30/23 Zakiya Han, STACI [address] [place] [address] Specialty Tombstone Erector Hematology/Oncology 12/23/21 Ajit Herbert MD [address] [place] [address] Urology 03/10/23 [facility] [address] [place] [address] 03/10/23 Jadon Styles DO [address] [place] [address] Hematology/Oncology 06/21/24 Tiera Miles [facility] [address] [place] [address] Family Medicine 06/21/24 Glue Drier Operator Relationship Specialty Start Date End Date Ysabel Esteban, DEVELOPMENT COACH [address] [place] [address] PCP - General Family Medicine 05/30/23 Zakiya Han, STACI [address] [place] [address] Specialty Tombstone Erector Hematology/Oncology 12/23/21 Ajit Herbert MD [address] [place] [address] Urology 03/10/23 [facility] [address] [place] [address] 03/10/23 Jadon Styles DO [address] [place] [address] Hematology/Oncology 06/21/24 Tiera Miles [facility] [address] [place] [address] Family Medicine 06/21/24 Glue Drier Operator Relationship Specialty Start Date End Date Ysabel Esteban, DEVELOPMENT COACH [address] [place] [address] PCP - General Family Medicine 05/30/23 Zakiya Han, STACI [address] [place] [address] Specialty Tombstone Erector Hematology/Oncology 12/23/21 Ajit Herbert MD [address] [place] [address] Urology 03/10/23 [facility] [address] [place], [place] [address] 03/10/23 Jadon Styles DO [address] [place] [address] Hematology/Oncology 06/21/24 Tiera Miles [facility] [place] [address] [place] [address] Family Medicine 06/21/24 Glue Drier Operator Relationship Specialty Start Date End Date Ysabel Esteban, DEVELOPMENT COACH [address] [place] [address] PCP - General Family Medicine 05/30/23 Zakiya Han, STACI [address] [place] [address] Specialty Tombstone Erector Hematology/Oncology 12/23/21 Ajit Herbert MD [address] [place] [address] Urology 03/10/23 [facility] [address] [place], [place] [address] 03/10/23 Jadon Styles DO [address] [place] [address] Hematology/Oncology 06/21/24 Tiera Miles [facility] [address] [place] [address] Family Medicine 06/21/24 Glue Drier Operator Relationship Specialty Start Date End Date Ysabel Esteban, DEVELOPMENT COACH [address] [place] [address] PCP - General Family Medicine 05/30/23 Zakiya Han, RN [address] [place] [address] Specialty Tombstone Erector Hematology/Oncology 12/23/21 Ajit Herbert MD [address] [place] [address] Urology 03/10/23 [facility] [address] [place] [address] 03/10/23 Jadon Styles DO [address] [place] [address] Hematology/Oncology 06/21/24 Tiera Miles [facility] [address] [place] [address] Family Medicine 06/21/24 Glue Drier Operator Relationship Specialty Start Date End Date Ysabel Esteban, DEVELOPMENT COACH [address] [place] [address] PCP - General Family Medicine 05/30/23 Zakiya Han, RN [address] [place] [address] Specialty Tombstone Erector Hematology/Oncology 12/23/21 Ajit Herbert MD [address] [place] [address] Urology 03/10/23 [facility] [address] [place] [address] 03/10/23 Jadon Styles DO [address] [place] [address] Hematology/Oncology 06/21/24 Tiera Miles [facility] [place] [address] [place] [address] Family Medicine 06/21/24 Glue Drier Operator Relationship Specialty Start Date End Date Ysabel Esteban, DEVELOPMENT COACH [address] [place] [address] PCP - General Family Medicine 05/30/23 Zakiya Han RN [address] [place] [address] Specialty Tombstone Erector Hematology/Oncology 12/23/21 Ajit Herbert MD [address] [place] [address] Urology 03/10/23 [facility] [address] [place] [place] [address] 03/10/23 Jadon Styles DO [address] [place] [address] Hematology/Oncology 06/21/24 Tiera Miles [facility] [address] [place], [place] [address] Family Medicine 06/21/24 Glue Drier Operator Relationship Specialty Start Date End Date Ysabel Esteban, DEVELOPMENT COACH [address] [place] [address] PCP - General Family Medicine 05/30/23 Zakiya Han, RN [address] [place] [address] Specialty Tombstone Erector Hematology/Oncology 12/23/21 Ajit Herbert MD [address] [place] [address] Urology 03/10/23 [facility] [address] [place] [address] 03/10/23 Jadon Styles DO [address] [place] [address] Hematology/Oncology 06/21/24 Tiera Miles [facility] [address] [place] [address] Family Medicine 06/21/24 Glue Drier Operator Relationship Specialty Start Date End Date Ysabel Esteban, DEVELOPMENT COACH [address] [place] [address] PCP - General Family Medicine 05/30/23 Zakiya Han, RN [address] [place] [address] Specialty Tombstone Erector Hematology/Oncology 12/23/21 Ajit Herbert MD [address] [address] [place] [address] Urology 03/10/23 [facility] [address] [place] [address] 03/10/23 Jadon Styles DO [address] [place] [address] Hematology/Oncology 06/21/24 Tiera Miles [facility] [place] [address] [place] [address] Family Medicine 06/21/24 Glue Drier Operator Relationship Specialty Start Date End Date Ysabel Esteban, DEVELOPMENT COACH [address] [place] [address] PCP - General Family Medicine 05/30/23 Zakiya Han, RN [address] [place] [address] Specialty Tombstone Erector Hematology/Oncology 12/23/21 Ajit Herbert MD [address] [place] [address] Urology 03/10/23 [facility] [address] [place] [address] 03/10/23 Jadon Styles DO [address] [place] [address] Hematology/Oncology 06/21/24 Tiera Miles [facility] [place] [address] [place] [address] Family Medicine 06/21/24 Glue Drier Operator Relationship Specialty Start Date End Date Ysabel Esteban, GALINA [address] [place] [address] PCP - General Family Medicine 05/30/23 Zakiya Han, STACI [address] [place] [address] Specialty Tombstone Erector Hematology/Oncology 12/23/21 Ajit Herbert MD [address] [place] [address] Urology 03/10/23 [facility] [address] [place] [address] 03/10/23 Jadon Styles DO [address] [place] [address] Hematology/Oncology 06/21/24 Tiera Miles MD [facility] [address] [place] [address] Family Medicine 06/21/24 Glue Drier Operator Relationship Specialty Start Date End Date Ysabel Esteban, DEVELOPMENT COACH [address] [place] [address] PCP - General Family Medicine 05/30/23 Zakiya Han, STACI [address] [place] [address] Specialty Tombstone Erector Hematology/Oncology 12/23/21 Ajit Herbert MD [address] [place] [address], [place] [address] Urology 03/10/23 [facility] [address] [place] [address] 03/10/23 Jadon Styles DO [address] [place] [address] Hematology/Oncology 06/21/24 Tiera Miles MD [facility] [place] [address] [place] [address] Family Medicine 06/21/24 Glue Drier Operator Relationship Specialty Start Date End Date Ysabel Esteban DEVELOPMENT COACH [address] [place] [address] PCP - General Family Medicine 05/30/23 Zakiya Han, STACI [address] [place] [address] Specialty Tombstone Erector Hematology/Oncology 12/23/21 Ajit Herbert MD [address] [place] [address] Urology 03/10/23 [facility] [address] [place] [address] 03/10/23 Jadon Styles DO [address] [place] [address] Hematology/Oncology 06/21/24 Tiera Miles MD [facility] [place] [address] [place] [address] Family Medicine 06/21/24 Glue Drier Operator Relationship Specialty Start Date End Date Ysabel Esteban, DEVELOPMENT COACH [address] [place] [address] PCP - General Family Medicine 05/30/23 Zakiya Han, RN [address] [place] [address] Specialty Tombstone Erector Hematology/Oncology 12/23/21 Ajit Herbert MD [address] [place] [address], [place] [address] Urology 03/10/23 [facility] [address] [place], [place] [address] 03/10/23 Jadon Styles DO [address] [place] [address] Hematology/Oncology 06/21/24 Tiera Miles MD [facility] [place] [address] [place] [address] Family Medicine 06/21/24 Glue Drier Operator Relationship Specialty Start Date End Date Ysabel Esteban, DEVELOPMENT COACH [address] [place] [address] PCP - General Family Medicine 05/30/23 Zakiya Han, RN [address] [place] [address] Specialty Tombstone Erector Hematology/Oncology 12/23/21 Ajit Herbert MD [address] [place] [address], [place] [address] Urology 03/10/23 [facility] [address] [place] [address] 03/10/23 Jadon Styles DO [address] [place] [address] Hematology/Oncology 06/21/24 Tiera Miles MD [facility] [address] [place] [address] Family Medicine 06/21/24 Glue Drier Operator Relationship Specialty Start Date End Date Ysabel Esteban, DEVELOPMENT COACH [address] [place] [address] PCP - General Family Medicine 05/30/23 Zakiya Han, STACI [address] [place] [address] Specialty Tombstone Erector Hematology/Oncology 12/23/21 Ajit Herbert MD [address] [place] [address] Urology 03/10/23 [facility] [address] [place] [address] 03/10/23 Jadon Styles DO [address] [place] [address] Hematology/Oncology 06/21/24 Tiera Miles MD [facility] [address] [place] [address] Family Medicine 06/21/24 Glue Drier Operator Relationship Specialty Start Date End Date Ysabel Esteban, DEVELOPMENT COACH [address] [place] [address] PCP - General Family Medicine 05/30/23 Zakiya Han, STACI [address] [place] [address] Specialty Tombstone Erector Hematology/Oncology 12/23/21 Ajit Herbert MD [address] [place] [address] Urology 03/10/23 [facility] [address] [place] [address] 03/10/23 Jadon Styles DO [address] [place] [place] [address] Hematology/Oncology 06/21/24 Tiera Miles MD [facility] [place] [address] [place] [address] Family Medicine 06/21/24 Glue Drier Operator Relationship Specialty Start Date End Date Ysabel Esteban, DEVELOPMENT COACH [address] [place] [address] PCP - General Family Medicine 05/30/23 Ajit Herbert MD [address] [place] [address] Urology 03/10/23 [facility] [address] [place] [address] 03/10/23 Jadon Styles DO [address] [place] [address] Hematology/Oncology 06/21/24 Tiera Miles MD [facility] [address] [place] [address] Family Medicine 06/21/24 Heather Cuevas, RN Specialty Tombstone Erector Oncology 12/18/24 Glue Drier Operator Relationship Specialty Start Date End Date Ysabel Esteban, DEVELOPMENT COACH [address] [place] [address] PCP - General Family Medicine 05/30/23 Ajit Herbert MD [address], [place] [address] Urology 03/10/23 [facility] [address] [place] [address] 03/10/23 Jadon Styles DO [address] [place] [place] [address] Hematology/Oncology 06/21/24 Tiera Miles MD [facility] [address] [place] [address] Family Medicine 06/21/24 Heather Cuevas, STACI Specialty Tombstone Erector Oncology 12/18/24 Glue Drier Operator Relationship Specialty Start Date End Date Ysabel Esteban, DEVELOPMENT COACH [address] [place] [address] PCP - General Family Medicine 05/30/23 Ajit Herbert MD [address] [place] [address] Urology 03/10/23 [facility] [address] [place] [address] 03/10/23 Jadon Styles DO [address] [facility] [place] [address] Hematology/Oncology 06/21/24 Tiera Miles MD [facility] [address] [place] [address] Family Medicine 06/21/24 Heather Cuevas, RN Specialty Tombstone Erector Oncology 12/18/24 Glue Drier Operator Relationship Specialty Start Date End Date Ysabel Esteban, DEVELOPMENT COACH [address] [place] [address] PCP - General Family Medicine 05/30/23 Ajit Herbert MD [address] [place] [address] Urology 03/10/23 [facility] [address] [place] [address] 03/10/23 Jadon Styles DO [address] [facility] [place] [address] Hematology/Oncology 06/21/24 Tiera Miles MD [facility] [address] [place] [address] Family Medicine 06/21/24 Heather Cuevas, RN Specialty Tombstone Erector Oncology 12/18/24 lSim Valadez, HUMANITIES DEPARTMENT CHAIR.DEVELOPMENT COACH [address] [place] [phone] Referring Internal Medicine 12/26/24 Glue Drier Operator Relationship Specialty Start Date End Date Ysabel Esteban, DEVELOPMENT COACH [address] [place] [address] PCP - General Family Medicine 05/30/23 Ajit Herbert MD [address] [address] Urology 03/10/23 [facility] [address] [place], [place] [address]341 03/10/23 Jadon Styles DO [address] [place], [place] 502281 Hematology/Oncology 06/21/24 Tiera Miles MD [facility] [address] [place], [place] [address]99[address] Family Medicine 06/21/24 Heather Cuevas, RN Specialty Tombstone Erector Oncology 12/18/24 Slim Valadez, HUMANITIES DEPARTMENT CHAIR.DEVELOPMENT COACH [address] [place] [phone] Referring Internal Medicine 12/26/24 Team Status: Active Member Role Status Dates No Primary Care Physician Primary Care Provider Active Team Status: Active Member Role Status Dates NP. Ysabel Esteban NP-C Primary Care Provider Activ e Start: October 15, 2024 Dr. Tiera Miles MD Attending Provider Active S tart: October 15, 2024 Dr. Tiera Miles MD Referring Provider Active S tart: October 15, 2024 Team Status: Active Member Role Status Dates Dr. Surjit Santizo MD Emergency Provider Active S tart: December 18, 2024 No Primary Care Physician Primary Care Provider Active Start: December 18, 2024 Dr. Gurmeet Watkins DO Admit Provider Active Start: December 18, 2024 Dr. Gurmeet Watkins DO Attending Provider Active Start: December 18, 2024 Team Status: Active Member Role Status Dates Dr. Surjit Santizo MD Emergency Provider Active S tart: December 18, 2024 No Primary Care Physician Primary Care Provider Active Start: December 18, 2024 Dr. Gurmeet Watkins DO Admit Provider Active Start: December 18, 2024 Dr. Gurmeet Watkins DO Other Provider Active Start: December 18, 2024 Irineo SCHULTZ PA Attending Provider Active Sta rt: December 18, 2024 Team Status: Active Member Role Status Dates No Primary Care Physician Primary Care Provider Active Start: December 28, 2024 MARION Tran Attending Provider Active Start: December 28, 2024 MARION Tran Referring Provider Active Start: December 28, 2024 Team Status: Active Member Role Status Dates No Primary Care Physician Primary Care Provider Active Start: December 28, 2024 Dr. Tiera Miles MD Attending Provider Active S tart: December 28, 2024 Dr. Tiera Miles MD Referring Provider Active S tart: December 28, 2024 Glue Drier Operator Relationship Specialty Start Date End Date Ysabel Esteban DEVELOPMENT COACH [address] [place] [address] PCP - General Family Medicine 05/30/23 Ajit Herbert MD [address] [place] [address] Urology 03/10/23 [facility] [address] [place], [place] [address] 03/10/23 Jadon Styles DO [address] [place], [place] [id number] Hematology/Oncology 06/21/24 Tiera Miles MD [facility] [address] [place], [place] [address] Family Medicine 06/21/24 Heather Cuevas RN Specialty Tombstone Erector Oncology 12/18/24 Slim Valadez, HUMANITIES DEPARTMENT CHAIR.DEVELOPMENT COACH [address] [place] [phone] Referring Internal Medicine 12/26/24 Glue Drier Operator Relationship Specialty Start Date End Date Ysabel Esteban, DEVELOPMENT COACH [address] [place] [address] PCP - General Family Medicine 05/30/23 Ajit Herbert MD [address] [address] Urology 03/10/23 [facility] [address] [place] [address] 03/10/23 Jadon Styles DO [address] [facility] [place] [address] Hematology/Oncology 06/21/24 Tiera Miles MD [facility] [address] [place] [address] Family Medicine 06/21/24 Heather Cuevas, STACI Specialty Tombstone Erector Oncology 12/18/24 Slim Valadez, HUMANITIES DEPARTMENT CHAIR.DEVELOPMENT COACH [address] [place] [phone] Referring Internal Medicine 12/26/24 Glue Drier Operator Relationship Specialty Start Date End Date Ysabel Esteban, DEVELOPMENT COACH [address] [place] [address] PCP - General Family Medicine 05/30/23 Ajit Herbert MD [address] [address] Urology 03/10/23 [facility] [address] [place] [place] [address] 03/10/23 Jadon Styles DO [address] [place] [address] Hematology/Oncology 06/21/24 Tiera Miles MD [facility] [address] [place] [address] Family Medicine 06/21/24 Heather Cuevas RN Specialty Tombstone Erector Oncology 12/18/24 Slim Valadez, HUMANITIES DEPARTMENT CHAIR.DEVELOPMENT COACH [address] [place] [phone] Referring Internal Medicine 12/26/24 Glue Drier Operator Relationship Specialty Start Date End Date Ysabel Esteban, DEVELOPMENT COACH [address] [place] [address] PCP - General Family Medicine 05/30/23 Ajit Herbert MD [address] [address] Urology 03/10/23 [facility] [address] [place] [address] 03/10/23 Jadon Styles DO [address] [place] [address] Hematology/Oncology 06/21/24 Tiera Miles MD [facility] [address] [place] [address] Family Medicine 06/21/24 Heather Cuevas, STACI Specialty Tombstone Erector Oncology 12/18/24 Slim Valadez, HUMANITIES DEPARTMENT CHAIR.DEVELOPMENT COACH [address] [place] [phone] Referring Internal Medicine 12/26/24 Glue Drier Operator Relationship Specialty Start Date End Date Ysabel Esteban, DEVELOPMENT COACH [address] [place] [address] PCP - General Family Medicine 05/30/23 Ajit Herbert MD [address] [address] Urology 03/10/23 [facility] [address] [place] [address] 03/10/23 Jadon Styles DO [address] [place] [address] Hematology/Oncology 06/21/24 Tiera Miles MD [facility] [address] [place] [address] Family Medicine 06/21/24 Heather Ceuvas, STACI Specialty Tombstone Erector Oncology 12/18/24 Slim Valadez, HUMANITIES DEPARTMENT CHAIR.DEVELOPMENT COACH [address] [place] [phone] Referring Internal Medicine 12/26/24 Team Status: Active Member Role Status Dates Dr. Tiera Miles MD Attending Provider Active S tart: January 18, 2025 Dr. Tiera Miles MD Referring Provider Active S tart: January 18, 2025 Elvi SCHULTZ PA-C Primary Care Provider Active Start: January 18, 2025 Glue Drier Operator Relationship Specialty Start Date End Date Elvi Llanes PA-C [address] [place] [address] [address] [place] [address] PCP - General Family Medicine 01/18/25 Ajit Herbert MD [address] [address] Urology 03/10/23 [facility] [address] [place] [address] 03/10/23 Jadon Styles DO [address] [place] [address] Hematology/Oncology 06/21/24 Tiera Miles MD [facility] [address] [place], [place] [address] Family Medicine 06/21/24 Heather Cuevas RN Specialty Tombstone Erector Oncology 12/18/24 Slim Valadez, HUMANITIES DEPARTMENT CHAIR.[facility] [address] [place] [phone] Referring Internal Medicine 12/26/24 Glue Drier Operator Relationship Specialty Start Date End Date Elvi Llanes PA-C [address] [place] [address] [address] [place] [address] PCP - General Family Medicine 01/18/25 Ajit Herbert MD [address] [place] [address] Urology 03/10/23 [facility] [address] [place], [place] [id number] 03/10/23 Jadon Styles DO [address] [place] [address] Hematology/Oncology 06/21/24 Tiera Miles MD [facility] [place] [address] [place], [place] 316811 Family Medicine 06/21/24 Heather Cuevas RN Specialty Tombstone Erector Oncology 12/18/24 Slim Valadez, HUMANITIES DEPARTMENT CHAIR.[facility] [address] [place] [address] [phone] Referring Internal Medicine 12/26/24 Glue Drier Operator Relationship Specialty Start Date End Date Elvi Llanes, PA-C [address] [place] [address] 28411 PCP - General Family Medicine 01/18/25 Ajit Herbert MD [address] [place] [address] 210 [place] [address] Urology 03/10/23 [facility] [address] [place] [address] 03/10/23 Jadon Styles DO [address] [place] [place] [address] Hematology/Oncology 06/21/24 Tiera Miles MD [facility] [address] [place] [address] Family Medicine 06/21/24 Heather Cuevas, STACI Specialty Tombstone Erector Oncology 12/18/24 Slim Valadez, HUMANITIES DEPARTMENT CHAIR.DEVELOPMENT COACH [address] [place] [address] [phone] Referring Internal Medicine 12/26/24 Team Status: Inactive Member Role Status Dates Elvi SCHULTZ PA-C Primary Care Provider Active Start: January 25, 2025 End: January 25, 2025 Dr. Melissa Silvestre DO Emergency Provider Active Start: January 25, 2025 End: January 25, 2025 Glue Drier Operator Relationship Specialty Start Date End Date Elvi Llanes PA-Rc [address] [place] [address] 58245 PCP - General Family Medicine 01/18/25 Ajit Herbert MD [address] 112601 Urology 03/10/23 [facility] [address] [place] [address] 03/10/23 Jadon Styles DO [address] [place] [address] Hematology/Oncology 06/21/24 Tiera Miles MD [facility] [address] [place] [address] Family Medicine 06/21/24 Heather Cuevas, STACI Specialty Tombstone Erector Oncology 12/18/24 Slim Valadez, HUMANITIES DEPARTMENT CHAIR.DEVELOPMENT COACH [address] [place] [phone] Referring Internal Medicine 12/26/24 Glue Drier Operator Relationship Specialty Start Date End Date Elvi Llanes PA-C [address] [place] [address] 61003 PCP - General Family Medicine 01/18/25 Ajit Herbert MD 546 [facility] 210 [place] [address] Urology 03/10/23 [facility] [address] [place] [address] 03/10/23 Jadon Styles DO [address] [place] [address] Hematology/Oncology 06/21/24 Tiera Miles MD [facility] [address] [place] [address] Family Medicine 06/21/24 Heather Cuevas RN Specialty Tombstone Erector Oncology 12/18/24 Slim Valadez, HUMANITIES DEPARTMENT CHAIR.DEVELOPMENT COACH [address] [place] [address] [phone] Referring Internal Medicine 12/26/24 Glue Drier Operator Relationship Specialty Start Date End Date Elvi Llanes PA-C [address] [place] [address] 31561 PCP - General Family Medicine 01/18/25 Ajit Herbert MD [address] [address] Urology 03/10/23 [facility] [address] [place] [address] 03/10/23 Jadon Styles DO [address] [place] [address] Hematology/Oncology 06/21/24 Tiera Miles MD [facility] [address] [place], [place] [id number] Family Medicine 06/21/24 Heather Cuevas RN Specialty Tombstone Erector Oncology 12/18/24 Slim Valadez, HUMANITIES DEPARTMENT CHAIR.[facility] [address] [place] [address] [phone] Referring Internal Medicine 12/26/24 Glue Drier Operator Relationship Specialty Start Date End Date Elvi Llanes PA-C [address] [place] [address] 33031 PCP - General Family Medicine 01/18/25 Ajit Herbert MD [address] [place] [address] 42087 Urology 03/10/23 [facility] [address] [place] MD 730981 03/10/23 Jadon Styles DO [address] [place] [address] Hematology/Oncology 06/21/24 Tiera Miles MD [facility] [address] [place], [place] 722681 Family Medicine 06/21/24 Heather Cuevas RN Specialty Tombstone Erector Oncology 12/18/24 Slim Valadez, HUMANITIES DEPARTMENT CHAIR.DEVELOPMENT COACH [address] [place] [address] [phone] Referring Internal Medicine 12/26/24 Glue Drier Operator Relationship Specialty Start Date End Date Elvi Llanes PA-C [address] [place] [address] 71869 PCP - General Family Medicine 01/18/25 Ajit Herbert MD [address] [place] [address] 40728 Urology 03/10/23 [facility] [address] [place] [address] 03/10/23 Jadon Styles DO [address] [place] [address] Hematology/Oncology 06/21/24 Tiera Miles MD [facility] [address] [place] [address] Family Medicine 06/21/24 Heather Cuevas, RN Specialty Tombstone Erector Oncology 12/18/24 Slim Valadez, HUMANITIES DEPARTMENT CHAIR.DEVELOPMENT COACH [address] [place] [phone] Referring Internal Medicine 12/26/24 Glue Drier Operator Relationship Specialty Start Date End Date Elvi Llanes PA-C 1261 [facility] 200 [place] [address] PCP - General Family Medicine 01/18/25 Ajit Herbert MD 546 [facility] [address] [place] [address] Urology 03/10/23 [facility] [address] [place] [address] 03/10/23 Jadon Styles DO [address] [place] [address] Hematology/Oncology 06/21/24 Tiera Miles MD [facility] [place] 1740 [place] [address] Family Medicine 06/21/24 Heather Cuevas, STACI Specialty Tombstone Erector Oncology 12/18/24 Slim Valadez, HUMANITIES DEPARTMENT CHAIR.[facility] [address] [place] [phone] Referring Internal Medicine 12/26/24 Glue Drier Operator Relationship Specialty Start Date End Date Elvi Llanes PA-C 1261 [facility] 200 [place] [address] PCP - General Family Medicine 01/18/25 Ajit Herbert MD [address] [place] [address] Urology 03/10/23 [facility] [address] [place] [address] 03/10/23 Jadon Styles DO [address] [place] [address] Hematology/Oncology 06/21/24 Tiera Miles MD [facility] [address] [place], [place] 115021 Family Medicine 06/21/24 Heather Cuevas, RN Specialty Tombstone Erector Oncology 12/18/24 Slim Valadez, HUMANITIES DEPARTMENT CHAIR.[facility] [address] [place] [address] Referring Internal Medicine 12/26/24 Glue Drier Operator Relationship Specialty Start Date End Date Elvi Llanes, PA-C [address] [place] [address] 200 [place] [address] PCP - General Family Medicine 01/18/25 Ajit Herbert MD [address] [place] [address] 210 [place] [address] Urology 03/10/23 [facility] [address] [place] [address] 03/10/23 Jadon Styles DO [address] [place] [address] Hematology/Oncology 06/21/24 Tiera Miles MD [facility] [address] [place], [place] [id number] Family Medicine 06/21/24 Heather Cuevas, STACI Specialty Tombstone Erector Oncology 12/18/24 Slim Valadez, HUMANITIES DEPARTMENT CHAIR.DEVELOPMENT COACH [address] [place] [address] [phone] Referring Internal Medicine 12/26/24 Glue Drier Operator Relationship Specialty Start Date End Date Elvi Llanes PA-C [address] [place] [address] 200 [place] [address] PCP - General Family Medicine 01/18/25 Ajit Herbert MD [address] [place] [address] 210 [place], [place] [id number] Urology 03/10/23 [facility] [address] [place], [place] 086571 03/10/23 Jadon Styles DO [address] [place] [address] Hematology/Oncology 06/21/24 Tiera Miles MD [facility] [address] [place], [place] [id number] Family Medicine 06/21/24 Heather Cuevas, RN Specialty Tombstone Erector Oncology 12/18/24 Slim Valadez, HUMANITIES DEPARTMENT CHAIR.DEVELOPMENT COACH [address] [place] [address] [phone] Referring Internal Medicine 12/26/24 Team Status: Inactive Member Role Status Dates Elvi SCHULTZ PA-C Primary Care Provider Active Start: February 20, 2025 End: February 20, 2025 Elvi SCHULTZ PA-C Referring Provider Active Start: February 20, 2025 End: February 20, 2025 Shade SCHULTZ PA Attending Provider Active Start: February 20, 2025 End: February 20, 2025 Glue Drier Operator Relationship Specialty Start Date End Date Elvi Llanes PA-C [address] [place] [address] 200 [place] [address] PCP - General Family Medicine 01/18/25 Ajit Herbert MD [address] [address] Urology 03/10/23 [facility] [address] [place], [place] 400601 03/10/23 Jadon Styles DO [address] [place] [address] Hematology/Oncology 06/21/24 Tiera Miles MD [facility] [address] [place], [place] [id number] Family Medicine 06/21/24 Heather Cuevas RN Specialty Tombstone Erector Oncology 12/18/24 Slim Valadez, HUMANITIES DEPARTMENT CHAIR.[facility] [address] [place] [address] [phone] Referring Internal Medicine 12/26/24 Glue Drier Operator Relationship Specialty Start Date End Date Elvi Llanes PA-C [address] [place] [address] 77948 PCP - General Family Medicine 01/18/25 Ajit Herbert MD [address] [place] [address] 24275 Urology 03/10/23 [facility] [address] [place], [place] 3456[address] 03/10/23 Jadon Styles DO [address] [place] MD 923841 Hematology/Oncology 06/21/24 Tiera Miles MD [facility] [place] [address] [place], [place] [phone] Family Medicine 06/21/24 Heather Cuevas RN Specialty Tombstone Erector Oncology 12/18/24 Slim Valadez, HUMANITIES DEPARTMENT CHAIR.[facility] [address] [place] [address] [phone] Referring Internal Medicine 12/26/24 Glue Drier Operator Relationship Specialty Start Date End Date Elvi Llanes, PA-C [address] [place] [address] 79289 PCP - General Family Medicine 01/18/25 Ajit Herbert MD [address] [place] [address] 210 [place] [address] Urology 03/10/23 [facility] [address] [place] [address]101 03/10/23 Jadon Styles DO [address] [place] [place] [address] Hematology/Oncology 06/21/24 Tiera Miles MD [facility] [address] [place] [address] Family Medicine 06/21/24 Heather Cuevas RN Specialty Tombstone Erector Oncology 12/18/24 Slim Valadez, HUMANITIES DEPARTMENT CHAIR.DEVELOPMENT COACH [address] [place] [address] [phone] Referring Internal Medicine 12/26/24 Glue Drier Operator Relationship Specialty Start Date End Date Elvi Llanes PAMeriC [address] [place] [address] [phone] PCP - General Family Medicine 01/18/25 Ajit Herbert MD [address] [place] [address] 22016 Urology 03/10/23 [facility] [address] [place] [address] 03/10/23 Jadon Styles DO [address] [place] [address] Hematology/Oncology 06/21/24 Tiera Miles MD [facility] [address] [place] [address] Family Medicine 06/21/24 Heather Cuevas, STACI Specialty Tombstone Erector Oncology 12/18/24 Slim Valadez, HUMANITIES DEPARTMENT CHAIR.DEVELOPMENT COACH [address] [place] [phone] Referring Internal Medicine 12/26/24 Glue Drier Operator Relationship Specialty Start Date End Date Elvi Llanes PAMeriC [address] [place] [address] 200 [place] [address] PCP - General Family Medicine 01/18/25 Ajit Herbert MD [address] [address] Urology 03/10/23 [facility] [address] [place] [address] 03/10/23 Jadon Styles DO [address] [place] [address] Hematology/Oncology 06/21/24 Tiera Miles MD [facility] [address] [place] [address] Family Medicine 06/21/24 Heather Cuevas, RN Specialty Tombstone Erector Oncology 12/18/24 Slim Valadez, HUMANITIES DEPARTMENT CHAIR.DEVELOPMENT COACH [address] [place] [phone] Referring Internal Medicine 12/26/24 Glue Drier Operator Relationship Specialty Start Date End Elvi Lake PA-C [address] [place] [address] 16290 PCP - General Family Medicine 01/18/25 Ajit Herbert MD [address] 8[address] Urology 03/10/23 [facility] [address] [place], [place] 575001 03/10/23 Jadon Styles DO [address] [place], [place] 389141 Hematology/Oncology 06/21/24 Tiera Miles MD [facility] [address] [place], [place] 800761 Family Medicine 06/21/24 Heather Cuevas RN Specialty Tombstone Erector Oncology 12/18/24 Slim Valadez, HUMANITIES DEPARTMENT CHAIR.[facility] [address] [place] [address] [phone] Referring Internal Medicine 12/26/24 Glue Drier Operator Relationship Specialty Start Date End Date Elvi Llanes PAMeriC [address] [place] [address] 66042 PCP - General Family Medicine 01/18/25 Ajit Herbert MD [address] [place] [address] 210 [place] [address] Urology 03/10/23 [facility] [address] [place] [address] 03/10/23 Jadon Styles DO [address] [place] [address] Hematology/Oncology 06/21/24 Tiera Miles MD [facility] [address] [place] [address] Family Medicine 06/21/24 Heather Cuevas RN Specialty Tombstone Erector Oncology 12/18/24 Slim Valadez, HUMANITIES DEPARTMENT CHAIR.DEVELOPMENT COACH [address] [place] [address] [phone] Referring Internal Medicine 12/26/24 Glue Drier Operator Relationship Specialty Start Date End Date Elvi Llanes PA-C [address] [place] [address] 200 [place], [place] [phone] PCP - General Family Medicine 01/18/25 Ajit Herbert MD [address] [place] [address] 210 [place], [place] [id number] Urology 03/10/23 [facility] [address] [place], [place] 819791 03/10/23 Jadon Styles DO [address] [place] [address] Hematology/Oncology 06/21/24 Tiera Miles MD [facility] [address] [place], [place] [id number] Family Medicine 06/21/24 Heather Cuevas RN Specialty Tombstone Erector Oncology 12/18/24 Slim Valadez, HUMANITIES DEPARTMENT CHAIR.DEVELOPMENT COACH [address] [place] [phone] Referring Internal Medicine 12/26/24 Glue Drier Operator Relationship Specialty Start Date End Date Elvi Llanes PA-C [address] [place] [address] 200 [place], [place] [id number] PCP - General Family Medicine 01/18/25 Ajit Herbert MD 546 [facility] 210 [place] [address] Urology 03/10/23 [facility] [address] [place] [place] [address] 03/10/23 Jadon Styles DO [address] [place] [place] [address] Hematology/Oncology 06/21/24 Tiera Miles MD [facility] [place] 1740 [place] [address] Family Medicine 06/21/24 Heather Cuevas RN Specialty Tombstone Erector Oncology 12/18/24 Slim Valadez, HUMANITIES DEPARTMENT CHAIR.DEVELOPMENT COACH [address] [place] [phone] Referring Internal Medicine 12/26/24 Glue Drier Operator Relationship Specialty Start Date End Date Elvi Llanes PA-C [address] [address] PCP - General Family Medicine 01/18/25 Ajit Herbert MD [address] [place] [address] Urology 03/10/23 [facility] [address] [place] [place] [address] 03/10/23 Jadon Styles DO [address] [place] [address] Hematology/Oncology 06/21/24 Tiera Miles MD [facility] [address] [place], [place] 046801 Family Medicine 06/21/24 Heather Cuevas, RN Specialty Tombstone Erector Oncology 12/18/24 Slim Valadez, HUMANITIES DEPARTMENT CHAIR.DEVELOPMENT COACH [address] [place] [address] [phone] Referring Internal Medicine 12/26/24 Glue Drier Operator Relationship Specialty Start Date End Date [place] Harbor[place]-C [address] [place] [address]244 PCP - General Family Medicine 01/18/25 Ajit Herbert MD [address] [place] [address] 51093 Urology 03/10/23 [facility] [address] [place] [address] 03/10/23 Jadon Styles DO [address] [place] [address] Hematology/Oncology 06/21/24 Tiera Miles MD [facility] [address] [place] [address] Family Medicine 06/21/24 Heather Cuevas, RN Specialty Tombstone Erector Oncology 12/18/24 Slim Valadez, HUMANITIES DEPARTMENT CHAIR.DEVELOPMENT COACH [address] [place] [address] [phone] Referring Internal Medicine 12/26/24 Glue Drier Operator Relationship Specialty Start Date End Date Elvi Llanes PA-C [address] [place] [address] 200 [place] [address] PCP - General Family Medicine 01/18/25 Ajit Herbert MD [address] 663181 Urology 03/10/23 [facility] [address] [place], [place] 39061691 03/10/23 Jadon Styles DO [address] [place] [address] Hematology/Oncology 06/21/24 Tiera Miles MD [facility] [place] [address] [place], [place] [id number] Family Medicine 06/21/24 Heather Cuevas RN Specialty Tombstone Erector Oncology 12/18/24 Slim Valadez, HUMANITIES DEPARTMENT CHAIR.[facility] [address] [place] [address] [phone] Referring Internal Medicine 12/26/24 Glue Drier Operator Relationship Specialty Start Date End Date Elvi Llanes PA-C [address] [place] [address] 636564 PCP - General Family Medicine 01/18/25 Ajit Herbert MD [address] [address] Urology 03/10/23 [facility] [address] [place], [place] [address]991 03/10/23 Jadon Styles DO [address] [place] [address] Hematology/Oncology 06/21/24 Tiera Miles MD [facility] [address]40 [place] [address] Family Medicine 06/21/24 Heather Cuevas, STACI Specialty Tombstone Erector Oncology 12/18/24 Slim Valadez, HUMANITIES DEPARTMENT CHAIR.[facility] [address] [place] [phone] Referring Internal Medicine 12/26/24 Glue Drier Operator Relationship Specialty Start Date End Date Elvi Llanes PAMeriC [address] [place] [address] 200 [place] [address] PCP - General Family Medicine 01/18/25 Ajit Herbert MD [address] [place] [address] 210 [place] [address] Urology 03/10/23 [facility] [address] [place] [address] 03/10/23 Jadon Styles DO [address] [place] [address] Hematology/Oncology 06/21/24 Tiera Miles MD [facility] [address]40 [place] [address] Family Medicine 06/21/24 Heather Cuevas, STACI Specialty Tombstone Erector Oncology 12/18/24 Slim Valadez, HUMANITIES DEPARTMENT CHAIR.DEVELOPMENT COACH [address] [place] [address] [place] [phone] Referring Internal Medicine 12/26/24 Glue Drier Operator Relationship Specialty Start Date End Date Elvi Llanes PA-C [address] [place] [address] 200 [place] [address] PCP - General Family Medicine 01/18/25 Ajit Herbert MD [address] [place] [address] 210 [place] [address] Urology 03/10/23 [facility] [address] [place] [address] 03/10/23 Jadon Styles DO [address] [place] [address] Hematology/Oncology 06/21/24 Tiera Miles MD [facility] [address] [place] [address] Family Medicine 06/21/24 Heather Cuevas, STACI Specialty Tombstone Erector Oncology 12/18/24 Slim Valadez, HUMANITIES DEPARTMENT CHAIR.DEVELOPMENT COACH [address] [place], [place] [address]edith [place] [phone] Referring Internal Medicine 12/26/24 Glue Drier Operator Relationship Specialty Start Date End Date Elvi Llanes PA-C [address] [address] PCP - General Family Medicine 01/18/25 Ajit Herbert MD [address] [address] Urology 03/10/23 [facility] [address] [place], [place] 957331 03/10/23 Jadon Styles DO [address] [place] [address] Hematology/Oncology 06/21/24 Tiera Miles MD [facility] [address] [place], [place] [phone] Family Medicine 06/21/24 Heather Cuevas, RN Specialty Tombstone Erector Oncology 12/18/24 Slim Valadez, HUMANITIES DEPARTMENT CHAIR.DEVELOPMENT COACH [address] [place] [phone] Referring Internal Medicine 12/26/24 Glue Drier Operator Relationship Specialty Start Date End Date Elvi Llanes, PA-C [address] [place] [address] 8[address]14 PCP - General Family Medicine 01/18/25 Ajit Herbert MD [address] [place] [address] 722411 Urology 03/10/23 [facility] [address] [place], [place] 678571 03/10/23 Jadon Styles DO [address] [place] [address] Hematology/Oncology 06/21/24 Tiera Miles MD [facility] [address] [place], [place] 721411 Family Medicine 06/21/24 Heather Cuevas RN Specialty Tombstone Erector Oncology 12/18/24 Slim Valadez, HUMANITIES DEPARTMENT CHAIR.DEVELOPMENT COACH [address] [place] [address] [phone] Referring Internal Medicine 12/26/24 Glue Drier Operator Relationship Specialty Start Date End Date Elvi Llanes PA-C [address] [place] [address]72 PCP - General Family Medicine 01/18/25 Ajit Herbert MD [address] [place] [address] 379131 Urology 03/10/23 [facility] [address] [place] [address] 03/10/23 Jadon Styles DO [address] [place] [address] Hematology/Oncology 06/21/24 Tiera Miles MD [facility] [address] [place] [address] Family Medicine 06/21/24 Heather Cuevas, RN Specialty Tombstone Erector Oncology 12/18/24 Slim Valadez, HUMANITIES DEPARTMENT CHAIR.DEVELOPMENT COACH [address] [place] [phone] Referring Internal Medicine 12/26/24 Glue Drier Operator Relationship Specialty Start Date End Date Elvi Llanes PA-C [address] [place] [address] 200 [place], [place] 182434 PCP - General Family Medicine 01/18/25 Ajit Herbert MD [address] [place] [address] 210 [place], [place] 458291 Urology 03/10/23 [facility] [address] [place] [address] 03/10/23 Jadon Styles DO [address] [place] [address] Hematology/Oncology 06/21/24 Tiera Miles MD [facility] [address] [place] [address] Family Medicine 06/21/24 Heather Cuevas, STACI Specialty Tombstone Erector Oncology 12/18/24 Slim Valadez, HUMANITIES DEPARTMENT CHAIR.DEVELOPMENT COACH [address] [place] [phone] Referring Internal Medicine 12/26/24 Glue Drier Operator Relationship Specialty Start Date End Date Elvi Llanes PA-C [address] [place] [address] 200 [place] [address] PCP - General Family Medicine 01/18/25 Ajit Herbert MD [address] [address] Urology 03/10/23 [facility] [address] [place] [address] 03/10/23 Jadon Styles DO [address] [place], [place] 796951 Hematology/Oncology 06/21/24 Tiera Miles MD [facility] [place] [address] [place], [place] [phone] Family Medicine 06/21/24 Heather Cuevas RN Specialty Tombstone Erector Oncology 12/18/24 Slim Valadez, HUMANITIES DEPARTMENT CHAIR.[facility] [address] [place] [phone] Referring Internal Medicine 12/26/24 Glue Drier Operator Relationship Specialty Start Date End Date Elvi Llanes PAMeriC [address] [place] [address] 18954 PCP - General Family Medicine 01/18/25 Ajit Herbert MD [address] [place] [address] 23647 Urology 03/10/23 [facility] [address] [place], [place] 331851 03/10/23 Jadon Styles DO [address] [place], [place] 590691 Hematology/Oncology 06/21/24 Tiear Miles MD [facility] [address] [place], [place] 428081 Family Medicine 06/21/24 Heather Cuevas RN Specialty Tombstone Erector Oncology 12/18/24 Slim Valadez, HUMANITIES DEPARTMENT CHAIR.DEVELOPMENT COACH [address] [place] [address] [phone] Referring Internal Medicine 12/26/24 Glue Drier Operator Relationship Specialty Start Date End Date Elvi Llanes PA-C [address] [place] [address] 23045 PCP - General Family Medicine 01/18/25 Ajit Herbert MD [address] [place] [address] 06144 Urology 03/10/23 [facility] [address] [place] [address] 03/10/23 Jadon Styles DO [address] [place] [address] Hematology/Oncology 06/21/24 Tiera Miles MD [facility] [address] [place] [address] Family Medicine 06/21/24 Heather Cuevas, STACI Specialty Tombstone Erector Oncology 12/18/24 Slim Valadez, HUMANITIES DEPARTMENT CHAIR.DEVELOPMENT COACH [address] [place] [address] [phone] Referring Internal Medicine 12/26/24 Glue Drier Operator Relationship Specialty Start Date End Date Elvi Llanes PA-C [address] [place] [address] 200 [place] [address] PCP - General Family Medicine 01/18/25 Ajit Herbert MD 546 [facility] [address] [place] [address] Urology 03/10/23 [facility] [address] [place] [address] 03/10/23 Jadon Styles DO [address] [place] [address] Hematology/Oncology 06/21/24 Tiera Miles MD [facility] [place] [address]40 [place] [address] Family Medicine 06/21/24 Heather Cuevas, STACI Specialty Tombstone Erector Oncology 12/18/24 Slim Valadez, HUMANITIES DEPARTMENT CHAIR.[facility] [address] [place] [address] [phone] Referring Internal Medicine 12/26/24 Glue Drier Operator Relationship Specialty Start Date End Date Elvi Llanes PA-C [address] [place] [address] 200 [place] [address] PCP - General Family Medicine 01/18/25 Ajit Herbert MD 546 [facility] [address] [place] [address] Urology 03/10/23 [facility] [address] [place] [address] 03/10/23 Jadon Styles DO [address] [place] [address] Hematology/Oncology 06/21/24 Tiera Miles MD [facility] [address] [place] [address] Family Medicine 06/21/24 Heather Cuevas, RN Specialty [employer] Oncology 12/18/24 Slim Valadez, HUMANITIES DEPARTMENT CHAIR.[facility] [address] [place] [phone] Referring Internal Medicine 12/26/24 Glue Drier Operator Relationship Specialty Start Date End Date Elvi Llanes PA-C 1261 [facility] 200 [place] [address] PCP - General Family Medicine 01/18/25 Ajit Herbert MD [address] [place] [address] 210 [place] [address] Urology 03/10/23 [facility] [address] [place] [address] 03/10/23 Jadon Styles DO [address] [place] [address] Hematology/Oncology 06/21/24 Tiera Miles MD [facility] [address] [place] [address] Family Medicine 06/21/24 Heather Cuevas RN Specialty [employer] Oncology 12/18/24 Slim Valadez, TREMAYNE.[facility] [address] [place] [phone] Referring Internal Medicine 12/26/24 Team Status: Active Member Role/Relationship Status Dates Elvi SCHULTZ PA-C Primary Care Provider Active Team Status: Inactive Member Role/Relationship Status Dates No Primary Care Physician Primary Care Provider Active Start: January 11, 2025 End: January 11, 2025 Dr. Tiera Miles MD Attending Provider Active S tart: January 11, 2025 End: January 11, 2025 Dr. Tiera Miles MD Referring Provider Active S tart: January 11, 2025 End: January 11, 2025 Team Status: Inactive Member Role/Relationship Status Dates No Primary Care Physician Primary Care Provider Active Start: January 14, 2025 End: January 14, 2025 Dr. Tiera Miles MD Attending Provider Active S tart: January 14, 2025 End: January 14, 2025 Dr. Tiera Miles MD Referring Provider Active S tart: January 14, 2025 End: January 14, 2025 Team Status: Inactive Member Role/Relationship Status Dates No Primary Care Physician Primary Care Provider Active Start: January 16, 2025 End: January 16, 2025 Dr. Tiera Miles MD Attending Provider Active S tart: January 16, 2025 End: January 16, 2025 Dr. Tiera Miles MD Referring Provider Active S tart: January 16, 2025 End: January 16, 2025 Team Status: Inactive Member Role/Relationship Status Dates Dr. Tiera Miles MD Attending Provider Active S tart: January 18, 2025 End: January 18, 2025 Dr. Tiera Miles MD Referring Provider Active S tart: January 18, 2025 End: January 18, 2025 Elvi SCHULTZ PA-C Primary Care Provider Active Start: January 18, 2025 End: January 18, 2025 Team Status: Inactive Member Role/Relationship Status Dates Dr. Celso Hernández DO Attending Provider Active Start: January 18, 2025 End: January 18, 2025 [facility] PA, PA-C Primary Care Provider Active Start: January 18, 2025 End: January 18, 2025 [facility] PA, PA-C Referring Provider Active Start: January 18, 2025 End: January 18, 2025 Team Status: Active Member Role/Relationship Status Dates Dr. Celso Hernández DO Attending Provider Active Start: January 18, 2025 Dr. Celso Hernández DO Other Provider Active St art: January 18, 2025 [facility] PA, PA-C Primary Care Provider Active Start: January 18, 2025 [facility] PA, PA-C Referring Provider Active Start: January 18, 2025 Team Status: Inactive Member Role/Relationship Status Dates Dr. Tiera Miles MD Attending Provider Active S tart: January 21, 2025 End: January 21, 2025 Dr. Tiera Miles MD Referring Provider Active S tart: January 21, 2025 End: January 21, 2025 [facility] PA, PA-C Primary Care Provider Active Start: January 21, 2025 End: January 21, 2025 Team Status: Inactive Member Role/Relationship Status Dates Dr. Tiera Miles MD Attending Provider Active S tart: January 23, 2025 End: January 23, 2025 Dr. Tiera Miles MD Referring Provider Active S tart: January 23, 2025 End: January 23, 2025 [facility] PA, PA-C Primary Care Provider Active Start: January 23, 2025 End: January 23, 2025 Team Status: Inactive Member Role/Relationship Status Dates [facility] PA, PA-C Primary Care Provider Active Start: January 25, 2025 End: January 25, 2025 Dr. Melissa Silvestre DO Attending Provider Active Start: January 25, 2025 End: January 25, 2025 Dr. Melissa Silvestre DO Emergency Provider Active Start: January 25, 2025 End: January 25, 2025 Team Status: Inactive Member Role/Relationship Status Dates Dr. Tiera Miles MD Attending Provider Active S tart: January 28, 2025 End: January 28, 2025 Dr. Tiera Miles MD Referring Provider Active S tart: January 28, 2025 End: January 28, 2025 Elvi SCHULTZ, PA-C Primary Care Provider Active Start: January 28, 2025 End: January 28, 2025 Team Status: Inactive Member Role/Relationship Status Dates Dr. Tiera Miles MD Attending Provider Active S tart: January 30, 2025 End: January 30, 2025 Dr. Tiera Miles MD Referring Provider Active S tart: January 30, 2025 End: January 30, 2025 Elvi SCHULTZ, PA-C Primary Care Provider Active Start: January 30, 2025 End: January 30, 2025 Team Status: Inactive Member Role/Relationship Status Dates Elvi SCHULTZ, PA-C Primary Care Provider Active Start: February 18, 2025 End: February 18, 2025 Dr. Kingsley Kunz DO Attending Provider Active Start: February 18, 2025 End: February 18, 2025 Dr. Kingsley Kunz DO Emergency Provider Active Start: February 18, 2025 End: February 18, 2025 Team Status: Inactive Member Role/Relationship Status Dates Elvi SCHULTZ, PA-C Primary Care Provider Active Start: February 20, 2025 End: February 20, 2025 Elvi SCHULTZ, PA-C Referring Provider Active Start: February 20, 2025 End: February 20, 2025 Shade SCHULTZ PA Attending Provider Active Start: February 20, 2025 End: February 20, 2025 Glue Drier Operator Relationship Specialty Start Date End Elvi Llanes PA-C 1261 [facility] 200 [place] [address] PCP - General Family Medicine 01/18/25 Ajit Herbert MD 546 [facility] 210 [place], [place] [id number] Urology 03/10/23 [facility] [address] [place], [place] [address] 03/10/23 Jadon Styles DO [address] [place] [address] Hematology/Oncology 06/21/24 Tiera Miles MD [facility] [address] [place] [address] Family Medicine 06/21/24 Heather Cuevas, STACI Specialty [employer] Oncology 12/18/24 Slim Valadez, HUMANITIES DEPARTMENT CHAIR.[employer]ELOPMENT COACH [address] [place] [phone] Referring Internal Medicine 12/26/24 Glue Drier Operator Relationship Specialty Start Date End Date Elvi Llanes PA-C [address] [place] [address] 200 [place] [address] PCP - General Family Medicine 01/18/25 Ajit Herbert MD 546 [facility] [address] [place] [address] Urology 03/10/23 [facility] [address] [place] [address] 03/10/23 Jadon Styles DO [address] [facility] [place] [address] Hematology/Oncology 06/21/24 Tiera Miles MD [facility] [address] [place] [address] Family Medicine 06/21/24 Heather Cuevas, STACI Specialty [employer] Oncology 12/18/24 Slim Valadez, HUMANITIES DEPARTMENT CHAIR.[employer]ELOP[employer] [address] [place] [phone] Referring Internal Medicine 12/26/24 Glue Drier Operator Relationship Specialty Start Date End Date Elvi Llanes PA-C [address] [place] [address] 200 [place] [address] PCP - General Family Medicine 01/18/25 Ajit Herbert MD [address] 8[address] Urology 03/10/23 [facility] [address] [place] [address] 03/10/23 Jadon Styles DO [address] [place] [address] Hematology/Oncology 06/21/24 Tiera Miles MD [facility] [address] [place] [address] Family Medicine 06/21/24 Heather Cuevas RN Specialty [employer] Oncology 12/18/24 Slim Valadez, HUMANITIES DEPARTMENT CHAIR.[facility] [address] [place] [phone] Referring Internal Medicine 12/26/24 Glue Drier Operator Relationship Specialty Start Date End Date Elvi Llanes PA-C [address] [place] [address] PCP - General Family Medicine 01/18/25 Ajit Herbert MD [address] [place] [address] Urology 03/10/23 [facility] [address] [place], [place] [address] 03/10/23 Jadon Styles DO [address] [place], [place] [id number] Hematology/Oncology 06/21/24 Tiera Miles MD [facility] [address] [place], [place] [address]31 Family Medicine 06/21/24 Heather Cuevas RN Specialty [employer] Oncology 12/18/24 Slim Valadez, HUMANITIES DEPARTMENT CHAIR.[facility] [address] [place] [address] [phone] Referring Internal Medicine 12/26/24 Glue Drier Operator Relationship Specialty Start Date End Date Elvi Llanes, PAMeriC [address] [place] [address] 200 [place] [address] PCP - General Family Medicine 01/18/25 Ajit Herbert MD [address] [place] [address] 210 [place] [address] Urology 03/10/23 [facility] [address] [facility], [place] [address] 03/10/23 Jadon Styles DO [address] [place] [address] Hematology/Oncology 06/21/24 Tiera Miles MD [facility] [address] [place] [address] Family Medicine 06/21/24 Heather Cuevas, RN Specialty [employer] Oncology 12/18/24 Slim Valadez, HUMANITIES DEPARTMENT CHAIR.[employer]MENT [employer] [address] [place] [address] [phone] Referring Internal Medicine 12/26/24 Glue Drier Operator Relationship Specialty Start Date End Date Elvi Llanes PA-C [address] [place] [address] 200 [place] [address] PCP - General Family Medicine 01/18/25 Ajit Herbert MD [address] [place] [address] 210 [place] [address] Urology 03/10/23 [facility] [address] [place] [address] 03/10/23 Jadon Styles DO [address] [place] [address] Hematology/Oncology 06/21/24 Tiera Miles MD [facility] [place] [address] [place] [address] Family Medicine 06/21/24 Heather Cuevas, STACI Specialty [employer] Oncology 12/18/24 Slim Valadez, HUMANITIES DEPARTMENT CHAIR.DEVELOPMENT COACH [address] [place] [address] [phone] Referring Internal Medicine 12/26/24 Glue Drier Operator Relationship Specialty Start Date End Date Elvi Llanes PALea [address] [place] [address] 200 [place] [address] PCP - General Family Medicine 01/18/25 Ajit Herbert MD [address] [address] Urology 03/10/23 [facility] [address] [place], [place] [address] 03/10/23 Jadon Styles DO [address] [place], [place] [id number] Hematology/Oncology 06/21/24 Tiera Miles MD [facility] [place] [address] [facility], [place] [address] Family Medicine 06/21/24 Heather Cuevas RN Specialty [employer] Oncology 12/18/24 Slim Valadez, HUMANITIES DEPARTMENT CHAIR.DEVELOPMENT COACH [address] [place] [phone] Referring Internal Medicine 12/26/24 Glue Drier Operator Relationship Specialty Start Date End Date Elvi Llanes PAMeriC 1261 [facility] 200 [place] [address] PCP - General Family Medicine 01/18/25 Ajit Herbert MD [address] 350[address] Urology 03/10/23 [facility] [address] [place] [address] 03/10/23 Jadon Styles DO [address] [place] [address] Hematology/Oncology 06/21/24 Tiera Miles MD [facility] [address] [place] [address] Family Medicine 06/21/24 Heather Cuevas, RN Specialty [employer] Oncology 12/18/24 Slim Valadez, HUMANITIES DEPARTMENT CHAIR.DEVELOPMENT COACH [address] [place] [phone] Referring Internal Medicine 12/26/24 Glue Drier Operator Relationship Specialty Start Date End Date [place]C [address] [place] [address] 200 [place] [address] PCP - General Family Medicine 01/18/25 Ajit Herbert MD [address] [place] [address] 210 [place] [address] Urology 03/10/23 [facility] [address] [place] [address] 03/10/23 Jadon Styles DO [address] [place] [address] Hematology/Oncology 06/21/24 Tiera Miles MD [facility] [address] [place] [address] Family Medicine 06/21/24 Heather Cuevas, RN Specialty [employer] Oncology 12/18/24 Slim Valadez, HUMANITIES DEPARTMENT CHAIR.DEVELOPMENT COACH [address] [place] [address] [phone] Referring Internal Medicine 12/26/24 Glue Drier Operator Relationship Specialty Start Date End Date Elvi Llanes PA-C [address] [place] [address] 200 [place] [address] PCP - General Family Medicine 01/18/25 Ajit Herbert MD [address] [place] [address] Urology 03/10/23 [facility] [address] [place], [place] [address] 03/10/23 Jadon Styles DO [address] [place] [address] Hematology/Oncology 06/21/24 Tiera Miles MD [facility] [place] [address] [place] [address] Family Medicine 06/21/24 Heather Cuevas, STACI Specialty [employer] Oncology 12/18/24 Slim Valadez, HUMANITIES DEPARTMENT CHAIR.[facility] [address] [place] [address] [phone] Referring Internal Medicine 12/26/24 Glue Drier Operator Relationship Specialty Start Date End Date Elvi Llanes PA-C [address] [place] [address] PCP - General Family Medicine 01/18/25 Ajit Herbert MD [address] [address] Urology 03/10/23 [facility] [address] [place] [address] 03/10/23 Jadon Styles DO [address] [place] [address] Hematology/Oncology 06/21/24 Tiera Miles MD [facility] [address] [place] [address] Family Medicine 06/21/24 Heather Cuevas, STACI Specialty [employer] Oncology 12/18/24 Slim Valadez, HUMANITIES DEPARTMENT CHAIR.[facility] [address] [place] [address] [phone] Referring Internal Medicine 12/26/24 Glue Drier Operator Relationship Specialty Start Date End Date Elvi Llanes PA-C [address] [place] [address] 200 [place] [address] PCP - General Family Medicine 01/18/25 Ajit Herbert MD [address] [place] [address] 210 [place] [address] Urology 03/10/23 [facility] [address] [place] [address] 03/10/23 Jadon Styles DO [address] [place] [address] Hematology/Oncology 06/21/24 Tiera Miles MD [facility] [address] [place] [address] Family Medicine 06/21/24 Heather Cuevas RN Specialty [employer] Oncology 12/18/24 Slim Valadez, HUMANITIES DEPARTMENT CHAIR.DEVELOPMENT COACH [address] [place] [address] [phone] Referring Internal Medicine 12/26/24 Glue Drier Operator Relationship Specialty Start Date End Date Elvi Llanes PA-C [address] [place] [address] 200 [place] [address] PCP - General Family Medicine 01/18/25 Ajit Herbert MD [address] [place] [address] 210 [place] [address] Urology 03/10/23 [facility] [address] [place] [address] 03/10/23 Jadon Styles DO [address] [facility] [place] [address] Hematology/Oncology 06/21/24 Tiera Miles MD [facility] [address] [place] [address] Family Medicine 06/21/24 Heather Cuevas RN Specialty [employer] Oncology 12/18/24 Slim Valadez, HUMANITIES DEPARTMENT CHAIR.DEVELOPMENT COACH [address] [place] [phone] Referring Internal Medicine 12/26/24 Glue Drier Operator Relationship Specialty Start Date End Date Elvi Llanes PA-C [address] [place] [address] 200 [place] [address] PCP - General Family Medicine 01/18/25 Ajit Herbert MD 546 [facility] [address] [place] [address] Urology 03/10/23 [facility] [address] [place] [address] 03/10/23 Jadon Styles DO [address] [place] [address] Hematology/Oncology 06/21/24 Tiera Miles MD [facility] [address] [place], [place] [address]211 Family Medicine 06/21/24 Heather Cuevas RN Specialty [employer] Oncology 12/18/24 Slim Valadez, HUMANITIES DEPARTMENT CHAIR.[facility] [address] [place] [phone] Referring Internal Medicine 12/26/24 Team Status: Active Member Role/Relationship Status Dates Elvi SCHULTZ PA-C Primary care physician Active Team Status: Inactive Member Role/Relationship Status Dates Elvi SCHULTZ PA-C Primary care physician Active Start: July 02, 2025 End: July 02, 2025 Elvi SCHULTZ PA-C Referring Provider Active Start: July 02, 2025 End: July 02, 2025 MARION Moy Attending physician Active Start: July 02, 2025 End: July 02, 2025 Team Status: Inactive Member Role/Relationship Status Dates Elvi SCHULTZ PA-C Primary care physician Active Start: July 05, 2025 End: July 05, 2025 Elvi SCHULTZ PA-C Referring Provider Active Start: July 05, 2025 End: July 05, 2025 SAMANTA Adams Attending physician Active Start: July 05, 2025 End: July 05, 2025 Team Status: Inactive Member Role/Relationship Status Dates Elvi SCHULTZ PA-C Primary care physician Active Start: July 09, 2025 End: July 09, 2025 Elvi SCHULTZ PA-C Referring Provider Active Start: July 09, 2025 End: July 09, 2025 SAMANTA Adams Attending physician Active Start: July 09, 2025 End: July 09, 2025 Goals (unrecognized section and content) Goals may be documented in a n alternate sectionGoals may be documented in an alternate sectionGoals may be documented in an alternate sectionGoals may be documented in an alternate sectionGoals may be documented in an alternate sectionGoals may be documented in an alternate section FOR RECORDS PERTAINING TO PATIENTS WHO ARE OR HAVE BEEN ENROLLED IN A CHEMICAL DEPENDENCY/SUBSTANCEABUSE PROGRAM, SOME INFORMATION MAY BE OMITTED. This clinical summary was aggregated from multiple sources. Caution should be exercised in using it in the provision of clinical care. This summary normalizes information from multiple sources, and as a consequence, information in this document may materially change the coding, format and clinical context of patient data. In addition, data may be omitted in some cases. CLINICAL DECISIONS SHOULD BE BASED ON THE PRIMARY CLINICAL RECORDS. [facility] [employer] [facility]. provides no warranty or guarantee of the accuracy or completeness of information in this document.
[2025-07-13 10:47] LABS: Hematocrit 33.8 % (37-47); Hemoglobin 11.1 g/dL (12.0-15.0); Immature Granulocytes Count 0.020 X10^3/uL (0.0-0.0); Mean Corp Hgb Conc 32.8 g/dL (32-36); Mean Corpuscular Volume 93.6 fL (81-99); Mean Platelet Vol. 9.1 fl (6.2-12.0); NRBC Flagged by Analyzer 0 % (0-5); Platelet Count 119 K/mm3 (150-450); RBC Distribution Width CV 12.1 % (11.6-14.6); RBC Distribution Width SD 41.7 fl (35.1-43.9); Red Blood Count 3.61 M/mm3 (4.2-5.4); White Blood Count 5.9 K/mm3 (4.4-11.0)
[2025-07-13] MEDS: 0.9% Normal Saline (1000mL) 1,000 ML 1000 ML IV (10:48)
--- NOTE | 2025-07-13 10:55 | RAD_ITS ---
PROCEDURE: CHEST PA AND LATERAL 07/13/2025 REASON FOR EXAM: COUGH TECHNIQUE: Procedure Code: RADCXR Modality: DX Procedure: CHEST PA AND LATERAL COMPARISON: 02/18/2025 FINDINGS: Chest port in place. Cardiomegaly. Tortuous aorta. No lobar consolidation pneumothorax or effusion. Multiple compression fractures throughout the lower thoracic and upper lumbar spine which appears stable. RAD/Chest PA and Lateral IMPRESSION: No acute cardiopulmonary process. No significant interval change. Stable cardiomegaly. Reading Location: [id number]
[2025-07-13 11:05] LABS: Anion Gap 9 (5-15); BUN 18 mg/dL (4-19); BUN/Creat Ratio 21.5 RATIO (10-20); Calcium,Total 8.8 mg/dL (7.6-11.0); Carbon Dioxide 25.8 mmol/L (21.0-32.0); Chloride 104 mmol/L (98-108); Estimated Creatinine Clearance 72.39 ml/min (50-250); Glucose 83 mg/dL (70-99); Potassium 4.1 mmol/L (3.3-5.1)
[2025-07-13 12:19] VITALS: BP 131/83; PULSE 67; RESP 18; O2SAT 98
[2025-07-13 13:09] VITALS: BP 153/71; PULSE 79; RESP 18; TEMP 36.4; O2SAT 99
== END 2025-07-13 13:09 | disposition home or self-care (01) ==
PROVIDERS: Emergency Provider Emergency Medicine; PCP Nurse Practitioner Family; Visit Provider Emergency Medicine
DX: R55 Syncope and collapse (principal); C90.00 Multiple myeloma not having achieved remission; R53.1 Weakness; Z79.899 Other long term (current) drug therapy; Z92.21 Personal history of antineoplastic chemotherapy; Z87.891 Personal history of nicotine dependence
CPT/HCPCS: 36591; 71046; 80048; 85025; 93005; 96360; 99283; A4216

== ENCOUNTER 2025-09-18 13:18 | Emergency (ER) | payer MEDICARE, MEDICAID, SELFPAY ==
[2025-09-18 13:20] VITALS: BP 145/96; PULSE 98; RESP 18; TEMP 36.8; O2SAT 100; BMI 36.8
[2025-09-18 13:24] VITALS: BP 145/96; PULSE 98; RESP 16; TEMP 36.8; O2SAT 100
[2025-09-18] MEDS: 0.9% Normal Saline (1000mL) 1,000 ML 1000 ML IV (14:20)
--- NOTE | 2025-09-18 14:24 | EDS_ITS ---
HPI History of Present Illness Chief Complaint: General Illness Informant: patient Onset/Context/Timing Onset: Days Context: Gradual Onset Timing: Continuous Current Severity: Mild Maximum Severity: Mild Narrative Narrative: 60-year-old female currently being treated for multiple myeloma. She gets monthly chemo infusions and takes a monthly chemo pill. Basically she had URI symptoms several days ago and since started having nausea and vomiting x 2 yesterday. She denies hematemesis. No diarrhea. No melena. No dysuria. No fever. She believes she needs to be hydrated. Denies any abdominal pain. Prior similar symptoms: Yes Recent Illness/Hospitalization: No [facility] Medical History Multiple myeloma History of cancer Post-menopausal Cancer Depression Anxiety Walker as ambulation aid Anemia Back pain Injury of head and neck Gastric reflux Leg cramps 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 health care History of pneumococcal infection Headache, migraine Carpal tunnel syndrome history of bone fracture Back problem Arthritis Seasonal allergies Endometriosis Screening for intestinal cancer Iron deficiency anemia Renal cell cancer Former tobacco use Obesity Pancreatitis URI, acute History of nausea and vomiting History of abdominal pain Home Medications ?Medication ?Instructions ?Recorded ?Last Taken ?Type omeprazole 40 mg capsule,delayed 40 mg PO DAILY Unknown History release benzonatate 200 mg capsule 200 mg PO TID PRN cough #20 caps 07/02/25 Unknown Rx fentanyl 50 mcg/hr transdermal 1 patch transdermal Q3D 07/02/25 Unknown History patch acyclovir 400 mg tablet 400 mg PO BID 07/05/25 Unkno wn History buspirone 7.5 mg tablet 7.5 mg PO BID 07/05/25 Unkno wn History escitalopram oxalate 10 mg tablet 20 mg PO DAILY 07/05 Unknown History fentanyl 50 mcg/hr transdermal 1 patch transdermal Q72 H 07/05/25 Unknown History patch ipratropium bromide 42 mcg (0.06 2 spray intranasal TI D-QID PRN 07/05/25 Unknown Rx %) nasal spray allergy symptoms #15 mL lorazepam 0.5 mg tablet 0.25 mg PO BID 07/05/25 Unkn own History lorazepam 0.5 mg tablet 0.5 mg PO QDAY 07/05/25 Unkn own History ondansetron HCl 8 mg tablet 4 mg PO 4X/DAY PRN nausea 07/05/25 Unknown History pomalidomide 1 mg capsule 1 mg PO QAM 07/05/25 Unknown History rizatriptan 10 mg tablet See Rx Instructions PO .COMP MITCH 07/05/25 Unknown History Allergy/AdvReac Type Severity Reaction Status Date / Time latex Allergy Mild rash Verified 09/18/25 13:24 Penicillins Allergy Unknown Verified 09/18/25 13:24 adhesive tape AdvReac Rash Verified 09/18/25 13:24 Family History Brother Asthma Malignant hyperthermia due to anesthesia Hypertension Grandfather Colon cancer Mother Heart disease Thyroid disorder COPD (chronic obstructive pulmonary disease) Arthritis Anemia Sister Breast cancer Hypertension Thyroid disorder Hypothyroid Arthritis Father Bleeding disorder Cancer Lung Myelodysplastic syndrome Chronic lymphocytic leukemia Alcohol abuse Aunt Myocardial infarction Surgical History History of esophagogastroduodenoscopy (EGD) History of back surgery s/p kidney cancer Status post endometrial ablation Social History household members: children Smoking Status: Former smoker alcohol intake: current alcohol intake frequency: holidays/special occasions only what type of physical activity do you participate in: walking, bicycling, aerobics and weight training do you feel safe at home: Yes ROS ROS ED ROS Narrative Nausea and vomiting. Constitutional Constitutional ED: Denies chills or fever(s) Eyes Eyes: Denies blurry vision ENT ENT ED: Denies ear pain Cardiovascular Cardiovascular: Denies chest pain Respiratory/Chest Respiratory/Chest: Denies cough Gastrointestinal Gastrointestinal: Reports nausea and vomiting; Denies abdominal pain or diarrhea Genitourinary Genitourinary ED: Denies dysuria or hematuria Musculoskeletal Musculoskeletal: Denies arthralgias Integumentary Denies abscess or Abrasions Neurologic Neurologic: Denies headache(s) Psychiatric Psychiatric: Denies anxiety or depression Endocrine Endocrinology: Denies cold intolerance Hematologic/Lymphatic Hematologic/Lymphatic: Reports none Allergic/Immunologic Allergic/Immunologic ED: Denies mouth swelling, tongue swelling or urticaria EXAM Physical Exam Narrative Exam Narrative: 60-year-old female sitting upright in bed vital signs are stable afebrile. Pulse ox 100% on room air no signs hypoxia. H EENT exam pupils round react light. Moist pink membranes. Neck nontender no JVD. Lungs clear to auscultation bilaterally. Heart regular rhythm rate about 95 no murmur. Chest wall ribs nontender. Abdomen soft nontender. Moving all 4 extremities. Calves are nontender without edema or cords. Normal hone operator strength. Normal dorsi p lantarflexion. Neurologic exam she is awake alert. Answering questions following commands. Const Vital Signs: 09/18/25 13:20 09/18/25 13:24 09/18/25 13:45 Temperature 98.2 F 98.2 F Temperature Source Oral Oral Pulse Rate 98 98 Respiratory Rate 18 16 Respiratory Effort Normal Non-Labored Respiratory Pattern Normal Blood Pressure 145/96 H 145/96 H Blood Pressure Mean 112 112 Pulse Ox 100 100 Oxygen Delivery Method Room Air Room Air 09/18/25 15:39 Temperature Temperature Source Pulse Rate 86 Respiratory Rate 18 Respiratory Effort Respiratory Pattern Blood Pressure 141/86 H Blood Pressure Mean 104 Pulse Ox 96 Oxygen Delivery Method MDM MDM MDM Narrative Medical decision making narrative: 60-year-old female history of multiple myeloma nausea and vomiting yesterday. Some given IV fluids and IV Zofran. Screening labs to be obtained. Exam otherwise benign. This may all be secondary to dehydration. Repeat exam patient is doing well at 4:18 PM patient clinically looks well. She is comfortable being discharged home. We went over her lab results and chest x- ray. History & Record Review Discussion w/independent historian: Patient Additional record(s) reviewed:: Prior outpatient record, Prior ED visit and Prior labs Lab Data Attestation: I reviewed the patient's lab results. Lab results narrative: CBC shows white count of 5. H1.636. Platelets 207. Electrolytes show gap of 6. BUN and creatinine 18 and 0.8. Glucose 88 Labs: Laboratory Results - last 24 hr 09/18/25 14:20 WBC 5.5 RBC 3.89 L Hgb 11.6 L Hct 36.0 L MCV 92.5 MCH 29.8 MCHC 32.2 RDW Std Deviation 41.6 RDW Coeff of Marcia 12.3 Plt Count 207 MPV 10.0 Immature Gran % (Auto) 0.200 Neut % (Auto) 51.1 Lymph % (Auto) 24.0 Steele % (Auto) 17.5 H Eos % (Auto) 5.8 H Baso % (Auto) 1.4 H Absolute Neuts (auto) 2.8 Absolute Lymphs (auto) 1.33 Nucleated RBC % 0 Sodium 139 Potassium 4.9 Chloride 104 Carbon Dioxide 29.4 Anion Gap 6 BUN 18 Creatinine 0.88 Estim Creat Clear Calc 67.83 Est GFR (MDRD) Non-Af 74 BUN/Creatinine Ratio 20.3 H Glucose 88 Calcium 9.0 Radiography Chest X-Ray - ED: 2 View, Read by Radiologist, Heart, Lungs, Mediastinum, Bony Structures, No Acute Disease and Chronic Changes Diagnostic Testing: Clinical Impression(s) from Imaging Studies Chest X-Ray 09/18/25 14:30 IMPRESSION: No acute abnormality is seen. Reading Location: [facility] Chest x-ray, 2 views, AP and lateral interpreted by myself and radiology shows chronic changes no acute process. Normal cardiac silhouette. Normal lung mccord. No pneumonia. Right-sided Mediport. Discharge Plan Triage Chief Complaint: General Illness ED Provider: Surjit Santizo Dx/Rx/DC Orders Clinical Impression: Nausea & vomiting, Hx of multiple myeloma, Chemotherapy adverse reaction Instructions: Chemo Nausea Vomiting Prescriptions: No Action fentanyl 50 mcg/hr patch 72 hour 1 patch transdermal Q3D benzonatate 200 mg capsule 200 mg PO TID PRN (Reason: cough) Qty: 20 0RF fentanyl 50 mcg/hr patch 72 hour 1 patch transdermal Q72H rizatriptan 10 mg tablet See Rx Instructions PO .COMPLEX Rx Instructions: take 1 tab at onset of headache; if no relief may repeat 1 tab after at least 2 hrs; max = 3 tabs/24 hr PO acyclovir 400 mg tablet 400 mg PO BID lorazepam 0.5 mg tablet 0.5 mg PO QDAY lorazepam 0.5 mg tablet 0.25 mg PO BID buspirone 7.5 mg tablet 7.5 mg PO BID pomalidomide 1 mg capsule 1 mg PO QAM Patient Comments: 21 days with 7 day break ipratropium bromide 42 mcg (0.06 %) spray,non-aerosol 2 spray intranasal TID-QID PRN (Reason: allergy symptoms) Qty: 15 0RF Rx Instructions: administer into each nostril omeprazole 40 mg capsule,delayed release(DR/EC) 40 mg PO DAILY escitalopram oxalate 10 mg tablet 20 mg PO DAILY ondansetron HCl 8 mg tablet 4 mg PO 4X/DAY PRN Primary Care Provider: Ysabel Monsalve Referrals: Curtis Styles DO [Med Staff - Active Staff, Oncology] - As Needed Ysabel Monsalve, [facility] [Primary Care Provider, Internal Medicine] Activity Restrictions/Additional Instructions: Plenty of fluids and rest. Your labs and chest x-ray look good today. Follow-up with your oncologist or primary care provider as needed. Return if feeling worse. Use your home nausea medications as needed. Print Language: Lao Disposition Disposition: Home, Self Care
--- NOTE | 2025-09-18 14:30 | RAD_ITS ---
PROCEDURE: CHEST PA AND LATERAL 09/18/2025 REASON FOR EXAM: COUGH TECHNIQUE: Procedure Code: RADCXR Modality: DX Procedure: CHEST PA AND LATERAL COMPARISON: July 13, 2025. FINDINGS: Hardware: A right-sided port a catheter is seen with the tip at the junction of the superior vena cava and right atrium. Heart: The heart size is upper limits of normal. Mediastinum: The mediastinal contour is unremarkable. Lungs: Lungs are clear. Bones: Demineralization of the thoracic vertebrae with the almost complete collapse of lower dorsal vertebrae. Increased kyphosis. Degenerative changes of the shoulders. RAD/Chest PA and Lateral IMPRESSION: No acute abnormality is seen. Reading Location: [facility]
[2025-09-18 14:39] LABS: Hematocrit 36.0 % (37-47); Hemoglobin 11.6 g/dL (12.0-15.0); Immature Granulocytes Count 0.010 X10^3/uL (0.0-0.0); Mean Corp Hgb Conc 32.2 g/dL (32-36); Mean Corpuscular Volume 92.5 fL (81-99); Mean Platelet Vol. 10.0 fl (6.2-12.0); NRBC Flagged by Analyzer 0 % (0-5); Platelet Count 207 K/mm3 (150-450); RBC Distribution Width CV 12.3 % (11.6-14.6); RBC Distribution Width SD 41.6 fl (35.1-43.9); Red Blood Count 3.89 M/mm3 (4.2-5.4); White Blood Count 5.5 K/mm3 (4.4-11.0)
[2025-09-18 15:02] LABS: Anion Gap 6 (5-15); BUN 18 mg/dL (4-19); BUN/Creat Ratio 20.3 RATIO (10-20); Calcium,Total 9.0 mg/dL (7.6-11.0); Carbon Dioxide 29.4 mmol/L (21.0-32.0); Chloride 104 mmol/L (98-108); Estimated Creatinine Clearance 67.83 ml/min (50-250); Glucose 88 mg/dL (70-99); Potassium 4.9 mmol/L (3.3-5.1)
[2025-09-18 15:39] VITALS: BP 141/86; PULSE 86; RESP 18; O2SAT 96
[2025-09-18 16:22] VITALS: BP 141/86; PULSE 86; RESP 18; TEMP 36.8; O2SAT 96
== END 2025-09-18 16:31 | disposition home or self-care (01) ==
PROVIDERS: Emergency Provider Emergency Medicine; PCP Nurse Practitioner Family; Visit Provider Emergency Medicine
DX: R11.2 Nausea with vomiting, unspecified (principal); C90.00 Multiple myeloma not having achieved remission; Z87.891 Personal history of nicotine dependence
CPT/HCPCS: 36591; 71046; 80048; 85025; 96361; 96374; 99282; A4216; J2405